=== PATIENT | male | born 1945 | race Caucasian/White ===

== ENCOUNTER 2017-11-13 17:28 | Emergency (ER) | payer OTHER ==
--- OUTSIDE RECORDS SUMMARY | 2017-11-13 17:31 | XMS REPORT ---
:1945 Author Organization eClinicalWorks Care Team Providers Name Role Phone Home De La Cruz Provider Role Unavailable Allergies No Known Allergies Problems Problem Type Condition Code Onset Dates Condition Status Assessment Need for home health care Z74.2 Active Assessment Health half-way, active care Z78.9 Active coordination Assessment Gastrointestinal hemorrhage, K92.2 Active unspecified gastrointestinal hemorrhage type Assessment Thoracic aortic aneurysm without I71.2 Active rupture Problem Thoracic aortic aneurysm without I71.2 Active rupture Problem Hypercoagulable state D68.59 Active Assessment Chronic obstructive pulmonary J44.9 Active disease Problem Vitamin B 12 deficiency E53.8 Active Problem Chronic back pain M54.9 Active Problem 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 intervertebral disc Problem Benign hypertrophy of prostate N40.0 Active Problem Depression with anxiety F41.8 Active Problem Hemiplegia and hemiparesis I69.854 Active following other cerebrovascular disease affecting left non-dominant side Problem Cerebrovascular accident I63.9 Active Problem 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 Problem 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 Problem 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 Problem Generalized weakness R53.1 Active Problem Gastrointestinal hemorrhage, K92.2 Active unspecified gastrointestinal hemorrhage type Problem Memory loss R41.3 Active Problem Anticoagulated Z79.01 Active Assessment Hyperlipidemia, mixed E78.2 Active Problem Physical debility R53.81 Active Problem Aortic valve stenosis I35.0 Active Assessment Insomnia G47.00 Active Problem H/O TIA (transient ischemic attack) Z86.73 Active and stroke Assessment 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 Problem Aortic aneurysm, abdominal I71.4 Active Assessment Depression with anxiety F41.8 Active Problem Nicotine dependence F17.200 Active Assessment H/O TIA (transient ischemic attack) Z86.73 Active and stroke Problem H/O fall Z91.81 Active Assessment Aortic aneurysm, abdominal I71.4 Active Problem Occlusion and stenosis of carotid I65.29 Active artery Assessment Hypercoagulable state D68.59 Active Problem Insomnia G47.00 Active Assessment Peripheral vascular disease I73.9 Active Problem Tremor R25.1 Active Assessment Benign essential HTN I10 Active Problem Peripheral vascular disease I73.9 Active Assessment Physical debility R53.81 Active Problem Hyperlipidemia, mixed E78.2 Active Assessment Generalized weakness R53.1 Active Problem Chronic obstructive pulmonary J44.9 Active disease Problem Vitamin D deficiency E55.9 Active Problem Benign essential HTN I10 Active Medications Medication Code Code Instructions Start End Status Dosage System Date Date ProAir HFA [facility] 61341762275 108 (90 Base) Active 2 puffs as MCG/ACT needed Inhalation every 6 hrs Prilosec [facility] 98473281095 20 MG Orally Active 1 capsule Once a day Lipitor [facility] 99620420908 10 MG Orally Active 1 tablet Once a day Vitamin D3 [facility] 96806751726 400 UNIT Orally Active 2 tablets Once a day Aspir-81 [facility] 42700256252 81 MG Orally Active 1 tablet Once a day Topamax [facility] 43449696143 25 MG Orally Active 1 tablet Once a day Breo Ellipta [facility] 84882075688 200-25 MCG/INH Active 1 puff Inhalation Once a day Lisinopril [facility] 49569815306 40 MG Orally Active 1 tablet Once a day Warfarin Sodium [facility] 00321447288 7.5 MG Orally Active 1 tablet Once a day Clonidine HCl [facility] 24782342429 0.1 MG Orally Active 1 tablet Twice a day at bedtime Amitriptyline HCl [facility] 30465585592 50 MG Orally Active 1 tablet Once a day Zanaflex [facility] 98415225810 4 MG Orally Active 1 tablet Three times a as needed day Primidone [facility] 91872684628 250 MG Orally Active 1 tablet Three times a day Norvasc [facility] 42745674444 5 MG Orally Active 1 tablet Once a day Results No Known Results Summary Purpose eClinicalWorks Submission
--- OUTSIDE RECORDS SUMMARY | 2017-11-13 17:31 | XMS REPORT ---
:1945 Author Organization eClinicalWorks Care Team Providers Name Role Phone Home De La Cruz Provider Role Unavailable Allergies No Known Allergies Problems Problem Type Condition Code Onset Dates Condition Status Assessment Benign essential HTN I10 Active Problem Thoracic aortic aneurysm without I71.2 Active rupture Problem Hypercoagulable state D68.59 Active Problem Vitamin B 12 deficiency E53.8 Active [...] loss R41.3 Active Problem Anticoagulated Z79.01 Active Problem Physical debility R53.81 Active Problem Aortic valve stenosis I35.0 Active Problem H/O TIA (transient ischemic attack) Z86.73 Active and stroke Problem Aortic aneurysm, abdominal I71.4 Active Problem Nicotine dependence F17.200 Active Problem H/O fall Z91.81 Active Problem Occlusion and stenosis of carotid I65.29 Active artery Problem Insomnia G47.00 Active Problem Tremor R25.1 Active Problem Peripheral vascular disease I73.9 Active Problem Hyperlipidemia, mixed E78.2 Active Problem Chronic obstructive pulmonary J44.9 Active disease Problem Vitamin D deficiency E55.9 Active Problem Benign essential HTN I10 Active Medications Medication Code System Code Instructions Start Date End Date Status Dosage Lisinopril [facility] 39129314966 40 MG Orally Once Active 1 tablet a day Results No Known Results Summary Purpose eClinicalWorks Submission
--- OUTSIDE RECORDS SUMMARY | 2017-11-13 17:31 | XMS REPORT | Clinical Summary ---
:1945 Author Organization [facility] Address [address] [place] [address] Phone Care Team Providers Name Role Phone Unavailable Primary Care Provider Unavailable Allergies Not on File Current Medications Not on file Active Problems Not on file Encounters Date Type Specialty Care Team Description 11/10/2017 Outside Orders Central Scheduling Christian Hdz Nonrheumatic aortic MD Rik valve stenosis (Primary Dx) after 11/12/2016 Social History Tobacco Use Types Packs/Day Years Used Date Never Assessed Sex Assigned at Date Recorded Not on file Last Filed Vital Signs Not on file Plan of Treatment Date Type Specialty Care Team Description 11/19/2017 Appointment Radiology Christian Hdz MD [address] [facility] [address] [place] [address] [phone] 11/19/2017 Appointment Radiology Christian Hdz MD [address] [facility] [address] [place] [address] [phone] Results Not on fileafter 11/12/2016
[2017-11-13 19:23] LABS: Absolute Lymphocytes (CBC) 0.9 K/uL (0.7-4.9); Absolute Monocytes 0.6 K/uL (0.1-1.3); Basophils % 1.3 % (0-1.3); Eosinophils % 7.1 % (0-4.4); Hematocrit 22.2 % (39.6-49.0); Lymphocytes % 15.2 % (15.3-44.8); MCV 75.5 fL (80-100); MPV 7.2 fL (7.6-11.3); Monocytes % 9.3 % (3.3-12.3); RBC Red Blood Cell Count 2.95 M/uL (4.33-5.43)
[2017-11-13] MEDS ORDERED: NA CHLORIDE 0.9% 250 ML ONE (22:45)
[2017-11-14] MEDS ORDERED: NA CHLORIDE 0.9% 250 ML ONE (00:37)
--- NOTE | 2017-11-14 02:49 | ER ---
Nurse's Notes [facility] Name: Pineda Mckeon Age: 72 yrs Sex: Male : 1945 Arrival Date: 11/13/2017 Time: 17:29 Bed 15 Private MD: Hoem De La Cruz Diagnosis: Anemia, unspecified Presentation: 11/13 17:43 Presenting complaint: Patient states: I have had to receive 4 transfusions in the last la1 4 months and my hgb is 7.2. I am being worked up by GI but they have not found anything yet. Transition of care: patient was not received from another setting of care. Onset of symptoms was November 13, 2017. Care prior to arrival: None. 17:43 Method Of Arrival: Ambulatory la1 17:43 Acuity: NORY 3 la1 Historical: - Allergies: 17:45 No Known Allergies; la1 - PMHx: 17:45 AAA; Bypass Bilateral Legs; clotting disorder; COPD; CVA; Hypertension; Right Arm; TIA; la1 - Immunization history:: Adult Immunizations up to date. - Social history:: Smoking status: Patient/guardian denies using tobacco. Screenin:23 Abuse screen: Denies threats or abuse. Nutritional screening: No deficits noted. kb1 Tuberculosis screening: No symptoms or risk factors identified. Fall Risk Gait- Weak (10 pts.). Assessment: 19:23 Reassessment: States has been having blood transfusions about every 2 weeks, has had kb1 four previous transfusions. States went to PCP and HGB was low again. Sent to ER for blood transfusion. General: Appears in no apparent distress. Behavior is calm, cooperative. Pain: Denies pain. Neuro: Level of Consciousness is awake, alert, obeys commands, Oriented to person, place, time, situation. Cardiovascular: Patient's skin is warm and dry. Respiratory: Reports shortness of breath on exertion Airway Respiratory effort is even, unlabored, Respiratory pattern is regular, symmetrical, Breath sounds are clear. GI: No signs and/or symptoms were reported involving the gastrointestinal system. : No signs and/or symptoms were reported regarding the genitourinary system. 20:22 Reassessment: Patient appears in no apparent distress at this time. Patient and/or kb1 family updated on plan of care and expected duration. Pain level reassessed. Patient is alert, oriented x 3, equal unlabored respirations, skin warm/dry/pink. 20:59 Reassessment: Blood consent signed. kb1 21:30 Reassessment: Patient appears in no apparent distress at this time. Patient and/or kb1 family updated on plan of care and expected duration. Pain level reassessed. Patient is alert, oriented x 3, equal unlabored respirations, skin warm/dry/pink. Notified awaiting blood to be ready. 21:45 Reassessment: Per Liam RUGBY LEAGUE FOOTBALLER, no post transfusion blood needed. kb1 22:35 Reassessment: Patient appears in no apparent distress at this time. Patient and/or kb1 family updated on plan of care and expected duration. Pain level reassessed. Patient is alert, oriented x 3, equal unlabored respirations, skin warm/dry/pink. Blood Products started. 11/14 00:18 Reassessment: Patient appears in no apparent distress at this time. Patient and/or kb1 family updated on plan of care and expected duration. Pain level reassessed. Patient is alert, oriented x 3, equal unlabored respirations, skin warm/dry/pink. First unit of blood transfused. Notified awaiting second unit. 02:56 Reassessment: Patient appears in no apparent distress at this time. Patient and/or kb1 family updated on plan of care and expected duration. Pain level reassessed. Patient is alert, oriented x 3, equal unlabored respirations, skin warm/dry/pink. 03:05 Reassessment: Second blood transfusion complete. kb1 Vital Signs: 11/13 17:45 BP 137 / 81; Pulse 78; Resp 19; Temp 98.3(TE); Pulse Ox 100% on R/A; Weight 80.29 kg; la1 Height 5 ft. 7 in. (170.18 cm); 19:23 BP 141 / 71; Pulse 77; Resp 18; Pulse Ox 100% ; kb1 20:23 BP 139 / 80; Pulse 74; Resp 18; Pulse Ox 99% ; kb1 21:31 BP 138 / 73; Pulse 77; Resp 18; Pulse Ox 97% ; kb1 22:54 kb1 11/14 00:19 BP 121 / 86; Pulse 82; Resp 18; Pulse Ox 95% ; kb1 02:56 kb1 02:56 BP 148 / 77; Pulse 75; Resp 18; Temp 98.6; Pulse Ox 99% ; kb1 11/13 17:45 Body Mass Index 27.72 (80.29 kg, 170.18 cm) la1 11/13 22:54 See Blood Transfusion Flowsheet kb1 11/14 02:56 See blood transfusion flow sheet kb1 ED Course: 11/13 17:29 Patient arrived in ED. as 17:29 Home De La Cruz DO is Private Physician. as 17:44 Triage completed. la1 17:45 Arm band placed on left wrist. la1 18:00 Patient has correct armband on for positive identification. Bed in low position. Call kb1 light in reach. Side rails up X2. phototypesetting equipment monitor on. Pulse ox on. NIBP on. 18:49 Liam Hernandez NP is PHCP. pm1 18:49 Lucio Dickson MD is Attending Physician. pm1 18:51 Ngozi Romano RN is Primary Nurse. kb1 19:23 No provider procedures requiring assistance completed. Inserted saline lock: 20 gauge kb1 in right antecubital area, using aseptic technique. Blood collected. 19:25 Notified Nurse Practitioner and/or Physician Clinical Reimbursement Specialist of a critical lab result(s), la1 HGB-7.1. 04 02:48 Home De La Cruz DO is Referral Physician. cp 03:11 IV discontinued, intact, bleeding controlled, No redness/swelling at site. Pressure kb1 dressing applied. Administered Medications: No medications were administered Outcome: 02:48 Discharge ordered by MD. cp 03:12 Discharged to home ambulatory, via wheelchair, with family. kb1 03:12 Condition: improved 03:12 Discharge instructions given to patient, Instructed on discharge instructions, follow up and referral plans. Demonstrated understanding of instructions, follow-up care. 03:12 Patient left the ED. kb1 Signatures: Gabbie Vera Lee, RN RN la1 Lucio Sawant PA PA cp Liam Hernandez NP [employer]ER pm1 Ngozi Romano RN RN kb1
--- NOTE | 2017-11-14 02:49 | EDPHYS ---
Physician Documentation [facility] Name: Pineda Mckeon Age: 72 yrs Sex: Male : 1945 Arrival Date: 11/13/2017 Time: 17:29 Bed 15 Private MD: Jono [facility] ED Physician Lucio Dickson HPI: 11/13 20:00 This 72 yrs old Male presents to ER via Ambulatory with complaints of pm1 Abnormal Lab Results - Needs Transfusion. 20:00 Patient with labs drawn today and was told to report to the emergency department for a pm1 blood transfusion. Hgb was 7.2. Patient without a know source of bleeding. Patient is currently under the care of Dr. Valadez, Dr. Andrews, Dr De La Cruz, DR Coffey. Patient has had multiple blood transfusions for anemia. Dr. Valadez has performed an EGD and it was negative. Colonoscopy is pending. Dr. Andrews referred the patient to Dr. Coffey who is going to replace a heart valve which Dr. Andrews believes is causing the anemia. The valve replacement is scheduled for this Thursday and the patient has been waiting for this procedure for 1 month. . Patient currently denies any chest pain or shortness of breath. No dizziness and denies any blood or dark stool . Historical: - Allergies: 17:45 No Known Allergies; la1 - PMHx: 17:45 AAA; Bypass Bilateral Legs; clotting disorder; COPD; CVA; Hypertension; Right Arm; TIA; la1 - Immunization history:: Adult Immunizations up to date. - Social history:: Smoking status: Patient/guardian denies using tobacco. ROS: 20:00 Constitutional: Negative for fever, chills, and weight loss, Eyes: Negative for injury, pm1 pain, redness, and discharge, ENT: Negative for injury, pain, and discharge, Neck: Negative for injury, pain, and swelling, Cardiovascular: Negative for chest pain, palpitations, and edema, Respiratory: Negative for shortness of breath, cough, wheezing, and pleuritic chest pain, Abdomen/GI: Negative for abdominal pain, nausea, vomiting, diarrhea, and constipation, Back: Negative for injury and pain, MS/Extremity: Negative for injury and deformity, Skin: Negative for injury, rash, and discoloration. 20:00 Neuro: Positive for weakness, Negative for altered mental status, dizziness, headache. Exam: 20:00 Constitutional: This is a well developed, well nourished patient who is awake, alert, pm1 and in no acute distress. Head/Face: Normocephalic, atraumatic. ENT: Nares patent. No nasal discharge, no septal abnormalities noted. Tympanic membranes are normal and external auditory canals are clear. Oropharynx with no redness, swelling, or masses, exudates, or evidence of obstruction, uvula midline. Mucous membranes moist. 20:00 Neck: Trachea midline, no thyromegaly or masses palpated, and no cervical lymphadenopathy. Supple, full range of motion without nuchal rigidity, or vertebral point tenderness. No Meningismus. Chest/axilla: Normal chest wall appearance and motion. Nontender with no deformity. No lesions are appreciated. Cardiovascular: Regular rate and rhythm with a normal S1 and S2. No gallops, murmurs, or rubs. Normal PMI, no JVD. No pulse deficits. Respiratory: Lungs have equal breath sounds bilaterally, clear to auscultation and percussion. No rales, rhonchi or wheezes noted. No increased work of breathing, no retractions or nasal flaring. Abdomen/GI: Soft, non-tender, with normal bowel sounds. No distension or tympany. No guarding or rebound. No evidence of tenderness throughout. Back: No spinal tenderness. No costovertebral tenderness. Full range of motion. 20:00 MS/ Extremity: Pulses equal, no cyanosis. Neurovascular intact. Full, normal range of motion. 20:00 Eyes: Periorbital structures: appear normal, Pupils: no acute changes, Extraocular movements: no acute changes, Conjunctiva: pale, bilaterally. 20:00 Skin: Appearance: normal except for affected area, Color: pale. 20:00 Neuro: Orientation: is normal, Motor: is normal, moves all fours. Vital Signs: 17:45 BP 137 / 81; Pulse 78; Resp 19; Temp 98.3(TE); Pulse Ox 100% on R/A; Weight 80.29 kg; la1 Height 5 ft. 7 in. (170.18 cm); 19:23 BP 141 / 71; Pulse 77; Resp 18; Pulse Ox 100% ; kb1 20:23 BP 139 / 80; Pulse 74; Resp 18; Pulse Ox 99% ; kb1 21:31 BP 138 / 73; Pulse 77; Resp 18; Pulse Ox 97% ; kb1 22:54 [facility] 11/14 00:19 BP 121 / 86; Pulse 82; Resp 18; Pulse Ox 95% ; kb1 02:56 kb1 02:56 BP 148 / 77; Pulse 75; Resp 18; Temp 98.6; Pulse Ox 99% ; [facility] 11/13 17:45 Body Mass Index 27.72 (80.29 kg, 170.18 cm) [facility] 11/13 22:54 See Blood Transfusion Flowsheet [facility] 11/14 02:56 See blood transfusion flow sheet kb1 MDM: 11/13 18:49 Patient medically screened. pm1 20:25 Data reviewed: vital signs. Data interpreted: Pulse oximetry: on room air is 99 %. pm1 Interpretation: normal. Counseling: I had a detailed discussion with the patient and/or guardian regarding: lab results. 20:40 ED course: Patient does not wish to be hospitalized. The last time the patient was pm1 hospitalized he was transfused with three units of blood and discharged the next day. Patient would like the transfusion of blood in the ER and to be discharged home. 11/13 19:01 Order name: CBC with Diff; Complete Time: 20:18 pm1 11/13 19:01 Order name: BMP; Complete Time: 20:18 pm1 11/13 19:01 Order name: Type And Screen [facility] 11/13 20:11 Order name: Antibody Identification [facility] 11/13 20:43 Order name: ABO rpt [facility] 11/13 20:43 Order name: Packed RBCs (Additional Unit) [facility] 11/13 19:01 Order name: IV Saline Lock; Complete Time: 20:10 pm1 Administered Medications: No medications were administered Disposition: 11/14/17 02:48 Discharged to Home. Impression: Anemia, unspecified. - Condition is Stable. - Discharge Instructions: Anemia, Nonspecific, Blood Transfusion Information. - Medication Reconciliation Form, Thank You Letter, Antibiotic Education, Prescription Opioid Use form. - Follow up: Emergency Department; When: As needed; Reason: Worsening of condition. Follow up: Home De La Cruz; When: 2 - 3 days; Reason: Recheck today's complaints, Continuance of care, Re-evaluation by your physician. - Problem is new. - Symptoms have improved. Addendum: 11/16/2017 08:47 Co-signature as Attending Physician, Lucio Dickson MD I agree with the assessment and c cobos plan of care. Signatures: Dispatcher [employer] Lucio Dumont MD MD cha Attema, Lee, RN RN la1 Lucio Sawant PA PA cp Marinas, Patrick, CREDIT UNION MANAGER CREDIT UNION MANAGER pm1 Ngozi Romano, RN RN kb1
[2017-11-14 03:22] VITALS: BP 148/77; TEMP 98.6; O2SAT 99
== END 2017-11-14 03:12 | disposition home or self-care (01) ==
LOC: ER 17:28
PROC: 30233N1 Transfusion of Nonautologous Red Blood Cells into Peripheral Vein, Percutaneous Approach (ICD-10-PCS; principal; 2017-11-14)
DX: D64.9 Anemia, unspecified (principal); I10 Essential (primary) hypertension
CPT/HCPCS: 36415; 36430; 80048; 85025; 86850; 86870; 86900; 86901; 86922 ×2; 99284; P9016 ×2

== ENCOUNTER 2017-12-01 20:15 | Emergency (ER) | payer OTHER ==
--- OUTSIDE RECORDS SUMMARY | 2017-12-01 20:17 | XMS REPORT ---
:1945 Author Organization eClinicalWorks Care Team Providers Name Role Phone Home De La Cruz Provider Role Unavailable Allergies No Known Allergies Problems Problem Type Condition Code Onset Dates Condition Status Assessment Need for home health care Z74.2 Active Assessment Health snf, active care Z78.9 Active coordination Assessment Gastrointestinal [...] Status Dosage System Date Date ProAir HFA [facility] [id number] 108 (90 Base) Active 2 puffs as MCG/ACT needed Inhalation every 6 hrs Prilosec [facility] 43818085613 20 MG Orally Active 1 capsule Once a day Lipitor [facility] 65532427811 10 MG Orally Active 1 tablet Once a day Vitamin D3 [facility] 59032891080 400 UNIT Orally Active 2 tablets Once a day Aspir-81 [facility] 25729876962 81 MG Orally Active 1 tablet Once a day Topamax [facility] 07012802136 25 MG Orally Active 1 tablet Once a day Breo Ellipta [facility] 14216535073 200-25 MCG/INH Active 1 puff Inhalation Once a day Lisinopril [facility] 90815176333 40 MG Orally Active 1 tablet Once a day Warfarin Sodium [facility] 67004132257 7.5 MG Orally Active 1 tablet Once a day Clonidine HCl [facility] 10239671032 0.1 MG Orally Active 1 tablet Twice a day at bedtime Amitriptyline HCl [facility] 67985790134 50 MG Orally Active 1 tablet Once a day Zanaflex [facility] 94017256280 4 MG Orally Active 1 tablet Three times a as needed day Primidone [facility] 42935753829 250 MG Orally Active 1 tablet Three times a day Norvasc [facility] 32222308637 5 MG Orally Active 1 tablet Once a day Results No Known Results Summary Purpose eClinicalWorks Submission
--- OUTSIDE RECORDS SUMMARY | 2017-12-01 20:17 | XMS REPORT ---
:1945 [facility] Address [address] [place] [address] Dr. Silva. [address] [place] [address] Care Team Providers Name Role Phone LAURATRACYAUBREY MELI COLILER Unavailable Unavailable Problems This patient has no known problems. Allergies, Adverse Reactions, Alerts This patient has no known allergies or adverse reactions. Medications This patient has no known medications. Results Test Description Test Time Test Comments Text Results Atomic Results Result Comments CT, CTA ABDOMEN 2017-11-27 11:56:00 Addendum BeginsREPORT STATUS:A Addendum: The images were reviewed with Dr. Hdz. There is a missing dictation, specifically, despite the aortic bypass surgery the la posta left common iliac artery is still patent with retrograde filling from the left external iliac artery, with aneurysmal dilation identified. Image 466, it measures approximately 4.3 x 4.2 cm in diameter. Some intraluminal thrombus is seen. This is the left common iliac artery. The left internal iliac artery is also patent, with calcification present. Signed: Juwan Echols MDReport Verified Date/Time: 11/27/2017 11:56:33 Reading Location: [place] [address] Cardiology MRIAddendum EndsAddendum BeginsREPORT STATUS:A ADDENDUM: Study reviewed by radiology. Agree with the nonvascular findings as described below. See guidelines below regarding 5 mm pulmonary nodule. FLEISCHNER SOCIETY GUIDELINES (2017): Recommendations apply to newly detected indeterminate nodules found incidentally in patients 35 years of age or older. Risk factors include smoking history; history of lung cancer in first degree relative; exposure to radon, asbestos, or uranium. Low-risk patient:Nodule size:<6 mm: No follow-up needed.6-8 mm: CT at 6-12 months, then consider CT at 18-24 months. >8 mm: Consider CT at 3 months, PET-CT, or biopsy. High-risk patient:Nodule size:<6 mm: Optional CT at 12 months.6-8 mm: CT at 6-12 months, then CT at 18-24 months. >8 mm: Consider CT at 3 months, PET-CT, or biopsy. Signed: Adryan Barroweport Verified Date/Time: 11/26/2017 18:03:42 Reading Location: [place] [address] Angio Body Reading RoomAddendum EndsFINAL REPORT CT angiography of the thoracoabdominal aorta and pelvic arteries, 26 November 2017 INDICATION: This is a 72 year old male with aortic stenosis presents for preprocedure TAVR assessment. There is a clinical concern of aortic aneurysm. This study is performed in an attempt to avoid an invasive procedure. TECHNIQUE: Spiral acquisition before and during intravenous contrast administration using a Luke multidetector CT scanner. Images were obtained before and during the dynamic passage of intravenous contrast material. Multi-planar 3-D volume-rendering reconstruction was performed using an independent workstation interactively by the interpreting physician as well as the 3-D specialist for optimal visualization of the thoracoabdominal aorta, the pelvic arteries as well as its proximal branches. Please refer to the contrast sheet scanned in the EPIC system for the amount and route of contrast given. This exam was performed according to our departmental dose-optimisation programme, which includes automated exposure control, adjustment of the mA and/or kV according to patient size and/or use of iterative reconstruction technique. Dose modulation, iterative reconstruction, and/or weight based adjustment of the mA/kV was utilized to reduce the radiation dose to as low as reasonably achievable. FINDINGS: VASCULAR: The central pulmonary artery is normal in calibre. There is no evidence of central pulmonary artery embolism. The cardiac chambers demonstrate normal atrioventricular and ventriculoarterial concordance, and systemic and pulmonary venous return. The left ventricle is normal in size. Left atrial enlargement is identified. Minimal mitral annular calcification seen in the anterior mitral valve annulus. Coronary artery origins are normal and coronary artery calcification is seen in all three coronary territories. Patient has a diagnosis of aortic stenosis. The aortic valve is tricuspid. Agatston score is 4525. Aortic valve area is 88 sq mm. The location of aortic valvular calcification can be seen in reformatted data set sent to PACS. Regarding the aorta, there is mild calcification seen in the aortic root, and scattered along the ascending thoracic aorta. The transverse arch and descending thoracic aorta has calcific and noncalcific atherosclerosis identified. The descending thoracic aorta is tortuous. At the level of the distal descending thoracic aorta, by multiplanar reformation, the maximum diameter is approximately 5.4 x 5.2 cm in diameter. See snapshot for details. There is only minimal peripheral thrombus identified. There is mild prominence identified at the renal abdominal aorta, with diameter of approximately 3.3 cm. Patient is post infrarenal aorto right common iliac, and left external iliac bypass graft. No proximal anastomotic stenosis is identified. No distal left anastomotic stenosis identified. The left external iliac artery and the left common femoral arteries moderate diffuse calcific atherosclerosis identified, extending into the left SFA. There is moderate diffuse calcific and noncalcific atherosclerosis identified in the right external iliac artery and thereafter, the right common femoral artery is occluded and the visualized right SFA is also not enhanced by contrast indicating occlusion. Patient could be post bypass surgery in the right lower extremity, incompletely assessed. See measurements below for details. The coeliac axis, SMA, are patent. Single left and right renal arteries are seen. The right renal artery with eccentric calcific atherosclerosis identified with no stenosis seen. Calcification is seen in the takeoff of the left renal artery with ykhu-kr-erlltdoc stenosis identified. Arch vessel branching pattern is normal and the visualised arch vessels are seen to be widely patent proximally. The left vertebral artery arises early from the transverse arch, anterior to the takeoff of the left subclavian artery, common variant. The right vertebral artery slightly larger in size than the left vertebral artery. The left subclavian artery, at image 32, measures 8 mm in diameter and the right subclavian artery, image 31, measures 8 mm in diameter. Dimensions that may be helpful for TAVR as follows: Mild calcification is seen along the aortic root and scattered along the ascending thoracic aorta. The major and minor aortic annulus diameter measures 26.8 and 21.5 mm, respectively. The aortic annulus perimeter measured 78 mm and the cross-sectional area measures 472 mm2. The aortic annulus diameter at the traditional LVOT and coronal LVOT measures 20.4 and 27.7 mm, respectively. For reference purpose, per HIGGINS S3 brochure, recommendation are as follows: CT area between 273 to 345 mm2 (20 mm valve); 338 to 430 mm2 (23 mm valve); 430 to 546 mm2 (26 mm valve); 540 to 683 mm2 (29 mm valve). For reference purpose, per [employer] R brochure, recommendation are as follows: CT perimeter between 56.5-62.8 mm (23 mm valve); 62.8-72.3 mm (26 mm valve); 72.3-81.7 mm (29 mm valve); and 81.7-94.2. mm (34 mm valve). Agatston Score is 4525. By planimetry, aortic valve area is 88 sq mm. The sinus of Valsalva height to the takeoff of the coronary artery ostium, RCC (diastole): 14.0 mmThe sinus of Valsalva height and the takeoff of the coronary artery ostium, LCC (diastole): 14.8 mm The sinus of Valsalva diameter, RCC (diastole): 32.0 mmThe sinus of Valsalva diameter, LCC (diastole): 32.6 mmThe sinus of Valsalva diameter, NCC (diastole): 34.6 mm The sinotubular junction measures approximately 28.8 x 29.8 mm. The aortic root angulation measures 49.3 degrees. The minimal and perpendicular abdominal aortic diameter measure 24.2 and 25.0 mm, respectively at image 362. There is no evidence of thoracoabdominal aortic aneurysm or stent placement present. The minimum and the perpendicular left common iliac artery measures 11.2 and 12.0 mm of the left iliac limb. The minimum and the perpendicular left external iliac artery measures 5.8 and 6.2 mm, respectively with mild tortuosity and mixture of mild to moderate noncalcific and calcific atherosclerosis present. The minimum and the perpendicular left femoral artery measures 7.6 and 8.2 mm, respectively with mild tortuosity and lpoi-oz-rpspwuea calcific atherosclerosis present. Right iliac limb is patent. However, at least moderate diffuse disease is seen in the right external iliac artery, and the minimum luminal diameter is approximately 3.0 x 3.0 mm, with a mixture of both calcific and noncalcific atherosclerosis present. See snapshot for details. 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 NONVASCULAR: The visualised thyroid gland appears unremarkable. The chest wall and mediastinum has no acute abnormality identified. No pericardial effusion is seen. Small lymph nodes are seen as well as calcified lymph nodes, for example in the right hilum and the left hilum indicating prior granulomatous disease. In the lung windows, no obvious endobronchial lesion is seen, and no pleural effusions identified. Minimal dependent changes are seen. Substantial centrilobular emphysematous changes are identified. In the right lung, image 212, a 5 mm nodule is identified in the right lower lobe. Statistically, this most likely represent noncalcified granuloma, however, in the setting of underlying emphysematous changes, one can consider 6-12 month follow-up to document stability, if no prior examination is available for comparison. In the abdomen, the liver and spleen appears unremarkable. The liver edge is smooth. No abnormal enhancing structure is identified. Calcified granuloma is identified in the liver and the spleen. The adrenal glands are not enlarged. The gallbladder is not well appreciated. The pancreas appears unremarkable. No acute renal pathology is seen and no hydronephrosis or perirenal fluid collection is identified. Bowel is not well assessed by CT angiography as enteric contrast not given. No obvious bowel dilation is identified. Bilateral fat-containing inguinal hernia is noted, left greater than right. A degree of diastases recti is noted. No free air or free fluid seen abdomen and pelvis. No significant retroperitoneal adenopathy is seen. Bilateral fat-containing inguinal hernia is noted, left greater than right. The prostate gland has punctate calcification identified. The bladder appears unremarkable. No acute bony pathology is seen. Some degenerative changes are noted. CONCLUSIONS: 1. Patient has a diagnosis of aortic stenosis. Aortic valve is tricuspid. Agatston score is 4525. Aortic valve area is 88 sq mm. Minimal mitral annular calcification is identified in the anterior and posterior mitral valve annulus. Mild calcific atherosclerosis seen in the aortic root and ascending thoracic aorta. 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 Mild dilation is identified in the renal level, with maximum diameter measure approximately 3.2 cm in diameter. The radiology department requires follow up duration to be dictated, however, the ordering physician is the [employer] ASSURANCE DIRECTOR of the [facility] and therefore no recommendation would be necessary. Patient is post aorto left external iliac and right common iliac bypass graft. The graft itself is patent. Moderate diffuse calcification is seen in the left external iliac and left common femoral artery. Significant disease is seen in the right external iliac artery with moderate calcific and noncalcific atherosclerosis and minimum diameter of 3 x 3 mm. The right common femoral artery and the right SFA is occluded. The left femoral post would be needed for TAVR purposes. Dimensions that may be helpful for TAVR as described above. 2. No acute pulmonary pathology. No evidence of central pulmonary artery embolism. Evidence of prior granulomatous disease. A 5 mm nodule identified in the right lower lobe that could be followed in 6-12 months time to document stability. 3. Other findings as described above. 4. An addendum will be dictated by the Highway Maintenance Supervisor Radiologist regarding the nonvascular findings. Signed: Juwan Echolseport Verified Date/Time: 11/26/2017 16:25:25 Reading Location: [place] [address] Cardiology MRI , CTA, CHEST 2017-11-27 11:56:00 Addendum BeginsREPORT STATUS:A Addendum: The images were reviewed with Dr. Hdz. There is a missing dictation, specifically, despite the aortic bypass surgery the la posta left common iliac artery is still patent with retrograde filling from the left external iliac artery, with aneurysmal dilation identified. Image 466, it measures approximately 4.3 x 4.2 cm in diameter. Some intraluminal thrombus is seen. This is the left common iliac artery. The left internal iliac artery is also patent, with calcification present. Signed: Juwan Echolsort Verified Date/Time: 11/27/2017 11:56:33 Reading Location: [place] [address] Cardiology MRIAddendum EndsAddendum BeginsREPORT STATUS:A ADDENDUM: Study reviewed by radiology. Agree with the nonvascular findings as described below. See guidelines below regarding 5 mm pulmonary nodule. FLEISCHNER SOCIETY GUIDELINES (2017): Recommendations apply to newly detected indeterminate nodules found incidentally in patients 35 years of age or older. Risk factors include smoking history; history of lung cancer in first degree relative; exposure to radon, asbestos, or uranium. Low-risk patient:Nodule size:<6 mm: No follow-up needed.6-8 mm: CT at 6-12 months, then consider CT at 18-24 months. >8 mm: Consider CT at 3 months, PET-CT, or biopsy. High-risk patient:Nodule size:<6 mm: Optional CT at 12 months.6-8 mm: CT at 6-12 months, then CT at 18-24 months. >8 mm: Consider CT at 3 months, PET-CT, or biopsy. Signed: Adryan Barrow MDReport Verified Date/Time: 11/26/2017 18:03:42 Reading Location: [place] [address] Angio Body Reading RoomAddendum EndsFINAL REPORT CT angiography of the thoracoabdominal aorta and pelvic arteries, 26 November 2017 INDICATION: This is a 72 year old male with aortic stenosis presents for preprocedure TAVR assessment. There is a clinical concern of aortic aneurysm. This study is performed in an attempt to avoid an invasive procedure. TECHNIQUE: Spiral acquisition before and during intravenous contrast administration using a Luke multidetector CT scanner. Images were obtained before and during the dynamic passage of intravenous contrast material. Multi-planar 3-D volume-rendering reconstruction was performed using an independent workstation interactively by the interpreting physician as well as the 3-D specialist for optimal visualization of the thoracoabdominal aorta, the pelvic arteries as well as its proximal branches. Please refer to the contrast sheet scanned in the EPIC system for the amount and route of contrast given. This exam was performed according to our departmental dose-optimisation programme, which includes automated exposure control, adjustment of the mA and/or kV according to patient size and/or use of iterative reconstruction technique. Dose modulation, iterative reconstruction, and/or weight based adjustment of the mA/kV was utilized to reduce the radiation dose to as low as reasonably achievable. FINDINGS: VASCULAR: The central pulmonary artery is normal in calibre. There is no evidence of central pulmonary artery embolism. The cardiac chambers demonstrate normal atrioventricular and ventriculoarterial concordance, and systemic and pulmonary venous return. The left ventricle is normal in size. Left atrial enlargement is identified. Minimal mitral annular calcification seen in the anterior mitral valve annulus. Coronary artery origins are normal and coronary artery calcification is seen in all three coronary territories. Patient has a diagnosis of aortic stenosis. The aortic valve is tricuspid. Agatston score is 4525. Aortic valve area is 88 sq mm. The location of aortic valvular calcification can be seen in reformatted data set sent to PACS. Regarding the aorta, there is mild calcification seen in the aortic root, and scattered along the ascending thoracic aorta. The transverse arch and descending thoracic aorta has calcific and noncalcific atherosclerosis identified. The descending thoracic aorta is tortuous. At the level of the distal descending thoracic aorta, by multiplanar reformation, the maximum diameter is approximately 5.4 x 5.2 cm in diameter. See snapshot for details. There is only minimal peripheral thrombus identified. There is mild prominence identified at the renal abdominal aorta, with diameter of approximately 3.3 cm. Patient is post infrarenal aorto right common iliac, and left external iliac bypass graft. No proximal anastomotic stenosis is identified. No distal left anastomotic stenosis identified. The left external iliac artery and the left common femoral arteries moderate diffuse calcific atherosclerosis identified, extending into the left SFA. There is moderate diffuse calcific and noncalcific atherosclerosis identified in the right external iliac artery and thereafter, the right common femoral artery is occluded and the visualized right SFA is also not enhanced by contrast indicating occlusion. Patient could be post bypass surgery in the right lower extremity, incompletely assessed. See measurements below for details. The coeliac axis, SMA, are patent. Single left and right renal arteries are seen. The right renal artery with eccentric calcific atherosclerosis identified with no stenosis seen. Calcification is seen in the takeoff of the left renal artery with eshq-am-tsgivttn stenosis identified. Arch vessel branching pattern is normal and the visualised arch vessels are seen to be widely patent proximally. The left vertebral artery arises early from the transverse arch, anterior to the takeoff of the left subclavian artery, common variant. The right vertebral artery slightly larger in size than the left vertebral artery. The left subclavian artery, at image 32, measures 8 mm in diameter and the right subclavian artery, image 31, measures 8 mm in diameter. Dimensions that may be helpful for TAVR as follows: Mild calcification is seen along the aortic root and scattered along the ascending thoracic aorta. The major and minor aortic annulus diameter measures 26.8 and 21.5 mm, respectively. The aortic annulus perimeter measured 78 mm and the cross-sectional area measures 472 mm2. The aortic annulus diameter at the traditional LVOT and coronal LVOT measures 20.4 and 27.7 mm, respectively. For reference purpose, per HIGGINS S3 brochure, recommendation are as follows: CT area between 273 to 345 mm2 (20 mm valve); 338 to 430 mm2 (23 mm valve); 430 to 546 mm2 (26 mm valve); 540 to 683 mm2 (29 mm valve). For reference purpose, per CoreValve Evolut R brochure, recommendation are as follows: CT perimeter between 56.5-62.8 mm (23 mm valve); 62.8-72.3 mm (26 mm valve); 72.3-81.7 mm (29 mm valve); and 81.7-94.2. mm (34 mm valve). Agatston Score is 4525. By planimetry, aortic valve area is 88 sq mm. The sinus of Valsalva height to the takeoff of the coronary artery ostium, RCC (diastole): 14.0 mmThe sinus of Valsalva height and the takeoff of the coronary artery ostium, LCC (diastole): 14.8 mm The sinus of Valsalva diameter, RCC (diastole): 32.0 mmThe sinus of Valsalva diameter, LCC (diastole): 32.6 mmThe sinus of Valsalva diameter, NCC (diastole): 34.6 mm The sinotubular junction measures approximately 28.8 x 29.8 mm. The aortic root angulation measures 49.3 degrees. The minimal and perpendicular abdominal aortic diameter measure 24.2 and 25.0 mm, respectively at image 362. There is no evidence of thoracoabdominal aortic aneurysm or stent placement present. The minimum and the perpendicular left common iliac artery measures 11.2 and 12.0 mm of the left iliac limb. The minimum and the perpendicular left external iliac artery measures 5.8 and 6.2 mm, respectively with mild tortuosity and mixture of mild to moderate noncalcific and calcific atherosclerosis present. The minimum and the perpendicular left femoral artery measures 7.6 and 8.2 mm, respectively with mild tortuosity and jbcm-eb-fmzqwvpq calcific atherosclerosis present. Right iliac limb is patent. However, at least moderate diffuse disease is seen in the right external iliac artery, and the minimum luminal diameter is approximately 3.0 x 3.0 mm, with a mixture of both calcific and noncalcific atherosclerosis present. See snapshot for details. 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 NONVASCULAR: The visualised thyroid gland appears unremarkable. The chest wall and mediastinum has no acute abnormality identified. No pericardial effusion is seen. Small lymph nodes are seen as well as calcified lymph nodes, for example in the right hilum and the left hilum indicating prior granulomatous disease. In the lung windows, no obvious endobronchial lesion is seen, and no pleural effusions identified. Minimal dependent changes are seen. Substantial centrilobular emphysematous changes are identified. In the right lung, image 212, a 5 mm nodule is identified in the right lower lobe. Statistically, this most likely represent noncalcified granuloma, however, in the setting of underlying emphysematous changes, one can consider 6-12 month follow-up to document stability, if no prior examination is available for comparison. In the abdomen, the liver and spleen appears unremarkable. The liver edge is smooth. No abnormal enhancing structure is identified. Calcified granuloma is identified in the liver and the spleen. The adrenal glands are not enlarged. The gallbladder is not well appreciated. The pancreas appears unremarkable. No acute renal pathology is seen and no hydronephrosis or perirenal fluid collection is identified. Bowel is not well assessed by CT angiography as enteric contrast not given. No obvious bowel dilation is identified. Bilateral fat-containing inguinal hernia is noted, left greater than right. A degree of diastases recti is noted. No free air or free fluid seen abdomen and pelvis. No significant retroperitoneal adenopathy is seen. Bilateral fat-containing inguinal hernia is noted, left greater than right. The prostate gland has punctate calcification identified. The bladder appears unremarkable. No acute bony pathology is seen. Some degenerative changes are noted. CONCLUSIONS: 1. Patient has a diagnosis of aortic stenosis. Aortic valve is tricuspid. Agatston score is 4525. Aortic valve area is 88 sq mm. Minimal mitral annular calcification is identified in the anterior and posterior mitral valve annulus. Mild calcific atherosclerosis seen in the aortic root and ascending thoracic aorta. 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 Mild dilation is identified in the renal level, with maximum diameter measure approximately 3.2 cm in diameter. The radiology department requires follow up duration to be dictated, however, the ordering physician is the [employer] ASSURANCE DIRECTOR of the [facility] and therefore no recommendation would be necessary. Patient is post aorto left external iliac and right common iliac bypass graft. The graft itself is patent. Moderate diffuse calcification is seen in the left external iliac and left common femoral artery. Significant disease is seen in the right external iliac artery with moderate calcific and noncalcific atherosclerosis and minimum diameter of 3 x 3 mm. The right common femoral artery and the right SFA is occluded. The left femoral post would be needed for TAVR purposes. Dimensions that may be helpful for TAVR as described above. 2. No acute pulmonary pathology. No evidence of central pulmonary artery embolism. Evidence of prior granulomatous disease. A 5 mm nodule identified in the right lower lobe that could be followed in 6-12 months time to document stability. 3. Other findings as described above. 4. An addendum will be dictated by the Highway Maintenance Supervisor Radiologist regarding the nonvascular findings. Signed: Juwan Echols MDReport Verified Date/Time: 11/26/2017 16:25:25 Reading Location: [place] [address] Cardiology MRI B-TYPE NATRIURETIC FACTOR (BNP) 2017-11-26 18:03:00 Test Item Value Reference Range Comments B-TYPE NATRIURETIC PEPTIDE (BEAKER) (test exjf=260) 142 pg/mL 0-100 COMPREHENSIVE METABOLIC [id number] 17:56:00 Test Item Value Reference Range Comments TOTAL PROTEIN (BEAKER) 6.8 gm/dL 6.0-8.3 (test takl=736) ALBUMIN (BEAKER) (test 3.9 g/dL 3.5-5.0 viiu=5402) ALKALINE PHOSPHATASE 133 U/L 40-150 (BEAKER) (test fbxc=863) BILIRUBIN TOTAL (BEAKER) 0.4 mg/dL 0.2-1.2 (test gjaf=907) SODIUM (BEAKER) (test 135 meq/L 136-145 kqzg=932) POTASSIUM (BEAKER) (test 4.3 meq/L 3.5-5.1 zaum=608) CHLORIDE (BEAKER) (test 99 meq/L 98-107 ytcn=815) CO2 (BEAKER) (test 26 meq/L 22-29 jvmz=760) BLOOD UREA NITROGEN 6 mg/dL 7-21 (BEAKER) (test ckqd=986) CREATININE (BEAKER) (test 1.14 mg/dL 0.57-1.25 qkeg=306) GLUCOSE RANDOM (BEAKER) 104 mg/dL 70-105 (test eofm=326) CALCIUM (BEAKER) (test 8.9 mg/dL 8.4-10.2 ypsz=900) AST (SGOT) (BEAKER) (test 12 U/L 5-34 lgba=372) ALT (SGPT) (BEAKER) (test 7 U/L 6-55 ocgl=657) EGFR (BEAKER) (test 63 mL/min/1.73 sq m ESTIMATED GFR IS NOT nbei=2090) ACCURATE CREATININE CLEARANCE IN PREDICTING GLOMERULAR FILTRATION RATE. ESTIMATED GFR IS NOT APPLICABLE FOR DIALYSIS PATIENTS. PROTHROMBIN [id number] 17:33:00 Test Item Value Reference Range Comments PROTIME (BEAKER) (test bpzb=106) 16.5 seconds 11.7-14.7 INR (BEAKER) (test qfzm=715) 1.3 <=5.9 RECOMMENDED COUMADIN/WARFARIN INR THERAPY RANGESSTANDARD DOSE: 2.0 - 3.0 Includes: PROPHYLAXIS forvenous thrombosis, systemic embolization; TREATMENT for venous thrombosis and/or pulmonary embolus.HIGH RISK: Target INR is 2.5-3.5 for patients with mechanical heart valves.CBC W/PLT COUNT & AUTO [id number] 17:24:00 Test Item Value Reference Range Comments WHITE BLOOD CELL COUNT (BEAKER) (test hfmr=749) 7.7 K/ L 3.5-10.5 RED BLOOD CELL COUNT (BEAKER) (test erez=537) 3.66 M/ L 4.63-6.08 HEMOGLOBIN (BEAKER) (test abat=602) 9.1 GM/DL 13.7-17.5 HEMATOCRIT (BEAKER) (test gnrj=714) 31.7 % 40.1-51.0 MEAN CORPUSCULAR VOLUME (BEAKER) (test lsko=502) 86.6 fL 79.0-92.2 MEAN CORPUSCULAR HEMOGLOBIN (BEAKER) (test 24.9 pg 25.7-32.2 jqjg=652) MEAN CORPUSCULAR HEMOGLOBIN CONC (BEAKER) (test 28.7 GM/DL 32.3-36.5 untp=013) RED CELL DISTRIBUTION WIDTH (BEAKER) (test 19.5 % 11.6-14.4 rwzb=125) PLATELET COUNT (BEAKER) (test rjvf=187) 243 K/CU MM 150-450 MEAN PLATELET VOLUME (BEAKER) (test oitg=618) 10.0 fL 9.4-12.4 NUCLEATED RED BLOOD CELLS (BEAKER) (test 0 /100 WBC 0-0 tsum=609) NEUTROPHILS RELATIVE PERCENT (BEAKER) (test 73 % jlvs=333) LYMPHOCYTES RELATIVE PERCENT (BEAKER) (test 13 % tnux=726) MONOCYTES RELATIVE PERCENT (BEAKER) (test 9 % dicc=224) EOSINOPHILS RELATIVE PERCENT (BEAKER) (test 4 % kdwz=391) BASOPHILS RELATIVE PERCENT (BEAKER) (test 1 % ddrz=803) NEUTROPHILS ABSOLUTE COUNT (BEAKER) (test 5.64 K/ L 1.78-5.38 zoxs=740) LYMPHOCYTES ABSOLUTE COUNT (BEAKER) (test 0.98 K/ L 1.32-3.57 piqa=776) MONOCYTES ABSOLUTE COUNT (BEAKER) (test 0.69 K/ L 0.30-0.82 nphy=911) EOSINOPHILS ABSOLUTE COUNT (BEAKER) (test 0.30 K/ L 0.04-0.54 wrbf=645) BASOPHILS ABSOLUTE COUNT (BEAKER) (test 0.05 K/ L 0.01-0.08 dnuf=350) IMMATURE GRANULOCYTES-RELATIVE PERCENT (BEAKER) 0 % 0-1 (test llkj=5552) [id number] 12:34:00 Test Item Value Reference Range Comments POC-CREATININE (BEAKER) 1.1 mg/dL 0.6-1.3 TESTED AT [facility] [address] (test njsc=6980) [facility] [address] POC-EGFR (BEAKER) (test 65 mL/min/1.73M2 jnjs=5331)
--- OUTSIDE RECORDS SUMMARY | 2017-12-01 20:17 | XMS REPORT | Clinical Summary ---
:1945 Author Organization [facility] Address [address] [place] [address] Phone Care Team Providers Name Role Phone Unavailable Primary Care Provider Unavailable Allergies No Known Allergies Current Medications Prescription Sig. Disp. Refills Start Date End Date Status warfarin (COUMADIN) 10 MG Take 11 mg by Active tablet mouth daily. cloNIDine HCl (CATAPRES) Take 0.1 mg by Active 0.1 MG tablet mouth daily as needed. omeprazole (PRILOSEC) 20 Take 20 mg by Active MG capsule mouth daily. cholecalciferol (VITAMIN Take 800 Units by Active D3) 400 unit Tab tablet mouth daily. aspirin 81 MG EC tablet Take 81 mg by Active mouth daily. albuterol HFA (VENTOLIN Inhale 1 puff by Active HFA) 90 mcg/actuation mouth via inhaler inhaler every 6 (six) hours as needed for Wheezing. atorvastatin (LIPITOR) 10 Take 10 mg by Active MG tablet mouth daily. lisinopril Take 40 mg by Active (PRINIVIL,ZESTRIL) 40 MG mouth daily. tablet amitriptyline (ELAVIL) 50 Take 50 mg by Active MG tablet mouth nightly. fluticasone-vilanterol Inhale 1 puff by Active (BREO ELLIPTA) 200-25 mouth via inhaler mcg/dose DsDv daily. tiZANidine (ZANAFLEX) 4 MG Take 4 mg by mouth Active tablet 3 (three) times daily as needed. primidone (MYSOLINE) 250 Take 250 mg by Active MG tablet mouth daily. topiramate (TOPAMAX) 100 Take 100 mg by Active MG tablet mouth daily. Active Problems Problem Noted Date Severe aortic stenosis Anemia Hypertension Hyperlipidemia Stroke (HCC) COPD (chronic obstructive pulmonary disease) (HCC) Seizures (HCC) Peripheral vascular disease (HCC) Carotid artery occlusion Aneurysm (HCC) Overview: AAA Blood clotting tendency (HCC) Overview: DVT 09/2017 Factor VIII deficiency (HCC) CHF (congestive heart failure) (HCC) Atrial fibrillation (HCC) GI bleed 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HCC) Abdominal aortic aneurysm (AAA) (HCC) DVT (deep venous thrombosis) (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);Abdominal aortic aneurysm (AAA) without rupture (HCC) 11/26/2017 Hospital Encounter Radiology Connie Hdzumaebonie aortic Christian Jolly, valve stenosis 11/26/2017 Hospital Encounter Radiology Carline Hdz valve stenosis 11/16/2017 Office Visit Cardiology Gurinder Morelos aortic MD Alessandro stenosis;Anemia, unspecified type;Essential hypertension;Hyperlipide pia, unspecified hyperlipidemia type;Cerebrovascular accident (CVA), unspecified mechanism (HCC);Chronic obstructive pulmonary disease, unspecified COPD type (HCC);Seizures (HCC);Peripheral vascular disease (HCC);Bilateral carotid artery occlusion;Aneurysm (HCC);Blood clotting tendency (HCC);Factor VIII deficiency ([facility]) 11/10/2017 Outside Orders Central Scheduling Carline Hdz, valve stenosis (Primary MD Dx) after 11/30/2016 Social History Tobacco Use Types Packs/Day Years Used Date Former Smoker 1.5 50 Quit: 2010 Smokeless Tobacco: Current User Chew Alcohol Use Drinks/Week oz/Week Comments No Sex Assigned at Date Recorded Not on file Last Filed Vital Signs Vital Sign Reading Time Taken Blood Pressure 179/84 11/26/2017 2:00 PM CDT Pulse 75 11/26/2017 2:00 PM CDT Temperature 36.2 C (97.2 F) 11/26/2017 2:00 PM CDT Respiratory Rate 14 11/26/2017 2:00 PM CDT Oxygen Saturation 97% 11/26/2017 2:00 PM CDT Inhaled Oxygen Concentration - - Weight 82.1 kg (181 lb) 11/26/2017 2:00 PM CDT Height 170.2 cm (5' 7") 11/26/2017 2:00 PM CDT Body Mass Index 28.35 11/26/2017 2:00 PM CDT Plan of Treatment Date Type Specialty Care Team Description 12/04/2017 Surgery Christian Hdz GRAIN HANDLER ILIAC ARTERY MD Rik [address] [facility] [address] [place] [address] [phone] 12/04/2017 Procedure Pass 12/04/2017 Hospital Encounter Christian Hdz MD [address] [facility] [address] [place] [address] [phone] 12/09/2017 Surgery Christian Hdz TAVR / KYLIE MCR - IP MD Rik PROC ONLY [address] [facility] [address] [place] [address] [phone] 12/09/2017 Procedure Pass 12/09/2017 Hospital Encounter Christian Hdz MD [address] [facility] [address] [place] [address] [phone] Health Maintenance Due Date Last Done Comments INFLUENZA VACCINE 05/10/2018 Results TRANSFUSION SERVICE REPORT - SCAN (11/28/2017 5:42 PM)Only the most recent of2 resultswithin the time period is included.Antibody identification (11/27/2017 12 :51 PM) Component Value Ref Range ANTIBODY ID (BEAKER) Anti-E Antibody Consult SIGNED OUTComment: Anti E causes RBC injury, transfuse E negative RBCs. Electronic Signature: Dustin Palacio M.D. Specimen Performing Laboratory [facility] [place] Type and screen, automated (11/26/2017 4:41 PM) Component Value Ref Range ABO/RH AUTOMATED (BEAKER) O POSITIVE Ab Scrn POSITIVEComment: echo1 Specimen Performing Laboratory Blood [facility] [address] [place] [id number] CBC with platelet count + automated diff (11/26/2017 4:41 PM) Component Value Ref Range WBC 7.7 3.5 - 10.5 K/L RBC 3.66 (L) 4.63 - 6.08 M/L Hemoglobin 9.1 (L) 13.7 - 17.5 GM/DL Hematocrit 31.7 (L) 40.1 - 51.0 % MCV 86.6 79.0 - 92.2 fL MCH 24.9 (L) 25.7 - 32.2 pg MCHC 28.7 (L) 32.3 - 36.5 GM/DL RDW 19.5 (H) 11.6 - 14.4 % Platelets 243 150 - 450 K/CU MM MPV 10.0 9.4 - 12.4 fL nRBC 0 0 - 0 /100 WBC % Neutros 73 % % Lymphs 13 % % Monos 9 % % Eos 4 % % Baso 1 % # Neutros 5.64 (H) 1.78 - 5.38 K/L # Lymphs 0.98 (L) 1.32 - 3.57 K/L # Monos 0.69 0.30 - 0.82 K/L # Eos 0.30 0.04 - 0.54 K/L # Baso 0.05 0.01 - 0.08 K/L Immature Granulocytes-Relative 0 0 - 1 % Specimen Performing Laboratory Blood [address] [address] Prothrombin time/INR (11/26/2017 4:41 PM) Component Value Ref Range Protime 16.5 (H) 11.7 - 14.7 seconds INR 1.3 <=5.9 Specimen Performing Laboratory Blood [address] [address] Narrative RECOMMENDED COUMADIN/WARFARIN INR THERAPY RANGES STANDARD DOSE: 2.0 - 3.0 Includes: PROPHYLAXIS for venous thrombosis, systemic embolization; TREATMENT for venous thrombosis and/or pulmonary embolus. HIGH RISK: Target INR is 2.5-3.5 for patients with mechanical heart valves. CBC with platelet count + automated diff (11/26/2017 4:41 PM) Specimen Performing Laboratory Blood Narrative The following orders were created for panel order CBC with platelet count + automated diff. Procedure Abnormality Status --------- ------ CBC with platelet count ...[[id number]]AbnormalFinal result Please view results for these tests on the individual orders. B-type Natriuretic Factor (BNP) (11/26/2017 4:41 PM) Component Value Ref Range BNP 142 (H) 0 - 100 pg/mL Specimen Performing Laboratory Blood [address] [address] Comprehensive metabolic panel (11/26/2017 4:41 PM) Component Value Ref Range Protein, Total 6.8 6.0 - 8.3 gm/dL Albumin 3.9 3.5 - 5.0 g/dL Alkaline Phosphatase 133 40 - 150 U/L Total Bilirubin 0.4 0.2 - 1.2 mg/dL Sodium 135 (L) 136 - 145 meq/L Potassium 4.3 3.5 - 5.1 meq/L Chloride 99 98 - 107 meq/L CO2 26 22 - 29 meq/L BUN 6 (L) 7 - 21 mg/dL Creatinine 1.14 0.57 - 1.25 mg/dL Glucose 104 70 - 105 mg/dL Calcium 8.9 8.4 - 10.2 mg/dL AST 12 5 - 34 U/L ALT 7 6 - 55 U/L EGFR 63Comment: ESTIMATED GFR IS NOT ACCURATE mL/min/1.73 sq m CREATININE CLEARANCE IN PREDICTING GLOMERULAR FILTRATION RATE. ESTIMATED GFR IS NOT APPLICABLE FOR DIALYSIS PATIENTS. Specimen Performing Laboratory Blood [address] [address] CTA chest (11/26/2017 12:56 PM) Specimen Performing Laboratory [facility] Narrative Addendum Begins REPORT STATUS:A Addendum: The images were reviewed with Dr. dHz. There is a missing dictation, specifically, despite the aortic bypass surgery the bill moore[place] slough left common iliac artery is still patent with retrograde filling from the left external iliac artery, with aneurysmal dilation identified. Image 466, it measures approximately 4.3 x 4.2 cm in diameter. Some intraluminal thrombus is seen. This is the left common iliac artery. The left internal iliac artery is also patent, with calcification present. Signed: Juwan Echols MD Report Verified Date/Time:11/27/2017 11:56:33 Reading Location: [place] [address] Cardiology MRI Addendum Ends Addendum Begins REPORT STATUS:A ADDENDUM: Study reviewed by radiology. Agree with the nonvascular findings as described below. See guidelines below regarding 5 mm pulmonary nodule. [employer] GUID[employer]INES (2017): Recommendations apply to newly detected indeterminate nodules found incidentally in patients 35 years of age or older. Risk factors include smoking history; history of lung cancer in first degree relative; exposure to radon, asbestos, or uranium. Low-risk patient: Nodule size: <6 mm: No follow-up needed. 6-8 mm: CT at 6-12 months, then consider CT at 18-24 months. >8 mm: Consider CT at 3 months, PET-CT, or biopsy. High-risk patient: Nodule size: <6 mm: Optional CT at 12 months. 6-8 mm: CT at 6-12 months, then CT at 18-24 months. >8 mm: Consider CT at 3 months, PET-CT, or biopsy. Signed: Adryan Barrow MD Report Verified Date/Time:11/26/2017 18:03:42 Reading Location: [place] [id number] Angio Body Reading Room Addendum Ends FINAL REPORT CT angiography of the thoracoabdominal aorta [...] during the dynamic passage of intravenous contrast material.Multi-planar 3-D volume-rendering reconstruction was performed using an [...] The central pulmonary artery is normal in calibre.There is no evidence of central pulmonary artery [...] takeoff of the left renal artery with fzbi-rk-inuhtklo stenosis identified. Arch vessel branching pattern is [...] mm (34 mm valve). Agatston Score is 4525.By planimetry, aortic valve area is 88 sq mm. The sinus of Valsalva height to the takeoff of the coronary artery ostium, RCC (diastole): 14.0 mm The sinus of Valsalva height and the takeoff of the coronary artery ostium, LCC (diastole): 14.8 mm The sinus of Valsalva diameter, RCC (diastole): 32.0 mm The sinus of Valsalva diameter, LCC (diastole): 32.6 mm The sinus of Valsalva diameter, NCC (diastole): 34.6 [...] measures 5.8 and 6.2 mm, respectively with mildtortuosity and mixture of mild to moderate noncalcific andcalcific atherosclerosis present. The minimum and the perpendicular left femoral artery measures 7.6 and 8.2 mm, respectively with mildtortuosity and icig-qp-pybqrbjuvpfmuvgr atherosclerosis present. Right iliac limb is patent. [...] seen. Some degenerative changes are noted. CONCLUSIONS: 1.Patient has a diagnosis of aortic stenosis. Aortic [...] dictated, however, the ordering physician is the [employer]OL MECH[employer]IC DBA of the [facility] and therefore no recommendation would be necessary. [...] be helpful for TAVR as described above. 2.No acute pulmonary pathology. No evidence of central pulmonary artery embolism. Evidence of prior granulomatous disease. A 5 mm nodule identified in the right lower lobe that could be followed in 6-12 months time to document stability. 3.Other findings as described above. 4.An addendum will be dictated by the Power Plant Superintendent Radiologist regarding the nonvascular findings. Signed: Juwan Echols MD Report Verified Date/Time:11/26/2017 16:25:25 Reading Location: [place] [address] Cardiology MRI Procedure Note Interface, External Ris In - 11/27/2017 11:58 AM CDT Addendum Begins REPORT STATUS:A Addendum: The images were reviewed with Dr. Hdz. There is a missing dictation, specifically, despite the aortic bypass surgery the [place]ore[place] left common iliac artery is still patent with retrograde filling from the left external iliac artery, with aneurysmal dilation identified. Image 466, it measures approximately 4.3 x 4.2 cm in diameter. Some intraluminal thrombus is seen. This is the left common iliac artery. The left internal iliac artery is also patent, with calcification present. Signed: Juwan Echols MD Report Verified Date/Time: 11/27/2017 11:56:33 Reading Location: [place] [address] Cardiology MRI Addendum Ends Addendum Begins REPORT STATUS:A ADDENDUM: Study reviewed by radiology. Agree with the nonvascular findings as described below. See guidelines below regarding 5 mm pulmonary nodule. [employer] GUID[employer]INES (2017): Recommendations apply to newly detected indeterminate nodules found incidentally in patients 35 years of age or older. Risk factors include smoking history; history of lung cancer in first degree relative; exposure to radon, asbestos, or uranium. Low-risk patient: Nodule size: <6 mm: No follow-up needed. 6-8 mm: CT at 6-12 months, then consider CT at 18-24 months. >8 mm: Consider CT at 3 months, PET-CT, or biopsy. High-risk patient: Nodule size: <6 mm: Optional CT at 12 months. 6-8 mm: CT at 6-12 months, then CT at 18-24 months. >8 mm: Consider CT at 3 months, PET-CT, or biopsy. Signed: Adryan Barrow MD Report Verified Date/Time: 11/26/2017 18:03:42 Reading Location: [facility] Angio Body Reading Room Addendum Ends FINAL REPORT CT angiography of the thoracoabdominal aorta [...] takeoff of the left renal artery with cafv-cs-rlvmgkzx stenosis identified. Arch vessel branching pattern is [...] the coronary artery ostium, RCC (diastole): 14.0 mm The sinus of Valsalva height and the takeoff of the coronary artery ostium, LCC (diastole): 14.8 mm The sinus of Valsalva diameter, RCC (diastole): 32.0 mm The sinus of Valsalva diameter, LCC (diastole): 32.6 mm The sinus of Valsalva diameter, NCC (diastole): 34.6 [...] 8.2 mm, respectively with mild tortuosity and ukal-nn-nsdfxjjj calcific atherosclerosis present. Right iliac limb is [...] dictated, however, the ordering physician is the TOOL MECHANIC DBA of the [facility] and therefore no recommendation would be necessary. [...] An addendum will be dictated by the Power Plant Superintendent Radiologist regarding the nonvascular findings. Signed: Juwan Echols MD Report Verified Date/Time: 11/26/2017 16:25:25 Reading Location: [facility] Cardiology MRI abdomen & pelvis (11/26/2017 12:56 PM) Specimen Performing Laboratory [facility] Narrative Addendum Begins REPORT STATUS:A Addendum: The images were reviewed with Dr. Hdz. There is a missing dictation, specifically, despite the aortic bypass surgery the [place]ore[place] left common iliac artery is still patent with retrograde filling from the left external iliac artery, with aneurysmal dilation identified. Image 466, it measures approximately 4.3 x 4.2 cm in diameter. Some intraluminal thrombus is seen. This is the left common iliac artery. The left internal iliac artery is also patent, with calcification present. Signed: Juwan Echols MD Report Verified Date/Time:11/27/2017 11:56:33 Reading Location: [facility] Cardiology MRI Addendum Ends Addendum Begins REPORT STATUS:A ADDENDUM: Study reviewed by radiology. Agree with the nonvascular findings as described below. See guidelines below regarding 5 mm pulmonary nodule. [employer] GUIDELINES (2017): Recommendations apply to newly detected indeterminate nodules found incidentally in patients 35 years of age or older. Risk factors include smoking history; history of lung cancer in first degree relative; exposure to radon, asbestos, or uranium. Low-risk patient: Nodule size: <6 mm: No follow-up needed. 6-8 mm: CT at 6-12 months, then consider CT at 18-24 months. >8 mm: Consider CT at 3 months, PET-CT, or biopsy. High-risk patient: Nodule size: <6 mm: Optional CT at 12 months. 6-8 mm: CT at 6-12 months, then CT at 18-24 months. >8 mm: Consider CT at 3 months, PET-CT, or biopsy. Signed: Adryan Barrow MD Report Verified Date/Time:11/26/2017 18:03:42 Reading Location: [facility] Angio Body Reading Room Addendum Ends FINAL REPORT CT angiography of the thoracoabdominal aorta [...] during the dynamic passage of intravenous contrast material.Multi-planar 3-D volume-rendering reconstruction was performed using an [...] The central pulmonary artery is normal in calibre.There is no evidence of central pulmonary artery [...] takeoff of the left renal artery with gutt-po-iqujhifa stenosis identified. Arch vessel branching pattern is [...] mm (34 mm valve). Agatston Score is 4525.By planimetry, aortic valve area is 88 sq mm. The sinus of Valsalva height to the takeoff of the coronary artery ostium, RCC (diastole): 14.0 mm The sinus of Valsalva height and the takeoff of the coronary artery ostium, LCC (diastole): 14.8 mm The sinus of Valsalva diameter, RCC (diastole): 32.0 mm The sinus of Valsalva diameter, LCC (diastole): 32.6 mm The sinus of Valsalva diameter, NCC (diastole): 34.6 [...] measures 5.8 and 6.2 mm, respectively with mildtortuosity and mixture of mild to moderate noncalcific andcalcific atherosclerosis present. The minimum and the perpendicular left femoral artery measures 7.6 and 8.2 mm, respectively with mildtortuosity and ykmw-ai-cvizcajmayrqmssg atherosclerosis present. Right iliac limb is patent. [...] seen. Some degenerative changes are noted. CONCLUSIONS: 1.Patient has a diagnosis of aortic stenosis. Aortic [...] dictated, however, the ordering physician is the TOOL MECHANIC DBA of the [facility] and therefore no recommendation would be necessary. [...] be helpful for TAVR as described above. 2.No acute pulmonary pathology. No evidence of central pulmonary artery embolism. Evidence of prior granulomatous disease. A 5 mm nodule identified in the right lower lobe that could be followed in 6-12 months time to document stability. 3.Other findings as described above. 4.An addendum will be dictated by the Power Plant Superintendent Radiologist regarding the nonvascular findings. Signed: Juwan Echols MD Report Verified Date/Time:11/26/2017 16:25:25 Reading Location: [place] [address] Cardiology MRI Procedure Note Interface, External Ris In - 11/27/2017 11:58 AM CDT Addendum Begins REPORT STATUS:A Addendum: The images were reviewed with Dr. Hdz. There is a missing dictation, specifically, despite the aortic bypass surgery the [place] left common iliac artery is still patent with retrograde filling from the left external iliac artery, with aneurysmal dilation identified. Image 466, it measures approximately 4.3 x 4.2 cm in diameter. Some intraluminal thrombus is seen. This is the left common iliac artery. The left internal iliac artery is also patent, with calcification present. Signed: Juwan Echols MD Report Verified Date/Time: 11/27/2017 11:56:33 Reading Location: [facility] Cardiology MRI Addendum Ends Addendum Begins REPORT STATUS:A ADDENDUM: Study reviewed by radiology. Agree with the nonvascular findings as described below. See guidelines below regarding 5 mm pulmonary nodule. [employer] GUIDELINES (2017): Recommendations apply to newly detected indeterminate nodules found incidentally in patients 35 years of age or older. Risk factors include smoking history; history of lung cancer in first degree relative; exposure to radon, asbestos, or uranium. Low-risk patient: Nodule size: <6 mm: No follow-up needed. 6-8 mm: CT at 6-12 months, then consider CT at 18-24 months. >8 mm: Consider CT at 3 months, PET-CT, or biopsy. High-risk patient: Nodule size: <6 mm: Optional CT at 12 months. 6-8 mm: CT at 6-12 months, then CT at 18-24 months. >8 mm: Consider CT at 3 months, PET-CT, or biopsy. Signed: Adryan Barrow MD Report Verified Date/Time: 11/26/2017 18:03:42 Reading Location: [facility] Angio Body Reading Room Addendum Ends FINAL REPORT CT angiography of the thoracoabdominal aorta [...] takeoff of the left renal artery with zbzj-eb-cxpadusx stenosis identified. Arch vessel branching pattern is [...] the coronary artery ostium, RCC (diastole): 14.0 mm The sinus of Valsalva height and the takeoff of the coronary artery ostium, LCC (diastole): 14.8 mm The sinus of Valsalva diameter, RCC (diastole): 32.0 mm The sinus of Valsalva diameter, LCC (diastole): 32.6 mm The sinus of Valsalva diameter, NCC (diastole): 34.6 [...] 8.2 mm, respectively with mild tortuosity and pqhw-jz-yufabajq calcific atherosclerosis present. Right iliac limb is [...] dictated, however, the ordering physician is the TOOL MECHANIC DBA of the [facility] and therefore no recommendation would be necessary. [...] An addendum will be dictated by the Power Plant Superintendent Radiologist regarding the nonvascular findings. Signed: Juwan Echols MD Report Verified Date/Time: 11/26/2017 16:25:25 Reading Location: [place] [address] Cardiology MRI -Creatinine (11/26/2017 11:51 AM) Component Value Ref Range POC-Creatinine 1.1Comment: TESTED AT [address] 0.6 - 1.3 mg/dL [address] POC-EGFR 65 mL/min/1.73M2 Specimen Performing Laboratory Blood [facility] [address] [address] after 11/30/2016
--- OUTSIDE RECORDS SUMMARY | 2017-12-01 20:18 | XMS REPORT ---
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 Problem Depression with anxiety F41.8 Active Problem Hemiplegia and hemiparesis I69.854 Active following other cerebrovascular disease affecting left non-dominant side Problem Cerebrovascular accident I63.9 Active Problem 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 Problem Aortic valve stenosis I35.0 Active Problem 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 Problem Aortic aneurysm, abdominal I71.4 Active Problem 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 Problem Physical debility R53.81 Active Problem Generalized weakness R53.1 Active Problem Tremor R25.1 Active Problem Memory loss R41.3 Active Problem Anemia in chronic illness D63.8 Active Problem Anticoagulated Z79.01 Active Problem H/O fall Z91.81 Active Problem H/O TIA (transient ischemic attack) Z86.73 Active and stroke Problem Gastrointestinal hemorrhage, K92.2 Active unspecified gastrointestinal hemorrhage type Problem Nicotine dependence F17.200 Active Problem Insomnia G47.00 Active Problem Vitamin D deficiency E55.9 Active Problem Peripheral vascular disease I73.9 Active Problem Occlusion and stenosis of carotid I65.29 Active artery Problem Chronic obstructive pulmonary J44.9 Active disease Problem Benign hypertrophy of prostate N40.0 Active Problem Benign essential HTN I10 Active Problem Hyperlipidemia, mixed E78.2 Active Medications No Known Medications Results No Known Results Summary Purpose [employer] Submission
--- OUTSIDE RECORDS SUMMARY | 2017-12-01 20:18 | XMS REPORT ---
:1945 Author Organization [employer] Care Team Providers Name Role Phone Home De La Cruz Provider Role Unavailable Allergies No Known Allergies Problems Problem Type Condition Code Onset Dates Condition Status Problem Thoracic aortic aneurysm without I71.2 Active rupture Assessment Anemia in chronic illness D63.8 Active Problem Hypercoagulable state D68.59 Active Problem Vitamin [...]
--- OUTSIDE RECORDS SUMMARY | 2017-12-01 20:18 | XMS REPORT ---
[...] Start Date End Date Status Dosage Lisinopril [facility] [id number] 40 MG Orally Once Active 1 tablet a day Results No Known Results Summary Purpose eClinicalWorks Submission
[2017-12-01] MEDS ORDERED: METHYLPREDNISOLONE 125 MG INJ ONE (20:48)
[2017-12-01] MEDS ORDERED: IPRATROPIUM BROM 0.5MG/2.5ML ONE (20:49)
[2017-12-01] MEDS ORDERED: ALBUTEROL 2.5 MG/3 ML NEB SOL ONE (20:49)
[2017-12-01 21:07] LABS: Blood Gas Oxyhemoglobin 92.3 % (94-97); Blood O2 Saturation 94.5 % (92-98.5)
--- NOTE | 2017-12-01 21:19 | RAD REPORT ---
EXAM DESCRIPTION: RAD - Chest Single View - 12/01/2017 9:12 pm CLINICAL HISTORY: Chest pain. COMPARISON: 08/28/2017 FINDINGS: Portable technique limits examination quality. The lungs are mildly emphysematous but grossly clear. The heart is upper limit of normal normal in si ze. Thoracic aorta is tortuous. No displaced fractures. IMPRESSION: Emphysema.
[2017-12-01 21:22] LABS: Absolute Lymphocytes (CBC) 0.7 K/uL (0.7-4.9); Absolute Monocytes 0.7 K/uL (0.1-1.3); Absolute Neutrophil 6.2 K/uL (1.8-8.0); Basophils % 1.2 % (0-1.3); Eosinophils % 3.5 % (0-4.4); Hematocrit 29.9 % (39.6-49.0); Lymphocytes % 9.2 % (15.3-44.8); MCH 25.8 pg (27.0-35.0); MCV 79.7 fL (80-100); MPV 8.5 fL (7.6-11.3); Monocytes % 8.8 % (3.3-12.3); RBC Red Blood Cell Count 3.75 M/uL (4.33-5.43)
[2017-12-01 21:23] LABS: Protime INR 1.65
[2017-12-01 21:31] LABS: Potassium 3.5 mEq/L (3.6-5.0)
[2017-12-01 21:40] LABS: CKMB Creatine Kinase MB 4.6 ng/ml (0.3-4.0)
[2017-12-01 21:49] LABS: Albumin 3.4 g/dL (3.2-5.5); Bilirubin Direct 0.1 mg/dL (0-0.2); Bilirubin Total 0.4 mg/dL (0.3-1.2); Magnesium 1.8 mg/dL (1.8-2.5); Protein, Total 6.8 g/dL (6.0-8.3)
[2017-12-01 23:23] LABS: Urine Blood NEGATIVE (NEG); Urine Glucose NEGATIVE (NEG); Urine Protein NEGATIVE (NEG); Urine Specific Gravity 1.015 (1.005-1.030)
[2017-12-01 23:43] LABS: Anisocytosis 2+; Blood Morphology Comment NOTED (NOT SEEN); Platelet Estimate ADEQ; Urine White Blood Cell Casts OK
--- NOTE | 2017-12-01 23:54 | EDPHYS ---
Physician Documentation [facility] Name: Pineda Mckeon Age: 72 yrs Sex: Male : 1945 Arrival Date: 12/01/2017 Time: 20:16 Bed 20 Private MD: ED Physician Glenn Ngo HPI: 12/01 20:46 This 72 yrs old Male presents to ER via Wheelchair with complaints of Chest pkl Pain, Breathing Difficulty. 20:46 The patient or guardian reports chest pain that is located primarily in the substernal pkl area. Onset: just prior to arrival, 3 hour(s) ago. The pain does not radiate. Associated signs and symptoms: Pertinent positives: shortness of breath. The chest pain is described as dull. Patient scheduled for leaking aneurysm repair left thigh this Thursday and aortic valve replacement next Thursday. Historical: - Allergies: 20:32 No Known Allergies; bs1 - Home Meds: 20:32 amitriptyline 100 mg Oral tab 1 tab nightly [Active]; aspirin 81 mg Oral TbEC 1 tab bs1 once daily [Active]; Breo Ellipta 200-25 mcg/dose inhalation dsdv 1 puff once daily [Active]; clonidine HCl 0.1 mg Oral tab 1 tab 4 times per day [Active]; fentanyl 100 mcg/hr Topical pt72 1 patch every 72 hours [Active]; hydrocodone-acetaminophen 10-325 mg Oral tab 1 tab every 6 hours [Active]; Lipitor 10 mg Oral tab 1 tab once daily [Active]; lisinopril 40 mg Oral tab 1 tab once daily [Active]; tizanidine 4 mg Oral tab 2 2-4 tabs daily [Active]; topiramate 25 mg Oral CSpX 1 cap once daily [Active]; Vitamin B-12 1,000 mcg Oral tab daily [Active]; Vitamin D Oral 5000 mcg daily [Active]; warfarin 9 mg Oral tab 1 tab once daily [Active]; - PMHx: 20:32 AAA; Bypass Bilateral Legs; clotting disorder; COPD; CVA; Hypertension; Right Arm; TIA; bs1 - PSHx: 20:32 Cholecystectomy; bs1 - Immunization history:: Adult Immunizations up to date. - Social history:: Smoking status: Patient/guardian denies using tobacco. ROS: 20:46 Eyes: Negative for injury, pain, redness, and discharge, ENT: Negative for injury, pkl pain, and discharge, Neck: Negative for injury, pain, and swelling. 20:46 Cardiovascular: Positive for chest pain. 20:46 Respiratory: Positive for cough, with yellow sputum, shortness of breath. 20:46 Abdomen/GI: Negative for abdominal pain, nausea, vomiting, and diarrhea. 20:46 Back: Negative for acute changes. 20:46 : Negative for urinary symptoms. 20:46 MS/extremity: Negative for acute changes. 20:46 Skin: Negative for rash. 20:46 Neuro: Negative for altered mental status. Exam: 20:46 Head/Face: Normocephalic, atraumatic. Eyes: Pupils equal round and reactive to light, pkl extra-ocular motions intact. Lids and lashes normal. Conjunctiva and sclera are non-icteric and not injected. Cornea within normal limits. Periorbital areas with no swelling, redness, or edema. ENT: Nares patent. No nasal discharge, no septal abnormalities noted. Tympanic membranes are normal and external auditory canals are clear. Oropharynx with no redness, swelling, or masses, exudates, or evidence of obstruction, uvula midline. Mucous membranes moist. Neck: Trachea midline, no thyromegaly or masses palpated, and no cervical lymphadenopathy. Supple, full range of motion without nuchal rigidity, or vertebral point tenderness. No Meningismus. Chest/axilla: Normal chest wall appearance and motion. Nontender with no deformity. No lesions are appreciated. 20:46 Cardiovascular: Rate: normal, Rhythm: regular. 20:46 Respiratory: the patient does not display signs of respiratory distress, Respirations: normal, Breath sounds: bronchial sounds, that are mild, are scattered. 20:46 Abdomen/GI: Exam negative for acute changes, Bowel sounds: normal, Palpation: abdomen is soft and non-tender, in all quadrants. 20:46 Back: Exam negative for acute changes. 20:46 : Exam negative for acute changes. 20:46 Musculoskeletal/extremity: Exam is negative for acute changes. 20:46 Skin: Exam negative for rash. 20:46 Neuro: Orientation: is normal, Mentation: is normal, Cranial nerves: grossly normal, Motor: is normal. Vital Signs: 20:26 BP 159 / 78; Pulse 87; Resp 16; Temp 97.9(O); Pulse Ox 94% on R/A; Weight 81.65 kg; bs1 Height 5 ft. 7 in. (170.18 cm); Pain 8/10; 21:30 BP 142 / 60; Pulse 83; Resp 18; Pulse Ox 95% on R/A; ak1 22:15 BP 139 / 67; Pulse 84; Resp 18; Pulse Ox 94% on R/A; ak1 23:19 BP 150 / 75; Pulse 83; Resp 18; Temp 97.6(TE); Pulse Ox 92% on R/A; Pain 3/10; ak1 20:26 Body Mass Index 28.19 (81.65 kg, 170.18 cm) bs1 MDM: 20:27 Patient medically screened. pkl 23:51 Data reviewed: vital signs, nurses notes, lab test result(s), EKG, radiologic studies, pkl CT scan, plain films. ED course: Patient said he is feeling better. Does not want to be transferred to [facility]. Want to sign AMA. 12/01 20:44 Order name: Basic Metabolic Panel; Complete Time: 22:09 pkl 12/01 20:44 Order name: BNP; Complete Time: 21:39 pkl 12/01 20:44 Order name: CBC with Diff; Complete Time: 23:56 pkl 12/01 20:44 Order name: Ckmb; Complete Time: 22:09 pkl 12/01 20:44 Order name: CPK; Complete Time: 22:09 pkl 12/01 20:44 Order name: LFT's; Complete Time: 22:09 pkl 12/01 20:44 Order name: Magnesium; Complete Time: 22:09 pkl 12/01 20:44 Order name: PT-INR; Complete Time: 21:35 pkl 12/01 20:44 Order name: Ptt, Activated; Complete Time: 21:35 pkl 12/01 20:44 Order name: Troponin (emerg Dept Use Only); Complete Time: 21:39 pkl 12/01 20:44 Order name: ABG; Complete Time: 21:35 pkl 12/01 20:44 Order name: D-Dimer; Complete Time: 21:35 pkl 12/01 20:44 Order name: Blood Culture Adult (2) pkl 12/01 20:45 Order name: Lactate; Complete Time: 21:37 pkl 12/01 20:44 Order name: XRAY Chest (1 view); Complete Time: 21:35 pkl 12/01 20:44 Order name: EKG; Complete Time: 20:45 pkl 12/01 20:44 Order name: Cardiac monitoring; Complete Time: 20:45 pkl 12/01 20:44 Order name: EKG - Nurse/Tech; Complete Time: 20:45 pkl 12/01 20:44 Order name: IV Saline Lock; Complete Time: 20:46 pkl 12/01 20:44 Order name: Labs collected and sent; Complete Time: 20:46 pkl 12/01 20:44 Order name: O2 Per Protocol; Complete Time: 20:46 pkl 12/01 20:45 Order name: Procalcitonin; Complete Time: 22:09 pkl 12/01 22:12 Order name: CT Chest For PE Angio pkl 12/01 22:43 Order name: EKG; Complete Time: 22:43 pkl 12/01 22:43 Order name: Troponin (emerg Dept Use Only); Complete Time: 23:26 pkl 12/01 23:17 Order name: Urine Dipstick--Ancillary (enter results); Complete Time: 23:26 rg2 12/01 23:43 Order name: CBC Smear Scan; Complete Time: 23:56 EDMS 12/01 20:44 Order name: O2 Sat Monitoring; Complete Time: 20:46 pkl 12/01 20:44 Order name: Urine Dipstick-Ancillary (obtain specimen); Complete Time: 22:26 pkl 12/01 22:49 Order name: EKG - Nurse/Tech; Complete Time: 23:08 ak1 Administered Medications: 21:08 Drug: SOLU-Medrol 125 mg Route: IVP; Site: right antecubital; ak1 22:26 Follow up: Response: No adverse reaction ak1 21:08 Drug: Albuterol - atroVENT (3:1) (2.5 mg - 0.5 mg) 3 ml Route: Nebulizer; ak1 22:26 Follow up: Response: No adverse reaction ak1 12/02 00:10 Drug: Rocephin - (cefTRIAXone) 1 grams Route: IVPB; Infused Over: 30 mins; Site: right ak1 antecubital; 00:11 Follow up: IV Status: Completed infusion ak1 Disposition: 12/01/17 23:53 Patient has left against medical advice. Impression: COPD exacerbation. Right pneumonia. Aneurysm distal thoracic aorta.. - Patients states they are going to Home. - Condition is Stable. - Prescriptions for Levaquin 500 mg Oral Tablet - take 1 tablet by ORAL route once daily for 10 days; 10 tablet. Follow up: Private Physician; When: 1 - 2 days; Reason: Re-evaluation by your physician. - Problem is new. - Symptoms have improved. Signatures: Dispatcher [employer] Glenn Richards MD MD pkl Krenek, Amber, RN RN ak1 Pati Heaton RN RN bs1
--- NOTE | 2017-12-01 23:54 | ER ---
Nurse's Notes [facility] Name: Pineda Mckeon Age: 72 yrs Sex: Male : 1945 Arrival Date: 12/01/2017 Time: 20:16 Bed 20 Private MD: Diagnosis: COPD exacerbation. Right pneumonia. Aneurysm distal thoracic aorta. Presentation: 12/01 20:26 Presenting complaint: Patient states: "I started having chest pain about 3 hours ago bs1 and I cant breathe." Patient denies pain radiating anywhere, hx of Triple AAA, COPD. Transition of care: patient was not received from another setting of care. Onset of symptoms was December 01, 2017 at 17:30. Initial Sepsis Screen: Does the patient meet any 2 criteria? No. Patient's initial sepsis screen is negative. Does the patient have a suspected source of infection? No. Patient's initial sepsis screen is negative. Care prior to arrival: None. 20:26 Method Of Arrival: Wheelchair bs1 20:26 Acuity: NORY 2 bs1 Historical: - Allergies: 20:32 No Known Allergies; bs1 - Home Meds: 20:32 amitriptyline 100 mg Oral tab 1 tab nightly [Active]; aspirin 81 mg Oral TbEC 1 tab bs1 once daily [Active]; Breo Ellipta 200-25 mcg/dose inhalation dsdv 1 puff once daily [Active]; clonidine HCl 0.1 mg Oral tab 1 tab 4 times per day [Active]; fentanyl 100 mcg/hr Topical pt72 1 patch every 72 hours [Active]; hydrocodone-acetaminophen 10-325 mg Oral tab 1 tab every 6 hours [Active]; Lipitor 10 mg Oral tab 1 tab once daily [Active]; lisinopril 40 mg Oral tab 1 tab once daily [Active]; tizanidine 4 mg Oral tab 2 2-4 tabs daily [Active]; topiramate 25 mg Oral CSpX 1 cap once daily [Active]; Vitamin B-12 1,000 mcg Oral tab daily [Active]; Vitamin D Oral 5000 mcg daily [Active]; warfarin 9 mg Oral tab 1 tab once daily [Active]; - PMHx: 20:32 AAA; Bypass Bilateral Legs; clotting disorder; COPD; CVA; Hypertension; Right Arm; TIA; bs1 - PSHx: 20:32 Cholecystectomy; bs1 - Immunization history:: Adult Immunizations up to date. - Social history:: Smoking status: Patient/guardian denies using tobacco. Screenin:52 Abuse screen: Denies threats or abuse. Denies injuries from another. Nutritional ak1 screening: No deficits noted. Tuberculosis screening: No symptoms or risk factors identified. Fall Risk None identified. Assessment: 21:52 Reassessment: Patient appears in no apparent distress at this time. Patient is alert, ak1 oriented x 3, equal unlabored respirations, skin warm/dry/pink. Patient states feeling better. Patient states symptoms have improved. General: Appears in no apparent distress. Behavior is calm, cooperative. Pain: Pain does not radiate. Pain began 2-3 days ago. Neuro: Level of Consciousness is awake, alert, obeys commands, Oriented to person, place, time, situation, Furniture Restorer are equal bilaterally Moves all extremities. Gait is steady, Speech is normal, Facial symmetry appears normal. Cardiovascular: Reports chest pain, shortness of breath. Respiratory: Reports shortness of breath at rest on exertion since 2 days. GI: No signs and/or symptoms were reported involving the gastrointestinal system. : No signs and/or symptoms were reported regarding the genitourinary system. EENT: No signs and/or symptoms were reported regarding the EENT system. Derm: No signs and/or symptoms reported regarding the dermatologic system. Musculoskeletal: No signs and/or symptoms reported regarding the musculoskeletal system. 23:19 Reassessment: Patient appears in no apparent distress at this time. Patient is alert, ak1 oriented x 3, equal unlabored respirations, skin warm/dry/pink. Patient states feeling better. Patient states symptoms have improved. Vital Signs: 20:26 BP 159 / 78; Pulse 87; Resp 16; Temp 97.9(O); Pulse Ox 94% on R/A; Weight 81.65 kg; bs1 Height 5 ft. 7 in. (170.18 cm); Pain 8/10; 21:30 BP 142 / 60; Pulse 83; Resp 18; Pulse Ox 95% on R/A; ak1 22:15 BP 139 / 67; Pulse 84; Resp 18; Pulse Ox 94% on R/A; ak1 23:19 BP 150 / 75; Pulse 83; Resp 18; Temp 97.6(TE); Pulse Ox 92% on R/A; Pain 3/10; ak1 20:26 Body Mass Index 28.19 (81.65 kg, 170.18 cm) bs1 ED Course: 20:16 Patient arrived in ED. ds1 20:27 Gelnn Ngo MD is Attending Physician. pkl 20:29 Triage completed. bs1 20:32 Citlali Mckeon, RN is Primary Nurse. ak1 20:32 Inserted saline lock: 20 gauge in right antecubital area, using aseptic technique. ak1 Blood collected. Oxygen administration via nasal cannula \\T\\ 1L/min. 20:33 Patient has correct armband on for positive identification. Allergy band placed. Bed in ak1 low position. Call light in reach. Side rails up X 1. Adult w/ patient. Pulse ox on. NIBP on. 21:11 X-ray completed. Portable x-ray completed in exam room. Patient tolerated procedure kc2 well. 21:12 XRAY Chest (1 view) In Process Unspecified. EDMS 21:54 Arm band placed on Patient placed Patient notified of wait time. ak1 22:[address] via wheelchair. vm2 22:47 CT completed. Patient moved back from CT. vm2 22:47 CT Chest For PE Angio In Process Unspecified. EDMS 23:23 No provider procedures requiring assistance completed. ak1 12/02 00:13 IV discontinued, intact, bleeding controlled, No redness/swelling at site. Pressure ak1 dressing applied. Administered Medications: 12/01 21:08 Drug: SOLU-Medrol 125 mg Route: IVP; Site: right antecubital; ak1 22:26 Follow up: Response: No adverse reaction ak1 21:08 Drug: Albuterol - atroVENT (3:1) (2.5 mg - 0.5 mg) 3 ml Route: Nebulizer; ak1 22:26 Follow up: Response: No adverse reaction ak1 12/02 00:10 Drug: Rocephin - (cefTRIAXone) 1 grams Route: IVPB; Infused Over: 30 mins; Site: right ak1 antecubital; 00:11 Follow up: IV Status: Completed infusion ak1 Outcome: 00:11 AMA Other pt given antibiotic prescription. pt and daughter informed of need for ak1 transfer, pt refused, pt signed out AMA. pt A\\T\\OX4, resp even and unlabored. 00:11 Condition: stable 00:11 Instructed on the need for transfer. 00:21 Patient left the ED. ak1 Signatures: Dispatcher [employer] EDMS Glenn Ngo MD MD pkl Sanford, Demi ds1 Citlali Mckeon RN RN ak1 Juanita Chisholm2 Benita Sal 2 Pati Heaton, RN RN bs1
[2017-12-02] MEDS ORDERED: CEFTRIAXONE/SWI 1gm 1 GM/10 ML SYR ONE (00:01)
[2017-12-02 00:29] VITALS: BP 150/75; TEMP 97.6; O2SAT 92
--- NOTE | 2017-12-02 06:35 | RAD REPORT ---
EXAM DESCRIPTION: CT - Chest For Pe Angio - 12/02/2017 6:07 am CLINICAL HISTORY: Chest pain, shortness of breath A preliminary written report was provided at the time of the study, and the report was reviewed prio r to final dictation. COMPARISON: CT chest PE study September 08 ; CT imaging 2013 and 2010 TECHNIQUE: Dynamically enhanced 3 mm thick images of the chest were obtained during administration o f approximately 150mL Isovue 370 IV contrast. Coronal and oblique reconstruction images were generate d and reviewed. Exam utilizes a protocol to evaluate the pulmonary arterial tree. All CT scans are performed using dose optimization technique as appropriate and may include automated exposure control or mA/KV adjustment according to patient size. FINDINGS: No pulmonary emboli are identified. No acute aortic dissection. Aortic arch is 3 vessel. Atherosclerotic changes are present at the left subclavian origin. Left vertebral artery arises near the base of the left subclavian artery. Signific ant stenosis of either vessel is not seen. Distal descending aorta is quite tortuous. Near the diaphr agm the aorta is dilated to 5.0 cm. This is similar to August. Patient has some underlying chronic interstitial lung disease and emphysema change. Interstitial matias ings are increased slightly in the right middle lobe and in the right lower lobe. Dense bronchial edgardo e calcifications are present. There is inflammatory debris or mucous partially filling right lower lo be bronchi. No pneumothorax or pleural effusion. No pleural based mass. No cardiomegaly. No pericardial thickening or effusion. In the right lower lobe (image 52/97) there is a 7 millimeter pulmonary nodule. This may be slightly larger than Zoraida were it measures approximately 6 mm. Such small incremental changes can be accoun jaime for by volume averaging affects or measurement technique. A repeat examination in 3 months is rec ommended to re-evaluate for any continued evidence for growth. No additional nodule or mass identifie d. No mediastinal or hilar suspicious masses. No chest wall masses or abnormal axillary lymphadenopathy. Numerous granulomatous type calcifications are present in each hilum. IMPRESSION: No pulmonary emboli identified. Interstitial pneumonia changes are evident in the right middle lobe and right lower lobe with mucus o r inflammatory debris within the right lower lobe bronchial tree. This would favor a viral infiltrate though for a bacterial pneumonia. There is a small component of atelectasis in the posterior gutter on the right. Right lower lobe 7 millimeter pulmonary nodule appearing fractionally increased from Zoraida. A 1 mil limeter differential may be technical rather than true growth. Repeat CT chest in 3 months is recomme nded to evaluate for any further evidence for growth. Distal descending thoracic aorta aneurysm to 5 cm similar to August. The distal descending thoracic aorta measures 3.7 cm and 2013. No dissection or acute component seen.
--- NOTE | 2017-12-02 06:53 | EKG ---
Test Date: 2017-12-01 Test Time: 23:01:41 Stem Roller Or Crusher Operator: DAVE MEASUREMENT RESULTS: Intervals: Rate: 91 [place]: 152 QRSD: 92 QT: 390 QTc: 479 [place]: P: 67 [place]: 152 QRS: 45 T: 46 INTERPRETIVE STATEMENTS: Normal sinus rhythm Normal ECG Compared to ECG 12/01/2017 20:25:20 No significant changes Electronically Signed On 12-02-17 06:53:23 CDT by Pavan Andrews
--- NOTE | 2017-12-02 06:54 | EKG ---
Test Date: 2017-12-01 Test Time: 20:25:20 Occupational Therapy Co Director: MAKENZIE MEASUREMENT RESULTS: Intervals: Rate: 82 PA: 156 QRSD: 96 QT: 380 QTc: 443 [place]: P: 65 PA: 156 QRS: 46 T: 49 INTERPRETIVE STATEMENTS: Normal sinus rhythm Normal ECG Compared to ECG 10/23/2017 23:28:33 No significant changes Electronically Signed On 12-02-17 06:54:09 CDT by Pavan Andrews
== END 2017-12-02 00:21 | disposition left against medical advice (07) ==
LOC: ER 20:15
DX: J44.1 Chronic obstructive pulmonary disease with (acute) exacerbation (principal); J18.9 Pneumonia, unspecified organism; I71.2 Thoracic aortic aneurysm, without rupture; I10 Essential (primary) hypertension; Z86.73 Personal history of transient ischemic attack (TIA), and cerebral infarction without residual deficits; Z79.82 Long term (current) use of aspirin; Z79.01 Long term (current) use of anticoagulants
CPT/HCPCS: 36415; 71045; 71275; 80048; 80076; 81003; 82550; 82553; 82805; 83605; 83735; 83880; 84145; 84484 ×2; 85025; 85379; 85610; 85730; 87040 ×2; 93005 ×2; J0696; J2930; Q9967; 94640; 96374; 96375; 99285

== ENCOUNTER 2017-12-30 19:03 | Observation (INO) | payer OTHER ==
--- OUTSIDE RECORDS SUMMARY | 2017-12-30 19:06 | XMS REPORT | Clinical Summary ---
:1945 Author Organization [facility] Address [address] [place] [address] Phone Care Team Providers Name Role Phone Unavailable Primary Care Provider Unavailable Allergies No Known Allergies Current Medications Prescription Sig. Disp. Refills Start Date End Date Status cloNIDine HCl Take 0.1 mg Active (CATAPRES) 0.1 MG by mouth tablet daily as needed. omeprazole (PRILOSEC) Take 20 mg by Active 20 MG capsule mouth daily. cholecalciferol Take 800 Active (VITAMIN D3) 400 unit Units by Tab tablet mouth daily. albuterol HFA Inhale 1 puff Active (VENTOLIN HFA) 90 by mouth via mcg/actuation inhaler inhaler every 6 (six) hours as needed for Wheezing. atorvastatin Take 10 mg by Active (LIPITOR) 10 MG mouth daily. tablet lisinopril Take 40 mg by Active (PRINIVIL,ZESTRIL) 40 mouth daily. MG tablet amitriptyline Take 50 mg by Active (ELAVIL) 50 MG tablet mouth nightly. fluticasone-vilantero Inhale 1 puff Active l (BREO ELLIPTA) by mouth via 200-25 mcg/dose DsDv inhaler daily. tiZANidine (ZANAFLEX) Take 4 mg by Active 4 MG tablet mouth 3 (three) times daily as needed. primidone (MYSOLINE) Take 250 mg Active 250 MG tablet by mouth daily. topiramate (TOPAMAX) Take 100 mg Active 100 MG tablet by mouth 2 (two) times daily. warfarin (COUMADIN) Take 9 mg by Active 10 MG tablet mouth daily. betamethasone, Apply 1-2 3 12/22/2017 Active augmented, grams to the (DIPROLENE) 0.05 % affected area cream twice daily or as directed. Max 8g/day. doxycycline (MONODOX) Mix contents 3 12/22/2017 Active 100 MG capsule of 3 capsules into foot bath daily fentaNYL (DURAGESIC) 12/01/2017 Active 100 mcg/hr patch furosemide (LASIX) 40 TAKE ONE (1) 99 12/11/2017 Active MG tablet TABLET(S) BY MOUTH ONCE A DAY. HYDROcodone-acetamino 12/16/2017 Active phen (NORCO 10-325) 10-325 mg per tablet mupirocin (BACTROBAN) Mix contents 3 12/22/2017 Active 2 % ointment of one tube (22 grams) into foot bath daily nystatin (MYCOSTATIN) Apply 2-3g to 3 12/22/2017 Active 100,000 unit/gram affected area powder 2-4x/daiily OR DIRECTED. max 10g/day urea (CARMOL) 40 % Apply 1-2 3 12/22/2017 Active Crea topical cream grams to the affected area 3 to 4 times daily warfarin (COUMADIN) Take 11 mg by Discontinued 10 MG tablet mouth daily. 8 aspirin 81 MG EC Take 81 mg by Discontinued tablet mouth daily. 8 topiramate (TOPAMAX) Take 100 mg Discontinued 100 MG tablet by mouth 8 daily. enoxaparin (LOVENOX) Inject Discontinued 100 mg/mL Syrg subcutaneousl 8 y. levoFLOXacin Take 500 mg Discontinued (LEVAQUIN) 500 MG by mouth 8 tablet daily. minocycline Take 1 10 capsule 0 12/10/2017 (MINOCIN,DYNACIN) 100 capsule (100 8 MG capsule mg total) by mouth every 12 (twelve) hours for 5 days. 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[facility]) Atrial fibrillation (HCC) GI bleed 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HCC) Abdominal aortic aneurysm (AAA) (HCC) DVT (deep venous thrombosis) (HCC) Resolved Problems Problem Noted Date Resolved Date Stroke (HCC) 12/04/2017 Encounters Date Type Specialty Care Team Description 12/25/2017 Clinical Support Cardiology Gurinder Morelos MD 12/10/2017 Orders Only General Internal Medicine 12/09/2017 - Hospital Encounter Cardiology Pierreaminta, Abdominal aortic 12/10/2017 Christian Jolly, aneurysm (AAA) without MD rupture (HCC) 12/09/2017 Anesthesia Event Kye Nicole MD 12/09/2017 Procedure Pass 12/09/2017 Surgery Andreina, TAVR / KYLIE MCR - IP Christian Jolly, PROC ONLY 12/04/2017 - Hospital Encounter Cardiology Andreina 12/05/2017 Christian Jolly MD 12/04/2017 Procedure Pass 12/04/2017 Surgery 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, 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 ARTERY Christian Jolly MD 11/26/2017 Hospital Encounter Left without seen 11/26/2017 Office Visit Cardiology Belkis Parker congestive heart failure MD Charity (HCC);Atrial fibrillation, unspecified type (HCC);Gastrointestinal hemorrhage, unspecified gastrointestinal hemorrhage type;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);Abdominal aortic aneurysm (AAA) without rupture (HCC) 11/26/2017 Hospital Encounter Radiology Andreina Nonrheumatic aortic Christian Jolly, valve stenosis 11/26/2017 Hospital Encounter Radiology Andreina Nonrheumatic aortic Christian Jolly, valve stenosis 11/16/2017 Office Visit Cardiology Gurinder Morelos MD stenosis;Anemia, unspecified type;Essential hypertension;Hyperlipide pia, unspecified hyperlipidemia type;Cerebrovascular accident (CVA), unspecified mechanism (HCC);Chronic obstructive pulmonary disease, unspecified COPD type (HCC);Seizures (HCC);Peripheral vascular disease (HCC);Bilateral carotid artery occlusion;Aneurysm (HCC);Blood clotting tendency (HCC);Factor VIII deficiency (HCC) 11/10/2017 Outside Orders Central Scheduling Andreina Nonrheumatic aortic Christian Edviolet, valve stenosis (Primary MD Dx) after 12/29/2016 Social History Tobacco Use Types Packs/Day Years Used Date Former Smoker 1.5 50 Quit: 2010 Smokeless Tobacco: Current User Chew Comments: quit 2010 Alcohol Use Drinks/Week oz/Week Comments No Sex Assigned at Date Recorded Not on file Last Filed Vital Signs Vital Sign Reading Time Taken Blood Pressure 130/66 12/25/2017 11:52 AM CDT Pulse 84 12/25/2017 11:52 AM CDT Temperature 36.4 C (97.5 F) 12/25/2017 11:52 AM CDT Respiratory Rate 14 12/25/2017 11:52 AM CDT Oxygen Saturation 95% 12/25/2017 11:52 AM CDT Inhaled Oxygen Concentration - - Weight 77.6 kg (171 lb) 12/25/2017 11:52 AM CDT Height 170.2 cm (5' 7") 12/25/2017 11:52 AM CDT Body Mass Index 26.78 12/25/2017 11:52 AM CDT Plan of Treatment Health Maintenance Due Date Last Done Comments INFLUENZA VACCINE 05/10/2018 Implants Implanted Type Area Certified Emergency Vehicle Technician Device Expiration Model / Identifier Date Serial / Lot Amplatzer Vascular Plug Ii Cardiovascular [facility] 12/07/2021 9-[id number] -010 / Implanted: Qty: 1 on 12/04/2017 by Christian Hdz MD / [id number] Azur 18 Detachable Helical Hydrocoil Coil 08/15/2020 [id number] / Implanted: Qty: 1 on 12/04/2017 by Christian Hdz MD / [id number] Azur 35 Detachable Helical Hydrocoil Coil 05/09/2022 [id number] / Implanted: Qty: 1 on 12/04/2017 by Christian Hdz MD / [id number] Azur 35 Detachable Helical Hydrocoil Coil 05/09/2022 [id number] / Implanted: Qty: 1 on 12/04/2017 by Christian Hdz MD / [id number] Azur 35 Detachable Helical Hydrocoil Coil 05/09/2022 [id number] / Implanted: Qty: 1 on 12/04/2017 by Christian Hdz MD / [id number] Azur Cx 35 Detachable Cx Coil Coil 07/09/2021 [id number] / Implanted: Qty: 1 on 12/04/2017 by Christian Hdz MD / [id number] Azur Cx 35 Detachable Cx Coil Coil 02/06/2021 [id number] / Implanted: Qty: 1 on 12/04/2017 by Christian Hdz MD / [id number] Azur Cx 35 Detachable Cx Coil Coil 08/09/2021 [id number] / Implanted: Qty: 1 on 12/04/2017 by Christian Hdz MD / [id number] Azur 35 Detachable Helical Hydrocoil Coil 10/02/2020 [id number] / Implanted: Qty: 1 on 12/04/2017 by Christian Hdz MD / [id number] Azur Cx 35 Detachable Cx Coil Coil 08/09/2021 [id number] / Implanted: Qty: 1 on 12/04/2017 by Christian Hdz MD / [id number] Azur 18 Detachable Helical Hydrocoil Coil 06/09/2018 [id number] / Implanted: Qty: 1 on 12/04/2017 by Christian Hdz MD / [id number] Azur 18 Detachable Helical Hydrocoil Coil 05/23/2020 [id number] / Implanted: Qty: 1 on 12/04/2017 by Christian Hdz MD / [id number] Azur Cx 18 Detachable Cx Coil Coil 06/09/2021 [id number] / Implanted: Qty: 1 on 12/04/2017 by Christian Hdz MD / [id number] Azur Cx 18 Detachable Cx Coil Coil 05/09/2021 [id number] / Implanted: Qty: 1 on 12/04/2017 by Christian Hdz MD / [id number] Azur 35 Detachable Framing Coil Coil 10/07/2022 [id number] / Implanted: Qty: 1 on 12/04/2017 by Christian Hdz MD / [id number] Azur 35 Detachable Framing Coil Coil 10/07/2022 [id number] / Implanted: Qty: 1 on 12/04/2017 by Christian Hdz MD / [id number] Azur 35 Detachable Framing Coil Coil 10/07/2022 [id number] / Implanted: Qty: 1 on 12/04/2017 by Christian Hdz MD / [id number] Azur 35 Detachable Framing Coil Coil 10/07/2022 [id number] / Implanted: Qty: 1 on 12/04/2017 by Christian Hdz MD / [id number] Higgins Denilson 3 Thv Valves N/A: HIGGINS 08/20/2019 [id number] / Implanted: Qty: 1 on 12/09/2017 by Christian Hdz MD Heart Nekted [id number] / Procedures Procedure Name Priority Date/Time Associated Diagnosis Comments TAVR / KYLIE MCR - IP 12/09/2017 4:10 AM Aortic valve stenosis, PROC ONLY CDT nonrheumatic Case Notes (1) Case, 6T OP, MAC ANESTHESIA. 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 PLAYER MECHANIC FEMORAL &/OR POPLITEAL 12/04/2017 7:35 AM CDT PVD (peripheral vascular disease) ([facility]) Case Notes (2) POP6 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 ARTERY 12/04/2017 7:35 AM CDT PVD (peripheral vascular disease) (HCC) Case Notes (2) POP6 after 12/29/2016 Results TRANSFUSION SERVICE REPORT - SCAN (12/14/2017 5:41 PM)Only the most recent of4 resultswithin the time period is included.ECHOCARDIOGRAM REPORT - SCAN (2017 3:24 PM)Only the most recent of2 resultswithin the time period is included.EKG-SCANNED (12/11/2017 12:40 PM)Only the most recent of2 resultswithin the time period is included.CARDIAC CATH REPORT - SCAN (2017 12:40 PM)Only the most recent of3 resultswithin the time period is included.RHYTHM STRIP - SCAN (12/11/2017 12:40 PM)Only the most recent of2 resultswithin the time period is included.Prepare RBC (12/10/2017 4:05 PM) Component Value Ref Range Unit ABO O Pos UNIT NUMBER [id number] Status WORK IN PROGRESS Blood Bank Product RED BLOOD CELLS PRODUCT CODE A5572E85 Unit ABO O Pos UNIT NUMBER [id number] Status WORK IN PROGRESS Blood Bank Product RED BLOOD CELLS PRODUCT CODE B3025W67 CROSSMATCH COMPATIBLE CROSSMATCH COMPATIBLE Specimen Performing Laboratory [facility] [place] 2D Echo W/Doppler(CW/PW/Color) (12/10/2017 8:51 AM) Component Value Ref Range Ejection Fraction Specimen Performing Laboratory [facility] CPACS Narrative Transthoracic Echocardiography Report (TTE) Demographics Patient Name WALTER MCKEON Date of Study 12/10/2017 DOROTEO [id number] Male Visit Number [id number] Room Number C632.2 Number Date of Birth1945Referring Physician Christian Hdz MD 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 Clinical History TAVR Higgins 26 mm 12/09/2017 HGB 8.3 HCT 27.9 % ABD AA, ANEMIA, A-FIB, DVT (09/2017), BCC, CHF, COPD, PVD, SZ, FACTOR 8 DEFICIENCY, GIB, MURMUR, HLD, HTN, , CVA, TIA, FORMER SMOKER, AAA REPAIR (2005) Contrast Medium: Definity. Amount - 2 ml Height: 67 inches Weight: 79.38 kg (175 lbs) BSA: 1.91 m^2 BMI: 27.41 kg/m^2 HR: 77 bpm BP: 142/77 mmHg Summary The left ventricle is chamber size (by vol index) is mildly enlarged (male - LVED 75-89ml/m2). Mild concentric LV hypertrophy. All of the LV segments are hyperkinetic . Global LV systolic function hyperdynamic . LVEF by Campuzano's method of disk assessment is increased (>70%) . Grade 1 diastolic dysfunction (impaired relaxation and low-normal LA pressure). A Denilson percutaneous (TAVR) biologic AoV prosthesis is visualized . The prosthetic AoV appears well-seated. AoV dimensionless obstructive index (DOI)) is 0.69 . Prosthetic AoV regurgitaton is not demonstrated . Unable to estimate peak systolic PA pressure; inadequate TR velocity signal. No pericardial effusion is visualized. Previous Study In comparison with the prior exam 12/09/2017 (UZAIR) the following changes are noted: patient has undergone a TAVR procedure . Signature Findings Technical Quality: Technically adequate exam. Left Ventricle LV endocardium is adequately visualized with IV ultrasound enhancing agent. The left ventricle is chamber size (by vol index) is mildly enlarged (male - LVED 75-89ml/m2). Mild concentric LV hypertrophy. All of the LV segments are hyperkinetic . Global LV systolic function hyperdynamic . LVEF by Campuzano' s method of disk assessment is increased (>70%) . The LVEF was measured using Campuzano's bi-plane method of disk . High (cardiac index >4 L/min/m2 ) cardiac output state at rest is noted. Grade 1 diastolic dysfunction (impaired relaxation and low-normal LA pressure). Left AtriumLA is incompletely visualized, size based on linear measurement. LA size is normal . Right VentricleThe right ventricular chamber size and systolic function are within normal limits. Right Atrium RA cavity size is normal . Aortic Valve A Denilson percutaneous (TAVR) biologic AoV prosthesis is visualized . The prosthetic AoV appears well-seated. AoV dimensionless obstructive index (DOI)) is 0.69 . Prosthetic AoV regurgitaton is not demonstrated . Mitral Valve Mild mitral annular calcification. Trace mitral regurgitation. Tricuspid ValveTV structure is normal. A trace of tricuspid regurgitation. Unable to estimate peak systolic PA pressure; inadequate TR velocity signal. Pulmonic Valve PV is not well visualized; function appears normal by Doppler visualized. AortaAortic root size (SInus of Valsalva diameter) is indeterminate (not well seen) . PericardiumNo pericardial effusion is visualized. IVC/SVC/PA/PV/PleuralThe inferior vena cava is adequately visualized. The inferior vena cava size is normal . The estimated RA pressure by IVC dynamics 5-10mmHg . Chambers/Structures Left Atrium LA Dimension: 3.36 cm Left Ventricle LVIDd: 4.19 cm LVIDs: 3.02 cm LV Septum Diastolic: 1.23 cm LV PW Diastolic: 1.21 cmLV FS: 27.9 % LVEDV Campuzano's:146.24 ml LVESV Campuzano's:35.28 mlLVEDVI: 77 ml/ m^2 LVEF Campuzano's: 75.9 %LVESVI: 18 ml/m^2 LVOT Diameter: 2.12 cm Doppler/Quantitative Measurements Mitral Valve MV Peak E-Wave: 0.84 m/s MV Peak A-Wave: 1.11 m/s E/A Ratio: 0.76 Peak Gradient: 2.81 mmHg Deceleration Time: 325.4 msec MV Sherman. Peak: Aortic Valve Peak Velocity: 2.6 m/s Mean Velocity: 1.68 m/s Peak Gradient: 27.11 mmHgMean Gradient: 13.18 mmHg AV Area (continuity): 2.44 cm^2 AV VTI: 42.29 cm AV DVI: 0.69 LVOT Peak Velocity: 1.59 m/sPeak Gradient: 10.07 mmHg Mean Velocity: 1.1 m/s Mean Gradient: 5.58 mmHg LVOT Diameter: 2.12 cm LVOT VTI: 29.3 cm LVOT Area: 3.53 cm^2 LVOT SV:103.37 ml LVOT CO: 7.96 l/minLVOT CI: 4.17 l/min/m^2 Procedure Note Interface, External Ris In - 12/10/2017 11:31 AM CDT Transthoracic Echocardiography Report (TTE) Demographics Patient Name WALTER MCKEON Date of Study 12/10/2017 DOROTEO Gender Male Visit Number [id number] Race Room Number C632.2 Number Date of 1945 Referring Physician Christian Hdz MD Age 72 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 Clinical History TAVR Higgins 26 mm 12/09/2017 HGB 8.3 HCT 27.9 % ABD AA, ANEMIA, A-FIB, DVT (09/2017), BCC, CHF, COPD, PVD, SZ, FACTOR 8 DEFICIENCY, GIB, MURMUR, HLD, HTN, , CVA, TIA, FORMER SMOKER, AAA REPAIR (2005) Contrast Medium: Definity. Amount - 2 ml Height: 67 inches Weight: 79.38 kg (175 lbs) BSA: 1.91 m^2 BMI: 27.41 kg/m^2 HR: 77 bpm BP: 142/77 mmHg Summary The left ventricle is chamber size (by vol index) is mildly enlarged (male - LVED 75-89ml/m2). Mild concentric LV hypertrophy. All of the LV segments are hyperkinetic . Global LV systolic function hyperdynamic . LVEF by Campuzano's method of disk assessment is increased (>70%) . Grade 1 diastolic dysfunction (impaired relaxation and low-normal LA pressure). A Denilson percutaneous (TAVR) biologic AoV prosthesis is visualized . The prosthetic AoV appears well-seated. AoV dimensionless obstructive index (DOI)) is 0.69 . Prosthetic AoV regurgitaton is not demonstrated . Unable to estimate peak systolic PA pressure; inadequate TR velocity signal. No pericardial effusion is visualized. Previous Study In comparison with the prior exam 12/09/2017 (UZAIR) the following changes are noted: patient has undergone a TAVR procedure . Signature Findings Technical Quality: Technically adequate exam. Left Ventricle LV endocardium is adequately visualized with IV ultrasound enhancing agent. The left ventricle is chamber size (by vol index) is mildly enlarged (male - LVED 75-89ml/m2). Mild concentric LV hypertrophy. All of the LV segments are hyperkinetic . Global LV systolic function hyperdynamic . LVEF by Campuzano's method of disk assessment is increased (>70%) . The LVEF was measured using Campuzano's bi-plane method of disk . High (cardiac index >4 L/min/m2) cardiac output state at rest is noted. Grade 1 diastolic dysfunction (impaired relaxation and low-normal LA pressure). Left Atrium LA is incompletely visualized, size based on linear measurement. LA size is normal . Right Ventricle The right ventricular chamber size and systolic function are within normal limits. Right Atrium RA cavity size is normal . Aortic Valve A Denilson percutaneous (TAVR) biologic AoV prosthesis is visualized . The prosthetic AoV appears well-seated. AoV dimensionless obstructive index (DOI)) is 0.69 . Prosthetic AoV regurgitaton is not demonstrated . Mitral Valve Mild mitral annular calcification. Trace mitral regurgitation. Tricuspid Valve TV structure is normal. A trace of tricuspid regurgitation. Unable to estimate peak systolic PA pressure; inadequate TR velocity signal. Pulmonic Valve PV is not well visualized; function appears normal by Doppler visualized. Aorta Aortic root size (SInus of Valsalva diameter) is indeterminate (not well seen) . Pericardium No pericardial effusion is visualized. IVC/SVC/PA/PV/Pleural The inferior vena cava is adequately visualized. The inferior vena cava size is normal . The estimated RA pressure by IVC dynamics 5-10mmHg . Chambers/Structures Left Atrium LA Dimension: 3.36 cm Left Ventricle LVIDd: 4.19 cm LVIDs: 3.02 cm LV Septum Diastolic: 1.23 cm LV PW Diastolic: 1.21 cm LV FS: 27.9 % LVEDV Campuzano's:146.24 ml LVESV Campuzano's:35.28 ml LVEDVI: 77 ml/m^2 LVEF Campuzano's: 75.9 % LVESVI: 18 ml/m^2 LVOT Diameter: 2.12 cm Doppler/Quantitative Measurements Mitral Valve MV Peak E-Wave: 0.84 m/s MV Peak A-Wave: 1.11 m/s E/A Ratio: 0.76 Peak Gradient: 2.81 mmHg Deceleration Time: 325.4 msec MV Sherman. Peak: Aortic Valve Peak Velocity: 2.6 m/s Mean Velocity: 1.68 m/s Peak Gradient: 27.11 mmHg Mean Gradient: 13.18 mmHg AV Area (continuity): 2.44 cm^2 AV VTI: 42.29 cm AV DVI: 0.69 LVOT Peak Velocity: 1.59 m/s Peak Gradient: 10.07 mmHg Mean Velocity: 1.1 m/s Mean Gradient: 5.58 mmHg LVOT Diameter: 2.12 cm LVOT VTI: 29.3 cm LVOT Area: 3.53 cm^2 LVOT SV:103.37 ml LVOT CO: 7.96 l/min LVOT CI: 4.17 l/min/m^2 ECG 12 lead (12/10/2017 5:43 AM) Specimen Performing Laboratory GE MUSE Narrative Ventricular Rate 80 BPM Atrial Rate 80 BPM P-R Interval 160 ms QRS Duration 92 ms Q-T Interval 394 ms QTC Calculation(Bazett) 454 ms P Irvine 60 degrees R Irvine -32 degrees T Irvine 75 degrees Normal sinus rhythm Left axis deviation Nonspecific T wave abnormality Abnormal ECG No previous ECGs available Confirmed by Silvia DUPONT BASANT ([id number]) on 12/10/2017 7:41:25 PM Procedure Note Interface, External Ris In - 12/10/2017 7:41 PM CDT Ventricular Rate 80 BPM Atrial Rate 80 BPM P-R Interval 160 ms QRS Duration 92 ms Q-T Interval 394 ms QTC Calculation(Bazett) 454 ms P Irvine 60 degrees R Irvine -32 degrees T Irvine 75 degrees Normal sinus rhythm Left axis deviation Nonspecific T wave abnormality Abnormal ECG No previous ECGs available Confirmed by Silvia DUPONT BASANT (Farhat) on 12/10/2017 7:41:25 PM CBC (Hemogram only) (12/10/2017 5:18 AM)Only the most recent of2 resultswithin the time period is included. Component Value Ref Range WBC 8.3 3.5 - 10.5 K/L RBC 3.40 (L) 4.63 - 6.08 M/L Hemoglobin 8.3 (L) 13.7 - 17.5 GM/DL Hematocrit 27.9 (L) 40.1 - 51.0 % MCV 82.1 79.0 - 92.2 fL MCH 24.4 (L) 25.7 - 32.2 pg MCHC 29.7 (L) 32.3 - 36.5 GM/DL RDW 20.0 (H) 11.6 - 14.4 % Platelets 276 150 - 450 K/CU MM MPV 10.2 9.4 - 12.4 fL nRBC 0 0 - 0 /100 WBC Specimen Performing Laboratory Blood - Arm, [address] [address] Basic metabolic panel (12/10/2017 5:18 AM)Only the most recent of2 resultswithin the time period is included. Component Value Ref Range Sodium 131 (L) 136 - 145 meq/L Potassium 3.8 3.5 - 5.1 meq/L Chloride 96 (L) 98 - 107 meq/L CO2 28 22 - 29 meq/L BUN 9 7 - 21 mg/dL Creatinine 0.95 0.57 - 1.25 mg/dL Glucose 110 (H) 70 - 105 mg/dL Calcium 8.4 8.4 - 10.2 mg/dL EGFR 77Comment: ESTIMATED GFR IS NOT ACCURATE mL/min/1.73 sq m CREATININE CLEARANCE IN PREDICTING GLOMERULAR FILTRATION RATE. ESTIMATED GFR IS NOT APPLICABLE FOR DIALYSIS PATIENTS. Specimen Performing Laboratory Blood - Arm, [address] [address] Antibody identification (12/09/2017 6:34 PM)Only the most recent of2 resultswithin the time period is included. Component Value Ref Range ANTIBODY ID (BEAKER) Anti-EComment: Anti-E previously identified. Antibody Consult SIGNED OUTComment: Previously identified anti-E remains detectable. Since this is a clinically significant IgG antibody, RBCs that are E-negative and crossmatch-compatible should be selected for transfusion purposes. Electronic Signature: Cindi Bojorquez MD Specimen Performing Laboratory [facility] [place] Prepare Leuko-Red RBC (12/09/2017 11:18 AM) Component Value Ref Range Unit ABO O Pos UNIT NUMBER [id number] Status RETURNED FROM ISSUE Blood Bank Product RED BLOOD CELLS PRODUCT CODE J1857W48 Unit ABO O Pos UNIT NUMBER [id number] Status RETURNED FROM ISSUE Blood Bank Product RED BLOOD CELLS PRODUCT CODE A2958J41 Unit ABO O Pos UNIT NUMBER [id number] Status RETURNED FROM ISSUE Blood Bank Product RED BLOOD CELLS PRODUCT CODE J6171D16 Unit ABO O Pos UNIT NUMBER [id number] Status RETURNED FROM ISSUE Blood Bank Product RED BLOOD CELLS PRODUCT CODE B7658G41 CROSSMATCH COMPATIBLE CROSSMATCH COMPATIBLE CROSSMATCH COMPATIBLE CROSSMATCH COMPATIBLE Specimen Performing Laboratory Other [facility] [place] POC ACTIVATED CLOTTING TIME (12/09/2017 9:43 AM)Only the most recent of5 resultswithin the time period is included. Component Value Ref Range Activated Clotting Time 224Comment: TESTED AT [address] sec [address] Specimen Performing Laboratory Blood [address] [address] [facility] (ABG,NA,K,H&H,GLUCOSE) (12/09/2017 9:34 AM) Specimen Performing Laboratory Blood, Arterial Narrative The following orders were created for panel order [facility] (ABG,NA,K,H&H,GLUCOSE). Procedure Abnormality Status --------- ------ Blood gas, arterial[[id number]]AbnormalFinal result Sodium Na-Stat Lab[[id number]] AbnormalFinal result Potassium-Stat Lab[[id number]] AbnormalFinal result Glucose-Stat Lab[[id number]] AbnormalFinal result HGB/HCT (H&H)-Stat Lab[[id number]] Abnormal Final result Please view results for these tests on the individual orders. Potassium-Stat Lab (12/09/2017 9:34 AM) Component Value Ref Range Potassium 3.1 (L) 3.6 - 5.5 meq/L Specimen Performing Laboratory Blood, Arterial [address] [address] Sodium Na-Stat Lab (12/09/2017 9:34 AM) Component Value Ref Range Sodium 131 (L) 135 - 148 meq/L Specimen Performing Laboratory Blood, Arterial [address] [address] Glucose-Stat Lab (12/09/2017 9:34 AM) Component Value Ref Range Glucose 121 (H) 70 - 110 mg/dL Specimen Performing Laboratory Blood, Arterial [address] [address] HGB/HCT (H&H)-Stat Lab (12/09/2017 9:34 AM) Component Value Ref Range Hemoglobin 8.1 (L) 13.0 - 16.8 g/dL Hematocrit 24.0 (L) 40.0 - 50.0 % Specimen Performing Laboratory Blood, Arterial [address] [address] Blood gas, arterial (12/09/2017 9:34 AM) Component Value Ref Range pH, Arterial 7.33 (L) 7.35 - 7.45 pCO2, Arterial 48 (H) 35 - 45 mmHg pO2, Arterial 198 (H) 80 - 90 mmHg O2 Sat, Arterial 99.3 (H) 96.0 - 97.0 % HCO3, Arterial 25 21 - 29 mmol/L Base Excess, Arterial -1.5 -2.0 - 3.0 mmol/L Patient Temperature 36.2 C FIO2 46.0 % Specimen Performing Laboratory Blood, Arterial [address] [address] Transesophageal echo (12/09/2017 7:57 AM) Component Value Ref Range Ejection Fraction Specimen Performing Laboratory [facility] Narrative Transesophageal Echocardiography Report (UZAIR) Demographics Patient Name WALTER MCKEON Date of Study 12/09/2017 DOROTEO [id number] Male Visit Number [id number] Room Number C632.2 Number Date of Birth1945Referring Physician Andreina Gonzales MD 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 Clinical History ,AAA,ANEMIA,A-FIB,CANCER,CHF,COPD,DEPRESSION,PRUITT,DVT,GI BLEED,HLD,HTN,PVD, Height: 67 inches Weight: 79.38 kg (175 lbs) BSA: 1.91 m^2 BMI: 27.41 kg/m^2 HR: 87 bpm BP: 143/68 mmHg Procedure Informed Consent UZAIR procedure notes UZAIR performed in lab head. . Summary S/p Higgins Denilson [employer] 26 mm TAVR Post deployment of the valve the leaftlets open well without evidence of residual stenosis. No aortic regurgitation or paravavular leak. No pericardial effusion noted. Followup TTE for gradient assessment to follow. Signature Findings Rhythm/BPRegular sinus rhythm during the exam. Regular sinus rhythm during the exam. Left Ventricle Grossly normal left ventricular chamber size and overall left ventricular systolic function. Left AtriumLA size is grossly normal. Right VentricleGrossly the right ventricular chamber size and systolic function are within normal limits. Right Atrium The right atrium is not well visualized. Atrial SeptumThe interatrial septum is not well visualized. Aortic Valve Heavily calcified aortic valve, leaflets do not open well, no gradients recorded based on prior studies there is severe aortic stenosis. By color doppler there is mild to moderate AI. Mitral Valve Hzsl-mn-kmwkwfia MV leaflet thickening. Mild mitral regurgitation. No stenosis. Tricuspid ValveMild thickening, , mild to moderate TR in limited views. Pulmonic Valve Not well visualized. AortaAortic root size (SInus of Valsalva diameter) is normal . PericardiumNo significant pericardial effusion is visualized. IVC/SVC/PA/PV/PleuralNot well visualized. 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 Clinical History ,AAA,ANEMIA,A-FIB,CANCER,CHF,COPD,DEPRESSION,PRUITT,DVT,GI BLEED,HLD,HTN,PVD, Height: 67 inches Weight: 79.38 kg (175 lbs) BSA: 1.91 m^2 BMI: 27.41 kg/m^2 HR: 87 bpm BP: 143/68 mmHg Procedure Informed Consent UZAIR procedure notes UZAIR performed in lab head. . Summary S/p Higgins [employer] 26 mm TAVR Post deployment of the valve the leaftlets open well without evidence of residual stenosis. No aortic regurgitation or paravavular leak. No pericardial effusion noted. Followup TTE for gradient assessment to follow. Signature Findings Rhythm/BP Regular sinus rhythm during the exam. Regular sinus rhythm during the exam. Left Ventricle Grossly normal left ventricular chamber size and overall left ventricular systolic function. Left Atrium LA size is grossly normal. Right Ventricle Grossly the right ventricular chamber size and systolic function are within normal limits. Right Atrium The right atrium is not well visualized. Atrial Septum The interatrial septum is not well visualized. Aortic Valve Heavily calcified aortic valve, leaflets do not open well, no gradients recorded based on prior studies there is severe aortic stenosis. By color doppler there is mild to moderate AI. Mitral Valve Jlyv-qt-mcncjsfi MV leaflet thickening. Mild mitral regurgitation. No stenosis. Tricuspid Valve Mild thickening, , mild to moderate TR in limited views. Pulmonic Valve Not well visualized. Aorta Aortic root size (SInus of Valsalva diameter) is normal . Pericardium No significant pericardial effusion is visualized. IVC/SVC/PA/PV/Pleural Not well visualized. VASCULAR DIAGRAM -SCAN (12/09/2017 7:10 AM)Type and screen, automated (2017 6:26 AM)Only the most recent of2 resultswithin the time period is included. Component Value Ref Range ABO/RH AUTOMATED (BEAKER) O POSITIVE Ab Scrn POSITIVEComment: ECHO 2 Specimen Performing Laboratory Blood [address] [address] CBC with platelet count + automated diff [...] - 1 % Specimen Performing Laboratory Blood [address] [address] Prothrombin time/INR (11/26/2017 4:41 PM) Component Value Ref Range Protime 16.5 (H) 11.7 - 14.7 seconds INR 1.3 <=5.9 Specimen Performing Laboratory Blood [address] [address] Narrative RECOMMENDED COUMADIN/WARFARIN INR THERAPY RANGES STANDARD [...] Status --------- ------ CBC with platelet count ...[[id number]]AbnormalFinal result Please view results for these tests on the individual orders. B-type Natriuretic Factor (BNP) (11/26/2017 4:41 PM) Component Value Ref Range BNP 142 (H) 0 - 100 pg/mL Specimen Performing Laboratory Blood [address] [address] Comprehensive metabolic panel (11/26/2017 4:41 PM) Component [...] FOR DIALYSIS PATIENTS. Specimen Performing Laboratory Blood [address] [address] CTA chest (11/26/2017 12:56 PM) Specimen Performing Laboratory GE RIS Narrative Addendum Begins REPORT STATUS:A Addendum: The images were reviewed with Dr. Hdz. There is a missing dictation, specifically, despite the aortic bypass surgery the [place] left common iliac artery is still patent with retrograde filling from the left external iliac artery, with aneurysmal dilation identified. Image 466, it measures approximately 4.3 x 4.2 cm in diameter. Some intraluminal thrombus is seen. This is the left common iliac artery. The left internal iliac artery is also patent, with calcification present. Signed: Juwan Ramirez MD Report Verified Date/Time:11/27/2017 11:56:33 Reading Location: [facility] P047 Cardiology MRI Addendum Ends Addendum Begins [...] MD Report Verified Date/Time:11/26/2017 18:03:42 Reading Location: [facility] P048 Angio Body Reading Room Addendum Ends [...] takeoff of the left renal artery with xpyr-la-sdcohohb stenosis identified. Arch vessel branching pattern is [...] and 8.2 mm, respectively with mildtortuosity and faja-ko-pmbwwssjwslqbdhn atherosclerosis present. Right iliac limb is patent. [...] dictated, however, the ordering physician is the [employer] HELPER SLOT SERVICE SPECIALIST of the [facility] and therefore no recommendation would be necessary. [...] 4.An addendum will be dictated by the Advertising Sales Manager Radiologist regarding the nonvascular findings. Signed: Juwan Ramirez MD Report Verified Date/Time:11/26/2017 16:25:25 Reading Location: [place] [address] Cardiology MRI Procedure Note Interface, External Ris In - 11/27/2017 11:58 AM CDT Addendum Begins REPORT STATUS:A Addendum: The images were reviewed with Dr. Hdz. There is a missing dictation, specifically, despite the aortic bypass surgery the [place] left common iliac artery is still patent with retrograde filling from the left external iliac artery, with aneurysmal dilation identified. Image 466, it measures approximately 4.3 x 4.2 cm in diameter. Some intraluminal thrombus is seen. This is the left common iliac artery. The left internal iliac artery is also patent, with calcification present. Signed: Juwan Ramirez MD Report Verified Date/Time: 11/27/2017 11:56:33 Reading Location: [facility] P047 Cardiology MRI Addendum Ends Addendum Begins [...] Report Verified Date/Time: 11/26/2017 18:03:42 Reading Location: [facility] P048 Angio Body Reading Room Addendum Ends [...] takeoff of the left renal artery with riqb-mv-emtsgvqh stenosis identified. Arch vessel branching pattern is [...] 8.2 mm, respectively with mild tortuosity and jjhb-ut-pwfremob calcific atherosclerosis present. Right iliac limb is [...] dictated, however, the ordering physician is the [employer] HELPER SLOT SERVICE SPECIALIST of the [facility] and therefore no recommendation would be necessary. [...] An addendum will be dictated by the Advertising Sales Manager Radiologist regarding the nonvascular findings. Signed: Juwan Ramirez MD Report Verified Date/Time: 11/26/2017 16:25:25 Reading Location: [facility] P047 Cardiology MRI abdomen & pelvis (11/26/2017 12:56 PM) Specimen Performing Laboratory [facility] Narrative Addendum Begins REPORT STATUS:A Addendum: The images were reviewed with Dr. Hdz. There is a missing dictation, specifically, despite the aortic bypass surgery the [place] left common iliac artery is still patent with retrograde filling from the left external iliac artery, with aneurysmal dilation identified. Image 466, it measures approximately 4.3 x 4.2 cm in diameter. Some intraluminal thrombus is seen. This is the left common iliac artery. The left internal iliac artery is also patent, with calcification present. Signed: Juwan Ramirez MD Report Verified Date/Time:11/27/2017 11:56:33 Reading Location: [facility] P047 Cardiology MRI Addendum Ends Addendum Begins [...] MD Report Verified Date/Time:11/26/2017 18:03:42 Reading Location: [facility] P048 Angio Body Reading Room Addendum Ends [...] takeoff of the left renal artery with ovgf-ud-sqhlgaca stenosis identified. Arch vessel branching pattern is [...] and 8.2 mm, respectively with mildtortuosity and gdkb-xs-fcmqikwondnrizui atherosclerosis present. Right iliac limb is patent. [...] dictated, however, the ordering physician is the [employer] HELPER SLOT SERVICE SPECIALIST of the [facility] and therefore no recommendation would be necessary. [...] 4.An addendum will be dictated by the Advertising Sales Manager Radiologist regarding the nonvascular findings. Signed: Juwan Ramirez MD Report Verified Date/Time:11/26/2017 16:25:25 Reading Location: [facility] P047 Cardiology MRI Procedure Note Interface, External Ris In - 11/27/2017 11:58 AM CDT Addendum Begins REPORT STATUS:A Addendum: The images were reviewed with Dr. Hdz. There is a missing dictation, specifically, despite the aortic bypass surgery the [place] left common iliac artery is still patent with retrograde filling from the left external iliac artery, with aneurysmal dilation identified. Image 466, it measures approximately 4.3 x 4.2 cm in diameter. Some intraluminal thrombus is seen. This is the left common iliac artery. The left internal iliac artery is also patent, with calcification present. Signed: Juwan Ramirez MD Report Verified Date/Time: 11/27/2017 11:56:33 Reading Location: [facility] P047 Cardiology MRI Addendum Ends Addendum Begins [...] Report Verified Date/Time: 11/26/2017 18:03:42 Reading Location: [facility] P048 Angio Body Reading Room Addendum Ends [...] and during intravenous contrast administration using a Lkue multidetector CT scanner. Images were obtained before [...] takeoff of the left renal artery with llid-bk-etmnnggl stenosis identified. Arch vessel branching pattern is [...] 8.2 mm, respectively with mild tortuosity and kczq-xr-adclmljo calcific atherosclerosis present. Right iliac limb is [...] dictated, however, the ordering physician is the [employer] HELPER SL[employer] SERVICE SPECIALIST of the [facility] and therefore no recommendation would be necessary. [...] An addendum will be dictated by the Advertising Sales Manager Radiologist regarding the nonvascular findings. Signed: Juwan Ramirez MD Report Verified Date/Time: 11/26/2017 16:25:25 Reading Location: [place] [address] Cardiology MRI -Creatinine (11/26/2017 11:51 AM) Component Value Ref Range POC-Creatinine 1.1Comment: TESTED AT [facility] [address] [place] [address] 0.6 - 1.3 mg/dL [address] POC-EGFR 65 mL/min/1.73M2 Specimen Performing Laboratory Blood [facility] [address] [place] [address] after 12/29/2016
--- OUTSIDE RECORDS SUMMARY | 2017-12-30 19:07 | XMS REPORT ---
:1945 [facility] Address [address] [place] [address] Dr. Dennison [address] [place] [id number] Care Team Providers Name Role Phone NANDO HDZ Unavailable Unavailable Problems This patient has no known problems. Allergies, Adverse Reactions, Alerts This patient has no known allergies or adverse reactions. Medications This patient has no known medications. Results Test Description Test Time Test Comments Text Results Atomic Results Result Comments BASIC METABOLIC PANEL 2017-12-10 06:41:00 Test Item Value Reference Range Comments SODIUM (BEAKER) (test 131 meq/L 136-145 jbiy=683) POTASSIUM (BEAKER) (test 3.8 meq/L 3.5-5.1 srnh=800) CHLORIDE (BEAKER) (test 96 meq/L 98-107 nvxh=979) CO2 (BEAKER) (test tump=311) 28 meq/L 22-29 BLOOD UREA NITROGEN (BEAKER) 9 mg/dL 7-21 (test ydkc=503) CREATININE (BEAKER) (test 0.95 mg/dL 0.57-1.25 nnqr=290) GLUCOSE RANDOM (BEAKER) 110 mg/dL 70-105 (test nedv=397) CALCIUM (BEAKER) (test 8.4 mg/dL 8.4-10.2 ttwl=697) EGFR (BEAKER) (test 77 mL/min/1.73 sq m ESTIMATED GFR IS NOT fctn=6641) ACCURATE CREATININE CLEARANCE IN PREDICTING GLOMERULAR FILTRATION RATE. ESTIMATED GFR IS NOT APPLICABLE FOR DIALYSIS PATIENTS. CBC (HEMOGRAM ONLY)2017-12-10 05:53:00 Test Item Value Reference Range Comments WHITE BLOOD CELL COUNT (BEAKER) (test etyc=247) 8.3 K/ L 3.5-10.5 RED BLOOD CELL COUNT (BEAKER) (test xhch=336) 3.40 M/ L 4.63-6.08 HEMOGLOBIN (BEAKER) (test knof=044) 8.3 GM/DL 13.7-17.5 HEMATOCRIT (BEAKER) (test scvk=497) 27.9 % 40.1-51.0 MEAN CORPUSCULAR VOLUME (BEAKER) (test sabk=664) 82.1 fL 79.0-92.2 MEAN CORPUSCULAR HEMOGLOBIN (BEAKER) (test 24.4 pg 25.7-32.2 aodv=356) MEAN CORPUSCULAR HEMOGLOBIN CONC (BEAKER) (test 29.7 GM/DL 32.3-36.5 qogf=111) RED CELL DISTRIBUTION WIDTH (BEAKER) (test 20.0 % 11.6-14.4 bjcf=223) PLATELET COUNT (BEAKER) (test ddwf=350) 276 K/CU MM 150-450 MEAN PLATELET VOLUME (BEAKER) (test uhpd=588) 10.2 fL 9.4-12.4 NUCLEATED RED BLOOD CELLS (BEAKER) (test 0 /100 WBC 0-0 lafb=410) BLOOD GAS, [id number] 10:39:00 Test Item Value Reference Range Comments PH ARTERIAL (BEAKER) (test wnph=658) 7.33 7.35-7.45 PCO2 ARTERIAL (BEAKER) (test rckc=121) 48 mmHg 35-45 PO2 ARTERIAL (BEAKER) (test hqqa=532) 198 mmHg 80-90 O2 SATURATION ARTERIAL (BEAKER) (test dpko=704) 99.3 % 96.0-97.0 HCO3 ARTERIAL (BEAKER) (test tzcm=052) 25 mmol/L 21-29 BASE EXCESS ARTERIAL (BEAKER) (test wbzk=603) -1.5 mmol/L -2.0-3.0 PATIENT TEMPERATURE (BEAKER) (test prdl=1092) 36.2 C FIO2 (BEAKER) (test wsxk=3304) 46.0 % SODIUM NA-STAT [id number] 10:39:00 Test Item Value Reference Range Comments SODIUM (BEAKER) (test jkdi=139) 131 meq/L 135-148 POTASSIUM-STAT [id number] 10:39:00 Test Item Value Reference Range Comments POTASSIUM (BEAKER) (test zcoo=231) 3.1 meq/L 3.6-5.5 GLUCOSE-STAT [id number] 10:39:00 Test Item Value Reference Range Comments GLUCOSE RANDOM (BEAKER) (test ttsl=008) 121 mg/dL 70-110 HGB/HCT (H&H) - STAT [id number] 10:39:00 Test Item Value Reference Range Comments HEMOGLOBIN (BEAKER) (test hlrx=057) 8.1 g/dL 13.0-16.8 HEMATOCRIT (BEAKER) (test xmom=345) 24.0 % 40.0-50.0 [id number] 10:10:00 Test Item Value Reference Range Comments ACTIVATED CLOTTING TIME [address] [facility] [address] [facility] (BEAKER) (test onfs=825) [facility] [address] CBC (HEMOGRAM ONLY)2017-12-05 06:51:00 Test Item Value Reference Range Comments WHITE BLOOD CELL COUNT (BEAKER) (test wklo=624) 6.4 K/ L 3.5-10.5 RED BLOOD CELL COUNT (BEAKER) (test ohoh=062) 3.63 M/ L 4.63-6.08 HEMOGLOBIN (BEAKER) (test pfnq=147) 9.0 GM/DL 13.7-17.5 HEMATOCRIT (BEAKER) (test pqap=905) 30.4 % 40.1-51.0 MEAN CORPUSCULAR VOLUME (BEAKER) (test clyj=463) 83.7 fL 79.0-92.2 MEAN CORPUSCULAR HEMOGLOBIN (BEAKER) (test 24.8 pg 25.7-32.2 irga=923) MEAN CORPUSCULAR HEMOGLOBIN CONC (BEAKER) (test 29.6 GM/DL 32.3-36.5 tuei=906) RED CELL DISTRIBUTION WIDTH (BEAKER) (test 20.3 % 11.6-14.4 ulqi=762) PLATELET COUNT (BEAKER) (test cqgg=989) 275 K/CU MM 150-450 MEAN PLATELET VOLUME (BEAKER) (test kyjf=626) 9.8 fL 9.4-12.4 NUCLEATED RED BLOOD CELLS (BEAKER) (test 0 /100 WBC 0-0 aoaw=772) BASIC METABOLIC [id number] 06:44:00 Test Item Value Reference Range Comments SODIUM (BEAKER) (test 134 meq/L 136-145 erjd=084) POTASSIUM (BEAKER) (test 4.1 meq/L 3.5-5.1 panf=859) CHLORIDE (BEAKER) (test 102 meq/L 98-107 ykra=540) CO2 (BEAKER) (test 24 meq/L 22-29 ulzw=804) BLOOD UREA NITROGEN 9 mg/dL 7-21 (BEAKER) (test lscj=933) CREATININE (BEAKER) (test 1.01 mg/dL 0.57-1.25 gwdj=880) GLUCOSE RANDOM (BEAKER) 93 mg/dL 70-105 (test ncpu=080) CALCIUM (BEAKER) (test 8.7 mg/dL 8.4-10.2 zatq=767) EGFR (BEAKER) (test 72 mL/min/1.73 sq m ESTIMATED GFR IS NOT bihy=1687) ACCURATE CREATININE CLEARANCE IN PREDICTING GLOMERULAR FILTRATION RATE. ESTIMATED GFR IS NOT APPLICABLE FOR DIALYSIS PATIENTS. [id number] 12:39:00 Test Item Value Reference Range Comments ACTIVATED CLOTTING TIME 136 sec TESTED AT [address] ([facility]) (test qstr=938) [place] [address] [id number] 11:51:00 Test Item Value Reference Range Comments ACTIVATED CLOTTING TIME 147 sec TESTED AT [address] ([facility]) (test lqzn=915) [place] [address] [id number] 09:21:00 Test Item Value Reference Range Comments ACTIVATED CLOTTING TIME 213 sec TESTED AT [address] ([facility]) (test lvxi=014) [place] [address] [id number] 08:58:00 Test Item Value Reference Range Comments ACTIVATED CLOTTING TIME 191 sec TESTED AT [address] ([facility]) (test mijg=885) [place] [address] CT, CTA [id number] 11:56:00Addendum BeginsREPORT STATUS:A Addendum: The images were reviewed with Dr. Hdz. There is a missing dictation, specifically, despite the aortic bypass surgery the standing rock left common iliac artery is still patent [...] MDReport Verified Date/Time: 11/27/2017 11:56:33 Reading Location: [place] [id number] Cardiology MRIAddendum EndsAddendum BeginsREPORT STATUS:A ADDENDUM: Study reviewed by radiology. Agree with the nonvascular findings as described below. See guidelines below regarding 5 mm pulmonary nodule. [employer] SOC[employer]ET[employer] GUIDELINES (2017): Recommendations apply to newly detected indeterminate nodules found incidentally inpatients 35 years of age or older. Risk factors include smoking history; history of lung cancer in first degree relative; exposure to radon, asbestos, or uranium. Low-risk patient: Nodule size:<6 mm:No follow-up needed.6-8 mm: CT at 6-12 months, then consider CT at 18-24 months. >8 mm: Consider CT at 3 months, PET-CT, or biopsy. High-risk patient:Nodule size:<6 mm: Optional CT at 12 months.6-8 mm : CT at 6-12 months, then CT at 18-24 months. >8 mm: Consider CT at 3 months , PET-CT, or biopsy. Signed: Adryan Barrowort Verified Date/Time: 18:03:42 Reading Location: [place] [id number] Angio Body Reading RoomAddendum EndsFINAL REPORT CT angiography of thethoracoabdominal aorta and pelvic arteries, 26 November 2017 [...] to the contrast sheet scanned in the [employer] system for the amount and route of contrast given. This exam was performed according to our departmental dose-optimisation programme, which includes automated exposure control, adjustment of the mA and/or kV according to patient size and/or use of iterative reconstruction technique. Dose modulation, iterative reconstruction, and/or weight based adjustment of the mA/kV wasutilized to reduce the radiation dose to as low as reasonably achievable. FINDINGS: VASCULAR: The central pulmonary artery is normal in calibre. There is no evidence of central pulmonary artery embolism. The cardiac chambers demonstrate normal atrioventricular and ventriculoarterial concordance, andsystemic and pulmonary venous return. The left ventricle [...] aorta. The transverse arch and descending thoracic aortahas calcific and noncalcific atherosclerosis identified. The descending thoracic aorta is tortuous. At the level of the distal descending thoracic aorta , by multiplanar reformation, the maximum diameter is [...] stenosis is identified. No distal left anastomotic stenosisidentified. The left external iliac artery and the left common femoral arteries moderate diffuse calcific atherosclerosis identified, extending into the left SFA. There is moderate diffuse calcific and noncalcific atherosclerosis identified in the right external iliac artery and thereafter, the rightcommon femoral artery is occluded and the visualized right SFA is also not enhanced by contrast indicating occlusion. Patient could be post bypass surgery in the right lower extremity, incompletely assessed. See measurements below for details. The coeliac axis, SMA, are patent. Single left and rightrenal arteries are seen. The right renal artery with eccentric calcific atherosclerosis identified with no stenosis seen. Calcification is seen in the takeoff of the left renal artery with vvpz-ld-oewfavam stenosis identified. Arch vessel branching pattern is normal and the visualised arch vessels areseen to be widely patent proximally. The left vertebral artery arises early from the transverse arch, anterior to the takeoff of the left subclavian artery, common variant. The right vertebral artery slightly larger in size than the left vertebral artery. The left subclavian artery, at image 32, measures 8 mm in diameter and the right subclavian artery, image 31, measures 8 mm in diameter. Dimensionsthat may be helpful for TAVR as follows: Mild calcification is seen along the aortic root and scattered along the ascending thoracic aorta. The major and minor aortic annulus diameter measures 26.8 and21.5 mm, respectively. The aortic annulus perimeter measured 78 mm and the cross-sectional area measures 472 mm2. The aortic annulus diameter at the traditional LVOT and coronal LVOT measures 20.4 and 27.7 mm, respectively. For reference purpose, per [employer]IGGINS S3 brochure, recommendation are as follows:CT area between 273 to 345 mm2 (20 mm valve); 338 to 430 mm2 (23 mm valve); 430 to 546 mm2 (26 mm valve ); 540 to 683 mm2 (29 mm valve). For reference purpose, per [employer] brochure, recommendation are as follows: CT perimeter between 56.5-62.8 mm (23 mm valve); 62.8-72.3 mm (26 mm valve); 72.3-81.7 mm (29 mm valve); and 81.7- 94.2. mm (34 mm valve). Agatston Score is 4525. By planimetry, aortic valve area is 88 sq mm. The sinus of Valsalva height to the takeoff of the coronary artery ostium, RCC (diastole): 14.0 mmThe sinus of Valsalva height and the takeoff of the coronary artery ostium,LCC (diastole): 14.8 mm The sinus of Valsalva diameter, RCC (diastole): 32.0 mmThe sinus of Valsalvadiameter, LCC ( diastole): 32.6 mmThe sinus of Valsalva diameter, NCC [...] 8.2 mm, respectively with mild tortuosity and mqzh-kd-pqczzvie calcific atherosclerosis present. Right iliac limb is [...] acute renal pathology is seen and no hydronephrosisor perirenal fluid collection is identified. Bowel is not well assessed by CT angiography as entericcontrast not given. No obvious bowel dilation is identified. Bilateral fat-containing inguinal hernia is noted , left greater than right. A degree of [...] dictated, however, the ordering physician is the MACHINE OPERATIONS SUPERVISOR MANAGER PHILOSOPHY of the [facility] and therefore no recommendation would be necessary. Patient is post aorto left external iliac and right common iliac bypass graft. The graft itself is patent. Moderatediffuse calcification is seen in the left external iliac and left common femoral artery. Significantdisease is seen in the right external iliac artery with moderate calcific and noncalcific atherosclerosis and minimum diameter of 3 x 3 mm. The right common femoral artery and the right SFA is occluded. The left femoral post would be needed for TAVR purposes. Dimensions that may be helpful for TAVR asdescribed above. 2. No acute pulmonary pathology. No evidence of central pulmonary artery embolism.Evidence of prior granulomatous disease. A 5 mm nodule identified in the right lower lobe that could be followed in 6-12 months time to document stability. 3. Other findings as described above. 4. An addendum will be dictated by the Founder Radiologist regarding the nonvascular findings. Signed: Juwan Echols MDReport Verified Date/Time: 11/26/2017 16:25:25 Reading Location: [place] [address] Cardiology MRI Electronically signed by: JUWAN ECHOLS M.D. on 2017 11:56 AMCT, CTA, [id number] 11:56:00Addendum BeginsREPORT STATUS:A Addendum: The images were reviewed with Dr. Hdz. There is a missing dictation, specifically, despite the aortic bypass surgery the standing rock left common iliac artery is still patent [...] MDReport Verified Date/Time: 11/27/2017 11:56:33 Reading Location: [place] [address] Cardiology MRIAddendum EndsAddendum BeginsREPORT STATUS:A ADDENDUM: Study reviewed by radiology. Agree with the nonvascular findings as described below. See guidelines below regarding 5 mm pulmonary nodule. [employer] SOCIET[employer] GUIDELINES (2017): Recommendations apply to newly detected indeterminate nodules found incidentally inpatients 35 years of age or older. Risk factors include smoking history; history of lung cancer in first degree relative; exposure to radon, asbestos, or uranium. Low-risk patient: Nodule size:<6 mm:No follow-up needed.6-8 mm: CT at 6-12 months, then consider CT at 18-24 months. >8 mm: Consider CT at 3 months, PET-CT, or biopsy. High-risk patient:Nodule size:<6 mm: Optional CT at 12 months.6-8 mm : CT at 6-12 months, then CT at 18-24 months. >8 mm: Consider CT at 3 months , PET-CT, or biopsy. Signed: Adryan Barrow MDReport Verified Date/Time: 18:03:42 Reading Location: [place] [address] Angio Body Reading RoomAddendum EndsFINAL REPORT CT angiography of thethoracoabdominal aorta and pelvic arteries, 26 November 2017 [...] and/or weight based adjustment of the mA/kV wasutilized to reduce the radiation dose to as low as reasonably achievable. FINDINGS: VASCULAR: The central pulmonary artery is normal in calibre. There is no evidence of central pulmonary artery embolism. The cardiac chambers demonstrate normal atrioventricular and ventriculoarterial concordance, andsystemic and pulmonary venous return. The left ventricle [...] aorta. The transverse arch and descending thoracic aortahas calcific and noncalcific atherosclerosis identified. The descending thoracic aorta is tortuous. At the level of the distal descending thoracic aorta , by multiplanar reformation, the maximum diameter is [...] stenosis is identified. No distal left anastomotic stenosisidentified. The left external iliac artery and the left common femoral arteries moderate diffuse calcific atherosclerosis identified, extending into the left SFA. There is moderate diffuse calcific and noncalcific atherosclerosis identified in the right external iliac artery and thereafter, the rightcommon femoral artery is occluded and the visualized right SFA is also not enhanced by contrast indicating occlusion. Patient could be post bypass surgery in the right lower extremity, incompletely assessed. See measurements below for details. The coeliac axis, SMA, are patent. Single left and rightrenal arteries are seen. The right renal artery with eccentric calcific atherosclerosis identified with no stenosis seen. Calcification is seen in the takeoff of the left renal artery with ahnu-uz-djehenll stenosis identified. Arch vessel branching pattern is normal and the visualised arch vessels areseen to be widely patent proximally. The left vertebral artery arises early from the transverse arch, anterior to the takeoff of the left subclavian artery, common variant. The right vertebral artery slightly larger in size than the left vertebral artery. The left subclavian artery, at image 32, measures 8 mm in diameter and the right subclavian artery, image 31, measures 8 mm in diameter. Dimensionsthat may be helpful for TAVR as follows: Mild calcification is seen along the aortic root and scattered along the ascending thoracic aorta. The major and minor aortic annulus diameter measures 26.8 and21.5 mm, respectively. The aortic annulus perimeter measured 78 mm and the cross-sectional area measures 472 mm2. The aortic annulus diameter at the traditional LVOT and coronal LVOT measures 20.4 and 27.7 mm, respectively. For reference purpose, per [employer] S3 brochure, recommendation are as follows:CT area between 273 to 345 mm2 (20 mm valve); 338 to 430 mm2 (23 mm valve); 430 to 546 mm2 (26 mm valve ); 540 to 683 mm2 (29 mm valve). For reference purpose, per [employer] brochure, recommendation are as follows: CT perimeter between 56.5-62.8 mm (23 mm valve); 62.8-72.3 mm (26 mm valve); 72.3-81.7 mm (29 mm valve); and 81.7- 94.2. mm (34 mm valve). Agatston Score is 4525. By planimetry, aortic valve area is 88 sq mm. The sinus of Valsalva height to the takeoff of the coronary artery ostium, RCC (diastole): 14.0 mmThe sinus of Valsalva height and the takeoff of the coronary artery ostium,LCC (diastole): 14.8 mm The sinus of Valsalva diameter, RCC (diastole): 32.0 mmThe sinus of Valsalvadiameter, LCC ( diastole): 32.6 mmThe sinus of Valsalva diameter, NCC [...] 8.2 mm, respectively with mild tortuosity and ustm-li-bxndrtqy calcific atherosclerosis present. Right iliac limb is [...] acute renal pathology is seen and no hydronephrosisor perirenal fluid collection is identified. Bowel is not well assessed by CT angiography as entericcontrast not given. No obvious bowel dilation is identified. Bilateral fat-containing inguinal hernia is noted , left greater than right. A degree of [...] dictated, however, the ordering physician is the MACHINE OPERATIONS SUPERVISOR MANAGER PHILOSOPHY of the [facility] and therefore no recommendation would be necessary. Patient is post aorto left external iliac and right common iliac bypass graft. The graft itself is patent. Moderatediffuse calcification is seen in the left external iliac and left common femoral artery. Significantdisease is seen in the right external iliac artery with moderate calcific and noncalcific atherosclerosis and minimum diameter of 3 x 3 mm. The right common femoral artery and the right SFA is occluded. The left femoral post would be needed for TAVR purposes. Dimensions that may be helpful for TAVR asdescribed above. 2. No acute pulmonary pathology. No evidence of central pulmonary artery embolism.Evidence of prior granulomatous disease. A 5 mm nodule identified in the right lower lobe that could be followed in 6-12 months time to document stability. 3. Other findings as described above. 4. An addendum will be dictated by the Founder Radiologist regarding the nonvascular findings. Signed: Juwan Echols MDReport Verified Date/Time: 11/26/2017 16:25:25 Reading Location: [place] [address] Cardiology MRI Electronically signed by: JUWAN ECHOLS M.D. on 2017 11:56 AMB-TYPE NATRIURETIC FACTOR (BNP)2017-11-26 18:03:00 Test Item Value Reference Range Comments B-TYPE NATRIURETIC PEPTIDE (BEAKER) (test 142 pg/mL 0-100 fgvj=841) COMPREHENSIVE METABOLIC [id number] 17:56:00 Test Item Value Reference Range Comments TOTAL PROTEIN (BEAKER) 6.8 gm/dL 6.0-8.3 (test skhp=503) ALBUMIN (BEAKER) (test 3.9 g/dL 3.5-5.0 vfzz=6232) ALKALINE PHOSPHATASE 133 U/L 40-150 (BEAKER) (test gcoq=759) BILIRUBIN TOTAL (BEAKER) 0.4 mg/dL 0.2-1.2 (test kkrd=443) SODIUM (BEAKER) (test 135 meq/L 136-145 krim=953) POTASSIUM (BEAKER) (test 4.3 meq/L 3.5-5.1 jegz=252) CHLORIDE (BEAKER) (test 99 meq/L 98-107 ilnh=354) CO2 (BEAKER) (test 26 meq/L 22-29 jmal=697) BLOOD UREA NITROGEN 6 mg/dL 7-21 (BEAKER) (test tvzt=657) CREATININE (BEAKER) (test 1.14 mg/dL 0.57-1.25 ezie=817) GLUCOSE RANDOM (BEAKER) 104 mg/dL 70-105 (test vjnl=591) CALCIUM (BEAKER) (test 8.9 mg/dL 8.4-10.2 brra=516) AST (SGOT) (BEAKER) (test 12 U/L 5-34 pckr=187) ALT (SGPT) (BEAKER) (test 7 U/L 6-55 gpqd=249) EGFR (BEAKER) (test 63 mL/min/1.73 sq m ESTIMATED GFR IS NOT dgfz=8989) ACCURATE CREATININE CLEARANCE IN PREDICTING GLOMERULAR FILTRATION RATE. ESTIMATED GFR IS NOT APPLICABLE FOR DIALYSIS PATIENTS. PROTHROMBIN [id number] 17:33:00 Test Item Value Reference Range Comments PROTIME (BEAKER) (test qhpj=227) 16.5 seconds 11.7-14.7 INR (BEAKER) (test bemk=098) 1.3 <=5.9 RECOMMENDED COUMADIN/WARFARIN INR THERAPY RANGESSTANDARD DOSE: 2.0 - 3.0 Includes: PROPHYLAXIS forvenous thrombosis, systemic embolization; TREATMENT for venous thrombosis and/or pulmonary embolus.HIGH RISK: Target INR is 2.5-3.5 for patients with mechanical heart valves.CBC W/PLT COUNT & AUTO [id number] 17:24:00 Test Item Value Reference Range Comments WHITE BLOOD CELL COUNT (BEAKER) (test lybg=536) 7.7 K/ L 3.5-10.5 RED BLOOD CELL COUNT (BEAKER) (test whys=103) 3.66 M/ L 4.63-6.08 HEMOGLOBIN (BEAKER) (test szod=305) 9.1 GM/DL 13.7-17.5 HEMATOCRIT (BEAKER) (test gael=287) 31.7 % 40.1-51.0 MEAN CORPUSCULAR VOLUME (BEAKER) (test kuwv=324) 86.6 fL 79.0-92.2 MEAN CORPUSCULAR HEMOGLOBIN (BEAKER) (test 24.9 pg 25.7-32.2 yhbo=401) MEAN CORPUSCULAR HEMOGLOBIN CONC (BEAKER) (test 28.7 GM/DL 32.3-36.5 ygxg=686) RED CELL DISTRIBUTION WIDTH (BEAKER) (test 19.5 % 11.6-14.4 wumg=722) PLATELET COUNT (BEAKER) (test uiau=146) 243 K/CU MM 150-450 MEAN PLATELET VOLUME (BEAKER) (test fefg=727) 10.0 fL 9.4-12.4 NUCLEATED RED BLOOD CELLS (BEAKER) (test 0 /100 WBC 0-0 ezld=590) NEUTROPHILS RELATIVE PERCENT (BEAKER) (test 73 % awqo=762) LYMPHOCYTES RELATIVE PERCENT (BEAKER) (test 13 % vynd=107) MONOCYTES RELATIVE PERCENT (BEAKER) (test 9 % luip=790) EOSINOPHILS RELATIVE PERCENT (BEAKER) (test 4 % ybrf=267) BASOPHILS RELATIVE PERCENT (BEAKER) (test 1 % fmhx=439) NEUTROPHILS ABSOLUTE COUNT (BEAKER) (test 5.64 K/ L 1.78-5.38 qilu=783) LYMPHOCYTES ABSOLUTE COUNT (BEAKER) (test 0.98 K/ L 1.32-3.57 weyp=879) MONOCYTES ABSOLUTE COUNT (BEAKER) (test 0.69 K/ L 0.30-0.82 plyy=497) EOSINOPHILS ABSOLUTE COUNT (BEAKER) (test 0.30 K/ L 0.04-0.54 sxic=308) BASOPHILS ABSOLUTE COUNT (BEAKER) (test 0.05 K/ L 0.01-0.08 icmv=754) IMMATURE GRANULOCYTES-RELATIVE PERCENT ([facility]) 0 % 0-1 (test nzoa=0703) [id number] 12:34:00 Test Item Value Reference Range Comments POC-CREATININE ([facility]) 1.1 mg/dL 0.6-1.[address] [facility] [address] [facility] (test ngov=1479) [facility] [address] POC-EGFR ([facility]) (test 65 mL/min/1.73M2 eukh=2996)
--- OUTSIDE RECORDS SUMMARY | 2017-12-30 19:07 | XMS REPORT ---
:1945 Author Organization [employer] Care Team Providers Name Role Phone Jono Home Provider Role Unavailable Allergies No Known Allergies [...]
--- OUTSIDE RECORDS SUMMARY | 2017-12-30 19:07 | XMS REPORT ---
:1945 Author Organization eClinicalWorks Care Team Providers Name Role Phone Hmoe De La Cruz Provider Role Unavailable Allergies No Known Allergies Problems Problem Type Condition Code Onset Dates Condition Status Assessment Need for home health care Z74.2 Active Assessment Health intermediate, active care Z78.9 Active coordination Assessment Gastrointestinal [...] Status Dosage System Date Date ProAir HFA [facility] 88732151528 108 (90 Base) Active 2 puffs as MCG/ACT needed Inhalation every [address] [facility] 20878535481 20 MG Orally Active 1 capsule Once a day Lipitor [facility] 42270709282 10 MG Orally Active 1 tablet Once a day Vitamin D3 [facility] 54777332094 400 UNIT Orally Active 2 tablets Once a day Aspir-[address] [facility] 57788878264 81 MG Orally Active 1 tablet Once a day Topamax [facility] 57413845442 25 MG Orally Active 1 tablet Once a day Breo Ellipta [facility] 04403450679 200-25 MCG/INH Active 1 puff Inhalation Once a day Lisinopril [facility] 67753962440 40 MG Orally Active 1 tablet Once a day Warfarin Sodium [facility] 65078742815 7.5 MG Orally Active 1 tablet Once a day Clonidine HCl [facility] 71982707168 0.1 MG Orally Active 1 tablet Twice a day at bedtime Amitriptyline HCl [facility] 42868563404 50 MG Orally Active 1 tablet Once a day Zanaflex [facility] 78393573094 4 MG Orally Active 1 tablet Three times a as needed day Primidone [facility] 72842302670 250 MG Orally Active 1 tablet Three times a day Norvasc [facility] 42695868968 5 MG Orally Active 1 tablet Once a day Results No Known Results Summary Purpose eClinicalWorks Submission
--- OUTSIDE RECORDS SUMMARY | 2017-12-30 19:07 | XMS REPORT ---
[...] Start Date End Date Status Dosage Lisinopril [facility] 94549525112 40 MG Orally Once Active 1 tablet a day Results No Known Results Summary Purpose eClinicalWorks Submission
--- OUTSIDE RECORDS SUMMARY | 2017-12-30 19:07 | XMS REPORT ---
:1945 Author Organization eClinicalWorks Care Team Providers Name Role Phone Home De La Cruz Provider Role Unavailable Allergies No Known Allergies Problems Problem Type Condition Code Onset Dates Condition Status Problem Thoracic aortic aneurysm without I71.2 Active rupture Assessment Insomnia G47.00 Active Problem Hypercoagulable state D68.59 Active Problem [...] Active Problem Hyperlipidemia, mixed E78.2 Active Medications Medication Code Code Instructions Start End Status Dosage System Date Date Amitriptyline HCl [facility] 03614456693 50 MG Orally Active 1 tablet Once a day Results No Known Results Summary Purpose eClinicalWorks Submission
--- OUTSIDE RECORDS SUMMARY | 2017-12-30 19:07 | XMS REPORT ---
:1945 Author Organization eClinicalWorks Care Team Providers Name Role Phone Home De La Cruz Provider Role Unavailable Allergies No Known Allergies Problems Problem Type Condition Code Onset Dates Condition Status Problem Thoracic aortic aneurysm without I71.2 Active rupture Assessment Benign essential HTN I10 Active Problem Hypercoagulable state D68.59 Active Problem [...] Hyperlipidemia, mixed E78.2 Active Medications Medication Code System Code Instructions Start Date End Date Status Dosage Lisinopril [facility] 29767479108 40 MG Orally Once Active 1 tablet a day Results No Known Results Summary Purpose eClinicalWorks Submission
--- OUTSIDE RECORDS SUMMARY | 2017-12-30 19:07 | XMS REPORT ---
:1945 Author Organization eClinicalWorks Care Team Providers Name Role Phone Home De La Cruz Provider Role Unavailable Allergies No Known Allergies Problems Problem Type Condition Code Onset Dates Condition Status Problem Thoracic aortic aneurysm without I71.2 Active rupture Assessment Hyperlipidemia, mixed E78.2 Active Problem Hypercoagulable state D68.59 Active Problem [...] Instructions Start Date End Date Status Dosage Lipitor [facility] 34783440830 10 MG Orally Once Active 1 tablet a day Results No Known Results Summary Purpose eClinicalWorks Submission
[2017-12-30 21:41] LABS: Absolute Lymphocytes (CBC) 0.7 K/uL (0.7-4.9); Absolute Monocytes 0.6 K/uL (0.1-1.3); Absolute Neutrophil 4.8 K/uL (1.8-8.0); Basophils % 0.8 % (0-1.3); Eosinophils % 5.1 % (0-4.4); Lymphocytes % 10.4 % (15.3-44.8); MCH 24.7 pg (27.0-35.0); MCV 75.1 fL (80-100); MPV 7.8 fL (7.6-11.3); Monocytes % 9.5 % (3.3-12.3); RBC Red Blood Cell Count 3.86 M/uL (4.33-5.43)
[2017-12-30 21:55] LABS: Potassium 2.3 mEq/L (3.6-5.0)
[2017-12-30] MEDS ORDERED: POTASSIUM CL SA 10 MEQ TAB PO ONE (22:09)
--- NOTE | 2017-12-30 22:16 | EDPHYS ---
Physician Documentation [facility] Name: Pineda Mckeon Age: 72 yrs Sex: Male : 1945 Arrival Date: 12/30/2017 Time: 19:08 Bed 15 Private MD: Home De La Cruz ED Physician Tayo Pacheco HPI: 12/30 22:15 This 72 yrs old Male presents to ER via Wheelchair with complaints of ps1 Abnormal Lab Results. 22:15 pt sent in for critical potassium. 2.4, has had 2 weeks of non-bloody diarrhea. Went to ps1 see PCP for same and was sent in for potassium correction when results came back. Has since had intermittent bouts of diarrhea. . Historical: - Allergies: 19:47 No Known Allergies; bs1 - Home Meds: 19:47 amitriptyline 100 mg Oral tab 1 tab nightly [Active]; aspirin 81 mg Oral TbEC 1 tab bs1 once daily [Active]; Breo Ellipta 200-25 mcg/dose inhalation dsdv 1 puff once daily [Active]; clonidine HCl 0.1 mg Oral tab 1 tab 4 times per day [Active]; fentanyl 100 mcg/hr Topical pt72 1 patch every 72 hours [Active]; hydrocodone-acetaminophen 10-325 mg Oral tab 1 tab every 6 hours [Active]; Lipitor 10 mg Oral tab 1 tab once daily [Active]; lisinopril 40 mg Oral tab 1 tab once daily [Active]; tizanidine 4 mg Oral tab 2 2-4 tabs daily [Active]; topiramate 25 mg Oral CSpX 1 cap once daily [Active]; Vitamin B-12 1,000 mcg Oral tab daily [Active]; Vitamin D Oral 5000 mcg daily [Active]; warfarin 9 mg Oral tab 1 tab once daily [Active]; Plavix 75 mg Oral tab [Active]; Lasix Oral [Active]; - PMHx: 19:47 AAA; Bypass Bilateral Legs; clotting disorder; COPD; Hypertension; CVA; Right Arm; TIA; bs1 blood clot in right groin; Degenerative disc disease; - PSHx: 19:47 valve replacement; replaced leaking aneurysm; 3 bypass in leg; Cholecystectomy; bs1 - Immunization history:: Adult Immunizations up to date. - Social history:: Smoking status: Patient/guardian denies using tobacco. - Ebola Screening: : Patient negative for fever greater than or equal to 101.5 degrees Fahrenheit, and additional compatible Ebola Virus Disease symptoms Patient denies exposure to infectious person. ROS: 22:15 Constitutional: Negative for fever, chills, and weight loss, Eyes: Negative for injury, ps1 pain, redness, and discharge, Cardiovascular: Negative for chest pain, palpitations, and edema, Respiratory: Negative for shortness of breath, cough, wheezing, and pleuritic chest pain. 22:15 MS/Extremity: Negative for injury and deformity, Skin: Negative for injury, rash, and discoloration, Neuro: Negative for headache, weakness, numbness, tingling, and seizure. 22:15 Abdomen/GI: Positive for nausea, vomiting, and diarrhea. Exam: 22:15 Constitutional: This is a well developed, well nourished patient who is awake, alert, ps1 and in no acute distress. Head/Face: Normocephalic, atraumatic. Eyes: Pupils equal round and reactive to light, extra-ocular motions intact. Lids and lashes normal. Conjunctiva and sclera are non-icteric and not injected. Chest/axilla: Normal chest wall appearance and motion. Nontender with no deformity. No lesions are appreciated. Cardiovascular: Regular rate and rhythm. No gallops, murmurs, or rubs. Normal PMI, no JVD. No pulse deficits. Respiratory: Lungs have equal breath sounds bilaterally, clear to auscultation and percussion. No rales, rhonchi or wheezes noted. No increased work of breathing, no retractions or nasal flaring. Abdomen/GI: Soft, non-tender, with normal bowel sounds. No distension or tympany. No guarding or rebound. No evidence of tenderness throughout. Skin: Warm, dry with normal turgor. Normal color with no rashes, no lesions, and no evidence of cellulitis. MS/ Extremity: Pulses equal, no cyanosis. Neurovascular intact. Full, normal range of motion. Neuro: Awake and alert, GCS 15, oriented to person, place, time, and situation. Cranial nerves II-XII grossly intact. Sensory grossly intact. Psych: Awake, alert, with orientation to person, place and time. Behavior, mood, and affect are within normal limits. Vital Signs: 19:41 BP 139 / 94 LA Supine (auto/reg); Pulse 78 LA; Resp 18 S; Temp 99.4(O); Pulse Ox 96% on bs1 R/A; Weight 76.66 kg (R); Height 5 ft. 7 in. (170.18 cm); Pain 0/10; 20:45 BP 142 / 74; Pulse 72; Resp 16; Pulse Ox 98% on R/A; bs1 21:45 BP 138 / 80; Pulse 73; Resp 17; Pulse Ox 98% on R/A; bs1 22:45 BP 131 / 94; Pulse 91; Resp 16 S; Pulse Ox 98% ; bs1 12/31 00:00 BP 145 / 77 LA Supine (auto/reg); Pulse 72 LA; Resp 15 S; Temp 99.4(O); Pulse Ox 96% on bs1 R/A; Pain 0/10; 12/30 19:41 Body Mass Index 26.47 (76.66 kg, 170.18 cm) bs1 MDM: 12/30 21:30 Patient medically screened. ps1 22:15 Data reviewed: vital signs, nurses notes, lab test result(s), EKG. ED course: Gave ps1 60MEq of K oral. KCL per IV to be given. Placed in observation. Stool studies pending. . 12/30 21:12 Order name: CBC with Diff; Complete Time: 21:59 [facility] 12/30 21:12 Order name: BMP; Complete Time: 21:59 [facility] 12/30 21:38 Order name: Magnesium; Complete Time: 21:59 ps1 12/30 21:39 Order name: Stool Culture [facility] 12/30 21:12 Order name: EKG; Complete Time: 21:12 [facility] 12/30 21:12 Order name: EKG - Nurse/Tech; Complete Time: 21:27 bs Administered Medications: 22:11 Drug: Potassium Chloride 60 mEq Route: PO; bs1 22:27 Follow up: Response: No adverse reaction bs1 22:57 Drug: Potassium Chloride 20 mEq Route: IV; Rate: calculated rate; Site: right bs1 antecubital; 12/31 00:19 Follow up: IV Status: Infusion continued upon admission bs1 Disposition: 12/30/17 22:15 Hospitalization ordered by Albert Conley for Observation. Preliminary diagnosis is Hypokalemia. - Bed requested for Telemetry/MedSurg (observation). - Status is Observation. bs1 - Condition is Fair. - Problem is new. - Symptoms have improved. UTI on Admission? No Signatures: Dispatcher [employer] EDWA Arina Hutton RN RN mw Tayo Pacheco MD MD ps1 Pati Heaton, RN RN bs1 Corrections: (The following items were deleted from the chart) 12/30 22:12 21:39 Stool Culture+BA.LAB.BRZ ordered. EDWA EDWA 22:24 22:15 Hospitalization Ordered by Albert Conley MD for Observation. Preliminary mw diagnosis is Hypokalemia. Bed requested for Telemetry/MedSurg (observation). Status is Observation. Condition is Fair. Problem is new. Symptoms have improved. UTI on Admission? No. ps1 12/31 00:19 12/30 22:24 12/30/2017 22:15 Hospitalization Ordered by Albert Conley MD for bs1 Observation. Preliminary diagnosis is Hypokalemia. Bed requested for Telemetry/MedSurg (observation). Status is Observation. Condition is Fair. Problem is new. Symptoms have improved. UTI on Admission? No. mw
--- NOTE | 2017-12-30 22:16 | ER ---
Nurse's Notes [facility] Name: Pineda Mckeon Age: 72 yrs Sex: Male : 1945 Arrival Date: 12/30/2017 Time: 19:08 Bed 15 Private MD: Home De La Cruz Diagnosis: Hypokalemia Presentation: 12/30 19:39 Presenting complaint: Patient states: "I had a late Dr Appointment today, they did some bs1 blood work and they called me back and told me I needed to go to the ER because my potassium was at a critical level, I also have been having diarrhea for 2 weeks with foul odor.". Transition of care: patient was not received from another setting of care. Onset of symptoms was December 30, 2017. Risk Assessment: Do you want to hurt yourself or someone else? Patient reports no desire to harm self or others. Initial Sepsis Screen: Does the patient meet any 2 criteria? No. Patient's initial sepsis screen is negative. Does the patient have a suspected source of infection? No. Patient's initial sepsis screen is negative. Care prior to arrival: None. 19:39 Method Of Arrival: Wheelchair bs1 19:39 Acuity: NORY 3 bs1 Historical: - Allergies: 19:47 No Known Allergies; bs1 - Home Meds: 19:47 amitriptyline 100 mg Oral tab 1 tab nightly [Active]; aspirin 81 mg Oral TbEC 1 tab bs1 once daily [Active]; Breo Ellipta 200-25 mcg/dose inhalation dsdv 1 puff once daily [Active]; clonidine HCl 0.1 mg Oral tab 1 tab 4 times per day [Active]; fentanyl 100 mcg/hr Topical pt72 1 patch every 72 hours [Active]; hydrocodone-acetaminophen 10-325 mg Oral tab 1 tab every 6 hours [Active]; Lipitor 10 mg Oral tab 1 tab once daily [Active]; lisinopril 40 mg Oral tab 1 tab once daily [Active]; tizanidine 4 mg Oral tab 2 2-4 tabs daily [Active]; topiramate 25 mg Oral CSpX 1 cap once daily [Active]; Vitamin B-12 1,000 mcg Oral tab daily [Active]; Vitamin D Oral 5000 mcg daily [Active]; warfarin 9 mg Oral tab 1 tab once daily [Active]; Plavix 75 mg Oral tab [Active]; Lasix Oral [Active]; - PMHx: 19:47 AAA; Bypass Bilateral Legs; clotting disorder; COPD; Hypertension; CVA; Right Arm; TIA; bs1 blood clot in right groin; Degenerative disc disease; - PSHx: 19:47 valve replacement; replaced leaking aneurysm; 3 bypass in leg; Cholecystectomy; bs1 - Immunization history:: Adult Immunizations up to date. - Social history:: Smoking status: Patient/guardian denies using tobacco. - Ebola Screening: : Patient negative for fever greater than or equal to 101.5 degrees Fahrenheit, and additional compatible Ebola Virus Disease symptoms Patient denies exposure to infectious person. Screenin:51 Abuse screen: Denies threats or abuse. Denies injuries from another. Nutritional bs1 screening: No deficits noted. Tuberculosis screening: No symptoms or risk factors identified. Fall Risk None identified. Assessment: 19:20 General: Appears in no apparent distress. uncomfortable, Behavior is calm, cooperative, bs1 appropriate for age. Pain: Denies pain. Neuro: Level of Consciousness is awake, alert, obeys commands, Oriented to person, place, time, situation, Appropriate for age Final Expense Agent are equal bilaterally. Cardiovascular: Denies chest pain, shortness of breath, Heart tones S1 S2 present Capillary refill < 3 seconds Patient's skin is warm and dry. Respiratory: Airway is patent Trachea midline Respiratory effort is even, unlabored, Respiratory pattern is regular, symmetrical, Breath sounds are clear bilaterally. GI: Abdomen is round Bowel sounds present X 4 quads. Reports diarrhea, Patient currently denies abdominal pain, nausea. : No deficits noted. No signs and/or symptoms were reported regarding the genitourinary system. EENT: No deficits noted. No signs and/or symptoms were reported regarding the EENT system. Derm: Skin is intact, Skin is pink, warm \\T\\ dry. Musculoskeletal: Circulation, motion, and sensation intact. Capillary refill < 3 seconds, Range of motion: intact in all extremities. 20:45 Reassessment: No changes from previously documented assessment. Patient and/or family bs1 updated on plan of care and expected duration. Pain level reassessed. Patient is alert, oriented x 3, equal unlabored respirations, skin warm/dry/pink. 22:45 Reassessment: Patient appears in no apparent distress at this time. Patient and/or bs1 family updated on plan of care and expected duration. Pain level reassessed. Patient is alert, oriented x 3, equal unlabored respirations, skin warm/dry/pink. Verbal order from MD to give 20 MEQ potassium IV x1. 23:45 Reassessment: Patient appears in no apparent distress at this time. Patient and/or bs1 family updated on plan of care and expected duration. Pain level reassessed. Patient is alert, oriented x 3, equal unlabored respirations, skin warm/dry/pink. Pending admission to 2nd floor. Patient denies chest pain. No further needs at this time. Continue to monitor heart rhythm. Vital Signs: 19:41 BP 139 / 94 LA Supine (auto/reg); Pulse 78 LA; Resp 18 S; Temp 99.4(O); Pulse Ox 96% on bs1 R/A; Weight 76.66 kg (R); Height 5 ft. 7 in. (170.18 cm); Pain 0/10; 20:45 BP 142 / 74; Pulse 72; Resp 16; Pulse Ox 98% on R/A; bs1 21:45 BP 138 / 80; Pulse 73; Resp 17; Pulse Ox 98% on R/A; bs1 22:45 BP 131 / 94; Pulse 91; Resp 16 S; Pulse Ox 98% ; bs1 12/31 00:00 BP 145 / 77 LA Supine (auto/reg); Pulse 72 LA; Resp 15 S; Temp 99.4(O); Pulse Ox 96% on bs1 R/A; Pain 0/10; 12/30 19:41 Body Mass Index 26.47 (76.66 kg, 170.18 cm) bs1 ED Course: 12/30 19:08 Patient arrived in ED. es 19:08 Home De La Cruz DO is Private Physician. es 19:39 Pati Heaton, CHRYSTAL is Primary Nurse. bs1 19:41 Triage completed. bs1 19:51 Patient has correct armband on for positive identification. Placed in gown. Bed in low bs1 position. Call light in reach. Side rails up X 1. Pulse ox on. NIBP on. Warm blanket given. 20:10 Inserted saline lock: 22 gauge in right antecubital area, using aseptic technique. bs1 Blood collected. 21:21 Tayo Pacheco MD is Attending Physician. ps1 21:28 Patient placed in an exam room. EKG completed in triage. Results shown to MD. bs1 21:53 Notified ED physician of a critical lab result(s). potassium of 2.3. 22:14 Albert Conley MD is Hospitalizing Provider. ps1 12/31 00:16 No provider procedures requiring assistance completed. Patient admitted, IV remains in bs1 place. intact. Administered Medications: 12/30 22:11 Drug: Potassium Chloride 60 mEq Route: PO; bs1 22:27 Follow up: Response: No adverse reaction bs1 22:57 Drug: Potassium Chloride 20 mEq Route: IV; Rate: calculated rate; Site: right bs1 antecubital; 12/31 00:19 Follow up: IV Status: Infusion continued upon admission bs1 Outcome: 12/30 22:15 Decision to Hospitalize by Provider. ps1 12/31 00:16 Admitted to Med/surg accompanied by tech, via wheelchair, room 210, with chart, Report bs1 called to Bird JARRELL Condition: stable Instructed on the need for admit, Demonstrated understanding of instructions. 00:19 Patient left the ED. bs1 Signatures: Hillary Bardales Felicia, RN RN Tayo Pacheco MD MD ps1 Pati Heaton RN RN bs1 Corrections: (The following items were deleted from the chart) 12/30 23:50 19:39 Presenting complaint: Patient states: "I had a late Dr Appointment today, they bs1 did some blood work and they called me back and told me I needed to go to the ER because my potassium was at a critical level." bs1 12/31 00:18 12/30 22:45 Reassessment: Patient appears in no apparent distress at this time. Patient bs1 and/or family updated on plan of care and expected duration. Pain level reassessed. Patient is alert, oriented x 3, equal unlabored respirations, skin warm/dry/pink. bs1
[2017-12-30] MEDS ORDERED: NA CHLORIDE 0.9% 250 ML ONE (22:48)
[2017-12-30] MEDS ORDERED: KCL 20 MEQ/100 mL IVPB 20 MEQ/100 ML BAG IV ONE (22:48)
[2017-12-30] MEDS ORDERED: MORPHINE 2 MG/ML SYR IV PRN (23:25)
[2017-12-30] MEDS ORDERED: ONDANSETRON 4 MG/2 ML VIAL IV PRN (23:25)
[2017-12-30] MEDS ORDERED: ACETAMINOPHEN 500 MG TAB PO PRN (23:25)
[2017-12-30] MEDS ORDERED: POTASSIUM CL 40 MEQ in NA CHLORIDE 0.9% 500 ML IV SCH (23:45)
[2017-12-31] MEDS: NA CHLORIDE 0.9% 1,000 ML IV SCH ×2 (01:25→15:23)
[2017-12-31 02:48] VITALS: BMI 26.4
[2017-12-31] MEDS ORDERED: KCL 20 MEQ/100 mL IVPB 20 MEQ/100 ML BAG IV SCH (03:00)
[2017-12-31 05:15] LABS: Absolute Lymphocytes (CBC) 0.8 K/uL (0.7-4.9); Absolute Monocytes 0.7 K/uL (0.1-1.3); Absolute Neutrophil 4.1 K/uL (1.8-8.0); Basophils % 0.5 % (0-1.3); Eosinophils % 5.5 % (0-4.4); Hematocrit 27.1 % (39.6-49.0); Lymphocytes % 12.8 % (15.3-44.8); MCH 24.7 pg (27.0-35.0); MCV 75.8 fL (80-100); MPV 7.5 fL (7.6-11.3); Monocytes % 11.7 % (3.3-12.3); RBC Red Blood Cell Count 3.57 M/uL (4.33-5.43)
[2017-12-31 05:25] LABS: Albumin 2.6 g/dL (3.2-5.5); Potassium 3.3 mEq/L (3.6-5.0); Protein, Total 5.5 g/dL (6.0-8.3)
[2017-12-31 05:34] LABS: Bilirubin Total 0.3 mg/dL (0.3-1.2)
[2017-12-31] MEDS ORDERED: cloNIDine HCl 0.1 MG TAB PO PRN (06:40)
[2017-12-31] MEDS ORDERED: TIZANIDINE 4 MG TABLET PO PRN (06:40)
--- NOTE | 2017-12-31 06:42 | EKG ---
Test Date: 2017-12-30 Test Time: 21:24:02 Clinical Neuropsychologist: BRIAN MEASUREMENT RESULTS: Intervals: Rate: 70 FL: 164 QRSD: 106 QT: 422 QTc: 455 [place]: P: 42 FL: 164 QRS: -29 T: 20 INTERPRETIVE STATEMENTS: Normal sinus rhythm Normal ECG Compared to ECG 12/01/2017 23:01:41 No significant changes Electronically Signed On 12-31-17 06:42:05 CDT by Pavan Andrews
[2017-12-31] MEDS ORDERED: FENTANYL 100 MCG/PATCH TD SCH (07:00)
[2017-12-31] MEDS ORDERED: Morphine 2 MG/2 ML SYR IV PRN (07:08)
--- NOTE | 2017-12-31 07:08 | P.HP ---
Certification for Inpatient Patient admitted to: Observation With expected LOS: <2 Midnights Patient will require the following post-hospital care: None Practitioner: I am a practitioner with admitting privileges, knowledge of patient current condition, hospital course, and medical plan of care. Services: Services provided to patient in accordance with Admission requirements found in Title 42 Section 412.3 of the Code of Federal Regulations Patient History Date of Service: 12/30/17 Reason for admission: Persistent diarrhea; hypokalemia History of Present Illness: Patient is a 72yo who was admitted to the hospital with persistent diarrhea. Patient's diarrhea resulted in a potassium of 2.3. Patient had generalized weakness secondary to the hypokalemia. Patient has been taking antibiotics for COPD exacerbation with a questionable pneumonia. This was given a few weeks ago after he visited the emergency room. In the emergency room, patient was started on potassium supplementation. He is clinically appearing to do better. He will be admitted to the hospital for 24-48 hr. Will await stool studies and continue on oral vancomycin. Allergies No Known Allergies Allergy (Verified 10/24/17 00:11) Home Medications: Cyanocobalamin (Vitamin B-12) [B-12] 1,000 mcg PO DAILY 07/13/16 Atorvastatin Calcium 1 tab PO DAILY 08/29/17 Topiramate 1 tab PO DAILY 08/29/17 Hydrocodone 10/APAP 325 [[place] 10/325*] 1 tab PO Q6H tab 09/17/17 Lisinopril [Prinivil*] 40 mg PO DAILY tab 09/17/17 Fentanyl 1 patch TD Q3D 10/24/17 Amitriptyline HCl 1 tab PO BEDTIME 12/31/17 Clonidine HCl [Catapres] 1 tab PO QID PRN 12/31/17 Fluticasone/Vilanterol [Breo Ellipta 200-25 Mcg INH] 1 puff IH DAILY 12/31/17 Tizanidine HCl 2 - 4 tab PO DAILY PRN 12/31/17 Vit D3/Folic Acid/B2/B6/B12 [Folgard Tablet] 1 each PO DAILY 12/31/17 Warfarin Sodium [Coumadin] 9 mg PO DAILY 12/31/17 - Past Medical/Surgical History Has patient received pneumonia vaccine in the past: Yes Diabetic: No -: COPD -: HTN -: History of CVA -: History of TIA -: Recent history of subdural hematoma -: Chronic anti coagulation for arterial disease -: Chronic pain syndrome -: Peripheral vascular disease -: History of AAA repair -: Blood clot in the groin -: Degenerative disc disease -: Cholecystectomy -: CABGx3 -: AAA repair -: Hernia repair -: subdural hematoma surgery -: valve replacement Psychosocial/ Personal History: He currently lives with his daughter, has 5 children, he does not work. - Family History Mother Medical History: Heart disease, Hypertension Father Medical History: Heart disease, Other (see notes) Notes: Alzheimer's - Social History Smoking Status: Former smoker Alcohol use: No CD- Drugs: No Caffeine use: Yes Place of Residence: Home Review of Systems 10-point ROS is otherwise unremarkable Physical Examination - Vital Signs Temperature: 98.0 F Blood Pressure: 101/55 Pulse: 69 Respirations: 18 Pulse Ox (%): 94 - Physical Exam General: Alert, In no apparent distress, Oriented x3 HEENT: Atraumatic, PERRLA, Mucous membr. moist/pink, EOMI, Sclerae nonicteric Neck: Supple, 2+ carotid pulse no bruit, No LAD, Without JVD or thyroid abnormality Respiratory: Clear to auscultation bilaterally, Normal air movement Cardiovascular: Regular rate/rhythm, Normal S1 S2, No murmurs Gastrointestinal: Normal bowel sounds, Soft and benign, Non-distended, Tenderness (Mildly tender in the lower quadrants bilaterally) Musculoskeletal: No tenderness Integumentary: No rashes Neurological: Normal gait, Normal speech, Normal strength at 5/5 x4 extr, Normal tone, Sensation intact, Cranial nerves 3-12 intact, Normal affect Lymphatics: No axilla or inguinal lymphadenopathy - Studies Laboratory Data (last 24 hrs) 12/30/17 20:20: Magnesium 1.8 12/30/17 20:20: Sodium 129 L, Potassium 2.3 L*, BUN 9, Creatinine 1.42 H, Glucose 119 12/30/17 20:20: WBC 6.5 D, Hgb 9.5 L, Hct 29.0 L, Plt Count 298 Assessment & Plan - Problems (Diagnosis) (1) Diarrhea Current Visit: Yes Status: Acute (2) On antibiotic therapy Current Visit: Yes Status: Acute (3) C. difficile colitis Current Visit: Yes Status: Acute (4) Hypokalemia Current Visit: Yes Status: Acute (5) AAA (abdominal aortic aneurysm) Onset Date: 09/15/17 Current Visit: No Status: Chronic Qualifiers: Presence of rupture: without rupture Qualified Code(s): I71.4 - Abdominal aortic aneurysm, without rupture (6) CAD (coronary artery disease) of artery bypass graft Current Visit: No Status: Chronic Qualifiers: [place] vs. transplanted heart: [place] heart Associated angina: without angina Qualified Code(s): I25.810 - Atherosclerosis of coronary artery bypass graft(s) without angina pectoris (7) COPD (chronic obstructive pulmonary disease) Onset Date: 07/14/16 Current Visit: No Status: Chronic Qualifiers: COPD type: chronic bronchitis Chronic bronchitis type: unspecified Qualified Code(s): J42 - Unspecified chronic bronchitis (8) Factor V Leiden Current Visit: No Status: Chronic (9) Hypertension Onset Date: 07/14/16 Current Visit: No Status: Chronic Qualifiers: Hypertension type: essential hypertension Qualified Code(s): I10 - Essential (primary) hypertension (10) Severe aortic stenosis Current Visit: No Status: Chronic - Plan 1. Continue with IV hydration 2. Continue with oral antibiotics(vancomycin for C.diff) 3. Continue with potassium supplementation 4. Advanced diet as tolerated 5. GI consultation for outpatient colonoscopy in 6-12 weeks 6. Serial H&H, and we will monitor electrolytes closely 7. Resume anti coagulation and check INR 8. Strict blood pressure control 9. GI and DVT prophylaxis Discharge Plan: Home Plan to discharge in: Greater than 2 days - Advance Directives Does patient have a Living Will: No Does patient have a Durable POA for Healthcare: No - Code Status/Comfort Care Code Status Assessed: Yes Code Status: Full Code Critical Care: No Time Spent Managing PTS Care (In Minutes): 50
[2017-12-31] MEDS: POTASSIUM 25 MEQ EFFERV TAB PO SCH ×2 (07:25→21:04)
[2017-12-31] MEDS: HYDROCODONE/APAP 10/325 TAB PO SCH ×3 (07:27→18:34)
[2017-12-31] MEDS: LISINOPRIL 20 MG TAB PO SCH (08:47)
[2017-12-31] MEDS: CYANOCOBALAMIN 1,000 MCG TAB PO SCH (08:48)
[2017-12-31] MEDS: ATORVASTATIN 10 MG TAB PO SCH (08:48)
[2017-12-31] MEDS: TOPIRAMATE 25 MG TAB PO SCH (08:48)
[2017-12-31] MEDS: VANCOMYCIN ORAL SOLN 250 MG/5 ML OSYR PO SCH ×2 (08:48→17:00)
[2017-12-31] MEDS: HOME MED 1 EA UNK (Fluticasone/Vilanterol [Breo Ellipta 200-25 Mcg Inh] 1 PUFF) IH SCH (09:00)
[2017-12-31] MEDS ORDERED: POTASSIUM 25 MEQ EFFERV TAB PO SCH (09:00)
--- NOTE | 2017-12-31 10:08 | P.PN ---
Subjective Date of Service: 12/31/17 Primary Care Provider: Dr. De La Cruz Chief Complaint: Persistent diarrhea; hypokalemia Subjective: Other (Patient doing better. Patient still with diarrhea.) Physical Examination - Vital Signs Temperature: 98.3 F Blood Pressure: 181/82 Pulse: 66 Respirations: 20 Pulse Ox (%): 97 - Physical Exam General: Alert, In no apparent distress, Oriented x3, Cooperative HEENT: Atraumatic Neck: Supple Respiratory: Clear to auscultation bilaterally, Normal air movement Cardiovascular: Normal pulses, Regular rate/rhythm Gastrointestinal: Normal bowel sounds, Soft and benign, Non-distended, No tenderness, No masses, No rebound, No guarding Musculoskeletal: No erythema, No tenderness, No warmth Integumentary: No erythema, No warmth, No cyanosis Neurological: Normal speech, Normal strength at 5/5 x4 extr, Normal tone, Normal affect - Studies Laboratory Data (last 24 hrs) 12/30/17 20:20: Magnesium 1.8 12/30/17 20:20: Sodium 129 L, Potassium 2.3 L*, BUN 9, Creatinine 1.42 H, Glucose 119 12/30/17 20:20: WBC 6.5 D, Hgb 9.5 L, Hct 29.0 L, Plt Count 298 Medications List Reviewed: Yes Assessment & Plan - Problems (Diagnosis) (1) Hiatal hernia with GERD Current Visit: No Status: Chronic Plan: Will continue with PPI. (2) Factor V Leiden Onset Date: 12/31/17 Current Visit: No Status: Chronic Plan: Patient on chronic anti coagulation therapy-Coumadin. Will monitor INR. Will hold Coumadin if INR greater than 3.0. (3) Severe aortic stenosis Onset Date: 12/31/17 Current Visit: No Status: Chronic Plan: Patient reports that he had a valve replacement recently. He was previously on antibiotic therapy. He is on chronic anti coagulation. (4) Diarrhea Onset Date: 12/31/17 Current Visit: Yes Status: Acute Plan: Suspect C diff colitis. Patient on antibiotic therapy. Await culture results. Qualifiers: Diarrhea type: infectious Qualified Code(s): A09 - Infectious gastroenteritis and colitis, unspecified (5) C. difficile colitis Onset Date: 12/31/17 Current Visit: Yes Status: Acute Plan: Suspect C diff colitis as the patient was recently on antibiotic therapy. Patient on antibiotic therapy for C diff. Await stool culture results. Continue with IV fluids. Electrolytes currently being replaced. (6) Hypokalemia Onset Date: 12/31/17 Current Visit: Yes Status: Acute Plan: Continue with supplementation. Will monitor and adjust appropriately. (7) CAD (coronary artery disease) of artery bypass graft Onset Date: 12/31/17 Current Visit: No Status: Chronic Plan: Overall stable. Will continue with his medications. Qualifiers: [place] vs. transplanted heart: [place] heart Associated angina: without angina Qualified Code(s): I25.810 - Atherosclerosis of coronary artery bypass graft(s) without angina pectoris (8) COPD (chronic obstructive pulmonary disease) Onset Date: 07/14/16 Current Visit: No Status: Chronic Plan: Will provide medication for COPD. Qualifiers: COPD type: chronic bronchitis Chronic bronchitis type: unspecified Qualified Code(s): J42 - Unspecified chronic bronchitis (9) Hypertension Onset Date: 07/14/16 Current Visit: No Status: Chronic Plan: Will continue with his medication. Qualifiers: Hypertension type: essential hypertension Qualified Code(s): I10 - Essential (primary) hypertension (10) Chronic anticoagulation Onset Date: 07/14/16 Current Visit: No Status: Chronic Plan: Patient on chronic anti coagulation therapy. Will restart Coumadin. Will monitor INR. Will hold Coumadin if INR greater than 3.0. (11) Peripheral vascular disease Onset Date: 07/14/16 Current Visit: No Status: Chronic Plan: Will verify and restart home medication (12) Chronic renal disease Onset Date: 07/14/16 Current Visit: No Status: Chronic Plan: Improved with IV hydration. Will monitor closely. Qualifiers: Chronic kidney disease stage: stage 3 (moderate) Qualified Code(s): N18.3 - Chronic kidney disease, stage 3 (moderate) (13) Hyponatremia Onset Date: 07/14/16 Current Visit: No Status: Acute Plan: Will continue with IV fluids. Monitor closely. (14) Chronic pain disorder Onset Date: 07/14/16 Current Visit: No Status: Chronic Plan: Continue with his chronic pain medication. (15) Anemia Onset Date: 09/15/17 Current Visit: No Status: Acute Plan: Anemia stable this time. Will provide supplementation. Will monitor closely. Qualifiers: Anemia type: other cause Other causes of anemia: other cause, not classified Qualified Code(s): D64.89 - Other specified anemias Discharge Plan: Home Plan to discharge in: 24 Hours Time Spent Managing Pts Care (In Minutes): 55
[2017-12-31] MEDS ORDERED: IPRATROPIUM BROM 0.5MG/2.5ML NEB PRN (10:10)
[2017-12-31] MEDS ORDERED: ALBUTEROL 2.5 MG/3 ML NEB SOL NEB PRN (10:10)
[2017-12-31 11:37] LABS: Absolute Lymphocytes (CBC) 0.6 K/uL (0.7-4.9); Absolute Monocytes 0.6 K/uL (0.1-1.3); Absolute Neutrophil 3.5 K/uL (1.8-8.0); Basophils % 0.5 % (0-1.3); Eosinophils % 4.9 % (0-4.4); Hematocrit 26.2 % (39.6-49.0); Lymphocytes % 12.5 % (15.3-44.8); MCH 24.4 pg (27.0-35.0); MCV 75.9 fL (80-100); MPV 7.4 fL (7.6-11.3); Monocytes % 12.2 % (3.3-12.3); RBC Red Blood Cell Count 3.45 M/uL (4.33-5.43)
[2017-12-31 11:38] LABS: Protime INR 3.14
[2017-12-31 11:47] LABS: Magnesium 1.8 mg/dL (1.8-2.5); Phosphorus 3.3 mg/dL (2.5-4.3); Potassium 3.2 mEq/L (3.6-5.0)
[2017-12-31 13:03] LABS: Urine Appearance CLEAR; Urine Bilirubin NEGATIVE (NEG); Urine Blood NEGATIVE (NEG); Urine Color YELLOW; Urine Glucose NEGATIVE (NEG); Urine Protein NEGATIVE (NEG); Urine Specific Gravity <=1.005 (1.005-1.030); Urine Urobilinogen 0.2 mg/dL (0.2-1.0)
[2017-12-31 13:14] LABS: Urine Microscopic Reflex NO UMIC
[2017-12-31] MEDS: KCL 20 MEQ/100 mL IVPB 20 MEQ/100 ML BAG IV SCH ×2 (15:23→18:35)
[2017-12-31] MEDS: LACTOBACILLUS/ACIDOPHILUS TAB PO SCH ×2 (15:23→21:04)
[2017-12-31] MEDS ORDERED: WARFARIN SODIUM 3 MG TAB PO SCH (17:00)
[2017-12-31] MEDS ORDERED: AMITRIPTYLINE 50 MG TAB PO SCH (21:00)
[2018-01-01 00:35] VITALS: O2SAT 96
[2018-01-01] MEDS ORDERED: POTASSIUM 25 MEQ EFFERV TAB PO ONE (01:31)
[2018-01-01] MEDS: VANCOMYCIN ORAL SOLN 250 MG/5 ML OSYR PO SCH (02:07)
[2018-01-01] MEDS: HYDROCODONE/APAP 10/325 TAB PO SCH ×3 (02:07→13:28)
[2018-01-01] MEDS: NA CHLORIDE 0.9% 1,000 ML IV SCH (04:05)
[2018-01-01 05:05] LABS: Absolute Lymphocytes (CBC) 0.8 K/uL (0.7-4.9); Absolute Monocytes 0.6 K/uL (0.1-1.3); Absolute Neutrophil 3.5 K/uL (1.8-8.0); Basophils % 0.6 % (0-1.3); Eosinophils % 5.1 % (0-4.4); Hematocrit 25.5 % (39.6-49.0); Lymphocytes % 15.1 % (15.3-44.8); MCH 24.2 pg (27.0-35.0); MPV 7.6 fL (7.6-11.3); Monocytes % 11.5 % (3.3-12.3); RBC Red Blood Cell Count 3.36 M/uL (4.33-5.43)
[2018-01-01 05:08] LABS: Protime INR 2.13
[2018-01-01 05:22] LABS: Magnesium 1.7 mg/dL (1.8-2.5); Potassium 4.1 mEq/L (3.6-5.0)
[2018-01-01] MEDS ORDERED: MAGNESIUM SULFATE 1 gm IVPB 1 GM/100 ML BAG IV ONE (05:43)
[2018-01-01] MEDS: LACTOBACILLUS/ACIDOPHILUS TAB PO SCH ×2 (08:27→13:28)
[2018-01-01] MEDS: LISINOPRIL 20 MG TAB PO SCH (08:27)
[2018-01-01] MEDS: CYANOCOBALAMIN 1,000 MCG TAB PO SCH (08:28)
[2018-01-01] MEDS: TOPIRAMATE 25 MG TAB PO SCH (08:28)
[2018-01-01] MEDS: ATORVASTATIN 10 MG TAB PO SCH (08:28)
[2018-01-01] MEDS: POTASSIUM 25 MEQ EFFERV TAB PO SCH (08:28)
[2018-01-01] MEDS: HOME MED 1 EA UNK (Fluticasone/Vilanterol [Breo Ellipta 200-25 Mcg Inh] 1 PUFF) IH SCH (08:29)
[2018-01-01] MEDS ORDERED: CIPROFLOXACIN HCL 500 MG TAB PO SCH (09:00)
[2018-01-01] MEDS ORDERED: SOD FERRIC GLUC COMPLX/SUCROSE 125 MG in NA CHLORIDE 0.9% 100 ML IV SCH (09:00)
[2018-01-01] MEDS: metroNIDAZOLE 500 MG TABLET PO SCH ×2 (10:17→13:28)
[2018-01-01 12:10] LABS: Hematocrit 29.9 % (39.6-49.0)
--- NOTE | 2018-01-01 13:51 | P.DS ---
Admission Date: 12/30/17 Discharge Date: 01/01/18 Primary Care Provider: Dr. De La Cruz Disposition: ROUTINE DISCHARGE Discharge Condition: GOOD Reason for Admission: Persistent diarrhea; hypokalemia Procedures: C diff culture negative - Problems (1) Hiatal hernia with GERD Current Visit: No Status: Chronic (2) Factor V Leiden Onset Date: 12/31/17 Current Visit: No Status: Chronic (3) Severe aortic stenosis Onset Date: 12/31/17 Current Visit: No Status: Chronic (4) Diarrhea Onset Date: 12/31/17 Current Visit: Yes Status: Acute Qualifiers: Diarrhea type: infectious Qualified Code(s): A09 - Infectious gastroenteritis and colitis, unspecified (5) Hypokalemia Onset Date: 12/31/17 Current Visit: Yes Status: Acute (6) CAD (coronary artery disease) of artery bypass graft Onset Date: 12/31/17 Current Visit: No Status: Chronic Qualifiers: [place] vs. transplanted heart: [place] heart Associated angina: without angina Qualified Code(s): I25.810 - Atherosclerosis of coronary artery bypass graft(s) without angina pectoris (7) COPD (chronic obstructive pulmonary disease) Onset Date: 07/14/16 Current Visit: No Status: Chronic Qualifiers: COPD type: chronic bronchitis Chronic bronchitis type: unspecified Qualified Code(s): J42 - Unspecified chronic bronchitis (8) Hypertension Onset Date: 07/14/16 Current Visit: No Status: Chronic Qualifiers: Hypertension type: essential hypertension Qualified Code(s): I10 - Essential (primary) hypertension (9) Chronic anticoagulation Onset Date: 07/14/16 Current Visit: No Status: Chronic (10) Peripheral vascular disease Onset Date: 07/14/16 Current Visit: No Status: Chronic (11) Chronic renal disease Onset Date: 07/14/16 Current Visit: No Status: Chronic Qualifiers: Chronic kidney disease stage: stage 3 (moderate) Qualified Code(s): N18.3 - Chronic kidney disease, stage 3 (moderate) (12) Hyponatremia Onset Date: 07/14/16 Current Visit: No Status: Acute (13) Chronic pain disorder Onset Date: 07/14/16 Current Visit: No Status: Chronic (14) Anemia Onset Date: 09/15/17 Current Visit: No Status: Acute Qualifiers: Anemia type: other cause Other causes of anemia: other cause, not classified Qualified Code(s): D64.89 - Other specified anemias (15) Colitis Current Visit: Yes Status: Acute Brief History of Present Illness: 72-year-old male presented emergency room with diarrhea. Patient recently had been on antibiotic therapy. Patient with multiple medical problems including severe aortic stenosis, AAA, chronic anti coagulation therapy for factor 5 Leiden, hypertension, chronic renal disease, anemia, history of GI bleed. The patient was admitted due to electrolyte abnormalities in the possibility of C diff colitis. The patient was started on oral therapy. Hospital Course: During the course of his stay patient improved. The patient was suspected in having C diff colitis. Patient was placed on vancomycin orally. Patient did well. Diarrhea resolved. Patient reported taking 2 prior antibiotics after he his procedures for his heart. At discharge patient likely had colitis. I will continue with vancomycin 125 mg 1 pill 4 times a day for 10 days. The patient is on chronic anti coagulation therapy-Coumadin. Coumadin may interact with antibiotic. Will recommend home health to check INR every other day. If INR above 3.5 he is to hold his Coumadin. Recommendations for the patient to follow up with GI as an outpatient to further monitor. Patient may require colonoscopy in 4-6 weeks. Recommendation is to recheck BMP in 1 week to monitor his progress. Patient with history of factor 5 Leiden, peripheral vascular disease, CAD, recent aortic valve replacement, recent AAA repair. Patient on chronic anti coagulation therapy. Patient will continue with Coumadin. Since the patient will be on antibiotic therapy his INR will need to be monitored every other day. If INR greater then 3.5 he is to hold his Coumadin. Patient has chronic renal disease. This to be monitored as an outpatient. Recommendation is recheck BMP in 1 week. Patient with history of iron/B12 deficiency with history of GI bleed. H&H stable this time. Patient received iron supplementation. At discharge she will continue with iron supplementation. Recommendation to recheck CBC in 1 week to monitor his progress. Patient has hypertension. Patient will continue with his medication. Recommendation is to maintain blood pressures less 150/80. Further adjustment can be done by PCP. Patient has chronic pain. He is to continue with his medication. Vital Signs/Physical Exam: Temp Pulse Resp BP Pulse Ox 98.8 F 71 20 145/73 H 97 01/01/18 08:00 01/01/18 08:00 01/01/18 08:00 01/01/18 08:00 01/01/18 08:00 General: Alert, In no apparent distress, Oriented x3, Cooperative HEENT: Atraumatic Neck: Supple Respiratory: Clear to auscultation bilaterally, Normal air movement Cardiovascular: Normal pulses, Regular rate/rhythm Gastrointestinal: Normal bowel sounds, Soft and benign, Non-distended, No tenderness, No masses, No rebound, No guarding Musculoskeletal: No erythema, No tenderness, No warmth Integumentary: No tenderness/swelling, No erythema, No warmth, No cyanosis Neurological: Normal speech, Normal strength at 5/5 x4 extr, Normal tone, Normal affect Lymphatics: No axilla or inguinal lymphadenopathy Laboratory Data at Discharge: WBC 5.2 K/uL (4.3-10.9) 01/01/18 04:42 Hgb 9.2 g/dL (13.6-17.9) L 01/01/18 11:56 Hct 29.9 % (39.6-49.0) L D 01/01/18 11:56 Plt Count 218 K/uL (152-406) 01/01/18 04:42 PT 25.3 SECONDS (9.5-12.5) H 01/01/18 04:42 INR 2.13 01/01/18 04:42 Sodium 134 mEq/L (135-145) L 01/01/18 04:42 Potassium 4.1 mEq/L (3.6-5.0) 01/01/18 04:42 BUN 8 mg/dL (6-20) 01/01/18 04:42 Creatinine 0.99 mg/dL (0.61-1.24) 01/01/18 04:42 Glucose 95 mg/dL (65-120) 01/01/18 04:42 Phosphorus 3.3 mg/dL (2.5-4.3) 12/31/17 11:08 Magnesium 1.7 mg/dL (1.8-2.5) L 01/01/18 04:42 Total Bilirubin 0.3 mg/dL (0.3-1.2) 12/31/17 04:23 AST 13 IU/L (10-42) 12/31/17 04:23 ALT 9 IU/L (10-60) L 12/31/17 04:23 Alkaline Phosphatase 153 IU/L (42-121) H 12/31/17 04:23 Home Medications: Cyanocobalamin (Vitamin B-12) [B-12] 1,000 mcg PO DAILY 07/13/16 Atorvastatin Calcium 1 tab PO DAILY 08/29/17 Topiramate 1 tab PO DAILY 08/29/17 Hydrocodone 10/APAP 325 [[place] 10/325*] 1 tab PO Q6H tab 09/17/17 Lisinopril [Prinivil*] 40 mg PO DAILY tab 09/17/17 Fentanyl 1 patch TD Q3D 10/24/17 Amitriptyline HCl 1 tab PO BEDTIME 12/31/17 Clonidine HCl [Catapres*] 1 tab PO QID PRN 12/31/17 Fluticasone/Vilanterol [Breo Ellipta 200-25 Mcg INH] 1 puff IH DAILY 12/31/17 Tizanidine HCl 2 - 4 tab PO DAILY PRN 12/31/17 Vit D3/Folic Acid/B2/B6/B12 [Folgard Tablet] 1 each PO DAILY 12/31/17 Warfarin Sodium [Coumadin*] 9 mg PO DAILY 12/31/17 Clopidogrel Bisulfate [Plavix*] 75 mg PO DAILY 01/01/18 Furosemide 40 mg PO DAILY 01/01/18 Lactobacillus Acidophilus [Acidophilus Lactobacilli] 1 each PO TID #30 capsule 01/01/18 Primidone [Mysoline *] 250 mg PO DAILY 01/01/18 Vancomycin HCl 125 mg PO QID #40 capsule 01/01/18 New Medications: Lactobacillus Acidophilus [Acidophilus Lactobacilli] 1 each PO TID #30 capsule Vancomycin HCl 125 mg PO QID #40 capsule Patient Discharge Instructions: 1. Patient will need to follow up his PCP in 1 week to follow up this hospitalization. 2. Patient presented with diarrhea. Patient previously on 2 different types of antibiotics. Patient responding well to antibiotic therapy. C diff culture was negative. Will continue to treat with vancomycin as I am still suspicious for C diff colitis. At discharge patient will continue with vancomycin 125 mg 1 pill 4 times a day for 10 days. The patient is on chronic anti coagulation therapy-Coumadin. Coumadin may interact with antibiotic. Will recommend home health to check INR every other day. If INR above 3.5 he is to hold his Coumadin. Recommendations for the patient to follow up with GI as an outpatient to further monitor. Patient may require colonoscopy in 4-6 weeks. Recommendation is to recheck BMP in 1 week to monitor his progress. 3. Patient with history of factor 5 Leiden , peripheral vascular disease, CAD, recent aortic valve replacement, recent AAA repair. Patient on chronic anti coagulation therapy. Patient will continue with Coumadin. Since the patient will be on antibiotic therapy his INR will need to be monitored every other day. If INR greater then 3.5 he is to hold his Coumadin. 4. Patient has chronic renal disease. This to be monitored as an outpatient. Recommendation is recheck BMP in 1 week. 5. Patient with history of iron/B12 deficiency with history of GI bleed. H&H stable this time. Patient received iron supplementation. At discharge she will continue with iron supplementation. Recommendation to recheck CBC in 1 week to monitor his progress. 6. Patient has hypertension. Patient will continue with his medication. Recommendation is to maintain blood pressures less 150/80. Further adjustment can be done by PCP. 7. Patient has chronic pain. He is to continue with his medication. Diet: AHA Activity: Fall precautions Time spent managing pt's care (in minutes): 55
[2018-01-01] MEDS ORDERED: WARFARIN SODIUM 3 MG TAB PO SCH (17:00)
[2018-01-01 17:43] VITALS: BP 163/73; TEMP 98.2
== END 2018-01-01 16:47 | disposition home health service (06) ==
LOC: ER 19:03 → ERHOLD 22:15 → 2ND 23:57
PROVIDERS: ADMIT Hospitalist; ATTEND Family Medicine
DX: A04.72 Enterocolitis due to Clostridium difficile, not specified as recurrent (principal); E87.6 Hypokalemia; G89.4 Chronic pain syndrome; I71.4 Abdominal aortic aneurysm, without rupture; I25.10 Atherosclerotic heart disease of native coronary artery without angina pectoris; J44.9 Chronic obstructive pulmonary disease, unspecified; D68.51 Activated protein C resistance; I35.0 Nonrheumatic aortic (valve) stenosis; K21.9 Gastro-esophageal reflux disease without esophagitis; K44.9 Diaphragmatic hernia without obstruction or gangrene; D64.9 Anemia, unspecified; I12.9 Hypertensive chronic kidney disease with stage 1 through stage 4 chronic kidney disease, or unspecified chronic kidney disease; N18.3 Chronic kidney disease, stage 3 (moderate); Z87.891 Personal history of nicotine dependence; Z86.73 Personal history of transient ischemic attack (TIA), and cerebral infarction without residual deficits; Z79.01 Long term (current) use of anticoagulants
CPT/HCPCS: 36415 ×2; 80048 ×3; 80053; 81003; 83735 ×3; 84100; 84132; 85014; 85018; 85025 ×4; 85610 ×2; 87045; 87046; 87086; 87088; 87493; 89055; 93005; 96365; 99285; G0378 ×2; J2916; J3475; J7030 ×2; 82728; J2270

== ENCOUNTER 2018-03-05 19:04 | Inpatient (IN) | payer OTHER ==
--- OUTSIDE RECORDS SUMMARY | 2018-03-05 19:07 | XMS REPORT | Clinical Summary ---
:1945 Author Organization [facility] Address [address] [place] [address] Phone Care Team Providers Name Role Phone Unavailable Primary Care Provider Unavailable Allergies No Known Allergies Current Medications Prescription Sig. Disp. Refills Start Date End Date Status omeprazole Take 20 mg by Active (PRILOSEC) 20 MG mouth daily. capsule cholecalciferol Take 800 Units Active (VITAMIN D3) 400 by mouth unit Tab tablet daily. albuterol HFA Inhale 1 puff Active (VENTOLIN HFA) 90 by mouth via mcg/actuation inhaler every inhaler 6 (six) hours as needed for Wheezing. atorvastatin Take 10 mg by Active (LIPITOR) 10 MG mouth daily. tablet lisinopril Take 40 mg by Active (PRINIVIL,ZESTRIL) mouth daily. 40 MG tablet amitriptyline Take 50 mg by Active (ELAVIL) 50 MG mouth nightly. tablet fluticasone-vilanter Inhale 1 puff Active ol (BREO ELLIPTA) by mouth via 200-25 mcg/dose DsDv inhaler daily. tiZANidine Take 4 mg by Active (ZANAFLEX) 4 MG mouth 3 tablet (three) times daily as needed. primidone (MYSOLINE) Take 250 mg by Active 250 MG tablet mouth daily. topiramate (TOPAMAX) Take 100 mg by Active 100 MG tablet mouth 2 (two) times daily. warfarin (COUMADIN) Take 9 mg by Active 10 MG tablet mouth daily. betamethasone, Apply 1-2 3 12/22/2017 Active augmented, grams to the (DIPROLENE) 0.05 % affected area cream twice daily or as directed. Max 8g/day. fentaNYL (DURAGESIC) 12/01/2017 Active 100 mcg/hr patch HYDROcodone-acetamin 12/16/2017 Active ophen (NORCO 10-325) 10-325 mg per tablet mupirocin Mix contents 3 12/22/2017 Active (BACTROBAN) 2 % of one tube ointment (22 grams) into foot bath daily nystatin Apply 2-3g to 3 12/22/2017 Active (MYCOSTATIN) 100,000 affected area unit/gram powder 2-4x/daiily OR DIRECTED. max 10g/day urea (CARMOL) 40 % Apply 1-2 3 12/22/2017 Active Crea topical cream grams to the affected area 3 to 4 times daily tamsulosin (FLOMAX) Take 1 capsule 30 capsule 0 02/05/2018 Active 0.4 mg Cp24 24 hr (0.4 mg total) capsule by mouth daily. carvedilol (COREG) Take 1 tablet 60 tablet 0 02/05/2018 Active 12.5 MG tablet (12.5 mg 8 total) by mouth 2 (two) times daily with breakfast and dinner for 30 days. warfarin (COUMADIN) Take 11 mg by Discontinued 10 MG tablet mouth daily. 8 cloNIDine HCl Take 0.1 mg by Discontinued (CATAPRES) 0.1 MG mouth daily as 8 tablet needed. aspirin 81 MG EC Take 81 mg by Discontinued tablet mouth daily. 8 topiramate (TOPAMAX) Take 100 mg by Discontinued 100 MG tablet mouth daily. 8 enoxaparin (LOVENOX) Inject Discontinued 100 mg/mL Syrg subcutaneously 8 . levoFLOXacin Take 500 mg by Discontinued (LEVAQUIN) 500 MG mouth daily. 8 tablet minocycline Take 1 capsule 10 capsule 0 12/10/2017 (MINOCIN,DYNACIN) (100 mg total) 8 100 MG capsule by mouth every 12 (twelve) hours for 5 days. doxycycline Mix contents 3 12/22/2017 Discontinued (MONODOX) 100 MG of 3 capsules 8 capsule into foot bath daily furosemide (LASIX) TAKE ONE (1) 99 12/11/2017 Discontinued 40 MG tablet TABLET(S) BY 8 MOUTH ONCE A DAY. clopidogrel (PLAVIX) Take 75 mg by Discontinued 75 mg tablet mouth daily. 8 aspirin 81 MG EC Take 81 mg by Discontinued tablet mouth daily. 8 carvedilol (COREG) Take 1 tablet 0 02/04/2018 Discontinued 6.25 MG tablet (6.25 mg 8 total) by mouth 2 (two) times daily. 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 Severe aortic stenosis Anemia Hypertension Hyperlipidemia COPD (chronic obstructive pulmonary disease) ([facility]) Seizures ([facility]) Peripheral vascular disease ([facility]) Blood clotting tendency ([facility]) Overview: DVT 09/2017 Factor VIII deficiency ([facility]) Atrial fibrillation ([facility]) GI bleed 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[facility]) Abdominal aortic aneurysm (AAA) ([facility]) DVT (deep venous thrombosis) ([facility]) Resolved Problems Problem Noted Date Resolved Date Stroke (HCC) 12/04/2017 Encounters Date Type Specialty Care Team Description 02/02/2018 - Hospital Encounter Cardiology Christian Hdz Acute pulmonary 02/05/2018 MD Rik insufficiency;Chronic obstructive pulmonary disease, unspecified COPD type ([facility]);Critical lower limb ischemia;Hypertensive urgency;Peripheral vascular disease ([facility]);Seizures ([facility]);SIRS (systemic inflammatory response syndrome) ([facility]);Thrombocytopenia ([facility]) 02/02/2018 Anesthesia Event Devon Li MD 02/02/2018 Procedure Pass 02/02/2018 Surgery Christian Hdz STEAM TABLE WORKER ILIAC ARTERY MD iRk 01/27/2018 - Hospital Encounter Cardiology Christian Hdz 01/28/2018 MD Rik 01/27/2018 Procedure Pass 01/27/2018 Surgery Christian Hdz PERIPHERAL ANGIOS / MD Rik AORTOGRAM 12/25/2017 Clinical Support Cardiology Gurinder Morelos MD 12/10/2017 Orders Only General Internal Medicine 12/09/2017 - Hospital Encounter Cardiology Christian Hdz Abdominal aortic 12/10/2017 MD Rik aneurysm (AAA) without rupture (HCC) 12/09/2017 Anesthesia Event Kye Nicole MD 12/09/2017 Procedure Pass 12/09/2017 Surgery Christian Hdz TAVR / KYLIE MCR - IP MD Rik PROC ONLY 12/04/2017 - Hospital Encounter Cardiology Christian Hdz 12/05/2017 MD Rik 12/04/2017 Procedure Pass 12/04/2017 Surgery Christian Hdz STEAM TABLE WORKER ILIAC ARTERY MD Rik 11/26/2017 Hospital Encounter Left without seen 11/26/2017 Office Visit Cardiology Aris Parker diastolic MD Charity congestive heart failure (HCC);Atrial fibrillation, unspecified type (HCC);Gastrointestinal hemorrhage, unspecified gastrointestinal hemorrhage type;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);Abdominal aortic aneurysm (AAA) without rupture (HCC) 11/26/2017 Hospital Encounter Radiology Christian Hdz Nonrheumatic aortic MD Rik valve stenosis 11/26/2017 Hospital Encounter Radiology Christian Hdz Nonrheumatic aortic MD Rik valve stenosis 11/16/2017 Office Visit Cardiology Gurinder Morelos MD stenosis;Anemia, unspecified type;Essential hypertension;Hyperlipid emia, unspecified hyperlipidemia type;Cerebrovascular accident (CVA), unspecified mechanism (HCC);Chronic obstructive pulmonary disease, unspecified COPD type (HCC);Seizures (HCC);Peripheral vascular disease (HCC);Bilateral carotid artery occlusion;Aneurysm (HCC);Blood clotting tendency (HCC);Factor VIII deficiency (HCC) 11/10/2017 Outside Orders [facility] Christian Hdz Nonrheumatic aortic Scheduling MD Rik valve stenosis (Primary Dx) after 03/04/2017 Social History Tobacco Use Types Packs/Day Years Used Date Former Smoker 1.5 50 Quit: 2010 Smokeless Tobacco: Current User Chew Comments: quit 2010 Alcohol Use Drinks/Week oz/Week Comments No Sex Assigned at Date Recorded Not on file Last Filed Vital Signs Vital Sign Reading Time Taken Blood Pressure 115/56 02/05/2018 12:20 PM CDT Pulse 66 02/05/2018 12:20 PM CDT Temperature 36.8 C (98.3 F) 02/05/2018 12:20 PM CDT Respiratory Rate 18 02/05/2018 12:20 PM CDT Oxygen Saturation 98% 02/05/2018 12:20 PM CDT Inhaled Oxygen Concentration - - Weight 75 kg (165 lb 6.4 oz) 02/05/2018 7:17 AM CDT Height 170.2 cm (5' 7") 02/02/2018 8:24 AM CDT Body Mass Index 25.91 02/05/2018 7:17 AM CDT Plan of Treatment Health Maintenance Due Date Last Done Comments INFLUENZA VACCINE 05/10/2018 Implants Implanted Type Area Geotechnical Field Technician Device Expiration Model / Identifier Date Serial / Lot Amplatzer Vascular Plug Ii Cardiovascular [facility] 12/07/2021 9-[id number] -[id number] / Implanted: Qty: 1 on 12/04/2017 by Christian Hdz MD / [id number] Azur 18 Detachable Helical Hydrocoil Coil 08/15/2020 [id number] / Implanted: Qty: 1 on 12/04/2017 by Christian Hdz MD / [id number] Azur 35 Detachable Helical Hydrocoil Coil 05/09/2022 [id number] / Implanted: Qty: 1 on 12/04/2017 by Christian Hdz MD / [id number] Azur 35 Detachable Helical Hydrocoil Coil 05/09/2022 [id number] / Implanted: Qty: 1 on 12/04/2017 by Christian Hdz MD / [id number] Azur 35 Detachable Helical Hydrocoil Coil 05/09/2022 [id number] / Implanted: Qty: 1 on 12/04/2017 by Christian Hdz MD / [id number] Azur Cx 35 Detachable Cx Coil Coil 07/09/2021 [id number] / Implanted: Qty: 1 on 12/04/2017 by Christian Hdz MD / [id number] Azur Cx 35 Detachable Cx Coil Coil 02/06/2021 [id number] / Implanted: Qty: 1 on 12/04/2017 by Christian Hdz MD / [id number] Azur Cx 35 Detachable Cx Coil Coil 08/09/2021 [id number] / Implanted: Qty: 1 on 12/04/2017 by Christian Hdz MD / [id number] Azur 35 Detachable Helical Hydrocoil Coil 10/02/2020 [id number] / Implanted: Qty: 1 on 12/04/2017 by Christian Hdz MD / [id number] Azur Cx 35 Detachable Cx Coil Coil 08/09/2021 [id number] / Implanted: Qty: 1 on 12/04/2017 by Christian Hdz MD / [id number] Azur 18 Detachable Helical Hydrocoil Coil 06/09/2018 [id number] / Implanted: Qty: 1 on 12/04/2017 by Christian Hdz MD / [id number] Azur 18 Detachable Helical Hydrocoil Coil 05/23/2020 [id number] / Implanted: Qty: 1 on 12/04/2017 by Christian Hdz MD / [id number] Azur Cx 18 Detachable Cx Coil Coil 06/09/2021 [id number] / Implanted: Qty: 1 on 12/04/2017 by Christian Hdz MD / [id number] Azur Cx 18 Detachable Cx Coil Coil 05/09/2021 [id number] / Implanted: Qty: 1 on 12/04/2017 by Christian Hdz MD / [id number] Azur 35 Detachable Framing Coil Coil 10/07/2022 [id number] / Implanted: Qty: 1 on 12/04/2017 by Christian Hdz MD / [id number] Azur 35 Detachable Framing Coil Coil 10/07/2022 [id number] / Implanted: Qty: 1 on 12/04/2017 by Christian Hdz MD / [id number] Azur 35 Detachable Framing Coil Coil 10/07/2022 [id number] / Implanted: Qty: 1 on 12/04/2017 by Christian Hdz MD / [id number] Azur 35 Detachable Framing Coil Coil 10/07/2022 [id number] / Implanted: Qty: 1 on 12/04/2017 by Christian Hdz MD / [id number] [facility] Knit Gld [id number] - [id number] Graft/Patch N/A: GETINGE 12/07/2021 [id number] / Implanted: Qty: 1 on 02/02/2018 by Christian Hdz MD Arterial IND: MAQUET:CV [id number] / [employer] Stents-Peripher BARD VASCULAR [id number] 05/30/2018 [id number] / Implanted: Qty: 1 on 02/02/2018 by Christian Hdz MD al / [id number] [employer] Stents-Peripher BARD VASCULAR [id number] 10/07/2020 [id number] / Implanted: Qty: 1 on 02/02/2018 by Christian Hdz MD al / [id number] [employer] Stents-Peripher BARD VASCULAR [id number] 07/31/2020 [id number] / Implanted: Qty: 1 on 02/02/2018 by Christian Hdz MD al / [id number] [employer] Stents-Peripher BARD VASCULAR [id number] 04/09/2020 [id number] / Implanted: Qty: 1 on 02/02/2018 by Christian Hdz MD al / [id number] [employer] Denilson 3 Thv Valves N/A: HIGGINS 08/20/2019 [id number] / Implanted: Qty: 1 on 12/09/2017 by Christian Hdz MD Heart [employer] [id number] / Procedures Procedure Name Priority Date/Time Associated Diagnosis Comments STEAM TABLE WORKER ILIAC ARTERY 02/02/2018 1:11 PM CDT Vascular disease, peripheral (HCC) Case Notes (2) CASE POP6 REQ RM 10 CV ANESTHESIA PERIPHERAL ANGIOS / 01/27/2018 6:20 PM CDT PVD (peripheral vascular AORTOGRAM disease) (HCC) Case Notes POP6 PERIPHERAL ANGIOGRAM POSS STEAM TABLE WORKER TAVR / KYLIE MCR - IP 12/09/2017 4:10 AM CDT Aortic valve stenosis, PROC ONLY nonrheumatic Case Notes (1) Case, 6T OP, MAC ANESTHESIA. 5773mGy Special Needs MAC ANESTHESIA STEAM TABLE WORKER FEMORAL &/OR POPLITEAL 12/04/2017 7:35 AM CDT PVD (peripheral vascular disease) (HCC) Case Notes (2) POP6 STEAM TABLE WORKER ILIAC ARTERY 12/04/2017 7:35 AM CDT PVD (peripheral vascular disease) (HCC) Case Notes (2) POP6 after 03/04/2017 Results EKG-SCANNED (02/08/2018 12:40 PM)Only the most recent of4 resultswithin the time period is included.VASCULAR DIAGRAM -SCAN (02/08/2018 12:40 PM)Only the most recent of5 resultswithin the time period is included.RHYTHM STRIP - SCAN ( 02/08/2018 12:40 PM)Only the most recent of4 resultswithin the time period is included.TRANSFUSION SERVICE REPORT - SCAN (02/07/2018 6:00 PM)Only the most recent of7 resultswithin the time period is included.Prepare RBC (02/05/2018 3: 24 PM)Only the most recent of3 resultswithin the time period is included. Component Value Ref Range Unit ABO O Neg UNIT NUMBER [id number] Status WORK IN PROGRESS Blood Bank Product RED BLOOD CELLS PRODUCT CODE J0457B37 Unit ABO O Neg UNIT NUMBER [id number] Status WORK IN PROGRESS Blood Bank Product RED BLOOD CELLS PRODUCT CODE [id number] CROSSMATCH COMPATIBLE CROSSMATCH COMPATIBLE Specimen Performing Laboratory S[facility]ETR[place] CBC (Hemogram only) (02/05/2018 5:13 AM)Only the most recent of5 resultswithin the time period is included. Component Value Ref Range WBC 6.5 3.5 - 10.5 K/L RBC 3.24 (L) 4.63 - 6.08 M/L Hemoglobin 8.5 (L) 13.7 - 17.5 GM/DL Hematocrit 27.4 (L) 40.1 - 51.0 % MCV 84.6 79.0 - 92.2 fL MCH 26.2 25.7 - 32.2 pg MCHC 31.0 (L) 32.3 - 36.5 GM/DL RDW 18.4 (H) 11.6 - 14.4 % Platelets 127 (L) 150 - 450 K/CU MM MPV 9.8 9.4 - 12.4 fL nRBC 0 0 - 0 /100 WBC Specimen Performing Laboratory Blood [facility] [address] [address] Phosphorus (02/05/2018 5:13 AM)Only the most recent of4 resultswithin the time period is included. Component Value Ref Range Phosphorus 2.2 (L) 2.3 - 4.7 mg/dL Specimen Performing Laboratory Blood [address] [address] Magnesium (02/05/2018 5:13 AM)Only the most recent of4 resultswithin the time period is included. Component Value Ref Range Magnesium 2.1 1.6 - 2.6 mg/dL Specimen Performing Laboratory Blood [address] [address] Basic Metabolic Panel (02/05/2018 5:13 AM)Only the most recent of6 resultswithin the time period is included. Component Value Ref Range Sodium 131 (L) 136 - 145 meq/L Potassium 3.5 3.5 - 5.1 meq/L Chloride 101 98 - 107 meq/L CO2 26 22 - 29 meq/L BUN 12 7 - 21 mg/dL Creatinine 0.95 0.57 - 1.25 mg/dL Glucose 96 70 - 105 mg/dL Calcium 8.4 8.4 - 10.2 mg/dL EGFR 77Comment: ESTIMATED GFR IS NOT ACCURATE mL/min/1.73 sq m CREATININE CLEARANCE IN PREDICTING GLOMERULAR FILTRATION RATE. ESTIMATED GFR IS NOT APPLICABLE FOR DIALYSIS PATIENTS. Specimen Performing Laboratory Blood [address] [address] Hemoglobin and hematocrit (02/04/2018 11:49 AM)Only the most recent of2 resultswithin the time period is included. Component Value Ref Range Hemoglobin 8.4 (L) 13.7 - 17.5 GM/DL Hematocrit 28.9 (L) 40.1 - 51.0 % Specimen Performing Laboratory Blood - Arm, Right [address] [address] CBC with platelet count + automated diff (02/03/2018 3:25 PM)Only the most recent of4 resultswithin the time period is included. Component Value Ref Range WBC 13.1 (H) 3.5 - 10.5 K/L RBC 4.01 (L) 4.63 - 6.08 M/L Hemoglobin 10.2 (L) 13.7 - 17.5 GM/DL Hematocrit 32.3 (L) 40.1 - 51.0 % MCV 80.5 79.0 - 92.2 fL MCH 25.4 (L) 25.7 - 32.2 pg MCHC 31.6 (L) 32.3 - 36.5 GM/DL RDW 18.1 (H) 11.6 - 14.4 % Platelets 162 150 - 450 K/CU MM MPV 10.3 9.4 - 12.4 fL nRBC 0 0 - 0 /100 WBC % Neutros 86 % % Lymphs 5 % % Monos 7 % % Eos 0 % % Baso 0 % # Neutros 11.26 (H) 1.78 - 5.38 K/L # Lymphs 0.70 (L) 1.32 - 3.57 K/L # Monos 0.95 (H) 0.30 - 0.82 K/L # Eos 0.00 (L) 0.04 - 0.54 K/L # Baso 0.04 0.01 - 0.08 K/L Immature Granulocytes-Relative 1 0 - 1 % Specimen Performing Laboratory Blood - Arm, Right [address] [address] CBC with platelet count + automated diff (02/03/2018 3:25 PM)Only the most recent of4 resultswithin the time period is included. Specimen Performing Laboratory Blood Narrative The following orders were created for panel order CBC with platelet count + automated diff. Procedure Abnormality Status --------- ------ CBC with platelet count ...[[id number]]AbnormalFinal result Please view results for these tests on the individual orders. CARDIAC CATH REPORT - SCAN (02/03/2018 12:40 PM)Only the most recent of5 resultswithin the time period is included.Comprehensive metabolic panel (2017 5:10 AM)Only the most recent of2 resultswithin the time period is included. Component Value Ref Range Protein, Total 5.7 (L) 6.0 - 8.3 gm/dL Albumin 3.3 (L) 3.5 - 5.0 g/dL Alkaline Phosphatase 133 40 - 150 U/L Total Bilirubin 0.8 0.2 - 1.2 mg/dL Sodium 134 (L) 136 - 145 meq/L Potassium 4.1 3.5 - 5.1 meq/L Chloride 106 98 - 107 meq/L CO2 19 (L) 22 - 29 meq/L BUN 6 (L) 7 - 21 mg/dL Creatinine 0.88 0.57 - 1.25 mg/dL Glucose 163 (H) 70 - 105 mg/dL Calcium 8.3 (L) 8.4 - 10.2 mg/dL AST 12 5 - 34 U/L ALT <6 (L) 6 - 55 U/L EGFR 85Comment: ESTIMATED GFR IS NOT ACCURATE mL/min/1.73 sq m CREATININE CLEARANCE IN PREDICTING GLOMERULAR FILTRATION RATE. ESTIMATED GFR IS NOT APPLICABLE FOR DIALYSIS PATIENTS. Specimen Performing Laboratory Blood - Line, Venous [facility] [address] [address] XR chest 1 view portable / bedside (02/02/2018 11:00 PM) Specimen Performing Laboratory RIS Narrative FINAL REPORT Chest, one view HISTORY: Postop COMPARISON: CTA of the chest from 11/26/2017 DISCUSSION: Tortuosity and enlargement of the thoracic aorta, as seen on prior CTA. Lungs grossly clear without focal consolidation. No large pleural effusion or pneumothorax. Aortic valve prosthesis is seen. No acute osseous abnormality. IMPRESSION: Unchanged tortuosity and enlargement of the thoracic aorta. No new acute cardiopulmonary abnormality. Signed: Denzel Huitron MD Report Verified Date/Time:02/02/2018 23:12:37 Reading Location: [facility] Consult Reading Room Procedure Note Interface, External Ris In - 02/02/2018 11:14 PM CDT FINAL REPORT Chest, one view HISTORY: Postop COMPARISON: CTA of the chest from 11/26/2017 DISCUSSION: Tortuosity and enlargement of the thoracic aorta, as seen on prior CTA. Lungs grossly clear without focal consolidation. No large pleural effusion or pneumothorax. Aortic valve prosthesis is seen. No acute osseous abnormality. IMPRESSION: Unchanged tortuosity and enlargement of the thoracic aorta. No new acute cardiopulmonary abnormality. Signed: Denzel Huitron MD Report Verified Date/Time: 02/02/2018 23:12:37 Reading Location: [facility] Consult Reading Room Oxygen saturation, measured (02/02/2018 10:51 PM) Component Value Ref Range O2 Saturation (Measured) 72.2 % Specimen Performing Laboratory Blood [address] [address] Calcium, Ionized (02/02/2018 10:51 PM)Only the most recent of4 resultswithin the time period is included. Component Value Ref Range Calcium, Ion 1.02 (L) 1.12 - 1.27 mmol/L pH, Blood 7.38 Specimen Performing Laboratory Blood [address] [address] Lactic acid, arterial, whole blood (02/02/2018 10:51 PM) Component Value Ref Range Lactate, Art 1.7 0.5 - 2.2 mmol/L Specimen Performing Laboratory Blood, Arterial [address] [address] Narrative Effective 12/12/2015: Units/Reference Range Change New: 0.5-2.2 mmol/LPrevious: 5-20 mg/dL aPTT (02/02/2018 10:51 PM)Only the most recent of2 resultswithin the time period is included. Component Value Ref Range PTT 29.8 22.5 - 36.0 seconds Specimen Performing Laboratory Blood [address] [address] Prothrombin time/INR (02/02/2018 10:51 PM)Only the most recent of4 resultswithin the time period is included. Component Value Ref Range Protime 15.6 (H) 11.7 - 14.7 seconds INR 1.2 <=5.9 Specimen Performing Laboratory Blood [address] [address] Narrative RECOMMENDED COUMADIN/WARFARIN INR THERAPY RANGES STANDARD DOSE: 2.0 - 3.0 Includes: PROPHYLAXIS for venous thrombosis, systemic embolization; TREATMENT for venous thrombosis and/or pulmonary embolus. HIGH RISK: Target INR is 2.5-3.5 for patients with mechanical heart valves. Fibrinogen (02/02/2018 10:51 PM)Only the most recent of2 resultswithin the time period is included. Component Value Ref Range Fibrinogen 276 225 - 434 mg/dl Specimen Performing Laboratory Blood [address] [address] Vancomycin level, trough (02/02/2018 10:51 PM) Component Value Ref Range Vancomycin Tr <1.1 (L) 10.0 - 20.0 ug/mL Specimen Performing Laboratory Blood [address] [address] Hepatic function panel (02/02/2018 10:51 PM) Component Value Ref Range Protein, Total 5.8 (L) 6.0 - 8.3 gm/dL Albumin 3.5 3.5 - 5.0 g/dL Total Bilirubin 1.5 (H) 0.2 - 1.2 mg/dL Bilirubin, Direct 0.8 (H) 0.1 - 0.5 mg/dL Alkaline Phosphatase 142 40 - 150 U/L AST 12 5 - 34 U/L ALT 7 6 - 55 U/L Specimen Performing Laboratory Blood [address] [address] Tissue Exam (02/02/2018 7:42 PM) Component Value Ref Range Case Report Surgical Pathology Report Case: [id number] Authorizing Provider:Christian Hdz MD Collected: 02/02/20181941 [facility] CREDIT COMPLIANCE OFFICER SERVICESReceived: 02/03/2018812 Pathologist: Sidney Wright MD Specimen:Plaque DIAGNOSIS ARTERY, RIGHT EMERALD, ENDARTERECTOMY: CALCIFIC ATHEROSCLEROTIC PLAQUE WITH EROSION AND ATTACHED ORGANIZING THROMBUS Signing Pathologist Direct Phone Line: [phone] CPT Code(s) 00916; 35446 CLINICAL HISTORY Right femoral artery plaque SPECIMEN SOURCE Right femoral artery plaque GROSS DESCRIPTION The specimen is received in a formalin-filled container and labeled with the patient's information and labeled "right femoral artery plaque and consists of two calcified fragments of tissue both measuring 2 cm in length ranging in diameter from 0.6 to 1 cm and separate segment of hemorrhagic calcified tissue measuring 2.5 x 1.5 x 1 cm in aggregate. Slurry Tank Operator sections are submitted A1 for decalcification. CG/pl MICROSCOPIC DESCRIPTION Performed Specimen Performing Laboratory Tissue - Plaque [address] [address] [facility] CRITICAL LABS (ABG,NA,K,H&H,GLUCOSE) (02/02/2018 6:42 PM)Only the most recent of3 resultswithin the time period is included. Specimen Performing Laboratory Blood, Arterial Narrative The following orders were created for panel order [facility] CRITICAL LABS (ABG,NA,K,H&H,GLUCOSE). Procedure Abnormality Status --------- ------ Blood gas, arterial[[id number]]AbnormalFinal result Sodium Na-Stat Lab[[id number]] AbnormalFinal result Potassium-Stat Lab[[id number]] NormalFinal result Glucose-Stat Lab[[id number]] AbnormalFinal result HGB/HCT (H&H)-Stat Lab[[id number]] Abnormal Final result Please view results for these tests on the individual orders. Hemoglobin-Stat Lab (02/02/2018 6:42 PM) Component Value Ref Range Hemoglobin 9.9 (L) 13.0 - 16.8 g/dL Specimen Performing Laboratory Blood, [address] [address] Potassium-Stat Lab (02/02/2018 6:42 PM)Only the most recent of3 resultswithin the time period is included. Component Value Ref Range Potassium 4.2 3.6 - 5.5 meq/L Specimen Performing Laboratory Blood, [address] [address] Sodium Na-Stat Lab (02/02/2018 6:42 PM)Only the most recent of3 resultswithin the time period is included. Component Value Ref Range Sodium 133 (L) 135 - 148 meq/L Specimen Performing Laboratory Blood, [address] [address] Glucose-Stat Lab (02/02/2018 6:42 PM)Only the most recent of3 resultswithin the time period is included. Component Value Ref Range Glucose 134 (H) 70 - 110 mg/dL Specimen Performing Laboratory Blood, [address] [address] Hematocrit-Stat Lab (02/02/2018 6:42 PM) Component Value Ref Range Hematocrit 29.0 (L) 40.0 - 50.0 % Specimen Performing Laboratory Blood, Arterial [address] [address] HGB/HCT (H&H)-Stat Lab (02/02/2018 6:42 PM)Only the most recent of3 resultswithin the time period is included. Component Value Ref Range Hemoglobin 9.9 (L) 13.0 - 16.8 GM/DL Hematocrit 29.0 (L) 40.0 - 50.0 % Specimen Performing Laboratory Blood, Arterial [address] [address] Blood gas, arterial (02/02/2018 6:42 PM)Only the most recent of3 resultswithin the time period is included. Component Value Ref Range pH, Arterial 7.37 7.35 - 7.45 pCO2, Arterial 39 35 - 45 mmHg pO2, Arterial 229 (H) 80 - 90 mmHg O2 Sat, Arterial 99.5 (H) 96.0 - 97.0 % HCO3, Arterial 22 21 - 29 mmol/L Base Excess, Arterial -3.4 (L) -2.0 - 3.0 mmol/L Patient Temperature 37.0 C Specimen Performing Laboratory Blood, Arterial [address] [address] Platelet count (02/02/2018 6:42 PM) Component Value Ref Range Platelets 149 (L) 150 - 450 K/CU MM Specimen Performing Laboratory Blood [address] [address] POC ACTIVATED CLOTTING TIME (02/02/2018 5:35 PM)Only the most recent of9 resultswithin the time period is included. Component Value Ref Range Activated Clotting Time 279Comment: TESTED AT [address] [place] [address] Specimen Performing Laboratory Blood [address] [address] Antibody identification (02/02/2018 1:43 PM)Only the most recent of3 resultswithin the time period is included. Component Value Ref Range ANTIBODY ID (BEAKER) Anti-E Antibody Consult SIGNED OUTComment: Anti E causes RBC injury, transfuse E negative RBCs.Electronic Signature: James [place], M.D. Specimen Performing Laboratory [facility] [place] Type and screen, automated (02/02/2018 9:21 AM)Only the most recent of3 resultswithin the time period is included. Component Value Ref Range ABO/RH AUTOMATED (BEAKER) O POSITIVE Ab Scrn POSITIVEComment: echo 2 Specimen Performing Laboratory Blood [facility] [address] [place] [address] MRA extremity lower without & with IV contrast (01/28/2018 5:13 PM) Specimen Performing Laboratory [facility] RIS Narrative FINAL REPORT MRA of the lower extremities, 28 January 2018 INDICATION:This is a 72 years old male a diagnosis of peripheral vascular disease presents for assessment. This study is performed in an attempt to avoid invasive procedure, and potentially nephrotoxic contrast agent. TECHNIQUE: LUKE ACHIEVA MRI scanner. Limited axial images were obtained for planning purposes.Thereafter, during a slow bolus infusion of gadolinium, a Mobitrak technique was performed.3-D reconstruction was performed by an independent workstation (Synclogue). Please refer to the contrast sheet scanned in the RIS system for the amount and route of contrast given. Note patient also have a recent CT scan TAVR evaluation in November 2017 FINDINGS: Assessment of the extravascular structures are limited, and patient has recent CT scan in the abdomen and pelvis. Refer to formal dictation for details. Similar to prior examination, the distal descending thoracic aorta is tortuous. Above the diaphragm, the distal descending thoracic aorta measures 5.1 x 5.1 cm similar to prior CT scan report. The status of the abdominal aorta is essentially unchanged when compared to the recent CT scan. The proximal abdominal aorta is agua caliente. The celiac axis, SMA are patent with no obstructive lesion identified. Single left and right renal arteries are seen. Atherosclerosis is seen at the proximal left renal artery; remainder of the left renal artery is widely patent. The right renal artery is patent. Patient is post grafting of the infrarenal abdominal aorta and from the CT scan, the left limb connects to the left external iliac artery and the right limb connects to the origin of the right external iliac artery. No proximal or distal anastomotic stenosis is identified. In the recent CT scan, aneurysmal dilation is identified in close proximity to the left common iliac artery there is no longer identified representing coil embolisation procedure as per EPIC. The agua caliente left external iliac artery and the left common femoral artery is patent with no obstructive lesion identified except for some mild atherosclerosis. In the right, no difference to recent CT scan, the right external iliac artery has diffuse atherosclerosis identified, and is small in calibre; the above would suggest moderate to significant diffuse of the right external iliac artery. The right common femoral artery is patent for short distance and thereafter is occluded. In the left, the left profunda system is patent. The proximal few centimeters of the left SFA could be agua caliente. However, there is likely a left femoral to popliteal bypass graft identified due to the course of the artery. This graft is widely patent with no proximal or distal anastomotic stenosis present. In the left lower extremity, it appears the tibioperoneal trunk is small and very short. The left anterior tibial artery is well identified and is patent though atherosclerosis is seen, with no critical obstructive lesion identified. The dorsalis pedis artery is seen distally. The left peroneal artery is well seen down to level of the ankle. Significant diffuse disease is seen in the left posterior tibial artery. In the right, the agua caliente right SFA is seen to be occluded. Per EPIC, patient has prior femoral to popliteal bypass graft x2.No patent graft is identified. The right popliteal artery also appears to be occluded as no enhancement is identified. In the very delayed images, with a single-vessel is identified that may represent the right peroneal artery. Confidence of this finding is low. CONCLUSIONS: 1.Dilation is seen in the descending thoracic aorta with maximum diameter measure approximately 5.1 x 5.1 cm, similar to recent CT scan report. 2.The proximal abdominal aorta is unremarkable. Patient is post grafting of the infrarenal abdominal aorta and from the CT scan, the left limb connects to the left external iliac artery and the right limb connects to the origin of the right external iliac artery. No proximal or distal anastomotic stenosis is identified. 3.The left the external iliac and the left common femoral artery is unremarkable. Moderately significant circumferential diffuse disease is seen throughout the course of the right external iliac artery. The proximal right common femoral artery is patent for short distance, though thereafter, it is occluded. 4.The agua caliente left SFA is likely occluded and a left femoral to distal popliteal bypass graft is identified that is patent with no proximal or distal anastomotic stenosis. Essentially three-vessel runoff is seen in the left lower extremity. 5.In the right, the agua caliente right SFA is occluded. It appears patient is reported to have two femoral to popliteal bypass graft but no patent graft is identified. No enhancement is seen in the right orbital artery indicating occlusion. Due to poor inflow, it is difficult to assess the runoff vessel in the right lower extremity. In the delay images, there appears to be single vessel runoff, probably the right peroneal artery though the confidence of this finding is low. 6.This study is not optimizing assessment of extravascular structures. Signed: Juwan Ramirez MD Report Verified Date/Time:01/28/2018 17:43:09 Reading Location: [place] [id number] Cardiology MRI Procedure Note Interface, External Ris In - 01/28/2018 5:45 PM CDT FINAL REPORT MRA of the lower extremities, 28 January 2018 INDICATION: This is a 72 years old male a diagnosis of peripheral vascular disease presents for assessment. This study is performed in an attempt to avoid invasive procedure, and potentially nephrotoxic contrast agent. TECHNIQUE: LUKE ACHIEVA MRI scanner. Limited axial images were obtained for planning purposes. Thereafter, during a slow bolus infusion of gadolinium, a Mobitrak technique was performed. 3-D reconstruction was performed by an independent workstation (Synclogue). Please refer to the contrast sheet scanned in the RIS system for the amount and route of contrast given. Note patient also have a recent CT scan TAVR evaluation in November 2017 FINDINGS: Assessment of the extravascular structures are limited, and patient has recent CT scan in the abdomen and pelvis. Refer to formal dictation for details. Similar to prior examination, the distal descending thoracic aorta is tortuous. Above the diaphragm, the distal descending thoracic aorta measures 5.1 x 5.1 cm similar to prior CT scan report. The status of the abdominal aorta is essentially unchanged when compared to the recent CT scan. The proximal abdominal aorta is agua caliente. The celiac axis, SMA are patent with no obstructive lesion identified. Single left and right renal arteries are seen. Atherosclerosis is seen at the proximal left renal artery; remainder of the left renal artery is widely patent. The right renal artery is patent. Patient is post grafting of the infrarenal abdominal aorta and from the CT scan, the left limb connects to the left external iliac artery and the right limb connects to the origin of the right external iliac artery. No proximal or distal anastomotic stenosis is identified. In the recent CT scan, aneurysmal dilation is identified in close proximity to the left common iliac artery there is no longer identified representing coil embolisation procedure as per EPIC. The agua caliente left external iliac artery and the left common femoral artery is patent with no obstructive lesion identified except for some mild atherosclerosis. In the right, no difference to recent CT scan, the right external iliac artery has diffuse atherosclerosis identified, and is small in calibre; the above would suggest moderate to significant diffuse of the right external iliac artery. The right common femoral artery is patent for short distance and thereafter is occluded. In the left, the left profunda system is patent. The proximal few centimeters of the left SFA could be agua caliente. However, there is likely a left femoral to popliteal bypass graft identified due to the course of the artery. This graft is widely patent with no proximal or distal anastomotic stenosis present. In the left lower extremity, it appears the tibioperoneal trunk is small and very short. The left anterior tibial artery is well identified and is patent though atherosclerosis is seen, with no critical obstructive lesion identified. The dorsalis pedis artery is seen distally. The left peroneal artery is well seen down to level of the ankle. Significant diffuse disease is seen in the left posterior tibial artery. In the right, the agua caliente right SFA is seen to be occluded. Per EPIC, patient has prior femoral to popliteal bypass graft x2. No patent graft is identified. The right popliteal artery also appears to be occluded as no enhancement is identified. In the very delayed images, with a single-vessel is identified that may represent the right peroneal artery. Confidence of this finding is low. CONCLUSIONS: 1. Dilation is seen in the descending thoracic aorta with maximum diameter measure approximately 5.1 x 5.1 cm, similar to recent CT scan report. 2. The proximal abdominal aorta is unremarkable. Patient is post grafting of the infrarenal abdominal aorta and from the CT scan, the left limb connects to the left external iliac artery and the right limb connects to the origin of the right external iliac artery. No proximal or distal anastomotic stenosis is identified. 3. The left the external iliac and the left common femoral artery is unremarkable. Moderately significant circumferential diffuse disease is seen throughout the course of the right external iliac artery. The proximal right common femoral artery is patent for short distance, though thereafter, it is occluded. 4. The agua caliente left SFA is likely occluded and a left femoral to distal popliteal bypass graft is identified that is patent with no proximal or distal anastomotic stenosis. Essentially three-vessel runoff is seen in the left lower extremity. 5. In the right, the agua caliente right SFA is occluded. It appears patient is reported to have two femoral to popliteal bypass graft but no patent graft is identified. No enhancement is seen in the right orbital artery indicating occlusion. Due to poor inflow, it is difficult to assess the runoff vessel in the right lower extremity. In the delay images, there appears to be single vessel runoff, probably the right peroneal artery though the confidence of this finding is low. 6. This study is not optimizing assessment of extravascular structures. Signed: Juwan Ramirez MD Report Verified Date/Time: 01/28/2018 17:43:09 Reading Location: [place] [address] Cardiology MRI Vein mapping arm/arms (01/28/2018 1:00 PM) Component Value Ref Range Ejection Fraction Specimen Performing Laboratory [facility] ECHO HEARTLAB MKCKESSON CPACS Impressions Right Impression 1. There is no deep venous obstruction in the jugular, subclavian, axillary, brachial, radial or ulnar veins. 2. There is no superficial venous obstruction in the cephalic or basilic veins. 3. The subclavian, axillary, brachial, radial and ulnar arteries are patent with normal triphasic Doppler waveforms throughout. Left Impression 1. There is no deep venous obstruction in the jugular, subclavian, axillary, brachial, radial or ulnar veins. 2. There is no superficial venous obstruction in the cephalic or basilic veins. 3. The subclavian, axillary, brachial, radial and ulnar arteries are patent with normal triphasic Doppler waveforms throughout. 4. There is focal superficial venous thrombosis of the basilic vein at the antecubital fossa. Conclusions Summary Arterial duplex imaging, venous duplex imaging and compression of both upper extremities was performed. All arteries and veins were adequately visualized. The arteries were patent with normal triphasic Doppler waveforms bilaterally. The venous systems were patent and compressible with no evidence of thrombus bilaterally. There was focal superficial thrombosis of the left basilic vein at the antecubital fossa. Superficial venous measurements are documented below. Signature Velocities are measured in cm/s ; Diameters are measured in cm Cephalic Mapping Right Left + + + + + + + + !Location ! !AP Diam! Trans Diam! !AP Diam!Trans Diam! + + + + + + + + !Cephalic at Prox UA ! !0.24 !! !0.37 !! + + + + + + + + !Cephalic at Mid UA ! !0.14 !! !0.18 !! + + + + + + + + !Cephalic at Dist UA ! !0.16 !! !0.09 !! + + + + + + + + !Cephalic at Prox LA ! !0.15 !! !0.13 !! + + + + + + + + !Cephalic at Mid LA ! !0.1! ! !0.1! ! + + + + + + + + !Cephalic at Dist LA ! !0.12 !! !0.08 !! + + + + + + + + Basilic Mapping Right Left + + + + + + + + !Location ! !AP Diam! Trans Diam! !AP Diam!Trans Diam! + + + + + + + + !Basilic at Prox UA ! !0.37 !! !0.43 !! + + + + + + + + !Basilic at Mid UA ! !0.25 !! !0.19 !! + + + + + + + + !Basilic at Dist UA ! !0.29 !! !0.15 !! + + + + + + + + Narrative [facility] LAB - Upper Extremities Vein Mapping Demographics Patient Name Luis Felipe MCKEON of Study 01/28/2018 DOROTEO [id number] Age 72 Visit Number [id number] GenderMale Accession Number [id number] Date of 1945 [facility] Room Number C632 Alejandro. Ryan Umanzor. Alessandro Morelos MD, RVTPhysician RPVI Procedure Type of Study: Veins: Upper Extremity Vein Mapping, VEIN MAPPING ARM/ARMS. Indications for Study:Pre-op for vein harvesting. Patient Status:Routine. Study Location:Vascular Lab. Technical Quality:Adequate visualization. - Results were reported to:CHRYSTAL Robledo @ 3527. Risk Factors History of Disease + +----+ + !Diagnosis !Date!Comments ! + +----+ + !History/Risk Factors: !!PAD, COPD, HTN, HLD, CAD, AAA ! + +----+ + Procedure Note Interface, External Ris In - 01/28/2018 2:18 PM CDT PV LAB - Upper Extremities Vein Mapping Demographics Patient Name WALTER MCKEON Date of Study 01/28/2018 DOROTEO Age 72 Visit Number [id number] Gender Male Accession Number [id number] Date of 1945 Referring [facility] Room Number C632 Physician EYulissa Back Tender Pulp Drier Trupti Samaniego Interpreting Oral Morelos MD, RVT Physician ALYSAVI Procedure Type of Study: Veins: Upper Extremity Vein Mapping, VEIN MAPPING ARM/ARMS. Indications for Study:Pre-op for vein harvesting. Patient Status:Routine. Study Location:Vascular Lab. Technical Quality:Adequate visualization. - Results were reported to:CHRYSTAL Robledo @ 1254. Risk Factors History of Disease + +----+ + !Diagnosis !Date!Comments ! + +----+ + !History/Risk Factors: ! !PAD, COPD, HTN, HLD, CAD, AAA ! + +----+ + Impressions Right Impression 1. There is no deep venous obstruction in the jugular, subclavian, axillary, brachial, radial or ulnar veins. 2. There is no superficial venous obstruction in the cephalic or basilic veins. 3. The subclavian, axillary, brachial, radial and ulnar arteries are patent with normal triphasic Doppler waveforms throughout. Left Impression 1. There is no deep venous obstruction in the jugular, subclavian, axillary, brachial, radial or ulnar veins. 2. There is no superficial venous obstruction in the cephalic or basilic veins. 3. The subclavian, axillary, brachial, radial and ulnar arteries are patent with normal triphasic Doppler waveforms throughout. 4. There is focal superficial venous thrombosis of the basilic vein at the antecubital fossa. Conclusions Summary Arterial duplex imaging, venous duplex imaging and compression of both upper extremities was performed. All arteries and veins were adequately visualized. The arteries were patent with normal triphasic Doppler waveforms bilaterally. The venous systems were patent and compressible with no evidence of thrombus bilaterally. There was focal superficial thrombosis of the left basilic vein at the antecubital fossa. Superficial venous measurements are documented below. Signature Velocities are measured in cm/s ; Diameters are measured in cm Cephalic Mapping Right Left + + + + + + +--- + !Location ! !AP Diam !Trans Diam ! !AP Diam ! Trans Diam ! + + + + + + +--- + !Cephalic at Prox UA ! !0.24 ! ! !0.37 ! ! + + + + + + +--- + !Cephalic at Mid UA ! !0.14 ! ! !0.18 ! ! + + + + + + +--- + !Cephalic at Dist UA ! !0.16 ! ! !0.09 ! ! + + + + + + +--- + !Cephalic at Prox LA ! !0.15 ! ! !0.13 ! ! + + + + + + +--- + !Cephalic at Mid LA ! !0.1 ! ! !0.1 ! ! + + + + + + +--- + !Cephalic at Dist LA ! !0.12 ! ! !0.08 ! ! + + + + + + +--- + Basilic Mapping Right Left + + + + + + +--- + !Location ! !AP Diam !Trans Diam ! !AP Diam ! Trans Diam ! + + + + + + +--- + !Basilic at Prox UA ! !0.37 ! ! !0.43 ! ! + + + + + + +--- + !Basilic at Mid UA ! !0.25 ! ! !0.19 ! ! + + + + + + +--- + !Basilic at Dist UA ! !0.29 ! ! !0.15 ! ! + + + + + + +--- + ECHOCARDIOGRAM REPORT - SCAN (12/11/2017 3:24 PM)Only the most recent of2 resultswithin the time period is included.2D Echo W/Doppler(CW/PW/Color) (2017 8:51 AM) Component Value Ref Range Ejection Fraction Specimen Performing Laboratory [facility] ECHO HEARTLAB [facility] Narrative Transthoracic Echocardiography Report (TTE) Demographics Patient Name WALTER MCKEON Date of Study 12/10/2017 DOROTEO [id number] Male Visit Number [id number] Room Number C632.2 Number Date of Birth1945Referring Physician Christian Hdz MD Age72 year(s)Back Tender Pulp Drier Randall Oden, Interpreting Cherie Tucker MD Procedure Type [...] Study 12/10/2017 DOROTEO Gender Male Visit Number [id number] Race Room Number C632.2 Number Date of 1945 Referring Physician Christian Hdz MD Age 72 year(s) Back Tender Pulp Drier Randall Mayfield [facility] Conservation Technician Tabby Oden, Interpreting Alfie Pelaez [facility] Physician Procedure Type of Study TTE procedure:2DECHO [...] (>70%) . The LVEF was measured using Campuznao's bi-plane method of disk . High (cardiac [...] 394 ms QTC Calculation(Bazett) 454 ms P Edwards 60 degrees R Edwards -32 degrees T Edwards 75 degrees Normal sinus rhythm Left axis [...] 394 ms QTC Calculation(Bazett) 454 ms P Edwards 60 degrees R Edwards -32 degrees T Edwards 75 degrees Normal sinus rhythm Left axis deviation Nonspecific T wave abnormality Abnormal ECG No previous ECGs available Confirmed by Silvia DUPONT, NESTOR ([id number]) on 12/10/2017 7:41:25 PM Prepare Leuko-Red RBC (12/09/2017 11:18 AM) Component Value Ref Range Unit ABO O Pos UNIT NUMBER [id number] Status RETURNED FROM ISSUE Blood Bank Product RED BLOOD CELLS PRODUCT CODE L6964X41 Unit ABO O Pos UNIT NUMBER [id number] Status RETURNED FROM ISSUE Blood Bank Product RED BLOOD CELLS PRODUCT CODE E7053Z96 Unit ABO O Pos UNIT NUMBER [id number] Status RETURNED FROM ISSUE Blood Bank Product RED BLOOD CELLS PRODUCT CODE D8889E31 Unit ABO O Pos UNIT NUMBER [id number] Status RETURNED FROM ISSUE Blood Bank Product RED BLOOD CELLS PRODUCT CODE F3466T66 CROSSMATCH COMPATIBLE CROSSMATCH COMPATIBLE CROSSMATCH COMPATIBLE CROSSMATCH COMPATIBLE Specimen Performing Laboratory Other [facility] [place] Transesophageal echo (12/09/2017 7:57 AM) Component Value Ref Range Ejection Fraction Specimen Performing Laboratory [facility] ECHO HEARTLAB [facility] Narrative Transesophageal Echocardiography Report (UZAIR) Demographics Patient Name WALTER MCKEON Date of Study 12/09/2017 DOROTEO [id number] Male Visit Number [id number] Room Number C632.2 Number Date of Birth1945Referring Physician Andreina Gonzales MD Age72 year(s)Back Tender Pulp Drier Abiodun Maria Interpreting Sohpia Carmen, Physician Fellow Tiffanie Cohen MD Procedure Type of Study UZAIR procedure:TRANSESOPHAGEAL ECHO Indications:TAVR. 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 . Summary S/p Higgins Denilson [employer] [...] is mild to moderate AI. Mitral Valve Dvzf-ym-txjmpgto MV leaflet thickening. Mild mitral regurgitation. No [...] Study 12/09/2017 DOROTEO Gender Male Visit Number [id number] Race Room Number C632.2 Number Date of 1945 Referring Physician Andreina Gonzales MD Age 72 year(s) Back Tender Pulp Drier Abiodun Maria Interpreting Sophia Carmen, Physician MD Fellow Tiffanie Cohen MD Procedure Type of Study UZAIR procedure:TRANSESOPHAGEAL ECHO Indications:TAVR. 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 . Summary S/p Higgins Denilson [employer] [...] is mild to moderate AI. Mitral Valve Fldo-ql-kmnxvqsb MV leaflet thickening. Mild mitral regurgitation. No stenosis. Tricuspid Valve Mild thickening, , mild to moderate TR in limited views. Pulmonic Valve Not well visualized. Aorta Aortic root size (SInus of Valsalva diameter) is normal . Pericardium No significant pericardial effusion is visualized. IVC/SVC/PA/PV/Pleural Not well visualized. B-type Natriuretic Factor (BNP) (11/26/2017 4:41 PM) Component Value Ref Range BNP 142 (H) 0 - 100 pg/mL Specimen Performing Laboratory [place] [address] CTA chest (11/26/2017 12:56 PM) Specimen Performing Laboratory [employer] Narrative Addendum Begins REPORT STATUS:A Addendum: The images were reviewed with Dr. Hdz. There is a missing dictation, specifically, despite the aortic bypass surgery the agua caliente left common iliac artery is still patent [...] MD Report Verified Date/Time:11/27/2017 11:56:33 Reading Location: [place] [id number] Cardiology MRI Addendum Ends Addendum Begins REPORT [...] MD Report Verified Date/Time:11/26/2017 18:03:42 Reading Location: [facility] P048 Angio Body Reading Room Addendum Ends [...] takeoff of the left renal artery with uzhc-cr-evaodork stenosis identified. Arch vessel branching pattern is [...] and 8.2 mm, respectively with mildtortuosity and bcan-sh-wtpptvjsyrprhaub atherosclerosis present. Right iliac limb is patent. [...] dictated, however, the ordering physician is the [employer] OPER[employer] SERVICES PROGRAM MANAGER of the [facility] and therefore no recommendation would be necessary. [...] 4.An addendum will be dictated by the Agricultural Produce Sorter Radiologist regarding the nonvascular findings. Signed: Juwan Ramirez MD Report Verified Date/Time:11/26/2017 16:25:25 Reading Location: [place] [address] Cardiology MRI Procedure Note Interface, External Ris In - 11/27/2017 11:58 AM CDT Addendum Begins REPORT STATUS:A Addendum: The images were reviewed with Dr. Hdz. There is a missing dictation, specifically, despite the aortic bypass surgery the [place] left common iliac artery is still patent [...] Report Verified Date/Time: 11/27/2017 11:56:33 Reading Location: [place] [address] Cardiology MRI Addendum Ends Addendum Begins REPORT [...] Report Verified Date/Time: 11/26/2017 18:03:42 Reading Location: [facility] P048 Angio Body Reading Room Addendum Ends [...] takeoff of the left renal artery with stta-of-hfxghopk stenosis identified. Arch vessel branching pattern is [...] 8.2 mm, respectively with mild tortuosity and eiun-lp-huepcyua calcific atherosclerosis present. Right iliac limb is [...] dictated, however, the ordering physician is the [employer]GRAM MANAGER of the [facility] and therefore no recommendation would be necessary. [...] An addendum will be dictated by the Agricultural Produce Sorter Radiologist regarding the nonvascular findings. Signed: Juwan Ramirez MD Report Verified Date/Time: 11/26/2017 16:25:25 Reading Location: [place] [address] Cardiology MRI abdomen & pelvis (11/26/2017 12:56 PM) Specimen Performing Laboratory [employer] Addendum Begins REPORT STATUS:A Addendum: The images were reviewed with Dr. Hdz. 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 Arch vessel branching pattern is [...] and 8.2 mm, respectively with mildtortuosity and iopr-pz-bfbveuklxdzaikis atherosclerosis present. Right iliac limb is patent. [...] dictated, however, the ordering physician is the [employer] PROGRAM MANAGER of the [facility] and therefore no recommendation would be necessary. [...] 4.An addendum will be dictated by the Agricultural Produce Sorter Radiologist regarding the nonvascular findings. Signed: Juwan Ramirez MD Report Verified Date/Time:11/26/2017 16:25:25 Reading Location: [place] [address] Cardiology MRI Procedure Note Interface, External Ris In - 11/27/2017 11:58 AM CDT Addendum Begins REPORT STATUS:A Addendum: The images were reviewed with Dr. Hdz. There is a missing dictation, specifically, despite the aortic bypass surgery the [place] left common iliac artery is still patent [...] Report Verified Date/Time: 11/27/2017 11:56:33 Reading Location: [place] [id number] Cardiology MRI Addendum Ends Addendum Begins REPORT [...] Report Verified Date/Time: 11/26/2017 18:03:42 Reading Location: [facility] P048 Angio Body Reading Room Addendum Ends [...] takeoff of the left renal artery with mbnx-wg-bmcbrdhh stenosis identified. Arch vessel branching pattern is [...] 8.2 mm, respectively with mild tortuosity and milo-qs-msgyabrt calcific atherosclerosis present. Right iliac limb is [...] dictated, however, the ordering physician is the [employer] PROGRAM MANAGER of [facility] and therefore no recommendation would be necessary. [...] An addendum will be dictated by the Agricultural Produce Sorter Radiologist regarding the nonvascular findings. Signed: Juwan Ramirez MD Report Verified Date/Time: 11/26/2017 16:25:25 Reading Location: [place] [address] Cardiology MRI -Creatinine (11/26/2017 11:51 AM) Component Value Ref Range POC-Creatinine 1.1Comment: TESTED AT [address] 0.6 - 1.3 mg/dL [address] POC-EGFR 65 mL/min/1.73M2 Specimen Performing Laboratory Blood [facility] [address] [address] after 03/04/2017
--- OUTSIDE RECORDS SUMMARY | 2018-03-05 19:09 | XMS REPORT | Continuity of Care Document ---
:1945 Author Organization Interface Problems Problem Status Onset Classification Date Comments Source Date Reported SARAH Active 05/24/20 [facility] BILLING [address] [place] [address] SDH Active 05/24/[address] AAA (<span Resolved Problem 06/02/2016 [facility] ID="[id number] Medical ">Confirmed</spa Center n>) COPD (<span Resolved Problem 06/02/2016 [facility] ID="[id number] Medical ">Confirmed</spa Center n>) HTN (<span Resolved Problem 06/02/2016 [facility] ID="[id number] Medical ">Confirmed</spa Center n>) Subdural 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/02/2016 [facility] hematoma [facility] Center NONTRAUMATIC Active [facility] SUBDURAL Medical HEMORRHAGE, Center UNSPEC Medications Medication Details Route Status Patient Ordering Order Source Instructions Provider Date Warfarin Sodium 5 mg=1 tab, PO, Active [facility] 5 MG Oral Tablet Daily, INR goal 2015 Medical [Coumadin] 2-3, # 30 tab, 0 Center Refill(s) tamsulosin 0.4 0.8 mg=2 cap, Active 05/30[facility] [place] mg oral capsule PO, Daily, 0 2016 Medical Refill(s) [place] Levetiracetam 1,500 mg=3 tab, Active 05/30[facility] 500 MG Oral PO, [id number], # 2016 Medical Tablet 90 tab, 0 Center Refill(s) Docusate Sodium 100 mg=1 cap, Active 05/30[facility] [place] 100 MG Oral PO, Q12H, # 20 2016 Medical Capsule cap, 0 Refill(s) [place] phenol 1 spray, Route: No Longer 05/30[facility] TOP, TID, Drug Active 2015 Medical form: SPRY, PRN Center Sore Throat, Start date: 05/29/16 22:35:00 CDT, Duration: 30 day, Stop date: 06/28/16 22:34:00 CSTNotes: Chloraseptic [place] (Same as: Chloraseptic, Sore Throat [place]) WASTE: F/P - Black; E - Municipal Trash Bin Coumadin 5 mg, 1 tab, Inactive [place] Route: PO, Drug 2015 Medical form: TAB, ONCE, Center Dosing Weight 76.36, kg, Start date: 05/29/16 21:30:00 CDT, Stop date: 05/29/16 21:30:00 CDT Warfarin 5 mg, 1 tab, Inactive [place] Route: PO, Drug 2015 Medical form: TAB, Q5PM, Center Dosing Weight 76.36, kg, Start date: 05/29/16 17:00:00 CDT, Duration: 1 doses or times, Stop date: 05/29/16 17:00:00 CDT Labetalol 200 mg, 1 tab, No Longer [place] Route: PO, Drug Active 2015 Medical form: TAB, Q8H, Center Dosing Weight 76.36, kg, Start date: 05/29/16 9:44:00 CDT, Duration: 30 day, Stop date: 06/28/16 8:00:00 CSTNotes: With food. (Same as:Trandate, Normodyne) Keppra 1,500 mg, 3 tab, No Longer [place] Route: PO, Drug Active 2015 Medical form: TAB, Center [id number], Start date: 05/29/16 6:00:00 CDT, Duration: 30 day, Stop date: 06/27/16 18:00:00 CSTNotes: (Same as:Keppra) Coumadin 5 mg, 1 tab, Inactive [place] Route: PO, Drug 2015 Medical form: TAB, Q5PM, Center Start date: 05/28/16 17:00:00 CDT, Duration: 1 day, Stop date: 05/28/16 17:00:00 CDTNotes: Nurse to ensure documentation of patient education per anticoagulation policy. Avoid large intake of vitamin-K containing foods diet. WASTE: F/P - P Waste Black; E - P Waste Black (Same As: Coumadin) Clonidine 0.1 mg, 1 tab, No Longer [facility] Hydrochloride Route: PO, Drug Active 2015 Medical 0.1 MG Oral form: TAB, Q12H, Center Tablet Dosing Weight 76.36, kg, Priority: NOW, Start date: 05/28/16 10:30:00 CDT, Duration: 30 day, Stop date: 06/27/16 9:00:00 CSTNotes: (Same As: Catapres) Miralax 17 gm, Route: No Longer [facility] PO, Daily, Active 2015 Medical Dosing Weight Center 76.36, kg, Start date: 05/28/16 9:00:00 CDT, Duration: 30 day, Stop date: 06/26/16 9:00:00 RUG TOUCH UP PAINTER Remeron 7.5 mg, 1 tab, No Longer [place] Route: PO, Drug Active 2015 Medical form: TAB, Center Bedtime, Dosing Weight 76.36, kg, Start date: 05/27/16 21:00:00 CDT, Duration: 30 day, Stop date: 06/25/16 21:00:00 CSTNotes: (Same as:Remeron) ibuprofen 100 600 mg, 30 mL, No Longer [facility] mg/5 mL oral Route: PO, Drug Active 2015 Medical suspension form: SUSP, Q6H, Center Dosing Weight 76.36, kg, Start date: 05/27/16 15:00:00 CDT, Duration: 30 day, Stop date: 06/26/16 12:00:00 CSTNotes: (Same as: Motrin Children's, Advil Children's) Take with food. Duragesic-100 1 patch, Route: No Longer [place] TOP, Drug form: Active 2016 Medical ERFILM, Q48H, Center Start date: 05/27/16 13:00:00 CDT, Duration: 30 day, Stop date: 06/24/16 13:00:00 CSTNotes: (Same as: Duragesic) Check for product integrity. Apply to intact skin "Remove old patch before application of new patch" Ibuprofen 600 mg, 30 mL, Inactive [place] Route: PO, Drug 2015 Medical form: SUSP, Q6H, Center Dosing Weight 76.36, kg, Start date: 05/27/16 12:00:00 CDT, Stop date: 06/26/16 6:00:00 CSTNotes: (Same as: Motrin Children's, Advil Children's) Take with food. 72 HR Fentanyl 1 patch, Route: Inactive [place] 0.1 MG/HR TOP, Dosing 2016 Medical Transdermal Weight 76.36, Center Patch kg, Daily, Start date: 05/27/16 9:00:00 CDT, Duration: 30 day, Stop date: 06/25/16 9:00:00 RUG TOUCH UP PAINTER Lisinopril 40 mg, Route: Inactive [place] PO, Drug form: 2016 Medical TAB, Daily, Center Dosing Weight 76.36, kg, Start date: 05/27/16 9:00:00 CDT, Duration: 30 day, Stop date: 06/25/16 9:00:00 RUG TOUCH UP PAINTER Miralax 17 gm, 1 pkt, No Longer [place] Route: PO, Drug Active 2015 Medical form: PWDR, Center Daily, Dosing Weight 76.36, kg, Start date: 05/27/16 9:00:00 CDT, Duration: 30 day, Stop date: 06/25/16 9:00:00 CSTNotes: Dissolve in 8 oz of water or juice. (Same as: Miralax) remove patch 1 patch, Route: No Longer [facility] TOP, Drug form: Active 2015 Medical ERFILM, Daily, Center Start date: 05/27/16 9:00:00 CDT, Duration: 30 day, Stop date: 06/25/16 9:00:00 CSTNotes: Remove old patch before application of new patch. WASTE: F/P - P Waste Black; E - P Waste Black Keppra 2,000 mg, Route: Inactive [facility] IVPB, ONCE, 2016 Medical Dosing Weight Center 76.36, kg, Loading Dose, Priority: STAT, Start date: 05/27/16 7:25:00 CDT, Duration: 1 doses or times, Stop date: 05/27/16 7:25:00 CDTNotes: Same as Keppra Mix with 100 mL NS, LR or D5W MEDICATION WASTE Product Size: 500 mg Product Wasted: ___ mg Keppra 1,500 mg, Route: No Longer [facility] IVPB, Q12H, Active 2015 Medical Dosing Weight Center 76.36, kg, Start date: 05/27/16 4:00:00 CDT, Duration: 30 day, Stop date: 06/25/16 16:00:00 CSTNotes: Same as Keppra Mix with 100 mL NS, LR or D5W MEDICATION WASTE Product Size: 500 mg Product Wasted: ___ mg Hydralazine 20 mg, 1 mL, No Longer [place] Route: IV, Drug Active 2015 Medical form: INJ, Q4H, Center Dosing Weight 76.36, kg, PRN Hypertension, Start date: 05/27/16 3:23:00 CDT, Duration: 30 day, Stop date: 06/26/16 3:22:00 CSTNotes: (Same as: Apresoline) Push over 5 minutes heparin 5,000 unit, 1 No Longer [place] mL, Route: Active 2015 Medical SUB-Q, Drug Center form: INJ, Q8H, Dosing Weight 76.36, kg, Start date: 05/27/16 0:00:00 CDT, Duration: 30 day, Stop date: 06/25/16 16:00:00 CSTNotes: porcine heparin Fentanyl 25 microgram, No Longer [place] 0.5 mL, Route: Active 2015 Medical IV, Drug form: Center INJ, ONCE, Dosing Weight 76.36, kg, Start date: 05/26/16 23:47:00 CDT, Stop date: 05/26/16 23:47:00 CDTNotes: (Same as: Sublimaze) Preservative free. Lisinopril 40 mg, 2 tab, No Longer [place] Route: PO, Drug Active 2015 Medical form: TAB, Center Daily, Dosing Weight 76.36, kg, Start date: 05/26/16 20:00:00 CDT, Duration: 30 day, Stop date: 06/25/16 9:00:00 CSTNotes: (Same as: Prinivil, Zestril) Fentanyl 25 microgram, Inactive [place] 0.5 mL, Route: 2016 Medical IV, Drug form: Center INJ, ONCE, Dosing Weight 76.36, kg, Start date: 05/26/16 19:51:00 CDT, Stop date: 05/26/16 19:51:00 CDTNotes: (Same as: Sublimaze) Preservative free. pneumococcal 0.5 mL, Route: Inactive [place] 13-valent IM, Drug Form: 2016 Medical vaccine INJ, Daily, Center Start date: 05/26/16 19:50:00 CDT, Duration: 1 doses or times, Stop date: 05/26/16 19:50:00 CDTNotes: Lightly roll vial (DO NOT SHAKE) before administration. (Same as: Prevnar 13) Albuterol 0.833 3 mL, Route: No Longer [place] MG/ML / NEB, Drug Form: Active 2016 Medical Ipratropium SOLN, Dosing Center [place] 0.167 Weight 76.36, MG/ML Inhalant kg, Q4H, PRN Solution Respiratory [DuoNeb] Protocol, Start date: 05/26/16 16:26:00 CDT, Duration: 30 day, Stop date: 06/25/16 16:25:00 CSTNotes: (Same as: Duoneb) mirtazapine 7.5 7.5 mg=1 tab, Active [place] mg oral tablet PO, Bedtime, # 2016 Medical 30 tab, 1 Center Refill(s) Eszopiclone 1 MG 1 mg=1 tab, PO, Active [place] Oral Tablet Bedtime, PRN for 2016 Medical [Lunesta] insomnia, # 30 Center tab, 0 Refill(s) Trazodone 50 mg=1 tab, PO, No Longer [place] Hydrochloride 50 TID, # 90 tab, 0 Active 2016 Medical MG Oral Tablet Refill(s) Center Acetaminophen 1 tab, PO, TID, Active [place] 325 MG / PRN Pain, # 60 2016 Medical Hydrocodone tab, 0 Refill(s) Center Bitartrate 10 MG Oral Tablet [Altair ] lisinopril 40 mg 40 mg=1 tab, PO, Active [place] oral tablet Daily, 0 2016 Medical Refill(s) Center 12 HR Clonidine 0.1 mg=1 tab, Active [place] Hydrochloride PO, Bedtime, # 2016 Medical 0.1 MG Extended 30 tab, 0 Center Release Tablet Refill(s) 72 HR Fentanyl 1 patch, TOP, Active [place] 0.1 MG/HR Q48H, # 15 2016 Medical Transdermal patch, 0 [place] Patch Refill(s) [Duragesic] Warfarin Sodium 4 mg=1 tab, PO, No Longer [place] 4 MG Oral Tablet Daily, # 30 tab, Active 2016 Medical [Coumadin] 0 Refill(s) [place] Breo Ellipta 100 1 puff, Active [place] mcg-25 mcg INHALATION, 2016 Medical inhalation Daily, 0 [place] powder Refill(s) Vitamin B12 100 100 microgram=1 Active [place] mcg oral tablet tab, PO, Daily, 2016 Medical # 30 tab, 0 Center Refill(s) primidone 50 mg 50 mg=1 tab, PO, Active [facility] oral tablet BID, # 60 tab, 0 2016 Medical Refill(s) [place] tizanidine 4 MG 8 mg=2 tab, PO, Active [facility] Oral Tablet Q8H, # 180 tab, 2016 Medical [Zanaflex] 0 Refill(s) [place] Aspirin 81 MG 81 mg=1 tab, PO, No Longer [place] Enteric Coated Daily, # 90 tab, Active 2015 Medical Tablet 3 Refill(s) [place] Vitamin D3 400 400 IntlUnit=1 Active [place] intl units oral cap, PO, Daily, 2016 Medical capsule 0 Refill(s) [place] 200 ACTUAT 2 puff, INHALER, Active [place] Albuterol 0.09 Q6H, PRN for 2016 Medical MG/ACTUAT wheezing, # 8.5 Center Metered Dose gm, 0 Refill(s) Inhaler [ProAir HFA] Keppra 1,000 mg, Route: Inactive [place] IV, ONCE, Dosing 2016 Medical Weight 76.36, Center kg, Priority: STAT, Start date: 05/26/16 12:59:00 CDT, Stop date: 05/26/16 12:59:00 CDTNotes: Same as Keppra Mix with 100 mL NS, LR or D5W MEDICATION WASTE Product Size: 500 mg Product Wasted: ___ mg Hydralazine 10 mg, 0.5 mL, No Longer [place] Route: IV, Drug Active 2015 Medical form: INJ, Q6H, Center Dosing Weight 76.36, kg, PRN Hypertension, Priority: NOW, Start date: 05/26/16 10:14:00 CDT, Duration: 30 day, Stop date: 06/25/16 10:13:00 CSTNotes: (Same as: Apresoline) Push over 5 minutes Nicotine 14 mg, 1 patch, No Longer [place] Route: TOP, Drug Active 2015 Medical form: ERFILM, Center Daily, Dosing Weight 76.36, kg, Start date: 05/26/16 9:00:00 CDT, Duration: 30 day, Stop date: 06/24/16 9:00:00 CSTNotes: (Same as: Habitrol) "Remove old patch before application of new patch" WASTE: F/P - P Waste Black; E - P Waste Black Keppra + sodium 500 mg, Route: Inactive [place] chloride 0.9% IVPB, ONCE, 2016 Medical INJ 100 mL Start date: Center 05/26/16 1:57:00 CDT, Stop date: 05/26/16 1:57:00 CDTNotes: Same as Keppra Mix with 100 mL NS, LR or D5W MEDICATION WASTE Product Size: 500 mg Product Wasted: __0_ mg Keppra 500 mg, Route: Inactive [place] IVPB, Q24H, 2016 Medical Dosing Weight Center 76.36, kg, Priority: STAT, Start date: 05/26/16 1:28:00 CDT, Duration: 30 day, Stop date: 06/24/16 1:28:00 RUG TOUCH UP PAINTER sodium chloride 1,000 mL, Rate: No Longer [place] 0.9% 1000 ml INJ 50 ml/hr, Infuse Active 2016 Medical 1,000 mL over: 20 hr, Center Route: IV, Dosing Weight 76.36 kg, Total Volume: 1,000, Start date: 05/25/16 21:30:00 CDT, Duration: 30 day, Stop date: 06/24/16 21:29:00 RUG TOUCH UP PAINTER Acetaminophen 1 tab, Route: No Longer [place] 325 MG / PO, Drug Form: Active 2016 Medical Hydrocodone TAB, Dosing Center Bitartrate 5 MG Weight 76.36, Oral Tablet kg, Q4H, PRN [Altair 5/325] Pain Score 6-10, Start date: 05/25/16 20:00:00 CDT, Stop date: 06/24/16 16:00:00 CSTNotes: (Same as: Altair 325/5) Do not exceed 4gm/day of acetaminophen. Tylenol 650 mg, 2 tab, No Longer [place] Route: PO, Drug Active 2015 Medical form: TAB, Q4H, Center Dosing Weight 76.36, kg, PRN Pain 1-3/Temp > 100.4 F, Start date: 05/25/16 19:38:00 CDT, Duration: 30 day, Stop date: 06/24/16 19:37:00 CSTNotes: Do not exceed 4 gm/day. (Same as: Tylenol) Albuterol 0.83 2.49 mg, 3 mL, Inactive [place] MG/ML Inhalant Route: NEB, Drug 2015 Medical Solution form: SOLN, Center Q20Min, Dosing Weight 76.36, kg, PRN Wheezing, Priority: STAT, Start date: 05/25/16 16:04:00 CDT, Stop date: 05/26/16 0:00:00 CDTNotes: SEE RT DOCUMENTATION (Same as: Proventil) Ancef + sodium 2 gm, Route: No Longer [place] chloride 0.9% IVPB, ABXQ8H, Active 2015 Medical INJ 100 mL Dosing Weight Center 76.36, kg, Start date: 05/25/16 16:00:00 CDT, Stop date: 05/26/16 15:35:00 CDTNotes: (Same As: Ancef, Kefzol) MEDICATION WASTE Product Size: 1000 mg Product Wasted: ___ mg Ondansetron 4 mg, 2 mL, Inactive [place] Route: IVP, Drug 2015 Medical form: INJ, ONCE, Center Dosing Weight 76.36, kg, PRN Nausea & Vomiting, Start date: 05/25/16 15:57:00 CDTNotes: (Same as: Zofran) MEDICATION WASTE Product Size: 4 mg Product Wasted: ___ mg Hydromorphone 0.5 mg, 0.25 mL, Inactive [place] Route: IVP, Drug 2015 Medical form: INJ, Center Q5Min, Dosing Weight 76.36, kg, PRN Pain Score 7-10, Start date: 05/25/16 15:57:00 CDT, Duration: 4 doses or times, Stop date: 05/26/16 0:00:00 CDTNotes: (Same as: Dilaudid) Naloxone 0.4 mg, 1 mL, Inactive [place] Route: IVP, Drug 2015 Medical form: INJ, Center Q2MIN, Dosing Weight 76.36, kg, PRN Narcotic Reversal, Start date: 05/25/16 15:57:00 CDT, Duration: 8 doses or times, Stop date: 05/26/16 0:00:00 CDTNotes: Same as Narcan Flumazenil 0.2 mg, 2 mL, Inactive [place] Route: IVP, Drug 2015 Medical form: INJ, PRN, Center Dosing Weight 76.36, kg, PRN Benzodiazepine Reversal, Initial dose, Start date: 05/25/16 15:57:00 CDT, Stop date: 05/26/16 0:00:00 CDTNotes: (Same as: Romazicon) Labetalol 10 mg, 2 mL, Inactive [place] Route: IVP, Drug 2015 Medical form: INJ, Center Q5Min, Dosing Weight 76.36, kg, PRN Elevated BP, Start date: 05/25/16 15:57:00 CDT, Duration: 5 doses or times, Stop date: 05/26/16 0:00:00 CDT Metoprolol 1 mg, 1 mL, Inactive [place] Route: IVP, Drug 2015 Medical form: INJ, Center Q5Min, Dosing Weight 76.36, kg, PRN Other -See Comment, Start date: 05/25/16 15:57:00 CDT, Duration: 5 doses or times, Stop date: 05/26/16 0:00:00 CDTNotes: (Same as: Lopressor) Push over 2 minutes Sodium Chloride 1,000 mL, Rate: Inactive [place] 0.154 MEQ/ML 125 ml/hr, 2016 Medical Injectable Infuse over: 8 Center Solution hr, Route: IV, Dosing Weight 76.36 kg, Total Volume: 1,000, Start date: 05/25/16 15:57:00 CDT, Duration: 30 day, Stop date: 06/24/16 15:56:00 RUG TOUCH UP PAINTER Ancef 2 gm, Route: Inactive [place] IVPB, ONCE, 2016 Medical Dosing Weight Center 76.36, kg, Start date: 05/25/16 14:15:00 CDT, Duration: 1 doses or times, Stop date: 05/25/16 14:15:00 CDT Streptococcus 0.5 mL, Route: Inactive [place] pneumoniae IM, Drug Form: 2016 Medical serotype 1 INJ, Daily, Center capsular antigen Start date: diphtheria 05/25/16 9:00:00 [id number] protein CDT, Duration: 1 conjugate doses or times, vaccine / Stop date: Streptococcus 05/25/16 9:00:00 pneumoniae CDTNotes: serotype 14 Lightly roll capsular antigen vial (DO NOT diphtheria SHAKE) before [id number] protein administration. conjugate (Same as: vaccine / Prevnar 13) Streptococcus pneumoniae serotype 18C capsular antigen d Vitamin K1 + 10 mg, 1 mL, No Longer [place] sodium chloride Route: IVPB, Active 2015 Medical 0.9% INJ 50 mL Daily, Dosing Center Weight 76.36, kg, Start date: 05/25/16 9:00:00 CDT, Duration: 3 doses or times, Stop date: 05/27/16 9:00:00 CDTNotes: (Same as: Aqua-Mephyton, Vitamin K) MEDICATION WASTE Product Size: 10 mg Product Wasted: ___ mg Saline Flush 10 ml, Route: No Longer [place] 0.9% IVP, Drug Form: Active 2015 Medical INJ, Dosing Center Weight 76.364, kg, Q12H, Start date: 05/25/16 9:00:00 CDT, Duration: 30 day, Stop date: 06/23/16 21:00:00 CSTNotes: (Same as: BD Posiflush) Levetiracetam 1,500 mg, 3 tab, No Longer [place] Route: PO, Drug Active 2015 Medical form: TAB, Q12H, Center Dosing Weight 76.364, kg, Start date: 05/25/16 9:00:00 CDT, Stop date: 06/23/16 21:00:00 CSTNotes: (Same as:Kathryn) Docusate 100 mg, 1 cap, No Longer [place] Route: PO, Drug Active 2015 Medical form: CAP, Q12H, Center Dosing Weight 76.364, kg, Start date: 05/25/16 9:00:00 CDT, Duration: 30 day, Stop date: 06/23/16 21:00:00 CSTNotes: (Same as: Colace) (Do Not Crush) sennosides, [place] 8.6 mg, 1 tab, No Longer [place] Route: PO, Drug Active 2015 Medical Form: TAB, Center Dosing Weight 76.364, kg, Q12H, Start date: 05/25/16 9:00:00 CDT, Duration: 30 day, Stop date: 06/23/16 21:00:00 CSTNotes: (Same as: [place]) Flomax 0.8 mg, 2 cap, No Longer [place] Route: PO, Drug Active 2015 Medical form: CAP, Center Daily, Dosing Weight 76.36, kg, Priority: NOW, Start date: 05/25/16 6:11:00 CDT, Duration: 30 day, Stop date: 06/23/16 9:00:00 CSTNotes: (Same As: Flomax) "Do Not Crush" Dexamethasone 6 mg, 1.5 mL, Inactive [place] Route: IV, Drug 2015 Medical form: INJ, ONCE, Center Dosing Weight 76.36, kg, Priority: NOW, Start date: 05/25/16 5:39:00 CDT, Stop date: 05/25/16 5:39:00 CDTNotes: Concentration: 4mg/ml Mannitol 100 gm, 500 mL, Inactive [place] Route: IVPB, 2015 Medical Drug form: INJ, Center ONCE, Dosing Weight 76.36, kg, Priority: NOW, Start date: 05/25/16 5:16:00 CDT, Stop date: 05/25/16 5:16:00 CDTNotes: (Same as: Osmitrol) Infuse through 5 micron or smaller filter WASTE: F/P - Sink; E - Municipal Trash Bin Vitamin K1 + 10 mg, 1 mL, Inactive [place] sodium chloride Route: IVPB, 2015 Medical 0.9% INJ 50 mL ONCE, Dosing Center Weight 76.364, kg, Priority: NOW, Start date: 05/25/16 0:23:00 CDT, Stop date: 05/25/16 0:23:00 CDTNotes: (Same as: Aqua-Mephyton, Vitamin K) MEDICATION WASTE Product Size: 10 mg Product Wasted: ___ mg Magnesium Oxide 800 mg, 2 tab, No Longer [place] Route: PO, Drug Active 2015 Medical form: TAB, PRN, Center Dosing Weight 76.364, kg, PRN Abnormal Lab Result, FOR ICU USE ONLY, Start date: 05/24/16 23:11:00 CDT, Duration: 30 day, Stop date: 06/23/16 22:10:00 CSTNotes: (Same as: Mag-Ox 400) Magnesium oxide [id number] elemental magnesium Dose=____mg magnesium oxide (___mg elemental magnesium) Magnesium 2 gm, 50 mL, No Longer [place] Sulfate Route: IVPB, Active 2015 Medical Drug form: INJ, Center PRN, Dosing Weight 76.364, kg, PRN Abnormal Lab Result, Start date: 05/24/16 23:11:00 CDT, Duration: 30 day, Stop date: 06/23/16 22:10:00 RUG TOUCH UP PAINTER, FOR ICU USE ONLYNotes: WASTE: F/P - Sink; E - Municipal Trash Bin Calcium 500 mg, 1 tab, No Longer [place] Carbonate 500 MG Route: PO, Drug Active 2015 Medical Chewable Tablet form: CHEWTAB, Center PRN, Dosing Weight 76.364, kg, PRN Abnormal Lab Result, FOR ICU USE ONLY, Start date: 05/24/16 23:11:00 CDT, Duration: 30 day, Stop date: 06/23/16 22:10:00 CSTNotes: (Same As: Tums) Calcium Carbonate 500 vo=294 mg elemental calcium Dose= mg calcium carbonate ( mg elemental calcium) Calcium 1 gm, 10 mL, No Longer [place] Gluconate Route: IVPB, Active 2015 Medical PRN, Dosing Center Weight 76.364, kg, PRN Abnormal Lab Result, Start date: 05/24/16 23:11:00 CDT, Duration: 30 day, Stop date: 06/23/16 22:10:00 RUG TOUCH UP PAINTER, FOR ICU USE ONLYNotes: WASTE: F/P - Sink; E - Municipal Trash Bin potassium 2 pkt, Route: No Longer [place] phosphate-sodium PO, Drug Form: Active 2015 Medical phosphate 250 PDR/REC, Dosing Center mg-280 mg-160 mg Weight 76.364, oral powder for kg, PRN, PRN reconstitution Abnormal Lab Result, FOR ICU USE ONLY, Start date: 05/24/16 23:11:00 CDT, Duration: 30 day, Stop date: 06/23/16 22:10:00 CSTNotes: (Same as: Phos-NaK) Each 1.5 gm pkt has 250mg phosphorous. Mix w/2.5oz water and stir. potassium 30 mmol, 10 mL, No Longer [place] phosphate + Route: IVPB, Active 2015 Medical sodium chloride PRN, Dosing Center 0.9% INJ 250 mL Weight 76.364, kg, PRN Abnormal Lab Result, Start date: 05/24/16 23:11:00 CDT, Duration: 30 day, Stop date: 06/23/16 22:10:00 RUG TOUCH UP PAINTER, FOR ICU USE ONLYNotes: (Same as: K Phosphate.) 1 mMol phoshate has 1.47 mEq potassium Infuse over 4 hours sodium phosphate 45 mmol, 15 mL, No Longer [place] + sodium Route: IVPB, Active 2015 Medical chloride 0.9% PRN, Dosing Center INJ 250 mL Weight 76.364, kg, PRN Abnormal Lab Result, Start date: 05/24/16 23:11:00 CDT, Duration: 30 day, Stop date: 06/23/16 22:10:00 RUG TOUCH UP PAINTER, FOR ICU USE ONLY potassium 10 mEq, 50 mL, No Longer [place] chloride Route: IVPB, Active 2015 Medical Drug form: INJ, Center PRN, Dosing Weight 76.364, kg, PRN Abnormal Lab Result, Via peripheral line, Start date: 05/24/16 23:11:00 CDT, Duration: 30 day, Stop date: 06/23/16 22:10:00 RUG TOUCH UP PAINTER, FOR ICU USE ONLYNotes: (Same as: KCL) Infuse over 2 hours. iodixanol 60 mL, Route: Inactive [place] IVP, Drug Form: 2015 Medical SOLN, Dosing Center Weight 76.364, kg, ONCALL, STAT, Start date: 05/24/16 22:50:00 CDT, Duration: 1 doses or times, Dose=2.2ml/kg, Max [id number]=[id number] -- "To be infused by Radiology Staff ONLY" Regular Insulin, 7 unit, 0.07 mL, No Longer [facility] Human 100 UNT/ML Route: SUB-Q, Active 2015 Medical Injectable Drug form: SOLN, Center Solution PRN, Dosing Weight 76.364, kg, PRN Abnormal Lab Result, Start date: 05/24/16 22:17:00 CDT, Duration: 30 day, Stop date: 06/23/16 21:16:00 CSTNotes: (Same as: Humulin R) Roll in palms of hands gently; Do not shake vigorously. "single patient use only" (Restricted to patients requiring a dose > 60 units) WASTE: F/P - Black; E - GLIIF Trash Bin Stable for 28 days at room temperature Expires in days from Da te Dextrose 50% 6.25 gm, 12.5 No Longer [place] Syringe mL, Route: IVP, Active 2015 Medical Drug Form: INJ, Center Dosing Weight 76.364, kg, PRN, PRN Abnormal Lab Result, Start date: 05/24/16 22:17:00 CDT, Duration: 30 day, Stop date: 06/23/16 21:16:00 RUG TOUCH UP PAINTER Saline Flush 10 ml, Route: No Longer [facility] 0.9% IVP, Drug Form: Active 2015 Medical INJ, Dosing Center Weight 76.364, kg, PRN, PRN Line Flush, Start date: 05/24/16 22:17:00 CDT, Duration: 30 day, Stop date: 06/23/16 21:16:00 CSTNotes: (Same as: BD Posiflush) Bisacodyl 10 mg, 1 supp, No Longer [place] Route: LA, Drug Active 2015 Medical form: SUPP, Center Daily, Dosing Weight 76.364, kg, PRN Constipation, Start date: 05/24/16 22:17:00 CDT, Duration: 30 day, Stop date: 06/23/16 22:16:00 CSTNotes: (Same As: Dulcolax, Bisco-Lax) Ondansetron 4 mg, 2 mL, No Longer [place] Route: IVP, Drug Active 2015 Medical form: INJ, Q8H, Center Dosing Weight 76.364, kg, PRN Nausea & Vomiting, Start date: 05/24/16 22:17:00 CDT, Duration: 30 day, Stop date: 06/23/16 22:16:00 CSTNotes: (Same as: Zofran) MEDICATION WASTE Product Size: 4 mg Product Wasted: _0__ mg Acetaminophen 1 tab, Route: No Longer [place] 325 MG / PO, Drug Form: Active 2015 Medical Hydrocodone TAB, Dosing Center Bitartrate 10 MG Weight 76.364, Oral Tablet kg, Q4H, PRN Pain Score 4-6, Start date: 05/24/16 22:17:00 CDT, Duration: 30 day, Stop date: 06/23/16 22:16:00 CSTNotes: Do not exceed 4gm/day of acetaminophen. (Same as: Altair 325/10) Levetiracetam 1,000 mg, Route: No Longer [place] IVPB, Drug form: Active 2016 Medical INJ, ONCE, Center Dosing Weight 76.364, kg, Start date: 05/24/16 22:17:00 CDT, Stop date: 05/24/16 22:17:00 CDTNotes: Same as Keppra Mix with 100 mL NS, LR or D5W MEDICATION WASTE Product Size: 500 mg Product Wasted: __0_ mg Sodium Chloride 1,000 mL, Rate: No Longer [place] 0.154 MEQ/ML 75 ml/hr, Infuse Active 2015 Medical Injectable over: 13.3 hr, Center Solution Route: IV, Dosing Weight 76.364 kg, Total Volume: 1,000, Start date: 05/24/16 22:17:00 CDT, Duration: 30 day, Stop date: 06/23/16 22:16:00 RUG TOUCH UP PAINTER Acetaminophen 1 tab, Route: No Longer [place] 325 MG / PO, Drug Form: Active 2015 [facility] Hydrocodone TAB, Dosing Center Bitartrate 5 MG Weight 76.364, Oral Tablet kg, Q4H, PRN Pain Score 1-3, Start date: 05/24/16 22:17:00 CDT, Duration: 30 day, Stop date: 06/23/16 22:16:00 CSTNotes: (Same as: [place] 325/5) Do not exceed 4gm/day of acetaminophen. Saline Flush 10 mL, Route: No Longer [place] 0.9% IVP, Drug Form: Active 2015 [facility] INJ, Dosing Center Weight 76.364, kg, PRN, PRN Line Flush, Start date: 05/24/16 20:56:00 CDT, Duration: 30 day, Stop date: 06/23/16 19:55:00 CSTNotes: (Same as: BD Posiflush) Allergies, Adverse Reactions, Alerts Substance Category Reaction Severity Reaction Status Date Comments Source type Reported NKDA Assertion Drug Active [facility] Immunizations Immunization Date Site Status Last Updated Comments Source Given pneumococcal Right completed Aigbedion [facility] 13-valent 6 Deltoid Medical vaccine Center Results Order Name Results Value Reference Date Interpretation Comments Source Range HEMATOLOGY INR 1.08 0.85 - 05/30 [facility] 1. [facility] HEMATOLOGY PT 14.2 s 12.0 - 05/30 [facility] 14.7 [facility] HEMATOLOGY INR 1.09 0.85 - 05/28 [facility] 1. [facility] HEMATOLOGY PTT 27.7 s 22.9 - 05/28 [place] 35.8 /2015 [facility] HEMATOLOGY PT 14.3 s 12.0 - 05/28 [facility] 14. [facility] HEMATOLOGY Platelet 287 K/CMM 133 - 450 05/28 [facility] HEMATOLOGY MPV 8.4 fL 7.4 - 10.4 05/28 [facility] HEMATOLOGY MCHC 33.3 g/dL 32.0 - 1019 [place] 36.0 [facility] HEMATOLOGY Hgb 11.6 g/dL 14.0 - 05/28 [place] 18.0 [facility] HEMATOLOGY MCH 29.6 pg 27.0 - 05/28 [place] 31.0 [facility] HEMATOLOGY RDW 15.0 % 11.5 - 05/28 [place] 14.5 [facility] HEMATOLOGY MCV 88.9 fL 80.0 - 05/28 [place] 94.0 [facility] HEMATOLOGY Hct 35.0 % 42.0 - 05/28 [place] 54.0 [facility] HEMATOLOGY RBC 3.94 M/CMM 4.70 - 05/28 [place] 6.10 [facility] HEMATOLOGY WBC 11.4 K/CMM 3.7 - 10.4 05/28 [facility] HEMATOLOGY Monocytes # 1.3 K/CMM 0.0 - 0.8 05/28 /2015 [facility] HEMATOLOGY Segs-Bands # 8.9 K/CMM 1.5 - 8.1 05/28 [facility] HEMATOLOGY Lymphocytes 1.2 K/CMM 1.0 - 5.5 05/28 [place] # /2015 [facility] HEMATOLOGY Basophils # 0.1 K/CMM 0.0 - 0.2 05/28 [facility] HEMATOLOGY Eosinophils 0.1 % 0.0 - 4.0 05/28 [facility] HEMATOLOGY Basophils 0.5 % 0.0 - 1.0 05/28 [facility] HEMATOLOGY Monocytes 11.5 % 2.0 - 12.0 05/28 [facility] HEMATOLOGY Segs 77.6 % 45.0 - 05/28 [place] 75.0 [facility] HEMATOLOGY Lymphocytes 10.3 % 20.0 - 05/28 [place] 40.0 2016 [facility] CHEM PANEL eGFR 89 05/27 Result Comment: The eGFR is calculated using the CKD-EPI formula. In most young, healthy individuals the eGFR will be >90 mL/ min/1.73m2. The eGFR declines with age. An eGFR of 60-89 may be normal in [facility] mL/min/1.73 /2015 some populations, particularly the elderly, for whom the CKD-EPI formula has not been extensively validated. Use of the eGFR is not recommended in the following populations: [address] Individuals with unstable creatinine concentrations, including patients and those with serious co-morbid conditions. Patients with extremes in muscle mass or diet. The data above are obtained from the National Kidney Disease Education Program (NKDEP) which additionally recommends that when the eGFR is used in patients with extremes of body mass index for purposes of drug dosing, the eGFR should be multiplied by the estimated BMI. CHEM PANEL Glucose Lvl 104 mg/dL 70 - 99 05/27 [facility] CHEM PANEL Creatinine 0.80 mg/dL 0.50 - 05/27 [facility] Lvl 1.40 [facility] CHEM PANEL BUN 9 mg/dL 7 - 22 05/27 [facility] CHEM PANEL Sodium Lvl 137 meq/L 135 - 145 05/27 [facility] CHEM PANEL Potassium 3.9 meq/L 3.5 - 5.1 05/27 [facility] Comment: [facility] Slightly Hemolyzed. CHEM PANEL CO2 22 meq/L 24 - 32 05/27 [facility] CHEM PANEL Chloride Lvl 100 meq/L 95 - 109 05/27 [facility] CHEM PANEL Calcium Lvl 8.0 mg/dL 8.5 - 10.5 05/27 [facility] CHEM PANEL AGAP 18.9 meq/L 10.0 - 05/27 [facility] 20.0 [facility] CHEM PANEL Phosphorus 2.3 mg/dL 2.5 - 4.5 05/27 [facility] CHEM PANEL Magnesium 1.7 mg/dL 1.8 - 2.4 05/27 [facility] l [facility] HEMATOLOGY Monocytes 7.2 % 2.0 - 12.0 05/27 [facility] HEMATOLOGY Lymphocytes 7.5 % 20.0 - 05/27 [place] 40.0 [facility] HEMATOLOGY Segs 85.1 % 45.0 - 05/27 [place] 75.0 [facility] HEMATOLOGY Segs-Bands # 9.0 K/CMM 1.5 - 8.1 05/27 [facility] HEMATOLOGY Basophils 0.2 % 0.0 - 1.0 05/27 [facility] HEMATOLOGY Monocytes # 0.8 K/CMM 0.0 - 0.8 05/27 [facility] HEMATOLOGY Lymphocytes 0.8 K/CMM 1.0 - 5.5 05/27 [place] # /2015 [facility] HEMATOLOGY MCV 88.5 fL 80.0 - 05/27 [place] 94.0 [facility] HEMATOLOGY Hct 31.9 % 42.0 - 05/27 [place] 54.0 [facility] HEMATOLOGY Hgb 11.0 g/dL 14.0 - 05/27 [place] 18.0 [facility] HEMATOLOGY RBC 3.61 M/CMM 4.70 - 05/27 [place] 6.10 [facility] HEMATOLOGY MCH 30.6 pg 27.0 - 05/27 [place] 31.0 [facility] HEMATOLOGY WBC 10.6 K/CMM 3.7 - 10.4 05/27 [facility] HEMATOLOGY Platelet 205 K/CMM 133 - 450 05/27 [facility] HEMATOLOGY RDW 14.7 % 11.5 - 05/27 [place] 14.5 [facility] HEMATOLOGY MCHC 34.6 g/dL 32.0 - 05/27 [place] 36.0 [facility] HEMATOLOGY MPV 9.3 fL 7.4 - 10.4 05/27 [facility] PARATHYROID Ca Norm WB 0.99 mMol/L 1.05 - 05/27 [place] PROFILE 1.25 [facility] PARATHYROID Ca Ion WB 1.02 mMol/L 1.05 - 05/27 [facility] PROFILE 1. [facility] Brain wo Brain wo EXAM: CT BRAIN WITHOUT CONTRAST 05/27 - [facility] contrast CT contrast CT /2015 - [facility] This report was dictated by a Box Storage Worker/Fellow. I have personally reviewed the images as Center well as the Resident's interpretation and agree with the findings. DATE: 05/27/2016 6:42 AM CDT Read by: Gucci Ramirez MD Resident: Gucci Ramirez MD Dictated Date/time: 05/27/16 09:25 Electronically Signed by: Courtney Chapman 05/27/16 13:44 FINAL REPORT INDICATION: Altered level of consciousness COMPARISON: 05/25/2016 at 2343 TECHNIQUE: Routine axial CT images of the brain were obtained. DLP: 1174 mGy-cm FINDINGS: Right parietal convexity dual zane holes from subdural hematoma evacuation. Extra-axial drain remains in place without change in positioning. No change in the persistent subdural blood products with scattered foci of pneumocephalus. The right convexity sulci remain mildly effaced The chapman-white matter differentiation is maintained. The brain parenchyma is normal. No new hemorrhage or edema. Mild bilateral maxillary sinus mucosal thickening. IMPRESSION: Stable postoperative changes after right convexity subdural hematoma evacuation. CARDIAC Troponin-T <0.010 0.000 - 05/26 [facility] ENZYMES ng/mL 0.100 [facility] CARDIAC Troponin-I null 0.00 - 05/26 [facility] ENZYMES 0.40 [facility] CARDIAC Total CK 50 unit/L 12 - 191 05/26 [facility] ENZYMES [facility] CHEM PANEL Magnesium 2.1 mg/dL 1.8 - 2.4 05/26 [facility] Lvl [facility] CHEM PANEL eGFR 88 05/26 Result Comment: The eGFR is calculated using the CKD-EPI formula. In most young, healthy individuals the eGFR will be >90 mL/ min/1.73m2. The eGFR declines with age. An eGFR of 60-89 may be normal in [facility] mL/min/1.73 some populations, particularly the elderly, for whom the CKD-EPI formula has not been extensively validated. Use of the eGFR is not recommended in the following populations: [place] [address] Center Individuals with unstable creatinine concentrations, including patients and those with serious co-morbid conditions. Patients with extremes in muscle mass or diet. The data above are obtained from the National Kidney Disease Education Program (NKDEP) which additionally recommends that when the eGFR is used in patients with extremes of body mass index for purposes of drug dosing, the eGFR should be multiplied by the estimated BMI. CHEM PANEL CO2 23 meq/L 24 - 32 05/26 [facility] CHEM PANEL Chloride Lvl 100 meq/L 95 - 109 05/26 [facility] CHEM PANEL Calcium Lvl 7.8 mg/dL 8.5 - 10.5 05/26 [facility] CHEM PANEL AGAP 16.2 meq/L 10.0 - 05/26 [facility] 20.0 [facility] CHEM PANEL Sodium Lvl 135 meq/L 135 - 145 05/26 [facility] CHEM PANEL Glucose Lvl 78 mg/dL 70 - 99 05/26 [facility] CHEM PANEL BUN 9 mg/dL 7 - 22 05/26 [facility] CHEM PANEL Potassium 4.2 meq/L 3.5 - 5.1 05/26 [facility] Lvl /2015 [facility] CHEM PANEL Creatinine 0.81 mg/dL 0.50 - 05/26 [facility] Lvl 1.40 [facility] CHEM PANEL Phosphorus 3.3 mg/dL 2.5 - 4.5 05/26 [facility] HEMATOLOGY MCHC 34.6 g/dL 32.0 - 05/26 [place] 36.0 [facility] HEMATOLOGY RDW 14.1 % 11.5 - 05/26 [place] 14.5 [facility] HEMATOLOGY RBC 3.69 M/CMM 4.70 - 05/26 [place] 6.10 [facility] HEMATOLOGY WBC 10.1 K/CMM 3.7 - 10.4 05/26 [facility] HEMATOLOGY MPV 9.0 fL 7.4 - 10.4 05/26 [facility] HEMATOLOGY Platelet 234 K/CMM 133 - 450 05/26 [facility] HEMATOLOGY MCH 30.3 pg 27.0 - 05/26 [place] 31.0 [facility] HEMATOLOGY MCV 87.7 fL 80.0 - 05/26 [place] 94.0 [facility] HEMATOLOGY Hct 32.4 % 42.0 - 05/26 [place] 54.0 [facility] HEMATOLOGY Hgb 11.2 g/dL 14.0 - 05/26 [place] 18.0 [facility] HEMATOLOGY Ly30 0.2 % 0.0 - 7.5 05/26 [facility] HEMATOLOGY TEG Data See Note 05/26 [facility] (05/26/16 12:43 AM) [place] HEMATOLOGY G-value 15.5 K d/sc 4.5 - 11.0 05/26 [facility] HEMATOLOGY Max Amp 75.6 mm 50.0 - 05/26 [place] 70.0 [facility] HEMATOLOGY Coag Index 5.3 -3.0-3.0 - 05/26 [place] 3.0 [facility] HEMATOLOGY K-time 0.8 min 1.0 - 3.0 05/26 [facility] HEMATOLOGY Angle 78.6 53.0 - 05/26 [place] degrees 72.0 [facility] HEMATOLOGY R-time 2.8 min 5.0 - 10.0 05/26 [facility] HEMATOLOGY TEG Interp Thrombelast 05/26 [facility] ograph [facility] show shortened value of R and increased values of both Angle Alpha and MA. These findings are suggestive of platelet and enzymatic hypercoagul ation which may be seen in early phase of DIC. Monitor for DIC with DIC panel may be indicated.C [id number] HEMATOLOGY Monocytes 10.1 % 2.0 - 12.0 05/26 [facility] HEMATOLOGY Lymphocytes 13.2 % 20.0 - 05/26 [place] 40.0 [facility] HEMATOLOGY Segs-Bands # 7.7 K/CMM 1.5 - 8.1 05/26 [facility] HEMATOLOGY Basophils 0.4 % 0.0 - 1.0 05/26 [facility] HEMATOLOGY Eosinophils 0.1 % 0.0 - 4.0 05/26 [facility] HEMATOLOGY Monocytes # 1.0 K/CMM 0.0 - 0.8 05/26 [facility] HEMATOLOGY Lymphocytes 1.3 K/CMM 1.0 - 5.5 05/26 [facility] # [facility] HEMATOLOGY Segs 76.2 % 45.0 - 05/26 [facility] 75.0 2016 [facility] PARATHYROID Ca Ion WB 1.11 mMol/L 1. - 05/26 [facility] PROFILE 1. [facility] PARATHYROID Ca Norm WB 1.08 mMol/L 1.05 - 05/26 [facility] PROFILE 1. [facility] Brain wo Brain wo EXAM: CT BRAIN 05/25 [facility] contrast CT contrast CT /2015 [facility] DATE: 05/25/2016 at 23:43 Read by: Kim Salgado MD Dictated Date/time: 05/26/16 00:23 Electronically Signed by: Kim Salgado MD 05/26/16 00:27 FINAL REPORT CLINICAL INFORMATION: Bleeding COMPARISON: Magnetic resonance imaging brain 05/25/2016 3:26 TECHNIQUE: Axial images of the brain were obtained from the skull base through the vertex without contrast material administration. DLP: 1177 mGycm DISCUSSION: Interval placement of a subdural drainage catheter along the right cerebral convexity with decrease in the right hemispheric subdural hematoma. Postoperative pneumocephalus. Improvement in the right to left midline shift and mass effect upon the right lateral ventricle. No new intracranial hemorrhage. Right frontal and parietal zane holes. IMPRESSION: Interval placement of a drainage catheter along the right cerebral convexity with decrease in the right hemispheric subdural hematoma and improved mass effect. CHEM PANEL eGFR 80 05/25 Result Comment: The eGFR is calculated using the CKD-EPI formula. In most young, healthy individuals the eGFR will be >90 mL/ min/1.73m2. The eGFR declines with age. An eGFR of 60-89 may be normal in [facility] mL/min/1.73 /2015 some populations, particularly the elderly, for whom the CKD-EPI formula has not been extensively validated. Use of the eGFR is not recommended in the following populations: [place] [address] [facility] Individuals with unstable creatinine concentrations, including patients and those with serious co-morbid conditions. Patients with extremes in muscle mass or diet. The data above are obtained from the National Kidney Disease Education Program (NKDEP) which additionally recommends that when the eGFR is used in patients with extremes of body mass index for purposes of drug dosing, the eGFR should be multiplied by the estimated BMI. CHEM PANEL AGAP 15.3 meq/L 10.0 - 05/25 [facility] 20.0 [facility] CHEM PANEL CO2 25 meq/L 24 - 32 05/25 [facility] CHEM PANEL Calcium Lvl 7.9 mg/dL 8.5 - 10.5 05/25 [facility] CHEM PANEL Chloride Lvl 100 meq/L 95 - 109 05/25 [facility] CHEM PANEL Potassium 4.3 meq/L 3.5 - 5.1 05/25 [facility] Lvl [facility] CHEM PANEL Sodium Lvl 136 meq/L 135 - 145 05/25 [facility] CHEM PANEL Creatinine 0.94 mg/dL 0.50 - 05/25 [facility] Lvl 1.40 /2015 [facility] CHEM PANEL Glucose Lvl 113 mg/dL 70 - 99 05/25 [facility] CHEM PANEL BUN 8 mg/dL 7 - 22 05/25 /2015 [facility] HEMATOLOGY INR 1.19 0.85 - 05/25 [place] 1.17 [facility] HEMATOLOGY PT 15.4 s 12.0 - 05/25 [place] 14.7 /2015 [facility] HEMATOLOGY PTT 34.1 s 22.9 - 05/25 [place] 35.8 /2015 [facility] PARATHYROID Ca Ion WB 1.07 mMol/L 1.05 - 05/25 [place] PROFILE 1.25 [facility] PARATHYROID Ca Norm WB 1.04 mMol/L 1.05 - 05/25 [facility] PROFILE 1. [facility] CARDIAC Troponin-T <0.010 0.000 - 05/25 [facility] ENZYMES ng/mL 0.100 [facility] CARDIAC Troponin-I null 0.00 - 05/25 [facility] ENZYMES 0.40 [facility] CARDIAC Total CK 57 unit/L 12 - 191 05/25 [facility] ENZYMES /2015 [facility] CHEM PANEL A/G Ratio 1.1 0.7 - 1.6 05/25 [place] /2016 [facility] CHEM PANEL Bili 0.4 mg/dL 0.0 - 1.0 05/25 [facility] Indirect /2015 [facility] CHEM PANEL Bili Total 0.6 mg/dL 0.2 - 1.3 05/25 [facility] /2016 [facility] CHEM PANEL Bili Direct 0.2 mg/dL 0.0 - 0.3 05/25 [facility] /2016 [facility] CHEM PANEL AST 13 unit/L 0 - 37 05/25 [facility] /2016 [facility] CHEM PANEL Alk Phos 113 unit/L 39 - 136 05/25 [facility] /[address] [place] [address] CHEM PANEL Globulin 2.7 g/dL 2.7 - 4.2 05/25 [facility] /2016 [facility] CHEM PANEL Total 5.7 g/dL 6.4 - 8.4 05/25 [facility] Protein [facility] CHEM PANEL Albumin Lvl 3.0 g/dL 3.5 - 5.0 05/25 [facility] /2016 [facility] CHEM PANEL ALT 14 unit/L 0 - 65 05/25 [facility] /2016 [facility] CHEM PANEL Phosphorus 3.2 mg/dL 2.5 - 4.5 05/25 [facility] /[address] [place] [address] CHEM PANEL Magnesium 1.7 mg/dL 1.8 - 2.4 05/25 [facility] Lvl /2015 [facility] Brain wo Brain wo Examination: MRI brain without contrast 05/25 - [facility] contrast contrast MRI /2015 - [facility] DATE: 05/25/2016 Read by: Jaspreet Rodriguez MD Dictated Date/time: 05/25/16 08:56 Electronically Signed by: Jaspreet Rodriguez MD 05/25/16 09:04 FINAL REPORT INDICATION: Radial nerve palsies. FINDINGS: Noncontrast images of the brain consisting of diffusion-weighted, fluid attenuated, and gradient echo axial images are performed and compared to a head CT dated 05/25/2016. There is no recent ischemic change or other parenchymal diffusion abnormality. There is a 2 cm diameter wedge-shaped area of T2 signal hyperintensity with gyriform hemorrhage in the right occipital pole which could represent contusion. Extensive areas of complex subdural hematoma are again noted overlying the right hemisphere with varying ages of hemorrhage and development of multiple septations and internal loculations. These collect ions result in midline shift of 6 mm. The basilar cisterns are widely patent. There is a smaller subdural collection over the left parietal convexity. There is subarachnoid hemorrhage in the interhemispheric fissure and to a lesser extent in the basilar cisterns. Circumferential mucosal thickening again noted in the right maxillary sinus. The sinuses and skull base are otherwise clear. The orbits are grossly unremarkable. There are scattered punctate areas of T2 signal abnormality in the periventricular and deep white matter which likely represent chronic small vessel ischemia. IMPRESSION: Solitary area of parenchymal abnormality in the right occipital lobe likely representing contusion. Extensive right-sided subdural hematoma with multiple areas of loculation and various ages of hemorrhage resulting in moderate mass effect. Resolving subarachnoid hemorrhage. Smaller left parietal subdural hematoma. Chest 1view Chest 1view EXAM: XR CHEST 1 VIEW 05/25 - [facility] DX [facility] DATE: 05/26/2016 3:00 AM CDT Read by: Faheem North MD Dictated Date/time: 05/26/16 10:30 Electronically Signed by: Faheem North MD 05/26/16 10:30 FINAL REPORT INDICATION: Respiratory distress COMPARISON: 05/24/2016 TECHNIQUE: AP chest IMPRESSION: 1. Both lungs are clear. Costophrenic recesses are sharp. Cardiomediastinal silhouette within normal limits. No acute osseous abnormalities. BLOOD BANK AB Int Anti-E 05/25 [facility] RESULTS /2015 [facility] BLOOD BANK Path AB Transfusion 05/25 [facility] RESULTS Medicine [facility] NoteThis is a 71 y/o male who was admitted on 05/24/16 for a subdural hematoma.An anti-E is detected in this patients serum. This antibody is directed against the E antigen of the Rh blood group system. It is typically IgG in nature and forms in response to RBC sensitizati on via transfusion . Anti-E antibody is considered a clinically significant antibody; it has been associated with hemolytic transfusion reactions.S hould RBC transfusion be necessary, E-negative crossmatch- compatible blood will be issued. Little difficulty in obtaining compatible blood is anticipated since 70% of the donor population lacks the E-antigen.T he patients electronic medical record has been reviewed for relevant information .I have reviewed the test results and concur with the resident Dr. Lillian Alcantar's interpretat ion.CPT: [id number] BLOOD BANK ABO/Rh O POS 05/25 [facility] RESULTS [facility] BLOOD BANK Antibody Positive 1 05/25 Result Comment: 05/25/2016 01:18 [id number] [facility] RESULTS Scrn "Significant Findings called to Baljinder CAPUTO at 0115 by [email or web address].Read Back OK." [facility] (05/24/16 9:09 PM) [place] 05/25/2016 01:14 [id number] Patient has unexpected antibodies. Allow extra time for additional crossmatches. HEMATOLOGY Max 68 mm 52 - 71 05/25 [facility] Amplitude [facility] HEMATOLOGY G-value 10.4 K d/sc 5.0 - 11.6 05/25 [facility] HEMATOLOGY Estimated % 0.4 % 0.0 - 7.5 05/25 [facility] Lysis [facility] HEMATOLOGY ACT (TEG) 121 s 86 - 118 05/25 [facility] HEMATOLOGY [place] 0.7 min 05/25 [facility] HEMATOLOGY R-time Rapid 0.8 min 0.4 - 0.7 05/25 [facility] HEMATOLOGY K-time Rapid 0.8 min 0.6 - 2.3 05/25 [facility] HEMATOLOGY Angle Rapid 80 degrees 64 - 80 05/25 [facility] HEMATOLOGY Eosinophils 1.7 % 0.0 - 4.0 05/25 [facility] HEMATOLOGY Eosinophils 0.1 K/CMM 0.0 - 0.5 05/25 [facility] # [facility] HEMATOLOGY Basophils # 0.1 K/CMM 0.0 - 0.2 05/25 [facility] HEMATOLOGY PTT 32.0 s 22.9 - 05/25 [facility] 35.8 /2016 [facility] Brain-Outsi Brain-Outsid Exam: CT head without contrast 05/24 [facility] de Consult e Consult CT - Medical [facility] Center INDICATION: Intracranial hemorrhage Read by: Leon Vo MD Dictated Date/time: 05/25/16 00:56 Electronically Signed by: Leon Vo MD 05/25/16 01:00 FINAL REPORT COMPARISON: None. TECHNIQUE: Axial computed tomography scan of the brain without contrast. FINDINGS: Large hyperacute subdural hematoma overlying the right cerebral hemisphere measuring up to 1.8 cm in maximum thickness. Associated mass effect over the adjacent brain parenchyma resulting in 0.8 cm righ t-to-left midline shift. Partial effacement of the right lateral ventricle. The chapman-white matter differentiation is otherwise maintained. Visualized paranasal sinuses are clear. Small right mastoid effusion. The bony calvarium is intact. IMPRESSION: Large hyperacute subdural hematoma overlying the right cerebral hemisphere measuring up to 1.8 cm in thickness. Associated 0.8 cm [id number] midline shift. 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 3 -D CT angiographic images are created using MIP technique at the acquisition workstation. The source images are also presented for interpretation. COMPARISON: None. FINDINGS: CT ANGIOGRAM OF THE NECK: Focus of calcific and noncalcific and is chronic disease at the proximal right vertebral artery near the origin with about 50% stenosis. Otherwise the V1 to V4 segments of the vertebral arteries includi ng origins are patent bilaterally. The common carotid arteries including origins are patent bilaterally. Calcific and noncalcific atherosclerotic disease at the bilateral carotid bulbs and the origins o f the internal carotid arteries resulting in high-grade stenosis (about 70% ) at the origins of bilateral internal carotid arteries. The remaining cervical internal carotid arteries are patent bilaterally. CT ANGIOGRAM OF THE HEAD: There is interval increase in size of the hyperacute subdural hematoma overlying the right cerebral hemisphere now measuring 2.6 cm previously measured 2.0 cm. Diffuse arteriosclerosis of bilateral petrous and cavernous internal carotid arteries with no focal high-grade stenosis. Fusiform aneurysmal dilatation of the supraclinoid bilateral ICAs. Diffuse lumina l irregularities of M2 to M4 segments of the left MCA compared to the right compatible with diffuse atherosclerotic disease. Luminal irregularities of the P2 to P4 segments of the right BONDING AGENT compatible w ith diffuse disease. Diffuse changes of centrilobular emphysema in bilateral upper lungs. IMPRESSION: 1. Interval increase in size of the hyperacute subdural hematoma overlying the right cerebral hemisphere now measuring 2.6 cm previously measured 2.0 cm concerning for active bleeding. 2. Diffuse luminal irregularities of distal sylvian branches of the left MCA and distal branches of the right BONDING AGENT compatible with diffuse atherosclerotic disease. Diffuse arteriosclerosis of bilateral c avernous and petrous internal carotid arteries. 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 3. About 70% stenosis at the origins of bilateral internal carotid arteries. 4. Diffuse changes of centrilobular emphysema in bilateral upper lungs. The above findings are relayed to Dr. Fry at 1130 hours on 05/24/[address] Rock Angel Brain wo Brain wo EXAM: CT HEAD WITHOUT CONTRAST 05/24 [facility] contrast CT contrast CT /2016 [facility] DATE: 05/24/2016 8:56 PM CDT Read by: Leon Vo MD Dictated Date/time: 05/24/16 21:46 Electronically Signed by: Leon Vo MD 05/24/16 21:57 FINAL REPORT INDICATION: 71 years old Male patient with history of Hemiparesis. TECHNIQUE: Multiple axial images were obtained through the head from vertex to the skull base. Axial bone algorithm reconstruction images are provided. COMPARISON: None. FINDINGS: Acute/hyperacute mixed density subdural hematoma overlying the right cerebral hemisphere measuring 2.0 cm in maximum thickness. There is associated mass effect resulting in right to left midline shift a bout 1.0 cm. There is partial effacement of the right lateral ventricle. Additional subdural hematoma is seen along the falx and bilateral tentorial leaflets. Chronic encephalomalacia in the right parie to-occipital lobes. Inflammatory mucosal thickening of bilateral maxillary sinuses. The remaining paranasal sinuses are clear. No mastoid effusion is identified. The bony calvarium is intact. IMPRESSION: 1. Acute/hyperacute subdural hematoma overlying the right cerebral hemisphere measuring up to 2.0 cm in maximum thickness. Associated 1.0 cm midline shift. 2. Chronic encephalomalacia in the right parieto-occipital lobes. Chest 1view Chest 1view EXAM: XR CHEST 1 VIEW 05/24 - [facility] DX - Medical This report was dictated by a [employer] Worker/Fellow. I have personally reviewed the images as Center well as the Resident's interpretation and agree with the findings. DATE: 05/24/2016 8:56 PM CDT Read by: Stanley Wilkerson MD Resident: Stanley Wilkerson MD Dictated Date/time: 05/24/16 21:12 Electronically Signed by: John Ríos MD 05/24/16 21:23 FINAL REPORT INDICATION: TIA COMPARISON: None TECHNIQUE: AP chest FINDINGS: Lines and tubes: None. Lungs and pleura: Mild bibasilar subsegmental atelectasis. Heart and mediastinum: The heart size is normal for technique. Significant tortuosity of the aorta noted. Bones: No acute bony abnormality is identified. IMPRESSION: 1. Mild bibasilar subsegmental atelectasis. 2. Tortuous aorta. Vital Signs Vital Sign Value Date Comments Source Systolic (mm Hg) 178 05/30/2016 [facility] Diastolic (mm Hg) 88 05/30/2016 [facility] Temperature Oral (F) 97.7 F 05/30/2016 [facility] Heart Rate 65 05/30/2016 [facility] Respitory Rate 18 05/30/2016 [facility] Respitory Rate 18 05/30/2016 [facility] Heart Rate 71 05/30/2016 [facility] Systolic (mm Hg) 176 05/30/2016 [facility] Diastolic (mm Hg) 90 05/30/2016 [facility] Temperature Oral (F) 97.8 F 05/30/2016 [facility] Systolic (mm Hg) 113 05/30/2016 [facility] Diastolic (mm Hg) 62 05/30/2016 [facility] Temperature Oral (F) 98.1 F 05/30/2016 [facility] Respitory Rate 16 05/30/2016 [facility] Heart Rate 68 05/30/2016 [facility] BMI Calculated 25.6 05/25/2016 [facility] Weight 76.36 05/25/2016 [facility] Height 172.72 cm 05/25/2016 [facility] Weight 76.364 05/25/2016 [facility] BMI Calculated 26.37 05/25/2016 [facility] Height 170.18 cm 05/25/2016 [facility] Encounters Location Location Encounter Encounter Reason Attending ADM DC Status Source Details Type Number For Provider Date Date Visit [facility] [id number] [place] 05/25 05/30 [facility] Jevon Salguero /2015 [facility] Outpatient [id number] [facility] 06/12 [facility] /2015 [facility] [id number] [facility] 07/24 [facility] /2015 [facility] Procedures Procedure Code Date Perfomer Comments Source Abdominal aortic [id number] Had MRI after [facility] aneurysm repair Medical stenting<sup>1</ Center sup> Bypass / graft [id number] [facility] Hernia repair [id number] [facility]
--- OUTSIDE RECORDS SUMMARY | 2018-03-05 19:11 | XMS REPORT ---
[...] Date End Date Status Dosage Lisinopril [facility] [id number] 40 MG Orally Once Active 1 tablet a day Results No Known Results Summary Purpose eClinicalWorks Submission
--- OUTSIDE RECORDS SUMMARY | 2018-03-05 19:11 | XMS REPORT ---
:1945 Author Organization [facility] Address [address] [place] [address] Dr. Dennison [address] [place] [id number] Care Team Providers Name Role Phone NANDO HDZ Unavailable Unavailable Problems This patient has no known problems. Allergies, Adverse Reactions, Alerts This patient has no known allergies or adverse reactions. Medications This patient has no known medications. Results Test Description Test Time Test Comments Text Results Atomic Results Result Comments TISSUE EXAM 2018-02-09 16:28:00 Surgical Pathology Report Case: [id number] Authorizing Provider: Nando Hdz MD Collected: 02/02/20181941 Ordering Location: [facility] Received: 02/03/2018812 Pathologist: Sidney Wright MD Specimen: Plaque ARTERY, RIGHT EMERALD, ENDARTERECTOMY:CALCIFIC ATHEROSCLEROTIC PLAQUE WITH EROSION AND ATTACHED ORGANIZING THROMBUS Signing Pathologist Direct Phone Line: [phone] signed by Sidney Wright MD on 02/09/2018 at 4:28 [id number]; [id number] femoral artery plaqueRight femoral artery plaqueThe specimen is received in a formalin-filled container and labeled with the patient's information and labeled "right femoral artery plaque and consists of two calcified fragments of tissue both measuring 2 cm in length ranging in diameter from 0.6 to 1 cm and separate segment of hemorrhagic calcified tissue measuring 2.5 x 1.5 x 1 cm in aggregate. Weed Inspector sections are submitted A1 for decalcification. CG/pl Performed PHOSPHORUS 2018-02-05 06:08:00 Test Item Value Reference Range Comments PHOSPHORUS (BEAKER) (test hchb=256) 2.2 mg/dL 2.3-4.7 [id number] 06:08:00 Test Item Value Reference Range Comments MAGNESIUM (BEAKER) (test jezx=427) 2.1 mg/dL 1.6-2.6 BASIC METABOLIC [id number] 06:08:00 Test Item Value Reference Range Comments SODIUM (BEAKER) (test 131 meq/L 136-145 cwrs=888) POTASSIUM (BEAKER) (test 3.5 meq/L 3.5-5.1 cfrk=319) CHLORIDE (BEAKER) (test 101 meq/L 98-107 edfx=030) CO2 (BEAKER) (test 26 meq/L 22-29 zunk=143) BLOOD UREA NITROGEN 12 mg/dL 7-21 (BEAKER) (test dhvz=983) CREATININE (BEAKER) (test 0.95 mg/dL 0.57-1.25 jiks=745) GLUCOSE RANDOM (BEAKER) 96 mg/dL 70-105 (test whuy=168) CALCIUM (BEAKER) (test 8.4 mg/dL 8.4-10.2 gfnh=257) EGFR (BEAKER) (test 77 mL/min/1.73 sq m ESTIMATED GFR IS NOT iaim=7834) ACCURATE CREATININE CLEARANCE IN PREDICTING GLOMERULAR FILTRATION RATE. ESTIMATED GFR IS NOT APPLICABLE FOR DIALYSIS PATIENTS. CBC (HEMOGRAM ONLY)2018-02-05 05:30:00 Test Item Value Reference Range Comments WHITE BLOOD CELL COUNT (BEAKER) (test bswq=101) 6.5 K/ L 3.5-10.5 RED BLOOD CELL COUNT (BEAKER) (test ksqs=276) 3.24 M/ L 4.63-6.08 HEMOGLOBIN (BEAKER) (test eoln=838) 8.5 GM/DL 13.7-17.5 HEMATOCRIT (BEAKER) (test rnhv=649) 27.4 % 40.1-51.0 MEAN CORPUSCULAR VOLUME (BEAKER) (test sutb=930) 84.6 fL 79.0-92.2 MEAN CORPUSCULAR HEMOGLOBIN (BEAKER) (test 26.2 pg 25.7-32.2 wngw=640) MEAN CORPUSCULAR HEMOGLOBIN CONC (BEAKER) (test 31.0 GM/DL 32.3-36.5 qokk=807) RED CELL DISTRIBUTION WIDTH (BEAKER) (test 18.4 % 11.6-14.4 wnsa=265) PLATELET COUNT (BEAKER) (test rrav=764) 127 K/CU MM 150-450 MEAN PLATELET VOLUME (BEAKER) (test vtzu=060) 9.8 fL 9.4-12.4 NUCLEATED RED BLOOD CELLS (BEAKER) (test 0 /100 WBC 0-0 cdzy=210) HEMOGLOBIN AND [id number] 11:55:00 Test Item Value Reference Range Comments HEMOGLOBIN (BEAKER) (test opxx=953) 8.4 GM/DL 13.7-17.5 HEMATOCRIT (BEAKER) (test daez=160) 28.9 % 40.1-51.0 [id number] 04:57:00 Test Item Value Reference Range Comments PHOSPHORUS (BEAKER) (test vmdu=062) 2.5 mg/dL 2.3-4.7 [id number] 04:57:00 Test Item Value Reference Range Comments MAGNESIUM (BEAKER) (test fdtf=821) 1.7 mg/dL 1.6-2.6 BASIC METABOLIC [id number] 04:57:00 Test Item Value Reference Range Comments SODIUM (BEAKER) (test 131 meq/L 136-145 phnc=164) POTASSIUM (BEAKER) (test 3.9 meq/L 3.5-5.1 sxfn=552) CHLORIDE (BEAKER) (test 102 meq/L 98-107 iazn=728) CO2 (BEAKER) (test 25 meq/L 22-29 eejr=675) BLOOD UREA NITROGEN 9 mg/dL 7-21 (BEAKER) (test szci=679) CREATININE (BEAKER) (test 0.85 mg/dL 0.57-1.25 oxhu=296) GLUCOSE RANDOM (BEAKER) 106 mg/dL 70-105 (test hbgu=257) CALCIUM (BEAKER) (test 8.2 mg/dL 8.4-10.2 phca=969) EGFR (BEAKER) (test 88 mL/min/1.73 sq m ESTIMATED GFR IS NOT twjt=9823) ACCURATE CREATININE CLEARANCE IN PREDICTING GLOMERULAR FILTRATION RATE. ESTIMATED GFR IS NOT APPLICABLE FOR DIALYSIS PATIENTS. CBC (HEMOGRAM ONLY)2018-02-04 04:35:00 Test Item Value Reference Range Comments WHITE BLOOD CELL COUNT (BEAKER) (test dpzv=789) 9.4 K/ L 3.5-10.5 RED BLOOD CELL COUNT (BEAKER) (test ylkv=093) 3.15 M/ L 4.63-6.08 HEMOGLOBIN (BEAKER) (test raum=378) 8.1 GM/DL 13.7-17.5 HEMATOCRIT (BEAKER) (test imrw=807) 25.5 % 40.1-51.0 MEAN CORPUSCULAR VOLUME (BEAKER) (test fnhv=759) 81.0 fL 79.0-92.2 MEAN CORPUSCULAR HEMOGLOBIN (BEAKER) (test 25.7 pg 25.7-32.2 weoi=467) MEAN CORPUSCULAR HEMOGLOBIN CONC (BEAKER) (test 31.8 GM/DL 32.3-36.5 btsc=600) RED CELL DISTRIBUTION WIDTH (BEAKER) (test 18.2 % 11.6-14.4 rnrj=037) PLATELET COUNT (BEAKER) (test anym=537) 125 K/CU MM 150-450 MEAN PLATELET VOLUME (BEAKER) (test ivks=219) 10.1 fL 9.4-12.4 NUCLEATED RED BLOOD CELLS (BEAKER) (test 0 /100 WBC 0-0 rkpw=210) CBC W/PLT COUNT & AUTO [id number] 15:56:00 Test Item Value Reference Range Comments WHITE BLOOD CELL COUNT (BEAKER) (test goxz=031) 13.1 K/ L 3.5-10.5 RED BLOOD CELL COUNT (BEAKER) (test ffsf=311) 4.01 M/ L 4.63-6.08 HEMOGLOBIN (BEAKER) (test djis=698) 10.2 GM/DL 13.7-17.5 HEMATOCRIT (BEAKER) (test utcp=187) 32.3 % 40.1-51.0 MEAN CORPUSCULAR VOLUME (BEAKER) (test myny=269) 80.5 fL 79.0-92.2 MEAN CORPUSCULAR HEMOGLOBIN (BEAKER) (test 25.4 pg 25.7-32.2 sovb=096) MEAN CORPUSCULAR HEMOGLOBIN CONC (BEAKER) (test 31.6 GM/DL 32.3-36.5 sfug=785) RED CELL DISTRIBUTION WIDTH (BEAKER) (test 18.1 % 11.6-14.4 zwsh=748) PLATELET COUNT (BEAKER) (test itjo=277) 162 K/CU MM 150-450 MEAN PLATELET VOLUME (BEAKER) (test gzzl=443) 10.3 fL 9.4-12.4 NUCLEATED RED BLOOD CELLS (BEAKER) (test 0 /100 WBC 0-0 wkep=506) NEUTROPHILS RELATIVE PERCENT (BEAKER) (test 86 % jzol=610) LYMPHOCYTES RELATIVE PERCENT (BEAKER) (test 5 % vuhk=617) MONOCYTES RELATIVE PERCENT (BEAKER) (test 7 % phhx=965) EOSINOPHILS RELATIVE PERCENT (BEAKER) (test 0 % ollg=230) BASOPHILS RELATIVE PERCENT (BEAKER) (test 0 % xuun=772) NEUTROPHILS ABSOLUTE COUNT (BEAKER) (test 11.26 K/ L 1.78-5.38 cpnx=152) LYMPHOCYTES ABSOLUTE COUNT (BEAKER) (test 0.70 K/ L 1.32-3.57 nccc=102) MONOCYTES ABSOLUTE COUNT (BEAKER) (test 0.95 K/ L 0.30-0.82 bzhj=673) EOSINOPHILS ABSOLUTE COUNT (BEAKER) (test 0.00 K/ L 0.04-0.54 urrw=361) BASOPHILS ABSOLUTE COUNT (BEAKER) (test 0.04 K/ L 0.01-0.08 rgbc=637) IMMATURE GRANULOCYTES-RELATIVE PERCENT (BEAKER) 1 % 0-1 (test zfjd=7667) COMPREHENSIVE METABOLIC [id number] 05:49:00 Test Item Value Reference Range Comments TOTAL PROTEIN (BEAKER) 5.7 gm/dL 6.0-8.3 (test lora=158) ALBUMIN (BEAKER) (test 3.3 g/dL 3.5-5.0 xsrk=3947) ALKALINE PHOSPHATASE 133 U/L 40-150 (BEAKER) (test klyb=789) BILIRUBIN TOTAL (BEAKER) 0.8 mg/dL 0.2-1.2 (test ckqp=757) SODIUM (BEAKER) (test 134 meq/L 136-145 urwz=733) POTASSIUM (BEAKER) (test 4.1 meq/L 3.5-5.1 wgsw=606) CHLORIDE (BEAKER) (test 106 meq/L 98-107 ncbf=957) CO2 (BEAKER) (test 19 meq/L 22-29 yvbb=447) BLOOD UREA NITROGEN 6 mg/dL 7-21 (BEAKER) (test qxfe=333) CREATININE (BEAKER) (test 0.88 mg/dL 0.57-1.25 mydu=573) GLUCOSE RANDOM (BEAKER) 163 mg/dL 70-105 (test xvmj=295) CALCIUM (BEAKER) (test 8.3 mg/dL 8.4-10.2 fzxj=177) AST (SGOT) (BEAKER) (test 12 U/L 5-34 icca=158) ALT (SGPT) (BEAKER) (test < U/L 6-55 swvn=560) EGFR (BEAKER) (test 85 mL/min/1.73 sq m ESTIMATED GFR IS NOT wrpl=2672) ACCURATE CREATININE CLEARANCE IN PREDICTING GLOMERULAR FILTRATION RATE. ESTIMATED GFR IS NOT APPLICABLE FOR DIALYSIS PATIENTS. [id number] 05:48:00 Test Item Value Reference Range Comments PHOSPHORUS (BEAKER) (test tcmi=718) 2.9 mg/dL 2.3-4.7 [id number] 05:48:00 Test Item Value Reference Range Comments MAGNESIUM (BEAKER) (test cabp=937) 1.7 mg/dL 1.6-2.6 CBC W/PLT COUNT & AUTO [id number] 04:20:00 Test Item Value Reference Range Comments WHITE BLOOD CELL COUNT (BEAKER) (test dqjd=667) 15.4 K/ L 3.5-10.5 RED BLOOD CELL COUNT (BEAKER) (test llsn=359) 4.13 M/ L 4.63-6.08 HEMOGLOBIN (BEAKER) (test ogan=391) 10.7 GM/DL 13.7-17.5 HEMATOCRIT (BEAKER) (test wbef=469) 34.3 % 40.1-51.0 MEAN CORPUSCULAR VOLUME (BEAKER) (test zeng=418) 83.1 fL 79.0-92.2 MEAN CORPUSCULAR HEMOGLOBIN (BEAKER) (test 25.9 pg 25.7-32.2 qaoa=670) MEAN CORPUSCULAR HEMOGLOBIN CONC (BEAKER) (test 31.2 GM/DL 32.3-36.5 phby=296) RED CELL DISTRIBUTION WIDTH (BEAKER) (test 17.9 % 11.6-14.4 ewck=812) PLATELET COUNT (BEAKER) (test czbh=898) 33 K/CU MM 150-450 MEAN PLATELET VOLUME (BEAKER) (test prwn=725) 10.0 fL 9.4-12.4 NUCLEATED RED BLOOD CELLS (BEAKER) (test 0 /100 WBC 0-0 npni=467) NEUTROPHILS RELATIVE PERCENT (BEAKER) (test 91 % ryyr=458) LYMPHOCYTES RELATIVE PERCENT (BEAKER) (test 3 % ueuv=487) MONOCYTES RELATIVE PERCENT (BEAKER) (test 4 % jamb=223) EOSINOPHILS RELATIVE PERCENT (BEAKER) (test 0 % ayio=541) BASOPHILS RELATIVE PERCENT (BEAKER) (test 0 % afug=044) NEUTROPHILS ABSOLUTE COUNT (BEAKER) (test 14.01 K/ L 1.78-5.38 bqrp=157) LYMPHOCYTES ABSOLUTE COUNT (BEAKER) (test 0.46 K/ L 1.32-3.57 xtku=797) MONOCYTES ABSOLUTE COUNT (BEAKER) (test spzj=409) 0.64 K/ L 0.30-0.82 EOSINOPHILS ABSOLUTE COUNT (BEAKER) (test 0.01 K/ L 0.04-0.54 pvbw=169) BASOPHILS ABSOLUTE COUNT (BEAKER) (test tduy=432) 0.05 K/ L 0.01-0.08 IMMATURE GRANULOCYTES-RELATIVE PERCENT (BEAKER) 1 % 0-1 (test bvlc=2261) VANCOMYCIN LEVEL, [id number] 23:58:00 Test Item Value Reference Range Comments VANCOMYCIN TROUGH (BEAKER) (test rvhr=546) < ug/mL 10.0-20.0 PROTHROMBIN [id number] 23:27:00 Test Item Value Reference Range Comments PROTIME (BEAKER) (test eoij=156) 15.6 seconds 11.7-14.7 INR (BEAKER) (test euzu=374) 1.2 <=5.9 RECOMMENDED COUMADIN/WARFARIN INR THERAPY RANGESSTANDARD DOSE: 2.0 - 3.0 Includes: PROPHYLAXIS forvenous thrombosis, systemic embolization; TREATMENT for venous thrombosis and/or pulmonary embolus.HIGH RISK: Target INR is 2.5-3.5 for patients with mechanical heart valves.[id number] 23:27:00 Test Item Value Reference Range Comments FIBRINOGEN LEVEL (BEAKER) (test mann=221) 276 mg/dl 225-434 [id number] 23:27:00 Test Item Value Reference Range Comments PARTIAL THROMBOPLASTIN TIME (BEAKER) (test 29.8 seconds 22.5-36.0 yhzg=030) CBC W/PLT COUNT & AUTO [id number] 23:22:00 Test Item Value Reference Range Comments WHITE BLOOD CELL COUNT (BEAKER) (test idwr=796) 18.8 K/ L 3.5-10.5 RED BLOOD CELL COUNT (BEAKER) (test wrah=287) 4.49 M/ L 4.63-6.08 HEMOGLOBIN (BEAKER) (test iclg=269) 11.3 GM/DL 13.7-17.5 HEMATOCRIT (BEAKER) (test nqsh=732) 37.7 % 40.1-51.0 MEAN CORPUSCULAR VOLUME (BEAKER) (test afgb=073) 84.0 fL 79.0-92.2 MEAN CORPUSCULAR HEMOGLOBIN (BEAKER) (test 25.2 pg 25.7-32.2 krol=103) MEAN CORPUSCULAR HEMOGLOBIN CONC (BEAKER) (test 30.0 GM/DL 32.3-36.5 hspy=236) RED CELL DISTRIBUTION WIDTH (BEAKER) (test 17.5 % 11.6-14.4 jgad=099) PLATELET COUNT (BEAKER) (test dmxd=923) 196 K/CU MM 150-450 MEAN PLATELET VOLUME (BEAKER) (test tbsj=510) 10.0 fL 9.4-12.4 NUCLEATED RED BLOOD CELLS (BEAKER) (test 0 /100 WBC 0-0 zspl=593) NEUTROPHILS RELATIVE PERCENT (BEAKER) (test 89 % buuz=117) LYMPHOCYTES RELATIVE PERCENT (BEAKER) (test 3 % runy=286) MONOCYTES RELATIVE PERCENT (BEAKER) (test 6 % iyva=453) EOSINOPHILS RELATIVE PERCENT (BEAKER) (test 0 % tfnm=827) BASOPHILS RELATIVE PERCENT (BEAKER) (test 0 % ewom=875) NEUTROPHILS ABSOLUTE COUNT (BEAKER) (test 16.79 K/ L 1.78-5.38 mqsg=315) LYMPHOCYTES ABSOLUTE COUNT (BEAKER) (test 0.60 K/ L 1.32-3.57 yjoq=742) MONOCYTES ABSOLUTE COUNT (BEAKER) (test 1.17 K/ L 0.30-0.82 yyfc=798) EOSINOPHILS ABSOLUTE COUNT (BEAKER) (test 0.02 K/ L 0.04-0.54 pzlp=926) BASOPHILS ABSOLUTE COUNT (BEAKER) (test 0.04 K/ L 0.01-0.08 gwzu=530) IMMATURE GRANULOCYTES-RELATIVE PERCENT (BEAKER) 1 % 0-1 (test snly=1216) [id number] 23:21:00 Test Item Value Reference Range Comments PHOSPHORUS (BEAKER) (test wkdr=031) 3.1 mg/dL 2.3-4.7 [id number] 23:21:00 Test Item Value Reference Range Comments MAGNESIUM (BEAKER) (test tofm=124) 1.7 mg/dL 1.6-2.6 BASIC METABOLIC [id number] 23:21:00 Test Item Value Reference Range Comments SODIUM (BEAKER) (test 133 meq/L 136-145 wofn=915) POTASSIUM (BEAKER) (test 4.2 meq/L 3.5-5.1 afos=328) CHLORIDE (BEAKER) (test 105 meq/L 98-107 azrm=772) CO2 (BEAKER) (test 17 meq/L 22-29 exee=400) BLOOD UREA NITROGEN 7 mg/dL 7-21 (BEAKER) (test zcnf=314) CREATININE (BEAKER) (test 0.99 mg/dL 0.57-1.25 kaie=414) GLUCOSE RANDOM (BEAKER) 155 mg/dL 70-105 (test exsd=864) CALCIUM (BEAKER) (test 8.3 mg/dL 8.4-10.2 jssl=865) EGFR (BEAKER) (test 74 mL/min/1.73 sq m ESTIMATED GFR IS NOT vybo=0958) ACCURATE CREATININE CLEARANCE IN PREDICTING GLOMERULAR FILTRATION RATE. ESTIMATED GFR IS NOT APPLICABLE FOR DIALYSIS PATIENTS. HEPATIC FUNCTION [id number] 23:21:00 Test Item Value Reference Range Comments TOTAL PROTEIN (BEAKER) (test vvvk=867) 5.8 gm/dL 6.0-8.3 ALBUMIN (BEAKER) (test elfs=9929) 3.5 g/dL 3.5-5.0 BILIRUBIN TOTAL (BEAKER) (test crjv=814) 1.5 mg/dL 0.2-1.2 BILIRUBIN DIRECT (BEAKER) (test fwud=282) 0.8 mg/dL 0.1-0.5 ALKALINE PHOSPHATASE (BEAKER) (test zbyt=836) 142 U/L 40-150 AST (SGOT) (BEAKER) (test nskj=348) 12 U/L 5-34 ALT (SGPT) (BEAKER) (test syuq=222) 7 U/L 6-55 LACTIC ACID, ARTERIAL, WHOLE [id number] 23:15:00 Test Item Value Reference Range Comments LACTATE BLOOD ARTERIAL (2) (BEAKER) (test 1.7 mmol/L 0.5-2.2 vimg=1166) Effective 12/12/2015: Units/Reference Range ChangeNew: 0.5-2.2 mmol/L Previous: 5 -20 mg/dLRAD, CHEST, 1 VIEW, NON [id number] 23:12:00Reason for exam:->s/ p cardiac surgeryShould this be performed at the bedside?->YesFINAL REPORT Chest, one view HISTORY: Postop COMPARISON: CTA of the chest from 11/26/2017 DISCUSSION: Tortuosity and enlargement of the thoracic aorta, as seen on prior CTA. Lungsgrossly clear without focal consolidation. No large pleural effusion or pneumothorax. Aortic valve prosthesis is seen. No acute osseous abnormality. IMPRESSION: Unchanged tortuosity and enlargement of the thoracic aorta. No new acute cardiopulmonary abnormality. Signed: Denzel Langley MDReport Verified Date/Time: 02/02/2018 23:12:37 Reading Location: [facility] [id number] Consult Reading Room Electronicallysigned by: DENZEL LANGLEY MD on 02/02/2018 11:12 PMHEMOGLOBIN AND [id number] 23:06:00 Test Item Value Reference Range Comments HEMOGLOBIN (BEAKER) (test ityy=533) 11.3 GM/DL 13.7-17.5 HEMATOCRIT (BEAKER) (test tgcy=158) 37.7 % 40.1-51.0 CALCIUM, [id number] 22:57:00 Test Item Value Reference Range Comments CALCIUM IONIZED (BEAKER) (test czlc=870) 1.02 mmol/L 1.12-1.27 PH, BLOOD (BEAKER) (test youu=3091) 7.38 OXYGEN SATURATION, [id number] 22:56:00 Test Item Value Reference Range Comments O2 SATURATION (MEASURED) (BEAKER) (test pyiz=2115) 72.2 % PROTHROMBIN [id number] 19:20:00 Test Item Value Reference Range Comments PROTIME (BEAKER) (test hfsj=581) 17.6 seconds 11.7-14.7 INR (BEAKER) (test dnwe=187) 1.5 <=5.9 RECOMMENDED COUMADIN/WARFARIN INR THERAPY RANGESSTANDARD DOSE: 2.0 - 3.0 Includes: PROPHYLAXIS forvenous thrombosis, systemic embolization; TREATMENT for venous thrombosis and/or pulmonary embolus.HIGH RISK: Target INR is 2.5-3.5 for patients with mechanical heart valves.[id number] 19:20:00 Test Item Value Reference Range Comments FIBRINOGEN LEVEL (BEAKER) (test vfzk=241) 240 mg/dl 225-434 [id number] 19:20:00 Test Item Value Reference Range Comments PARTIAL THROMBOPLASTIN TIME (BEAKER) (test 33.3 seconds 22.5-36.0 mnhb=928) PLATELET [id number] 19:00:00 Test Item Value Reference Range Comments PLATELET COUNT (BEAKER) (test ofgt=550) 149 K/CU MM 150-450 POTASSIUM-STAT [id number] 18:54:00 Test Item Value Reference Range Comments POTASSIUM (BEAKER) (test lhih=147) 4.2 meq/L 3.6-5.5 HEMOGLOBIN-STAT [id number] 18:54:00 Test Item Value Reference Range Comments HEMOGLOBIN (BEAKER) (test aqrg=483) 9.9 g/dL 13.0-16.8 HEMATOCRIT-STAT [id number] 18:54:00 Test Item Value Reference Range Comments HEMATOCRIT (BEAKER) (test jmpy=610) 29.0 % 40.0-50.0 BLOOD GAS, [id number] 18:54:00 Test Item Value Reference Range Comments PH ARTERIAL (BEAKER) (test urkf=318) 7.37 7.35-7.45 PCO2 ARTERIAL (BEAKER) (test yvhs=452) 39 mmHg 35-45 PO2 ARTERIAL (BEAKER) (test wwit=845) 229 mmHg 80-90 O2 SATURATION ARTERIAL (BEAKER) (test hwxc=997) 99.5 % 96.0-97.0 HCO3 ARTERIAL (BEAKER) (test bwvr=599) 22 mmol/L 21-29 BASE EXCESS ARTERIAL (BEAKER) (test aeqz=964) -3.4 mmol/L -2.0-3.0 PATIENT TEMPERATURE (BEAKER) (test ejsf=3533) 37.0 C SODIUM NA-STAT [id number] 18:54:00 Test Item Value Reference Range Comments SODIUM (BEAKER) (test bgkh=393) 133 meq/L 135-148 GLUCOSE-STAT [id number] 18:54:00 Test Item Value Reference Range Comments GLUCOSE RANDOM (BEAKER) (test nlga=230) 134 mg/dL 70-110 HGB/HCT (H&H) - STAT [id number] 18:54:00 Test Item Value Reference Range Comments HEMOGLOBIN (BEAKER) (test pqva=196) 9.9 GM/DL 13.0-16.8 HEMATOCRIT (BEAKER) (test snwj=857) 29.0 % 40.0-50.0 CALCIUM, [id number] 18:54:00 Test Item Value Reference Range Comments CALCIUM IONIZED (BEAKER) (test smee=732) 1.03 mmol/L 1.12-1.27 PH, BLOOD (BEAKER) (test fybp=1941) 7.37 CALCIUM, [id number] 18:13:00 Test Item Value Reference Range Comments CALCIUM IONIZED (BEAKER) (test pwdh=464) 1.02 mmol/L 1.12-1.27 PH, BLOOD (BEAKER) (test cwri=1603) 7.36 [id number] 17:42:00 Test Item Value Reference Range Comments ACTIVATED CLOTTING TIME 279 sec TESTED AT [place] [id number] [facility] (BEAKER) (test ngjq=404) [place] [address] [id number] 17:42:00 Test Item Value Reference Range Comments ACTIVATED CLOTTING TIME 224 sec TESTED AT [place] [address] [facility] (BEAK[facility]) (test lxrk=579) [place] [address] [id number] 17:42:00 Test Item Value Reference Range Comments ACTIVATED CLOTTING TIME 158 sec TESTED AT [place] [address] [facility] (BEAK[facility]) (test jznx=955) [place] [address] HGB/HCT (H&H) - STAT [id number] 16:30:00 Test Item Value Reference Range Comments HEMOGLOBIN (BEAKER) (test yzph=309) 9.9 GM/DL 13.0-16.8 HEMATOCRIT (BEAKER) (test uevx=876) 29.0 % 40.0-50.0 POTASSIUM-STAT [id number] 16:30:00 Test Item Value Reference Range Comments POTASSIUM (BEAKER) (test exkk=528) 3.7 meq/L 3.6-5.5 SODIUM NA-STAT [id number] 16:30:00 Test Item Value Reference Range Comments SODIUM (BEAKER) (test lrrm=891) 134 meq/L 135-148 GLUCOSE-STAT [id number] 16:30:00 Test Item Value Reference Range Comments GLUCOSE RANDOM (BEAKER) (test hpal=701) 105 mg/dL 70-110 [id number] 16:17:00 Test Item Value Reference Range Comments ACTIVATED CLOTTING TIME [address] [facility] [address] [facility] (BE[facility]ER[facility] (test ocnw=948) [facility] [address] BLOOD GAS, [id number] 16:16:00 Test Item Value Reference Range Comments PH ARTERIAL (BEAKER) (test cntt=829) 7.42 7.35-7.45 PCO2 ARTERIAL (BEAKER) (test hnms=914) 40 mmHg 35-45 PO2 ARTERIAL (BEAKER) (test rwpz=840) 205 mmHg 80-90 O2 SATURATION ARTERIAL (BEAKER) (test ndae=497) 99.4 % 96.0-97.0 HCO3 ARTERIAL (BEAKER) (test iyee=717) 25 mmol/L 21-29 BASE EXCESS ARTERIAL (BEAKER) (test ubga=792) 0.8 mmol/L -2.0-3.0 PATIENT TEMPERATURE (BEAKER) (test zvsn=1930) 37.0 C CALCIUM, [id number] 16:11:00 Test Item Value Reference Range Comments CALCIUM IONIZED (BEAKER) (test oazv=760) 1.09 mmol/L 1.12-1.27 PH, BLOOD (BEAKER) (test umnr=6080) 7.42 MR, MRA, EXTREMITY, LOWER, WITHOUT FOLLOW, WITH [id number] 17:43: 00Bilateral extremitiesNando Hdz MD [facility] Yoni Hdz MD [facility] CITYlinical Professor [facility] HospitalCo Mechanical Lead of P[facility] Services at [facility] V[facility] at [place] [id number] [place], [place] [email or web address] MRA of the lower extremities, 28 [...] reconstruction was performed by an independent workstation ([employer]). Please refer to the contrast sheetscanned in the RIS system for the amount [...] CT scan. The proximal abdominal aorta is [place]. The celiac axis, SMA are patent with no obstructive lesion identified. Single left and right renal arteries are seen. Atherosclerosis is seen at the proximal left renal artery; remainder of the left renal artery is widely patent. The right renal artery is patent. Patient ispost grafting of the infrarenal abdominal aorta and [...] coil embolisation procedure as per EPIC. The [place] left external iliac artery and the left [...] centimeters of the left SFA could be [place]. However, there is likely a left femoral to popliteal bypassgraft identified due to the course of the artery. This graft is widely patent with no proximal or distal anastomotic stenosis present. In the left lower extremity, it appears the tibioperoneal trunk issmall and very short. The left anterior tibial artery is well identified and is patent though atherosclerosis is seen, with no critical obstructive lesion identified. The dorsalis pedis artery is seen distally. The left peroneal artery is well seen down to level of the ankle. Significant diffuse disease is seen in the left posterior tibial artery. In the right, the [place] right SFA is seen to be occluded. [...] though thereafter, it is occluded. 4. The [place] left SFA is likely occluded and a left femoral to distal popliteal bypass graft is identified that is patent with no proximal or distal anastomotic stenosis. Essentially three-vessel runoff is seen in the left lower extremity. 5. In the right, the [place] right SFA is occluded. It appears patient [...] optimizing assessment of extravascular structures. Signed: Juwan Echols MDReport Verified Date/Time: 01/28/2018 17:43:09 Reading Location: [place] [address] Cardiology [facility] [id number] 07 :36:00 Test Item Value Reference Range Comments SODIUM (BEAKER) (test 135 meq/L 136-145 ujra=117) POTASSIUM (BEAKER) (test 4.3 meq/L 3.5-5.1 pmcu=243) CHLORIDE (BEAKER) (test 103 meq/L 98-107 myhg=827) CO2 (BEAKER) (test 25 meq/L 22-29 tvtf=630) BLOOD UREA NITROGEN 8 mg/dL 7-21 (BEAKER) (test bsfe=294) CREATININE (BEAKER) (test 1.09 mg/dL 0.57-1.25 hfnm=382) GLUCOSE RANDOM (BEAKER) 92 mg/dL 70-105 (test luxv=775) CALCIUM (BEAKER) (test 8.6 mg/dL 8.4-10.2 rmsp=793) EGFR (BEAKER) (test 66 mL/min/1.73 sq m ESTIMATED GFR IS NOT pskp=5803) ACCURATE CREATININE CLEARANCE IN PREDICTING GLOMERULAR FILTRATION RATE. ESTIMATED GFR IS NOT APPLICABLE FOR DIALYSIS PATIENTS. CBC (HEMOGRAM ONLY)2018-01-28 07:17:00 Test Item Value Reference Range Comments WHITE BLOOD CELL COUNT (BEAKER) (test bwxe=110) 5.4 K/ L 3.5-10.5 RED BLOOD CELL COUNT (BEAKER) (test ovri=507) 3.83 M/ L 4.63-6.08 HEMOGLOBIN (BEAKER) (test fcbg=474) 9.6 GM/DL 13.7-17.5 HEMATOCRIT (BEAKER) (test nzjj=818) 31.1 % 40.1-51.0 MEAN CORPUSCULAR VOLUME (BEAKER) (test ziiu=212) 81.2 fL 79.0-92.2 MEAN CORPUSCULAR HEMOGLOBIN (BEAKER) (test 25.1 pg 25.7-32.2 rayx=761) MEAN CORPUSCULAR HEMOGLOBIN CONC (BEAKER) (test 30.9 GM/DL 32.3-36.5 iuwo=558) RED CELL DISTRIBUTION WIDTH (BEAKER) (test 18.7 % 11.6-14.4 asbu=596) PLATELET COUNT (BEAKER) (test dfej=151) 167 K/CU MM 150-450 MEAN PLATELET VOLUME (BEAKER) (test fdek=162) 9.4 fL 9.4-12.4 NUCLEATED RED BLOOD CELLS (BEAKER) (test 0 /100 WBC 0-0 rfdi=346) PROTHROMBIN [id number] 14:15:00 Test Item Value Reference Range Comments PROTIME (BEAKER) (test mnol=781) 14.8 seconds 11.7-14.7 INR (BEAKER) (test iwqj=860) 1.2 <=5.9 RECOMMENDED COUMADIN/WARFARIN INR THERAPY RANGESSTANDARD DOSE: 2.0 - 3.0 Includes: PROPHYLAXIS forvenous thrombosis, systemic embolization; TREATMENT for venous thrombosis and/or pulmonary embolus.HIGH RISK: Target INR is 2.5-3.5 for patients with mechanical heart valves.Within 24 hours, if on CoumadinBASIC METABOLIC [id number] 06:41:00 Test Item Value Reference Range Comments SODIUM (BEAKER) (test 131 meq/L 136-145 pzmb=923) POTASSIUM (BEAKER) (test 3.8 meq/L 3.5-5.1 ubcg=518) CHLORIDE (BEAKER) (test 96 meq/L 98-107 bire=303) CO2 (BEAKER) (test 28 meq/L 22-29 luco=041) BLOOD UREA NITROGEN 9 mg/dL 7-21 (BEAKER) (test jefh=371) CREATININE (BEAKER) (test 0.95 mg/dL 0.57-1.25 nwgk=046) GLUCOSE RANDOM (BEAKER) 110 mg/dL 70-105 (test hqqw=196) CALCIUM (BEAKER) (test 8.4 mg/dL 8.4-10.2 yhim=742) EGFR (BEAKER) (test 77 mL/min/1.73 sq m ESTIMATED GFR IS NOT vvvn=2179) ACCURATE CREATININE CLEARANCE IN PREDICTING GLOMERULAR FILTRATION RATE. ESTIMATED GFR IS NOT APPLICABLE FOR DIALYSIS PATIENTS. CBC (HEMOGRAM ONLY)2017-12-10 05:53:00 Test Item Value Reference Range Comments WHITE BLOOD CELL COUNT (BEAKER) (test zubk=540) 8.3 K/ L 3.5-10.5 RED BLOOD CELL COUNT (BEAKER) (test vilb=595) 3.40 M/ L 4.63-6.08 HEMOGLOBIN (BEAKER) (test tqoy=132) 8.3 GM/DL 13.7-17.5 HEMATOCRIT (BEAKER) (test fmzk=456) 27.9 % 40.1-51.0 MEAN CORPUSCULAR VOLUME (BEAKER) (test fukp=059) 82.1 fL 79.0-92.2 MEAN CORPUSCULAR HEMOGLOBIN (BEAKER) (test 24.4 pg 25.7-32.2 ahgg=102) MEAN CORPUSCULAR HEMOGLOBIN CONC (BEAKER) (test 29.7 GM/DL 32.3-36.5 dgtn=808) RED CELL DISTRIBUTION WIDTH (BEAKER) (test 20.0 % 11.6-14.4 sbtz=152) PLATELET COUNT (BEAKER) (test mrkw=445) 276 K/CU MM 150-450 MEAN PLATELET VOLUME (BEAKER) (test cqjv=117) 10.2 fL 9.4-12.4 NUCLEATED RED BLOOD CELLS (BEAKER) (test 0 /100 WBC 0-0 fwpf=925) BLOOD GAS, [id number] 10:39:00 Test Item Value Reference Range Comments PH ARTERIAL (BEAKER) (test utni=187) 7.33 7.35-7.45 PCO2 ARTERIAL (BEAKER) (test cfgt=885) 48 mmHg 35-45 PO2 ARTERIAL (BEAKER) (test xfur=706) 198 mmHg 80-90 O2 SATURATION ARTERIAL (BEAKER) (test eedt=493) 99.3 % 96.0-97.0 HCO3 ARTERIAL (BEAKER) (test nijw=340) 25 mmol/L 21-29 BASE EXCESS ARTERIAL (BEAKER) (test bmjo=292) -1.5 mmol/L -2.0-3.0 PATIENT TEMPERATURE (BEAKER) (test dzam=6608) 36.2 C FIO2 (BEAKER) (test ozuu=7383) 46.0 % SODIUM NA-STAT [id number] 10:39:00 Test Item Value Reference Range Comments SODIUM (BEAKER) (test nfse=731) 131 meq/L 135-148 POTASSIUM-STAT [id number] 10:39:00 Test Item Value Reference Range Comments POTASSIUM (BEAKER) (test jgle=276) 3.1 meq/L 3.6-5.5 GLUCOSE-STAT [id number] 10:39:00 Test Item Value Reference Range Comments GLUCOSE RANDOM (BEAKER) (test vouv=554) 121 mg/dL 70-110 HGB/HCT (H&H) - STAT [id number] 10:39:00 Test Item Value Reference Range Comments HEMOGLOBIN (BEAKER) (test psdd=203) 8.1 g/dL 13.0-16.8 HEMATOCRIT (BEAKER) (test yyon=364) 24.0 % 40.0-50.0 [id number] 10:10:00 Test Item Value Reference Range Comments ACTIVATED CLOTTING TIME [address] [facility] [address] [facility] (BEAKER) (test obsp=715) [facility] [address] CBC (HEMOGRAM ONLY)2017-12-05 06:51:00 Test Item Value Reference Range Comments WHITE BLOOD CELL COUNT (BEAKER) (test dcue=891) 6.4 K/ L 3.5-10.5 RED BLOOD CELL COUNT (BEAKER) (test hfqv=352) 3.63 M/ L 4.63-6.08 HEMOGLOBIN (BEAKER) (test oafo=860) 9.0 GM/DL 13.7-17.5 HEMATOCRIT (BEAKER) (test qxbr=021) 30.4 % 40.1-51.0 MEAN CORPUSCULAR VOLUME (BEAKER) (test gana=815) 83.7 fL 79.0-92.2 MEAN CORPUSCULAR HEMOGLOBIN (BEAKER) (test 24.8 pg 25.7-32.2 agya=362) MEAN CORPUSCULAR HEMOGLOBIN CONC (BEAKER) (test 29.6 GM/DL 32.3-36.5 oxxl=390) RED CELL DISTRIBUTION WIDTH (BEAKER) (test 20.3 % 11.6-14.4 cczp=453) PLATELET COUNT (BEAKER) (test bxnn=843) 275 K/CU MM 150-450 MEAN PLATELET VOLUME (BEAKER) (test wzja=727) 9.8 fL 9.4-12.4 NUCLEATED RED BLOOD CELLS (BEAKER) (test 0 /100 WBC 0-0 qukl=742) BASIC METABOLIC [id number] 06:44:00 Test Item Value Reference Range Comments SODIUM (BEAKER) (test 134 meq/L 136-145 lraf=916) POTASSIUM (BEAKER) (test 4.1 meq/L 3.5-5.1 mxtz=943) CHLORIDE (BEAKER) (test 102 meq/L 98-107 zqis=311) CO2 (BEAKER) (test 24 meq/L 22-29 jgrs=078) BLOOD UREA NITROGEN 9 mg/dL 7-21 (BEAKER) (test null=469) CREATININE (BEAKER) (test 1.01 mg/dL 0.57-1.25 vigr=628) GLUCOSE RANDOM (BEAKER) 93 mg/dL 70-105 (test gbhi=766) CALCIUM (BEAKER) (test 8.7 mg/dL 8.4-10.2 zmwe=292) EGFR (BEAKER) (test 72 mL/min/1.73 sq m ESTIMATED GFR IS NOT kmff=7448) ACCURATE CREATININE CLEARANCE IN PREDICTING GLOMERULAR FILTRATION RATE. ESTIMATED GFR IS NOT APPLICABLE FOR DIALYSIS PATIENTS. [id number] 12:39:00 Test Item Value Reference Range Comments ACTIVATED CLOTTING TIME 136 sec TESTED AT [place] [id number] [facility] (BEAKER) (test atsf=663) [place] [address] [id number] 11:51:00 Test Item Value Reference Range Comments ACTIVATED CLOTTING TIME [address] [facility] [address] (BEAKER) (test nyvh=850) [place] [address] [id number] 09:21:00 Test Item Value Reference Range Comments ACTIVATED CLOTTING TIME [address] [facility] [address] [facility] (BEAKER) (test hldt=011) [place] [address] [id number] 08:58:00 Test Item Value Reference Range Comments ACTIVATED CLOTTING TIME 191 sec TESTED AT [place] [address] [facility] (BEAKER) (test msca=095) [facility] [address] CT, CTA [id number] 11:56:00Addendum BeginsREPORT STATUS:A Addendum: The images were reviewed with Dr. Hdz. There is a missing dictation, specifically, despite the aortic bypass surgery the [place] left common iliac artery is still patent [...] MDReport Verified Date/Time: 11/27/2017 11:56:33 Reading Location: [facility] P047 Cardiology MRIAddendum EndsAddendum BeginsREPORT STATUS:A ADDENDUM: Study [...] [place]arrow MDReport Verified Date/Time: 18:03:42 Reading Location: [facility] P048 Angio Body Reading RoomAddendum EndsFINAL REPORT CT [...] takeoff of the left renal artery with fnye-yk-whechhez stenosis identified. Arch vessel branching pattern is [...] 8.2 mm, respectively with mild tortuosity and xaya-ee-msqdefgj calcific atherosclerosis present. Right iliac limb is [...] dictated, however, the ordering physician is the MANAGER ADVANCED ACCOUNT MANAGER of the [facility] and therefore no recommendation would be necessary. [...] An addendum will be dictated by the Pension Consultant Radiologist regarding the nonvascular findings. Signed: Juwan Echols MDReport Verified Date/Time: 11/26/2017 16:25:25 Reading Location: [place] [address] Cardiology MRI Electronically signed by: JUWAN ECHOLS M.D. on 2017 11:56 AMCT, CTA, [id number] 11:56:00Addendum BeginsREPORT STATUS:A Addendum: The images were reviewed with Dr. Hdz. There is a missing dictation, specifically, despite the aortic bypass surgery the [place] left common iliac artery is still patent [...] MDReport Verified Date/Time: 11/27/2017 11:56:33 Reading Location: [place] [address] Cardiology MRIAddendum EndsAddendum BeginsREPORT STATUS:A ADDENDUM: Study [...] , PET-CT, or biopsy. Signed: Adryan Barrow MDRyuort Verified Date/Time: 18:03:42 Reading Location: [place] [id number] Angio Body Reading RoomAddendum EndsFINAL REPORT CT [...] takeoff of the left renal artery with ntui-xs-yzhalswk stenosis identified. Arch vessel branching pattern is [...] 8.2 mm, respectively with mild tortuosity and twpy-jx-jreyzrql calcific atherosclerosis present. Right iliac limb is [...] dictated, however, the ordering physician is the MANAGER ADVANCED ACCOUNT MANAGER of the [facility] and therefore no recommendation would be necessary. [...] An addendum will be dictated by the Pension Consultant Radiologist regarding the nonvascular findings. Signed: Juwan Echols MDReport Verified Date/Time: 11/26/2017 16:25:25 Reading Location: [place] [address] Cardiology MRI Electronically signed by: JUWAN ECHOLS M.D. on 2017 11:56 AMB-TYPE NATRIURETIC FACTOR (BNP)2017-11-26 18:03:00 Test Item Value Reference Range Comments B-TYPE NATRIURETIC PEPTIDE (BEAKER) (test 142 pg/mL 0-100 gits=125) COMPREHENSIVE METABOLIC [id number] 17:56:00 Test Item Value Reference Range Comments TOTAL PROTEIN (BEAKER) 6.8 gm/dL 6.0-8.3 (test bbxk=039) ALBUMIN (BEAKER) (test 3.9 g/dL 3.5-5.0 cqrv=4909) ALKALINE PHOSPHATASE 133 U/L 40-150 (BEAKER) (test iqui=404) BILIRUBIN TOTAL (BEAKER) 0.4 mg/dL 0.2-1.2 (test gfva=433) SODIUM (BEAKER) (test 135 meq/L 136-145 esri=798) POTASSIUM (BEAKER) (test 4.3 meq/L 3.5-5.1 haee=967) CHLORIDE (BEAKER) (test 99 meq/L 98-107 whcl=477) CO2 (BEAKER) (test 26 meq/L 22-29 nzsd=586) BLOOD UREA NITROGEN 6 mg/dL 7-21 (BEAKER) (test kfcw=213) CREATININE (BEAKER) (test 1.14 mg/dL 0.57-1.25 nptr=631) GLUCOSE RANDOM (BEAKER) 104 mg/dL 70-105 (test kkgy=048) CALCIUM (BEAKER) (test 8.9 mg/dL 8.4-10.2 guei=583) AST (SGOT) (BEAKER) (test 12 U/L 5-34 jmqi=181) ALT (SGPT) (BEAKER) (test 7 U/L 6-55 peau=592) EGFR (BEAKER) (test 63 mL/min/1.73 sq m ESTIMATED GFR IS NOT ussx=2632) ACCURATE CREATININE CLEARANCE IN PREDICTING GLOMERULAR FILTRATION RATE. ESTIMATED GFR IS NOT APPLICABLE FOR DIALYSIS PATIENTS. PROTHROMBIN [id number] 17:33:00 Test Item Value Reference Range Comments PROTIME (BEAKER) (test bsgz=520) 16.5 seconds 11.7-14.7 INR (BEAKER) (test nums=458) 1.3 <=5.9 RECOMMENDED COUMADIN/WARFARIN INR THERAPY RANGESSTANDARD DOSE: 2.0 - 3.0 Includes: PROPHYLAXIS forvenous thrombosis, systemic embolization; TREATMENT for venous thrombosis and/or pulmonary embolus.HIGH RISK: Target INR is 2.5-3.5 for patients with mechanical heart valves.CBC W/PLT COUNT & AUTO [id number] 17:24:00 Test Item Value Reference Range Comments WHITE BLOOD CELL COUNT (BEAKER) (test cins=008) 7.7 K/ L 3.5-10.5 RED BLOOD CELL COUNT (BEAKER) (test wmjh=398) 3.66 M/ L 4.63-6.08 HEMOGLOBIN (BEAKER) (test eklz=858) 9.1 GM/DL 13.7-17.5 HEMATOCRIT (BEAKER) (test iqel=077) 31.7 % 40.1-51.0 MEAN CORPUSCULAR VOLUME (BEAKER) (test eoct=504) 86.6 fL 79.0-92.2 MEAN CORPUSCULAR HEMOGLOBIN (BEAKER) (test 24.9 pg 25.7-32.2 ifup=039) MEAN CORPUSCULAR HEMOGLOBIN CONC (BEAKER) (test 28.7 GM/DL 32.3-36.5 uwzp=680) RED CELL DISTRIBUTION WIDTH (BEAKER) (test 19.5 % 11.6-14.4 vzul=620) PLATELET COUNT (BEAKER) (test wjkj=536) 243 K/CU MM 150-450 MEAN PLATELET VOLUME (BEAKER) (test tfpf=698) 10.0 fL 9.4-12.4 NUCLEATED RED BLOOD CELLS (BEAKER) (test 0 /100 WBC 0-0 cfsu=245) NEUTROPHILS RELATIVE PERCENT (BEAKER) (test 73 % evdy=569) LYMPHOCYTES RELATIVE PERCENT (BEAKER) (test 13 % szox=240) MONOCYTES RELATIVE PERCENT (BEAKER) (test 9 % idfg=271) EOSINOPHILS RELATIVE PERCENT (BEAKER) (test 4 % cxuv=756) BASOPHILS RELATIVE PERCENT (BEAKER) (test 1 % fsli=822) NEUTROPHILS ABSOLUTE COUNT (BEAKER) (test 5.64 K/ L 1.78-5.38 oldq=569) LYMPHOCYTES ABSOLUTE COUNT (BEAKER) (test 0.98 K/ L 1.32-3.57 lxub=239) MONOCYTES ABSOLUTE COUNT (BEAKER) (test 0.69 K/ L 0.30-0.82 cmwv=987) EOSINOPHILS ABSOLUTE COUNT (BEAKER) (test 0.30 K/ L 0.04-0.54 fyid=374) BASOPHILS ABSOLUTE COUNT (BEAKER) (test 0.05 K/ L 0.01-0.08 egai=373) IMMATURE GRANULOCYTES-RELATIVE PERCENT (BEAKER) 0 % 0-1 (test pvjp=6759) [id number] 12:34:00 Test Item Value Reference Range Comments POC-CREATININE (BEAKER) 1.1 mg/dL 0.6-1.[address] [facility] [address] [facility] (test ddtw=7624) [facility] [address] POC-EGFR (BEAKER) (test 65 mL/min/1.73M2 udnt=5697)
--- OUTSIDE RECORDS SUMMARY | 2018-03-05 19:11 | XMS REPORT ---
:1945 Author Organization eClinicalWorks Care Team Providers Name Role Phone Home [place] Provider Role Unavailable Allergies No Known Allergies Problems Problem Type Condition Code Onset Dates Condition Status Assessment Need for home health care Z74.2 Active Assessment Health longterm, active care Z78.9 Active coordination Assessment Gastrointestinal [...] Status Dosage System Date Date ProAir HFA [facility] 2] 44408264500 108 (90 Base) Active 2 puffs as MCG/ACT needed Inhalation every 6 hrs Prilosec [facility] 2] 35858002748 20 MG Orally Active 1 capsule Once a day Lipitor [facility] 2] 85631988135 10 MG Orally Active 1 tablet Once a day Vitamin D3 [facility] [place]NOTE 2] 49548854122 400 UNIT Orally Active 2 tablets Once a day Aspir-81 [facility] [place]NOTE 2[facility] 46556063577 81 MG Orally Active 1 tablet Once a day Topamax [facility] [place]NOTE 2] 99173750046 25 MG Orally Active 1 tablet Once a day Breo Ellipta [facility] [place]NOTE 2] 17911601879 200-25 MCG/INH Active 1 puff Inhalation Once a day Lisinopril [facility]NOTE 2] 79725593271 40 MG Orally Active 1 tablet Once a day Warfarin Sodium [facility] [place]NOTE 2] 80688567583 7.5 MG Orally Active 1 tablet Once a day Clonidine HCl [facility] [place]NOTE 2] 70412068335 0.1 MG Orally Active 1 tablet Twice a day at bedtime Amitriptyline HCl [facility] [place] 2] 13279387441 50 MG Orally Active 1 tablet Once a day Zanaflex [facility] [place]NOTE 2] 01188600128 4 MG Orally Active 1 tablet Three times a as needed day Primidone [facility] [place]NOTE 2] 59601244603 250 MG Orally Active 1 tablet Three times a day Norvasc [facility]NOTE 2] 46819042207 5 MG Orally Active 1 tablet Once a day Results No Known Results Summary Purpose eClinicalWorks Submission
--- OUTSIDE RECORDS SUMMARY | 2018-03-05 19:11 | XMS REPORT ---
:1945 Author Organization eClinicalWorks Care Team Providers Name Role Phone Horace DeL a Cruzh Provider Role Unavailable Allergies No Known [...]
--- OUTSIDE RECORDS SUMMARY | 2018-03-05 19:12 | XMS REPORT ---
[...] Start Date End Date Status Dosage Lipitor [facility] 93035920204 10 MG Orally Once Active 1 tablet a day Results No Known Results Summary Purpose eClinicalWorks Submission
--- OUTSIDE RECORDS SUMMARY | 2018-03-05 19:12 | XMS REPORT ---
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7 Active Problem Insomnia G47.00 Active Problem Occlusion and stenosis of carotid I65.29 Active artery Problem 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 Problem Peripheral vascular disease I73.9 Active Problem Generalized weakness R53.1 Active Problem Gastrointestinal hemorrhage, K92.2 Active unspecified gastrointestinal hemorrhage type Problem Anemia in chronic illness D63.8 Active Problem Physical debility R53.81 Active Assessment Benign essential HTN I10 Active Problem Hyperlipidemia, mixed E78.2 Active Problem Chronic obstructive pulmonary J44.9 Active disease Problem Vitamin D deficiency E55.9 Active Problem Benign essential HTN I10 Active Problem 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
--- OUTSIDE RECORDS SUMMARY | 2018-03-05 19:12 | XMS REPORT ---
[...] Start Date End Date Status Dosage Lisinopril [facility] 01937373945 40 MG Orally Once Active 1 tablet a day Results No Known Results Summary Purpose eClinicalWorks Submission
--- OUTSIDE RECORDS SUMMARY | 2018-03-05 19:12 | XMS REPORT ---
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
--- OUTSIDE RECORDS SUMMARY | 2018-03-05 19:12 | XMS REPORT ---
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
--- OUTSIDE RECORDS SUMMARY | 2018-03-05 19:12 | XMS REPORT ---
[...] Dosage System Date Date Amitriptyline HCl [facility] 41674715849 50 MG Orally Active 1 tablet Once a day Results No Known Results Summary Purpose eClinicalWorks Submission
--- OUTSIDE RECORDS SUMMARY | 2018-03-05 19:12 | XMS REPORT ---
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 Assessment Chronic obstructive pulmonary J44.9 Active disease Problem H/O TIA (transient ischemic attack) Z86.73 Active and stroke Problem H/O fall Z91.81 Active Problem Nicotine dependence F17.200 Active Problem Aortic aneurysm, abdominal I71.4 Active Problem Anemia, unspecified type D64.9 Active Problem Watery diarrhea R19.7 Active Problem 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 Assessment Benign essential HTN I10 Active Problem Generalized weakness R53.1 Active Assessment Peripheral vascular disease I73.9 Active Problem Gastrointestinal hemorrhage, K92.2 Active unspecified gastrointestinal hemorrhage type Assessment Generalized weakness R53.1 Active Problem Anemia in chronic illness D63.8 Active Assessment Physical debility R53.81 Active Problem Physical debility R53.81 Active Assessment Hyperlipidemia, mixed E78.2 Active Assessment Anemia, unspecified type D64.9 Active Assessment Watery diarrhea R19.7 Active Assessment Thoracic aortic aneurysm without I71.2 Active rupture Assessment 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 Assessment Aortic aneurysm, abdominal I71.4 Active Assessment Hypercoagulable state D68.59 Active Medications Medication Code Code Instructions Start End Status Dosage System Date Date Amitriptyline HCl [facility] 96972621418 50 MG Orally Active 1 tablet Once a day Clonidine HCl [facility] 50407158217 0.1 MG Orally Active 1 tablet Twice a day at bedtime Aspir-[address] [facility] 37409884876 81 MG Orally Active 1 tablet Once a day Topamax [facility] 20633563023 25 MG Orally Active 1 tablet Once a day Plavix [facility] 47437980467 75 MG Orally Active 1 tablet Once a day Lisinopril [facility] 26873150073 40 MG Orally Active 1 tablet Once a day ProAir HFA [facility] 94030224357 108 (90 Base) Active 2 puffs as MCG/ACT needed Inhalation every [address] [facility] 40737637568 40 MG Orally Active 1 tablet Once a day Prilosec [facility] 03188871421 20 MG Orally Active 1 capsule Once a day Breo Ellipta [facility] 43440377160 200-25 MCG/INH Active 1 puff Inhalation Once a day Warfarin Sodium [facility] 25383226466 7.5 MG Orally Active 1 tablet Once a day Zanaflex [facility] 77809464726 4 MG Orally Active 1 tablet Three times a as needed day Primidone [facility] 18205125333 250 MG Orally Active 1 tablet Three times a day Lipitor [facility] 83074335974 10 MG Orally Active 1 tablet Once a day Norvasc [facility] 50701626658 5 MG Orally Active 1 tablet Once a day Vitamin D3 [facility] 28856360010 400 UNIT Orally Active 2 tablets Once a day Results No Known Results Summary Purpose eClinicalWorks Submission
--- OUTSIDE RECORDS SUMMARY | 2018-03-05 19:13 | XMS REPORT ---
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 Problem H/O TIA (transient ischemic attack) Z86.73 Active and stroke Assessment Chronic obstructive pulmonary J44.9 Active disease Problem H/O fall Z91.81 Active Problem Nicotine dependence F17.200 Active Problem Aortic aneurysm, abdominal I71.4 Active Problem Anemia, unspecified type D64.9 Active Problem Watery diarrhea R19.7 Active Problem 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 Assessment Peripheral vascular disease I73.9 Active Problem Generalized weakness R53.1 Active Assessment Hypercoagulable state D68.59 Active Problem Gastrointestinal hemorrhage, K92.2 Active unspecified gastrointestinal hemorrhage type Assessment Generalized weakness R53.1 Active Problem Anemia in chronic illness D63.8 Active Assessment Physical debility R53.81 Active Problem Physical debility R53.81 Active Assessment Hyperlipidemia, mixed E78.2 Active Assessment Benign essential HTN I10 Active Assessment Anemia, unspecified type D64.9 Active Assessment 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 Assessment Aortic aneurysm, abdominal I71.4 Active Assessment Thoracic aortic aneurysm without I71.2 Active rupture Medications Medication Code Code Instructions Start End Status Dosage System Date Date Breo Ellipta [facility] 82481898322 200-25 MCG/INH Active 1 puff Inhalation Once a day Carvedilol [facility] 81148011972 12.5 MG Orally Active as BID directed Aspir-[address] [facility] 04404411671 81 MG Orally Active 1 tablet Once a day Prilosec [facility] 46433135895 20 MG Orally Active 1 capsule Once a day Lasix [facility] 67542723913 40 MG Orally Active 1 tablet Once a day Norvasc [facility] 77557126328 5 MG Orally Inactive 1 tablet Once a day ProAir HFA [facility] 42084358800 108 (90 Base) Active 2 puffs as MCG/ACT needed Inhalation every 6 hrs Primidone [facility] 47642085529 250 MG Orally Active 1 tablet Three times a day Zanaflex [facility] 74369293559 4 MG Orally Active 1 tablet Three times a as needed day Vitamin D3 [facility] 09494640466 400 UNIT Orally Active 2 tablets Once a day Lisinopril [facility] 73753359438 40 MG Orally Active 1 tablet Once a day Clonidine HCl [facility] 05237010029 0.1 MG Orally Active 1 tablet Twice a day at bedtime Topamax [facility] 96010497252 25 MG Orally Active 1 tablet Once a day Plavix [facility] 09513032991 75 MG Orally Active 1 tablet Once a day Amitriptyline [facility] 09292694148 50 MG Orally Active 1 tablet HCl Once a day Lipitor [facility] 22573455545 10 MG Orally Active 1 tablet Once a day Warfarin Sodium [facility] 08315691655 3 MG Orally Active 3 tablet Once a day Results No Known Results Summary Purpose eClinicalWorks Submission
[2018-03-05 21:13] LABS: Absolute Lymphocytes (CBC) 1.1 K/uL (0.7-4.9); Absolute Monocytes 0.6 K/uL (0.1-1.3); Absolute Neutrophil 4.4 K/uL (1.8-8.0); Eosinophils % 4.6 % (0-4.4); Hematocrit 33.2 % (39.6-49.0); Lymphocytes % 16.6 % (15.3-44.8); MCH 27.5 pg (27.0-35.0); MCV 82.3 fL (80-100); Monocytes % 9.2 % (3.3-12.3); RBC Red Blood Cell Count 4.03 M/uL (4.33-5.43)
[2018-03-05 21:39] LABS: Potassium 3.7 mmol/L (3.5-5.1)
--- NOTE | 2018-03-05 22:02 | ER ---
Nurse's Notes [facility] Name: Pineda Mckeon Age: 73 yrs Sex: Male : 1945 Arrival Date: 03/05/2018 Time: 19:05 Bed 15 Private MD: Home De La Cruz Diagnosis: Abscess right groin. S/P right groin surgery Presentation: 03/05 19:48 Presenting complaint: Patient states: "I have an infection in my groin right on top of aj1 where I had a surgery a month ago. They had to open up a vein that was clogged." Daughter reports that he has been having pain to the area, his home health nurse said that it was open and draining and told him to come to the emergency room for treatment. Denies fever. Transition of care: patient was not received from another setting of care. Onset of symptoms was March 05, 2018. Risk Assessment: Do you want to hurt yourself or someone else? Patient reports no desire to harm self or others. Initial Sepsis Screen: Does the patient meet any 2 criteria? No. Patient's initial sepsis screen is negative. Does the patient have a suspected source of infection? No. Patient's initial sepsis screen is negative. Care prior to arrival: None. 19:48 Method Of Arrival: Wheelchair aj1 19:48 Acuity: NORY 3 aj1 Triage Assessment: 19:51 General: Appears in no apparent distress. comfortable, Behavior is calm, cooperative, aj1 appropriate for age. Pain: Denies pain. Neuro: Level of Consciousness is awake, alert, obeys commands. Cardiovascular: Patient's skin is warm and dry. Respiratory: Airway is patent Respiratory effort is even, unlabored, Respiratory pattern is regular, symmetrical. Historical: - Allergies: 19:51 No Known Allergies; aj1 - Home Meds: 19:51 amitriptyline 100 mg Oral tab 1 tab nightly [Active]; aspirin 81 mg Oral TbEC 1 tab aj1 once daily [Active]; Breo Ellipta 200-25 mcg/dose inhalation dsdv 1 puff once daily [Active]; clonidine HCl 0.1 mg Oral tab 1 tab 4 times per day [Active]; fentanyl 100 mcg/hr Topical pt72 1 patch every 72 hours [Active]; hydrocodone-acetaminophen 10-325 mg Oral tab 1 tab every 6 hours [Active]; Lasix Oral [Active]; Lipitor 10 mg Oral tab 1 tab once daily [Active]; lisinopril 40 mg Oral tab 1 tab once daily [Active]; Plavix 75 mg Oral tab [Active]; tizanidine 4 mg Oral tab 2 2-4 tabs daily [Active]; topiramate 25 mg Oral CSpX 1 cap once daily [Active]; Vitamin B-12 1,000 mcg Oral tab daily [Active]; Vitamin D Oral 5000 mcg daily [Active]; warfarin 9 mg Oral tab 1 tab once daily [Active]; - PMHx: 19:51 AAA; blood clot in right groin; Bypass Bilateral Legs; clotting disorder; COPD; CVA; aj1 Degenerative disc disease; Hypertension; Right Arm; TIA; - Immunization history:: Flu vaccine is up to date. - Social history:: Smoking status: Patient/guardian denies using tobacco. - Ebola Screening: : Patient denies travel to an Ebola-affected area in the 21 days before illness onset. Screenin:56 Abuse screen: Denies threats or abuse. Denies injuries from another. Nutritional bp screening: No deficits noted. Tuberculosis screening: No symptoms or risk factors identified. Fall Risk None identified. Assessment: 20:40 General: Appears in no apparent distress. comfortable, Behavior is calm, cooperative, bp appropriate for age. Pain: Complains of pain in right femoral area. Neuro: Level of Consciousness is awake, alert, obeys commands, Oriented to person, place, time, situation, Appropriate for age. Cardiovascular: No deficits noted. Respiratory: Airway is patent Respiratory effort is even, unlabored, Respiratory pattern is regular, symmetrical. GI: No signs and/or symptoms were reported involving the gastrointestinal system. : No signs and/or symptoms were reported regarding the genitourinary system. EENT: No deficits noted. Derm: Skin is dry, Skin is pink, warm \\T\\ dry. Musculoskeletal: No signs and/or symptoms reported regarding the musculoskeletal system. Circulation, motion, and sensation intact. Range of motion: intact in all extremities. 21:15 Reassessment: U/S PENDING, INITIAL LABS UNREMARKABLE. bp 23:30 Reassessment: ADMIT ON HOLD FOR ER EVAL BY EMY. bp 03/06 00:23 Reassessment: PT SEEN BY DR QUEVEDO, AWAITING SURGERY RECOMMENDATION. bp 00:41 Reassessment: PT CLEARED FOR ADMIT BY SURGEON. PT FRANCOIS. bp Vital Signs: 03/05 19:51 BP 152 / 83; Pulse 63; Resp 18; Temp 97.4(O); Pulse Ox 98% on R/A; Weight 77.56 kg; aj1 Height 5 ft. 7 in. (170.18 cm); Pain 0/10; 21:15 BP 171 / 80; Pulse 62; Resp 14; Pulse Ox 98% ; bp 22:00 BP 185 / 85; Pulse 62; Resp 14; Pulse Ox 98% ; bp 19:51 Body Mass Index 26.78 (77.56 kg, 170.18 cm) aj1 ED Course: 19:05 Patient arrived in ED. es 19:07 Home De La Cruz DO is Private Physician. es 19:49 Triage completed. aj1 19:51 Arm band placed on Patient placed in waiting room, Patient notified of wait time. aj1 20:36 Glenn Ngo MD is Attending Physician. pkl 20:40 Lul Good RN is Primary Nurse. bp 20:55 Patient has correct armband on for positive identification. Placed in gown. Bed in low bp position. Call light in reach. Side rails up X2. Adult w/ patient. 21:34 Ultrasound completed. Patient tolerated well. Notified ED Physician dave. aa4 21:59 US Extrmty Nonvasular Limited In Process Unspecified. EDMS 22:00 Rosario Johnson MD is Hospitalizing Provider. pkl 23:02 Inserted 18 gauge 10 cm midline to right upper brachial vein on first attempt. Line fc with good blood return and flushes well. 23:29 No provider procedures requiring assistance completed. Patient admitted, IV remains in bp place. Administered Medications: No medications were administered Outcome: 22:01 Decision to Hospitalize by Provider. pkl 23:29 Condition: stable bp 23:29 Instructed on the need for admit. 23:35 Admitted to Tele accompanied by tech, family with patient, via stretcher, room 408, bp with chart, Report called to DUDLEY JARRELL 03/06 00:42 Patient left the ED. bp Signatures: Dispatcher [employer] EDNM Yen Cordon RN RN aj1 Glenn Ngo MD MD pkHillary Hudson Felicia, RN RN fc Frazier, Miriam aa4 Lul Good, RN RN bp
--- NOTE | 2018-03-05 22:03 | EDPHYS ---
Physician Documentation [facility] Name: Pineda Mckeon Age: 73 yrs Sex: Male : 1945 Arrival Date: 03/05/2018 Time: 19:05 Bed 15 Private MD: [facility] ED Physician Glenn Ngo HPI: 03/05 20:49 This 73 yrs old Male presents to ER via Wheelchair with complaints of pkl INFECTION OF SURGICAL SITE. 20:49 The patient presents with an abscess of the right groin. Onset: The symptoms/episode pkl began/occurred 3 day(s) ago. Patient had surgery right groin for blood clot in the femoral artery about 1 month ago.. Historical: - Allergies: 19:51 No Known Allergies; aj1 - Home Meds: 19:51 amitriptyline 100 mg Oral tab 1 tab nightly [Active]; aspirin 81 mg Oral TbEC 1 tab aj1 once daily [Active]; Breo Ellipta 200-25 mcg/dose inhalation dsdv 1 puff once daily [Active]; clonidine HCl 0.1 mg Oral tab 1 tab 4 times per day [Active]; fentanyl 100 mcg/hr Topical pt72 1 patch every 72 hours [Active]; hydrocodone-acetaminophen 10-325 mg Oral tab 1 tab every 6 hours [Active]; Lasix Oral [Active]; Lipitor 10 mg Oral tab 1 tab once daily [Active]; lisinopril 40 mg Oral tab 1 tab once daily [Active]; Plavix 75 mg Oral tab [Active]; tizanidine 4 mg Oral tab 2 2-4 tabs daily [Active]; topiramate 25 mg Oral CSpX 1 cap once daily [Active]; Vitamin B-12 1,000 mcg Oral tab daily [Active]; Vitamin D Oral 5000 mcg daily [Active]; warfarin 9 mg Oral tab 1 tab once daily [Active]; - PMHx: 19:51 AAA; blood clot in right groin; Bypass Bilateral Legs; clotting disorder; COPD; CVA; aj1 Degenerative disc disease; Hypertension; Right Arm; TIA; - Immunization history:: Flu vaccine is up to date. - Social history:: Smoking status: Patient/guardian denies using tobacco. - Ebola Screening: : Patient denies travel to an Ebola-affected area in the 21 days before illness onset. ROS: 20:49 Eyes: Negative for injury, pain, redness, and discharge, ENT: Negative for injury, pkl pain, and discharge, Neck: Negative for injury, pain, and swelling, Cardiovascular: Negative for chest pain, palpitations, and edema, Respiratory: Negative for shortness of breath, cough, wheezing, and pleuritic chest pain, Abdomen/GI: Negative for abdominal pain, nausea, vomiting, diarrhea, and constipation, Back: Negative for injury and pain, : Negative for injury, bleeding, discharge, and swelling, MS/Extremity: Negative for injury and deformity, Neuro: Negative for headache, weakness, numbness, tingling, and seizure. 20:49 Skin: Positive for abscess, of the right groin. Exam: 20:49 Head/Face: Normocephalic, atraumatic. Eyes: Pupils equal round and reactive to light, pkl extra-ocular motions intact. Lids and lashes normal. Conjunctiva and sclera are non-icteric and not injected. Cornea within normal limits. Periorbital areas with no swelling, redness, or edema. ENT: Nares patent. No nasal discharge, no septal abnormalities noted. Tympanic membranes are normal and external auditory canals are clear. Oropharynx with no redness, swelling, or masses, exudates, or evidence of obstruction, uvula midline. Mucous membranes moist. Neck: Trachea midline, no thyromegaly or masses palpated, and no cervical lymphadenopathy. Supple, full range of motion without nuchal rigidity, or vertebral point tenderness. No Meningismus. Chest/axilla: Normal chest wall appearance and motion. Nontender with no deformity. No lesions are appreciated. Cardiovascular: Regular rate and rhythm with a normal S1 and S2. No gallops, murmurs, or rubs. Normal PMI, no JVD. No pulse deficits. Respiratory: Lungs have equal breath sounds bilaterally, clear to auscultation and percussion. No rales, rhonchi or wheezes noted. No increased work of breathing, no retractions or nasal flaring. Abdomen/GI: Soft, non-tender, with normal bowel sounds. No distension or tympany. No guarding or rebound. No evidence of tenderness throughout. Back: No spinal tenderness. No costovertebral tenderness. Full range of motion. Neuro: Awake and alert, GCS 15, oriented to person, place, time, and situation. Cranial nerves II-XII grossly intact. Motor strength 5/5 in all extremities. Sensory grossly intact. Cerebellar exam normal. Normal gait. 20:49 Skin: abscess, that is moderate sized, approximately 6 cm(s), of the right groin, with fluctuance, with induration. Vital Signs: 19:51 BP 152 / 83; Pulse 63; Resp 18; Temp 97.4(O); Pulse Ox 98% on R/A; Weight 77.56 kg; aj1 Height 5 ft. 7 in. (170.18 cm); Pain 0/10; 21:15 BP 171 / 80; Pulse 62; Resp 14; Pulse Ox 98% ; bp 22:00 BP 185 / 85; Pulse 62; Resp 14; Pulse Ox 98% ; bp 19:51 Body Mass Index 26.78 (77.56 kg, 170.18 cm) aj1 MDM: 20:36 Patient medically screened. pkl 21:59 Data reviewed: vital signs, nurses notes, lab test result(s), radiologic studies, pkl ultrasound. ED course: Talked to Dr. Vera. To admit to Hospitalist and he will consult. 03/05 20:46 Order name: CBC with Diff; Complete Time: 21:49 pkl 03/05 20:46 Order name: Chem 7; Complete Time: 21:49 pkl 03/05 20:46 Order name: Saline Lock; Complete Time: 21:23 pkl 03/05 21:18 Order name: US Extrmty Nonvasular Limited; Complete Time: 03:06 pkl Administered Medications: No medications were administered Disposition: 03/05/18 22:01 Hospitalization ordered by Rosario Johnson for Observation. Preliminary diagnosis is Abscess right groin. S/P right groin surgery. - Bed requested for Telemetry/MedSurg (observation). - Status is Observation. bp - Condition is Stable. - Problem is new. - Symptoms are unchanged. UTI on Admission? No Signatures: Dispatcher [employer] EDMS Yen Cordon RN RN aj1 Alysha Jacobs RN RN kl Glenn Ngo MD MD pkLul Aguilar RN RN bp Corrections: (The following items were deleted from the chart) 23:22 22:01 Hospitalization Ordered by Rosario Johnson MD for Observation. Preliminary kl diagnosis is Abscess right groin. S/P right groin surgery. Bed requested for Telemetry/MedSurg (observation). Status is Observation. Condition is Stable. Problem is new. Symptoms are unchanged. UTI on Admission? No. pkl 03/06 00:42 03/05 23:22 03/05/2018 22:01 Hospitalization Ordered by Rosario Johnson MD for bp Observation. Preliminary diagnosis is Abscess right groin. S/P right groin surgery. Bed requested for Telemetry/MedSurg (observation). Status is Observation. Condition is Stable. Problem is new. Symptoms are unchanged. UTI on Admission? No. kl
--- NOTE | 2018-03-05 22:11 | RAD REPORT ---
EXAM DESCRIPTION: US - Extremity Nonvascular Limited - 03/05/2018 9:59 pm CLINICAL HISTORY: abscess Groin infection COMPARISON: None TECHNIQUE: Real-time sonographic evaluation of the area of interest was performed. FINDINGS: Complex subcutaneous fluid collection is seen in the area of interest in the upper right t high/ groin region measuring 3.4 x 1.9 cm, likely representing subcutaneous abscess.
--- NOTE | 2018-03-05 22:51 | P.HP ---
Certification for Inpatient Patient admitted to: Inpatient With expected LOS: >2 Midnights Practitioner: I am a practitioner with admitting privileges, knowledge of patient current condition, hospital course, and medical plan of care. Services: Services provided to patient in accordance with Admission requirements found in Title 42 Section 412.3 of the Code of Federal Regulations Patient History Date of Service: 03/05/18 Reason for admission: Groin abscess History of Present Illness: Mr. Mckeon, is a 73-year-old male, with history of COPD, hypercoagulable state, peripheral vascular disease, CAD, bilateral fem-pop bypass, right groin endarterectomy recently done, who start about 2 days ago with redness discoloration, pain, and swelling in his right groin area, right above the surgical wound. He denied fever or chills. Home cares nurse tried to contact his surgeon, but he says that the patient has been discharged from [facility], and he needs to be evaluated with his PCP. The patient also states that the lesion is draining yellowish secretion. He also has 2 chronic ulcers in his right foot, which have been taking care in the wound Care Center by Dr. Pool. In ED, laboratory work showed normal WBC count, he is afebrile, in non-distress. Allergies No Known Allergies Allergy (Verified 10/24/17 00:11) Home medications list reviewed: Yes Home Medications: Cyanocobalamin (Vitamin B-12) [B-12] 1,000 mcg PO DAILY 07/13/16 Atorvastatin Calcium 1 tab PO DAILY 08/29/17 Topiramate 1 tab PO DAILY 08/29/17 Hydrocodone 10/APAP 325 [[place] 10/325*] 1 tab PO Q6H tab 09/17/17 Lisinopril [Prinivil*] 40 mg PO DAILY tab 09/17/17 fentaNYL [Fentanyl] 1 patch TD Q3D 10/24/17 Amitriptyline HCl 1 tab PO BEDTIME 12/31/17 Fluticasone/Vilanterol [Breo Ellipta 200-25 Mcg INH] 1 puff IH DAILY 12/31/17 Tizanidine HCl 2 - 4 tab PO DAILY PRN 12/31/17 Vit D3/Folic Acid/B2/B6/B12 [Folgard Tablet] 1 each PO DAILY 12/31/17 Warfarin Sodium [Coumadin*] 9 mg PO DAILY 12/31/17 cloNIDine HCl [Catapres*] 1 tab PO QID PRN 12/31/17 Furosemide 40 mg PO DAILY 01/01/18 Primidone [Mysoline *] 250 mg PO DAILY 01/01/18 - Past Medical/Surgical History Diabetic: No -: CAD -: PAD -: factor 5 clotting disorder -: COPD -: Recent history of subdural hematoma -: Chronic anti coagulation for arterial disease -: Chronic pain syndrome -: Peripheral vascular disease -: History of AAA repair -: Blood clot in the groin -: Degenerative disc disease -: Cholecystectomy -: CABGx3 -: AAA repair -: Hernia repair -: subdural hematoma surgery -: valve replacement Psychosocial/ Personal History: He currently lives with his daughter, has 5 children, he does not work. - Family History Mother -: Heart disease, Hypertension Father -: Heart disease, Other (see notes) Notes: Alzheimer's - Social History Smoking Status: Former smoker Alcohol use: No CD- Drugs: No Caffeine use: Yes Place of Residence: Home Review of Systems 10-point ROS is otherwise unremarkable Physical Examination - Physical Exam General: Alert, In no apparent distress HEENT: Atraumatic, PERRLA, Mucous membr. moist/pink, EOMI, Sclerae nonicteric Neck: Supple, 2+ carotid pulse no bruit, No LAD, Without JVD or thyroid abnormality Respiratory: Clear to auscultation bilaterally, Normal air movement Cardiovascular: Regular rate/rhythm, Normal S1 S2 Gastrointestinal: Normal bowel sounds, No tenderness Musculoskeletal: No tenderness Integumentary: Skin lesion (Right groin area), Tenderness/swelling, Erythema Neurological: Normal gait, Normal speech, Normal strength at 5/5 x4 extr, Normal tone, Normal affect Lymphatics: No axilla or inguinal lymphadenopathy - Studies Laboratory Data (last 24 hrs) 03/05/18 21:00: Sodium 136, Potassium 3.7, BUN 6 L, Creatinine 1.00, Glucose 105 03/05/18 21:00: WBC 6.4, Hgb 11.1 L, Hct 33.2 L, Plt Count 197 Assessment and Plan - Problems (Diagnosis) (1) Abscess Current Visit: Yes Status: Acute (2) Hypercoagulable state Onset Date: 09/15/17 Current Visit: No Status: Acute (3) CAD (coronary artery disease) of artery bypass graft Onset Date: 12/31/17 Current Visit: No Status: Chronic Qualifiers: [place] vs. transplanted heart: [place] heart Associated angina: without angina Qualified Code(s): I25.810 - Atherosclerosis of coronary artery bypass graft(s) without angina pectoris (4) COPD (chronic obstructive pulmonary disease) Onset Date: 07/14/16 Current Visit: No Status: Chronic Qualifiers: COPD type: chronic bronchitis Chronic bronchitis type: unspecified Qualified Code(s): J42 - Unspecified chronic bronchitis (5) Peripheral vascular disease Onset Date: 07/14/16 Current Visit: No Status: Chronic - Plan The patient will be admitted to the hospital due to right groin abscess. Right lower extremity Ultrasound is consistent with an abscess of 3.4 x 1.9 cm. Will start empiric treatment with IV vancomycin and Zosyn, Dr. Vera has been contacted, and he will perform I & D in a.m. Will keep the patient NPO after midnight, and start IV fluids. - Advance Directives Does patient have a Living Will: No Does patient have a Durable POA for Healthcare: No - Code Status/Comfort Care Code Status Assessed: Yes Code Status: Full Code
[2018-03-05] MEDS ORDERED: VANCOMYCIN 1 GM in NA CHLORIDE 0.9% 250 ML IVPB SCH (23:00)
[2018-03-06] MEDS ORDERED: ALBUTEROL 2.5 MG/3 ML NEB SOL NEB PRN (00:33)
[2018-03-06] MEDS ORDERED: ACETAMINOPHEN 500 MG TAB PO PRN (00:33)
[2018-03-06] MEDS ORDERED: ONDANSETRON 4 MG/2 ML VIAL IV PRN (00:33)
[2018-03-06] MEDS ORDERED: IPRATROPIUM BROM 0.5MG/2.5ML NEB PRN (00:33)
[2018-03-06 00:46] VITALS: BMI 24.9
[2018-03-06] MEDS ORDERED: PIPER/TAZO/NS 3.375gm 6.750 GM/200 ML BAG ONE (01:14)
[2018-03-06] MEDS ORDERED: VANCOMYCIN 1 GM/VIAL ONE (01:15)
[2018-03-06] MEDS: NA CHLORIDE 0.9% 1,000 ML IV SCH ×3 (01:20→17:16)
[2018-03-06] MEDS: PIPER/TAZO/NS 3.375gm 3.375 GM/100 ML BAG IVPB SCH ×3 (01:21→17:16)
[2018-03-06] MEDS ORDERED: KCL 20 MEQ/100 mL IVPB 20 MEQ/100 ML BAG IV SCH (02:00)
[2018-03-06] MEDS ORDERED: NA CHLORIDE 0.9% 250 ML ONE (02:31)
[2018-03-06 06:59] LABS: Albumin 2.5 g/dL (3.4-5.0); Bilirubin Total 0.3 mg/dL (0.2-1.0); Potassium 3.9 mmol/L (3.5-5.1); Protein, Total 6.3 g/dL (6.4-8.2)
--- NOTE | 2018-03-06 12:47 | P.PN ---
Subjective Date of Service: 03/06/18 Chief Complaint: Groin abscess And seen and examined at bedside with RN. Case discussed with general surgery. Currently patient is complaining of having some pain to the right groin area. Has had been having purulent discharge also noted to the area. Denies having any fever chills or any other associated symptoms at this time. Review of Systems General: As per HPI Physical Examination - Vital Signs Temperature: 97.6 F Blood Pressure: 158/85 Pulse: 65 Respirations: 18 Pulse Ox (%): 96 - Physical Exam General: Alert, In no apparent distress HEENT: Atraumatic, PERRLA, EOMI Neck: Supple, JVD not distended Respiratory: Clear to auscultation bilaterally, Normal air movement Cardiovascular: Regular rate/rhythm, Normal S1 S2 Gastrointestinal: Normal bowel sounds, No tenderness Musculoskeletal: No tenderness Integumentary: Skin lesion, Tenderness/swelling, Erythema (to the right Groin) Neurological: Normal speech, Normal tone, Normal affect Lymphatics: No axilla or inguinal lymphadenopathy - Studies Laboratory Data (last 24 hrs) 03/06/18 06:15: Magnesium 2.0 03/06/18 06:15: Sodium 139, Potassium 3.9, BUN 6 L, Creatinine 0.90, Glucose 93 , Total Bilirubin 0.3, AST 15, ALT 14, Alkaline Phosphatase 173 H 03/05/18 21:00: Sodium 136, Potassium 3.7, BUN 6 L, Creatinine 1.00, Glucose 105 03/05/18 21:00: WBC 6.4, Hgb 11.1 L, Hct 33.2 L, Plt Count 197 Medications List Reviewed: Yes Assessment & Plan - Problems (Diagnosis) (1) Abscess Current Visit: Yes Status: Acute Plan: Right Groin Abscess -Gen Surgery Consulted. -NPO for now for possible surgical Procedure -IV abx for now -Culture collected. 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 transplanted heart: [place] heart Associated angina: without angina Qualified Code(s): I25.810 - Atherosclerosis of coronary artery bypass graft(s) without angina pectoris (5) COPD (chronic obstructive pulmonary disease) Onset Date: 07/14/16 Current Visit: No Status: Chronic Qualifiers: COPD type: chronic bronchitis Chronic bronchitis type: unspecified Qualified Code(s): J42 - Unspecified chronic bronchitis (6) Chronic anticoagulation Onset Date: 07/14/16 Current Visit: No Status: Chronic (7) Chronic pain disorder Onset Date: 07/14/16 Current Visit: No Status: Chronic (8) Chronic renal disease Onset Date: 07/14/16 Current Visit: No Status: Chronic Qualifiers: Chronic kidney disease stage: stage 3 (moderate) Qualified Code(s): N18.3 - Chronic kidney disease, stage 3 (moderate) (9) Hypertension Onset Date: 07/14/16 Current Visit: No Status: Chronic Qualifiers: Hypertension type: essential hypertension Qualified Code(s): I10 - Essential (primary) hypertension Discharge Plan: Home Plan to discharge in: 24 Hours - Code Status/Comfort Care Code Status Assessed: Yes Critical Care: No
[2018-03-06] MEDS ORDERED: LIDOCAINE 1% 20 ML MDV SQ ONE (12:58)
[2018-03-06] MEDS ORDERED: LIDOCAINE VISCOUS 2% SOLN 15 ML UDC PO PRN (12:59)
--- NOTE | 2018-03-06 13:42 | P.BOP ---
Preoperative diagnosis: right groin abscess Postoperative diagnosis: same Primary procedure: Incision and drainage of right groin abscess Estimated blood loss: <5cc Specimen: pus Findings: pus Anesthesia: General Complications: None Drain(s): Other
[2018-03-06] MEDS: HYDROCODONE/APAP 5/325 MG TAB PO PRN ×2 (13:54→21:49)
[2018-03-06] MEDS ORDERED: LIDOCAINE 1% MPF 5 ML VIAL SQ ONE (14:00)
--- NOTE | 2018-03-06 15:46 | OP ---
Date of Procedure: 03/06/2018 Surgeon: Richard Vera MD Preoperative Diagnosis: Right groin abscess. Postoperative Diagnosis: Right groin abscess. Procedure: Incision and drainage of right groin abscess. Anesthesia: Local anesthetic, lidocaine 1% plain. Indications: This is the case of a 73-year-old patient with right groin abscess, need incision and d rainage. Benefits, alternatives, and risks of that fully explained to the patient, which include but are not limited to infection, bleeding, damage to adjacent structures, anesthesia complication, nonh ealing wound, [place], and even . He also understands this may not relieve any symptoms, he might ne ed more than one surgical intervention. He will require wound care. Signed a consent. Description Of Procedure: A time-out was called. The right groin was prepped and draped in a steril e fashion. Lidocaine 1% plain injected for local anesthetic, followed by sharp incision of the skin with an 11 blade. This follows immediately access to over the pus. The cavity was then irrigated. Pus was cultured and area was packed with wet-to-dry dressing. The patient tolerated the procedure w ell. The patient left in his room in stable condition. This patient may require more surgical inter vention, once we understand the area little bit better, we have some documentation from the hospital about what kind of surgery he had done before. We may clean this in the future if he needed, more extensive if needed. The patient understood that. NEERAJ/CAESAR Voice ID: [id number] Report ID: [id number]
--- NOTE | 2018-03-06 15:52 | CON ---
Date of Consultation: 03/05/2018 Once again the patient was seen on March 05, 2018 in the ER. Reason For Admission: Right groin cellulitis and abscess. Indications: This is a case of a 73-year-old patient with multiple medical history, history of sever e peripheral vascular disease. Recently from what I can get from the patient he has a thrombectomy f rom the right groin region done. I talked to the patient's family. They state there was no graft in that area. There was nothing there that it is foreign body. There is no bypass in that region. He does have a thrombectomy and then he developed this swelling eventually and trying to jason in with discoloration and redness. Family trying to contact the surgeon but at that moment, he is of f the case so he was admitted to this institution and they consulted me. I cannot get any informatio n. We trying to contact in the hospital but since it is right now so late and we are not sure we can get any information from him from the hospital. Past Medical History: As above. Allergies: NONE. Medications: Reviewed. Medical History: CAD factor 5 Leiden factor disorder, COPD, AAA repair, cholecystectomy, CABG, herni as repair, subdural hematoma, valve replacement. Family History: Hypertension and heart disease. Social History: He does not smoke right now, although he used to smoke. He does not drink alcohol. Review of Systems: A 10 point otherwise remarkable. Physical Examination: General: The patient is awake and alert. HEENT: Pupils are equal and reactive, anicteric. Neck: Supple. Chest: Clear. Abdomen: Soft and depressible. No tenderness. Bowel sounds positive. Rectal: Deferred. Extremities: Over the right femoral region the patient has an incision. There is some dehiscence of incision at 1 point, with some bulging underneath consistent with the fluid. There is some fluid di scharge coming clear, no blood. The area in the extremities that shows no cyanosis. Less erythema associated with it. An increased temperature. Dorsalis pedis pulses bilaterally are dimin ished. No cyanosis. The ultrasound of the extremity on the right side shows a fluid collection in t he right femoral region, they favor an abscess. Rectal: Fair. Assessment: This is a 73-year-old patient with a right groin abscess. The previous incision there w e cannot contact. At this moment, the physicians are in charge of this and also the ER right now is also trying to get some information from the hospital. We are going to start antibiotics on him and may most likely is going to have to drain this area. He has severe peripheral vascular disease with multiple medical problems, making it poor candidate for surgery but at least I have to try to attempt to remove some of this fluid out so the antibiotics worked better. He may need a formal debridement of all that area but I will not be able to do so until I get a little more clarification of the prev ious surgeries before on this patient. There is a graft in that area. Then, we might have to take i t to another level. He understands the risks of the incision and drainage which is just opening ____ to allow the fluid to come out with benefits, alternatives, and risks including, but not limit ed to infection, bleeding, damage to adjacent structures, anesthesia complication, nonhealing wound, [place], and even . He also understands he may require wound care. There is a nonpulsatile mass. W e do not believe it is a leakage from that area of vascular leakage and the patient and family state they are for sure now there was no graft in that region. NEERAJ/CAESAR Voice ID: [id number] Report ID: [id number]
[2018-03-06] MEDS: cloNIDine HCl 0.1 MG TAB PO PRN (16:22)
[2018-03-06] MEDS: VANCOMYCIN 1.25 GM in NA CHLORIDE 0.9% 250 ML IVPB SCH (18:12)
[2018-03-06] MEDS: TOPIRAMATE 25 MG TAB PO SCH (21:47)
[2018-03-06] MEDS: CARVEDILOL 12.5 MG TAB PO SCH (21:47)
[2018-03-06] MEDS: AMITRIPTYLINE 50 MG TAB PO SCH (21:47)
[2018-03-07] MEDS: PIPER/TAZO/NS 3.375gm 3.375 GM/100 ML BAG IVPB SCH ×3 (00:13→17:00)
[2018-03-07] MEDS: cloNIDine HCl 0.1 MG TAB PO PRN (04:20)
[2018-03-07] MEDS: NA CHLORIDE 0.9% 1,000 ML IV SCH ×2 (04:22→09:40)
[2018-03-07] MEDS: HYDROCODONE/APAP 5/325 MG TAB PO PRN ×3 (09:36→21:33)
[2018-03-07] MEDS: PRIMIDONE 250 MG TAB PO SCH (09:36)
[2018-03-07] MEDS: CARVEDILOL 12.5 MG TAB PO SCH ×2 (09:37→21:32)
[2018-03-07] MEDS: LISINOPRIL 20 MG TAB PO SCH (09:38)
[2018-03-07] MEDS: TOPIRAMATE 25 MG TAB PO SCH ×2 (09:39→21:32)
--- NOTE | 2018-03-07 11:27 | P.PN ---
Subjective Date of Service: 03/07/18 Chief Complaint: Groin abscess And seen and examined at bedside with RN. Case discussed with general surgery. S/P I&D at bedside now. Doing well. Pain controlled as well. No Complains to offer. Review of Systems General: As per HPI Physical Examination - Vital Signs Temperature: 97.4 F Blood Pressure: 179/86 Pulse: 62 Respirations: 17 Pulse Ox (%): 96 - Physical Exam General: Alert, In no apparent distress, Oriented x3 HEENT: Atraumatic, PERRLA, EOMI Neck: Supple, JVD not distended Respiratory: Clear to auscultation bilaterally, Normal air movement Cardiovascular: Regular rate/rhythm, Normal S1 S2 Gastrointestinal: Normal bowel sounds, No tenderness Musculoskeletal: Other (Right groin with dressing that is c/D/I) Integumentary: No rashes Neurological: Normal speech, Normal tone, Normal affect Lymphatics: No axilla or inguinal lymphadenopathy - Studies Medications List Reviewed: Yes Assessment & Plan - Problems (Diagnosis) (1) Abscess Current Visit: Yes Status: Acute Plan: Right Groin Abscess -Gen Surgery Consulted. 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 transplanted heart: [place] heart Associated angina: without angina Qualified Code(s): I25.810 - Atherosclerosis of coronary artery bypass graft(s) without angina pectoris (5) COPD (chronic obstructive pulmonary disease) Onset Date: 07/14/16 Current Visit: No Status: Chronic Qualifiers: COPD type: chronic bronchitis Chronic bronchitis type: unspecified Qualified Code(s): J42 - Unspecified chronic bronchitis (6) Chronic anticoagulation Onset Date: 07/14/16 Current Visit: No Status: Chronic (7) Chronic pain disorder Onset Date: 07/14/16 Current Visit: No Status: Chronic (8) Chronic renal disease Onset Date: 07/14/16 Current Visit: No Status: Chronic Qualifiers: Chronic kidney disease stage: stage 3 (moderate) Qualified Code(s): N18.3 - Chronic kidney disease, stage 3 (moderate) (9) Hypertension Onset Date: 07/14/16 Current Visit: No Status: Chronic Qualifiers: Hypertension type: essential hypertension Qualified Code(s): I10 - Essential (primary) hypertension Discharge Plan: Home Plan to discharge in: 48 Hours - Code Status/Comfort Care Code Status Assessed: Yes Critical Care: No
[2018-03-07] MEDS: VANCOMYCIN 1.25 GM in NA CHLORIDE 0.9% 250 ML IVPB SCH (12:50)
[2018-03-07] MEDS: COLLAGENASE 30 GM OINTMENT TOP SCH (16:45)
[2018-03-07] MEDS: AMITRIPTYLINE 50 MG TAB PO SCH (21:33)
[2018-03-08] MEDS: PIPER/TAZO/NS 3.375gm 3.375 GM/100 ML BAG IVPB SCH ×2 (01:28→10:21)
[2018-03-08] MEDS: NA CHLORIDE 0.9% 1,000 ML IV SCH ×2 (01:32→12:33)
[2018-03-08 02:20] VITALS: O2SAT 98
--- NOTE | 2018-03-08 02:43 | PN ---
Date of Progress Note: 03/07/2018 Diagnosis: Right groin abscess status post I and D. The patient is doing well. No fever. Physical Examination: Abdomen: Soft and depressible. Groin: Right groin area intact surgical site. Cultures still pending. Plan: Continue wet-to-dry dressing, Nu Gauze if possible and follow up cultures whenever cultures ar e obtained. Then he may go home on medications by mouth, and encouraged to follow up also with his s urgeteto in [place] who performed surgery there previously. NEERAJ/CAESAR Voice ID: [id number] Report ID: [id number]
[2018-03-08] MEDS: VANCOMYCIN 1.25 GM in NA CHLORIDE 0.9% 250 ML IVPB SCH (06:27)
[2018-03-08] MEDS: PRIMIDONE 250 MG TAB PO SCH (08:15)
[2018-03-08] MEDS: LISINOPRIL 20 MG TAB PO SCH (08:15)
[2018-03-08] MEDS: HYDROCODONE/APAP 5/325 MG TAB PO PRN ×2 (08:16→11:49)
[2018-03-08] MEDS: CARVEDILOL 12.5 MG TAB PO SCH (08:16)
[2018-03-08] MEDS: cloNIDine HCl 0.1 MG TAB PO PRN (08:17)
[2018-03-08] MEDS: TOPIRAMATE 25 MG TAB PO SCH (08:17)
--- NOTE | 2018-03-08 12:13 | DS ---
Date of Discharge: 03/08/2018 Consultants: Richard Vera MD Procedures: On 03/06/2018, incision and drainage of right groin abscess. Admitting Diagnoses: 1.Right groin abscess. 2.Hypercoagulable state. 3.Coronary artery disease status post coronary artery bypass graft, [place] artery and [place] heart w ithout angina. 4.Chronic obstructive pulmonary disease, chronic bronchitis. 5.Peripheral vascular disease. 6.Chronic pain syndrome. Discharge Diagnoses: 1.Right groin abscess status post incision and drainage. Wound cultures growing skin jessica. 2.Peripheral arterial disease. 3.Status post AAA repair. 4.Coronary artery disease status post coronary artery bypass graft, [place] artery and [place] heart w ithout angina. 5.Chronic bronchitis, chronic obstructive pulmonary disease, on chronic anticoagulation. 6.Chronic pain disorder. 7.Essential hypertension, stable. Hospital Course: The patient is a 73-year-old male, who came into the hospital with groin abscess. Apparently, he had a thrombectomy recently. The patient was seen by Dr. Vera and had incision an d drainage performed on 03/06/2018. The patient was started on IV antibiotics. Wound cultures from the groin showed skin jessica. Otherwise, he did well. He was afebrile, normal white count. No signs of sepsis. The patient was then cleared for discharge from surgical standpoint to go home on oral a ntibiotics. The patient has been discharged with home health care with wound care. Followup: Follow up with primary care physician in 2-3 days. Follow up with primary surgeon in 7-10 days for wound check. Return to ER for worsening condition. Diet: Heart healthy. Activity: No driving or operating heavy machinery while on narcotics. Medications: As per medication reconciliation list. Total time spent discharging the patient was 32 minutes. Physical Examination: General: Awake, alert, oriented, no acute distress. Elderly male. CV: S1, S2. No murmurs. Respiratory: Moving air well bilaterally. Abdomen: Soft, nondistended. Positive bowel sounds. Extremities: No clubbing, cyanosis, edema. Neurologic: Nonfocal. Skin: Right groin incision site clean, dry, intact. Packed with gauze. Code Status: Full. SA/MODL Voice ID: [id number] Report ID: [id number]
[2018-03-08] MEDS: COLLAGENASE 30 GM OINTMENT TOP SCH (12:43)
[2018-03-08 12:46] VITALS: BP 168/87; TEMP 97.7
== END 2018-03-08 14:00 | disposition home health service (06) | DRG 863 ==
LOC: ER 19:04 → ERHOLD 22:29 → 4TH 23:25 → OBSVTOIN 03-06 11:27
PROVIDERS: ADMIT Internal Medicine; ATTEND Family Medicine
PROC: 0H9AXZX Drainage of Inguinal Skin, External Approach, Diagnostic (ICD-10-PCS; principal; 2018-03-06)
DX: T81.4XXA Infection following a procedure, initial encounter (principal); L02.214 Cutaneous abscess of groin; D68.51 Activated protein C resistance; L03.314 Cellulitis of groin; L97.419 Non-pressure chronic ulcer of right heel and midfoot with unspecified severity; G89.4 Chronic pain syndrome; I25.10 Atherosclerotic heart disease of native coronary artery without angina pectoris; I70.234 Atherosclerosis of native arteries of right leg with ulceration of heel and midfoot; N18.3 Chronic kidney disease, stage 3 (moderate); I12.9 Hypertensive chronic kidney disease with stage 1 through stage 4 chronic kidney disease, or unspecified chronic kidney disease; I71.4 Abdominal aortic aneurysm, without rupture; J44.9 Chronic obstructive pulmonary disease, unspecified; Z95.1 Presence of aortocoronary bypass graft; Y83.8 Other surgical procedures as the cause of abnormal reaction of the patient, or of later complication, without mention of misadventure at the time of the procedure; Z95.2 Presence of prosthetic heart valve; Z87.891 Personal history of nicotine dependence; Z79.01 Long term (current) use of anticoagulants
CPT/HCPCS: 36415; 76882; 80048; 80053; 80202; 83735; 84132; 85025; 87070; 87077; 87186; 87205; 99285; J2543; J3590; J7030

== ENCOUNTER 2018-03-22 16:42 | Emergency (ER) | payer OTHER ==
--- OUTSIDE RECORDS SUMMARY | 2018-03-22 16:47 | XMS REPORT | Continuity of Care Document ---
:1945 Author Organization Interface Problems Problem Status Onset Classification Date Comments Source Date Reported SARAH Active 05/24/20 [facility] BILLING [id number] [place] [address] SDH Active 05/24/[address] AAA (<span Resolved Problem 06/02/2016 [facility] ID="[id number] Medical ">Confirmed</spa Center n>) COPD (<span Resolved Problem 06/02/2016 [facility] ID="[id number] Medical ">Confirmed</spa Center n>) HTN (<span Resolved Problem 06/02/2016 [facility] ID="[id number] Medical ">Confirmed</spa Center n>) 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 [facility] SUBDURAL Medical HEMORRHAGE, Center UNSPEC Medications Medication Details Route Status Patient Ordering Order Source Instructions Provider Date Warfarin Sodium 5 mg=1 tab, PO, Active [facility] 5 MG Oral Tablet Daily, INR goal 2015 Medical [Coumadin] 2-3, # 30 tab, 0 Center Refill(s) tamsulosin 0.4 0.8 mg=2 cap, Active 05/30[facility] [place] mg oral capsule PO, Daily, 0 2016 Medical Refill(s) [place] Levetiracetam 1,500 mg=3 tab, Active 05/30[facility] 500 MG Oral PO, [id number], # 2016 Medical Tablet 90 tab, 0 Center Refill(s) Docusate Sodium 100 mg=1 cap, Active 05/30[facility] [place] 100 MG Oral PO, Q12H, # 20 2016 Medical Capsule cap, 0 Refill(s) [place] phenol 1 spray, Route: No Longer 05/30[facility] TOP, TID, Drug Active 2015 Medical form: SPRY, PRN Center Sore Throat, Start date: 05/29/16 22:35:00 CDT, Duration: 30 day, Stop date: 06/28/16 22:34:00 CSTNotes: Chloraseptic [place] (Same as: Chloraseptic, Sore Throat [place]) WASTE: F/P - Black; E - Municipal Trash Bin Coumadin 5 mg, 1 tab, Inactive [place] Route: PO, Drug 2015 Medical form: TAB, ONCE, Center Dosing Weight 76.36, kg, Start date: 05/29/16 21:30:00 CDT, Stop date: 05/29/16 21:30:00 CDT Warfarin 5 mg, 1 tab, Inactive [place] Route: PO, Drug 2015 Medical form: TAB, Q5PM, Center Dosing Weight 76.36, kg, Start date: 05/29/16 17:00:00 CDT, Duration: 1 doses or times, Stop date: 05/29/16 17:00:00 CDT Labetalol 200 mg, 1 tab, No Longer [place] Route: PO, Drug Active 2015 Medical form: TAB, Q8H, Center Dosing Weight 76.36, kg, Start date: 05/29/16 9:44:00 CDT, Duration: 30 day, Stop date: 06/28/16 8:00:00 CSTNotes: With food. (Same as:Trandate, Normodyne) Keppra 1,500 mg, 3 tab, No Longer [place] Route: PO, Drug Active 2015 Medical form: TAB, Center [id number], Start date: 05/29/16 6:00:00 CDT, Duration: 30 day, Stop date: 06/27/16 18:00:00 CSTNotes: (Same as:Keppra) Coumadin 5 mg, 1 tab, Inactive [place] Route: PO, Drug 2015 Medical form: TAB, [...] Catapres) Miralax 17 gm, Route: No Longer [facility] PO, Daily, Active 2015 Medical Dosing Weight Center 76.36, kg, Start date: 05/28/16 9:00:00 CDT, Duration: 30 day, Stop date: 06/26/16 9:00:00 PRINCIPAL TECHNICAL WRITER Remeron 7.5 mg, 1 tab, No Longer [place] Route: PO, Drug Active 2015 Medical form: TAB, Center Bedtime, Dosing Weight 76.36, kg, Start date: 05/27/16 21:00:00 CDT, Duration: 30 day, Stop date: 06/25/16 21:00:00 CSTNotes: (Same as:Remeron) ibuprofen 100 600 mg, 30 mL, No Longer [facility] mg/5 mL oral Route: PO, Drug Active 2015 Medical suspension form: SUSP, Q6H, Center Dosing Weight 76.36, kg, Start date: 05/27/16 15:00:00 CDT, Duration: 30 day, Stop date: 06/26/16 12:00:00 CSTNotes: (Same as: Motrin Children's, Advil Children's) Take with food. Duragesic-100 1 patch, Route: No Longer [place] TOP, Drug form: Active 2016 Medical ERFILM, Q48H, Center Start date: 05/27/16 13:00:00 CDT, Duration: 30 day, Stop date: 06/24/16 13:00:00 CSTNotes: (Same as: Duragesic) Check for product integrity. Apply to intact skin "Remove old patch before application of new patch" Ibuprofen 600 mg, 30 mL, Inactive [place] Route: PO, Drug 2015 Medical form: SUSP, [...] Duration: 30 day, Stop date: 06/25/16 9:00:00 PRINCIPAL TECHNICAL WRITER Lisinopril 40 mg, Route: Inactive [place] PO, Drug form: 2016 Medical TAB, Daily, Center Dosing Weight 76.36, kg, Start date: 05/27/16 9:00:00 CDT, Duration: 30 day, Stop date: 06/25/16 9:00:00 PRINCIPAL TECHNICAL WRITER Miralax 17 gm, 1 pkt, No Longer [...] Active 2016 Medical Ipratropium SOLN, Dosing Center [place] 0.167 Weight 76.36, MG/ML Inhalant kg, Q4H, [...] Refill(s) Center Bitartrate 10 MG Oral Tablet [[place] ] lisinopril 40 mg 40 mg=1 tab, PO, Active [place] oral tablet Daily, 0 2016 Medical Refill(s) Center 12 HR Clonidine 0.1 mg=1 tab, Active [place] Hydrochloride PO, Bedtime, # 2016 Medical 0.1 MG Extended 30 tab, 0 Center Release Tablet Refill(s) 72 HR Fentanyl 1 patch, TOP, Active [place] 0.1 MG/HR Q48H, # 15 2016 Medical Transdermal patch, 0 [place] Patch Refill(s) [Duragesic] Warfarin Sodium 4 mg=1 tab, PO, No Longer [place] 4 MG Oral Tablet Daily, # 30 tab, Active 2016 Medical [Coumadin] 0 Refill(s) [place] Breo Ellipta 100 1 puff, Active [place] mcg-25 mcg INHALATION, 2016 Medical inhalation Daily, 0 [place] powder Refill(s) Vitamin B12 100 100 microgram=1 Active [place] mcg oral tablet tab, PO, Daily, 2016 Medical # 30 tab, 0 Center Refill(s) primidone 50 mg 50 mg=1 tab, PO, Active [facility] oral tablet BID, # 60 tab, 0 2016 Medical Refill(s) [place] tizanidine 4 MG 8 mg=2 tab, PO, Active [facility] Oral Tablet Q8H, # 180 tab, 2016 Medical [Zanaflex] 0 Refill(s) [place] Aspirin 81 MG 81 mg=1 tab, PO, No Longer [place] Enteric Coated Daily, # 90 tab, Active 2015 Medical Tablet 3 Refill(s) [place] Vitamin D3 400 400 IntlUnit=1 Active [place] intl units oral cap, PO, Daily, 2016 Medical capsule 0 Refill(s) [place] 200 ACTUAT 2 puff, INHALER, Active [place] Albuterol 0.09 Q6H, PRN for 2016 Medical MG/ACTUAT wheezing, # 8.5 Center Metered Dose gm, 0 Refill(s) Inhaler [ProAir HFA] Keppra 1,000 mg, Route: Inactive [place] IV, ONCE, Dosing 2016 Medical Weight 76.36, Center kg, Priority: STAT, Start date: 05/26/16 12:59:00 CDT, Stop date: 05/26/16 12:59:00 CDTNotes: Same as Keppra Mix with 100 mL NS, LR or D5W MEDICATION WASTE Product Size: 500 mg Product Wasted: ___ mg Hydralazine 10 mg, 0.5 mL, No Longer [place] Route: IV, Drug Active 2015 Medical form: [...] Duration: 30 day, Stop date: 06/24/16 1:28:00 PRINCIPAL TECHNICAL WRITER sodium chloride 1,000 mL, Rate: No Longer [place] 0.9% 1000 ml INJ 50 ml/hr, Infuse Active 2016 Medical 1,000 mL over: 20 hr, Center Route: IV, Dosing Weight 76.36 kg, Total Volume: 1,000, Start date: 05/25/16 21:30:00 CDT, Duration: 30 day, Stop date: 06/24/16 21:29:00 PRINCIPAL TECHNICAL WRITER Acetaminophen 1 tab, Route: No Longer [place] 325 MG / PO, Drug Form: Active 2016 Medical Hydrocodone TAB, Dosing Center Bitartrate 5 MG Weight 76.36, Oral Tablet kg, Q4H, PRN [[place] 5/325] Pain Score 6-10, Start date: 05/25/16 20:00:00 CDT, Stop date: 06/24/16 16:00:00 CSTNotes: (Same as: [place] 325/5) Do not exceed 4gm/day of acetaminophen. [...] Duration: 30 day, Stop date: 06/24/16 15:56:00 PRINCIPAL TECHNICAL WRITER Ancef 2 gm, Route: Inactive [place] IVPB, ONCE, 2016 Medical Dosing Weight Center 76.36, kg, Start date: 05/25/16 14:15:00 CDT, Duration: 1 doses or times, Stop date: 05/25/16 14:15:00 CDT Streptococcus 0.5 mL, Route: Inactive [place] pneumoniae IM, Drug Form: 2016 Medical serotype 1 INJ, Daily, Center capsular antigen Start date: diphtheria 05/25/16 9:00:00 [id number] protein CDT, Duration: 1 conjugate doses or times, vaccine / Stop date: Streptococcus 05/25/16 9:00:00 pneumoniae CDTNotes: serotype 14 Lightly roll capsular antigen vial (DO NOT diphtheria SHAKE) before [id number] protein administration. conjugate (Same as: vaccine / Prevnar 13) Streptococcus pneumoniae serotype 18C capsular antigen d Vitamin K1 + 10 mg, 1 mL, No Longer [place] sodium chloride Route: IVPB, Active 2015 Medical 0.9% INJ 50 mL Daily, Dosing Center Weight 76.36, kg, Start date: 05/25/16 9:00:00 CDT, Duration: 3 doses or times, Stop date: 05/27/16 9:00:00 CDTNotes: (Same as: Aqua-Mephyton, Vitamin K) MEDICATION WASTE Product Size: 10 mg Product Wasted: ___ mg Saline Flush 10 ml, Route: No Longer [place] 0.9% IVP, Drug Form: Active 2015 Medical INJ, Dosing Center Weight 76.364, kg, Q12H, Start date: 05/25/16 9:00:00 CDT, Duration: 30 day, Stop date: 06/23/16 21:00:00 CSTNotes: (Same as: BD Posiflush) Levetiracetam 1,500 mg, 3 tab, No Longer [place] Route: PO, Drug Active 2015 Medical form: TAB, Q12H, Center Dosing Weight 76.364, kg, Start date: 05/25/16 9:00:00 CDT, Stop date: 06/23/16 21:00:00 CSTNotes: (Same as:Kathryn) Docusate 100 mg, 1 cap, No Longer [place] Route: PO, Drug Active 2015 Medical form: CAP, Q12H, Center Dosing Weight 76.364, kg, Start date: 05/25/16 9:00:00 CDT, Duration: 30 day, Stop date: 06/23/16 21:00:00 CSTNotes: (Same as: Colace) (Do Not Crush) sennosides, SHELTER 8.6 mg, 1 tab, No Longer [place] Route: PO, Drug Active 2015 Medical Form: TAB, Center Dosing Weight 76.364, kg, Q12H, Start date: 05/25/16 9:00:00 CDT, Duration: 30 day, Stop date: 06/23/16 21:00:00 CSTNotes: (Same as: [place]) Flomax 0.8 mg, 2 cap, No Longer [place] Route: PO, Drug Active 2015 Medical form: CAP, Center Daily, Dosing Weight 76.36, kg, Priority: NOW, Start date: 05/25/16 6:11:00 CDT, Duration: 30 day, Stop date: 06/23/16 9:00:00 CSTNotes: (Same As: Flomax) "Do Not Crush" Dexamethasone 6 mg, 1.5 mL, Inactive [place] Route: IV, Drug 2015 Medical form: INJ, ONCE, Center Dosing Weight 76.36, kg, Priority: NOW, Start date: 05/25/16 5:39:00 CDT, Stop date: 05/25/16 5:39:00 CDTNotes: Concentration: 4mg/ml Mannitol 100 gm, 500 mL, Inactive [place] Route: IVPB, 2015 Medical Drug form: INJ, Center ONCE, Dosing Weight 76.36, kg, Priority: NOW, Start date: 05/25/16 5:16:00 CDT, Stop date: 05/25/16 5:16:00 CDTNotes: (Same as: Osmitrol) Infuse through 5 micron or smaller filter WASTE: F/P - Sink; E - Municipal Trash Bin Vitamin K1 + 10 mg, 1 mL, Inactive [place] sodium chloride Route: IVPB, 2015 Medical 0.9% INJ 50 mL ONCE, Dosing Center Weight 76.364, kg, Priority: NOW, Start date: 05/25/16 0:23:00 CDT, Stop date: 05/25/16 0:23:00 CDTNotes: (Same as: Aqua-Mephy[place], Vitamin K) MEDICATION WASTE Product Size: 10 mg Product Wasted: ___ mg Magnesium Oxide 800 mg, 2 tab, No Longer [place] Route: PO, Drug Active 2015 Medical form: TAB, PRN, Center Dosing Weight 76.364, kg, PRN Abnormal Lab Result, FOR ICU USE ONLY, Start date: 05/24/16 23:11:00 CDT, Duration: 30 day, Stop date: 06/23/16 22:10:00 CSTNotes: (Same as: Mag-Ox 400) Magnesium oxide [id number] elemental magnesium Dose=____mg magnesium oxide (___mg elemental magnesium) Magnesium 2 gm, 50 mL, No Longer [place] Sulfate Route: IVPB, Active 2015 Medical Drug form: INJ, Center PRN, Dosing Weight 76.364, kg, PRN Abnormal Lab Result, Start date: 05/24/16 23:11:00 CDT, Duration: 30 day, Stop date: 06/23/16 22:10:00 PRINCIPAL TECHNICAL WRITER, FOR ICU USE ONLYNotes: WASTE: F/P - Sink; E - Municipal Trash Bin Calcium 500 mg, 1 tab, No Longer [place] Carbonate 500 MG Route: PO, Drug Active 2015 Medical Chewable Tablet form: CHEWTAB, Center PRN, Dosing Weight 76.364, kg, PRN Abnormal Lab Result, FOR ICU USE ONLY, Start date: 05/24/16 23:11:00 CDT, Duration: 30 day, Stop date: 06/23/16 22:10:00 CSTNotes: (Same As: Tums) Calcium Carbonate 500 ld=152 mg elemental calcium Dose= mg calcium carbonate ( mg elemental calcium) Calcium 1 gm, 10 mL, No Longer [place] Gluconate Route: IVPB, Active 2015 Medical PRN, Dosing Center Weight 76.364, kg, PRN Abnormal Lab Result, Start date: 05/24/16 23:11:00 CDT, Duration: 30 day, Stop date: 06/23/16 22:10:00 PRINCIPAL TECHNICAL WRITER, FOR ICU USE ONLYNotes: WASTE: F/P - [...] Duration: 30 day, Stop date: 06/23/16 22:10:00 PRINCIPAL TECHNICAL WRITER, FOR ICU USE ONLYNotes: (Same as: K Phosphate.) 1 mMol phoshate has 1.47 mEq potassium Infuse over 4 hours sodium phosphate 45 mmol, 15 mL, No Longer [place] + sodium Route: IVPB, Active 2015 Medical chloride 0.9% PRN, Dosing Center INJ 250 mL Weight 76.364, kg, PRN Abnormal Lab Result, Start date: 05/24/16 23:11:00 CDT, Duration: 30 day, Stop date: 06/23/16 22:10:00 PRINCIPAL TECHNICAL WRITER, FOR ICU USE ONLY potassium 10 mEq, 50 mL, No Longer [place] chloride Route: IVPB, Active 2015 Medical Drug form: INJ, Center PRN, Dosing Weight 76.364, kg, PRN Abnormal Lab Result, Via peripheral line, Start date: 05/24/16 23:11:00 CDT, Duration: 30 day, Stop date: 06/23/16 22:10:00 PRINCIPAL TECHNICAL WRITER, FOR ICU USE ONLYNotes: (Same as: KCL) Infuse over 2 hours. iodixanol 60 mL, Route: Inactive [place] IVP, Drug Form: 2015 Medical SOLN, Dosing Center Weight 76.364, kg, ONCALL, STAT, Start date: 05/24/16 22:50:00 CDT, Duration: 1 doses or times, Dose=2.2ml/kg, Max [id number] -- "To be infused by Radiology Staff [...] units) WASTE: F/P - Black; E - [place] Trash Bin Stable for 28 days at room temperature Expires in days from Da te Dextrose 50% 6.25 gm, 12.5 No Longer [place] Syringe mL, Route: IVP, Active 2015 Medical Drug Form: INJ, Center Dosing Weight 76.364, kg, PRN, PRN Abnormal Lab Result, Start date: 05/24/16 22:17:00 CDT, Duration: 30 day, Stop date: 06/23/16 21:16:00 PRINCIPAL TECHNICAL WRITER Saline Flush 10 ml, Route: No Longer [place] 0.9% IVP, Drug Form: Active 2015 Medical INJ, Dosing Center Weight 76.364, kg, PRN, PRN Line Flush, Start date: 05/24/16 22:17:00 CDT, Duration: 30 day, Stop date: 06/23/16 21:16:00 CSTNotes: (Same as: BD Posiflush) Bisacodyl 10 mg, 1 supp, No Longer [place] Route: IN, Drug Active 2015 Medical form: SUPP, Center Daily, Dosing Weight 76.364, kg, PRN Constipation, Start date: 05/24/16 22:17:00 CDT, Duration: 30 day, Stop date: 06/23/16 22:16:00 CSTNotes: (Same As: Dulcolax, Bisco-Lax) Ondansetron 4 mg, 2 mL, No Longer [place] Route: IVP, Drug Active 2015 Medical form: [...] not exceed 4gm/day of acetaminophen. (Same as: [place] 325/10) Levetiracetam 1,000 mg, Route: No Longer [place] IVPB, Drug form: Active 2016 Medical INJ, ONCE, Center Dosing Weight 76.364, kg, Start date: 05/24/16 22:17:00 CDT, Stop date: 05/24/16 22:17:00 CDTNotes: Same as Keppra Mix with 100 mL NS, LR or D5W MEDICATION WASTE Product Size: 500 mg Product Wasted: __0_ mg Sodium Chloride 1,000 mL, Rate: No Longer [place] 0.154 MEQ/ML 75 ml/hr, Infuse Active 2015 Medical Injectable over: 13.3 hr, Center Solution Route: IV, Dosing Weight 76.364 kg, Total Volume: 1,000, Start date: 05/24/16 22:17:00 CDT, Duration: 30 day, Stop date: 06/23/16 22:16:00 PRINCIPAL TECHNICAL WRITER Acetaminophen 1 tab, Route: No Longer [place] 325 MG / PO, Drug Form: Active 2015 [facility] Hydrocodone TAB, Dosing Center Bitartrate 5 MG Weight 76.364, Oral Tablet kg, Q4H, PRN Pain Score 1-3, Start date: 05/24/16 22:17:00 CDT, Duration: 30 day, Stop date: 06/23/16 22:16:00 CSTNotes: (Same as: [place] 325/5) Do not exceed 4gm/day of acetaminophen. Saline Flush 10 mL, Route: No Longer [place] 0.9% IVP, Drug Form: Active 2015 Medical INJ, Dosing Center Weight 76.364, kg, PRN, PRN Line Flush, Start date: 05/24/16 20:56:00 CDT, Duration: 30 day, Stop date: 06/23/16 19:55:00 CSTNotes: (Same as: BD Posiflush) Allergies, Adverse Reactions, Alerts Substance Category Reaction Severity Reaction Status Date Comments Source type Reported NKDA Assertion Drug Active [facility] Immunizations Immunization Date Site Status Last Updated Comments Source Given pneumococcal Right completed Aigbedion [facility] 13-valent 6 Deltoid Medical vaccine Center Results Order Name Results Value Reference Date Interpretation Comments Source Range HEMATOLOGY INR 1.08 0.85 - 05/30 [facility] 1. [facility] HEMATOLOGY PT 14.2 s 12.0 - 05/30 [facility] 14.7 [facility] HEMATOLOGY INR 1.09 0.85 - 05/28 [facility] 1. [facility] HEMATOLOGY PTT 27.7 s 22.9 - 05/28 [place] 35.8 /2015 [facility] HEMATOLOGY PT 14.3 s 12.0 - 05/28 [facility] 14. [facility] HEMATOLOGY Platelet 287 K/CMM 133 - 450 05/28 [facility] HEMATOLOGY MPV 8.4 fL 7.4 - 10.4 05/28 [facility] HEMATOLOGY MCHC 33.3 g/dL 32.0 - 1019 [place] 36.0 [facility] HEMATOLOGY Hgb 11.6 g/dL 14.0 - 05/28 [place] 18.0 [facility] HEMATOLOGY MCH 29.6 pg 27.0 - 05/28 [place] 31.0 [facility] HEMATOLOGY RDW 15.0 % 11.5 - 05/28 [place] 14.5 [facility] HEMATOLOGY MCV 88.9 fL 80.0 - 05/28 [place] 94.0 [facility] HEMATOLOGY Hct 35.0 % 42.0 - 05/28 [place] 54.0 [facility] HEMATOLOGY RBC 3.94 M/CMM 4.70 - 05/28 [place] 6.10 [facility] HEMATOLOGY WBC 11.4 K/CMM 3.7 - 10.4 05/28 [facility] HEMATOLOGY Monocytes # 1.3 K/CMM 0.0 - 0.8 05/28 /2015 [facility] HEMATOLOGY Segs-Bands # 8.9 K/CMM 1.5 - 8.1 05/28 [facility] HEMATOLOGY Lymphocytes 1.2 K/CMM 1.0 - 5.5 05/28 [place] # /2015 [facility] HEMATOLOGY Basophils # 0.1 K/CMM 0.0 - 0.2 05/28 [facility] HEMATOLOGY Eosinophils 0.1 % 0.0 - 4.0 05/28 [facility] HEMATOLOGY Basophils 0.5 % 0.0 - 1.0 05/28 [facility] HEMATOLOGY Monocytes 11.5 % 2.0 - 12.0 05/28 [facility] HEMATOLOGY Segs 77.6 % 45.0 - 05/28 [place] 75.0 [facility] HEMATOLOGY Lymphocytes 10.3 % 20.0 - 05/28 [place] 40.0 2016 [facility] CHEM PANEL eGFR 89 05/27 Result Comment: The eGFR is calculated using the CKD-EPI formula. In most young, healthy individuals the eGFR will be >90 mL/ min/1.73m2. The eGFR declines with age. An eGFR of 60-89 may be normal in [facility] mL/min/1.73 /2015 some populations, particularly the elderly, for whom the CKD-EPI formula has not been extensively validated. Use of the eGFR is not recommended in the following populations: [address] Individuals with unstable creatinine concentrations, including [...] Lvl 104 mg/dL 70 - 99 05/27 [facility] CHEM PANEL Creatinine 0.80 mg/dL 0.50 - 05/27 [facility] Lvl 1.40 [facility] CHEM PANEL BUN 9 mg/dL 7 - 22 05/27 [facility] CHEM PANEL Sodium Lvl 137 meq/L 135 - 145 05/27 [facility] CHEM PANEL Potassium 3.9 meq/L 3.5 - 5.1 05/27 [facility] Comment: [facility] Slightly Hemolyzed. CHEM PANEL CO2 22 meq/L 24 - 32 05/27 [facility] CHEM PANEL Chloride Lvl 100 meq/L 95 - 109 05/27 [facility] CHEM PANEL Calcium Lvl 8.0 mg/dL 8.5 - 10.5 05/27 [facility] CHEM PANEL AGAP 18.9 meq/L 10.0 - 05/27 [facility] 20.0 [facility] CHEM PANEL Phosphorus 2.3 mg/dL 2.5 - 4.5 05/27 [facility] CHEM PANEL Magnesium 1.7 mg/dL 1.8 - 2.4 05/27 [facility] l [facility] HEMATOLOGY Monocytes 7.2 % 2.0 - 12.0 05/27 [facility] HEMATOLOGY Lymphocytes 7.5 % 20.0 - 05/27 [place] 40.0 [facility] HEMATOLOGY Segs 85.1 % 45.0 - 05/27 [place] 75.0 [facility] HEMATOLOGY Segs-Bands # 9.0 K/CMM 1.5 - 8.1 05/27 [facility] HEMATOLOGY Basophils 0.2 % 0.0 - 1.0 05/27 [facility] HEMATOLOGY Monocytes # 0.8 K/CMM 0.0 - 0.8 05/27 [facility] HEMATOLOGY Lymphocytes 0.8 K/CMM 1.0 - 5.5 05/27 [place] # /2015 [facility] HEMATOLOGY MCV 88.5 fL 80.0 - 05/27 [place] 94.0 [facility] HEMATOLOGY Hct 31.9 % 42.0 - 05/27 [place] 54.0 [facility] HEMATOLOGY Hgb 11.0 g/dL 14.0 - 05/27 [place] 18.0 [facility] HEMATOLOGY RBC 3.61 M/CMM 4.70 - 05/27 [place] 6.10 [facility] HEMATOLOGY MCH 30.6 pg 27.0 - 05/27 [place] 31.0 [facility] HEMATOLOGY WBC 10.6 K/CMM 3.7 - 10.4 05/27 [facility] HEMATOLOGY Platelet 205 K/CMM 133 - 450 05/27 [facility] HEMATOLOGY RDW 14.7 % 11.5 - 05/27 [place] 14.5 [facility] HEMATOLOGY MCHC 34.6 g/dL 32.0 - 05/27 [place] 36.0 [facility] HEMATOLOGY MPV 9.3 fL 7.4 - 10.4 05/27 [facility] PARATHYROID Ca Norm WB 0.99 mMol/L 1.05 - 05/27 [place] PROFILE 1.25 [facility] PARATHYROID Ca Ion WB 1.02 mMol/L 1.05 - 05/27 [facility] PROFILE 1. [facility] Brain wo Brain wo EXAM: CT BRAIN WITHOUT CONTRAST 05/27 - [facility] contrast CT contrast CT /2015 - [facility] This report was dictated by a Senior Investment Manager/Fellow. I have personally reviewed the images as [...] evacuation. CARDIAC Troponin-T <0.010 0.000 - 05/26 [facility] ENZYMES ng/mL 0.100 [facility] CARDIAC Troponin-I null 0.00 - 05/26 [facility] ENZYMES 0.40 [facility] CARDIAC Total CK 50 unit/L 12 - 191 05/26 [facility] ENZYMES [facility] CHEM PANEL Magnesium 2.1 mg/dL 1.8 - 2.4 05/26 [facility] Lvl [facility] CHEM PANEL eGFR 88 05/26 Result Comment: The eGFR is calculated using the CKD-EPI formula. In most young, healthy individuals the eGFR will be >90 mL/ min/1.73m2. The eGFR declines with age. An eGFR of 60-89 may be normal in [facility] mL/min/1.73 some populations, particularly the elderly, for whom the CKD-EPI formula has not been extensively validated. Use of the eGFR is not recommended in the following populations: [place] [address] Center Individuals with unstable creatinine concentrations, including [...] CO2 23 meq/L 24 - 32 05/26 [facility] CHEM PANEL Chloride Lvl 100 meq/L 95 - 109 05/26 [facility] CHEM PANEL Calcium Lvl 7.8 mg/dL 8.5 - 10.5 05/26 [facility] CHEM PANEL AGAP 16.2 meq/L 10.0 - 05/26 [facility] 20.0 [facility] CHEM PANEL Sodium Lvl 135 meq/L 135 - 145 05/26 [facility] CHEM PANEL Glucose Lvl 78 mg/dL 70 - 99 05/26 [facility] CHEM PANEL BUN 9 mg/dL 7 - 22 05/26 [facility] CHEM PANEL Potassium 4.2 meq/L 3.5 - 5.1 05/26 [facility] Lvl /2015 [facility] CHEM PANEL Creatinine 0.81 mg/dL 0.50 - 05/26 [facility] Lvl 1.40 [facility] CHEM PANEL Phosphorus 3.3 mg/dL 2.5 - 4.5 05/26 [facility] HEMATOLOGY MCHC 34.6 g/dL 32.0 - 05/26 [place] 36.0 [facility] HEMATOLOGY RDW 14.1 % 11.5 - 05/26 [place] 14.5 [facility] HEMATOLOGY RBC 3.69 M/CMM 4.70 - 05/26 [place] 6.10 [facility] HEMATOLOGY WBC 10.1 K/CMM 3.7 - 10.4 05/26 [facility] HEMATOLOGY MPV 9.0 fL 7.4 - 10.4 05/26 [facility] HEMATOLOGY Platelet 234 K/CMM 133 - 450 05/26 [facility] HEMATOLOGY MCH 30.3 pg 27.0 - 05/26 [place] 31.0 [facility] HEMATOLOGY MCV 87.7 fL 80.0 - 05/26 [place] 94.0 [facility] HEMATOLOGY Hct 32.4 % 42.0 - 05/26 [place] 54.0 [facility] HEMATOLOGY Hgb 11.2 g/dL 14.0 - 05/26 [place] 18.0 [facility] HEMATOLOGY Ly30 0.2 % 0.0 - 7.5 05/26 [facility] HEMATOLOGY TEG Data See Note 05/26 [facility] (05/26/16 12:43 AM) [place] HEMATOLOGY G-value 15.5 K d/sc 4.5 - 11.0 05/26 [facility] HEMATOLOGY Max Amp 75.6 mm 50.0 - 05/26 [place] 70.0 [facility] HEMATOLOGY Coag Index 5.3 -3.0-3.0 - 05/26 [place] 3.0 [facility] HEMATOLOGY K-time 0.8 min 1.0 - 3.0 05/26 [facility] HEMATOLOGY Angle 78.6 53.0 - 05/26 [place] degrees 72.0 [facility] HEMATOLOGY R-time 2.8 min 5.0 - 10.0 05/26 [facility] HEMATOLOGY TEG Interp Thrombelast 05/26 [facility] ograph [facility] show shortened value of R and increased values of both Angle Alpha and MA. These findings are suggestive of platelet and enzymatic hypercoagul ation which may be seen in early phase of DIC. Monitor for DIC with DIC panel may be indicated.C [id number] HEMATOLOGY Monocytes 10.1 % 2.0 - 12.0 05/26 [facility] HEMATOLOGY Lymphocytes 13.2 % 20.0 - 05/26 [place] 40.0 [facility] HEMATOLOGY Segs-Bands # 7.7 K/CMM 1.5 - 8.1 05/26 [facility] HEMATOLOGY Basophils 0.4 % 0.0 - 1.0 05/26 [facility] HEMATOLOGY Eosinophils 0.1 % 0.0 - 4.0 05/26 [facility] HEMATOLOGY Monocytes # 1.0 K/CMM 0.0 - 0.8 05/26 [facility] HEMATOLOGY Lymphocytes 1.3 K/CMM 1.0 - 5.5 05/26 [facility] # [facility] HEMATOLOGY Segs 76.2 % 45.0 - 05/26 [facility] 75.0 2016 [facility] PARATHYROID Ca Ion WB 1.11 mMol/L 1. - 05/26 [facility] PROFILE 1. [facility] PARATHYROID Ca Norm WB 1.08 mMol/L 1.05 - 05/26 [facility] PROFILE 1. [facility] Brain wo Brain wo EXAM: CT BRAIN 05/25 [employer] [facility] contrast CT contrast CT /2015 [facility] DATE: 05/25/2016 at 23:43 Read by: [...] eGFR of 60-89 may be normal in [facility] mL/min/1.73 /2015 some populations, particularly the elderly, for whom the CKD-EPI formula has not been extensively validated. Use of the eGFR is not recommended in the following populations: [place] [address] [facility] Individuals with unstable creatinine concentrations, including [...] PANEL AGAP 15.3 meq/L 10.0 - 05/25 [facility] 20.0 [facility] CHEM PANEL CO2 25 meq/L 24 - 32 05/25 [facility] CHEM PANEL Calcium Lvl 7.9 mg/dL 8.5 - 10.5 05/25 [facility] CHEM PANEL Chloride Lvl 100 meq/L 95 - 109 05/25 [facility] CHEM PANEL Potassium 4.3 meq/L 3.5 - 5.1 05/25 [facility] Lvl [facility] CHEM PANEL Sodium Lvl 136 meq/L 135 - 145 05/25 [facility] CHEM PANEL Creatinine 0.94 mg/dL 0.50 - 05/25 [facility] Lvl 1.40 /2015 [facility] CHEM PANEL Glucose Lvl 113 mg/dL 70 - 99 05/25 [facility] CHEM PANEL BUN 8 mg/dL 7 - 22 05/25 /2015 [facility] HEMATOLOGY INR 1.19 0.85 - 05/25 [place] 1.17 [facility] HEMATOLOGY PT 15.4 s 12.0 - 05/25 [place] 14.7 /2015 [facility] HEMATOLOGY PTT 34.1 s 22.9 - 05/25 [place] 35.8 /2015 [facility] PARATHYROID Ca Ion WB 1.07 mMol/L 1.05 - 05/25 [place] PROFILE 1.25 [facility] PARATHYROID Ca Norm WB 1.04 mMol/L 1.05 - 05/25 [facility] PROFILE 1. [facility] CARDIAC Troponin-T <0.010 0.000 - 05/25 [facility] ENZYMES ng/mL 0.100 [facility] CARDIAC Troponin-I null 0.00 - 05/25 [facility] ENZYMES 0.40 [facility] CARDIAC Total CK 57 unit/L 12 - 191 05/25 [facility] ENZYMES /2015 [facility] CHEM PANEL A/G Ratio 1.1 0.7 - 1.6 05/25 [place] /2016 [facility] CHEM PANEL Bili 0.4 mg/dL 0.0 - 1.0 05/25 [facility] Indirect /2015 [facility] CHEM PANEL Bili Total 0.6 mg/dL 0.2 - 1.3 05/25 [facility] /2016 [facility] CHEM PANEL Bili Direct 0.2 mg/dL 0.0 - 0.3 05/25 [facility] /2016 [facility] CHEM PANEL AST 13 unit/L 0 - 37 05/25 [facility] /2016 [facility] CHEM PANEL Alk Phos 113 unit/L 39 - 136 05/25 [facility] /[address] [place] [address] CHEM PANEL Globulin 2.7 g/dL 2.7 - 4.2 05/25 [facility] /2016 [facility] CHEM PANEL Total 5.7 g/dL 6.4 - 8.4 05/25 [facility] Protein [facility] CHEM PANEL Albumin Lvl 3.0 g/dL 3.5 - 5.0 05/25 [facility] /2016 [facility] CHEM PANEL ALT 14 unit/L 0 - 65 05/25 [facility] /2016 [facility] CHEM PANEL Phosphorus 3.2 mg/dL 2.5 - 4.5 05/25 [facility] /[address] [place] [address] CHEM PANEL Magnesium 1.7 mg/dL 1.8 - 2.4 05/25 [facility] Lvl /2015 [facility] Brain wo Brain wo Examination: MRI brain without contrast 05/25 - [facility] contrast contrast MRI /2015 - [facility] Center DATE: 05/25/2016 Read by: Jaspreet Rodriguez [...] EXAM: XR CHEST 1 VIEW 05/25 - [facility] DX [facility] DATE: 05/26/2016 3:00 AM CDT Read by: Faheem North MD Dictated Date/time: 05/26/16 10:30 Electronically Signed by: Faheem North MD 05/26/16 10:30 FINAL REPORT INDICATION: Respiratory distress COMPARISON: 05/24/2016 TECHNIQUE: AP chest IMPRESSION: 1. Both lungs are clear. Costophrenic recesses are sharp. Cardiomediastinal silhouette within normal limits. No acute osseous abnormalities. BLOOD BANK AB Int Anti-E 05/25 [facility] RESULTS /2015 [facility] BLOOD BANK Path AB Transfusion 05/25 [facility] RESULTS [facility] NoteThis is a 71 y/o male [...] the resident Dr. Lillian Alcantar's interpretat ion.CPT: [id number] BLOOD BANK ABO/Rh O POS 05/25 [facility] RESULTS [facility] BLOOD BANK Antibody Positive 1 05/25 Result Comment: 05/25/2016 01:18 [id number] [facility] RESULTS Scrn "Significant Findings called to Baljinder CAPUTO at 0115 by [email or web address].Read Back OK." [facility] (05/24/16 9:09 PM) [place] 05/25/2016 01:14 [id number] Patient has unexpected antibodies. Allow extra time for additional crossmatches. HEMATOLOGY Max 68 mm 52 - 71 05/25 [facility] HEMATOLOGY G-value 10.4 K d/sc 5.0 - 11.6 05/25 [facility] HEMATOLOGY Estimated % 0.4 % 0.0 - 7.5 05/25 [facility] Lysis [facility] HEMATOLOGY ACT (TEG) 121 s 86 - 118 05/25 [facility] HEMATOLOGY [place] 0.7 min 05/25 [facility] HEMATOLOGY R-time Rapid 0.8 min 0.4 - 0.7 05/25 [facility] HEMATOLOGY K-time Rapid 0.8 min 0.6 - 2.3 05/25 [facility] HEMATOLOGY Angle Rapid 80 degrees 64 - 80 05/25 [facility] HEMATOLOGY Eosinophils 1.7 % 0.0 - 4.0 05/25 [facility] HEMATOLOGY Eosinophils 0.1 K/CMM 0.0 - 0.5 05/25 [facility] # [facility] HEMATOLOGY Basophils # 0.1 K/CMM 0.0 - 0.2 05/25 [facility] HEMATOLOGY PTT 32.0 s 22.9 - 05/25 [facility] 35.8 /2016 [facility] Brain-Outsi Brain-Outsid Exam: CT head without contrast 05/24 [employer] de Consult e Consult CT - Medical [...] 1.8 cm in thickness. Associated 0.8 cm [id number] midline shift. Brain/Neck Brain/Neck EXAM: CT ANGIOGRAM OF THE HEAD 05/24 [employer] CTA CTA /2015 - Medical EXAM: CT [...] P2 to P4 segments of the right MACHINE WASHER compatible w ith diffuse disease. Diffuse changes of centrilobular emphysema in bilateral upper lungs. IMPRESSION: 1. Interval increase in size of the hyperacute subdural hematoma overlying the right cerebral hemisphere now measuring 2.6 cm previously measured 2.0 cm concerning for active bleeding. 2. Diffuse luminal irregularities of distal sylvian branches of the left MCA and distal branches of the right MACHINE WASHER compatible with diffuse atherosclerotic disease. Diffuse arteriosclerosis [...] wo EXAM: CT HEAD WITHOUT CONTRAST 05/24 [employer] contrast CT contrast CT /2016 [facility] DATE: 05/24/2016 8:56 PM CDT Read [...] EXAM: XR CHEST 1 VIEW 05/24 - [facility] DX - Medical This report was dictated by a Senior Investment Manager/Fellow. I have personally reviewed the images as [...] Comments Source Systolic (mm Hg) 178 05/30/2016 [facility] Diastolic (mm Hg) 88 05/30/2016 [facility] Temperature Oral (F) 97.7 F 05/30/2016 [facility] Heart Rate 65 05/30/2016 [facility] Respitory Rate 18 05/30/2016 [facility] Respitory Rate 18 05/30/2016 [facility] Heart Rate 71 05/30/2016 [facility] Systolic (mm Hg) 176 05/30/2016 [facility] Diastolic (mm Hg) 90 05/30/2016 [facility] Temperature Oral (F) 97.8 F 05/30/2016 [facility] Systolic (mm Hg) 113 05/30/2016 [facility] Diastolic (mm Hg) 62 05/30/2016 [facility] Temperature Oral (F) 98.1 F 05/30/2016 [facility] Respitory Rate 16 05/30/2016 [facility] Heart Rate 68 05/30/2016 [facility] BMI Calculated 25.6 05/25/2016 [facility] Weight 76.36 05/25/2016 [facility] Height 172.72 cm 05/25/2016 [facility] Weight 76.364 05/25/2016 [facility] BMI Calculated 26.37 05/25/2016 [facility] Height 170.18 cm 05/25/2016 [facility] Encounters Location Location Encounter Encounter Reason Attending ADM DC Status Source Details Type Number For Provider Date Date Visit [facility] [id number] [place] 05/25 05/30 [facility] Jevon Salguero /2015 [facility] Outpatient [id number] [facility] 06/12 [facility] /2015 [facility] [id number] TRAU[facility] 07/24 [facility] /2015 [facility] Procedures Procedure Code Date Perfomer Comments Source Abdominal aortic [id number] Had MRI after [facility] aneurysm repair Medical stenting<sup>1</ Center sup> Bypass / graft [id number] [facility] Hernia repair [id number] [facility]
--- OUTSIDE RECORDS SUMMARY | 2018-03-22 16:48 | XMS REPORT ---
:1945 Author Organization [facility] Address [address] [place] [address] Dr. Dennison [address] [place] [id number] Care Team Providers Name Role Phone NANDO HDZ Unavailable Unavailable Problems This patient has no known problems. Allergies, Adverse Reactions, Alerts This patient has no known allergies or adverse reactions. Medications This patient has no known medications. Results Test Description Test Time Test Comments Text Results Atomic Results Result Comments TISSUE EXAM 2018-02-09 16:28:00 Surgical Pathology Report Case: [id number] Authorizing Provider: Nando Hdz MD Collected: 02/02/20181941 Ordering Location: [facility] [employer] [employer] [facility] Received: 02/03/2018812 Pathologist: Sidney Wright MD Specimen: Plaque ARTERY, RIGHT EMERALD, ENDARTERECTOMY:CALCIFIC ATHEROSCLEROTIC PLAQUE WITH EROSION AND ATTACHED ORGANIZING THROMBUS Signing Pathologist Direct Phone Line: [phone] signed by Sidney Wright MD on 02/09/2018 at 4:28 [id number]; [id number] femoral artery plaqueRight femoral artery plaqueThe specimen is received in a formalin-filled container and labeled with the patient's information and labeled "right femoral artery plaque and consists of two calcified fragments of tissue both measuring 2 cm in length ranging in diameter from 0.6 to 1 cm and separate segment of hemorrhagic calcified tissue measuring 2.5 x 1.5 x 1 cm in aggregate. Fashion Buyer sections are submitted A1 for decalcification. CG/pl Performed PHOSPHORUS 2018-02-05 06:08:00 Test Item Value Reference Range Comments PHOSPHORUS (BEAKER) (test vlan=195) 2.2 mg/dL 2.3-4.7 [id number] 06:08:00 Test Item Value Reference Range Comments MAGNESIUM (BEAKER) (test dkwh=141) 2.1 mg/dL 1.6-2.6 BASIC METABOLIC [id number] 06:08:00 Test Item Value Reference Range Comments SODIUM (BEAKER) (test 131 meq/L 136-145 etcl=449) POTASSIUM (BEAKER) (test 3.5 meq/L 3.5-5.1 lxhv=409) CHLORIDE (BEAKER) (test 101 meq/L 98-107 lcia=897) CO2 (BEAKER) (test 26 meq/L 22-29 nlez=823) BLOOD UREA NITROGEN 12 mg/dL 7-21 (BEAKER) (test weee=472) CREATININE (BEAKER) (test 0.95 mg/dL 0.57-1.25 coxm=669) GLUCOSE RANDOM (BEAKER) 96 mg/dL 70-105 (test pcvt=070) CALCIUM (BEAKER) (test 8.4 mg/dL 8.4-10.2 osjt=616) EGFR (BEAKER) (test 77 mL/min/1.73 sq m ESTIMATED GFR IS NOT gkkl=0765) ACCURATE CREATININE CLEARANCE IN PREDICTING GLOMERULAR FILTRATION RATE. ESTIMATED GFR IS NOT APPLICABLE FOR DIALYSIS PATIENTS. CBC (HEMOGRAM ONLY)2018-02-05 05:30:00 Test Item Value Reference Range Comments WHITE BLOOD CELL COUNT (BEAKER) (test ofic=279) 6.5 K/ L 3.5-10.5 RED BLOOD CELL COUNT (BEAKER) (test mvpn=578) 3.24 M/ L 4.63-6.08 HEMOGLOBIN (BEAKER) (test ghwd=042) 8.5 GM/DL 13.7-17.5 HEMATOCRIT (BEAKER) (test love=291) 27.4 % 40.1-51.0 MEAN CORPUSCULAR VOLUME (BEAKER) (test oitl=568) 84.6 fL 79.0-92.2 MEAN CORPUSCULAR HEMOGLOBIN (BEAKER) (test 26.2 pg 25.7-32.2 envr=791) MEAN CORPUSCULAR HEMOGLOBIN CONC (BEAKER) (test 31.0 GM/DL 32.3-36.5 zfhn=234) RED CELL DISTRIBUTION WIDTH (BEAKER) (test 18.4 % 11.6-14.4 motc=067) PLATELET COUNT (BEAKER) (test iodv=152) 127 K/CU MM 150-450 MEAN PLATELET VOLUME (BEAKER) (test mqrq=053) 9.8 fL 9.4-12.4 NUCLEATED RED BLOOD CELLS (BEAKER) (test 0 /100 WBC 0-0 eekm=632) HEMOGLOBIN AND [id number] 11:55:00 Test Item Value Reference Range Comments HEMOGLOBIN (BEAKER) (test dgmh=008) 8.4 GM/DL 13.7-17.5 HEMATOCRIT (BEAKER) (test pgig=496) 28.9 % 40.1-51.0 [id number] 04:57:00 Test Item Value Reference Range Comments PHOSPHORUS (BEAKER) (test slzq=208) 2.5 mg/dL 2.3-4.7 [id number] 04:57:00 Test Item Value Reference Range Comments MAGNESIUM (BEAKER) (test glmn=990) 1.7 mg/dL 1.6-2.6 BASIC METABOLIC [id number] 04:57:00 Test Item Value Reference Range Comments SODIUM (BEAKER) (test 131 meq/L 136-145 fgjc=961) POTASSIUM (BEAKER) (test 3.9 meq/L 3.5-5.1 mjkp=528) CHLORIDE (BEAKER) (test 102 meq/L 98-107 qlyg=348) CO2 (BEAKER) (test 25 meq/L 22-29 weye=369) BLOOD UREA NITROGEN 9 mg/dL 7-21 (BEAKER) (test keui=770) CREATININE (BEAKER) (test 0.85 mg/dL 0.57-1.25 diva=454) GLUCOSE RANDOM (BEAKER) 106 mg/dL 70-105 (test qtzi=455) CALCIUM (BEAKER) (test 8.2 mg/dL 8.4-10.2 zron=959) EGFR (BEAKER) (test 88 mL/min/1.73 sq m ESTIMATED GFR IS NOT coqe=7787) ACCURATE CREATININE CLEARANCE IN PREDICTING GLOMERULAR FILTRATION RATE. ESTIMATED GFR IS NOT APPLICABLE FOR DIALYSIS PATIENTS. CBC (HEMOGRAM ONLY)2018-02-04 04:35:00 Test Item Value Reference Range Comments WHITE BLOOD CELL COUNT (BEAKER) (test cmkh=647) 9.4 K/ L 3.5-10.5 RED BLOOD CELL COUNT (BEAKER) (test hyaa=320) 3.15 M/ L 4.63-6.08 HEMOGLOBIN (BEAKER) (test jpml=206) 8.1 GM/DL 13.7-17.5 HEMATOCRIT (BEAKER) (test iyqr=830) 25.5 % 40.1-51.0 MEAN CORPUSCULAR VOLUME (BEAKER) (test fujn=927) 81.0 fL 79.0-92.2 MEAN CORPUSCULAR HEMOGLOBIN (BEAKER) (test 25.7 pg 25.7-32.2 huwm=226) MEAN CORPUSCULAR HEMOGLOBIN CONC (BEAKER) (test 31.8 GM/DL 32.3-36.5 jifu=927) RED CELL DISTRIBUTION WIDTH (BEAKER) (test 18.2 % 11.6-14.4 clfi=369) PLATELET COUNT (BEAKER) (test iqle=801) 125 K/CU MM 150-450 MEAN PLATELET VOLUME (BEAKER) (test jwmp=454) 10.1 fL 9.4-12.4 NUCLEATED RED BLOOD CELLS (BEAKER) (test 0 /100 WBC 0-0 oxqe=792) CBC W/PLT COUNT & AUTO [id number] 15:56:00 Test Item Value Reference Range Comments WHITE BLOOD CELL COUNT (BEAKER) (test kgyr=191) 13.1 K/ L 3.5-10.5 RED BLOOD CELL COUNT (BEAKER) (test mbck=136) 4.01 M/ L 4.63-6.08 HEMOGLOBIN (BEAKER) (test yamc=891) 10.2 GM/DL 13.7-17.5 HEMATOCRIT (BEAKER) (test ldkx=197) 32.3 % 40.1-51.0 MEAN CORPUSCULAR VOLUME (BEAKER) (test hpmb=734) 80.5 fL 79.0-92.2 MEAN CORPUSCULAR HEMOGLOBIN (BEAKER) (test 25.4 pg 25.7-32.2 aaov=229) MEAN CORPUSCULAR HEMOGLOBIN CONC (BEAKER) (test 31.6 GM/DL 32.3-36.5 hdfs=483) RED CELL DISTRIBUTION WIDTH (BEAKER) (test 18.1 % 11.6-14.4 zmqw=625) PLATELET COUNT (BEAKER) (test cprl=568) 162 K/CU MM 150-450 MEAN PLATELET VOLUME (BEAKER) (test opne=247) 10.3 fL 9.4-12.4 NUCLEATED RED BLOOD CELLS (BEAKER) (test 0 /100 WBC 0-0 eboc=856) NEUTROPHILS RELATIVE PERCENT (BEAKER) (test 86 % fkvs=903) LYMPHOCYTES RELATIVE PERCENT (BEAKER) (test 5 % bnbj=434) MONOCYTES RELATIVE PERCENT (BEAKER) (test 7 % uhxh=491) EOSINOPHILS RELATIVE PERCENT (BEAKER) (test 0 % wpqg=714) BASOPHILS RELATIVE PERCENT (BEAKER) (test 0 % llsd=121) NEUTROPHILS ABSOLUTE COUNT (BEAKER) (test 11.26 K/ L 1.78-5.38 avpz=712) LYMPHOCYTES ABSOLUTE COUNT (BEAKER) (test 0.70 K/ L 1.32-3.57 bnki=269) MONOCYTES ABSOLUTE COUNT (BEAKER) (test 0.95 K/ L 0.30-0.82 qpuk=155) EOSINOPHILS ABSOLUTE COUNT (BEAKER) (test 0.00 K/ L 0.04-0.54 jhys=211) BASOPHILS ABSOLUTE COUNT (BEAKER) (test 0.04 K/ L 0.01-0.08 orhd=324) IMMATURE GRANULOCYTES-RELATIVE PERCENT (BEAKER) 1 % 0-1 (test bjif=9749) COMPREHENSIVE METABOLIC [id number] 05:49:00 Test Item Value Reference Range Comments TOTAL PROTEIN (BEAKER) 5.7 gm/dL 6.0-8.3 (test duzj=281) ALBUMIN (BEAKER) (test 3.3 g/dL 3.5-5.0 mjmw=4705) ALKALINE PHOSPHATASE 133 U/L 40-150 (BEAKER) (test mvfz=021) BILIRUBIN TOTAL (BEAKER) 0.8 mg/dL 0.2-1.2 (test ptad=206) SODIUM (BEAKER) (test 134 meq/L 136-145 gpwe=591) POTASSIUM (BEAKER) (test 4.1 meq/L 3.5-5.1 ezvz=755) CHLORIDE (BEAKER) (test 106 meq/L 98-107 gixq=913) CO2 (BEAKER) (test 19 meq/L 22-29 spes=625) BLOOD UREA NITROGEN 6 mg/dL 7-21 (BEAKER) (test bmmv=182) CREATININE (BEAKER) (test 0.88 mg/dL 0.57-1.25 gelj=427) GLUCOSE RANDOM (BEAKER) 163 mg/dL 70-105 (test awmt=842) CALCIUM (BEAKER) (test 8.3 mg/dL 8.4-10.2 yqay=774) AST (SGOT) (BEAKER) (test 12 U/L 5-34 vhjv=111) ALT (SGPT) (BEAKER) (test < U/L 6-55 zkwp=805) EGFR (BEAKER) (test 85 mL/min/1.73 sq m ESTIMATED GFR IS NOT xpfb=1913) ACCURATE CREATININE CLEARANCE IN PREDICTING GLOMERULAR FILTRATION RATE. ESTIMATED GFR IS NOT APPLICABLE FOR DIALYSIS PATIENTS. [id number] 05:48:00 Test Item Value Reference Range Comments PHOSPHORUS (BEAKER) (test zows=609) 2.9 mg/dL 2.3-4.7 [id number] 05:48:00 Test Item Value Reference Range Comments MAGNESIUM (BEAKER) (test uekw=877) 1.7 mg/dL 1.6-2.6 CBC W/PLT COUNT & AUTO [id number] 04:20:00 Test Item Value Reference Range Comments WHITE BLOOD CELL COUNT (BEAKER) (test xzos=418) 15.4 K/ L 3.5-10.5 RED BLOOD CELL COUNT (BEAKER) (test uisp=276) 4.13 M/ L 4.63-6.08 HEMOGLOBIN (BEAKER) (test xrbc=694) 10.7 GM/DL 13.7-17.5 HEMATOCRIT (BEAKER) (test rvqw=045) 34.3 % 40.1-51.0 MEAN CORPUSCULAR VOLUME (BEAKER) (test grcl=404) 83.1 fL 79.0-92.2 MEAN CORPUSCULAR HEMOGLOBIN (BEAKER) (test 25.9 pg 25.7-32.2 wjjz=194) MEAN CORPUSCULAR HEMOGLOBIN CONC (BEAKER) (test 31.2 GM/DL 32.3-36.5 matk=474) RED CELL DISTRIBUTION WIDTH (BEAKER) (test 17.9 % 11.6-14.4 vvic=111) PLATELET COUNT (BEAKER) (test htaf=390) 33 K/CU MM 150-450 MEAN PLATELET VOLUME (BEAKER) (test gupj=323) 10.0 fL 9.4-12.4 NUCLEATED RED BLOOD CELLS (BEAKER) (test 0 /100 WBC 0-0 wogb=090) NEUTROPHILS RELATIVE PERCENT (BEAKER) (test 91 % rndq=172) LYMPHOCYTES RELATIVE PERCENT (BEAKER) (test 3 % dzuu=875) MONOCYTES RELATIVE PERCENT (BEAKER) (test 4 % sjdx=904) EOSINOPHILS RELATIVE PERCENT (BEAKER) (test 0 % eslu=664) BASOPHILS RELATIVE PERCENT (BEAKER) (test 0 % ffai=043) NEUTROPHILS ABSOLUTE COUNT (BEAKER) (test 14.01 K/ L 1.78-5.38 yjkq=285) LYMPHOCYTES ABSOLUTE COUNT (BEAKER) (test 0.46 K/ L 1.32-3.57 mnkc=707) MONOCYTES ABSOLUTE COUNT (BEAKER) (test mjxj=734) 0.64 K/ L 0.30-0.82 EOSINOPHILS ABSOLUTE COUNT (BEAKER) (test 0.01 K/ L 0.04-0.54 ccbs=681) BASOPHILS ABSOLUTE COUNT (BEAKER) (test cuec=099) 0.05 K/ L 0.01-0.08 IMMATURE GRANULOCYTES-RELATIVE PERCENT (BEAKER) 1 % 0-1 (test vqvo=0523) VANCOMYCIN LEVEL, [id number] 23:58:00 Test Item Value Reference Range Comments VANCOMYCIN TROUGH (BEAKER) (test esou=884) < ug/mL 10.0-20.0 PROTHROMBIN TIME/[id number] 23:27:00 Test Item Value Reference Range Comments PROTIME (BEAKER) (test tdft=430) 15.6 seconds 11.7-14.7 INR (BEAKER) (test duft=540) 1.2 <=5.9 RECOMMENDED COUMADIN/WARFARIN INR THERAPY RANGESSTANDARD DOSE: 2.0 - 3.0 Includes: PROPHYLAXIS forvenous thrombosis, systemic embolization; TREATMENT for venous thrombosis and/or pulmonary embolus.HIGH RISK: Target INR is 2.5-3.5 for patients with mechanical heart valves.[id number] 23:27:00 Test Item Value Reference Range Comments FIBRINOGEN LEVEL (BEAKER) (test vevv=574) 276 mg/dl 225-434 [id number] 23:27:00 Test Item Value Reference Range Comments PARTIAL THROMBOPLASTIN TIME (BEAKER) (test 29.8 seconds 22.5-36.0 rfpy=116) CBC W/PLT COUNT & AUTO [id number] 23:22:00 Test Item Value Reference Range Comments WHITE BLOOD CELL COUNT (BEAKER) (test apch=037) 18.8 K/ L 3.5-10.5 RED BLOOD CELL COUNT (BEAKER) (test mknu=512) 4.49 M/ L 4.63-6.08 HEMOGLOBIN (BEAKER) (test ueqj=918) 11.3 GM/DL 13.7-17.5 HEMATOCRIT (BEAKER) (test paaa=580) 37.7 % 40.1-51.0 MEAN CORPUSCULAR VOLUME (BEAKER) (test drsn=471) 84.0 fL 79.0-92.2 MEAN CORPUSCULAR HEMOGLOBIN (BEAKER) (test 25.2 pg 25.7-32.2 vxdy=734) MEAN CORPUSCULAR HEMOGLOBIN CONC (BEAKER) (test 30.0 GM/DL 32.3-36.5 cjfp=584) RED CELL DISTRIBUTION WIDTH (BEAKER) (test 17.5 % 11.6-14.4 gtoz=550) PLATELET COUNT (BEAKER) (test bzey=769) 196 K/CU MM 150-450 MEAN PLATELET VOLUME (BEAKER) (test tlaw=920) 10.0 fL 9.4-12.4 NUCLEATED RED BLOOD CELLS (BEAKER) (test 0 /100 WBC 0-0 ynvx=621) NEUTROPHILS RELATIVE PERCENT (BEAKER) (test 89 % gnlz=180) LYMPHOCYTES RELATIVE PERCENT (BEAKER) (test 3 % mbob=625) MONOCYTES RELATIVE PERCENT (BEAKER) (test 6 % yqwc=195) EOSINOPHILS RELATIVE PERCENT (BEAKER) (test 0 % ealx=549) BASOPHILS RELATIVE PERCENT (BEAKER) (test 0 % svvp=910) NEUTROPHILS ABSOLUTE COUNT (BEAKER) (test 16.79 K/ L 1.78-5.38 jdoo=223) LYMPHOCYTES ABSOLUTE COUNT (BEAKER) (test 0.60 K/ L 1.32-3.57 afbh=310) MONOCYTES ABSOLUTE COUNT (BEAKER) (test 1.17 K/ L 0.30-0.82 sbqz=518) EOSINOPHILS ABSOLUTE COUNT (BEAKER) (test 0.02 K/ L 0.04-0.54 icsb=725) BASOPHILS ABSOLUTE COUNT (BEAKER) (test 0.04 K/ L 0.01-0.08 imis=123) IMMATURE GRANULOCYTES-RELATIVE PERCENT (BEAKER) 1 % 0-1 (test pivz=1802) [id number] 23:21:00 Test Item Value Reference Range Comments PHOSPHORUS (BEAKER) (test camt=115) 3.1 mg/dL 2.3-4.7 [id number] 23:21:00 Test Item Value Reference Range Comments MAGNESIUM (BEAKER) (test jlse=966) 1.7 mg/dL 1.6-2.6 BASIC METABOLIC [id number] 23:21:00 Test Item Value Reference Range Comments SODIUM (BEAKER) (test 133 meq/L 136-145 qvhr=571) POTASSIUM (BEAKER) (test 4.2 meq/L 3.5-5.1 zigi=041) CHLORIDE (BEAKER) (test 105 meq/L 98-107 gktz=242) CO2 (BEAKER) (test 17 meq/L 22-29 afqb=492) BLOOD UREA NITROGEN 7 mg/dL 7-21 (BEAKER) (test mudk=467) CREATININE (BEAKER) (test 0.99 mg/dL 0.57-1.25 rsve=583) GLUCOSE RANDOM (BEAKER) 155 mg/dL 70-105 (test tzgq=854) CALCIUM (BEAKER) (test 8.3 mg/dL 8.4-10.2 mrpk=213) EGFR (BEAKER) (test 74 mL/min/1.73 sq m ESTIMATED GFR IS NOT jxlj=3234) ACCURATE CREATININE CLEARANCE IN PREDICTING GLOMERULAR FILTRATION RATE. ESTIMATED GFR IS NOT APPLICABLE FOR DIALYSIS PATIENTS. HEPATIC FUNCTION [id number] 23:21:00 Test Item Value Reference Range Comments TOTAL PROTEIN (BEAKER) (test hvqi=307) 5.8 gm/dL 6.0-8.3 ALBUMIN (BEAKER) (test tnyi=9755) 3.5 g/dL 3.5-5.0 BILIRUBIN TOTAL (BEAKER) (test qeeo=982) 1.5 mg/dL 0.2-1.2 BILIRUBIN DIRECT (BEAKER) (test tegn=871) 0.8 mg/dL 0.1-0.5 ALKALINE PHOSPHATASE (BEAKER) (test kpkt=959) 142 U/L 40-150 AST (SGOT) (BEAKER) (test nvoo=903) 12 U/L 5-34 ALT (SGPT) (BEAKER) (test yywk=791) 7 U/L 6-55 LACTIC ACID, ARTERIAL, WHOLE [id number] 23:15:00 Test Item Value Reference Range Comments LACTATE BLOOD ARTERIAL (2) (BEAKER) (test 1.7 mmol/L 0.5-2.2 pakt=3465) Effective 12/12/2015: Units/Reference Range ChangeNew: 0.5-2.2 mmol/L Previous: 5 -20 mg/dLRAD, CHEST, 1 VIEW, NON [id number] 23:12:00Reason for exam:->s/ p cardiac surgeryShould this [...] MDReport Verified Date/Time: 02/02/2018 23:12:37 Reading Location: [facility] [id number] Consult Reading Room Electronicallysigned by: DENZEL LANGLEY MD on 02/02/2018 11:12 PMHEMOGLOBIN AND [id number] 23:06:00 Test Item Value Reference Range Comments HEMOGLOBIN (BEAKER) (test ttfi=545) 11.3 GM/DL 13.7-17.5 HEMATOCRIT (BEAKER) (test vmbw=144) 37.7 % 40.1-51.0 CALCIUM, [id number] 22:57:00 Test Item Value Reference Range Comments CALCIUM IONIZED (BEAKER) (test cqct=249) 1.02 mmol/L 1.12-1.27 PH, BLOOD (BEAKER) (test hhgw=4590) 7.38 OXYGEN SATURATION, [id number] 22:56:00 Test Item Value Reference Range Comments O2 SATURATION (MEASURED) (BEAKER) (test oymc=4137) 72.2 % PROTHROMBIN TIME/[id number] 19:20:00 Test Item Value Reference Range Comments PROTIME (BEAKER) (test kgbf=269) 17.6 seconds 11.7-14.7 INR (BEAKER) (test dnbx=405) 1.5 <=5.9 RECOMMENDED COUMADIN/WARFARIN INR THERAPY RANGESSTANDARD DOSE: 2.0 - 3.0 Includes: PROPHYLAXIS forvenous thrombosis, systemic embolization; TREATMENT for venous thrombosis and/or pulmonary embolus.HIGH RISK: Target INR is 2.5-3.5 for patients with mechanical heart valves.[id number] 19:20:00 Test Item Value Reference Range Comments FIBRINOGEN LEVEL (BEAKER) (test epty=124) 240 mg/dl 225-434 [id number] 19:20:00 Test Item Value Reference Range Comments PARTIAL THROMBOPLASTIN TIME (BEAKER) (test 33.3 seconds 22.5-36.0 qksr=806) PLATELET [id number] 19:00:00 Test Item Value Reference Range Comments PLATELET COUNT (BEAKER) (test bsst=082) 149 K/CU MM 150-450 POTASSIUM-STAT [id number] 18:54:00 Test Item Value Reference Range Comments POTASSIUM (BEAKER) (test oxuo=600) 4.2 meq/L 3.6-5.5 HEMOGLOBIN-STAT [id number] 18:54:00 Test Item Value Reference Range Comments HEMOGLOBIN (BEAKER) (test ocud=908) 9.9 g/dL 13.0-16.8 HEMATOCRIT-STAT [id number] 18:54:00 Test Item Value Reference Range Comments HEMATOCRIT (BEAKER) (test ewga=952) 29.0 % 40.0-50.0 BLOOD GAS, [id number] 18:54:00 Test Item Value Reference Range Comments PH ARTERIAL (BEAKER) (test wrec=049) 7.37 7.35-7.45 PCO2 ARTERIAL (BEAKER) (test zhmb=739) 39 mmHg 35-45 PO2 ARTERIAL (BEAKER) (test qdmm=716) 229 mmHg 80-90 O2 SATURATION ARTERIAL (BEAKER) (test fkmd=476) 99.5 % 96.0-97.0 HCO3 ARTERIAL (BEAKER) (test otnb=485) 22 mmol/L 21-29 BASE EXCESS ARTERIAL (BEAKER) (test dqwu=423) -3.4 mmol/L -2.0-3.0 PATIENT TEMPERATURE (BEAKER) (test egkz=7648) 37.0 C SODIUM NA-STAT [id number] 18:54:00 Test Item Value Reference Range Comments SODIUM (BEAKER) (test ctav=190) 133 meq/L 135-148 GLUCOSE-STAT [id number] 18:54:00 Test Item Value Reference Range Comments GLUCOSE RANDOM (BEAKER) (test iyxd=699) 134 mg/dL 70-110 HGB/HCT (H&H) - STAT [id number] 18:54:00 Test Item Value Reference Range Comments HEMOGLOBIN (BEAKER) (test kdrh=337) 9.9 GM/DL 13.0-16.8 HEMATOCRIT (BEAKER) (test larf=782) 29.0 % 40.0-50.0 CALCIUM, [id number] 18:54:00 Test Item Value Reference Range Comments CALCIUM IONIZED (BEAKER) (test vnuq=661) 1.03 mmol/L 1.12-1.27 PH, BLOOD (BEAKER) (test umfx=7323) 7.37 CALCIUM, [id number] 18:13:00 Test Item Value Reference Range Comments CALCIUM IONIZED (BEAKER) (test kjwj=943) 1.02 mmol/L 1.12-1.27 PH, BLOOD (BEAKER) (test kwhl=3928) 7.36 [id number] 17:42:00 Test Item Value Reference Range Comments ACTIVATED CLOTTING TIME 279 sec TESTED AT [place] [id number] [facility] (BEAKER) (test uiba=626) [place] [id number] 17:42:00 Test Item Value Reference Range Comments ACTIVATED CLOTTING TIME 224 sec TESTED AT [place] [address] [facility] (BEAKER) (test mrya=654) [place] [address] [id number] 17:42:00 Test Item Value Reference Range Comments ACTIVATED CLOTTING TIME 158 sec TESTED AT [place] [address] [facility] (BEAKER) (test ozwy=304) [place] [address] HGB/HCT (H&H) - STAT [id number] 16:30:00 Test Item Value Reference Range Comments HEMOGLOBIN (BEAKER) (test hwuu=247) 9.9 GM/DL 13.0-16.8 HEMATOCRIT (BEAKER) (test fqvj=340) 29.0 % 40.0-50.0 POTASSIUM-STAT [id number] 16:30:00 Test Item Value Reference Range Comments POTASSIUM (BEAKER) (test kaux=312) 3.7 meq/L 3.6-5.5 SODIUM NA-STAT [id number] 16:30:00 Test Item Value Reference Range Comments SODIUM (BEAKER) (test clsz=014) 134 meq/L 135-148 GLUCOSE-STAT [id number] 16:30:00 Test Item Value Reference Range Comments GLUCOSE RANDOM (BEAKER) (test ecvb=841) 105 mg/dL 70-110 [id number] 16:17:00 Test Item Value Reference Range Comments ACTIVATED CLOTTING TIME 301 sec TESTED AT [facility] [address] [facility] (BEAKER) (test qvob=236) [facility] [address] BLOOD GAS, [id number] 16:16:00 Test Item Value Reference Range Comments PH ARTERIAL (BEAKER) (test hrkw=870) 7.42 7.35-7.45 PCO2 ARTERIAL (BEAKER) (test sdbi=657) 40 mmHg 35-45 PO2 ARTERIAL (BEAKER) (test jvdn=965) 205 mmHg 80-90 O2 SATURATION ARTERIAL (BEAKER) (test mrbp=326) 99.4 % 96.0-97.0 HCO3 ARTERIAL (BEAKER) (test bxum=533) 25 mmol/L 21-29 BASE EXCESS ARTERIAL (BEAKER) (test zamw=608) 0.8 mmol/L -2.0-3.0 PATIENT TEMPERATURE (BEAKER) (test fpzn=9084) 37.0 C CALCIUM, [id number] 16:11:00 Test Item Value Reference Range Comments CALCIUM IONIZED (BEAKER) (test ohpj=086) 1.09 mmol/L 1.12-1.27 PH, BLOOD (BEAKER) (test jlbc=6434) 7.42 MR, MRA, EXTREMITY, LOWER, WITHOUT FOLLOW, WITH [id number] 17:43: 00Bilateral extremitiesNando Hdz MD [facility] Yoni Hdz MD [facility] Professor [facility]Co Senior Sales Assistant of P[employer] Services at [facility] of Peripheral [facility]ascular Medicine at [place] [id number] [place], [place] [email or web address] MRA of the lower extremities, 28 [...] reconstruction was performed by an independent workstation (Quintura). Please refer to the contrast sheetscanned in [...] CT scan. The proximal abdominal aorta is cabazon. The celiac axis, SMA are patent with [...] coil embolisation procedure as per EPIC. The cabazon left external iliac artery and the left [...] centimeters of the left SFA could be cabazon. However, there is likely a left femoral [...] posterior tibial artery. In the right, the cabazon right SFA is seen to be occluded. [...] though thereafter, it is occluded. 4. The cabazon left SFA is likely occluded and a left femoral to distal popliteal bypass graft is identified that is patent with no proximal or distal anastomotic stenosis. Essentially three-vessel runoff is seen in the left lower extremity. 5. In the right, the cabazon right SFA is occluded. It appears patient [...] MDReport Verified Date/Time: 01/28/2018 17:43:09 [place] Location: [place] [address] Cardiology MRI [facility] METABOLIC [id number] 07 :36:00 Test Item Value Reference Range Comments SODIUM (BEAKER) (test 135 meq/L 136-145 ghjn=497) POTASSIUM (BEAKER) (test 4.3 meq/L 3.5-5.1 kxun=211) CHLORIDE (BEAKER) (test 103 meq/L 98-107 izdv=787) CO2 (BEAKER) (test 25 meq/L 22-29 koas=573) BLOOD UREA NITROGEN 8 mg/dL 7-21 (BEAKER) (test fpcc=480) CREATININE (BEAKER) (test 1.09 mg/dL 0.57-1.25 rvan=978) GLUCOSE RANDOM (BEAKER) 92 mg/dL 70-105 (test rocw=692) CALCIUM (BEAKER) (test 8.6 mg/dL 8.4-10.2 xcap=833) EGFR (BEAKER) (test 66 mL/min/1.73 sq m ESTIMATED GFR IS NOT xlht=5498) ACCURATE CREATININE CLEARANCE IN PREDICTING GLOMERULAR FILTRATION RATE. ESTIMATED GFR IS NOT APPLICABLE FOR DIALYSIS PATIENTS. CBC (HEMOGRAM ONLY)2018-01-28 07:17:00 Test Item Value Reference Range Comments WHITE BLOOD CELL COUNT (BEAKER) (test ykro=319) 5.4 K/ L 3.5-10.5 RED BLOOD CELL COUNT (BEAKER) (test euyo=728) 3.83 M/ L 4.63-6.08 HEMOGLOBIN (BEAKER) (test bomm=444) 9.6 GM/DL 13.7-17.5 HEMATOCRIT (BEAKER) (test faqq=908) 31.1 % 40.1-51.0 MEAN CORPUSCULAR VOLUME (BEAKER) (test naba=106) 81.2 fL 79.0-92.2 MEAN CORPUSCULAR HEMOGLOBIN (BEAKER) (test 25.1 pg 25.7-32.2 glvy=121) MEAN CORPUSCULAR HEMOGLOBIN CONC (BEAKER) (test 30.9 GM/DL 32.3-36.5 pjay=243) RED CELL DISTRIBUTION WIDTH (BEAKER) (test 18.7 % 11.6-14.4 mhip=446) PLATELET COUNT (BEAKER) (test dcfr=141) 167 K/CU MM 150-450 MEAN PLATELET VOLUME (BEAKER) (test graz=241) 9.4 fL 9.4-12.4 NUCLEATED RED BLOOD CELLS (BEAKER) (test 0 /100 WBC 0-0 ulfb=650) PROTHROMBIN [id number] 14:15:00 Test Item Value Reference Range Comments PROTIME (BEAKER) (test nsue=414) 14.8 seconds 11.7-14.7 INR (BEAKER) (test sqlj=700) 1.2 <=5.9 RECOMMENDED COUMADIN/WARFARIN INR THERAPY RANGESSTANDARD DOSE: 2.0 - 3.0 Includes: PROPHYLAXIS forvenous thrombosis, systemic embolization; TREATMENT for venous thrombosis and/or pulmonary embolus.HIGH RISK: Target INR is 2.5-3.5 for patients with mechanical heart valves.Within 24 hours, if on CoumadinBASIC METABOLIC [id number] 06:41:00 Test Item Value Reference Range Comments SODIUM (BEAKER) (test 131 meq/L 136-145 gkzp=423) POTASSIUM (BEAKER) (test 3.8 meq/L 3.5-5.1 nska=288) CHLORIDE (BEAKER) (test 96 meq/L 98-107 ezjw=410) CO2 (BEAKER) (test 28 meq/L 22-29 oirt=460) BLOOD UREA NITROGEN 9 mg/dL 7-21 (BEAKER) (test hahe=933) CREATININE (BEAKER) (test 0.95 mg/dL 0.57-1.25 qxcd=987) GLUCOSE RANDOM (BEAKER) 110 mg/dL 70-105 (test slzp=871) CALCIUM (BEAKER) (test 8.4 mg/dL 8.4-10.2 ueqc=822) EGFR (BEAKER) (test 77 mL/min/1.73 sq m ESTIMATED GFR IS NOT ezqe=1539) ACCURATE CREATININE CLEARANCE IN PREDICTING GLOMERULAR FILTRATION RATE. ESTIMATED GFR IS NOT APPLICABLE FOR DIALYSIS PATIENTS. CBC (HEMOGRAM ONLY)2017-12-10 05:53:00 Test Item Value Reference Range Comments WHITE BLOOD CELL COUNT (BEAKER) (test taeq=793) 8.3 K/ L 3.5-10.5 RED BLOOD CELL COUNT (BEAKER) (test aixn=044) 3.40 M/ L 4.63-6.08 HEMOGLOBIN (BEAKER) (test xkxy=272) 8.3 GM/DL 13.7-17.5 HEMATOCRIT (BEAKER) (test kzxd=827) 27.9 % 40.1-51.0 MEAN CORPUSCULAR VOLUME (BEAKER) (test vtwt=952) 82.1 fL 79.0-92.2 MEAN CORPUSCULAR HEMOGLOBIN (BEAKER) (test 24.4 pg 25.7-32.2 jsgq=669) MEAN CORPUSCULAR HEMOGLOBIN CONC (BEAKER) (test 29.7 GM/DL 32.3-36.5 ctkh=301) RED CELL DISTRIBUTION WIDTH (BEAKER) (test 20.0 % 11.6-14.4 jkiq=934) PLATELET COUNT (BEAKER) (test mfoh=560) 276 K/CU MM 150-450 MEAN PLATELET VOLUME (BEAKER) (test hdyv=095) 10.2 fL 9.4-12.4 NUCLEATED RED BLOOD CELLS (BEAKER) (test 0 /100 WBC 0-0 thil=912) BLOOD GAS, [id number] 10:39:00 Test Item Value Reference Range Comments PH ARTERIAL (BEAKER) (test obng=015) 7.33 7.35-7.45 PCO2 ARTERIAL (BEAKER) (test lhhk=975) 48 mmHg 35-45 PO2 ARTERIAL (BEAKER) (test huzq=006) 198 mmHg 80-90 O2 SATURATION ARTERIAL (BEAKER) (test tunq=934) 99.3 % 96.0-97.0 HCO3 ARTERIAL (BEAKER) (test xvjw=513) 25 mmol/L 21-29 BASE EXCESS ARTERIAL (BEAKER) (test ckij=982) -1.5 mmol/L -2.0-3.0 PATIENT TEMPERATURE (BEAKER) (test rchu=4156) 36.2 C FIO2 (BEAKER) (test eurw=7148) 46.0 % SODIUM NA-STAT [id number] 10:39:00 Test Item Value Reference Range Comments SODIUM (BEAKER) (test jwoh=211) 131 meq/L 135-148 POTASSIUM-STAT [id number] 10:39:00 Test Item Value Reference Range Comments POTASSIUM (BEAKER) (test dllv=458) 3.1 meq/L 3.6-5.5 GLUCOSE-STAT [id number] 10:39:00 Test Item Value Reference Range Comments GLUCOSE RANDOM (BEAKER) (test mdzs=357) 121 mg/dL 70-110 HGB/HCT (H&H) - STAT [id number] 10:39:00 Test Item Value Reference Range Comments HEMOGLOBIN (BEAKER) (test jgrc=552) 8.1 g/dL 13.0-16.8 HEMATOCRIT (BEAKER) (test kber=017) 24.0 % 40.0-50.0 [id number] 10:10:00 Test Item Value Reference Range Comments ACTIVATED CLOTTING TIME 224 sec TESTED AT [facility] [address] [facility] (BEAKER) (test gbpy=032) [facility] [address] CBC (HEMOGRAM ONLY)2017-12-05 06:51:00 Test Item Value Reference Range Comments WHITE BLOOD CELL COUNT (BEAKER) (test pmkf=317) 6.4 K/ L 3.5-10.5 RED BLOOD CELL COUNT (BEAKER) (test atee=616) 3.63 M/ L 4.63-6.08 HEMOGLOBIN (BEAKER) (test augi=100) 9.0 GM/DL 13.7-17.5 HEMATOCRIT (BEAKER) (test ybvr=502) 30.4 % 40.1-51.0 MEAN CORPUSCULAR VOLUME (BEAKER) (test ixfx=846) 83.7 fL 79.0-92.2 MEAN CORPUSCULAR HEMOGLOBIN (BEAKER) (test 24.8 pg 25.7-32.2 yiwv=412) MEAN CORPUSCULAR HEMOGLOBIN CONC (BEAKER) (test 29.6 GM/DL 32.3-36.5 jrrn=999) RED CELL DISTRIBUTION WIDTH (BEAKER) (test 20.3 % 11.6-14.4 lkcl=288) PLATELET COUNT (BEAKER) (test sopu=135) 275 K/CU MM 150-450 MEAN PLATELET VOLUME (BEAKER) (test fzpb=797) 9.8 fL 9.4-12.4 NUCLEATED RED BLOOD CELLS (BEAKER) (test 0 /100 WBC 0-0 xbdt=492) BASIC METABOLIC [id number] 06:44:00 Test Item Value Reference Range Comments SODIUM (BEAKER) (test 134 meq/L 136-145 nzqc=850) POTASSIUM (BEAKER) (test 4.1 meq/L 3.5-5.1 qziu=265) CHLORIDE (BEAKER) (test 102 meq/L 98-107 jzrt=162) CO2 (BEAKER) (test 24 meq/L 22-29 hxov=588) BLOOD UREA NITROGEN 9 mg/dL 7-21 (BEAKER) (test vvmm=227) CREATININE (BEAKER) (test 1.01 mg/dL 0.57-1.25 omym=100) GLUCOSE RANDOM (BEAKER) 93 mg/dL 70-105 (test umdc=239) CALCIUM (BEAKER) (test 8.7 mg/dL 8.4-10.2 mttr=419) EGFR (BEAKER) (test 72 mL/min/1.73 sq m ESTIMATED GFR IS NOT vaww=3461) ACCURATE CREATININE CLEARANCE IN PREDICTING GLOMERULAR FILTRATION RATE. ESTIMATED GFR IS NOT APPLICABLE FOR DIALYSIS PATIENTS. [id number] 12:39:00 Test Item Value Reference Range Comments ACTIVATED CLOTTING TIME 136 sec TESTED AT [place] [id number] (BEAKER) (test vnlj=148) [place] [address] [id number] 11:51:00 Test Item Value Reference Range Comments ACTIVATED CLOTTING TIME 147 sec TESTED AT [facility] [address] (BEAKER) (test pbhv=285) [place] [address] [id number] 09:21:00 Test Item Value Reference Range Comments ACTIVATED CLOTTING TIME 213 sec TESTED AT [facility] [address] [place] (BEAKER) (test dhck=550) [place] [address] [id number] 08:58:00 Test Item Value Reference Range Comments ACTIVATED CLOTTING TIME 191 sec TESTED AT [place] [address] [place] (BEAKER) (test oluy=726) [facility] [address] [address], CTA [id number] 11:56:00Addendum BeginsREPORT STATUS:A Addendum: The images were reviewed with Dr. Hdz. There is a missing dictation, specifically, despite the aortic bypass surgery the cabazon left common iliac artery is still patent [...] MDReport Verified Date/Time: 11/27/2017 11:56:33 Reading Location: [facility] P047 Cardiology MRIAddendum EndsAddendum BeginsREPORT STATUS:A ADDENDUM: [...] [place] MDReport Verified Date/Time: 18:03:42 Reading Location: [facility] P048 Angio Body Reading RoomAddendum EndsFINAL REPORT [...] takeoff of the left renal artery with ligm-ak-tljxhpjv stenosis identified. Arch vessel branching pattern is [...] 8.2 mm, respectively with mild tortuosity and yeci-wb-lmsvmngt calcific atherosclerosis present. Right iliac limb is [...] dictated, however, the ordering physician is the CONSULTING MARINE ENGINEER TELEPHONE LINEWORKER of the [facility] and therefore no recommendation would be necessary. [...] An addendum will be dictated by the Casserole Preparer Radiologist regarding the nonvascular findings. Signed: Juwan Echols MDReport Verified Date/Time: 11/26/2017 16:25:25 Reading Location: [place] [address] Cardiology MRI Electronically signed by: JUWAN ECHOLS M.D. on 2017 11:56 AMCT, CTA, [id number] 11:56:00Addendum BeginsREPORT STATUS:A Addendum: The images were reviewed with Dr. Hdz. There is a missing dictation, specifically, despite the aortic bypass surgery the cabaz[place] left common iliac artery is still patent [...] MDReport Verified Date/Time: 11/27/2017 11:56:33 Reading Location: [place] [address] Cardiology MRIAddendum EndsAddendum BeginsREPORT STATUS:A ADDENDUM: Study [...] [place] MDRyuort Verified Date/Time: 18:03:42 Reading Location: [place] [id number] Angio Body Reading RoomAddendum EndsFINAL REPORT CT [...] takeoff of the left renal artery with zyqa-lx-iqirsbgh stenosis identified. Arch vessel branching pattern is [...] 8.2 mm, respectively with mild tortuosity and qbaq-hg-vlnoueyg calcific atherosclerosis present. Right iliac limb is [...] dictated, however, the ordering physician is the CONSULTING MARINE ENGINEER TELEPHONE LINEWORKER of the [facility] and therefore no recommendation would be necessary. [...] An addendum will be dictated by the Casserole Preparer Radiologist regarding the nonvascular findings. Signed: Juwan Echols MDReport Verified Date/Time: 11/26/2017 16:25:25 Reading Location: [place] [address] Cardiology MRI Electronically signed by: JUWAN ECHOLS M.D. on 2017 11:56 AMB-TYPE NATRIURETIC FACTOR (BNP)2017-11-26 18:03:00 Test Item Value Reference Range Comments B-TYPE NATRIURETIC PEPTIDE (BEAKER) (test 142 pg/mL 0-100 ctmw=963) COMPREHENSIVE METABOLIC [id number] 17:56:00 Test Item Value Reference Range Comments TOTAL PROTEIN (BEAKER) 6.8 gm/dL 6.0-8.3 (test zygr=935) ALBUMIN (BEAKER) (test 3.9 g/dL 3.5-5.0 xcod=0017) ALKALINE PHOSPHATASE 133 U/L 40-150 (BEAKER) (test ocdo=183) BILIRUBIN TOTAL (BEAKER) 0.4 mg/dL 0.2-1.2 (test chje=723) SODIUM (BEAKER) (test 135 meq/L 136-145 ptpj=574) POTASSIUM (BEAKER) (test 4.3 meq/L 3.5-5.1 ozfr=627) CHLORIDE (BEAKER) (test 99 meq/L 98-107 ywfp=186) CO2 (BEAKER) (test 26 meq/L 22-29 chic=437) BLOOD UREA NITROGEN 6 mg/dL 7-21 (BEAKER) (test czvb=351) CREATININE (BEAKER) (test 1.14 mg/dL 0.57-1.25 pccu=224) GLUCOSE RANDOM (BEAKER) 104 mg/dL 70-105 (test ptcc=041) CALCIUM (BEAKER) (test 8.9 mg/dL 8.4-10.2 olco=870) AST (SGOT) (BEAKER) (test 12 U/L 5-34 oesy=978) ALT (SGPT) (BEAKER) (test 7 U/L 6-55 aqii=548) EGFR (BEAKER) (test 63 mL/min/1.73 sq m ESTIMATED GFR IS NOT rghe=9013) ACCURATE CREATININE CLEARANCE IN PREDICTING GLOMERULAR FILTRATION RATE. ESTIMATED GFR IS NOT APPLICABLE FOR DIALYSIS PATIENTS. PROTHROMBIN [id number] 17:33:00 Test Item Value Reference Range Comments PROTIME (BEAKER) (test jfor=829) 16.5 seconds 11.7-14.7 INR (BEAKER) (test zdqe=983) 1.3 <=5.9 RECOMMENDED COUMADIN/WARFARIN INR THERAPY RANGESSTANDARD DOSE: 2.0 - 3.0 Includes: PROPHYLAXIS forvenous thrombosis, systemic embolization; TREATMENT for venous thrombosis and/or pulmonary embolus.HIGH RISK: Target INR is 2.5-3.5 for patients with mechanical heart valves.CBC W/PLT COUNT & AUTO [id number] 17:24:00 Test Item Value Reference Range Comments WHITE BLOOD CELL COUNT (BEAKER) (test wfcx=353) 7.7 K/ L 3.5-10.5 RED BLOOD CELL COUNT (BEAKER) (test hunr=914) 3.66 M/ L 4.63-6.08 HEMOGLOBIN (BEAKER) (test yaxy=267) 9.1 GM/DL 13.7-17.5 HEMATOCRIT (BEAKER) (test oceo=496) 31.7 % 40.1-51.0 MEAN CORPUSCULAR VOLUME (BEAKER) (test orwg=262) 86.6 fL 79.0-92.2 MEAN CORPUSCULAR HEMOGLOBIN (BEAKER) (test 24.9 pg 25.7-32.2 wkvt=238) MEAN CORPUSCULAR HEMOGLOBIN CONC (BEAKER) (test 28.7 GM/DL 32.3-36.5 rqwq=691) RED CELL DISTRIBUTION WIDTH (BEAKER) (test 19.5 % 11.6-14.4 xaqo=437) PLATELET COUNT (BEAKER) (test icbf=577) 243 K/CU MM 150-450 MEAN PLATELET VOLUME (BEAKER) (test pnlp=505) 10.0 fL 9.4-12.4 NUCLEATED RED BLOOD CELLS (BEAKER) (test 0 /100 WBC 0-0 vhfn=886) NEUTROPHILS RELATIVE PERCENT (BEAKER) (test 73 % yeal=465) LYMPHOCYTES RELATIVE PERCENT (BEAKER) (test 13 % rmvl=634) MONOCYTES RELATIVE PERCENT (BEAKER) (test 9 % xgqc=980) EOSINOPHILS RELATIVE PERCENT (BEAKER) (test 4 % oznh=392) BASOPHILS RELATIVE PERCENT (BEAKER) (test 1 % zctn=955) NEUTROPHILS ABSOLUTE COUNT (BEAKER) (test 5.64 K/ L 1.78-5.38 hgiv=825) LYMPHOCYTES ABSOLUTE COUNT (BEAKER) (test 0.98 K/ L 1.32-3.57 ifnk=669) MONOCYTES ABSOLUTE COUNT (BEAKER) (test 0.69 K/ L 0.30-0.82 dhyz=594) EOSINOPHILS ABSOLUTE COUNT (BEAKER) (test 0.30 K/ L 0.04-0.54 kqaz=619) BASOPHILS ABSOLUTE COUNT (BEAKER) (test 0.05 K/ L 0.01-0.08 ello=107) IMMATURE GRANULOCYTES-RELATIVE PERCENT (BEAKER) 0 % 0-1 (test htli=7313) [id number] 12:34:00 Test Item Value Reference Range Comments POC-CREATININE (BEAKER) 1.1 mg/dL 0.6-1.3 TESTED AT [facility] [address] [facility] (test zsfo=1640) [facility] [address] POC-EGFR (BEAKER) (test 65 mL/min/1.73M2 vyxt=2689)
--- OUTSIDE RECORDS SUMMARY | 2018-03-22 16:49 | XMS REPORT ---
[...] Start Date End Date Status Dosage Lipitor [facility] [id number] 10 MG Orally Once Active 1 tablet a day Results No Known Results Summary Purpose eClinicalWorks Submission
--- OUTSIDE RECORDS SUMMARY | 2018-03-22 16:49 | XMS REPORT ---
[...] Status Dosage System Date Date ProAir HFA [facility] 28641240538 108 (90 Base) Active 2 puffs as MCG/ACT needed Inhalation every 6 hrs Prilosec [facility] 29295804376 20 MG Orally Active 1 capsule Once a day Lipitor [facility] 58005406917 10 MG Orally Active 1 tablet Once a day Vitamin D3 [facility] 62976763837 400 UNIT Orally Active 2 tablets Once a day Aspir-81 [facility] 41003129503 81 MG Orally Active 1 tablet Once a day Topamax [facility] 48214550782 25 MG Orally Active 1 tablet Once a day Breo Ellipta [facility] 04734065337 200-25 MCG/INH Active 1 puff Inhalation Once a day Lisinopril [facility] 43253778752 40 MG Orally Active 1 tablet Once a day Warfarin Sodium [facility] 91103542809 7.5 MG Orally Active 1 tablet Once a day Clonidine HCl [facility] 92092943260 0.1 MG Orally Active 1 tablet Twice a day at bedtime Amitriptyline HCl [facility] 52826953417 50 MG Orally Active 1 tablet Once a day Zanaflex [facility] 33204491872 4 MG Orally Active 1 tablet Three times a as needed day Primidone [facility] 48035448090 250 MG Orally Active 1 tablet Three times a day Norvasc [facility] 12683357242 5 MG Orally Active 1 tablet Once a day Results No Known Results Summary Purpose eClinicalWorks Submission
--- OUTSIDE RECORDS SUMMARY | 2018-03-22 16:49 | XMS REPORT ---
[...] Status Dosage System Date Date Amitriptyline HCl [facility] 62091781258 50 MG Orally Active 1 tablet Once a day Clonidine HCl [facility] 34275448027 0.1 MG Orally Active 1 tablet Twice a day at bedtime Aspir-81 [facility] 39127313637 81 MG Orally Active 1 tablet Once a day Topamax [facility] 47179538044 25 MG Orally Active 1 tablet Once a day Plavix [facility] 99803289734 75 MG Orally Active 1 tablet Once a day Lisinopril [facility] 09804947875 40 MG Orally Active 1 tablet Once a day ProAir HFA [facility] 20475474401 108 (90 Base) Active 2 puffs as MCG/ACT needed Inhalation every 6 hrs Lasix [facility] 82038861551 40 MG Orally Active 1 tablet Once a day Prilosec [facility] 57024096714 20 MG Orally Active 1 capsule Once a day Breo Ellipta [facility] 93320820233 200-25 MCG/INH Active 1 puff Inhalation Once a day Warfarin Sodium [facility] 50365559975 7.5 MG Orally Active 1 tablet Once a day Zanaflex [facility] 98987129412 4 MG Orally Active 1 tablet Three times a as needed day Primidone [facility] 94632918297 250 MG Orally Active 1 tablet Three times a day Lipitor [facility] 61621970583 10 MG Orally Active 1 tablet Once a day Norvasc [facility] 04213591635 5 MG Orally Active 1 tablet Once a day Vitamin D3 [facility] 75328962125 400 UNIT Orally Active 2 tablets Once a day Results No Known Results Summary Purpose eClinicalWorks Submission
--- OUTSIDE RECORDS SUMMARY | 2018-03-22 16:49 | XMS REPORT ---
[...] Status Dosage System Date Date Amitriptyline HCl [facility] 57248687101 50 MG Orally Active 1 tablet Once a day Results No Known Results Summary Purpose eClinicalWorks Submission
--- OUTSIDE RECORDS SUMMARY | 2018-03-22 16:49 | XMS REPORT ---
[...] Start Date End Date Status Dosage Lisinopril [facility] 51603373304 40 MG Orally Once Active 1 tablet a day Results No Known Results Summary Purpose eClinicalWorks Submission
--- OUTSIDE RECORDS SUMMARY | 2018-03-22 16:49 | XMS REPORT ---
[...] Start Date End Date Status Dosage Lisinopril [facility] [place] 66872375870 40 MG Orally Once Active 1 tablet a day Results No Known Results Summary Purpose eClinicalWorks Submission
--- OUTSIDE RECORDS SUMMARY | 2018-03-22 16:50 | XMS REPORT ---
[...] Status Dosage System Date Date Amitriptyline HCl [facility] 17155254504 50 MG Orally Active 1 tablet Once a day Results No Known Results Summary Purpose eClinicalWorks Submission
--- OUTSIDE RECORDS SUMMARY | 2018-03-22 16:50 | XMS REPORT ---
[...] Status Dosage System Date Date Breo Ellipta [facility] 40763887225 200-25 MCG/INH Active 1 puff Inhalation Once a day Carvedilol [facility] 59990440353 12.5 MG Orally Active as BID directed Aspir-81 [facility] 04572117500 81 MG Orally Active 1 tablet Once a day Prilosec [facility] 16912565111 20 MG Orally Active 1 capsule Once a day Lasix [facility] 89443781804 40 MG Orally Active 1 tablet Once a day Norvasc [facility] 79278315253 5 MG Orally Inactive 1 tablet Once a day ProAir HFA [facility] 51009764216 108 (90 Base) Active 2 puffs as MCG/ACT needed Inhalation every 6 hrs Primidone [facility] 91089121009 250 MG Orally Active 1 tablet Three times a day Zanaflex [facility] 01703193187 4 MG Orally Active 1 tablet Three times a as needed day Vitamin D3 [facility] 30797058474 400 UNIT Orally Active 2 tablets Once a day Lisinopril [facility] 90812631197 40 MG Orally Active 1 tablet Once a day Clonidine HCl [facility] 10312420160 0.1 MG Orally Active 1 tablet Twice a day at bedtime Topamax [facility] 41695729482 25 MG Orally Active 1 tablet Once a day Plavix [facility] 66621417310 75 MG Orally Active 1 tablet Once a day Amitriptyline [facility] 99590352406 50 MG Orally Active 1 tablet HCl Once a day Lipitor [facility] 68849305904 10 MG Orally Active 1 tablet Once a day Warfarin Sodium [facility] 72616810751 3 MG Orally Active 3 tablet Once a day Results No Known Results Summary Purpose eClinicalWorks Submission
--- OUTSIDE RECORDS SUMMARY | 2018-03-22 16:50 | XMS REPORT ---
[...] Date End Date Status Dosage Lisinopril [facility] 01844095810 40 MG Orally Once Active 1 tablet a day Results No Known Results Summary Purpose eClinicalWorks Submission
--- NOTE | 2018-03-22 18:45 | EDPHYS ---
Physician Documentation [facility] Name: Pineda Mckeon Age: 73 yrs Sex: Male : 1945 Arrival Date: 03/22/2018 Time: 16:45 Bed 7 Private MD: [facility] ED Physician Lucio Dickson HPI: 03/22 18:35 This 73 yrs old Male presents to ER via Ambulatory with complaints of Wound jon Infection - SURGERY. 18:35 The patient presents with an abscess of the right femoral area, The patient presents jon with cellulitis of the right femoral area. Description: The affected area is small, moderate sized, confluent, draining, erythematous. Onset: The symptoms/episode began/occurred 3 day(s) ago. Possible cause(s): abscess, surgery site. Associated signs and symptoms: Pertinent positives: drainage, erythema, swelling. Modifying factors: the symptoms are alleviated by remaining still, the symptoms are aggravated by movement, pressure. Severity of symptoms: At their worst the symptoms were mild, moderate, in the emergency department the symptoms are unchanged. The patient has experienced similar episodes in the past, several times. Historical: - Allergies: 17:13 No Known Allergies; jl7 - PMHx: 17:13 AAA; blood clot in right groin; Bypass Bilateral Legs; clotting disorder; COPD; CVA; jl7 Degenerative disc disease; Hypertension; Right Arm; TIA; - PSHx: 17:13 Right arm; Cholecystectomy; Hernia repair; jl7 - Immunization history:: Adult Immunizations up to date. - Social history:: Smoking status: Patient/guardian denies using tobacco. - Ebola Screening: : No symptoms or risks identified at this time. - Family history:: not pertinent. ROS: 18:35 Constitutional: Negative for fever, chills, and weight loss, Eyes: Negative for injury, jon pain, redness, and discharge, ENT: Negative for injury, pain, and discharge, Neck: Negative for injury, pain, and swelling, Cardiovascular: Negative for chest pain, palpitations, and edema, Respiratory: Negative for shortness of breath, cough, wheezing, and pleuritic chest pain, Abdomen/GI: Negative for abdominal pain, nausea, vomiting, diarrhea, and constipation, Back: Negative for injury and pain, : Negative for injury, bleeding, discharge, and swelling, Skin: Negative for injury, rash, and discoloration, Neuro: Negative for headache, weakness, numbness, tingling, and seizure, Psych: Negative for depression, anxiety, suicide ideation, homicidal ideation, and hallucinations, Allergy/Immunology: Negative for hives, rash, and allergies, Endocrine: Negative for neck swelling, polydipsia, polyuria, polyphagia, and marked weight changes, Hematologic/Lymphatic: Negative for swollen nodes, abnormal bleeding, and unusual bruising. 18:35 MS/extremity: Positive for erythema, pain, swelling, tenderness, warmth, of the right femoral area. Exam: 18:35 Constitutional: This is a well developed, well nourished patient who is awake, alert, jon and in no acute distress. Head/Face: Normocephalic, atraumatic. Eyes: Pupils equal round and reactive to light, extra-ocular motions intact. Lids and lashes normal. Conjunctiva and sclera are non-icteric and not injected. Cornea within normal limits. Periorbital areas with no swelling, redness, or edema. ENT: Nares patent. No nasal discharge, no septal abnormalities noted. Tympanic membranes are normal and external auditory canals are clear. Oropharynx with no redness, swelling, or masses, exudates, or evidence of obstruction, uvula midline. Mucous membranes moist. Neck: Trachea midline, no thyromegaly or masses palpated, and no cervical lymphadenopathy. Supple, full range of motion without nuchal rigidity, or vertebral point tenderness. No Meningismus. Chest/axilla: Normal chest wall appearance and motion. Nontender with no deformity. No lesions are appreciated. Cardiovascular: Regular rate and rhythm with a normal S1 and S2. No gallops, murmurs, or rubs. Normal PMI, no JVD. No pulse deficits. Respiratory: Lungs have equal breath sounds bilaterally, clear to auscultation and percussion. No rales, rhonchi or wheezes noted. No increased work of breathing, no retractions or nasal flaring. Abdomen/GI: Soft, non-tender, with normal bowel sounds. No distension or tympany. No guarding or rebound. No evidence of tenderness throughout. Back: No spinal tenderness. No costovertebral tenderness. Full range of motion. Male : Normal genitalia with no discharge or lesions. Neuro: Awake and alert, GCS 15, oriented to person, place, time, and situation. Cranial nerves II-XII grossly intact. Motor strength 5/5 in all extremities. Sensory grossly intact. Cerebellar exam normal. Normal gait. Psych: Awake, alert, with orientation to person, place and time. Behavior, mood, and affect are within normal limits. 18:35 Skin: abscess, that is moderate sized, cellulitis, that is mild, induration, that is moderate is noted. Vital Signs: 17:13 BP 163 / 101; Pulse 85; Resp 18; Temp 98.7; Pulse Ox 96% ; Pain 5/10; jl7 18:41 BP 175 / 95; Pulse 86; Resp 16; Pulse Ox 100% on R/A; la1 19:41 BP 151 / 80; Pulse 67; Resp 18; Pulse Ox 98% on R/A; ea 20:45 BP 184 / 92; Pulse 67; Resp 18; Pulse Ox 97% on R/A; ea 21:07 BP 158 / 84; Pulse 70; Resp 18; Temp 97.8(O); Pulse Ox 98% on R/A; ea 22:25 BP 167 / 83; Pulse 68; Resp 18; Pulse Ox 97% ; ea 22:50 BP 160 / 80; Pulse 64; Resp 18; Temp 97.7(O); Pulse Ox 98% ; Pain 0/10; ea MDM: 17:40 Patient medically screened. [facility] 18:47 Data reviewed: vital signs, nurses notes, lab test result(s), EKG, radiologic studies, [facility] plain films, ultrasound. 03/22 18:04 Order name: Basic Metabolic Panel; Complete Time: 19:25 03/22 18:04 Order name: CBC with Diff; Complete Time: 19:25 03/22 18:04 Order name: Ckmb; Complete Time: 19:25 03/22 18:04 Order name: CPK; Complete Time: 19:25 03/22 18:04 Order name: LFT's; Complete Time: 19:25 03/22 18:04 Order name: Magnesium; Complete Time: 19:25 03/22 18:04 Order name: NT PRO-BNP; Complete Time: 19:25 03/22 18:04 Order name: PT-INR; Complete Time: 19:25 la03/22 18:04 Order name: Ptt, Activated; Complete Time: 19:25 [facility] 03/22 18:04 Order name: Troponin (emerg Dept Use Only); Complete Time: 19:25 [facility] 03/22 18:04 Order name: XRAY Chest (1 view); Complete Time: 22:35 [facility] 03/22 18:05 Order name: Lower Extremity Artery Uni Ltd US; Complete Time: 22:35 [facility] 03/22 18:28 Order name: Wound Culture [facility] 03/22 18:35 Order name: Blood Culture Adult (2) [facility] 03/22 18:04 Order name: EKG; Complete Time: 18:04 [facility] 03/22 18:04 Order name: Cardiac monitoring; Complete Time: 18:41 [facility] 03/22 18:04 Order name: EKG - Nurse/Tech; Complete Time: 18:42 [facility] 03/22 18:04 Order name: IV Saline Lock; Complete Time: 18:42 [facility] 03/22 18:04 Order name: Labs collected and sent; Complete Time: 18:42 [facility] 03/22 18:04 Order name: O2 Per Protocol; Complete Time: 18:42 [facility] 03/22 18:04 Order name: O2 Sat Monitoring; Complete Time: 18:42 la1 Administered Medications: 19:35 Drug: Zosyn 3.375 grams Route: IVPB; Infused Over: 60 mins; Site: left antecubital; ea 19:35 Follow up: Response: No adverse reaction; IV Status: Completed infusion ea 19:47 Drug: NS 0.9% 1000 ml Route: IV; Rate: 125 ml/hr; Site: left antecubital; ea 22:01 Follow up: Response: No adverse reaction; IV Status: Infusion continued upon transfer ea 21:42 Drug: fentaNYL (PF) 50 mcg Route: IVP; Site: left antecubital; ea 22:16 Follow up: Response: No adverse reaction; Pain is decreased ea Disposition: 03/22/18 18:44 Transfer ordered to [facility]. Diagnosis are Cellulitis and acute lymphangitis of other parts of limb, Other peripheral vascular diseases. - Reason for transfer: Higher level of care. - Accepting physician is to [facility]. - Condition is Fair. - Problem is new. - Symptoms have improved. Signatures: Dispatcher [employer] EDMS Lucio Dickson MD MD cha Therrien, Shelly, SUPERVISOR [employer]-C SUPER[employer]OR [employer]-Csnw Shivam Atkinson, RN RN la1 Maverick Yañez, RN RN jl7 Marlene Decker RN CHRYSTAL ea Corrections: (The following items were deleted from the chart) 18:46 18:44 03/22/2018 18:44 Transfer ordered to [facility]. Diagnosis is jon Cellulitis and acute lymphangitis of other parts of limb. Reason for transfer: Higher level of care. Accepting physician is to [facility]. Condition is Fair. Problem is new. Symptoms have improved. jon 23:00 18:46 03/22/2018 18:44 Transfer ordered to [facility]. Diagnosis is ea Cellulitis and acute lymphangitis of other parts of limb; Other peripheral vascular diseases. Reason for transfer: Higher level of care. Accepting physician is to [facility]. Condition is Fair. Problem is new. Symptoms have improved. jon
--- NOTE | 2018-03-22 18:45 | ER ---
Nurse's Notes [facility] Name: Pineda Mckeon Age: 73 yrs Sex: Male : 1945 Arrival Date: 03/22/2018 Time: 16:45 Bed 7 Private MD: Home De La Cruz Diagnosis: Cellulitis and acute lymphangitis of other parts of limb;Other peripheral vascular diseases Presentation: 03/22 17:07 Presenting complaint: Child states: "Surgery to right upper thigh in December. developed an jl7 abscess [address] Vera drained the abscess and left the wound open. Home health nurse noticed induration to the area and a knot. Today the home health nurse reported the knot tripled in size and had us come here.". Transition of care: patient was received from another setting of care (home health care), [facility]. Onset of symptoms was March 21, 2018. Risk Assessment: Do you want to hurt yourself or someone else? Patient reports no desire to harm self or others. Care prior to arrival: None. 17:07 Method Of Arrival: Ambulatory [facility] 17:07 Acuity: NORY 3 jl7 17:28 Initial Sepsis Screen: Does the patient meet any 2 criteria? No. Patient's initial la1 sepsis screen is negative. Does the patient have a suspected source of infection? No. Patient's initial sepsis screen is negative. Historical: - Allergies: 17:13 No Known Allergies; jl7 - PMHx: 17:13 AAA; blood clot in right groin; Bypass Bilateral Legs; clotting disorder; COPD; CVA; jl7 Degenerative disc disease; Hypertension; Right Arm; TIA; - PSHx: 17:13 Right arm; Cholecystectomy; Hernia repair; jl7 - Immunization history:: Adult Immunizations up to date. - Social history:: Smoking status: Patient/guardian denies using tobacco. - Ebola Screening: : No symptoms or risks identified at this time. - Family history:: not pertinent. Screenin:26 Abuse screen: Denies threats or abuse. Nutritional screening: No deficits noted. la1 Tuberculosis screening: No symptoms or risk factors identified. Fall Risk None identified. Assessment: 17:26 General: Appears in no apparent distress. comfortable, well groomed, well developed, la1 Behavior is calm, cooperative. Pain: Denies pain. Neuro: Level of Consciousness is awake, alert, obeys commands, Oriented to person, place, time, situation. Cardiovascular: Denies chest pain, palpitations, shortness of breath, Heart tones S1 S2 present Capillary refill < 3 seconds Patient's skin is warm and dry. Respiratory: Airway is patent Respiratory effort is even, unlabored, Respiratory pattern is regular, symmetrical, Breath sounds are clear bilaterally. GI: No signs and/or symptoms were reported involving the gastrointestinal system. : No signs and/or symptoms were reported regarding the genitourinary system. Derm: Abscess located on right femoral area is quarter sized, is red, is raised, packed by Dr Vera. Musculoskeletal: Circulation, motion, and sensation intact. Range of motion: intact in all extremities. 19:30 General: Appears in no apparent distress. comfortable, Behavior is calm, cooperative, ea appropriate for age. Pain: Denies pain. Neuro: Level of Consciousness is awake, alert, obeys commands, Oriented to person, place, time, situation. Cardiovascular: Heart tones S1 S2 present Patient's skin is warm and dry. Respiratory: Airway is patent Respiratory effort is even, unlabored, Respiratory pattern is regular, symmetrical, Breath sounds are clear bilaterally. GI: No signs and/or symptoms were reported involving the gastrointestinal system. : No signs and/or symptoms were reported regarding the genitourinary system. Derm: Abscess located on right femoral area. Musculoskeletal: Circulation, motion, and sensation intact. 20:50 Reassessment: Patient and/or family updated on plan of care and expected duration. Pain ea level reassessed. Patient is alert, oriented x 3, equal unlabored respirations, skin warm/dry/pink. 21:15 Reassessment: Report called to Lisy JARRELL at [facility]. ea 21:41 Reassessment: Patient and/or family updated on plan of care and expected duration. Pain ea level reassessed. Patient is alert, oriented x 3, equal unlabored respirations, skin warm/dry/pink. complaining of pain. Provide notified, order obtained, medication administered. pt tolerated well. 22:23 Reassessment: Patient and/or family updated on plan of care and expected duration. Pain ea level reassessed. Patient is alert, oriented x 3, equal unlabored respirations, skin warm/dry/pink. awaiting on EMS for transfer. Patient pain decreased. 22:59 Reassessment: Patient and/or family updated on plan of care and expected duration. Pain ea level reassessed. Patient is alert, oriented x 3, equal unlabored respirations, skin warm/dry/pink. EMS at facility for transfer. Patient denies pain at this time. Vital Signs: 17:13 BP 163 / 101; Pulse 85; Resp 18; Temp 98.7; Pulse Ox 96% ; Pain 5/10; jl7 18:41 BP 175 / 95; Pulse 86; Resp 16; Pulse Ox 100% on R/A; la1 19:41 BP 151 / 80; Pulse 67; Resp 18; Pulse Ox 98% on R/A; ea 20:45 BP 184 / 92; Pulse 67; Resp 18; Pulse Ox 97% on R/A; ea 21:07 BP 158 / 84; Pulse 70; Resp 18; Temp 97.8(O); Pulse Ox 98% on R/A; ea 22:25 BP 167 / 83; Pulse 68; Resp 18; Pulse Ox 97% ; ea 22:50 BP 160 / 80; Pulse 64; Resp 18; Temp 97.7(O); Pulse Ox 98% ; Pain 0/10; ea ED Course: 16:45 Patient arrived in ED. sb2 16:46 Home De La Cruz DO is Private Physician. sb2 17:11 Triage completed. jl7 17:13 Arm band placed on right wrist. jl7 17:15 Shivam Atkinson, RN is Primary Nurse. la1 17:26 Bed in low position. Call light in reach. Side rails up X 1. Pulse ox on. NIBP on. la1 17:40 Lucio Dickson MD is Attending Physician. jon 18:17 EKG done, by ED staff, reviewed by Lucio Dickson MD. jp3 18:20 X-ray completed. Portable x-ray completed in exam room. Patient tolerated procedure bb2 well. 18:21 XRAY Chest (1 view) In Process Unspecified. EDMS 18:30 Patient taken to ultrasound. balbir 18:41 No provider procedures requiring assistance completed. Accessed using 18G Sureflo IV la1 catheter Clean \\T\\ dry. Good blood return. Flushes easily. 19:17 Lower Extremity Artery Uni Ltd US In Process Unspecified. EDMS 21:59 Patient transferred, IV remains in place. ea 22:47 Primary Nurse role handed off by Shivam Atkinson RN rg2 Administered Medications: 19:35 Drug: Zosyn 3.375 grams Route: IVPB; Infused Over: 60 mins; Site: left antecubital; ea 19:35 Follow up: Response: No adverse reaction; IV Status: Completed infusion ea 19:47 Drug: NS 0.9% 1000 ml Route: IV; Rate: 125 ml/hr; Site: left antecubital; ea 22:01 Follow up: Response: No adverse reaction; IV Status: Infusion continued upon transfer ea 21:42 Drug: fentaNYL (PF) 50 mcg Route: IVP; Site: left antecubital; ea 22:16 Follow up: Response: No adverse reaction; Pain is decreased ea Outcome: 18:44 ER care complete, transfer ordered by . jon 21:59 Instructed on the need for transfer. ea 22:58 Transferred by ground EMS to [facility], Transfer form completed. ea X-rays sent w/ patient. 22:58 Condition: stable 23:00 Patient left the ED. ea Addendum: 03/28/2018 17:19 Addendum: Culture Results: Positive wound culture. culture report faxed to [facility] RE:CHRYSTAL Belcher. Signatures: Dispatcher [employer] EDMS Melody Rowe rg2 Lucio Dickson MD MD cha Williams, Irene, RN Shivam Grey RN RN la1 Chacho Quinn jd, Jahala, RN RN jl7 Marlene Decker RN RN ea Bock, Brittany bb2 Billeau, Sheri sb2 Pisarski, Jacob jp3
[2018-03-22] MEDS ORDERED: NA CHLORIDE 0.9% 1,000 ML ONE (18:49)
[2018-03-22] MEDS ORDERED: PIPER/TAZO/NS 3.375gm 3.375 GM/100 ML BAG ONE (18:49)
[2018-03-22 18:52] LABS: Absolute Lymphocytes (CBC) 1.2 K/uL (0.7-4.9); Absolute Monocytes 0.6 K/uL (0.1-1.3); Absolute Neutrophil 3.7 K/uL (1.8-8.0); Basophils % 0.8 % (0-1.3); Eosinophils % 5.1 % (0-4.4); Hematocrit 36.1 % (39.6-49.0); Lymphocytes % 20.5 % (15.3-44.8); MCV 82.6 fL (80-100); MPV 8.1 fL (7.6-11.3); Monocytes % 10.9 % (3.3-12.3); RBC Red Blood Cell Count 4.36 M/uL (4.33-5.43)
[2018-03-22 18:56] LABS: Protime INR 2.93
[2018-03-22 19:11] LABS: ALT/SGPT 12 U/L (12-78); AST/SGOT 17 U/L (15-37); Albumin 3.2 g/dL (3.4-5.0); Alkaline Phosphatase 199 U/L (45-117); BUN Blood Urea Nitrogen 7 mg/dL (7-18); Bicarbonate 30 mmol/L (21-32); Bilirubin Direct 0.1 mg/dL (0-0.2); Bilirubin Total 0.4 mg/dL (0.2-1.0); CKMB Creatine Kinase MB < 1.0 ng/mL (0.3-3.6); Creatine Phosphokinase 28 U/L (39-308); Glucose Level 94 mg/dL (74-106); Magnesium 2.1 mg/dL (1.8-2.4); NT PRO-BNP 375 pg/mL (<450); Potassium 3.7 mmol/L (3.5-5.1); Protein, Total 7.9 g/dL (6.4-8.2); Sodium Level 133 mmol/L (136-145)
--- NOTE | 2018-03-22 20:21 | RAD REPORT ---
EXAM DESCRIPTION: VAS - Lower Extremity Artery Uni Ltd - 03/22/2018 7:16 pm COMPARISON: None. TECHNIQUE: Grayscale and Doppler evaluation of the arterial tree performed. Waveforms and velocity v alues were obtained along with visual inspection. FINDINGS: Patient is a few months status post vascular procedure. It is unknown what procedure was p erformed and there is no imaging at this facility performed subsequent to the surgical procedure. A monophasic waveform pattern was identifiable in the right dorsalis pedis artery. Velocity was 22 cm /seconds. The [place] posterior tibial, popliteal and superficial femoral artery showed no identifiabl e blood flow.It is unknown if these vessels were bypassed at the time of the procedure. The distal an astomotic site was not identifiable. Right common femoral artery monophasic waveform pattern was seen . The very low velocity of 14 cm/second was reported. IMPRESSION: Examination is difficult to evaluate. A surgical procedure was performed but no informat ion is available detail in the procedure. Minimal blood flow seen in the [place] common femoral artery with no blood flow identifiable in the [place] perficial femoral, popliteal and posterior tibial arteries. Monophasic right dorsalis pedis artery bl ood flow was demonstrated. It is possible the occluded vessels were bypassed in the surgical procedure. The distal anastomotic s ite was not identifiable.
--- NOTE | 2018-03-22 21:03 | RAD REPORT ---
EXAM DESCRIPTION: RAD - Chest Single View - 03/22/2018 6:21 pm CLINICAL HISTORY: Vascular occlusion, pre surgical chest film COMPARISON: December 01 TECHNIQUE: AP portable chest image was obtained 1819 hours . FINDINGS: No peripheral mass or consolidation. Interstitial markings are prominent but not clearly d ifferent. Trachea is midline. Heart and vasculature are normal. No measurable pleural effusion and no pneumothorax. No gross bony abnormality seen. Aortic tortuosity is present similar to comparison. IMPRESSION: No acute cardiopulmonary process. Above detailed chest findings are stable from November.
[2018-03-22] MEDS ORDERED: FENTANYL CITR 100 MCG/2 ML ONE (21:44)
[2018-03-23 01:18] VITALS: BP 160/80; TEMP 97.7; O2SAT 98
--- NOTE | 2018-03-23 07:50 | EKG ---
Test Date: 2018-03-22 Test Time: 18:14:08 Promotional Marketing Agent: WILIAM MEASUREMENT RESULTS: Intervals: Rate: 72 WV: 164 QRSD: 92 QT: 408 QTc: 446 [place]: P: 64 WV: 164 QRS: -35 T: 45 INTERPRETIVE STATEMENTS: Normal sinus rhythm Left axis deviation Abnormal ECG Compared to ECG 12/30/2017 21:24:02 Left-axis deviation now present Electronically Signed On 03-23-18 07:49:43 CDT by Pavan Andrews
== END 2018-03-22 23:00 | disposition short-term general hospital (02) ==
LOC: ER 16:42
DX: L03.115 Cellulitis of right lower limb (principal); I73.89 Other specified peripheral vascular diseases; I10 Essential (primary) hypertension; Z86.73 Personal history of transient ischemic attack (TIA), and cerebral infarction without residual deficits
CPT/HCPCS: 36415; 71045; 80048; 80076; 82550; 82553; 83735; 83880; 84484; 85025; 85610; 85730; 87040 ×2; 87070; 87205; 93926; J2543; J3010; J7030; 87077; 87186; 93005; 96361; 96374; 96375; 99285

== ENCOUNTER 2018-07-08 05:37 | Emergency (ER) | payer OTHER ==
--- OUTSIDE RECORDS SUMMARY | 2018-07-08 05:41 | XMS REPORT | Clinical Summary ---
:1945 Author Organization [facility] Address [address] [place] [address] Care Team Providers Name Role Phone Home De La Cruz DO Primary Care Provider Allergies No Known Allergies Medications Medication Sig Dispensed Refills Start End Date Status Date omeprazole Take 20 mg by 0 Active (PRILOSEC) 20 MG mouth daily. capsule cholecalciferol Take 800 Units 0 Active (VITAMIN D3) 400 by mouth daily. unit Tab tablet albuterol HFA Inhale 1 puff by 0 Active (VENTOLIN HFA) 90 mouth via mcg/actuation inhaler every 6 inhaler (six) hours as needed for Wheezing. atorvastatin Take 10 mg by 0 Active (LIPITOR) 10 MG mouth daily. tablet lisinopril Take 40 mg by 0 Active (PRINIVIL,ZESTRIL) mouth daily. 40 MG tablet amitriptyline Take 50 mg by 0 Active (ELAVIL) 50 MG mouth nightly. tablet fluticasone-vilanter Inhale 1 puff by 0 Active ol (BREO ELLIPTA) mouth via 200-25 mcg/dose DsDv inhaler daily. tiZANidine Take 4 mg by 0 Active (ZANAFLEX) 4 MG mouth 3 (three) tablet times daily as needed. primidone (MYSOLINE) Take 250 mg by 0 Active 250 MG tablet mouth daily. topiramate (TOPAMAX) Take 100 mg by 0 Active 100 MG tablet mouth 2 (two) times daily. warfarin (COUMADIN) Take 9 mg by 0 Active 10 MG tablet mouth daily. betamethasone, Apply 1-2 grams 3 Active augmented, to the affected 8 (DIPROLENE) 0.05 % area twice daily cream or as directed. Max 8g/day. fentaNYL (DURAGESIC) 0 Active 100 mcg/hr patch 8 HYDROcodone-acetamin 0 Active ophen (NORCO 10-325) 8 10-325 mg per tablet tamsulosin (FLOMAX) Take 1 capsule 30 capsule 0 Active 0.4 mg Cp24 24 hr (0.4 mg total) 8 capsule by mouth daily. acetaminophen Take 2 tablets 30 tablet 0 03/24/20 Active (TYLENOL) 325 MG (650 mg total) 8 19 tablet by mouth every 4 (four) hours as needed for up to 360 days. amLODIPine (NORVASC) Take 1 tablet 30 tablet 0 03/30/20 Active 10 MG tablet (10 mg total) by 8 19 mouth daily. aspirin 81 MG EC Take 1 tablet 30 tablet 0 03/30/20 Active tablet (81 mg total) by 8 19 mouth daily. clopidogrel (PLAVIX) Take 1 tablet 30 tablet 0 03/30/20 Active 75 mg tablet (75 mg total) by 8 19 mouth daily. honey 100 % Pste Apply 1 206 mL 2 Active application 8 topically daily. carvedilol (COREG) Take 1 tablet 60 tablet 0 03/29/20 Active 25 MG tablet (25 mg total) by 8 19 mouth 2 (two) times daily. warfarin (COUMADIN) Take 11 mg by 0 12/05/19 Discontinued 10 MG tablet mouth daily. 18 cloNIDine HCl Take 0.1 mg by 0 02/05/20 Discontinued (CATAPRES) 0.1 MG mouth daily as 18 tablet needed. aspirin 81 MG EC Take 81 mg by 0 12/26/19 Discontinued tablet mouth daily. 18 topiramate (TOPAMAX) Take 100 mg by 0 12/10/19 Discontinued 100 MG tablet mouth daily. 18 enoxaparin (LOVENOX) Inject 0 12/05/19 Discontinued 100 mg/mL Syrg subcutaneously. 18 levoFLOXacin Take 500 mg by 0 12/26/19 Discontinued (LEVAQUIN) 500 MG mouth daily. 18 tablet minocycline Take 1 capsule 10 capsule 0 12/16/19 (MINOCIN,DYNACIN) (100 mg total) 8 18 100 MG capsule by mouth every 12 (twelve) hours for 5 days. doxycycline Mix contents of 3 01/28/20 Discontinued (MONODOX) 100 MG 3 capsules into 8 18 capsule foot bath daily furosemide (LASIX) TAKE ONE (1) 99 01/28/20 Discontinued 40 MG tablet TABLET(S) BY 8 18 MOUTH ONCE A DAY. mupirocin Mix contents of 03/29/20 Discontinued (BACTROBAN) 2 % one tube (22 8 18 ointment grams) into foot bath daily nystatin Apply 2-3g to 3 03/29/20 Discontinued (MYCOSTATIN) 100,000 affected area 8 18 unit/gram powder 2-4x/daiily OR DIRECTED. max 10g/day urea (CARMOL) 40 % Apply 1-2 grams 3 03/29/20 Discontinued Crea topical cream to the affected 8 18 area 3 to 4 times daily clopidogrel (PLAVIX) Take 75 mg by 0 02/05/20 Discontinued 75 mg tablet mouth daily. 18 aspirin 81 MG EC Take 81 mg by 0 02/05/20 Discontinued tablet mouth daily. 18 carvedilol (COREG) Take 1 tablet 0 02/06/20 Discontinued 6.25 MG tablet (6.25 mg total) 8 18 by mouth 2 (two) times daily. carvedilol (COREG) Take 1 tablet 60 tablet 0 03/07/20 12.5 MG tablet (12.5 mg total) 8 18 by mouth 2 (two) times daily with breakfast and dinner for 30 days. ampicillin Take 1 capsule 30 capsule 0 04/08/20 (PRINCIPEN) 500 MG (500 mg total) 8 18 capsule by mouth 3 (three) times daily for 10 days. mINOCYCLine Take 1 capsule 20 capsule 0 04/08/20 (MINOCIN,DYNACIN) (100 mg total) 8 18 100 MG capsule by mouth 2 (two) times daily for 10 days. 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 Severe aortic stenosis Anemia HTN (hypertension) Hyperlipidemia COPD (chronic obstructive pulmonary disease) Seizures Peripheral vascular disease Blood clotting tendency Overview: DVT 09/2017 Factor VIII deficiency Atrial fibrillation Thoracoabdominal aneurysm Abdominal aortic aneurysm (AAA) DVT (deep venous thrombosis) Resolved Problems Problem Noted Date Resolved Date Cellulitis 03/23/2018 03/24/2018 Cellulitis of right lower extremity 03/23/2018 03/24/2018 Postoperative urinary retention 02/04/2018 03/23/2018 Hypertensive urgency 02/03/2018 03/23/2018 Acute pulmonary insufficiency 02/03/2018 03/23/2018 SIRS (systemic inflammatory response syndrome) 02/03/2018 03/23/2018 Thrombocytopenia 02/03/2018 03/23/2018 Critical lower limb ischemia 02/02/2018 03/23/2018 Stroke 12/04/2017 GI bleed 03/23/2018 Encounters Date Type Specialty Care Team Description 03/23/2018 Surgery Aris Parker DEBRIDEMENT/I&D,WOUND MD Charity EXTREMITY LOWER 03/23/2018 Anesthesia Event Alfie Napier MD 03/22/2018 - Hospital Encounter Cardiology Changela, Cellulitis of right lower extremity; 03/29/2018 Yesenia Salas MD S/P TAVR (transcatheter aortic valve replacement); Christian Hdz Abscess of right groin; MD Rik ZHANE (acute kidney injury) ([facility]) Kath Jones MD Zindani, Shireen, MD 02/02/2018 Anesthesia Event Devon Li MD 02/02/2018 Surgery Christian Hdz DISC INSPECTOR ILIAC ARTERY MD Rik 02/02/2018 - Hospital Encounter Cardiology Christian Hdz Acute pulmonary insufficiency; 02/05/2018 MD Rik Chronic obstructive pulmonary disease, unspecified COPD type (HCC); Critical lower limb ischemia; Hypertensive urgency; Peripheral vascular disease (HCC); Seizures (HCC); SIRS (systemic inflammatory response syndrome) (HCC); Thrombocytopenia (HCC) 01/27/2018 Surgery Christian Hdz PERIPHERAL ANGIOS / MD Rik AORTOGRAM 01/27/2018 - Hospital Encounter Cardiology Christian Hdz 01/28/2018 MD Rik 12/25/2017 Clinical Support Cardiology Gurinder Morelos MD 12/10/2017 Orders Only General Internal Medicine 12/09/2017 Anesthesia Event Kye Nicole MD 12/09/2017 - Hospital Encounter Cardiology Christian Hdz Abdominal aortic 12/10/2017 MD Rik aneurysm (AAA) without rupture (HCC) 12/09/2017 Surgery Christian Hdz TAVR / KYLIE MCR - IP MD Rik PROC ONLY 12/04/2017 Surgery Christian Hdz DISC INSPECTOR ILIAC ARTERY MD Rik 12/04/2017 - Hospital Encounter Cardiology Christian Hdz 12/05/2017 MD Rik 11/26/2017 Hospital Encounter Left without seen 11/26/2017 Office Visit Cardiology Aris Parker Chronic diastolic congestive heart failure (HCC); MD Charity Atrial fibrillation, unspecified type (HCC); Gastrointestinal hemorrhage, unspecified gastrointestinal hemorrhage type; 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); Abdominal aortic aneurysm (AAA) without rupture (HCC) 11/26/2017 Hospital Encounter Radiology Christian Hdz Nonrheumatic aortic MD Rik valve stenosis 11/26/2017 Hospital Encounter Radiology Christian Hdz Nonrheumatic aortic MD Rik valve stenosis 11/16/2017 Office Visit Cardiology Gurinder Morelos Severe aortic stenosis; MD Alessandro Anemia, unspecified type; Essential hypertension; Hyperlipidemia, unspecified hyperlipidemia type; Cerebrovascular accident (CVA), unspecified mechanism (HCC); Chronic obstructive pulmonary disease, unspecified COPD type (HCC); Seizures (HCC); Peripheral vascular disease (HCC); Bilateral carotid artery occlusion; Aneurysm (HCC); Blood clotting tendency (HCC); Factor VIII deficiency (HCC) 11/10/2017 Outside Orders [facility] Christian Hdz Nonrheumatic aortic Scheduling MD Rik valve stenosis (Primary Dx) after 07/07/2017 Social History Tobacco Use Types Packs/Day Years Used Date Former Smoker 1.5 50 Quit: 2010 Smokeless Tobacco: Current User Chew Comments: quit 2010 Alcohol Use Drinks/Week oz/Week Comments No Sex Assigned at Date Recorded Not on file Job Start Date Occupation Industry Not on file Not on file Not on file Travel History Travel Start Travel End No recent travel history available. Last Filed Vital Signs Vital Sign Reading Time Taken Blood Pressure 171/78 03/29/2018 3:41 PM CDT Pulse 66 03/29/2018 3:41 PM CDT Temperature 36.1 C (97 F) 03/29/2018 3:41 PM CDT Respiratory Rate 18 03/29/2018 3:41 PM CDT Oxygen Saturation 100% 03/29/2018 3:41 PM CDT Inhaled Oxygen Concentration 21% 03/28/2018 9:01 PM CDT Weight 72.8 kg (160 lb 9.6 oz) 03/26/2018 8:20 AM CDT Height 170.2 cm (5' 7") 03/23/2018 12:07 AM CDT Body Mass Index 25.15 03/26/2018 8:20 AM CDT Plan of Treatment Health Maintenance Due Date Last Done Comments INFLUENZA VACCINE 05/10/2018 Implants Implanted Type Area Banquet Coordinator Device Shelf Model / Identifier Expiration Serial / Date Lot Amplatzer Vascular Plug Ii Cardiovascular [facility] 12/07/2021 [id number] / Implanted: Qty: 1 on 12/04/2017 by Christian Hdz MD / [id number] Azur 18 Detachable Helical Hydrocoil Coil 08/15/2020 [id number] / Implanted: Qty: 1 on 12/04/2017 by Christian Hdz MD / [id number] Azur 35 Detachable Helical Hydrocoil Coil 05/09/2022 [id number] / Implanted: Qty: 1 on 12/04/2017 by Christian Hdz MD / [id number] Azur 35 Detachable Helical Hydrocoil Coil 05/09/2022 [id number] / Implanted: Qty: 1 on 12/04/2017 by Christian Hdz MD / [id number] Azur 35 Detachable Helical Hydrocoil Coil 05/09/2022 [id number] / Implanted: Qty: 1 on 12/04/2017 by Christian Hdz MD / [id number] Azur Cx 35 Detachable Cx Coil Coil 07/09/2021 [id number] / Implanted: Qty: 1 on 12/04/2017 by Christian Hdz MD / [id number] Azur Cx 35 Detachable Cx Coil Coil 02/06/2021 [id number] / Implanted: Qty: 1 on 12/04/2017 by Christian Hdz MD / [id number] Azur Cx 35 Detachable Cx Coil Coil 08/09/2021 [id number] / Implanted: Qty: 1 on 12/04/2017 by Christian Hdz MD / [id number] Azur 35 Detachable Helical Hydrocoil Coil 10/02/2020 [id number] / Implanted: Qty: 1 on 12/04/2017 by Christian Hdz MD / [id number] Azur Cx 35 Detachable Cx Coil Coil 08/09/2021 [id number] / Implanted: Qty: 1 on 12/04/2017 by Christian Hdz MD / [id number] Azur 18 Detachable Helical Hydrocoil Coil 06/09/2018 [id number] / Implanted: Qty: 1 on 12/04/2017 by Christian Hdz MD / [id number] Azur 18 Detachable Helical Hydrocoil Coil 05/23/2020 [id number] / Implanted: Qty: 1 on 12/04/2017 by Christian Hdz MD / [id number] Azur Cx 18 Detachable Cx Coil Coil 06/09/2021 [id number] / Implanted: Qty: 1 on 12/04/2017 by Christian Hdz MD / [id number] Azur Cx 18 Detachable Cx Coil Coil 05/09/2021 [id number] / Implanted: Qty: 1 on 12/04/2017 by Christian Hdz MD / [id number] Azur 35 Detachable Framing Coil Coil 10/07/2022 [id number] / Implanted: Qty: 1 on 12/04/2017 by Christian Hdz MD / [id number] Azur 35 Detachable Framing Coil Coil 10/07/2022 [id number] / Implanted: Qty: 1 on 12/04/2017 by Christian Hdz MD / [id number] Azur 35 Detachable Framing Coil Coil 10/07/2022 [id number] / Implanted: Qty: 1 on 12/04/2017 by Christian Hdz MD / [id number] Azur 35 Detachable Framing Coil Coil 10/07/2022 [id number] / Implanted: Qty: 1 on 12/04/2017 by Christian Hdz MD / [id number] Waldo De La Rosa Knit Gld [id number] - [id number] Graft/Patch N/A: GETINGE 12/07/2021 [id number] / Implanted: Qty: 1 on 02/02/2018 by Christian Hdz MD Arterial IND: MAQUET:CV [id number] / [employer] Stents-Peripher BARD VASCULAR [id number] 05/30/2018 [id number] / Implanted: Qty: 1 on 02/02/2018 by Christian Hdz MD al / [id number] [employer] Stents-Peripher BARD VASCULAR [id number] 10/07/2020 [id number] / Implanted: Qty: 1 on 02/02/2018 by Christian Hdz MD al / [id number] [employer] Stents-Peripher BARD VASCULAR [id number] 07/31/2020 [id number] / Implanted: Qty: 1 on 02/02/2018 by Christian Hdz MD al / [id number] [employer] Stents-Peripher BARD VASCULAR [id number] 04/09/2020 [id number] / Implanted: Qty: 1 on 02/02/2018 by Christian Hdz MD al / [id number] Higgins Denilson 3 Thv Valves N/A: HIGGINS 08/20/2019 [id number] / Implanted: Qty: 1 on 12/09/2017 by Christian Hdz MD [facility] [id number] / Procedures Procedure Name Priority Date/Time Associated Comments Diagnosis RHYTHM STRIP - SCAN 05/27/2018 9:10 AM CDT VASCULAR DIAGRAM -SCAN 05/05/2018 11:00 AM CDT VASCULAR DIAGRAM -SCAN 04/29/2018 3:00 PM CDT VASCULAR DIAGRAM -SCAN 04/29/2018 11:10 AM CDT REPORT OF PROCEDURE - 03/31/2018 11:10 ENDOSCOPY SCAN AM CDT RHYTHM STRIP - SCAN 03/31/2018 11:10 AM CDT PROTHROMBIN TIME/INR Routine 03/29/2018 4:16 Results for this AM CDT procedure are in the results section. VANCOMYCIN LEVEL, Routine 03/29/2018 4:16 Results for this RANDOM AM CDT procedure are in the results section. BASIC METABOLIC PANEL STAT 03/29/2018 4:16 Results for this (7) AM CDT procedure are in the results section. BASIC METABOLIC PANEL STAT 03/28/2018 4:09 Results for this (7) PM CDT procedure are in the results section. PROTHROMBIN TIME/INR Routine 03/28/2018 4:08 Results for this AM CDT procedure are in the results section. VANCOMYCIN LEVEL, Routine 03/28/2018 4:08 Results for this RANDOM AM CDT procedure are in the results section. VANCOMYCIN LEVEL, Timed 03/27/2018 5:46 Results for this TROUGH PM CDT procedure are in the results section. BASIC METABOLIC PANEL STAT 03/27/2018 2:39 Results for this (7) PM CDT procedure are in the results section. PROTHROMBIN TIME/INR Routine 03/27/2018 5:22 Results for this AM CDT procedure are in the results section. LACTIC ACID, VENOUS, Routine 03/27/2018 5:22 Results for this WHOLE BLOOD AM CDT procedure are in the results section. PROTHROMBIN TIME/INR Routine 03/26/2018 3:56 Results for this AM CDT procedure are in the results section. BASIC METABOLIC PANEL Routine 03/26/2018 3:56 Results for this (7) AM CDT procedure are in the results section. CBC W/PLT COUNT & AUTO Routine 03/25/2018 5:28 Results for this DIFFERENTIAL AM CDT procedure are in the results section. PROTHROMBIN TIME/INR Routine 03/25/2018 5:28 Results for this AM CDT procedure are in the results section. BASIC METABOLIC PANEL Routine 03/25/2018 5:28 Results for this (7) AM CDT procedure are in the results section. CBC W/PLT COUNT & AUTO Routine 03/25/2018 5:28 Results for this DIFFERENTIAL AM CDT procedure are in the results section. VANCOMYCIN LEVEL, Timed 03/24/2018 4:45 Results for this TROUGH PM CDT procedure are in the results section. CBC W/PLT COUNT & AUTO Routine 03/24/2018 6:33 Results for this DIFFERENTIAL AM CDT procedure are in the results section. PROTHROMBIN TIME/INR Routine 03/24/2018 6:33 Results for this AM CDT procedure are in the results section. BASIC METABOLIC PANEL Routine 03/24/2018 6:33 Results for this (7) AM CDT procedure are in the results section. CBC W/PLT COUNT & AUTO Routine 03/24/2018 6:33 Results for this DIFFERENTIAL AM CDT procedure are in the results section. DEBRIDEMENT/I&D,WOUND 03/23/2018 12:00 Infection EXTREMITY LOWER PM CDT TISSUE EXAM AP Routine 03/23/2018 11:36 Results for this AM CDT procedure are in the results section. ANAEROBIC CULTURE Routine 03/23/2018 11:31 Results for this AM CDT procedure are in the results section. SURGICALLY OBTAINED Routine 03/23/2018 11:31 Results for this CULTURE + GRAM STAIN AM CDT procedure are in the results section. FUNGUS CULTURE + Routine 03/23/2018 11:31 Results for this SMEAR AM CDT procedure are in the results section. AFB CULTURE + SMEAR Routine 03/23/2018 11:31 Results for this AM CDT procedure are in the results section. SPIN/CONCENTRATION Routine 03/23/2018 11:31 Results for this CHARGE AM CDT procedure are in the results section. ANAEROBIC CULTURE Routine 03/23/2018 11:29 Results for this AM CDT procedure are in the results section. SURGICALLY OBTAINED Routine 03/23/2018 11:29 Results for this CULTURE + GRAM STAIN AM CDT procedure are in the results section. FUNGUS CULTURE + Routine 03/23/2018 11:29 Results for this SMEAR AM CDT procedure are in the results section. AFB CULTURE + SMEAR Routine 03/23/2018 11:29 Results for this AM CDT procedure are in the results section. CBC W/PLT COUNT & AUTO Routine 03/23/2018 5:20 Results for this DIFFERENTIAL AM CDT procedure are in the results section. PROTHROMBIN TIME/INR Routine 03/23/2018 5:20 Results for this AM CDT procedure are in the results section. BASIC METABOLIC PANEL Routine 03/23/2018 5:20 Results for this (7) AM CDT procedure are in the results section. CBC W/PLT COUNT & AUTO Routine 03/23/2018 5:20 Results for this DIFFERENTIAL AM CDT procedure are in the results section. REPORT OF PROCEDURE - 02/08/2018 12:40 ENDOSCOPY SCAN PM CDT VASCULAR DIAGRAM -SCAN 02/08/2018 12:40 PM CDT RHYTHM STRIP - SCAN 02/08/2018 12:40 PM CDT TRANSFUSION SERVICE 02/07/2018 6:00 REPORT - SCAN PM CDT PREPARE RBC Routine 02/05/2018 3:24 Results for this PM CDT procedure are in the results section. BASIC METABOLIC PANEL Routine 02/05/2018 5:13 Results for this (7) AM CDT procedure are in the results section. CBC (HEMOGRAM ONLY) Routine 02/05/2018 5:13 Results for this AM CDT procedure are in the results section. PHOSPHORUS Routine 02/05/2018 5:13 Results for this AM CDT procedure are in the results section. MAGNESIUM Routine 02/05/2018 5:13 Results for this AM CDT procedure are in the results section. TRANSFUSION SERVICE 02/04/2018 6:00 REPORT - SCAN PM CDT VASCULAR DIAGRAM -SCAN 02/04/2018 1:51 PM CDT VASCULAR DIAGRAM -SCAN 02/04/2018 12:51 PM CDT HEMOGLOBIN AND Routine 02/04/2018 11:49 Results for this HEMATOCRIT AM CDT procedure are in the results section. BASIC METABOLIC PANEL Routine 02/04/2018 4:10 Results for this (7) AM CDT procedure are in the results section. CBC (HEMOGRAM ONLY) Routine 02/04/2018 4:10 Results for this AM CDT procedure are in the results section. PHOSPHORUS Routine 02/04/2018 4:10 Results for this AM CDT procedure are in the results section. MAGNESIUM Routine 02/04/2018 4:10 Results for this AM CDT procedure are in the results section. PREPARE RBC SIOMNE 02/03/2018 11:54 Results for this PM CDT procedure are in the results section. TRANSFUSION SERVICE 02/03/2018 6:03 REPORT - SCAN PM CDT CBC W/PLT COUNT & AUTO Routine 02/03/2018 3:25 Results for this DIFFERENTIAL PM CDT procedure are in the results section. CBC W/PLT COUNT & AUTO Routine 02/03/2018 3:25 Results for this DIFFERENTIAL PM CDT procedure are in the results section. CARDIAC CATH REPORT - 02/03/2018 12:40 SCAN PM CDT PHOSPHORUS Routine 02/03/2018 5:10 Results for this AM CDT procedure are in the results section. MAGNESIUM Routine 02/03/2018 5:10 Results for this AM CDT procedure are in the results section. COMPREHENSIVE Routine 02/03/2018 5:10 Results for this METABOLIC PANEL AM CDT procedure are in the results section. CBC W/PLT COUNT & AUTO Routine 02/03/2018 3:49 Results for this DIFFERENTIAL AM CDT procedure are in the results section. CBC W/PLT COUNT & AUTO Routine 02/03/2018 3:49 Results for this DIFFERENTIAL AM CDT procedure are in the results section. XR CHEST 1 VIEW STAT 02/02/2018 11:00 Results for this PORTABLE/BEDSIDE PM CDT procedure are in the results section. CBC W/PLT COUNT & AUTO STAT 02/02/2018 10:51 Results for this DIFFERENTIAL PM CDT procedure are in the results section. VANCOMYCIN LEVEL, Timed 02/02/2018 10:51 Results for this TROUGH PM CDT procedure are in the results section. OXYGEN SATURATION, STAT 02/02/2018 10:51 Results for this MEASURED PM CDT procedure are in the results section. FIBRINOGEN STAT 02/02/2018 10:51 Results for this PM CDT procedure are in the results section. APTT STAT 02/02/2018 10:51 Results for this PM CDT procedure are in the results section. PROTHROMBIN TIME/INR STAT 02/02/2018 10:51 Results for this PM CDT procedure are in the results section. CALCIUM, IONIZED STAT 02/02/2018 10:51 Results for this PM CDT procedure are in the results section. PHOSPHORUS STAT 02/02/2018 10:51 Results for this PM CDT procedure are in the results section. MAGNESIUM STAT 02/02/2018 10:51 Results for this PM CDT procedure are in the results section. LACTIC ACID, ARTERIAL, STAT 02/02/2018 10:51 Results for this WHOLE BLOOD PM CDT procedure are in the results section. HEPATIC FUNCTION PANEL STAT 02/02/2018 10:51 Results for this PM CDT procedure are in the results section. BASIC METABOLIC PANEL STAT 02/02/2018 10:51 Results for this (7) PM CDT procedure are in the results section. CBC W/PLT COUNT & AUTO STAT 02/02/2018 10:51 Results for this DIFFERENTIAL PM CDT procedure are in the results section. HEMOGLOBIN AND Routine 02/02/2018 10:51 Results for this HEMATOCRIT PM CDT procedure are in the results section. TISSUE EXAM AP Routine 02/02/2018 7:42 Results for this PM CDT procedure are in the results section. HGB/HCT (H&H) - STAT STAT 02/02/2018 6:42 Results for this LAB PM CDT procedure are in the results section. GLUCOSE-STAT LAB STAT 02/02/2018 6:42 Results for this PM CDT procedure are in the results section. POTASSIUM-STAT LAB STAT 02/02/2018 6:42 Results for this PM CDT procedure are in the results section. SODIUM NA-STAT LAB STAT 02/02/2018 6:42 Results for this PM CDT procedure are in the results section. BLOOD GAS, ARTERIAL STAT 02/02/2018 6:42 Results for this PM CDT procedure are in the results section. FIBRINOGEN STAT 02/02/2018 6:42 Results for this PM CDT procedure are in the results section. APTT STAT 02/02/2018 6:42 Results for this PM CDT procedure are in the results section. PROTHROMBIN TIME/INR STAT 02/02/2018 6:42 Results for this PM CDT procedure are in the results section. CALCIUM, IONIZED STAT 02/02/2018 6:42 Results for this PM CDT procedure are in the results section. HEMATOCRIT-STAT LAB STAT 02/02/2018 6:42 Results for this PM CDT procedure are in the results section. HEMOGLOBIN-STAT LAB STAT 02/02/2018 6:42 Results for this PM CDT procedure are in the results section. RRL CRITICAL LABS STAT 02/02/2018 6:42 Results for this (ABG,NA,K,H&H,GLUCOSE) PM CDT procedure are in the results section. PLATELET COUNT STAT 02/02/2018 6:42 Results for this PM CDT procedure are in the results section. CALCIUM, IONIZED STAT 02/02/2018 6:00 Results for this PM CDT procedure are in the results section. POCT-ACT Routine 02/02/2018 5:35 Results for this PM CDT procedure are in the results section. POCT-ACT Routine 02/02/2018 5:21 Results for this PM CDT procedure are in the results section. POCT-ACT Routine 02/02/2018 5:08 Results for this PM CDT procedure are in the results section. TRANSFUSE STAT 02/02/2018 4:54 LEUKO-REDUCED RED PM CDT BLOOD CELLS POCT-ACT Routine 02/02/2018 4:04 Results for this PM CDT procedure are in the results section. CALCIUM, IONIZED STAT 02/02/2018 4:03 Results for this PM CDT procedure are in the results section. BLOOD GAS, ARTERIAL STAT 02/02/2018 4:03 Results for this PM CDT procedure are in the results section. HGB/HCT (H&H) - STAT STAT 02/02/2018 3:58 Results for this LAB PM CDT procedure are in the results section. GLUCOSE-STAT LAB STAT 02/02/2018 3:58 Results for this PM CDT procedure are in the results section. POTASSIUM-STAT LAB STAT 02/02/2018 3:58 Results for this PM CDT procedure are in the results section. SODIUM NA-STAT LAB STAT 02/02/2018 3:58 Results for this PM CDT procedure are in the results section. RRL CRITICAL LABS STAT 02/02/2018 3:58 Results for this (ABG,NA,K,H&H,GLUCOSE) PM CDT procedure are in the results section. ANTIBODY SIMONE 02/02/2018 1:43 Results for this IDENTIFICATION PM CDT procedure are in the results section. DISC INSPECTOR ILIAC ARTERY 02/02/2018 1:11 Vascular disease, PM CDT peripheral (HCC) Case Notes (2) CASE POP6 REQ RM 10 CV ANESTHESIA TYPE AND SCREEN, SIMONE 02/02/2018 9:21 AM Results for this AUTOMATED CDT procedure are in the results section. REPORT OF PROCEDURE 01/29/2018 12:50 PM - ENDOSCOPY SCAN CDT RHYTHM STRIP - SCAN 01/29/2018 12:50 PM CDT VASCULAR DIAGRAM 01/29/2018 12:50 PM -SCAN CDT MR MRA EXTREMITY SIMONE 01/28/2018 5:13 PM Results for this LOWER WITHOUT FOLLOW CDT procedure are in WITH CONTRAST the results section. CARDIAC CATH REPORT 01/28/2018 3:40 PM - SCAN CDT VEIN MAPPING Routine 01/28/2018 1:00 PM Results for this ARM/ARMS CDT procedure are in the results section. BASIC METABOLIC STAT 01/28/2018 7:07 AM Results for this PANEL (7) CDT procedure are in the results section. CBC (HEMOGRAM ONLY) STAT 01/28/2018 7:06 AM Results for this CDT procedure are in the results section. PERIPHERAL ANGIOS / 01/27/2018 6:20 PM PVD (peripheral AORTOGRAM CDT vascular disease) (HCC) Case Notes POP6 PERIPHERAL ANGIOGRAM POSS DISC INSPECTOR PROTHROMBIN TIME/INR STAT 01/27/2018 1:53 PM CDT TRANSFUSION SERVICE REPORT - 12/14/2017 5:41 PM CDT SCAN ECHOCARDIOGRAM REPORT - SCAN 12/11/2017 3:24 PM CDT REPORT OF PROCEDURE - 12/11/2017 12:40 PM CDT ENDOSCOPY SCAN CARDIAC CATH REPORT - SCAN 12/11/2017 12:40 PM CDT RHYTHM STRIP - SCAN 12/11/2017 12:40 PM CDT CARDIAC CATH REPORT - SCAN 12/10/2017 8:40 PM CDT TRANSFUSION SERVICE REPORT - 12/10/2017 5:41 PM CDT SCAN PREPARE RBC Routine 12/10/2017 4:05 PM CDT ECHOCARDIOGRAM REPORT - SCAN 12/10/2017 12:20 PM CDT 2D ECHO W/ DOPPLER STAT 12/10/2017 8:51 AM CDT Results for this (CW/PW/COLOR) procedure are in the results section. ECG 12-LEAD Routine 12/10/2017 5:43 AM CDT Procedure Note - Interface, External Ris In - 12/10/2017 10:33 AM CDT Ventricular Rate 80 BPM Atrial Rate 80 BPM P-R Interval 160 ms QRS Duration 92 ms Q-T Interval 394 ms QTC Calculation(Bazett) 454 ms P [place] 60 degrees R [place] -32 degrees T [place] 75 degrees Normal sinus rhythm Left axis deviation Nonspecific T wave abnormality Abnormal ECG No previous ECGs available ECG 12-LEAD Routine 12/10/2017 5:43 Results for this AM CDT procedure are in the results section. CBC (HEMOGRAM ONLY) Routine 12/10/2017 5:18 Results for this AM CDT procedure are in the results section. BASIC METABOLIC PANEL Routine 12/10/2017 5:18 Results for this (7) AM CDT procedure are in the results section. ANTIBODY IDENTIFICATION Routine 12/09/2017 6:34 Results for this PM CDT procedure are in the results section. PREPARE LEUKO-REDUCED Routine 12/09/2017 11:18 Results for this RBC AM CDT procedure are in the results section. POCT-ACT Routine 12/09/2017 9:43 Results for this AM CDT procedure are in the results section. HGB/HCT (H&H) - STAT STAT 12/09/2017 9:34 Results for this LAB AM CDT procedure are in the results section. GLUCOSE-STAT LAB STAT 12/09/2017 9:34 Results for this AM CDT procedure are in the results section. POTASSIUM-STAT LAB STAT 12/09/2017 9:34 Results for this AM CDT procedure are in the results section. SODIUM NA-STAT LAB STAT 12/09/2017 9:34 Results for this AM CDT procedure are in the results section. BLOOD GAS, ARTERIAL STAT 12/09/2017 9:34 Results for this AM CDT procedure are in the results section. RRL CRITICAL LABS STAT 12/09/2017 9:34 Results for this (ABG,NA,K,H&H,GLUCOSE) AM CDT procedure are in the results section. TRANSESOPHAGEAL ECHO STAT 12/09/2017 7:57 Results for this AM CDT procedure are in the results section. REPORT OF PROCEDURE - 12/09/2017 7:10 ENDOSCOPY SCAN AM CDT RHYTHM STRIP - SCAN 12/09/2017 7:10 AM CDT VASCULAR DIAGRAM -SCAN 12/09/2017 7:10 AM CDT CONT WAVE PULSED Routine 12/09/2017 6:57 DOPPLER AM CDT COLOR-FLOW MAPPING Routine 12/09/2017 6:57 AM CDT TYPE AND SCREEN, Routine 12/09/2017 6:26 Results for this AUTOMATED AM CDT procedure are in the results section. TAVR / KYLIE MCR - IP 12/09/2017 4:10 Aortic valve PROC ONLY AM CDT stenosis, nonrheumatic Case Notes (1) Case, 6T OP, MAC ANESTHESIA. 5773mGy Special Needs MAC ANESTHESIA CARDIAC CATH REPORT 12/07/2017 8:10 PM - SCAN CDT CBC (HEMOGRAM ONLY) Routine 12/05/2017 5:25 AM Results for this CDT procedure are in the results section. BASIC METABOLIC Routine 12/05/2017 5:25 AM Results for this PANEL (7) CDT procedure are in the results section. POCT-ACT Routine 12/04/2017 12:34 PM Results for this CDT procedure are in the results section. POCT-ACT Routine 12/04/2017 11:41 AM Results for this CDT procedure are in the results section. POCT-ACT Routine 12/04/2017 9:14 AM Results for this CDT procedure are in the results section. POCT-ACT Routine 12/04/2017 8:48 AM Results for this CDT procedure are in the results section. DISC INSPECTOR FEMORAL &/OR 12/04/2017 7:35 AM PVD (peripheral POPLITEAL CDT vascular disease) (HCC) Case Notes (2) POP6 DISC INSPECTOR ILIAC ARTERY 12/04/2017 7:35 AM CDT PVD (peripheral vascular disease) (HCC) Case Notes (2) POP6 TRANSFUSION SERVICE 11/28/2017 5:42 REPORT - SCAN PM CDT TRANSFUSION SERVICE 11/27/2017 5:43 REPORT - SCAN PM CDT ANTIBODY Routine 11/27/2017 12:51 Results for this IDENTIFICATION PM CDT procedure are in the results section. CBC W/PLT COUNT & AUTO Routine 11/26/2017 4:41 Results for this DIFFERENTIAL PM CDT procedure are in the results section. TYPE AND SCREEN, Routine 11/26/2017 4:41 Results for this AUTOMATED PM CDT procedure are in the results section. B-TYPE NATRIURETIC Routine 11/26/2017 4:41 Results for this FACTOR (BNP) PM CDT procedure are in the results section. PROTHROMBIN TIME/INR Routine 11/26/2017 4:41 Results for this PM CDT procedure are in the results section. CBC W/PLT COUNT & AUTO Routine 11/26/2017 4:41 Results for this DIFFERENTIAL PM CDT procedure are in the results section. COMPREHENSIVE Routine 11/26/2017 4:41 Results for this METABOLIC PANEL PM CDT procedure are in the results section. CT/CTA CHEST Routine 11/26/2017 12:56 Nonrheumatic aortic Results for this PM CDT valve stenosis procedure are in the results section. CT/CTA ABDOMEN & Routine 11/26/2017 12:56 Nonrheumatic aortic Results for this PELVIS PM CDT valve stenosis procedure are in the results section. POCT-CREATININE Routine 11/26/2017 11:51 Results for this AM CDT procedure are in the results section. after 07/07/2017 Results RHYTHM STRIP - SCAN (05/27/2018 9:10 AM CDT)Only the most recent of6 resultswithin the time period is included. Narrative Performed At VASCULAR DIAGRAM -SCAN (05/05/2018 11:00 AM CDT)Only the most recent of8 resultswithin the time period is included. Narrative Performed At EKG-SCANNED (03/31/2018 11:10 AM CDT)Only the most recent of5 resultswithin the time period is included. Narrative Performed At Daily Prothrombin time/INR while on warfarin (03/29/2018 4:16 AM CDT)Only the most recent of11 resultswithin the time period is included. Protime 25.0 (H) 11.7 - 14.7 seconds [facility] INR 2.3 <=5.9 [facility] Specimen Blood Narrative Performed At [facility] RECOMMENDED COUMADIN/WARFARIN INR THERAPY RANGES STANDARD DOSE: 2.0 - 3.0 Includes: PROPHYLAXIS for venous thrombosis, systemic embolization; TREATMENT for venous thrombosis and/or pulmonary embolus. HIGH RISK: Target INR is 2.5-3.5 for patients with mechanical heart valves. While on warfarin. Performing Organization Address City/[facility] Cent[facility]ode Phone Number [address] [address] CENTER Vancomycin level, random (03/29/2018 4:16 AM CDT)Only the most recent of2 resultswithin the time period is included. Vancomycin Rm 16.9 ug/mL [facility] Specimen Blood Narrative Performed At [facility] Reference Range: No Normals Performing Organization Address City/[facility] Centercode Phone Number [address] [address] CENTER Basic Metabolic Panel (03/29/2018 4:16 AM CDT)Only the most recent of13 resultswithin the time period is included. Sodium 137 136 - 145 meq/L [facility] Potassium 3.5 3.5 - 5.1 meq/L [facility] Chloride 106 98 - 107 meq/L [facility] CO2 22 22 - 29 meq/L [facility] BUN 18 7 - 21 mg/dL [facility] Creatinine 0.92 0.57 - 1.25 mg/dL [facility] Glucose 95 70 - 105 mg/dL [facility] Calcium 8.7 8.4 - 10.2 mg/dL [facility] EGFR 80Comment: ESTIMATED GFR IS mL/min/1.73 sq m [facility] NOT ACCURATE CREATININE [facility] CLEARANCE IN PREDICTING GLOMERULAR FILTRATION RATE. ESTIMATED GFR IS NOT APPLICABLE FOR DIALYSIS PATIENTS. Specimen Blood Performing Organization Address [facility] Centercode Phone Number [address] [address] [place] Vancomycin level, trough (03/27/2018 5:46 PM CDT)Only the most recent of3 resultswithin the time period is included. Vancomycin Tr 25.2 (H) 10.0 - 20.0 ug/mL [facility] Specimen Blood - Arm, Left Performing Organization Address [facility] Centercode Phone Number [address] [address] [phone] [place] Lactic acid, venous, whole blood (03/27/2018 5:22 AM CDT) Lactate, Venous 0.6 0.5 - 2.2 mmol/L [facility] Specimen Blood Narrative Performed At [facility] Effective 12/12/2015: Units/Reference Range Change New: 0.5-2.2 mmol/LPrevious: 5-20 mg/dL Performing Organization Address [facility] Centercode Phone Number [address] [address] [place] CBC with platelet count + automated diff (03/25/2018 5:28 AM CDT)Only the most recent of7 resultswithin the time period is included. WBC 3.8 3.5 - 10.5 K/L [facility] RBC 3.43 (L) 4.63 - 6.08 M/L [facility] Hemoglobin 9.2 (L) 13.7 - 17.5 GM/DL [facility] Hematocrit 29.6 (L) 40.1 - 51.0 % [facility] MCV 86.3 79.0 - 92.2 fL [facility] MCH 26.8 25.7 - 32.2 pg [facility] MCHC 31.1 (L) 32.3 - 36.5 GM/DL [facility] RDW 15.8 (H) 11.6 - 14.4 % [facility] Platelets 163 150 - 450 K/CU MM [facility] MPV 9.9 9.4 - 12.4 fL [facility] nRBC 0 0 - 0 /100 WBC [facility] % Neutros 57 % [facility] % Lymphs 24 % [facility] % Monos 12 % [facility] % Eos 6 % [facility] % Baso 1 % [facility] # Neutros 2.18 1.78 - 5.38 K/L [facility] # Lymphs 0.93 (L) 1.32 - 3.57 K/L [facility] # Monos 0.44 0.30 - 0.82 K/L [facility] # Eos 0.23 0.04 - 0.54 K/L [facility] # Baso 0.03 0.01 - 0.08 K/L [facility] Immature Granulocytes-Relative 0 0 - 1 % [facility] Specimen Blood Performing Organization Address City/State/Zipcode Phone Number [facility] [phone] [place] Tissue Exam (03/23/2018 11:36 AM CDT)Only the most recent of2 resultswithin the time period is included. Case Report Surgical Pathology Report Case: [id number] [facility] Authorizing Provider:Aris Parker MD Collected: 03/23/2018 1136 [facility] Ordering Location: [facility] Received: 03/23/2018 1158 [facility] Pathologist: Lanie Jaquez MD Specimen:Groin, Right, Right Groin Tissue DIAGNOSIS SOFT TISSUE, RIGHT GROIN, DEBRIDEMENT: [facility] - FIBROADIPOSE TISSUE WITH FAT NECROSIS, ACUTE AND CHRONIC INFLAMMATION, [facility] AND FOREIGN BODY GIANT CELL REACTION Signing Pathologist Direct Phone Line: [phone] CPT Code(s) 59975 [facility] CLINICAL HISTORY infection [facility] SPECIMEN SOURCE Right groin tissue [facility] GROSS DESCRIPTION The specimen is received in [facility] a formalin-filled container [facility] and labeled with the patient's information and labeled "right groin tissue" and consists of a segment of rodríguez-chapman hemorrhagic soft tissue measuring 3 x 1.6 x 0.5 cm. Division Supervisor sections are submitted A1.CG/pl MICROSCOPIC DESCRIPTION Performed. [facility] Specimen Tissue - Groin, Right Performing Organization Address City/[facility] Centercode Phone Number [address] [address] [place] [employer] culture + smear (03/23/2018 11:31 AM CDT)Only the most recent of2 resultswithin the time period is included. Result No acid-fast bacilli isolated in [facility] 42 days CENTER AFB Smear No acid fast bacilli seen [facility] Specimen Body Fluid - Groin, Right Performing Organization Address City/[facility]/Zipcode Phone Number [address] [address] [phone] [place] Anaerobic culture (03/23/2018 11:31 AM CDT)Only the most recent of2 resultswithin the time period is included. Result No anaerobes isolated [facility] Specimen Body Fluid - Groin, Right Performing Organization Address [facility] Centercode Phone Number [address] [address] [place] Surgically obtained culture + gram stain (03/23/2018 11:31 AM CDT)Only the most recent of2 resultswithin the time period is included. Result METHICILLIN RESISTANT [facility] STAPHYLOCOCCUS AUREUS (A) MEDICAL CENTER Result 1+ Enterococcus species (A) [facility] Gram Stain Result <1+ WBCs [facility] Gram Stain Result No organisms seen [facility] Specimen Body Fluid - Groin, Right Organism Antibiotic Method Susceptibility Methicillin resistant Clindamycin >=4: Resistant Staphylococcus aureus Methicillin resistant Erythromycin >=8: Resistant Staphylococcus aureus Methicillin resistant Linezolid 2: Susceptible Staphylococcus aureus Methicillin resistant Oxacillin >=4: Resistant Staphylococcus aureus Methicillin resistant Rifampin <=0.5: Susceptible Staphylococcus aureus Methicillin resistant Tetracycline <=1: Susceptible Staphylococcus aureus Methicillin resistant Trimethoprim + 40: Susceptible Staphylococcus aureus Sulfamethoxazole Methicillin resistant Vancomycin 1: Susceptible Staphylococcus aureus Enterococcus species Ampicillin <=2: Susceptible Enterococcus species Linezolid 2: Susceptible Enterococcus species Vancomycin 1: Susceptible Performing Organization Address [facility] Phone Number [address] [address] [place] Fungus culture + smear (03/23/2018 11:31 AM CDT)Only the most recent of2 resultswithin the time period is included. Result No fungus isolated in 28 days [facility] Fungus Smear No fungi seen [facility] Specimen Body Fluid - Groin, Right Performing Organization Address [facility]/Zipcode Phone Number [address] [address] CENTER SPIN/CONCENTRATION CHARGE (03/23/2018 11:31 AM CDT) Concentration charged Done [facility] Specimen Body Fluid - Groin, Right Performing Organization Address [facility]ercopa Phone Number [facility] [address] [place] [address] CENTER TRANSFUSION SERVICE REPORT - SCAN (02/07/2018 6:00 PM CDT)Only the most recent of7 resultswithin the time period is included. Narrative Performed At Prepare RBC (02/05/2018 3:24 PM CDT)Only the most recent of3 resultswithin the time period is included. Unit ABO O Neg [facility] [place] UNIT NUMBER [id number] [facility] [place] Status WORK IN PROGRESS [facility] Blood Bank Product RED BLOOD CELLS [facility] [place] PRODUCT CODE [id number] [facility] TX Unit ABO O Neg [facility]AFETR[facility] TX UNIT NUMBER [id number] [facility] TX Status WORK IN PROGRESS [facility] TX Blood Bank Product RED BLOOD CELLS [facility] TX PRODUCT CODE [id number] [facility] TX CROSSMATCH COMPATIBLE [facility] TX CROSSMATCH COMPATIBLE SAFETRACE TX Performing Organization Address City/[facility] Phone Number [employer] TX CBC (Hemogram only) (02/05/2018 5:13 AM CDT)Only the most recent of5 resultswithin the time period is included. WBC 6.5 3.5 - 10.5 K/L [facility] RBC 3.24 (L) 4.63 - 6.08 M/L [facility] Hemoglobin 8.5 (L) 13.7 - 17.5 GM/DL [facility] Hematocrit 27.4 (L) 40.1 - 51.0 % [facility] MCV 84.6 79.0 - 92.2 fL [facility] MCH 26.2 25.7 - 32.2 pg [facility] MCHC 31.0 (L) 32.3 - 36.5 GM/DL [facility] RDW 18.4 (H) 11.6 - 14.4 % [facility] Platelets 127 (L) 150 - 450 K/CU MM [facility] MPV 9.8 9.4 - 12.4 fL [facility] nRBC 0 0 - 0 /100 WBC [facility] Specimen Blood Performing Organization Address City/[facility] Phone Number [address] [address] CENTER Phosphorus (02/05/2018 5:13 AM CDT)Only the most recent of4 resultswithin the time period is included. Phosphorus 2.2 (L) 2.3 - 4.7 mg/dL [facility] Specimen Blood Performing Organization Address [facility] Phone Number [address] [address] CENTER Magnesium (02/05/2018 5:13 AM CDT)Only the most recent of4 resultswithin the time period is included. Magnesium 2.1 1.6 - 2.6 mg/dL [facility] Specimen Blood Performing Organization Address [facility] Phone Number [address] [address] CENTER Hemoglobin and hematocrit (02/04/2018 11:49 AM CDT)Only the most recent of2 resultswithin the time period is included. Hemoglobin 8.4 (L) 13.7 - 17.5 GM/DL [facility] Hematocrit 28.9 (L) 40.1 - 51.0 % [facility] Specimen Blood - Arm, Right Performing Organization Address [facility] Phone Number [address] [address] [phone] [place] CARDIAC CATH REPORT - SCAN (02/03/2018 12:40 PM CDT) Narrative Performed At Comprehensive metabolic panel (02/03/2018 5:10 AM CDT)Only the most recent of2 resultswithin the time period is included. [facility], Total 5.7 (L) 6.0 - 8.3 gm/dL [facility] Albumin 3.3 (L) 3.5 - 5.0 g/dL [facility] Alkaline Phosphatase 133 40 - 150 U/L [facility] Total Bilirubin 0.8 0.2 - 1.2 mg/dL [facility] Sodium 134 (L) 136 - 145 meq/L [facility] Potassium 4.1 3.5 - 5.1 meq/L [facility] Chloride 106 98 - 107 meq/L [facility] CO2 19 (L) 22 - 29 meq/L [facility] BUN 6 (L) 7 - 21 mg/dL [facility] Creatinine 0.88 0.57 - 1.25 mg/dL [facility] Glucose 163 (H) 70 - 105 mg/dL [facility] Calcium 8.3 (L) 8.4 - 10.2 mg/dL [facility] AST 12 5 - 34 U/L [facility] ALT <6 (L) 6 - 55 U/L [facility] EGFR 85Comment: ESTIMATED GFR mL/min/1.73 sq m [facility] IS NOT ACCURATE [facility] CREATININE CLEARANCE IN PREDICTING GLOMERULAR FILTRATION RATE. ESTIMATED GFR IS NOT APPLICABLE FOR DIALYSIS PATIENTS. Specimen Blood - Line, Venous Performing Organization Address City/State/Zipcode Phone Number [facility] [address] [place] [address] CENTER XR chest 1 view portable / bedside (02/02/2018 11:00 PM CDT) Narrative Performed At FINAL REPORT [facility] Chest, one view HISTORY: Postop COMPARISON: CTA [...] MD Report Verified Date/Time:02/02/2018 23:12:37 Reading Location: [facility] C013 Consult Reading Room Procedure Note Interface, External [...] Report Verified Date/Time: 02/02/2018 23:12:37 Reading Location: [facility] C013 Consult Reading Room Performing Organization Address City/State/Zipcode Phone Number [facility] Oxygen saturation, measured (02/02/2018 10:51 PM CDT) O2 Saturation (Measured) 72.2 % [facility] Specimen Blood Performing Organization Address City/State/Zipcode Phone Number [facility] [address] [place] [phone] CENTER Calcium, Ionized (02/02/2018 10:51 PM CDT)Only the most recent of4 resultswithin the time period is included. Calcium, Ion 1.02 (L) 1.12 - 1.27 mmol/L [facility] pH, Blood 7.38 [facility] Specimen Blood Performing Organization Address [facility] Centercode Phone Number [address] [address] [phone] [place] Lactic acid, arterial, whole blood (02/02/2018 10:51 PM CDT) Lactate, Art 1.7 0.5 - 2.2 mmol/L [facility] Specimen Blood, Arterial Narrative Performed At [facility] Effective 12/12/2015: Units/Reference Range Change New: 0.5-2.2 mmol/LPrevious: 5-20 mg/dL Performing Organization Address [facility] Phone Number [address] [address] [place] aPTT (02/02/2018 10:51 PM CDT)Only the most recent of2 resultswithin the time period is included. PTT 29.8 22.5 - 36.0 seconds [facility] Specimen Blood Performing Organization Address [facility] Phone Number [address] [address] [place] Fibrinogen (02/02/2018 10:51 PM CDT)Only the most recent of2 resultswithin the time period is included. Fibrinogen 276 225 - 434 mg/dl [facility] Specimen Blood Performing Organization Address [facility] Phone Number [address] [address] [place] Hepatic function panel (02/02/2018 10:51 PM CDT) Protein, Total 5.8 (L) 6.0 - 8.3 gm/dL [facility] Albumin 3.5 3.5 - 5.0 g/dL [facility] Total Bilirubin 1.5 (H) 0.2 - 1.2 mg/dL [facility] Bilirubin, Direct 0.8 (H) 0.1 - 0.5 mg/dL [facility] Alkaline Phosphatase 142 40 - 150 U/L [facility] AST 12 5 - 34 U/L [facility] [facility] ALT 7 6 - 55 U/L [facility] Specimen Blood Performing Organization Address [facility] Phone Number [address] [address] [phone] CENTER Hemoglobin-Stat Lab (02/02/2018 6:42 PM CDT) Hemoglobin 9.9 (L) 13.0 - 16.8 g/dL [facility] Specimen Blood, Arterial Performing Organization Address [facility] Phone Number [address] [address] [phone] CENTER Potassium-Stat Lab (02/02/2018 6:42 PM CDT)Only the most recent of3 resultswithin the time period is included. Potassium 4.2 3.6 - 5.5 meq/L [facility] Specimen Blood, Arterial Performing Organization Address [facility] Phone Number [address] [address] CENTER Sodium Na-Stat Lab (02/02/2018 6:42 PM CDT)Only the most recent of3 resultswithin the time period is included. Sodium 133 (L) 135 - 148 meq/L [facility] Specimen Blood, Arterial Performing Organization Address City/[facility] Phone Number [address] [address] [phone] CENTER Glucose-Stat Lab (02/02/2018 6:42 PM CDT)Only the most recent of3 resultswithin the time period is included. Glucose 134 (H) 70 - 110 mg/dL [facility] Specimen Blood, Arterial Performing Organization Address City/[facility]/Zipcode Phone Number [address] [address] [phone] [facility] HEMATOCRIT-STAT LAB (02/02/2018 6:42 PM CDT) Hematocrit 29.0 (L) 40.0 - 50.0 % [facility] Specimen Blood, Arterial Performing Organization Address City/[facility] Phone Number [address] [address] [phone] [facility] HGB/HCT (H&H)-Stat Lab (02/02/2018 6:42 PM CDT)Only the most recent of3 resultswithin the time period is included. Hemoglobin 9.9 (L) 13.0 - 16.8 GM/DL [facility] Hematocrit 29.0 (L) 40.0 - 50.0 % [facility] Specimen Blood, Arterial Performing Organization Address [facility] Phone Number [address] [address] [phone] [facility] Blood gas, arterial (02/02/2018 6:42 PM CDT)Only the most recent of3 resultswithin the time period is included. pH, Arterial 7.37 7.35 - 7.45 [facility] pCO2, Arterial 39 35 - 45 mmHg [facility] pO2, Arterial 229 (H) 80 - 90 mmHg [facility] O2 Sat, Arterial 99.5 (H) 96.0 - 97.0 % [facility] HCO3, Arterial 22 21 - 29 mmol/L [facility] Base Excess, Arterial -3.4 (L) -2.0 - 3.0 mmol/L [facility] Patient Temperature 37.0 C [facility] Specimen Blood, Arterial Performing Organization Address City/[facility] Phone Number [address] [address] [phone] CENTER Platelet count (02/02/2018 6:42 PM CDT) Platelets 149 (L) 150 - 450 K/CU MM [facility] Specimen Blood Performing Organization Address [facility] Phone Number [address] [address] CENTER POC ACTIVATED CLOTTING TIME (02/02/2018 5:35 PM CDT)Only the most recent of9 resultswithin the time period is included. Activated Clotting Time 279Comment: TESTED AT sec [facility] [address] [place] [address] Specimen Blood Performing Organization Address [facility] Phone Number [address] [address] CENTER Antibody identification (02/02/2018 1:43 PM CDT)Only the most recent of3 resultswithin the time period is included. ANTIBODY ID (KIMBER) Anti-E SAFETRACE [place] Antibody Consult SIGNED OUTComment: Anti E causes RBC SAFETRACE TX injury, transfuse E negative RBCs.Electronic Signature: James Hou M.D. Performing Organization Address [facility] Phone Number SAFETRACE [place] Type and screen, automated (02/02/2018 9:21 AM CDT)Only the most recent of3 resultswithin the time period is included. ABO/RH AUTOMATED (PetsDx Veterinary ImagingAKER) O POSITIVE [facility] Ab Scrn POSITIVEComment: echo 2 [facility] Specimen Blood Performing Organization Address [facility] Phone Number [address] [address] MRA extremity lower without & with IV contrast (01/28/2018 5:13 PM CDT) Narrative Performed At FINAL REPORT [facility] MRA of the lower extremities, 28 January [...] reconstruction was performed by an independent workstation ([employer] CRM). Please refer to the contrast sheet scanned [...] CT scan. The proximal abdominal aorta is osage. The celiac axis, SMA are patent with [...] coil embolisation procedure as per EPIC. The osage left external iliac artery and the left [...] centimeters of the left SFA could be osage. However, there is likely a left femoral [...] posterior tibial artery. In the right, the osage right SFA is seen to be occluded. [...] distance, though thereafter, it is occluded. 4.The osage left SFA is likely occluded and a left femoral to distal popliteal bypass graft is identified that is patent with no proximal or distal anastomotic stenosis. Essentially three-vessel runoff is seen in the left lower extremity. 5.In the right, the osage right SFA is occluded. It appears patient [...] MD Report Verified Date/Time:01/28/2018 17:43:09 Reading Location: [place] [address] Cardiology MRI Procedure Note Interface, External Ris [...] reconstruction was performed by an independent workstation (Play[employer] CRM). Please refer to the contrast sheet scanned [...] CT scan. The proximal abdominal aorta is osage. The celiac axis, SMA are patent with [...] coil embolisation procedure as per EPIC. The osage left external iliac artery and the left [...] centimeters of the left SFA could be osage. However, there is likely a left femoral [...] posterior tibial artery. In the right, the osage right SFA is seen to be occluded. [...] though thereafter, it is occluded. 4. The osage left SFA is likely occluded and a left femoral to distal popliteal bypass graft is identified that is patent with no proximal or distal anastomotic stenosis. Essentially three-vessel runoff is seen in the left lower extremity. 5. In the right, the osage right SFA is occluded. It appears patient [...] Report Verified Date/Time: 01/28/2018 17:43:09 Reading Location: [facility] P047 Cardiology MRI Performing Organization Address City/State/Zipcode Phone Number [employer] RIS CARDIAC CATH REPORT - SCAN (01/28/2018 3:40 PM CDT) Narrative Performed At Vein mapping arm/arms (01/28/2018 1:00 PM CDT) Ejection Fraction [facility]ART[facility] MKCKESSON CPACS Impressions Performed At Right Impression [facility] E[facility]ART[facility] MKCKESSON CPACS 1. There is no deep venous obstruction [...] + + + + !Location ! !AP Diam!Trans Diam ! !AP Diam!Trans Diam ! + + + + + [...] + + + + !Location ! !AP Diam!Trans Diam ! !AP Diam!Trans Diam ! + + + + + + + + !Basilic at [facility] UA ! !0.37 ! ! !0.43 ! ! + + + + + + + + !Basilic at Mid UA ! !0.25 ! ! !0.19 ! ! + + + + + + + + !Basilic at Dist UA ! !0.29 ! ! !0.15 ! ! + + + + + + + + Narrative Performed At PV LAB - Upper Extremities Vein Mapping [facility]ART[facility] MKCKESSON [facility] Demographics Patient Name Luis Felipe MCKEON of Study 01/28/2018 DOROTEO [id number] Age 72 Visit Number [id number] GenderMale Accession Number [id number] Date of 1945 [facility] Room Number C632 [facility]. Ryan Colon. Alessandro Morelos MD, RVT Physician RPVI Procedure Type of Study: Veins: Upper Extremity Vein Mapping, VEIN MAPPING ARM/ARMS. Indications for Study:Pre-op for vein harvesting. Patient Status:Routine. Study Location:Vascular Lab. Technical Quality:Adequate visualization. - Results were reported to:CHRYSTAL Robledo @ 8142. Risk Factors History of Disease + +----+ + !Diagnosis !Date!Comments ! + +----+ + !History/Risk Factors: !!PAD, COPD, HTN, HLD, CAD, AAA ! + +----+ + Procedure Note Interface, External Ris In - 01/28/2018 2:18 PM CDT PV LAB - Upper Extremities Vein Mapping Demographics Patient Name WALTER MCKEON Date of Study 01/28/2018 DOROTEO Age 72 Visit Number [id number] Gender Male Accession Number [id number] Date of 1945 Referring Andreina Gonzales Room Number C632 Physician EYulissa Digital Data Analyst Trupti Samaniego Interpreting Oral Morelos MD, RVT Physician MATTI Procedure Type of Study: Veins: Upper Extremity Vein Mapping, VEIN MAPPING ARM/ARMS. Indications for Study:Pre-op for vein harvesting. Patient Status:Routine. Study Location:Vascular Lab. Technical Quality:Adequate visualization. - Results were reported to:CHRYSTAL Robledo @ 3183. Risk Factors History of Disease + +----+ [...] + + + + + +--- + Performing Organization Address City/State/[facility] Phone Number [facility] ECHOCARDIOGRAM REPORT - SCAN (12/11/2017 3:24 PM CDT) Narrative Performed At CARDIAC CATH REPORT - SCAN (12/11/2017 12:40 PM CDT) Narrative Performed At CARDIAC CATH REPORT - SCAN (12/10/2017 8:40 PM CDT) Narrative Performed At ECHOCARDIOGRAM REPORT - SCAN (12/10/2017 12:20 PM CDT) Narrative Performed At 2D Echo W/Doppler(CW/PW/Color) (12/10/2017 8:51 AM CDT) Ejection Fraction [facility] [employer] [facility] Narrative Performed At Transthoracic Echocardiography Report (TTE) [facility] [employer] [facility] Demographics Patient Name WALTER MCKEON Date of Study 12/10/2017 DOROTEO [id number] GenderMale Visit Number [id number] Room Number C632.2 Number Date of Birth1945Referring Physician Christian Hdz MD Age72 year(s)Digital Data Analyst Randall Mayfield [facility] AnalysKit Oden, Alaina Pelaez [facility] Physician Procedure Type of Study TTE procedure:2DECHO [...] LV endocardium is adequately visualized with IV ul trasound enhancing agent. Th e left ventricle is chamber size (by vol index) is mildly enlarged (male - LVED 75-89ml/m2). Mild co ncentric LV hypertrophy. All of the LV segments ar e hyperkinetic . Global LV systolic function hy perdynamic . LVEF by Campuzano's method of disk as sessment is increased (>70%) . Th e LVEF was measured using Campuzano's bi-plane me thod of disk . Hi gh (cardiac index >4 L/min/m2) cardiac output st ate at rest is noted. Gr yanely 1 diastolic dysfunction (impaired relaxation an d low-normal LA pressure). Left AtriumLA is incompletely visualized, size based on linear me asurement. LA size is normal . Right VentricleThe right ventricular chamber size and systolic fu nction are within normal limits. Right Atrium RA cavity size is normal . Aortic Valve A Denilson percutaneous (TAVR) biologic AoV pr osthesis is visualized . Th e prosthetic AoV appears well-seated. Ao V dimensionless obstructive index (DOI)) is 0.69 . Pr osthetic AoV regurgitaton is not demonstrated . Mitral Valve Mild mitral annular calcification. Tr gabriella mitral regurgitation. Tricuspid ValveTV structure is normal. A trace of tricuspid regurgitation. Un able to estimate peak systolic PA pressure; in adequate TR velocity signal. Pulmonic Valve PV is not well visualized; function appears normal by Doppler visualized. AortaAortic root size (SInus of Valsalva diameter) is in determinate (not well seen) . PericardiumNo pericardial effusion is visualized. IVC/SVC/PA/PV/PleuralThe inferior vena cava is adequately visualized. Th e inferior vena cava size is normal . Th e estimated RA pressure by IVC dynamics 5-10mmHg . Chambers/Structures Left Atrium LA Dimension: 3.36 cm Left Ventricle LVIDd: 4.19 cm LVIDs: 3.02 cm LV Septum Diastolic: 1.23 cm LV PW Diastolic: 1.21 cmLV FS: 27.9 % LVEDV Campuzano's:146.24 ml LVESV Campuzano's:35.28 mlLVEDVI: 77 ml/m^2 LVEF Campuzano's: 75.9 %LVESV I: 18 ml/m^2 LVOT Diameter: 2.12 cm Doppler/Quantitative [...] Study 12/10/2017 DOROTEO Gender Male Visit Number [id number] Race Room Number C632.2 Number Date of 1945 Referring Physician Christian Hdz MD Age 72 year(s) Digital Data Analyst Randall Mayfield [facility] Associate Music Professor Tabby Oden, Interpreting Alfie Pelaez [facility] Physician Procedure Type of Study TTE procedure:2DECHO [...] CO: 7.96 l/min LVOT CI: 4.17 l/min/m^2 Performing Organization Address [facility] Phone Number [facility] MK[facility]ESS[facility] CPACS ECG 12 lead (12/10/2017 5:43 AM CDT) Narrative Performed At Ventricular Rate 80 BPM GE MUSE Atrial Rate 80 BPM P-R Interval 160 ms QRS Duration 92 ms Q-T Interval 394 ms QTC Calculation(Bazett) 454 ms P [place] 60 degrees R [place] -32 degrees T [place] 75 degrees Normal sinus rhythm Left axis deviation Nonspecific T wave abnormality Abnormal ECG No previous ECGs available Confirmed by Silvia DUPONT BASANT ([id number]) on 12/10/2017 7:41:25 PM Procedure Note Interface, External Ris In - 12/10/2017 7:41 PM CDT Ventricular Rate 80 BPM Atrial Rate 80 BPM P-R Interval 160 ms QRS Duration 92 ms Q-T Interval 394 ms QTC Calculation(Bazett) 454 ms P [place] 60 degrees R [place] -32 degrees T [place] 75 degrees Normal sinus rhythm Left axis deviation Nonspecific T wave abnormality Abnormal ECG No previous ECGs available Confirmed by Silvia DUPONT BASANT (Isai) on 12/10/2017 7:41:25 PM Performing Organization Address [facility] Phone Number [employer] Leuko-Red RBC (12/09/2017 11:18 AM CDT) Unit ABO O Pos SAFETRACE TX UNIT NUMBER [id number] SAFETRACE TX Status RETURNED FROM ISSUE SAFETRACE TX Blood Bank Product RED BLOOD CELLS SAFETRACE TX PRODUCT CODE [id number] SAFETRACE TX Unit ABO O Pos SAFETRACE TX UNIT NUMBER [id number] SAFETRACE TX Status RETURNED FROM ISSUE SAFETRACE TX Blood Bank Product RED BLOOD CELLS SAFETRACE TX PRODUCT CODE [id number] SAFETRACE TX Unit ABO O Pos SAFETRACE TX UNIT NUMBER [id number] SAFETRACE TX Status RETURNED FROM ISSUE SAFETRACE TX Blood Bank Product RED BLOOD CELLS SAFETRACE TX PRODUCT CODE [id number] SAFETRACE TX Unit ABO O Pos SAFETRACE TX UNIT NUMBER [id number] SAFETRACE TX Status RETURNED FROM ISSUE SAFETRACE TX Blood Bank Product RED BLOOD CELLS SAFETRACE TX PRODUCT CODE [id number] SAFETRACE TX CROSSMATCH COMPATIBLE SAFETRACE TX CROSSMATCH COMPATIBLE SAFETRACE TX CROSSMATCH COMPATIBLE SAFETRACE TX CROSSMATCH COMPATIBLE SAFETRACE TX Specimen Other Performing Organization Address City/State/Zipcode Phone Number SAFETRACE TX Transesophageal echo (12/09/2017 7:57 AM CDT) Ejection Fraction [facility] MKCKESSON CPA Narrative Performed At Transesophageal Echocardiography Report (UZAIR) [facility]ART[facility] MKCK[facility]ON [facility] Demographics Patient Name WALTER MCKEON Date of Study 12/09/2017 DOROTEO [id number] GenderMale Visit Number [id number] Room Number C632.2 Number Date of Birth1945Referring Physician Andreina Gonzales MD Age72 year(s)Digital Data Analyst Abiodun [facility] Physician Fellow Tiffanie Cohen MD Procedure Type of Study UZAIR procedure:TRANSESOPHAGEAL ECHO Indications:TAVR. Clinical History ,AAA,ANEMIA,A-FIB,CANCER,CHF,COPD,DEPRESSION,PRUITT ,DVT,GI BLEED,HLD,HTN,PVD, Height: 67 inches Weight: 79.38 kg [...] Findings Rhythm/BPRegular sinus rhythm during the exam. Re gular sinus rhythm during the exam. Left Ventricle Grossly normal left ventricular chamber size and ov erall left ventricular systolic function. Left AtriumLA size is grossly normal. Right VentricleGrossly the right ventricular chamber size and sy stolic function are within normal limits. Right Atrium The right atrium is not well visualized. Atrial SeptumThe interatrial septum is not well visualized. Aortic Valve Heavily calcified aortic valve, leaflets do not op en well, no gradients recorded based on prior st udies there is severe aortic stenosis. By color do ppler there is mild to moderate AI. Mitral Valve Zsdh-pp-vsadhjnp MV leaflet thickening. Mi ld mitral regurgitation. No stenosis. Tricuspid ValveMild thickening, , mild to moderate TR in limited vi ews. Pulmonic Valve Not well visualized. AortaAortic root size (SInus of Valsalva diameter) is no rmal . PericardiumNo significant pericardial effusion is visualized. IVC/SVC/PA/PV/PleuralNot well visualized. Procedure Note Interface, External Ris In - 12/11/2017 2:46 PM CDT Transesophageal Echocardiography Report (UZAIR) Demographics Patient Name WALTER MCKEON Date of Study 12/09/2017 DOROTEO Gender Male Visit Number [id number] Race Room Number C632.2 Number Date of 1945 Referring Physician Andreina Gonzales MD Age 72 year(s) Digital Data Analyst Abiodun Carmen, Physician Fellow Tiffanie Cohen MD Procedure [...] is mild to moderate AI. Mitral Valve Ovrx-vh-banuqkod MV leaflet thickening. Mild mitral regurgitation. No stenosis. Tricuspid Valve Mild thickening, , mild to moderate TR in limited views. Pulmonic Valve Not well visualized. Aorta Aortic root size (SInus of Valsalva diameter) is normal . Pericardium No significant pericardial effusion is visualized. IVC/SVC/PA/PV/Pleural Not well visualized. Performing Organization Address City/State/Zipcode Phone Number [facility] MATTHEWSayduckROSHAN [facility] CARDIAC CATH REPORT - SCAN (12/07/2017 8:10 PM CDT) Narrative Performed At B-type Natriuretic Factor (BNP) (11/26/2017 4:41 PM CDT) BNP 142 (H) 0 - 100 pg/mL [facility] Specimen Blood Performing Organization Address City/State/Zipcode Phone Number [facility] [address] [place] [address] CENTER CTA chest (11/26/2017 12:56 PM CDT) Narrative Performed At Addendum Begins Trendr REPORT STATUS:A Addendum: The images were reviewed with Dr. Hdz. There is a missing dictation, specifically, despite the aortic bypass surgery the osage left common iliac artery is still patent with retrograde filling from the left external iliac artery, with aneurysmal dilation identified. Image 466, it measures approximately 4.3 x 4.2 cm in diameter. Some intraluminal thrombus is seen. This is the left common iliac artery. The left internal iliac artery is also patent, with calcification present. Signed: Juwan Raimrez MD Report Verified Date/Time:11/27/2017 11:56:33 Reading Location: [place] [address] Cardiology MRI Addendum Ends Addendum Begins REPORT [...] MD Report Verified Date/Time:11/26/2017 18:03:42 Reading Location: [place] [id number] Angio Body Reading Room Addendum Ends FINAL [...] takeoff of the left renal artery with siwn-qb-gbqofdhq stenosis identified. Arch vessel branching pattern is [...] and 8.2 mm, respectively with mildtortuosity and ecgr-zu-yzpuwleqmfxofomf atherosclerosis present. Right iliac limb is patent. [...] dictated, however, the ordering physician is the SPRING FLOOR SERVICE WORKER TREE EXPERT of the [facility] and therefore no recommendation would be necessary. [...] 4.An addendum will be dictated by the Separator Operator [employer] Radiologist regarding the nonvascular findings. Signed: Juwan Ramirez MD Report Verified Date/Time:11/26/2017 16:25:25 Reading Location: [place] [address] Cardiology MRI Procedure Note Interface, External Ris In - 11/27/2017 11:58 AM CDT Addendum Begins REPORT STATUS:A Addendum: The images were reviewed with Dr. Hdz. There is a missing dictation, specifically, despite the aortic bypass surgery the osage left common iliac artery is still patent [...] Report Verified Date/Time: 11/27/2017 11:56:33 Reading Location: [place] [address] Cardiology MRI Addendum Ends Addendum Begins REPORT [...] Report Verified Date/Time: 11/26/2017 18:03:42 Reading Location: [place] [id number] Angio Body Reading Room Addendum Ends FINAL [...] takeoff of the left renal artery with mjox-xk-hnlwgqlp stenosis identified. Arch vessel branching pattern is [...] 8.2 mm, respectively with mild tortuosity and bfri-in-tannalmv calcific atherosclerosis present. Right iliac limb is [...] dictated, however, the ordering physician is the SPRING FLOOR SERVICE WORKER TREE EXPERT of the [facility] and therefore no recommendation would be necessary. [...] An addendum will be dictated by the Separator Operator [employer] Radiologist regarding the nonvascular findings. Signed: Juwan Ramirez MD Report Verified Date/Time: 11/26/2017 16:25:25 Reading Location: [place] [id number] Cardiology MRI Performing Organization Address City/State/Zipcode Phone Number Trendr CTA abdomen & pelvis (11/26/2017 12:56 PM CDT) Narrative Performed At Addendum Begins [employer] RIS REPORT STATUS:A Addendum: The images were reviewed with Dr. Hdz. There is a missing dictation, specifically, despite the aortic bypass surgery the osage left common iliac artery is still patent [...] MD Report Verified Date/Time:11/27/2017 11:56:33 Reading Location: [place] [address] Cardiology MRI Addendum Ends Addendum Begins REPORT [...] MD Report Verified Date/Time:11/26/2017 18:03:42 Reading Location: [place] [id number] Angio Body Reading Room Addendum Ends FINAL [...] and during intravenous contrast administration using a Luek multidetector CT scanner. Images were obtained before [...] takeoff of the left renal artery with snxv-sz-pgznremd stenosis identified. Arch vessel branching pattern is [...] and 8.2 mm, respectively with mildtortuosity and thco-nr-wuvkcqgviucsqsmo atherosclerosis present. Right iliac limb is patent. [...] dictated, however, the ordering physician is the SPRING FLOOR SERVICE WORKER TREE EXPERT of the [facility] and therefore no recommendation would be necessary. [...] 4.An addendum will be dictated by the Separator Operator [employer] Radiologist regarding the nonvascular findings. Signed: Juwan Ramirez MD Report Verified Date/Time:11/26/2017 16:25:25 Reading Location: [place] [address] Cardiology MRI Procedure Note Interface, External Ris In - 11/27/2017 11:58 AM CDT Addendum Begins REPORT STATUS:A Addendum: The images were reviewed with Dr. Hdz. There is a missing dictation, specifically, despite the aortic bypass surgery the osage left common iliac artery is still patent [...] Report Verified Date/Time: 11/27/2017 11:56:33 Reading Location: [place] [address] Cardiology MRI Addendum Ends Addendum Begins REPORT [...] Report Verified Date/Time: 11/26/2017 18:03:42 Reading Location: [place] [address] Angio Body Reading Room Addendum Ends FINAL [...] takeoff of the left renal artery with cjfi-ep-wrktbwgz stenosis identified. Arch vessel branching pattern is [...] 8.2 mm, respectively with mild tortuosity and lnvi-le-dznxtcle calcific atherosclerosis present. Right iliac limb is [...] dictated, however, the ordering physician is the SPRING FLOOR SERVICE WORKER TREE EXPERT of the [facility] and therefore no recommendation would be necessary. [...] An addendum will be dictated by the Separator Operator [employer] Radiologist regarding the nonvascular findings. Signed: Juwan Ramirez MD Report Verified Date/Time: 11/26/2017 16:25:25 Reading Location: [place] [address] Cardiology MRI Performing Organization Address City/State/Zipcode Phone Number GE RIS POC-Creatinine (11/26/2017 11:51 AM CDT) POC-Creatinine 1.1Comment: TESTED AT 0.6 - 1.3 mg/dL [facility] [address] [place] [address] POC-EGFR 65 mL/min/1.73M2 [facility] Specimen Blood Performing Organization Address [facility] Number [facility] [address] [place] [address] CENTER after 07/07/2017 Insurance Payer Benefit Plan / Group Subscriber ID Type Phone Address MEDICARE MEDICARE A B xxxxxxxxxx Medicare (Home) [place] [address] Advance Directives For more information, please contact:[address] [phone] Code Status Date Activated Date Inactivated Comments Full Code 03/23/2018 1:22 AM 03/29/2018 9:24 PM This code status was determined by: Patient Full Code 02/02/2018 8:36 AM 02/05/2018 5:24 PM This code status was determined by: Patient Full Code 01/27/2018 1:43 PM 01/28/2018 9:53 PM This code status was determined by: Patient Full Code 12/09/2017 6:08 AM 12/10/2017 6:05 PM This code status was determined by: Patient Full Code 12/04/2017 6:51 AM 12/05/2017 7:07 PM This code status was determined by: Patient
--- OUTSIDE RECORDS SUMMARY | 2018-07-08 05:42 | XMS REPORT | Continuity of Care Document ---
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 Medical Center NONTRAUMATIC Active [facility] SUBDURAL Medical HEMORRHAGE, Center UNSPEC Medications Medication Details Route Status Patient Ordering Order Source Instructions Provider Date Warfarin Sodium 5 mg=1 tab, PO, Active [facility] 5 MG Oral Tablet Daily, INR goal 2015 Medical [Coumadin] 2-3, # 30 tab, 0 Center Refill(s) tamsulosin 0.4 0.8 mg=2 cap, Active 05/30[facility] [place] mg oral capsule PO, Daily, 0 2016 Medical Refill(s) [place] Levetiracetam 1,500 mg=3 tab, Active 05/30[facility] 500 MG Oral PO, [id number], # 2016 Medical Tablet 90 tab, 0 Center Refill(s) Docusate Sodium 100 mg=1 cap, Active 05/30[facility] [place] 100 MG Oral PO, Q12H, # 20 2016 Medical Capsule cap, 0 Refill(s) [place] phenol 1 spray, Route: No Longer 05/30[facility] TOP, TID, Drug Active 2015 Medical form: SPRY, PRN Center Sore Throat, Start date: 05/29/16 22:35:00 CDT, Duration: 30 day, Stop date: 06/28/16 22:34:00 CSTNotes: Chloraseptic [place] (Same as: Chloraseptic, Sore Throat [place]) WASTE: F/P - Black; E - Municipal Trash Bin Coumadin 5 mg, 1 tab, Inactive [place] Route: PO, Drug 2015 Medical form: TAB, ONCE, Center Dosing Weight 76.36, kg, Start date: 05/29/16 21:30:00 CDT, Stop date: 05/29/16 21:30:00 CDT Warfarin 5 mg, 1 tab, Inactive [place] Route: PO, Drug 2015 Medical form: TAB, Q5PM, Center Dosing Weight 76.36, kg, Start date: 05/29/16 17:00:00 CDT, Duration: 1 doses or times, Stop date: 05/29/16 17:00:00 CDT Labetalol 200 mg, 1 tab, No Longer [place] Route: PO, Drug Active 2015 Medical form: TAB, Q8H, Center Dosing Weight 76.36, kg, Start date: 05/29/16 9:44:00 CDT, Duration: 30 day, Stop date: 06/28/16 8:00:00 CSTNotes: With food. (Same as:Trandate, Normodyne) Keppra 1,500 mg, 3 tab, No Longer [place] Route: PO, Drug Active 2015 Medical form: TAB, Center [id number], Start date: 05/29/16 6:00:00 CDT, Duration: 30 day, Stop date: 06/27/16 18:00:00 CSTNotes: (Same as:Keppra) Coumadin 5 mg, 1 tab, Inactive [place] Route: PO, Drug 2015 Medical form: TAB, [...] Catapres) Miralax 17 gm, Route: No Longer [facility] PO, Daily, Active 2015 Medical Dosing Weight Center 76.36, kg, Start date: 05/28/16 9:00:00 CDT, Duration: 30 day, Stop date: 06/26/16 9:00:00 STITCHDOWN TOE FORMER Remeron 7.5 mg, 1 tab, No Longer [place] Route: PO, Drug Active 2015 Medical form: TAB, Center Bedtime, Dosing Weight 76.36, kg, Start date: 05/27/16 21:00:00 CDT, Duration: 30 day, Stop date: 06/25/16 21:00:00 CSTNotes: (Same as:Remeron) ibuprofen 100 600 mg, 30 mL, No Longer [facility] mg/5 mL oral Route: PO, Drug Active 2015 Medical suspension form: SUSP, Q6H, Center Dosing Weight 76.36, kg, Start date: 05/27/16 15:00:00 CDT, Duration: 30 day, Stop date: 06/26/16 12:00:00 CSTNotes: (Same as: Motrin Children's, Advil Children's) Take with food. Duragesic-100 1 patch, Route: No Longer [place] TOP, Drug form: Active 2016 Medical ERFILM, Q48H, Center Start date: 05/27/16 13:00:00 CDT, Duration: 30 day, Stop date: 06/24/16 13:00:00 CSTNotes: (Same as: Duragesic) Check for product integrity. Apply to intact skin "Remove old patch before application of new patch" Ibuprofen 600 mg, 30 mL, Inactive [place] Route: PO, Drug 2015 Medical form: SUSP, [...] Duration: 30 day, Stop date: 06/25/16 9:00:00 STITCHDOWN TOE FORMER Lisinopril 40 mg, Route: Inactive [place] PO, Drug form: 2016 Medical TAB, Daily, Center Dosing Weight 76.36, kg, Start date: 05/27/16 9:00:00 CDT, Duration: 30 day, Stop date: 06/25/16 9:00:00 STITCHDOWN TOE FORMER Miralax 17 gm, 1 pkt, No Longer [...] Active 2016 Medical Ipratropium SOLN, Dosing Center [place] 0.167 Weight 76.36, MG/ML Inhalant kg, Q4H, [...] Refill(s) Center Bitartrate 10 MG Oral Tablet [[place] ] lisinopril 40 mg 40 mg=1 tab, PO, Active [place] oral tablet Daily, 0 2016 Medical Refill(s) Center 12 HR Clonidine 0.1 mg=1 tab, Active [place] Hydrochloride PO, Bedtime, # 2016 Medical 0.1 MG Extended 30 tab, 0 Center Release Tablet Refill(s) 72 HR Fentanyl 1 patch, TOP, Active [place] 0.1 MG/HR Q48H, # 15 2016 Medical Transdermal patch, 0 [place] Patch Refill(s) [Duragesic] Warfarin Sodium 4 mg=1 tab, PO, No Longer [place] 4 MG Oral Tablet Daily, # 30 tab, Active 2016 Medical [Coumadin] 0 Refill(s) [place] Breo Ellipta 100 1 puff, Active [place] mcg-25 mcg INHALATION, 2016 Medical inhalation Daily, 0 [place] powder Refill(s) Vitamin B12 100 100 microgram=1 Active [place] mcg oral tablet tab, PO, Daily, 2016 Medical # 30 tab, 0 Center Refill(s) primidone 50 mg 50 mg=1 tab, PO, Active [facility] oral tablet BID, # 60 tab, 0 2016 Medical Refill(s) [place] tizanidine 4 MG 8 mg=2 tab, PO, Active [facility] Oral Tablet Q8H, # 180 tab, 2016 Medical [Zanaflex] 0 Refill(s) [place] Aspirin 81 MG 81 mg=1 tab, PO, No Longer [place] Enteric Coated Daily, # 90 tab, Active 2015 Medical Tablet 3 Refill(s) [place] Vitamin D3 400 400 IntlUnit=1 Active [place] intl units oral cap, PO, Daily, 2016 Medical capsule 0 Refill(s) [place] 200 ACTUAT 2 puff, INHALER, Active [place] Albuterol 0.09 Q6H, PRN for 2016 Medical MG/ACTUAT wheezing, # 8.5 Center Metered Dose gm, 0 Refill(s) Inhaler [ProAir HFA] Keppra 1,000 mg, Route: Inactive [place] IV, ONCE, Dosing 2016 Medical Weight 76.36, Center kg, Priority: STAT, Start date: 05/26/16 12:59:00 CDT, Stop date: 05/26/16 12:59:00 CDTNotes: Same as Keppra Mix with 100 mL NS, LR or D5W MEDICATION WASTE Product Size: 500 mg Product Wasted: ___ mg Hydralazine 10 mg, 0.5 mL, No Longer [place] Route: IV, Drug Active 2015 Medical form: [...] Duration: 30 day, Stop date: 06/24/16 1:28:00 STITCHDOWN TOE FORMER sodium chloride 1,000 mL, Rate: No Longer [place] 0.9% 1000 ml INJ 50 ml/hr, Infuse Active 2016 Medical 1,000 mL over: 20 hr, Center Route: IV, Dosing Weight 76.36 kg, Total Volume: 1,000, Start date: 05/25/16 21:30:00 CDT, Duration: 30 day, Stop date: 06/24/16 21:29:00 STITCHDOWN TOE FORMER Acetaminophen 1 tab, Route: No Longer [place] 325 MG / PO, Drug Form: Active 2016 Medical Hydrocodone TAB, Dosing Center Bitartrate 5 MG Weight 76.36, Oral Tablet kg, Q4H, PRN [[place] 5/325] Pain Score 6-10, Start date: 05/25/16 20:00:00 CDT, Stop date: 06/24/16 16:00:00 CSTNotes: (Same as: [place] 325/5) Do not exceed 4gm/day of acetaminophen. [...] Duration: 30 day, Stop date: 06/24/16 15:56:00 STITCHDOWN TOE FORMER Ancef 2 gm, Route: Inactive [place] IVPB, ONCE, 2016 Medical Dosing Weight Center 76.36, kg, Start date: 05/25/16 14:15:00 CDT, Duration: 1 doses or times, Stop date: 05/25/16 14:15:00 CDT Streptococcus 0.5 mL, Route: Inactive [place] pneumoniae IM, Drug Form: 2016 Medical serotype 1 INJ, Daily, Center capsular antigen Start date: diphtheria 05/25/16 9:00:00 [id number] protein CDT, Duration: 1 conjugate doses or times, vaccine / Stop date: Streptococcus 05/25/16 9:00:00 pneumoniae CDTNotes: serotype 14 Lightly roll capsular antigen vial (DO NOT diphtheria SHAKE) before NLY805 protein administration. conjugate (Same as: vaccine / Prevnar 13) Streptococcus pneumoniae serotype 18C capsular antigen d Vitamin K1 + 10 mg, 1 mL, No Longer [place] sodium chloride Route: IVPB, Active 2015 Medical 0.9% INJ 50 mL Daily, Dosing Center Weight 76.36, kg, Start date: 05/25/16 9:00:00 CDT, Duration: 3 doses or times, Stop date: 05/27/16 9:00:00 CDTNotes: (Same as: Aqua-Mephyton, Vitamin K) MEDICATION WASTE Product Size: 10 mg Product Wasted: ___ mg Saline Flush 10 ml, Route: No Longer [place] 0.9% IVP, Drug Form: Active 2015 Medical INJ, Dosing Center Weight 76.364, kg, Q12H, Start date: 05/25/16 9:00:00 CDT, Duration: 30 day, Stop date: 06/23/16 21:00:00 CSTNotes: (Same as: BD Posiflush) Levetiracetam 1,500 mg, 3 tab, No Longer [place] Route: PO, Drug Active 2015 Medical form: TAB, Q12H, Center Dosing Weight 76.364, kg, Start date: 05/25/16 9:00:00 CDT, Stop date: 06/23/16 21:00:00 CSTNotes: (Same as:Kathryn) Docusate 100 mg, 1 cap, No Longer [place] Route: PO, Drug Active 2015 Medical form: CAP, Q12H, Center Dosing Weight 76.364, kg, Start date: 05/25/16 9:00:00 CDT, Duration: 30 day, Stop date: 06/23/16 21:00:00 CSTNotes: (Same as: Colace) (Do Not Crush) sennosides, FCI 8.6 mg, 1 tab, No Longer [place] Route: PO, Drug Active 2015 Medical Form: TAB, Center Dosing Weight 76.364, kg, Q12H, Start date: 05/25/16 9:00:00 CDT, Duration: 30 day, Stop date: 06/23/16 21:00:00 CSTNotes: (Same as: [place]) Flomax 0.8 mg, 2 cap, No Longer [place] Route: PO, Drug Active 2015 Medical form: CAP, Center Daily, Dosing Weight 76.36, kg, Priority: NOW, Start date: 05/25/16 6:11:00 CDT, Duration: 30 day, Stop date: 06/23/16 9:00:00 CSTNotes: (Same As: Flomax) "Do Not Crush" Dexamethasone 6 mg, 1.5 mL, Inactive [place] Route: IV, Drug 2015 Medical form: INJ, ONCE, Center Dosing Weight 76.36, kg, Priority: NOW, Start date: 05/25/16 5:39:00 CDT, Stop date: 05/25/16 5:39:00 CDTNotes: Concentration: 4mg/ml Mannitol 100 gm, 500 mL, Inactive [place] Route: IVPB, 2015 Medical Drug form: INJ, Center ONCE, Dosing Weight 76.36, kg, Priority: NOW, Start date: 05/25/16 5:16:00 CDT, Stop date: 05/25/16 5:16:00 CDTNotes: (Same as: Osmitrol) Infuse through 5 micron or smaller filter WASTE: F/P - Sink; E - Municipal Trash Bin Vitamin K1 + 10 mg, 1 mL, Inactive [place] sodium chloride Route: IVPB, 2015 Medical 0.9% INJ 50 mL ONCE, Dosing Center Weight 76.364, kg, Priority: NOW, Start date: 05/25/16 0:23:00 CDT, Stop date: 05/25/16 0:23:00 CDTNotes: (Same as: Aqua-Mephy[place], Vitamin K) MEDICATION WASTE Product Size: 10 mg Product Wasted: ___ mg Magnesium Oxide 800 mg, 2 tab, No Longer [place] Route: PO, Drug Active 2015 Medical form: TAB, PRN, Center Dosing Weight 76.364, kg, PRN Abnormal Lab Result, FOR ICU USE ONLY, Start date: 05/24/16 23:11:00 CDT, Duration: 30 day, Stop date: 06/23/16 22:10:00 CSTNotes: (Same as: Mag-Ox 400) Magnesium oxide [id number] elemental magnesium Dose=____mg magnesium oxide (___mg elemental magnesium) Magnesium 2 gm, 50 mL, No Longer [place] Sulfate Route: IVPB, Active 2015 Medical Drug form: INJ, Center PRN, Dosing Weight 76.364, kg, PRN Abnormal Lab Result, Start date: 05/24/16 23:11:00 CDT, Duration: 30 day, Stop date: 06/23/16 22:10:00 STITCHDOWN TOE FORMER, FOR ICU USE ONLYNotes: WASTE: F/P - Sink; E - Municipal Trash Bin Calcium 500 mg, 1 tab, No Longer [place] Carbonate 500 MG Route: PO, Drug Active 2015 Medical Chewable Tablet form: CHEWTAB, Center PRN, Dosing Weight 76.364, kg, PRN Abnormal Lab Result, FOR ICU USE ONLY, Start date: 05/24/16 23:11:00 CDT, Duration: 30 day, Stop date: 06/23/16 22:10:00 CSTNotes: (Same As: Tums) Calcium Carbonate 500 cf=108 mg elemental calcium Dose= mg calcium carbonate ( mg elemental calcium) Calcium 1 gm, 10 mL, No Longer [place] Gluconate Route: IVPB, Active 2015 Medical PRN, Dosing Center Weight 76.364, kg, PRN Abnormal Lab Result, Start date: 05/24/16 23:11:00 CDT, Duration: 30 day, Stop date: 06/23/16 22:10:00 STITCHDOWN TOE FORMER, FOR ICU USE ONLYNotes: WASTE: F/P - [...] Duration: 30 day, Stop date: 06/23/16 22:10:00 STITCHDOWN TOE FORMER, FOR ICU USE ONLYNotes: (Same as: K Phosphate.) 1 mMol phoshate has 1.47 mEq potassium Infuse over 4 hours sodium phosphate 45 mmol, 15 mL, No Longer [place] + sodium Route: IVPB, Active 2015 Medical chloride 0.9% PRN, Dosing Center INJ 250 mL Weight 76.364, kg, PRN Abnormal Lab Result, Start date: 05/24/16 23:11:00 CDT, Duration: 30 day, Stop date: 06/23/16 22:10:00 STITCHDOWN TOE FORMER, FOR ICU USE ONLY potassium 10 mEq, 50 mL, No Longer [place] chloride Route: IVPB, Active 2015 Medical Drug form: INJ, Center PRN, Dosing Weight 76.364, kg, PRN Abnormal Lab Result, Via peripheral line, Start date: 05/24/16 23:11:00 CDT, Duration: 30 day, Stop date: 06/23/16 22:10:00 STITCHDOWN TOE FORMER, FOR ICU USE ONLYNotes: (Same as: KCL) Infuse over 2 hours. iodixanol 60 mL, Route: Inactive [place] IVP, Drug Form: 2015 Medical SOLN, Dosing Center Weight 76.364, kg, ONCALL, STAT, Start date: 05/24/16 22:50:00 CDT, Duration: 1 doses or times, Dose=2.2ml/kg, Max grxn=[id number] -- "To be infused by Radiology Staff [...] units) WASTE: F/P - Black; E - [employer] Trash Bin Stable for 28 days at room temperature Expires in days from Da te Dextrose 50% 6.25 gm, 12.5 No Longer [place] Syringe mL, Route: IVP, Active 2015 Medical Drug Form: INJ, Center Dosing Weight 76.364, kg, PRN, PRN Abnormal Lab Result, Start date: 05/24/16 22:17:00 CDT, Duration: 30 day, Stop date: 06/23/16 21:16:00 STITCHDOWN TOE FORMER Saline Flush 10 ml, Route: No Longer [place] 0.9% IVP, Drug Form: Active 2015 Medical INJ, Dosing Center Weight 76.364, kg, PRN, PRN Line Flush, Start date: 05/24/16 22:17:00 CDT, Duration: 30 day, Stop date: 06/23/16 21:16:00 CSTNotes: (Same as: BD Posiflush) Bisacodyl 10 mg, 1 supp, No Longer [place] Route: NE, Drug Active 2015 Medical form: SUPP, Center Daily, Dosing Weight 76.364, kg, PRN Constipation, Start date: 05/24/16 22:17:00 CDT, Duration: 30 day, Stop date: 06/23/16 22:16:00 CSTNotes: (Same As: Dulcolax, Bisco-Lax) Ondansetron 4 mg, 2 mL, No Longer [place] Route: IVP, Drug Active 2015 Medical form: [...] not exceed 4gm/day of acetaminophen. (Same as: [place] 325/10) Levetiracetam 1,000 mg, Route: No Longer [place] IVPB, Drug form: Active 2016 Medical INJ, ONCE, Center Dosing Weight 76.364, kg, Start date: 05/24/16 22:17:00 CDT, Stop date: 05/24/16 22:17:00 CDTNotes: Same as Keppra Mix with 100 mL NS, LR or D5W MEDICATION WASTE Product Size: 500 mg Product Wasted: __0_ mg Sodium Chloride 1,000 mL, Rate: No Longer [place] 0.154 MEQ/ML 75 ml/hr, Infuse Active 2015 Medical Injectable over: 13.3 hr, Center Solution Route: IV, Dosing Weight 76.364 kg, Total Volume: 1,000, Start date: 05/24/16 22:17:00 CDT, Duration: 30 day, Stop date: 06/23/16 22:16:00 STITCHDOWN TOE FORMER Acetaminophen 1 tab, Route: No Longer [place] 325 MG / PO, Drug Form: Active 2015 [facility] Hydrocodone TAB, Dosing Center Bitartrate 5 MG Weight 76.364, Oral Tablet kg, Q4H, PRN Pain Score 1-3, Start date: 05/24/16 22:17:00 CDT, Duration: 30 day, Stop date: 06/23/16 22:16:00 CSTNotes: (Same as: [place] 325/5) Do not exceed 4gm/day of acetaminophen. Saline Flush 10 mL, Route: No Longer [place] 0.9% IVP, Drug Form: Active 2015 Medical INJ, Dosing Center Weight 76.364, kg, PRN, PRN Line Flush, Start date: 05/24/16 20:56:00 CDT, Duration: 30 day, Stop date: 06/23/16 19:55:00 CSTNotes: (Same as: BD Posiflush) Allergies, Adverse Reactions, Alerts Substance Category Reaction Severity Reaction Status Date Comments Source type Reported Immunizations Immunization Date Site Status Last Updated Comments Source Given pneumococcal Right completed [facility] 13-valent 6 Deltoid Medical vaccine Center Results Order Name Results Value Reference Date Interpretation Comments Source Range HEMATOLOGY INR 1.08 0.85 - 05/30 [place] 1. [facility] HEMATOLOGY PT 14.2 s 12.0 - 05/30 [facility] 14. [facility] HEMATOLOGY INR 1.09 0.85 - 05/28 [facility] 1. [facility] HEMATOLOGY PTT 27.7 s 22.9 - 05/28 [place] 35.8 [facility] HEMATOLOGY PT 14.3 s 12.0 - 05/28 [place] 14. [facility] HEMATOLOGY Platelet 287 K/CMM 133 - 450 05/28 [facility] HEMATOLOGY MPV 8.4 fL 7.4 - 10.4 05/28 [facility] HEMATOLOGY MCHC 33.3 g/dL 32.0 - 05/28 [facility] 36.0 [facility] HEMATOLOGY Hgb 11.6 g/dL 14.0 - 05/28 18.0 [facility] HEMATOLOGY MCH 29.6 pg 27.0 - 05/28 31.0 [facility] HEMATOLOGY RDW 15.0 % 11.5 - 05/28 14. [facility] HEMATOLOGY MCV 88.9 fL 80.0 - 05/28 94.0 [facility] HEMATOLOGY Hct 35.0 % 42.0 - 05/28 [place] 54.0 [facility] HEMATOLOGY RBC 3.94 M/CMM 4.70 - 05/28 [place] 6.10 [facility] HEMATOLOGY WBC 11.4 K/CMM 3.7 - 10.4 05/28 [facility] HEMATOLOGY Monocytes # 1.3 K/CMM 0.0 - 0.8 05/28 [facility] HEMATOLOGY Segs-Bands # 8.9 K/CMM 1.5 - 8.1 05/28 [facility] HEMATOLOGY Lymphocytes 1.2 K/CMM 1.0 - 5.5 05/28 # /2015 [facility] HEMATOLOGY Basophils # 0.1 K/CMM 0.0 - 0.2 05/28 [facility] HEMATOLOGY Eosinophils 0.1 % 0.0 - 4.0 05/28 [facility] HEMATOLOGY Basophils 0.5 % 0.0 - 1.0 05/28 [facility] HEMATOLOGY Monocytes 11.5 % 2.0 - 12.0 05/28 [facility] HEMATOLOGY Segs 77.6 % 45.0 - 05/28 75.0 [facility] HEMATOLOGY Lymphocytes 10.3 % 20.0 - 05/28 40.0 [facility] CHEM PANEL eGFR 89 05/27 Result Comment: The eGFR is calculated using the CKD-EPI formula. In most young, healthy individuals the eGFR will be >90 mL/ min/1.73m2. The eGFR declines with age. An eGFR of 60-89 may be normal in [facility] mL/min/1.73 /2015 some populations, particularly the elderly, for whom the CKD-EPI formula has not been extensively validated. Use of the eGFR is not recommended in the following populations: [place] [address] Center Individuals with unstable creatinine concentrations, including [...] Lvl 104 mg/dL 70 - 99 05/27 [facility] CHEM PANEL Creatinine 0.80 mg/dL 0.50 - 05/27 [facility] Lvl 1.40 [facility] CHEM PANEL BUN 9 mg/dL 7 - 22 05/27 [facility] CHEM PANEL Sodium Lvl 137 meq/L 135 - 145 05/27 [facility] CHEM PANEL Potassium 3.9 meq/L 3.5 - 5.1 05/27 [facility] Comment: [facility] Slightly Hemolyzed. CHEM PANEL CO2 22 meq/L 24 - 32 05/27 [facility] CHEM PANEL Chloride Lvl 100 meq/L 95 - 109 05/27 [facility] CHEM PANEL Calcium Lvl 8.0 mg/dL 8.5 - 10.5 05/27 [facility] CHEM PANEL AGAP 18.9 meq/L 10.0 - 05/27 [facility] 20.0 [facility] CHEM PANEL Phosphorus 2.3 mg/dL 2.5 - 4.5 05/27 [facility] CHEM PANEL Magnesium 1.7 mg/dL 1.8 - 2.4 05/27 [facility] HEMATOLOGY Monocytes 7.2 % 2.0 - 12.0 05/27 [facility] HEMATOLOGY Lymphocytes 7.5 % 20.0 - 05/27 [place] 40.0 [facility] HEMATOLOGY Segs 85.1 % 45.0 - 05/27 [place] 75.0 [facility] HEMATOLOGY Segs-Bands # 9.0 K/CMM 1.5 - 8.1 05/27 [facility] HEMATOLOGY Basophils 0.2 % 0.0 - 1.0 05/27 [facility] HEMATOLOGY Monocytes # 0.8 K/CMM 0.0 - 0.8 05/27 [facility] HEMATOLOGY Lymphocytes 0.8 K/CMM 1.0 - 5.5 05/27 [facility] HEMATOLOGY MCV 88.5 fL 80.0 - 05/27 [place] 94.0 [facility] HEMATOLOGY Hct 31.9 % 42.0 - 05/27 [place] 54.0 [facility] HEMATOLOGY Hgb 11.0 g/dL 14.0 - 05/27 [place] 18.0 [facility] HEMATOLOGY RBC 3.61 M/CMM 4.70 - 05/27 [place] 6.10 [facility] HEMATOLOGY MCH 30.6 pg 27.0 - 05/27 [place] 31.0 [facility] HEMATOLOGY WBC 10.6 K/CMM 3.7 - 10.4 05/27 [facility] HEMATOLOGY Platelet 205 K/CMM 133 - 450 05/27 [facility] HEMATOLOGY RDW 14.7 % 11.5 - 05/27 [place] 14.5 [facility] HEMATOLOGY MCHC 34.6 g/dL 32.0 - 05/27 [place] 36.0 [facility] HEMATOLOGY MPV 9.3 fL 7.4 - 10.4 05/27 [facility] PARATHYROID Ca Norm WB 0.99 mMol/L 1.05 - 05/27 [facility] PROFILE 1. [facility] PARATHYROID Ca Ion WB 1.02 mMol/L 1.05 - 05/27 [facility] PROFILE 1. [facility] Brain wo Brain wo EXAM: CT BRAIN WITHOUT CONTRAST 05/27 - [facility] contrast CT contrast CT /2015 - Medical This report was dictated by a Corporate Tax Preparer/Fellow. I have personally reviewed the images as [...] evacuation. CARDIAC Troponin-T <0.010 0.000 - 05/26 [facility] ENZYMES ng/mL 0.100 [facility] CARDIAC Troponin-I null 0.00 - 05/26 [facility] ENZYMES 0.40 [facility] CARDIAC Total CK 50 unit/L 12 - 191 05/26 [facility] ENZYMES [facility] CHEM PANEL Magnesium 2.1 mg/dL 1.8 - 2.4 05/26 [facility] Lvl [facility] CHEM PANEL eGFR 88 05/26 Result Comment: The eGFR is calculated using the CKD-EPI formula. In most young, healthy individuals the eGFR will be >90 mL/ min/1.73m2. The eGFR declines with age. An eGFR of 60-89 may be normal in [facility] mL/min/1.73 some populations, particularly the elderly, for whom the CKD-EPI formula has not been extensively validated. Use of the eGFR is not recommended in the following populations: [place] [address] Center Individuals with unstable creatinine concentrations, including [...] CO2 23 meq/L 24 - 32 05/26 [facility] CHEM PANEL Chloride Lvl 100 meq/L 95 - 109 05/26 [facility] CHEM PANEL Calcium Lvl 7.8 mg/dL 8.5 - 10.5 05/26 [facility] CHEM PANEL AGAP 16.2 meq/L 10.0 - 05/26 [facility] 20.0 [facility] CHEM PANEL Sodium Lvl 135 meq/L 135 - 145 05/26 [facility] CHEM PANEL Glucose Lvl 78 mg/dL 70 - 99 05/26 [facility] CHEM PANEL BUN 9 mg/dL 7 - 22 05/26 [facility] CHEM PANEL Potassium 4.2 meq/L 3.5 - 5.1 05/26 [facility] Lvl /2015 [facility] CHEM PANEL Creatinine 0.81 mg/dL 0.50 - 05/26 [facility] Lvl 1.40 /2015 [facility] CHEM PANEL Phosphorus 3.3 mg/dL 2.5 - 4.5 05/26 [facility] HEMATOLOGY MCHC 34.6 g/dL 32.0 - 05/26 [place] 36.0 [facility] HEMATOLOGY RDW 14.1 % 11.5 - 05/26 [place] 14.5 [facility] HEMATOLOGY RBC 3.69 M/CMM 4.70 - 05/26 [place] 6.10 [facility] HEMATOLOGY WBC 10.1 K/CMM 3.7 - 10.4 05/26 [facility] HEMATOLOGY MPV 9.0 fL 7.4 - 10.4 05/26 [facility] HEMATOLOGY Platelet 234 K/CMM 133 - 450 05/26 [facility] [facility] HEMATOLOGY MCH 30.3 pg 27.0 - 05/26 [place] 31.0 [facility] HEMATOLOGY MCV 87.7 fL 80.0 - 05/26 [place] 94.0 [facility] HEMATOLOGY Hct 32.4 % 42.0 - 05/26 [place] 54.0 [facility] HEMATOLOGY Hgb 11.2 g/dL 14.0 - 05/26 [place] 18.0 [facility] HEMATOLOGY Ly30 0.2 % 0.0 - 7.5 05/26 [facility] HEMATOLOGY TEG Data See Note 05/26 [facility] (05/26/16 12:43 AM) [place] HEMATOLOGY G-value 15.5 K d/sc 4.5 - 11.0 05/26 [facility] HEMATOLOGY Max Amp 75.6 mm 50.0 - 05/26 [place] 70.0 [facility] HEMATOLOGY Coag Index 5.3 -3.0-3.0 - 05/26 [place] 3.0 [facility] HEMATOLOGY K-time 0.8 min 1.0 - 3.0 05/26 [facility] HEMATOLOGY Angle 78.6 53.0 - 05/26 [facility] degrees 72.0 [facility] HEMATOLOGY R-time 2.8 min 5.0 - 10.0 05/26 [facility] HEMATOLOGY TEG Interp Thrombelast 05/26 [facility] ograph [facility] show shortened value of R and increased values of both Angle Alpha and MA. These findings are suggestive of platelet and enzymatic hypercoagul ation which may be seen in early phase of DIC. Monitor for DIC with DIC panel may be indicated.C PT:[id number] HEMATOLOGY Monocytes 10.1 % 2.0 - 12.0 05/26 /2015 [facility] HEMATOLOGY Lymphocytes 13.2 % 20.0 - 05/26 [place] 40.0 [facility] HEMATOLOGY Segs-Bands # 7.7 K/CMM 1.5 - 8.1 05/26 /2015 [facility] HEMATOLOGY Basophils 0.4 % 0.0 - 1.0 05/26 [facility] HEMATOLOGY Eosinophils 0.1 % 0.0 - 4.0 05/26 [facility] /2015 [facility] HEMATOLOGY Monocytes # 1.0 K/CMM 0.0 - 0.8 05/26 [facility] /2015 [facility] HEMATOLOGY Lymphocytes 1.3 K/CMM 1.0 - 5.5 05/26 [facility] # [facility] HEMATOLOGY Segs 76.2 % 45.0 - 05/26 [facility] 75.0 [facility] PARATHYROID Ca Ion WB 1.11 mMol/L 1.05 - 05/26 [facility] PROFILE 1. [facility] PARATHYROID Ca Norm WB 1.08 mMol/L 1.05 - 05/26 [facility] PROFILE 1. [facility] Brain wo Brain wo EXAM: CT BRAIN 05/[address] [facility] [address] CT contrast CT /2015 [facility] DATE: 05/25/2016 at 23:43 Read by: Kim [...] eGFR of 60-89 may be normal in [facility] mL/min/1.73 /2015 some populations, particularly the elderly, for whom the CKD-EPI formula has not been extensively validated. Use of the eGFR is not recommended in the following populations: [place] [address] [facility] Individuals with unstable creatinine concentrations, including [...] PANEL AGAP 15.3 meq/L 10.0 - 05/25 [facility] 20.0 [facility] CHEM PANEL CO2 25 meq/L 24 - 32 05/25 [facility] CHEM PANEL Calcium Lvl 7.9 mg/dL 8.5 - 10.5 05/25 [facility] CHEM PANEL Chloride Lvl 100 meq/L 95 - 109 05/25 [facility] CHEM PANEL Potassium 4.3 meq/L 3.5 - 5.1 05/25 [facility] Lvl /2015 [facility] CHEM PANEL Sodium Lvl 136 meq/L 135 - 145 05/25 /2015 [facility] CHEM PANEL Creatinine 0.94 mg/dL 0.50 - 05/25 [facility] Lvl 1.40 [facility] CHEM PANEL Glucose Lvl 113 mg/dL 70 - 99 05/25 [facility] CHEM PANEL BUN 8 mg/dL 7 - 22 05/25 /2015 [facility] HEMATOLOGY INR 1.19 0.85 - 05/25 [place] 1.17 [facility] HEMATOLOGY PT 15.4 s 12.0 - 05/25 [place] 14.7 /2015 [facility] HEMATOLOGY PTT 34.1 s 22.9 - 05/25 [place] 35.8 /2016 [facility] PARATHYROID Ca Ion WB 1.07 mMol/L 1.05 - 05/25 [facility] [place] PROFILE 1.25 [facility] PARATHYROID Ca Norm WB 1.04 mMol/L 1.05 - 05/25 [facility] PROFILE 1. [facility] CARDIAC Troponin-T <0.010 0.000 - 05/25 [facility] ENZYMES ng/mL 0.100 [facility] CARDIAC Troponin-I null 0.00 - 05/25 [facility] ENZYMES 0.40 [facility] CARDIAC Total CK 57 unit/L 12 - 191 05/25 [facility] ENZYMES /2015 [facility] CHEM PANEL A/G Ratio 1.1 0.7 - 1.6 05/25 [facility] /2016 [facility] CHEM PANEL Bili 0.4 mg/dL 0.0 - 1.0 05/25 [facility] Indirect [facility] CHEM PANEL Bili Total 0.6 mg/dL 0.2 - 1.3 05/25 [facility]2015 [facility] CHEM PANEL Bili Direct 0.2 mg/dL 0.0 - 0.3 05/[address] CHEM PANEL AST 13 unit/L 0 - 37 05/25 [facility] /[address] [place] [address] CHEM PANEL Alk Phos 113 unit/L 39 - 136 05/25 [facility] /[address] [place] [address] CHEM PANEL Globulin 2.7 g/dL 2.7 - 4.2 05/[address] CHEM PANEL Total 5.7 g/dL 6.4 - 8.4 05/25 [facility] Protein [facility] CHEM PANEL Albumin Lvl 3.0 g/dL 3.5 - 5.0 05/[address] CHEM PANEL ALT 14 unit/L 0 - 65 05/[address] CHEM PANEL Phosphorus 3.2 mg/dL 2.5 - 4.5 05/25 [facility] /[address] [place] [address] CHEM PANEL Magnesium 1.7 mg/dL 1.8 - 2.4 05/25 [facility] Lvl /2015 [facility] Brain wo Brain wo Examination: MRI brain without contrast 05/25 - [facility] contrast contrast MRI /2015 - [facility] [place] DATE: 05/25/2016 Read by: Jaspreet Rodriguez MD [...] EXAM: XR CHEST 1 VIEW 05/25 - [facility] DX - [facility] DATE: 05/26/2016 3:00 AM CDT Read by: Faheem North MD Dictated Date/time: 05/26/16 10:30 Electronically Signed by: Faheem North MD 05/26/16 10:30 FINAL REPORT INDICATION: Respiratory distress COMPARISON: 05/24/2016 TECHNIQUE: AP chest IMPRESSION: 1. Both lungs are clear. Costophrenic recesses are sharp. Cardiomediastinal silhouette within normal limits. No acute osseous abnormalities. BLOOD BANK AB Int Anti-E 05/25 [facility] RESULTS /2015 [facility] BLOOD BANK Path AB Transfusion 05/25 [facility] RESULTS [facility] NoteThijodi is a 71 y/o male who was [...] the resident Dr. Lillian Alcantar's interpretat ion.CPT: [id number] BLOOD BANK ABO/Rh O POS 05/25 [facility] RESULTS [facility] BLOOD BANK Antibody Positive 1 05/25 Result Comment: 05/25/2016 01:18 [id number] [facility] RESULTS Scrn /2015 "Significant Findings called to Baljinder CAPUTO at 0115 by DMITRIY.Read Back OK." [facility] (05/24/16 9:09 PM) [place] 05/25/2016 01:14 [id number] Patient has unexpected antibodies. Allow extra time for additional crossmatches. HEMATOLOGY Max 68 mm 52 - 71 05/25 [facility] Amplitude [facility] HEMATOLOGY G-value 10.4 K d/sc 5.0 - 11.6 05/25 [facility] HEMATOLOGY Estimated % 0.4 % 0.0 - 7.5 05/25 [facility] Lysis [facility] HEMATOLOGY ACT (TEG) 121 s 86 - 118 05/25 [facility] /2015 [facility] HEMATOLOGY [place] 0.7 min 05/25 [facility] HEMATOLOGY R-time Rapid 0.8 min 0.4 - 0.7 05/25 [facility] HEMATOLOGY K-time Rapid 0.8 min 0.6 - 2.3 05/25 /2015 [facility] HEMATOLOGY Angle Rapid 80 degrees 64 - 80 05/25 /2015 [facility] HEMATOLOGY Eosinophils 1.7 % 0.0 - 4.0 05/25 [facility]2015 [facility] HEMATOLOGY Eosinophils 0.1 K/CMM 0.0 - 0.5 05/25 [facility] # [facility] HEMATOLOGY Basophils # 0.1 K/CMM 0.0 - 0.2 05/25 2015 [facility] HEMATOLOGY PTT 32.0 s 22.9 - 05/25 [place] 35.8 [facility] Brain-Outsi Brain-Outsid Exam: CT head without contrast 05/24 [facility] de Consult e Consult CT - Medical [...] 1.8 cm in thickness. Associated 0.8 cm [id number] midline shift. Brain/Neck Brain/Neck EXAM: CT ANGIOGRAM OF THE HEAD 05/24 [facility] CTA CTA /2015 - Medical EXAM: CT [...] P2 to P4 segments of the right [employer] compatible w ith diffuse disease. Diffuse changes of centrilobular emphysema in bilateral upper lungs. IMPRESSION: 1. Interval increase in size of the hyperacute subdural hematoma overlying the right cerebral hemisphere now measuring 2.6 cm previously measured 2.0 cm concerning for active bleeding. 2. Diffuse luminal irregularities of distal sylvian branches of the left MCA and distal branches of the right [employer] compatible with diffuse atherosclerotic disease. Diffuse arteriosclerosis [...] wo EXAM: CT HEAD WITHOUT CONTRAST 05/[address] [facility] contrast CT contrast CT /2016 [facility] DATE: 05/24/2016 8:56 PM CDT Read by: [...] EXAM: XR CHEST 1 VIEW 05/24 - [facility] DX - Medical This report was dictated by a Corporate Tax Preparer/Fellow. I have personally reviewed the images as [...] Comments Source Systolic (mm Hg) 178 05/30/2016 [facility] Diastolic (mm Hg) 88 05/30/2016 [facility] Temperature Oral (F) 97.7 F 05/30/2016 [facility] Heart Rate 65 05/30/2016 [facility] Respitory Rate 18 05/30/2016 [facility] Respitory Rate 18 05/30/2016 [facility] Heart Rate 71 05/30/2016 [facility] Systolic (mm Hg) 176 05/30/2016 [facility] Diastolic (mm Hg) 90 05/30/2016 [facility] Temperature Oral (F) 97.8 F 05/30/2016 [facility] Systolic (mm Hg) 113 05/30/2016 [facility] Diastolic (mm Hg) 62 05/30/2016 [facility] Temperature Oral (F) 98.1 F 05/30/2016 [facility] Respitory Rate 16 05/30/2016 [facility] Heart Rate 68 05/30/2016 [facility] BMI Calculated 25.6 05/25/2016 [facility] Weight 76.36 05/25/2016 [facility] Height 172.72 cm 05/25/2016 [facility] Weight 76.364 05/25/2016 [facility] BMI Calculated 26.37 05/25/2016 [facility] Height 170.18 cm 05/25/2016 [facility] Encounters Location Location Encounter Encounter Reason Attending ADM DC Status Source Details Type Number For Provider Date Date Visit [facility] [id number] [place] 05/25 05/30 [facility] Jevon Salguero /2015 [facility] Outpatient [id number] TRAUMA 06/12 [facility] /2015 [place] [facility] [id number] TRAUMA 07/24 [facility] /2015 [place] Procedures Procedure Code Date Perfomer Comments Source Abdominal aortic [id number] Had MRI after [facility] aneurysm repair Medical stenting<sup>1</ Center sup> Bypass / graft [id number] [facility] Hernia repair [id number] [facility]
--- OUTSIDE RECORDS SUMMARY | 2018-07-08 05:44 | XMS REPORT ---
:1945 Author Organization [facility] Address [address] [place] [address] Dr. Dennison [address] [place] [id number] Care Team Providers Name Role Phone PITER TIM Unavailable Unavailable NANDO HDZ Unavailable Unavailable Problems This patient has no known problems. Allergies, Adverse Reactions, Alerts This patient has no known allergies or adverse reactions. Medications This patient has no known medications. Results Test Description Test Time Test Comments Text Results Atomic Results Result Comments AFB CULTURE + SMEAR 2018-05-02 20:50:00 Test Item Value Reference Range Comments CULTURE (BEAKER) (test hfwz=5339) No acid-fast bacilli isolated in 42 days AFB SMEAR (BEAKER) (test ucyi=234) No acid fast bacilli seen AFB CULTURE + [id number] 20:50:00 Test Item Value Reference Range Comments CULTURE (BEAKER) (test No acid-fast bacilli isolated bncd=1631) in 42 days AFB SMEAR (BEAKER) (test No acid fast bacilli seen tyep=962) FUNGUS CULTURE + [id number] 10:14:00 Test Item Value Reference Range Comments CULTURE (BEAKER) (test No fungus isolated in 28 days nnia=0641) FUNGUS SMEAR (BEAKER) (test No fungi seen cynr=9918) FUNGUS CULTURE + [id number] 10:14:00 Test Item Value Reference Range Comments CULTURE (BEAKER) (test No fungus isolated in 28 days bwfr=8630) FUNGUS SMEAR (BEAKER) (test No fungi seen hylb=5846) VANCOMYCIN LEVEL, [id number] 05:33:00 Test Item Value Reference Range Comments VANCOMYCIN RANDOM (BEAKER) (test xfye=410) 16.9 ug/mL Reference Range: No NormalsBASIC METABOLIC [id number] 05:29:00 Test Item Value Reference Range Comments SODIUM (BEAKER) (test 137 meq/L 136-145 ashy=267) POTASSIUM (BEAKER) (test 3.5 meq/L 3.5-5.1 opif=162) CHLORIDE (BEAKER) (test 106 meq/L 98-107 hrwc=517) CO2 (BEAKER) (test 22 meq/L 22-29 bthk=347) BLOOD UREA NITROGEN 18 mg/dL 7-21 (BEAKER) (test exkg=383) CREATININE (BEAKER) (test 0.92 mg/dL 0.57-1.25 yzal=943) GLUCOSE RANDOM (BEAKER) 95 mg/dL 70-105 (test apzu=222) CALCIUM (BEAKER) (test 8.7 mg/dL 8.4-10.2 situ=327) EGFR (BEAKER) (test 80 mL/min/1.73 sq m ESTIMATED GFR IS NOT rmix=5322) ACCURATE CREATININE CLEARANCE IN PREDICTING GLOMERULAR FILTRATION RATE. ESTIMATED GFR IS NOT APPLICABLE FOR DIALYSIS PATIENTS. PROTHROMBIN [id number] 05:21:00 Test Item Value Reference Range Comments PROTIME (BEAKER) (test ptoc=639) 25.0 seconds 11.7-14.7 INR (BEAKER) (test oacc=350) 2.3 <=5.9 RECOMMENDED COUMADIN/WARFARIN INR THERAPY RANGESSTANDARD DOSE: 2.0 - 3.0 Includes: PROPHYLAXIS forvenous thrombosis, systemic embolization; TREATMENT for venous thrombosis and/or pulmonary embolus.HIGH RISK: Target INR is 2.5-3.5 for patients with mechanical heart valves.While on warfarin.BASIC METABOLIC [id number] 16:35:00 Test Item Value Reference Range Comments SODIUM (BEAKER) (test 137 meq/L 136-145 mepp=683) POTASSIUM (BEAKER) (test 3.5 meq/L 3.5-5.1 epmi=600) CHLORIDE (BEAKER) (test 105 meq/L 98-107 xwly=218) CO2 (BEAKER) (test 26 meq/L 22-29 hpyp=056) BLOOD UREA NITROGEN 16 mg/dL 7-21 (BEAKER) (test iupk=984) CREATININE (BEAKER) (test 1.02 mg/dL 0.57-1.25 fqjd=947) GLUCOSE RANDOM (BEAKER) 123 mg/dL 70-105 (test bpmh=453) CALCIUM (BEAKER) (test 9.0 mg/dL 8.4-10.2 pdlf=591) EGFR (BEAKER) (test 71 mL/min/1.73 sq m ESTIMATED GFR IS NOT lhfg=5222) ACCURATE CREATININE CLEARANCE IN PREDICTING GLOMERULAR FILTRATION RATE. ESTIMATED GFR IS NOT APPLICABLE FOR DIALYSIS PATIENTS. ANAEROBIC [id number] 08:59:00 Test Item Value Reference Range Comments CULTURE (BEAKER) (test egec=9438) No anaerobes isolated ANAEROBIC [id number] 08:58:00 Test Item Value Reference Range Comments CULTURE (BEAKER) (test gbee=7909) No anaerobes isolated VANCOMYCIN LEVEL, [id number] 05:18:00 Test Item Value Reference Range Comments VANCOMYCIN RANDOM (BEAKER) (test xcim=932) 19.8 ug/mL Reference Range: No NormalsPROTHROMBIN TIME/[id number] 04:55:00 Test Item Value Reference Range Comments PROTIME (BEAKER) (test ysjg=143) 23.5 seconds 11.7-14.7 INR (BEAKER) (test axir=722) 2.1 <=5.9 RECOMMENDED COUMADIN/WARFARIN INR THERAPY RANGESSTANDARD DOSE: 2.0 - 3.0 Includes: PROPHYLAXIS forvenous thrombosis, systemic embolization; TREATMENT for venous thrombosis and/or pulmonary embolus.HIGH RISK: Target INR is 2.5-3.5 for patients with mechanical heart valves.While on warfarin.VANCOMYCIN LEVEL, [id number] 18:17:00 Test Item Value Reference Range Comments VANCOMYCIN TROUGH (BEAKER) (test hsfw=903) 25.2 ug/mL 10.0-20.0 BASIC METABOLIC [id number] 15:13:00 Test Item Value Reference Range Comments SODIUM (BEAKER) (test 137 meq/L 136-145 viyk=267) POTASSIUM (BEAKER) (test 3.6 meq/L 3.5-5.1 adwg=801) CHLORIDE (BEAKER) (test 108 meq/L 98-107 vfef=072) CO2 (BEAKER) (test 22 meq/L 22-29 aoug=188) BLOOD UREA NITROGEN 16 mg/dL 7-21 (BEAKER) (test dnwi=908) CREATININE (BEAKER) (test 1.06 mg/dL 0.57-1.25 tptl=544) GLUCOSE RANDOM (BEAKER) 125 mg/dL 70-105 (test qjza=050) CALCIUM (BEAKER) (test 8.6 mg/dL 8.4-10.2 mwxh=398) EGFR (BEAKER) (test 68 mL/min/1.73 sq m ESTIMATED GFR IS NOT xmnx=2644) ACCURATE CREATININE CLEARANCE IN PREDICTING GLOMERULAR FILTRATION RATE. ESTIMATED GFR IS NOT APPLICABLE FOR DIALYSIS PATIENTS. PROTHROMBIN TIME/[id number] 06:16:00 Test Item Value Reference Range Comments PROTIME (BEAKER) (test jfxc=169) 21.9 seconds 11.7-14.7 INR (BEAKER) (test gxrt=168) 1.9 <=5.9 RECOMMENDED COUMADIN/WARFARIN INR THERAPY RANGESSTANDARD DOSE: 2.0 - 3.0 Includes: PROPHYLAXIS forvenous thrombosis, systemic embolization; TREATMENT for venous thrombosis and/or pulmonary embolus.HIGH RISK: Target INR is 2.5-3.5 for patients with mechanical heart valves.While on warfarin.LACTIC ACID, VENOUS , WHOLE [id number] 06:09:00 Test Item Value Reference Range Comments LACTATE BLOOD VENOUS (2) (BEAKER) (test 0.6 mmol/L 0.5-2.2 btlg=0662) Effective 12/12/2015: Units/Reference Range ChangeNew: 0.5-2.2 mmol/L Previous: 5 -20 mg/dLTISSUE [id number] 11:35:00Surgical Pathology Report Case: [id number] Authorizing Provider: Aris Parker MD Collected: 03/23/2018 1136 Ordering Location: [facility] Received: 2017 1158 PERIOPERATIVE SERVICES Pathologist: Lanie Jaquez MD Specimen: Groin, Right, Right Groin Tissue SOFT TISSUE, RIGHT GROIN, DEBRIDEMENT: - FIBROADIPOSE TISSUE WITH FAT NECROSIS, ACUTE AND CHRONIC INFLAMMATION, AND FOREIGN BODY GIANT CELL REACTION Signing Pathologist Direct Phone Line: [phone] signed by Lanie Jaquez MD on 2017 at 11:35 [id number] groin tissueThe specimen is received in a formalin-filled container and labeled with the patient's information and labeled "right groin tissue" and consists of a segment of rodríguez-chapman hemorrhagic soft tissue measuring 3 x 1.6 x 0.5 cm. Column Precaster sections are submitted A1.CG/pl Performed.SURGICALLY OBTAINED CULTURE + GRAM [id number] 09:47:00 Test Item Value Reference Range Comments GRAM STAIN RESULT (BEAKER) (test <1+ WBCs dtgo=2595) GRAM STAIN RESULT (BEAKER) (test No organisms seen phlc=57018) SURGICALLY OBTAINED CULTURE + GRAM [id number] 09:45:00 Test Item Value Reference Range Comments CULTURE (BEAKER) (test METHICILLIN RESISTANT 1+ Methicillin jfxz=2063) STAPHYLOCOCCUS AUREUS resistant Staphylococcus aureus Clindamycin (test code=10) Erythromycin (test code=4) Linezolid (test code=40) Nitrofurantoin (test code=23) Oxacillin (test code=14) Rifampin (test code=43) Tetracycline (test code=2) Trimethoprim + Sulfamethoxazole (test code=47) Vancomycin (test code=13) CULTURE (BEAKER) (test ENTEROCOCCUS SPECIES 1+ Enterococcus oopi=3961) species Ampicillin (test code=26) Linezolid (test code=40) Vancomycin (test code=13) GRAM STAIN RESULT <1+ WBCs (BEAKER) (test nwrp=3288) GRAM STAIN RESULT No organisms seen (BEAKER) (test bktp=624512) BASIC METABOLIC [id number] 05:17:00 Test Item Value Reference Range Comments SODIUM (BEAKER) (test 136 meq/L 136-145 trwi=684) POTASSIUM (BEAKER) (test 3.5 meq/L 3.5-5.1 mkif=130) CHLORIDE (BEAKER) (test 107 meq/L 98-107 jauc=447) CO2 (BEAKER) (test 22 meq/L 22-29 ssjn=383) BLOOD UREA NITROGEN 9 mg/dL 7-21 (BEAKER) (test dgme=130) CREATININE (BEAKER) (test 1.01 mg/dL 0.57-1.25 ltyj=575) GLUCOSE RANDOM (BEAKER) 88 mg/dL 70-105 (test yohq=365) CALCIUM (BEAKER) (test 8.5 mg/dL 8.4-10.2 flnv=616) EGFR (BEAKER) (test 72 mL/min/1.73 sq m ESTIMATED GFR IS NOT fgon=1811) ACCURATE CREATININE CLEARANCE IN PREDICTING GLOMERULAR FILTRATION RATE. ESTIMATED GFR IS NOT APPLICABLE FOR DIALYSIS PATIENTS. PROTHROMBIN TIME/[id number] 05:06:00 Test Item Value Reference Range Comments PROTIME (BEAKER) (test gqkh=309) 21.9 seconds 11.7-14.7 INR (BEAKER) (test pvlb=586) 1.9 <=5.9 RECOMMENDED COUMADIN/WARFARIN INR THERAPY RANGESSTANDARD DOSE: 2.0 - 3.0 Includes: PROPHYLAXIS forvenous thrombosis, systemic embolization; TREATMENT for venous thrombosis and/or pulmonary embolus.HIGH RISK: Target INR is 2.5-3.5 for patients with mechanical heart valves.While on warfarin.BASIC METABOLIC [id number] 07:04:00 Test Item Value Reference Range Comments SODIUM (BEAKER) (test 136 meq/L 136-145 gdvw=972) POTASSIUM (BEAKER) (test 3.4 meq/L 3.5-5.1 wwni=239) CHLORIDE (BEAKER) (test 106 meq/L 98-107 fure=684) CO2 (BEAKER) (test 24 meq/L 22-29 vskh=860) BLOOD UREA NITROGEN 8 mg/dL 7-21 (BEAKER) (test dhfa=141) CREATININE (BEAKER) (test 1.22 mg/dL 0.57-1.25 gafa=832) GLUCOSE RANDOM (BEAKER) 88 mg/dL 70-105 (test ohql=246) CALCIUM (BEAKER) (test 8.7 mg/dL 8.4-10.2 aerk=543) EGFR (BEAKER) (test 58 mL/min/1.73 sq m ESTIMATED GFR IS NOT ixxa=4869) ACCURATE CREATININE CLEARANCE IN PREDICTING GLOMERULAR FILTRATION RATE. ESTIMATED GFR IS NOT APPLICABLE FOR DIALYSIS PATIENTS. PROTHROMBIN TIME/[id number] 06:28:00 Test Item Value Reference Range Comments PROTIME (BEAKER) (test qtaa=201) 25.8 seconds 11.7-14.7 INR (BEAKER) (test vjdl=816) 2.4 <=5.9 RECOMMENDED COUMADIN/WARFARIN INR THERAPY RANGESSTANDARD DOSE: 2.0 - 3.0 Includes: PROPHYLAXIS forvenous thrombosis, systemic embolization; TREATMENT for venous thrombosis and/or pulmonary embolus.HIGH RISK: Target INR is 2.5-3.5 for patients with mechanical heart valves.While on warfarin.CBC W/PLT COUNT &amp ; AUTO [id number] 06:18:00 Test Item Value Reference Range Comments WHITE BLOOD CELL COUNT (BEAKER) (test wvep=827) 3.8 K/ L 3.5-10.5 RED BLOOD CELL COUNT (BEAKER) (test xwlf=023) 3.43 M/ L 4.63-6.08 HEMOGLOBIN (BEAKER) (test qzbh=052) 9.2 GM/DL 13.7-17.5 HEMATOCRIT (BEAKER) (test cbhj=939) 29.6 % 40.1-51.0 MEAN CORPUSCULAR VOLUME (BEAKER) (test hzcy=933) 86.3 fL 79.0-92.2 MEAN CORPUSCULAR HEMOGLOBIN (BEAKER) (test 26.8 pg 25.7-32.2 qeuz=442) MEAN CORPUSCULAR HEMOGLOBIN CONC (BEAKER) (test 31.1 GM/DL 32.3-36.5 ocbe=570) RED CELL DISTRIBUTION WIDTH (BEAKER) (test 15.8 % 11.6-14.4 kogh=978) PLATELET COUNT (BEAKER) (test goas=372) 163 K/CU MM 150-450 MEAN PLATELET VOLUME (BEAKER) (test ggfw=642) 9.9 fL 9.4-12.4 NUCLEATED RED BLOOD CELLS (BEAKER) (test 0 /100 WBC 0-0 hsno=432) NEUTROPHILS RELATIVE PERCENT (BEAKER) (test 57 % dzen=734) LYMPHOCYTES RELATIVE PERCENT (BEAKER) (test 24 % zyco=407) MONOCYTES RELATIVE PERCENT (BEAKER) (test 12 % ynqz=528) EOSINOPHILS RELATIVE PERCENT (BEAKER) (test 6 % pbax=782) BASOPHILS RELATIVE PERCENT (BEAKER) (test 1 % gkrq=101) NEUTROPHILS ABSOLUTE COUNT (BEAKER) (test 2.18 K/ L 1.78-5.38 tzfb=857) LYMPHOCYTES ABSOLUTE COUNT (BEAKER) (test 0.93 K/ L 1.32-3.57 hbka=765) MONOCYTES ABSOLUTE COUNT (BEAKER) (test 0.44 K/ L 0.30-0.82 zbpk=315) EOSINOPHILS ABSOLUTE COUNT (BEAKER) (test 0.23 K/ L 0.04-0.54 ygbz=251) BASOPHILS ABSOLUTE COUNT (BEAKER) (test 0.03 K/ L 0.01-0.08 uspc=430) IMMATURE GRANULOCYTES-RELATIVE PERCENT (BEAKER) 0 % 0-1 (test jvtz=8840) VANCOMYCIN LEVEL, [id number] 17:22:00 Test Item Value Reference Range Comments VANCOMYCIN TROUGH (BEAKER) (test nbwp=615) 14.6 ug/mL 10.0-20.0 SPIN/CONCENTRATION [id number] 10:53:00 Test Item Value Reference Range Comments CONCENTRATION CHARGED (BEAKER) (test yqvh=7155) Done BASIC METABOLIC [id number] 07:34:00 Test Item Value Reference Range Comments SODIUM (BEAKER) (test 133 meq/L 136-145 jiyb=851) POTASSIUM (BEAKER) (test 3.5 meq/L 3.5-5.1 nsrv=065) CHLORIDE (BEAKER) (test 104 meq/L 98-107 ttdh=794) CO2 (BEAKER) (test 23 meq/L 22-29 rfrc=582) BLOOD UREA NITROGEN 7 mg/dL 7-21 (BEAKER) (test wxss=616) CREATININE (BEAKER) (test 0.96 mg/dL 0.57-1.25 fsfm=562) GLUCOSE RANDOM (BEAKER) 94 mg/dL 70-105 (test togo=811) CALCIUM (BEAKER) (test 8.8 mg/dL 8.4-10.2 ilvi=954) EGFR (BEAKER) (test 76 mL/min/1.73 sq m ESTIMATED GFR IS NOT jgsh=7720) ACCURATE CREATININE CLEARANCE IN PREDICTING GLOMERULAR FILTRATION RATE. ESTIMATED GFR IS NOT APPLICABLE FOR DIALYSIS PATIENTS. PROTHROMBIN TIME/[id number] 07:05:00 Test Item Value Reference Range Comments PROTIME (BEAKER) (test moqn=239) 27.5 seconds 11.7-14.7 INR (BEAKER) (test bhaw=002) 2.6 <=5.9 RECOMMENDED COUMADIN/WARFARIN INR THERAPY RANGESSTANDARD DOSE: 2.0 - 3.0 Includes: PROPHYLAXIS forvenous thrombosis, systemic embolization; TREATMENT for venous thrombosis and/or pulmonary embolus.HIGH RISK: Target INR is 2.5-3.5 for patients with mechanical heart valves.CBC W/PLT COUNT & AUTO [id number] 06:55:00 Test Item Value Reference Range Comments WHITE BLOOD CELL COUNT (BEAKER) (test emfm=024) 5.3 K/ L 3.5-10.5 RED BLOOD CELL COUNT (BEAKER) (test tnac=847) 4.03 M/ L 4.63-6.08 HEMOGLOBIN (BEAKER) (test mqpe=959) 10.8 GM/DL 13.7-17.5 HEMATOCRIT (BEAKER) (test ymlo=183) 34.9 % 40.1-51.0 MEAN CORPUSCULAR VOLUME (BEAKER) (test xine=216) 86.6 fL 79.0-92.2 MEAN CORPUSCULAR HEMOGLOBIN (BEAKER) (test 26.8 pg 25.7-32.2 khqq=510) MEAN CORPUSCULAR HEMOGLOBIN CONC (BEAKER) (test 30.9 GM/DL 32.3-36.5 yytm=950) RED CELL DISTRIBUTION WIDTH (BEAKER) (test 15.4 % 11.6-14.4 aavn=770) PLATELET COUNT (BEAKER) (test mvkf=271) 185 K/CU MM 150-450 MEAN PLATELET VOLUME (BEAKER) (test nqnb=240) 10.1 fL 9.4-12.4 NUCLEATED RED BLOOD CELLS (BEAKER) (test 0 /100 WBC 0-0 oizs=929) NEUTROPHILS RELATIVE PERCENT (BEAKER) (test 65 % swwk=374) LYMPHOCYTES RELATIVE PERCENT (BEAKER) (test 17 % ojdh=256) MONOCYTES RELATIVE PERCENT (BEAKER) (test 12 % jouf=608) EOSINOPHILS RELATIVE PERCENT (BEAKER) (test 5 % aitd=446) BASOPHILS RELATIVE PERCENT (BEAKER) (test 1 % ivrv=172) NEUTROPHILS ABSOLUTE COUNT (BEAKER) (test 3.46 K/ L 1.78-5.38 ioet=713) LYMPHOCYTES ABSOLUTE COUNT (BEAKER) (test 0.91 K/ L 1.32-3.57 cudy=107) MONOCYTES ABSOLUTE COUNT (BEAKER) (test 0.61 K/ L 0.30-0.82 qxsl=015) EOSINOPHILS ABSOLUTE COUNT (BEAKER) (test 0.26 K/ L 0.04-0.54 vhvl=303) BASOPHILS ABSOLUTE COUNT (BEAKER) (test 0.03 K/ L 0.01-0.08 vkyd=277) IMMATURE GRANULOCYTES-RELATIVE PERCENT (BEAKER) 0 % 0-1 (test nxrc=8869) BASIC METABOLIC [id number] 06:54:00 Test Item Value Reference Range Comments SODIUM (BEAKER) (test 134 meq/L 136-145 gzoi=602) POTASSIUM (BEAKER) (test 3.6 meq/L 3.5-5.1 qopy=491) CHLORIDE (BEAKER) (test 102 meq/L 98-107 tkqr=367) CO2 (BEAKER) (test 27 meq/L 22-29 jcts=358) BLOOD UREA NITROGEN 8 mg/dL 7-21 (BEAKER) (test dnzi=612) CREATININE (BEAKER) (test 0.97 mg/dL 0.57-1.25 ywuh=862) GLUCOSE RANDOM (BEAKER) 91 mg/dL 70-105 (test qovw=080) CALCIUM (BEAKER) (test 8.4 mg/dL 8.4-10.2 nvjo=089) EGFR (BEAKER) (test 75 mL/min/1.73 sq m ESTIMATED GFR IS NOT nfnd=6205) ACCURATE CREATININE CLEARANCE IN PREDICTING GLOMERULAR FILTRATION RATE. ESTIMATED GFR IS NOT APPLICABLE FOR DIALYSIS PATIENTS. PROTHROMBIN TIME/[id number] 05:47:00 Test Item Value Reference Range Comments PROTIME (BEAKER) (test vceg=434) 31.6 seconds 11.7-14.7 INR (BEAKER) (test zywg=567) 3.1 <=5.9 RECOMMENDED COUMADIN/WARFARIN INR THERAPY RANGESSTANDARD DOSE: 2.0 - 3.0 Includes: PROPHYLAXIS forvenous thrombosis, systemic embolization; TREATMENT for venous thrombosis and/or pulmonary embolus.HIGH RISK: Target INR is 2.5-3.5 for patients with mechanical heart valves.CBC W/PLT COUNT & AUTO [id number] 05:35:00 Test Item Value Reference Range Comments WHITE BLOOD CELL COUNT (BEAKER) (test ztto=288) 4.3 K/ L 3.5-10.5 RED BLOOD CELL COUNT (BEAKER) (test dsxu=003) 3.62 M/ L 4.63-6.08 HEMOGLOBIN (BEAKER) (test apor=654) 9.6 GM/DL 13.7-17.5 HEMATOCRIT (BEAKER) (test mljy=430) 31.5 % 40.1-51.0 MEAN CORPUSCULAR VOLUME (BEAKER) (test gaas=881) 87.0 fL 79.0-92.2 MEAN CORPUSCULAR HEMOGLOBIN (BEAKER) (test 26.5 pg 25.7-32.2 whbv=840) MEAN CORPUSCULAR HEMOGLOBIN CONC (BEAKER) (test 30.5 GM/DL 32.3-36.5 krsh=015) RED CELL DISTRIBUTION WIDTH (BEAKER) (test 15.4 % 11.6-14.4 pslf=996) PLATELET COUNT (BEAKER) (test saod=478) 164 K/CU MM 150-450 MEAN PLATELET VOLUME (BEAKER) (test fewa=021) 9.9 fL 9.4-12.4 NUCLEATED RED BLOOD CELLS (BEAKER) (test 0 /100 WBC 0-0 scgq=304) NEUTROPHILS RELATIVE PERCENT (BEAKER) (test 57 % ucmh=382) LYMPHOCYTES RELATIVE PERCENT (BEAKER) (test 22 % dkxx=161) MONOCYTES RELATIVE PERCENT (BEAKER) (test 14 % htmm=374) EOSINOPHILS RELATIVE PERCENT (BEAKER) (test 6 % hazf=863) BASOPHILS RELATIVE PERCENT (BEAKER) (test 1 % zeoo=848) NEUTROPHILS ABSOLUTE COUNT (BEAKER) (test 2.48 K/ L 1.78-5.38 lenb=197) LYMPHOCYTES ABSOLUTE COUNT (BEAKER) (test 0.96 K/ L 1.32-3.57 yguw=930) MONOCYTES ABSOLUTE COUNT (BEAKER) (test 0.59 K/ L 0.30-0.82 fvvh=753) EOSINOPHILS ABSOLUTE COUNT (BEAKER) (test 0.25 K/ L 0.04-0.54 cout=930) BASOPHILS ABSOLUTE COUNT (BEAKER) (test 0.03 K/ L 0.01-0.08 ersj=970) IMMATURE GRANULOCYTES-RELATIVE PERCENT (BEAKER) 1 % 0-1 (test tjvt=6076) TISSUE [id number] 16:28:00Surgical Pathology Report Case: [id number] Authorizing Provider: Nando Hdz MD Collected: 02/02/20181941 Ordering Location: [facility] [employer] Received: 02/03/2018 0813 Pathologist: Sidney Wright MD Specimen: Plaque ARTERY, RIGHT ALIZEALD, ENDARTERECTOMY:CALCIFIC ATHEROSCLEROTIC PLAQUE WITH EROSION AND ATTACHED ORGANIZING THROMBUS Signing Pathologist Direct Phone Line: [phone] signed by Sidney Wright MDon 02/09/2018 at 4:28 [id number]; [id number] femoral artery plaqueRight femoral artery plaqueThe specimen is received in a formalin-filled container and labeled with the patient's information and labeled "right femoral artery plaque and consists of two calcified fragments of tissue both measuring 2 cm in length ranging in diameter from 0.6 to 1 cm and separate segment of hemorrhagic calcified tissue measuring 2.5 x 1.5 x 1 cm in aggregate. Column Precaster sections are submitted A1 for decalcification. CG/pl [id number] 06:08:00 Test Item Value Reference Range Comments PHOSPHORUS (BEAKER) (test usbo=453) 2.2 mg/dL 2.3-4.7 [id number] 06:08:00 Test Item Value Reference Range Comments MAGNESIUM (BEAKER) (test qdhl=303) 2.1 mg/dL 1.6-2.6 BASIC METABOLIC [id number] 06:08:00 Test Item Value Reference Range Comments SODIUM (BEAKER) (test 131 meq/L 136-145 mgxm=561) POTASSIUM (BEAKER) (test 3.5 meq/L 3.5-5.1 jnvx=427) CHLORIDE (BEAKER) (test 101 meq/L 98-107 najm=296) CO2 (BEAKER) (test 26 meq/L 22-29 zmgx=324) BLOOD UREA NITROGEN 12 mg/dL 7-21 (BEAKER) (test wbpx=895) CREATININE (BEAKER) (test 0.95 mg/dL 0.57-1.25 zths=027) GLUCOSE RANDOM (BEAKER) 96 mg/dL 70-105 (test agul=016) CALCIUM (BEAKER) (test 8.4 mg/dL 8.4-10.2 angz=710) EGFR (BEAKER) (test 77 mL/min/1.73 sq m ESTIMATED GFR IS NOT jqbb=6895) ACCURATE CREATININE CLEARANCE IN PREDICTING GLOMERULAR FILTRATION RATE. ESTIMATED GFR IS NOT APPLICABLE FOR DIALYSIS PATIENTS. CBC (HEMOGRAM ONLY)2018-02-05 05:30:00 Test Item Value Reference Range Comments WHITE BLOOD CELL COUNT (BEAKER) (test ywwh=048) 6.5 K/ L 3.5-10.5 RED BLOOD CELL COUNT (BEAKER) (test dhvi=139) 3.24 M/ L 4.63-6.08 HEMOGLOBIN (BEAKER) (test fmgk=421) 8.5 GM/DL 13.7-17.5 HEMATOCRIT (BEAKER) (test msin=509) 27.4 % 40.1-51.0 MEAN CORPUSCULAR VOLUME (BEAKER) (test vyri=454) 84.6 fL 79.0-92.2 MEAN CORPUSCULAR HEMOGLOBIN (BEAKER) (test 26.2 pg 25.7-32.2 domu=282) MEAN CORPUSCULAR HEMOGLOBIN CONC (BEAKER) (test 31.0 GM/DL 32.3-36.5 ojaf=620) RED CELL DISTRIBUTION WIDTH (BEAKER) (test 18.4 % 11.6-14.4 pnge=895) PLATELET COUNT (BEAKER) (test ikte=963) 127 K/CU MM 150-450 MEAN PLATELET VOLUME (BEAKER) (test nqwu=758) 9.8 fL 9.4-12.4 NUCLEATED RED BLOOD CELLS (BEAKER) (test 0 /100 WBC 0-0 hwoe=586) HEMOGLOBIN AND [id number] 11:55:00 Test Item Value Reference Range Comments HEMOGLOBIN (BEAKER) (test vqgn=892) 8.4 GM/DL 13.7-17.5 HEMATOCRIT (BEAKER) (test yoon=553) 28.9 % 40.1-51.0 [id number] 04:57:00 Test Item Value Reference Range Comments PHOSPHORUS (BEAKER) (test hrdz=845) 2.5 mg/dL 2.3-4.7 [id number] 04:57:00 Test Item Value Reference Range Comments MAGNESIUM (BEAKER) (test itnz=260) 1.7 mg/dL 1.6-2.6 BASIC METABOLIC [id number] 04:57:00 Test Item Value Reference Range Comments SODIUM (BEAKER) (test 131 meq/L 136-145 ocar=002) POTASSIUM (BEAKER) (test 3.9 meq/L 3.5-5.1 lxaa=217) CHLORIDE (BEAKER) (test 102 meq/L 98-107 gusa=218) CO2 (BEAKER) (test 25 meq/L 22-29 auum=928) BLOOD UREA NITROGEN 9 mg/dL 7-21 (BEAKER) (test wayc=685) CREATININE (BEAKER) (test 0.85 mg/dL 0.57-1.25 loat=798) GLUCOSE RANDOM (BEAKER) 106 mg/dL 70-105 (test hdcd=038) CALCIUM (BEAKER) (test 8.2 mg/dL 8.4-10.2 peki=138) EGFR (BEAKER) (test 88 mL/min/1.73 sq m ESTIMATED GFR IS NOT lacq=4484) ACCURATE CREATININE CLEARANCE IN PREDICTING GLOMERULAR FILTRATION RATE. ESTIMATED GFR IS NOT APPLICABLE FOR DIALYSIS PATIENTS. CBC (HEMOGRAM ONLY)2018-02-04 04:35:00 Test Item Value Reference Range Comments WHITE BLOOD CELL COUNT (BEAKER) (test ccyb=664) 9.4 K/ L 3.5-10.5 RED BLOOD CELL COUNT (BEAKER) (test dhsz=402) 3.15 M/ L 4.63-6.08 HEMOGLOBIN (BEAKER) (test wkla=285) 8.1 GM/DL 13.7-17.5 HEMATOCRIT (BEAKER) (test sdaf=518) 25.5 % 40.1-51.0 MEAN CORPUSCULAR VOLUME (BEAKER) (test qiid=131) 81.0 fL 79.0-92.2 MEAN CORPUSCULAR HEMOGLOBIN (BEAKER) (test 25.7 pg 25.7-32.2 bspg=743) MEAN CORPUSCULAR HEMOGLOBIN CONC (BEAKER) (test 31.8 GM/DL 32.3-36.5 ksqq=658) RED CELL DISTRIBUTION WIDTH (BEAKER) (test 18.2 % 11.6-14.4 vjoy=059) PLATELET COUNT (BEAKER) (test mtng=165) 125 K/CU MM 150-450 MEAN PLATELET VOLUME (BEAKER) (test osbs=641) 10.1 fL 9.4-12.4 NUCLEATED RED BLOOD CELLS (BEAKER) (test 0 /100 WBC 0-0 ltan=094) CBC W/PLT COUNT & AUTO [id number] 15:56:00 Test Item Value Reference Range Comments WHITE BLOOD CELL COUNT (BEAKER) (test fgrv=542) 13.1 K/ L 3.5-10.5 RED BLOOD CELL COUNT (BEAKER) (test jvti=679) 4.01 M/ L 4.63-6.08 HEMOGLOBIN (BEAKER) (test palp=644) 10.2 GM/DL 13.7-17.5 HEMATOCRIT (BEAKER) (test wesa=691) 32.3 % 40.1-51.0 MEAN CORPUSCULAR VOLUME (BEAKER) (test kvrn=504) 80.5 fL 79.0-92.2 MEAN CORPUSCULAR HEMOGLOBIN (BEAKER) (test 25.4 pg 25.7-32.2 kddz=969) MEAN CORPUSCULAR HEMOGLOBIN CONC (BEAKER) (test 31.6 GM/DL 32.3-36.5 sjph=052) RED CELL DISTRIBUTION WIDTH (BEAKER) (test 18.1 % 11.6-14.4 zzqv=891) PLATELET COUNT (BEAKER) (test dtbh=680) 162 K/CU MM 150-450 MEAN PLATELET VOLUME (BEAKER) (test lhoi=332) 10.3 fL 9.4-12.4 NUCLEATED RED BLOOD CELLS (BEAKER) (test 0 /100 WBC 0-0 yqpk=431) NEUTROPHILS RELATIVE PERCENT (BEAKER) (test 86 % pdnj=409) LYMPHOCYTES RELATIVE PERCENT (BEAKER) (test 5 % diif=987) MONOCYTES RELATIVE PERCENT (BEAKER) (test 7 % rgul=521) EOSINOPHILS RELATIVE PERCENT (BEAKER) (test 0 % wloa=065) BASOPHILS RELATIVE PERCENT (BEAKER) (test 0 % wngv=656) NEUTROPHILS ABSOLUTE COUNT (BEAKER) (test 11.26 K/ L 1.78-5.38 rmbi=176) LYMPHOCYTES ABSOLUTE COUNT (BEAKER) (test 0.70 K/ L 1.32-3.57 ctez=643) MONOCYTES ABSOLUTE COUNT (BEAKER) (test 0.95 K/ L 0.30-0.82 pinz=591) EOSINOPHILS ABSOLUTE COUNT (BEAKER) (test 0.00 K/ L 0.04-0.54 yxth=035) BASOPHILS ABSOLUTE COUNT (BEAKER) (test 0.04 K/ L 0.01-0.08 vdtr=913) IMMATURE GRANULOCYTES-RELATIVE PERCENT (BEAKER) 1 % 0-1 (test peir=4278) COMPREHENSIVE METABOLIC [id number] 05:49:00 Test Item Value Reference Range Comments TOTAL PROTEIN (BEAKER) 5.7 gm/dL 6.0-8.3 (test cdfv=929) ALBUMIN (BEAKER) (test 3.3 g/dL 3.5-5.0 qrgc=8903) ALKALINE PHOSPHATASE 133 U/L 40-150 (BEAKER) (test giqc=448) BILIRUBIN TOTAL (BEAKER) 0.8 mg/dL 0.2-1.2 (test zjgd=929) SODIUM (BEAKER) (test 134 meq/L 136-145 wlod=467) POTASSIUM (BEAKER) (test 4.1 meq/L 3.5-5.1 qjca=065) CHLORIDE (BEAKER) (test 106 meq/L 98-107 afjv=000) CO2 (BEAKER) (test 19 meq/L 22-29 zxmo=915) BLOOD UREA NITROGEN 6 mg/dL 7-21 (BEAKER) (test vsza=837) CREATININE (BEAKER) (test 0.88 mg/dL 0.57-1.25 wvsi=973) GLUCOSE RANDOM (BEAKER) 163 mg/dL 70-105 (test wbca=190) CALCIUM (BEAKER) (test 8.3 mg/dL 8.4-10.2 nkch=310) AST (SGOT) (BEAKER) (test 12 U/L 5-34 zpep=819) ALT (SGPT) (BEAKER) (test < U/L 6-55 igjk=128) EGFR (BEAKER) (test 85 mL/min/1.73 sq m ESTIMATED GFR IS NOT ddge=2641) ACCURATE CREATININE CLEARANCE IN PREDICTING GLOMERULAR FILTRATION RATE. ESTIMATED GFR IS NOT APPLICABLE FOR DIALYSIS PATIENTS. [id number] 05:48:00 Test Item Value Reference Range Comments PHOSPHORUS (BEAKER) (test yxec=610) 2.9 mg/dL 2.3-4.7 [id number] 05:48:00 Test Item Value Reference Range Comments MAGNESIUM (BEAKER) (test uahw=084) 1.7 mg/dL 1.6-2.6 CBC W/PLT COUNT & AUTO [id number] 04:20:00 Test Item Value Reference Range Comments WHITE BLOOD CELL COUNT (BEAKER) (test ufwq=964) 15.4 K/ L 3.5-10.5 RED BLOOD CELL COUNT (BEAKER) (test voqb=666) 4.13 M/ L 4.63-6.08 HEMOGLOBIN (BEAKER) (test izxd=922) 10.7 GM/DL 13.7-17.5 HEMATOCRIT (BEAKER) (test cjle=409) 34.3 % 40.1-51.0 MEAN CORPUSCULAR VOLUME (BEAKER) (test mdlq=465) 83.1 fL 79.0-92.2 MEAN CORPUSCULAR HEMOGLOBIN (BEAKER) (test 25.9 pg 25.7-32.2 lsnf=721) MEAN CORPUSCULAR HEMOGLOBIN CONC (BEAKER) (test 31.2 GM/DL 32.3-36.5 bloe=035) RED CELL DISTRIBUTION WIDTH (BEAKER) (test 17.9 % 11.6-14.4 mxha=169) PLATELET COUNT (BEAKER) (test abvh=696) 33 K/CU MM 150-450 MEAN PLATELET VOLUME (BEAKER) (test cssd=222) 10.0 fL 9.4-12.4 NUCLEATED RED BLOOD CELLS (BEAKER) (test 0 /100 WBC 0-0 dxkc=570) NEUTROPHILS RELATIVE PERCENT (BEAKER) (test 91 % dnap=860) LYMPHOCYTES RELATIVE PERCENT (BEAKER) (test 3 % tacw=191) MONOCYTES RELATIVE PERCENT (BEAKER) (test 4 % nnsy=526) EOSINOPHILS RELATIVE PERCENT (BEAKER) (test 0 % hfne=162) BASOPHILS RELATIVE PERCENT (BEAKER) (test 0 % szqn=053) NEUTROPHILS ABSOLUTE COUNT (BEAKER) (test 14.01 K/ L 1.78-5.38 ipor=042) LYMPHOCYTES ABSOLUTE COUNT (BEAKER) (test 0.46 K/ L 1.32-3.57 mygp=194) MONOCYTES ABSOLUTE COUNT (BEAKER) (test gqvz=412) 0.64 K/ L 0.30-0.82 EOSINOPHILS ABSOLUTE COUNT (BEAKER) (test 0.01 K/ L 0.04-0.54 elno=046) BASOPHILS ABSOLUTE COUNT (BEAKER) (test ipmi=855) 0.05 K/ L 0.01-0.08 IMMATURE GRANULOCYTES-RELATIVE PERCENT (BEAKER) 1 % 0-1 (test omqn=7170) VANCOMYCIN LEVEL, [id number] 23:58:00 Test Item Value Reference Range Comments VANCOMYCIN TROUGH (BEAKER) (test qbrf=892) < ug/mL 10.0-20.0 PROTHROMBIN TIME/[id number] 23:27:00 Test Item Value Reference Range Comments PROTIME (BEAKER) (test pjzc=610) 15.6 seconds 11.7-14.7 INR (BEAKER) (test bbce=133) 1.2 <=5.9 RECOMMENDED COUMADIN/WARFARIN INR THERAPY RANGESSTANDARD DOSE: 2.0 - 3.0 Includes: PROPHYLAXIS forvenous thrombosis, systemic embolization; TREATMENT for venous thrombosis and/or pulmonary embolus.HIGH RISK: Target INR is 2.5-3.5 for patients with mechanical heart valves.[id number] 23:27:00 Test Item Value Reference Range Comments FIBRINOGEN LEVEL (BEAKER) (test uifr=179) 276 mg/dl 225-434 [id number] 23:27:00 Test Item Value Reference Range Comments PARTIAL THROMBOPLASTIN TIME (BEAKER) (test 29.8 seconds 22.5-36.0 mbit=009) CBC W/PLT COUNT & AUTO [id number] 23:22:00 Test Item Value Reference Range Comments WHITE BLOOD CELL COUNT (BEAKER) (test uqwo=311) 18.8 K/ L 3.5-10.5 RED BLOOD CELL COUNT (BEAKER) (test jmdk=672) 4.49 M/ L 4.63-6.08 HEMOGLOBIN (BEAKER) (test lgmg=214) 11.3 GM/DL 13.7-17.5 HEMATOCRIT (BEAKER) (test ndxu=681) 37.7 % 40.1-51.0 MEAN CORPUSCULAR VOLUME (BEAKER) (test qrxw=087) 84.0 fL 79.0-92.2 MEAN CORPUSCULAR HEMOGLOBIN (BEAKER) (test 25.2 pg 25.7-32.2 bsch=701) MEAN CORPUSCULAR HEMOGLOBIN CONC (BEAKER) (test 30.0 GM/DL 32.3-36.5 oyhp=113) RED CELL DISTRIBUTION WIDTH (BEAKER) (test 17.5 % 11.6-14.4 kgfq=907) PLATELET COUNT (BEAKER) (test bdwo=302) 196 K/CU MM 150-450 MEAN PLATELET VOLUME (BEAKER) (test dkkb=220) 10.0 fL 9.4-12.4 NUCLEATED RED BLOOD CELLS (BEAKER) (test 0 /100 WBC 0-0 xqfh=539) NEUTROPHILS RELATIVE PERCENT (BEAKER) (test 89 % hrdv=457) LYMPHOCYTES RELATIVE PERCENT (BEAKER) (test 3 % fysa=643) MONOCYTES RELATIVE PERCENT (BEAKER) (test 6 % ydch=532) EOSINOPHILS RELATIVE PERCENT (BEAKER) (test 0 % nmhd=334) BASOPHILS RELATIVE PERCENT (BEAKER) (test 0 % rzsh=538) NEUTROPHILS ABSOLUTE COUNT (BEAKER) (test 16.79 K/ L 1.78-5.38 wxih=313) LYMPHOCYTES ABSOLUTE COUNT (BEAKER) (test 0.60 K/ L 1.32-3.57 zemp=028) MONOCYTES ABSOLUTE COUNT (BEAKER) (test 1.17 K/ L 0.30-0.82 weom=588) EOSINOPHILS ABSOLUTE COUNT (BEAKER) (test 0.02 K/ L 0.04-0.54 kdwo=472) BASOPHILS ABSOLUTE COUNT (BEAKER) (test 0.04 K/ L 0.01-0.08 macs=968) IMMATURE GRANULOCYTES-RELATIVE PERCENT (BEAKER) 1 % 0-1 (test focq=2776) [id number] 23:21:00 Test Item Value Reference Range Comments PHOSPHORUS (BEAKER) (test fpkr=898) 3.1 mg/dL 2.3-4.7 [id number] 23:21:00 Test Item Value Reference Range Comments MAGNESIUM (BEAKER) (test mfmo=486) 1.7 mg/dL 1.6-2.6 BASIC METABOLIC [id number] 23:21:00 Test Item Value Reference Range Comments SODIUM (BEAKER) (test 133 meq/L 136-145 vxys=755) POTASSIUM (BEAKER) (test 4.2 meq/L 3.5-5.1 ksmb=809) CHLORIDE (BEAKER) (test 105 meq/L 98-107 twsx=940) CO2 (BEAKER) (test 17 meq/L 22-29 jyhw=785) BLOOD UREA NITROGEN 7 mg/dL 7-21 (BEAKER) (test hhqj=021) CREATININE (BEAKER) (test 0.99 mg/dL 0.57-1.25 zsmu=968) GLUCOSE RANDOM (BEAKER) 155 mg/dL 70-105 (test tvxj=157) CALCIUM (BEAKER) (test 8.3 mg/dL 8.4-10.2 zzsu=932) EGFR (BEAKER) (test 74 mL/min/1.73 sq m ESTIMATED GFR IS NOT ksod=3175) ACCURATE CREATININE CLEARANCE IN PREDICTING GLOMERULAR FILTRATION RATE. ESTIMATED GFR IS NOT APPLICABLE FOR DIALYSIS PATIENTS. HEPATIC FUNCTION [id number] 23:21:00 Test Item Value Reference Range Comments TOTAL PROTEIN (BEAKER) (test ythk=214) 5.8 gm/dL 6.0-8.3 ALBUMIN (BEAKER) (test ppjw=3318) 3.5 g/dL 3.5-5.0 BILIRUBIN TOTAL (BEAKER) (test bzrt=495) 1.5 mg/dL 0.2-1.2 BILIRUBIN DIRECT (BEAKER) (test zajy=251) 0.8 mg/dL 0.1-0.5 ALKALINE PHOSPHATASE (BEAKER) (test ubjo=828) 142 U/L 40-150 AST (SGOT) (BEAKER) (test wafk=101) 12 U/L 5-34 ALT (SGPT) (BEAKER) (test havj=832) 7 U/L 6-55 LACTIC ACID, ARTERIAL, WHOLE [id number] 23:15:00 Test Item Value Reference Range Comments LACTATE BLOOD ARTERIAL (2) (BEAKER) (test 1.7 mmol/L 0.5-2.2 bvwi=3653) Effective 12/12/2015: Units/Reference Range ChangeNew: 0.5-2.2 mmol/L Previous: 5 -20 mg/dLRAD, CHEST, 1 VIEW, NON [id number] 23:12:00Reason for exam:->s/ p cardiac surgeryShould this [...] MDReport Verified Date/Time: 02/02/2018 23:12:37 Reading Location: [facility] B1 [id number] Consult Reading Room Electronicallysigned by: DENZEL LANGLEY MD on 02/02/2018 11:12 PMHEMOGLOBIN AND [id number] 23:06:00 Test Item Value Reference Range Comments HEMOGLOBIN (BEAKER) (test hvis=192) 11.3 GM/DL 13.7-17.5 HEMATOCRIT (BEAKER) (test cefj=946) 37.7 % 40.1-51.0 CALCIUM, [id number] 22:57:00 Test Item Value Reference Range Comments CALCIUM IONIZED (BEAKER) (test ozfx=287) 1.02 mmol/L 1.12-1.27 PH, BLOOD (BEAKER) (test jdck=9394) 7.38 OXYGEN SATURATION, [id number] 22:56:00 Test Item Value Reference Range Comments O2 SATURATION (MEASURED) (BEAKER) (test mawt=8551) 72.2 % PROTHROMBIN [id number] 19:20:00 Test Item Value Reference Range Comments PROTIME (BEAKER) (test exwy=806) 17.6 seconds 11.7-14.7 INR (BEAKER) (test zfcy=247) 1.5 <=5.9 RECOMMENDED COUMADIN/WARFARIN INR THERAPY RANGESSTANDARD DOSE: 2.0 - 3.0 Includes: PROPHYLAXIS forvenous thrombosis, systemic embolization; TREATMENT for venous thrombosis and/or pulmonary embolus.HIGH RISK: Target INR is 2.5-3.5 for patients with mechanical heart valves.[id number] 19:20:00 Test Item Value Reference Range Comments FIBRINOGEN LEVEL (BEAKER) (test hhci=485) 240 mg/dl 225-434 [id number] 19:20:00 Test Item Value Reference Range Comments PARTIAL THROMBOPLASTIN TIME (BEAKER) (test 33.3 seconds 22.5-36.0 fpma=894) PLATELET [id number] 19:00:00 Test Item Value Reference Range Comments PLATELET COUNT (BEAKER) (test rlpe=872) 149 K/CU MM 150-450 POTASSIUM-STAT [id number] 18:54:00 Test Item Value Reference Range Comments POTASSIUM (BEAKER) (test vhim=728) 4.2 meq/L 3.6-5.5 HEMOGLOBIN-STAT [id number] 18:54:00 Test Item Value Reference Range Comments HEMOGLOBIN (BEAKER) (test ovvl=429) 9.9 g/dL 13.0-16.8 HEMATOCRIT-STAT [id number] 18:54:00 Test Item Value Reference Range Comments HEMATOCRIT (BEAKER) (test bgjh=107) 29.0 % 40.0-50.0 BLOOD GAS, [id number] 18:54:00 Test Item Value Reference Range Comments PH ARTERIAL (BEAKER) (test pdzr=680) 7.37 7.35-7.45 PCO2 ARTERIAL (BEAKER) (test hdgf=891) 39 mmHg 35-45 PO2 ARTERIAL (BEAKER) (test qgxr=075) 229 mmHg 80-90 O2 SATURATION ARTERIAL (BEAKER) (test lqoo=783) 99.5 % 96.0-97.0 HCO3 ARTERIAL (BEAKER) (test klwu=056) 22 mmol/L 21-29 BASE EXCESS ARTERIAL (BEAKER) (test izjw=595) -3.4 mmol/L -2.0-3.0 PATIENT TEMPERATURE (BEAKER) (test yqtz=6411) 37.0 C SODIUM NA-STAT [id number] 18:54:00 Test Item Value Reference Range Comments SODIUM (BEAKER) (test jrxd=601) 133 meq/L 135-148 GLUCOSE-STAT [id number] 18:54:00 Test Item Value Reference Range Comments GLUCOSE RANDOM (BEAKER) (test kvbl=610) 134 mg/dL 70-110 HGB/HCT (H&H) - STAT [id number] 18:54:00 Test Item Value Reference Range Comments HEMOGLOBIN (BEAKER) (test qseq=513) 9.9 GM/DL 13.0-16.8 HEMATOCRIT (BEAKER) (test fvnf=576) 29.0 % 40.0-50.0 CALCIUM, [id number] 18:54:00 Test Item Value Reference Range Comments CALCIUM IONIZED (BEAKER) (test nvut=329) 1.03 mmol/L 1.12-1.27 PH, BLOOD (BEAKER) (test sujg=5207) 7.37 CALCIUM, [id number] 18:13:00 Test Item Value Reference Range Comments CALCIUM IONIZED (BEAKER) (test yvgg=365) 1.02 mmol/L 1.12-1.27 PH, BLOOD (BEAKER) (test nsma=0173) 7.36 [id number] 17:42:00 Test Item Value Reference Range Comments ACTIVATED CLOTTING TIME 279 sec TESTED AT [place] [address] [address] (BEAKER) (test ixrj=755) [place] [address] [id number] 17:42:00 Test Item Value Reference Range Comments ACTIVATED CLOTTING TIME 224 sec TESTED AT [place] [address] [address] (BEAKER) (test zixb=952) [place] [address] [id number] 17:42:00 Test Item Value Reference Range Comments ACTIVATED CLOTTING TIME 158 sec TESTED AT [place] [address] [facility] (test itub=833) [place] [address] HGB/HCT (H&H) - STAT [id number] 16:30:00 Test Item Value Reference Range Comments HEMOGLOBIN (BEAKER) (test euvu=502) 9.9 GM/DL 13.0-16.8 HEMATOCRIT (BEAKER) (test haqo=923) 29.0 % 40.0-50.0 POTASSIUM-STAT [id number] 16:30:00 Test Item Value Reference Range Comments POTASSIUM (BEAKER) (test kpcx=232) 3.7 meq/L 3.6-5.5 SODIUM NA-STAT [id number] 16:30:00 Test Item Value Reference Range Comments SODIUM (BEAKER) (test bmkm=848) 134 meq/L 135-148 GLUCOSE-STAT [id number] 16:30:00 Test Item Value Reference Range Comments GLUCOSE RANDOM (BEAKER) (test jtut=309) 105 mg/dL 70-110 [id number] 16:17:00 Test Item Value Reference Range Comments ACTIVATED CLOTTING TIME 301 sec TESTED AT [place] [address] [address] (BEAKER) (test ybol=882) [place] [address] BLOOD GAS, [id number] 16:16:00 Test Item Value Reference Range Comments PH ARTERIAL (BEAKER) (test ofpe=388) 7.42 7.35-7.45 PCO2 ARTERIAL (BEAKER) (test jxpu=961) 40 mmHg 35-45 PO2 ARTERIAL (BEAKER) (test qjca=411) 205 mmHg 80-90 O2 SATURATION ARTERIAL (BEAKER) (test uiex=144) 99.4 % 96.0-97.0 HCO3 ARTERIAL (BEAKER) (test odnl=972) 25 mmol/L 21-29 BASE EXCESS ARTERIAL (BEAKER) (test yllt=682) 0.8 mmol/L -2.0-3.0 PATIENT TEMPERATURE (BEAKER) (test zvxz=2423) 37.0 C CALCIUM, [id number] 16:11:00 Test Item Value Reference Range Comments CALCIUM IONIZED (BEAKER) (test iqek=873) 1.09 mmol/L 1.12-1.27 PH, BLOOD (BEAKER) (test yils=5483) 7.42 MR, MRA, EXTREMITY, LOWER, WITHOUT FOLLOW, WITH [id number] 17:43: 00Bilateral extremitiesNando Hdz MD [facility] FACSAINT FRANCIS [facility]IAL HOSPITALMukesh Hdz MD [facility] FACP [facility] at [facility] Lye Treater of PVD Services at [facility]/PIOTRCharlton Memorial Hospital [facility] at [address] [place], [place] [email or web address] MRA of the lower [...] reconstruction was performed by an independent workstation ([employer]). Please refer to the contrast sheetscanned in [...] CT scan. The proximal abdominal aorta is [place]. The celiac axis, SMA are patent with [...] coil embolisation procedure as per EPIC. The [place] left external iliac artery and the left [...] centimeters of the left SFA could be [place]. However, there is likely a left femoral [...] posterior tibial artery. In the right, the [place] right SFA is seen to be occluded. [...] though thereafter, it is occluded. 4. The [place] left SFA is likely occluded and a left femoral to distal popliteal bypass graft is identified that is patent with no proximal or distal anastomotic stenosis. Essentially three-vessel runoff is seen in the left lower extremity. 5. In the right, the [place] right SFA is occluded. It appears patient [...] MDReport Verified Date/Time: 01/28/2018 17:43:09 Reading Location: [place] [address] Cardiology MRI [facility] METABOLIC [id number] 07 :36:00 Test Item Value Reference Range Comments SODIUM (BEAKER) (test 135 meq/L 136-145 abxm=922) POTASSIUM (BEAKER) (test 4.3 meq/L 3.5-5.1 mvyn=021) CHLORIDE (BEAKER) (test 103 meq/L 98-107 kfnx=249) CO2 (BEAKER) (test 25 meq/L 22-29 bmnj=318) BLOOD UREA NITROGEN 8 mg/dL 7-21 (BEAKER) (test cigi=782) CREATININE (BEAKER) (test 1.09 mg/dL 0.57-1.25 bcoh=451) GLUCOSE RANDOM (BEAKER) 92 mg/dL 70-105 (test nfxt=498) CALCIUM (BEAKER) (test 8.6 mg/dL 8.4-10.2 qmst=015) EGFR (BEAKER) (test 66 mL/min/1.73 sq m ESTIMATED GFR IS NOT jnxr=8976) ACCURATE CREATININE CLEARANCE IN PREDICTING GLOMERULAR FILTRATION RATE. ESTIMATED GFR IS NOT APPLICABLE FOR DIALYSIS PATIENTS. CBC (HEMOGRAM ONLY)2018-01-28 07:17:00 Test Item Value Reference Range Comments WHITE BLOOD CELL COUNT (BEAKER) (test zflh=610) 5.4 K/ L 3.5-10.5 RED BLOOD CELL COUNT (BEAKER) (test tcad=598) 3.83 M/ L 4.63-6.08 HEMOGLOBIN (BEAKER) (test znhz=887) 9.6 GM/DL 13.7-17.5 HEMATOCRIT (BEAKER) (test eapd=719) 31.1 % 40.1-51.0 MEAN CORPUSCULAR VOLUME (BEAKER) (test zrjr=902) 81.2 fL 79.0-92.2 MEAN CORPUSCULAR HEMOGLOBIN (BEAKER) (test 25.1 pg 25.7-32.2 kzqh=008) MEAN CORPUSCULAR HEMOGLOBIN CONC (BEAKER) (test 30.9 GM/DL 32.3-36.5 uqtg=368) RED CELL DISTRIBUTION WIDTH (BEAKER) (test 18.7 % 11.6-14.4 yvpc=575) PLATELET COUNT (BEAKER) (test osnh=493) 167 K/CU MM 150-450 MEAN PLATELET VOLUME (BEAKER) (test jpkd=828) 9.4 fL 9.4-12.4 NUCLEATED RED BLOOD CELLS (BEAKER) (test 0 /100 WBC 0-0 xduq=521) PROTHROMBIN [id number] 14:15:00 Test Item Value Reference Range Comments PROTIME (BEAKER) (test izwa=389) 14.8 seconds 11.7-14.7 INR (BEAKER) (test jeja=676) 1.2 <=5.9 RECOMMENDED COUMADIN/WARFARIN INR THERAPY RANGESSTANDARD DOSE: 2.0 - 3.0 Includes: PROPHYLAXIS forvenous thrombosis, systemic embolization; TREATMENT for venous thrombosis and/or pulmonary embolus.HIGH RISK: Target INR is 2.5-3.5 for patients with mechanical heart valves.Within 24 hours, if on CoumadinBASIC METABOLIC [id number] 06:41:00 Test Item Value Reference Range Comments SODIUM (BEAKER) (test 131 meq/L 136-145 tcde=239) POTASSIUM (BEAKER) (test 3.8 meq/L 3.5-5.1 tycm=082) CHLORIDE (BEAKER) (test 96 meq/L 98-107 gsld=755) CO2 (BEAKER) (test 28 meq/L 22-29 vpfq=507) BLOOD UREA NITROGEN 9 mg/dL 7-21 (BEAKER) (test nuqc=635) CREATININE (BEAKER) (test 0.95 mg/dL 0.57-1.25 kkih=038) GLUCOSE RANDOM (BEAKER) 110 mg/dL 70-105 (test edce=991) CALCIUM (BEAKER) (test 8.4 mg/dL 8.4-10.2 ueyd=031) EGFR (BEAKER) (test 77 mL/min/1.73 sq m ESTIMATED GFR IS NOT yocv=9846) ACCURATE CREATININE CLEARANCE IN PREDICTING GLOMERULAR FILTRATION RATE. ESTIMATED GFR IS NOT APPLICABLE FOR DIALYSIS PATIENTS. CBC (HEMOGRAM ONLY)2017-12-10 05:53:00 Test Item Value Reference Range Comments WHITE BLOOD CELL COUNT (BEAKER) (test rbtb=887) 8.3 K/ L 3.5-10.5 RED BLOOD CELL COUNT (BEAKER) (test mlmc=801) 3.40 M/ L 4.63-6.08 HEMOGLOBIN (BEAKER) (test odyc=268) 8.3 GM/DL 13.7-17.5 HEMATOCRIT (BEAKER) (test hafd=827) 27.9 % 40.1-51.0 MEAN CORPUSCULAR VOLUME (BEAKER) (test cbyl=655) 82.1 fL 79.0-92.2 MEAN CORPUSCULAR HEMOGLOBIN (BEAKER) (test 24.4 pg 25.7-32.2 tebc=621) MEAN CORPUSCULAR HEMOGLOBIN CONC (BEAKER) (test 29.7 GM/DL 32.3-36.5 fflb=447) RED CELL DISTRIBUTION WIDTH (BEAKER) (test 20.0 % 11.6-14.4 kzgg=675) PLATELET COUNT (BEAKER) (test voxw=264) 276 K/CU MM 150-450 MEAN PLATELET VOLUME (BEAKER) (test ozzx=914) 10.2 fL 9.4-12.4 NUCLEATED RED BLOOD CELLS (BEAKER) (test 0 /100 WBC 0-0 nslh=861) BLOOD GAS, [id number] 10:39:00 Test Item Value Reference Range Comments PH ARTERIAL (BEAKER) (test wohk=798) 7.33 7.35-7.45 PCO2 ARTERIAL (BEAKER) (test uwtd=312) 48 mmHg 35-45 PO2 ARTERIAL (BEAKER) (test ckfc=399) 198 mmHg 80-90 O2 SATURATION ARTERIAL (BEAKER) (test zgnw=495) 99.3 % 96.0-97.0 HCO3 ARTERIAL (BEAKER) (test opju=402) 25 mmol/L 21-29 BASE EXCESS ARTERIAL (BEAKER) (test abai=785) -1.5 mmol/L -2.0-3.0 PATIENT TEMPERATURE (BEAKER) (test pdsn=6690) 36.2 C FIO2 (BEAKER) (test esbe=5396) 46.0 % SODIUM NA-STAT [id number] 10:39:00 Test Item Value Reference Range Comments SODIUM (BEAKER) (test nfaz=716) 131 meq/L 135-148 POTASSIUM-STAT [id number] 10:39:00 Test Item Value Reference Range Comments POTASSIUM (BEAKER) (test kdzc=923) 3.1 meq/L 3.6-5.5 GLUCOSE-STAT [id number] 10:39:00 Test Item Value Reference Range Comments GLUCOSE RANDOM (BEAKER) (test awvn=074) 121 mg/dL 70-110 HGB/HCT (H&H) - STAT [id number] 10:39:00 Test Item Value Reference Range Comments HEMOGLOBIN (BEAKER) (test zczp=716) 8.1 g/dL 13.0-16.8 HEMATOCRIT (BEAKER) (test ofxu=213) 24.0 % 40.0-50.0 [id number] 10:10:00 Test Item Value Reference Range Comments ACTIVATED CLOTTING TIME 224 sec TESTED AT [facility] [address] (BEAKER) (test qohl=515) [place] [address] CBC (HEMOGRAM ONLY)2017-12-05 06:51:00 Test Item Value Reference Range Comments WHITE BLOOD CELL COUNT (BEAKER) (test vzhv=536) 6.4 K/ L 3.5-10.5 RED BLOOD CELL COUNT (BEAKER) (test akdt=005) 3.63 M/ L 4.63-6.08 HEMOGLOBIN (BEAKER) (test ldsa=802) 9.0 GM/DL 13.7-17.5 HEMATOCRIT (BEAKER) (test ceck=339) 30.4 % 40.1-51.0 MEAN CORPUSCULAR VOLUME (BEAKER) (test oliz=922) 83.7 fL 79.0-92.2 MEAN CORPUSCULAR HEMOGLOBIN (BEAKER) (test 24.8 pg 25.7-32.2 lwvq=889) MEAN CORPUSCULAR HEMOGLOBIN CONC (BEAKER) (test 29.6 GM/DL 32.3-36.5 jjst=445) RED CELL DISTRIBUTION WIDTH (BEAKER) (test 20.3 % 11.6-14.4 hmyb=593) PLATELET COUNT (BEAKER) (test uped=676) 275 K/CU MM 150-450 MEAN PLATELET VOLUME (BEAKER) (test ajpv=139) 9.8 fL 9.4-12.4 NUCLEATED RED BLOOD CELLS (BEAKER) (test 0 /100 WBC 0-0 npdn=710) BASIC METABOLIC [id number] 06:44:00 Test Item Value Reference Range Comments SODIUM (BEAKER) (test 134 meq/L 136-145 khcp=791) POTASSIUM (BEAKER) (test 4.1 meq/L 3.5-5.1 bmhv=402) CHLORIDE (BEAKER) (test 102 meq/L 98-107 kwlg=206) CO2 (BEAKER) (test 24 meq/L 22-29 jhrp=530) BLOOD UREA NITROGEN 9 mg/dL 7-21 (BEAKER) (test bfxt=786) CREATININE (BEAKER) (test 1.01 mg/dL 0.57-1.25 mpob=586) GLUCOSE RANDOM (BEAKER) 93 mg/dL 70-105 (test cwas=103) CALCIUM (BEAKER) (test 8.7 mg/dL 8.4-10.2 kbmh=599) EGFR ([facility]) (test 72 mL/min/1.73 sq m ESTIMATED GFR IS NOT slls=9036) ACCURATE CREATININE CLEARANCE IN PREDICTING GLOMERULAR FILTRATION RATE. ESTIMATED GFR IS NOT APPLICABLE FOR DIALYSIS PATIENTS. [id number] 12:39:00 Test Item Value Reference Range Comments ACTIVATED CLOTTING TIME 136 sec TESTED AT [address] ([facility]) (test xtcs=610) [place] [address] [id number] 11:51:00 Test Item Value Reference Range Comments ACTIVATED CLOTTING TIME 147 sec TESTED AT [address] ([facility]) (test gmcc=610) [place] [address] [id number] 09:21:00 Test Item Value Reference Range Comments ACTIVATED CLOTTING TIME 213 sec TESTED AT [address] ([facility]) (test lokj=368) [place] [address] [id number] 08:58:00 Test Item Value Reference Range Comments ACTIVATED CLOTTING TIME 191 sec TESTED AT [address] ([facility]) (test olif=875) [place] [address] [address], CTA [id number] 11:56:00Addendum BeginsREPORT STATUS:A Addendum: The images were reviewed with Dr. Hdz. 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 Arch vessel branching pattern is [...] 8.2 mm, respectively with mild tortuosity and qcmt-wo-juxjuqyf calcific atherosclerosis present. Right iliac limb is [...] dictated, however, the ordering physician is the METEOROLOGIST [employer] of [facility] and therefore no recommendation would be [...] An addendum will be dictated by the Hemmer [employer] Radiologist regarding the nonvascular findings. Signed: Juwan Echols Verified Date/Time: 11/26/2017 16:25:25 Reading Location: [place] [address] Cardiology MRI Electronically signed by: JUWAN ECHOLS M.D. on 2017 11:56 AMCT, CTA, [id number] 11:56:00Addendum BeginsREPORT STATUS:A Addendum: The images were reviewed with Dr. Hdz. There is a missing dictation, specifically, despite the aortic bypass surgery the [place] left common iliac artery is still patent with retrograde filling from the left external iliac artery, with aneurysmal dilation identified. Image 466, it measures approximately 4.3 x 4.2 cm in diameter. Some intraluminal thrombus is seen. This is the left common iliac artery. The left internal iliac artery is also patent, with calcification present. Signed: Juwan Echols Verified Date/Time: 11/27/2017 11:56:33 Reading Location: [place] [address] Cardiology MRIAddendum EndsAddendum BeginsREPORT STATUS:A ADDENDUM: Study [...] , PET-CT, or biopsy. Signed: Adryan Barrow Verified Date/Time: 18:03:42 Reading Location: [place] [address] Angio Body Reading RoomAddendum EndsFINAL REPORT CT [...] takeoff of the left renal artery with twui-qo-fjhnbpmk stenosis identified. Arch vessel branching pattern is [...] 8.2 mm, respectively with mild tortuosity and xsnz-oe-qgwupkpd calcific atherosclerosis present. Right iliac limb is [...] dictated, however, the ordering physician is the METEOROLOGIST [employer] of [facility] and therefore no recommendation would be [...] An addendum will be dictated by the [employer]mer [employer] Radiologist regarding the nonvascular findings. Signed: Juwan Echols MDReport Verified Date/Time: 11/26/2017 16:25:25 Reading Location: [place] [address] Cardiology MRI Electronically signed by: JUWAN ECHOLS M.D. on 2017 11:56 AMB-TYPE NATRIURETIC FACTOR (BNP)2017-11-26 18:03:00 Test Item Value Reference Range Comments B-TYPE NATRIURETIC PEPTIDE (BEAKER) (test 142 pg/mL 0-100 lrup=668) COMPREHENSIVE METABOLIC [id number] 17:56:00 Test Item Value Reference Range Comments TOTAL PROTEIN (BEAKER) 6.8 gm/dL 6.0-8.3 (test kuur=839) ALBUMIN (BEAKER) (test 3.9 g/dL 3.5-5.0 melp=3895) ALKALINE PHOSPHATASE 133 U/L 40-150 (BEAKER) (test ebqh=446) BILIRUBIN TOTAL (BEAKER) 0.4 mg/dL 0.2-1.2 (test lghk=634) SODIUM (BEAKER) (test 135 meq/L 136-145 mvrm=412) POTASSIUM (BEAKER) (test 4.3 meq/L 3.5-5.1 nwuk=003) CHLORIDE (BEAKER) (test 99 meq/L 98-107 ckpj=257) CO2 (BEAKER) (test 26 meq/L 22-29 vyzb=877) BLOOD UREA NITROGEN 6 mg/dL 7-21 (BEAKER) (test bjja=181) CREATININE (BEAKER) (test 1.14 mg/dL 0.57-1.25 ufta=601) GLUCOSE RANDOM (BEAKER) 104 mg/dL 70-105 (test pzbj=992) CALCIUM (BEAKER) (test 8.9 mg/dL 8.4-10.2 iajz=789) AST (SGOT) (BEAKER) (test 12 U/L 5-34 qmnk=597) ALT (SGPT) (BEAKER) (test 7 U/L 6-55 uhyt=766) EGFR (BEAKER) (test 63 mL/min/1.73 sq m ESTIMATED GFR IS NOT nuqz=0945) ACCURATE CREATININE CLEARANCE IN PREDICTING GLOMERULAR FILTRATION RATE. ESTIMATED GFR IS NOT APPLICABLE FOR DIALYSIS PATIENTS. PROTHROMBIN [id number] 17:33:00 Test Item Value Reference Range Comments PROTIME (BEAKER) (test wzmw=425) 16.5 seconds 11.7-14.7 INR (BEAKER) (test amyq=321) 1.3 <=5.9 RECOMMENDED COUMADIN/WARFARIN INR THERAPY RANGESSTANDARD DOSE: 2.0 - 3.0 Includes: PROPHYLAXIS forvenous thrombosis, systemic embolization; TREATMENT for venous thrombosis and/or pulmonary embolus.HIGH RISK: Target INR is 2.5-3.5 for patients with mechanical heart valves.CBC W/PLT COUNT & AUTO [id number] 17:24:00 Test Item Value Reference Range Comments WHITE BLOOD CELL COUNT (BEAKER) (test ggrd=830) 7.7 K/ L 3.5-10.5 RED BLOOD CELL COUNT (BEAKER) (test ylzy=922) 3.66 M/ L 4.63-6.08 HEMOGLOBIN (BEAKER) (test qdjr=978) 9.1 GM/DL 13.7-17.5 HEMATOCRIT (BEAKER) (test wzji=809) 31.7 % 40.1-51.0 MEAN CORPUSCULAR VOLUME (BEAKER) (test nlky=584) 86.6 fL 79.0-92.2 MEAN CORPUSCULAR HEMOGLOBIN (BEAKER) (test 24.9 pg 25.7-32.2 kbuk=072) MEAN CORPUSCULAR HEMOGLOBIN CONC (BEAKER) (test 28.7 GM/DL 32.3-36.5 wpvx=321) RED CELL DISTRIBUTION WIDTH (BEAKER) (test 19.5 % 11.6-14.4 qjod=717) PLATELET COUNT (BEAKER) (test ixax=561) 243 K/CU MM 150-450 MEAN PLATELET VOLUME (BEAKER) (test yisi=491) 10.0 fL 9.4-12.4 NUCLEATED RED BLOOD CELLS (BEAKER) (test 0 /100 WBC 0-0 sfpl=960) NEUTROPHILS RELATIVE PERCENT (BEAKER) (test 73 % ppdg=935) LYMPHOCYTES RELATIVE PERCENT (BEAKER) (test 13 % gytb=484) MONOCYTES RELATIVE PERCENT (BEAKER) (test 9 % nqxf=646) EOSINOPHILS RELATIVE PERCENT (BEAKER) (test 4 % deom=245) BASOPHILS RELATIVE PERCENT (BEAKER) (test 1 % sexk=293) NEUTROPHILS ABSOLUTE COUNT (BEAKER) (test 5.64 K/ L 1.78-5.38 uszz=090) LYMPHOCYTES ABSOLUTE COUNT (BEAKER) (test 0.98 K/ L 1.32-3.57 yakc=594) MONOCYTES ABSOLUTE COUNT (BEAKER) (test 0.69 K/ L 0.30-0.82 kukg=865) EOSINOPHILS ABSOLUTE COUNT (BEAKER) (test 0.30 K/ L 0.04-0.54 mrth=488) BASOPHILS ABSOLUTE COUNT (BEAKER) (test 0.05 K/ L 0.01-0.08 fzgz=192) IMMATURE GRANULOCYTES-RELATIVE PERCENT (BEAKER) 0 % 0-1 (test jeod=6346) [id number] 12:34:00 Test Item Value Reference Range Comments POC-CREATININE (BEAKER) 1.1 mg/dL 0.6-1.3 TESTED AT [facility] [address] [facility] (test esvj=5671) [facility] [address] POC-EGFR (BEAKER) (test 65 mL/min/1.73M2 mcjs=2275)
--- OUTSIDE RECORDS SUMMARY | 2018-07-08 05:44 | XMS REPORT ---
:1945 Author Organization eClinicalWorks Care Team Providers Name Role Phone [facility] Provider Role Unavailable Allergies No Known Allergies Problems Problem Type Condition Code Onset Dates Condition Status Assessment Need for home health care Z74.2 Active Assessment Health correction, active care Z78.9 Active coordination Assessment Gastrointestinal [...] Status Dosage System Date Date ProAir HFA [facility] 94743939127 108 (90 Base) Active 2 puffs as MCG/ACT needed Inhalation every 6 hrs Prilosec [facility] 17571015966 20 MG Orally Active 1 capsule Once a day Lipitor [facility] 87131671215 10 MG Orally Active 1 tablet Once a day Vitamin D3 [facility] 93087696796 400 UNIT Orally Active 2 tablets Once a day Aspir-81 [facility] 83765735807 81 MG Orally Active 1 tablet Once a day Topamax [facility] 08783103787 25 MG Orally Active 1 tablet Once a day Breo Ellipta [facility] 03861640995 200-25 MCG/INH Active 1 puff Inhalation Once a day Lisinopril [facility] 54797020729 40 MG Orally Active 1 tablet Once a day Warfarin Sodium [facility] 12225629876 7.5 MG Orally Active 1 tablet Once a day Clonidine HCl [facility] 49744485888 0.1 MG Orally Active 1 tablet Twice a day at bedtime Amitriptyline HCl [facility] 04194650716 50 MG Orally Active 1 tablet Once a day Zanaflex [facility] 44749258477 4 MG Orally Active 1 tablet Three times a as needed day Primidone [facility] 14280575923 250 MG Orally Active 1 tablet Three times a day Norvasc [facility] 61869159296 5 MG Orally Active 1 tablet Once a day Results No Known Results Summary Purpose eClinicalWorks Submission
--- OUTSIDE RECORDS SUMMARY | 2018-07-08 05:45 | XMS REPORT ---
[...] Status Dosage System Date Date Amitriptyline HCl [facility] 79025567044 50 MG Orally Active 1 tablet Once a day Results No Known Results Summary Purpose eClinicalWorks Submission
--- OUTSIDE RECORDS SUMMARY | 2018-07-08 05:45 | XMS REPORT ---
[...] Status Dosage System Date Date Amitriptyline HCl [facility] 10674850361 50 MG Orally Active 1 tablet Once a day Clonidine HCl [facility] 35368309520 0.1 MG Orally Active 1 tablet Twice a day at bedtime Aspir-81 [facility] 80959117189 81 MG Orally Active 1 tablet Once a day Topamax [facility] 79989534356 25 MG Orally Active 1 tablet Once a day Plavix [facility] 69741933916 75 MG Orally Active 1 tablet Once a day Lisinopril [facility] 75242650268 40 MG Orally Active 1 tablet Once a day ProAir HFA [facility] 51190091944 108 (90 Base) Active 2 puffs as MCG/ACT needed Inhalation every 6 hrs Lasix [facility] 09586791738 40 MG Orally Active 1 tablet Once a day Prilosec [facility] 15808235008 20 MG Orally Active 1 capsule Once a day Breo Ellipta [facility] 56914767061 200-25 MCG/INH Active 1 puff Inhalation Once a day Warfarin Sodium [facility] 73365838450 7.5 MG Orally Active 1 tablet Once a day Zanaflex [facility] 87161119612 4 MG Orally Active 1 tablet Three times a as needed day Primidone [facility] 83357157039 250 MG Orally Active 1 tablet Three times a day Lipitor [facility] 00773040751 10 MG Orally Active 1 tablet Once a day Norvasc [facility] 03915256779 5 MG Orally Active 1 tablet Once a day Vitamin D3 [facility] 70127232914 400 UNIT Orally Active 2 tablets Once a day Results No Known Results Summary Purpose eClinicalWorks Submission
--- OUTSIDE RECORDS SUMMARY | 2018-07-08 05:45 | XMS REPORT ---
[...] Start Date End Date Status Dosage Lisinopril [facility] 02687354731 40 MG Orally Once Active 1 tablet a day Results No Known Results Summary Purpose eClinicalWorks Submission
--- OUTSIDE RECORDS SUMMARY | 2018-07-08 05:45 | XMS REPORT ---
[...] Start Date End Date Status Dosage Lisinopril [facility] 08553537229 40 MG Orally Once Active 1 tablet a day Results No Known Results Summary Purpose eClinicalWorks Submission
--- OUTSIDE RECORDS SUMMARY | 2018-07-08 05:45 | XMS REPORT ---
[...] Start Date End Date Status Dosage Lipitor [facility] 20790369401 10 MG Orally Once Active 1 tablet a day Results No Known Results Summary Purpose eClinicalWorks Submission
--- OUTSIDE RECORDS SUMMARY | 2018-07-08 05:45 | XMS REPORT ---
[...] Status Dosage System Date Date Amitriptyline HCl [facility] 35231641709 50 MG Orally Active 1 tablet Once a day Results No Known Results Summary Purpose eClinicalWorks Submission
--- OUTSIDE RECORDS SUMMARY | 2018-07-08 05:46 | XMS REPORT ---
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 Problem H/O TIA (transient ischemic Z86.73 Active attack) and stroke Assessment H/O TIA (transient ischemic Z86.73 Active attack) and stroke Problem H/O fall Z91.81 Active Problem Nicotine dependence F17.200 Active Problem Aortic aneurysm, abdominal I71.4 Active Problem Anemia, unspecified type D64.9 Active Problem Watery diarrhea R19.7 Active Problem 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 Assessment Aortic aneurysm, abdominal I71.4 Active Problem Generalized weakness R53.1 Active Assessment Peripheral vascular disease I73.9 Active Problem Gastrointestinal hemorrhage, K92.2 Active unspecified gastrointestinal hemorrhage type Assessment Hypercoagulable state D68.59 Active Problem Anemia in chronic illness D63.8 Active Assessment Generalized weakness R53.1 Active Problem Physical debility R53.81 Active Assessment Physical debility R53.81 Active Assessment Non-healing wound of lower S81.802D Active extremity, left, subsequent encounter Assessment 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 40187552781 250 MG Orally Active 1 tablet Three times a day Breo Ellipta [facility] 97953457255 200-25 MCG/INH Active 1 puff Inhalation Once a day Lisinopril [facility] 47270267858 40 MG Orally Active 1 tablet Once a day Prilosec [facility] 83158008228 20 MG Orally Active 1 capsule Once a day ProAir HFA [facility] 85499499858 108 (90 Base) Active 2 puffs as MCG/ACT needed Inhalation every 6 hrs Lipitor [facility] 86839074833 10 MG Orally Active 1 tablet Once a day Topamax [facility] 11133339252 25 MG Orally Active 1 tablet Once a day Clonidine HCl [facility] 97897435746 0.1 MG Orally Active 1 tablet at Twice a day bedtime Carvedilol [facility] 80231175643 12.5 MG Orally Active as directed BID Aspir-[address] [facility] 01598967932 81 MG Orally Active 1 tablet Once a day Amitriptyline [facility] 57310696627 50 MG Orally Active 1 tablet HCl Once a day Vitamin D3 [facility] 64982673171 400 UNIT Orally Active 2 tablets Once a day Zanaflex [facility] 88539570047 4 MG Orally Active 1 tablet as Three times a needed day Warfarin Sodium [facility] 81048467204 3 MG Orally Active 3 tablet Once a day Results No Known Results Summary Purpose eClinicalWorks Submission
--- OUTSIDE RECORDS SUMMARY | 2018-07-08 05:46 | XMS REPORT ---
[...] Date End Date Status Dosage Lisinopril [facility] 38655517699 40 MG Orally Once Active 1 tablet a day Results No Known Results Summary Purpose eClinicalWorks Submission
--- OUTSIDE RECORDS SUMMARY | 2018-07-08 05:46 | XMS REPORT ---
[...] Start Date End Date Status Dosage Lisinopril [facility] 65618061557 40 MG Orally Once Active 1 tablet a day Results No Known Results Summary Purpose eClinicalWorks Submission
--- OUTSIDE RECORDS SUMMARY | 2018-07-08 05:46 | XMS REPORT ---
[...] Medications Medication Code Code Instructions Start End Date Status Dosage System Date Carvedilol [facility] 01519719835 12.5 MG Orally Active as directed BID Results No Known Results Summary Purpose eClinicalWorks Submission
--- OUTSIDE RECORDS SUMMARY | 2018-07-08 05:46 | XMS REPORT ---
[...] Date Status Dosage Lisinopril [facility] 34003963404 40 MG Orally Once Active 1 tablet a day Results No Known Results Summary Purpose eClinicalWorks Submission
--- OUTSIDE RECORDS SUMMARY | 2018-07-08 05:46 | XMS REPORT ---
[...] Status Dosage System Date Date Breo Ellipta [facility] 62016578408 200-25 MCG/INH Active 1 puff Inhalation Once a day Carvedilol [facility] 16072657547 12.5 MG Orally Active as BID directed Aspir-81 [facility] 31649033519 81 MG Orally Active 1 tablet Once a day Prilosec [facility] 44110651691 20 MG Orally Active 1 capsule Once a day Lasix [facility] 83354794879 40 MG Orally Active 1 tablet Once a day Norvasc [facility] 52424375096 5 MG Orally Inactive 1 tablet Once a day ProAir HFA [facility] 58834259521 108 (90 Base) Active 2 puffs as MCG/ACT needed Inhalation every 6 hrs Primidone [facility] 78384031400 250 MG Orally Active 1 tablet Three times a day Zanaflex [facility] 23209077878 4 MG Orally Active 1 tablet Three times a as needed day Vitamin D3 [facility] 39572829622 400 UNIT Orally Active 2 tablets Once a day Lisinopril [facility] 38981407688 40 MG Orally Active 1 tablet Once a day Clonidine HCl [facility] 95084947291 0.1 MG Orally Active 1 tablet Twice a day at bedtime Topamax [facility] 53747538550 25 MG Orally Active 1 tablet Once a day Plavix [facility] 18559271337 75 MG Orally Active 1 tablet Once a day Amitriptyline [facility] 21836672061 50 MG Orally Active 1 tablet HCl Once a day Lipitor [facility] 00701209055 10 MG Orally Active 1 tablet Once a day Warfarin Sodium [facility] 98884548213 3 MG Orally Active 3 tablet Once a day Results No Known Results Summary Purpose eClinicalWorks Submission
[2018-07-08] MEDS ORDERED: FENTANYL CITR 100 MCG/2 ML ONE (05:57)
[2018-07-08 06:06] LABS: Absolute Lymphocytes (CBC) 1.3 K/uL (0.7-4.9); Absolute Monocytes 0.4 K/uL (0.1-1.3); Absolute Neutrophil 2.7 K/uL (1.8-8.0); Basophils % 0.9 % (0-1.3); Hematocrit 39.3 % (39.6-49.0); Lymphocytes % 28.1 % (15.3-44.8); MCH 28.9 pg (27.0-35.0); MCV 85.2 fL (80-100); MPV 8.2 fL (7.6-11.3); Monocytes % 9.1 % (3.3-12.3); RBC Red Blood Cell Count 4.62 M/uL (4.33-5.43)
[2018-07-08 06:35] LABS: Potassium 3.7 mmol/L (3.5-5.1)
[2018-07-08] MEDS ORDERED: HYDROCODONE/APAP 10/325 TAB ONE (06:35)
--- NOTE | 2018-07-08 09:09 | ER ---
Nurse's Notes [facility] Name: Pineda Mckeon Age: 73 yrs Sex: Male : 1945 Arrival Date: 07/08/2018 Time: 05:38 Bed 3 Private MD: Diagnosis: Other slipping, tripping and stumbling and falls-From bed;Superficial injury of head;Contusion of scalp;Laceration without foreign body of scalp Presentation: 07/08 05:43 Presenting complaint: EMS states: "He was having a dream and fell out of bed and hit jd3 his head on his dresser. He has had another fall injury 2 years ago that resulted in a brain bleed. He as reported that he is on blood thinners and has a clotting factor disorder.". Care prior to arrival: None. Mechanism of Injury: Fall out of bed. Trauma event details: Injury occurred in the [facility], Injury occurred: at home. Injury occurred: July 08, 2018. 05:43 Acuity: NORY 2 jd3 05:43 Method Of Arrival: EMS: [facility] jd3 06:06 Transition of care: patient was not received from another setting of care. Onset of jd3 symptoms was July 08, 2018. Risk Assessment: Do you want to hurt yourself or someone else? Patient reports no desire to harm self or others. Initial Sepsis Screen: Does the patient meet any 2 criteria? No. Patient's initial sepsis screen is negative. Does the patient have a suspected source of infection? No. Patient's initial sepsis screen is negative. Trauma Activation: Physician: ED Physician; Name: Dr. Pacheco; Notified At: ; Arrived At: Physician: General Surgeon; Name: ; Notified At: ; Arrived At: Physician: Radiology; Name: ; Notified At: ; Arrived At: Physician: Respiratory; Name: ; Notified At: ; Arrived At: Physician: Lab; Name: ; Notified At: ; Arrived At: Historical: - Allergies: 06:05 No Known Allergies; jd3 - Home Meds: 06:05 albuterol sulfate 90 mcg/actuation Inhl HFAA 1 puff every 6 hours [Active]; jd3 amitriptyline 50 mg oral tab 1 tab once daily [Active]; atorvastatin 10 mg oral tab 1 tab once daily [Active]; Betamethasone Valerate Topical [Active]; carvedilol 6.25 mg oral tab 1 tab 2 times per day [Active]; cholecalciferol (vitamin D3) 400 unit oral cap 2 tab daily [Active]; fentanyl 100 mcg/hr Topical pt72 1 patch every 72 hours [Active]; Breo Ellipta 200-25 mcg/dose inhalation dsdv 1 puff once daily [Active]; hydrocodone-acetaminophen 10-325 mg Oral tab 1 tab every 6 hours [Active]; lisinopril 40 mg Oral tab 1 tab once daily [Active]; Bactroban 2 % Topical crea [Active]; nystatin 100,000 unit/mL Oral susp [Active]; omeprazole 20 mg Oral cpDR 1 cap once daily [Active]; primidone 250 mg Oral tab 1 tab daily [Active]; tizanidine 4 mg Oral tab 1 tab three times a day [Active]; topiramate 100 mg oral tab 1 tab 2 times per day [Active]; urea topical topical [Active]; warfarin 9 mg Oral tab 1 tab once daily [Active]; 06:08 Flomax 0.4 mg Oral cp24 [Active]; jd3 - PMHx: 06:05 AAA; Hypertension; Degenerative disc disease; clotting disorder; COPD; blood clot in jd3 right groin; CVA; Bypass Bilateral Legs; Right Arm; TIA; - PSHx: 06:05 Right arm; Cholecystectomy; Hernia repair; jd3 - Immunization history:: Adult Immunizations up to date, Pneumococcal vaccine is up to date, Flu vaccine is up to date. - Immunization history: Last tetanus immunization: < 5 years ago. - Social history:: Smoking status: Patient/guardian denies using tobacco, the patient reports quitting approximately 7 years ago. - Ebola Screening: : Patient negative for fever greater than or equal to 101.5 degrees Fahrenheit, and additional compatible Ebola Virus Disease symptoms. Screenin:46 Abuse screen: Denies threats or abuse. Nutritional screening: No deficits noted. ea Tuberculosis screening: No symptoms or risk factors identified. Fall Risk None identified. Primary Survey: 05:49 A: Airway: patent, No supplemental oxygen in use on arrival. Oral cavity: clear. jd3 Breathing/Chest: Respiratory pattern: regular, Respiratory effort: spontaneous, unlabored, Breath sounds: diminished, bilaterally. Chest inspection: symmetrical rise and fall of the chest. Circulation: Heart tones present. Skin color: pink, Skin temperature: warm. Disability Alert. 09:00 Reassessment Airway Airway Patent Breathing/Chest Respiratory pattern Regular bp Respiratory effort Spontaneous Unlabored Circulation Color [place] Temperature Warm Dry Disability Alert. Secondary Survey: 05:50 HEENT: Head Other Small laceration noted to right latter day Face No injury/deformity. jd3 Gastrointestinal: No deficits noted. Abdomen is soft, Bowel sounds present in all quadrants. Palpation No deficit noted. : No signs and/or symptoms were reported regarding the genitourinary system. Musculoskeletal: Circulation, motion, and sensation intact. Range of motion: intact in all extremities. Assessment: 05:44 General: Appears in no apparent distress. Behavior is calm, cooperative, appropriate ea for age. Pain: Complains of pain in right frontal area Pain currently is 8 out of 10 on a pain scale. Quality of pain is described as aching. Neuro: Level of Consciousness is awake, alert, obeys commands, Oriented to person, place, time, situation. Cardiovascular: Patient's skin is warm and dry. Respiratory: Airway is patent Respiratory effort is even, unlabored, Respiratory pattern is regular, symmetrical, Breath sounds are diminished bilaterally. GI: Abdomen is non-distended. Derm: Skin is pink, warm \\T\\ dry. Injury Description: Laceration sustained to right frontal area is jagged, 2.6 to 7.5 cm long, was sustained 30-60 minutes ago. 07:00 Reassessment: RECD REPORT FROM PEDRO LUIS JARRELL. 73YO WM S/P FALL, ON BLOOD THINNERS. 4CM R bp TEMPORAL LAC NOTED, NO ACTIVE BLEEDING. PT AOx4, GCS15. CT RESULTS PENDING. 09:17 Reassessment: PT D/C HOME VIA W/C WITH FAMILY, DX WITH SUPERFICIAL INJURY TO HEAD. bp Vital Signs: 05:52 BP 188 / 89; Pulse 68; Resp 18 S; Temp 98.1(O); Pulse Ox 99% on R/A; Weight 72.12 kg jd3 (R); Height 5 ft. 7 in. (170.18 cm) (R); Pain 8/10; 07:00 BP 169 / 87; Pulse 66; Resp 14; Pulse Ox 99% ; bp 07:57 BP 156 / 79; Pulse 65; Resp 16; Pulse Ox 98% ; bp 09:00 BP 170 / 96; Pulse 69; Resp 14; Pulse Ox 96% ; bp 05:52 Body Mass Index 24.90 (72.12 kg, 170.18 cm) jd3 Tavia Coma Score: 05:52 Eye Response: spontaneous(4). Verbal Response: oriented(5). Motor Response: obeys jd3 commands(6). Total: 15. Trauma Score (Adult): 05:52 Eye Response: spontaneous(1); Verbal Response: oriented(1); Motor Response: obeys jd3 commands(2); Systolic BP: > 89 mm Hg(4); Respiratory Rate: 10 to 29 per min(4); Tavia Score: 15; Trauma Score: 12 ED Course: 05:38 Patient arrived in ED. am2 05:43 Gab Portillo RN is Primary Nurse. jd3 05:43 Tayo Pacheco MD is Attending Physician. ps1 05:47 Patient maintains SpO2 saturation greater than 95% on room air. Thermoregulation: warm ea blanket given to patient. 05:48 Triage completed. jd3 06:06 Arm band placed on. jd3 06:06 Patient has correct armband on for positive identification. Bed in low position. Call jd3 light in reach. Side rails up X2. Adult w/ patient. 06:17 CT Head C Spine In Process Unspecified. EDMS 07:03 Primary Nurse role handed off by Gab Portillo RN bp 07:03 Lul Good, RN is Primary Nurse. bp 07:39 Attending Physician role handed off by Tayo Pacheco MD kdr 07:39 Mihir Green MD is Attending Physician. kdr 07:56 Wound care: to laceration located on right latter day was cleaned with Hibiclens, Patient bp tolerated well. 08:15 Assist provider with laceration repair on right latter day that was 2.5 cm. or less using bp PRESSURE DRESSING. Patient did not have IV access during this emergency room visit. Administered Medications: 06:33 CANCELLED (Physician Discretion): fentaNYL (PF) 50 mcg IVP once ea 06:34 Drug: [place] 10 mg-325 mg 1 tabs Route: PO; ea 08:53 Follow up: Response: Pain is decreased bp Intake: 07:00 PO: 0ml; Total: 0ml. bp Output: 07:00 Urine: 0ml; Total: 0ml. bp Outcome: 09:08 Discharge ordered by . kdr 09:18 Discharged to home via wheelchair, with family. bp 09:18 Condition: stable 09:18 Discharge instructions given to patient, family, Instructed on discharge instructions, follow up and referral plans. medication usage, wound care, Demonstrated understanding of instructions, follow-up care, medications, wound care, Prescriptions given X 1. 09:21 CT RESULTSPatient's length of stay extended due to bp 09:22 Patient left the ED. bp Signatures: Dispatcher [employer] EDMS Mihir Green MD MD kdr Miriam Solitario am2 Marlene Decker RN RN Gab Marquez RN RN jLul Crandall RN RN Tayo Collado MD MD ps1
--- NOTE | 2018-07-08 09:09 | EDPHYS ---
Physician Documentation [facility] Name: Pineda Mckeon Age: 73 yrs Sex: Male : 1945 Arrival Date: 07/08/2018 Time: 05:38 Bed 3 Private MD: ED Physician Mihir Green HPI: 07/08 05:47 This 73 yrs old Male presents to ER via Unassigned with complaints of Fall ps1 Injury. 05:47 hx of factor V leiden and on warfarin. Hx of craniotomy to right side. Had a physical ps1 dream and fell out of bed and hit head on nightstand. Has scalp laceration. Pain rated as moderate. No LOC. No FND. . Historical: - Allergies: 06:05 No Known Allergies; jd3 - Home Meds: 06:05 albuterol sulfate 90 mcg/actuation Inhl HFAA 1 puff every 6 hours [Active]; jd3 amitriptyline 50 mg oral tab 1 tab once daily [Active]; atorvastatin 10 mg oral tab 1 tab once daily [Active]; Betamethasone Valerate Topical [Active]; carvedilol 6.25 mg oral tab 1 tab 2 times per day [Active]; cholecalciferol (vitamin D3) 400 unit oral cap 2 tab daily [Active]; fentanyl 100 mcg/hr Topical pt72 1 patch every 72 hours [Active]; Breo Ellipta 200-25 mcg/dose inhalation dsdv 1 puff once daily [Active]; hydrocodone-acetaminophen 10-325 mg Oral tab 1 tab every 6 hours [Active]; lisinopril 40 mg Oral tab 1 tab once daily [Active]; Bactroban 2 % Topical crea [Active]; nystatin 100,000 unit/mL Oral susp [Active]; omeprazole 20 mg Oral cpDR 1 cap once daily [Active]; primidone 250 mg Oral tab 1 tab daily [Active]; tizanidine 4 mg Oral tab 1 tab three times a day [Active]; topiramate 100 mg oral tab 1 tab 2 times per day [Active]; urea topical topical [Active]; warfarin 9 mg Oral tab 1 tab once daily [Active]; 06:08 Flomax 0.4 mg Oral cp24 [Active]; jd3 - PMHx: 06:05 AAA; Hypertension; Degenerative disc disease; clotting disorder; COPD; blood clot in jd3 right groin; CVA; Bypass Bilateral Legs; Right Arm; TIA; - PSHx: 06:05 Right arm; Cholecystectomy; Hernia repair; jd3 - Immunization history:: Adult Immunizations up to date, Pneumococcal vaccine is up to date, Flu vaccine is up to date. - Immunization history: Last tetanus immunization: < 5 years ago. - Social history:: Smoking status: Patient/guardian denies using tobacco, the patient reports quitting approximately 7 years ago. - Ebola Screening: : Patient negative for fever greater than or equal to 101.5 degrees Fahrenheit, and additional compatible Ebola Virus Disease symptoms. ROS: 05:47 Constitutional: Negative for fever, chills, and weight loss, Eyes: Negative for injury, ps1 pain, redness, and discharge, Cardiovascular: Negative for chest pain, palpitations, and edema, Respiratory: Negative for shortness of breath, cough, wheezing, and pleuritic chest pain, Abdomen/GI: Negative for abdominal pain, nausea, vomiting, diarrhea, and constipation, MS/Extremity: Negative for injury and deformity, Neuro: Negative for headache, weakness, numbness, tingling, and seizure, Psych: Negative for depression, anxiety, suicide ideation, homicidal ideation, and hallucinations. 05:47 Skin: Positive for laceration(s), of the right frontal area. Exam: 05:47 Constitutional: This is a well developed, well nourished patient who is awake, alert, ps1 and in no acute distress. 05:47 Eyes: Pupils equal round and reactive to light, extra-ocular motions intact. Lids and lashes normal. Conjunctiva and sclera are non-icteric and not injected. ENT: Nares patent. No nasal discharge, no septal abnormalities noted. Tympanic membranes are normal and external auditory canals are clear. Oropharynx with no redness, swelling, or masses, exudates, or evidence of obstruction, uvula midline. Mucous membranes moist. Chest/axilla: Normal chest wall appearance and motion. Nontender with no deformity. No lesions are appreciated. Cardiovascular: Regular rate and rhythm. No gallops, murmurs, or rubs. Normal PMI, no JVD. No pulse deficits. Respiratory: Lungs have equal breath sounds bilaterally, clear to auscultation and percussion. No rales, rhonchi or wheezes noted. No increased work of breathing, no retractions or nasal flaring. Abdomen/GI: Soft, non-tender, with normal bowel sounds. No distension or tympany. No guarding or rebound. No evidence of tenderness throughout. Skin: Warm, dry with normal turgor. Normal color with no rashes, no lesions, and no evidence of cellulitis. MS/ Extremity: Pulses equal, no cyanosis. Neurovascular intact. Full, normal range of motion. Neuro: Awake and alert, GCS 15, oriented to person, place, time, and situation. Cranial nerves II-XII grossly intact. Sensory grossly intact. Psych: Awake, alert, with orientation to person, place and time. Behavior, mood, and affect are within normal limits. 05:47 Head/face: Noted is a laceration(s), that is jagged, 4 cm(s), of the right tenriism. Vital Signs: 05:52 BP 188 / 89; Pulse 68; Resp 18 S; Temp 98.1(O); Pulse Ox 99% on R/A; Weight 72.12 kg jd3 (R); Height 5 ft. 7 in. (170.18 cm) (R); Pain 8/10; 07:00 BP 169 / 87; Pulse 66; Resp 14; Pulse Ox 99% ; bp 07:57 BP 156 / 79; Pulse 65; Resp 16; Pulse Ox 98% ; bp 09:00 BP 170 / 96; Pulse 69; Resp 14; Pulse Ox 96% ; bp 05:52 Body Mass Index 24.90 (72.12 kg, 170.18 cm) jd3 [place] Coma Score: 05:52 Eye Response: spontaneous(4). Verbal Response: oriented(5). Motor Response: obeys jd3 commands(6). Total: 15. Trauma Score (Adult): 05:52 Eye Response: spontaneous(1); Verbal Response: oriented(1); Motor Response: obeys jd3 commands(2); Systolic BP: > 89 mm Hg(4); Respiratory Rate: 10 to 29 per min(4); Tavia Score: 15; Trauma Score: 12 MDM: 06:08 Patient medically screened. ps1 09:04 Data reviewed: vital signs. ED course: The patient was stable in the ED. There was a kdr small 1 cm vertical laceration on the right parietal area between the two prior zane holes. It is well approximated and bleeding was controlled with direct pressure and coban. The patient was otherwise stable in the ED and ready and willing for discharge. 07/08 05:46 Order name: Basic Metabolic Panel; Complete Time: 06:35 ps1 07/08 05:46 Order name: CBC with Diff; Complete Time: 06:18 ps1 07/08 05:46 Order name: CT Head C Spine ps1 07/08 05:46 Order name: Labs collected and sent; Complete Time: 06:07 ps1 Administered Medications: 06:33 CANCELLED (Physician Discretion): fentaNYL (PF) 50 mcg IVP once ea 06:34 Drug: [place] 10 mg-325 mg 1 tabs Route: PO; ea 08:53 Follow up: Response: Pain is decreased bp Disposition: 07/08/18 09:08 Discharged to Home. Impression: Other slipping, tripping and stumbling and falls - From bed, Superficial injury of head, Contusion of scalp, Laceration without foreign body of scalp. - Condition is Stable. - Discharge Instructions: Laceration Care, Adult, [id number], Head Injury, Adult, [id number], Facial or Scalp Contusion, [id number]. - Prescriptions for Keflex 500 mg Oral Capsule - take 1 capsule by ORAL route every 6 hours for 3 days; 12 capsule. - Medication Reconciliation Form, Thank You Letter, Antibiotic Education form. - Follow up: Private Physician; When: 2 - 3 days; Reason: If symptoms return, Further diagnostic work-up, Recheck today's complaints, Continuance of care, Re-evaluation by your physician. - Problem is new. - Symptoms have improved. Signatures: Dispatcher [employer] EDDE Mihir Green MD MD [facility] Marlene Decker RN RN ea Davies, Jonathon, RN RN jd3 Peltier, Brian, RN RN bp Singer, Phillip, MD MD ps1 Corrections: (The following items were deleted from the chart) 06:33 05:50 fentaNYL (PF) 50 mcg IVP once ordered. ea ea 06:33 06:30 fentaNYL (PF) 50 mcg IVP once ordered. ea ea 08:55 05:47 TYPE AND SCREEN+[id number] ordered. [facility] 09:22 09:08 07/08/2018 09:08 Discharged to Home. Impression: Other slipping, tripping and bp stumbling and falls - From bed; Superficial injury of head; Contusion of scalp; Laceration without foreign body of scalp. Condition is Stable. Forms are Medication Reconciliation Form, Thank You Letter, Antibiotic Education, Prescription Opioid Use. Follow up: Private Physician; When: 2 - 3 days; Reason: If symptoms return, Further diagnostic work-up, Recheck today's complaints, Continuance of care, Re-evaluation by your physician. Problem is new. Symptoms have improved. kdr
--- NOTE | 2018-07-08 09:24 | RAD REPORT ---
EXAM DESCRIPTION: CT - [id number] - 07/08/2018 6:17 am CLINICAL HISTORY: Fall, head and neck injury, right scalp laceration, history of craniotomy for intr acranial hemorrhage. A preliminary report was provided at the time of the study and reviewed prior to final report. COMPARISON: None. TECHNIQUE: Axial 5 mm thick images of the head were obtained. Axial 2 mm thick images of the cervic al spine were obtained with sagittal and coronal reconstruction images generated and reviewed. All CT scans are performed using dose optimization technique as appropriate and may include automated exposure control or mA/KV adjustment according to patient size. FINDINGS: No acute intracranial hemorrhage is present. There is no mass effect, edema or shift of mi dline structures. Encephalomalacia is present in the posterior right parietal lobe from prior trauma or ischemic injury. No cortical edema or sulcal effacement. No suspicion for acute infarction. There is minimally asymmetric fluid density along the right superolateral cerebral hemisphere. This is prob ably a very small amount of chronic subdural hematoma or subdural hygroma. This is not clinically sig nificant. Mastoid air cells and paranasal sinuses are clear. No globe or orbit abnormality seen. Two zane holes are seen in the right lateral skull matching the history of subdural hematoma resection. Cervical bodies are normal in height. There is slight retrolisthesis of C3 on C4 slight anterolisthes is of C4 on 5 and slight retrolisthesis of C5 on C6. All disc spaces are narrowed. No fracture or acu te bony abnormality. No acute or destructive bone process identifiable. There is calcification across the C2-3 disc space which may be partially fused. Left bony foraminal encroachment at C3-4. Severe r ight-sided facet degenerative change at C4-5. Bilateral bony foraminal encroachment at C5-6 from unco vertebral joint hypertrophy. Canal is borderline stenotic. No paraspinal mass or hematoma. IMPRESSION: No acute hemorrhage is present. No edema, mass or midline shift. Patient has underlying atrophy and chronic ischemic change. Ventricles are in proportion to volume lo ss. Postsurgical changes are present from prior subdural evacuation. Patient has a very minimal amount of chronic subdural hematoma or subdural hygroma. This is not clinically significant. Old post ischemic or posttraumatic posterior right parietal encephalomalacia. Advanced cervical spine degenerative change without acute finding.
[2018-07-08 09:27] VITALS: TEMP 98.1
[2018-07-08 09:31] VITALS: BP 170/96; O2SAT 96
== END 2018-07-08 09:22 | disposition home or self-care (01) ==
LOC: ER 05:37
DX: S01.01XA Laceration without foreign body of scalp, initial encounter (principal); W06.XXXA Fall from bed, initial encounter; Y93.84 Activity, sleeping; Y92.9 Unspecified place or not applicable; Z79.01 Long term (current) use of anticoagulants; I10 Essential (primary) hypertension; J44.9 Chronic obstructive pulmonary disease, unspecified
CPT/HCPCS: 36415; 70450; 72125; 80048; 85025; 99284; J3010

== ENCOUNTER 2018-10-02 16:30 | Emergency (ER) | payer OTHER ==
--- OUTSIDE RECORDS SUMMARY | 2018-10-02 16:35 | XMS REPORT | Clinical Summary ---
:1945 Author Organization [facility] Address [address] [place] [address] Care Team Providers Name Role Phone Home [...] groin; MD Rik ZHANE (acute kidney injury) ([facility]) Kath Jones MD Zindani, Shireen, MD 02/02/2018 Anesthesia Event Devon Li MD 02/02/2018 Surgery Christian Hdz MARINE OPERATIONS COORDINATOR ILIAC ARTERY MD Rik 02/02/2018 - Hospital [...] Rik 12/25/2017 Clinical Support Cardiology Gurinder Morelos Jr., MD 12/10/2017 Orders Only General Internal Medicine 12/09/2017 Anesthesia Event Kye Nicole MD 12/09/2017 - Hospital Encounter Cardiology Christian Hdz Abdominal aortic 12/10/2017 MD 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) 12/09/2017 Surgery Christian Hdz TAVR / KYLIE MCR - IP MD Rik PROC ONLY 12/04/2017 Surgery Christian Hdz MARINE OPERATIONS COORDINATOR ILIAC ARTERY MD Rik 12/04/2017 - Hospital [...] Visit Cardiology Gurinder Morelos Severe aortic stenosis; Alessandro Hernadez MD Anemia, unspecified type; Essential hypertension; Hyperlipidemia, unspecified hyperlipidemia type; Cerebrovascular accident (CVA), unspecified mechanism (HCC); Chronic obstructive pulmonary disease, unspecified COPD type (HCC); Seizures (HCC); Peripheral vascular disease (HCC); Bilateral carotid artery occlusion; Aneurysm (HCC); Blood clotting tendency (HCC); Factor VIII deficiency (HCC) 11/10/2017 Outside Orders [facility] Christian Hdz Nonrheumatic aortic Scheduling MD Rik valve stenosis (Primary Dx) after 10/01/2017 Social History Tobacco Use Types Packs/Day Years [...] INFLUENZA VACCINE 05/10/2018 Implants Implanted Type Area Doweler Device Shelf Model / Identifier Expiration Serial / Date Lot Amplatzer Vascular Plug Ii Cardiovascular [facility] 12/07/2021 [id number] -[id number] / Implanted: Qty: 1 on 12/04/2017 by Christian Hdz MD / [id number] Azur 18 Detachable Helical Hydrocoil Coil 08/15/2020 [id number] / Implanted: Qty: 1 on 12/04/2017 by Christian Hdz MD / [id number] Azur 35 Detachable Helical Hydrocoil Coil 05/09/2022 [id number] / Implanted: Qty: 1 on 12/04/2017 by Christian Hdz MD / [id number] Azur 35 Detachable Helical Hydrocoil Coil 05/09/2022 [id number] / Implanted: Qty: 1 on 12/04/2017 by Christian Hdz MD / [id number] Azur 35 Detachable Helical Hydrocoil Coil 05/09/2022 [id number] / Implanted: Qty: 1 on 12/04/2017 by Christian Hdz MD / [id number] Azur Cx 35 Detachable Cx Coil Coil 07/09/2021 [id number] / Implanted: Qty: 1 on 12/04/2017 by Christian Hdz MD / [id number] Azur Cx 35 Detachable Cx Coil Coil 02/06/2021 [id number] / Implanted: Qty: 1 on 12/04/2017 by Christian Hdz MD / [id number] Azur Cx 35 Detachable Cx Coil Coil 08/09/2021 [id number] / Implanted: Qty: 1 on 12/04/2017 by Christian Hdz MD / [id number] Azur 35 Detachable Helical Hydrocoil Coil 10/02/2020 [id number] / Implanted: Qty: 1 on 12/04/2017 by Christian Hdz MD / [id number] Azur Cx 35 Detachable Cx Coil Coil 08/09/2021 [id number] / Implanted: Qty: 1 on 12/04/2017 by Christian Hdz MD / [id number] Azur 18 Detachable Helical Hydrocoil Coil 06/09/2018 [id number] / Implanted: Qty: 1 on 12/04/2017 by Christian Hdz MD / [id number] Azur 18 Detachable Helical Hydrocoil Coil 05/23/2020 [id number] / Implanted: Qty: 1 on 12/04/2017 by Christian Hdz MD / [id number] Azur Cx 18 Detachable Cx Coil Coil 06/09/2021 [id number] / Implanted: Qty: 1 on 12/04/2017 by Christian Hdz MD / [id number] Azur Cx 18 Detachable Cx Coil Coil 05/09/2021 [id number] / Implanted: Qty: 1 on 12/04/2017 by Christian Hdz MD / [id number] Azur 35 Detachable Framing Coil Coil 10/07/2022 [id number] / Implanted: Qty: 1 on 12/04/2017 by Christian Hdz MD / [id number] Azur 35 Detachable Framing Coil Coil 10/07/2022 [id number] / Implanted: Qty: 1 on 12/04/2017 by Christian Hdz MD / [id number] Azur 35 Detachable Framing Coil Coil 10/07/2022 [id number] / Implanted: Qty: 1 on 12/04/2017 by Christian Hdz MD / [id number] Azur 35 Detachable Framing Coil Coil 10/07/2022 [id number] / Implanted: Qty: 1 on 12/04/2017 by Christian Hdz MD / [id number] Grmarcell Vasc Knit Gld [id number] - [id number] Graft/Patch N/A: GETINGE 12/07/2021 [id number] / Implanted: Qty: 1 on 02/02/2018 by Christian Hdz MD Arterial IND: MAQUET:CV [id number] / Lif[employer]ar Stents-Peripher BARD VASCULAR [id number] 05/30/2018 [id number] / Implanted: Qty: 1 on 02/02/2018 by Christian Hdz MD al / [id number] [employer]ream Stents-Peripher BARD VASCULAR [id number] 10/07/2020 [id number] / Implanted: Qty: 1 on 02/02/2018 by Christian Hdz MD al / [id number] [employer]ar Stents-Peripher BARD VASCULAR [id number] 07/31/2020 [id number] / Implanted: Qty: 1 on 02/02/2018 by Christian Hdz MD al / [id number] [employer]ream Stents-Peripher BARD VASCULAR [id number] 04/09/2020 [id number] / Implanted: Qty: 1 on 02/02/2018 by Christian Hdz MD al / [id number] Higgins Denilson 3 Thv Valves N/A: HIGGINS 08/20/2019 [id number] / Implanted: Qty: 1 on 12/09/2017 by Christian Hdz MD Heart SatispayCIENCES [id number] / Procedures Procedure Name Priority Date/Time Associated Comments Diagnosis TRANSFUSE STAT 09/16/2018 5:31 LEUKO-REDUCED RED PM [facility] NURSING DIRECTOR BLOOD CELLS RHYTHM STRIP - SCAN 05/27/2018 9:10 AM [...] are in the results section. PREPARE RBC SIMONE 02/03/2018 11:54 Results for this PM CDT [...] in the results section. POCT-ACT Routine 02/02/2018 4:04 Results for this [...] CDT procedure are in the results section. MARINE OPERATIONS COORDINATOR ILIAC ARTERY 02/02/2018 1:11 Vascular disease, PM [...] (HCC) Case Notes POP6 PERIPHERAL ANGIOGRAM POSS MARINE OPERATIONS COORDINATOR PROTHROMBIN TIME/INR STAT 01/27/2018 1:53 PM CDT [...] 394 ms QTC Calculation(Bazett) 454 ms P Rye 60 degrees R Rye -32 degrees T Rye 75 degrees Normal sinus rhythm Left axis [...] CDT procedure are in the results section. MARINE OPERATIONS COORDINATOR FEMORAL &/OR 12/04/2017 7:35 AM PVD (peripheral POPLITEAL CDT vascular disease) (HCC) Case Notes (2) POP6 MARINE OPERATIONS COORDINATOR ILIAC ARTERY 12/04/2017 7:35 AM CDT PVD [...] procedure are in the results section. after 10/01/2017 Results Transfuse Leuko-Red RBC (09/16/2018 5:31 PM COMMUNITY HEALTH NURSING DIRECTOR)RHYTHM STRIP - SCAN (2017 9:10 AM CDT)Only the most recent of6 [...] Protime 25.0 (H) 11.7 - 14.7 seconds [facility] INR 2.3 <=5.9 [facility] Specimen Blood Narrative Performed At [facility] RECOMMENDED COUMADIN/WARFARIN INR THERAPY RANGES STANDARD DOSE: 2.0 - 3.0 Includes: PROPHYLAXIS for venous thrombosis, systemic embolization; TREATMENT for venous thrombosis and/or pulmonary embolus. HIGH RISK: Target INR is 2.5-3.5 for patients with mechanical heart valves. While on warfarin. Performing Organization Address City/[facility]/Zipcode Phone Number [address] [address] CENTER Vancomycin level, random (03/29/2018 4:16 AM CDT)Only the most recent of2 resultswithin the time period is included. Vancomycin Rm 16.9 ug/mL [facility] Specimen Blood Narrative Performed At [facility] Reference Range: No Normals Performing Organization Address City/State/Zipcode Phone Number [address] [address] CENTER Basic Metabolic Panel (03/29/2018 4:16 AM CDT)Only the most recent of13 resultswithin the time period is included. Sodium 137 136 - 145 meq/L [facility] Potassium 3.5 3.5 - 5.1 meq/L [facility] Chloride 106 98 - 107 meq/L [facility] CO2 22 22 - 29 meq/L [facility] BUN 18 7 - 21 mg/dL [facility] Creatinine 0.92 0.57 - 1.25 mg/dL [facility] Glucose 95 70 - 105 mg/dL [facility] Calcium 8.7 8.4 - 10.2 mg/dL [facility] EGFR 80Comment: ESTIMATED GFR IS mL/min/1.[address] [facility] NOT ACCURATE CREATININE [facility] CENTER CLEARANCE IN PREDICTING GLOMERULAR FILTRATION RATE. ESTIMATED GFR IS NOT APPLICABLE FOR DIALYSIS PATIENTS. Specimen Blood Performing Organization Address City/[facility]/Zipcode Phone Number [address] [address] [phone] [place] Vancomycin level, trough (03/27/2018 5:46 PM CDT)Only the most recent of3 resultswithin the time period is included. Vancomycin Tr 25.2 (H) 10.0 - 20.0 ug/mL [facility] Specimen Blood - Arm, Left Performing Organization Address [facility] Phone Number [address] [address] [phone] [place] Lactic acid, venous, whole blood (03/27/2018 5:22 AM CDT) Lactate, Venous 0.6 0.5 - 2.2 mmol/L [facility] Specimen Blood Narrative Performed At [facility] Effective 12/12/2015: Units/Reference Range Change New: 0.5-2.2 mmol/LPrevious: 5-20 mg/dL Performing Organization Address [facility] Phone Number [address] [address] [phone] CENTER CBC with platelet count + automated diff (03/25/2018 5:28 AM CDT)Only the most recent of7 resultswithin the time period is included. WBC 3.8 3.5 - 10.5 K/L [facility] RBC 3.43 (L) 4.63 - 6.08 M/L [facility] Hemoglobin 9.2 (L) 13.7 - 17.5 GM/DL [facility] Hematocrit 29.6 (L) 40.1 - 51.0 % [facility] MCV 86.3 79.0 - 92.2 fL [facility] MCH 26.8 25.7 - 32.2 pg [facility] MCHC 31.1 (L) 32.3 - 36.5 GM/DL [facility] RDW 15.8 (H) 11.6 - 14.4 % [facility] Platelets 163 150 - 450 K/CU MM [facility] MPV 9.9 9.4 - 12.4 fL [facility] nRBC 0 0 - 0 /100 WBC [facility] % Neutros 57 % [facility] % Lymphs 24 % [facility] % Monos 12 % [facility] % Eos 6 % [facility] % Baso 1 % [facility] # Neutros 2.18 1.78 - 5.38 K/L [facility] # Lymphs 0.93 (L) 1.32 - 3.57 K/L [facility] # Monos 0.44 0.30 - 0.82 K/L [facility] # Eos 0.23 0.04 - 0.54 K/L [facility] # Baso 0.03 0.01 - 0.08 K/L [facility] Immature Granulocytes-Relative 0 0 - 1 % [facility] Specimen Blood Performing Organization Address City/[facility] Phone Number [facility] [address] [place] [address] [place] Tissue Exam (03/23/2018 11:36 AM CDT)Only the most recent of2 resultswithin the time period is included. Case Report Surgical Pathology Report Case: [id number] [facility] Authorizing Provider:Aris Parker MD Collected: 03/23/2018 1136 [facility] Ordering Location: [facility] [place] [facility] Received: 03/23/2018 1158 [facility] Pathologist: Lanie Jaquez MD Specimen:Groin, Right, Right Groin Tissue DIAGNOSIS SOFT TISSUE, RIGHT GROIN, DEBRIDEMENT: [facility] - FIBROADIPOSE TISSUE WITH FAT NECROSIS, ACUTE AND CHRONIC INFLAMMATION, [facility] AND FOREIGN BODY GIANT CELL REACTION Signing Pathologist Direct Phone Line: [phone] CPT Code(s) 61267 [facility] CLINICAL HISTORY infection [facility] SPECIMEN SOURCE Right groin tissue [facility] GROSS DESCRIPTION The specimen is received in [facility] a formalin-filled container [facility] and labeled with the patient's information and labeled "right groin tissue" and consists of a segment of rodríguez-chapman hemorrhagic soft tissue measuring 3 x 1.6 x 0.5 cm. [employer] Consultant sections are submitted A1.CG/pl MICROSCOPIC DESCRIPTION Performed. [facility] Specimen Tissue - Groin, Right Performing Organization Address [facility] Phone Number [facility] [address] [place] [address] [phone] [place] AFB culture + smear (03/23/2018 11:31 AM CDT)Only the most recent of2 resultswithin the time period is included. Result No acid-fast bacilli isolated in [facility] 42 days CENTER AFB Smear No acid fast bacilli seen [facility] Specimen Body Fluid - Groin, Right Performing Organization Address [facility] Phone Number [facility] [address] [address] [phone] [place] Anaerobic culture (03/23/2018 11:31 AM CDT)Only the most recent of2 resultswithin the time period is included. Result No anaerobes isolated [facility] Specimen Body Fluid - Groin, Right Performing Organization Address [facility] Phone Number [address] [address] [place] Surgically obtained culture + gram stain (03/23/2018 11:31 AM CDT)Only the most recent of2 resultswithin the time period is included. Result METHICILLIN RESISTANT [facility] STAPHYLOCOCCUS AUREUS (A) MED[facility] [place] Result 1+ Enterococcus species (A) [facility] Gram Stain Result <1+ WBCs [facility] Gram Stain Result No organisms seen [facility] Specimen Body Fluid - Groin, Right Organism [...] species Vancomycin 1: Susceptible Performing Organization Address [facility] Phone Number [address] [address] [phone] [place] Fungus culture + smear (03/23/2018 11:31 AM CDT)Only the most recent of2 resultswithin the time period is included. Result No fungus isolated in 28 days [facility] Fungus Smear No fungi seen [facility] Specimen Body Fluid - Groin, Right Performing Organization Address City/[facility] Phone Number [address] [place] [address] CENTER SPIN/CONCENTRATION CHARGE (03/23/2018 11:31 AM CDT) Concentration charged Done [facility] Specimen Body Fluid - Groin, Right Performing Organization Address [facility] Phone Number [address] [address] [place] TRANSFUSION SERVICE REPORT - SCAN (02/07/2018 6:00 PM CDT)Only the most recent of7 resultswithin the time period is included. Narrative Performed At Prepare RBC (02/05/2018 3:24 PM CDT)Only the most recent of3 resultswithin the time period is included. Unit ABO O Neg SAFETRACE TX UNIT NUMBER [id number] [facility]AFETRACE TX Status WORK IN PROGRESS SAFETRACE TX Blood Bank Product RED BLOOD CELLS SAFETRACE TX PRODUCT CODE [id number] SAFETRACE TX Unit ABO O Neg SAFETRACE TX UNIT NUMBER [id number] SAFETRACE TX Status WORK IN PROGRESS SAFETRACE TX Blood Bank Product RED BLOOD CELLS SAFETRACE TX PRODUCT CODE [id number] SAFETRACE TX CROSSMATCH COMPATIBLE SAFETRACE TX CROSSMATCH COMPATIBLE SAFETRACE TX Performing Organization Address [facility] Phone Number SAFETRACE TX CBC (Hemogram only) (02/05/2018 5:13 AM CDT)Only the most recent of5 resultswithin the time period is included. WBC 6.5 3.5 - 10.5 K/L [facility] RBC 3.24 (L) 4.63 - 6.08 M/L [facility] Hemoglobin 8.5 (L) 13.7 - 17.5 GM/DL [facility] Hematocrit 27.4 (L) 40.1 - 51.0 % [facility] MCV 84.6 79.0 - 92.2 fL [facility] MCH 26.2 25.7 - 32.2 pg [facility] MCHC 31.0 (L) 32.3 - 36.5 GM/DL [facility] RDW 18.4 (H) 11.6 - 14.4 % [facility] Platelets 127 (L) 150 - 450 K/CU MM [facility] MPV 9.8 9.4 - 12.4 fL [facility] nRBC 0 0 - 0 /100 WBC [facility] Specimen Blood Performing Organization Address City/[facility] Cent[facility]ode Phone Number [address] [address] CENTER Phosphorus (02/05/2018 5:13 AM CDT)Only the most recent of4 resultswithin the time period is included. Phosphorus 2.2 (L) 2.3 - 4.7 mg/dL [facility] Specimen Blood Performing Organization Address City/[facility] Phone Number [address] [address] [phone] CENTER Magnesium (02/05/2018 5:13 AM CDT)Only the most recent of4 resultswithin the time period is included. Magnesium 2.1 1.6 - 2.6 mg/dL [facility] Specimen Blood Performing Organization Address City/[facility] Phone Number [address] [address] CENTER Hemoglobin and hematocrit (02/04/2018 11:49 AM CDT)Only the most recent of2 resultswithin the time period is included. Hemoglobin 8.4 (L) 13.7 - 17.5 GM/DL [facility] Hematocrit 28.9 (L) 40.1 - 51.0 % [facility] Specimen Blood - Arm, Right Performing Organization Address [facility] Phone Number [address] [address] CENTER CARDIAC CATH REPORT - SCAN (02/03/2018 12:40 PM CDT) Narrative Performed At Comprehensive metabolic panel (02/03/2018 5:10 AM CDT)Only the most recent of2 resultswithin the time period is included. [facility], Total 5.7 (L) 6.0 - 8.3 gm/dL [facility] Albumin 3.3 (L) 3.5 - 5.0 g/dL [facility] Alkaline Phosphatase 133 40 - 150 U/L [facility] Total Bilirubin 0.8 0.2 - 1.2 mg/dL [facility] Sodium 134 (L) 136 - 145 meq/L [facility] Potassium 4.1 3.5 - 5.1 meq/L [facility] Chloride 106 98 - 107 meq/L [facility] CO2 19 (L) 22 - 29 meq/L [facility] BUN 6 (L) 7 - 21 mg/dL [facility] Creatinine 0.88 0.57 - 1.25 mg/dL [facility] Glucose 163 (H) 70 - 105 mg/dL [facility] Calcium 8.3 (L) 8.4 - 10.2 mg/dL [facility] AST 12 5 - 34 U/L [facility] ALT <6 (L) 6 - 55 U/L [facility] EGFR 85Comment: ESTIMATED GFR mL/min/1.73 sq m [facility] IS NOT ACCURATE [facility] CREATININE CLEARANCE IN PREDICTING GLOMERULAR FILTRATION RATE. ESTIMATED GFR IS NOT APPLICABLE FOR DIALYSIS PATIENTS. Specimen Blood - Line, Venous Performing Organization Address City/State/Zipcode Phone Number [facility] [address] [place] [address] CENTER XR chest 1 view portable / bedside (02/02/2018 11:00 PM CDT) Narrative Performed At FINAL REPORT [facility] Chest, one view HISTORY: Postop COMPARISON: CTA [...] MD Report Verified Date/Time:02/02/2018 23:12:37 Reading Location: [address] Consult Reading Room Procedure Note Interface, External [...] No new acute cardiopulmonary abnormality. Signed: Denzel Huitrno MD Report Verified Date/Time: 02/02/2018 23:12:37 Reading Location: [facility] C013 Consult Reading Room Performing Organization Address City/State/Zipcode Phone Number [facility] Oxygen saturation, measured (02/02/2018 10:51 PM CDT) O2 Saturation (Measured) 72.2 % [facility] Specimen Blood Performing Organization Address City/State/Zipcode Phone Number [facility] [address] [place] [address] [place] Calcium, Ionized (02/02/2018 10:51 PM CDT)Only the most recent of4 resultswithin the time period is included. Calcium, Ion 1.02 (L) 1.12 - 1.27 mmol/L [facility] pH, Blood 7.38 [facility] Specimen Blood Performing Organization Address City/[facility] Phone Number [address] [address] [place] Lactic acid, arterial, whole blood (02/02/2018 10:51 PM CDT) Lactate, Art 1.7 0.5 - 2.2 mmol/L [facility] Specimen Blood, Arterial Narrative Performed At [facility] Effective 12/12/2015: Units/Reference Range Change New: 0.5-2.2 mmol/LPrevious: 5-20 mg/dL Performing Organization Address City/[facility] Phone Number [address] [address] [place] aPTT (02/02/2018 10:51 PM CDT)Only the most recent of2 resultswithin the time period is included. PTT 29.8 22.5 - 36.0 seconds [facility] Specimen Blood Performing Organization Address [facility] Phone Number [address] [address] [phone] [place] Fibrinogen (02/02/2018 10:51 PM CDT)Only the most recent of2 resultswithin the time period is included. Fibrinogen 276 225 - 434 mg/dl [facility] Specimen Blood Performing Organization Address City/[facility] Phone Number [address] [address] [phone] [place] Hepatic function panel (02/02/2018 10:51 PM CDT) Protein, Total 5.8 (L) 6.0 - 8.3 gm/dL [facility] Albumin 3.5 3.5 - 5.0 g/dL [facility] Total Bilirubin 1.5 (H) 0.2 - 1.2 mg/dL [facility] Bilirubin, Direct 0.8 (H) 0.1 - 0.5 mg/dL [facility] Alkaline Phosphatase 142 40 - 150 U/L [facility] AST 12 5 - 34 U/L [facility] ALT 7 6 - 55 U/L [facility] Specimen Blood Performing Organization Address City/[facility] Phone Number [address] [address] CENTER Hemoglobin-Stat Lab (02/02/2018 6:42 PM CDT) Hemoglobin 9.9 (L) 13.0 - 16.8 g/dL [facility] Specimen Blood, Arterial Performing Organization Address [facility] Phone Number [address] [address] CENTER Potassium-Stat Lab (02/02/2018 6:42 PM CDT)Only the most recent of3 resultswithin the time period is included. Potassium 4.2 3.6 - 5.5 meq/L [facility] Specimen Blood, Arterial Performing Organization Address [facility] Phone Number [address] [address] CENTER Sodium Na-Stat Lab (02/02/2018 6:42 PM CDT)Only the most recent of3 resultswithin the time period is included. Sodium 133 (L) 135 - 148 meq/L [facility] Specimen Blood, Arterial Performing Organization Address [facility] Phone Number [address] [address] [phone] CENTER Glucose-Stat Lab (02/02/2018 6:42 PM CDT)Only the most recent of3 resultswithin the time period is included. Glucose 134 (H) 70 - 110 mg/dL [facility] Specimen Blood, Arterial Performing Organization Address [facility] Phone Number [address] [address] [place] HEMATOCRIT-STAT LAB (02/02/2018 6:42 PM CDT) Hematocrit 29.0 (L) 40.0 - 50.0 % [facility] Specimen Blood, Arterial Performing Organization Address City/[facility] Phone Number [address] [address] [phone] [place] HGB/HCT (H&H)-Stat Lab (02/02/2018 6:42 PM CDT)Only the most recent of3 resultswithin the time period is included. Hemoglobin 9.9 (L) 13.0 - 16.8 GM/DL [facility] Hematocrit 29.0 (L) 40.0 - 50.0 % [facility] Specimen Blood, Arterial Performing Organization Address [facility] Phone Number [address] [address] [place] Blood gas, arterial (02/02/2018 6:42 PM CDT)Only the most recent of3 resultswithin the time period is included. pH, Arterial 7.37 7.35 - 7.45 [facility] pCO2, Arterial 39 35 - 45 mmHg [facility] pO2, Arterial 229 (H) 80 - 90 mmHg [facility] O2 Sat, Arterial 99.5 (H) 96.0 - 97.0 % [facility] HCO3, Arterial 22 21 - 29 mmol/L [facility] Base Excess, Arterial -3.4 (L) -2.0 - 3.0 mmol/L [facility] Patient Temperature 37.0 C [facility] Specimen Blood, Arterial Performing Organization Address City/[facility] Phone Number [address] [address] CENTER Platelet count (02/02/2018 6:42 PM CDT) Platelets 149 (L) 150 - 450 K/CU MM [facility] Specimen Blood Performing Organization Address [facility] Phone Number [address] [address] [phone] CENTER POC ACTIVATED CLOTTING TIME (02/02/2018 5:35 PM CDT)Only the most recent of9 resultswithin the time period is included. Activated Clotting Time 279Comment: TESTED AT sec [facility] [address] [place] [id number] Specimen Blood Performing Organization Address [facility] Phone Number [address] [address] CENTER Antibody identification (02/02/2018 1:43 PM CDT)Only the most recent of3 resultswithin the time period is included. ANTIBODY ID (KIMBER) Anti-E SAFETRACE [place] Antibody Consult SIGNED OUTComment: Anti E causes RBC SAFETRACE [place] injury, transfuse E negative RBCs.Electronic Signature: James oHu M.D. Performing Organization Address [facility] Number SAFETRACE [place] Type and screen, automated (02/02/2018 9:21 AM CDT)Only the most recent of3 resultswithin the time period is included. ABO/RH AUTOMATED ([facility] O POSITIVE [facility] Ab Scrn POSITIVEComment: echo 2 [facility] Specimen Blood Performing Organization Address [facility] Phone Number [address] [address] [phone] MRA extremity lower without & with IV contrast (01/28/2018 5:13 PM CDT) Narrative Performed At FINAL REPORT GE [facility] MRA of the lower extremities, 28 [...] reconstruction was performed by an independent workstation ([employer] Please refer to the contrast sheet scanned [...] CT scan. The proximal abdominal aorta is [place]. The celiac axis, SMA are patent with [...] coil embolisation procedure as per EPIC. The [place] left external iliac artery and the left [...] centimeters of the left SFA could be [place]. However, there is likely a left femoral [...] posterior tibial artery. In the right, the [place] right SFA is seen to be occluded. [...] distance, though thereafter, it is occluded. 4.The [place] left SFA is likely occluded and a left femoral to distal popliteal bypass graft is identified that is patent with no proximal or distal anastomotic stenosis. Essentially three-vessel runoff is seen in the left lower extremity. 5.In the right, the [place] right SFA is occluded. It appears patient [...] MD Report Verified Date/Time:01/28/2018 17:43:09 Reading Location: [place] [address] Cardiology MRI Procedure Note Interface, External Ris [...] reconstruction was performed by an independent workstation ([employer] Please refer to the contrast sheet scanned [...] CT scan. The proximal abdominal aorta is [place]. The celiac axis, SMA are patent with [...] coil embolisation procedure as per EPIC. The [place] left external iliac artery and the left [...] centimeters of the left SFA could be [place]. However, there is likely a left femoral [...] posterior tibial artery. In the right, the [place] right SFA is seen to be occluded. [...] though thereafter, it is occluded. 4. The [place] left SFA is likely occluded and a left femoral to distal popliteal bypass graft is identified that is patent with no proximal or distal anastomotic stenosis. Essentially three-vessel runoff is seen in the left lower extremity. 5. In the right, the [place] right SFA is occluded. It appears patient [...] Report Verified Date/Time: 01/28/2018 17:43:09 Reading Location: [place] [address] Cardiology MRI Performing Organization Address City/State/Zipcode Phone Number [facility] RIS CARDIAC CATH REPORT - SCAN (01/28/2018 3:40 PM CDT) Narrative Performed At Vein mapping arm/arms (01/28/2018 1:00 PM CDT) Ejection Fraction [facility] Impressions Performed At Right Impression [facility] 1. There is [...] + + + + + !Basilic at [facility] UA ! !0.37 ! ! !0.43 [...] PV LAB - Upper Extremities Vein Mapping [facility] Demographics Patient Name Luis Felipe MCKEON of Study 01/28/2018 DOROTEO [id number] Age 72 Visit Number [id number] GenderMale Accession Number [id number] Date of 1945 [facility] Room Number C632 Alejandro. Ryan Morelos MD, RVT Physician RPVI Procedure Type of Study: Veins: Upper Extremity Vein Mapping, VEIN MAPPING ARM/ARMS. Indications for Study:Pre-op for vein harvesting. Patient Status:Routine. Study Location:Vascular Lab. Technical Quality:Adequate visualization. - Results were reported to:CHRYSTAL Robledo @ 0923. Risk Factors History of Disease + +----+ + !Diagnosis !Date!Comments ! + +----+ + !History/Risk Factors: !!PAD, COPD, HTN, HLD, CAD, AAA ! + +----+ + Procedure Note Interface, External Ris In - 01/28/2018 2:18 PM CDT PV LAB - Upper Extremities Vein Mapping Demographics Patient Name WALTER MCKEON Date of Study 01/28/2018 DOROTEO Age 72 Visit Number [id number] Gender Male Accession Number [id number] Date of 1945 Referring Andreina Gonzales Room Number C632 Physician Rell Hot Roll Laminator Trupti Samaniego Interpreting Oral Morelos MD, RVT Physician RPVI Procedure Type of Study: Veins: Upper Extremity Vein Mapping, VEIN MAPPING ARM/ARMS. Indications for Study:Pre-op for vein harvesting. Patient Status:Routine. Study Location:Vascular Lab. Technical Quality:Adequate visualization. - Results were reported to:CHRYSTAL Robledo @ 5443. Risk Factors History of Disease + +----+ [...] + + +--- + Performing Organization Address City/State/[facility] Phone Number [facility] ECHOCARDIOGRAM REPORT - SCAN (12/11/2017 3:24 PM CDT) Narrative Performed At CARDIAC CATH REPORT - SCAN (12/11/2017 12:40 PM CDT) Narrative Performed At CARDIAC CATH REPORT - SCAN (12/10/2017 8:40 PM CDT) Narrative Performed At ECHOCARDIOGRAM REPORT - SCAN (12/10/2017 12:20 PM CDT) Narrative Performed At 2D Echo W/Doppler(CW/PW/Color) (12/10/2017 8:51 AM CDT) Ejection Fraction [facility] Narrative Performed At Transthoracic Echocardiography Report (TTE) [facility] Demographics Patient Name WALTER MCKEON Date of Study 12/10/2017 DOROTEO [id number] GenderMale Visit Number [id number] Room Number C632.2 Number Date of Birth1945Referring Physician Christian Hdz MD Age72 year(s)Hot Roll Laminator Randall Mayfield [facility] AnalysKit Oden, Alaina Pelaez [facility] Physician Procedure Type of Study TTE [...] Study 12/10/2017 DOROTEO Gender Male Visit Number [id number] Race Room Number C632.2 Number Date of 1945 Referring Physician Christian Hdz MD Age 72 year(s) Hot Roll Laminator Randall Mayfield [facility] Sheather Tabby Oden, Interpreting Alfie Pelaez [facility] Physician Procedure Type of Study TTE [...] LVOT CI: 4.17 l/min/m^2 Performing Organization Address [facility] Phone Number [facility] ECG 12 lead (12/10/2017 5:43 AM CDT) Narrative Performed At Ventricular Rate 80 BPM GE MUSE Atrial Rate 80 BPM P-R Interval 160 ms QRS Duration 92 ms Q-T Interval 394 ms QTC Calculation(Bazett) 454 ms P Rye 60 degrees R Rye -32 degrees T Rye 75 degrees Normal sinus rhythm Left axis [...] 394 ms QTC Calculation(Bazett) 454 ms P Rye 60 degrees R Rye -32 degrees T Rye 75 degrees Normal sinus rhythm Left axis deviation Nonspecific T wave abnormality Abnormal ECG No previous ECGs available Confirmed by Silvia DUPONT BASANT ([id number]) on 12/10/2017 7:41:25 PM Performing Organization Address [facility] Phone Number [employer] Leuko-Red RBC (12/09/2017 11:18 AM CDT) Unit ABO O Pos SAFETRACE TX UNIT NUMBER [id number] SAFETRACE TX Status RETURNED FROM ISSUE SAFETRACE TX Blood Bank Product RED BLOOD CELLS SAFETRACE TX PRODUCT CODE [id number] SAFETRACE TX Unit ABO O Pos SAFETRACE TX UNIT NUMBER [id number] SAFETRACE TX Status RETURNED FROM ISSUE SAFETRACE TX Blood Bank Product RED BLOOD CELLS SAFETRACE TX PRODUCT CODE [id number] SAFETRACE TX Unit ABO O Pos SAFETRACE TX UNIT NUMBER [id number] SAFETRACE TX Status RETURNED FROM ISSUE SAFETRACE TX Blood Bank Product RED BLOOD CELLS SAFETRACE TX PRODUCT CODE [id number] SAFETRACE TX Unit ABO O Pos SAFETRACE TX UNIT NUMBER [id number] SAFETRACE TX Status RETURNED FROM ISSUE SAFETRACE TX Blood Bank Product RED BLOOD CELLS SAFETRACE TX PRODUCT CODE [id number] SAFETRACE TX CROSSMATCH COMPATIBLE SAFETRACE TX CROSSMATCH COMPATIBLE SAFETRACE TX CROSSMATCH COMPATIBLE SAFETRACE TX CROSSMATCH COMPATIBLE SAFETRACE TX Specimen Other Performing Organization Address City/State/Zipcode Phone Number SAFETRACE TX Transesophageal echo (12/09/2017 7:57 AM CDT) Ejection Fraction [facility] CPA Narrative Performed At Transesophageal Echocardiography Report (UZAIR) [facility] Demographics Patient Name WALTER MCKEON Date of Study 12/09/2017 DOROTEO [id number] GenderMale Visit Number [id number] Room Number C632.2 Number Date of Birth1945Referring Physician Andreina Gonzales MD Age72 year(s)Hot Roll Laminator Abiodun CYRUS [facility] Districtyu Carmen, Physician MD Fellow Tiffanie Cohen MD Procedure Type of Study UZAIR procedure:TRANSESOPHAGEAL ECHO Indications:TAVR. Clinical History ,AAA,ANEMIA,A-FIB,CANCER,CHF,COPD,DEPRESSION,PRUITT ,DVT,GI BLEED,HLD,HTN,PVD, Height: 67 inches Weight: 79.38 kg (175 lbs) BSA: 1.91 m^2 BMI: 27.41 kg/m^2 HR: 87 bpm BP: 143/68 mmHg Procedure Informed Consent UZAIR procedure notes UZAIR performed in label remover. . Summary S/p Higgins Denilson [employer] [...] is mild to moderate AI. Mitral Valve Qdsx-yv-sisgntkv MV leaflet thickening. Mi ld mitral regurgitation. [...] Study 12/09/2017 DOROTEO Gender Male Visit Number [id number] Race Room Number C632.2 Number Date of 1945 Referring Physician Andreina Gonzales MD Age 72 year(s) Hot Roll Laminator Abiodun Maria Interpreting Spohia Carmen, Physician Fellow Tiffanie Cohen MD Procedure Type of Study UZAIR procedure:TRANSESOPHAGEAL ECHO Indications:TAVR. Clinical History ,AAA,ANEMIA,A-FIB,CANCER,CHF,COPD,DEPRESSION,PRUITT,DVT,GI BLEED,HLD,HTN,PVD, Height: 67 inches Weight: 79.38 kg (175 lbs) BSA: 1.91 m^2 BMI: 27.41 kg/m^2 HR: 87 bpm BP: 143/68 mmHg Procedure Informed Consent UZAIR procedure notes UZAIR performed in label remover. . Summary S/p Higgins Denilson [employer] [...] is mild to moderate AI. Mitral Valve Jeut-gs-kjerecmy MV leaflet thickening. Mild mitral regurgitation. No stenosis. Tricuspid Valve Mild thickening, , mild to moderate TR in limited views. Pulmonic Valve Not well visualized. Aorta Aortic root size (SInus of Valsalva diameter) is normal . Pericardium No significant pericardial effusion is visualized. IVC/SVC/PA/PV/Pleural Not well visualized. Performing Organization Address City/State/Zipcode Phone Number [facility] CARDIAC CATH REPORT - SCAN (12/07/2017 8:10 PM CDT) Narrative Performed At B-type Natriuretic Factor (BNP) (11/26/2017 4:41 PM CDT) BNP 142 (H) 0 - 100 pg/mL [facility] Specimen Blood Performing Organization Address City/State/Zipcode Phone Number [facility] [address] [place] [address] CENTER CTA chest (11/26/2017 12:56 PM CDT) Narrative Performed At Addendum Begins [facility] REPORT STATUS:A Addendum: The images were reviewed with Dr. Hdz. There is a missing dictation, specifically, despite the aortic bypass surgery the [place] left common iliac artery is still patent [...] MD Report Verified Date/Time:11/27/2017 11:56:33 Reading Location: [place] [address] Cardiology MRI Addendum Ends Addendum Begins REPORT [...] MD Report Verified Date/Time:11/26/2017 18:03:42 Reading Location: [place] [id number] Angio Body Reading Room Addendum Ends FINAL [...] takeoff of the left renal artery with orhu-rl-skiqdqbh stenosis identified. Arch vessel branching pattern is [...] and 8.2 mm, respectively with mildtortuosity and bzfn-nt-fweuiiwdomsacmkv atherosclerosis present. Right iliac limb is patent. [...] dictated, however, the ordering physician is the NEON TECHNICIAN IGNITER CAPPER of the [facility] and therefore no recommendation would be necessary. [...] 4.An addendum will be dictated by the Subcontracts Manager Radiologist regarding the nonvascular findings. Signed: Juwan Ramirez MD Report Verified Date/Time:11/26/2017 16:25:25 Reading Location: [place] [address] Cardiology MRI Procedure Note Interface, External Ris In - 11/27/2017 11:58 AM CDT Addendum Begins REPORT STATUS:A Addendum: The images were reviewed with Dr. Hdz. There is a missing dictation, specifically, despite the aortic bypass surgery the [place] left common iliac artery is still patent [...] Report Verified Date/Time: 11/27/2017 11:56:33 Reading Location: [place] [address] Cardiology MRI Addendum Ends Addendum Begins REPORT [...] Report Verified Date/Time: 11/26/2017 18:03:42 Reading Location: [place] [address] Angio Body Reading Room Addendum Ends FINAL [...] takeoff of the left renal artery with irhg-nb-ccjrslue stenosis identified. Arch vessel branching pattern is [...] 8.2 mm, respectively with mild tortuosity and ghpz-fn-jfzrjldg calcific atherosclerosis present. Right iliac limb is [...] dictated, however, the ordering physician is the NEON TECHNICIAN IGNITER CAPPER of the [facility] and therefore no recommendation would be necessary. [...] An addendum will be dictated by the Subcontracts Manager Radiologist regarding the nonvascular findings. Signed: Juwan Ramirez MD Report Verified Date/Time: 11/26/2017 16:25:25 Reading Location: [place] [address] Cardiology MRI Performing Organization Address City/State/Zipcode Phone Number [facility] CTA abdomen & pelvis (11/26/2017 12:56 PM CDT) Narrative Performed At Addendum Begins [facility] RIS REPORT STATUS:A Addendum: The images were reviewed with Dr. Hdz. There is a missing dictation, specifically, despite the aortic bypass surgery the [place] left common iliac artery is still patent [...] MD Report Verified Date/Time:11/27/2017 11:56:33 Reading Location: [place] [address] Cardiology MRI Addendum Ends Addendum Begins REPORT [...] MD Report Verified Date/Time:11/26/2017 18:03:42 Reading Location: [place] [address] Angio Body Reading Room Addendum Ends FINAL [...] takeoff of the left renal artery with siey-dw-dcgsjhoy stenosis identified. Arch vessel branching pattern is [...] and 8.2 mm, respectively with mildtortuosity and tziz-hf-lbvipbfgorvglqmc atherosclerosis present. Right iliac limb is patent. [...] dictated, however, the ordering physician is the NEON TECHNICIAN IGNITER CAPPER of the [facility] and therefore no recommendation would be necessary. [...] 4.An addendum will be dictated by the Subcontracts Manager Radiologist regarding the nonvascular findings. Signed: Juwan Ramirez MD Report Verified Date/Time:11/26/2017 16:25:25 Reading Location: [place] [address] Cardiology MRI Procedure Note Interface, External Ris In - 11/27/2017 11:58 AM CDT Addendum Begins REPORT STATUS:A Addendum: The images were reviewed with Dr. Hdz. There is a missing dictation, specifically, despite the aortic bypass surgery the [place] left common iliac artery is still patent [...] Report Verified Date/Time: 11/27/2017 11:56:33 Reading Location: [place] [address] Cardiology MRI Addendum Ends Addendum Begins REPORT [...] Report Verified Date/Time: 11/26/2017 18:03:42 Reading Location: [place] [address] Angio Body Reading Room Addendum Ends FINAL [...] takeoff of the left renal artery with wylb-oq-dnckigkv stenosis identified. Arch vessel branching pattern is [...] 8.2 mm, respectively with mild tortuosity and chjj-yr-iiokzlhn calcific atherosclerosis present. Right iliac limb is [...] dictated, however, the ordering physician is the NEON TECHNICIAN IGNITER CAPPER of the [facility] and therefore no recommendation would be necessary. [...] An addendum will be dictated by the Subcontracts Manager Radiologist regarding the nonvascular findings. Signed: Juwan Ramirez MD Report Verified Date/Time: 11/26/2017 16:25:25 Reading Location: [place] [id number] Cardiology MRI Performing Organization Address City/State/[facility] Phone Number [facility] RIS POC-Creatinine (11/26/2017 11:51 AM CDT) POC-Creatinine 1.1Comment: TESTED AT 0.6 - 1.3 mg/dL [facility] [address] [place] [address] POC-EGFR 65 mL/min/1.73M2 [facility] Specimen Blood Performing Organization Address City/[facility] Phone Number [address] [address] CENTER after 10/01/2017 Insurance Payer Benefit Plan / Group Subscriber ID Type Phone Address MEDICARE MEDICARE A B xxxxxxxxxx Medicare Advance Directives For more information, please contact:[address] [phone] Code Status Date Activated Date Inactivated Comments [...]
--- OUTSIDE RECORDS SUMMARY | 2018-10-02 16:38 | XMS REPORT | Continuity of Care Document ---
:1945 Author Organization Interface Problems Problem Status Onset Classification Date Comments Source Date Reported AAA Active Finding 10/25/[address] [facility] [place] Anemia Active Finding 10/25/[address] [facility] [place] Hypercoagulable Active Finding 10/25/[address] [facility] [place] Fever Active Finding 10/25/[address] [facility] [place] History of subdural Active Finding 10/25/[address] [facility] hematoma [facility]16 [facility] [place] Chronic Active Finding 10/25/[address] [facility] anticoagulation [facility]16 [facility] [place] Hyponatremia Active Finding 10/25/[address] [facility] [place] Chronic renal Active Finding 10/25/[address] [facility] disease [facility]16 [facility] [place] Peripheral vascular Active Finding 10/25/[address] [facility] disease [facility] [place] Chronic pain Active Finding 10/25/[address] [facility] disorder [facility]16 [facility] [place] COPD Active Finding 10/25/[address] [facility] [facility] [place] Hypertension Active Finding 10/25/[address] [facility] [place] Hyperkalemia Active Finding 10/25/[address] [facility] [facility] [place] Hypomagnesemia Active Finding 10/25/[address] [facility] [facility] [place] SARAH BILLING Active [address] SDH Active [address] Elevated troponin Active Finding 10/25/[address] [facility] [facility] [place] Colitis Active Finding 10/25/[address] [facility] [place] Lower Active Finding 10/25/[address] [facility] gastrointestinal [facility]16 [facility] [place] AAA (<span Resolved Problem 06/02/2016 [place] ID="[id number]">C Medical onfirmed</span>) Center COPD (<span Resolved Problem 06/02/2016 [place] ID="[id number]">C Medical onfirmed</span>) Center HTN (<span Resolved Problem 06/02/2016 [place] ID="[id number]">C Medical onfirmed</span>) Center Subdural hematoma 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/02/2016 [facility] Bleeding on Active Finding 10/25/[address] [facility] [facility] [place] Hematoma Active Finding 10/25/[address] [facility] [place] Factor V Leiden Active Finding 10/25/[address] [facility] [place] Gastritis Active Finding 10/25/[address] [facility] [place] CAD of artery Active Finding 10/25/[address] [facility] [address] bypass graft [facility] [place] Anemia associated Active Finding 10/25/[address] [facility] [address] with acute blood [facility] [place] Esophageal Active Finding 10/25/[address] [facility] stricture [facility] [place] Hiatal hernia with Active Finding 10/25/[address] [facility] [address] GERD [facility] [place] Severe aortic Active Finding 10/25/[address] [facility] stenosis [facility] [place] Rectus sheath Active Finding 10/25/[address] [facility] [address] hematoma [facility] [place] Persistent cough Active Finding 10/25/[address] [facility] [place] Factor V Leiden Active Finding 10/25/[address] [facility] mutation [facility] [place] NONTRAUMATIC Active [employer] SUBDURAL [facility] HEMORRHAGE, [facility] Center Medications Medication Details Route Status Patient Ordering Order Source Instructions Provider Date Warfarin Sodium DAILY Active [facility] 2018 [facility] [place] Fentanyl SEE COMMENT Active [facility] St[facility] 2018 [facility] [place] Warfarin Sodium DAILY Active [facility] St[facility] 2018 [facility] [place] Trizonidone SEE COMMENT PRN Active [facility] St[facility] For Anxiety 2018 [facility] [place] Pantoprazole TWICE DAILY Active Prezas [facility] St[facility] 2018 [facility] [place] Hydrocodone Q6H Active Prezas [facility] St. 10/Apap 325 2018 [facility] [place] Lisinopril DAILY Active Preza [facility] St[facility] 2018 [facility] [place] Lisinopril DAILY Active [facility] St[facility] 2018 [facility] [place] Fluticasone/Juanis DAILY Active [place] [facility] St[facility] nterol 2018 [facility] [place] Primidone DAILY Active [facility] St[facility] 2018 [facility] [place] Topiramate DAILY Active [facility] St[facility] 2018 [facility] [place] Aspirin DAILY Active [facility] St[facility] 2018 [facility] [place] Atorvastatin AT BEDTIME Active [facility] St[facility] Calcium 2018 [facility] [place] Fluticasone/Juanis DAILY Active [facility] St[facility] nterol 2018 [facility] [place] Lisinopril DAILY Active [facility] St[facility] 2016 [facility] [place] Potassium TWICE DAILY Active [facility] St[facility] Chloride 2016 [facility] [place] Cyanocobalamin DAILY Active [facility] St[facility] (Vitamin B-12) 2016 [facility] [place] Omeprazole NEEDED PRN Active [facility] St[facility] For Gastric 2016 [facility] [place] [place] Indigestion Warfarin Sodium 5 mg=1 tab, PO, Active [place] 5 MG Oral Tablet Daily, INR goal 2016 Medical [Coumadin] 2-3, # 30 tab, Center 0 Refill(s) tamsulosin 0.4 0.8 mg=2 cap, Active [place] mg oral capsule PO, Daily, 0 2016 Medical Refill(s) Center Levetiracetam 1,500 mg=3 tab, Active [place] 500 MG Oral PO, [id number], # 2016 Medical Tablet 90 tab, 0 Center Refill(s) Docusate Sodium 100 mg=1 cap, Active [place] 100 MG Oral PO, Q12H, # 20 2016 Medical Capsule cap, 0 Center Refill(s) phenol 1 spray, Route: No Longer [place] TOP, TID, Drug Active 2015 Medical form: SPRY, PRN Center Sore Throat, Start date: 05/29/16 22:35:00 CDT, Duration: 30 day, Stop date: 06/28/16 22:34:00 CSTNotes: Chloraseptic [place] (Same as: Chloraseptic, Sore Throat [place]) WASTE: F/P - Black; E - Municipal Trash Bin Coumadin 5 mg, 1 tab, Inactive [place] Route: PO, Drug 2015 Medical form: TAB, Center ONCE, Dosing Weight 76.36, kg, Start date: 05/29/16 21:30:00 CDT, Stop date: 05/29/16 21:30:00 CDT Warfarin 5 mg, 1 tab, Inactive [employer] Route: PO, Drug 2015 Medical form: TAB, Center Q5PM, Dosing Weight 76.36, kg, Start date: 05/29/16 17:00:00 CDT, Duration: 1 doses or times, Stop date: 05/29/16 17:00:00 CDT Labetalol 200 mg, 1 tab, No Longer [employer] Route: PO, Drug Active 2015 Medical form: TAB, Q8H, Center Dosing Weight 76.36, kg, Start date: 05/29/16 9:44:00 CDT, Duration: 30 day, Stop date: 06/28/16 8:00:00 CSTNotes: With food. (Same as:Trandate, Normodyne) Keppra 1,500 mg, 3 No Longer [employer] tab, Route: PO, Active 2016 Medical Drug form: TAB, Center [id number], Start date: 05/29/16 6:00:00 CDT, Duration: 30 day, Stop date: 06/27/16 18:00:00 CSTNotes: (Same as:Keppra) Coumadin 5 mg, 1 tab, Inactive [employer] Route: PO, Drug 2015 Medical form: TAB, Center Q5PM, Start date: 05/28/16 17:00:00 CDT, Duration: 1 [...] 2015 Medical 0.1 MG Oral form: TAB, Center Tablet Q12H, Dosing Weight 76.36, kg, Priority: NOW, Start date: 05/28/16 10:30:00 CDT, Duration: 30 day, Stop date: 06/27/16 9:00:00 CSTNotes: (Same As: Catapres) Miralax 17 gm, Route: No Longer [facility] PO, Daily, Active 2015 Medical Dosing Weight Center 76.36, kg, Start date: 05/28/16 9:00:00 CDT, Duration: 30 day, Stop date: 06/26/16 9:00:00 PIN MAKER Remeron 7.5 mg, 1 tab, No Longer [place] Route: PO, Drug Active 2015 Medical form: TAB, Center Bedtime, Dosing Weight 76.36, kg, Start date: 05/27/16 21:00:00 CDT, Duration: 30 day, Stop date: 06/25/16 21:00:00 CSTNotes: (Same as:Remeron) ibuprofen 100 600 mg, 30 mL, No Longer [place] mg/5 mL oral Route: PO, Drug Active 2015 Medical suspension form: SUSP, Center Q6H, Dosing Weight 76.36, kg, Start date: 05/27/16 15:00:00 CDT, Duration: 30 day, Stop date: 06/26/16 12:00:00 CSTNotes: (Same as: Motrin Children's, Advil Children's) Take with food. Duragesic-100 1 patch, Route: No Longer [facility] TOP, Drug form: Active 2016 Medical ERFILM, Q48H, Center Start date: 05/27/16 13:00:00 CDT, Duration: 30 day, Stop date: 06/24/16 13:00:00 CSTNotes: (Same as: Duragesic) Check for product integrity. Apply to intact skin "Remove old patch before application of new patch" Ibuprofen 600 mg, 30 mL, Inactive [place] Route: PO, Drug 2015 Medical form: SUSP, Center Q6H, Dosing Weight 76.36, kg, Start date: 05/27/16 12:00:00 CDT, Stop date: 06/26/16 6:00:00 CSTNotes: (Same as: Motrin Children's, Advil Children's) Take with food. 72 HR Fentanyl 1 patch, Route: Inactive [facility] 0.1 MG/HR TOP, Dosing 2016 Medical Transdermal Weight 76.36, Center Patch kg, Daily, Start date: 05/27/16 9:00:00 CDT, Duration: 30 day, Stop date: 06/25/16 9:00:00 PIN MAKER Lisinopril 40 mg, Route: Inactive [facility] PO, Drug form: 2016 Medical TAB, Daily, Center Dosing Weight 76.36, kg, Start date: 05/27/16 9:00:00 CDT, Duration: 30 day, Stop date: 06/25/16 9:00:00 PIN MAKER Miralax 17 gm, 1 pkt, No Longer [place] Route: PO, Drug Active 2015 Medical form: PWDR, Center Daily, Dosing Weight 76.36, kg, Start date: 05/27/16 9:00:00 CDT, Duration: 30 day, Stop date: 06/25/16 9:00:00 CSTNotes: Dissolve in 8 oz of water or juice. (Same as: Miralax) remove patch 1 patch, Route: No Longer [facility] TOP, Drug form: Active 2016 Medical ERFILM, Daily, Center Start date: 05/27/16 9:00:00 CDT, Duration: 30 day, Stop date: 06/25/16 9:00:00 CSTNotes: Remove old patch before application of new patch. WASTE: F/P - P Waste Black; E - P Waste Black Keppra 2,000 mg, Inactive [facility] Route: IVPB, 2016 Medical ONCE, Dosing Center Weight 76.36, kg, Loading Dose, Priority: STAT, Start date: 05/27/16 7:25:00 CDT, Duration: 1 doses or times, Stop date: 05/27/16 7:25:00 CDTNotes: Same as Keppra Mix with 100 mL NS, LR or D5W MEDICATION WASTE Product Size: 500 mg Product Wasted: ___ mg Keppra 1,500 mg, No Longer [place] Route: IVPB, Active 2015 Medical Q12H, Dosing Center Weight 76.36, kg, Start date: 05/27/16 4:00:00 CDT, Duration: 30 day, Stop date: 06/25/16 16:00:00 CSTNotes: Same as Keppra Mix with 100 mL NS, LR or D5W MEDICATION WASTE Product Size: 500 mg Product Wasted: ___ mg Hydralazine 20 mg, 1 mL, No Longer [place] Route: IV, Drug Active 2015 Medical form: [...] as: Prinivil, Zestril) Fentanyl 25 microgram, Inactive [place] 0.5 mL, Route: 2016 Medical IV, Drug [...] Albuterol 0.833 3 mL, Route: No Longer [facility] MG/ML / NEB, Drug Form: Active 2016 Medical Ipratropium SOLN, Dosing Center [place] 0.167 Weight 76.36, MG/ML Inhalant kg, Q4H, PRN Solution Respiratory [DuoNeb] Protocol, Start date: 05/26/16 16:26:00 CDT, Duration: 30 day, Stop date: 06/25/16 16:25:00 CSTNotes: (Same as: Duoneb) mirtazapine 7.5 7.5 mg=1 tab, Active [place] mg oral tablet PO, Bedtime, # 2016 Medical 30 tab, 1 Center Refill(s) Eszopiclone 1 MG 1 mg=1 tab, PO, Active [place] Oral Tablet Bedtime, PRN 2016 Medical [Lunesta] for insomnia, # Center 30 tab, 0 Refill(s) Trazodone 50 mg=1 tab, No Longer [place] Hydrochloride 50 PO, TID, # 90 Active 2016 Medical MG Oral Tablet tab, 0 Center Refill(s) Acetaminophen 1 tab, PO, TID, Active [place] 325 MG / PRN Pain, # 60 2016 Medical Hydrocodone tab, 0 Center Bitartrate 10 MG Refill(s) Oral Tablet [[place] [address]] lisinopril 40 mg 40 mg=1 tab, Active [place] oral tablet PO, Daily, 0 2016 Medical Refill(s) Center 12 HR Clonidine 0.1 mg=1 tab, Active [place] Hydrochloride PO, Bedtime, # 2016 Medical 0.1 MG Extended 30 tab, 0 Center Release Tablet Refill(s) 72 HR Fentanyl 1 patch, TOP, Active [place] 0.1 MG/HR Q48H, # 15 2016 Medical Transdermal patch, 0 Center Patch Refill(s) [Duragesic] Warfarin Sodium 4 mg=1 tab, PO, No Longer [place] 4 MG Oral Tablet Daily, # 30 Active 2016 Medical [Coumadin] tab, 0 Center Refill(s) Breo Ellipta 100 1 puff, Active [place] mcg-25 mcg INHALATION, 2016 Medical inhalation Daily, 0 Center powder Refill(s) Vitamin B12 100 100 microgram=1 Active [place] mcg oral tablet tab, PO, Daily, 2016 Medical # 30 tab, 0 Center Refill(s) primidone 50 mg 50 mg=1 tab, Active [place] oral tablet PO, BID, # 60 2016 Medical tab, 0 Center Refill(s) tizanidine 4 MG 8 mg=2 tab, PO, Active [place] Oral Tablet Q8H, # 180 tab, 2016 Medical [Zanaflex] 0 Refill(s) Center Aspirin 81 MG 81 mg=1 tab, No Longer [place] Enteric Coated PO, Daily, # 90 Active 2016 Medical Tablet tab, 3 Center Refill(s) Vitamin D3 400 400 IntlUnit=1 Active [place] intl units oral cap, PO, Daily, 2016 Medical capsule 0 Refill(s) Center 200 ACTUAT 2 puff, Active [place] Albuterol 0.09 INHALER, Q6H, 2016 Medical MG/ACTUAT PRN for Center Metered Dose wheezing, # 8.5 Inhaler [ProAir gm, 0 Refill(s) HFA] Keppra 1,000 mg, Inactive [place] Route: IV, 2016 Medical ONCE, Dosing Center Weight 76.36, kg, Priority: STAT, Start date: 05/26/16 12:59:00 CDT, Stop date: 05/26/16 12:59:00 CDTNotes: Same as Keppra Mix with 100 mL NS, LR or D5W MEDICATION WASTE Product Size: 500 mg Product Wasted: ___ mg Hydralazine 10 mg, 0.5 mL, No Longer [facility] Route: IV, Drug Active 2015 Medical form: INJ, Q6H, Center Dosing Weight 76.36, kg, PRN Hypertension, Priority: NOW, Start date: 05/26/16 10:14:00 CDT, Duration: 30 day, Stop date: 06/25/16 10:13:00 CSTNotes: (Same as: Apresoline) Push over 5 minutes Nicotine 14 mg, 1 patch, No Longer [place] Route: TOP, Active 2015 Medical Drug form: Center ERFILM, Daily, Dosing Weight 76.36, kg, Start date: 05/26/16 9:00:00 CDT, Duration: 30 day, Stop date: 06/24/16 9:00:00 CSTNotes: (Same as: Habitrol) "Remove old patch before application of new patch" WASTE: F/P - P Waste Black; E - P Waste Black Keppra + sodium 500 mg, Route: Inactive [facility] chloride 0.9% IVPB, ONCE, 2016 Medical INJ 100 mL Start date: [place] 05/26/16 1:57:00 CDT, Stop date: 05/26/16 1:57:00 CDTNotes: Same as Keppra Mix with 100 mL NS, LR or D5W MEDICATION WASTE Product Size: 500 mg Product Wasted: __0_ mg Keppra 500 mg, Route: Inactive [facility] IVPB, Q24H, 2015 Medical Dosing Weight Center 76.36, kg, Priority: STAT, Start date: 05/26/16 1:28:00 CDT, Duration: 30 day, Stop date: 06/24/16 1:28:00 PIN MAKER sodium chloride 1,000 mL, Rate: No Longer [place] 0.9% 1000 ml INJ 50 ml/hr, Active 2015 Medical 1,000 mL Infuse over: 20 Center hr, Route: IV, Dosing Weight 76.36 kg, Total Volume: 1,000, Start date: 05/25/16 21:30:00 CDT, Duration: 30 day, Stop date: 06/24/16 21:29:00 PIN MAKER Acetaminophen 1 tab, Route: No Longer [place] 325 MG / PO, Drug Form: Active 2015 Medical Hydrocodone TAB, Dosing Center Bitartrate 5 MG Weight 76.36, Oral Tablet kg, Q4H, PRN [[place] 5/325] Pain Score 6-10, Start date: 05/25/16 20:00:00 CDT, Stop date: 06/24/16 16:00:00 CSTNotes: (Same as: [place] 325/5) Do not exceed 4gm/day of acetaminophen. [...] mL, Inactive [facility] MG/ML Inhalant Route: NEB, 2015 Medical Solution Drug form: Center SOLN, Q20Min, Dosing Weight 76.36, kg, PRN Wheezing, Priority: STAT, Start date: 05/25/16 16:04:00 CDT, Stop date: 05/26/16 0:00:00 CDTNotes: SEE RT DOCUMENTATION (Same as: Proventil) Ancef + sodium 2 gm, Route: No Longer [facility] chloride 0.9% IVPB, ABXQ8H, Active 2015 Medical INJ 100 mL Dosing Weight Center 76.36, kg, Start date: 05/25/16 16:00:00 CDT, Stop date: 05/26/16 15:35:00 CDTNotes: (Same As: Anckayode Kefzol) MEDICATION WASTE Product Size: 1000 mg Product Wasted: ___ mg Ondansetron 4 mg, 2 mL, Inactive [facility] Route: IVP, 2015 Medical Drug form: INJ, Center ONCE, Dosing Weight 76.36, kg, PRN Nausea & Vomiting, Start date: 05/25/16 15:57:00 CDTNotes: (Same as: Zofran) MEDICATION WASTE Product Size: 4 mg Product Wasted: ___ mg Hydromorphone 0.5 mg, 0.25 Inactive [place] mL, Route: IVP2015 Medical Drug form: INJ, Center Q5Min, Dosing Weight 76.36, kg, PRN Pain Score 7-10, Start date: 05/25/16 15:57:00 CDT, Duration: 4 doses or times, Stop date: 05/26/16 0:00:00 CDTNotes: (Same as: Dilaudid) Naloxone 0.4 mg, 1 mL, Inactive [employer] Route: IV2015 Medical Drug form: INJ, Center Q2MIN, Dosing Weight 76.36, kg, PRN Narcotic Reversal, Start date: 05/25/16 15:57:00 CDT, Duration: 8 doses or times, Stop date: 05/26/16 0:00:00 CDTNotes: Same as Narcan Flumazenil 0.2 mg, 2 mL, Inactive [employer] Route: IV2015 Medical Drug form: INJ, Center PRN, Dosing Weight 76.36, kg, PRN Benzodiazepine Reversal, Initial dose, Start date: 05/25/16 15:57:00 CDT, Stop date: 05/26/16 0:00:00 CDTNotes: (Same as: Romazicon) Labetalol 10 mg, 2 mL, Inactive [employer] Route: IV2015 Medical Drug form: INJ, Center Q5Min, Dosing Weight 76.36, kg, PRN Elevated BP, Start date: 05/25/16 15:57:00 CDT, Duration: 5 doses or times, Stop date: 05/26/16 0:00:00 CDT Metoprolol 1 mg, 1 mL, Inactive [employer] Route: IV2015 Medical Drug form: INJ, Center Q5Min, Dosing Weight 76.36, kg, PRN Other -See Comment, Start date: 05/25/16 15:57:00 CDT, Duration: 5 doses or times, Stop date: 05/26/16 0:00:00 CDTNotes: (Same as: Lopressor) Push over 2 minutes Sodium Chloride 1,000 mL, Rate: Inactive [place] 0.154 MEQ/ML 125 ml/hr, 2015 Medical Injectable Infuse over: 8 Center Solution hr, Route: IV, Dosing Weight 76.36 kg, Total Volume: 1,000, Start date: 05/25/16 15:57:00 CDT, Duration: 30 day, Stop date: 06/24/16 15:56:00 PIN MAKER Ancef 2 gm, Route: Inactive [place] IVPB, ONCE, 2016 Medical Dosing Weight Center 76.36, kg, Start date: 05/25/16 14:15:00 CDT, Duration: 1 doses or times, Stop date: 05/25/16 14:15:00 CDT Streptococcus 0.5 mL, Route: Inactive [place] pneumoniae IM, Drug Form: 2015 Medical serotype 1 INJ, Daily, Center capsular antigen Start date: diphtheria 05/25/16 [id number] protein 9:00:00 CDT, conjugate Duration: 1 vaccine / doses or times, Streptococcus Stop date: pneumoniae 05/25/16 serotype 14 9:00:00 capsular antigen CDTNotes: diphtheria Lightly roll [id number] protein vial (DO NOT conjugate SHAKE) before vaccine / administration. Streptococcus (Same as: pneumoniae Prevnar 13) serotype 18C capsular antigen d Vitamin K1 + 10 mg, 1 mL, No Longer [place] sodium chloride Route: IVPB, Active 2015 Medical 0.9% INJ 50 mL Daily, Dosing Center Weight 76.36, kg, Start date: 05/25/16 9:00:00 CDT, Duration: 3 doses or times, Stop date: 05/27/16 9:00:00 CDTNotes: (Same as: Aqua-Mephyton, Vitamin K) MEDICATION WASTE Product Size: 10 mg Product Wasted: ___ mg Saline Flush 10 ml, Route: No Longer [place] 0.9% IVP, Drug Form: Active 2015 Medical INJ, Dosing Center Weight 76.364, kg, Q12H, Start date: 05/25/16 9:00:00 CDT, Duration: 30 day, Stop date: 06/23/16 21:00:00 CSTNotes: (Same as: BD Posiflush) Levetiracetam 1,500 mg, 3 No Longer [place] tab, Route: PO, Active 2015 Medical Drug form: TAB, Center Q12H, Dosing Weight 76.364, kg, Start date: 05/25/16 9:00:00 CDT, Stop date: 06/23/16 21:00:00 CSTNotes: (Same as:Kathryn) Docusate 100 mg, 1 cap, No Longer [place] Route: PO, Drug Active 2015 Medical form: CAP, Center Q12H, Dosing Weight 76.364, kg, Start date: 05/25/16 9:00:00 CDT, Duration: 30 day, Stop date: 06/23/16 21:00:00 CSTNotes: (Same as: Colace) (Do Not Crush) sennosides, NURSING HOME 8.6 mg, 1 tab, No Longer [place] Route: PO, Drug Active 2015 Medical Form: TAB, Center Dosing Weight 76.364, kg, Q12H, Start date: 05/25/16 9:00:00 CDT, Duration: 30 day, Stop date: 06/23/16 21:00:00 CSTNotes: (Same as: [place]) Flomax 0.8 mg, 2 cap, No Longer [place] Route: PO, Drug Active 2015 Medical form: CAP, Center Daily, Dosing Weight 76.36, kg, Priority: NOW, Start date: 05/25/16 6:11:00 CDT, Duration: 30 day, Stop date: 06/23/16 9:00:00 CSTNotes: (Same As: Flomax) "Do Not Crush" Dexamethasone 6 mg, 1.5 mL, Inactive [place] Route: IV, Drug 2015 Medical form: INJ, Center ONCE, Dosing Weight 76.36, kg, Priority: NOW, Start date: 05/25/16 5:39:00 CDT, Stop date: 05/25/16 5:39:00 CDTNotes: Concentration: 4mg/ml Mannitol 100 gm, 500 mL, Inactive [place] Route: IVPB, 2015 Medical Drug form: INJ, Center ONCE, Dosing Weight 76.36, kg, Priority: NOW, Start date: 05/25/16 5:16:00 CDT, Stop date: 05/25/16 5:16:00 CDTNotes: (Same as: Osmitrol) Infuse through 5 micron or smaller filter WASTE: F/P - Sink; E - Municipal Trash Bin Vitamin K1 + 10 mg, 1 mL, Inactive [place] sodium chloride Route: IVPB2015 Medical 0.9% INJ 50 mL ONCE, Dosing Center Weight 76.364, kg, Priority: NOW, Start date: 05/25/16 0:23:00 CDT, Stop date: 05/25/16 0:23:00 CDTNotes: (Same as: Aqua-Mephyton, Vitamin K) MEDICATION WASTE Product Size: 10 mg Product Wasted: ___ mg Magnesium Oxide 800 mg, 2 tab, No Longer [facility] Route: PO, Drug Active 2015 Medical form: TAB, PRN, Center Dosing Weight 76.364, kg, PRN Abnormal Lab Result, FOR ICU USE ONLY, Start date: 05/24/16 23:11:00 CDT, Duration: 30 day, Stop date: 06/23/16 22:10:00 CSTNotes: (Same as: Mag-Ox 400) Magnesium oxide [id number] elemental magnesium Dose=____mg magnesium oxide (___mg elemental magnesium) Magnesium 2 gm, 50 mL, No Longer [facility] Sulfate Route: IVPB, Active 2015 Medical Drug form: INJ, Center PRN, Dosing Weight 76.364, kg, PRN Abnormal Lab Result, Start date: 05/24/16 23:11:00 CDT, Duration: 30 day, Stop date: 06/23/16 22:10:00 PIN MAKER, FOR ICU USE ONLYNotes: WASTE: F/P - Sink; E - Municipal Trash Bin Calcium 500 mg, 1 tab, No Longer [place] Carbonate 500 MG Route: PO, Drug Active 2015 Medical Chewable Tablet form: CHEWTAB, Center PRN, Dosing Weight 76.364, kg, PRN Abnormal Lab Result, FOR ICU USE ONLY, Start date: 05/24/16 23:11:00 CDT, Duration: 30 day, Stop date: 06/23/16 22:10:00 CSTNotes: (Same As: Tums) Calcium Carbonate 500 oh=938 mg elemental calcium Dose= mg calcium carbonate ( mg elemental calcium) Calcium 1 gm, 10 mL, No Longer [place] Gluconate Route: IVPB, Active 2015 Medical PRN, Dosing Center Weight 76.364, kg, PRN Abnormal Lab Result, Start date: 05/24/16 23:11:00 CDT, Duration: 30 day, Stop date: 06/23/16 22:10:00 PIN MAKER, FOR ICU USE ONLYNotes: WASTE: F/P - [...] potassium 30 mmol, 10 mL, No Longer [place] phosphate + Route: IVPB, Active 2015 Medical sodium chloride PRN, Dosing Center 0.9% INJ 250 mL Weight 76.364, kg, PRN Abnormal Lab Result, Start date: 05/24/16 23:11:00 CDT, Duration: 30 day, Stop date: 06/23/16 22:10:00 PIN MAKER, FOR ICU USE ONLYNotes: (Same as: K Phosphate.) 1 mMol phoshate has 1.47 mEq potassium Infuse over 4 hours sodium phosphate 45 mmol, 15 mL, No Longer [place] + sodium Route: IVPB, Active 2015 Medical chloride 0.9% PRN, Dosing Center INJ 250 mL Weight 76.364, kg, PRN Abnormal Lab Result, Start date: 05/24/16 23:11:00 CDT, Duration: 30 day, Stop date: 06/23/16 22:10:00 PIN MAKER, FOR ICU USE ONLY potassium 10 mEq, 50 mL, No Longer [facility] chloride Route: IVPB, Active 2015 Medical Drug form: INJ, Center PRN, Dosing Weight 76.364, kg, PRN Abnormal Lab Result, Via peripheral line, Start date: 05/24/16 23:11:00 CDT, Duration: 30 day, Stop date: 06/23/16 22:10:00 PIN MAKER, FOR ICU USE ONLYNotes: (Same as: KCL) Infuse over 2 hours. iodixanol 60 mL, Route: Inactive [facility] IVP, Drug Form: 2015 Medical SOLN, Dosing Center Weight 76.364, kg, ONCALL, STAT, Start date: 05/24/16 22:50:00 CDT, Duration: 1 doses or times, Dose=2.2ml/kg, Max [id number] -- "To be infused by Radiology Staff ONLY" Regular Insulin, 7 unit, 0.07 No Longer [facility] Human 100 UNT/ML mL, Route: Active 2015 Medical Injectable SUB-Q, Drug Center Solution form: SOLN, PRN, Dosing Weight 76.364, kg, PRN Abnormal Lab Result, Start date: 05/24/16 22:17:00 CDT, Duration: 30 day, Stop date: 06/23/16 21:16:00 CSTNotes: (Same as: Humulin R) Roll in palms of hands gently; Do not shake vigorously. "single patient use only" (Restricted to patients requiring a dose > 60 units) WASTE: F/P - Black; E - [place] Trash Bin Stable for 28 days at room temperature Expires in days from D ate Dextrose 50% 6.25 gm, 12.5 No Longer [facility] Syringe mL, Route: IVP, Active 2015 Medical Drug Form: INJ, Center Dosing Weight 76.364, kg, PRN, PRN Abnormal Lab Result, Start date: 05/24/16 22:17:00 CDT, Duration: 30 day, Stop date: 06/23/16 21:16:00 PIN MAKER Saline Flush 10 ml, Route: No Longer [facility] 0.9% IVP, Drug Form: Active 2015 Medical INJ, Dosing Center Weight 76.364, kg, PRN, PRN Line Flush, Start date: 05/24/16 22:17:00 CDT, Duration: 30 day, Stop date: 06/23/16 21:16:00 CSTNotes: (Same as: BD Posiflush) Bisacodyl 10 mg, 1 supp, No Longer [place] Route: MO, Drug Active 2015 Medical form: SUPP, Center Daily, Dosing Weight 76.364, kg, PRN Constipation, Start date: 05/24/16 22:17:00 CDT, Duration: 30 day, Stop date: 06/23/16 22:16:00 CSTNotes: (Same As: Dulcolax, Bisco-Lax) Ondansetron 4 mg, 2 mL, No Longer [place] Route: IVP, Active 2015 Medical Drug form: INJ, Center Q8H, Dosing Weight 76.364, kg, PRN Nausea & [...] not exceed 4gm/day of acetaminophen. (Same as: [place] 325/10) Levetiracetam 1,000 mg, No Longer [place] Route: IVPB, Active 2015 Medical Drug form: INJ, Center ONCE, Dosing Weight 76.364, kg, Start date: 05/24/16 22:17:00 CDT, Stop date: 05/24/16 22:17:00 CDTNotes: Same as Keppra Mix with 100 mL NS, LR or D5W MEDICATION WASTE Product Size: 500 mg Product Wasted: __0_ mg Sodium Chloride 1,000 mL, Rate: No Longer [place] 0.154 MEQ/ML 75 ml/hr, Active 2015 Medical Injectable Infuse over: Center Solution 13.3 hr, Route: IV, Dosing Weight 76.364 kg, Total Volume: 1,000, Start date: 05/24/16 22:17:00 CDT, Duration: 30 day, Stop date: 06/23/16 22:16:00 PIN MAKER Acetaminophen 1 tab, Route: No Longer [place] 325 MG / PO, Drug Form: Active 2015 Medical Hydrocodone TAB, Dosing Center Bitartrate 5 MG Weight 76.364, Oral Tablet kg, Q4H, PRN Pain Score 1-3, Start date: 05/24/16 22:17:00 CDT, Duration: 30 day, Stop date: 06/23/16 22:16:00 CSTNotes: (Same as: [place] 325/5) Do not exceed 4gm/day of acetaminophen. Saline Flush 10 mL, Route: No Longer [place] 0.9% IVP, Drug Form: Active 2015 Medical INJ, Dosing Center Weight 76.364, kg, PRN, PRN Line Flush, Start date: 05/24/16 20:56:00 CDT, Duration: 30 day, Stop date: 06/23/16 19:55:00 CSTNotes: (Same as: BD Posiflush) Levofloxacin DAILY Inactive Sarahy [facility] 2015 [facility] [place] Amitriptyline AT BEDTIME Active [facility] St[facility] Hcl 2015 [facility] [place] Fentanyl Q48H Active [facility] St. 2016 [facility] [place] Hydrocodone Q6H Active [facility] St. 10/[place] 325 2015 [facility] [place] Warfarin Sodium DAILY Active [facility] St[facility] 2015 [facility] [place] Tizanidine TWICE DAILY Active [facility] St[facility] 2015 [facility] [place] Allergies, Adverse Reactions, Alerts Substance Category Reaction Severity Reaction Status Date Comments Source type Reported Immunizations Immunization Date Site Status Last Updated Comments Source Given Influenza Adult completed [facility] Vaccine 8 - [place] pneumococcal Right completed [facility] [address] Results Order Name Results Value Reference Date Interpretation Comments Source Range Laboratory Hemoglobin 9.6 g/dL 13.6 - 10/[address] [facility] [address] Studies 17.9 /2017 [facility] [place] Laboratory Hematocrit 30.4 % 39.6 - 10/[address] [facility] [address] Studies 49.0 /2017 [facility] [place] Laboratory Prothrombin 21.3 9.5 - 12.5 10/[address] [facility] [address] Studies Time SECONDS /2017 [facility] [place] Laboratory INR 1.79 10/[address] [facility] [address] Studies Internationa /2017 [facility] l Normalized [place] Ratio Laboratory Activated 28.9 24.3 - 10/24 [facility] [place]. Studies Partial SECONDS 36.9 /2017 [facility] Thromboplast [place] Time Laboratory White Blood 11.0 K/uL 4.3 - 10.9 10/[address] [facility] [address] Studies Count /2017 [facility] [place] Laboratory Red Cell 19.1 % 12.1 - 10/24 [facility] [place]. Studies Distribution 15.2 /2017 [facility] Width [place] Laboratory Red Blood 2.99 M/uL 4.33 - 10/24 [facility] [place]. Studies Count 5.43 /2017 [facility] [place] Laboratory Platelet 347 K/uL 152 - 406 10/24 [facility] [place]. Studies Count /2017 [facility] [place] Laboratory Neutrophils 69.0 % 41.7 - 10/[address] [facility] [address] Studies % 73.7 /2017 [facility] [place] Laboratory Monocytes % 9.3 % 3.3 - 12.3 10/[address] [facility] [address] Studies /2017 [facility] [place] Laboratory Mean 8.1 fL 7.6 - 11.3 10/[address] [facility] [address] Studies Platelet /2017 [facility] Volume [place] Laboratory Mean 75.0 fL 80 - 100 10/24 [facility] [place]. Studies Corpuscular /2017 [facility] Volume [place] Laboratory Mean 31.3 g/dL 32.0 - 10/[address] [facility] [address] Studies Corpuscular 36.0 /2017 [facility] Hemoglobin [place] Concent Laboratory Mean 23.5 pg 27.0 - 10/24 [facility] [place]. Studies Corpuscular 35.0 [facility] Hemoglobin [place] Laboratory Lymphocytes 13.5 % 15.3 - 10/[address] [facility] [address] Studies % 44.8 /2017 [facility] [place] Laboratory Eosinophils 7.4 % 0 - 4.4 10/[address] [facility] [address] Studies % /2017 [facility] [place] Laboratory Basophils % 0.8 % 0 - 1.3 10/[address] [facility] [address] Studies /2017 [facility] [place] Laboratory Absolute 7.6 K/uL 1.8 - 8.0 10/[address] [facility] [address] Studies Neutrophil /2017 [facility] [place] Laboratory Absolute 1.0 K/uL 0.1 - 1.3 10/[address] [facility] [address] Studies Monocytes /2017 [facility] (CBC) [place] Laboratory Absolute 1.5 K/uL 0.7 - 4.9 10/24 [facility] [place] Studies Lymphocytes /2017 [facility] (CBC) [place] Laboratory Absolute 0.8 K/uL 0 - 0.5 10/[address] [facility] [address] Studies Eosinophils [facility] (CBC) [place] Laboratory Absolute 0.1 K/uL 0 - 0.5 10/[address] [facility] [address] Studies Basophils [facility] - (CBC) [place] Laboratory Transferrin 2.1 % 20.0 - 10/[address] [facility] [address] Studies % Saturation 50.0 [facility] [place] Laboratory Transferrin 334 mg/dL 180 - 329 10/[address] [facility] [address] Studies /2017 [facility] [place] Laboratory Total Iron 468 ug/dL 250 - 460 10/[address] [facility] [address] Studies Binding /2017 [facility] Capacity [place] Laboratory Iron Level 10.0 ug/dL 45 - 182 10/[address] [facility] [address] Studies /2017 [facility] [place] Laboratory Ferritin 21.5 ng/ml 23.9 - 10/[address] [facility] [address] Studies 336.2 [facility] [place] Laboratory Percent 3.59 % 0.4 - 2.05 10/[address] [facility] [address] Studies Reticulocyte [facility] Count [place] Laboratory Absolute 0.10 M/uL 0.02 - 10/[address] [facility] [address] Studies Reticulocyte 0.11 [facility] Count [place] Laboratory Urine pH 7.0 10/[address] [facility] [address] Studies /2017 [facility] [place] Laboratory Urine Total Urine 10/23 [facility] [place] Studies Protein Total /2017 [facility] Protein [place] Laboratory Urine 1.010 10/[address] [facility] [address] Studies Specific /2017 [facility] [place] Laboratory Urine Urine 10/23 [facility] [place]. Studies Nitrite Nitrite /2017 [facility] [place] Laboratory Urine Urine 10/[address] [facility] [address] Studies Leukocyte Leukocyte /2017 [facility] Esterase Esterase [place] Laboratory Urine Urine 10/[address] [facility] [address] Studies Ketones Ketones /2017 [facility] [place] Laboratory Urine Urine 10/23 [facility] [place] Studies Glucose Glucose /2017 [facility] [place] Laboratory Urine Blood Urine 10/[address] [facility] [address] Studies Blood /2018 [facility] [place] Laboratory Glucose 114 mg/dL 65 - 120 10/[address] [facility] [address] Studies Level /2017 [facility] [place] Laboratory Estimat 64 mL/min 90 10/[address] [facility] [address] Studies Glomerular /2017 [facility] Filtration [place] Rate Laboratory Creatinine 1.12 mg/dL 0.61 - 10/[address] [facility] [address] Studies 1.24 [facility] [place] Laboratory Calcium 8.6 mg/dL 8.5 - 10.5 10/[address] [facility] [address] Studies Level /2017 [facility] [place] Laboratory Blood Urea 19 mg/dL 6 - 20 10/[address] [facility] [address] Studies Nitrogen /2017 [facility] [place] Laboratory Sodium Level 129 mEq/L 135 - 145 10/[address] [facility] [address] Studies /2018 [facility] [place] Laboratory Potassium 4.3 mEq/L 3.6 - 5.0 10/[address] [facility] [address] Studies Level /2017 [facility] [place] Laboratory Chloride 95 mEq/L 101 - 111 10/[address] [facility] [address] Studies Level /2018 [facility] [place] Laboratory Carbon 25 mEq/L 21 - 31 10/[address] [facility] [address] Studies Dioxide /2017 [facility] Level [place] Laboratory Vitamin B12 1453 pg/ml 180 - 914 09/[address] [facility] [address] Studies Level /2018 [facility] [place] Laboratory Magnesium 2.0 mg/dL 1.8 - 2.5 09/[address] [facility] [address] Studies Level /2018 [facility] [place] Laboratory Free 0.74 ng/dl 0.58 - [address] [facility] [address] Studies Thyroxine 1.64 [facility] [place] Laboratory Triglyceride 133 mg/dL 35 - 160 09/[address] [facility] [address] Studies s Level /2017 [facility] [place] Laboratory Total 0.4 mg/dL 0.3 - 1.2 09/14 [facility] [place] Studies Bilirubin /2017 [facility] [place] Laboratory Thyroid 9.18 0.34 - [address] [facility] [address] Studies Stimulating uIU/mL 5.60 /2017 [facility] Hormone [place] (TSH) Laboratory Serum Total 5.7 g/dL 6.0 - 8.3 09/14 [facility] [address] Studies Protein /2017 [facility] [place] Laboratory LDL 84 02 [facility] [place]. Studies Cholesterol, /2017 [facility] Calculated [place] Laboratory HDL 34 mg/dL 27 - 67 09/[address] [facility] [address] Studies Cholesterol /2017 [facility] [place] Laboratory Globulin 2.5 g/dL 2.3 - 3.5 09/[address] [facility] [address] Studies /2017 [facility] [place] Laboratory Cholesterol/ 4.26 09/14 [facility] [place]. Studies HDL Ratio /2017 [facility] [place] Laboratory Cholesterol 145 mg/dL 09/14 [facility] [place]. Studies Level /2017 [facility] [place] Laboratory Aspartate 13 IU/L 10 - 42 09/14 [facility] [place]. Studies Amino Transf /2017 [facility] - (AST/SGOT) [place] Laboratory Alkaline 91 IU/L 42 - 121 09/14 [facility] [place]. Studies Phosphatase /2017 [facility] [place] Laboratory Albumin/Glob 1.3 1.1 - 1.8 09/14 [facility] [place]. Studies ulin Ratio /2017 [facility] [place] Laboratory Albumin 3.2 g/dL 3.2 - 5.5 09/[address] [facility] [address] Studies /2017 [facility] [place] Laboratory Alanine 9 IU/L 10 - 60 09/14 [facility] [place]. Studies Aminotransfe /2017 [facility] - rase [place] (ALT/SGPT) Laboratory Phosphorus 3.5 mg/dL 2.5 - 4.3 08/[address] [facility] [address] Studies Level /2017 [facility] [place] Laboratory Procalcitoni null 08/[address] [facility] [address] Studies n [facility] [place] Laboratory Direct 0.1 mg/dL 0 - 0.2 08/28 [facility] [place]. Studies Bilirubin /2017 [facility] [place] Laboratory Lipase 19 U/L 22 - 51 08/28 [facility] [place] Studies /2017 [facility] [place] HEMATOLOGY INR 1.08 0.85 - 05/30 [employer] [address] [facility] HEMATOLOGY PT 14.2 s 12.0 - 05/30 [place] 14.7 /[address] [facility] HEMATOLOGY INR 1.09 0.85 - 05/28 [employer] [address] [facility] HEMATOLOGY PTT 27.7 s 22.9 - 05/28 [place] 35.8 /[address] [facility] HEMATOLOGY PT 14.3 s 12.0 - 05/28 [place] 14.7 /[address] [facility] HEMATOLOGY Platelet 287 K/CMM 133 - 450 05/[address] [facility] HEMATOLOGY MPV 8.4 fL 7.4 - 10.4 05/[address] [facility] HEMATOLOGY MCHC 33.3 g/dL 32.0 - 05/28 [place] 36.0 /[address] [facility] HEMATOLOGY Hgb 11.6 g/dL 14.0 - 05/28 [place] 18.0 /[address] [facility] HEMATOLOGY MCH 29.6 pg 27.0 - 05/28 [place] 31.0 /[address] [facility] HEMATOLOGY RDW 15.0 % 11.5 - 05/28 [place] [address] [facility] HEMATOLOGY MCV 88.9 fL 80.0 - 05/28 [place] 94.0 /[address] [facility] HEMATOLOGY Hct 35.0 % 42.0 - 05/28 [place] 54.0 /[address] [facility] HEMATOLOGY RBC 3.94 M/CMM 4.70 - 05/28 [place] [address] [facility] HEMATOLOGY WBC 11.4 K/CMM 3.7 - 10.4 05/[address] [facility] HEMATOLOGY Monocytes # 1.3 K/CMM 0.0 - 0.8 05/[address] [facility] HEMATOLOGY Segs-Bands # 8.9 K/CMM 1.5 - 8.1 05/[address] [facility] HEMATOLOGY Lymphocytes 1.2 K/CMM 1.0 - 5.5 05/28 # /[address] [facility] HEMATOLOGY Basophils # 0.1 K/CMM 0.0 - 0.2 05/[address] [facility] HEMATOLOGY Eosinophils 0.1 % 0.0 - 4.0 05/[address] [facility] HEMATOLOGY Basophils 0.5 % 0.0 - 1.0 05/[address] [facility] HEMATOLOGY Monocytes 11.5 % 2.0 - 12.0 05/[address] [facility] HEMATOLOGY Segs 77.6 % 45.0 - 05/28 [place] 75.0 /[address] [facility] HEMATOLOGY Lymphocytes 10.3 % 20.0 - 05/28 [place] 40.0 /[address] [facility] CHEM PANEL eGFR 89 05/27 Result Comment: The eGFR is calculated using the CKD-EPI formula. In most young, healthy individuals the eGFR will be >90 mL/ min/1.73m2. The eGFR declines with age. An eGFR of 60-89 may be normal in [employer] mL/min/1. some populations, particularly the elderly, for whom the CKD-EPI formula has not been extensively validated. Use of the eGFR is not recommended in the following populations: [address] Individuals with unstable creatinine concentrations, including [...] Lvl 104 mg/dL 70 - 99 05/[address] [facility] CHEM PANEL Creatinine 0.80 mg/dL 0.50 - 05/27 [facility] [address] CHEM PANEL BUN 9 mg/dL 7 - 22 05/[address] [facility] CHEM PANEL Sodium Lvl 137 meq/L 135 - 145 05/[address] [facility] CHEM PANEL Potassium 3.9 meq/L 3.5 - 5.1 05/27 Result [employer] Comment: [facility] Slightly Hemolyzed. CHEM PANEL CO2 22 meq/L 24 - 32 05/[address] [facility] CHEM PANEL Chloride Lvl 100 meq/L 95 - 109 05/[address] [facility] CHEM PANEL Calcium Lvl 8.0 mg/dL 8.5 - 10.5 05/[address] [facility] CHEM PANEL AGAP 18.9 meq/L 10.0 - 05/27 [employer] [address] [facility] CHEM PANEL Phosphorus 2.3 mg/dL 2.5 - 4.5 05/[address] [facility] CHEM PANEL Magnesium 1.7 mg/dL 1.8 - 2.4 05/27 [employer] Lvl [facility] HEMATOLOGY Monocytes 7.2 % 2.0 - 12.0 05/[address] [facility] HEMATOLOGY Lymphocytes 7.5 % 20.0 - 05/[address] [place] [address] [facility] HEMATOLOGY Segs 85.1 % 45.0 - 05/27 [facility] [place] [address] [facility] HEMATOLOGY Segs-Bands # 9.0 K/CMM 1.5 - 8.1 05/[address] [facility] HEMATOLOGY Basophils 0.2 % 0.0 - 1.0 05/[address] [facility] HEMATOLOGY Monocytes # 0.8 K/CMM 0.0 - 0.8 05/[address] [facility] HEMATOLOGY Lymphocytes 0.8 K/CMM 1.0 - 5.5 05/27 [place] # /[address] [facility] HEMATOLOGY MCV 88.5 fL 80.0 - 05/27 [place] [address] [facility] HEMATOLOGY Hct 31.9 % 42.0 - 05/[address] [place] [address] [facility] HEMATOLOGY Hgb 11.0 g/dL 14.0 - 05/[address] [facility] HEMATOLOGY RBC 3.61 M/CMM 4.70 - 05/[address] [place] [address] [facility] HEMATOLOGY MCH 30.6 pg 27.0 - 05/27 [place] [address] [facility] HEMATOLOGY WBC 10.6 K/CMM 3.7 - 10.4 05/27 /[address] [facility] HEMATOLOGY Platelet 205 K/CMM 133 - 450 05/27 /[address] [facility] HEMATOLOGY RDW 14.7 % 11.5 - 05/[address] [place] [address] [facility] HEMATOLOGY MCHC 34.6 g/dL 32.0 - 05/[address] [place] [address] [facility] HEMATOLOGY MPV 9.3 fL 7.4 - 10.4 05/[address] [facility] PARATHYROI Ca Norm WB 0.99 1.05 - 05/27 [employer] D PROFILE mMol/L 1. [facility] PARATHYROI Ca Ion WB 1.02 1. - 05/27 [employer] D PROFILE mMol/L 1. [facility] Brain wo Brain wo EXAM: CT BRAIN WITHOUT CONTRAST 05/27 - [employer] contrast contrast CT /2015 - Medical CT This report was dictated by a Piece Hand/Fellow. I have personally reviewed the images as [...] evacuation. CARDIAC Troponin-T <0.010 0.000 - 05/26 [employer] ENZYMES ng/mL 0.[address] [facility] CARDIAC Troponin-I null 0.00 - 05/26 [employer] ENZYMES [address] [facility] CARDIAC Total CK 50 unit/L 12 - 191 05/26 [employer] ENZYM[address] [facility] CHEM PANEL Magnesium 2.1 mg/dL 1.8 - 2.4 05/26 [employer] Lvl [facility] CHEM PANEL eGFR 88 05/26 Result Comment: The eGFR is calculated using the CKD-EPI formula. In most young, healthy individuals the eGFR will be >90 mL/ min/1.73m2. The eGFR declines with age. An eGFR of 60-89 may be normal in [employer] mL/min/1.7 /2015 some populations, particularly the elderly, for whom the CKD-EPI formula has not been extensively validated. Use of the eGFR is not recommended in the following populations: [address] Individuals with unstable creatinine concentrations, including [...] CO2 23 meq/L 24 - 32 05/[address] [facility] CHEM PANEL Chloride Lvl 100 meq/L 95 - 109 05/[address] [facility] CHEM PANEL Calcium Lvl 7.8 mg/dL 8.5 - 10.5 05/[address] [facility] CHEM PANEL AGAP 16.2 meq/L 10.0 - 05/[address] [place] [address] [facility] CHEM PANEL Sodium Lvl 135 meq/L 135 - 145 05/[address] [facility] CHEM PANEL Glucose Lvl 78 mg/dL 70 - 99 05/[address] [facility] CHEM PANEL BUN 9 mg/dL 7 - 22 05/[address] [facility] CHEM PANEL Potassium 4.2 meq/L 3.5 - 5.1 05/26 Lvl /[address] [facility] CHEM PANEL Creatinine 0.81 mg/dL 0.50 - 05/26 [employer] Lvl 1.40 /[address] [facility] CHEM PANEL Phosphorus 3.3 mg/dL 2.5 - 4.5 05/[address] [facility] HEMATOLOGY MCHC 34.6 g/dL 32.0 - 05/[address] [place] [address] [facility] HEMATOLOGY RDW 14.1 % 11.5 - 05/[address] [facility] HEMATOLOGY RBC 3.69 M/CMM 4.70 - 05/[address] [place] [address] [facility] HEMATOLOGY WBC 10.1 K/CMM 3.7 - 10.4 05/[address] [facility] HEMATOLOGY MPV 9.0 fL 7.4 - 10.4 05/[address] [facility] HEMATOLOGY Platelet 234 K/CMM 133 - 450 05/[address] [facility] HEMATOLOGY MCH 30.3 pg 27.0 - 05/[address] [facility] HEMATOLOGY MCV 87.7 fL 80.0 - 05/[address] [place] [address] [facility] HEMATOLOGY Hct 32.4 % 42.0 - 05/[address] [place] [address] [facility] HEMATOLOGY Hgb 11.2 g/dL 14.0 - 05/[address] [place] [address] [facility] HEMATOLOGY Ly30 0.2 % 0.0 - 7.5 05/[address] [facility] HEMATOLOGY TEG Data See Note 05/26 [facility] (05/26/16 12:43 AM) Center HEMATOLOGY G-value 15.5 K 4.5 - 11.0 05/26 [employer] d/sc /[address] [facility] HEMATOLOGY Max Amp 75.6 mm 50.0 - 05/26 [place] 70.0 /[address] [facility] HEMATOLOGY Coag Index 5.3 -3.0-3.0 - 05/[address] [place] [address] [facility] HEMATOLOGY K-time 0.8 min 1.0 - 3.0 05/[address] [facility] HEMATOLOGY Angle 78.6 53.0 - 05/26 [employer] degrees [address] [facility] HEMATOLOGY R-time 2.8 min 5.0 - 10.0 05/26 /[address] [facility] HEMATOLOGY TEG Interp Thrombelas 05/26 [employer] tograph [facility] show shortened value of R and increased values of both Angle Alpha and MA. These findings are suggestive of platelet and enzymatic hypercoagu lation which may be seen in early phase of DIC. Monitor for DIC with DIC panel may be indicated. CPT:87117 HEMATOLOGY Monocytes 10.1 % 2.0 - 12.0 05/26 /[address] [facility] HEMATOLOGY Lymphocytes 13.2 % 20.0 - 05/[address] [place] [address] [facility] HEMATOLOGY Segs-Bands # 7.7 K/CMM 1.5 - 8.1 05/26 /[address] [facility] HEMATOLOGY Basophils 0.4 % 0.0 - 1.0 05/[address] [facility] HEMATOLOGY Eosinophils 0.1 % 0.0 - 4.0 05/26 /[address] [facility] HEMATOLOGY Monocytes # 1.0 K/CMM 0.0 - 0.8 05/26 /[address] [facility] HEMATOLOGY Lymphocytes 1.3 K/CMM 1.0 - 5.5 05/26 [employer] # /[address] [facility] HEMATOLOGY Segs 76.2 % 45.0 - 05/[address] [place] [address] [facility] PARATHYROI Ca Ion WB 1.11 1.05 - 05/26 [employer] D PROFILE mMol/L 1. [facility] PARATHYROI Ca Norm WB 1.08 1.05 - 05/26 [employer] D PROFILE mMol/L 1. [facility] Brain wo Brain wo EXAM: CT BRAIN 05/25 - [employer] contrast contrast CT /2015 - [facility] CT Center DATE: 05/25/2016 at 23:43 Read by: Kim Salgado MD [facility] Date/time: 05/26/16 00:23 Electronically Signed by: Kim [...] eGFR of 60-89 may be normal in [employer] mL/min/1. some populations, particularly the elderly, for whom the CKD-EPI formula has not been extensively validated. Use of the eGFR is not recommended in the following populations: [address] Individuals with unstable creatinine concentrations, including [...] PANEL AGAP 15.3 meq/L 10.0 - 05/25 [employer] [address] [facility] CHEM PANEL CO2 25 meq/L 24 - 32 05/[address] [facility] CHEM PANEL Calcium Lvl 7.9 mg/dL 8.5 - 10.5 05/[address] [facility] CHEM PANEL Chloride Lvl 100 meq/L 95 - 109 05/[address] [facility] CHEM PANEL Potassium 4.3 meq/L 3.5 - 5.1 05/25 [employer] Lvl [facility] CHEM PANEL Sodium Lvl 136 meq/L 135 - 145 05/[address] [facility] CHEM PANEL Creatinine 0.94 mg/dL 0.50 - 05/25 [facility] 1.[address] [facility] CHEM PANEL Glucose Lvl 113 mg/dL 70 - [address] [facility] CHEM PANEL BUN 8 mg/dL 7 - 22 05/[address] [facility] HEMATOLOGY INR 1.19 0.85 - 05/[address] [place] [address] [facility] HEMATOLOGY PT 15.4 s 12.0 - 05/[address] [place] [address] [facility] HEMATOLOGY PTT 34.1 s 22.9 - 05/[address] [place] [address] [facility] PARATHYROI Ca Ion WB 1.07 1.05 - 05/25 [employer] D PROFILE mMol/L 1.[address] [facility] PARATHYROI Ca Norm WB 1.04 1.05 - 05/25 [employer] D PROFILE mMol/L 1.[address] [facility] CARDIAC Troponin-T <0.010 0.000 - 05/25 [employer] ENZYMES ng/mL 0.[address] [facility] CARDIAC Troponin-I null 0.00 - 05/25 [employer] ENZYMES [address] [facility] CARDIAC Total CK 57 unit/L 12 - 191 05/25 [employer] ENZ[address] [facility] CHEM PANEL A/G Ratio 1.1 0.7 - 1.6 05/[address] [facility] CHEM PANEL Bili 0.4 mg/dL 0.0 - 1.0 05/[address] [place] [address] [facility] CHEM PANEL Bili Total 0.6 mg/dL 0.2 - 1.3 05/[address] [facility] CHEM PANEL Bili Direct 0.2 mg/dL 0.0 - 0.3 05/[address] [facility] CHEM PANEL AST 13 unit/L 0 - 37 05/[address] [facility] CHEM PANEL Alk Phos 113 unit/L 39 - 136 05/[address] [facility] CHEM PANEL Globulin 2.7 g/dL 2.7 - 4.2 05/[address] [facility] CHEM PANEL Total 5.7 g/dL 6.4 - 8.4 05/[address] [facility] CHEM PANEL Albumin Lvl 3.0 g/dL 3.5 - 5.0 05/[address] [facility] CHEM PANEL ALT 14 unit/L 0 - 65 05/[address] [facility] CHEM PANEL Phosphorus 3.2 mg/dL 2.5 - 4.5 05/[address] [facility] CHEM PANEL Magnesium 1.7 mg/dL 1.8 - 2.4 05/25 [employer] Lvl /[address] [facility] Brain wo Brain wo Examination: MRI brain without contrast 05/25 [facility] contrast contrast MRI /2015 [facility] DATE: 05/25/2016 Read by: Jaspreet [...] hemorrhage. Smaller left parietal subdural hematoma. Chest Chest 1view EXAM: XR CHEST 1 VIEW 05/25 - [employer] 1view DX DX /2015 [facility] DATE: 05/26/2016 3:00 AM CDT Read by: Faheem North MD Dictated Date/time: 05/26/16 10:30 Electronically Signed by: Faheem North MD 05/26/16 10:30 FINAL REPORT INDICATION: Respiratory distress COMPARISON: 05/24/2016 TECHNIQUE: AP chest IMPRESSION: 1. Both lungs are clear. Costophrenic recesses are sharp. Cardiomediastinal silhouette within normal limits. No acute osseous abnormalities. BLOOD BANK AB Int Anti-E 05/[address] [place] [address] [facility] BLOOD BANK Path AB Transfusio 05/25 [employer] RESULTS n [facility] NoteThijodi is a 71 y/o male who was admitted on 05/24/16 for a subdural hematoma.A n anti-E is detected in this patients serum. This antibody is directed against the E antigen of the Rh blood group system. It is typically IgG in nature and forms in response to RBC sensitizat ion via transfusio n. Anti-E antibody is considered a clinically significan t antibody; it has been associated with hemolytic transfusio n reactions. Should RBC transfusio n be necessary, E-negative crossmatch -compatibl e blood will be issued. Little difficulty in obtaining compatible blood is anticipate d since 70% of the donor population lacks the E-antigen. The patients electronic medical record has been reviewed for relevant informatio n.I have reviewed the test results and concur with the resident Dr. Lillian Alcantar's interpreta tion.CPT: 45035-HS BLOOD BANK ABO/Rh O POS 05/25 [employer] [facility] BLOOD BANK Antibody Positive 1 05/25 Result Comment: 05/25/2016 01:18 [id number] [employer] RESULTS Scr "Significant Findings called to Baljinder CAPUTO at 0115 by DMITRIY.Read Back OK." [facility] (05/24/16 9:09 PM) [place] 05/25/2016 01:14 [id number] Patient has unexpected antibodies. Allow extra time for additional crossmatches. HEMATOLOGY Max 68 mm 52 - 71 05/25 [employer] Amplitude [facility] HEMATOLOGY G-value 10.4 K 5.0 - 11.6 05/25 [employer] Rapid d/sc [facility] HEMATOLOGY Estimated % 0.4 % 0.0 - 7.5 05/25 [employer] Lysis [facility] HEMATOLOGY ACT (TEG) 121 s 86 - 118 05/25 [employer] [facility] HEMATOLOGY [place] 0.7 min 05/25 [employer] [facility] HEMATOLOGY R-time Rapid 0.8 min 0.4 - 0.7 05/[address] [facility] HEMATOLOGY K-time Rapid 0.8 min 0.6 - 2.3 05/[address] [facility] HEMATOLOGY Angle Rapid 80 degrees 64 - 80 05/[address] [facility] HEMATOLOGY Eosinophils 1.7 % 0.0 - 4.0 05/25 [employer] /[address] [facility] HEMATOLOGY Eosinophils 0.1 K/CMM 0.0 - 0.5 05/25 [employer] # /[address] [facility] HEMATOLOGY Basophils # 0.1 K/CMM 0.0 - 0.2 05/[address] [facility] HEMATOLOGY PTT 32.0 s 22.9 - 05/25 [employer] [address] [facility] Brain-Outs Brain-Outsid Exam: CT head without contrast 05/24 [facility] madelyn e Consult CT - Medical Consult CT Center INDICATION: Intracranial hemorrhage Read by: [...] 1.8 cm in thickness. Associated 0.8 cm [id number] midline shift. Brain/Neck Brain/Neck EXAM: CT ANGIOGRAM [...] P2 to P4 segments of the right DERMATOLOGY SALES REPRESENTATIVE compatible w ith diffuse disease. Diffuse changes of centrilobular emphysema in bilateral upper lungs. IMPRESSION: 1. Interval increase in size of the hyperacute subdural hematoma overlying the right cerebral hemisphere now measuring 2.6 cm previously measured 2.0 cm concerning for active bleeding. 2. Diffuse luminal irregularities of distal sylvian branches of the left MCA and distal branches of the right DERMATOLOGY SALES REPRESENTATIVE compatible with diffuse atherosclerotic disease. 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 Chest Chest 1view EXAM: XR CHEST 1 VIEW 05/24 - [employer] 1view DX /2015 - Medical This report was dictated by a Piece Hand/Fellow. I have personally reviewed the images as [...] Signs Vital Sign Value Date Comments Source Heart Rate 76 10/24/[address] [facility] Systolic (mm Hg) 137 10/24/[address] [facility] Diastolic (mm Hg) 68 10/24/[address] [facility] Temperature Oral (F) 99.6 F 10/24/[address] [facility] Respitory Rate 16 10/24/[address] [facility] Height 67 10/24/[address] [facility] Weight 177 10/24/[address] [facility] Systolic (mm Hg) 178 05/30/2016 [facility] Diastolic (mm Hg) 88 05/30/2016 [facility] Temperature Oral (F) 97.7 F 05/30/2016 [facility] Heart Rate 65 05/30/2016 [facility] Respitory Rate 18 05/30/2016 [facility] Respitory Rate 18 05/30/2016 [facility] Heart Rate 71 05/30/2016 [facility] Systolic (mm Hg) 176 05/30/2016 [facility] Diastolic (mm Hg) 90 05/30/2016 [facility] Temperature Oral (F) 97.8 F 05/30/2016 [facility] Systolic (mm Hg) 113 05/30/2016 [facility] Diastolic (mm Hg) 62 05/30/2016 [facility] Temperature Oral (F) 98.1 F 05/30/2016 [facility] Respitory Rate 16 05/30/2016 [facility] Heart Rate 68 05/30/2016 [facility] BMI Calculated 25.6 05/25/2016 [facility] Weight 76.36 05/25/2016 [facility] Height 172.72 cm 05/25/2016 [facility] Weight 76.364 05/25/2016 [facility] BMI Calculated 26.37 05/25/2016 [facility] Height 170.18 cm 05/25/2016 [facility] Encounters Location Location Encounter Encounter Reason Attending ADM DC Status Source Details Type Number For Provider Date Date Visit [facility] [id number] [place] 05/25 05/30 [facility] [id number] TRAUMA 06/12 Active [facility] /2015 [place] [id number] TRAUMA 07/24 Active [facility] /[address] Registered [id number] 07/[address] [facility] [id number] 08/29 08/[address] [facility]2017 [facility] Reg[facility] [id number] 09[facility] [facility]2018 [facility] [place] Reg[facility] [id number] 09[facility] [facility]2018 [facility] [place] [facility] Dis[facility] [id number] 09/14 09/[address] [facility]2017 [facility] [place] [facility] Reg[facility] [id number] 09/[address] [facility]2018 [facility] [place] [facility] Reg[facility] [id number] 09/[address] [facility]2018 [facility] [place] [facility] Registered [id number] 09/[address] [facility]2018 [facility] [place] [facility] Departed [id number] 10/06 10/[address] [facility] Surgical /2017 [facility] [place] [facility] [place] [facility] St[facility] Registered [id number] 10[facility] [facility]2018 [facility] [place] [facility] [id number] 10/[address] [facility]2018 [facility] [place] [facility] Dis[facility] [id number] 10/23 10/[address] [facility]2017 [facility] [place] [facility] [facility] Outpatient [id number] ALINA 08/13 Active [facility] Outpatient [id number] ALINA 05/13 Active [facility] /[address] [place] [address] Procedures Procedure Code Date Perfomer Comments Source Occult Blood [facility] - [place] Angio Aorta For [id number] [facility] Dissection 8 - [place] TRANSFUSE [id number] [facility] NONAUT RED 8 - [place] BLOOD CELLS IN PERIPH VEIN, PERC EXCISION OF [id number] [facility] STOMACH, ENDO, 8 - [place] DIAGN Chest Angio [id number] [facility] [place] Anaerobic Blood [id number] [facility] [place] Aerobic Blood [id number] [facility] 8 - [place] Abdomen & [id number] [facility] Pelvis W 8 - [place] Contrast Chest Pa And [id number] [facility] Lat (2 Views) 8 - [place] Influenza Type [facility] B Antigen 8 - [place] Screen Influenza Type [facility] A Antigen 8 - [place] Screen Chest Pa And [id number] [facility] Lat (2 Views) 7 - [place] Abdominal [id number] Had MRI [employer] [facility] [employer] aortic aneurysm after repair [facility] stenting<sup>1< /sup> Bypass / graft [id number] [facility] Hernia repair [id number] [facility]
--- OUTSIDE RECORDS SUMMARY | 2018-10-02 16:41 | XMS REPORT ---
:1945 [facility] [address] [place] [address] Dr. Dennison [address] [place] [id number] Care Team Providers Name Role Phone PITER [...] Value Reference Range Comments CULTURE (BEAKER) (test zodt=6415) No acid-fast bacilli isolated in 42 days AFB SMEAR (BEAKER) (test vwqm=622) No acid fast bacilli seen AFB CULTURE + [id number] 20:50:00 Test Item Value Reference Range Comments CULTURE (BEAKER) (test No acid-fast bacilli isolated vtku=4819) in 42 days AFB SMEAR (BEAKER) (test No acid fast bacilli seen uzjq=789) FUNGUS CULTURE + [id number] 10:14:00 Test Item Value Reference Range Comments CULTURE (BEAKER) (test No fungus isolated in 28 days keel=3610) FUNGUS SMEAR (BEAKER) (test No fungi seen xhtu=2715) FUNGUS CULTURE + [id number] 10:14:00 Test Item Value Reference Range Comments CULTURE (BEAKER) (test No fungus isolated in 28 days qmgx=4792) FUNGUS SMEAR (BEAKER) (test No fungi seen yjbd=1788) VANCOMYCIN LEVEL, [id number] 05:33:00 Test Item Value Reference Range Comments VANCOMYCIN RANDOM (BEAKER) (test gopi=359) 16.9 ug/mL Reference Range: No NormalsBASIC METABOLIC [id number] 05:29:00 Test Item Value Reference Range Comments SODIUM (BEAKER) (test 137 meq/L 136-145 sdlw=002) POTASSIUM (BEAKER) (test 3.5 meq/L 3.5-5.1 fjlv=252) CHLORIDE (BEAKER) (test 106 meq/L 98-107 txas=730) CO2 (BEAKER) (test 22 meq/L 22-29 icmv=645) BLOOD UREA NITROGEN 18 mg/dL 7-21 (BEAKER) (test ewau=818) CREATININE (BEAKER) (test 0.92 mg/dL 0.57-1.25 jngv=596) GLUCOSE RANDOM (BEAKER) 95 mg/dL 70-105 (test lmiz=259) CALCIUM (BEAKER) (test 8.7 mg/dL 8.4-10.2 opca=974) EGFR (BEAKER) (test 80 mL/min/1.73 sq m ESTIMATED GFR IS NOT fazz=9743) ACCURATE CREATININE CLEARANCE IN PREDICTING GLOMERULAR FILTRATION RATE. ESTIMATED GFR IS NOT APPLICABLE FOR DIALYSIS PATIENTS. PROTHROMBIN [id number] 05:21:00 Test Item Value Reference Range Comments PROTIME (BEAKER) (test fuuv=609) 25.0 seconds 11.7-14.7 INR (BEAKER) (test bozu=836) 2.3 <=5.9 RECOMMENDED COUMADIN/WARFARIN INR THERAPY RANGESSTANDARD DOSE: 2.0 - 3.0 Includes: PROPHYLAXIS forvenous thrombosis, systemic embolization; TREATMENT for venous thrombosis and/or pulmonary embolus.HIGH RISK: Target INR is 2.5-3.5 for patients with mechanical heart valves.While on warfarin.BASIC METABOLIC [id number] 16:35:00 Test Item Value Reference Range Comments SODIUM (BEAKER) (test 137 meq/L 136-145 cppj=347) POTASSIUM (BEAKER) (test 3.5 meq/L 3.5-5.1 vjcz=055) CHLORIDE (BEAKER) (test 105 meq/L 98-107 gatk=056) CO2 (BEAKER) (test 26 meq/L 22-29 hcli=718) BLOOD UREA NITROGEN 16 mg/dL 7-21 (BEAKER) (test gfxk=996) CREATININE (BEAKER) (test 1.02 mg/dL 0.57-1.25 rhzb=652) GLUCOSE RANDOM (BEAKER) 123 mg/dL 70-105 (test iadm=418) CALCIUM (BEAKER) (test 9.0 mg/dL 8.4-10.2 vfte=982) EGFR (BEAKER) (test 71 mL/min/1.73 sq m ESTIMATED GFR IS NOT uuhv=2623) ACCURATE CREATININE CLEARANCE IN PREDICTING GLOMERULAR FILTRATION RATE. ESTIMATED GFR IS NOT APPLICABLE FOR DIALYSIS PATIENTS. ANAEROBIC [id number] 08:59:00 Test Item Value Reference Range Comments CULTURE (BEAKER) (test fshp=2219) No anaerobes isolated ANAEROBIC [id number] 08:58:00 Test Item Value Reference Range Comments CULTURE (BEAKER) (test xuyb=1969) No anaerobes isolated VANCOMYCIN LEVEL, [id number] 05:18:00 Test Item Value Reference Range Comments VANCOMYCIN RANDOM (BEAKER) (test wxjj=120) 19.8 ug/mL Reference Range: No NormalsPROTHROMBIN TIME/[id number] 04:55:00 Test Item Value Reference Range Comments PROTIME (BEAKER) (test lstt=644) 23.5 seconds 11.7-14.7 INR (BEAKER) (test gqbm=943) 2.1 <=5.9 RECOMMENDED COUMADIN/WARFARIN INR THERAPY RANGESSTANDARD DOSE: 2.0 - 3.0 Includes: PROPHYLAXIS forvenous thrombosis, systemic embolization; TREATMENT for venous thrombosis and/or pulmonary embolus.HIGH RISK: Target INR is 2.5-3.5 for patients with mechanical heart valves.While on warfarin.VANCOMYCIN LEVEL, [id number] 18:17:00 Test Item Value Reference Range Comments VANCOMYCIN TROUGH (BEAKER) (test qdps=565) 25.2 ug/mL 10.0-20.0 BASIC METABOLIC [id number] 15:13:00 Test Item Value Reference Range Comments SODIUM (BEAKER) (test 137 meq/L 136-145 chbf=726) POTASSIUM (BEAKER) (test 3.6 meq/L 3.5-5.1 vopp=983) CHLORIDE (BEAKER) (test 108 meq/L 98-107 wvrs=333) CO2 (BEAKER) (test 22 meq/L 22-29 yzih=367) BLOOD UREA NITROGEN 16 mg/dL 7-21 (BEAKER) (test hijy=272) CREATININE (BEAKER) (test 1.06 mg/dL 0.57-1.25 kbdg=732) GLUCOSE RANDOM (BEAKER) 125 mg/dL 70-105 (test cuyv=091) CALCIUM (BEAKER) (test 8.6 mg/dL 8.4-10.2 kqkj=724) EGFR (BEAKER) (test 68 mL/min/1.73 sq m ESTIMATED GFR IS NOT fhmf=8637) ACCURATE CREATININE CLEARANCE IN PREDICTING GLOMERULAR FILTRATION RATE. ESTIMATED GFR IS NOT APPLICABLE FOR DIALYSIS PATIENTS. PROTHROMBIN TIME/[id number] 06:16:00 Test Item Value Reference Range Comments PROTIME (BEAKER) (test llin=451) 21.9 seconds 11.7-14.7 INR (BEAKER) (test spkv=912) 1.9 <=5.9 RECOMMENDED COUMADIN/WARFARIN INR THERAPY RANGESSTANDARD DOSE: 2.0 - 3.0 Includes: PROPHYLAXIS forvenous thrombosis, systemic embolization; TREATMENT for venous thrombosis and/or pulmonary embolus.HIGH RISK: Target INR is 2.5-3.5 for patients with mechanical heart valves.While on warfarin.LACTIC ACID, VENOUS , WHOLE [id number] 06:09:00 Test Item Value Reference Range Comments LACTATE BLOOD VENOUS (2) (BEAKER) (test 0.6 mmol/L 0.5-2.2 tiwk=8937) Effective 12/12/2015: Units/Reference Range ChangeNew: 0.5-2.2 mmol/L Previous: 5 -20 mg/dLTISSUE [id number] 11:35:00Surgical Pathology Report Case: [id number] Authorizing Provider: Aris Parker MD Collected: 03/23/2018 1136 Ordering Location: [facility] Received: 2017 1158 [facility]IOPERAT[facility] SERVICES Pathologist: Lanie Jaquez MD Specimen: Groin, Right, Right Groin Tissue SOFT TISSUE, RIGHT GROIN, DEBRIDEMENT: - FIBROADIPOSE TISSUE WITH FAT NECROSIS, ACUTE AND CHRONIC INFLAMMATION, AND FOREIGN BODY GIANT CELL REACTION Signing Pathologist Direct Phone Line: [phone] signed by Lanie Jaquez MD on 2017 at 11:35 [id number] groin tissueThe specimen is received in a formalin-filled container and labeled with the patient's information and labeled "right groin tissue" and consists of a segment of rodríguez-chapman hemorrhagic soft tissue measuring 3 x 1.6 x 0.5 cm. Linux Admin sections are submitted A1.CG/pl Performed.SURGICALLY OBTAINED CULTURE + GRAM [id number] 09:47:00 Test Item Value Reference Range Comments GRAM STAIN RESULT (BEAKER) (test <1+ WBCs psdg=5686) GRAM STAIN RESULT (BEAKER) (test No organisms seen iuzc=52905) SURGICALLY OBTAINED CULTURE + GRAM [id number] 09:45:00 Test Item Value Reference Range Comments CULTURE (BEAKER) (test METHICILLIN RESISTANT 1+ Methicillin rrrz=2709) STAPHYLOCOCCUS AUREUS resistant Staphylococcus aureus Clindamycin (test code=10) Erythromycin (test code=4) Linezolid (test code=40) Nitrofurantoin (test code=23) Oxacillin (test code=14) Rifampin (test code=43) Tetracycline (test code=2) Trimethoprim + Sulfamethoxazole (test code=47) Vancomycin (test code=13) CULTURE (BEAKER) (test ENTEROCOCCUS SPECIES 1+ Enterococcus nxnw=4196) species Ampicillin (test code=26) Linezolid (test code=40) Vancomycin (test code=13) GRAM STAIN RESULT <1+ WBCs (BEAKER) (test nrql=2744) GRAM STAIN RESULT No organisms seen (BEAKER) (test ssgi=915638) BASIC METABOLIC [id number] 05:17:00 Test Item Value Reference Range Comments SODIUM (BEAKER) (test 136 meq/L 136-145 yrsl=330) POTASSIUM (BEAKER) (test 3.5 meq/L 3.5-5.1 vncm=294) CHLORIDE (BEAKER) (test 107 meq/L 98-107 oiyf=678) CO2 (BEAKER) (test 22 meq/L 22-29 rbas=182) BLOOD UREA NITROGEN 9 mg/dL 7-21 (BEAKER) (test ttzp=979) CREATININE (BEAKER) (test 1.01 mg/dL 0.57-1.25 hwcx=806) GLUCOSE RANDOM (BEAKER) 88 mg/dL 70-105 (test bnyr=946) CALCIUM (BEAKER) (test 8.5 mg/dL 8.4-10.2 hewn=407) EGFR (BEAKER) (test 72 mL/min/1.73 sq m ESTIMATED GFR IS NOT vibt=5404) ACCURATE CREATININE CLEARANCE IN PREDICTING GLOMERULAR FILTRATION RATE. ESTIMATED GFR IS NOT APPLICABLE FOR DIALYSIS PATIENTS. PROTHROMBIN TIME/[id number] 05:06:00 Test Item Value Reference Range Comments PROTIME (BEAKER) (test gzcz=624) 21.9 seconds 11.7-14.7 INR (BEAKER) (test eduq=683) 1.9 <=5.9 RECOMMENDED COUMADIN/WARFARIN INR THERAPY RANGESSTANDARD DOSE: 2.0 - 3.0 Includes: PROPHYLAXIS forvenous thrombosis, systemic embolization; TREATMENT for venous thrombosis and/or pulmonary embolus.HIGH RISK: Target INR is 2.5-3.5 for patients with mechanical heart valves.While on warfarin.BASIC METABOLIC [id number] 07:04:00 Test Item Value Reference Range Comments SODIUM (BEAKER) (test 136 meq/L 136-145 zwkm=780) POTASSIUM (BEAKER) (test 3.4 meq/L 3.5-5.1 ykil=807) CHLORIDE (BEAKER) (test 106 meq/L 98-107 hqhi=996) CO2 (BEAKER) (test 24 meq/L 22-29 mmnx=824) BLOOD UREA NITROGEN 8 mg/dL 7-21 (BEAKER) (test rczf=034) CREATININE (BEAKER) (test 1.22 mg/dL 0.57-1.25 dtce=065) GLUCOSE RANDOM (BEAKER) 88 mg/dL 70-105 (test tedb=652) CALCIUM (BEAKER) (test 8.7 mg/dL 8.4-10.2 abqr=960) EGFR (BEAKER) (test 58 mL/min/1.73 sq m ESTIMATED GFR IS NOT zfod=7828) ACCURATE CREATININE CLEARANCE IN PREDICTING GLOMERULAR FILTRATION RATE. ESTIMATED GFR IS NOT APPLICABLE FOR DIALYSIS PATIENTS. PROTHROMBIN TIME/[id number] 06:28:00 Test Item Value Reference Range Comments PROTIME (BEAKER) (test nzds=494) 25.8 seconds 11.7-14.7 INR (BEAKER) (test reoh=909) 2.4 <=5.9 RECOMMENDED COUMADIN/WARFARIN INR THERAPY RANGESSTANDARD DOSE: 2.0 - 3.0 Includes: PROPHYLAXIS forvenous thrombosis, systemic embolization; TREATMENT for venous thrombosis and/or pulmonary embolus.HIGH RISK: Target INR is 2.5-3.5 for patients with mechanical heart valves.While on warfarin.CBC W/PLT COUNT &amp ; AUTO [id number] 06:18:00 Test Item Value Reference Range Comments WHITE BLOOD CELL COUNT (BEAKER) (test jqcl=089) 3.8 K/ L 3.5-10.5 RED BLOOD CELL COUNT (BEAKER) (test kaco=188) 3.43 M/ L 4.63-6.08 HEMOGLOBIN (BEAKER) (test isjk=933) 9.2 GM/DL 13.7-17.5 HEMATOCRIT (BEAKER) (test vunl=242) 29.6 % 40.1-51.0 MEAN CORPUSCULAR VOLUME (BEAKER) (test dhtw=519) 86.3 fL 79.0-92.2 MEAN CORPUSCULAR HEMOGLOBIN (BEAKER) (test 26.8 pg 25.7-32.2 ijft=151) MEAN CORPUSCULAR HEMOGLOBIN CONC (BEAKER) (test 31.1 GM/DL 32.3-36.5 qbdj=375) RED CELL DISTRIBUTION WIDTH (BEAKER) (test 15.8 % 11.6-14.4 gdty=295) PLATELET COUNT (BEAKER) (test iiqy=748) 163 K/CU MM 150-450 MEAN PLATELET VOLUME (BEAKER) (test sjmo=463) 9.9 fL 9.4-12.4 NUCLEATED RED BLOOD CELLS (BEAKER) (test 0 /100 WBC 0-0 twde=363) NEUTROPHILS RELATIVE PERCENT (BEAKER) (test 57 % dmum=255) LYMPHOCYTES RELATIVE PERCENT (BEAKER) (test 24 % lbyf=909) MONOCYTES RELATIVE PERCENT (BEAKER) (test 12 % wvql=737) EOSINOPHILS RELATIVE PERCENT (BEAKER) (test 6 % gkip=866) BASOPHILS RELATIVE PERCENT (BEAKER) (test 1 % axkv=888) NEUTROPHILS ABSOLUTE COUNT (BEAKER) (test 2.18 K/ L 1.78-5.38 nttm=206) LYMPHOCYTES ABSOLUTE COUNT (BEAKER) (test 0.93 K/ L 1.32-3.57 qadl=414) MONOCYTES ABSOLUTE COUNT (BEAKER) (test 0.44 K/ L 0.30-0.82 jhdx=335) EOSINOPHILS ABSOLUTE COUNT (BEAKER) (test 0.23 K/ L 0.04-0.54 ytcv=944) BASOPHILS ABSOLUTE COUNT (BEAKER) (test 0.03 K/ L 0.01-0.08 qrkj=918) IMMATURE GRANULOCYTES-RELATIVE PERCENT (BEAKER) 0 % 0-1 (test arbn=6125) VANCOMYCIN LEVEL, [id number] 17:22:00 Test Item Value Reference Range Comments VANCOMYCIN TROUGH (BEAKER) (test tuuk=262) 14.6 ug/mL 10.0-20.0 SPIN/CONCENTRATION [id number] 10:53:00 Test Item Value Reference Range Comments CONCENTRATION CHARGED (BEAKER) (test ageh=9637) Done BASIC METABOLIC [id number] 07:34:00 Test Item Value Reference Range Comments SODIUM (BEAKER) (test 133 meq/L 136-145 wsmf=285) POTASSIUM (BEAKER) (test 3.5 meq/L 3.5-5.1 cmwp=955) CHLORIDE (BEAKER) (test 104 meq/L 98-107 vdnj=926) CO2 (BEAKER) (test 23 meq/L 22-29 fndk=778) BLOOD UREA NITROGEN 7 mg/dL 7-21 (BEAKER) (test fdth=804) CREATININE (BEAKER) (test 0.96 mg/dL 0.57-1.25 pdom=302) GLUCOSE RANDOM (BEAKER) 94 mg/dL 70-105 (test qcdt=447) CALCIUM (BEAKER) (test 8.8 mg/dL 8.4-10.2 nqbk=220) EGFR (BEAKER) (test 76 mL/min/1.73 sq m ESTIMATED GFR IS NOT iakk=2168) ACCURATE CREATININE CLEARANCE IN PREDICTING GLOMERULAR FILTRATION RATE. ESTIMATED GFR IS NOT APPLICABLE FOR DIALYSIS PATIENTS. PROTHROMBIN TIME/[id number] 07:05:00 Test Item Value Reference Range Comments PROTIME (BEAKER) (test dimk=943) 27.5 seconds 11.7-14.7 INR (BEAKER) (test yvih=465) 2.6 <=5.9 RECOMMENDED COUMADIN/WARFARIN INR THERAPY RANGESSTANDARD DOSE: 2.0 - 3.0 Includes: PROPHYLAXIS forvenous thrombosis, systemic embolization; TREATMENT for venous thrombosis and/or pulmonary embolus.HIGH RISK: Target INR is 2.5-3.5 for patients with mechanical heart valves.CBC W/PLT COUNT & AUTO [id number] 06:55:00 Test Item Value Reference Range Comments WHITE BLOOD CELL COUNT (BEAKER) (test wzgw=370) 5.3 K/ L 3.5-10.5 RED BLOOD CELL COUNT (BEAKER) (test gmed=353) 4.03 M/ L 4.63-6.08 HEMOGLOBIN (BEAKER) (test wvbw=523) 10.8 GM/DL 13.7-17.5 HEMATOCRIT (BEAKER) (test ojfi=865) 34.9 % 40.1-51.0 MEAN CORPUSCULAR VOLUME (BEAKER) (test awsh=040) 86.6 fL 79.0-92.2 MEAN CORPUSCULAR HEMOGLOBIN (BEAKER) (test 26.8 pg 25.7-32.2 olgf=276) MEAN CORPUSCULAR HEMOGLOBIN CONC (BEAKER) (test 30.9 GM/DL 32.3-36.5 hkuz=985) RED CELL DISTRIBUTION WIDTH (BEAKER) (test 15.4 % 11.6-14.4 cyhm=567) PLATELET COUNT (BEAKER) (test scnh=984) 185 K/CU MM 150-450 MEAN PLATELET VOLUME (BEAKER) (test rpuw=808) 10.1 fL 9.4-12.4 NUCLEATED RED BLOOD CELLS (BEAKER) (test 0 /100 WBC 0-0 apik=852) NEUTROPHILS RELATIVE PERCENT (BEAKER) (test 65 % zrfm=970) LYMPHOCYTES RELATIVE PERCENT (BEAKER) (test 17 % jbnn=555) MONOCYTES RELATIVE PERCENT (BEAKER) (test 12 % mqty=936) EOSINOPHILS RELATIVE PERCENT (BEAKER) (test 5 % fhiz=662) BASOPHILS RELATIVE PERCENT (BEAKER) (test 1 % mgyq=917) NEUTROPHILS ABSOLUTE COUNT (BEAKER) (test 3.46 K/ L 1.78-5.38 pvld=120) LYMPHOCYTES ABSOLUTE COUNT (BEAKER) (test 0.91 K/ L 1.32-3.57 zlcm=519) MONOCYTES ABSOLUTE COUNT (BEAKER) (test 0.61 K/ L 0.30-0.82 erek=529) EOSINOPHILS ABSOLUTE COUNT (BEAKER) (test 0.26 K/ L 0.04-0.54 ocly=548) BASOPHILS ABSOLUTE COUNT (BEAKER) (test 0.03 K/ L 0.01-0.08 wrsn=806) IMMATURE GRANULOCYTES-RELATIVE PERCENT (BEAKER) 0 % 0-1 (test wqpb=4556) BASIC METABOLIC [id number] 06:54:00 Test Item Value Reference Range Comments SODIUM (BEAKER) (test 134 meq/L 136-145 pfuy=858) POTASSIUM (BEAKER) (test 3.6 meq/L 3.5-5.1 ojid=333) CHLORIDE (BEAKER) (test 102 meq/L 98-107 chpc=640) CO2 (BEAKER) (test 27 meq/L 22-29 bbwl=201) BLOOD UREA NITROGEN 8 mg/dL 7-21 (BEAKER) (test oxsq=586) CREATININE (BEAKER) (test 0.97 mg/dL 0.57-1.25 yfff=171) GLUCOSE RANDOM (BEAKER) 91 mg/dL 70-105 (test wtpt=400) CALCIUM (BEAKER) (test 8.4 mg/dL 8.4-10.2 rsuv=944) EGFR (BEAKER) (test 75 mL/min/1.73 sq m ESTIMATED GFR IS NOT xncz=6883) ACCURATE CREATININE CLEARANCE IN PREDICTING GLOMERULAR FILTRATION RATE. ESTIMATED GFR IS NOT APPLICABLE FOR DIALYSIS PATIENTS. PROTHROMBIN TIME/[id number] 05:47:00 Test Item Value Reference Range Comments PROTIME (BEAKER) (test rokq=190) 31.6 seconds 11.7-14.7 INR (BEAKER) (test hsic=376) 3.1 <=5.9 RECOMMENDED COUMADIN/WARFARIN INR THERAPY RANGESSTANDARD DOSE: 2.0 - 3.0 Includes: PROPHYLAXIS forvenous thrombosis, systemic embolization; TREATMENT for venous thrombosis and/or pulmonary embolus.HIGH RISK: Target INR is 2.5-3.5 for patients with mechanical heart valves.CBC W/PLT COUNT & AUTO [id number] 05:35:00 Test Item Value Reference Range Comments WHITE BLOOD CELL COUNT (BEAKER) (test fgsz=922) 4.3 K/ L 3.5-10.5 RED BLOOD CELL COUNT (BEAKER) (test bqur=970) 3.62 M/ L 4.63-6.08 HEMOGLOBIN (BEAKER) (test yxap=406) 9.6 GM/DL 13.7-17.5 HEMATOCRIT (BEAKER) (test qnly=968) 31.5 % 40.1-51.0 MEAN CORPUSCULAR VOLUME (BEAKER) (test raoy=371) 87.0 fL 79.0-92.2 MEAN CORPUSCULAR HEMOGLOBIN (BEAKER) (test 26.5 pg 25.7-32.2 bdbx=175) MEAN CORPUSCULAR HEMOGLOBIN CONC (BEAKER) (test 30.5 GM/DL 32.3-36.5 snce=465) RED CELL DISTRIBUTION WIDTH (BEAKER) (test 15.4 % 11.6-14.4 rcbz=467) PLATELET COUNT (BEAKER) (test xdrj=611) 164 K/CU MM 150-450 MEAN PLATELET VOLUME (BEAKER) (test dhsv=373) 9.9 fL 9.4-12.4 NUCLEATED RED BLOOD CELLS (BEAKER) (test 0 /100 WBC 0-0 ddhf=268) NEUTROPHILS RELATIVE PERCENT (BEAKER) (test 57 % xxqk=698) LYMPHOCYTES RELATIVE PERCENT (BEAKER) (test 22 % mcuq=371) MONOCYTES RELATIVE PERCENT (BEAKER) (test 14 % juhl=433) EOSINOPHILS RELATIVE PERCENT (BEAKER) (test 6 % cckb=713) BASOPHILS RELATIVE PERCENT (BEAKER) (test 1 % deuy=647) NEUTROPHILS ABSOLUTE COUNT (BEAKER) (test 2.48 K/ L 1.78-5.38 qfuh=242) LYMPHOCYTES ABSOLUTE COUNT (BEAKER) (test 0.96 K/ L 1.32-3.57 ggrk=316) MONOCYTES ABSOLUTE COUNT (BEAKER) (test 0.59 K/ L 0.30-0.82 oqkn=572) EOSINOPHILS ABSOLUTE COUNT (BEAKER) (test 0.25 K/ L 0.04-0.54 gmdb=694) BASOPHILS ABSOLUTE COUNT (BEAKER) (test 0.03 K/ L 0.01-0.08 wfdg=302) IMMATURE GRANULOCYTES-RELATIVE PERCENT (BEAKER) 1 % 0-1 (test hfia=7313) TISSUE [id number] 16:28:00Surgical Pathology Report Case: [id number] Authorizing Provider: Nando Hdz MD Collected: 02/02/20181941 Ordering Location: [facility] Received: 02/03/2018 0813 Pathologist: Sidney Wright MD Specimen: Plaque ARTERY, RIGHT ALIZEALD, ENDARTERECTOMY:CALCIFIC ATHEROSCLEROTIC PLAQUE WITH EROSION AND ATTACHED ORGANIZING THROMBUS Signing Pathologist Direct Phone Line: [phone] signed by Sidney Wright MDon 02/09/2018 at 4:28 [id number]; [id number] femoral artery plaqueRight femoral artery plaqueThe specimen is received in a formalin-filled container and labeled with the patient's information and labeled "right femoral artery plaque and consists of two calcified fragments of tissue both measuring 2 cm in length ranging in diameter from 0.6 to 1 cm and separate segment of hemorrhagic calcified tissue measuring 2.5 x 1.5 x 1 cm in aggregate. Linux Admin sections are submitted A1 for decalcification. CG/pl [id number] 06:08:00 Test Item Value Reference Range Comments PHOSPHORUS (BEAKER) (test bbsd=536) 2.2 mg/dL 2.3-4.7 [id number] 06:08:00 Test Item Value Reference Range Comments MAGNESIUM (BEAKER) (test cggh=648) 2.1 mg/dL 1.6-2.6 BASIC METABOLIC [id number] 06:08:00 Test Item Value Reference Range Comments SODIUM (BEAKER) (test 131 meq/L 136-145 isny=219) POTASSIUM (BEAKER) (test 3.5 meq/L 3.5-5.1 xbsb=816) CHLORIDE (BEAKER) (test 101 meq/L 98-107 lsig=145) CO2 (BEAKER) (test 26 meq/L 22-29 fohv=194) BLOOD UREA NITROGEN 12 mg/dL 7-21 (BEAKER) (test wiiq=902) CREATININE (BEAKER) (test 0.95 mg/dL 0.57-1.25 nrcc=596) GLUCOSE RANDOM (BEAKER) 96 mg/dL 70-105 (test bxqo=254) CALCIUM (BEAKER) (test 8.4 mg/dL 8.4-10.2 hnso=206) EGFR (BEAKER) (test 77 mL/min/1.73 sq m ESTIMATED GFR IS NOT zcdu=9868) ACCURATE CREATININE CLEARANCE IN PREDICTING GLOMERULAR FILTRATION RATE. ESTIMATED GFR IS NOT APPLICABLE FOR DIALYSIS PATIENTS. CBC (HEMOGRAM ONLY)2018-02-05 05:30:00 Test Item Value Reference Range Comments WHITE BLOOD CELL COUNT (BEAKER) (test mldf=455) 6.5 K/ L 3.5-10.5 RED BLOOD CELL COUNT (BEAKER) (test gaop=249) 3.24 M/ L 4.63-6.08 HEMOGLOBIN (BEAKER) (test jasz=964) 8.5 GM/DL 13.7-17.5 HEMATOCRIT (BEAKER) (test mutk=108) 27.4 % 40.1-51.0 MEAN CORPUSCULAR VOLUME (BEAKER) (test odto=251) 84.6 fL 79.0-92.2 MEAN CORPUSCULAR HEMOGLOBIN (BEAKER) (test 26.2 pg 25.7-32.2 sajv=116) MEAN CORPUSCULAR HEMOGLOBIN CONC (BEAKER) (test 31.0 GM/DL 32.3-36.5 jwwy=769) RED CELL DISTRIBUTION WIDTH (BEAKER) (test 18.4 % 11.6-14.4 owma=723) PLATELET COUNT (BEAKER) (test jzbm=990) 127 K/CU MM 150-450 MEAN PLATELET VOLUME (BEAKER) (test lkfz=384) 9.8 fL 9.4-12.4 NUCLEATED RED BLOOD CELLS (BEAKER) (test 0 /100 WBC 0-0 mmdf=426) HEMOGLOBIN AND [id number] 11:55:00 Test Item Value Reference Range Comments HEMOGLOBIN (BEAKER) (test gewq=551) 8.4 GM/DL 13.7-17.5 HEMATOCRIT (BEAKER) (test ghzj=134) 28.9 % 40.1-51.0 [id number] 04:57:00 Test Item Value Reference Range Comments PHOSPHORUS (BEAKER) (test gbej=144) 2.5 mg/dL 2.3-4.7 [id number] 04:57:00 Test Item Value Reference Range Comments MAGNESIUM (BEAKER) (test uuaf=726) 1.7 mg/dL 1.6-2.6 BASIC METABOLIC [id number] 04:57:00 Test Item Value Reference Range Comments SODIUM (BEAKER) (test 131 meq/L 136-145 etrw=401) POTASSIUM (BEAKER) (test 3.9 meq/L 3.5-5.1 dtoa=332) CHLORIDE (BEAKER) (test 102 meq/L 98-107 ublh=354) CO2 (BEAKER) (test 25 meq/L 22-29 cgvr=326) BLOOD UREA NITROGEN 9 mg/dL 7-21 (BEAKER) (test gtfk=232) CREATININE (BEAKER) (test 0.85 mg/dL 0.57-1.25 qckd=658) GLUCOSE RANDOM (BEAKER) 106 mg/dL 70-105 (test pbxq=041) CALCIUM (BEAKER) (test 8.2 mg/dL 8.4-10.2 sjqh=381) EGFR (BEAKER) (test 88 mL/min/1.73 sq m ESTIMATED GFR IS NOT tlwl=6925) ACCURATE CREATININE CLEARANCE IN PREDICTING GLOMERULAR FILTRATION RATE. ESTIMATED GFR IS NOT APPLICABLE FOR DIALYSIS PATIENTS. CBC (HEMOGRAM ONLY)2018-02-04 04:35:00 Test Item Value Reference Range Comments WHITE BLOOD CELL COUNT (BEAKER) (test fisb=188) 9.4 K/ L 3.5-10.5 RED BLOOD CELL COUNT (BEAKER) (test kwbc=943) 3.15 M/ L 4.63-6.08 HEMOGLOBIN (BEAKER) (test vjfz=674) 8.1 GM/DL 13.7-17.5 HEMATOCRIT (BEAKER) (test dtjg=114) 25.5 % 40.1-51.0 MEAN CORPUSCULAR VOLUME (BEAKER) (test usyi=973) 81.0 fL 79.0-92.2 MEAN CORPUSCULAR HEMOGLOBIN (BEAKER) (test 25.7 pg 25.7-32.2 dhvi=723) MEAN CORPUSCULAR HEMOGLOBIN CONC (BEAKER) (test 31.8 GM/DL 32.3-36.5 mhvt=435) RED CELL DISTRIBUTION WIDTH (BEAKER) (test 18.2 % 11.6-14.4 bfan=224) PLATELET COUNT (BEAKER) (test ixna=530) 125 K/CU MM 150-450 MEAN PLATELET VOLUME (BEAKER) (test hqxf=540) 10.1 fL 9.4-12.4 NUCLEATED RED BLOOD CELLS (BEAKER) (test 0 /100 WBC 0-0 ikpy=989) CBC W/PLT COUNT & AUTO [id number] 15:56:00 Test Item Value Reference Range Comments WHITE BLOOD CELL COUNT (BEAKER) (test doht=334) 13.1 K/ L 3.5-10.5 RED BLOOD CELL COUNT (BEAKER) (test gpgf=478) 4.01 M/ L 4.63-6.08 HEMOGLOBIN (BEAKER) (test tnne=754) 10.2 GM/DL 13.7-17.5 HEMATOCRIT (BEAKER) (test imme=721) 32.3 % 40.1-51.0 MEAN CORPUSCULAR VOLUME (BEAKER) (test sbvl=376) 80.5 fL 79.0-92.2 MEAN CORPUSCULAR HEMOGLOBIN (BEAKER) (test 25.4 pg 25.7-32.2 bokv=732) MEAN CORPUSCULAR HEMOGLOBIN CONC (BEAKER) (test 31.6 GM/DL 32.3-36.5 zeae=528) RED CELL DISTRIBUTION WIDTH (BEAKER) (test 18.1 % 11.6-14.4 dirj=382) PLATELET COUNT (BEAKER) (test uovq=922) 162 K/CU MM 150-450 MEAN PLATELET VOLUME (BEAKER) (test sogb=638) 10.3 fL 9.4-12.4 NUCLEATED RED BLOOD CELLS (BEAKER) (test 0 /100 WBC 0-0 esrp=298) NEUTROPHILS RELATIVE PERCENT (BEAKER) (test 86 % einv=399) LYMPHOCYTES RELATIVE PERCENT (BEAKER) (test 5 % wxec=729) MONOCYTES RELATIVE PERCENT (BEAKER) (test 7 % pbnc=379) EOSINOPHILS RELATIVE PERCENT (BEAKER) (test 0 % vvtj=408) BASOPHILS RELATIVE PERCENT (BEAKER) (test 0 % lbqm=806) NEUTROPHILS ABSOLUTE COUNT (BEAKER) (test 11.26 K/ L 1.78-5.38 dcve=377) LYMPHOCYTES ABSOLUTE COUNT (BEAKER) (test 0.70 K/ L 1.32-3.57 bhdi=411) MONOCYTES ABSOLUTE COUNT (BEAKER) (test 0.95 K/ L 0.30-0.82 djvl=369) EOSINOPHILS ABSOLUTE COUNT (BEAKER) (test 0.00 K/ L 0.04-0.54 nfjt=779) BASOPHILS ABSOLUTE COUNT (BEAKER) (test 0.04 K/ L 0.01-0.08 tflf=969) IMMATURE GRANULOCYTES-RELATIVE PERCENT (BEAKER) 1 % 0-1 (test irud=7109) COMPREHENSIVE METABOLIC [id number] 05:49:00 Test Item Value Reference Range Comments TOTAL PROTEIN (BEAKER) 5.7 gm/dL 6.0-8.3 (test okiq=592) ALBUMIN (BEAKER) (test 3.3 g/dL 3.5-5.0 uxrf=9591) ALKALINE PHOSPHATASE 133 U/L 40-150 (BEAKER) (test ewpl=181) BILIRUBIN TOTAL (BEAKER) 0.8 mg/dL 0.2-1.2 (test xnad=521) SODIUM (BEAKER) (test 134 meq/L 136-145 qspf=283) POTASSIUM (BEAKER) (test 4.1 meq/L 3.5-5.1 zadl=248) CHLORIDE (BEAKER) (test 106 meq/L 98-107 mlqz=626) CO2 (BEAKER) (test 19 meq/L 22-29 wnsn=451) BLOOD UREA NITROGEN 6 mg/dL 7-21 (BEAKER) (test evmr=285) CREATININE (BEAKER) (test 0.88 mg/dL 0.57-1.25 rxco=314) GLUCOSE RANDOM (BEAKER) 163 mg/dL 70-105 (test zwuw=798) CALCIUM (BEAKER) (test 8.3 mg/dL 8.4-10.2 jlhs=872) AST (SGOT) (BEAKER) (test 12 U/L 5-34 llwh=141) ALT (SGPT) (BEAKER) (test < U/L 6-55 rbef=915) EGFR (BEAKER) (test 85 mL/min/1.73 sq m ESTIMATED GFR IS NOT oejb=2111) ACCURATE CREATININE CLEARANCE IN PREDICTING GLOMERULAR FILTRATION RATE. ESTIMATED GFR IS NOT APPLICABLE FOR DIALYSIS PATIENTS. [id number] 05:48:00 Test Item Value Reference Range Comments PHOSPHORUS (BEAKER) (test jvys=548) 2.9 mg/dL 2.3-4.7 [id number] 05:48:00 Test Item Value Reference Range Comments MAGNESIUM (BEAKER) (test qlck=645) 1.7 mg/dL 1.6-2.6 CBC W/PLT COUNT & AUTO [id number] 04:20:00 Test Item Value Reference Range Comments WHITE BLOOD CELL COUNT (BEAKER) (test ynpt=465) 15.4 K/ L 3.5-10.5 RED BLOOD CELL COUNT (BEAKER) (test kbkl=556) 4.13 M/ L 4.63-6.08 HEMOGLOBIN (BEAKER) (test ouyl=288) 10.7 GM/DL 13.7-17.5 HEMATOCRIT (BEAKER) (test uuxp=857) 34.3 % 40.1-51.0 MEAN CORPUSCULAR VOLUME (BEAKER) (test zjyr=068) 83.1 fL 79.0-92.2 MEAN CORPUSCULAR HEMOGLOBIN (BEAKER) (test 25.9 pg 25.7-32.2 amlk=356) MEAN CORPUSCULAR HEMOGLOBIN CONC (BEAKER) (test 31.2 GM/DL 32.3-36.5 nfmb=329) RED CELL DISTRIBUTION WIDTH (BEAKER) (test 17.9 % 11.6-14.4 adtl=836) PLATELET COUNT (BEAKER) (test bdgt=630) 33 K/CU MM 150-450 MEAN PLATELET VOLUME (BEAKER) (test txpg=908) 10.0 fL 9.4-12.4 NUCLEATED RED BLOOD CELLS (BEAKER) (test 0 /100 WBC 0-0 nglf=957) NEUTROPHILS RELATIVE PERCENT (BEAKER) (test 91 % wpwt=586) LYMPHOCYTES RELATIVE PERCENT (BEAKER) (test 3 % cnzb=507) MONOCYTES RELATIVE PERCENT (BEAKER) (test 4 % qgao=771) EOSINOPHILS RELATIVE PERCENT (BEAKER) (test 0 % tnsn=093) BASOPHILS RELATIVE PERCENT (BEAKER) (test 0 % gfkp=067) NEUTROPHILS ABSOLUTE COUNT (BEAKER) (test 14.01 K/ L 1.78-5.38 gqyz=681) LYMPHOCYTES ABSOLUTE COUNT (BEAKER) (test 0.46 K/ L 1.32-3.57 mvzk=830) MONOCYTES ABSOLUTE COUNT (BEAKER) (test nvew=199) 0.64 K/ L 0.30-0.82 EOSINOPHILS ABSOLUTE COUNT (BEAKER) (test 0.01 K/ L 0.04-0.54 xaor=301) BASOPHILS ABSOLUTE COUNT (BEAKER) (test fgpz=641) 0.05 K/ L 0.01-0.08 IMMATURE GRANULOCYTES-RELATIVE PERCENT (BEAKER) 1 % 0-1 (test dcuo=6406) VANCOMYCIN LEVEL, [id number] 23:58:00 Test Item Value Reference Range Comments VANCOMYCIN TROUGH (BEAKER) (test hahs=476) < ug/mL 10.0-20.0 PROTHROMBIN TIME/[id number] 23:27:00 Test Item Value Reference Range Comments PROTIME (BEAKER) (test tnie=666) 15.6 seconds 11.7-14.7 INR (BEAKER) (test cjmj=582) 1.2 <=5.9 RECOMMENDED COUMADIN/WARFARIN INR THERAPY RANGESSTANDARD DOSE: 2.0 - 3.0 Includes: PROPHYLAXIS forvenous thrombosis, systemic embolization; TREATMENT for venous thrombosis and/or pulmonary embolus.HIGH RISK: Target INR is 2.5-3.5 for patients with mechanical heart valves.[id number] 23:27:00 Test Item Value Reference Range Comments FIBRINOGEN LEVEL (BEAKER) (test hmsn=436) 276 mg/dl 225-434 [id number] 23:27:00 Test Item Value Reference Range Comments PARTIAL THROMBOPLASTIN TIME (BEAKER) (test 29.8 seconds 22.5-36.0 ispo=303) CBC W/PLT COUNT & AUTO [id number] 23:22:00 Test Item Value Reference Range Comments WHITE BLOOD CELL COUNT (BEAKER) (test qcpc=677) 18.8 K/ L 3.5-10.5 RED BLOOD CELL COUNT (BEAKER) (test kogb=008) 4.49 M/ L 4.63-6.08 HEMOGLOBIN (BEAKER) (test kfjd=931) 11.3 GM/DL 13.7-17.5 HEMATOCRIT (BEAKER) (test ozdm=883) 37.7 % 40.1-51.0 MEAN CORPUSCULAR VOLUME (BEAKER) (test awro=216) 84.0 fL 79.0-92.2 MEAN CORPUSCULAR HEMOGLOBIN (BEAKER) (test 25.2 pg 25.7-32.2 wsjx=264) MEAN CORPUSCULAR HEMOGLOBIN CONC (BEAKER) (test 30.0 GM/DL 32.3-36.5 wbgw=969) RED CELL DISTRIBUTION WIDTH (BEAKER) (test 17.5 % 11.6-14.4 ldbs=415) PLATELET COUNT (BEAKER) (test yzpp=764) 196 K/CU MM 150-450 MEAN PLATELET VOLUME (BEAKER) (test vpju=371) 10.0 fL 9.4-12.4 NUCLEATED RED BLOOD CELLS (BEAKER) (test 0 /100 WBC 0-0 jgvn=772) NEUTROPHILS RELATIVE PERCENT (BEAKER) (test 89 % ndzl=278) LYMPHOCYTES RELATIVE PERCENT (BEAKER) (test 3 % bthx=283) MONOCYTES RELATIVE PERCENT (BEAKER) (test 6 % efgj=238) EOSINOPHILS RELATIVE PERCENT (BEAKER) (test 0 % xvvx=146) BASOPHILS RELATIVE PERCENT (BEAKER) (test 0 % gedm=002) NEUTROPHILS ABSOLUTE COUNT (BEAKER) (test 16.79 K/ L 1.78-5.38 oysk=731) LYMPHOCYTES ABSOLUTE COUNT (BEAKER) (test 0.60 K/ L 1.32-3.57 wtgv=347) MONOCYTES ABSOLUTE COUNT (BEAKER) (test 1.17 K/ L 0.30-0.82 tccg=993) EOSINOPHILS ABSOLUTE COUNT (BEAKER) (test 0.02 K/ L 0.04-0.54 lxgo=280) BASOPHILS ABSOLUTE COUNT (BEAKER) (test 0.04 K/ L 0.01-0.08 setd=818) IMMATURE GRANULOCYTES-RELATIVE PERCENT (BEAKER) 1 % 0-1 (test cptu=8455) [id number] 23:21:00 Test Item Value Reference Range Comments PHOSPHORUS (BEAKER) (test bavs=976) 3.1 mg/dL 2.3-4.7 [id number] 23:21:00 Test Item Value Reference Range Comments MAGNESIUM (BEAKER) (test ptmm=268) 1.7 mg/dL 1.6-2.6 BASIC METABOLIC [id number] 23:21:00 Test Item Value Reference Range Comments SODIUM (BEAKER) (test 133 meq/L 136-145 lmjz=391) POTASSIUM (BEAKER) (test 4.2 meq/L 3.5-5.1 mzlb=223) CHLORIDE (BEAKER) (test 105 meq/L 98-107 oqnz=240) CO2 (BEAKER) (test 17 meq/L 22-29 evdi=060) BLOOD UREA NITROGEN 7 mg/dL 7-21 (BEAKER) (test ejlk=299) CREATININE (BEAKER) (test 0.99 mg/dL 0.57-1.25 pjqn=542) GLUCOSE RANDOM (BEAKER) 155 mg/dL 70-105 (test hlpa=780) CALCIUM (BEAKER) (test 8.3 mg/dL 8.4-10.2 qcfr=620) EGFR (BEAKER) (test 74 mL/min/1.73 sq m ESTIMATED GFR IS NOT vbes=6728) ACCURATE CREATININE CLEARANCE IN PREDICTING GLOMERULAR FILTRATION RATE. ESTIMATED GFR IS NOT APPLICABLE FOR DIALYSIS PATIENTS. HEPATIC FUNCTION [id number] 23:21:00 Test Item Value Reference Range Comments TOTAL PROTEIN (BEAKER) (test lvat=763) 5.8 gm/dL 6.0-8.3 ALBUMIN (BEAKER) (test cdas=5778) 3.5 g/dL 3.5-5.0 BILIRUBIN TOTAL (BEAKER) (test vvpy=435) 1.5 mg/dL 0.2-1.2 BILIRUBIN DIRECT (BEAKER) (test dbih=450) 0.8 mg/dL 0.1-0.5 ALKALINE PHOSPHATASE (BEAKER) (test ehlx=305) 142 U/L 40-150 AST (SGOT) (BEAKER) (test qodv=426) 12 U/L 5-34 ALT (SGPT) (BEAKER) (test xktn=746) 7 U/L 6-55 LACTIC ACID, ARTERIAL, WHOLE [id number] 23:15:00 Test Item Value Reference Range Comments LACTATE BLOOD ARTERIAL (2) (BEAKER) (test 1.7 mmol/L 0.5-2.2 cykm=2889) Effective 12/12/2015: Units/Reference Range ChangeNew: 0.5-2.2 mmol/L Previous: 5 -20 mg/dLRAD, CHEST, 1 VIEW, NON [id number] 23:12:00Reason for exam:->s/ p cardiac surgeryShould this [...] MDReport Verified Date/Time: 02/02/2018 23:12:37 Reading Location: [facility] B1 [id number] Consult Reading Room Electronicallysigned by: DENZEL LANGLEY MD on 02/02/2018 11:12 PMHEMOGLOBIN AND [id number] 23:06:00 Test Item Value Reference Range Comments HEMOGLOBIN (BEAKER) (test fans=364) 11.3 GM/DL 13.7-17.5 HEMATOCRIT (BEAKER) (test aowf=201) 37.7 % 40.1-51.0 CALCIUM, [id number] 22:57:00 Test Item Value Reference Range Comments CALCIUM IONIZED (BEAKER) (test jqyj=945) 1.02 mmol/L 1.12-1.27 PH, BLOOD (BEAKER) (test ghsh=6248) 7.38 OXYGEN SATURATION, [id number] 22:56:00 Test Item Value Reference Range Comments O2 SATURATION (MEASURED) (BEAKER) (test enic=7105) 72.2 % PROTHROMBIN TIME/[id number] 19:20:00 Test Item Value Reference Range Comments PROTIME (BEAKER) (test pxcw=009) 17.6 seconds 11.7-14.7 INR (BEAKER) (test vavx=994) 1.5 <=5.9 RECOMMENDED COUMADIN/WARFARIN INR THERAPY RANGESSTANDARD DOSE: 2.0 - 3.0 Includes: PROPHYLAXIS forvenous thrombosis, systemic embolization; TREATMENT for venous thrombosis and/or pulmonary embolus.HIGH RISK: Target INR is 2.5-3.5 for patients with mechanical heart valves.[id number] 19:20:00 Test Item Value Reference Range Comments FIBRINOGEN LEVEL (BEAKER) (test avox=791) 240 mg/dl 225-434 [id number] 19:20:00 Test Item Value Reference Range Comments PARTIAL THROMBOPLASTIN TIME (BEAKER) (test 33.3 seconds 22.5-36.0 vyqm=418) PLATELET [id number] 19:00:00 Test Item Value Reference Range Comments PLATELET COUNT (BEAKER) (test kwhg=468) 149 K/CU MM 150-450 POTASSIUM-STAT [id number] 18:54:00 Test Item Value Reference Range Comments POTASSIUM (BEAKER) (test yncp=629) 4.2 meq/L 3.6-5.5 HEMOGLOBIN-STAT [id number] 18:54:00 Test Item Value Reference Range Comments HEMOGLOBIN (BEAKER) (test gstl=722) 9.9 g/dL 13.0-16.8 HEMATOCRIT-STAT [id number] 18:54:00 Test Item Value Reference Range Comments HEMATOCRIT (BEAKER) (test sjqg=544) 29.0 % 40.0-50.0 BLOOD GAS, [id number] 18:54:00 Test Item Value Reference Range Comments PH ARTERIAL (BEAKER) (test haxq=735) 7.37 7.35-7.45 PCO2 ARTERIAL (BEAKER) (test hghc=500) 39 mmHg 35-45 PO2 ARTERIAL (BEAKER) (test wohe=072) 229 mmHg 80-90 O2 SATURATION ARTERIAL (BEAKER) (test oome=334) 99.5 % 96.0-97.0 HCO3 ARTERIAL (BEAKER) (test xfoe=329) 22 mmol/L 21-29 BASE EXCESS ARTERIAL (BEAKER) (test pmek=564) -3.4 mmol/L -2.0-3.0 PATIENT TEMPERATURE (BEAKER) (test olrq=2711) 37.0 C SODIUM NA-STAT [id number] 18:54:00 Test Item Value Reference Range Comments SODIUM (BEAKER) (test eawb=393) 133 meq/L 135-148 GLUCOSE-STAT [id number] 18:54:00 Test Item Value Reference Range Comments GLUCOSE RANDOM (BEAKER) (test jkgm=539) 134 mg/dL 70-110 HGB/HCT (H&H) - STAT [id number] 18:54:00 Test Item Value Reference Range Comments HEMOGLOBIN (BEAKER) (test thnx=365) 9.9 GM/DL 13.0-16.8 HEMATOCRIT (BEAKER) (test pjtk=689) 29.0 % 40.0-50.0 CALCIUM, [id number] 18:54:00 Test Item Value Reference Range Comments CALCIUM IONIZED (BEAKER) (test ctkd=498) 1.03 mmol/L 1.12-1.27 PH, BLOOD (BEAKER) (test bocf=9857) 7.37 CALCIUM, [id number] 18:13:00 Test Item Value Reference Range Comments CALCIUM IONIZED (BEAKER) (test hjoi=437) 1.02 mmol/L 1.12-1.27 PH, BLOOD (BEAKER) (test qlhf=7738) 7.36 [id number] 17:42:00 Test Item Value Reference Range Comments ACTIVATED CLOTTING TIME 279 sec TESTED AT [place] [address] [address] (BEAKER) (test zlul=864) [place] [address] [id number] 17:42:00 Test Item Value Reference Range Comments ACTIVATED CLOTTING TIME 224 sec TESTED AT [place] [address] [address] (BEAKER) (test mjjc=469) [place] [address] [id number] 17:42:00 Test Item Value Reference Range Comments ACTIVATED CLOTTING TIME 158 sec TESTED AT [place] [address] [facility] (test vxlx=576) [place] [address] HGB/HCT (H&H) - STAT [id number] 16:30:00 Test Item Value Reference Range Comments HEMOGLOBIN (BEAKER) (test lori=412) 9.9 GM/DL 13.0-16.8 HEMATOCRIT (BEAKER) (test teit=882) 29.0 % 40.0-50.0 POTASSIUM-STAT [id number] 16:30:00 Test Item Value Reference Range Comments POTASSIUM (BEAKER) (test rtwd=997) 3.7 meq/L 3.6-5.5 SODIUM NA-STAT [id number] 16:30:00 Test Item Value Reference Range Comments SODIUM (BEAKER) (test lyoh=299) 134 meq/L 135-148 GLUCOSE-STAT [id number] 16:30:00 Test Item Value Reference Range Comments GLUCOSE RANDOM (BEAKER) (test yxyk=007) 105 mg/dL 70-110 [id number] 16:17:00 Test Item Value Reference Range Comments ACTIVATED CLOTTING TIME 301 sec TESTED AT [place] [address] [address] (BEAKER) (test rzfa=329) [place] [address] BLOOD GAS, [id number] 16:16:00 Test Item Value Reference Range Comments PH ARTERIAL (BEAKER) (test jlgs=313) 7.42 7.35-7.45 PCO2 ARTERIAL (BEAKER) (test giiw=529) 40 mmHg 35-45 PO2 ARTERIAL (BEAKER) (test tfxq=974) 205 mmHg 80-90 O2 SATURATION ARTERIAL (BEAKER) (test vfgm=029) 99.4 % 96.0-97.0 HCO3 ARTERIAL (BEAKER) (test crha=085) 25 mmol/L 21-29 BASE EXCESS ARTERIAL (BEAKER) (test ilgk=878) 0.8 mmol/L -2.0-3.0 PATIENT TEMPERATURE (BEAKER) (test refw=3799) 37.0 C CALCIUM, [id number] 16:11:00 Test Item Value Reference Range Comments CALCIUM IONIZED (BEAKER) (test fsef=915) 1.09 mmol/L 1.12-1.27 PH, BLOOD (BEAKER) (test xadl=8821) 7.42 MR, MRA, EXTREMITY, LOWER, WITHOUT FOLLOW, WITH [id number] 17:43: 00Bilateral extremitiesNando Hdz MD [facility] FACKAISER MEDICAL CENTERMukesh Hdz MD [facility] FACP [facility] at [facility] [place] ClinicCo Propeller Engineer of PVD Services at [facility]/PIOTRGaebler [facility] at [address] [place] [email or web address] [email or web address] REPORT MRA of the lower extremities, [...] reconstruction was performed by an independent workstation ([employer]). Please refer to the contrast sheetscanned in [...] CT scan. The proximal abdominal aorta is [place]. The celiac axis, SMA are patent with [...] coil embolisation procedure as per EPIC. The [place] left external iliac artery and the left [...] centimeters of the left SFA could be [place]. However, there is likely a left femoral [...] posterior tibial artery. In the right, the [place] right SFA is seen to be occluded. [...] though thereafter, it is occluded. 4. The [place] left SFA is likely occluded and a left femoral to distal popliteal bypass graft is identified that is patent with no proximal or distal anastomotic stenosis. Essentially three-vessel runoff is seen in the left lower extremity. 5. In the right, the [place] right SFA is occluded. It appears patient [...] MDReport Verified Date/Time: 01/28/2018 17:43:09 Reading Location: [place] [address] Cardiology MRI [facility] METABOLIC [id number] 07 :36:00 Test Item Value Reference Range Comments SODIUM (BEAKER) (test 135 meq/L 136-145 lgrv=472) POTASSIUM (BEAKER) (test 4.3 meq/L 3.5-5.1 ucra=012) CHLORIDE (BEAKER) (test 103 meq/L 98-107 trrg=449) CO2 (BEAKER) (test 25 meq/L 22-29 carx=778) BLOOD UREA NITROGEN 8 mg/dL 7-21 (BEAKER) (test geaq=183) CREATININE (BEAKER) (test 1.09 mg/dL 0.57-1.25 rlmx=984) GLUCOSE RANDOM (BEAKER) 92 mg/dL 70-105 (test xsjz=821) CALCIUM (BEAKER) (test 8.6 mg/dL 8.4-10.2 edhw=373) EGFR (BEAKER) (test 66 mL/min/1.73 sq m ESTIMATED GFR IS NOT hswq=2873) ACCURATE CREATININE CLEARANCE IN PREDICTING GLOMERULAR FILTRATION RATE. ESTIMATED GFR IS NOT APPLICABLE FOR DIALYSIS PATIENTS. CBC (HEMOGRAM ONLY)2018-01-28 07:17:00 Test Item Value Reference Range Comments WHITE BLOOD CELL COUNT (BEAKER) (test kqkv=416) 5.4 K/ L 3.5-10.5 RED BLOOD CELL COUNT (BEAKER) (test aqdz=478) 3.83 M/ L 4.63-6.08 HEMOGLOBIN (BEAKER) (test iixh=558) 9.6 GM/DL 13.7-17.5 HEMATOCRIT (BEAKER) (test ixky=520) 31.1 % 40.1-51.0 MEAN CORPUSCULAR VOLUME (BEAKER) (test tavn=345) 81.2 fL 79.0-92.2 MEAN CORPUSCULAR HEMOGLOBIN (BEAKER) (test 25.1 pg 25.7-32.2 obsh=341) MEAN CORPUSCULAR HEMOGLOBIN CONC (BEAKER) (test 30.9 GM/DL 32.3-36.5 lrqb=095) RED CELL DISTRIBUTION WIDTH (BEAKER) (test 18.7 % 11.6-14.4 enae=117) PLATELET COUNT (BEAKER) (test ibck=301) 167 K/CU MM 150-450 MEAN PLATELET VOLUME (BEAKER) (test fdab=444) 9.4 fL 9.4-12.4 NUCLEATED RED BLOOD CELLS (BEAKER) (test 0 /100 WBC 0-0 iomi=686) PROTHROMBIN [id number] 14:15:00 Test Item Value Reference Range Comments PROTIME (BEAKER) (test cpmp=108) 14.8 seconds 11.7-14.7 INR (BEAKER) (test xbtj=259) 1.2 <=5.9 RECOMMENDED COUMADIN/WARFARIN INR THERAPY RANGESSTANDARD DOSE: 2.0 - 3.0 Includes: PROPHYLAXIS forvenous thrombosis, systemic embolization; TREATMENT for venous thrombosis and/or pulmonary embolus.HIGH RISK: Target INR is 2.5-3.5 for patients with mechanical heart valves.Within 24 hours, if on CoumadinBASIC METABOLIC [id number] 06:41:00 Test Item Value Reference Range Comments SODIUM (BEAKER) (test 131 meq/L 136-145 iyjj=813) POTASSIUM (BEAKER) (test 3.8 meq/L 3.5-5.1 hidx=551) CHLORIDE (BEAKER) (test 96 meq/L 98-107 otsu=372) CO2 (BEAKER) (test 28 meq/L 22-29 xptd=539) BLOOD UREA NITROGEN 9 mg/dL 7-21 (BEAKER) (test dujx=507) CREATININE (BEAKER) (test 0.95 mg/dL 0.57-1.25 sljv=055) GLUCOSE RANDOM (BEAKER) 110 mg/dL 70-105 (test tnys=060) CALCIUM (BEAKER) (test 8.4 mg/dL 8.4-10.2 ktds=168) EGFR (BEAKER) (test 77 mL/min/1.73 sq m ESTIMATED GFR IS NOT nmmp=1309) ACCURATE CREATININE CLEARANCE IN PREDICTING GLOMERULAR FILTRATION RATE. ESTIMATED GFR IS NOT APPLICABLE FOR DIALYSIS PATIENTS. CBC (HEMOGRAM ONLY)2017-12-10 05:53:00 Test Item Value Reference Range Comments WHITE BLOOD CELL COUNT (BEAKER) (test indw=545) 8.3 K/ L 3.5-10.5 RED BLOOD CELL COUNT (BEAKER) (test dhqf=036) 3.40 M/ L 4.63-6.08 HEMOGLOBIN (BEAKER) (test khsm=970) 8.3 GM/DL 13.7-17.5 HEMATOCRIT (BEAKER) (test rxgq=008) 27.9 % 40.1-51.0 MEAN CORPUSCULAR VOLUME (BEAKER) (test remd=270) 82.1 fL 79.0-92.2 MEAN CORPUSCULAR HEMOGLOBIN (BEAKER) (test 24.4 pg 25.7-32.2 bmqq=210) MEAN CORPUSCULAR HEMOGLOBIN CONC (BEAKER) (test 29.7 GM/DL 32.3-36.5 rdmz=584) RED CELL DISTRIBUTION WIDTH (BEAKER) (test 20.0 % 11.6-14.4 pzpn=005) PLATELET COUNT (BEAKER) (test zltr=397) 276 K/CU MM 150-450 MEAN PLATELET VOLUME (BEAKER) (test srwi=173) 10.2 fL 9.4-12.4 NUCLEATED RED BLOOD CELLS (BEAKER) (test 0 /100 WBC 0-0 fxen=313) BLOOD GAS, [id number] 10:39:00 Test Item Value Reference Range Comments PH ARTERIAL (BEAKER) (test yqso=075) 7.33 7.35-7.45 PCO2 ARTERIAL (BEAKER) (test agyu=649) 48 mmHg 35-45 PO2 ARTERIAL (BEAKER) (test bjeu=856) 198 mmHg 80-90 O2 SATURATION ARTERIAL (BEAKER) (test gsnc=824) 99.3 % 96.0-97.0 HCO3 ARTERIAL (BEAKER) (test sjpf=200) 25 mmol/L 21-29 BASE EXCESS ARTERIAL (BEAKER) (test lhtx=851) -1.5 mmol/L -2.0-3.0 PATIENT TEMPERATURE (BEAKER) (test fobs=9493) 36.2 C FIO2 (BEAKER) (test unut=1780) 46.0 % SODIUM NA-STAT [id number] 10:39:00 Test Item Value Reference Range Comments SODIUM (BEAKER) (test burp=327) 131 meq/L 135-148 POTASSIUM-STAT [id number] 10:39:00 Test Item Value Reference Range Comments POTASSIUM (BEAKER) (test pwza=319) 3.1 meq/L 3.6-5.5 GLUCOSE-STAT [id number] 10:39:00 Test Item Value Reference Range Comments GLUCOSE RANDOM (BEAKER) (test wqwl=331) 121 mg/dL 70-110 HGB/HCT (H&H) - STAT [id number] 10:39:00 Test Item Value Reference Range Comments HEMOGLOBIN (BEAKER) (test gmyg=962) 8.1 g/dL 13.0-16.8 HEMATOCRIT (BEAKER) (test pofd=016) 24.0 % 40.0-50.0 [id number] 10:10:00 Test Item Value Reference Range Comments ACTIVATED CLOTTING TIME 224 sec TESTED AT [facility] [address] (BEAKER) (test moey=583) [place] [address] CBC (HEMOGRAM ONLY)2017-12-05 06:51:00 Test Item Value Reference Range Comments WHITE BLOOD CELL COUNT (BEAKER) (test ydiy=287) 6.4 K/ L 3.5-10.5 RED BLOOD CELL COUNT (BEAKER) (test zlci=481) 3.63 M/ L 4.63-6.08 HEMOGLOBIN (BEAKER) (test hfqv=061) 9.0 GM/DL 13.7-17.5 HEMATOCRIT (BEAKER) (test klid=858) 30.4 % 40.1-51.0 MEAN CORPUSCULAR VOLUME (BEAKER) (test aubm=284) 83.7 fL 79.0-92.2 MEAN CORPUSCULAR HEMOGLOBIN (BEAKER) (test 24.8 pg 25.7-32.2 fwyg=110) MEAN CORPUSCULAR HEMOGLOBIN CONC (BEAKER) (test 29.6 GM/DL 32.3-36.5 wicn=071) RED CELL DISTRIBUTION WIDTH (BEAKER) (test 20.3 % 11.6-14.4 sgye=875) PLATELET COUNT (BEAKER) (test ceyt=510) 275 K/CU MM 150-450 MEAN PLATELET VOLUME (BEAKER) (test wdzm=779) 9.8 fL 9.4-12.4 NUCLEATED RED BLOOD CELLS (BEAKER) (test 0 /100 WBC 0-0 qqyw=318) BASIC METABOLIC [id number] 06:44:00 Test Item Value Reference Range Comments SODIUM (BEAKER) (test 134 meq/L 136-145 fosx=202) POTASSIUM (BEAKER) (test 4.1 meq/L 3.5-5.1 wpkn=250) CHLORIDE (BEAKER) (test 102 meq/L 98-107 szgi=818) CO2 (BEAKER) (test 24 meq/L 22-29 syqh=994) BLOOD UREA NITROGEN 9 mg/dL 7-21 (BEAKER) (test rfsr=763) CREATININE (BEAKER) (test 1.01 mg/dL 0.57-1.25 feeq=335) GLUCOSE RANDOM (BEAKER) 93 mg/dL 70-105 (test oesz=163) CALCIUM (BEAKER) (test 8.7 mg/dL 8.4-10.2 xmgr=342) EGFR ([facility]) (test 72 mL/min/1.73 sq m ESTIMATED GFR IS NOT cncb=0972) ACCURATE CREATININE CLEARANCE IN PREDICTING GLOMERULAR FILTRATION RATE. ESTIMATED GFR IS NOT APPLICABLE FOR DIALYSIS PATIENTS. [id number] 12:39:00 Test Item Value Reference Range Comments ACTIVATED CLOTTING TIME 136 sec TESTED AT [address] ([facility]) (test hpkx=359) [place] [address] [id number] 11:51:00 Test Item Value Reference Range Comments ACTIVATED CLOTTING TIME 147 sec TESTED AT [address] ([facility]) (test sqpg=354) [place] [address] [id number] 09:21:00 Test Item Value Reference Range Comments ACTIVATED CLOTTING TIME 213 sec TESTED AT [address] ([facility]) (test aqjc=592) [place] [address] [id number] 08:58:00 Test Item Value Reference Range Comments ACTIVATED CLOTTING TIME 191 sec TESTED AT [address] ([facility]) (test anhe=831) [place] [address] [address], CTA [id number] 11:56:00Addendum BeginsREPORT STATUS:A Addendum: The images were reviewed with Dr. Hdz. 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 Arch vessel branching pattern is [...] 8.2 mm, respectively with mild tortuosity and tqaa-lu-xwfifkzu calcific atherosclerosis present. Right iliac limb is [...] dictated, however, the ordering physician is the [employer] OFFICER of the [facility] and therefore no recommendation would be necessary. [...] An addendum will be dictated by the Security Sergeant Radiologist regarding the nonvascular findings. Signed: Juwan Echols Verified Date/Time: 11/26/2017 16:25:25 Reading Location: [place] [address] Cardiology MRI Electronically signed by: JUWAN ECHOLS M.D. on 2017 11:56 AMCT, CTA, [id number] 11:56:00Addendum BeginsREPORT STATUS:A Addendum: The images were reviewed with Dr. Hdz. There is a missing dictation, specifically, despite the aortic bypass surgery the [place] left common iliac artery is still patent with retrograde filling from the left external iliac artery, with aneurysmal dilation identified. Image 466, it measures approximately 4.3 x 4.2 cm in diameter. Some intraluminal thrombus is seen. This is the left common iliac artery. The left internal iliac artery is also patent, with calcification present. Signed: Juwan Echols Verified Date/Time: 11/27/2017 11:56:33 Reading Location: [place] [address] Cardiology MRIAddendum EndsAddendum BeginsREPORT STATUS:A ADDENDUM: Study [...] Adryan Barrow Verified Date/Time: 18:03:42 Reading Location: [place] [address] Angio Body Reading RoomAddendum EndsFINAL REPORT CT [...] takeoff of the left renal artery with aizj-ir-jjpyqceu stenosis identified. Arch vessel branching pattern is [...] 8.2 mm, respectively with mild tortuosity and fdzp-gh-ozbdxrsk calcific atherosclerosis present. Right iliac limb is [...] dictated, however, the ordering physician is the [employer]F [employer] OFFICER of the [facility] and therefore no recommendation would be necessary. [...] An addendum will be dictated by the Security Sergeant Radiologist regarding the nonvascular findings. Signed: Juwan Echols MDReport Verified Date/Time: 11/26/2017 16:25:25 Reading Location: [place] [address] Cardiology MRI Electronically signed by: JUWAN ECHOLS M.D. on 2017 11:56 AMB-TYPE NATRIURETIC FACTOR (BNP)2017-11-26 18:03:00 Test Item Value Reference Range Comments B-TYPE NATRIURETIC PEPTIDE (BEAKER) (test 142 pg/mL 0-100 hgoy=015) COMPREHENSIVE METABOLIC [id number] 17:56:00 Test Item Value Reference Range Comments TOTAL PROTEIN (BEAKER) 6.8 gm/dL 6.0-8.3 (test fqkl=739) ALBUMIN (BEAKER) (test 3.9 g/dL 3.5-5.0 owro=1167) ALKALINE PHOSPHATASE 133 U/L 40-150 (BEAKER) (test mnjo=715) BILIRUBIN TOTAL (BEAKER) 0.4 mg/dL 0.2-1.2 (test bhbf=260) SODIUM (BEAKER) (test 135 meq/L 136-145 hidg=487) POTASSIUM (BEAKER) (test 4.3 meq/L 3.5-5.1 bqht=167) CHLORIDE (BEAKER) (test 99 meq/L 98-107 tqrf=613) CO2 (BEAKER) (test 26 meq/L 22-29 wotn=820) BLOOD UREA NITROGEN 6 mg/dL 7-21 (BEAKER) (test uuqb=975) CREATININE (BEAKER) (test 1.14 mg/dL 0.57-1.25 pgvj=598) GLUCOSE RANDOM (BEAKER) 104 mg/dL 70-105 (test veye=811) CALCIUM (BEAKER) (test 8.9 mg/dL 8.4-10.2 inox=543) AST (SGOT) (BEAKER) (test 12 U/L 5-34 opbd=817) ALT (SGPT) (BEAKER) (test 7 U/L 6-55 bdzp=159) EGFR (BEAKER) (test 63 mL/min/1.73 sq m ESTIMATED GFR IS NOT pphh=2032) ACCURATE CREATININE CLEARANCE IN PREDICTING GLOMERULAR FILTRATION RATE. ESTIMATED GFR IS NOT APPLICABLE FOR DIALYSIS PATIENTS. PROTHROMBIN [id number] 17:33:00 Test Item Value Reference Range Comments PROTIME (BEAKER) (test trsk=097) 16.5 seconds 11.7-14.7 INR (BEAKER) (test nezi=695) 1.3 <=5.9 RECOMMENDED COUMADIN/WARFARIN INR THERAPY RANGESSTANDARD DOSE: 2.0 - 3.0 Includes: PROPHYLAXIS forvenous thrombosis, systemic embolization; TREATMENT for venous thrombosis and/or pulmonary embolus.HIGH RISK: Target INR is 2.5-3.5 for patients with mechanical heart valves.CBC W/PLT COUNT & AUTO [id number] 17:24:00 Test Item Value Reference Range Comments WHITE BLOOD CELL COUNT (BEAKER) (test mguq=145) 7.7 K/ L 3.5-10.5 RED BLOOD CELL COUNT (BEAKER) (test aded=815) 3.66 M/ L 4.63-6.08 HEMOGLOBIN (BEAKER) (test imls=619) 9.1 GM/DL 13.7-17.5 HEMATOCRIT (BEAKER) (test awni=383) 31.7 % 40.1-51.0 MEAN CORPUSCULAR VOLUME (BEAKER) (test uvap=651) 86.6 fL 79.0-92.2 MEAN CORPUSCULAR HEMOGLOBIN (BEAKER) (test 24.9 pg 25.7-32.2 kjkt=465) MEAN CORPUSCULAR HEMOGLOBIN CONC (BEAKER) (test 28.7 GM/DL 32.3-36.5 rkvn=756) RED CELL DISTRIBUTION WIDTH (BEAKER) (test 19.5 % 11.6-14.4 wled=016) PLATELET COUNT (BEAKER) (test ntnf=255) 243 K/CU MM 150-450 MEAN PLATELET VOLUME (BEAKER) (test rbbj=295) 10.0 fL 9.4-12.4 NUCLEATED RED BLOOD CELLS (BEAKER) (test 0 /100 WBC 0-0 mcxm=286) NEUTROPHILS RELATIVE PERCENT (BEAKER) (test 73 % hysr=282) LYMPHOCYTES RELATIVE PERCENT (BEAKER) (test 13 % hqpn=816) MONOCYTES RELATIVE PERCENT (BEAKER) (test 9 % cubp=418) EOSINOPHILS RELATIVE PERCENT (BEAKER) (test 4 % soeo=494) BASOPHILS RELATIVE PERCENT (BEAKER) (test 1 % efkl=829) NEUTROPHILS ABSOLUTE COUNT (BEAKER) (test 5.64 K/ L 1.78-5.38 bdwy=948) LYMPHOCYTES ABSOLUTE COUNT (BEAKER) (test 0.98 K/ L 1.32-3.57 vdhv=201) MONOCYTES ABSOLUTE COUNT (BEAKER) (test 0.69 K/ L 0.30-0.82 ignu=369) EOSINOPHILS ABSOLUTE COUNT (BEAKER) (test 0.30 K/ L 0.04-0.54 nfuv=280) BASOPHILS ABSOLUTE COUNT (BEAKER) (test 0.05 K/ L 0.01-0.08 qhsu=655) IMMATURE GRANULOCYTES-RELATIVE PERCENT (BEAKER) 0 % 0-1 (test rbhk=0144) [id number] 12:34:00 Test Item Value Reference Range Comments POC-CREATININE (BEAKER) 1.1 mg/dL 0.6-1.3 TESTED AT [facility] [address] [facility] (test gqto=2704) [facility] [address] POC-EGFR (BEAKER) (test 65 mL/min/1.73M2 hppg=0108)
--- OUTSIDE RECORDS SUMMARY | 2018-10-02 16:42 | XMS REPORT ---
:1945 Author Organization eClinicalWorks Care Team Providers Name Role Phone Home [place] Provider Role Unavailable Allergies No Known Allergies Problems Problem Type Condition Code Onset Dates Condition Status Assessment Need for home health care Z74.2 Active Assessment Health [facility], active care Z78.9 Active coordination Assessment Gastrointestinal [...] Status Dosage System Date Date ProAir HFA [facility] [id number] 108 (90 Base) Active 2 puffs as MCG/ACT needed Inhalation every 6 hrs Prilosec [facility] 48106323571 20 MG Orally Active 1 capsule Once a day Lipitor [facility] 20344180764 10 MG Orally Active 1 tablet Once a day Vitamin D3 [facility] 99725863708 400 UNIT Orally Active 2 tablets Once a day Aspir-81 [facility] 54387155451 81 MG Orally Active 1 tablet Once a day Topamax [facility] 80624314861 25 MG Orally Active 1 tablet Once a day Breo Ellipta [facility] 12153179772 200-25 MCG/INH Active 1 puff Inhalation Once a day Lisinopril [facility] 91999301861 40 MG Orally Active 1 tablet Once a day Warfarin Sodium [facility] 11276385971 7.5 MG Orally Active 1 tablet Once a day Clonidine HCl [facility] 97252471500 0.1 MG Orally Active 1 tablet Twice a day at bedtime Amitriptyline HCl [facility] 31445306367 50 MG Orally Active 1 tablet Once a day Zanaflex [facility] 12950416721 4 MG Orally Active 1 tablet Three times a as needed day Primidone [facility] 38220692779 250 MG Orally Active 1 tablet Three times a day Norvasc [facility] 73426320698 5 MG Orally Active 1 tablet Once a day Results No Known Results Summary Purpose eClinicalWorks Submission
--- OUTSIDE RECORDS SUMMARY | 2018-10-02 16:42 | XMS REPORT ---
[...] Start Date End Date Status Dosage Lisinopril [facility] 38052700931 40 MG Orally Once Active 1 tablet a day Results No Known Results Summary Purpose eClinicalWorks Submission
--- OUTSIDE RECORDS SUMMARY | 2018-10-02 16:43 | XMS REPORT ---
[...] Start Date End Date Status Dosage Lisinopril [facility] 95469052298 40 MG Orally Once Active 1 tablet a day Results No Known Results Summary Purpose eClinicalWorks Submission
--- OUTSIDE RECORDS SUMMARY | 2018-10-02 16:43 | XMS REPORT ---
[...] Dosage System Date Date Amitriptyline HCl [facility] [place] 28224080352 50 MG Orally Active 1 tablet Once a day Results No Known Results Summary Purpose eClinicalWorks Submission
--- OUTSIDE RECORDS SUMMARY | 2018-10-02 16:43 | XMS REPORT ---
[...] Start Date End Date Status Dosage Lipitor [facility] 22261624029 10 MG Orally Once Active 1 tablet a day Results No Known Results Summary Purpose eClinicalWorks Submission
--- OUTSIDE RECORDS SUMMARY | 2018-10-02 16:43 | XMS REPORT ---
[...] HCl [facility] 84184755990 50 MG Orally Active 1 tablet Once a day Results No Known Results Summary Purpose eClinicalWorks Submission
--- OUTSIDE RECORDS SUMMARY | 2018-10-02 16:43 | XMS REPORT ---
[...] Date Status Dosage Lisinopril [facility] 12653515187 40 MG Orally Once Active 1 tablet a day Results No Known Results Summary Purpose eClinicalWorks Submission
--- OUTSIDE RECORDS SUMMARY | 2018-10-02 16:43 | XMS REPORT ---
[...] Status Dosage System Date Date Amitriptyline HCl [facility] 58278709777 50 MG Orally Active 1 tablet Once a day Clonidine HCl [facility] 27442968200 0.1 MG Orally Active 1 tablet Twice a day at bedtime Aspir-[address] [facility] 17871977913 81 MG Orally Active 1 tablet Once a day Topamax [facility] 96739410504 25 MG Orally Active 1 tablet Once a day Plavix [facility] 05096226316 75 MG Orally Active 1 tablet Once a day Lisinopril [facility] 06295101572 40 MG Orally Active 1 tablet Once a day ProAir HFA [facility] 45168851225 108 (90 Base) Active 2 puffs as MCG/ACT needed Inhalation every 6 hrs Lasix [facility] 92695052788 40 MG Orally Active 1 tablet Once a day Prilosec [facility] 91186323330 20 MG Orally Active 1 capsule Once a day Breo Ellipta [facility] 96584085461 200-25 MCG/INH Active 1 puff Inhalation Once a day Warfarin Sodium [facility] 11466071995 7.5 MG Orally Active 1 tablet Once a day Zanaflex [facility] 53878574078 4 MG Orally Active 1 tablet Three times a as needed day Primidone [facility] 64715739894 250 MG Orally Active 1 tablet Three times a day Lipitor [facility] 34143901269 10 MG Orally Active 1 tablet Once a day Norvasc [facility] 19172570363 5 MG Orally Active 1 tablet Once a day Vitamin D3 [facility] 29767997999 400 UNIT Orally Active 2 tablets Once a day Results No Known Results Summary Purpose eClinicalWorks Submission
--- OUTSIDE RECORDS SUMMARY | 2018-10-02 16:44 | XMS REPORT ---
[...] End Status Dosage System Date Date Primidone [facility] 22225392477 250 MG Orally Active 1 tablet Three times a day Breo Ellipta [facility] 89433767083 200-25 MCG/INH Active 1 puff Inhalation Once a day Lisinopril [facility] 88457205475 40 MG Orally Active 1 tablet Once a day Prilosec [facility] 84349629097 20 MG Orally Active 1 capsule Once a day ProAir HFA [facility] 48683689999 108 (90 Base) Active 2 puffs as MCG/ACT needed Inhalation every 6 hrs Lipitor [facility] 88815428980 10 MG Orally Active 1 tablet Once a day Topamax [facility] 71398601554 25 MG Orally Active 1 tablet Once a day Clonidine HCl [facility] 66777140908 0.1 MG Orally Active 1 tablet at Twice a day bedtime Carvedilol [facility] 84747009630 12.5 MG Orally Active as directed BID Aspir-81 [facility] 91674967130 81 MG Orally Active 1 tablet Once a day Amitriptyline [facility] 68465700346 50 MG Orally Active 1 tablet HCl Once a day Vitamin D3 [facility] 12329503001 400 UNIT Orally Active 2 tablets Once a day Zanaflex [facility] 02904445483 4 MG Orally Active 1 tablet as Three times a needed day Warfarin Sodium [facility] 82210549774 3 MG Orally Active 3 tablet Once a day Results No Known Results Summary Purpose eClinicalWorks Submission
--- OUTSIDE RECORDS SUMMARY | 2018-10-02 16:44 | XMS REPORT ---
[...] Start Date End Date Status Dosage Lisinopril [facility] 50738516560 40 MG Orally Once Active 1 tablet a day Results No Known Results Summary Purpose eClinicalWorks Submission
--- OUTSIDE RECORDS SUMMARY | 2018-10-02 16:44 | XMS REPORT ---
[...] Status Dosage System Date Date Breo Ellipta [facility] 99976312225 200-25 MCG/INH Active 1 puff Inhalation Once a day Carvedilol [facility] 47875895937 12.5 MG Orally Active as BID directed Aspir-81 [facility] 57631794190 81 MG Orally Active 1 tablet Once a day Prilosec [facility] 10051130498 20 MG Orally Active 1 capsule Once a day Lasix [facility] 80215955328 40 MG Orally Active 1 tablet Once a day Norvasc [facility] 03861832426 5 MG Orally Inactive 1 tablet Once a day ProAir HFA [facility] 25219912178 108 (90 Base) Active 2 puffs as MCG/ACT needed Inhalation every 6 hrs Primidone [facility] 63851052184 250 MG Orally Active 1 tablet Three times a day Zanaflex [facility] 82953776160 4 MG Orally Active 1 tablet Three times a as needed day Vitamin D3 [facility] 34785245231 400 UNIT Orally Active 2 tablets Once a day Lisinopril [facility] 68931754151 40 MG Orally Active 1 tablet Once a day Clonidine HCl [facility] 47078782383 0.1 MG Orally Active 1 tablet Twice a day at bedtime Topamax [facility] 56254194142 25 MG Orally Active 1 tablet Once a day Plavix [facility] 24640192496 75 MG Orally Active 1 tablet Once a day Amitriptyline [facility] 04414658565 50 MG Orally Active 1 tablet HCl Once a day Lipitor [facility] 67999029314 10 MG Orally Active 1 tablet Once a day Warfarin Sodium [facility] 89272888270 3 MG Orally Active 3 tablet Once a day Results No Known Results Summary Purpose eClinicalWorks Submission
--- OUTSIDE RECORDS SUMMARY | 2018-10-02 16:45 | XMS REPORT ---
[...] End Date Status Dosage System Date Carvedilol [facility] 63136816734 12.5 MG Orally Active as directed BID Results No Known Results Summary Purpose eClinicalWorks Submission
--- OUTSIDE RECORDS SUMMARY | 2018-10-02 16:45 | XMS REPORT ---
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 disc Problem Chronic back pain M54.9 Active Problem Depression with anxiety F41.8 Active Problem Cerebrovascular accident I63.9 Active Problem Aortic valve stenosis I35.0 Active Problem Anticoagulated Z79.01 Active Problem Memory loss R41.3 Active Problem Tremor R25.1 Active Problem Peripheral vascular disease I73.9 Active Problem Vitamin D deficiency E55.9 Active Problem Insomnia G47.00 Active Problem Occlusion and stenosis of carotid I65.29 Active artery Problem Chronic obstructive pulmonary J44.9 Active disease Problem Benign hypertrophy of prostate N40.0 Active Problem Benign essential HTN I10 Active Problem Hyperlipidemia, mixed E78.2 Active Problem 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 Problem 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 Problem Hemiplegia and hemiparesis I69.854 Active following other cerebrovascular disease affecting left non-dominant side Problem 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 Assessment Chronic obstructive pulmonary J44.9 Active disease Assessment Physical debility R53.81 Active Assessment Depression with anxiety F41.8 Active Assessment 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0 Active Assessment Thoracic aortic aneurysm without I71.2 Active rupture Problem Physical debility R53.81 Active Assessment Aortic aneurysm, abdominal I71.4 Active Problem Generalized weakness R53.1 Active Assessment Peripheral vascular disease I73.9 Active Problem Watery diarrhea R19.7 Active Assessment Hypercoagulable state D68.59 Active Problem Anemia in chronic illness D63.8 Active Assessment Generalized weakness R53.1 Active Problem Thoracic aortic aneurysm without I71.2 Active rupture Assessment Benign essential HTN I10 Active Assessment Non-healing wound of lower S81.801S Active extremity, right, sequela Assessment Anemia, unspecified type D64.9 Active Assessment 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 Medications Medication Code Code Instructions Start End Status Dosage System Date Date ProAir HFA [facility] 67611003873 108 (90 Base) Active 2 puffs as MCG/ACT needed Inhalation every 6 hrs Zanaflex [facility] 34405416041 4 MG Orally Active 1 tablet Three times a as needed day Amlodipine [facility] 73666462311 5 MG Orally Active 1 tablet Besylate Once a day Lisinopril [facility] 45142270289 40 MG Orally Active 1 tablet Once a day Prilosec [facility] 92535082311 20 MG Orally Active 1 capsule Once a day Amitriptyline [facility] 42542843317 75 MG Orally Active 1 tablet HCl Once a day Lipitor [facility] 16158993752 10 MG Orally Active 1 tablet Once a day Lisinopril [facility] 88514831276 40 MG Orally Active 1 tablet Once a day Primidone [facility] 76867967398 250 MG Orally Active 1 tablet Three times a day Aspir-81 [facility] 81800017839 81 MG Orally Active 1 tablet Once a day Carvedilol [facility] 50711871010 12.5 MG Orally Inactive as BID directed Warfarin Sodium [facility] 79691462684 3 MG Orally Active 3 tablet Once a day Vitamin D3 [facility] 31615610399 400 UNIT Orally Active 2 tablets Once a day Topamax [facility] 17421798789 25 MG Orally Active 1 tablet Once a day Breo Ellipta [facility] 31066525242 200-25 MCG/INH Active 1 puff Inhalation Once a day Clonidine HCl [facility] 46564356740 0.1 MG Orally Active 1 tablet Twice a day at bedtime Results No Known Results Summary Purpose eClinicalWorks Submission
--- OUTSIDE RECORDS SUMMARY | 2018-10-02 16:45 | XMS REPORT ---
[...] Start Date End Date Status Dosage Lisinopril [facility] 63594807659 40 MG Orally Once Active 1 tablet a day Results No Known Results Summary Purpose eClinicalWorks Submission
--- NOTE | 2018-10-02 17:57 | RAD REPORT ---
EXAM DESCRIPTION: CT - Head Brain Wo Cont - 10/02/2018 5:37 pm CLINICAL HISTORY: AMS Drowsiness, headache COMPARISON: Head Brain Wo Cont dated 07/13/2016; Head Brain Wo Cont dated 05/24/2016Head Brain Wo Con t dated 07/13/2016; Head Brain Wo Cont dated 05/24/2016; Head C Spine Mpr Wo Con dated 07/08/2018 TECHNIQUE: All CT scans are performed using dose optimization technique as appropriate and may inclu de automated exposure control or mA/KV adjustment according to patient size. FINDINGS: No intracranial hemorrhage, hydrocephalus or extra-axial fluid collection.Mild generalized brain atrophy.Gliosis is present in the right occipital lobe compatible with old infarct. Moderate polypoid mucosal thickening of both maxillary antra. Laura holes are present in the calvarium . No depressed calvarial fracture. IMPRESSION: No acute intracranial abnormality.
[2018-10-02 18:08] LABS: Absolute Lymphocytes (CBC) 1.3 K/uL (0.7-4.9); Absolute Monocytes 0.6 K/uL (0.1-1.3); Absolute Neutrophil 5.3 K/uL (1.8-8.0); Basophils % 0.6 % (0-1.3); Eosinophils % 3.3 % (0-4.4); Hematocrit 37.7 % (39.6-49.0); Lymphocytes % 16.9 % (15.3-44.8); MPV 8.4 fL (7.6-11.3); Monocytes % 8.6 % (3.3-12.3)
[2018-10-02 18:13] LABS: Protime INR 1.45
[2018-10-02 18:41] LABS: ALT/SGPT 12 U/L (12-78); AST/SGOT 10 U/L (15-37); Albumin 3.2 g/dL (3.4-5.0); Alkaline Phosphatase 220 U/L (45-117); BUN Blood Urea Nitrogen 7 mg/dL (7-18); Bicarbonate 29 mmol/L (21-32); Bilirubin Direct < 0.1 mg/dL (0-0.2); Bilirubin Total 0.3 mg/dL (0.2-1.0); Glucose Level 96 mg/dL (74-106); Potassium 3.9 mmol/L (3.5-5.1); Protein, Total 6.9 g/dL (6.4-8.2); Sodium Level 138 mmol/L (136-145)
--- NOTE | 2018-10-02 20:09 | ER ---
Nurse's Notes [facility] Name: Pineda Mckeon Age: 73 yrs Sex: Male : 1945 Arrival Date: 10/02/2018 Time: 16:40 Bed 14 Private MD: Diagnosis: Confusion;UDS positive for Meth Presentation: 10/02 16:35 Presenting complaint: EMS states: Pt. is AMS, A \T\ O x 1, normal baseline is A \T\ O x 4. rb 1 His neighbor found him outside walking around which is unusual. Vital signs were stable, BS 99. Pt. did not fall according to witnesses. Daughter reports that the pt. has taken too much of his muscle relaxer in past. NKDA. Has 20 G L AC. 16:35 Transition of care: patient was not received from another setting of care. Onset of rb1 symptoms was October 02, 2018. Risk Assessment: Do you want to hurt yourself or someone else? Patient reports no desire to harm self or others. Initial Sepsis Screen: Does the patient meet any 2 criteria? No. Patient's initial sepsis screen is negative. Does the patient have a suspected source of infection? No. Patient's initial sepsis screen is negative. Care prior to arrival: IV initiated. 20 GA, in the left antecubital area. 16:35 Acuity: NORY 3 rb1 16:35 Method Of Arrival: EMS: [facility] rb1 Triage Assessment: 16:35 General: Appears in no apparent distress. comfortable, Behavior is drowsy. Pain: Denies rb1 pain. Neuro: Level of Consciousness is confused, lethargic, Oriented to year. Cardiovascular: Capillary refill < 3 seconds is brisk in bilateral fingers. Respiratory: Airway is patent Respiratory effort is even, unlabored, Respiratory pattern is regular, symmetrical. GI: No signs and/or symptoms were reported involving the gastrointestinal system. : No signs and/or symptoms were reported regarding the genitourinary system. Derm: Skin is pink, warm \T\ dry. Wound noted right foot Other: Has home health for a wound on his right foot. Reported that the wound is almost healed and the pt. will be starting physical therapy per EMS. Musculoskeletal: Range of motion: intact in all extremities. Historical: - Allergies: 16:35 No Known Allergies; rb1 - Home Meds: 16:35 lisinopril 40 mg Oral tab 1 tab once daily [Active]; primidone 250 mg Oral tab 1 tab rb1 daily [Active]; topiramate 100 mg Oral tab 1 tab 2 times per day [Active]; fentanyl 100 mcg/hr Topical pt72 1 patch every 48 hours [Active]; hydrocodone-acetaminophen 10-325 mg Oral tab 1 tab every 6 hours [Active]; gabapentin 300 mg oral cap 1 cap daily [Active]; amlodipine 2.5 mg tab 1 tab once daily [Active]; warfarin 8 mg Oral tab 1 tab once daily [Active]; Vitamin B-12 1,000 mcg Oral tab 1,000 mcg daily [Active]; amitriptyline 100 mg oral tab [Active]; tizanidine 4 mg Oral tab 1 tab three times a day [Active]; Breo Ellipta 200-25 mcg/dose inhalation dsdv 1 puff once daily [Active]; albuterol sulfate 90 mcg/actuation Inhl HFAA 1 puff every 6 hours [Active]; - PMHx: 16:35 AAA; blood clot in right groin; Bypass Bilateral Legs; clotting disorder; COPD; CVA; rb1 Degenerative disc disease; Hypertension; Right Arm; TIA; - PSHx: 16:35 Right arm; Cholecystectomy; Hernia repair; rb1 - Immunization history:: Adult Immunizations up to date. - Ebola Screening: : Patient negative for fever greater than or equal to 101.5 degrees Fahrenheit, and additional compatible Ebola Virus Disease symptoms. - Social history:: Smoking status: Patient uses tobacco products, chewing tobacco. Screenin:35 Abuse screen: Denies threats or abuse. Nutritional screening: No deficits noted. rb1 Tuberculosis screening: No symptoms or risk factors identified. Fall Risk No fall in past 12 months (0 pts). Secondary diagnosis (15 points) AMS. IV access (20 points). Ambulatory Aid- Crutches/Cane/Walker (15 pts). Gait- Impaired (20 pts.). Mental Status- Overestimates/Forgets Limitations (15 pts.). Total Da Silva Fall Scale indicates High Risk Score (45 or more points). Fall prevention measures have been instituted. Side Rails Up X 2 Placed Close to Nursing Station 1:1 Attendant Assigned Frequent Obs/Assessments Occuring As available patient and family educated on Fall Prevention Program and Strategies. Assessment: 16:35 General: See triage assessment. rb1 17:00 Neuro: Level of Consciousness is lethargic, Oriented to person, place, time. rb1 17:31 Reassessment: Pt. went to CT. rb1 18:00 Reassessment: Patient appears in no apparent distress at this time. Patient and/or rb1 family updated on plan of care and expected duration. Pain level reassessed. Patient is alert, oriented x 3, equal unlabored respirations, skin warm/dry/pink. Daughter at bedside. Patient denies pain at this time. 19:00 Reassessment: Patient appears in no apparent distress at this time. Patient and/or jb4 family updated on plan of care and expected duration. Pain level reassessed. Patient is alert, oriented x 3, equal unlabored respirations, skin warm/dry/pink. daughter is at the bedside. 19:30 Reassessment: Lab is at the bedside. jb4 20:15 Reassessment: Pt's daughter has been notified of discharge status. Pt is resting in bed jb4 until daughter arrives. 20:30 Reassessment: Patient appears in no apparent distress at this time. Patient and/or jb4 family updated on plan of care and expected duration. Pain level reassessed. Patient is alert, oriented x 3, equal unlabored respirations, skin warm/dry/pink. Vital Signs: 16:35 BP 126 / 78; Pulse 75; Resp 19; Temp 98.5(O); Pulse Ox 95% on 2 lpm NC; Weight 73.03 kg rb1 (R); Height 5 ft. 7 in. (170.18 cm) (R); Pain 0/10; 17:29 BP 132 / 74; Pulse 75; Resp 18; Pulse Ox 96% on 2 lpm NC; rb1 18:15 BP 149 / 78; Pulse 78; Resp 16; Pulse Ox 100% on 2 lpm NC; Pain 0/10; rb1 19:30 BP 148 / 85; Pulse 72; Resp 15; Pulse Ox 96% on R/A; jb4 20:30 BP 148 / 83; Pulse 76; Resp 14; Pulse Ox 95% on R/A; jb4 16:35 Body Mass Index 25.22 (73.03 kg, 170.18 cm) [facility] ED Course: 16:35 Arm band placed on right wrist. rb1 16:35 Patient has correct armband on for positive identification. Bed in low position. Call rb1 light in reach. Side rails up X2. Pulse ox on. NIBP on. 16:35 Maintain EMS IV. Dressing intact. Good blood return noted. Site clean \T\ dry. Gauge \T\ rb 1 site: 20 G L AC. 16:40 Patient arrived in ED. rb1 16:45 Triage completed. rb1 16:54 Martha Mendoza FNP-C [facility]. snw 16:54 Lucio Dickson MD is Attending Physician. snw 17:22 Initial lab(s) drawn, by ca, sent to lab. Inserted saline lock: 22 gauge in right hand, dh3 using aseptic technique. Blood collected. 17:29 Alie Kay, RN is Primary Nurse. rb1 17:37 CT Head Brain wo Cont In Process Unspecified. EDMS 17:37 CT completed. Patient tolerated procedure well. Patient moved back from CT. kw1 18:27 EKG done, by ED staff, reviewed by Martha TELLEZ. 3 19:00 Report given to CHRYSTAL Callejas. rb1 20:35 No provider procedures requiring assistance completed. IV discontinued, intact, jb4 bleeding controlled. Administered Medications: No medications were administered Outcome: 20:08 Discharge ordered by . snw 20:47 Discharged to home via wheelchair, with family. jb4 20:47 Condition: stable 20:47 Discharge instructions given to patient, family, Instructed on discharge instructions, follow up and referral plans. Demonstrated understanding of instructions, follow-up care. 20:48 Patient left the ED. jb4 Signatures: Dispatcher [employer] EDFL Martha Mendoza FNP-C FNP-Csnw Barber, Rebecca, RN RN rb1 Aris Perez RN RN jb4 Sandy Rodríguez 3 Alysha Espinoza kw1
--- NOTE | 2018-10-02 20:09 | EDPHYS ---
Physician Documentation [facility] Name: Pineda Mckeon Age: 73 yrs Sex: Male : 1945 Arrival Date: 10/02/2018 Time: 16:40 Bed 14 Private MD: ED Physician Lucio Dickson HPI: 10/02 18:59 This 73 yrs old Male presents to ER via EMS with complaints of Altered Mental snw Status. 18:59 The patient presents with confusion. Onset: The symptoms/episode began/occurred snw gradually. Possible causes: Daughter states pt has had too many muscle relaxers in the past and had similar s/s. Associated signs and symptoms: The patient has no apparent associated signs or symptoms. Current symptoms: In the emergency department the patient's symptoms are unchanged from the initial presentation. Patient's baseline: Neuro: alert and fully oriented. The patient has experienced a previous episode. It is unknown whether or not the patient has recently seen a physician. Historical: - Allergies: 16:35 No Known Allergies; rb1 - Home Meds: 16:35 lisinopril 40 mg Oral tab 1 tab once daily [Active]; primidone 250 mg Oral tab 1 tab rb1 daily [Active]; topiramate 100 mg Oral tab 1 tab 2 times per day [Active]; fentanyl 100 mcg/hr Topical pt72 1 patch every 48 hours [Active]; hydrocodone-acetaminophen 10-325 mg Oral tab 1 tab every 6 hours [Active]; gabapentin 300 mg oral cap 1 cap daily [Active]; amlodipine 2.5 mg tab 1 tab once daily [Active]; warfarin 8 mg Oral tab 1 tab once daily [Active]; Vitamin B-12 1,000 mcg Oral tab 1,000 mcg daily [Active]; amitriptyline 100 mg oral tab [Active]; tizanidine 4 mg Oral tab 1 tab three times a day [Active]; Breo Ellipta 200-25 mcg/dose inhalation dsdv 1 puff once daily [Active]; albuterol sulfate 90 mcg/actuation Inhl HFAA 1 puff every 6 hours [Active]; - PMHx: 16:35 AAA; blood clot in right groin; Bypass Bilateral Legs; clotting disorder; COPD; CVA; rb1 Degenerative disc disease; Hypertension; Right Arm; TIA; - PSHx: 16:35 Right arm; Cholecystectomy; Hernia repair; rb1 - Immunization history:: Adult Immunizations up to date. - Ebola Screening: : Patient negative for fever greater than or equal to 101.5 degrees Fahrenheit, and additional compatible Ebola Virus Disease symptoms. - Social history:: Smoking status: Patient uses tobacco products, chewing tobacco. ROS: 18:58 Constitutional: Negative for fever, chills, and weight loss, Eyes: Negative for injury, snw pain, redness, and discharge, ENT: Negative for injury, pain, and discharge, Neck: Negative for injury, pain, and swelling, Cardiovascular: Negative for chest pain, palpitations, and edema, Respiratory: Negative for shortness of breath, cough, wheezing, and pleuritic chest pain, Abdomen/GI: Negative for abdominal pain, nausea, vomiting, diarrhea, and constipation, Back: Negative for injury and pain, : Negative for injury, bleeding, discharge, and swelling, MS/Extremity: Negative for injury and deformity, Skin: Negative for injury, rash, and discoloration. 18:58 Neuro: Positive for altered mental status, usually A\T\O x 3, today A\T\O x 1. Exam: 18:54 Head/Face: Normocephalic, atraumatic. Eyes: Pupils equal round and reactive to light, snw extra-ocular motions intact. Lids and lashes normal. Conjunctiva and sclera are non-icteric and not injected. Cornea within normal limits. Periorbital areas with no swelling, redness, or edema. ENT: Nares patent. No nasal discharge, no septal abnormalities noted. Tympanic membranes are normal and external auditory canals are clear. Oropharynx with no redness, swelling, or masses, exudates, or evidence of obstruction, uvula midline. Mucous membranes moist. Neck: Trachea midline, no thyromegaly or masses palpated, and no cervical lymphadenopathy. Supple, full range of motion without nuchal rigidity, or vertebral point tenderness. No Meningismus. Chest/axilla: Normal chest wall appearance and motion. Nontender with no deformity. No lesions are appreciated. Cardiovascular: Regular rate and rhythm with a normal S1 and S2. No gallops, murmurs, or rubs. Normal PMI, no JVD. No pulse deficits. Respiratory: Lungs have equal breath sounds bilaterally, clear to auscultation and percussion. No rales, rhonchi or wheezes noted. No increased work of breathing, no retractions or nasal flaring. Abdomen/GI: Soft, non-tender, with normal bowel sounds. No distension or tympany. No guarding or rebound. No evidence of tenderness throughout. Back: No spinal tenderness. No costovertebral tenderness. Full range of motion. Skin: Warm, dry with normal turgor. Normal color with no rashes, no lesions, and no evidence of cellulitis. 18:54 Constitutional: The patient appears awake, vacant stare 18:54 Musculoskeletal/extremity: Extremities: grossly normal except: healing pressure sore to left heel, Circulation is intact in all extremities. 18:54 Neuro: Orientation: to person, Not oriented to time. Vital Signs: 16:35 BP 126 / 78; Pulse 75; Resp 19; Temp 98.5(O); Pulse Ox 95% on 2 lpm NC; Weight 73.03 kg rb1 (R); Height 5 ft. 7 in. (170.18 cm) (R); Pain 0/10; 17:29 BP 132 / 74; Pulse 75; Resp 18; Pulse Ox 96% on 2 lpm NC; rb1 18:15 BP 149 / 78; Pulse 78; Resp 16; Pulse Ox 100% on 2 lpm NC; Pain 0/10; rb1 19:30 BP 148 / 85; Pulse 72; Resp 15; Pulse Ox 96% on R/A; jb4 20:30 BP 148 / 83; Pulse 76; Resp 14; Pulse Ox 95% on R/A; jb4 16:35 Body Mass Index 25.22 (73.03 kg, 170.18 cm) rb1 MDM: 16:54 Patient medically screened. snw 20:05 Data reviewed: vital signs, nurses notes. Data interpreted: Pulse oximetry: on room air snw is 96 %. Interpretation: normal. Counseling: I had a detailed discussion with the patient and/or guardian regarding: the historical points, exam findings, and any diagnostic results supporting the discharge/admit diagnosis, the presence of at least one elevated blood pressure reading (>120/80) during this emergency department visit, lab results, radiology results, the need for outpatient follow up. Response to treatment: the patient's symptoms have resolved after treatment, pt states he feels normal. A\T\O x 3, no complaints. Pt is able to tell me his PCP and pain management Doctors by name and states he has an appt with Dr. De La Cruz next month. 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 10/02 16:55 Order name: Acetaminophen; Complete Time: 18:47 10/02 16:55 Order name: BMP; Complete Time: 18:47 w 10/02 16:55 Order name: CBC with Diff; Complete Time: 18:25 w 10/02 16:55 Order name: Ethanol; Complete Time: 18:25 w 10/02 16:55 Order name: Hepatic Function; Complete Time: 18:47 10/02 16:55 Order name: Protime (+inr); Complete Time: 18:25 w 10/02 16:55 Order name: Ptt, Activated; Complete Time: 18:25 w 10/02 16:55 Order name: Salicylate; Complete Time: 18:25 w 10/02 16:55 Order name: Urine Drug Screen; Complete Time: 20:27 10/02 16:55 Order name: EKG - Nurse/Tech; Complete Time: 18:27 w 10/02 16:55 Order name: CT Head Brain wo Cont; Complete Time: 18:06 10/02 17:17 Order name: Blood Culture Adult (2) 10/02 19:59 Order name: Urine Dipstick--Ancillary (enter results); Complete Time: 20:45 ar5 10/02 16:55 Order name: IV Saline Lock; Complete Time: 17:31 10/02 16:55 Order name: Labs collected and sent; Complete Time: 17:31 10/02 16:55 Order name: O2 Per Protocol; Complete Time: 17:31 10/02 16:55 Order name: O2 Sat Monitoring; Complete Time: 17:31 10/02 16:55 Order name: Urine Dipstick-Ancillary (obtain specimen); Complete Time: 19:59 snw Administered Medications: No medications were administered Disposition: 10/02/18 20:08 Discharged to Home. Impression: Confusion, UDS positive for Meth. - Condition is Stable. - Discharge Instructions: Confusion. - Medication Reconciliation Form, Thank You Letter, Antibiotic Education, Prescription Opioid Use form. - Follow up: Private Physician; When: 1 - 2 days; Reason: Recheck today's complaints, Continuance of care, Re-evaluation by your physician. Follow up: Emergency Department; When: As needed; Reason: Worsening of condition. Addendum: 10/04/2018 07:49 Co-signature as Attending Physician, Lucio Dickson MD I agree with the assessment and c cobos plan of care. Signatures: Dispatcher [employer] EDWA Lucio Dickson MD MD cha Therrien, Shelly, SHIPPING SUPPORT CLERK-C SHIPPING SUPPORT CLERK-Csnw Alie Kay, RN RN Aris Abreu RN RN jb4 Corrections: (The following items were deleted from the chart) 10/02 20:29 20:08 10/02/2018 20:08 Discharged to Home. Impression: Confusion. Condition is Stable. snw Forms are Medication Reconciliation Form, Thank You Letter, Antibiotic Education, Prescription Opioid Use. Follow up: Private Physician; When: 1 - 2 days; Reason: Recheck today's complaints, Continuance of care, Re-evaluation by your physician. Follow up: Emergency Department; When: As needed; Reason: Worsening of condition. snw 20:48 20:29 10/02/2018 20:08 Discharged to Home. Impression: Confusion; UDS positive for jb4 Meth. Condition is Stable. Discharge Instructions: Confusion. Forms are Medication Reconciliation Form, Thank You Letter, Antibiotic Education, Prescription Opioid Use. Follow up: Private Physician; When: 1 - 2 days; Reason: Recheck today's complaints, Continuance of care, Re-evaluation by your physician. Follow up: Emergency Department; When: As needed; Reason: Worsening of condition. snw
[2018-10-02 20:25] LABS: Barbiturates POSITIVE (NEGATIVE); Benzodiazepines POSITIVE (NEGATIVE); Cocaine NEGATIVE (NEGATIVE); METHAMPHETAM NEGATIVE (NEGATIVE); Methadone POSITIVE (NEGATIVE); Opiates NEGATIVE (NEGATIVE); Phencyclidine NEGATIVE (NEGATIVE); THC Cannibis NEGATIVE (NEGATIVE)
[2018-10-02 20:43] LABS: Urine Blood NEGATIVE (NEG); Urine Glucose NEGATIVE (NEG); Urine Protein NEGATIVE (NEG)
[2018-10-02 20:52] VITALS: TEMP 98.5
[2018-10-02 20:58] VITALS: BP 148/83; O2SAT 95
== END 2018-10-02 20:48 | disposition home or self-care (01) ==
LOC: ER 16:30
DX: R41.82 Altered mental status, unspecified (principal); F15.90 Other stimulant use, unspecified, uncomplicated; I10 Essential (primary) hypertension; J44.9 Chronic obstructive pulmonary disease, unspecified; F17.220 Nicotine dependence, chewing tobacco, uncomplicated
CPT/HCPCS: 36415; 70450; 80048; 80076; 80307; 80320; 80329; 81003; 85025; 85610; 85730; 87040; 99284

== ENCOUNTER 2019-01-23 21:58 | Observation (INO) | payer OTHER ==
--- OUTSIDE RECORDS SUMMARY | 2019-01-23 22:03 | XMS REPORT | Clinical Summary ---
:1945 Author Organization [facility] Address [address] [place] [address] Care Team Providers Name Role Phone Home [...] 8 19 mouth 2 (two) times daily. cloNIDine HCl Take 0.1 mg by 0 02/05/20 Discontinued (CATAPRES) 0.1 MG mouth daily as 18 tablet needed. doxycycline Mix contents of 3 01/28/20 Discontinued (MONODOX) 100 MG 3 capsules into 8 18 capsule foot bath daily furosemide (LASIX) TAKE ONE (1) 99 01/28/20 Discontinued 40 MG tablet TABLET(S) BY 8 18 MOUTH ONCE A DAY. mupirocin Mix contents of 3 03/29/20 Discontinued (BACTROBAN) 2 % one tube [...] 03/23/2018 Critical lower limb ischemia 02/02/2018 03/23/2018 GI bleed 03/23/2018 Encounters Date Type Specialty Care Team Description 03/23/2018 Surgery Aris Parker DEBRIDEMENT/I&D,STEPHEN Nash MD EXTREMITY LOWER 03/23/2018 Anesthesia Event Alfie Napier MD 03/22/2018 - Hospital Encounter Cardiology Yesenia Nelson Cellulitis of right lower extremity; 03/29/2018 MD Maritza S/P TAVR (transcatheter aortic valve replacement); Christian Hdz Abscess of right groin; MD Rik ZHANE (acute kidney injury) (HCC) Isaac Sanders, MD Enio Smith Shireen, MD 02/02/2018 Anesthesia Event Devon Li MD 02/02/2018 Surgery 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 Rik 02/02/2018 - Hospital [...] Encounter Cardiology Christian Hdz 01/28/2018 MD Rik after 01/22/2018 Social History Tobacco Use Types Packs/Day Years [...] 03/26/2018 8:20 AM CDT Plan of Treatment Not on file Implants Implanted Type Area Sales And Marketing Assistant Device Shelf Model / Identifier Expiration Serial / Date Lot Amplatzer Vascular Plug Ii Cardiovascular [facility] 12/07/2021 9-[id number] -[id number] / Implanted: Qty: 1 on 12/04/2017 by Christian Hdz MD / [id number] Azur 18 Detachable Helical Hydrocoil Coil 08/15/2020 [id number] / Implanted: Qty: 1 on 12/04/2017 by Christian Hdz MD / [id number] Azur 35 Detachable Helical Hydrocoil Coil 05/09/2022 [id number] / Implanted: Qty: 1 on 12/04/2017 by Christian Hdz MD / [id number] Azur 35 Detachable Helical Hydrocoil Coil 05/09/2022 [id number] / Implanted: Qty: 1 on 12/04/2017 by Christian Hdz MD / [id number] Azur 35 Detachable Helical Hydrocoil Coil 05/09/2022 [id number] / Implanted: Qty: 1 on 12/04/2017 by Christian Hdz MD / [id number] Azur Cx 35 Detachable Cx Coil Coil 07/09/2021 [id number] / Implanted: Qty: 1 on 12/04/2017 by Christian Hdz MD / [id number] Azur Cx 35 Detachable Cx Coil Coil 02/06/2021 [id number] / Implanted: Qty: 1 on 12/04/2017 by Christian Hdz MD / [id number] Azur Cx 35 Detachable Cx Coil Coil 08/09/2021 [id number] / Implanted: Qty: 1 on 12/04/2017 by Christian Hdz MD / [id number] Azur 35 Detachable Helical Hydrocoil Coil 10/02/2020 [id number] / Implanted: Qty: 1 on 12/04/2017 by Christian Hdz MD / [id number] Azur Cx 35 Detachable Cx Coil Coil 08/09/2021 [id number] / Implanted: Qty: 1 on 12/04/2017 by Christian Hdz MD / [id number] Azur 18 Detachable Helical Hydrocoil Coil 06/09/2018 [id number] / Implanted: Qty: 1 on 12/04/2017 by Christian Hdz MD / [id number] Azur 18 Detachable Helical Hydrocoil Coil 05/23/2020 [id number] / Implanted: Qty: 1 on 12/04/2017 by Christian Hdz MD / [id number] Azur Cx 18 Detachable Cx Coil Coil 06/09/2021 [id number] / Implanted: Qty: 1 on 12/04/2017 by Christian Hdz MD / [id number] Azur Cx 18 Detachable Cx Coil Coil 05/09/2021 [id number] / Implanted: Qty: 1 on 12/04/2017 by Christian Hzd MD / [id number] Azur 35 Detachable Framing Coil Coil 10/07/2022 [id number] / Implanted: Qty: 1 on 12/04/2017 by Christian Hdz MD / [id number] Azur 35 Detachable Framing Coil Coil 10/07/2022 [id number] / Implanted: Qty: 1 on 12/04/2017 by Christian Hdz MD / [id number] Azur 35 Detachable Framing Coil Coil 10/07/2022 [id number] / Implanted: Qty: 1 on 12/04/2017 by Christian Hdz MD / [id number] Azur 35 Detachable Framing Coil Coil 10/07/2022 [id number] / Implanted: Qty: 1 on 12/04/2017 by Christian Hdz MD / [id number] [facility] Vas Knit Gld [id number] - [id number] Graft/Patch N/A: GETINGE 12/07/2021 [id number] / Implanted: Qty: 1 on 02/02/2018 by Christian Hdz MD Arterial IND: MAQUET:CV [id number] / [employer] Stents-Peripher BARD VASCULAR [id number] 05/30/2018 [id number] / Implanted: Qty: 1 on 02/02/2018 by Christian Hdz MD al / [id number] [employer] Stents-Peripher BARD VASCULAR [id number] 10/07/2020 [id number] / Implanted: Qty: 1 on 02/02/2018 by Christian Hdz MD al / [id number] [employer] Stents-Peripher BARD VASCULAR [id number] 07/31/2020 [id number] / Implanted: Qty: 1 on 02/02/2018 by Christian Hdz MD al / [id number] [employer] Stents-Peripher BARD VASCULAR [id number] 04/09/2020 [id number] / Implanted: Qty: 1 on 02/02/2018 by Christian Hdz MD al / [id number] Higgins Denilson 3 Thv Valves N/A: HIGGINS 08/20/2019 [id number] / Implanted: Qty: 1 on 12/09/2017 by Christian Hdz MD Heart [employer] Search [id number] / Procedures Procedure Name Priority Date/Time Associated Comments Diagnosis RHYTHM STRIP - SCAN 12/09/2018 2:32 PM CDT TRANSFUSE STAT 09/16/2018 5:31 LEUKO-REDUCED RED PM COMMUNITY REINVESTMENT ACT OFFICER BLOOD CELLS RHYTHM STRIP - SCAN 05/27/2018 [...] are in the results section. LACTIC ACID, VENOUS Routine 03/27/2018 5:22 Results for this AM [...] are in the results section. LACTIC ACID, ARTERIAL STAT 02/02/2018 10:51 Results for this PM [...] CDT procedure are in the results section. 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 Narrative Performed At Transfuse Leuko-Red RBC (09/16/2018 5:31 PM COMMUNITY REINVESTMENT ACT OFFICER)VASCULAR DIAGRAM -SCAN (2017 11:00 AM CDT)Only the most recent of7 resultswithin the time period is included. Narrative Performed At EKG-SCANNED (03/31/2018 11:10 AM CDT)Only the most recent of3 resultswithin the time period is included. Narrative Performed At Daily Prothrombin time/INR while on warfarin (03/29/2018 4:16 AM CDT)Only the most recent of10 resultswithin the time period is included. Protime 25.0 (H) 11.7 - 14.7 seconds [facility] INR 2.3 <=5.9 [facility] Specimen Blood Narrative Performed At [facility] RECOMMENDED COUMADIN/WARFARIN INR THERAPY RANGES STANDARD DOSE: 2.0 - 3.0 Includes: PROPHYLAXIS for venous thrombosis, systemic embolization; TREATMENT for venous thrombosis and/or pulmonary embolus. HIGH RISK: Target INR is 2.5-3.5 for patients with mechanical heart valves. While on warfarin. Performing Organization Address City/[facility] Phone Number [address] [address] [phone] CENTER Vancomycin level, random (03/29/2018 4:16 AM CDT)Only the most recent of2 resultswithin the time period is included. Vancomycin Rm 16.9 ug/mL [facility] Specimen Blood Narrative Performed At [facility] Reference Range: No Normals Performing Organization Address City/[facility]/Zipcode Phone Number [address] [address] CENTER Basic Metabolic Panel (03/29/2018 4:16 AM CDT)Only the most recent of11 resultswithin the time period is included. Sodium 137 136 - 145 meq/L [facility] Potassium 3.5 3.5 - 5.1 meq/L [facility] Chloride 106 98 - 107 meq/L [facility] CO2 22 22 - 29 meq/L [facility] BUN 18 7 - 21 mg/dL [facility] Creatinine 0.92 0.57 - 1.25 mg/dL [facility] Glucose 95 70 - 105 mg/dL [facility] Calcium 8.7 8.4 - 10.2 mg/dL [facility] EGFR 80Comment: ESTIMATED GFR IS mL/min/1.73 sq m [facility] NOT ACCURATE CREATININE [facility] CENTER CLEARANCE IN PREDICTING GLOMERULAR FILTRATION RATE. ESTIMATED GFR IS NOT APPLICABLE FOR DIALYSIS PATIENTS. Specimen Blood Performing Organization Address [facility] Phone Number [address] [address] [place] Vancomycin level, trough (03/27/2018 5:46 PM CDT)Only the most recent of3 resultswithin the time period is included. Vancomycin Tr 25.2 (H) 10.0 - 20.0 ug/mL [facility] Specimen Blood Performing Organization Address [facility] Phone Number [address] [address] [place] Lactic acid, venous, whole blood (03/27/2018 5:22 AM CDT) Lactate, Venous 0.6 0.5 - 2.2 mmol/L [facility] Specimen Blood Narrative Performed At [facility] Effective 12/12/2015: Units/Reference Range Change New: 0.5-2.2 mmol/LPrevious: 5-20 mg/dL Performing Organization Address [facility] Cent[facility]ode Phone Number [address] [address] CENTER CBC with platelet count + automated diff (03/25/2018 5:28 AM CDT)Only the most recent of6 resultswithin the time period is included. WBC 3.8 3.5 - 10.5 K/L [facility] RBC 3.43 (L) 4.63 - 6.08 M/L [facility] Hemoglobin 9.2 (L) 13.7 - 17.5 GM/DL [facility] Hematocrit 29.6 (L) 40.1 - 51.0 % [facility] MCV 86.3 79.0 - 92.2 fL [facility] MCH 26.8 25.7 - 32.2 pg [facility] MCHC 31.1 (L) 32.3 - 36.5 GM/DL [facility] RDW 15.8 (H) 11.6 - 14.4 % [facility] Platelets 163 150 - 450 K/CU MM [facility] MPV 9.9 9.4 - 12.4 fL [facility] nRBC 0 0 - 0 /100 WBC [facility] % Neutros 57 % [facility] % Lymphs 24 % [facility] % Monos 12 % [facility] % Eos 6 % [facility] % Baso 1 % [facility] # Neutros 2.18 1.78 - 5.38 K/L [facility] # Lymphs 0.93 (L) 1.32 - 3.57 K/L [facility] # Monos 0.44 0.30 - 0.82 K/L [facility] # Eos 0.23 0.04 - 0.54 K/L [facility] # Baso 0.03 0.01 - 0.08 K/L [facility] Immature Granulocytes-Relative 0 0 - 1 % [facility] Specimen Blood Performing Organization Address City/[facility]/Zipcode Phone Number [facility] [address] [place] [address] [phone] [place] Tissue Exam (03/23/2018 11:36 AM CDT)Only the most recent of2 resultswithin the time period is included. Case Report Surgical Pathology Report Case: [id number] [facility] Authorizing Provider:Aris Parker MD Collected: 03/23/2018 1136 [facility] Ordering Location: [facility] Received: 03/23/2018 1158 PERIOPERATIVE SERVICES Pathologist: Lanie Jaquez MD Specimen:Groin, Right, Right Groin Tissue DIAGNOSIS SOFT TISSUE, RIGHT GROIN, DEBRIDEMENT: [facility] - FIBROADIPOSE TISSUE WITH FAT NECROSIS, ACUTE AND CHRONIC INFLAMMATION, [facility] AND FOREIGN BODY GIANT CELL REACTION Signing Pathologist Direct Phone Line: [phone] CPT Code(s) 40687 [facility] CLINICAL HISTORY infection [facility] SPECIMEN SOURCE Right groin tissue [facility] GROSS DESCRIPTION The specimen is received in [facility] a formalin-filled container [facility] and labeled with the patient's information and labeled "right groin tissue" and consists of a segment of rodríguez-chapman hemorrhagic soft tissue measuring 3 x 1.6 x 0.5 cm. Out And Out Cigar Maker Hand sections are submitted A1.CG/pl MICROSCOPIC DESCRIPTION Performed. [facility] Specimen Tissue - Groin, Right Performing Organization Address City/State/Zipcode Phone Number [facility] [address] [place] [address] [phone] [place] AFB culture + smear (03/23/2018 11:31 AM CDT)Only the most recent of2 resultswithin the time period is included. Result No acid-fast bacilli isolated in [facility] 42 days CENTER AFB Smear No acid fast bacilli seen [facility] Specimen Body Fluid - Groin, Right Performing Organization Address [facility] Cent[facility]ode Phone Number [facility] [address] [place] [phone] [place] Anaerobic culture (03/23/2018 11:31 AM CDT)Only the most recent of2 resultswithin the time period is included. Result No anaerobes isolated [facility] Specimen Body Fluid - Groin, Right Performing Organization Address [facility] Phone Number [facility] [address] [place] [phone] [place] Surgically obtained culture + gram stain (03/23/2018 11:31 AM CDT)Only the most recent of2 resultswithin the time period is included. Result METHICILLIN RESISTANT [facility] STAPHYLOCOCCUS AUREUS (A) MEDICAL CENTER Result 1+ Enterococcus species (A) [facility] Gram Stain Result <1+ WBCs [facility] Gram Stain Result No organisms seen [facility] Specimen Body Fluid - Groin, Right Organism [...] species Vancomycin 1: Susceptible Performing Organization Address City/[facility] Cent[facility] Phone Number [address] [address] [place] Fungus culture + smear (03/23/2018 11:31 AM CDT)Only the most recent of2 resultswithin the time period is included. Result No fungus isolated in 28 days [facility] Fungus Smear No fungi seen [facility] Specimen Body Fluid - Groin, Right Performing Organization Address [facility] Phone Number [address] [address] [phone] [place] SPIN/CONCENTRATION CHARGE (03/23/2018 11:31 AM CDT) Concentration charged Done [facility] Specimen Body Fluid - Groin, Right Performing Organization Address [facility] Phone Number [facility] [address] [place] [address] [place] TRANSFUSION SERVICE REPORT - SCAN (02/07/2018 6:00 PM CDT)Only the most recent of3 resultswithin the time period is included. Narrative Performed At Prepare RBC (02/05/2018 3:24 PM CDT)Only the most recent of2 resultswithin the time period is included. Unit ABO O Neg [place] UNIT NUMBER [id number] [place] Status WORK IN PROGRESS [place] Blood Bank Product RED BLOOD CELLS [place] PRODUCT CODE [id number] [place] Unit ABO O Neg [place]AF[place]ACE [place] UNIT NUMBER [id number] [place] Status WORK IN PROGRESS [facility] [place] Blood Bank Product RED BLOOD CELLS [place] PRODUCT CODE [id number] [place] CROSSMATCH COMPATIBLE [place] CROSSMATCH COMPATIBLE [place] Performing Organization Address [facility] Phone Number [place] CBC (Hemogram only) (02/05/2018 5:13 AM CDT)Only the most recent of3 resultswithin the time period is included. WBC 6.5 3.5 - 10.5 K/L [facility] RBC 3.24 (L) 4.63 - 6.08 M/L [facility] Hemoglobin 8.5 (L) 13.7 - 17.5 GM/DL [facility] Hematocrit 27.4 (L) 40.1 - 51.0 % [facility] MCV 84.6 79.0 - 92.2 fL [facility] MCH 26.2 25.7 - 32.2 pg [facility] MCHC 31.0 (L) 32.3 - 36.5 GM/DL [facility] RDW 18.4 (H) 11.6 - 14.4 % [facility] Platelets 127 (L) 150 - 450 K/CU MM [facility] MPV 9.8 9.4 - 12.4 fL [facility] nRBC 0 0 - 0 /100 WBC [facility] Specimen Blood Performing Organization Address City/[facility] Cent[facility] Phone Number [address] [address] CENTER Phosphorus (02/05/2018 5:13 AM CDT)Only the most recent of4 resultswithin the time period is included. Phosphorus 2.2 (L) 2.3 - 4.7 mg/dL [facility] Specimen Blood Performing Organization Address City/[facility] Cent[facility]ode Phone Number [address] [address] CENTER Magnesium (02/05/2018 5:13 AM CDT)Only the most recent of4 resultswithin the time period is included. Magnesium 2.1 1.6 - 2.6 mg/dL [facility] Specimen Blood Performing Organization Address City/[facility] Phone Number [address] [address] CENTER Hemoglobin and hematocrit (02/04/2018 11:49 AM CDT)Only the most recent of2 resultswithin the time period is included. Hemoglobin 8.4 (L) 13.7 - 17.5 GM/DL [facility] Hematocrit 28.9 (L) 40.1 - 51.0 % [facility] Specimen Blood Performing Organization Address City/[facility]/Zipcode Phone Number [facility] [address] [place] [address] CENTER CARDIAC CATH REPORT - SCAN (02/03/2018 12:40 PM CDT) Narrative Performed At Comprehensive metabolic panel (02/03/2018 5:10 AM CDT) Protein, Total 5.7 (L) 6.0 - 8.3 gm/dL [facility] Albumin 3.3 (L) 3.5 - 5.0 g/dL [facility] Alkaline Phosphatase 133 40 - 150 U/L [facility] Total Bilirubin 0.8 0.2 - 1.2 mg/dL [facility] Sodium 134 (L) 136 - 145 meq/L [facility] Potassium 4.1 3.5 - 5.1 meq/L [facility] Chloride 106 98 - 107 meq/L [facility] CO2 19 (L) 22 - 29 meq/L [facility] BUN 6 (L) 7 - 21 mg/dL [facility] Creatinine 0.88 0.57 - 1.25 mg/dL [facility] Glucose 163 (H) 70 - 105 mg/dL [facility] Calcium 8.3 (L) 8.4 - 10.2 mg/dL [facility] AST 12 5 - 34 U/L [facility] ALT <6 (L) 6 - 55 U/L [facility] EGFR 85Comment: ESTIMATED GFR mL/min/1.73 sq m [facility] IS NOT ACCURATE [facility] CREATININE CLEARANCE IN PREDICTING GLOMERULAR FILTRATION RATE. ESTIMATED GFR IS NOT APPLICABLE FOR DIALYSIS PATIENTS. Specimen Blood Performing Organization Address City/[facility]/Zipcode Phone Number [facility] [address] [place] [address] CENTER XR chest 1 view portable / bedside (02/02/2018 11:00 PM CDT) Specimen Narrative Performed At FINAL REPORT [facility] Chest, one view HISTORY: Postop COMPARISON: CTA [...] MD Report Verified Date/Time:02/02/2018 23:12:37 Reading Location: [address] Consult Reading Room Procedure Note Interface, [...] Report Verified Date/Time: 02/02/2018 23:12:37 Reading Location: [facility] Consult Reading Room Performing Organization Address City/State/Zipcode Phone Number [facility] Oxygen saturation, measured (02/02/2018 10:51 PM CDT) O2 Saturation (Measured) 72.2 % [facility] Specimen Blood Performing Organization Address City/State/Zipcode Phone Number [facility] [address] [place] [address] CENTER Calcium, Ionized (02/02/2018 10:51 PM CDT)Only the most recent of4 resultswithin the time period is included. Calcium, Ion 1.02 (L) 1.12 - 1.27 mmol/L [facility] pH, Blood 7.38 [facility] Specimen Blood Performing Organization Address City/[facility] Phone Number [address] [address] [place] Lactic acid, arterial, whole blood (02/02/2018 10:51 PM CDT) Lactate, Art 1.7 0.5 - 2.2 mmol/L [facility] Specimen Blood, Arterial Narrative Performed At [facility] Effective 12/12/2015: Units/Reference Range Change New: 0.5-2.2 mmol/LPrevious: 5-20 mg/dL Performing Organization Address [facility] Phone Number [address] [address] [phone] [place] aPTT (02/02/2018 10:51 PM CDT)Only the most recent of2 resultswithin the time period is included. PTT 29.8 22.5 - 36.0 seconds [facility] Specimen Blood Performing Organization Address City/[facility] Cent[facility] Phone Number [address] [address] [phone] CENTER Fibrinogen (02/02/2018 10:51 PM CDT)Only the most recent of2 resultswithin the time period is included. Fibrinogen 276 225 - 434 mg/dl [facility] Specimen Blood Performing Organization Address [facility] Cent[facility] Phone Number [address] [address] [place] Hepatic function panel (02/02/2018 10:51 PM CDT) Protein, Total 5.8 (L) 6.0 - 8.3 gm/dL [facility] Albumin 3.5 3.5 - 5.0 g/dL [facility] Total Bilirubin 1.5 (H) 0.2 - 1.2 mg/dL [facility] Bilirubin, Direct 0.8 (H) 0.1 - 0.5 mg/dL [facility] Alkaline Phosphatase 142 40 - 150 U/L [facility] AST 12 5 - 34 U/L [facility] ALT 7 6 - 55 U/L [facility] Specimen Blood Performing Organization Address [facility] Phone Number [address] [address] CENTER Hemoglobin-Stat Lab (02/02/2018 6:42 PM CDT) Hemoglobin 9.9 (L) 13.0 - 16.8 g/dL [facility] Specimen Blood, Arterial Performing Organization Address [facility] Phone Number [address] [address] C[place] Potassium-Stat Lab (02/02/2018 6:42 PM CDT)Only the most recent of2 resultswithin the time period is included. Potassium 4.2 3.6 - 5.5 meq/L [facility] Specimen Blood, Arterial Performing Organization Address [facility] Phone Number [address] [address] CENTER Sodium Na-Stat Lab (02/02/2018 6:42 PM CDT)Only the most recent of2 resultswithin the time period is included. Sodium 133 (L) 135 - 148 meq/L [facility] Specimen Blood, Arterial Performing Organization Address [facility] Phone Number [address] [address] [phone] CENTER Glucose-Stat Lab (02/02/2018 6:42 PM CDT)Only the most recent of2 resultswithin the time period is included. Glucose 134 (H) 70 - 110 mg/dL [facility] Specimen Blood, Arterial Performing Organization Address City/[facility]/Zipcode Phone Number [address] [address] [phone] [place] HEMATOCRIT-STAT LAB (02/02/2018 6:42 PM CDT) Hematocrit 29.0 (L) 40.0 - 50.0 % [facility] Specimen Blood, Arterial Performing Organization Address City/[facility]/Zipcode Phone Number [address] [address] [place] HGB/HCT (H&H)-Stat Lab (02/02/2018 6:42 PM CDT)Only the most recent of2 resultswithin the time period is included. Hemoglobin 9.9 (L) 13.0 - 16.8 GM/DL [facility] Hematocrit 29.0 (L) 40.0 - 50.0 % [facility] Specimen Blood, Arterial Performing Organization Address [facility] Phone Number [address] [address] [place] Blood gas, arterial (02/02/2018 6:42 PM CDT)Only the most recent of2 resultswithin the time period is included. pH, Arterial 7.37 7.35 - 7.45 [facility] pCO2, Arterial 39 35 - 45 mmHg [facility] pO2, Arterial 229 (H) 80 - 90 mmHg [facility] O2 Sat, Arterial 99.5 (H) 96.0 - 97.0 % [facility] HCO3, Arterial 22 21 - 29 mmol/L [facility] Base Excess, Arterial -3.4 (L) -2.0 - 3.0 mmol/L [facility] Patient Temperature 37.0 C [facility] Specimen Blood, Arterial Performing Organization Address [facility] Phone Number [address] [address] CENTER Platelet count (02/02/2018 6:42 PM CDT) Platelets 149 (L) 150 - 450 K/CU MM [facility] Specimen Blood Performing Organization Address [facility] Phone Number [address] [address] C[place] POC ACTIVATED CLOTTING TIME (02/02/2018 5:35 PM CDT)Only the most recent of4 resultswithin the time period is included. Activated Clotting Time 279Comment: TESTED AT sec [address] [address] Specimen Blood Performing Organization Address [facility] Phone Number [address] [address] [place] Antibody identification (02/02/2018 1:43 PM CDT) ANTIBODY ID (KIMBER) Anti-E [place] Antibody Consult SIGNED OUTComment: Anti E causes RBC [place] injury, transfuse E negative RBCs.Electronic Signature: James Hou M.D. Specimen Performing Organization Address [facility] Phone Number [place] Type and screen, automated (02/02/2018 9:21 AM CDT) ABO/RH AUTOMATED (BEAKER) O POSITIVE [facility] Ab Scrn POSITIVEComment: echo 2 [facility] Specimen Blood Performing Organization Address [facility] Phone Number [address] [address] [phone] MRA extremity lower without & with IV contrast (01/28/2018 5:13 PM CDT) Specimen Narrative Performed At FINAL REPORT GE RIS MRA of the lower extremities, 28 January 2018 INDICATION:This is a 72 years old male a diagnosis of peripheral vascular disease presents for assessment. This study is performed in an attempt to avoid invasive procedure, and potentially nephrotoxic contrast agent. TECHNIQUE: BOB ACHIEVA MRI scanner. Limited axial images were obtained for planning purposes.Thereafter, during a slow bolus infusion of gadolinium, a Mobitrak technique was performed.3-D reconstruction was performed by an independent workstation (Verold). Please refer to the contrast sheet scanned [...] CT scan. The proximal abdominal aorta is pechanga. The celiac axis, SMA are patent with [...] coil embolisation procedure as per EPIC. The pechanga left external iliac artery and the left [...] centimeters of the left SFA could be pechanga. However, there is likely a left femoral [...] posterior tibial artery. In the right, the pechanga right SFA is seen to be occluded. [...] distance, though thereafter, it is occluded. 4.The pechanga left SFA is likely occluded and a left femoral to distal popliteal bypass graft is identified that is patent with no proximal or distal anastomotic stenosis. Essentially three-vessel runoff is seen in the left lower extremity. 5.In the right, the pechanga right SFA is occluded. It appears patient [...] MD Report Verified Date/Time:01/28/2018 17:43:09 Reading Location: [place] [address] Cardiology MRI Procedure Note Interface, External Ris In - 01/28/2018 5:45 PM CDT FINAL REPORT MRA of the lower extremities, 28 January 2018 INDICATION: This is a 72 years old male a diagnosis of peripheral vascular disease presents for assessment. This study is performed in an attempt to avoid invasive procedure, and potentially nephrotoxic contrast agent. TECHNIQUE: BOB ACHIEVA MRI scanner. Limited axial images were obtained for planning purposes. Thereafter, during a slow bolus infusion of gadolinium, a Mobitrak technique was performed. 3-D reconstruction was performed by an independent workstation (Verold). Please refer to the contrast sheet scanned [...] CT scan. The proximal abdominal aorta is pechanga. The celiac axis, SMA are patent with [...] coil embolisation procedure as per EPIC. The pechanga left external iliac artery and the left [...] centimeters of the left SFA could be pechanga. However, there is likely a left femoral [...] posterior tibial artery. In the right, the pechanga right SFA is seen to be occluded. [...] though thereafter, it is occluded. 4. The pechanga left SFA is likely occluded and a left femoral to distal popliteal bypass graft is identified that is patent with no proximal or distal anastomotic stenosis. Essentially three-vessel runoff is seen in the left lower extremity. 5. In the right, the pechanga right SFA is occluded. It appears patient [...] Report Verified Date/Time: 01/28/2018 17:43:09 Reading Location: [place] [address] Cardiology MRI Performing Organization Address City/State/Zipcode Phone Number [employer] CARDIAC CATH REPORT - SCAN (01/28/2018 3:40 PM CDT) Narrative Performed At Vein mapping arm/arms (01/28/2018 1:00 PM CDT) Ejection Fraction [facility] CPACS Specimen Impressions Performed At Right Impression [facility] CPACS 1. There is [...] + + + + + ![facility]ilic at [facility] UA ! !0.37 ! ! !0.43 ! [...] PV LAB - Upper Extremities Vein Mapping [facility] Demographics Patient Name Luis Felipe MCKEON of Study 01/28/2018 DOROTEO [id number] Age 72 Visit Number [id number] GenderMale Accession Number [id number] Date of 1945 [facility] Room Number C632 PhysicianMaria Isabel. Ryan Umanzor. Alessandro Morelos MD, RVT Physician RPVI Procedure Type of Study: Veins: Upper Extremity Vein Mapping, VEIN MAPPING ARM/ARMS. Indications for Study:Pre-op for vein harvesting. Patient Status:Routine. Study Location:Vascular Lab. Technical Quality:Adequate visualization. - Results were reported to:CHRYSTAL Robledo @ [id number]. Risk Factors History of Disease + +----+ + !Diagnosis !Date!Comments ! + +----+ + !History/Risk Factors: !!PAD, COPD, HTN, HLD, CAD, AAA ! + +----+ + Procedure Note Interface, External Ris In - 01/28/2018 2:18 PM CDT PV LAB - Upper Extremities Vein Mapping Demographics Patient Name WALTER MCKEON Date of Study 01/28/2018 DOROTEO Age 72 Visit Number [id number] Gender Male Accession Number [id number] Date of 1945 Referring Andreina Gonzales Room Number C632 Physician EYulissa Fur Buyer Trupti Samaniego Interpreting Oral Morelos MD, RVT Physician RPVI Procedure Type of Study: Veins: Upper Extremity Vein Mapping, VEIN MAPPING ARM/ARMS. Indications for Study:Pre-op for vein harvesting. Patient Status:Routine. Study Location:Vascular Lab. Technical Quality:Adequate visualization. - Results were reported to:CHRYSTAL Robledo @ [id number]. Risk Factors History of Disease + +----+ [...] + + +--- + Performing Organization Address City/State/Zipcode Phone Number [facility] CP[facility] after 01/22/2018 Insurance Payer Benefit Plan / Group Subscriber ID Type Phone Address MEDICARE MEDICARE A B xxxxxxxxxx Medicare Advance Directives For more information, please contact:[address] [phone] Code Status Date Activated Date Inactivated Comments [...]
--- OUTSIDE RECORDS SUMMARY | 2019-01-23 22:07 | XMS REPORT | Continuity of Care Document ---
[...] 0[facility] [place] SARAH BILLING Active [address] SDH Active [address] Elevated troponin Active Finding 10/25/[address] [facility] [facility] [place] Colitis Active Finding 10/25/[address] [facility] [facility] [place] Lower Active Finding 10/25/[address] [facility] [address] 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 [...] St. mutation [facility] NONTRAUMATIC Active [facility] SUBDURAL [facility] HEMORRHAGE, [facility] Center Medications Medication Details Route Status Patient Ordering Order Source Instructions Provider Date Warfarin Sodium DAILY Active [facility] 2018 [facility] [place] Fentanyl SEE COMMENT Active [facility] 2018 [facility] [place] Warfarin Sodium DAILY Active [facility] 2018 [facility] [place] Trizonidone SEE COMMENT PRN Active [facility] For Anxiety 2018 [facility] [place] Pantoprazole TWICE DAILY Active Prezas [facility] 2018 [facility] [place] Hydrocodone Q6H Active Prezas [facility]. 10/Apap 325 2018 [facility] [place] Lisinopril DAILY Active Preza [facility] 2018 [facility] [place] Lisinopril DAILY Active [facility] 2018 [facility] [place] Fluticasone/Juanis DAILY Active [place] [facility] nterol 2018 [facility] [place] Primidone DAILY Active [facility] 2018 [facility] [place] Topiramate DAILY Active [facility] 2018 [facility] [place] Aspirin DAILY Active [facility] 2018 [facility] [place] Atorvastatin AT BEDTIME Active [facility] Calcium 2018 [facility] [place] Fluticasone/Juanis DAILY Active [facility] nterol 2018 [facility] [place] Lisinopril DAILY Active [facility] 2016 [facility] [place] Potassium TWICE DAILY Active [facility] Chloride 2016 [facility] [place] Cyanocobalamin DAILY Active [facility] St. (Vitamin B-12) 2016 [facility] [place] Omeprazole NEEDED PRN Active [facility] For Gastric 2016 [facility] [place] [place] Indigestion Warfarin Sodium 5 mg=1 tab, PO, Active [place] 5 MG Oral Tablet Daily, INR goal 2016 Medical [Coumadin] 2-3, # 30 tab, Center 0 Refill(s) tamsulosin 0.4 0.8 mg=2 cap, Active [place] mg oral capsule PO, Daily, 0 2016 Medical Refill(s) Center Levetiracetam 1,500 mg=3 tab, Active [place] 500 MG Oral PO, [id number], # 2016 Medical Tablet 90 tab, 0 Center Refill(s) Docusate Sodium 100 mg=1 cap, Active [place] 100 MG Oral PO, Q12H, # 20 2016 Medical Capsule cap, 0 Center Refill(s) phenol 1 spray, Route: No Longer [place] TOP, TID, Drug Active 2015 Medical form: SPRY, PRN Center Sore Throat, Start date: 05/29/16 22:35:00 CDT, Duration: 30 day, Stop date: 06/28/16 22:34:00 CSTNotes: Chloraseptic [place] (Same as: Chloraseptic, Sore Throat [place]) WASTE: F/P - Black; E - Municipal Trash Bin Coumadin 5 mg, 1 tab, Inactive [place] Route: PO, Drug 2015 Medical form: TAB, Center ONCE, Dosing Weight 76.36, kg, Start date: 05/29/16 21:30:00 CDT, Stop date: 05/29/16 21:30:00 CDT Warfarin 5 mg, 1 tab, Inactive [facility] Route: PO, Drug 2015 Medical form: TAB, Center Q5PM, Dosing Weight 76.36, kg, Start date: 05/29/16 17:00:00 CDT, Duration: 1 doses or times, Stop date: 05/29/16 17:00:00 CDT Labetalol 200 mg, 1 tab, No Longer [facility] Route: PO, Drug Active 2015 Medical form: TAB, Q8H, Center Dosing Weight 76.36, kg, Start date: 05/29/16 9:44:00 CDT, Duration: 30 day, Stop date: 06/28/16 8:00:00 CSTNotes: With food. (Same as:Trandate, Normodyne) Keppra 1,500 mg, 3 No Longer [facility] tab, Route: PO, Active 2016 Medical Drug form: TAB, Center [id number], Start date: 05/29/16 6:00:00 CDT, Duration: 30 day, Stop date: 06/27/16 18:00:00 CSTNotes: (Same as:Keppra) Coumadin 5 mg, 1 tab, Inactive [facility] Route: PO, Drug 2015 Medical form: TAB, [...] Duration: 30 day, Stop date: 06/26/16 9:00:00 [employer] Remeron 7.5 mg, 1 tab, No Longer [place] Route: PO, Drug Active 2015 Medical form: TAB, Center Bedtime, Dosing Weight 76.36, kg, Start date: 05/27/16 21:00:00 CDT, Duration: 30 day, Stop date: 06/25/16 21:00:00 CSTNotes: (Same as:Remeron) ibuprofen 100 600 mg, 30 mL, No Longer [place] mg/5 mL oral Route: PO, Drug Active [...] patch" Ibuprofen 600 mg, 30 mL, Inactive [place] Route: PO, Drug 2015 Medical form: SUSP, [...] Duration: 30 day, Stop date: 06/25/16 9:00:00 [employer] Lisinopril 40 mg, Route: Inactive [place] PO, Drug form: 2016 Medical TAB, Daily, Center Dosing Weight 76.36, kg, Start date: 05/27/16 9:00:00 CDT, Duration: 30 day, Stop date: 06/25/16 9:00:00 [employer] Miralax 17 gm, 1 pkt, No Longer [place] Route: PO, Drug Active 2015 Medical form: [...] ___ mg Keppra 1,500 mg, No Longer [place] Route: IVPB, Active 2015 Medical Q12H, Dosing Center Weight 76.36, kg, Start date: 05/27/16 4:00:00 CDT, Duration: 30 day, Stop date: 06/25/16 16:00:00 CSTNotes: Same as Keppra Mix with 100 mL NS, LR or D5W MEDICATION WASTE Product Size: 500 mg Product Wasted: ___ mg Hydralazine 20 mg, 1 mL, No Longer [place] Route: IV, Drug Active 2015 Medical form: [...] Active 2016 Medical Ipratropium SOLN, Dosing Center Tiona 0.167 Weight 76.36, MG/ML Inhalant kg, Q4H, [...] Center Bitartrate 10 MG Refill(s) Oral Tablet [Crane 10325] lisinopril 40 mg 40 mg=1 tab, Active [place] oral tablet PO, Daily, 0 2016 Medical Refill(s) Center 12 HR Clonidine 0.1 mg=1 tab, Active [place] Hydrochloride PO, Bedtime, # 2016 Medical 0.1 MG Extended 30 tab, 0 Center Release Tablet Refill(s) 72 HR Fentanyl 1 patch, TOP, Active [place] 0.1 MG/HR Q48H, # 15 2016 Medical Transdermal patch, 0 Center Patch Refill(s) [Duragesic] Warfarin Sodium 4 mg=1 tab, PO, No Longer [place] 4 MG Oral Tablet Daily, # 30 Active 2016 Medical [Coumadin] tab, 0 Center Refill(s) Breo Ellipta 100 1 puff, Active [place] mcg-25 mcg INHALATION, 2016 Medical inhalation Daily, 0 Center powder Refill(s) Vitamin B12 100 100 microgram=1 Active [place] mcg oral tablet tab, PO, Daily, 2016 Medical # 30 tab, 0 Center Refill(s) primidone 50 mg 50 mg=1 tab, Active [place] oral tablet PO, BID, # 60 2016 Medical tab, 0 Center Refill(s) tizanidine 4 MG 8 mg=2 tab, PO, Active [place] Oral Tablet Q8H, # 180 tab, 2016 Medical [Zanaflex] 0 Refill(s) Center Aspirin 81 MG 81 mg=1 tab, No Longer [place] Enteric Coated PO, Daily, # 90 Active 2016 Medical Tablet tab, 3 Center Refill(s) Vitamin D3 400 400 IntlUnit=1 Active [place] intl units oral cap, PO, Daily, 2016 Medical capsule 0 Refill(s) Center 200 ACTUAT 2 puff, Active [place] Albuterol 0.09 INHALER, Q6H, 2016 Medical MG/ACTUAT PRN for Center Metered Dose wheezing, # 8.5 Inhaler [ProAir gm, 0 Refill(s) HFA] Keppra 1,000 mg, Inactive [place] Route: IV, 2016 Medical ONCE, Dosing Center [...] 2016 Medical INJ 100 mL Start date: [place] 05/26/16 1:57:00 CDT, Stop date: 05/26/16 1:57:00 CDTNotes: Same as Keppra Mix with 100 mL NS, LR or D5W MEDICATION WASTE Product Size: 500 mg Product Wasted: __0_ mg Keppra 500 mg, Route: Inactive [place] IVPB, Q24H, 2015 Medical Dosing Weight Center 76.36, kg, Priority: STAT, Start date: 05/26/16 1:28:00 CDT, Duration: 30 day, Stop date: 06/24/16 1:28:00 [employer] sodium chloride 1,000 mL, Rate: No Longer [place] 0.9% 1000 ml INJ 50 ml/hr, Active 2015 Medical 1,000 mL Infuse over: 20 Center hr, Route: IV, Dosing Weight 76.36 kg, Total Volume: 1,000, Start date: 05/25/16 21:30:00 CDT, Duration: 30 day, Stop date: 06/24/16 21:29:00 [employer] Acetaminophen 1 tab, Route: No Longer [place] 325 MG / PO, Drug Form: Active 2015 Medical Hydrocodone TAB, Dosing Center Bitartrate 5 MG Weight 76.36, Oral Tablet kg, Q4H, PRN [Crane 5/325] Pain Score 6-10, Start date: 05/25/16 20:00:00 CDT, Stop date: 06/24/16 16:00:00 CSTNotes: (Same as: Crane 325/5) Do not exceed 4gm/day of acetaminophen. [...] ___ mg Hydromorphone 0.5 mg, 0.25 Inactive [place] mL, Route: IVP2015 Medical Drug form: INJ, Center Q5Min, Dosing Weight 76.36, kg, PRN Pain Score 7-10, Start date: 05/25/16 15:57:00 CDT, Duration: 4 doses or times, Stop date: 05/26/16 0:00:00 CDTNotes: (Same as: Dilaudid) Naloxone 0.4 mg, 1 mL, Inactive [facility] Route: IV2015 Medical Drug form: INJ, Center Q2MIN, Dosing Weight 76.36, kg, PRN Narcotic Reversal, Start date: 05/25/16 15:57:00 CDT, Duration: 8 doses or times, Stop date: 05/26/16 0:00:00 CDTNotes: Same as Narcan Flumazenil 0.2 mg, 2 mL, Inactive [facility] Route: IV2015 Medical Drug form: INJ, Center PRN, Dosing Weight 76.36, kg, PRN Benzodiazepine Reversal, Initial dose, Start date: 05/25/16 15:57:00 CDT, Stop date: 05/26/16 0:00:00 CDTNotes: (Same as: Romazicon) Labetalol 10 mg, 2 mL, Inactive [facility] Route: IV2015 Medical Drug form: INJ, Center Q5Min, Dosing Weight 76.36, kg, PRN Elevated BP, Start date: 05/25/16 15:57:00 CDT, Duration: 5 doses or times, Stop date: 05/26/16 0:00:00 CDT Metoprolol 1 mg, 1 mL, Inactive [facility] Route: IV2015 Medical Drug form: INJ, Center Q5Min, Dosing Weight 76.36, kg, PRN Other -See Comment, Start date: 05/25/16 15:57:00 CDT, Duration: 5 doses or times, Stop date: 05/26/16 0:00:00 CDTNotes: (Same as: Lopressor) Push over 2 minutes Sodium Chloride 1,000 mL, Rate: Inactive [place] 0.154 MEQ/ML 125 ml/hr, 2015 Medical Injectable Infuse over: 8 Center Solution hr, Route: IV, Dosing Weight 76.36 kg, Total Volume: 1,000, Start date: 05/25/16 15:57:00 CDT, Duration: 30 day, Stop date: 06/24/16 15:56:00 [employer] Ancef 2 gm, Route: Inactive [place] IVPB, ONCE, 2016 Medical Dosing Weight Center 76.36, kg, Start date: 05/25/16 14:15:00 CDT, Duration: 1 doses or times, Stop date: 05/25/16 14:15:00 CDT Streptococcus 0.5 mL, Route: Inactive [place] pneumoniae IM, Drug Form: 2015 Medical serotype 1 INJ, Daily, Center capsular antigen Start date: diphtheria 05/25/16 [id number] protein 9:00:00 CDT, conjugate Duration: 1 vaccine / doses or times, Streptococcus Stop date: pneumoniae 05/25/16 serotype 14 9:00:00 capsular antigen CDTNotes: diphtheria Lightly roll [id number] protein vial (DO NOT conjugate SHAKE) before vaccine / administration. Streptococcus (Same as: pneumoniae Prevnar 13) serotype 18C capsular antigen d Vitamin K1 + 10 mg, 1 mL, No Longer [place] sodium chloride Route: IVPB, Active 2015 Medical 0.9% INJ 50 mL Daily, Dosing Center Weight 76.36, kg, Start date: 05/25/16 9:00:00 CDT, Duration: 3 doses or times, Stop date: 05/27/16 9:00:00 CDTNotes: (Same as: Aqua-[place]phy[place], Vitamin K) MEDICATION WASTE Product Size: 10 mg Product Wasted: ___ mg Saline Flush 10 ml, Route: No Longer [place] 0.9% IVP, Drug Form: Active 2015 Medical INJ, Dosing Center Weight 76.364, kg, Q12H, Start date: 05/25/16 9:00:00 CDT, Duration: 30 day, Stop date: 06/23/16 21:00:00 CSTNotes: (Same as: BD Posiflush) Levetiracetam 1,500 mg, 3 No Longer [place] tab, Route: PO, Active 2015 Medical Drug form: TAB, Center Q12H, Dosing Weight 76.364, kg, Start date: 05/25/16 9:00:00 CDT, Stop date: 06/23/16 21:00:00 CSTNotes: (Same as:Kathryn) Docusate 100 mg, 1 cap, No Longer [place] Route: PO, Drug Active 2015 Medical form: CAP, Center Q12H, Dosing Weight 76.364, kg, Start date: 05/25/16 9:00:00 CDT, Duration: 30 day, Stop date: 06/23/16 21:00:00 CSTNotes: (Same as: Colace) (Do Not Crush) sennosides, LONGTERM 8.6 mg, 1 tab, No Longer [place] Route: PO, Drug Active 2015 Medical Form: TAB, Center Dosing Weight 76.364, kg, Q12H, Start date: 05/25/16 9:00:00 CDT, Duration: 30 day, Stop date: 06/23/16 21:00:00 CSTNotes: (Same as: [place]) Flomax 0.8 mg, 2 cap, No Longer [place] Route: PO, Drug Active 2015 Medical form: CAP, Center Daily, Dosing Weight 76.36, kg, Priority: NOW, Start date: 05/25/16 6:11:00 CDT, Duration: 30 day, Stop date: 06/23/16 9:00:00 CSTNotes: (Same As: Flomax) "Do Not Crush" Dexamethasone 6 mg, 1.5 mL, Inactive [place] Route: IV, Drug 2015 Medical form: INJ, Center ONCE, Dosing Weight 76.36, kg, Priority: NOW, Start date: 05/25/16 5:39:00 CDT, Stop date: 05/25/16 5:39:00 CDTNotes: Concentration: 4mg/ml Mannitol 100 gm, 500 mL, Inactive [place] Route: IVPB, 2015 Medical Drug form: INJ, Center ONCE, Dosing Weight 76.36, kg, Priority: NOW, Start date: 05/25/16 5:16:00 CDT, Stop date: 05/25/16 5:16:00 CDTNotes: (Same as: Osmitrol) Infuse through 5 micron or smaller filter WASTE: F/P - Sink; E - Municipal Trash Bin Vitamin K1 + 10 mg, 1 mL, Inactive [place] sodium chloride Route: IVPB2015 Medical 0.9% INJ [...] CSTNotes: (Same as: Mag-Ox 400) Magnesium oxide [id number] elemental magnesium Dose=____mg magnesium oxide (___mg elemental magnesium) Magnesium 2 gm, 50 mL, No Longer [place] Sulfate Route: IVPB, Active 2015 Medical Drug form: INJ, Center PRN, Dosing Weight 76.364, kg, PRN Abnormal Lab Result, Start date: 05/24/16 23:11:00 CDT, Duration: 30 day, Stop date: 06/23/16 22:10:00 [employer], FOR ICU USE ONLYNotes: WASTE: F/P - [...] CSTNotes: (Same As: Tums) Calcium Carbonate 500 wv=472 mg elemental calcium Dose= mg calcium carbonate ( mg elemental calcium) Calcium 1 gm, 10 mL, No Longer [place] Gluconate Route: IVPB, Active 2015 Medical PRN, Dosing Center Weight 76.364, kg, PRN Abnormal Lab Result, Start date: 05/24/16 23:11:00 CDT, Duration: 30 day, Stop date: 06/23/16 22:10:00 [employer], FOR ICU USE ONLYNotes: WASTE: F/P - [...] potassium 30 mmol, 10 mL, No Longer [place] phosphate + Route: IVPB, Active 2015 Medical sodium chloride PRN, Dosing Center 0.9% INJ 250 mL Weight 76.364, kg, PRN Abnormal Lab Result, Start date: 05/24/16 23:11:00 CDT, Duration: 30 day, Stop date: 06/23/16 22:10:00 [employer], FOR ICU USE ONLYNotes: (Same as: K Phosphate.) 1 mMol phoshate has 1.47 mEq potassium Infuse over 4 hours sodium phosphate 45 mmol, 15 mL, No Longer [place] + sodium Route: IVPB, Active 2015 Medical chloride 0.9% PRN, Dosing Center INJ 250 mL Weight 76.364, kg, PRN Abnormal Lab Result, Start date: 05/24/16 23:11:00 CDT, Duration: 30 day, Stop date: 06/23/16 22:10:00 [employer], FOR ICU USE ONLY potassium 10 mEq, 50 mL, No Longer [place] chloride Route: IVPB, Active 2015 Medical Drug form: INJ, Center PRN, Dosing Weight 76.364, kg, PRN Abnormal Lab Result, Via peripheral line, Start date: 05/24/16 23:11:00 CDT, Duration: 30 day, Stop date: 06/23/16 22:10:00 [employer], FOR ICU USE ONLYNotes: (Same as: KCL) Infuse over 2 hours. iodixanol 60 mL, Route: Inactive [place] IVP, Drug Form: 2015 Medical SOLN, Dosing Center Weight 76.364, kg, ONCALL, STAT, Start date: 05/24/16 22:50:00 CDT, Duration: 1 doses or times, Dose=2.2ml/kg, Max aptz=418ps -- "To be infused by Radiology Staff [...] units) WASTE: F/P - Black; E - Humanoid Trash Bin Stable for 28 days at room temperature Expires in days from D ate Dextrose 50% 6.25 gm, 12.5 No Longer [place] Syringe mL, Route: IVP, Active 2015 Medical Drug Form: INJ, Center Dosing Weight 76.364, kg, PRN, PRN Abnormal Lab Result, Start date: 05/24/16 22:17:00 CDT, Duration: 30 day, Stop date: 06/23/16 21:16:00 [employer] Saline Flush 10 ml, Route: No Longer [place] 0.9% IVP, Drug Form: Active 2015 Medical INJ, Dosing Center Weight 76.364, kg, PRN, PRN Line Flush, Start date: 05/24/16 22:17:00 CDT, Duration: 30 day, Stop date: 06/23/16 21:16:00 CSTNotes: (Same as: BD Posiflush) Bisacodyl 10 mg, 1 supp, No Longer [place] Route: MI, Drug Active 2015 Medical form: SUPP, Center Daily, Dosing Weight 76.364, kg, PRN Constipation, Start date: 05/24/16 22:17:00 CDT, Duration: 30 day, Stop date: 06/23/16 22:16:00 CSTNotes: (Same As: Dulcolax, Bisco-Lax) Ondansetron 4 mg, 2 mL, No Longer [place] Route: IVP, Active 2015 Medical Drug form: [...] not exceed 4gm/day of acetaminophen. (Same as: Crane 325/10) Levetiracetam 1,000 mg, No Longer [place] Route: IVPB, Active 2015 Medical Drug form: [...] Duration: 30 day, Stop date: 06/23/16 22:16:00 [employer] Acetaminophen 1 tab, Route: No Longer [place] 325 MG / PO, Drug Form: Active 2015 Medical Hydrocodone TAB, Dosing Center Bitartrate 5 MG Weight 76.364, Oral Tablet kg, Q4H, PRN Pain Score 1-3, Start date: 05/24/16 22:17:00 CDT, Duration: 30 day, Stop date: 06/23/16 22:16:00 CSTNotes: (Same as: Crane 325/5) Do not exceed 4gm/day of acetaminophen. Saline Flush 10 mL, Route: No Longer [place] 0.9% IVP, Drug Form: Active 2015 Medical INJ, Dosing Center Weight 76.364, kg, PRN, PRN Line Flush, Start date: 05/24/16 20:56:00 CDT, Duration: 30 day, Stop date: 06/23/16 19:55:00 CSTNotes: (Same as: BD Posiflush) Levofloxacin DAILY Inactive Sarahy [facility] [place] Amitriptyline AT BEDTIME Active [facility] 2015 [facility] [place] Fentanyl Q48H Active [facility] 2016 [facility] [place] Hydrocodone Q6H Active [facility] St. 10/Apap 325 2015 [facility] [place] Warfarin Sodium DAILY Active [facility] 2015 [facility] [place] Tizanidine TWICE DAILY Active [facility] 2015 [facility] [place] Allergies, Adverse Reactions, Alerts Substance Category Reaction Severity Reaction Status Date Comments Source type Reported Immunizations Immunization Date Site Status Last Updated Comments Source Given Influenza Adult completed [facility] Vaccine 8 - [place] pneumococcal Right completed [facility] [address] Results Order Name Results Value Reference Date Interpretation Comments Source Range Laboratory Hemoglobin 9.6 g/dL 13.6 - 10/24 [facility] [address] Studies 17.9 /2017 [facility] [place] Laboratory Hematocrit 30.4 % 39.6 - 10/24 [facility] [address] Studies 49.0 /2017 [facility] [place] Laboratory Prothrombin 21.3 9.5 - 12.5 10/24 [facility] [address] Studies Time SECONDS /2017 [facility] [place] Laboratory INR 1.79 10/24 [facility] [address] Studies Internationa /2017 [facility] l Normalized [place] Ratio Laboratory Activated 28.9 24.3 - 10/24 [facility]. Studies Partial SECONDS 36.9 /2017 [facility] Thromboplast [place] Time Laboratory White Blood 11.0 K/uL 4.3 - 10.9 10/24 [facility] [address] Studies Count /2017 [facility] [place] Laboratory Red Cell 19.1 % 12.1 - 10/24 [facility]. Studies Distribution 15.2 /2017 [facility] Width [place] Laboratory Red Blood 2.99 M/uL 4.33 - 10/24 [facility]. Studies Count 5.43 /2017 [facility] [place] Laboratory Platelet 347 K/uL 152 - 406 10/24 [facility]. Studies Count /2017 [facility] [place] Laboratory Neutrophils 69.0 % 41.7 - 10/24 [facility] [address] Studies % 73.7 /2017 [facility] [place] Laboratory Monocytes % 9.3 % 3.3 - 12.3 10/24 [facility] Studies /2017 [facility] [place] Laboratory Mean 8.1 fL 7.6 - 11.3 10/24 [facility] Studies Platelet /2017 [facility] Volume [place] Laboratory Mean 75.0 fL 80 - 100 10/24 [facility]. Studies Corpuscular /2017 [facility] Volume [place] Laboratory Mean 31.3 g/dL 32.0 - 10/24 [facility] Studies Corpuscular 36.0 /2017 [facility] Hemoglobin [place] Concent Laboratory Mean 23.5 pg 27.0 - 10/24 [facility]. Studies Corpuscular 35.0 [facility] Hemoglobin [place] Laboratory Lymphocytes 13.5 % 15.3 - 10/24 [facility] Studies % 44.8 /2017 [facility] [place] Laboratory Eosinophils 7.4 % 0 - 4.4 10/24 [facility] Studies % /2017 [facility] [place] Laboratory Basophils % 0.8 % 0 - 1.3 10/24 [facility] Studies /2017 [facility] [place] Laboratory Absolute 7.6 K/uL 1.8 - 8.0 10/24 [facility] [address] Studies Neutrophil /2017 [facility] [place] Laboratory Absolute 1.0 K/uL 0.1 - 1.3 10/24 [facility] Studies Monocytes /2017 [facility] - (CBC) [place] Laboratory Absolute 1.5 K/uL 0.7 - 4.9 10/24 [facility]. Studies Lymphocytes /2017 [facility] (CBC) [place] Laboratory Absolute 0.8 K/uL 0 - 0.5 10/24 [facility] Studies Eosinophils [facility] - (CBC) [place] Laboratory Absolute 0.1 K/uL 0 - 0.5 10/24 [facility] [address] Studies Basophils [facility] - (CBC) [place] Laboratory Transferrin 2.1 % 20.0 - 10/23 [facility] [address] Studies % Saturation 50.0 [facility] [place] Laboratory Transferrin 334 mg/dL 180 - 329 10/23 [facility] [address] Studies /2017 [facility] [place] Laboratory Total Iron 468 ug/dL 250 - 460 10/23 [facility] [address] Studies Binding /2017 [facility] Capacity [place] Laboratory Iron Level 10.0 ug/dL 45 - 182 10/23 [facility] [address] Studies /2017 [facility] [place] Laboratory Ferritin 21.5 ng/ml 23.9 - 10/23 [facility] [address] Studies 336.2 [facility] [place] Laboratory Percent 3.59 % 0.4 - 2.05 10/23 [facility] [address] Studies Reticulocyte [facility] Count [place] Laboratory Absolute 0.10 M/uL 0.02 - 10/23 [facility] [address] Studies Reticulocyte 0.11 [facility] Count [place] Laboratory Urine pH 7.0 10/23 [facility] [address] Studies /2017 [facility] [place] Laboratory Urine Total Urine 10/23 [facility]. Studies Protein Total /2017 [facility] Protein [place] Laboratory Urine 1.010 10/23 [facility] [address] Studies Specific /2017 [facility] [place] Laboratory Urine Urine 10/23 [facility]. Studies Nitrite Nitrite /2017 [facility] [place] Laboratory Urine Urine 10/23 [facility] [address] Studies Leukocyte Leukocyte /2017 [facility] Esterase Esterase [place] Laboratory Urine Urine 10/23 [facility] [address] Studies Ketones Ketones /2017 [facility] [place] Laboratory Urine Urine 10/23 [facility]. Studies Glucose Glucose /2017 [facility] [place] Laboratory Urine Blood Urine 10/23 [facility] [address] Studies Blood /2018 [facility] [place] Laboratory Glucose 114 mg/dL 65 - 120 10/23 [facility] [address] Studies Level /2017 [facility] [place] Laboratory Estimat 64 mL/min 90 10/23 [facility] [address] Studies Glomerular /2017 [facility] Filtration [place] Rate Laboratory Creatinine 1.12 mg/dL 0.61 - 10/23 [facility] [address] Studies 1.24 [facility] [place] Laboratory Calcium 8.6 mg/dL 8.5 - 10.5 10/23 [facility] [address] Studies Level /2017 [facility] [place] Laboratory Blood Urea 19 mg/dL 6 - 20 10/23 [facility] [address] Studies Nitrogen /2017 [facility] [place] Laboratory Sodium Level 129 mEq/L 135 - 145 10/23 [facility] [address] Studies /2018 [facility] [place] Laboratory Potassium 4.3 mEq/L 3.6 - 5.0 10/23 [facility] [address] Studies Level /2017 [facility] [place] Laboratory Chloride 95 mEq/L 101 - 111 10/23 [facility] [address] Studies Level /2018 [facility] [place] Laboratory Carbon 25 mEq/L 21 - 31 10/23 [facility] [address] Studies Dioxide /2017 [facility] Level [place] Laboratory Vitamin B12 1453 pg/ml 180 - 914 09/17 [facility] [facility] Studies Level /2018 [facility] Magnesium 2.0 mg/dL 1.8 - 2.5 09/17 [facility] [address] Studies Level /2018 [facility] Free 0.74 ng/dl 0.58 - 02 [facility] [address] Studies Thyroxine 1.64 [facility] Triglyceride 133 mg/dL 35 - 160 09/14 [facility] [address] Studies s Level /2017 [facility] Total 0.4 mg/dL 0.3 - 1.2 09/14 [facility]. Studies Bilirubin /2017 [employer] [facility] Thyroid 9.18 0.34 - 02 [facility] [address] Studies Stimulating uIU/mL 5.60 /2017 [facility] [place] (TSH) [facility] Serum Total 5.7 g/dL 6.0 - 8.3 09/14 [facility] [address] Studies Protein /2017 [facility] LDL [address] [facility]. Studies Cholesterol, /2017 [facility] HDL 34 mg/dL 27 - 67 09/14 [facility] [address] Studies Cholesterol /2017 [facility] Globulin 2.5 g/dL 2.3 - 3.5 09/14 [facility] [address] Studies /2017 [facility] Cholesterol/ 4.26 09/14 [facility]. Studies HDL Ratio /2017 [facility] Cholesterol 145 mg/dL 09/14 [facility]. Studies Level /2017 [facility] Aspartate 13 IU/L 10 - 42 09/14 [facility]. Studies Amino Transf /2017 [employer] - (AST/SGOT) [facility] Alkaline 91 IU/L 42 - 121 09/14 [facility]. Studies Phosphatase /2017 [facility] Albumin/Glob 1.3 1.1 - 1.8 09/14 [facility]. Studies ulin Ratio /2017 [facility] Albumin 3.2 g/dL 3.2 - 5.5 09/14 [facility] [address] Studies /2017 [facility] Alanine 9 IU/L 10 - 60 09/14 [facility]. Studies Aminotransfe /2017 [employer] - rase [place] (ALT/SGPT) Laboratory Phosphorus 3.5 mg/dL 2.5 - 4.3 08/29 [facility] [address] Studies Level /2017 [facility] Procalcitoni null 08/28 [facility] [address] Studies n [facility] Direct 0.1 mg/dL 0 - 0.2 08/28 [facility]. Studies Bilirubin /2017 [facility] Lipase 19 U/L 22 - 51 08/28 [facility]. Studies /2017 [facility] HEMATOLOGY INR 1.08 0.85 - 05/30 [facility] 1. [facility] HEMATOLOGY PT 14.2 s 12.0 - 05/30 [place] 14.7 /2016 [facility] HEMATOLOGY INR 1.09 0.85 - 05/28 [facility] 1. [facility] HEMATOLOGY PTT 27.7 s 22.9 - 05/28 [place] 35.8 /2016 [facility] HEMATOLOGY PT 14.3 s 12.0 - 05/28 [place] 14.7 /2016 [facility] HEMATOLOGY Platelet 287 K/CMM 133 - 450 05/28 [facility] HEMATOLOGY MPV 8.4 fL 7.4 - 10.4 05/28 [facility] HEMATOLOGY MCHC 33.3 g/dL 32.0 - 05/28 [place] 36.0 /2016 [facility] HEMATOLOGY Hgb 11.6 g/dL 14.0 - 05/28 [place] 18.0 /2016 [facility] HEMATOLOGY MCH 29.6 pg 27.0 - 05/28 [place] 31.0 /2016 [facility] HEMATOLOGY RDW 15.0 % 11.5 - 05/28 [place] 14.5 [facility] HEMATOLOGY MCV 88.9 fL 80.0 - 05/28 [place] 94.0 /2015 [facility] HEMATOLOGY Hct 35.0 % 42.0 - 05/28 [place] 54.0 /2016 [facility] HEMATOLOGY RBC 3.94 M/CMM 4.70 - 05/28 [place] 6.10 [facility] HEMATOLOGY WBC 11.4 K/CMM 3.7 - 10.4 05/28 [facility] HEMATOLOGY Monocytes # 1.3 K/CMM 0.0 - 0.8 05/28 [facility] HEMATOLOGY Segs-Bands # 8.9 K/CMM 1.5 - 8.1 05/28 [facility] HEMATOLOGY Lymphocytes 1.2 K/CMM 1.0 - 5.5 05/28 # /2015 [facility] HEMATOLOGY Basophils # 0.1 K/CMM 0.0 - 0.2 05/28 [facility] HEMATOLOGY Eosinophils 0.1 % 0.0 - 4.0 05/28 [facility] HEMATOLOGY Basophils 0.5 % 0.0 - 1.0 05/28 [facility] HEMATOLOGY Monocytes 11.5 % 2.0 - 12.0 05/28 [facility] HEMATOLOGY Segs 77.6 % 45.0 - 05/28 [place] 75.0 /2016 [facility] HEMATOLOGY Lymphocytes 10.3 % 20.0 - 05/28 [place] 40.0 /2016 [facility] CHEM PANEL eGFR 89 05/27 Result Comment: The eGFR is calculated using the CKD-EPI formula. In most young, healthy individuals the eGFR will be >90 mL/ min/1.73m2. The eGFR declines with age. An eGFR of 60-89 may be normal in [facility] mL/min/1. some populations, particularly the elderly, for whom the CKD-EPI formula has not been extensively validated. Use of the eGFR is not recommended in the following populations: [address] Individuals with unstable creatinine concentrations, including [...] Lvl 104 mg/dL 70 - 99 05/27 [facility] CHEM PANEL Creatinine 0.80 mg/dL 0.50 - 05/27 [facility] 1. [facility] CHEM PANEL BUN 9 mg/dL 7 - 22 05/27 [facility] CHEM PANEL Sodium Lvl 137 meq/L 135 - 145 05/27 [facility] CHEM PANEL Potassium 3.9 meq/L 3.5 - 5.1 05/27 Result [facility] Comment: [facility] Slightly Hemolyzed. CHEM PANEL CO2 22 meq/L 24 - 32 05/27 [facility] CHEM PANEL Chloride Lvl 100 meq/L 95 - 109 05/27 [facility] CHEM PANEL Calcium Lvl 8.0 mg/dL 8.5 - 10.5 05/27 [facility] CHEM PANEL AGAP 18.9 meq/L 10.0 - 05/27 [facility] 20.0 [facility] CHEM PANEL Phosphorus 2.3 mg/dL 2.5 - 4.5 05/27 [facility] CHEM PANEL Magnesium 1.7 mg/dL 1.8 - 2.4 05/27 [facility] Lvl [facility] HEMATOLOGY Monocytes 7.2 % 2.0 - 12.0 05/27 [facility] HEMATOLOGY Lymphocytes 7.5 % 20.0 - 05/27 [place] 40.0 [facility] HEMATOLOGY Segs 85.1 % 45.0 - 05/27 [facility] [place] 75.0 [facility] HEMATOLOGY Segs-Bands # 9.0 K/CMM 1.5 - 8.1 05/27 [facility] HEMATOLOGY Basophils 0.2 % 0.0 - 1.0 05/27 [facility] HEMATOLOGY Monocytes # 0.8 K/CMM 0.0 - 0.8 05/27 [facility] HEMATOLOGY Lymphocytes 0.8 K/CMM 1.0 - 5.5 05/27 [place] # /2015 [facility] HEMATOLOGY MCV 88.5 fL 80.0 - 05/27 [place] 94.0 [facility] HEMATOLOGY Hct 31.9 % 42.0 - 05/27 [place] 54.0 [facility] HEMATOLOGY Hgb 11.0 g/dL 14.0 - 05/27 18.0 [facility] HEMATOLOGY RBC 3.61 M/CMM 4.70 - 05/27 [place] 6. [facility] HEMATOLOGY MCH 30.6 pg 27.0 - 05/27 [place] 31.0 [facility] HEMATOLOGY WBC 10.6 K/CMM 3.7 - 10.4 05/27 /2015 [facility] HEMATOLOGY Platelet 205 K/CMM 133 - 450 05/27 /2015 [facility] HEMATOLOGY RDW 14.7 % 11.5 - 05/27 [place] 14.5 [facility] HEMATOLOGY MCHC 34.6 g/dL 32.0 - 05/27 [place] 36.0 [facility] HEMATOLOGY MPV 9.3 fL 7.4 - 10.4 05/27 [facility] PARATHYROI Ca Norm WB 0.99 1.05 - 05/27 [facility] D PROFILE mMol/L 1. [facility] PARATHYROI Ca Ion WB 1.02 1. - 05/27 [facility] D PROFILE mMol/L 1. [facility] Brain wo Brain wo EXAM: CT BRAIN WITHOUT CONTRAST 05/27 - [facility] contrast contrast CT /2015 - Medical CT This report was dictated by a [employer] Engineer/Fellow. I have personally reviewed the images as [...] evacuation. CARDIAC Troponin-T <0.010 0.000 - 05/26 [facility] ENZYMES ng/mL 0.100 [facility] CARDIAC Troponin-I null 0.00 - 05/26 [facility] ENZYMES 0.40 [facility] CARDIAC Total CK 50 unit/L 12 - 191 05/26 [facility] ENZYMES [facility] CHEM PANEL Magnesium 2.1 mg/dL 1.8 - 2.4 05/26 [facility] Lvl [facility] CHEM PANEL eGFR 88 05/26 Result Comment: The eGFR is calculated using the CKD-EPI formula. In most young, healthy individuals the eGFR will be >90 mL/ min/1.73m2. The eGFR declines with age. An eGFR of 60-89 may be normal in [facility] mL/min/1.7 /2015 some populations, particularly the elderly, for whom the CKD-EPI formula has not been extensively validated. Use of the eGFR is not recommended in the following populations: [address] Individuals with unstable creatinine concentrations, including [...] CO2 23 meq/L 24 - 32 05/26 [facility] CHEM PANEL Chloride Lvl 100 meq/L 95 - 109 05/26 [facility] CHEM PANEL Calcium Lvl 7.8 mg/dL 8.5 - 10.5 05/26 [facility] CHEM PANEL AGAP 16.2 meq/L 10.0 - 05/26 [place] 20.0 [facility] CHEM PANEL Sodium Lvl 135 meq/L 135 - 145 05/26 [facility] CHEM PANEL Glucose Lvl 78 mg/dL 70 - 99 05/26 [facility] CHEM PANEL BUN 9 mg/dL 7 - 22 05/26 [facility] CHEM PANEL Potassium 4.2 meq/L 3.5 - 5.1 05/26 Lvl /2015 [facility] CHEM PANEL Creatinine 0.81 mg/dL 0.50 - 05/26 [facility] Lvl 1.40 /2015 [facility] CHEM PANEL Phosphorus 3.3 mg/dL 2.5 - 4.5 05/26 [facility] HEMATOLOGY MCHC 34.6 g/dL 32.0 - 05/26 [place] 36.0 [facility] HEMATOLOGY RDW 14.1 % 11.5 - 05/26 14.5 [facility] HEMATOLOGY RBC 3.69 M/CMM 4.70 - 05/26 [place] 6.10 [facility] HEMATOLOGY WBC 10.1 K/CMM 3.7 - 10.4 05/26 [facility] HEMATOLOGY MPV 9.0 fL 7.4 - 10.4 05/26 [facility] HEMATOLOGY Platelet 234 K/CMM 133 - 450 05/26 [facility] HEMATOLOGY MCH 30.3 pg 27.0 - 05/26 31.0 [facility] HEMATOLOGY MCV 87.7 fL 80.0 - 05/26 [place] 94.0 [facility] HEMATOLOGY Hct 32.4 % 42.0 - 05/26 [place] 54.0 [facility] HEMATOLOGY Hgb 11.2 g/dL 14.0 - 05/26 [place] 18.0 [facility] HEMATOLOGY Ly30 0.2 % 0.0 - 7.5 05/26 [facility] HEMATOLOGY TEG Data See Note 05/26 [facility] (05/26/16 12:43 AM) Center HEMATOLOGY G-value 15.5 K 4.5 - 11.0 05/26 [facility] d/sc /2015 [facility] HEMATOLOGY Max Amp 75.6 mm 50.0 - 05/26 [place] 70.0 /2016 [facility] HEMATOLOGY Coag Index 5.3 -3.0-3.0 - 05/26 [place] 3.0 [facility] HEMATOLOGY K-time 0.8 min 1.0 - 3.0 05/26 [facility] HEMATOLOGY Angle 78.6 53.0 - 05/26 [facility] degrees 72.0 [facility] HEMATOLOGY R-time 2.8 min 5.0 - 10.0 05/26 /2015 [facility] HEMATOLOGY TEG Interp Thrombelas 05/26 [facility] tograph [facility] show shortened value of R and increased values of both Angle Alpha and MA. These findings are suggestive of platelet and enzymatic hypercoagu lation which may be seen in early phase of DIC. Monitor for DIC with DIC panel may be indicated. CPT:52022 HEMATOLOGY Monocytes 10.1 % 2.0 - 12.0 05/26 /2015 [facility] HEMATOLOGY Lymphocytes 13.2 % 20.0 - 05/26 [place] 40.0 [facility] HEMATOLOGY Segs-Bands # 7.7 K/CMM 1.5 - 8.1 05/26 /2015 [facility] HEMATOLOGY Basophils 0.4 % 0.0 - 1.0 05/26 [facility] HEMATOLOGY Eosinophils 0.1 % 0.0 - 4.0 05/26 /2015 [facility] HEMATOLOGY Monocytes # 1.0 K/CMM 0.0 - 0.8 05/26 /2015 [facility] HEMATOLOGY Lymphocytes 1.3 K/CMM 1.0 - 5.5 05/26 [facility] # /2015 [facility] HEMATOLOGY Segs 76.2 % 45.0 - 05/26 [place] 75.0 [facility] PARATHYROI Ca Ion WB 1.11 1.05 - 05/26 [facility] D PROFILE mMol/L 1. [facility] PARATHYROI Ca Norm WB 1.08 1.05 - 05/26 [facility] D PROFILE mMol/L 1. [facility] Brain wo Brain wo EXAM: CT BRAIN 05/25 - [facility] contrast contrast CT /2015 - [facility] CT Center DATE: 05/25/2016 at 23:43 Read by: Kim Salgado MD [facility] Date/time: 05/26/16 00:23 Electronically Signed by: Kim [...] eGFR of 60-89 may be normal in [facility] mL/min/1. some populations, particularly the elderly, for whom the CKD-EPI formula has not been extensively validated. Use of the eGFR is not recommended in the following populations: [address] Individuals with unstable creatinine concentrations, including [...] PANEL AGAP 15.3 meq/L 10.0 - 05/25 [facility] 20.0 [facility] CHEM PANEL CO2 25 meq/L 24 - 32 05/25 [facility] CHEM PANEL Calcium Lvl 7.9 mg/dL 8.5 - 10.5 05/25 [facility] CHEM PANEL Chloride Lvl 100 meq/L 95 - 109 05/25 [facility] CHEM PANEL Potassium 4.3 meq/L 3.5 - 5.1 05/25 [facility] Lvl [facility] CHEM PANEL Sodium Lvl 136 meq/L 135 - 145 05/25 [facility] CHEM PANEL Creatinine 0.94 mg/dL 0.50 - 05/25 [facility] 1.40 [facility] CHEM PANEL Glucose Lvl 113 mg/dL 70 - 99 05/25 [facility] CHEM PANEL BUN 8 mg/dL 7 - 22 05/25 [facility] HEMATOLOGY INR 1.19 0.85 - 05/25 [place] 1.17 [facility] HEMATOLOGY PT 15.4 s 12.0 - 05/25 [place] 14.7 [facility] HEMATOLOGY PTT 34.1 s 22.9 - 05/25 [place] 35.8 [facility] PARATHYROI Ca Ion WB 1.07 1.05 - 05/25 [facility] D PROFILE mMol/L 1.25 [facility] PARATHYROI Ca Norm WB 1.04 1.05 - 05/25 [facility] D PROFILE mMol/L 1.25 [facility] CARDIAC Troponin-T <0.010 0.000 - 05/25 [facility] ENZYMES ng/mL 0.100 [facility] CARDIAC Troponin-I null 0.00 - 05/25 [facility] ENZYMES 0.40 [facility] CARDIAC Total CK 57 unit/L 12 - 191 05/25 [facility] ENZYMES [facility] CHEM PANEL A/G Ratio 1.1 0.7 - 1.6 05/25 [facility] CHEM PANEL Bili 0.4 mg/dL 0.0 - 1.0 05/25 [place] Indirect [facility] CHEM PANEL Bili Total 0.6 mg/dL 0.2 - 1.3 05/25 [facility] CHEM PANEL Bili Direct 0.2 mg/dL 0.0 - 0.3 05/25 [facility] CHEM PANEL AST 13 unit/L 0 - 37 05/25 [facility] CHEM PANEL Alk Phos 113 unit/L 39 - 136 05/25 [facility] CHEM PANEL Globulin 2.7 g/dL 2.7 - 4.2 05/25 [facility] CHEM PANEL Total 5.7 g/dL 6.4 - 8.4 05/25 Protein [facility] CHEM PANEL Albumin Lvl 3.0 g/dL 3.5 - 5.0 05/25 [facility] CHEM PANEL ALT 14 unit/L 0 - 65 05/25 [facility] CHEM PANEL Phosphorus 3.2 mg/dL 2.5 - 4.5 05/25 [facility] CHEM PANEL Magnesium 1.7 mg/dL 1.8 - 2.4 05/25 [facility] Lvl /2015 [facility] Brain wo Brain wo Examination: MRI brain without contrast 05/25 [facility] contrast contrast MRI /2015 [facility] DATE: 05/25/2016 Read by: Jaspreet [...] EXAM: XR CHEST 1 VIEW 05/25 - [facility] 1view DX DX /2015 [facility] DATE: 05/26/2016 3:00 AM CDT Read by: Faheem North MD Dictated Date/time: 05/26/16 10:30 Electronically Signed by: Faheem North MD 05/26/16 10:30 FINAL REPORT INDICATION: Respiratory distress COMPARISON: 05/24/2016 TECHNIQUE: AP chest IMPRESSION: 1. Both lungs are clear. Costophrenic recesses are sharp. Cardiomediastinal silhouette within normal limits. No acute osseous abnormalities. BLOOD BANK AB Int Anti-E 05/25 [place] RESULTS [facility] BLOOD BANK Path AB Transfusio 05/25 [facility] RESULTS n [facility] NoteThijodi is a 71 y/o male who [...] the resident Dr. Lillian Alcantar's interpreta tion.CPT: [id number] BLOOD BANK ABO/Rh O POS 05/25 [facility] BLOOD BANK Antibody Positive 1 05/25 Result Comment: 05/25/2016 01:18 [id number] [facility] RESULTS Scr "Significant Findings called to Baljinder CAPUTO at 0115 by [email or web address].Read Back OK." [facility] (05/24/16 9:09 PM) [place] 05/25/2016 01:14 [id number] Patient has unexpected antibodies. Allow extra time for additional crossmatches. HEMATOLOGY Max 68 mm 52 - 71 05/25 [facility] Amplitude [facility] HEMATOLOGY G-value 10.4 K 5.0 - 11.6 05/25 [facility] Rapid d/sc [facility] HEMATOLOGY Estimated % 0.4 % 0.0 - 7.5 05/25 [facility] Lysis [facility] HEMATOLOGY ACT (TEG) 121 s 86 - 118 05/25 [facility] HEMATOLOGY [place] 0.7 min 05/25 [facility] HEMATOLOGY R-time Rapid 0.8 min 0.4 - 0.7 05/25 [facility] HEMATOLOGY K-time Rapid 0.8 min 0.6 - 2.3 05/25 [facility] HEMATOLOGY Angle Rapid 80 degrees 64 - 80 05/25 [facility] HEMATOLOGY Eosinophils 1.7 % 0.0 - 4.0 05/25 [facility] /2015 [facility] HEMATOLOGY Eosinophils 0.1 K/CMM 0.0 - 0.5 05/25 [facility] # /2015 [facility] HEMATOLOGY Basophils # 0.1 K/CMM 0.0 - 0.2 05/25 [facility] HEMATOLOGY PTT 32.0 s 22.9 - 05/25 [facility] 35.8 [facility] Brain-Outs Brain-Outsid Exam: CT head without contrast 05/24 [facility] madelyn e Consult CT - Medical [...] 1.8 cm in thickness. Associated 0.8 cm [id number] midline shift. Brain/Neck Brain/Neck EXAM: CT ANGIOGRAM OF THE HEAD 05/24 [facility] CTA CTA /2015 - Medical EXAM: [...] P2 to P4 segments of the right [employer] compatible w ith diffuse disease. Diffuse changes of centrilobular emphysema in bilateral upper lungs. IMPRESSION: 1. Interval increase in size of the hyperacute subdural hematoma overlying the right cerebral hemisphere now measuring 2.6 cm previously measured 2.0 cm concerning for active bleeding. 2. Diffuse luminal irregularities of distal sylvian branches of the left MCA and distal branches of the right [employer] compatible with diffuse atherosclerotic disease. Diffuse arteriosclerosis [...] wo EXAM: CT HEAD WITHOUT CONTRAST 05/24 [facility] contrast contrast CT /2016 - [facility] CT Center DATE: 05/24/2016 8:56 PM CDT [...] EXAM: XR CHEST 1 VIEW 05/24 - [facility] 1view DX /2015 - Medical This report was dictated by a [employer] Process Engineer/Fellow. I have personally reviewed the images as [...] [facility] Weight 177 10/24/2017 [facility] Systolic (mm Hg) 178 05/30/2016 [facility] Diastolic (mm Hg) 88 05/30/2016 [facility] Temperature Oral (F) 97.7 F 05/30/2016 [facility] Heart Rate 65 05/30/2016 [facility] Respitory Rate 18 05/30/2016 [facility] Respitory Rate 18 05/30/2016 [facility] Heart Rate 71 05/30/2016 [facility] Systolic (mm Hg) 176 05/30/2016 [facility] Diastolic (mm Hg) 90 05/30/2016 [facility] Temperature Oral (F) 97.8 F 05/30/2016 [facility] Systolic (mm Hg) 113 05/30/2016 [facility] Diastolic (mm Hg) 62 05/30/2016 [facility] Temperature Oral (F) 98.1 F 05/30/2016 [facility] Respitory Rate 16 05/30/2016 [facility] Heart Rate 68 05/30/2016 [facility] BMI Calculated 25.6 05/25/2016 [facility] Weight 76.36 05/25/2016 [facility] Height 172.72 cm 05/25/2016 [facility] Weight 76.364 05/25/2016 [facility] BMI Calculated 26.37 05/25/2016 [facility] Height 170.18 cm 05/25/2016 [facility] Encounters Location Location Encounter Encounter Reason Attending ADM DC Status Source Details Type Number For Provider Date Date Visit [facility] [id number] [place] 05/25 05/30 [facility] [place] [facility]2015 [facility] Outpatient [id number] TRAUMA 06/12 Active [facility] /2015 [place] [facility] [id number] TRAUMA 07/24 Active [facility] /[address] Registered [id number] 07/[address] [facility] Dis[facility] [id number] 08/29 08/[address] [facility] Inpatient /2017 [facility] Reg[facility] [id number] 09[facility] [facility] Referred /2018 [facility] Reg[facility] [id number] 09[facility] [facility] Referred [facility] [place] [facility] Dis[facility] [id number] 09/14 09/[address] [facility] /2017 [facility] [place] [facility] Reg[facility] [id number] 09/[address] [facility] Referred /2018 [facility] [place] [facility] Reg[facility] [id number] 09/[address] [facility] [place] [facility] Reg[facility] [id number] 09/30 [facility] [place] [facility] Departed [id number] 10[facility]06 10/[address] [facility] /2017 [facility] [place] [facility] Registered [id number] 10/12 [facility]2018 [facility] [place] [facility] Reg[facility] [id number] 10[facility] [facility]2018 [facility] [place] [facility] Dis[facility] [id number] 10/23 10/[address] [facility]2017 [facility] [place] [facility] Outpatient [id number] ALINA 08/13 Active [facility] [place] Outpatient [id number] ALINA 05/13 Active [facility] /[address] [place] [address] Procedures Procedure Code Date Perfomer Comments Source Occult Blood [facility] - [place] Angio Aorta For [id number] [facility] Dissection 8 - [place] TRANSFUSE [id number] [facility] NONAUT RED 8 - [place] BLOOD CELLS IN PERIPH VEIN, PERC EXCISION OF [id number] [facility] STOMACH, ENDO, 8 - [place] DIAGN Chest Angio [id number] [facility] [place] Anaerobic Blood [id number] [facility] 8 - [place] Aerobic Blood [id number] [facility] 8 - [place] Abdomen & [id number] [facility] Pelvis W 8 - [place] Contrast Chest Pa And [id number] [facility] Lat (2 Views[facility] 8 - [place] Influenza Type [facility] B Antigen 8 - [place] Screen Influenza Type [facility] A Antigen 8 - [place] Screen Chest Pa And [id number] [facility] Lat (2 Views) 7 - [place] Abdominal [id number] Had MRI [facility] aortic aneurysm after repair [facility] stenting<sup>1< /sup> Bypass / graft [id number] [facility] Hernia repair [id number] [facility]
--- OUTSIDE RECORDS SUMMARY | 2019-01-23 22:09 | XMS REPORT ---
:1945 [facility] Address [address] [place] [id number] Care Team Providers Name Role Phone PITER [...] Value Reference Range Comments CULTURE (BEAKER) (test crna=2811) No acid-fast bacilli isolated in 42 days AFB SMEAR (BEAKER) (test ffxa=763) No acid fast bacilli seen AFB CULTURE + [id number] 20:50:00 Test Item Value Reference Range Comments CULTURE (BEAKER) (test No acid-fast bacilli isolated azlj=1000) in 42 days AFB SMEAR (BEAKER) (test No acid fast bacilli seen hpbv=788) FUNGUS CULTURE + [id number] 10:14:00 Test Item Value Reference Range Comments CULTURE (BEAKER) (test No fungus isolated in 28 days pjgs=9838) FUNGUS SMEAR (BEAKER) (test No fungi seen cfkk=5719) FUNGUS CULTURE + [id number] 10:14:00 Test Item Value Reference Range Comments CULTURE (BEAKER) (test No fungus isolated in 28 days ejqf=1546) FUNGUS SMEAR (BEAKER) (test No fungi seen udog=2279) VANCOMYCIN LEVEL, [id number] 05:33:00 Test Item Value Reference Range Comments VANCOMYCIN RANDOM (BEAKER) (test xwul=990) 16.9 ug/mL Reference Range: No NormalsBASIC METABOLIC [id number] 05:29:00 Test Item Value Reference Range Comments SODIUM (BEAKER) (test 137 meq/L 136-145 cvjb=117) POTASSIUM (BEAKER) (test 3.5 meq/L 3.5-5.1 jfpx=484) CHLORIDE (BEAKER) (test 106 meq/L 98-107 hpjr=160) CO2 (BEAKER) (test 22 meq/L 22-29 vsst=607) BLOOD UREA NITROGEN 18 mg/dL 7-21 (BEAKER) (test bksy=750) CREATININE (BEAKER) (test 0.92 mg/dL 0.57-1.25 okgq=919) GLUCOSE RANDOM (BEAKER) 95 mg/dL 70-105 (test qyds=735) CALCIUM (BEAKER) (test 8.7 mg/dL 8.4-10.2 avjc=578) EGFR (BEAKER) (test 80 mL/min/1.73 sq m ESTIMATED GFR IS NOT jaxh=5035) ACCURATE CREATININE CLEARANCE IN PREDICTING GLOMERULAR FILTRATION RATE. ESTIMATED GFR IS NOT APPLICABLE FOR DIALYSIS PATIENTS. PROTHROMBIN [id number] 05:21:00 Test Item Value Reference Range Comments PROTIME (BEAKER) (test fyjs=768) 25.0 seconds 11.7-14.7 INR (BEAKER) (test vwxq=840) 2.3 <=5.9 RECOMMENDED COUMADIN/WARFARIN INR THERAPY RANGESSTANDARD DOSE: 2.0 - 3.0 Includes: PROPHYLAXIS forvenous thrombosis, systemic embolization; TREATMENT for venous thrombosis and/or pulmonary embolus.HIGH RISK: Target INR is 2.5-3.5 for patients with mechanical heart valves.While on warfarin.BASIC METABOLIC [id number] 16:35:00 Test Item Value Reference Range Comments SODIUM (BEAKER) (test 137 meq/L 136-145 fxqq=223) POTASSIUM (BEAKER) (test 3.5 meq/L 3.5-5.1 zwdo=944) CHLORIDE (BEAKER) (test 105 meq/L 98-107 affn=755) CO2 (BEAKER) (test 26 meq/L 22-29 qyzd=689) BLOOD UREA NITROGEN 16 mg/dL 7-21 (BEAKER) (test sjba=289) CREATININE (BEAKER) (test 1.02 mg/dL 0.57-1.25 eypk=567) GLUCOSE RANDOM (BEAKER) 123 mg/dL 70-105 (test entt=521) CALCIUM (BEAKER) (test 9.0 mg/dL 8.4-10.2 ghko=247) EGFR (BEAKER) (test 71 mL/min/1.73 sq m ESTIMATED GFR IS NOT lfsq=8193) ACCURATE CREATININE CLEARANCE IN PREDICTING GLOMERULAR FILTRATION RATE. ESTIMATED GFR IS NOT APPLICABLE FOR DIALYSIS PATIENTS. ANAEROBIC [id number] 08:59:00 Test Item Value Reference Range Comments CULTURE (BEAKER) (test khuv=7062) No anaerobes isolated ANAEROBIC [id number] 08:58:00 Test Item Value Reference Range Comments CULTURE (BEAKER) (test xxnn=9723) No anaerobes isolated VANCOMYCIN LEVEL, [id number] 05:18:00 Test Item Value Reference Range Comments VANCOMYCIN RANDOM (BEAKER) (test vqyb=017) 19.8 ug/mL Reference Range: No NormalsPROTHROMBIN [id number] 04:55:00 Test Item Value Reference Range Comments PROTIME (BEAKER) (test qati=137) 23.5 seconds 11.7-14.7 INR (BEAKER) (test tryz=410) 2.1 <=5.9 RECOMMENDED COUMADIN/WARFARIN INR THERAPY RANGESSTANDARD DOSE: 2.0 - 3.0 Includes: PROPHYLAXIS forvenous thrombosis, systemic embolization; TREATMENT for venous thrombosis and/or pulmonary embolus.HIGH RISK: Target INR is 2.5-3.5 for patients with mechanical heart valves.While on warfarin.VANCOMYCIN LEVEL, [id number] 18:17:00 Test Item Value Reference Range Comments VANCOMYCIN TROUGH (BEAKER) (test rejh=125) 25.2 ug/mL 10.0-20.0 BASIC METABOLIC [id number] 15:13:00 Test Item Value Reference Range Comments SODIUM (BEAKER) (test 137 meq/L 136-145 kdim=297) POTASSIUM (BEAKER) (test 3.6 meq/L 3.5-5.1 ngpu=843) CHLORIDE (BEAKER) (test 108 meq/L 98-107 dvso=007) CO2 (BEAKER) (test 22 meq/L 22-29 rwir=918) BLOOD UREA NITROGEN 16 mg/dL 7-21 (BEAKER) (test lbgc=275) CREATININE (BEAKER) (test 1.06 mg/dL 0.57-1.25 vkhz=186) GLUCOSE RANDOM (BEAKER) 125 mg/dL 70-105 (test uqpm=897) CALCIUM (BEAKER) (test 8.6 mg/dL 8.4-10.2 yhpm=978) EGFR (BEAKER) (test 68 mL/min/1.73 sq m ESTIMATED GFR IS NOT twyc=7480) ACCURATE CREATININE CLEARANCE IN PREDICTING GLOMERULAR FILTRATION RATE. ESTIMATED GFR IS NOT APPLICABLE FOR DIALYSIS PATIENTS. PROTHROMBIN TIME/[id number] 06:16:00 Test Item Value Reference Range Comments PROTIME (BEAKER) (test zjqa=714) 21.9 seconds 11.7-14.7 INR (BEAKER) (test mkyl=460) 1.9 <=5.9 RECOMMENDED COUMADIN/WARFARIN INR THERAPY RANGESSTANDARD DOSE: 2.0 - 3.0 Includes: PROPHYLAXIS forvenous thrombosis, systemic embolization; TREATMENT for venous thrombosis and/or pulmonary embolus.HIGH RISK: Target INR is 2.5-3.5 for patients with mechanical heart valves.While on warfarin.LACTIC ACID, VENOUS , WHOLE [id number] 06:09:00 Test Item Value Reference Range Comments LACTATE BLOOD VENOUS (2) (BEAKER) (test 0.6 mmol/L 0.5-2.2 uniy=1179) Effective 12/12/2015: Units/Reference Range ChangeNew: 0.5-2.2 mmol/L Previous: 5 -20 mg/dLTISSUE [id number] 11:35:00Surgical Pathology Report Case: [id number] Authorizing Provider: Aris Parker MD Collected: 03/23/2018 1136 Ordering Location: [facility] Received: 2017 1158 PERIOPERATIVE SERVICES Pathologist: Lanie Jaquez MD Specimen: Groin, Right, Right Groin Tissue SOFT TISSUE, RIGHT GROIN, DEBRIDEMENT: - FIBROADIPOSE TISSUE WITH FAT NECROSIS, ACUTE AND CHRONIC INFLAMMATION, AND FOREIGN BODY GIANT CELL REACTION Signing Pathologist Direct Phone Line: [phone] signed by Lanie Jaquez MD on 2017 at 11:35 [id number] groin tissueThe specimen is received in a formalin-filled container and labeled with the patient's information and labeled "right groin tissue" and consists of a segment of rodríguez-chapman hemorrhagic soft tissue measuring 3 x 1.6 x 0.5 cm. Regional Education Coordinator sections are submitted A1.CG/pl Performed.SURGICALLY OBTAINED CULTURE + GRAM [id number] 09:47:00 Test Item Value Reference Range Comments GRAM STAIN RESULT (BEAKER) (test <1+ WBCs tzin=4351) GRAM STAIN RESULT (BEAKER) (test No organisms seen gfzu=95856) SURGICALLY OBTAINED CULTURE + GRAM [id number] 09:45:00 Test Item Value Reference Range Comments CULTURE (BEAKER) (test METHICILLIN RESISTANT 1+ Methicillin swlw=6877) STAPHYLOCOCCUS AUREUS resistant Staphylococcus aureus Clindamycin (test code=10) Erythromycin (test code=4) Linezolid (test code=40) Nitrofurantoin (test code=23) Oxacillin (test code=14) Rifampin (test code=43) Tetracycline (test code=2) Trimethoprim + Sulfamethoxazole (test code=47) Vancomycin (test code=13) CULTURE (BEAKER) (test ENTEROCOCCUS SPECIES 1+ Enterococcus opop=0802) species Ampicillin (test code=26) Linezolid (test code=40) Vancomycin (test code=13) GRAM STAIN RESULT <1+ WBCs (BEAKER) (test zcii=0569) GRAM STAIN RESULT No organisms seen (BEAKER) (test qclm=152589) BASIC METABOLIC [id number] 05:17:00 Test Item Value Reference Range Comments SODIUM (BEAKER) (test 136 meq/L 136-145 xzoq=998) POTASSIUM (BEAKER) (test 3.5 meq/L 3.5-5.1 xmry=022) CHLORIDE (BEAKER) (test 107 meq/L 98-107 crhc=509) CO2 (BEAKER) (test 22 meq/L 22-29 outw=416) BLOOD UREA NITROGEN 9 mg/dL 7-21 (BEAKER) (test gaqd=799) CREATININE (BEAKER) (test 1.01 mg/dL 0.57-1.25 efxr=204) GLUCOSE RANDOM (BEAKER) 88 mg/dL 70-105 (test imef=412) CALCIUM (BEAKER) (test 8.5 mg/dL 8.4-10.2 mbit=071) EGFR (BEAKER) (test 72 mL/min/1.73 sq m ESTIMATED GFR IS NOT jqgb=5960) ACCURATE CREATININE CLEARANCE IN PREDICTING GLOMERULAR FILTRATION RATE. ESTIMATED GFR IS NOT APPLICABLE FOR DIALYSIS PATIENTS. PROTHROMBIN [id number] 05:06:00 Test Item Value Reference Range Comments PROTIME (BEAKER) (test qmwh=689) 21.9 seconds 11.7-14.7 INR (BEAKER) (test hflm=331) 1.9 <=5.9 RECOMMENDED COUMADIN/WARFARIN INR THERAPY RANGESSTANDARD DOSE: 2.0 - 3.0 Includes: PROPHYLAXIS forvenous thrombosis, systemic embolization; TREATMENT for venous thrombosis and/or pulmonary embolus.HIGH RISK: Target INR is 2.5-3.5 for patients with mechanical heart valves.While on warfarin.BASIC METABOLIC [id number] 07:04:00 Test Item Value Reference Range Comments SODIUM (BEAKER) (test 136 meq/L 136-145 sndb=271) POTASSIUM (BEAKER) (test 3.4 meq/L 3.5-5.1 wnqo=949) CHLORIDE (BEAKER) (test 106 meq/L 98-107 ncnc=172) CO2 (BEAKER) (test 24 meq/L 22-29 mksy=033) BLOOD UREA NITROGEN 8 mg/dL 7-21 (BEAKER) (test bihw=182) CREATININE (BEAKER) (test 1.22 mg/dL 0.57-1.25 bimw=702) GLUCOSE RANDOM (BEAKER) 88 mg/dL 70-105 (test ufhi=564) CALCIUM (BEAKER) (test 8.7 mg/dL 8.4-10.2 doar=543) EGFR (BEAKER) (test 58 mL/min/1.73 sq m ESTIMATED GFR IS NOT tcit=9839) ACCURATE CREATININE CLEARANCE IN PREDICTING GLOMERULAR FILTRATION RATE. ESTIMATED GFR IS NOT APPLICABLE FOR DIALYSIS PATIENTS. PROTHROMBIN TIME/[id number] 06:28:00 Test Item Value Reference Range Comments PROTIME (BEAKER) (test ixic=879) 25.8 seconds 11.7-14.7 INR (BEAKER) (test pygn=635) 2.4 <=5.9 RECOMMENDED COUMADIN/WARFARIN INR THERAPY RANGESSTANDARD DOSE: 2.0 - 3.0 Includes: PROPHYLAXIS forvenous thrombosis, systemic embolization; TREATMENT for venous thrombosis and/or pulmonary embolus.HIGH RISK: Target INR is 2.5-3.5 for patients with mechanical heart valves.While on warfarin.CBC W/PLT COUNT &amp ; AUTO [id number] 06:18:00 Test Item Value Reference Range Comments WHITE BLOOD CELL COUNT (BEAKER) (test ayin=286) 3.8 K/ L 3.5-10.5 RED BLOOD CELL COUNT (BEAKER) (test cpeg=319) 3.43 M/ L 4.63-6.08 HEMOGLOBIN (BEAKER) (test ronr=338) 9.2 GM/DL 13.7-17.5 HEMATOCRIT (BEAKER) (test kfwz=028) 29.6 % 40.1-51.0 MEAN CORPUSCULAR VOLUME (BEAKER) (test vmxn=707) 86.3 fL 79.0-92.2 MEAN CORPUSCULAR HEMOGLOBIN (BEAKER) (test 26.8 pg 25.7-32.2 awot=204) MEAN CORPUSCULAR HEMOGLOBIN CONC (BEAKER) (test 31.1 GM/DL 32.3-36.5 yfcs=372) RED CELL DISTRIBUTION WIDTH (BEAKER) (test 15.8 % 11.6-14.4 moub=161) PLATELET COUNT (BEAKER) (test kcka=359) 163 K/CU MM 150-450 MEAN PLATELET VOLUME (BEAKER) (test wego=485) 9.9 fL 9.4-12.4 NUCLEATED RED BLOOD CELLS (BEAKER) (test 0 /100 WBC 0-0 vitb=592) NEUTROPHILS RELATIVE PERCENT (BEAKER) (test 57 % kmhv=554) LYMPHOCYTES RELATIVE PERCENT (BEAKER) (test 24 % fhun=441) MONOCYTES RELATIVE PERCENT (BEAKER) (test 12 % bhyk=117) EOSINOPHILS RELATIVE PERCENT (BEAKER) (test 6 % ukjv=755) BASOPHILS RELATIVE PERCENT (BEAKER) (test 1 % yyjq=519) NEUTROPHILS ABSOLUTE COUNT (BEAKER) (test 2.18 K/ L 1.78-5.38 zopm=719) LYMPHOCYTES ABSOLUTE COUNT (BEAKER) (test 0.93 K/ L 1.32-3.57 nbyv=232) MONOCYTES ABSOLUTE COUNT (BEAKER) (test 0.44 K/ L 0.30-0.82 bdre=861) EOSINOPHILS ABSOLUTE COUNT (BEAKER) (test 0.23 K/ L 0.04-0.54 ckbd=580) BASOPHILS ABSOLUTE COUNT (BEAKER) (test 0.03 K/ L 0.01-0.08 ndjs=873) IMMATURE GRANULOCYTES-RELATIVE PERCENT (BEAKER) 0 % 0-1 (test ioua=1335) VANCOMYCIN LEVEL, [id number] 17:22:00 Test Item Value Reference Range Comments VANCOMYCIN TROUGH (BEAKER) (test pyng=472) 14.6 ug/mL 10.0-20.0 SPIN/CONCENTRATION [id number] 10:53:00 Test Item Value Reference Range Comments CONCENTRATION CHARGED (BEAKER) (test owus=4839) Done BASIC METABOLIC [id number] 07:34:00 Test Item Value Reference Range Comments SODIUM (BEAKER) (test 133 meq/L 136-145 ddxs=918) POTASSIUM (BEAKER) (test 3.5 meq/L 3.5-5.1 ucft=627) CHLORIDE (BEAKER) (test 104 meq/L 98-107 jqeq=878) CO2 (BEAKER) (test 23 meq/L 22-29 xlmo=622) BLOOD UREA NITROGEN 7 mg/dL 7-21 (BEAKER) (test rvdc=397) CREATININE (BEAKER) (test 0.96 mg/dL 0.57-1.25 wbhw=278) GLUCOSE RANDOM (BEAKER) 94 mg/dL 70-105 (test bjln=899) CALCIUM (BEAKER) (test 8.8 mg/dL 8.4-10.2 zkyg=878) EGFR (BEAKER) (test 76 mL/min/1.73 sq m ESTIMATED GFR IS NOT jguv=1569) ACCURATE CREATININE CLEARANCE IN PREDICTING GLOMERULAR FILTRATION RATE. ESTIMATED GFR IS NOT APPLICABLE FOR DIALYSIS PATIENTS. PROTHROMBIN TIME/[id number] 07:05:00 Test Item Value Reference Range Comments PROTIME (BEAKER) (test rthp=476) 27.5 seconds 11.7-14.7 INR (BEAKER) (test chkh=735) 2.6 <=5.9 RECOMMENDED COUMADIN/WARFARIN INR THERAPY RANGESSTANDARD DOSE: 2.0 - 3.0 Includes: PROPHYLAXIS forvenous thrombosis, systemic embolization; TREATMENT for venous thrombosis and/or pulmonary embolus.HIGH RISK: Target INR is 2.5-3.5 for patients with mechanical heart valves.CBC W/PLT COUNT & AUTO [id number] 06:55:00 Test Item Value Reference Range Comments WHITE BLOOD CELL COUNT (BEAKER) (test vess=657) 5.3 K/ L 3.5-10.5 RED BLOOD CELL COUNT (BEAKER) (test tvrz=439) 4.03 M/ L 4.63-6.08 HEMOGLOBIN (BEAKER) (test nnuz=958) 10.8 GM/DL 13.7-17.5 HEMATOCRIT (BEAKER) (test nlys=863) 34.9 % 40.1-51.0 MEAN CORPUSCULAR VOLUME (BEAKER) (test ypyp=576) 86.6 fL 79.0-92.2 MEAN CORPUSCULAR HEMOGLOBIN (BEAKER) (test 26.8 pg 25.7-32.2 jjec=056) MEAN CORPUSCULAR HEMOGLOBIN CONC (BEAKER) (test 30.9 GM/DL 32.3-36.5 ctix=196) RED CELL DISTRIBUTION WIDTH (BEAKER) (test 15.4 % 11.6-14.4 gidt=564) PLATELET COUNT (BEAKER) (test hvst=900) 185 K/CU MM 150-450 MEAN PLATELET VOLUME (BEAKER) (test tmdw=824) 10.1 fL 9.4-12.4 NUCLEATED RED BLOOD CELLS (BEAKER) (test 0 /100 WBC 0-0 guys=114) NEUTROPHILS RELATIVE PERCENT (BEAKER) (test 65 % qtwp=739) LYMPHOCYTES RELATIVE PERCENT (BEAKER) (test 17 % facg=938) MONOCYTES RELATIVE PERCENT (BEAKER) (test 12 % hson=465) EOSINOPHILS RELATIVE PERCENT (BEAKER) (test 5 % dlyp=655) BASOPHILS RELATIVE PERCENT (BEAKER) (test 1 % xxrq=984) NEUTROPHILS ABSOLUTE COUNT (BEAKER) (test 3.46 K/ L 1.78-5.38 isgw=231) LYMPHOCYTES ABSOLUTE COUNT (BEAKER) (test 0.91 K/ L 1.32-3.57 wrzl=628) MONOCYTES ABSOLUTE COUNT (BEAKER) (test 0.61 K/ L 0.30-0.82 muzm=704) EOSINOPHILS ABSOLUTE COUNT (BEAKER) (test 0.26 K/ L 0.04-0.54 eboh=672) BASOPHILS ABSOLUTE COUNT (BEAKER) (test 0.03 K/ L 0.01-0.08 mjqh=975) IMMATURE GRANULOCYTES-RELATIVE PERCENT (BEAKER) 0 % 0-1 (test ihau=1903) BASIC METABOLIC [id number] 06:54:00 Test Item Value Reference Range Comments SODIUM (BEAKER) (test 134 meq/L 136-145 vncu=437) POTASSIUM (BEAKER) (test 3.6 meq/L 3.5-5.1 bmma=148) CHLORIDE (BEAKER) (test 102 meq/L 98-107 ilqw=308) CO2 (BEAKER) (test 27 meq/L 22-29 yjsb=552) BLOOD UREA NITROGEN 8 mg/dL 7-21 (BEAKER) (test ognr=393) CREATININE (BEAKER) (test 0.97 mg/dL 0.57-1.25 gvpj=121) GLUCOSE RANDOM (BEAKER) 91 mg/dL 70-105 (test rtxr=096) CALCIUM (BEAKER) (test 8.4 mg/dL 8.4-10.2 wweh=404) EGFR (BEAKER) (test 75 mL/min/1.73 sq m ESTIMATED GFR IS NOT aczi=0302) ACCURATE CREATININE CLEARANCE IN PREDICTING GLOMERULAR FILTRATION RATE. ESTIMATED GFR IS NOT APPLICABLE FOR DIALYSIS PATIENTS. PROTHROMBIN TIME/[id number] 05:47:00 Test Item Value Reference Range Comments PROTIME (BEAKER) (test ytov=560) 31.6 seconds 11.7-14.7 INR (BEAKER) (test gcyl=751) 3.1 <=5.9 RECOMMENDED COUMADIN/WARFARIN INR THERAPY RANGESSTANDARD DOSE: 2.0 - 3.0 Includes: PROPHYLAXIS forvenous thrombosis, systemic embolization; TREATMENT for venous thrombosis and/or pulmonary embolus.HIGH RISK: Target INR is 2.5-3.5 for patients with mechanical heart valves.CBC W/PLT COUNT & AUTO [id number] 05:35:00 Test Item Value Reference Range Comments WHITE BLOOD CELL COUNT (BEAKER) (test loyi=346) 4.3 K/ L 3.5-10.5 RED BLOOD CELL COUNT (BEAKER) (test crdw=060) 3.62 M/ L 4.63-6.08 HEMOGLOBIN (BEAKER) (test ymui=094) 9.6 GM/DL 13.7-17.5 HEMATOCRIT (BEAKER) (test vrjb=384) 31.5 % 40.1-51.0 MEAN CORPUSCULAR VOLUME (BEAKER) (test sdhh=200) 87.0 fL 79.0-92.2 MEAN CORPUSCULAR HEMOGLOBIN (BEAKER) (test 26.5 pg 25.7-32.2 zhik=629) MEAN CORPUSCULAR HEMOGLOBIN CONC (BEAKER) (test 30.5 GM/DL 32.3-36.5 keek=575) RED CELL DISTRIBUTION WIDTH (BEAKER) (test 15.4 % 11.6-14.4 oevw=323) PLATELET COUNT (BEAKER) (test agrf=238) 164 K/CU MM 150-450 MEAN PLATELET VOLUME (BEAKER) (test jqyg=617) 9.9 fL 9.4-12.4 NUCLEATED RED BLOOD CELLS (BEAKER) (test 0 /100 WBC 0-0 rwyb=153) NEUTROPHILS RELATIVE PERCENT (BEAKER) (test 57 % ftsv=040) LYMPHOCYTES RELATIVE PERCENT (BEAKER) (test 22 % lbta=631) MONOCYTES RELATIVE PERCENT (BEAKER) (test 14 % pwli=375) EOSINOPHILS RELATIVE PERCENT (BEAKER) (test 6 % dbtc=695) BASOPHILS RELATIVE PERCENT (BEAKER) (test 1 % ulcs=946) NEUTROPHILS ABSOLUTE COUNT (BEAKER) (test 2.48 K/ L 1.78-5.38 ljsd=572) LYMPHOCYTES ABSOLUTE COUNT (BEAKER) (test 0.96 K/ L 1.32-3.57 gtwb=188) MONOCYTES ABSOLUTE COUNT (BEAKER) (test 0.59 K/ L 0.30-0.82 zpfa=547) EOSINOPHILS ABSOLUTE COUNT (BEAKER) (test 0.25 K/ L 0.04-0.54 lzoy=859) BASOPHILS ABSOLUTE COUNT (BEAKER) (test 0.03 K/ L 0.01-0.08 csyw=349) IMMATURE GRANULOCYTES-RELATIVE PERCENT (BEAKER) 1 % 0-1 (test bvws=7036) TISSUE [id number] 16:28:00Surgical Pathology Report Case: [id number] Authorizing Provider: Nando Hdz MD Collected: 02/02/20181941 Ordering Location: [facility] Received: 02/03/2018 0813 Pathologist: Sidney Wright MD Specimen: Plaque ARTERY, RIGHT EMERALD, ENDARTERECTOMY:CALCIFIC ATHEROSCLEROTIC PLAQUE WITH EROSION AND ATTACHED ORGANIZING THROMBUS Signing Pathologist Direct Phone Line: [phone] signed by Sidney Wright MDon 02/09/2018 at 4:28 [id number]; [id number] femoral artery plaqueRight femoral artery plaqueThe specimen is received in a formalin-filled container and labeled with the patient's information and labeled "right femoral artery plaque and consists of two calcified fragments of tissue both measuring 2 cm in length ranging in diameter from 0.6 to 1 cm and separate segment of hemorrhagic calcified tissue measuring 2.5 x 1.5 x 1 cm in aggregate. Regional Education Coordinator sections are submitted A1 for decalcification. CG/pl [id number] 06:08:00 Test Item Value Reference Range Comments PHOSPHORUS (BEAKER) (test ecvk=384) 2.2 mg/dL 2.3-4.7 [id number] 06:08:00 Test Item Value Reference Range Comments MAGNESIUM (BEAKER) (test wxpm=708) 2.1 mg/dL 1.6-2.6 BASIC METABOLIC [id number] 06:08:00 Test Item Value Reference Range Comments SODIUM (BEAKER) (test 131 meq/L 136-145 nlsb=076) POTASSIUM (BEAKER) (test 3.5 meq/L 3.5-5.1 vimt=463) CHLORIDE (BEAKER) (test 101 meq/L 98-107 dsir=841) CO2 (BEAKER) (test 26 meq/L 22-29 ooiv=041) BLOOD UREA NITROGEN 12 mg/dL 7-21 (BEAKER) (test tmir=710) CREATININE (BEAKER) (test 0.95 mg/dL 0.57-1.25 aviu=540) GLUCOSE RANDOM (BEAKER) 96 mg/dL 70-105 (test avza=860) CALCIUM (BEAKER) (test 8.4 mg/dL 8.4-10.2 xfjc=081) EGFR (BEAKER) (test 77 mL/min/1.73 sq m ESTIMATED GFR IS NOT aamr=1297) ACCURATE CREATININE CLEARANCE IN PREDICTING GLOMERULAR FILTRATION RATE. ESTIMATED GFR IS NOT APPLICABLE FOR DIALYSIS PATIENTS. CBC (HEMOGRAM ONLY)2018-02-05 05:30:00 Test Item Value Reference Range Comments WHITE BLOOD CELL COUNT (BEAKER) (test rahl=031) 6.5 K/ L 3.5-10.5 RED BLOOD CELL COUNT (BEAKER) (test pixi=143) 3.24 M/ L 4.63-6.08 HEMOGLOBIN (BEAKER) (test rlnd=406) 8.5 GM/DL 13.7-17.5 HEMATOCRIT (BEAKER) (test ornz=499) 27.4 % 40.1-51.0 MEAN CORPUSCULAR VOLUME (BEAKER) (test mrqs=777) 84.6 fL 79.0-92.2 MEAN CORPUSCULAR HEMOGLOBIN (BEAKER) (test 26.2 pg 25.7-32.2 fbmf=944) MEAN CORPUSCULAR HEMOGLOBIN CONC (BEAKER) (test 31.0 GM/DL 32.3-36.5 ozvo=548) RED CELL DISTRIBUTION WIDTH (BEAKER) (test 18.4 % 11.6-14.4 jtvl=481) PLATELET COUNT (BEAKER) (test fcmi=700) 127 K/CU MM 150-450 MEAN PLATELET VOLUME (BEAKER) (test qzad=311) 9.8 fL 9.4-12.4 NUCLEATED RED BLOOD CELLS (BEAKER) (test 0 /100 WBC 0-0 dvht=539) HEMOGLOBIN AND [id number] 11:55:00 Test Item Value Reference Range Comments HEMOGLOBIN (BEAKER) (test kpcv=440) 8.4 GM/DL 13.7-17.5 HEMATOCRIT (BEAKER) (test gcyd=668) 28.9 % 40.1-51.0 [id number] 04:57:00 Test Item Value Reference Range Comments PHOSPHORUS (BEAKER) (test tiit=024) 2.5 mg/dL 2.3-4.7 [id number] 04:57:00 Test Item Value Reference Range Comments MAGNESIUM (BEAKER) (test iwuh=506) 1.7 mg/dL 1.6-2.6 BASIC METABOLIC [id number] 04:57:00 Test Item Value Reference Range Comments SODIUM (BEAKER) (test 131 meq/L 136-145 hbze=251) POTASSIUM (BEAKER) (test 3.9 meq/L 3.5-5.1 ibrg=018) CHLORIDE (BEAKER) (test 102 meq/L 98-107 szjw=082) CO2 (BEAKER) (test 25 meq/L 22-29 jeah=718) BLOOD UREA NITROGEN 9 mg/dL 7-21 (BEAKER) (test fsgu=961) CREATININE (BEAKER) (test 0.85 mg/dL 0.57-1.25 epjw=492) GLUCOSE RANDOM (BEAKER) 106 mg/dL 70-105 (test hkhy=756) CALCIUM (BEAKER) (test 8.2 mg/dL 8.4-10.2 sfsv=360) EGFR (BEAKER) (test 88 mL/min/1.73 sq m ESTIMATED GFR IS NOT skpe=8820) ACCURATE CREATININE CLEARANCE IN PREDICTING GLOMERULAR FILTRATION RATE. ESTIMATED GFR IS NOT APPLICABLE FOR DIALYSIS PATIENTS. CBC (HEMOGRAM ONLY)2018-02-04 04:35:00 Test Item Value Reference Range Comments WHITE BLOOD CELL COUNT (BEAKER) (test pmyd=563) 9.4 K/ L 3.5-10.5 RED BLOOD CELL COUNT (BEAKER) (test wqxt=061) 3.15 M/ L 4.63-6.08 HEMOGLOBIN (BEAKER) (test sqbq=379) 8.1 GM/DL 13.7-17.5 HEMATOCRIT (BEAKER) (test nwcr=311) 25.5 % 40.1-51.0 MEAN CORPUSCULAR VOLUME (BEAKER) (test hfvz=971) 81.0 fL 79.0-92.2 MEAN CORPUSCULAR HEMOGLOBIN (BEAKER) (test 25.7 pg 25.7-32.2 scum=975) MEAN CORPUSCULAR HEMOGLOBIN CONC (BEAKER) (test 31.8 GM/DL 32.3-36.5 dllg=081) RED CELL DISTRIBUTION WIDTH (BEAKER) (test 18.2 % 11.6-14.4 rzeg=599) PLATELET COUNT (BEAKER) (test xcfm=767) 125 K/CU MM 150-450 MEAN PLATELET VOLUME (BEAKER) (test hsdz=828) 10.1 fL 9.4-12.4 NUCLEATED RED BLOOD CELLS (BEAKER) (test 0 /100 WBC 0-0 boob=070) CBC W/PLT COUNT & AUTO [id number] 15:56:00 Test Item Value Reference Range Comments WHITE BLOOD CELL COUNT (BEAKER) (test dxjn=538) 13.1 K/ L 3.5-10.5 RED BLOOD CELL COUNT (BEAKER) (test fgpe=703) 4.01 M/ L 4.63-6.08 HEMOGLOBIN (BEAKER) (test jjnu=584) 10.2 GM/DL 13.7-17.5 HEMATOCRIT (BEAKER) (test pula=802) 32.3 % 40.1-51.0 MEAN CORPUSCULAR VOLUME (BEAKER) (test lyxl=275) 80.5 fL 79.0-92.2 MEAN CORPUSCULAR HEMOGLOBIN (BEAKER) (test 25.4 pg 25.7-32.2 qznu=202) MEAN CORPUSCULAR HEMOGLOBIN CONC (BEAKER) (test 31.6 GM/DL 32.3-36.5 awap=593) RED CELL DISTRIBUTION WIDTH (BEAKER) (test 18.1 % 11.6-14.4 ajbd=695) PLATELET COUNT (BEAKER) (test tyux=732) 162 K/CU MM 150-450 MEAN PLATELET VOLUME (BEAKER) (test opvk=395) 10.3 fL 9.4-12.4 NUCLEATED RED BLOOD CELLS (BEAKER) (test 0 /100 WBC 0-0 gmpp=461) NEUTROPHILS RELATIVE PERCENT (BEAKER) (test 86 % dlvq=241) LYMPHOCYTES RELATIVE PERCENT (BEAKER) (test 5 % uffn=654) MONOCYTES RELATIVE PERCENT (BEAKER) (test 7 % jfli=925) EOSINOPHILS RELATIVE PERCENT (BEAKER) (test 0 % krtc=530) BASOPHILS RELATIVE PERCENT (BEAKER) (test 0 % cljx=601) NEUTROPHILS ABSOLUTE COUNT (BEAKER) (test 11.26 K/ L 1.78-5.38 etgb=094) LYMPHOCYTES ABSOLUTE COUNT (BEAKER) (test 0.70 K/ L 1.32-3.57 mbvq=013) MONOCYTES ABSOLUTE COUNT (BEAKER) (test 0.95 K/ L 0.30-0.82 sxvp=388) EOSINOPHILS ABSOLUTE COUNT (BEAKER) (test 0.00 K/ L 0.04-0.54 uqng=167) BASOPHILS ABSOLUTE COUNT (BEAKER) (test 0.04 K/ L 0.01-0.08 xznk=071) IMMATURE GRANULOCYTES-RELATIVE PERCENT (BEAKER) 1 % 0-1 (test nhot=9134) COMPREHENSIVE METABOLIC [id number] 05:49:00 Test Item Value Reference Range Comments TOTAL PROTEIN (BEAKER) 5.7 gm/dL 6.0-8.3 (test ogcy=754) ALBUMIN (BEAKER) (test 3.3 g/dL 3.5-5.0 yjik=4239) ALKALINE PHOSPHATASE 133 U/L 40-150 (BEAKER) (test qrvi=889) BILIRUBIN TOTAL (BEAKER) 0.8 mg/dL 0.2-1.2 (test xkpt=394) SODIUM (BEAKER) (test 134 meq/L 136-145 zfes=795) POTASSIUM (BEAKER) (test 4.1 meq/L 3.5-5.1 xmpx=756) CHLORIDE (BEAKER) (test 106 meq/L 98-107 vdqn=511) CO2 (BEAKER) (test 19 meq/L 22-29 hsrw=041) BLOOD UREA NITROGEN 6 mg/dL 7-21 (BEAKER) (test iqdp=741) CREATININE (BEAKER) (test 0.88 mg/dL 0.57-1.25 rtnk=109) GLUCOSE RANDOM (BEAKER) 163 mg/dL 70-105 (test njpb=222) CALCIUM (BEAKER) (test 8.3 mg/dL 8.4-10.2 ninl=707) AST (SGOT) (BEAKER) (test 12 U/L 5-34 wadr=155) ALT (SGPT) (BEAKER) (test < U/L 6-55 rxju=267) EGFR (BEAKER) (test 85 mL/min/1.73 sq m ESTIMATED GFR IS NOT smdc=5129) ACCURATE CREATININE CLEARANCE IN PREDICTING GLOMERULAR FILTRATION RATE. ESTIMATED GFR IS NOT APPLICABLE FOR DIALYSIS PATIENTS. [id number] 05:48:00 Test Item Value Reference Range Comments PHOSPHORUS (BEAKER) (test hzht=856) 2.9 mg/dL 2.3-4.7 [id number] 05:48:00 Test Item Value Reference Range Comments MAGNESIUM (BEAKER) (test xexy=169) 1.7 mg/dL 1.6-2.6 CBC W/PLT COUNT & AUTO [id number] 04:20:00 Test Item Value Reference Range Comments WHITE BLOOD CELL COUNT (BEAKER) (test rtdi=153) 15.4 K/ L 3.5-10.5 RED BLOOD CELL COUNT (BEAKER) (test snwg=929) 4.13 M/ L 4.63-6.08 HEMOGLOBIN (BEAKER) (test ebhp=464) 10.7 GM/DL 13.7-17.5 HEMATOCRIT (BEAKER) (test imjw=522) 34.3 % 40.1-51.0 MEAN CORPUSCULAR VOLUME (BEAKER) (test pxao=884) 83.1 fL 79.0-92.2 MEAN CORPUSCULAR HEMOGLOBIN (BEAKER) (test 25.9 pg 25.7-32.2 wawe=884) MEAN CORPUSCULAR HEMOGLOBIN CONC (BEAKER) (test 31.2 GM/DL 32.3-36.5 cgva=333) RED CELL DISTRIBUTION WIDTH (BEAKER) (test 17.9 % 11.6-14.4 lrqz=044) PLATELET COUNT (BEAKER) (test nmjj=748) 33 K/CU MM 150-450 MEAN PLATELET VOLUME (BEAKER) (test jdbb=318) 10.0 fL 9.4-12.4 NUCLEATED RED BLOOD CELLS (BEAKER) (test 0 /100 WBC 0-0 rdsr=483) NEUTROPHILS RELATIVE PERCENT (BEAKER) (test 91 % eqyw=400) LYMPHOCYTES RELATIVE PERCENT (BEAKER) (test 3 % boxz=721) MONOCYTES RELATIVE PERCENT (BEAKER) (test 4 % eubr=359) EOSINOPHILS RELATIVE PERCENT (BEAKER) (test 0 % davt=226) BASOPHILS RELATIVE PERCENT (BEAKER) (test 0 % htoe=640) NEUTROPHILS ABSOLUTE COUNT (BEAKER) (test 14.01 K/ L 1.78-5.38 rnmg=773) LYMPHOCYTES ABSOLUTE COUNT (BEAKER) (test 0.46 K/ L 1.32-3.57 qoyt=979) MONOCYTES ABSOLUTE COUNT (BEAKER) (test isxf=676) 0.64 K/ L 0.30-0.82 EOSINOPHILS ABSOLUTE COUNT (BEAKER) (test 0.01 K/ L 0.04-0.54 zyxm=856) BASOPHILS ABSOLUTE COUNT (BEAKER) (test ikai=743) 0.05 K/ L 0.01-0.08 IMMATURE GRANULOCYTES-RELATIVE PERCENT (BEAKER) 1 % 0-1 (test xlut=5994) VANCOMYCIN LEVEL, [id number] 23:58:00 Test Item Value Reference Range Comments VANCOMYCIN TROUGH (BEAKER) (test flow=977) < ug/mL 10.0-20.0 PROTHROMBIN [id number] 23:27:00 Test Item Value Reference Range Comments PROTIME (BEAKER) (test klmj=287) 15.6 seconds 11.7-14.7 INR (BEAKER) (test dkkl=772) 1.2 <=5.9 RECOMMENDED COUMADIN/WARFARIN INR THERAPY RANGESSTANDARD DOSE: 2.0 - 3.0 Includes: PROPHYLAXIS forvenous thrombosis, systemic embolization; TREATMENT for venous thrombosis and/or pulmonary embolus.HIGH RISK: Target INR is 2.5-3.5 for patients with mechanical heart valves.[id number] 23:27:00 Test Item Value Reference Range Comments FIBRINOGEN LEVEL (BEAKER) (test xlzi=867) 276 mg/dl 225-434 [id number] 23:27:00 Test Item Value Reference Range Comments PARTIAL THROMBOPLASTIN TIME (BEAKER) (test 29.8 seconds 22.5-36.0 tpfe=490) CBC W/PLT COUNT & AUTO [id number] 23:22:00 Test Item Value Reference Range Comments WHITE BLOOD CELL COUNT (BEAKER) (test irsi=149) 18.8 K/ L 3.5-10.5 RED BLOOD CELL COUNT (BEAKER) (test npgz=603) 4.49 M/ L 4.63-6.08 HEMOGLOBIN (BEAKER) (test ijnq=051) 11.3 GM/DL 13.7-17.5 HEMATOCRIT (BEAKER) (test yerw=418) 37.7 % 40.1-51.0 MEAN CORPUSCULAR VOLUME (BEAKER) (test ktdv=687) 84.0 fL 79.0-92.2 MEAN CORPUSCULAR HEMOGLOBIN (BEAKER) (test 25.2 pg 25.7-32.2 taph=315) MEAN CORPUSCULAR HEMOGLOBIN CONC (BEAKER) (test 30.0 GM/DL 32.3-36.5 muwj=117) RED CELL DISTRIBUTION WIDTH (BEAKER) (test 17.5 % 11.6-14.4 ayet=119) PLATELET COUNT (BEAKER) (test jvez=658) 196 K/CU MM 150-450 MEAN PLATELET VOLUME (BEAKER) (test ohuj=821) 10.0 fL 9.4-12.4 NUCLEATED RED BLOOD CELLS (BEAKER) (test 0 /100 WBC 0-0 btun=142) NEUTROPHILS RELATIVE PERCENT (BEAKER) (test 89 % crpw=880) LYMPHOCYTES RELATIVE PERCENT (BEAKER) (test 3 % qhpp=683) MONOCYTES RELATIVE PERCENT (BEAKER) (test 6 % njdv=114) EOSINOPHILS RELATIVE PERCENT (BEAKER) (test 0 % qltn=002) BASOPHILS RELATIVE PERCENT (BEAKER) (test 0 % buaa=376) NEUTROPHILS ABSOLUTE COUNT (BEAKER) (test 16.79 K/ L 1.78-5.38 bzqm=613) LYMPHOCYTES ABSOLUTE COUNT (BEAKER) (test 0.60 K/ L 1.32-3.57 hfai=452) MONOCYTES ABSOLUTE COUNT (BEAKER) (test 1.17 K/ L 0.30-0.82 nubw=277) EOSINOPHILS ABSOLUTE COUNT (BEAKER) (test 0.02 K/ L 0.04-0.54 zhkh=231) BASOPHILS ABSOLUTE COUNT (BEAKER) (test 0.04 K/ L 0.01-0.08 kiux=288) IMMATURE GRANULOCYTES-RELATIVE PERCENT (BEAKER) 1 % 0-1 (test qekb=0814) [id number] 23:21:00 Test Item Value Reference Range Comments PHOSPHORUS (BEAKER) (test xjuk=295) 3.1 mg/dL 2.3-4.7 [id number] 23:21:00 Test Item Value Reference Range Comments MAGNESIUM (BEAKER) (test ilrz=997) 1.7 mg/dL 1.6-2.6 BASIC METABOLIC [id number] 23:21:00 Test Item Value Reference Range Comments SODIUM (BEAKER) (test 133 meq/L 136-145 suqt=792) POTASSIUM (BEAKER) (test 4.2 meq/L 3.5-5.1 yjry=909) CHLORIDE (BEAKER) (test 105 meq/L 98-107 dgup=226) CO2 (BEAKER) (test 17 meq/L 22-29 vqcd=192) BLOOD UREA NITROGEN 7 mg/dL 7-21 (BEAKER) (test atfz=250) CREATININE (BEAKER) (test 0.99 mg/dL 0.57-1.25 ylec=496) GLUCOSE RANDOM (BEAKER) 155 mg/dL 70-105 (test loth=158) CALCIUM (BEAKER) (test 8.3 mg/dL 8.4-10.2 mjud=150) EGFR (BEAKER) (test 74 mL/min/1.73 sq m ESTIMATED GFR IS NOT rkna=2749) ACCURATE CREATININE CLEARANCE IN PREDICTING GLOMERULAR FILTRATION RATE. ESTIMATED GFR IS NOT APPLICABLE FOR DIALYSIS PATIENTS. HEPATIC FUNCTION [id number] 23:21:00 Test Item Value Reference Range Comments TOTAL PROTEIN (BEAKER) (test hupv=227) 5.8 gm/dL 6.0-8.3 ALBUMIN (BEAKER) (test ewgx=1526) 3.5 g/dL 3.5-5.0 BILIRUBIN TOTAL (BEAKER) (test ascg=180) 1.5 mg/dL 0.2-1.2 BILIRUBIN DIRECT (BEAKER) (test elbq=132) 0.8 mg/dL 0.1-0.5 ALKALINE PHOSPHATASE (BEAKER) (test vyel=457) 142 U/L 40-150 AST (SGOT) (BEAKER) (test pnzw=170) 12 U/L 5-34 ALT (SGPT) (BEAKER) (test mnfx=464) 7 U/L 6-55 LACTIC ACID, ARTERIAL, WHOLE [id number] 23:15:00 Test Item Value Reference Range Comments LACTATE BLOOD ARTERIAL (2) (BEAKER) (test 1.7 mmol/L 0.5-2.2 sfha=2531) Effective 12/12/2015: Units/Reference Range ChangeNew: 0.5-2.2 mmol/L Previous: 5 -20 mg/dLRAD, CHEST, 1 VIEW, NON [id number] 23:12:00Reason for exam:->s/ p cardiac surgeryShould this [...] MDReport Verified Date/Time: 02/02/2018 23:12:37 Reading Location: [address] Consult Reading Room Electronicallysigned by: DENZEL LANGLEY MD on 02/02/2018 11:12 PMHEMOGLOBIN AND [id number] 23:06:00 Test Item Value Reference Range Comments HEMOGLOBIN (BEAKER) (test mpej=786) 11.3 GM/DL 13.7-17.5 HEMATOCRIT (BEAKER) (test fstx=599) 37.7 % 40.1-51.0 CALCIUM, [id number] 22:57:00 Test Item Value Reference Range Comments CALCIUM IONIZED (BEAKER) (test iufz=448) 1.02 mmol/L 1.12-1.27 PH, BLOOD (BEAKER) (test ybuh=1093) 7.38 OXYGEN SATURATION, [id number] 22:56:00 Test Item Value Reference Range Comments O2 SATURATION (MEASURED) (BEAKER) (test ntej=8304) 72.2 % PROTHROMBIN TIME/[id number] 19:20:00 Test Item Value Reference Range Comments PROTIME (BEAKER) (test ltmq=063) 17.6 seconds 11.7-14.7 INR (BEAKER) (test hwtx=060) 1.5 <=5.9 RECOMMENDED COUMADIN/WARFARIN INR THERAPY RANGESSTANDARD DOSE: 2.0 - 3.0 Includes: PROPHYLAXIS forvenous thrombosis, systemic embolization; TREATMENT for venous thrombosis and/or pulmonary embolus.HIGH RISK: Target INR is 2.5-3.5 for patients with mechanical heart valves.[id number] 19:20:00 Test Item Value Reference Range Comments FIBRINOGEN LEVEL (BEAKER) (test nmnn=481) 240 mg/dl 225-434 [id number] 19:20:00 Test Item Value Reference Range Comments PARTIAL THROMBOPLASTIN TIME (BEAKER) (test 33.3 seconds 22.5-36.0 dbaj=446) PLATELET [id number] 19:00:00 Test Item Value Reference Range Comments PLATELET COUNT (BEAKER) (test rpmm=255) 149 K/CU MM 150-450 POTASSIUM-STAT [id number] 18:54:00 Test Item Value Reference Range Comments POTASSIUM (BEAKER) (test ojjt=829) 4.2 meq/L 3.6-5.5 HEMOGLOBIN-STAT [id number] 18:54:00 Test Item Value Reference Range Comments HEMOGLOBIN (BEAKER) (test okav=129) 9.9 g/dL 13.0-16.8 HEMATOCRIT-STAT [id number] 18:54:00 Test Item Value Reference Range Comments HEMATOCRIT (BEAKER) (test mtyl=575) 29.0 % 40.0-50.0 BLOOD GAS, [id number] 18:54:00 Test Item Value Reference Range Comments PH ARTERIAL (BEAKER) (test aqaj=885) 7.37 7.35-7.45 PCO2 ARTERIAL (BEAKER) (test mxhc=389) 39 mmHg 35-45 PO2 ARTERIAL (BEAKER) (test yiug=995) 229 mmHg 80-90 O2 SATURATION ARTERIAL (BEAKER) (test lobm=371) 99.5 % 96.0-97.0 HCO3 ARTERIAL (BEAKER) (test amlj=525) 22 mmol/L 21-29 BASE EXCESS ARTERIAL (BEAKER) (test ftui=829) -3.4 mmol/L -2.0-3.0 PATIENT TEMPERATURE (BEAKER) (test mqct=7374) 37.0 C SODIUM NA-STAT [id number] 18:54:00 Test Item Value Reference Range Comments SODIUM (BEAKER) (test efyh=044) 133 meq/L 135-148 GLUCOSE-STAT [id number] 18:54:00 Test Item Value Reference Range Comments GLUCOSE RANDOM (BEAKER) (test vlyy=217) 134 mg/dL 70-110 HGB/HCT (H&H) - STAT [id number] 18:54:00 Test Item Value Reference Range Comments HEMOGLOBIN (BEAKER) (test akdb=989) 9.9 GM/DL 13.0-16.8 HEMATOCRIT (BEAKER) (test ndwb=915) 29.0 % 40.0-50.0 CALCIUM, [id number] 18:54:00 Test Item Value Reference Range Comments CALCIUM IONIZED (BEAKER) (test eako=842) 1.03 mmol/L 1.12-1.27 PH, BLOOD (BEAKER) (test bdke=2381) 7.37 CALCIUM, [id number] 18:13:00 Test Item Value Reference Range Comments CALCIUM IONIZED (BEAKER) (test soau=371) 1.02 mmol/L 1.12-1.27 PH, BLOOD (BEAKER) (test oxqd=7325) 7.36 [id number] 17:42:00 Test Item Value Reference Range Comments ACTIVATED CLOTTING TIME 279 sec TESTED AT [facility] [address] (BEAKER) (test gfrl=204) [place] [address] [id number] 17:42:00 Test Item Value Reference Range Comments ACTIVATED CLOTTING TIME 224 sec TESTED AT [facility] [address] (BEAKER) (test nuzp=060) [place] [address] [id number] 17:42:00 Test Item Value Reference Range Comments ACTIVATED CLOTTING TIME 158 sec TESTED AT [facility] [address] (BEAKER) (test jaxk=909) [place] [address] HGB/HCT (H&H) - STAT [id number] 16:30:00 Test Item Value Reference Range Comments HEMOGLOBIN (BEAKER) (test gjyt=942) 9.9 GM/DL 13.0-16.8 HEMATOCRIT (BEAKER) (test kcsf=661) 29.0 % 40.0-50.0 POTASSIUM-STAT [id number] 16:30:00 Test Item Value Reference Range Comments POTASSIUM (BEAKER) (test dwvf=597) 3.7 meq/L 3.6-5.5 SODIUM NA-STAT [id number] 16:30:00 Test Item Value Reference Range Comments SODIUM (BEAKER) (test yake=183) 134 meq/L 135-148 GLUCOSE-STAT [id number] 16:30:00 Test Item Value Reference Range Comments GLUCOSE RANDOM (BEAKER) (test gfae=334) 105 mg/dL 70-110 [id number] 16:17:00 Test Item Value Reference Range Comments ACTIVATED CLOTTING TIME 301 sec TESTED AT [facility] [address] (BEAKER) (test yszz=584) [place] [id number] BLOOD GAS, [id number] 16:16:00 Test Item Value Reference Range Comments PH ARTERIAL (BEAKER) (test vldv=954) 7.42 7.35-7.45 PCO2 ARTERIAL (BEAKER) (test trkh=155) 40 mmHg 35-45 PO2 ARTERIAL (BEAKER) (test yntv=671) 205 mmHg 80-90 O2 SATURATION ARTERIAL (BEAKER) (test nzxt=845) 99.4 % 96.0-97.0 HCO3 ARTERIAL (BEAKER) (test mmri=471) 25 mmol/L 21-29 BASE EXCESS ARTERIAL (BEAKER) (test coeb=178) 0.8 mmol/L -2.0-3.0 PATIENT TEMPERATURE (BEAKER) (test wxko=8995) 37.0 C CALCIUM, [id number] 16:11:00 Test Item Value Reference Range Comments CALCIUM IONIZED (BEAKER) (test ytpt=626) 1.09 mmol/L 1.12-1.27 PH, BLOOD (BEAKER) (test uema=7535) 7.42 MR, MRA, EXTREMITY, LOWER, WITHOUT FOLLOW, WITH [id number] 17:43: 00Bilateral extremitiesNando Hdz MD [facility]ITALMukesh Hdz MD [facility] at [facility] CITYlinical Professor [facility]Co T[employer] of [employer] Services at [facility]/PIOTRLivingston Hospital And Health Serviceskayode of Peripheral Vascular Medicine at [address] [place], [place] [email or web address] REPORT MRA of the lower [...] reconstruction was performed by an independent workstation ([employer]). Please refer to the contrast sheetscanned in [...] CT scan. The proximal abdominal aorta is [place]. The celiac axis, SMA are patent with [...] coil embolisation procedure as per EPIC. The [place] left external iliac artery and the left [...] centimeters of the left SFA could be [place]. However, there is likely a left femoral [...] posterior tibial artery. In the right, the [place] right SFA is seen to be occluded. [...] though thereafter, it is occluded. 4. The [place] left SFA is likely occluded and a left femoral to distal popliteal bypass graft is identified that is patent with no proximal or distal anastomotic stenosis. Essentially three-vessel runoff is seen in the left lower extremity. 5. In the right, the [place] right SFA is occluded. It appears patient [...] MDReport Verified Date/Time: 01/28/2018 17:43:09 Reading Location: [place] [address] Cardiology MRI [facility] METABOLIC [id number] 07 :36:00 Test Item Value Reference Range Comments SODIUM (BEAKER) (test 135 meq/L 136-145 dmzx=128) POTASSIUM (BEAKER) (test 4.3 meq/L 3.5-5.1 etxo=674) CHLORIDE (BEAKER) (test 103 meq/L 98-107 kybz=305) CO2 (BEAKER) (test 25 meq/L 22-29 fzsm=078) BLOOD UREA NITROGEN 8 mg/dL 7-21 (BEAKER) (test wfce=568) CREATININE (BEAKER) (test 1.09 mg/dL 0.57-1.25 odrj=404) GLUCOSE RANDOM (BEAKER) 92 mg/dL 70-105 (test pitg=777) CALCIUM (BEAKER) (test 8.6 mg/dL 8.4-10.2 fscp=855) EGFR (BEAKER) (test 66 mL/min/1.73 sq m ESTIMATED GFR IS NOT hqct=7089) ACCURATE CREATININE CLEARANCE IN PREDICTING GLOMERULAR FILTRATION RATE. ESTIMATED GFR IS NOT APPLICABLE FOR DIALYSIS PATIENTS. CBC (HEMOGRAM ONLY)2018-01-28 07:17:00 Test Item Value Reference Range Comments WHITE BLOOD CELL COUNT (BEAKER) (test etus=320) 5.4 K/ L 3.5-10.5 RED BLOOD CELL COUNT (BEAKER) (test hzvk=534) 3.83 M/ L 4.63-6.08 HEMOGLOBIN (BEAKER) (test bdsb=804) 9.6 GM/DL 13.7-17.5 HEMATOCRIT (BEAKER) (test kyvo=411) 31.1 % 40.1-51.0 MEAN CORPUSCULAR VOLUME (BEAKER) (test bxwl=347) 81.2 fL 79.0-92.2 MEAN CORPUSCULAR HEMOGLOBIN (BEAKER) (test 25.1 pg 25.7-32.2 rqbb=678) MEAN CORPUSCULAR HEMOGLOBIN CONC (BEAKER) (test 30.9 GM/DL 32.3-36.5 ewaz=220) RED CELL DISTRIBUTION WIDTH (BEAKER) (test 18.7 % 11.6-14.4 evdl=198) PLATELET COUNT (BEAKER) (test qpla=926) 167 K/CU MM 150-450 MEAN PLATELET VOLUME (BEAKER) (test dgbi=427) 9.4 fL 9.4-12.4 NUCLEATED RED BLOOD CELLS (BEAKER) (test 0 /100 WBC 0-0 fqug=080) PROTHROMBIN [id number] 14:15:00 Test Item Value Reference Range Comments PROTIME (BEAKER) (test fcku=648) 14.8 seconds 11.7-14.7 INR (BEAKER) (test ksuk=906) 1.2 <=5.9 RECOMMENDED COUMADIN/WARFARIN INR THERAPY RANGESSTANDARD DOSE: 2.0 - 3.0 Includes: PROPHYLAXIS forvenous thrombosis, systemic embolization; TREATMENT for venous thrombosis and/or pulmonary embolus.HIGH RISK: Target INR is 2.5-3.5 for patients with mechanical heart valves.Within 24 hours, if on CoumadinBASIC METABOLIC [id number] 06:41:00 Test Item Value Reference Range Comments SODIUM (BEAKER) (test 131 meq/L 136-145 llqk=676) POTASSIUM (BEAKER) (test 3.8 meq/L 3.5-5.1 mnap=571) CHLORIDE (BEAKER) (test 96 meq/L 98-107 umfp=564) CO2 (BEAKER) (test 28 meq/L 22-29 utdw=834) BLOOD UREA NITROGEN 9 mg/dL 7-21 (BEAKER) (test dlbl=685) CREATININE (BEAKER) (test 0.95 mg/dL 0.57-1.25 qpxu=768) GLUCOSE RANDOM (BEAKER) 110 mg/dL 70-105 (test xecf=770) CALCIUM (BEAKER) (test 8.4 mg/dL 8.4-10.2 bwxd=318) EGFR (BEAKER) (test 77 mL/min/1.73 sq m ESTIMATED GFR IS NOT phwd=3994) ACCURATE CREATININE CLEARANCE IN PREDICTING GLOMERULAR FILTRATION RATE. ESTIMATED GFR IS NOT APPLICABLE FOR DIALYSIS PATIENTS. CBC (HEMOGRAM ONLY)2017-12-10 05:53:00 Test Item Value Reference Range Comments WHITE BLOOD CELL COUNT (BEAKER) (test eluu=544) 8.3 K/ L 3.5-10.5 RED BLOOD CELL COUNT (BEAKER) (test fged=116) 3.40 M/ L 4.63-6.08 HEMOGLOBIN (BEAKER) (test aaqg=659) 8.3 GM/DL 13.7-17.5 HEMATOCRIT (BEAKER) (test jrkf=308) 27.9 % 40.1-51.0 MEAN CORPUSCULAR VOLUME (BEAKER) (test zbeq=993) 82.1 fL 79.0-92.2 MEAN CORPUSCULAR HEMOGLOBIN (BEAKER) (test 24.4 pg 25.7-32.2 dxgu=945) MEAN CORPUSCULAR HEMOGLOBIN CONC (BEAKER) (test 29.7 GM/DL 32.3-36.5 ccbk=583) RED CELL DISTRIBUTION WIDTH (BEAKER) (test 20.0 % 11.6-14.4 ejvd=720) PLATELET COUNT (BEAKER) (test nvbz=699) 276 K/CU MM 150-450 MEAN PLATELET VOLUME (BEAKER) (test eluj=308) 10.2 fL 9.4-12.4 NUCLEATED RED BLOOD CELLS (BEAKER) (test 0 /100 WBC 0-0 rgnj=704) BLOOD GAS, [id number] 10:39:00 Test Item Value Reference Range Comments PH ARTERIAL (BEAKER) (test mybu=824) 7.33 7.35-7.45 PCO2 ARTERIAL (BEAKER) (test xctj=711) 48 mmHg 35-45 PO2 ARTERIAL (BEAKER) (test mxzz=265) 198 mmHg 80-90 O2 SATURATION ARTERIAL (BEAKER) (test jcac=465) 99.3 % 96.0-97.0 HCO3 ARTERIAL (BEAKER) (test wqgu=509) 25 mmol/L 21-29 BASE EXCESS ARTERIAL (BEAKER) (test yvxo=484) -1.5 mmol/L -2.0-3.0 PATIENT TEMPERATURE (BEAKER) (test mctz=0275) 36.2 C FIO2 (BEAKER) (test evml=0272) 46.0 % SODIUM NA-STAT [id number] 10:39:00 Test Item Value Reference Range Comments SODIUM (BEAKER) (test xbuc=965) 131 meq/L 135-148 POTASSIUM-STAT [id number] 10:39:00 Test Item Value Reference Range Comments POTASSIUM (BEAKER) (test smhc=423) 3.1 meq/L 3.6-5.5 GLUCOSE-STAT [id number] 10:39:00 Test Item Value Reference Range Comments GLUCOSE RANDOM (BEAKER) (test gcay=400) 121 mg/dL 70-110 HGB/HCT (H&H) - STAT [id number] 10:39:00 Test Item Value Reference Range Comments HEMOGLOBIN (BEAKER) (test hmbq=370) 8.1 g/dL 13.0-16.8 HEMATOCRIT (BEAKER) (test naha=741) 24.0 % 40.0-50.0 [id number] 10:10:00 Test Item Value Reference Range Comments ACTIVATED CLOTTING TIME 224 sec TESTED AT [facility] [address] [facility] (test okeh=930) [facility] [address] CBC (HEMOGRAM ONLY)2017-12-05 06:51:00 Test Item Value Reference Range Comments WHITE BLOOD CELL COUNT (BEAKER) (test psgl=503) 6.4 K/ L 3.5-10.5 RED BLOOD CELL COUNT (BEAKER) (test lzgl=500) 3.63 M/ L 4.63-6.08 HEMOGLOBIN (BEAKER) (test jyio=192) 9.0 GM/DL 13.7-17.5 HEMATOCRIT (BEAKER) (test pxwg=959) 30.4 % 40.1-51.0 MEAN CORPUSCULAR VOLUME (BEAKER) (test kypj=687) 83.7 fL 79.0-92.2 MEAN CORPUSCULAR HEMOGLOBIN (BEAKER) (test 24.8 pg 25.7-32.2 snxl=066) MEAN CORPUSCULAR HEMOGLOBIN CONC (BEAKER) (test 29.6 GM/DL 32.3-36.5 vkig=639) RED CELL DISTRIBUTION WIDTH (BEAKER) (test 20.3 % 11.6-14.4 nszo=457) PLATELET COUNT (BEAKER) (test uqer=475) 275 K/CU MM 150-450 MEAN PLATELET VOLUME (BEAKER) (test xpec=327) 9.8 fL 9.4-12.4 NUCLEATED RED BLOOD CELLS (BEAKER) (test 0 /100 WBC 0-0 lilw=515) BASIC METABOLIC [id number] 06:44:00 Test Item Value Reference Range Comments SODIUM (BEAKER) (test 134 meq/L 136-145 axyn=577) POTASSIUM (BEAKER) (test 4.1 meq/L 3.5-5.1 mzrm=464) CHLORIDE (BEAKER) (test 102 meq/L 98-107 xkbk=198) CO2 (BEAKER) (test 24 meq/L 22-29 vktf=809) BLOOD UREA NITROGEN 9 mg/dL 7-21 (BEAKER) (test vooi=953) CREATININE (BEAKER) (test 1.01 mg/dL 0.57-1.25 mclu=845) GLUCOSE RANDOM (BEAKER) 93 mg/dL 70-105 (test ifhf=167) CALCIUM (BEAKER) (test 8.7 mg/dL 8.4-10.2 asay=759) EGFR (BEAKER) (test 72 mL/min/1.73 sq m ESTIMATED GFR IS NOT ajjg=3811) ACCURATE CREATININE CLEARANCE IN PREDICTING GLOMERULAR FILTRATION RATE. ESTIMATED GFR IS NOT APPLICABLE FOR DIALYSIS PATIENTS. [id number] 12:39:00 Test Item Value Reference Range Comments ACTIVATED CLOTTING TIME 136 sec TESTED AT [address] ([facility]) (test txob=720) [place] [address] [id number] 11:51:00 Test Item Value Reference Range Comments ACTIVATED CLOTTING TIME 147 sec TESTED AT [address] ([facility]) (test fkwh=472) [place] [address] [id number] 09:21:00 Test Item Value Reference Range Comments ACTIVATED CLOTTING TIME 213 sec TESTED AT [address] ([facility]) (test eoer=374) [place] [address] [id number] 08:58:00 Test Item Value Reference Range Comments ACTIVATED CLOTTING TIME 191 sec TESTED AT [address]) (test jfbz=432) [place] [address] [address], CTA [id number] 11:56:00Addendum BeginsREPORT STATUS:A Addendum: The images were reviewed with Dr. Hdz. 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 Arch vessel branching pattern is [...] 8.2 mm, respectively with mild tortuosity and wjnc-bq-sxfnzmpb calcific atherosclerosis present. Right iliac limb is [...] dictated, however, the ordering physician is the PSYCHIATRY RESIDENT SENIOR ENGINEERING TEAM LEADER of the [facility] and therefore no recommendation would be necessary. [...] An addendum will be dictated by the Railroad Car Painter Radiologist regarding the nonvascular findings. Signed: Juwan Echolsort Verified Date/Time: 11/26/2017 16:25:25 Reading Location: [place] [address] Cardiology MRI Electronically signed by: JUWAN ECHOLS M.D. on 2017 11:56 AMCT, CTA, [id number] 11:56:00Addendum BeginsREPORT STATUS:A Addendum: The images were reviewed with Dr. Hdz. There is a missing dictation, specifically, despite the aortic bypass surgery the [place] left common iliac artery is still patent with retrograde filling from the left external iliac artery, with aneurysmal dilation identified. Image 466, it measures approximately 4.3 x 4.2 cm in diameter. Some intraluminal thrombus is seen. This is the left common iliac artery. The left internal iliac artery is also patent, with calcification present. Signed: Juwan Echolsort Verified Date/Time: 11/27/2017 11:56:33 Reading Location: [place] [address] Cardiology MRIAddendum EndsAddendum BeginsREPORT STATUS:A ADDENDUM: Study [...] Adryan Barrowort Verified Date/Time: 18:03:42 Reading Location: [place] [id number] Angio Body Reading RoomAddendum EndsFINAL REPORT CT [...] takeoff of the left renal artery with hdjz-qy-aoymdmdz stenosis identified. Arch vessel branching pattern is [...] 8.2 mm, respectively with mild tortuosity and aaee-ig-ogtxemsj calcific atherosclerosis present. Right iliac limb is [...] dictated, however, the ordering physician is the PSYCHIATRY RESIDENT SENIOR ENGINEERING TEAM LEADER of the [facility] and therefore no recommendation would be necessary. [...] An addendum will be dictated by the Railroad Car Painter Radiologist regarding the nonvascular findings. Signed: Juwan Echols MDReport Verified Date/Time: 11/26/2017 16:25:25 Reading Location: [place] [address] Cardiology MRI Electronically signed by: JUWAN ECHOLS M.D. on 2017 11:56 AMB-TYPE NATRIURETIC FACTOR (BNP)2017-11-26 18:03:00 Test Item Value Reference Range Comments B-TYPE NATRIURETIC PEPTIDE (BEAKER) (test 142 pg/mL 0-100 hwrc=153) COMPREHENSIVE METABOLIC [id number] 17:56:00 Test Item Value Reference Range Comments TOTAL PROTEIN (BEAKER) 6.8 gm/dL 6.0-8.3 (test vcdb=720) ALBUMIN (BEAKER) (test 3.9 g/dL 3.5-5.0 zlct=4363) ALKALINE PHOSPHATASE 133 U/L 40-150 (BEAKER) (test wuhw=137) BILIRUBIN TOTAL (BEAKER) 0.4 mg/dL 0.2-1.2 (test dprq=673) SODIUM (BEAKER) (test 135 meq/L 136-145 tdib=628) POTASSIUM (BEAKER) (test 4.3 meq/L 3.5-5.1 zaqs=464) CHLORIDE (BEAKER) (test 99 meq/L 98-107 nszo=086) CO2 (BEAKER) (test 26 meq/L 22-29 ddjt=385) BLOOD UREA NITROGEN 6 mg/dL 7-21 (BEAKER) (test mioo=825) CREATININE (BEAKER) (test 1.14 mg/dL 0.57-1.25 caom=668) GLUCOSE RANDOM (BEAKER) 104 mg/dL 70-105 (test igkm=767) CALCIUM (BEAKER) (test 8.9 mg/dL 8.4-10.2 yvpd=138) AST (SGOT) (BEAKER) (test 12 U/L 5-34 ebkb=740) ALT (SGPT) (BEAKER) (test 7 U/L 6-55 sawe=426) EGFR (BEAKER) (test 63 mL/min/1.73 sq m ESTIMATED GFR IS NOT aaly=6761) ACCURATE CREATININE CLEARANCE IN PREDICTING GLOMERULAR FILTRATION RATE. ESTIMATED GFR IS NOT APPLICABLE FOR DIALYSIS PATIENTS. PROTHROMBIN [id number] 17:33:00 Test Item Value Reference Range Comments PROTIME (BEAKER) (test jntw=865) 16.5 seconds 11.7-14.7 INR (BEAKER) (test bvus=605) 1.3 <=5.9 RECOMMENDED COUMADIN/WARFARIN INR THERAPY RANGESSTANDARD DOSE: 2.0 - 3.0 Includes: PROPHYLAXIS forvenous thrombosis, systemic embolization; TREATMENT for venous thrombosis and/or pulmonary embolus.HIGH RISK: Target INR is 2.5-3.5 for patients with mechanical heart valves.CBC W/PLT COUNT & AUTO [id number] 17:24:00 Test Item Value Reference Range Comments WHITE BLOOD CELL COUNT (BEAKER) (test yirl=131) 7.7 K/ L 3.5-10.5 RED BLOOD CELL COUNT (BEAKER) (test ncej=145) 3.66 M/ L 4.63-6.08 HEMOGLOBIN (BEAKER) (test stot=932) 9.1 GM/DL 13.7-17.5 HEMATOCRIT (BEAKER) (test acna=755) 31.7 % 40.1-51.0 MEAN CORPUSCULAR VOLUME (BEAKER) (test tnsi=164) 86.6 fL 79.0-92.2 MEAN CORPUSCULAR HEMOGLOBIN (BEAKER) (test 24.9 pg 25.7-32.2 azdu=957) MEAN CORPUSCULAR HEMOGLOBIN CONC (BEAKER) (test 28.7 GM/DL 32.3-36.5 ysdp=234) RED CELL DISTRIBUTION WIDTH (BEAKER) (test 19.5 % 11.6-14.4 ekwz=767) PLATELET COUNT (BEAKER) (test lrvr=932) 243 K/CU MM 150-450 MEAN PLATELET VOLUME (BEAKER) (test kzab=910) 10.0 fL 9.4-12.4 NUCLEATED RED BLOOD CELLS (BEAKER) (test 0 /100 WBC 0-0 niyv=097) NEUTROPHILS RELATIVE PERCENT (BEAKER) (test 73 % cjre=484) LYMPHOCYTES RELATIVE PERCENT (BEAKER) (test 13 % jfds=991) MONOCYTES RELATIVE PERCENT (BEAKER) (test 9 % gwrf=248) EOSINOPHILS RELATIVE PERCENT (BEAKER) (test 4 % pwna=372) BASOPHILS RELATIVE PERCENT (BEAKER) (test 1 % pvyl=744) NEUTROPHILS ABSOLUTE COUNT (BEAKER) (test 5.64 K/ L 1.78-5.38 eatm=494) LYMPHOCYTES ABSOLUTE COUNT (BEAKER) (test 0.98 K/ L 1.32-3.57 izsw=947) MONOCYTES ABSOLUTE COUNT (BEAKER) (test 0.69 K/ L 0.30-0.82 fwfa=162) EOSINOPHILS ABSOLUTE COUNT (BEAKER) (test 0.30 K/ L 0.04-0.54 rtkw=452) BASOPHILS ABSOLUTE COUNT (BEAKER) (test 0.05 K/ L 0.01-0.08 roou=941) IMMATURE GRANULOCYTES-RELATIVE PERCENT (BEAKER) 0 % 0-1 (test vtdm=0816) [id number] 12:34:00 Test Item Value Reference Range Comments POC-CREATININE (BEAKER) 1.1 mg/dL 0.6-1.3 TESTED AT [facility] [address] [facility] (test vacn=5062) [facility] [address] POC-EGFR (BEAKER) (test 65 mL/min/1.73M2 kofu=0115)
--- OUTSIDE RECORDS SUMMARY | 2019-01-23 22:10 | XMS REPORT ---
[...] Start Date End Date Status Dosage Lisinopril [facility] 42871200347 40 MG Orally Once Active 1 tablet a day Results No Known Results Summary Purpose eClinicalWorks Submission
--- OUTSIDE RECORDS SUMMARY | 2019-01-23 22:10 | XMS REPORT ---
[...] Status Dosage System Date Date Amitriptyline HCl [facility] 52545169452 50 MG Orally Active 1 tablet Once a day Results No Known Results Summary Purpose eClinicalWorks Submission
--- OUTSIDE RECORDS SUMMARY | 2019-01-23 22:10 | XMS REPORT ---
[...] Date Amitriptyline HCl [facility] 89100388318 50 MG Orally Active 1 tablet Once a day Clonidine HCl [facility] 10496535424 0.1 MG Orally Active 1 tablet Twice a day at bedtime Aspir-81 [facility] 81169757257 81 MG Orally Active 1 tablet Once a day Topamax [facility] 62816161611 25 MG Orally Active 1 tablet Once a day Plavix [facility] 95272612335 75 MG Orally Active 1 tablet Once a day Lisinopril [facility] 30781697272 40 MG Orally Active 1 tablet Once a day ProAir HFA [facility] 65592857546 108 (90 Base) Active 2 puffs as MCG/ACT needed Inhalation every 6 hrs Lasix [facility] 64155050181 40 MG Orally Active 1 tablet Once a day Prilosec [facility] 30842931267 20 MG Orally Active 1 capsule Once a day Breo Ellipta [facility] 00870392048 200-25 MCG/INH Active 1 puff Inhalation Once a day Warfarin Sodium [facility] 92693433306 7.5 MG Orally Active 1 tablet Once a day Zanaflex [facility] 59383277903 4 MG Orally Active 1 tablet Three times a as needed day Primidone [facility] 98504389967 250 MG Orally Active 1 tablet Three times a day Lipitor [facility] 59372142673 10 MG Orally Active 1 tablet Once a day Norvasc [facility] 89113245640 5 MG Orally Active 1 tablet Once a day Vitamin D3 [facility] 33054201538 400 UNIT Orally Active 2 tablets Once a day Results No Known Results Summary Purpose eClinicalWorks Submission
--- OUTSIDE RECORDS SUMMARY | 2019-01-23 22:10 | XMS REPORT ---
[...] Start Date End Date Status Dosage Lipitor [facility] 37644527186 10 MG Orally Once Active 1 tablet a day Results No Known Results Summary Purpose eClinicalWorks Submission
--- OUTSIDE RECORDS SUMMARY | 2019-01-23 22:11 | XMS REPORT ---
[...] End Date Status Dosage System Date Carvedilol [facility] 10630479320 12.5 MG Orally Active as directed BID Results No Known Results Summary Purpose eClinicalWorks Submission
--- OUTSIDE RECORDS SUMMARY | 2019-01-23 22:11 | XMS REPORT ---
[...] Dosage System Date Date Breo Ellipta [facility] 23246287920 200-25 MCG/INH Active 1 puff Inhalation Once a day Carvedilol [facility] 26150105643 12.5 MG Orally Active as BID directed Aspir-81 [facility] 74969507269 81 MG Orally Active 1 tablet Once a day Prilosec [facility] 73541517856 20 MG Orally Active 1 capsule Once a day Lasix [facility] 93425566223 40 MG Orally Active 1 tablet Once a day Norvasc [facility] 39233031949 5 MG Orally Inactive 1 tablet Once a day ProAir HFA [facility] 57250670272 108 (90 Base) Active 2 puffs as MCG/ACT needed Inhalation every 6 hrs Primidone [facility] 40839173076 250 MG Orally Active 1 tablet Three times a day Zanaflex [facility] 29339771313 4 MG Orally Active 1 tablet Three times a as needed day Vitamin D3 [facility] 61743839114 400 UNIT Orally Active 2 tablets Once a day Lisinopril [facility] 82262517925 40 MG Orally Active 1 tablet Once a day Clonidine HCl [facility] 60905615867 0.1 MG Orally Active 1 tablet Twice a day at bedtime Topamax [facility] 88136844218 25 MG Orally Active 1 tablet Once a day Plavix [facility] 54099123348 75 MG Orally Active 1 tablet Once a day Amitriptyline [facility] 21764709800 50 MG Orally Active 1 tablet HCl Once a day Lipitor [facility] 27598011442 10 MG Orally Active 1 tablet Once a day Warfarin Sodium [facility] 50056443485 3 MG Orally Active 3 tablet Once a day Results No Known Results Summary Purpose eClinicalWorks Submission
--- OUTSIDE RECORDS SUMMARY | 2019-01-23 22:11 | XMS REPORT ---
[...] Start Date End Date Status Dosage Lisinopril [facility] 65941239042 40 MG Orally Once Active 1 tablet a day Results No Known Results Summary Purpose eClinicalWorks Submission
--- OUTSIDE RECORDS SUMMARY | 2019-01-23 22:11 | XMS REPORT ---
[...] Date End Date Status Dosage Lisinopril [facility] 97412805732 40 MG Orally Once Active 1 tablet a day Results No Known Results Summary Purpose eClinicalWorks Submission
--- OUTSIDE RECORDS SUMMARY | 2019-01-23 22:11 | XMS REPORT ---
[...] System Date Date Primidone [facility] 83051678068 250 MG Orally Active 1 tablet Three times a day Breo Ellipta [facility] 39075382946 200-25 MCG/INH Active 1 puff Inhalation Once a day Lisinopril [facility] 78084692130 40 MG Orally Active 1 tablet Once a day Prilosec [facility] 20167618237 20 MG Orally Active 1 capsule Once a day ProAir HFA [facility] 06035142300 108 (90 Base) Active 2 puffs as MCG/ACT needed Inhalation every 6 hrs Lipitor [facility] 38626770148 10 MG Orally Active 1 tablet Once a day Topamax [facility] 86688331505 25 MG Orally Active 1 tablet Once a day Clonidine HCl [facility] 78412182600 0.1 MG Orally Active 1 tablet at Twice a day bedtime Carvedilol [facility] 83900893330 12.5 MG Orally Active as directed BID Aspir-81 [facility] 66553672199 81 MG Orally Active 1 tablet Once a day Amitriptyline [facility] 20668860995 50 MG Orally Active 1 tablet HCl Once a day Vitamin D3 [facility] 32659567514 400 UNIT Orally Active 2 tablets Once a day Zanaflex [facility] 21213710759 4 MG Orally Active 1 tablet as Three times a needed day Warfarin Sodium [facility] 72012237751 3 MG Orally Active 3 tablet Once a day Results No Known Results Summary Purpose eClinicalWorks Submission
--- OUTSIDE RECORDS SUMMARY | 2019-01-23 22:12 | XMS REPORT ---
[...] Status Dosage System Date Date ProAir HFA [facility] 03095242553 108 (90 Base) Active 2 puffs as MCG/ACT needed Inhalation every 6 hrs Zanaflex [facility] 72218214194 4 MG Orally Active 1 tablet Three times a as needed day Amlodipine [facility] 62914875987 5 MG Orally Active 1 tablet Besylate Once a day Lisinopril [facility] 84865108756 40 MG Orally Active 1 tablet Once a day Prilosec [facility] 72748506847 20 MG Orally Active 1 capsule Once a day Amitriptyline [facility] 25096777212 75 MG Orally Active 1 tablet HCl Once a day Lipitor [facility] 13956507055 10 MG Orally Active 1 tablet Once a day Lisinopril [facility] 12980537626 40 MG Orally Active 1 tablet Once a day Primidone [facility] 68708534789 250 MG Orally Active 1 tablet Three times a day Aspir-81 [facility] 02334595649 81 MG Orally Active 1 tablet Once a day Carvedilol [facility] 36422621387 12.5 MG Orally Inactive as BID directed Warfarin Sodium [facility] 10596893230 3 MG Orally Active 3 tablet Once a day Vitamin D3 [facility] 95996170352 400 UNIT Orally Active 2 tablets Once a day Topamax [facility] 55055152319 25 MG Orally Active 1 tablet Once a day Breo Ellipta [facility] 46775037444 200-25 MCG/INH Active 1 puff Inhalation Once a day Clonidine HCl [facility] 65030488639 0.1 MG Orally Active 1 tablet Twice a day at bedtime Results No Known Results Summary Purpose eClinicalWorks Submission
--- OUTSIDE RECORDS SUMMARY | 2019-01-23 22:12 | XMS REPORT ---
:1945 Author Organization eClinicalWorks Care Team Providers Name Role Phone De La CruzHome Provider Role Unavailable Allergies, Adverse Reactions, Alerts Substance Reaction Event Type N.K.D.A. 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 Assessment Insomnia G47.00 Active Problem H/O TIA (transient ischemic attack) Z86.73 Active and stroke Assessment Chronic obstructive pulmonary J44.9 Active disease Problem H/O fall Z91.81 Active Problem Aortic aneurysm, abdominal I71.4 Active Problem Gastrointestinal hemorrhage, K92.2 Active unspecified gastrointestinal hemorrhage type Problem Nicotine dependence F17.200 Active Problem 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 Problem Anemia, unspecified type D64.9 Active Problem Asymptomatic hypertensive urgency I16.0 Active Assessment Peripheral vascular disease I73.9 Active Problem Physical debility R53.81 Active Assessment Hypercoagulable state D68.59 Active Problem Generalized weakness R53.1 Active Assessment 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 Problem Watery diarrhea R19.7 Active Assessment Generalized weakness R53.1 Active Problem Anemia in chronic illness D63.8 Active Assessment Hyperlipidemia, mixed E78.2 Active Problem Thoracic aortic aneurysm without I71.2 Active rupture Assessment Anemia, unspecified type D64.9 Active Assessment Benign essential HTN I10 Active Assessment Aortic aneurysm, abdominal I71.4 Active Assessment Thoracic aortic aneurysm without I71.2 Active rupture Medications Medication Code Code Instructions Start End Status Dosage System Date Date Prilosec [facility] 94208034107 20 MG Orally Active 1 capsule Once a day Vitamin D3 [facility] 68568782960 400 UNIT Orally Active 2 tablets Once a day Warfarin Sodium [facility] 70833913926 3 MG Orally Active 3 tablet Once a day Aspir-81 [facility] 75929185606 81 MG Orally Active 1 tablet Once a day Breo Ellipta [facility] 70402910045 200-25 MCG/INH Active 1 puff Inhalation Once a day Lipitor [facility] 21157075874 10 MG Orally Active 1 tablet Once a day Amlodipine [facility] 68658895067 5 MG Orally Active 1 tablet Besylate Once a day Zanaflex [facility] 83312972614 4 MG Orally Active 1 tablet Three times a as needed day Primidone [facility] 96973469297 250 MG Orally Active 1 tablet Three times a day Lisinopril [facility] 90608648558 40 MG Orally Active 1 tablet Once a day Amitriptyline HCl [facility] 66640188174 75 MG Orally Active 1 tablet Once a day Amitriptyline HCl [facility] 33293845887 75 MG Orally Active 1 tablet Once a day Topamax [facility] 06253638281 25 MG Orally Active 1 tablet Once a day Clonidine HCl [facility] 12406959716 0.1 MG Orally Active 1 tablet Twice a day at bedtime Lisinopril [facility] 05624626375 40 MG Orally Active 1 tablet Once a day ProAir HFA [facility] 43458658372 108 (90 Base) Active 2 puffs as MCG/ACT needed Inhalation every 6 hrs Results No Known Results Summary Purpose eClinicalWorks Submission
--- OUTSIDE RECORDS SUMMARY | 2019-01-23 22:12 | XMS REPORT ---
[...] R41.3 Active Problem Tremor R25.1 Active Problem H/O TIA (transient ischemic Z86.73 Active attack) and stroke Problem H/O fall Z91.81 Active Problem Peripheral vascular disease I73.9 Active Problem Aortic aneurysm, abdominal I71.4 Active Problem Gastrointestinal hemorrhage, K92.2 Active unspecified gastrointestinal hemorrhage type Problem Nicotine dependence F17.200 Active Problem 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 Problem Anemia, unspecified type D64.9 Active Problem Vitamin D deficiency E55.9 Active Problem Insomnia G47.00 Active Problem Asymptomatic hypertensive urgency I16.0 Active Problem Occlusion and stenosis of carotid I65.29 Active artery Problem Physical debility R53.81 Active Problem Generalized weakness R53.1 Active Problem Watery diarrhea R19.7 Active Problem Anemia in chronic illness D63.8 Active Problem Chronic obstructive pulmonary J44.9 Active disease Problem Thoracic aortic aneurysm without I71.2 Active rupture Problem Benign hypertrophy of prostate N40.0 Active Problem Benign essential HTN I10 Active Assessment Non-healing wound of lower S81.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 Active extremity, right, sequela Problem Hyperlipidemia, mixed E78.2 Active Problem 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 Problem 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 Problem Hemiplegia and hemiparesis I69.854 Active following other cerebrovascular disease affecting left non-dominant side Problem 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 Medications Medication Code Code Instructions Start End Status Dosage System Date Date Lisinopril [facility] 70144594932 40 MG Orally Active 1 tablet Once a day Aspir-81 [facility] 28516961202 81 MG Orally Active 1 tablet Once a day Lipitor [facility] 80210358394 10 MG Orally Active 1 tablet Once a day Breo Ellipta [facility] 41605742458 200-25 MCG/INH Active 1 puff Inhalation Once a day Vitamin D3 [facility] 99234877620 400 UNIT Orally Active 2 tablets Once a day Warfarin Sodium [facility] 67050707839 3 MG Orally Active 3 tablet Once a day Primidone [facility] 59921722861 250 MG Orally Active 1 tablet Three times a day Amlodipine [facility] 59283564442 2.5 MG Orally Active 1 tablet Besylate Twice a day Amitriptyline HCl [facility] 98649274358 75 MG Active TAKE ONE (1) TABLET(S) BY MOUTH ONCE A DAY. Clonidine HCl [facility] 83525143664 0.1 MG Orally Active 1 tablet Twice a day at bedtime Prilosec [facility] 98625397595 20 MG Orally Active 1 capsule Once a day Zanaflex [facility] 32633491051 4 MG Orally Active 1 tablet Three times a as needed day Topamax [facility] 00865958097 25 MG Orally Active 1 tablet Once a day ProAir HFA [facility] 07133704352 108 (90 Base) Active 2 puffs as MCG/ACT needed Inhalation every 6 hrs Results No Known Results Summary Purpose eClinicalWorks Submission
--- OUTSIDE RECORDS SUMMARY | 2019-01-23 22:12 | XMS REPORT ---
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 Amlodipine [facility] 57285462389 2.5 MG Orally Active 1 tablet Besylate Twice a day Breo Ellipta [facility] 43293106915 200-25 MCG/INH Active 1 puff Inhalation Once a day Vitamin D3 [facility] 99958340340 400 UNIT Orally Active 2 tablets Once a day ProAir HFA [facility] 62487921579 108 (90 Base) Active 2 puffs as MCG/ACT needed Inhalation every 6 hrs Lisinopril [facility] 33943931817 40 MG Orally Active 1 tablet Once a day Warfarin Sodium [facility] 35299565274 3 MG Orally Active 3 tablet Once a day Clonidine HCl [facility] 27425691248 0.1 MG Orally Active 1 tablet Twice a day at bedtime Prilosec [facility] 16273022689 20 MG Orally Active 1 capsule Once a day Topamax [facility] 78556930637 25 MG Orally Active 1 tablet Once a day Lipitor [facility] 07202478693 10 MG Orally Active 1 tablet Once a day Aspir-81 [facility] 50712227655 81 MG Orally Active 1 tablet Once a day Results No Known Results Summary Purpose eClinicalWorks Submission
[2019-01-23 22:41] LABS: Basophils % 0.3 % (0-1.3); Eosinophils % 2.1 % (0-4.4); Hematocrit 41.1 % (39.6-49.0); Lymphocytes % 12.9 % (15.3-44.8); MPV 8.5 fL (7.6-11.3); Monocytes % 8.7 % (3.3-12.3); RBC Red Blood Cell Count 4.69 M/uL (4.33-5.43)
[2019-01-23 22:47] LABS: Protime INR 1.28
[2019-01-23] MEDS ORDERED: NA CHLORIDE 0.9% 1,000 ML ONE (22:52)
[2019-01-23 23:03] LABS: ALT/SGPT 12 U/L (12-78); AST/SGOT 13 U/L (15-37); Albumin 3.7 g/dL (3.4-5.0); Alkaline Phosphatase 216 U/L (45-117); BUN Blood Urea Nitrogen 10 mg/dL (7-18); Bicarbonate 29 mmol/L (21-32); Bilirubin Direct 0.1 mg/dL (0-0.2); Bilirubin Total 0.4 mg/dL (0.2-1.0); Creatine Phosphokinase 120 U/L (39-308); Glucose Level 118 mg/dL (74-106); Lipase 35 U/L (73-393); Potassium 3.6 mmol/L (3.5-5.1); Sodium Level 137 mmol/L (136-145); Troponin (Emerg Dept Use Only) < 0.02 ng/mL (0.0-0.045)
[2019-01-23] MEDS ORDERED: CEFTRIAXONE/SWI 1gm 1 GM/10 ML SYR ONE (23:55)
--- NOTE | 2019-01-24 00:05 | ER ---
Nurse's Notes [facility] Name: Pineda Mckeon Age: 73 yrs Sex: Male : 1945 Arrival Date: 01/23/2019 Time: 22:01 Bed 25 Private MD: Home De La Cruz Diagnosis: Altered mental status, unspecified;Fever, unspecified;Chronic obstructive pulmonary disease with (acute) exacerbation;Pneumonia due to other specified bacteria;Unspecified kidney failure Presentation: 01/23 22:02 Presenting complaint: EMS states: "his daughter noticed that he was slightly altered jd3 last night, but didn't think it was too bad. today he is having a fever and slightly more altered. normally A\\T\\O X 4. today he is A \\T\\ O X 3 not to sure on the time. he had a 101.1 temp for us and we gave 1 gram of Tylenol.". Transition of care: patient was not received from another setting of care. Onset of symptoms was January 23, 2019. Risk Assessment: Do you want to hurt yourself or someone else? Patient reports no desire to harm self or others. Initial Sepsis Screen: Does the patient meet any 2 criteria? Altered Mental Status. HR > 90 bpm. Yes Does the patient have a suspected source of infection? Yes: Skin breakdown/wound If YES to both, name of provider notified: Lucio Dickson MD Care prior to arrival: Medication(s) given: Tylenol, 1000 mg. 22:02 Method Of Arrival: EMS: [facility] jd3 22:02 Acuity: NORY 2 jd3 Historical: - Allergies: 22:14 No Known Allergies; jd3 - Home Meds: 22:14 cholecalciferol (vitamin D3) 400 unit Oral cap 2 tab daily [Active]; albuterol sulfate jd3 90 mcg/actuation Inhl HFAA 1 puff every 6 hours [Active]; amitriptyline 100 mg Oral tab [Active]; amlodipine 2.5 mg tab 1 tab once daily [Active]; atorvastatin 10 mg Oral tab 1 tab once daily [Active]; Bactroban 2 % Topical crea [Active]; Betamethasone Valerate Topical [Active]; Breo Ellipta 200-25 mcg/dose inhalation dsdv 1 puff once daily [Active]; carvedilol 6.25 mg Oral tab 1 tab 2 times per day [Active]; fentanyl 100 mcg/hr Topical pt72 1 patch every 48 hours [Active]; Flomax 0.4 mg Oral cp24 [Active]; gabapentin 300 mg Oral cap 1 cap daily [Active]; hydrocodone-acetaminophen 10-325 mg Oral tab 1 tab every 6 hours [Active]; lisinopril 40 mg Oral tab 1 tab once daily [Active]; nystatin 100,000 unit/mL Oral susp [Active]; omeprazole 20 mg Oral cpDR 1 cap once daily [Active]; primidone 250 mg Oral tab 1 tab daily [Active]; tizanidine 4 mg Oral tab 1 tab three times a day [Active]; topiramate 100 mg Oral tab 1 tab 2 times per day [Active]; urea Topical [Active]; Vitamin B-12 1,000 mcg Oral tab 1000 mcg daily [Active]; warfarin 8 mg Oral tab 1 tab once daily [Active]; - PMHx: 22:14 AAA; blood clot in right groin; COPD; CVA; Hypertension; clotting disorder; Bypass jd3 Bilateral Legs; Degenerative disc disease; TIA; Right Arm; - PSHx: 22:14 Right arm; Cholecystectomy; Hernia repair; jd3 - Immunization history:: Adult Immunizations unknown. - Social history:: Smoking status: Patient uses tobacco products, denies chronic smoking, but will smoke occasionally. - Ebola Screening: : No symptoms or risks identified at this time Patient negative for fever greater than or equal to 101.5 degrees Fahrenheit, and additional compatible Ebola Virus Disease symptoms. - Family history:: not pertinent. Screenin:15 Abuse screen: Denies threats or abuse. Nutritional screening: No deficits noted. ea Tuberculosis screening: No symptoms or risk factors identified. Fall Risk IV access (20 points). Assessment: 22:10 General: Appears in no apparent distress. Behavior is calm. Pain: Denies pain. Neuro: ea Level of Consciousness is awake, alert, obeys commands, Oriented to person. Cardiovascular: Patient's skin is warm and dry. Respiratory: Airway is patent Respiratory effort is even, unlabored, Respiratory pattern is regular, symmetrical. Musculoskeletal: Circulation, motion, and sensation intact. 23:00 Reassessment: Patient and/or family updated on plan of care and expected duration. Pain ea level reassessed. Patient is alert, oriented x 3, equal unlabored respirations, skin warm/dry/pink. 01/24 00:00 Reassessment: Patient and/or family updated on plan of care and expected duration. Pain ea level reassessed. Patient is alert, oriented x 3, equal unlabored respirations, skin warm/dry/pink. 01:00 Reassessment: Patient and/or family updated on plan of care and expected duration. Pain ea level reassessed. Patient is alert, oriented x 3, equal unlabored respirations, skin warm/dry/pink. 02:00 Reassessment: Patient and/or family updated on plan of care and expected duration. Pain ea level reassessed. Patient is alert, oriented x 3, equal unlabored respirations, skin warm/dry/pink. Vital Signs: 01/23 22:15 BP 160 / 84; Pulse 96; Resp 16 S; Temp 100.9(O); Pulse Ox 95% on 2 lpm NC; Weight 72.57 jd3 kg (R); Height 5 ft. 6 in. (167.64 cm) (R); Pain 0/10; 01/24 00:00 BP 167 / 75; Pulse 80; Resp 18; Temp 99; Pulse Ox 98% 2 lpm ; ea 01:00 BP 145 / 80; Pulse 80; Resp 18; Pulse Ox 98% on 2 lpm NC; ea 02:39 BP 145 / 59; Pulse 90; Resp 18; Pulse Ox 95% ; ea 03:58 BP 134 / 68; Pulse 79; Resp 14; Temp 99.4(O); Pulse Ox 100% on 2 lpm NC; mw2 01/23 22:15 Body Mass Index 25.82 (72.57 kg, 167.64 cm) [facility] ED Course: 01/23 22:01 Patient arrived in ED. jd3 22:06 Inserted saline lock: 20 gauge in right antecubital area, using aseptic technique. ea Blood collected. 22:08 Marlene Decker, RN is Primary Nurse. ea 22:09 Triage completed. jd3 22:15 Patient has correct armband on for positive identification. Bed in low position. Call ea light in reach. Side rails up X2. 22:16 Arm band placed on. jd3 22:46 Chest Single View XRAY In Process Unspecified. EDMS 23:11 Home De La Cruz DO is Private Physician. am2 23:31 Lucio Dickson MD is Attending Physician. jon 01/24 00:03 Rosario Johnson MD is Hospitalizing Provider. jon 02:05 No provider procedures requiring assistance completed. Patient admitted, IV remains in ea place. Administered Medications: 01/23 22:57 Drug: NS 0.9% (30 ml/kg) 30 ml/kg Route: IV; Rate: bolus; Site: right antecubital; jd3 01/24 03:04 Follow up: Response: No adverse reaction; IV Status: Infusion continued upon admission; ea IV Intake: 1000ml 01/23 23:41 Not Given (Other Intervention Used): Tylenol 650 mg PO once jd3 23:53 Drug: Rocephin - (cefTRIAXone) 1 grams {Note: given as IV push per provider's verbal jd3 order..} Route: IVPB; Infused Over: 30 mins; Site: right antecubital; 01/24 00:10 Follow up: IV Status: Completed infusion ea 01:05 Drug: SOLU-Medrol 125 mg Route: IVP; Site: right antecubital; ea 02:00 Follow up: Response: No adverse reaction ea 01:05 Drug: Xopenex 1.25 mg Route: Inhalation; ea 01:06 Drug: AtroVENT Aerosol 0.5 mg Route: Inhalation; ea 01:11 Drug: Zithromax 500 mg Route: IVPB; Infused Over: 1 hrs; Site: right antecubital; ea 03:04 Follow up: Response: No adverse reaction; IV Status: Completed infusion; IV Intake: ea 250ml 01:11 Drug: Xopenex 1.25 mg Route: Inhalation; ea Intake: 03:04 IV: 250ml; Total: 250ml. ea 03:04 IV: 1000ml; Total: 1250ml. ea Outcome: 00:03 Decision to Hospitalize by Provider. jon 02:05 Instructed on the need for admit, Demonstrated understanding of instructions. ea 03:03 Admitted to ER Hold. Please see [facility] for further documentation. ea 03:03 Condition: stable 08:00 Patient left the ED. bd Signatures: Dispatcher [employer] EDMS Audrey Valderrama Corey, MD MD cha Moreno, Amanda am2 Marlene Decker RN RN Janelle Marqueznathon, RN RN jd3 Jaiden, Dale 2
--- NOTE | 2019-01-24 00:06 | EDPHYS ---
Physician Documentation [facility] Name: Pineda Mckeon Age: 73 yrs Sex: Male : 1945 Arrival Date: 01/23/2019 Time: 22:01 Bed 25 Private MD: Jono [facility] ED Physician Lucio Dickson HPI: 01/23 23:57 This 73 yrs old Male presents to ER via EMS with complaints of fever and jon cough. 23:57 The patient has shortness of breath with light activity. Onset: The symptoms/episode jon began/occurred 2 day(s) ago. Duration: The symptoms are continuous, and are steadily getting worse. The patient's shortness of breath has no apparent modifying factors. The patient or guardian reports airway noise, cough, that is constant. Modifying factors: The symptoms are alleviated by nothing. the symptoms are aggravated by nothing. Associated signs and symptoms: Pertinent positives: non-productive cough, fever. Severity of symptoms: At their worst the symptoms were mild in the emergency department the symptoms are unchanged. Associated signs and symptoms: The patient has no apparent associated signs or symptoms. Historical: - Allergies: 22:14 No Known Allergies; jd3 - Home Meds: 22:14 cholecalciferol (vitamin D3) 400 unit Oral cap 2 tab daily [Active]; albuterol sulfate jd3 90 mcg/actuation Inhl HFAA 1 puff every 6 hours [Active]; amitriptyline 100 mg Oral tab [Active]; amlodipine 2.5 mg tab 1 tab once daily [Active]; atorvastatin 10 mg Oral tab 1 tab once daily [Active]; Bactroban 2 % Topical crea [Active]; Betamethasone Valerate Topical [Active]; Breo Ellipta 200-25 mcg/dose inhalation dsdv 1 puff once daily [Active]; carvedilol 6.25 mg Oral tab 1 tab 2 times per day [Active]; fentanyl 100 mcg/hr Topical pt72 1 patch every 48 hours [Active]; Flomax 0.4 mg Oral cp24 [Active]; gabapentin 300 mg Oral cap 1 cap daily [Active]; hydrocodone-acetaminophen 10-325 mg Oral tab 1 tab every 6 hours [Active]; lisinopril 40 mg Oral tab 1 tab once daily [Active]; nystatin 100,000 unit/mL Oral susp [Active]; omeprazole 20 mg Oral cpDR 1 cap once daily [Active]; primidone 250 mg Oral tab 1 tab daily [Active]; tizanidine 4 mg Oral tab 1 tab three times a day [Active]; topiramate 100 mg Oral tab 1 tab 2 times per day [Active]; urea Topical [Active]; Vitamin B-12 1,000 mcg Oral tab 1000 mcg daily [Active]; warfarin 8 mg Oral tab 1 tab once daily [Active]; - PMHx: 22:14 AAA; blood clot in right groin; COPD; CVA; Hypertension; clotting disorder; Bypass jd3 Bilateral Legs; Degenerative disc disease; TIA; Right Arm; - PSHx: 22:14 Right arm; Cholecystectomy; Hernia repair; jd3 - Immunization history:: Adult Immunizations unknown. - Social history:: Smoking status: Patient uses tobacco products, denies chronic smoking, but will smoke occasionally. - Ebola Screening: : No symptoms or risks identified at this time Patient negative for fever greater than or equal to 101.5 degrees Fahrenheit, and additional compatible Ebola Virus Disease symptoms. - Family history:: not pertinent. ROS: 23:57 Eyes: Negative for injury, pain, redness, and discharge, ENT: Negative for injury, jon pain, and discharge, Neck: Negative for injury, pain, and swelling, Cardiovascular: Negative for chest pain, palpitations, and edema, Abdomen/GI: Negative for abdominal pain, nausea, vomiting, diarrhea, and constipation, Back: Negative for injury and pain, : Negative for injury, bleeding, discharge, and swelling, MS/Extremity: Negative for injury and deformity, Skin: Negative for injury, rash, and discoloration, Neuro: Negative for headache, weakness, numbness, tingling, and seizure, Psych: Negative for depression, anxiety, suicide ideation, homicidal ideation, and hallucinations, Allergy/Immunology: Negative for hives, rash, and allergies, Endocrine: Negative for neck swelling, polydipsia, polyuria, polyphagia, and marked weight changes, Hematologic/Lymphatic: Negative for swollen nodes, abnormal bleeding, and unusual bruising. 23:57 Constitutional: Positive for body aches, chills, fatigue, fever, malaise. 23:57 Respiratory: Positive for cough, wheezing, expiratory. Exam: 23:57 Constitutional: This is a well developed, well nourished patient who is awake, alert, jon and in no acute distress. Head/Face: Normocephalic, atraumatic. Eyes: Pupils equal round and reactive to light, extra-ocular motions intact. Lids and lashes normal. Conjunctiva and sclera are non-icteric and not injected. Cornea within normal limits. Periorbital areas with no swelling, redness, or edema. ENT: Nares patent. No nasal discharge, no septal abnormalities noted. Tympanic membranes are normal and external auditory canals are clear. Oropharynx with no redness, swelling, or masses, exudates, or evidence of obstruction, uvula midline. Mucous membranes moist. Neck: Trachea midline, no thyromegaly or masses palpated, and no cervical lymphadenopathy. Supple, full range of motion without nuchal rigidity, or vertebral point tenderness. No Meningismus. Chest/axilla: Normal chest wall appearance and motion. Nontender with no deformity. No lesions are appreciated. Abdomen/GI: Soft, non-tender, with normal bowel sounds. No distension or tympany. No guarding or rebound. No evidence of tenderness throughout. Back: No spinal tenderness. No costovertebral tenderness. Full range of motion. Male : Normal genitalia with no discharge or lesions. Skin: Warm, dry with normal turgor. Normal color with no rashes, no lesions, and no evidence of cellulitis. MS/ Extremity: Pulses equal, no cyanosis. Neurovascular intact. Full, normal range of motion. Neuro: Awake and alert, GCS 15, oriented to person, place, time, and situation. Cranial nerves II-XII grossly intact. Motor strength 5/5 in all extremities. Sensory grossly intact. Cerebellar exam normal. Normal gait. Psych: Awake, alert, with orientation to person, place and time. Behavior, mood, and affect are within normal limits. 23:57 Cardiovascular: Rate: normal, Rhythm: regular, Pulses: Pulses are 4+ in bilateral radial, brachial, femoral, popliteal, posterior tibial and and dorsalis pedis arteries.. Heart sounds: normal, normal S1and S2, no S3 or S4, no murmur, no rub, no gallop, Edema: is not appreciated, JVD: is not appreciated. 23:57 Respiratory: the patient does not display signs of respiratory distress, Respirations: labored breathing, that is mild, Breath sounds: bronchial sounds, decreased breath sounds, rhonchi, wheezing: expiratory is scattered. Vital Signs: 22:15 BP 160 / 84; Pulse 96; Resp 16 S; Temp 100.9(O); Pulse Ox 95% on 2 lpm NC; Weight 72.57 jd3 kg (R); Height 5 ft. 6 in. (167.64 cm) (R); Pain 0/10; 01/24 00:00 BP 167 / 75; Pulse 80; Resp 18; Temp 99; Pulse Ox 98% 2 lpm ; ea 01:00 BP 145 / 80; Pulse 80; Resp 18; Pulse Ox 98% on 2 lpm NC; ea 02:39 BP 145 / 59; Pulse 90; Resp 18; Pulse Ox 95% ; ea 03:58 BP 134 / 68; Pulse 79; Resp 14; Temp 99.4(O); Pulse Ox 100% on 2 lpm NC; [facility] 01/23 22:15 Body Mass Index 25.82 (72.57 kg, 167.64 cm) [address]: 01/23 23:31 Patient medically screened. [facility] 01/24 00:01 Data reviewed: vital signs, nurses notes, lab test result(s), EKG, radiologic studies, [facility] plain films. 01/23 22:21 Order name: Basic Metabolic Panel [facility] 01/23 22:21 Order name: Blood Culture Adult (2) [facility] 01/23 22:21 Order name: CBC with Diff [facility] 01/23 22:21 Order name: Ckmb [facility] 01/23 22:21 Order name: CPK [facility] 01/23 22:21 Order name: Lactate [facility] 01/23 22:21 Order name: LFT's [facility] 01/23 22:21 Order name: Lipase [facility] 01/23 22:21 Order name: Procalcitonin; Complete Time: 00:04 [facility] 01/23 22:21 Order name: Protime (+inr); Complete Time: 23:18 [facility] 01/23 22:21 Order name: Ptt, Activated; Complete Time: 23:18 [facility] 01/23 22:21 Order name: Troponin (emerg Dept Use Only); Complete Time: 23:18 [facility] 01/23 22:21 Order name: Urine Microscopic Only [facility] 01/23 22:22 Order name: Basic Metabolic Panel; Complete Time: 23:18 [facility] 01/23 22:21 Order name: Chest Single View XRAY [facility] 01/23 22:22 Order name: Blood Culture [facility] 01/23 22:23 Order name: CBC with Automated Diff; Complete Time: 23:18 [facility] 01/23 22:23 Order name: CKMB Creatine Kinase MB; Complete Time: 23:18 [facility] 01/23 22:23 Order name: Creatine Phosphokinase; Complete Time: 23:18 [facility] 01/23 22:23 Order name: Lactate; Complete Time: 23:18 [facility] 01/23 22:23 Order name: Liver (Hepatic) Function; Complete Time: 23:18 [facility] 01/23 22:24 Order name: Lipase; Complete Time: 23:18 [facility] 01/23 23:36 Order name: Urine Culture [facility] 01/23 23:56 Order name: Flu [facility] 01/24 05:03 Order name: Basic Metabolic Panel [facility] 01/24 05:10 Order name: CBC with Automated Diff [facility] 01/24 05:15 Order name: Magnesium [facility] 01/24 06:32 Order name: CBC Smear Scan [facility] 01/23 22:21 Order name: Accucheck; Complete Time: 22:58 [facility] 01/23 22:21 Order name: Cardiac monitoring; Complete Time: 22:58 [facility] 01/23 22:21 Order name: EKG - Nurse/Tech; Complete Time: 01:36 [facility] 01/23 22:21 Order name: IV Saline Lock - Large Bore; Complete Time: 22:58 [facility] 01/23 22:21 Order name: Labs collected and sent; Complete Time: 22:58 [facility] 01/23 22:21 Order name: O2 Per Protocol; Complete Time: 22:58 [facility] 01/23 22:21 Order name: O2 Sat Monitoring; Complete Time: 22:57 [facility] 01/23 22:21 Order name: Urine Dipstick-Ancillary (obtain specimen); Complete Time: 03:07 j Administered Medications: 01/23 22:57 Drug: NS 0.9% (30 ml/kg) 30 ml/kg Route: IV; Rate: bolus; Site: right antecubital; [facility] 01/24 03:04 Follow up: Response: No adverse reaction; IV Status: Infusion continued upon admission; ea IV Intake: 1000ml 01/23 23:41 Not Given (Other Intervention Used): Tylenol 650 mg PO once jd3 23:53 Drug: Rocephin - (cefTRIAXone) 1 grams {Note: given as IV push per provider's verbal jd3 order..} Route: IVPB; Infused Over: 30 mins; Site: right antecubital; 01/24 00:10 Follow up: IV Status: Completed infusion ea 01:05 Drug: SOLU-Medrol 125 mg Route: IVP; Site: right antecubital; ea 02:00 Follow up: Response: No adverse reaction ea 01:05 Drug: Xopenex 1.25 mg Route: Inhalation; ea 01:06 Drug: AtroVENT Aerosol 0.5 mg Route: Inhalation; ea 01:11 Drug: Zithromax 500 mg Route: IVPB; Infused Over: 1 hrs; Site: right antecubital; ea 03:04 Follow up: Response: No adverse reaction; IV Status: Completed infusion; IV Intake: ea 250ml 01:11 Drug: Xopenex 1.25 mg Route: Inhalation; ea Disposition: 01/24/19 00:03 Hospitalization ordered by Rosario Johnson for Inpatient Admission. Preliminary diagnosis are Altered mental status, unspecified, Fever, unspecified, Chronic obstructive pulmonary disease with (acute) exacerbation, Pneumonia due to other specified bacteria, Unspecified kidney failure. - Bed requested for Telemetry/MedSurg (Inpatient). - Status is Inpatient Admission. bd - Condition is Fair. - Problem is new. - Symptoms have improved. UTI on Admission? No Signatures: Dispatcher [employer] EDMS Audrey Valderrama Corey, MD MD cha Therrien, Shelly, CLOTH DESIGNER-C CLOTH DESIGNER-Csnw Antonia Alcantar, RN Marlene Neves RN RN ea Davies, Jonathon, RN RN jd3 Robles, Autumn ar5 Corrections: (The following items were deleted from the chart) : 00:03 Hospitalization Ordered by Rosario Johnson MD for Inpatient Admission. Preliminary jon diagnosis is Altered mental status, unspecified; Fever, unspecified; Chronic obstructive pulmonary disease with (acute) exacerbation; Pneumonia due to other specified bacteria. Bed requested for Telemetry/MedSurg (Inpatient). Status is Inpatient Admission. Condition is Fair. Problem is new. Symptoms have improved. UTI on Admission? No. jon 03:46 01:05 01/24/2019 00:03 Hospitalization Ordered by Rosario Johnson MD for Inpatient ar5 Admission. Preliminary diagnosis is Altered mental status, unspecified; Fever, unspecified; Chronic obstructive pulmonary disease with (acute) exacerbation; Pneumonia due to other specified bacteria; Unspecified kidney failure. Bed requested for Telemetry/MedSurg (Inpatient). Status is Inpatient Admission. Condition is Fair. Problem is new. Symptoms have improved. UTI on Admission? No. jon 06:09 03:46 01/24/2019 00:03 Hospitalization Ordered by Rosario Johnson MD for Inpatient cg Admission. Preliminary diagnosis is Altered mental status, unspecified; Fever, unspecified; Chronic obstructive pulmonary disease with (acute) exacerbation; Pneumonia due to other specified bacteria; Unspecified kidney failure. Bed requested for [facility] ER HOLD. Status is Inpatient Admission. Condition is Fair. Problem is new. Symptoms have improved. UTI on Admission? No. ar5 08:00 06:09 01/24/2019 00:03 Hospitalization Ordered by Rosario Johnson MD for Inpatient bd Admission. Preliminary diagnosis is Altered mental status, unspecified; Fever, unspecified; Chronic obstructive pulmonary disease with (acute) exacerbation; Pneumonia due to other specified bacteria; Unspecified kidney failure. Bed requested for Telemetry/MedSurg (Inpatient). Status is Inpatient Admission. Condition is Fair. Problem is new. Symptoms have improved. UTI on Admission? No. cg
[2019-01-24] MEDS ORDERED: METHYLPREDNISOLONE 125 MG INJ ONE (00:33)
[2019-01-24] MEDS ORDERED: IPRATROPIUM BROM 0.5MG/2.5ML ONE (00:34)
[2019-01-24] MEDS ORDERED: NA CHLORIDE 0.9% 250 ML ONE (00:34)
[2019-01-24] MEDS ORDERED: AZITHROMYCIN 500 MG INJ IVPB ONE (00:34)
[2019-01-24] MEDS ORDERED: LEVALBUTEROL 1.25 MG/3 ML NEB ONE (00:34)
[2019-01-24] MEDS ORDERED: IPRATROPIUM BROM 0.5MG/2.5ML NEB PRN (02:49)
[2019-01-24] MEDS ORDERED: ACETAMINOPHEN 500 MG TAB PO PRN (02:49)
[2019-01-24] MEDS ORDERED: ONDANSETRON 4 MG/2 ML VIAL IV PRN (02:49)
[2019-01-24] MEDS ORDERED: ALBUTEROL 2.5 MG/3 ML NEB SOL NEB PRN (02:49)
[2019-01-24] MEDS: NA CHLORIDE 0.9% 1,000 ML IV SCH ×2 (03:00→13:00)
[2019-01-24 03:37] LABS: Urine Bacteria <20 /HPF (NONE SEEN); Urine RBC <5 /HPF (NONE SEEN)
[2019-01-24 03:38] LABS: Urine Culture Reflex Order NOT NEEDED; Urine Waxy Casts 0-5 /LPF (NONE SEEN)
[2019-01-24 04:16] VITALS: BMI 25.8
[2019-01-24 04:42] LABS: Absolute Lymphocytes (CBC) 0.3 K/uL (0.7-4.9); Basophils % 0.9 % (0-1.3); Eosinophils % 0.2 % (0-4.4); Hematocrit 35.4 % (39.6-49.0); Lymphocytes % 3.9 % (15.3-44.8); MPV 8.3 fL (7.6-11.3); Monocytes % 2.1 % (3.3-12.3); RBC Red Blood Cell Count 4.07 M/uL (4.33-5.43)
[2019-01-24 05:01] LABS: Potassium 4.5 mmol/L (3.5-5.1)
[2019-01-24] MEDS ORDERED: NA CHLORIDE 0.9% 1,000 ML ONE (05:15)
--- NOTE | 2019-01-24 05:58 | P.HP ---
Certification for Inpatient Patient admitted to: Inpatient With expected LOS: >2 Midnights Practitioner: I am a practitioner with admitting privileges, knowledge of patient current condition, hospital course, and medical plan of care. Services: Services provided to patient in accordance with Admission requirements found in Title 42 Section 412.3 of the Code of Federal Regulations Patient History Date of Service: 01/24/19 Reason for admission: COPD exacerbation History of Present Illness: Mr Mckeon is a 73 years old male with multiple medical problems, including chronic right groin wound, COPD, CAD, who became more confused last night. This morning he remain confused and has had fever. The patient has had slightly more cough than usual, with whitish/yellowish secretions. He was also slightly more SOB. His temp was 101.1F. Family gave him Tylenol was brought the patient to ER. At arrival, he was still febrile. He was also complaining of right groin secretion from his wound, but was not different than usual. No new obvious inflammatory signs on the wound area. Lab work remarkable for normal WBC count, also normal procalcitonin and lactate. CXR awaiting radiology report. Allergies No Known Allergies Allergy (Verified 10/24/17 00:11) Home medications list reviewed: Yes Home Medications: Cyanocobalamin (Vitamin B-12) [B-12] 1,000 mcg PO DAILY 07/13/16 Topiramate 1 tab PO BID 08/29/17 Hydrocodone 10/APAP 325 [[place] 10/325*] 1 tab PO Q6H tab 09/17/17 Lisinopril [Prinivil*] 40 mg PO DAILY tab 09/17/17 fentaNYL [Fentanyl] 1 patch TD Q3D 10/24/17 Amitriptyline HCl 1 tab PO BEDTIME 12/31/17 Fluticasone/Vilanterol [Breo Ellipta 200-25 Mcg INH] 1 puff IH DAILY 12/31/17 Tizanidine HCl 8 mg PO DAILY PRN 12/31/17 Vit D3/Folic Acid/B2/B6/B12 [Folgard Tablet] 1 each PO DAILY 12/31/17 Warfarin Sodium [Coumadin*] 9 mg PO BEDTIME 12/31/17 cloNIDine HCl [Catapres*] 1 tab PO QID PRN 12/31/17 Primidone [Mysoline *] 250 mg PO DAILY 01/01/18 Carvedilol [Coreg*] 12.5 mg PO BID 03/06/18 Amox/Clavulanate [Augmentin 875-125 Tab] 1 each PO BID #20 tab 03/08/18 Collagenase [Santyl Ointment*] 1 appl TOP DAILY #1 tube 03/08/18 - Past Medical/Surgical History Has patient received pneumonia vaccine in the past: Yes Diabetic: No -: CAD -: PAD -: factor 5 clotting disorder -: COPD -: Recent history of subdural hematoma -: Chronic anti coagulation for arterial disease -: Chronic pain syndrome -: Peripheral vascular disease -: History of AAA repair -: Blood clot in the groin -: Degenerative disc disease -: Cholecystectomy -: CABGx3 -: AAA repair -: Hernia repair -: subdural hematoma surgery -: valve replacement Psychosocial/ Personal History: He currently lives with his daughter, has 5 children, he does not work. - Family History Mother -: Heart disease, Hypertension Father -: Heart disease, Other (see notes) Notes: Alzheimer's - Social History Smoking Status: Never smoker Alcohol use: No CD- Drugs: No Caffeine use: Yes Place of Residence: Home Review of Systems 10-point ROS is otherwise unremarkable Physical Examination - Vital Signs Temperature: 98.5 F Blood Pressure: 129/70 Pulse: 82 Respirations: 19 Pulse Ox (%): 100 - Physical Exam General: Alert, In no apparent distress HEENT: Atraumatic, PERRLA, Mucous membr. moist/pink, EOMI, Sclerae nonicteric Neck: Supple, 2+ carotid pulse no bruit, No LAD, Without JVD or thyroid abnormality Respiratory: Diminished, Crackles/rales (bibasilar crackles) Cardiovascular: Regular rate/rhythm, Normal S1 S2 Gastrointestinal: Normal bowel sounds, No tenderness Musculoskeletal: No tenderness Integumentary: No rashes Neurological: Normal speech, Normal strength at 5/5 x4 extr, Normal tone, Normal affect Lymphatics: No axilla or inguinal lymphadenopathy - Studies Laboratory Data (last 24 hrs) 01/23/19 22:15: PT 15.0 H, INR 1.28, APTT 30.0 01/23/19 22:15: WBC 7.9, Hgb 13.4 L, Hct 41.1, Plt Count 169 01/23/19 22:15: Sodium 137, Potassium 3.6, BUN 10, Creatinine 1.80 H, Glucose 118 H, Total Bilirubin 0.4, AST 13 L, ALT 12, Alkaline Phosphatase 216 H, Lipase 35 L Assessment and Plan - Problems (Diagnosis) (1) COPD exacerbation Current Visit: Yes Status: Acute (2) CAD (coronary artery disease) of artery bypass graft Onset Date: 12/31/17 Current Visit: No Status: Chronic Qualifiers: [place] vs. transplanted heart: [place] heart Associated angina: without angina Qualified Code(s): I25.810 - Atherosclerosis of coronary artery bypass graft(s) without angina pectoris (3) Esophageal stricture Current Visit: No Status: Chronic (4) Hiatal hernia with GERD Current Visit: No Status: Chronic (5) Non-healing surgical wound of right groin Current Visit: No Status: Chronic (6) Peripheral vascular disease Onset Date: 07/14/16 Current Visit: No Status: Chronic (7) Fever Onset Date: 07/14/16 Current Visit: No Status: Resolved Qualifiers: Fever type: unspecified Qualified Code(s): R50.9 - Fever, unspecified - Plan The patient will be admitted to the hospital due to fever, likely due to early COPD exacerbation, no other obvious source of infection. Will start empiric antibiotics, continue breathing treatments. Blood cultures in process. - Advance Directives Does patient have a Living Will: No Does patient have a Durable POA for Healthcare: No - Code Status/Comfort Care Code Status Assessed: Yes Code Status: Full Code
[2019-01-24 06:32] LABS: Blood Morphology Comment NOT SEEN (NOT SEEN); Platelet Estimate ADEQ; Urine White Blood Cell Casts OK
--- NOTE | 2019-01-24 08:09 | RAD REPORT ---
EXAM DESCRIPTION: Janae Single View01/23/2019 10:45 pm CLINICAL HISTORY: Shortness of breath COMPARISON: March 2018 FINDINGS: The lungs appear clear of acute infiltrate. The heart is normal size Calcified hilar lymph nodes. Aorta is tortuous/ectatic IMPRESSION: No acute abnormalities displayed
[2019-01-24] MEDS ORDERED: HEPARIN 5000 UNIT/ML 1 ML VIAL SQ SCH (09:00)
[2019-01-24 09:50] LABS: Urine Appearance CLEAR; Urine Bilirubin NEGATIVE (NEG); Urine Blood NEGATIVE (NEG); Urine Color YELLOW; Urine Glucose NEGATIVE (NEG); Urine Protein NEGATIVE (NEG); Urine Urobilinogen 0.2 mg/dL (0.2-1.0)
[2019-01-24 09:56] LABS: Urine Microscopic Reflex NO UMIC
--- NOTE | 2019-01-24 10:00 | RAD REPORT ---
EXAM DESCRIPTION: CT - Pelvis Wo Cont - 01/24/2019 5:48 am CLINICAL HISTORY: R/O infection COMPARISON: CT abdomen and pelvis with contrast 08/28/2017. TECHNIQUE: Axial unenhanced [address] imaging of the pelvis performed. Reformatted coronal and sagitta l images reviewed. A dose reduction technique was utilized with automated exposure control according to patient size. FINDINGS: The imaged inferior tip of the right lobe of liver contains calcifications consistent with granulomas. Mild dilatation of the right renal pelvis. AP pelvis is 1.2 cm. No distal obstructing st one. Inferior tip of the left kidney appears normal. RETROPERITONEAL VESSELS/NODES: The abdominal aorta is very atherosclerotic. There is a right aorta i liac and femoral stent extending from the distal aorta to the right femoral artery. There is a left a ortoiliac bypass graft. 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 Normal caliber inferior vena cava. No adenopathy. BOWEL: The included small bowel appears normal. Normal appendix in the right lower quadrant. Imaged segments of colon appear normal. MESENTERY/PERITONEUM: No ascites. No inferior mesenteric adenopathy. PELVIS: BLADDER: Significant bladder distention. No filling defect. No bladder wall thickening.. GENITAL ORGANS: Prostatic calcifications. Normal prostate size. PERITONEUM: No pelvic free fluid or adenopathy. BONES AND SOFT TISSUES: Lower lumbosacral spondylosis. Significant left hip osteoarthritis with matias ed joint space narrowing. Subchondral cystic changes of the acetabulum bilaterally, right greater griffin n left. IMPRESSION: 1. No acute inflammatory finding within the pelvis. 2. Mild right renal pelvic dilatation with no obstructing stone or mass. This could be secondary to m arked bladder distention. Electronically signed by: Marcie Matthew DO 01/24/2019 2:58 AM CDT Due to temporary technical issues with the PACS/Fluency reporting system, reports are being signed by the in house radiologist as a courtesy to ensure prompt reporting. The interpreting radiologist is payton villanuevaly responsible for the content of the report.
--- NOTE | 2019-01-24 12:38 | EKG ---
Test Date: 2019-01-24 Test Time: 01:34:28 Electroformer: HENRY MEASUREMENT RESULTS: Intervals: Rate: 91 TX: 164 QRSD: 98 QT: 364 QTc: 447 [place]: P: 77 TX: 164 QRS: -8 T: 57 INTERPRETIVE STATEMENTS: Normal sinus rhythm Normal ECG Compared to ECG 10/02/2018 18:23:07 No significant changes Electronically Signed On 01-24-19 12:36:59 CDT by Pavan Andrews
[2019-01-24] MEDS: AMLODIPINE 2.5 MG TAB PO SCH (15:12)
[2019-01-24] MEDS: LISINOPRIL 20 MG TAB PO SCH (15:12)
[2019-01-24] MEDS: CARVEDILOL 6.25 MG TAB PO SCH ×2 (15:13→22:28)
[2019-01-24] MEDS: HYDROCODONE/APAP 10/325 TAB PO PRN (15:13)
[2019-01-24] MEDS ORDERED: WARFARIN SODIUM 4 MG TAB PO SCH (17:00)
[2019-01-24] MEDS ORDERED: AZITHROMYCIN IV 500 MG in NA CHLORIDE 0.9% 250 ML IVPB SCH (21:00)
[2019-01-24] MEDS ORDERED: ATORVASTATIN 10 MG TAB PO SCH (21:00)
[2019-01-24] MEDS ORDERED: AMITRIPTYLINE 50 MG TAB PO SCH (21:00)
[2019-01-24] MEDS ORDERED: CEFTRIAXONE 1 GM/NS 50 ML 1 GM/50 ML BAG IV SCH (21:00)
[2019-01-24] MEDS: TOPIRAMATE 100 MG TAB PO SCH (22:28)
[2019-01-24] MEDS ORDERED: FENTANYL 100 MCG/PATCH TD SCH (23:00)
[2019-01-25 05:02] LABS: Absolute Lymphocytes (CBC) 1.3 K/uL (0.7-4.9); Basophils % 0.5 % (0-1.3); Eosinophils % 2.4 % (0-4.4); Hematocrit 33.5 % (39.6-49.0); Lymphocytes % 22.5 % (15.3-44.8); MPV 8.4 fL (7.6-11.3); RBC Red Blood Cell Count 3.88 M/uL (4.33-5.43)
[2019-01-25 05:15] LABS: Potassium 3.6 mmol/L (3.5-5.1)
[2019-01-25] MEDS ORDERED: POTASSIUM CL SA 10 MEQ TAB PO ONE (06:07)
[2019-01-25] MEDS ORDERED: PANTOPRAZOLE 40MG TABLET PO SCH (06:30)
[2019-01-25] MEDS: TOPIRAMATE 100 MG TAB PO SCH (08:05)
[2019-01-25] MEDS: LISINOPRIL 20 MG TAB PO SCH (08:05)
[2019-01-25] MEDS: CARVEDILOL 6.25 MG TAB PO SCH (08:06)
[2019-01-25] MEDS: AMLODIPINE 2.5 MG TAB PO SCH (08:06)
[2019-01-25] MEDS: HYDROCODONE/APAP 10/325 TAB PO PRN (08:14)
[2019-01-25] MEDS ORDERED: VITAMIN D 1000 UNIT TAB PO SCH (09:00)
[2019-01-25] MEDS ORDERED: TAMSULOSIN 0.4 MG SR CAP PO SCH (09:00)
[2019-01-25] MEDS ORDERED: PRIMIDONE 250 MG TAB PO SCH (09:00)
[2019-01-25] MEDS ORDERED: CYANOCOBALAMIN 1,000 MCG TAB PO SCH (09:00)
[2019-01-25] MEDS ORDERED: GABAPENTIN 300 MG CAP PO SCH (09:00)
--- NOTE | 2019-01-25 11:03 | P.SSS ---
Patient History Date of Service: 01/25/19 Reason for admission: COPD exacerbation History of Present Illness: Mr Mckeon is a 73 years old male with multiple medical problems, including chronic right groin wound, COPD, CAD, who became more confused last night. This morning he remain confused and has had fever. The patient has had slightly more cough than usual, with whitish/yellowish secretions. He was also slightly more SOB. His temp was 101.1F. Family gave him Tylenol was brought the patient to ER. At arrival, he was still febrile. He was also complaining of right groin secretion from his wound, but was not different than usual. No new obvious inflammatory signs on the wound area. Lab work remarkable for normal WBC count, also normal procalcitonin and lactate. CXR awaiting radiology report. Allergies No Known Allergies Allergy (Verified 10/24/17 00:11) Home Medications: Albuterol Sulfate [Proair Respiclick] 90 mcg IH Q6H PRN 01/24/19 Amitriptyline HCl 100 mg PO DAILY 01/24/19 Amlodipine [Norvasc*] 2.5 mg PO DAILY 01/24/19 Atorvastatin Calcium [Lipitor*] 10 mg PO DAILY 01/24/19 Betamethasone Valerate 15 gm TP DAILY 01/24/19 Carvedilol [Coreg*] 6.25 mg PO BID 01/24/19 Cholecalciferol (Vitamin D3) [Vitamin D3] 4,000 unit PO DAILY 01/24/19 Cyanocobalamin (Vitamin B-12) [Vitamin B-12] 1,000 mcg PO DAILY 01/24/19 Fluticasone/Vilanterol [Breo Ellipta 200-25 Mcg INH] 1 puff IH DAILY 01/24/19 Gabapentin 300 mg PO DAILY 01/24/19 Hydrocodone Bit/Acetaminophen [Hydrocodon-Acetaminophn 10-325] 1 tab PO Q6H PRN 01/24/19 Lisinopril 40 mg PO DAILY 01/24/19 Mupirocin Cream [Bactroban 2% Cream*] 15 appl TOP DAILY 01/24/19 Nystatin 100,000 unit PO DAILY 01/24/19 Omeprazole 20 mg PO DAILY 01/24/19 Primidone 250 mg PO DAILY 01/24/19 Tamsulosin [Flomax*] 0.4 mg PO DAILY 01/24/19 Tizanidine [Zanaflex*] 1 tab PO TID 01/24/19 Topiramate [Topamax] 100 mg PO BID 01/24/19 Warfarin Sodium 8 mg PO DAILY 01/24/19 fentaNYL [Fentanyl] 100 mcg TOP SEECOM 01/24/19 Clindamycin HCl 300 mg PO BID #28 capsule 01/25/19 Prednisone [Deltasone] 20 mg PO DAILY #5 tablet 01/25/19 - Past Medical/Surgical History Has patient received pneumonia vaccine in the past: Yes Diabetic: No -: CAD -: PAD -: factor 5 clotting disorder -: COPD -: Recent history of subdural hematoma -: Chronic anti coagulation for arterial disease -: Chronic pain syndrome -: Peripheral vascular disease -: History of AAA repair -: Blood clot in the groin -: Degenerative disc disease -: Cholecystectomy -: CABGx3 -: AAA repair -: Hernia repair -: subdural hematoma surgery -: valve replacement Psychosocial/ Personal History: He currently lives with his daughter, has 5 children, he does not work. - Family History Mother -: Heart disease, Hypertension Father -: Heart disease, Other (see notes) Notes: Alzheimer's - Social History Smoking Status: Never smoker Alcohol use: No CD- Drugs: No Caffeine use: Yes Place of Residence: Home Review of Systems 10-point ROS is otherwise unremarkable Physical Examination - Vital Signs Temperature: 97.9 F Blood Pressure: 181/76 Pulse: 64 Respirations: 18 Pulse Ox (%): 94 - Physical Exam General: Alert, In no apparent distress HEENT: Atraumatic, PERRLA, Mucous membr. moist/pink, EOMI, Sclerae nonicteric Neck: Supple, 2+ carotid pulse no bruit, No LAD, Without JVD or thyroid abnormality Respiratory: Clear to auscultation bilaterally, Normal air movement Cardiovascular: Regular rate/rhythm, Normal S1 S2 Gastrointestinal: Normal bowel sounds, No tenderness Musculoskeletal: No tenderness Integumentary: No rashes Neurological: Normal gait, Normal speech, Normal strength at 5/5 x4 extr, Normal tone, Normal affect Lymphatics: No axilla or inguinal lymphadenopathy - Diagnosis (Problem(s)) (1) COPD exacerbation Current Visit: Yes Status: Resolved (2) CAD (coronary artery disease) of artery bypass graft Onset Date: 12/31/17 Current Visit: No Status: Chronic Qualifiers: [place] vs. transplanted heart: [place] heart Associated angina: without angina Qualified Code(s): I25.810 - Atherosclerosis of coronary artery bypass graft(s) without angina pectoris (3) Chronic anticoagulation Onset Date: 07/14/16 Current Visit: No Status: Chronic (4) Chronic pain disorder Onset Date: 07/14/16 Current Visit: No Status: Chronic (5) Chronic renal disease Onset Date: 07/14/16 Current Visit: No Status: Chronic Qualifiers: Chronic kidney disease stage: stage 3 (moderate) Qualified Code(s): N18.3 - Chronic kidney disease, stage 3 (moderate) (6) Esophageal stricture Current Visit: No Status: Chronic (7) Factor V Leiden Onset Date: 12/31/17 Current Visit: No Status: Chronic (8) Hypertension Onset Date: 07/14/16 Current Visit: No Status: Chronic Qualifiers: Hypertension type: essential hypertension Qualified Code(s): I10 - Essential (primary) hypertension (9) Non-healing surgical wound of right groin Current Visit: No Status: Chronic Treatment Summary: Patient remained stable while here in the hospital had neb treatment here in the hospital. Had marked improvement in his breathing as well. Initial white count and pro calcitonin negative ruling out bacterial pneumonia most likely viral illness. Patient also with chronic groin wound wound cultures collected again and given clindamycin on discharge. Primary care to follow up with wound cultures here in the hospital. - Disposition Disposition: ROUTINE DISCHARGE Condition: GOOD Diet: Regular Activity: Ad payal
[2019-01-25 12:07] VITALS: BP 159/67; TEMP 97.7
[2019-01-25 13:03] VITALS: O2SAT 93
[2019-01-25] MEDS ORDERED: CEFTRIAXONE/SWI 1gm 1 GM/10 ML SYR IV SCH (21:00)
== END 2019-01-25 15:14 | disposition home or self-care (01) ==
LOC: ER 21:58 → INTOOBSV 01-24 01:29 → ERHOLD 01-24 01:29 → 4TH 01-24 07:46
PROVIDERS: ADMIT Internal Medicine; ATTEND Internal Medicine
DX: J44.1 Chronic obstructive pulmonary disease with (acute) exacerbation (principal); I25.10 Atherosclerotic heart disease of native coronary artery without angina pectoris; G89.29 Other chronic pain; I12.9 Hypertensive chronic kidney disease with stage 1 through stage 4 chronic kidney disease, or unspecified chronic kidney disease; N18.3 Chronic kidney disease, stage 3 (moderate); K22.2 Esophageal obstruction; D68.51 Activated protein C resistance; I10 Essential (primary) hypertension; T81.89XA Other complications of procedures, not elsewhere classified, initial encounter; R50.9 Fever, unspecified; Z95.1 Presence of aortocoronary bypass graft; Z79.01 Long term (current) use of anticoagulants
CPT/HCPCS: 96365; 96367; 93005; 87040 ×2; 87088; 87070; 85025 ×3; 87086; 80048 ×3; 36415 ×2; 83735; 82550; 87205; 85610; 80076; 83605; 85730; 84484; 82553; 83690; 84145; 87804 ×2; 72192; 71045; 94640; 96375; 99285; 96366; J0456; J0696 ×2; J7030 ×2; J2930; G0378 ×2; 81003; 81015

== ENCOUNTER 2020-04-25 18:15 | Emergency (ER) | payer OTHER ==
--- OUTSIDE RECORDS SUMMARY | 2020-04-25 18:18 | XMS REPORT | Clinical Summary ---
:1945 Author Organization [facility] Address [address] [place] [address] Care Team Providers Name Role Phone Jono Primary Care Provider Unavailable Allergies No Known Allergies Medications Medication Sig Dispensed Refills Start End Date Status Date warfarin sodium Take 7 mg by 0 A ctive (WARFARIN ORAL) mouth daily. CHOLECALCIFEROL, Take by mouth 0 Active VITAMIN D3, ORAL daily. polyethylene Take by mouth 0 Act emanuel glycol (GLYCOLAX) daily as needed. 17 gram/dose powder albuterol (PROAIR Inhale 1 puff. 0 Active HFA,PROVENTIL HFA,VENTOLIN HFA) 90 mcg/actuation inhaler amitriptyline nightly. 0 Active (ELAVIL) 75 MG 9 tablet amLODIPine every morning. 0 Acti ve (NORVASC) 2.5 mg 9 tablet clonIDINE Take 0.1 mg by 0 Activ e (CATAPRES) 0.1 MG mouth as needed. tablet fentaNYL Every 48 hrs 0 Active (DURAGESIC) 100 8 mcg/hr gabapentin nightly. 0 Active (NEURONTIN) 300 9 mg capsule HYDROcodone-aceta 4 times daily as 0 Active minophen (NORCO) needed. 8 10-325 mg per tablet lisinopril Take 40 mg by 0 Activ e (PRINIVIL) 40 mg mouth every tablet morning. primidone Take 250 mg by 0 Activ e (MYSOLINE) 250 MG mouth nightly. 8 tablet tiZANidine Take 4 mg by 3 Active (ZANAFLEX) 4 MG mouth 4 (four) 9 tablet times a day. topiramate Take 100 mg by 0 Acti ve (TOPAMAX) 100 MG mouth every tablet morning. atorvastatin Take 10 mg by 0 05/27/20 Dis continued (LIPITOR) 10 MG mouth. 8 19 tablet tamsulosin Take 0.4 mg by 0 05/27/20 Disc ontinued (FLOMAX) 0.4 mg mouth. 8 19 capsule aspirin-calcium Take 81 mg by 0 05/27/20 Discontinued carbonate 81 mouth. 19 mg-300 mg calcium(777 mg) tablet omeprazole Take 20 mg by 0 06/08/20 Disco ntinued (PriLOSEC) 20 MG mouth every 19 capsule morning. aspirin (ECOTRIN) Take 81 mg by 0 06/08/20 Discontinued 81 MG enteric mouth daily. 19 coated tablet enoxaparin Inject 0.8 mL 11 Syringe 0 06/17/20 Disc ontinued (LOVENOX) 80 (80 mg total) 9 19 (St op Taking at mg/0.8 mL syringe under the skin 2 Discharge) (two) times a day for 11 doses. Follow instructions provided by RN ferrous sulfate Take 1 tablet 60 tablet 0 07/17/20 325 (65 FE) MG (325 mg total) 9 19 tablet by mouth 2 (two) times a day with meals for 30 days. carvedilol Take 1 tablet 60 tablet 0 07/17/20 Expir ed (COREG) 3.125 MG (3.125 mg total) 9 19 tablet by mouth 2 (two) times a day for 30 days. atorvastatin Take 1 tablet 30 tablet 0 07/17/20 Exp ired (LIPITOR) 40 MG (40 mg total) by 9 19 tablet mouth nightly for 30 days. ascorbic acid, Take 1 tablet 30 tablet 0 07/17/20 E xpired vitamin C, (500 mg total) 9 19 (VITAMIN C) 500 by mouth daily MG tablet for 30 days. amoxicillin Take 1 capsule 15 capsule 0 06/22/20 Ex pired (AMOXIL) 500 MG (500 mg total) 9 19 capsule by mouth 3 (three) times a day for 5 days. 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 We discussed peripheral arterial disease, its etiology and need for medical management be contributing risk factors . We discussed natural history i ncluding claudication progressing to res t pain, ulcerations and possibly limb loss. We discussed treatment options including medical therapy, endovascular therapy with angioplasty or stenting, and surgi skinny bypass. We discussed trying to avoid amputation and the need to go in a stepwise fashion. We discussed potential complications including worsening of disease, healing complications, recurrent nature of this problem and need for additional therapies in the future. 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 -gave the option to remove graft today s darlene it is completely infected as seen on PET scan, but pt will come back sometime next week Plan: -Plan for graft explantation VTE (venous thromboembolism) 02/23/2019 Last Assessment & Plan: Plan: Bilateral LE vein mapping Resolved Problems Problem Noted Date Resolved Date Infection and inflammatory reaction due to vascular device, 06/02/2019 06/17/2019 implant, and graft Overview: Added automatically from request for carli rivero [id number] Encounters Date Type Specialty Care Team Description 07/04/2019 Telephone Cardiovascular Vilma Sousa RN 06/10/2019 Refill Cardiovascular Rusty Moody MD 06/08/2019 Surgery Cardiothoracic Rusty Moody EXPLANTATION OF Surgery MD Camron RIGHT FEMORAL S TENT GRAFT 06/08/2019 Anesthesia Event Cardiothoracic [place], Surgery Benita Ladd MD 06/08/2019 - Hospital Encounter General Internal Rusty Moody Infe ction and 06/17/2019 Medicine MD Camron inflammatory Cote, Denzel reaction due t o MD Maritza vascular device , implant, and gr aft, initial encount er (FORM[facility]LY [facility]) 06/02/2019 Orders Only Cardiovascular Vilma Sousa, Pre-op ashley nelson RN (Primary Dx) 06/02/2019 Orders Only Cardiovascular Vilma Sousa, Infection and RN inflammatory reaction due to vascular device , implant, and gr aft, initial encount er ([facility]) (Primary Dx) 06/02/2019 Orders Only Cardiovascular Vilma Sousa, RN 06/01/2019 Orders Only Cardiovascular Vilma Sousa, CHRYSTAL 05/27/2019 Hospital Encounter Radiology Rusty Moody Pre-op e valuation MD Camron 05/27/2019 Pre-Admit Testing Pre-Admission Testing Rusty Moody Preop testing Appointment MD Camron (Primary Dx) 05/27/2019 Office Visit Cardiovascular Rusty Moody Pre-op evalu ation (Primary Dx); MD Camron PAD (peripheral artery disease) ([facility]) 05/02/2019 Hospital Encounter Procedural Cardiology Rusty Moody Non-healing wound MD Camron of lower extrem ity, right, initial encounter 04/29/2019 Telephone Procedural Cardiology Darcy Hannah, CHRYSTAL after 04/25/2019 Immunizations Name Administration Dates Next Due FLUZONE HIGH-DOSE PF 06/17/2019 Social History Tobacco Use Types Packs/Day Years Used Date Former Smoker 2.5 50 Quit: 2010 Smokeless Tobacco: Never Used Alcohol Use Drinks/Week oz/Week Comments Not Currently quit ~2003 Sex Assigned at Date Recorded Not on file Job Start Date Occupation Industry Not on file Not on file Not on file Travel History Travel Start Travel End No recent travel history available. Last Filed Vital Signs Vital Sign Reading Time Taken Comments Blood Pressure 121/59 06/17/2019 12:00 PM [employer] Pulse 65 06/17/2019 12:00 PM [employer] Temperature 36.8 C (98.3 F) 06/17/2019 12:00 PM [employer] Respiratory Rate 14 06/17/2019 12:00 PM [employer] Oxygen Saturation 95% 06/17/2019 12:00 PM [employer] Inhaled Oxygen Concentration - - Weight 75 kg (165 lb 4.8 oz) 06/17/2019 5:00 AM [employer] Height 170.2 cm (5' 7") 05/27/2019 4:12 PM CDT Body Mass Index 25.89 05/27/2019 4:12 PM CDT Plan of Treatment Health Maintenance Due Date Last Done Comments SHINGLES VACCINES (#1) 1993 65+ PNEUMOCOCCAL VACCINE (2 of 2 - PPSV23) 02/22/200805/26 INFLUENZA VACCINE 04/10/2020 06/17/2019 Implants Implanted Type Area Guest Service Team Leader Device Identifier Shelf Exp iration Model / Serial Date / Lot Valve Valve Heart Description:TAVR 2017 Procedures Procedure Name Priority Date/Time Associated Diagnosis Comme nts ESTIMATED GFR Routine 06/17/2019 5:00 Results fo r this AM [employer] procedure are i n the results section. BASIC METABOLIC PANEL Routine 06/17/2019 5:00 Re sults for this AM [employer] procedure are i n the results section. HC COMPLETE BLD COUNT Routine 06/17/2019 5:00 Re sults for this W/AUTO DIFF AM [employer] procedure are i n the results section. PROTHROMBIN TIME WITH Routine 06/17/2019 5:00 Re sults for this INR AM [employer] procedure are i n the results section. HC COMPLETE BLD COUNT Routine 06/16/2019 6:40 Re sults for this W/AUTO DIFF AM [employer] procedure are i n the results section. PROTHROMBIN TIME WITH Routine 06/16/2019 6:40 Re sults for this INR AM [employer] procedure are i n the results section. ESTIMATED GFR Routine 06/16/2019 4:00 Results fo r this AM [employer] procedure are i n the results section. BASIC METABOLIC PANEL Routine 06/16/2019 4:00 Re sults for this AM [employer] procedure are i n the results section. HEMOGLOBIN & Routine 06/15/2019 10:30 Results for this HEMATOCRIT AM [employer] procedure are i n the results section. HC COMPLETE BLD COUNT Routine 06/15/2019 7:00 Re sults for this W/AUTO DIFF AM [employer] procedure are i n the results section. PROTHROMBIN TIME WITH Routine 06/15/2019 7:00 Re sults for this INR AM [employer] procedure are i n the results section. ANTI XA, Routine 06/15/2019 7:00 Results for this UNFRACTIONATED AM [employer] procedure are in the results section. ESTIMATED GFR Routine 06/15/2019 4:00 Results fo r this AM [employer] procedure are i n the results section. BASIC METABOLIC PANEL Routine 06/15/2019 4:00 Re sults for this AM [employer] procedure are i n the results section. PREPARE RBC Routine 06/14/2019 1:27 Results for this PM [employer] procedure are i n the results section. ANTIBODY Routine 06/14/2019 1:27 Results for this IDENTIFICATION PM [employer] procedure are in the results section. TYPE AND SCREEN Routine 06/14/2019 1:27 Results for this PM [employer] procedure are i n the results section. HC COMPLETE BLD COUNT Routine 06/14/2019 8:45 Re sults for this W/AUTO DIFF AM [employer] procedure are i n the results section. ANTI XA, Routine 06/14/2019 5:30 Results for this UNFRACTIONATED AM [employer] procedure are in the results section. HC COMPLETE BLD COUNT Routine 06/14/2019 5:30 Re sults for this W/AUTO DIFF AM [employer] procedure are i n the results section. PROTHROMBIN TIME WITH Routine 06/14/2019 5:30 Re sults for this INR AM [employer] procedure are i n the results section. ESTIMATED GFR Routine 06/14/2019 4:00 Results fo r this AM [employer] procedure are i n the results section. MAGNESIUM LEVEL Routine 06/14/2019 4:00 Results for this AM [employer] procedure are i n the results section. BASIC METABOLIC PANEL Routine 06/14/2019 4:00 Re sults for this AM [employer] procedure are i n the results section. ANTI XA, Timed 06/13/2019 11:30 Results for this UNFRACTIONATED AM [employer] procedure are in the results section. PROTHROMBIN TIME WITH Routine 06/13/2019 5:30 Re sults for this INR AM [employer] procedure are i n the results section. HC COMPLETE BLD COUNT Routine 06/13/2019 5:30 Re sults for this W/AUTO DIFF AM [employer] procedure are i n the results section. ANTI XA, Routine 06/13/2019 5:30 Results for this UNFRACTIONATED AM [employer] procedure are in the results section. ANTI XA, Routine 06/12/2019 10:30 Results for this UNFRACTIONATED PM [employer] procedure are in the results section. ANTI XA, Routine 06/12/2019 2:29 Results for this UNFRACTIONATED PM [employer] procedure are in the results section. ESTIMATED GFR Routine 06/12/2019 5:30 Results fo r this AM [employer] procedure are i n the results section. HC COMPLETE BLD COUNT Routine 06/12/2019 5:30 Re sults for this W/AUTO DIFF AM [employer] procedure are i n the results section. ANTI XA, Routine 06/12/2019 5:30 Results for this UNFRACTIONATED AM [employer] procedure are in the results section. PHOSPHORUS LEVEL Routine 06/12/2019 5:30 Results for this AM [employer] procedure are i n the results section. MAGNESIUM LEVEL Routine 06/12/2019 5:30 Results for this AM [employer] procedure are i n the results section. PROTHROMBIN TIME WITH Routine 06/12/2019 5:30 Re sults for this INR AM [employer] procedure are i n the results section. PARTIAL THROMBOPLASTIN Routine 06/12/2019 5:30 R esults for this TIME (PTT) AM [employer] procedure are i n the results section. BASIC METABOLIC PANEL Routine 06/12/2019 5:30 Re sults for this AM [employer] procedure are i n the results section. PROTHROMBIN TIME WITH Routine 06/11/2019 11:00 Re sults for this INR PM CDT procedure are i n the results section. PARTIAL THROMBOPLASTIN Routine 06/11/2019 11:00 R esults for this TIME (PTT) PM CDT procedure are i n the results section. ANTI XA, Routine 06/11/2019 11:00 Results for this UNFRACTIONATED PM CDT procedure are in the results section. ANTI XA, Routine 06/11/2019 5:22 Results for this UNFRACTIONATED PM CDT procedure are in the results section. ANTI XA, STAT 06/11/2019 9:40 Results for this UNFRACTIONATED AM CDT procedure are in the results section. HEMOGLOBIN & STAT 06/11/2019 9:40 Results for this HEMATOCRIT AM CDT procedure are i n the results section. ESTIMATED GFR Routine 06/11/2019 7:00 Results fo r this AM CDT procedure are i n the results section. HC COMPLETE BLD COUNT Routine 06/11/2019 7:00 Re sults for this W/AUTO DIFF AM CDT procedure are i n the results section. ANTI XA, Routine 06/11/2019 7:00 Results for this UNFRACTIONATED AM CDT procedure are in the results section. PARTIAL THROMBOPLASTIN Routine 06/11/2019 7:00 R esults for this TIME (PTT) AM CDT procedure are i n the results section. PROTHROMBIN TIME WITH Routine 06/11/2019 7:00 Re sults for this INR AM CDT procedure are i n the results section. BASIC METABOLIC PANEL Routine 06/11/2019 7:00 Re sults for this AM CDT procedure are i n the results section. ANTI XA, Routine 06/10/2019 10:00 Results for this UNFRACTIONATED PM CDT procedure are in the results section. PARTIAL THROMBOPLASTIN Routine 06/10/2019 10:00 R esults for this TIME (PTT) PM CDT procedure are i n the results section. ANTI XA, Timed 06/10/2019 2:01 Results for this UNFRACTIONATED PM CDT procedure are in the results section. OCCULT BLOOD, STOOL Timed 06/10/2019 1:50 Resu lts for this PM CDT procedure are i n the results section. IONIZED CALCIUM Routine 06/10/2019 11:07 Results for this AM CDT procedure are i n the results section. HEMOGLOBIN & Routine 06/10/2019 11:07 Results for this HEMATOCRIT AM CDT procedure are i n the results section. HC COMPLETE BLD COUNT Routine 06/10/2019 4:30 Re sults for this W/AUTO DIFF AM CDT procedure are i n the results section. PROTHROMBIN TIME WITH Routine 06/10/2019 4:30 Re sults for this INR AM CDT procedure are i n the results section. ANTI XA, Routine 06/10/2019 4:30 Results for this UNFRACTIONATED AM CDT procedure are in the results section. ESTIMATED GFR Routine 06/10/2019 4:00 Results fo r this AM CDT procedure are i n the results section. BASIC METABOLIC PANEL Routine 06/10/2019 4:00 Re sults for this AM CDT procedure are i n the results section. ANTI XA, Routine 06/09/2019 9:52 Results for this UNFRACTIONATED AM CDT procedure are in the results section. ESTIMATED GFR Routine 06/09/2019 3:00 Results fo r this AM CDT procedure are i n the results section. ANTI XA, Routine 06/09/2019 3:00 Results for this UNFRACTIONATED AM CDT procedure are in the results section. VANCOMYCIN LEVEL, Routine 06/09/2019 3:00 Result s for this RANDOM AM CDT procedure are i n the results section. MAGNESIUM LEVEL Routine 06/09/2019 3:00 Results for this AM CDT procedure are i n the results section. BASIC METABOLIC PANEL Routine 06/09/2019 3:00 Re sults for this AM CDT procedure are i n the results section. HC COMPLETE BLD COUNT Routine 06/09/2019 3:00 Re sults for this W/AUTO DIFF AM CDT procedure are i n the results section. XR CHEST 1 VW PORTABLE Routine 06/08/2019 11:18 R esults for this AM CDT procedure are i n the results section. AFB CULTURE Timed 06/08/2019 11:02 Results for this AM CDT procedure are i n the results section. FUNGUS CULTURE Timed 06/08/2019 11:02 Infection and Results for this AM CDT inflammatory procedure are i n reaction due to the results vascular device, section. implant, and graft, initial encounter (HCC) ANAEROBIC CULTURE Timed 06/08/2019 11:02 Infection and Resul ts for this AM CDT inflammatory procedure are i n reaction due to the results vascular device, section. implant, and graft, initial encounter (HCC) CONSULT TO OSTOMY CARE Routine 06/08/2019 11:01 NURSE AM CDT AFB CULTURE Timed 06/08/2019 10:58 Infection and Results fo r this AM CDT inflammatory procedure are i n reaction due to the results vascular device, section. implant, and graft, initial encounter (HCC) AEROBIC CULTURE Timed 06/08/2019 10:58 Infection and Results for this AM CDT inflammatory procedure are i n reaction due to the results vascular device, section. implant, and graft, initial encounter (HCC) FUNGUS CULTURE Timed 06/08/2019 10:58 Infection and Results for this AM CDT inflammatory procedure are i n reaction due to the results vascular device, section. implant, and graft, initial encounter (HCC) SODIUM LEVEL, SYRINGE STAT 06/08/2019 10:12 Re sults for this AM CDT procedure are i n the results section. ARTERIAL BLOOD GAS, STAT 06/08/2019 10:12 Resu lts for this CORRECTED AM CDT procedure are i n the results section. POTASSIUM, SYRINGE STAT 06/08/2019 10:12 Resul ts for this AM CDT procedure are i n the results section. HEMOGLOBIN, SYRINGE STAT 06/08/2019 10:12 Resu lts for this AM CDT procedure are i n the results section. IONIZED CALCIUM, STAT 06/08/2019 10:12 Results for this ARTERIAL AM CDT procedure are i n the results section. GLUCOSE LEVEL, SYRINGE STAT 06/08/2019 10:12 R esults for this AM CDT procedure are i n the results section. GRAM STAIN Timed 06/08/2019 10:02 Results for this AM CDT procedure are i n the results section. FUNGUS SMEAR Timed 06/08/2019 10:02 Results for this AM CDT procedure are i n the results section. AEROBIC CULTURE Timed 06/08/2019 10:02 Infection and Results for this AM CDT inflammatory procedure are i n reaction due to the results vascular device, section. implant, and graft, initial encounter (HCC) AFB STAIN Timed 06/08/2019 10:02 Infection and Results fo r this AM CDT inflammatory procedure are i n reaction due to the results vascular device, section. implant, and graft, initial encounter (HCC) ANAEROBIC CULTURE Timed 06/08/2019 9:58 Infection and Resul ts for this AM CDT inflammatory procedure are i n reaction due to the results vascular device, section. implant, and graft, initial encounter (HCC) CENTRAL LINE Routine 06/08/2019 9:10 Results for this AM CDT procedure are i n the results section. ARTERIAL LINE Routine 06/08/2019 9:09 Results fo r this AM CDT procedure are i n the results section. ANESTHESIA INTUBATION Routine 06/08/2019 9:08 Re sults for this AM CDT procedure are i n the results section. SODIUM LEVEL, SYRINGE STAT 06/08/2019 9:01 Re sults for this AM CDT procedure are i n the results section. ARTERIAL BLOOD GAS, STAT 06/08/2019 9:01 Resu lts for this CORRECTED AM CDT procedure are i n the results section. POTASSIUM, SYRINGE STAT 06/08/2019 9:01 Resul ts for this AM CDT procedure are i n the results section. HEMOGLOBIN, SYRINGE STAT 06/08/2019 9:01 Resu lts for this AM CDT procedure are i n the results section. IONIZED CALCIUM, STAT 06/08/2019 9:01 Results for this ARTERIAL AM CDT procedure are i n the results section. GLUCOSE LEVEL, SYRINGE STAT 06/08/2019 9:01 R esults for this AM CDT procedure are i n the results section. ACTIVATED CLOTTING Routine 06/08/2019 8:01 Resul ts for this TIME AM CDT procedure are i n the results section. HEMOGLOBIN, SYRINGE STAT 06/08/2019 7:22 Resu lts for this AM CDT procedure are i n the results section. SODIUM LEVEL, SYRINGE STAT 06/08/2019 7:22 Re sults for this AM CDT procedure are i n the results section. GLUCOSE LEVEL, SYRINGE STAT 06/08/2019 7:22 R esults for this AM CDT procedure are i n the results section. POTASSIUM, SYRINGE STAT 06/08/2019 7:22 Resul ts for this AM CDT procedure are i n the results section. E ANTIGEN PATIENT STAT 06/08/2019 6:36 Result s for this TYPING AM CDT procedure are i n the results section. ANTIBODY STAT 06/08/2019 6:36 Results for this IDENTIFICATION AM CDT procedure are in the results section. PARTIAL THROMBOPLASTIN STAT 06/08/2019 6:36 R esults for this TIME (PTT) AM CDT procedure are i n the results section. PROTHROMBIN TIME WITH STAT 06/08/2019 6:36 Re sults for this INR AM CDT procedure are i n the results section. TYPE AND SCREEN STAT 06/08/2019 6:36 Results for this AM CDT procedure are i n the results section. XR CHEST 2 VW Routine 05/27/2019 4:50 Pre-op evaluation Resul ts for this PM CDT procedure are i n the results section. ECG PRE/POST OP Routine 05/27/2019 4:29 Preop testing Results for this PM CDT procedure are i n the results section. ESTIMATED GFR Routine 05/27/2019 4:21 Results fo r this PM CDT procedure are i n the results section. PROTHROMBIN TIME WITH Routine 05/27/2019 4:21 Preop testing R esults for this INR PM CDT procedure are i n the results section. PARTIAL THROMBOPLASTIN Routine 05/27/2019 4:21 Preop testing Results for this TIME (PTT) PM CDT procedure are i n the results section. BASIC METABOLIC PANEL Routine 05/27/2019 4:21 Preop testing R esults for this PM CDT procedure are i n the results section. HC COMPLETE BLD COUNT Routine 05/27/2019 4:21 Preop testing R esults for this W/AUTO DIFF PM CDT procedure are i n the results section. CARDIAC PET Routine 05/02/2019 3:05 Non-healing wound of ENDOCARDITIS\\INFECTION PM CDT lower extremity, DEVICE ASSESSMENT right, initial encounter after 04/25/2019 Results Estimated GFR (06/17/2019 5:00 AM [employer])Only the most recent of9 resultswithin the time period is included. Estimated GFR 53 (A) mL/min/1.73 [facility] Comment: [facility] Catergory Units Interpretation G1 >=90 Normal or high G2 60-89 Mildly decreased G3a 45-59 Mildly to moderately decreas ed G3b 30-44 Moderately to severely decre ased G4 15-29 Severely decreased G5 <15 Kidney failure The eGFR was calculated using the Chronic Kidney Disea se Epidemiology Collaboration (CKD-EPI) equation. Interpretation is based on recommendations of the National Kidney Foundation-Kidney Disease Outcomes Kevin lity Initiative (NKF-KDOQI) published in 2014. Specimen Plasma specimen Performing Organization Address City/State/Zipcode Phone Number [facility] DEPARTMENT OF PATHOLOGY AND [address] [place] [address] [phone] [facility] [address] [place] [phone] Prothrombin time with INR (06/17/2019 5:00 AM [employer])Only the most recent of11 resultswithin the time period is included. Prothrombin time 25.6 (H) 11.5 - 14.5 [facility] INR 2.4 [place] Comment: [facility] International Normalized Ratio (INR) is a [facility] monitoring tool for patients who are stable on oral anticoagulant therapy. An INR of 2.0-3.0 is suggested for deep vein thrombosis/pulmonary embolism. Specimen Blood Performing Organization Address City/[facility]/Zipcode Phone Number [facility] DEPARTMENT OF PATHOLOGY AND [address] [place] [address] [phone] [address] CBC with platelet and differential (06/17/2019 5:00 AM [employer])Only the most recent of11 resultswithin the time period is included. Pathologist [facility] WBC 6.79 4.50 - 11.00 [facility] k/uL [facility] RBC 2.67 (L) 4.40 - 6.00 [facility] m/[facility] HGB 7.9 (L) 14.0 - 18.0 [facility] g/dL [facility] HCT 25.5 (L) 41.0 - 51.0 % [facility] MCV 95.5 82.0 - 100.0 [facility] MCH 29.6 27.0 - 34.0 pg [facility] MCHC 31.0 31.0 - 37.0 [facility]/dL [facility] RDW - SD 55.5 (H) 37.0 - 55.0 fL [facility] MPV 10.5 8.8 - 13.2 fL [facility] Platelet count 234 150 - 400 k/uL [facility] Nucleated RBC 0.00 /100 WBC [facility] [facility] Neutrophils 64.5 39.0 - 69.0 % [facility] Lymphocytes 17.7 (L) 25.0 - 45.0 % [facility] Monocytes 11.3 (H) 0.0 - 10.0 % [facility] Eosinophils 4.6 0.0 - 5.0 % [facility] Basophils 0.3 0.0 - 1.0 % [facility] Immature granulocytes 1.6 0.0 - 1.0 % [facility] (H)Comment: HOSPITAL "Immature granulocytes" (promyelocytes , myelocytes, metamyelocytes ) Specimen Blood Performing Organization Address City/[facility] Phone Number [facility] OF PATHOLOG[facility] AND [address] [place] [phone] [place] [phone] Basic metabolic panel (06/17/2019 5:00 AM KICK PLATE INSTALLER)Only the most recent of9 results within the time period is included. [facility] nature Sodium 139 135 - 148 mEq/L [facility] Potassium 4.4 3.5 - 5.0 mEq/L [facility] Chloride 101 98 - 112 mEq/L [facility] CO2 28 24 - 31 mEq/L [facility] Anion gap 10@ANIO 7 - 15 mEq/L [facility] BUN 11 8 - 23 mg/dL [facility] Creatinine 1.29 (H) 0.70 - 1.20 mg/dL [facility] Glucose 99 65 - 99 mg/dL [facility] Calcium 8.3 (L) 8.8 - 10.2 mg/dL [facility] Specimen Plasma specimen Performing Organization Address [place]/[facility] Phone Number [facility] DEPARTMENT OF PATHOLOGY AND [address] [place] [address] [phone] [address] Hemoglobin & hematocrit (06/15/2019 10:30 AM KICK PLATE INSTALLER)Only the most recent of3 resultswithin the time period is included. [facility] Sig nature HGB 8.3 (L) 14.0 - 18.0 g/dL [facility] HCT 26.2 (L) 41.0 - 51.0 % [facility] Specimen Blood Performing Organization Address City/[facility] Phone Number [facility] DEPARTMENT OF PATHOLOGY AND [address] [place] [address] [phone] [address] Anti Xa, unfractionated (06/15/2019 7:00 AM KICK PLATE INSTALLER)Only the most recent of16 resultswithin the time period is included. Anti Xa, <0.10 (L)Comment: 0.30 - 0.70 [place] unfractionated Therapeutic Range: U/mL [facility] 0.30 - 0.70 U/mL HOSPITAL Specimen Blood Performing Organization Address City/[facility] Phone Number [facility] DEPARTMENT OF PATHOLOGY AND [address] [place] [address] Antibody identification (06/14/2019 1:27 PM KICK PLATE INSTALLER)Only the most recent of2 resultswithin the time period is included. Pathologist Sig nature Antibody ID POS, Anti-E [facility] Specimen Performing Organization Address [place]/[facility] Phone Number [facility] OF PATHOLOGY AND [address] [place] [address] Prepare RBC, 2 Units (06/14/2019 1:27 PM KICK PLATE INSTALLER) Product name Apheresis Red Cell [facility] #2 [facility] Unit number [id number] [facility] Product [facility] [id number] [facility] Dispense status Transfused [facility] Blood expiration date [facility] Blood type code 5100 [facility] Blood type O POSITIVE [facility] Compatibility Compatible [facility] Product name Apheresis Red Cell [place] [address] #2 [facility] Unit number [id number] [facility] Product code [id number] [facility] Dispense status Transfused [facility] Blood expiration date [facility] Blood type [facility] 5100 [facility] Blood type O POSITIVE [facility] Compatibility Compatible [facility] Specimen Blood Performing Organization Address [place]/[facility] Phone Number [facility] OF PATHOLOGY AND [address] [place] [address] Type and screen (06/14/2019 1:27 PM KICK PLATE INSTALLER)Only the most recent of2 resultswithin the time period is included. Pathologist Sig nature ABO grouping O [facility] Rh type POS [facility] Antibody screen (gel) POS [facility] Specimen Blood Performing Organization Address [place]/[facility] Phone Number [facility]MENT OF PATHOLOGY AND [address] [place] [address] [phone] [address] Magnesium level (06/14/2019 4:00 AM KICK PLATE INSTALLER)Only the most recent of3 resultswithin the time period is included. Pathologist Sig nature Magnesium 1.9 1.6 - 2.4 mg/dL [facility] Specimen Plasma specimen Performing Organization Address [place]/[facility] Phone Number [facility] DE[facility]MENT OF PATHOLOGY AND [address] [place] [address] [phone] [address] Partial thromboplastin time, activated (06/12/2019 5:30 AM KICK PLATE INSTALLER)Only the most recent of6 resultswithin the time period is included. Pathologist [facility] PTT >250.0 (HH) 23.0 - 36.0 [facility] Comment: [facility] PTT therapeutic range for unfractionated heparin is 61.0-112.0 seconds which corresponds to Anti-Xa 0.3-0.7 U/ml. Specimen Blood Performing Organization Address [facility] Phone Number [facility] DE[facility] OF PATHOLOGY AND [address] [place] [phone] Phosphorus level (06/12/2019 5:30 AM KICK PLATE INSTALLER) Pathologist Sig nature Phosphorus 2.6 2.4 - 4.5 mg/dL [facility] Specimen Plasma specimen Performing Organization Address [place]/[facility] Phone Number [facility] PATHOLOGY AND [address] [place] [address] [phone] [address] Occult blood, stool (06/10/2019 1:50 PM CDT) Pathologist [facility] Occult blood, Negative for occult blood. [place] [facility] stool Comment: HOSPITAL Specimen Information Specimen Source: Stool Specimen Site: Preserved Specimen Stool - Preserved Performing Organization Address [place]/[facility] Phone Number [facility] DEPARTMENT OF PATHOLOGY AND [address] [place], [place] [address] [place] [phone] Ionized calcium (06/10/2019 11:07 AM CDT) Pathologist Sig nature pH 7.42 [facility] Ionized calcium 1.12 1.11 - 1.32 mmol/L [facility] Specimen Plasma specimen Performing Organization Address City/[facility] Phone Number [facility] DEPARTMENT OF PATHOLOGY AND [address] [place] [address] [phone] [address] Vancomycin level, random (06/09/2019 3:00 AM CDT) Pathologist Sig nature Vancomycin, random 8.4 ug/mL [facility] Specimen Serum Performing Organization Address [facility] Phone Number [facility] DE[facility]MENT OF PATHOLOGY AND [address] [place] [phone] 0 [facility] [address] [place] [phone] XR Chest 1 Vw Portable (06/08/2019 11:18 AM CDT) Specimen Narrative Performed At EXAMINATION: XR CHEST 1 VW PORTABLE [facility] CLINICAL HISTORY: Confirm new central line placement COMPARISON: May 27 IMPRESSION: 1. Right IJ line tip is in the SVC. Ther e is no visible pneumothorax. 2. The heart and pulmonary vasculature are within norm al limits. There is no confluent fluid or acute osseous p athology. [facility]-[id number] Procedure Note Hm Interface, Radiology Results Incoming - 06/08/2019 11:35 AM CDT EXAMINATION: XR CHEST 1 VW PORTABLE CLINICAL HISTORY: Confirm new central l ine placement COMPARISON: May 27 IMPRESSION: 1. Right IJ line tip is in the SVC. Ther e is no visible pneumothorax. 2. The heart and pulmonary vasculature a re within normal limits. There is no confluent fluid or acute osseous pathology. [facility]-[id number] Performing Organization Address [place]/[facility] Phone Number [facility] [address] [place] [phone] AFB culture (06/08/2019 11:02 AM CDT)Only the most recent of2 resultswithin the time period is included. AFB culture No growth after 6 weeks of incubation. SHELLIE CHAVEZ isolate Comment: HOSPITAL Specimen Information Specimen Source: Tissue Specimen Site: Tissue Femur Specimen Tissue - Tissue Performing Organization Address [place]/[facility]/Zipcode Phone Number [facility] DEPARTMENT OF PATHOLOGY AND [address] [place] [phone] [place] [address] Fungus culture (06/08/2019 11:02 AM CDT)Only the most recent of2 resultswithin the time period is included. Fungus culture No growth after 4 weeks of incubation. WAQAR NURIST isolate Comment: HOSPITAL Specimen Information Specimen Source: Tissue Specimen Site: Tissue Femur Specimen Tissue - Tissue Performing Organization Address City/[facility]/Zipcode Phone Number [facility] DEPARTMENT OF PATHOLOGY AND [address] [place] [address] [place] [phone] Anaerobic culture (06/08/2019 11:02 AM CDT)Only the most recent of2 results within the time period is included. Anaerobic culture No anaerobic organisms isolated. NIYA CHAVEZ isolate Comment: HOSPITAL Specimen Information Specimen Source: Tissue Specimen Site: Tissue Femur Specimen Tissue - Tissue Performing Organization Address [place]/[facility] Phone Number [facility] DEPARTMENT OF PATHOLOGY AND [address] [place] [phone] [place] [address] Aerobic culture (06/08/2019 10:58 AM CDT)Only the most recent of2 resultswithin the time period is included. Aerobic culture Enterococcus faecalis WAQAR Canales isolate Recovered in Broth only: HOSPITAL susceptibility to follow Enterococcus susceptible to high levels of Gentamicin. Susceptibility results indicate synergy with Penicilli ns and Vancomycin. This organism is Vancomycin Sensitive. (A) Comment: Specimen Information Specimen Source: Implant Specimen Site: Graft Specimen Implant - Graft Organism Antibiotic Method Susceptibility Enterococcus faecalis Ampicillin JOSE 1 mcg/mL: Susceptible Enterococcus faecalis Aztreonam JOSE mcg/mL: R esistant Enterococcus faecalis Ceftazidime JOSE mcg/mL: R esistant Enterococcus faecalis Ceftriaxone JOSE mcg/mL: R esistant Enterococcus faecalis Cefuroxime Sodium JOSE mcg/mL: Resistant Enterococcus faecalis Cefepime JOSE mcg/mL: R esistant Enterococcus faecalis Minocycline JOSE >8 mcg/mL: Resistant Enterococcus faecalis Nalidixic Acid JOSE mcg/mL: R esistant Enterococcus faecalis Vancomycin JOSE 1 mcg/mL: Susceptible Performing Organization Address [place]/[facility] Phone Number [facility]MENT OF PATHOLOGY AND [address] [place] [phone] Sodium level, syringe (06/08/2019 10:12 AM CDT)Only the most recent of3 results within the time period is included. Pathologist Sig nature Sodium, syringe 135 135 - 148 mEq/L [facility] Specimen Blood Performing Organization Address [place]/[facility] Phone Number [facility] DEPARTMENT OF PATHOLOGY AND [address] [place] [phone] Potassium, syringe (06/08/2019 10:12 AM CDT)Only the most recent of3 results within the time period is included. Pathologist Sig nature Potassium, syringe 4.0 3.5 - 5.0 mEq/L [facility] Specimen Blood Performing Organization Address [facility] Phone Number [facility] DEPARTMENT OF PATHOLOGY AND [address] [place] [address] Ionized calcium, arterial (06/08/2019 10:12 AM CDT)Only the most recent of2 resultswithin the time period is included. Pathologist Sig nature Ionized calcium, 1.16 1.11 - 1.32 [facility] arterial mmol/L HOSPITAL Specimen Blood Performing Organization Address [facility] Phone Number [facility] DE[facility]MENT OF PATHOLOGY AND [address] [place] [phone] Hemoglobin, syringe (06/08/2019 10:12 AM CDT)Only the most recent of3 results within the time period is included. Pathologist Sig nature Hemoglobin, syringe 10.4 (L) 14.0 - 18.0 g/dL [facility] Specimen Blood Performing Organization Address [place]/[facility] Phone Number [facility] DEPARTMENT OF PATHOLOGY AND [address] [place] [phone] [place] [phone] Glucose level, syringe (06/08/2019 10:12 AM CDT)Only the most recent of3 results within the time period is included. Pathologist Sig nature Glucose, syringe 93 65 - 99 mg/dL [facility] Specimen Blood Performing Organization Address City/[facility] Phone Number [facility] DEPARTMENT OF PATHOLOGY AND [address] [place] [address] [phone] [address] Arterial blood gas, corrected (06/08/2019 10:12 AM CDT)Only the most recent of2 resultswithin the time period is included. Pathologist Sig nature pH, arterial 7.36 7.35 - 7.45 [facility] pCO2, arterial 48 (H) 35 - 45 mmHg [facility] pO2, arterial 304 (H) 80 - 90 mmHg [facility] Temperature, Celsius 37.0 Degrees C [facility] O2 saturation, 100 95 - 100 % [facility] arterial HOSPITAL pH, arterial 7.36 [facility] pCO2, arterial 48 mmHg [facility] pO2, arterial 304 mmHg [facility] Base excess, arterial 1 -2 - 2 mEq/L [facility] Specimen Blood Performing Organization Address [place]/[facility] Hospital[facility] Phone Number [facility] DEPARTMENT OF PATHOLOGY AND [address] [place] [address] [place] [phone] Fungus smear (06/08/2019 10:02 AM CDT) Pathologist Sig nature Fungus smear No fungi observed. [facility] Comment: HOSPITAL Specimen Information Specimen Source: Tissue Specimen Site: Tissue Femur Specimen Tissue Performing Organization Address City/[facility] Phone Number [facility] DEPARTMENT OF PATHOLOGY AND [address] [place] [address] [phone] [address] Gram stain (06/08/2019 10:02 AM CDT) Gram stain isolate Few WBC's [facility] No organisms seen HOSPITAL Comment: Specimen Information Specimen Source: Tissue Specimen Site: Tissue Femur Specimen Tissue - Tissue Performing Organization Address City/[facility]/Zipcode Phone Number [facility] DEPARTMENT OF PATHOLOGY AND [address] [place] [address] [phone] [address] AFB stain (06/08/2019 10:02 AM CDT) Pathologist Sig nature AFB stain No acid fast bacilli (AFB) seen. [facility] Comment: HOSPITAL Specimen Information Specimen Source: Tissue Specimen Site: Tissue Femur Specimen Tissue - Tissue Performing Organization Address City/State/Zipcode Phone Number [facility] DEPARTMENT OF PATHOLOGY AND [address] [place] [address] GENOMIC MEDICINE [facility] [address] [place] [address] Central line (06/08/2019 9:10 AM CDT) Narrative Performed At Benita Montalvo MD 1 9:11 AM Central line Performed by: Benita Montalvo MD Authorized by: Benita Montalvo MD Patient Location: OR Staff: Anesthesiologist: Viet Montalvo MD Other Staff: Denzel Cardoza Performed by: Other staff Preprocedure:patient identified, IV checked, site and side verified, risks and benefits discussed, procedure verifi ed, surgical consent complete, patient position confirmed, monitors and equipment checked and pre-op evaluation complete MSBT: antiseptic used during central federico ous catheter insertion, all elements of maximal sterile barrier tech nique followed, hand hygiene performed prior to central venous cathet er insertion, cap/gown used by other personnel during central venous ca theter insertion, solutions labeled and all ports not used during in sertion clamped Indications: Indications: Vascular access Anesthesia: Anesthesia: General Procedure details: Patient position: Trendelenburg Catheter Type: Double lumen Catheter Size: 8 Fr Catheter Site: internal jugular vein Catheter site laterality: Right Ultrasound guidance used: Yes Ultrasound image saved: No Number of attempts: 1 Successful placement: Yes Guidewire removal: Guidewire removal is confirmed Guidewire removal witnessed by: Benita Davalos MD Post-procedure: Post-procedure: line sutured, sterile dressing appl ied per protocol and ports flushed with saline Post-procedure: Blood cleaned with CHG and sterile caps on all hubs Assessment: Free fluid flow and blo od return through all ports Patient tolerance: Patient tolerate d the procedure well with no immediate complications Arterial line (06/08/2019 9:09 AM CDT) Narrative Performed At Benita Montalvo MD 1 9:11 AM Arterial line Performed by: Benita Montalvo MD Authorized by: Benita Montalvo MD Patient Location: OR Staff: Anesthesiologist: Viet Montalvo MD Other Staff: Denzel Cardoza Performed by: Anesthesiologist and other staff Pre-procedure: patient identified, IV ch ecked, site and side verified, risks and benefits discussed, procedure verified, surgical consent complete, patient position confirmed, monitors and equ ipment checked and pre-op evaluation complete MSBT: antiseptic used, all elements of maximal sterile barrier technique followed, hand hygiene performed, cap/go wn used by other personnel and solutions labeled Indications: Indications: multiple ABGs and hemody namic monitoring Anesthesia: Anesthesia: General Procedure Details: Arterial Line placement: Placed pos t induction Line placement site: Radial Line placement side: Right Arterial line gauge: 20 G Number of attempts: 3 Ultrasound guidance used: Yes Post-procedure: Post-procedure: Sterile dressing ap plied Post procedure circulation, sensation, movement: Normal and unchanged Patient tolerance: Patient tolerate d the procedure well with no immediate complications Notes: 2 attempts by SRNA with good flow bu t unable to thread wire. 1 successful attempt by attending. Airway (06/08/2019 9:08 AM CDT) Narrative Performed At Benita Montalvo MD 1 9:11 AM Airway Performed by: Benita Montalvo MD Authorized by: Benita Montalvo MD Location: OR Anesthesiologist: Benita Montalvo MD Other Anesthesia Staff: Ricardo Cardoza Performed by: other anesthesia staff Preoxygenated with 100% O2: Yes C-spine Precautions Maintained Throughou t: No Mask Ventilation: Easy mask Final Airway Type: Endotracheal airway Final Endotracheal Airway: ETT Cuffed: Yes Technique Used: Direct laryngoscopy Devices/Methods Used in Placement: Int ubating stylet Insertion Site: Oral Blade Type: Mckeon Laryngoscope Blade/Videolaryngoscope Rob de Size: 2 ETT Size (mm): 8.0 Cuff at minimum occlusion pressure: Yes Measured from: Lips ETT to Lips (cm): 23 Placement Verified by: CO2 detection and direct visualization Laryngoscopic view: Grade I - full vie w of glottis Rapid Sequence Induction (RSI): No Modified RSI: No Number of Attempts at Approach: 1 Atraumatic; no injury to lips or oropharynx. Activated clotting time (06/08/2019 8:01 AM CDT) Activated clotting 96 96 - 152 sec [facility] Comment: HOSPITAL Meter ID: [id number] Software Applications Architect ID: Rickie Keita Specimen Performing Organization Address City/[facility] Phone Number [facility] DEPARTMENT OF PATHOLOGY AND [address] [place] [address] [phone] [address] E antigen patient typing (06/08/2019 6:36 AM CDT) Pathologist Sig nature E Antigen Patient Typing NEG [facility] Specimen Performing Organization Address [place]/[facility] Phone Number [facility] DEPARTMENT OF PATHOLOGY AND [address] [place] [address] [phone] [address] XR Chest 2 Vw (05/27/2019 4:50 PM CDT) Specimen Narrative Performed At EXAMINATION: XR CHEST 2 VW [facility] CLINICAL HISTORY: Z01.818 Encounter for other prepro cedural examination, Pre-op testing COMPARISON: 11/29/2001. IMPRESSION: 1.Lungs are clear. Background emphysemat ous changes. 2.Normal heart size. TAVR. Thoracic aorta is moderatel y tortuous and atherosclerotic. Possible aneurysmal dilation of the d escending thoracic aorta. 3.No acute osseous abnormality. [id number] Procedure Note Interface, Radiology Results Incoming - 05/27/2019 4:57 PM CDT EXAMINATION: XR CHEST 2 VW CLINICAL HISTORY: Z01.818 Encounter for other preprocedural examination, Pre-op testing COMPARISON: 11/29/2001. IMPRESSION: 1.Lungs are clear. Background emphysemat ous changes. 2.Normal heart size. TAVR. Thoracic aort a is moderately tortuous and atherosclerotic. Possible aneurysmal dilation of the descending thoracic aorta. 3.No acute osseous abnormality. [id number] Performing Organization Address [place]/[facility] Hospitalcode Phone Number [facility] [address] [place] [address] ECG Pre/Post Op (05/27/2019 4:29 PM CDT) Pathologist Sig nature Ventricular rate 67 [facility] Atrial rate 67 [facility] AL interval 184 [facility] QRSD interval 100 [facility] QT interval 410 [facility] QTC interval 433 [facility] P axis 1 73 [facility] QRS axis 1 -5 [facility] T wave axis 66 [facility] EKG impression Normal sinus [facility] rhythm-Normal ECG-No previous ECGs available-Electronicall y Signed By William Schmidt MD ([id number]) on 05/29/2019 11:05:53 AM Specimen Narrative Performed At This result has an attachment that is no t available. Performing Organization Address City/State/Zipcode Phone Number [facility] [address] [place] [address] CV Cardiac PET Endocarditis\\Infection Device Assessment (05/02/2019 3:05 PM CDT) Specimen Narrative Performed At This result has an attachment that is no t available. 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
--- OUTSIDE RECORDS SUMMARY | 2020-04-25 18:18 | XMS REPORT | Clinical Summary ---
:1945 Author Organization [facility] Address [address] [place] [address] Care Team Providers Name Role Phone Uzair De La Cruz DO Primary Care Provider Allergies No Known Allergies Medications Medication Sig Dispensed Refills Start Date End Date Status omeprazole (PRILOSEC) Take 20 mg by 0 Active 20 MG capsule mouth daily. cholecalciferol Take 800 Units by 0 Active (VITAMIN D3) 400 unit mouth daily. Tab tablet albuterol HFA Inhale 1 puff by 0 Active (VENTOLIN HFA) 90 mouth via inhaler mcg/actuation inhaler every 6 (six) hours as needed for Wheezing. atorvastatin (LIPITOR) Take 10 mg by 0 Active 10 MG tablet mouth daily. lisinopril Take 40 mg by 0 Activ e (PRINIVIL,ZESTRIL) 40 mouth daily. MG tablet amitriptyline (ELAVIL) Take 50 mg by 0 Active 50 MG tablet mouth nightly. fluticasone-vilanterol Inhale 1 puff by 0 Active (BREO ELLIPTA) 200-25 mouth via inhaler mcg/dose DsDv daily. tiZANidine (ZANAFLEX) Take 4 mg by 0 Active 4 MG tablet mouth 3 (three) times daily as needed. primidone (MYSOLINE) Take 250 mg by 0 Active 250 MG tablet mouth daily. topiramate (TOPAMAX) Take 100 mg by 0 Active 100 MG tablet mouth 2 (two) times daily. warfarin (COUMADIN) 10 Take 9 mg by 0 Active MG tablet mouth daily. betamethasone, Apply 1-2 grams 3 12/22/2017 Active augmented, (DIPROLENE) to the affected 0.05 % cream area twice daily or as directed. Max 8g/day. fentaNYL (DURAGESIC) 0 12/01/2017 Active 100 mcg/hr patch HYDROcodone-acetaminop 0 12/16/2017 Active hen (NORCO 10-325) 10-325 mg per tablet tamsulosin (FLOMAX) Take 1 capsule 30 capsule 0 02/05/2018 Active 0.4 mg Cp24 24 hr (0.4 mg total) by capsule mouth daily. honey 100 % Pste Apply 1 206 mL 2 03/30/2018 Ac tive application topically daily. 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 Last Filed Vital Signs Not on file Plan of Treatment Health Maintenance Due Date Last Done Comments MEDICARE ANNUAL WELLNESS (YEAR 2 or FIRST YEAR if no 05/11/2005 IPPE) PNEUMOCOCCAL 65+ LOW/MEDIUM RISK (2 of 2 - PPSV23) 05/26/2017 05/26/2016 INFLUENZA VACCINE (#1) 2020 08/29/2017 Implants Implanted Type Area Continuous Mining Machine Lode Miner Device Shelf Model / Identifier Expiration Serial / Date Lot Amplatzer Vascular Plug Ii Cardiovascular [facility] 12/07/2021 [id number] / Implanted: Qty: 1 on 12/04/2017 by Christian Hdz MD / [id number] Azur 18 Detachable Helical Hydrocoil Coil 08/15/2020 [id number] / Implanted: Qty: 1 on 12/04/2017 by Christian Hdz MD / [id number] Azur 35 Detachable Helical Hydrocoil Coil 05/09/2022 [id number] / Implanted: Qty: 1 on 12/04/2017 by Christian Hdz MD / [id number] Azur 35 Detachable Helical Hydrocoil Coil 05/09/2022 [id number] / Implanted: Qty: 1 on 12/04/2017 by Christian Hdz MD / [id number] Azur 35 Detachable Helical Hydrocoil Coil 05/09/2022 [id number] / Implanted: Qty: 1 on 12/04/2017 by Christian Hdz MD / [id number] Azur Cx 35 Detachable Cx Coil Coil 07/09/2021 [id number] / Implanted: Qty: 1 on 12/04/2017 by Christian Hdz MD / [id number] Azur Cx 35 Detachable Cx Coil Coil 02/06/2021 [id number] / Implanted: Qty: 1 on 12/04/2017 by Christian Hdz MD / [id number] Azur Cx 35 Detachable Cx Coil Coil 08/09/2021 [id number] / Implanted: Qty: 1 on 12/04/2017 by Christian Hdz MD / [id number] Azur 35 Detachable Helical Hydrocoil Coil 10/02/2020 [id number] / Implanted: Qty: 1 on 12/04/2017 by Christian Hdz MD / [id number] Azur Cx 35 Detachable Cx Coil Coil 08/09/2021 [id number] / Implanted: Qty: 1 on 12/04/2017 by Christian Hdz MD / [id number] Azur 18 Detachable Helical Hydrocoil Coil 06/09/2018 [id number] / Implanted: Qty: 1 on 12/04/2017 by Christian Hdz MD / [id number] Azur 18 Detachable Helical Hydrocoil Coil 05/23/2020 [id number] / Implanted: Qty: 1 on 12/04/2017 by Christian Hdz MD / [id number] Azur Cx 18 Detachable Cx Coil Coil 06/09/2021 [id number] / Implanted: Qty: 1 on 12/04/2017 by Christian Hdz MD / [id number] Azur Cx 18 Detachable Cx Coil Coil 05/09/2021 [id number] / Implanted: Qty: 1 on 12/04/2017 by Christian Hdz MD / [id number] Azur 35 Detachable Framing Coil Coil 10/07/2022 [id number] / Implanted: Qty: 1 on 12/04/2017 by Christian Hdz MD / [id number] Azur 35 Detachable Framing Coil Coil 10/07/2022 [id number] / Implanted: Qty: 1 on 12/04/2017 by Christian Hdz MD / [id number] Azur 35 Detachable Framing Coil Coil 10/07/2022 [id number] / Implanted: Qty: 1 on 12/04/2017 by Christian Hdz MD / [id number] Azur 35 Detachable Framing Coil Coil 10/07/2022 [id number] / Implanted: Qty: 1 on 12/04/2017 by Christian Hdz MD / [id number] [facility] Vasc Knit Gld [id number] - [id number] Graft/Patch N/A: GETINGE 12/07/2021 [id number] / Implanted: Qty: 1 on 02/02/2018 by Christian Hdz MD Arterial IND:HERBERT:ILENE [id number] / [employer] Stents-Peripher BARD VASCULAR [id number] 05/30 [id number] / Implanted: Qty: 1 on 02/02/2018 by Christian Hdz MD al / [id number] [employer] Stents-Peripher BARD VASCULAR [id number] 09/11 [id number] / Implanted: Qty: 1 on 02/02/2018 by Christian Hdz MD al / [id number] [employer] Stents-Peripher BARD VASCULAR [id number] 07/31 [id number] / Implanted: Qty: 1 on 02/02/2018 by Christian Hdz MD al / [id number] [employer] Stents-Peripher BARD VASCULAR [id number] 03/12 [id number] / Implanted: Qty: 1 on 02/02/2018 by Christian Hdz MD al / [id number] Holguin Denilson 3 Thv Valves N/A: HOLGUIN 0 [id number] / Implanted: Qty: 1 on 12/09/2017 by Christian Hdz MD Heart [employer] [id number] / Results Not on fileafter 04/25/2019 Insurance Payer Benefit Plan / Group Subscriber ID Type Phone A ddress MEDICARE MEDICARE A B xxxxxxxxxx Medicare Advance Directives For more information, please contact:[address] [phone] Code Status Date Activated Date Inactivated Comments [...]
--- OUTSIDE RECORDS SUMMARY | 2020-04-25 18:19 | XMS REPORT | Continuity of Care Document ---
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 Neuro, (disorder) [facility] Deshawn ro, disease [place] (disorder) [facility] Essential tremor Active Problem 12/17/2019 [place] mariel[place] (disorder) 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, Neuro, systemic arterial [place] ([place] [facility] Subdural hematoma Active Problem 12/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 is[place] (disorder) Neuro,[facility] 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 Lumbar Active Problem 12/17/2019 [place] radiculopathy Neuro (disorder) [place]TRAUMATIC [place] SUBDURAL Medical HEMORRHAGE, Center UNSPEC Medications Medication Details Route Status Patient Ordering Order Source Instructions Provider Date gabapentin 300 300 mg = 1 cap, Active ischer MG Oral Capsule PO, BID, # 60 2019 Ne uro cap, 5 Refill(s), Pharmacy: [facility] gabapentin 300 See Instructions, Active 11/10/ Mischer MG Oral Capsule # 90 2019 Neuro Refill(s) 1, TAKE ONE (1) CAPSULE(S) BY MOUTH AT BEDTIME., Pharmacy: [facility] GABAPENTIN CAP = 1 cap, PO, Active 01/04/ Misc her 300MG Bedtime, # 30 2018 Neuro Refill(s) 5, Pharmacy: [facility] gabapentin 300 300 mg = 1 cap, Active M ischer MG Oral Capsule PO, Bedtime, # 30 2018 Neuro cap, 3 Refill(s), Pharmacy: [facility] amitriptyline 75 75 mg = 1 tab, Active 01/04/ Mischer mg oral tablet PO, Bedtime, # 30 2019 Neuro tab, 0 Refill(s) amLODIPine 5 mg 5 mg = 1 tab, PO, Active cher oral tablet Daily, # 90 tab, 2019 Deshawn ro 0 Refill(s) primidone 250 mg = 1 tab, PO, Active marielos oral tablet Daily, # 30 tab, 2019 Deshawn ro 9 Refill(s), Pharmacy: [facility] [place] topiramate 100 100 mg = 1 tab, Active ischer mg oral tablet PO, BID, # 60 2019 Deshawn ro tab, 9 Refill(s), Pharmacy: [facility] [place] Warfarin Sodium 5 mg = 1 tab, PO, Active [place] 5 MG Oral Tablet Daily, INR goal 2016 Medical [Coumadin] 2-3, # 30 tab, 0 Cent er Refill(s) tamsulosin 0.4 0.8 mg = 2 cap, Active H [place] mg oral capsule PO, Daily, 0 2016 Med ical Refill(s) Center Levetiracetam 1,500 mg = 3 tab, Active [place] 500 MG Oral PO, [id number], # 90 2016 Me dical Tablet tab, 0 Refill(s) Center Docusate Sodium 100 mg = 1 cap, Active [place] 100 MG Oral PO, Q12H, # 20 2016 Medic al Capsule cap, 0 Refill(s) Center phenol Notes: No Longer [place] Chloraseptic Active 2016 Medical [place] (Same as: [place] Chloraseptic, Sore Throat Glenn) WASTE: F/P - Black; E - Municipal Trash Bin Coumadin 5 mg, 1 tab, Inactive [place] Route: PO, Drug 2015 Medical form: TAB, ONCE, [place] Dosing Weight 76.36, kg, Start date: 05/29/16 21:30:00 CDT, Stop date: 05/29/16 21:30:00 CDT Warfarin 5 mg, 1 tab, Inactive [place] Route: PO, Drug 2015 Medical form: TAB, Q5PM, [place] Dosing Weight 76.36, kg, Start date: 05/29/16 17:00:00 CDT, Duration: 1 doses or times, Stop date: 05/29/16 17:00:00 CDT Labetalol Notes: With food. No Longer [place] (Same Active 2015 Medical as:Trandate, Center Normodyne) Keppra Notes: (Same No Longer [place] as:Keppra) Active 2016 Medical Center Coumadin Notes: Nurse to Inactive Eric as ensure 2016 Medical documentation of Center patient education per anticoagulation policy. Avoid large intake of vitamin-K containing foods diet. 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 Duragesic-100 Notes: (Same as: No Longer [place] Duragesic) Check Active 2015 [facility] for product Center integrity. Apply to intact skin "Remove old patch before application of new patch" Ibuprofen Notes: (Same as: In[place] Motrin 2016 Medical [facility], Advil Center Children[facility]) Take with food. 72 HR Fentanyl 1 patch, Route: Inactive [place] 0.1 MG/HR TOP, Dosing 2015 Medical Transdermal Weight 76.36, kg, Ce nter Patch Daily, Start date: 05/27/16 9:00:00 CDT, Duration: 30 day, Stop date: 06/25/16 9:00:00 POULTRY TENDER Lisinopril 40 mg, Route: PO, Inactive [place] Drug form: TAB, 2015 Medical Daily, Dosing Center Weight 76.36, kg, Start date: 05/27/16 9:00:00 CDT, Duration: 30 day, Stop date: 06/25/16 9:00:00 POULTRY TENDER Miralax Notes: Dissolve No Longer Eric as in 8 oz of water Active 2016 Medical or juice. (Same Center as: Miralax) remove patch Notes: Remove old No Longer [place] patch before Active 2016 Medical application of Center new patch. WASTE: F/P - P Waste Black; E - P Waste Black Keppra Notes: Same as Inactive [place] Keppra Mix with 2016 Medical 100 mL NS, LR or Center D5W MEDICATION WASTE Product Size: 500 mg Product Wasted: ___ mg Keppra Notes: Same as [place] Longer [place] Keppra Mix with Active 2015 Medical 100 mL NS, LR or Center D5W MEDICATION WASTE Product Size: 500 mg Product Wasted: ___ mg Hydralazine Notes: (Same as: No Longer 05/27/ H [place] Apresoline) Push Active 2015 Medical over 5 minutes Center heparin Notes: porcine [place]er [place] heparin Active 2016 Medical Center Fentanyl Notes: (Same as: No Longer [place] Sublimaze) Active 2016 Medical Preservative Center free. Lisinopril Notes: (Same as: No Longer [place] Prinivil, Active 2015 Medical Zestril) Center Fentanyl Notes: (Same as: [place] Sublimaze) 2016 Medical Preservative Center free. pneumococcal Notes: Lightly Inactive [place] 13-valent roll vial (DO NOT 2016 Medi skinny vaccine SHAKE) before Center administration. (Same as: Prevnar 13) Albuterol 0.833 Notes: (Same as: No Longer 05/26 [place] MG/ML / Duoneb) Active 2015 Medical Ipratropium Center [place] 0.167 MG/ML Inhalant Solution [DuoNeb] mirtazapine 7.5 7.5 mg = 1 tab, Active [place] mg oral tablet PO, Bedtime, # 30 2016 Medical tab, 1 Refill(s) Center Eszopiclone 1 MG 1 mg = 1 tab, PO, Active 05/26 [place] Oral Tablet Bedtime, PRN for 2016 Med ical [Lunesta] insomnia, # 30 Center tab, 0 Refill(s) Trazodone 50 mg = 1 tab, [place]er [place] Hydrochloride 50 PO, TID, # 90 Active 2015 M edical MG Oral Tablet tab, 0 Refill(s) Center Acetaminophen 1 tab, PO, TID, Active [place] 325 MG / PRN Pain, # 60 2016 Medical Hydrocodone tab, 0 Refill(s) Arlene ter Bitartrate 10 MG Oral Tablet [[place] ] lisinopril 40 mg 40 mg = 1 tab, Active [place] oral tablet PO, Daily, 0 2016 Medical Refill(s) Center 12 HR Clonidine 0.1 mg = 1 tab, Active [place] Hydrochloride PO, Bedtime, # 30 2016 Medical 0.1 MG Extended tab, 0 Refill(s) Center Release Tablet 72 HR Fentanyl 1 patch, TOP, Active [place] 0.1 MG/HR Q48H, # 15 patch, 2016 [facility] skinny Transdermal 0 Refill(s) [place] Patch [Duragesic] Warfarin Sodium 4 mg = 1 tab, PO, No Longer 05/10 [place] 4 MG Oral Tablet Daily, # 30 tab, Active 2016 Medical [Coumadin] 0 Refill(s) [place] Breo Ellipta 100 1 puff, Active [place] mcg-25 mcg INHALATION, 2016 Medical inhalation Daily, 0 Center powder Refill(s) Vitamin B12 100 100 microgram = 1 Active [place] mcg oral tablet tab, PO, Daily, # 2016 Medical 30 tab, 0 Center Refill(s) primidone 50 mg 50 mg = 1 tab, Active H [place] oral tablet PO, BID, # 60 2016 Medica l tab, 0 Refill(s) Center tizanidine 4 MG 8 mg = 2 tab, PO, Active [place] Oral Tablet Q8H, # 180 tab, 0 2016 Me dical [Zanaflex] Refill(s) Center Aspirin 81 MG 81 mg = 1 tab, No Longer H [place] Enteric Coated PO, Daily, # 90 Active 2015 edical Tablet tab, 3 Refill(s) Center Vitamin D3 400 400 IntlUnit = 1 Active [place] intl units oral cap, PO, Daily, 0 2015 Medical capsule Refill(s) Center 200 ACTUAT 2 puff, INHALER, Active [place] Albuterol 0.09 Q6H, PRN for 2016 Medi skinny MG/ACTUAT wheezing, # 8.5 Center Metered Dose gm, 0 Refill(s) Inhaler [ProAir HFA] Keppra Notes: Same as Inactive [place] Keppra Mix with 2016 Medical 100 mL NS, LR or Center D5W MEDICATION WASTE Product Size: 500 mg Product Wasted: ___ mg Hydralazine Notes: (Same as: No Longer H [place] Apresoline) Push Active 2015 Medical over 5 minutes Center Nicotine Notes: (Same as: No Longer [place] Habitrol) "Remove Active 2015 Medica l old patch before Center application of new patch" WASTE: F/P - P Waste Black; E - P Waste Black Keppra + sodium Notes: Same as Inactive [place] chloride 0.9% Keppra Mix with 2016 edical INJ 100 mL 100 mL NS, LR or Cent er D5W MEDICATION WASTE Product Size: 500 mg Product Wasted: __0_ mg Keppra 500 mg, Route: Inactive [place] IVPB, Q24H, 2016 Medical Dosing Weight Center 76.36, kg, Priority: STAT, Start date: 05/26/16 1:28:00 CDT, Duration: 30 day, Stop date: 06/24/16 1:28:00 POULTRY TENDER sodium chloride 1,000 mL, Rate: No Longer [place] 0.9% 1000 ml INJ 50 ml/hr, Infuse Active 2015 Medical 1,000 mL over: 20 hr, Center Route: IV, Dosing Weight 76.36 kg, Total Volume: 1,000, Start date: 05/25/16 21:30:00 CDT, Duration: 30 day, Stop date: 06/24/16 21:29:00 POULTRY TENDER Acetaminophen Notes: (Same as: No Longer [place] 325 MG / [place] 325/5) Do Active 2015 Medica l Hydrocodone not exceed Center Bitartrate 5 MG 4gm/day of Oral Tablet acetaminophen. [[place] 5/325] Tylenol Notes: Do not No Longer [place] exceed 4 gm/day. Active 2016 Medical (Same as: [place] Tylenol) Albuterol 0.83 Notes: SEE RT Inactive [place] MG/ML Inhalant DOCUMENTATION 2016 Med ical Solution (Same as: [place] Proventil) Ancef + sodium Notes: (Same As: No Longer [place] chloride 0.9% Ancef, Kefzol) Active 2016 Med ical INJ 100 mL MEDICATION Center WASTE Product Size: 1000 mg Product Wasted: ___ mg Ondansetron Notes: (Same as: Inactive [place] Zofran) 2016 Medical MEDICATION WASTE Center Product Size: 4 mg Product Wasted: ___ mg Hydromorphone Notes: (Same as: Inactive [place] Dilaudid) 2016 [facility] Center Naloxone Notes: Same as Inactive [place] s Narcan 2016 [facility] Center Flumazenil Notes: (Same as: Inactive [place] Romazicon) 2016 [facility] Center Labetalol 10 mg, 2 mL, Inactive [facility] Route: IVP, Drug 2016 Medical form: INJ, Q5Min, Center Dosing Weight 76.36, kg, PRN Elevated BP, Start date: 05/25/16 15:57:00 CDT, Duration: 5 doses or times, Stop date: 05/26/16 0:00:00 CDT Metoprolol Notes: (Same as: Inactive [place] Lopressor) Push 2016 Medical over 2 minutes Center Sodium Chloride 1,000 mL, Rate: Inactive [place] 0.154 MEQ/ML 125 ml/hr, Infuse 2016 M edical Injectable over: 8 hr, [place] Solution Route: IV, Dosing Weight 76.36 kg, Total Volume: 1,000, Start date: 05/25/16 15:57:00 CDT, Duration: 30 day, Stop date: 06/24/16 15:56:00 POULTRY TENDER Ancef 2 gm, Route: Inactive [place] IVPB, ONCE, 2016 Medical Dosing Weight Center 76.36, kg, Start date: 05/25/16 14:15:00 CDT, Duration: 1 doses or times, Stop date: 05/25/16 14:15:00 CDT Streptococcus Notes: Lightly Inactive [place] pneumoniae roll vial (DO NOT 2016 Med ical serotype 1 SHAKE) before Center capsular antigen administration. diphtheria (Same as: Prevnar [id number] protein 13) conjugate vaccine / Streptococcus pneumoniae serotype 14 capsular antigen diphtheria [id number] protein conjugate vaccine / Streptococcus pneumoniae serotype 18C capsular antigen d Vitamin K1 + Notes: (Same as: No Longer [place] sodium chloride Aqua-Mephyton, Active 2015 M edical 0.9% INJ 50 mL Vitamin K) Center MEDICATION WASTE Product Size: 10 mg Product Wasted: ___ mg Saline Flush Notes: (Same as: No Longer [place] 0.9% BD Posiflush) Active 2016 Medical Center Levetiracetam Notes: (Same No Longer [place] as:Keppra) Active 2016 Medical Center Docusate Notes: (Same as: No Longer [place] Colace) (Do Not Active 2016 Medical Crush) Center sennosides, CUSTODIAL Notes: (Same as: No Longer 05/25 [place] Senokot) Active 2016 Medical Center Flomax Notes: (Same As: No Longer [place] Flomax) "Do Not Active 2016 Medical Crush" Center Dexamethasone Notes: Inactive [place] Concentration: 2016 Medical 4mg/ml Center Mannitol Notes: (Same as: Inactive [facility] Osmitrol) Infuse 2016 Medical through 5 micron Center or smaller filter WASTE: F/P - Sink; E - Municipal Trash Bin Vitamin K1 + Notes: (Same as: Inactive [facility] sodium chloride Aqua-Mephyton, 2016 M edical 0.9% INJ 50 mL Vitamin K) Center MEDICATION WASTE Product Size: 10 mg Product Wasted: ___ mg Magnesium Oxide Notes: (Same as: No Longer 05/25 [place] Mag-Ox 400) Active 2016 Medical Magnesium oxide Center [id number] elemental magnesium Dose=____mg magnesium oxide (___mg elemental magnesium) Magnesium Notes: WASTE: F/P No Longer [place] Sulfate - Sink; E - Active 2015 Medical Municipal Trash Center Bin Calcium Notes: (Same As: [place] Longer [place] Carbonate 500 MG Tums) Calcium Active 2015 M edical Chewable Tablet Carbonate 500 mg Center = 200 mg elemental calcium Dose = mg calcium carbonate ( mg elemental calcium) Calcium Notes: WASTE: F/P [place] Longer [place] Gluconate - Sink; E - Active 2015 [facility] Trash Center Bin potassium Notes: (Same as: No Longer [place] phosphate-sodium Phos-NaK) Each Active 2015 Medical phosphate 250 1.5 [address]m pkt has [address] mg-280 mg-160 mg 250mg oral powder for phosphorous. Mix reconstitution w/2.5oz water and stir. potassium Notes: (Same as: No Longer [place] phosphate + K Phosphate.) 1 Active 2015 Med ical sodium chloride mMol phoshate has Center 0.9% INJ 250 mL 1.47 mEq potassium Infuse over 4 hours sodium phosphate 45 mmol, 15 mL, No Longer 05/25 [place] + sodium Route: IVPB, PRN, Active 2015 Medic al chloride 0.9% Dosing Weight Cent er INJ 250 mL 76.364, kg, PRN Abnormal Lab Result, Start date: 05/24/16 23:11:00 CDT, Duration: 30 day, Stop date: 06/23/16 22:10:00 POULTRY TENDER, FOR ICU USE ONLY potassium Notes: (Same as: No Longer [place] chloride KCL) Infuse over Active 2015 Medic al 2 hours. Center iodixanol 60 mL, Route: [place] IVP, Drug Form: 2016 Medical SOLN, Dosing Center Weight 76.364, kg, ONCALL, STAT, Start date: 05/24/16 22:50:00 CDT, Duration: 1 doses or times, Dose = 2.2ml/kg, Max dose = 100ml -- "To be infused by Radiology Staff ONLY" Regular Insulin, 60 units) No Longer H [place] Human 100 UNT/ML WASTE: F/P - Active 2015 Wa dical Injectable Black; E - Center Solution Municipal Trash Bin Stable for 28 days at room temperature Expires in days from Dat e Dextrose 50% 6.25 gm, 12.5 mL, No Longer [place] Syringe Route: IVP, Drug Active 2015 Medical Form: INJ, Dosing Center Weight 76.364, kg, PRN, PRN Abnormal Lab Result, Start date: 05/24/16 22:17:00 CDT, Duration: 30 day, Stop date: 06/23/16 21:16:00 POULTRY TENDER Saline Flush Notes: (Same as: No Longer [place] 0.9% BD Posiflush) Active 2016 Medical Center Bisacodyl Notes: (Same As: No Longer [place] Dulcolax, Active 2015 [facility] Bisco-Lax) [place] Ondansetron Notes: (Same as: No Longer [facility] Zofran) Active 2015 Medical MEDICATION WASTE Center Product Size: 4 mg Product Wasted: _0__ mg Acetaminophen Notes: Do not No Longer [place] 325 MG / exceed 4gm/day of Active 2015 Medic al Hydrocodone acetaminophen. Cente r Bitartrate 10 MG (Same as: [place] Oral Tablet 325/10) Levetiracetam Notes: Same as No Longer [place] Keppra Mix with Active 2015 [facility] 100 mL NS, LR or Center D5W MEDICATION WASTE Product Size: 500 mg Product Wasted: __0_ mg Sodium Chloride 1,000 mL, Rate: No Longer [place] 0.154 MEQ/ML 75 ml/hr, Infuse Active 2015 Wa dical Injectable over: 13.3 hr, Center Solution Route: IV, Dosing Weight 76.364 kg, Total Volume: 1,000, Start date: 05/24/16 22:17:00 CDT, Duration: 30 day, Stop date: 06/23/16 22:16:00 POULTRY TENDER Acetaminophen Notes: (Same as: No Longer [place] 325 MG / [place] 325/5) Do Active 2015 Medica l Hydrocodone not exceed Center Bitartrate 5 MG 4gm/day of Oral Tablet acetaminophen. Saline Flush Notes: (Same as: No Longer [place] 0.9% BD Posiflush) Active 2015 [facility] Allergies, Adverse Reactions, Alerts Substance Category Reaction Severity Reaction Status Date Comments S ource type Reported No Known Assertion Drug Misch er Medication allergy Neuro Allergies Immunizations Immunization Date Site Status Last Updated Comments Sour ce Given pneumococcal Right completed Aigbedion Mischer 13-valent 6 Deltoid Neuro, vaccine [facility] Results Order Name Results Value Reference Date Interpretation Comments Domi rce Range HEMATOLOGY INR 1.08 0.85 - 05/30 [place] 1.17 /2015 [facility] HEMATOLOGY PT 14.2 12.0 - 05/30 [place] 14.7 /2015 [facility] HEMATOLOGY INR 1.09 0.85 - 05/28 [place] 1.17 [facility] HEMATOLOGY PTT 27.7 22.9 - 05/28 [place] 35.8 /2016 [facility] HEMATOLOGY PT 14.3 12.0 - 05/28 [place] 14.7 /2015 [facility] HEMATOLOGY Platelet 287 133 - 450 05/28 /2015 [facility] HEMATOLOGY MPV 8.4 7.4 - 10.4 05/28 /2015 [facility] HEMATOLOGY MCHC 33.3 32.0 - 05/28 [place] 36.0 /2015 [facility] HEMATOLOGY Hgb 11.6 14.0 - 05/28 [place] 18.0 /2015 [facility] HEMATOLOGY MCH 29.6 27.0 - 05/28 [place] 31.0 /2016 [facility] HEMATOLOGY RDW 15.0 11.5 - 05/28 [place] 14.5 /2016 [facility] HEMATOLOGY MCV 88.9 80.0 - 05/28 [place] 94.0 /2015 [facility] HEMATOLOGY Hct 35.0 42.0 - 05/28 [place] 54.0 /2016 [facility] HEMATOLOGY RBC 3.94 4.70 - 05/28 [place] 6.10 /2015 [facility] HEMATOLOGY WBC 11.4 3.7 - 10.4 05/28 [facility] HEMATOLOGY Monocytes # 1.3 0.0 - 0.8 05/28 [place] /2015 [facility] HEMATOLOGY Segs-Bands # 8.9 1.5 - 8.1 05/28 Eric as /2015 [facility] HEMATOLOGY Lymphocytes 1.2 1.0 - 5.5 05/28 [place] # /2015 [facility] HEMATOLOGY Basophils # 0.1 0.0 - 0.2 05/28 [facility] HEMATOLOGY Eosinophils 0.1 0.0 - 4.0 05/28 [facility] HEMATOLOGY Basophils 0.5 0.0 - 1.0 05/28 [facility] HEMATOLOGY Monocytes 11.5 2.0 - 12.0 05/28 [facility] HEMATOLOGY Segs 77.6 45.0 - 05/28 [facility] 75.0 [facility] HEMATOLOGY Lymphocytes 10.3 20.0 - 05/28 [place] 40.0 [facility] CHEM PANEL eGFR 89 05/27 Result Comment: [facility] eGFR is Center calculated using the CKD-EPI formula. In most young, healthy individuals the eGFR will be >90 mL/min/1.73m2 . The eGFR declines with age. An eGFR of 60-89 may be normal in some populations, particularly the elderly, for whom the CKD-EPI formula has not been extensively validated. Use of the eGFR is not recommended in the following populations:< br/>
Alyce viduals with unstable creatinine concentration s, including patients and those with serious co-morbid conditions.<b r/>
Patie nts with extremes in muscle mass or diet.

The data above are obtained from the National Kidney Disease Education Program (NKDEP) which additionally recommends that when the eGFR is used in patients with extremes of body mass index for purposes of drug dosing, the eGFR should be multiplied by the estimated BMI. CHEM PANEL Glucose Lvl 104 70 - 99 05/27 [facility] CHEM PANEL Creatinine 0.80 0.50 - 05/27 [facility] Lvl 1.40 [facility] CHEM PANEL BUN 9 7 - 22 05/27 [facility] CHEM PANEL Sodium Lvl 137 135 - 145 05/27 [facility] CHEM PANEL Potassium 3.9 3.5 - 5.1 05/27 Result [facility] Comment: [facility] Center Slightly Hemolyzed. CHEM PANEL CO2 22 24 - 32 05/27 [facility] CHEM PANEL Chloride Lvl 100 95 - 109 05/27 [facility] CHEM PANEL Calcium Lvl 8.0 8.5 - 10.5 05/27 [facility] CHEM PANEL AGAP 18.9 10.0 - 10/18 [place] 20.0 /2016 [facility] CHEM PANEL Phosphorus 2.3 2.5 - 4.5 05/27 [place] /2015 [facility] CHEM PANEL Magnesium 1.7 1.8 - 2.4 05/27 [place] Lvl /2015 [facility] HEMATOLOGY Monocytes 7.2 2.0 - 12.0 05/27 /2015 [facility] HEMATOLOGY Lymphocytes 7.5 20.0 - 05/27 [place] 40.0 /2015 [facility] HEMATOLOGY Segs 85.1 45.0 - 05/27 [place] 75.0 /2016 [facility] HEMATOLOGY Segs-Bands # 9.0 1.5 - 8.1 05/27 Eric as /2015 [facility] HEMATOLOGY Basophils 0.2 0.0 - 1.0 05/27 [place] [facility] HEMATOLOGY Monocytes # 0.8 0.0 - 0.8 05/27 [place] /2015 [facility] HEMATOLOGY Lymphocytes 0.8 1.0 - 5.5 05/27 [place] # /2015 [facility] HEMATOLOGY MCV 88.5 80.0 - 05/27 [place] 94.0 /2016 [facility] HEMATOLOGY Hct 31.9 42.0 - 05/27 [place] 54.0 /2016 [facility] HEMATOLOGY Hgb 11.0 14.0 - 05/27 [place] 18.0 /2015 [facility] HEMATOLOGY RBC 3.61 4.70 - 05/27 [place] 6.10 [facility] HEMATOLOGY MCH 30.6 27.0 - 05/27 [place] 31.0 /2015 [facility] HEMATOLOGY WBC 10.6 3.7 - 10.4 05/27 [facility] HEMATOLOGY Platelet 205 133 - 450 05/27 [facility] HEMATOLOGY RDW 14.7 11.5 - 05/27 [place] 14.5 [facility] HEMATOLOGY MCHC 34.6 32.0 - 05/27 [place] 36.0 [facility] HEMATOLOGY MPV 9.3 7.4 - 10.4 05/27 /2015 [facility] PARATHYROID Ca Norm WB 0.99 1.05 - 05/27 [place] PROFILE 1. [facility] PARATHYROID Ca Ion WB 1.02 1.05 - 05/27 [place] PROFILE 1. [facility] CARDIAC Troponin-T <0.010 0.000 - 05/26 [place] ENZYMES ng/mL 0.100 /2015 [facility] CARDIAC Troponin-I <0.02 0.00 - 05/26 [facility] ENZYMES 0.40 [facility] CARDIAC Total CK 50 12 - 191 05/26 [facility] ENZYMES [facility] CHEM PANEL Magnesium 2.1 1.8 - 2.4 05/26 [facility] Lv [facility] CHEM PANEL eGFR 88 05/26 [facility] Comment: The Medical eGFR is Center calculated using the CKD-EPI formula. In most young, healthy individuals the eGFR will be >90 mL/min/1.73m2 . The eGFR declines with age. An eGFR of 60-89 may be normal in some populations, particularly the elderly, for whom the CKD-EPI formula has not been extensively validated. Use of the eGFR is not recommended in the following populations:< br/>
Alyce viduals with unstable creatinine concentration s, including patients and those with serious co-morbid conditions.<b r/>
Patie nts with extremes in muscle mass or diet.

The data above are obtained from the National Kidney Disease Education Program (NKDEP) which additionally recommends that when the eGFR is used in patients with extremes of body mass index for purposes of drug dosing, the eGFR should be multiplied by the estimated BMI. CHEM PANEL CO2 23 24 - 32 05/26 [facility] CHEM PANEL Chloride Lvl 100 95 - 109 05/26 a s [facility] CHEM PANEL Calcium Lvl 7.8 8.5 - 10.5 05/26 [facility] CHEM PANEL AGAP 16.2 10.0 - 05/26 [facility] 20.0 [facility] CHEM PANEL Sodium Lvl 135 135 - 145 05/26 [facility] CHEM PANEL Glucose Lvl 78 70 - 99 05/26 [facility] CHEM PANEL BUN 9 7 - 22 05/26 [facility] CHEM PANEL Potassium 4.2 3.5 - 5.1 05/26 [facility] CHEM PANEL Creatinine 0.81 0.50 - 05/26 [facility] 1.[facility] CHEM PANEL Phosphorus 3.3 2.5 - 4.5 05/26 [facility] HEMATOLOGY MCHC 34.6 32.0 - 05/26 [place] 36.0 [facility] HEMATOLOGY RDW 14.1 11.5 - 05/26 [place] 14.5 /2015 [facility] HEMATOLOGY RBC 3.69 4.70 - 05/26 [place] 6.10 [facility] HEMATOLOGY WBC 10.1 3.7 - 10.4 05/26 [facility] HEMATOLOGY MPV 9.0 7.4 - 10.4 05/26 [facility] HEMATOLOGY Platelet 234 133 - 450 05/26 [facility] HEMATOLOGY MCH 30.3 27.0 - 05/26 [place] 31.0 [facility] HEMATOLOGY MCV 87.7 80.0 - 05/26 [place] 94.0 /2015 [facility] HEMATOLOGY Hct 32.4 42.0 - 05/26 [place] 54.0 [facility] HEMATOLOGY Hgb 11.2 14.0 - 05/26 [place] 18.0 [facility] HEMATOLOGY Ly30 0.2 0.0 - 7.5 05/26 [facility] HEMATOLOGY TEG Data See Note 05/26 [facility] (05/26/16 12:43 AM) /2015 [facility] HEMATOLOGY G-value 15.5 4.5 - 11.0 05/26 [facility] HEMATOLOGY Max Amp 75.6 50.0 - 05/26 [place] 70.0 [facility] HEMATOLOGY Coag Index 5.3 -3.0-3.0 - [place] 3[place]0 [facility] HEMATOLOGY K-time 0.8 1.0 - 3.0 05/26 [facility] HEMATOLOGY Angle 78.6 53.0 - 05/26 [place] 72.0 [facility] HEMATOLOGY R-time 2.8 5.0 - 10.0 05/26 [facility] HEMATOLOGY TEG Interp Thrombelast 05/26 Eric as ograph /2015 [facility] show shortened value of R and increased values of both Angle Alpha and MA. These findings are suggestive of platelet and enzymatic hypercoagul ation which may be seen in early phase of DIC. Monitor for DIC with DIC panel may be indicated. CPT:49858 HEMATOLOGY Monocytes 10.1 2.0 - 12.0 05/26 [facility] HEMATOLOGY Lymphocytes 13.2 20.0 - 05/26 [place] 40.0 [facility] HEMATOLOGY Segs-Bands # 7.7 1.5 - 8.1 05/26 [facility] HEMATOLOGY Basophils 0.4 0.0 - 1.0 05/26 [facility] HEMATOLOGY Eosinophils 0.1 0.0 - 4.0 05/26 a [facility] HEMATOLOGY Monocytes # 1.0 0.0 - 0.8 05/26 a [facility] HEMATOLOGY Lymphocytes 1.3 1.0 - 5.5 [place] [facility] HEMATOLOGY Segs 76.2 45.0 - 05/26 [place] 75.0 [facility] PARATHYROID Ca Ion WB 1.11 1.05 - 05/26 [place] PROFILE 1. [facility] PARATHYROID Ca Norm WB 1.08 1. - 05/26 [facility] PROFILE 1. [facility] CHEM PANEL eGFR 80 05/25 [facility] Comment: The Medical eGFR is Center calculated using the CKD-EPI formula. In most young, healthy individuals the eGFR will be >90 mL/min/1.73m2 . The eGFR declines with age. An eGFR of 60-89 may be normal in some populations, particularly the elderly, for whom the CKD-EPI formula has not been extensively validated. Use of the eGFR is not recommended in the following populations:< br/>
Alyce viduals with unstable creatinine concentration s, including patients and those with serious co-morbid conditions.<b r/>
Patie nts with extremes in muscle mass or diet.

The data above are obtained from the National Kidney Disease Education Program (NKDEP) which additionally recommends that when the eGFR is used in patients with extremes of body mass index for purposes of drug dosing, the eGFR should be multiplied by the estimated BMI. CHEM PANEL AGAP 15.3 10.0 - 05/25 [place] 20.0 [facility] CHEM PANEL CO2 25 24 - 32 05/25 [facility] CHEM PANEL Calcium Lvl 7.9 8.5 - 10.5 05/25 [facility] CHEM PANEL Chloride Lvl 100 95 - 109 05/25 [facility] CHEM PANEL Potassium 4.3 3.5 - 5.1 05/25 [facility] Lvl [facility] CHEM PANEL Sodium Lvl 136 135 - 145 05/25 [facility] CHEM PANEL Creatinine 0.94 0.50 - 05/25 [place] Lvl 1.40 /2015 [facility] CHEM PANEL Glucose Lvl 113 70 - 99 05/25 [facility] CHEM PANEL BUN 8 7 - 22 05/25 [facility] HEMATOLOGY INR 1.19 0.85 - 05/25 [place] 1.17 /2015 [facility] HEMATOLOGY PT 15.4 12.0 - 05/25 [place] 14.7 [facility] HEMATOLOGY PTT 34.1 22.9 - 10 [place] 35.8 /2015 [facility] PARATHYROID Ca Ion WB 1.07 1.05 - 05/25 [place] PROFILE 1.25 [facility] PARATHYROID Ca Norm WB 1.04 1.05 - 05/25 [place] PROFILE 1.25 [facility] CARDIAC Troponin-T <0.010 0.000 - 05/25 [facility] ENZYMES ng/mL 0.100 [facility] CARDIAC Troponin-I <0.02 0.00 - 05/25 [place] ENZYMES 0.40 [facility] CARDIAC Total CK 57 12 - 191 05/25 [facility] ENZYMES [facility] CHEM PANEL A/G Ratio 1.1 0.7 - 1.6 05/25 [facility] CHEM PANEL Bili 0.4 0.0 - 1.0 05/25 Indirect [facility] CHEM PANEL Bili Total 0.6 0.2 - 1.3 05/25 [facility] CHEM PANEL Bili Direct 0.2 0.0 - 0.3 05/25 [facility] CHEM PANEL AST 13 0 - 37 05/25 [facility] CHEM PANEL Alk Phos 113 39 - 136 05/25 [facility] CHEM PANEL Globulin 2.7 2.7 - 4.2 05/25 [facility] CHEM PANEL Total 5.7 6.4 - 8.4 05/25 Protein [facility] CHEM PANEL Albumin Lvl 3.0 3.5 - 5.0 05/25 [facility] CHEM PANEL ALT 14 0 - 65 05/25 [facility] CHEM PANEL Phosphorus 3.2 2.5 - 4.5 05/25 [facility] CHEM PANEL Magnesium 1.7 1.8 - 2.4 05/25 [facility] Lvl [facility] BLOOD BANK AB Int Anti-E 05/25 [facility] BLOOD BANK Path AB Transfusion 05/25 [facility] Note This is a 71 y/o male who was admitted on 05/24/16 for a subdural hematoma. An anti-E is detected in this patients serum. This antibody is directed against the E antigen of the Rh blood group system. It is typically IgG in nature and forms in response to RBC sensitizati on via transfusion . Anti-E antibody is considered a clinically significant antibody; it has been associated with hemolytic transfusion reactions. Should RBC transfusion be necessary, E-negative crossmatch- compatible blood will be issued. Little difficulty in obtaining compatible blood is anticipated since 70% of the donor population lacks the E-antigen. The patients electronic medical record has been reviewed for relevant information . I have reviewed the test results and concur with the resident Dr. Lillian Alcantar's interpretat ion. CPT: 00093-MD BLOOD BANK ABO/Rh O POS 05/25 [facility] RESULTS [facility] BLOOD BANK Antibody Positive 1 05/25 Result [facility] (05/24/16 9:09 PM) Comment: [facility] 05/25/2016 Center 01:18 [id number]
"Significant Findings called to Baljinder CAPUTO at 0115 by DMITRIY.Read Back OK."
<br/ >05/25/2016 01:14 [id number]
Patient has unexpected antibodies. Allow extra time for additional crossmatches. HEMATOLOGY Max 68 52 - 71 05/25 [facility] HEMATOLOGY G-value 10.4 5.0 - 11.6 05/25 [facility] HEMATOLOGY Estimated % 0.4 0.0 - 7.5 05[place] [facility] HEMATOLOGY ACT (TEG) 121 86 - 118 05/25 [facility] HEMATOLOGY [place] 0.7 05/25 [facility] HEMATOLOGY R-time Rapid 0.8 0.4 - 0.7 05/25 Eric [facility] HEMATOLOGY K-time Rapid 0.8 0.6 - 2.3 05/25 [facility] HEMATOLOGY Angle Rapid 80 64 - 80 05/25 [facility] HEMATOLOGY Eosinophils 1.7 0.0 - 4.0 05/25 [facility] HEMATOLOGY Eosinophils 0.1 0.0 - 0.5 05/25 [facility] # /2015 [facility] HEMATOLOGY Basophils # 0.1 0.0 - 0.2 05/25 [facility] HEMATOLOGY PTT 32.0 22.9 - 05/25 [facility] 35.8 /2016 [facility] Pathology Reports No Data Provided for This Section Diagnostic Reports Report Value Date Source Brain wo contrast CT EXAM: CT BRAIN WITHOUT CONTRAST 05/27/2016 [facility] DATE: 05/27/2016 6:[address] INDICATION: Altered level of consciousness COMPARISON: 05/25/2016 at 2343 TECHNIQUE: Routine axial CT images of the brain were obtained. DLP: 1174 mGy-cm FINDINGS: Right parietal convexity kevin l zane holes from subdural hematoma evacuation. Extra-axial drain remains in place without change in positioning. No change in the persistent subdural blood products with scattered foci of pneumocephalus. The right convexity sulci re main mildly effaced The chapman-white matter differentiation is maintained. The brain parenchyma is normal. No new hemorrhage or edema. Mild bilateral maxillary sinus mucosal thickenin g. IMPRESSION: Stable postoper ative changes after right convexity subdural hematoma evacuation. Brain wo contrast CT EXAM: CT BRAIN 05/25/2016 [facility] dical DATE: 05/25/2016 at 23:43 Center CLINICAL INFORMATION: Bleeding COMPARISON: Magnetic resonance imaging brain 3:26 TECHNIQUE: Axial images of t brain were obtained from the skull base through the vertex without contrast material administration. DLP: 1177 mGycm DISCUSSION: Interval placement of a subd ural drainage catheter along the right cerebral convexity with decrease in the right hemispheric subdural hematoma. Postoperative pneumocephalus. Improvement in the right to left midline shift and mass effect upon the right lateral ventricle. No new intracranial hemorrhage. Right frontal and parietal zane holes. IMPRESSION: Interval placement of a drai nage catheter along the right cerebral convexity with decrease in the right hemispheric subdural hematoma and improved mass effect. Brain wo contrast MRI Examination: MRI brain without contrast [facility] DATE: 05/25/2016 Center INDICATION: Radial nerve palsies. FINDINGS: Noncontrast images of the br ain consisting of diffusion-weighted, fluid attenuated, and gradient echo axial images are performed and compared to a head CT dated 05/25/2016. There is no recent ischemic change or ot her parenchymal diffusion abnormality. There is a 2 cm diameter wed ge-shaped area of T2 signal hyperintensity with gyriform hemorrhage in the right occipital pole which could represent contusion. Extensive areas of complex s ubdural hematoma are again noted overlying the right hemisphere with varying ages of hemorrhage and development of multiple septations and internal loculations. These collect ions result in midline shift of 6 mm. The basilar cisterns are widely patent. There is a smaller subdural collection over the left parietal convexity. There is subarachnoid hemorr michelle in the interhemispheric fissure and to a lesser extent in the basilar cisterns. Circumferential mucosal thic kening again noted in the right maxillary sinus. The sinuses and skull base are otherwise clear. The orbits are grossly unremarkable. There are scattered punctate areas of T2 signal abnormality in the periventricular and deep white matter which likely represent chronic small vessel ischemia. IMPRESSION: Solitary area of parenchymal abnormality in the right occipital lobe likely representing contusion. Extensive right-sided subdur al hematoma with multiple areas of loculation and various ages of hemorrhage resulting in moderate mass effect. Resolving subarachnoid hemorrhage. Smaller left parietal subdural hematoma. Chest 1view DX EXAM: XR CHEST 1 VIEW 05/25/2016 [facility] edical DATE: 05/26/2016 3:[address] INDICATION: Respiratory distress COMPARISON: 05/24/2016 TECHNIQUE: AP chest IMPRESSION: 1. Both lungs are clear. Cos tophrenic recesses are sharp. Cardiomediastinal silhouette within normal limits. No acute osseous abnormalities. Brain-Outside Consult Exam: CT head without contrast 05/24/2016 [facility] CT INDICATION: Intracranial hemorrhage Center COMPARISON: None. TECHNIQUE: Axial computed tomography scan of the brain without contrast. FINDINGS: Large hyperacute subdural he matoma overlying the right cerebral hemisphere measuring up to 1.8 cm in maximum thickness. Associated mass effect over the adjacent brain parenchyma resulting in 0.8 cm righ t-to-left midline shift. Par tial effacement of the right lateral ventricle. The chapman-white matter differentiation is otherwise maintained. Visualized paranasal sinuses are clear. Small right mastoid effusion. The bony calvarium is intact. IMPRESSION: Large hyperacute subdural he matoma overlying the right cerebral hemisphere measuring up to 1.8 cm in thickness. Associated 0.8 cm [id number] midline shift. Brain/Neck CTA EXAM: CT ANGIOGRAM OF THE HEAD 05/24/2016 [facility] EXAM: CT ANGIOGRAM OF THE NECK C enter DATE: 05/24/2016 CLINICAL HISTORY: 71 years old Male patient with Cranial nerve palsy/palsies TECHNIQUE: Rapid acquisition spiral CT images of the neck were obtained between the aortic arch and the skull base during intravenous infusion of iodinated contrast for the purposes of CT angiography. 3 -D CT angiographic images ar e created using MIP technique at the acquisition workstation. The source images are also presented for interpretation. COMPARISON: None. FINDINGS: CT ANGIOGRAM OF THE NECK: Focus of calcific and noncal cific and is chronic disease at the proximal right vertebral artery near the origin with about 50% stenosis. Otherwise the V1 to V4 segments of the vertebral arteries includi ng origins are patent bilate rally. The common carotid arteries including origins are patent bilaterally. Calcific and noncalcific atherosclerotic disease at the bilateral carotid bulbs and the origins o f the internal carotid arter ies resulting in high-grade stenosis (about 70%) at the origins of bilateral internal carotid arteries. The remaining cervical internal carotid arteries are patent bilaterally. CT ANGIOGRAM OF THE HEAD: There is interval increase i n size of the hyperacute subdural hematoma overlying [...] P2 to P4 segments of the right PERL DEVELOPER compatible w ith diffuse disease. Diffuse changes of centrilobular emphysema in bilateral upper lungs. IMPRESSION: 1. Interval increase in size of the hyperacute subdural hematoma overlying the right cerebral hemisphere now measuring 2.6 cm previously measured 2.0 cm concerning for active bleeding. 2. Diffuse luminal irregular ities of distal sylvian branches of the left MCA and distal branches of the right PERL DEVELOPER compatible with diffuse atherosclerotic disease. Diffuse arteriosclerosis of bilateral c avernous and petrous interna l carotid arteries. 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 3. About 70% stenosis at the origins of bilatera l internal carotid arteries. 4. Diffuse changes of centrilobular emphysema in bilateral upper lungs. The above findings are relay ed to Dr. Fry at 1130 hours on 05/24/[address] Rock Angel Brain wo contrast CT EXAM: CT HEAD WITHOUT CONTRAST 05/24/2016 [facility] DATE: 05/24/2016 8:[address] INDICATION: 71 years old Male patient with histo ry of Hemiparesis. TECHNIQUE: Multiple axial im ages were obtained through the head from vertex to the skull base. Axial bone algorithm reconstruction images are provided. COMPARISON: None. FINDINGS: Acute/hyperacute mixed densi ty subdural hematoma overlying the right cerebral hemisphere measuring 2.0 cm in maximum thickness. There is associated mass effect resulting in right to left midline shift a bout 1.0 cm. There is partia l effacement of the right lateral ventricle. Additional subdural hematoma is seen along the falx and bilateral tentorial leaflets. Chronic encephalomalacia in the right parie to-occipital lobes. Inflamma tory mucosal thickening of bilateral maxillary sinuses. The remaining paranasal sinuses are clear. No mastoid effusion is identified. The bony calvarium is intact. IMPRESSION: 1. Acute/hyperacute subdura l hematoma overlying the right cerebral hemisphere measuring up to 2.0 cm in maximum thickness. Associated 1.0 cm midline shift. 2. Chronic encephalomalacia in the right pariet o-occipital lobes. Chest 1view DX EXAM: XR CHEST 1 VIEW 05/24/[address] [facility] DATE: 05/24/2016 8:[address] INDICATION: TIA COMPARISON: None TECHNIQUE: AP chest FINDINGS: Lines and tubes: None. Lungs and pleura: Mild bibasilar subsegmental at electasis. Heart and mediastinum: The h eart size is normal for technique. Significant tortuosity of the aorta noted. Bones: No acute bony abnormality is identified. IMPRESSION: 1. Mild bibasilar subsegmental atelectasis. 2. Tortuous aorta. Consultation Notes No Data Provided for This Section Discharge Summaries No Data Provided for This Section History and Physicals No Data Provided for This Section Vital Signs Vital Sign Value Date Comments Source Heart Rate 81 08/13/2018 [facility] Respitory Rate 16 08/13/2018 [facility] Systolic (mm Hg) 186 08/13/2018 [facility] Diastolic (mm Hg) 90 08/13/2018 [facility] BMI Calculated 29.11 08/13/2018 [facility] Height 160.02 cm 08/13/2018 [facility] Weight 74.545 08/13/2018 [facility] [place] [place] Neuro Systolic (mm Hg) 178 05/30/2016 [facility] dical Center Diastolic (mm Hg) 88 [facility] [place] Temperature Oral (F) 97.7 F 05/30/2016 [facility] Heart Rate 65 05[facility]30/2016 [facility] Respitory Rate 18 05/30/2016 [facility] Center Respitory Rate 18 05/30/2016 [facility] Heart Rate 71 05/30/2016 [facility] Systolic (mm Hg) 176 05/30/2016 [facility] dical Center Diastolic (mm Hg) 90 05/30/2016 [facility] Temperature Oral (F) 97.8 F 05/30/2016 [facility] Systolic (mm Hg) 113 05/30/2016 [facility] dical Center Diastolic (mm Hg) 62 05/30/2016 [facility] Temperature Oral (F) 98.1 F 05/30/2016 [facility] Respitory Rate 16 05/30/2016 [facility] Center Heart Rate 68 05/30/2016 [facility] BMI Calculated 25.6 05/25/2016 [facility] skinny Center Weight 76.36 05/25/2016 [facility] Height 172.72 cm 05/25/2016 [facility] Weight 76.364 05/25/2016 [facility] BMI Calculated 26.37 05/25/2016 [facility] skinny Center Height 170.18 cm 05/25/2016 [facility] [place] Encounters Location Location Encounter Encounter Reason Attending ADM DC Stat us Source Details Type Number For Provider Date Date Visit [facility] [id number] [place] 05/25 05/30 Bandar Bahenad /2015 [facility] Outpatient [id number] TRAUMA 06/12 Active [facility] /2015 [place] Outpatient [id number] TRAUMA 07/24 Active [facility] Outpatient [id number] ALINA 08/13 Active [facility] MNA Outpatient [id number] Alina 08/13 08/14 [facility] [place] [place] Neurology [facility] [place] [facility] Phone [id number] 08/17 08/19 [facility] [place] [id number] ALINA 05/13 Active [facility] [place] MNA Ambulatory [id number] Alina 05/13 05/13 [facility] [place] [place] Neurology Pre-Reg [facility] [place] Outpatient [id number] Alina 08/31 Active [facility] Jevon MNA Ambulatory [id number] Alina 08/31 08/31 [facility] [place] [place] Neurology Pre-Reg Krell /2019 [facility] [place] Outpatient [id number] Alina 11/14 Active [facility] Jevon MNA Ambulatory [id number] Alina 11/14 11/14 [facility] [place] [place] Neurology Pre-Reg Krell /2019 [facility] [place] Outpatient [id number] Alina 12/14 [facility] [place] MNA Outpatient [id number] Alina 12/14 12/15 [facility] [place] [place] Neurology Kre /2019 [facility] [place] Outpatient [id number] Alina 06/19 [facility] Outpatient [id number] Alina 06/19 [facility] Procedures Procedure Code Date Perfomer Comments Source Abdominal aortic [id number] Had MRI after Mis er [facility]sup[facility]</ [facility] dical sup> [place] Bypass / graft [id number] [facility] [place] [place] [facility] [id number] [facility] [place] [place] [facility] Assessment and Plan Assessment and Plan Date Source Extracted from:Title: Stroke Consult Note 05/30/2016 [facility] Author: Tea Kinney MD Date: 05/24/16 STROKE TEAM Consult Note Requesting Physician/Service: ER Reason for consult: left hemiparesis, possible stroke HISTORY OF PRESENT ILLNESS: 71 y/o man with PMH of prior strokes and TIAs (no residual deficit), abdominal aortic aneurysm, HTN, COPD, currently on coumadin for ?PVD who presented to OSH in [facility] due to 1 week of difficulty w alking and falls. He reports hitting his head a couple of times but denies LOC. At some point within the last day, he was noted by medical personnel to have a left facial droop and left hemiparesis. He was seen at OSH where CT head showed acute on chronic right subdural hematoma with INR 2.7. He was given FFP and vitamin K andaccepted by neurosurgery as transfer to ER for evaluation. CT head repeated here showed right acute on chronic SDH with 8mm right to left MLS, possible small b/l paratentorial SDH, and increased hypodensity in R MCA and AIMEE territories that may represent early ischemic change. Stroke was consulted for this finding. Patient did not receive tpa due to being outside the window and the presence of subdural hematoma on CT. At baseline, patient is ambulatory without assistive devices . GCS on admission 15. REVIEW OF SYSTEMS: GEN: no fever, chills, weight loss, fatigue EYES: no blurred vision, double vision CARDIO: no chest pain, palpitations PULM: no shortness of breath, cough GI: no nausea, vomiting, diarrhea, no abd pain : no frequency, dysuria, hematuria NEURO: see HPI SKIN: no rash or lesion MSK: no pain, swelling, redness, heat in muscles, no limited ROM, weakness, or atrophy, no cramps LYMPH/IMMUNO: No lymph node enlargement/tenderness, no heat/ cold intolerance PAST MEDICAL HISTORY: prior strokes and TIAs (no residual defi cit), abdominal aortic aneurysm, HTN, COPD, currently on coumadin for ?PVD PAST SURGICAL HISTORY: no recent surgery FAMILY MEDICAL HISTORY: No strokes, no neurologic issues SOCIAL HISTORY: Former smoker, denies alcohol, and illicit drug use. [facility] MEDICATIONS: coumadin daughter to bring list ALLERGIES: NKDA PHYSICAL EXAM: Vitals Tmp(F) Tmp(C) Ttype B P MAP Pulse RR SpO2 FIO2 ETCO2 05/24 22:28 ---- ---- ---- 1 69/77 110 62 18 99 2.0L/m --- 05/24 21:30 ---- ---- ---- 1 57/77 110 60 18 96 2.0L/m --- 05/24 20:40 98.2 36.78 oral 168/77 --- 62 18 100 2.0L/m --- 24 Hr Tmax: 98.2F (36.78c) at 05/24 20:4 0 Vital Signs are the last 5 in the past 48 hours. 24 Hr Tmin: 98.2F (36.78c) at 05/24 20: 40 Weights are the last 5 in 60 days, plus initial. Date Wt(kg) Wt(lb) Ht(cm) Ht(in) Method BM I BSA 05/24 (initial) 76.36 168.00 Estimated 26 .4 05/24 170.18 67.00 Stated HEAD - Normocephalic and atraumatic LUNGS - Clear to auscultation, no rales or rhonchi CVS - Rate rhythm regular, no murmu r, no carotid bruit, equal pulses bilaterally ABDOMEN - Soft, non tender, with normal bowel sounds. NEUROLOGY: AAO*3 Speech: fluent but dysarthric, comprehen dany intact, repetition and naming intact special procedures tech: pupils 3mm equal and briskly reacti ve, intact visual jasso on confrontation testing, EOMs full, intact sensation V1-V3 bilaterally, left lower facial palsy, grossly intact hearing bilaterally, equ al palatal elevation, full SCM strength bilaterally, tongue midline Motor: Tone: Normal Power: 5/5 in all groups of muscles in all four limbs except LUE 4/5 Reflexes: 2+ symmetrical bilaterally Plantar: Flexor Drift: absent Sensory: intact light touch throughout Cerebellar signs: Intact FNT Gait: deferred NIH Stroke Scale (NIHSS) 0 1a. Level of Consciousness; 0-alert 1-drowsy 2-stupor 3-c omatose 0 1b. LOC Questions month and age; 0-both 1-one 2-neithe r 0 1c. LOC Commands open/close eyes, instructional technologist /release non-paretic hand; 0-both 1-one 2-neither 0 2. Best Gaze; 0-nl 1-partial 2-forced gaze 0 3. Visual Jasso; 0-No visual loss. 1-Partial hemianop ia 2-Complete 3-Bilateral 2 4. Facial Palsy; 0-none 1-minor 2-partial 3-complete 0 5. Motor - R arm; 0-No drift 1-Drift 2 -Some antigravity 3-No antigravity 4- No movement 0 6. Motor - R leg; 0-No drift 1-Drift 2 -Some antigravity 3-No antigravity 4- No movement 1 7. Motor - L arm; 0-No drift 1-Drift 2 -Some antigravity 3-No antigravity 4- No movement 0 8. Motor - L leg; 0-No drift 1-Drift 2 -Some antigravity 3-No antigravity 4- No movement 0 9. Limb Ataxia; 0 absent 1 - 1limb 2 - 2 limbs 0 10. Sensory; 0-nl 1-partial loss 2-dense loss 0 11. Best Language; 0-nl 1-mild/mod 2-severe 3-mute 1 12. Dysarthria; 0-nl 1-mild/mod 2-severe x-untest able 0 13. Extinction and Inattention (formerly Neglect); 0-none 1-partial 2-complete TOTAL SCORE 4 SIGNIFICANT LABS: 24hr Labs 05/24 2109 Glucose Lvl 84 BUN 10 Creatinine Lvl 0.99 Sodium Lvl 135 Potassium Lvl 3.5 Chloride Lvl 97 CO2 30 AGAP 11.5 Calcium Lvl 8.3 L eGFR 75 PTT 32.0 PT 17.6 H INR 1.42 H WBC 6.3 RBC 3.59 L Hgb 10.8 L Hct 31.2 L MCV 87.0 MCH 30.1 MCHC 34.6 RDW 14.6 H Platelet 206 MPV 8.2 Segs 65.5 Monocytes 10.1 Lymphocytes 21.6 Eosinophils 1.7 Basophils 1.1 H Segs-Bands # 4.1 Lymphocytes # 1.4 Monocytes # 0.6 Eosinophils # 0.1 Basophils # 0.1 ACT (TEG) Rapid 121 H [place] Rapid 0.7 R-time Rapid 0.8 H K-time Rapid 0.8 Angle Rapid 80 Max Amplitude Rapid 68 G-value Rapid 10.4 Estimated % Lysis Rapi 0.4 DIAGNOSTIC TESTS: CT Head: right acute on chronic SDH with 8mm right to left MLS, possible small b/l paratentorial SDH, and increased hypodensity in R MCA and AIMEE territories that may represent early ischemic change. ASSESSMENT: 71 y/o man with PMH of prior strokes and TIAs (no residual deficit), abdominal aortic aneurysm, HTN, COPD, currently on coumadin for ?PVD who presented to OSH in [facility] due to 1 week of difficulty w alking and falls and was found to have r ight acute on chronic SDH with 8mm right to left MLS for which he was transferred for neurosurgical evaluation. On repeat CT, there are hypodensities in the R MCA and AIMEE territories, so stroke was cons ulted for these findings. Possible early ischemic changes, but may also be secondary to acute on chronic SDH. Recommendations: - CTA head/neck - MRI brain stroke limited - anticoagulation and antiplatelet held in setting of acute on chronic SDH - if MRI is positive for stroke, would e xpand stroke work-up to include TTE, lipid panel, hemoglobin a1c, start statin - goal SBP 110-150. Would avoid dropping BP too low until vessel imaging is obtained. Case discussed with on-call stroke braulio short, Dr. Mujica. Stroke will follow as consult. Tea Kinney MD Neurology, PGY3 ---- MRI shows no stroke. Patient to OR. Consult cancelled. Ildefonso Bowser MD MPH Stroke Attending c [phone] Plan of Care No Data Provided for This Section Social History Social History Date Source Social History TypeResponse 12/15/2019 [facility] Smoking Status Former smoker; Type: Chewing tobacco; Ex posure to Tobacco Smoke None; Cigarette Smoking Last 365 Days No; Reg Smoking Cessation Counseling No; Number of years: 51; Total pack years: 101; Started at age: 15.0; Stopped at age: 66; entered on: 12/15/19 Social History TypeResponse 05/25/2016 [facility] Smoking Status Former smoker; Type: Chewing tobacco; Nu mber of years: 51; Total pack years: 101; Started at age: 15.0; Stopped at age: 66; Exposure to Tobacco Smoke None; Cigarette Smoking Last 365 Days No; Reg Smoking Cessation Counseling No Family History No Data Provided for This Section Advance Directives No Data Provided for This Section Functional Status No Data Provided for This Section
--- OUTSIDE RECORDS SUMMARY | 2020-04-25 18:23 | XMS REPORT | Continuity of Care Document ---
:1945 Author Organization [facility] t Address [address] [place] [address] Care Team Providers Name Role Phone Uzair De La Cruz DO Primary Care Physician Camron Moody MD Attending Clinician Modesto Elliott Attending Clinician Lars RN Attending Clinician Unavailable Maritza Cote MD Attending Clinician Julee Montalvo MD Attending Clinician Brielle JARRELL Attending Clinician Unavailable Maritza TIM Attending Clinician Unavailable MELI HDZ Attending Clinician Unavailable Franklin Prather Attending Clinician ANSON Admitting Clinician Unavailable Maritza TIM Admitting Clinician Unavailable MELI HDZ Admitting Clinician Unavailable Ivan Salguero Admitting Clinician Payers Payer Name Policy Policy Number Effective Expiration Source Type Date Date MEDICAREMEDICARE PART xxxxxxxxxxx 2004 Jose D Glaser AND 00:00:00 [facility] [id number] [place] Condition Condition Condition Status Onset Resolution Last Treating Co mments Source Name Details Category Date Date Treatment Clinician Date PAD PAD Disease Active 2018-[address] [place] (periphera (periphera 0-30 Me thodi l artery l artery 00:00: st disease) disease) 00 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 [place] deficiency deficiency 0-30 Me thodi 00:00: st 00 PAD PAD Disease Active 2018-08 [facility] (periphera (periphera 0-18 Assessmen Methodi l artery l artery 00:00: t & Plan: st disease) disease) 00 Patient with symptomat ic periphera l arterial disease. We discussed periphera l arterial disease, its etiology and need for medical managemen t be contribut ing risk factors . We discussed natural history including claudicat ion progressi ng to rest pain, ulceratio ns and possibly limb loss. We discussed treatment options including medical therapy, endovascu lar therapy with angioplas ty or stenting, and surgical bypass. We discussed trying to avoid amputatio n and the need to go in a stepwise fashion. 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-gav e the option to remove graft today since it is completel y infected as seen on PET scan, but pt will come back sometime next weekPlan: -Plan for graft explantat ion VTE VTE Disease Active [facility] (venous (venous 7-17 Assessmen Metho di thromboemb thromboemb 00:00: t & Plan: st olism) olism) 00 Plan: Bilateral LE vein mapping HZANE (acute ZHANE (acute Disease Active [facility] kidney kidney 8-28 [facility] - injury) injury) 00:00: Medical 00 Center Abscess of Abscess of Disease Active [facility] right right 8-15 [facility] - groin groin 00:00: Medical 00 Center S/P TAVR S/P TAVR Disease [facility] (trans[facility]ath (transcath 5-03 Karine kes - eter eter 00:00: Medical aortic aortic 00 Center valve valve replacemen replacemen t) t) Aneurysm Aneurysm Disease Active [facility] of artery of artery 4-27 [facility] s - of lower of lower 00:00: Medica l extremity extremity 00 Cent er SARAH Diagnosis Active 2015-082016-05-26 Memoria BILLING 0-15 12:09:00 l 5060 20:28: Jevon SMITH 00 BILLING 5060 Active 05/24/2016 [facility] SDH Diagnosis Active 2015-082016-06-05 Mem oria 0-15 23:20:00 l SDH 00:00: Jevon 00 Active 05/24/2016 [facility] Gastrointe Gastrointe Problem Active [facility] stinal stinal [facility] - hemorrhage hemorrhage Me moria , , l unspecifie unspecifie Ou tpati d d ent gastrointe gastrointe Cl inics stinal stinal hemorrhage hemorrhage type type Thoracic Thoracic Problem Active [facility] aortic aortic [facility] - aneurysm aneurysm Memori a without without l rupture rupture Outpati ent Clinics Hypercoagu Hypercoagu Problem Active [facility] lable lable [facility] - state state [facility] 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[facility] obstructiv obstructiv Karine kes - e e Memoria pulmonary pulmonary l disease disease [facility] Vitamin B Vitamin B Problem Active [facility] 12 12 [facility] - deficiency deficiency Me moria l [facility] Chronic Chronic Problem Active [facility] back pain back pain Luke s - Memoria l [facility] Degenerati Degenerati Problem Active [facility] on of on of [facility] - lumbar or lumbar or Micah taylor lumbosacra lumbosacra l l l Outpati interverte interverte en t bral disc bral disc Clin ics Benign Benign Diagnosis Active [facility] hypertroph hypertroph Karine kes - y of y of Memoria prostate prostate l [facility] Depression Depression Diagnosis Active [facility] with with [facility] - anxiety anxiety Memoria l [facility] Hemiplegia Hemiplegia Problem Active [facility] and and [facility] - hemiparesi hemiparesi Me moria s s l following following Outp ati other other ent cerebrovas cerebrovas Cl inics cular cular disease disease affecting affecting left left non-domina non-domina nt side nt side Cerebrovas Cerebrovas Problem Active [facility] cular cular [facility] - accident accident [facility]ori a l [facility] Dysphagia Dysphagia Problem Active [facility] following following Luke s - cerebral cerebral Memori a infarction infarction l [facility] Nontraumat Nontraumat Diagnosis Active [facility] ic chronic ic chronic Karine kes - subdural subdural Memori a hemorrhage hemorrhage l [facility] Dysarthria Dysarthria Problem Active [facility] following following Luke s - cerebral cerebral Memori a infarction infarction l [facility] Clinics Generalize Generalize Problem Active [facility] d weakness d weakness Karine kes - Memoria l [facility] Memory Memory Problem Active [facility] loss loss [facility] - Memoria l [facility] Anticoagul Anticoagul Problem Active [facility] ated ated [facility] - Memoria l [facility] Hyperlipid Hyperlipid Diagnosis Active [facility] emia, emia, [facility] - mixed mixed Memoria l [facility] Physical Physical Problem Active [facility] debility debility kes - Memoria l [facility] Aortic Aortic Diagnosis Active [facility] valve valve [facility] - stenosis stenosis Memori a l [facility] Insomnia Insomnia Diagnosis Active [facility] - Memoria l [facility] H/O TIA H/O TIA Problem Active [facility] (transient (transient Karine kes - ischemic ischemic Memori a attack) attack) l and stroke and stroke Ou tpa ent Clinics Aortic Aortic Diagnosis Active [facility] aneurysm, aneurysm, Luke s - abdominal abdominal Micah taylor l [facility] Nicotine Nicotine Problem Active [facility] dependence dependence Karine kes - Memoria l [facility] H/O fall H/O fall Problem Active [facility] - Memoria l [facility] Occlusion Occlusion Diagnosis Active [facility] and and [facility] - stenosis stenosis Memori a of carotid of carotid l artery artery [facility] Peripheral Peripheral Diagnosis Active [facility] vascular vascular [facility] disease [facility] Tremor Tremor Diagnosis Active [facility] - Memoria l [facility] Benign Benign Diagnosis Active [facility] essential essential Luke s - HTN HTN Memoria l [facility] Vitamin D Vitamin D Diagnosis Active [facility] deficiency deficiency Karine kes - Memoria l [facility] Anemia in Anemia in Problem Active [facility] chronic chronic [facility] - illness illness [facility] Anemia, Anemia, Problem Active [facility] unspecifie unspecifie Karine kes - d type d type [facility] Watery Watery Problem Active [facility] diarrhea diarrhea [facility] - Memoria l [facility] H/O aortic H/O aortic Problem Active [facility] valve valve [facility] - replacemen replacemen Me moria t with t with l porcine porcine [facility] valve valve ent Clinics Asymptomat Asymptomat Problem Active [facility] ic ic [facility] - hypertensi hypertensi Me moria ve urgency ve urgency l Outpati ent Clinics Factor V Factor V Problem Active [facility] deficiency deficiency Karine ke - [facility] l Outpati ent Clinics Non-healin Non-healin Diagnosis Active [facility] g surgical g surgical [facility] - wound of wound of Memori a right right l groin, groin, Outpati subsequent subsequent en t encounter encounter Clin ics Renal Renal Diagnosis Active [facility] insufficie insufficie Karine kes - ncy ncy Memoria l Outpati ent Clinics Hypocalcem Hypocalcem Problem Active [facility] ia ia [facility] l Outpati ent Clinics Polyneurop Polyneurop Diagnosis Active [facility] athy in athy in [facility] - diseases diseases Memori a classified classified l elsewhere elsewhere Outp ati ent Clinics Atheroscle Atheroscle Diagnosis Active [facility] rosis of rosis of [facility] [place] [facility] arteries arteries l of right of right Outpat i leg with leg with ent ulceration ulceration Cl inics of thigh of thigh Hypertensi Hypertensi Diagnosis Active [facility] ve heart ve heart [facility] - and and Memoria chronic chronic l kidney kidney Outpati disease disease ent with heart with heart Cl inics failure failure and stage and stage 1 through 1 through stage 4 stage 4 chronic chronic kidney kidney disease, disease, or or unspecifie unspecifie d chronic d chronic kidney kidney disease disease Severe Severe Disease Active [facility] aortic aortic [facility] - stenosis stenosis Medica l [place] Anemia Anemia Disease Active [facility] Hyperlipid Hyperlipid Disease Active [facility] emia emia [facility] Seizures Seizures Disease Active [facility] Blood Blood Disease Active Overview: [facility] clotting [facility]ting 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[facility] VIII VIII [facility] - deficiency deficiency Me dical Center Atrial Atrial Disease Active [facility] fibrillati fibrillati kes - on on [facility] 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 [facility] - aneurysm aneurysm Medica l [place] DVT (deep DVT (deep Disease Active [facility] venous venous [facility] - thrombosis thrombosis Me dical ) ) Center Abdominal Problem Resolve 2019-12-17 M emoria aortic d 23:33:19 l aneurysm [place] (disorder) Abdominal aortic aneurysm (disorder) Resolved Problem 12/17/2019 [facility] Chronic Problem Active 2019-12-17 Micah taylor obstructiv 23:33:19 l e lung Chronic Jevon disease obstructiv (disorder) e lung disease (disorder) Active Problem 12/17/2019 [facility] Essential Problem Active 2019-12-17 Me moria tremor 23:33:19 l (disorder) [place] Essential tremor (disorder) Active Problem 12/17/2019 [facility] Hypertensi Problem Active 2019-12-17 M emoria ve 23:33:19 l disorder, Jevon systemic Hypertensi arterial ve (disorder) disorder, systemic arterial (disorder) Active Problem 12/17/2019 [facility] Subdural Problem Active 2019-12-17 Mem oria hematoma 23:33:19 l (disorder) Subdural He rmann hematoma (disorder) Active Problem 12/17/2019 [facility] Coxitis Problem Active 2019-12-17 Micah taylor (disorder) 23:33:19 l Coxitis [place] (disorder) Active Problem 12/17/2019 [facility] Lumbar Problem Active 2019-12-17 Memor ia radiculopa 23:33:19 l thy Lumbar [place] (disorder) radiculopa thy (disorder) Active Problem 12/17/2019 [facility] NONTRAUMAT Diagnosis Active 2016-06-05 Memoria IC 23:20:00 l SUBDURAL Jevon HEMORRHAGE NONTRAUMAT , UNSPEC IC SUBDURAL HEMORRHAGE , UNSPEC Active [facility] History of Past Illness Condition Condition Condition Status Onset Resolution Last Treating Co mments Source Name Details Category Date Date Treatment Clinician Date Infection Infection Disease Resolve 2018-082019-06-17 2019-06-[address] [place] and and d 0-24 00:00:00 08:51:08 Method i inflammato inflammato 00:00: st ry ry 00 reaction reaction due to due to vascular vascular device, device, implant, implant, and graft and graft Allergies, Adverse Reactions, Alerts Allergy Allergy Status Severity Reaction(s) Onset Inactive Treating Comm ents Source Name Type Date Date Clinician No Known No Known Active Memori a Medicati Medicati l on on Jevon Casiano s s Social History Social Habit Start Date Stop Date Quantity Comments Source History of tobacco Current smoker Ho charlie [facility] use Sex Assigned At Mumtaz Pettit ethodist Cigarettes smoked 2019-06-10 2019-06-10 Mumtaz Maciel current (pack per 00:00:00 00:00:00 day) - Reported Cigarette 2019-06-10 2019-06-10 Mumtaz Celis ist pack-years 00:00:00 00:00:00 Alcohol intake 2019-06-10 2019-06-10 Ex-drinker Mumtaz Peng thodist 00:00:00 00:00:00 (finding) Alcohol Comment 2019-05-27 2019-05-27 quit ~2004 Mumtaz Pettit ethodist 00:00:00 00:00:00 Tobacco Comment 2017-12-09 2017-12-[address] Karine kes - 00:00:00 00:00:00 [facility] Smoking Status Start Date Stop Date Source Former smoker 2019-06-10 00:00:00 2019-06-10 00:00:00 Mumtaz Maciel Medications Ordered Filled Start Stop Current Ordering Indication Dosage Frequency Signature Comments Components Source Medication Medication Date Date Medication? Clinician (SIG) Name Name gabapentin Yes 300 mg = 1 M emoria 300 MG Oral 5-07 cap, PO, l Capsule 15:51: BID, # 60 [place] nn 00 cap, 5 Refill(s), Pharmacy: [facility] gabapentin Yes See Memoria 300 MG Oral 4-03 Instructio l Capsule 14:22: ns, # 90 [place] 27 ea, Refill(s) 1, TAKE ONE (1) CAPSULE(S) BY MOUTH AT BEDTIME., Pharmacy: [facility] [place] CHOLECALCIF 2018-08 Yes QD Take by Rodolfo concepcion ROC, 1-08 mouth Methodi VITAMIN D3, 15:48: daily. st ORAL 41 polyethylen 2018-08 Yes Q24H Take by Rodolfo concepcion e glycol 1-08 mouth Methodi (GLYCOLAX) 15:48: daily as st 17 41 needed. gram/dose powder albuterol 2018-08 Yes 1{puff} Inhale 1 [place] (PROAIR 1-08 puff. Methodi HFA,PROVENT 15:48: st [place] 41 HFA,VENTOLI N HFA) 90 mcg/actuati on inhaler clonIDINE 2018-08 Yes .1mg Take 0.1 [place] (CATAPRES) 1-08 mg by Methodi 0.1 MG 15:48: mouth as st tablet 41 needed. lisinopril 2018-08 Yes 40mg QD Take 40 mg [place] (PRINIVIL) 08 by mouth Metho di 40 mg 15:48: every st tablet 41 morning. topiramate 2018-08 Yes 100mg QD Take 100 [place] (TOPAMAX) 1-08 mg by Methodi 100 MG 15:48: mouth st tablet 41 every morning. warfarin 2018-08 Yes 7mg QD Take 7 mg [place] sodium 08 by mouth Methodi (WARFARIN 15:48: daily. st ORAL) 40 ferrous 2018-08- No 325mg Q.5D Take 1 [place] sulfate 325 08-17 tablet Metho di (65 FE) MG 00:00: 23:59 ([address] tablet 00 :00 total) by mouth 2 (two) times a day with meals for 30 days. carvedilol 2018-08- No 3.125mg Q.5D Take 1 [place] (COREG) 08-17 tablet Methodi 3.125 MG 00:00: 23:59 (3.[address] tablet 00 :00 total) by mouth 2 (two) times a day for 30 days. atorvastati 2018-08- No 40mg QD Take 1 Rodolfo ston n (LIPITOR) 08-17 tablet (40 M ethodi 40 MG 00:00: 23:59 mg total) st tablet 00 :00 by mouth nightly for 30 days. ascorbic 2018-08- No 500mg QD Take 1 [place] acid, 08-17 tablet Methodi vitamin C, 00:00: 23:59 ([address] (VITAMIN C) 00 :00 total) by 500 MG mouth tablet daily for 30 days. amoxicillin 2018-08- No 500mg [id number] Take 1 Pandya (AMOXIL) 08-17 [id number] capsule M ethodi 500 MG 00:00: 23:59 3D ([address] capsule 00 :00 total) by mouth 3 (three) times a day for 5 days. omeprazole 2018-08- No 20mg QD Take 20 mg Pand[place] (PriLOSEC) 0-30 10-30 by mouth Meth jessica 20 MG 07:36: 00:[address] capsule 55 :00 morning. aspirin 2018-08 No 81mg QD Take 81 mg Rodolfo ston (ECOTRIN) 0-30 10-30 by mouth Metho di 81 MG 07:36: 00:[address] enteric 06 :00 coated tablet enoxaparin 2018-08 No 80mg Q.5D Inject 0.8 Pand[place] (LOVENOX) 0-24 11-08 mL (80 mg Meth jessica 80 mg/0.8 00:00: 00:00 total) st mL syringe 00 :00 under the skin 2 (two) times a day for 11 doses. Follow instructio ns provided by CHRYSTAL aspirin-skinny 2018-08 No 81mg Take 81 mg Pandya cium 0-18 10-18 by mouth. Methodi carbonate 15:55: 00:00 st 81 mg-300 18 :00 mg calcium(777 mg) tablet tiZANidine 2018-08 Yes 4mg Q.25D Take 4 mg [place] (ZANAFLEX) 0-05 by mouth 4 Met hodi 4 MG tablet 00:00: (four) st 00 times a day. amLODIPine 2019-0 Yes QD every [place] (NORVASC) 9-02 morning. Method i 2.5 mg 00:00: st tablet 00 gabapentin 2018-0 Yes QD nightly. Rodolfo concepcion (NEURONTIN) 8-22 Methodi 300 mg 00:00: st capsule 00 amitriptyli 2018- Yes QD nightly. Jose D guerra ne (ELAVIL) 7-04 Methodi 75 MG 00:00: st tablet 00 GABAPENTIN Yes = 1 cap, Mem oria CAP 300MG 5-28 PO, l 14:33: Bedtime, # [place] 53 30 ea, Refill(s) 5, Pharmacy: [facility] gabapentin Yes 300 mg = 1 M emoria 300 MG Oral 1-08 cap, PO, l Capsule 23:41: Bedtime, # Herm francisco 00 30 cap, 3 Refill(s), Pharmacy: [facility] amitriptyli Yes 75 mg = 1 M emoria ne 75 mg 1-04 tab, PO, l oral tablet 22:41: Bedtime, # Jevon 00 30 tab, 0 Refill(s) amLODIPine Yes 5 mg = 1 Mem oria 5 mg oral 1-04 tab, PO, l tablet 22:41: Daily, # Jevon 00 90 tab, 0 Refill(s) primidone Yes = 1 tab, Micah taylor 250 mg oral 1-04 PO, Daily, l tablet 22:35: # 30 tab, [place] 26 9 Refill(s), Pharmacy: [facility] topiramate Yes 100 mg = 1 M emoria 100 mg oral 1-04 tab, PO, l tablet 22:35: BID, # 60 [place] 00 tab, 9 Refill(s), Pharmacy: [facility] honey 100 % Yes 1{appli QD Apply [address] [facility] Pste 8-21 cation} applicatio [facility] - 00:00: n Medical 00 topically Center daily. tamsulosin Yes .4mg QD Take 1 [facility] (FLOMAX) 6-29 capsule [facility] - 0.4 mg Cp24 00:00: (0.4 mg Med ical 24 hr 00 total) by Center capsule mouth daily. tamsulosin 2019- No .4mg Take 0.4 [place] (FLOMAX) 6-29 10-18 mg by Methodi 0.4 mg 00:00: 00:[address] capsule 00 :00 betamethaso Yes Apply 1-[address] ne, 5-15 grams to [facility]ukes - augmented, 00:00: the Medical (DIPROLENE) 00 affected Cent er 0.05 % area twice cream daily or as directed. Max 8g/day. HYDROcodone Yes [facility] -acetaminop 5-09 [facility]ukes - hen (NORCO 00:00: Medical 10-325) 00 Center 10-325 mg per tablet warfarin Yes 9mg QD Take [address] (COUMADIN) 5-02 by mouth [facility]ukes - 10 MG 06:33: daily. Medical tablet 54 Center topiramate 0 Yes 100mg Q.5D Take [address] (TOPAMAX) 5-02 mg by [facility]ukes - 100 MG 06:32: mouth 2 Medical tablet 52 (two) Center times daily. fentaNYL Yes [facility] (DURAGESIC) 4-24 [facility] - 100 mcg/hr 00:00: Medical patch 00 Center primidone Yes 250mg QD Take [address] (MYSOLINE) 4-09 mg by [facility]ukes - 250 MG 12:10: mouth Medical tablet 19 daily. [place] albuterol 0 Yes 1{puff} Inhale [address] HFA 4-09 puff by [facility]ukes - (VENTOLIN 12:09: mouth via Med ical HFA) 90 07 inhaler Center mcg/actuati every 6 on inhaler (six) hours as needed for Wheezing. atorvastati Yes 10mg QD Take [address] n (LIPITOR) 4-09 by mouth Luke s - 10 MG 12:09: daily. Medical tablet 07 [place] lisinopril Yes 40mg QD Take [address] (PRINIVIL,Z 4-09 by mouth Luke s - ESTRIL) 40 12:09: daily. Medic al MG tablet 07 [place] amitriptyli Yes 50mg QD Take [address] ne (ELAVIL) 4-09 by mouth Luke s - 50 MG 12:09: nightly. Medical tablet 07 [place] fluticasone Yes 1{puff} QD Inhale [address] -vilanterol 4-09 puff by [facility] - (BREO 12:09: mouth via Medical ELLIPTA) 07 inhaler Center 200-25 daily. mcg/dose DsDv tiZANidine Yes 4mg Take [address] (ZANAFLEX) 4-09 by mouth 3 Hasmukh es - 4 MG tablet 12:09: (three) Med ical 07 times Center daily as needed. omeprazole Yes 20mg QD Take [address] (PRILOSEC) 4-09 by mouth [facility]ukes - 20 MG 12:09: daily. Medical capsule 06 [place] cholecalcif 0 Yes 800U QD Take [address] roc 4-09 Units by [facility]ukes - (VITAMIN 12:09: mouth Medical D3) 400 06 daily. Center unit Tab tablet primidone Yes 250mg QD Take [address]on (MYSOLINE) 3-19 mg by Methodi 250 MG 00:00: mouth st tablet 00 nightly. HYDROcodone 2018-0 Yes 4 times Rodolfo ston -acetaminop 3-07 daily as Meth jessica hen (NORCO) 00:00: needed. st 10-325 mg 00 per tablet fentaNYL Yes Every 48 [place] (DURAGESIC) 2-19 hrs Methodi 100 mcg/hr 00:00: st 00 atorvastati 2017-0 2019- No 10mg Take 10 mg Pandya n (LIPITOR) 2-08 10-18 by mouth. Me thodi 10 MG 00:00: 00:00 st tablet 00 :00 Warfarin 2015-08 Yes 5 mg = 1 Memor ia Sodium 5 MG 0-21 tab, PO, l Oral Tablet 14:27: Daily, INR [place] [Coumadin] 00 goal 2-3, # 30 tab, 0 Refill(s) tamsulosin 2015-08 Yes 0.8 mg = 2 M emoria 0.4 mg oral 0-21 cap, PO, l capsule 14:27: Daily, 0 [place] 00 Refill(s) Levetiracet 2015-08 Yes 1,500 mg = Memoria am 500 MG 0-21 3 tab, PO, l Oral Tablet 14:27: P36O-21, # [place] 00 90 tab, 0 Refill(s) Docusate 2015-08 Yes 100 mg = 1 Mem oria Sodium 100 0-21 cap, PO, l MG Oral 14:27: Q12H, # 20 Herm francisco Capsule 00 cap, 0 Refill(s) phenol 2015-08 No Notes: Memoria 0-21 Chlorasept l 03:35: ic [place] Jevon 00 (Same as: Chlorasept ic, Sore Throat [place]) WASTE: F/P - Black; E - Municipal Trash Bin Coumadin 2015-08 No 5 mg, 1 Memori a 0-21 tab, l 02:30: Route: PO, [place] 00 Drug form: TAB, ONCE, Dosing Weight 76.36, kg, Start date: 05/29/16 21:30:00 CDT, Stop date: 05/29/16 21:30:00 CDT Warfarin 2015-08 No 5 mg, 1 Memori a 0-20 tab, l 22:00: Route: PO, [place] Drug form: TAB, Q5PM, Dosing Weight 76.36, kg, Start date: 05/29/16 17:00:00 CDT, Duration: 1 doses or times, Stop date: 05/29/16 17:00:00 CDT Labetalol 2015-08 No Notes: Memori a 0-20 With food. l 14:44: (Same Jevon 00 as:Trandat e, Normodyne) Keppra 2015-08 No Notes: Memoria 0-20 (Same l 11:00: as:) Coumadin 2015-08 No Notes: Memoria 0-19 Nurse to l 22:00: ensure documentat ion of patient education per anticoagul ation policy. Avoid large intake of vitamin-K containing foods diet. WASTE: F/P - P Waste Black; E - P Waste Black (Same As: Coumadin) Clonidine 2015-08 No Notes: Memori a Hydrochlori 0-19 (Same As: l de 0.1 MG 15:30: Catapres) Her mackenzie Oral Tablet 00 Miralax 2015-08 No 17 gm, Memoria 0-19 Route: PO, l 14:00: Daily, [place] Dosing Weight 76.36, kg, Start date: 05/28/16 9:00:00 CDT, Duration: 30 day, Stop date: 06/26/16 9:00:00 STATUS CONTROLLER Remeron 2015-08 No Notes: Memoria 0-19 (Same l 02:00: as:Remeron ) ibuprofen 2015-08 No Notes: Memori a 100 mg/5 mL 0-18 (Same as: l oral 20:00: Motrin Jevon suspension 00 [facility] , Advil [facility] ) Take with food. Duragesic-1 2015-08 No Notes: Micah taylor 00 0-18 (Same as: l 18:00: Duragesic) Jevon 00 Check for product integrity. Apply to intact skin "Remove old patch before applicatio n of new patch" Ibuprofen 2015-08 No Notes: Memori a 0-18 (Same as: l 17:00: Motrin Jevon 00 [facility] , Advil [facility] ) Take with food. 72 HR 2015-08 No 1 patch, Memoria Fentanyl 0-18 Route: l 0.1 MG/HR 14:00: TOP, [place] Transdermal 00 Dosing Patch Weight 76.36, kg, Daily, Start date: 05/27/16 9:00:00 CDT, Duration: 30 day, Stop date: 06/25/16 9:00:00 STATUS CONTROLLER Lisinopril 2015-08 No 40 mg, Memor ia 0-18 Route: PO, l 14:00: Drug form: Jevon 00 TAB, Daily, Dosing Weight 76.36, kg, Start date: 05/27/16 9:00:00 CDT, Duration: 30 day, Stop date: 06/25/16 9:00:00 STATUS CONTROLLER Miralax 2015-08 No Notes: Memoria 0-18 Dissolve l 14:00: in 8 oz of [place] water or juice. (Same as: Miralax) remove 2015-08 No Notes: Memoria patch 0-18 Remove old l 14:00: patch Jevon before applicatio n of new patch. WASTE: F/P - P Waste Black; E - P Waste Black Keppra 2015-08 No Notes: Memoria 0-18 Same as l 12:25: Keppra Jev[place] 00 Mix with 100 mL NS, LR or D5W MEDICATION WASTE Product Size: 500 mg Product Wasted: ___ mg Keppra 2015-08 No Notes: Memoria 0-18 Same as l 09:00: Keppra Jev[place] 00 Mix with 100 mL NS, LR or D5W MEDICATION WASTE Product Size: 500 mg Product Wasted: ___ mg Hydralazine 2015-08 No Notes: Micah taylor 0-18 (Same as: l 08:23: Apresoline Jevon ) Push over 5 minutes heparin 2015-08 No Notes: Memoria 0-18 porcine l 05:00: heparin Jevon Fentanyl 2015-08 No Notes: Memoria 0-18 (Same as: l 04:47: Sublimaze) [place] Preservat emanuel free. Lisinopril 2015-08 No Notes: Memor ia 0-18 (Same as: l 01:00: Prinivil, Jevon 00 Zestril) Fentanyl 2015-08 No Notes: Memoria 0-18 (Same as: l 00:51: Sublimaze) [place] 00 Preservat emanuel free. pneumococca 2015-08 No Notes: Micah taylor l 13-valent 0-18 Lightly l vaccine 00:50: roll vial [place] nn 00 (DO NOT SHAKE) before administra tion. (Same as: Prevnar 13) Albuterol 2015-08 No Notes: Memori a 0.833 MG/ML 0-17 (Same as: l / 21:26: Duoneb) [place] Ipratropium 00 [place] 0.167 MG/ML Inhalant Solution [DuoNeb] mirtazapine 2015-08 Yes 7.5 mg = 1 Memoria 7.5 mg oral 0-17 tab, PO, l tablet 19:52: Bedtime, # [place] nn 00 30 tab, 1 Refill(s) Eszopiclone 2015-08 Yes 1 mg = 1 Me moria 1 MG Oral 0-17 tab, PO, l Tablet 19:52: Bedtime, [place] [Lunesta] 00 PRN for insomnia, # 30 tab, 0 Refill(s) Trazodone 2015-08 No 50 mg = 1 Mem oria Hydrochlori 0-17 tab, PO, l de 50 MG 19:52: TID, # 90 Herm francisco Oral Tablet 00 tab, 0 Refill(s) Acetaminoph 2015-08 Yes 1 tab, PO, Memoria en 325 MG / 0-17 TID, PRN l Hydrocodone 19:52: Pain, # 60 [place] Bitartrate 00 tab, 0 10 MG Oral Refill(s) Tablet [[place] 10/325] lisinopril 2015-08 Yes 40 mg = 1 Me moria 40 mg oral 0-17 tab, PO, l tablet 19:52: Daily, 0 Jevon 00 Refill(s) 12 HR 2015-08 Yes 0.1 mg = 1 Memori a Clonidine 0-17 tab, PO, l Hydrochlori 19:52: Bedtime, # Jevon de 0.1 MG 00 30 tab, 0 Extended Refill(s) Release Tablet 72 HR 2015-08 Yes 1 patch, Memoria Fentanyl 0-17 TOP, Q48H, l 0.1 MG/HR 19:52: # 15 [place] Transdermal 00 patch, 0 Patch Refill(s) [Duragesic] Warfarin 2015-08 No 4 mg = 1 Memor ia Sodium 4 MG 0-17 tab, PO, l Oral Tablet 19:52: Daily, # He rmann [Coumadin] 00 30 tab, 0 Refill(s) Breo 2015-08 Yes 1 puff, Memoria Ellipta 100 0-17 INHALATION l mcg-25 mcg 19:52: , Daily, 0 H ermann inhalation 00 Refill(s) powder Vitamin B12 2015-08 Yes 100 Memori a 100 mcg 0-17 microgram l oral tablet 19:52: = 1 tab, He rmann 00 PO, Daily, # 30 tab, 0 Refill(s) primidone 2015-08 Yes 50 mg = 1 Mem oria 50 mg oral 0-17 tab, PO, l tablet 19:52: BID, # 60 [place] n 00 tab, 0 Refill(s) tizanidine 2015-08 Yes 8 mg = 2 Mem oria 4 MG Oral 0-17 tab, PO, l Tablet 19:52: Q8H, # 180 [place] nn [Zanaflex] 00 tab, 0 Refill(s) Aspirin 81 2015-08 No 81 mg = 1 Me moria MG Enteric 0-17 tab, PO, l Coated 19:52: Daily, # Jevon Tablet 00 90 tab, 3 Refill(s) Vitamin D3 2015-08 Yes 400 Memoria 400 intl 0-17 IntlUnit = l units oral 19:52: 1 cap, PO, H ermann capsule 00 Daily, 0 Refill(s) 200 ACTUAT 2015-08 Yes 2 puff, Micah tayolr Albuterol 0-17 INHALER, l 0.09 19:52: Q6H, PRN Jevon MG/ACTUAT 00 for Metered wheezing, Dose # 8.5 gm, Inhaler 0 [ProAir Refill(s) HFA] Keppra 2015-08 No Notes: Memoria 0-17 Same as l 17:59: Keppra Mix with 100 mL NS, LR or D5W MEDICATION WASTE Product Size: 500 mg Product Wasted: ___ mg Hydralazine 2015-08 No Notes: Micah taylor 0-17 (Same as: l 15:14: Apresoline ) Push over 5 minutes Nicotine 2015-08 No Notes: [facility]oria 0-17 (Same as: l 14:00: Habitrol) "Remove old patch before applicatio n of new patch" WASTE: F/P - P Waste Black; E - P Waste Black [place] + 2015-08 No Notes: Memoria sodium 0-17 Same as l chloride 06:57: Keppra [place] 0.9% INJ 00 Mix with 100 mL 100 mL NS, LR or D5W MEDICATION WASTE Product Size: 500 mg Product Wasted: __0_ mg Keppra 2015-08 No 500 mg, Memoria 0-17 Route: l 06:28: IVPB, Jevon 00 Q24H, Dosing Weight 76.36, kg, Priority: STAT, Start date: 05/26/16 1:28:00 CDT, Duration: 30 day, Stop date: 06/24/16 1:28:00 STATUS CONTROLLER sodium 2015-08 No 1,000 mL, Memori a chloride 0-17 Rate: 50 l 0.9% 1000 02:30: ml/hr, [place] n ml INJ 00 Infuse 1,000 mL over: 20 hr, Route: IV, Dosing Weight 76.36 kg, Total Volume: 1,000, Start date: 05/25/16 21:30:00 CDT, Duration: 30 day, Stop date: 06/24/16 21:29:00 STATUS CONTROLLER Acetaminoph 2015-08 No Notes: Micah taylor en 325 MG / 0-17 (Same as: l Hydrocodone 01:00: [place] Saskia nn Bitartrate 00 325/5) Do 5 MG Oral not exceed Tablet 4gm/day of [[place] acetaminop 5/325] hen. Tylenol 2015-08 No Notes: Do Memor ia 0-17 not exceed l 00:38: 4 gm/day. Jevon 00 (Same as: Tylenol) Albuterol 2015-08 No Notes: SEE Me moria 0.83 MG/ML 0-16 RT l Inhalant 21:04: DOCUMENTAT Her mackenzie Solution 00 ION (Same as: Proventil) Ancef + 2015-08 No Notes: Memoria sodium 0-16 (Same As: l chloride 21:00: Ancef, [place] 0.9% INJ 00 Kefzol) 100 mL MEDICATION WASTE Product Size: 1000 mg Product Wasted: ___ mg Ondansetron 2015-08 No Notes: Micah taylor 0-16 (Same as: l 20:57: Zofran) [place] 00 MEDICATION WASTE Product Size: 4 mg Product Wasted: ___ mg Hydromorpho 2015-08 No Notes: Micah taylor ne 0-16 (Same as: l 20:57: Dilaudid) Naloxone 2015-08 No Notes: Memoria 0-16 Same as l 20:57: Narcan Flumazenil 2015-08 No Notes: Memor ia 0-16 (Same as: l 20:57: Romazicon) Labetalol 2015-08 No 10 mg, 2 Micah taylor 0-16 mL, Route: l 20:57: IVP, Drug form: INJ, Q5Min, Dosing Weight 76.36, kg, PRN Elevated BP, Start date: 05/25/16 15:57:00 CDT, Duration: 5 doses or times, Stop date: 05/26/16 0:00:00 CDT Metoprolol 2015-08 No Notes: Memor ia 0-16 (Same as: l 20:57: Lopressor) Push over 2 minutes Sodium 2015-08 No 1,000 mL, Memori a Chloride 0-16 Rate: 125 l 0.154 20:57: ml/hr, Jevon MEQ/ML 00 Infuse Injectable over: 8 Solution hr, Route: IV, Dosing Weight 76.36 kg, Total Volume: 1,000, Start date: 05/25/16 15:57:00 CDT, Duration: 30 day, Stop date: 06/24/16 15:56:00 STATUS CONTROLLER Ancef 2015-08 No 2 gm, Memoria 0-16 Route: l 19:15: IVPB, Jevon 00 ONCE, Dosing Weight 76.36, kg, Start date: 05/25/16 14:15:00 CDT, Duration: 1 doses or times, Stop date: 05/25/16 14:15:00 CDT Streptococc 2015-08 No Notes: Micah taylor us 0-16 Lightly l pneumoniae 14:00: roll vial He rmann serotype 1 00 (DO NOT capsular SHAKE) antigen before diphtheria administra [id number] tion. protein (Same as: conjugate Prevnar vaccine / 13) Streptococc us pneumoniae serotype 14 capsular antigen diphtheria [id number] protein conjugate vaccine / Streptococc us pneumoniae serotype 18C capsular antigen d Vitamin K1 2015-08 No Notes: Memor ia + sodium 0-16 (Same as: l chloride 14:00: Aqua-Mephy Her mackenzie 0.9% INJ 50 00 ton, mL Vitamin K) MEDICATION WASTE Product Size: 10 mg Product Wasted: ___ mg Saline 2015-08 No Notes: Memoria Flush 0.9% 0-16 (Same as: l 14:00: BD Jevon 00 Posiflush) Levetiracet 2015-08 No Notes: Micah taylor am 0-16 (Same l 14:00: as:Keppra) [place] 00 Docusate 2015-08 No Notes: Memoria 0-16 (Same as: l 14:00: Colace) Jevon 00 (Do Not Crush) sennosides, 2015-08 No Notes: Micah taylor [facility] 0-16 (Same as: l 14:00: Senokot) Jevon 00 Flomax 2015-08 No Notes: Memoria 0-16 (Same As: l 11:11: Flomax) Jevon 00 "Do Not Crush" Dexamethaso 2015-08 No Notes: Micah taylor ne 0-16 Concentrat l 10:39: ion: [place] 00 4mg/ml Mannitol 2015-08 No Notes: Memoria 0-16 (Same as: l 10:16: Osmitrol) Jevon 00 Infuse through 5 micron or smaller filter WASTE: F/P - Sink; E - Municipal Trash Bin Vitamin K1 2015-08 No Notes: Memor ia + sodium 0-16 (Same as: l chloride 05:23: Aqua-Mephy Her mackenzie 0.9% INJ 50 00 ton, mL Vitamin K) MEDICATION WASTE Product Size: 10 mg Product Wasted: ___ mg Magnesium 2015-08 No Notes: Memori a Oxide 0-16 (Same as: l 04:11: Mag-Ox [place] 00 400) Magnesium oxide 524vo=806l g elemental magnesium Dose=____m g magnesium oxide (___mg elemental magnesium) Magnesium 2015-08 No Notes: Memori a Sulfate 0-16 WASTE: F/P l 04:11: - Sink; E [place] 00 - Municipal Trash Bin Calcium 2015-08 No Notes: Memoria Carbonate 0-16 (Same As: l 500 MG 04:11: Tums) [place] Chewable 00 Calcium Tablet Carbonate 500 mg = 200 mg elemental calcium Dose = mg calcium carbonate ( mg elemental calcium) Calcium 2015-08 No Notes: [facility]oria Gluconate 0-16 WASTE: F/P l 04:11: - Sink; E [place] 00 - Municipal Trash Bin potassium 2015-08 No Notes: Memori a phosphate-s 0-16 (Same as: l odium 04:11: Phos-NaK) Jevon phosphate 00 Each 1.5 250 mg-280 gm pkt has mg-160 mg 250mg oral powder phosphorou for s. Mix reconstitut w/2.5oz ion water and stir. potassium 2015-08 No Notes: Memori a phosphate + 0-16 (Same as: l sodium 04:11: K Jev[place] chloride 00 Phosphate. 0.9% INJ ) 1 mMol 250 mL phoshate has 1.47 mEq potassium Infuse over 4 hours sodium 2015-08 No 45 mmol, Memoria phosphate + 0-16 15 mL, l sodium 04:11: Route: [place] chloride 00 IVPB, PRN, 0.9% INJ Dosing 250 mL Weight 76.364, kg, PRN Abnormal Lab Result, Start date: 05/24/16 23:11:00 CDT, Duration: 30 day, Stop date: 06/23/16 22:10:00 STATUS CONTROLLER, FOR ICU USE ONLY potassium 2015-08 No Notes: Memori a chloride 0-16 (Same as: l 04:11: KCL) [place] 00 Infuse over 2 hours. iodixanol 2015-08 No 60 mL, Memori a 0-16 Route: l 03:50: IVP, Drug Jevon 00 Form: SOLN, Dosing Weight 76.364, kg, ONCALL, STAT, Start date: 05/24/16 22:50:00 CDT, Duration: 1 doses or times, Dose = 2.2ml/kg, Max dose = 100ml -- "To be infused by Radiology Staff ONLY" Regular 2015-08 No 60 Memoria Insulin, 0-16 units) l Human 100 03:17: WASTE: F/P He rmann UNT/ML 00 - Black; E Injectable - Solution Municipal Trash Bin Stable for 28 days at room temperatur e Expires in days from ____Date Dextrose 2015-08 No 6.25 gm, Memor ia 50% Syringe 0-16 12.5 mL, l 03:17: Route: [place] 00 IVP, Drug Form: INJ, Dosing Weight 76.364, kg, PRN, PRN Abnormal Lab Result, Start date: 05/24/16 22:17:00 CDT, Duration: 30 day, Stop date: 06/23/16 21:16:00 STATUS CONTROLLER Saline 2015-08 No Notes: Memoria Flush 0.9% 0-16 (Same as: l 03:17: BD [place] 00 Posiflush) Bisacodyl 2015-08 No Notes: Memori a 0-16 (Same As: l 03:17: Dulcolax, Jevon 00 Bisco-Lax) Ondansetron 2015-08 No Notes: Micah taylor 0-16 (Same as: l 03:17: Zofran) [place] 00 MEDICATION WASTE Product Size: 4 mg Product Wasted: _0__ mg Acetaminoph 2015-08 No Notes: Do M emoria en 325 MG / 0-16 not exceed l Hydrocodone 03:17: 4gm/day of Jevon Bitartrate 00 acetaminop 10 MG Oral hen. Tablet (Same as: [place] 325/10) Levetiracet 2015-08 No Notes: Micah taylor am 0-16 Same as l 03:17: Keppra [place] 00 Mix with 100 mL NS, LR or D5W MEDICATION WASTE Product Size: 500 mg Product Wasted: __0_ mg Sodium 2015-08 No 1,000 mL, Memori a Chloride 0-16 Rate: 75 l 0.154 03:17: ml/hr, [place] MEQ/ML 00 Infuse Injectable over: 13.3 Solution hr, Route: IV, Dosing Weight 76.364 kg, Total Volume: 1,000, Start date: 05/24/16 22:17:00 CDT, Duration: 30 day, Stop date: 06/23/16 22:16:00 STATUS CONTROLLER Acetaminoph 2015-08 No Notes: Micah taylor en 325 MG / 0-16 (Same as: l Hydrocodone 03:17: [place] Saskia nn Bitartrate 00 325/5) Do 5 MG Oral not exceed Tablet 4gm/day of acetaminop hen. Saline 2015-08 No Notes: Memoria Flush 0.9% 0-16 (Same as: l 01:56: BD Jevon 00 Posiflush) Clonidine Clonidine Yes Home [address] [facility] HCl HCl [place] at [facility] Lisinopril Lisinopril Yes Home [address] [facility] [place] [facility] Warfarin Warfarin Yes Home 1 tablet ( [facility] Sodium Sodium [place] 4 mg + 3 [facility] Primidone Primidone Yes Home [address] [facility] [place] [facility] Ferrous Ferrous Yes Home TAKE ONE [facility] Sulfate Sulfate [place] (1) [facility] - TABLET(S) [facility] BY MOUTH l TWICE A Outpat[facility] DAY WITH ent MEALS. Clinics Amitriptyli Amitriptyli Yes Home [address] [facility] ne HCl ne HCl [place] [facility] Topamax Topamax Yes Home [address] [facility] [place] [facility] Warfarin Warfarin Yes Home [address] Sodium Sodium [place] [facility] Vitamin D3 Vitamin D3 Yes Home [address] [facility] [place] [facility] Zanaflex Zanaflex Yes Home [address] [facility] [place] as needed [facility] Lipitor Lipitor Yes Home [address] [facility] [place] [facility] Breo Breo Yes Home [address] [facility] Ellipta Ellipta [place] [facility] Aspir-81 Aspir-81 Yes Home [address] [facility] [place] [facility] ProAir HFA ProAir HFA Yes Home [address] [facility] [place] needed [facility] Prilosec Prilosec Yes Home [address] [facility] [place] [facility] Amlodipine Amlodipine Yes Home [address] [facility] Besylate Besylate [place] [facility] Amlodipine Amlodipine Yes Home TAKE ONE [facility] Besylate Besylate [place] (1) [facility] TABLET(S) [facility] BY MOUTH l TWICE A [facility] DAY. ent Clinics Atorvastati Atorvastati Yes Home TAKE ONE [facility] n Calcium n Calcium [place] (1) [facility] - TABLET(S) [facility] BY MOUTH l NIGHTLY. [facility] ent Clinics Immunizations Ordered Immunization Filled Immunization Date Status Commen ts Source Name Name FLUZONE HIGH-DOSE PF 2019-06-17 Completed [place] 00[place] Vital Signs Vital Name Observation Time Observation Value Comments Source Systolic blood 2019-06-17 12:00:56 121 mm[Hg] [place] [facility] pressure Diastolic blood 2019-06-17 12:00:56 59 mm[Hg] [place] [facility] pressure Heart rate 2019-06-17 12:00:56 65 /min [place] [facility] Body temperature 2019-06-17 12:00:56 36.83 [place] [facility] Respiratory rate 2019-06-17 12:00:56 14 /min [place] [facility] Oxygen saturation in 2019-06-17 12:00:56 95 /min [place] [facility] Arterial blood by Pulse oximetry Body weight 2019-06-17 05:00:[address] [place] [facility] BMI 2019-06-17 05:00:00 25.89 kg/m2 [place] [facility] Body height 2019-05-27 16:12:[address] [place] [facility] Heart Rate 2018-08-13 22:09:00 [facility] Respitory Rate 2018-08-13 22:09:00 [facility] [place] Systolic (mm Hg) 2018-08-13 22:09:00 Micah rial [place] Diastolic (mm Hg) 2018-08-13 22:09:00 [facility] [place] BMI Calculated 2018-08-13 22:09:00 [facility] [place] Height 2018-08-13 22:09:00 160.02 cm [facility] Weight 2018-08-13 22:09:00 [facility] [place] Systolic (mm Hg) 2016-05-30 16:34:00 Miach rial [place] Diastolic (mm Hg) 2016-05-30 16:34:00 [facility] [place] Temperature Oral (F) 2016-05-30 16:34:00 97.7 F [facility] [place] Heart Rate 2016-05-30 16:34:00 [facility] [place] Respitory Rate 2016-05-30 16:34:00 [facility] al [place] Respitory Rate 2016-05-30 13:20:00 [facility] [place] Heart Rate 2016-05-30 13:20:00 [facility] [place] Systolic (mm Hg) 2016-05-30 13:20:00 Micah rial [place] Diastolic (mm Hg) 2016-05-30 13:20:00 Mem [facility] [place] Temperature Oral (F) 2016-05-30 13:20:00 97.8 F [facility] [place] Systolic (mm Hg) 2016-05-30 08:32:00 Micah rial [place] Diastolic (mm Hg) 2016-05-30 08:32:00 [facility]rial [place] Temperature Oral (F) 2016-05-30 08:32:00 98.1 F [facility] [place] Respitory Rate 2016-05-30 08:32:00 [facility] [place] Heart Rate 2016-05-30 08:32:00 [facility] [place] BMI Calculated 2016-05-25 07:10:00 [facility] [place] Weight 2016-05-25 07:10:00 [facility] [place] Height 2016-05-25 07:10:00 172.72 cm [facility] Weight 2016-05-25 01:40:00 [facility] [place] BMI Calculated 2016-05-25 01:40:00 [facility] [place] Height 2016-05-25 01:40:00 170.18 cm [facility] Procedures Procedure Date / Time Performing Clinician Source Performed PROTHROMBIN TIME WITH INR 2019-06-17 05:00:00 Denzel Cote [facility] COMPLETE BLD COUNT 2019-06-17 05:00:00 Denzel Cote [facility] W/AUTO DIFF BASIC METABOLIC PANEL 2019-06-17 05:00:00 Denzel Cote [facility] ESTIMATED GFR 2019-06-17 05:00:00 Denzel Cote [facility] PROTHROMBIN TIME WITH INR 2019-06-16 06:40:00 Denzel Cote [facility] COMPLETE BLD COUNT 2019-06-16 06:40:00 Denzel Cote [facility] W/AUTO DIFF BASIC METABOLIC PANEL 2019-06-16 04:00:00 Denzel Cote [facility] ESTIMATED GFR 2019-06-16 04:00:00 Denzel Cote [facility] HEMOGLOBIN & HEMATOCRIT 2019-06-15 10:30:00 Blanka Garcia [facility] ANTI XA, UNFRACTIONATED 2019-06-15 07:00:00 Denzel Cote [facility] PROTHROMBIN TIME WITH INR 2019-06-15 07:00:00 Denzel Cote [facility] COMPLETE BLD COUNT 2019-06-15 07:00:00 Denzel Cote [facility] W/AUTO DIFF BASIC METABOLIC PANEL 2019-06-15 04:00:00 Denzel Cote [facility] ESTIMATED GFR 2019-06-15 04:00:00 Denzel Cote [facility] TYPE AND SCREEN 2019-06-14 13:27:00 Denzel Cote [facility] ANTIBODY IDENTIFICATION 2019-06-14 13:27:00 Denzel Cote [facility] PREPARE RBC 2019-06-14 13:27:00 Denzel Cote [facility] HC COMPLETE BLD COUNT 2019-06-14 08:45:00 Hodan Borjas [facility] W/AUTO DIFF PROTHROMBIN TIME WITH INR 2019-06-14 05:30:00 Denzel Cote [facility] HC COMPLETE BLD COUNT 2019-06-14 05:30:00 Denzel Cote [facility] W/AUTO DIFF ANTI XA, UNFRACTIONATED 2019-06-14 05:30:00 Denzel Cote [facility] BASIC METABOLIC PANEL 2019-06-14 04:00:00 Denzel Cote [facility] MAGNESIUM LEVEL 2019-06-14 04:00:00 Denzel Cote [facility] ESTIMATED GFR 2019-06-14 04:00:00 Denzel Cote [facility] ANTI XA, UNFRACTIONATED 2019-06-13 11:30:00 Denzel Cote [facility] ANTI XA, UNFRACTIONATED 2019-06-13 05:30:00 Denzel Cote [facility] HC COMPLETE BLD COUNT 2019-06-13 05:30:00 Rusty Moodyist W/AUTO DIFF PROTHROMBIN TIME WITH INR 2019-06-13 05:30:00 Denzel Cote [facility] ANTI XA, UNFRACTIONATED 2019-06-12 22:30:00 Denzel Cote [facility] ANTI XA, UNFRACTIONATED 2019-06-12 14:29:00 Denzel Cote BASIC METABOLIC PANEL 2019-06-12 05:30:00 Denzel Cote [facility] PARTIAL THROMBOPLASTIN 2019-06-12 05:30:00 Denzel Cote [facility] TIME (PTT) PROTHROMBIN TIME WITH INR 2019-06-12 05:30:00 Denzel Cote [facility] MAGNESIUM LEVEL 2019-06-12 05:30:00 Denzel Cote Met [facility]odist PHOSPHORUS LEVEL 2019-06-12 05:30:00 Denzel Cote Me thodist ANTI XA, UNFRACTIONATED 2019-06-12 05:30:00 Denzel Cote [facility] HC COMPLETE BLD COUNT 2019-06-12 05:30:00 Denzel Cote [facility] W/AUTO DIFF ESTIMATED GFR 2019-06-12 05:30:00 Denzel Cote Met [facility] ANTI XA, UNFRACTIONATED 2019-06-11 23:00:00 Denzel Cote [facility] PARTIAL THROMBOPLASTIN 2019-06-11 23:00:00 Denzel Cote [facility] TIME (PTT) PROTHROMBIN TIME WITH INR 2019-06-11 23:00:00 Denzel Cote [facility] ANTI XA, UNFRACTIONATED 2019-06-11 17:22:00 Denzel Cote [facility] HEMOGLOBIN & HEMATOCRIT 2019-06-11 09:40:00 Rusty Moody [facility] ANTI XA, UNFRACTIONATED 2019-06-11 09:40:00 Rusty Moody BASIC METABOLIC PANEL 2019-06-11 07:00:00 Denzel Cote [facility] PROTHROMBIN TIME WITH INR 2019-06-11 07:00:00 Denzel Cote [facility] PARTIAL THROMBOPLASTIN 2019-06-11 07:00:00 Denzel Cote [facility] TIME (PTT) ANTI XA, UNFRACTIONATED 2019-06-11 07:00:00 Denzel Cote [facility] HC COMPLETE BLD COUNT 2019-06-11 07:00:00 Denzel Cote [facility] W/AUTO DIFF ESTIMATED GFR 2019-06-11 07:00:00 Denzel Cote Met hodist PARTIAL THROMBOPLASTIN 2019-06-10 22:00:00 Denzel Cote [facility] TIME (PTT) ANTI XA, UNFRACTIONATED 2019-06-10 22:00:00 Denzel Cote [facility] ANTI XA, UNFRACTIONATED 2019-06-10 14:01:00 Denzel Cote [facility] OCCULT BLOOD, STOOL 2019-06-10 13:50:00 Denzel Cote [facility] HEMOGLOBIN & HEMATOCRIT 2019-06-10 11:07:00 Denzel Cote [facility] IONIZED CALCIUM 2019-06-10 11:07:00 Denzel Cote [facility] ANTI XA, UNFRACTIONATED 2019-06-10 04:30:00 Denzel Cote [facility] PROTHROMBIN TIME WITH INR 2019-06-10 04:30:00 Denzel Cote [facility] HC COMPLETE BLD COUNT 2019-06-10 04:30:00 Denzel Cote [facility] W/AUTO DIFF BASIC METABOLIC PANEL 2019-06-10 04:00:00 Denzel Cote [facility] ESTIMATED GFR 2019-06-10 04:00:00 Denzel Cote [facility] ANTI XA, UNFRACTIONATED 2019-06-09 09:52:00 Denzel Cote [facility] HC COMPLETE BLD COUNT 2019-06-09 03:00:00 Denzel Cote [facility] W/AUTO DIFF BASIC METABOLIC PANEL 2019-06-09 03:00:00 Denzel Cote [facility] MAGNESIUM LEVEL 2019-06-09 03:00:00 Denzel Cote Met sandy VANCOMYCIN LEVEL, RANDOM 2019-06-09 03:00:00 Denzel Cote [facility] ANTI XA, UNFRACTIONATED 2019-06-09 03:00:00 Denzel Cote [facility] ESTIMATED GFR 2019-06-09 03:00:00 Denzel Cote Met sandy XR CHEST 1 VW PORTABLE 2019-06-08 11:18:57 Meli Eddy ANAEROBIC CULTURE 2019-06-08 11:02:00 Rusty Moody FUNGUS CULTURE 2019-06-08 11:02:00 Rusty Moody ethodist AFB CULTURE 2019-06-08 11:02:00 Rusty Moody ethodist CONSULT TO OSTOMY CARE 2019-06-08 11:01:18 Denzel Cote NURSE FUNGUS CULTURE 2019-06-08 10:58:00 Rusty Moody [facility]ist AEROBIC CULTURE 2019-06-08 10:58:00 Rusty Moody ethodist AFB CULTURE 2019-06-08 10:58:00 Rusty Moody ethjessicast GLUCOSE LEVEL, SYRINGE 2019-06-08 10:12:00 Rusty Moody IONIZED CALCIUM, ARTERIAL 2019-06-08 10:12:00 Rusty Moody HEMOGLOBIN, SYRINGE 2019-06-08 10:12:00 Rusty Moody [facility] POTASSIUM, SYRINGE 2019-06-08 10:12:00 Rusty Moody n [facility] ARTERIAL BLOOD GAS, 2019-06-08 10:12:00 Rusty Moodyist CORRECTED SODIUM LEVEL, SYRINGE 2019-06-08 10:12:00 Rusty Moody AF[employer] STAIN 2019-06-08 10:02:00 Rusty Moody [facility] AEROBIC CULTURE 2019-06-08 10:02:00 Rusty Moody [facility]ist GRAM STAIN 2019-06-08 10:02:00 Heidy Rusty Pandya Hodan [facility] ANAEROBIC CULTURE 2019-06-08 09:58:00 Rusty Moody [facility] CENTRAL LINE 2019-06-08 09:10:38 Benita Montalvo [place] ARTERIAL LINE 2019-06-08 09:09:21 Benita Montalvo [place] ANESTHESIA INTUBATION 2019-06-08 09:08:19 Benita Montalvo [facility] [place] GLUCOSE LEVEL, SYRINGE 2019-06-08 09:01:00 Rusty Moodyist IONIZED CALCIUM, ARTERIAL 2019-06-08 09:01:00 Rusty Moody HEMOGLOBIN, SYRINGE 2019-06-08 09:01:00 Rusty Moody on [facility] POTASSIUM, SYRINGE 2019-06-08 09:01:00 Rusty Moody n [facility] ARTERIAL BLOOD GAS, 2019-06-08 09:01:00 Rusty Moody on [facility] CORRECTED SODIUM LEVEL, SYRINGE 2019-06-08 09:01:00 Rusty Moody [facility] ACTIVATED CLOTTING TIME 2019-06-08 08:01:00 Denzel Cote [facility] POTASSIUM, SYRINGE 2019-06-08 07:22:00 [facility] GLUCOSE LEVEL, SYRINGE 2019-06-08 07:22:00 [facility] SODIUM LEVEL, SYRINGE 2019-06-08 07:22:00 [facility] HEMOGLOBIN, SYRINGE 2019-06-08 07:22:00 [facility] TYPE AND SCREEN 2019-06-08 06:36:00 [facility] PROTHROMBIN TIME WITH INR 2019-06-08 06:36:00 Rusty Moody PARTIAL THROMBOPLASTIN 2019-06-08 06:36:00 [facility] TIME (PTT) ANTIBODY IDENTIFICATION 2019-06-08 06:36:00 Rusty Moody E ANTIGEN PATIENT TYPING 2019-06-08 06:36:00 Rusty Moody XR CHEST 2 VW 2019-05-27 16:50:51 [facility] ECG PRE/POST OP 2019-05-27 16:29:58 Liz Oliver HC COMPLETE BLD COUNT 2019-05-27 16:21:00 Liz Oliver W/AUTO DIFF BASIC METABOLIC PANEL 2019-05-27 16:21:00 Liz Oliver PARTIAL THROMBOPLASTIN 2019-05-27 16:21:00 Liz Oliver TIME (PTT) PROTHROMBIN TIME WITH INR 2019-05-27 16:21:00 Liz Oliver ESTIMATED GFR 2019-05-27 16:21:00 Liz Oliver CARDIAC PET 2019-05-02 15:05:32 [facility] ENDOCARDITIS\\INFECTION DEVICE ASSESSMENT Abdominal aortic aneurysm [facility] stenting<sup>1</sup> Bypass / graft of vein [facility] Hernia repair [facility] Plan of Care Planned Activity Planned Date Details Comments Source Future Scheduled 2020-04-10 INFLUENZA VACCINE (#1) [facility] Test 00:00:00 [code = INFLUENZA Medical Ce nter VACCINE (#1)] Future Scheduled 2020-04-10 INFLU[facility]ZA VACCINE [place] 00:00:00 [code = INFLUENZA VACCINE] Future Scheduled 2017-05-26 [address]UM[address]OCCAL [address] [facility] - Test 00:00:00 LOW/MEDIUM RISK ([facility] 2 - PPSV23) [code = PNEUMOCOCCAL 65+ LOW/MEDIUM RISK (2 of 2 - PPSV23)] Future Scheduled 2008-02-22 65+ PNEUMOCOCCAL [facility] Test 00:00:00 VACCINE (2 of 2 - PPSV23) [code = 65+ PNEUMOCOCCAL VACCINE (2 of 2 - PPSV23)] Future Scheduled 2005-05-[address] [facility] - Test 00:00:00 WELLNESS (YEAR [facility] or [facility] FIRST YEAR if no IPPE) [code = MEDICARE ANNUAL WELLNESS (YEAR 2 or FIRST YEAR if no IPPE)] Future Scheduled 1993 SHINGLES VACCINES (#1) [facility] Test 00:00:00 [code = SHINGLES VACCINES (#1)] Encounters Start End Encounter Admission Attending Care Care Encounter Source Date/Time Date/Time Type Type Clinicians Facility Department ID 2020-03-05 2020-03-05 [facility] [id number] [facility] 13:30:00 13:30:00 [facility] Medicine Outpati ent Clinics 2020-01-26 2020-01-26 [facility] [id number] 11:08:00 11:08:00 [facility] Medicine Outpati ent Clinics 2019-12-27 2019-12-27 [facility] [id number] 14:45:00 14:45:00 t [facility] Outpati ent Clinics 2019-12-15 2019-12-15 Outpatient JANAE ElliottSCHSHEILA MISCHER [id number] 10:45:00 23:59:59 James 06 [facility] 2019-11-15 2019-11-15 Outpatient JANAE ElliottSCHSHEILA MISCHER [id number] 09:15:00 09:15:00 James 05 [facility] 2019-09-16 2019-09-16 [facility] [id number] 14:58:00 14:58:00 t [facility] Outpati ent Clinics 2019-09-14 2019-09-14 [facility] [id number] 14:45:00 14:45:00 t [facility] Medicine Outpati ent Clinics 2019-08-31 2019-08-31 Outpatient JANAE ElliottSCHSHEILA MISCHER [id number] 13:45:00 13:45:00 James 04 [place] 2019-08-19 2019-08-19 [facility] [id number] 14:49:00 14:49:00 t [facility]ets [facility] Outpati ent [facility] 2019-07-20 2019-07-20 [facility] [id number] 15:09:00 15:09:[address] [place] - Drive [facility] Medicine Outpati ent Clinics 2019-06-30 2019-06-30 [facility] [id number] [address] 08:49:00 08:49:[address] [place] [address] - Drive [facility] Medicine Outpati ent Clinics 2019-06-27 2019-06-27 [facility] [id number] 15:00:00 15:00:00 [place] - Drive [facility] Medicine Outpati ent Clinics 2019-06-08 2019-06-17 Inpatient [facility] [id number] [place] [address] 00:00:00 00:00:00 DENZEL Ibrahim[address] [facility] 2019-05-13 2019-05-13 [facility] [id number] 15:00:00 15:00:00 James Salvador 2019-03-15 2019-03-15 [facility] [id number] 16:15:00 16:15:00 [place] - Drive [facility] Medicine Outpati ent Clinics 2019-02-22 2019-02-22 [facility] [id number] [address] 10:56:00 10:56:00 [place] Luke [place] - Drive [facility] Medicine Outpati ent Clinics 2019-01-21 2019-01-21 [facility] [id number] 16:26:00 16:26:00 [place] Luke [place] - Drive [facility] Medicine Outpati ent Clinics 2018-12-07 2018-12-07 [facility] [id number] 14:15:00 14:15:00 t Specialty/U Karine kes - Specialty rology [facility]pat[facility] ent Clinics 2018-12-01 2018-12-01 [facility] [id number] [facility] 14:15:00 14:15:[address] [place] - Drive [facility] Medicine Outpati ent Clinics 2018-11-10 2018-11-10 [facility] [id number] [facility] 15:15:00 15:15:00 [place] Luke [place] - Drive [facility] Medicine l Medicine Outpati ent Clinics 2018-08-17 2018-08-18 Outpatient MHMISCHER MHMISCHER [id number] 15:18:00 23:59:59 02 2018-08-13 2018-08-13 [facility] [id number] 15:45:00 23:59:59 James Salvador 2018-08-12 2018-08-12 [facility] [id number] 16:00:00 16:00:00 [place] LuVoolgo s - Drive [facility] Medicine Outpati ent Clinics 2018-05-19 2018-05-19 [facility] [id number] 08:50:00 08:50:[address] [place] [address] [facility] LuVoolgo s - Drive [facility] Medicine Outpati ent Clinics 2018-05-11 2018-05-11 [facility] [id number] [address] 09:14:00 09:14:00 [place] LuVoolgo s - Drive [facility] Medicine l Medicine Outpati ent Clinics 2018-04-07 2018-04-07 [facility] [id number] 15:15:00 15:15:00 [place] LuVoolgo s - Drive [facility] Medicine l Medicine Outpati ent Clinics 2018-04-05 2018-04-05 [facility] [id number] [facility] 10:00:00 10:00:00 [place] LuVoolgo s - Drive [facility] Medicine Medicine Outpati ent Clinics 2018-03-31 2018-03-31 [facility] [id number] [facility] 09:00:00 09:00:00 [place] LuVoolgo s - Drive [facility] Medicine l Medicine Outpati ent Clinics 2018-03-23 2018-03-23 [facility] [id number] 09:00:00 09:00:00 [place] LuVoolgo s - Drive [facility] Medicine Outpati ent Clinics 2018-03-04 2018-03-04 [facility] [id number] 16:21:00 16:21:[address] Luke [place] - Drive [facility] l Medicine Outpati ent Clinics 2018-02-24 2018-02-24 [facility] [id number] 16:02:00 16:02:[address] [place] [address] - Drive [facility] Medicine l Medicine Outpati ent Clinics 2018-02-24 2018-02-24 [facility] [id number] 14:30:00 14:30:[address] [place] - Drive [facility] Medicine l Medicine Outpati ent Clinics 2018-02-15 2018-02-15 [facility] [id number] 16:32:00 16:32:[address] [place] - Drive [facility] Medicine l Medicine Outpati ent Clinics 2018-01-01 2018-01-01 [facility] [id number] 10:03:00 10:03:[address] [place] - Drive [facility] Medicine l Medicine Outpati ent Clinics 2017-12-30 2017-12-30 [facility] [id number] 16:56:00 16:56:[address] [place] - [address] [facility] Medicine l Medicine Outpati ent Clinics 2017-12-30 2017-12-30 [facility] [id number] 14:30:00 14:30:[address] [place] [address] - [address] [facility] Medicine l Medicine Outpati ent Clinics 2017-12-24 2017-12-24 [facility] [id number] 09:12:00 09:12:[address] [place] - [address] [facility] Medicine l Medicine Outpati ent Clinics 2017-12-22 2017-12-22 [facility] [id number] [facility] 08:18:00 08:18:[address] [place] [address] - Drive [facility] Medicine l Medicine Outpati ent Clinics 2017-12-10 2017-12-10 [facility] [id number] 13:37:00 13:37:[address] [place] - Drive [facility] Medicine l Medicine Outpati ent Clinics 2017-12-03 2017-12-03 [facility] [id number] 15:29:00 15:29:00 [place] - Drive [facility] Medicine Outpati ent Clinics 2017-12-01 2017-12-01 [facility] [id number] 10:54:00 10:54:00 [place] - Drive [facility] Medicine Outpati ent Clinics 2017-11-13 2017-11-13 [facility] [id number] [facility] 12:22:00 12:22:00 [place] Luke [place] - Drive [facility] Medicine Outpati ent Clinics 2017-11-13 2017-11-13 [facility] [id number] 09:51:00 09:51:00 [place] Luke [place] - Drive [facility] Medicine Outpati ent Clinics 2017-11-10 2017-11-10 [facility] [id number] [facility] 15:34:00 15:34:00 t [place] Lenet s - Shozu [facility] Medicine Outpati ent Clinics 2017-11-04 2017-11-04 [facility] [id number] [facility] 15:30:00 15:30:00 t [place] Lenet s - Shozu [facility] Medicine Outpati ent Clinics 2016-05-24 2016-05-30 Outpatient Crescencio [facility] [id number] 20:36:00 11:59:00 Abraham Reid 67 Results Test Description Test Time Test Comments Results Result Comments Source AFB culture 2019-07-21 00:13:59 Test Item Value Reference Range Interpretation Comme nts AFB culture isolate No growth after 6 weeks of Specimen InformationSpecimen (test code = 543-9) incubation. Source: TissueSpecimen Site: Tissue Femur [place] MethodistFungus [id number] 00:15:14 Test Item Value Reference Range Interpretation Comments Fungus culture No growth Specimen isolate (test after 4 weeks InformationSp ecimen code = 1441) of Source: TissueS pecimen incubation. Site: Tissue Fe mur [place] MethodistBasic metabolic [id number] 06:53:19 Test Item Value Reference Range Interpretation Comments Sodium (test code = 2951-2) 139 135- 148 mEq/L Potassium (test code = 2823-3) 4.4 3.5- 5.0 mEq/L Chloride (test code = 2075-0) 101 98- 112 mEq/L CO2 (test code = 2027-) 28 24- 31 mEq/L Anion gap (test code = 36394-2) 10@ANIO 7- 15 mEq/L BUN (test code = 3094-0) 11 mg/dL 8-23 Creatinine (test code = 2160-0) 1.29 mg/dL 0.7-1.2 H Glucose (test code = 2345-7) 99 mg/dL 65-99 Calcium (test code = 61271-2) 8.3 mg/dL 8.8-10.2 L Lab Interpretation (test code = Abnormal 57421-5) Mumtaz MethodistEstimated [id number] 06:53:19 Test Item Value Reference Range Interpretation Comments Estimated GFR (test 53 mL/min/1.73 m2 A Caterg ory Units code = 5488) InterpretationG 1 >=90 Ly l or highG2 60-89 Mildly decrease dG3a 45-59 Mil dly to moderately decr tapptM7z 30-44 Moderately to s everely decreasedG4 15-29 Severe ly decreasedG5 <15 Kidney shaquille lureThe eGFR was calcul ated using the Chron ic Kidney Disease Epidemiology Collaboration ( CKD-EPI) equation. Interpretation is based on recommendati ons of the National [facility] [place]-Kid[facility] ey Disease Outcome s Quality Initiat emanuel (NKF-KDOQI) pub lished in 2013. Lab Interpretation Abnormal (test code = 18479-2) Mumtaz CelisistProthrombin time with [id number] 06:50:59 Test Item Value Reference Range Interpretation Comments Prothrombin time (test 25.6 11.5- 14.5 sec H code = 5902-2) INR (test code = 2.4 The Interna tional 42726-0) Normalized Rati o (INR) is a therapeuti c monitoring tool for patients who ar e stable on oral anticoagulant t herapy. An INR of 2.0-3 .0 is suggested for d eep vein thrombosis/pulm onary embolism. Lab Interpretation Abnormal (test code = 74250-2) Mumtaz MethodistCBC with platelet and afcqsbudpqlk5726-67-19 06:26:30 Test Item Value Reference Range Interpretation Comments WBC (test code = 54382-8) 6.79 4.50- 11.00 k/uL RBC (test code = 67022-3) 2.67 m/uL 4.4-6 L HGB (test code = 718-7) 7.9 g/dL 14-18 L HCT (test code = 4544-3) 25.5 % 41-51 L MCV (test code = 787-2) 95.5 fL 82-100 MCH (test code = 785-6) 29.6 pg 27-34 MCHC (test code = 786-4) 31.0 g/dL 31-37 RDW - SD (test code = 55.5 fL 37-55 H 68166-9) MPV (test code = 84625-6) 10.5 fL 8.8-13.2 Platelet count (test code 234 150- 400 k/uL = 79158-1) Nucleated RBC (test code 0.00 /100 WBC = 45955-9) Neutrophils (test code = 64.5 % 39-69 80553-2) Lymphocytes (test code = 17.7 % 25-45 L 58164-7) Monocytes (test code = 11.3 % 0-10 H 60283-2) Eosinophils (test code = 4.6 % 0-5 91708-1) Basophils (test code = 0.3 % 0-1 75426-2) Immature granulocytes 1.6 % 0-1 H "Immat ure (test code = 37009-7) granul ocytes" (promyelocytes, myelocytes, metamyelocytes) Lab Interpretation (test Abnormal code = 73855-1) Mumtaz MethodistHemoglobin & [id number] 10:42:25 Test Item Value Reference Range Interpretation Comments HGB (test code = 718-7) 8.3 g/dL 14-18 L HCT (test code = 4544-3) 26.2 % 41-51 L Lab Interpretation (test code = Abnormal 54133-6) Mumtaz MethodistAnti Xa, gianepuxbytymi7825-60-98 07:51:02 Test Item Value Reference Range Interpretation Comments Anti Xa, unfractionated <0.10 0.3-0.7 L Ther apeutic Range: (test code = 3274-8) 0.30 - 0.70 U/mL Lab Interpretation (test Abnormal code = 16282-8) Pandya MethodistPrepare RBC, 2 [id number] 02:20:00 Test Item Value Reference Range Interpretation Comments Product name (test code Apheresis Red Cell AS3 = 25) #2 LR Unit number (test code [id number] = [id number]) Product code (test code [id number] = 3092) Dispense status (test Transfused code = 24) Blood expiration date (test code = 302) Blood type code (test 5100 code = 308) Blood type (test code = O POSITIVE 1314) Compatibility (test Compatible code = 6400) [place] MethodistAntibody [id number] 17:50:00 Test Item Value Reference Range Interpretation Comments Antibody ID (test code = 96564-0) POS, Anti-E [place] MethodistType and [id number] 15:33:00 Test Item Value Reference Range Interpretation Comments ABO grouping (test code = 883-9) O Rh type (test code = 27159-2) POS Antibody screen (gel) (test code = POS 890-4) [place] MethodistMagnesium [id number] 07:18:12 Test Item Value Reference Range Interpretation Comments Magnesium (test code = 63778-5) 1.9 mg/dL 1.6-2.[address] [place] MethodistActivated clotting [id number] 11:15:01 Test Item Value Reference Range Interpretation Comments Activated clotting time 96 96- 152 sec Mete r ID: (test code = 5298) 3495SEOpe rator ID: Rickie Keita [place] MethodistAnaerobic nuyattm5252-54-95 07:37:21 Test Item Value Reference Range Interpretation Comments Anaerobic No anaerobic Specimen culture isolate organisms InformationS pecimen (test code = isolated. Source: TissueS pecimen 552) Site: Tissue Fe mur [place] MethodistPhosphorus [id number] 07:33:25 Test Item Value Reference Range Interpretation Comments Phosphorus (test code = 2777-1) 2.6 mg/dL 2.4-4.[address] MethodistPartial thromboplastin time, wmrgbgkgk2135-91-13 07:32:59 Test Item Value Reference Range Interpretation Comments PTT (test code = >250.0 23.0- 36.0 sec HH PTT thera peutic range 18240-2) for unfractiona jaime heparin is61.0- 112.0 seconds which corresponds to Anti-Xa0.3-0.7 U/ml. Lab Interpretation Abnormal (test code = 39741-8) [place] MethodistAFB [id number] 13:30:33 Test Item Value Reference Range Interpretation Comments AFB stain No acid fast Specimen (test code = bacilli (AFB) InformationSpe cimen 676-7) seen. Source: TissueS pecimen Site: Tissue Fe mur [place] [address] MethodistFungus [id number] 13:30:33 Test Item Value Reference Range Interpretation Comments Fungus smear No fungi Specimen (test code = observed. InformationSpec imen Source: 1443) TissueSpecimen Site: Tissue Femur [place] [address] MethodistGram [id number] 13:30:33Gram stain isolateFew WBC'sNo organisms seen Comment: Specimen InformationSpecimen Source: TissueSpecimen Site: Tissue Femur [facility] MethodistOccult blood, [id number] 04:05:34 Test Item Value Reference Range Interpretation Comments Occult blood, Negative for Specimen stool (test occult blood. InformationSpe cimen code = Source: StoolSp ecimen 2334-1) Site: Preserved [place] MethodistIonized [id number] 11:54:21 Test Item Value Reference Range Interpretation Comments pH (test code = 2753-2) 7.42 Ionized calcium (test code = 1.12 mmol/L 1.11-1.32 ) [facility]com[facility] level, ljitua5083-11-22 04:13:23 Test Item Value Reference Range Interpretation Comments Vancomycin, random (test code = 8.4 ug/mL 05590-1) [facility] Chest 1 Vw [id number] 11:32:50Hm Interface, Radiology Results - 06/08/2019 11:35 AM CDTEXAMINATION: XR CHEST 1 VW PORTABLECLINICAL HISTORY: Confirm new central line placementCOMPARISON: May 27IMPRESSION:1. Right IJ line tip is in the SVC. There is no visible pneumothorax.2. The heart and pulmonary vasculature are within normal limits. There is no confluent fluid or acute osseous pathology.[id number] MethodistE antigen patient [id number] 11:17:00 Test Item Value Reference Range Interpretation Comments E Antigen Patient Typing (test code = NEG 2604) [place] MethodistArterial blood gas, [id number] 10:20:45 Test Item Value Reference Range Interpretation Comments pH, arterial (test code = 2744-1) 7.36 7.35-7.45 pCO2, arterial (test code = 2019-03) 48 35- 45 mmHg H pO2, arterial (test code = 2703-7) 304 80- 90 mmHg H Temperature, Celsius (test code = 37.0 Degrees C 8310-5) O2 saturation, arterial (test code = 100 % 95-100 2708-6) pH, arterial corrected (test code = 7.36 23166-0) pCO2, arterial corrected (test code 48 mmHg = 95188-5) pO2, arterial corrected (test code = 304 mmHg 38175-5) Base excess, arterial (test code = 1 -2 - 2 mEq-L 1925-7) Lab Interpretation (test code = Abnormal 66430-0) [place] MethodistGlucose level, [id number] 10:20:45 Test Item Value Reference Range Interpretation Comments Glucose, syringe (test code = 93 mg/dL 65-99 2345-7) [place] MethodistHemoglobin, [id number] 10:20:45 Test Item Value Reference Range Interpretation Comments Hemoglobin, syringe (test code = 10.4 g/dL 14-18 L 718-7) Lab Interpretation (test code = Abnormal 04980-9) [place] MethodistIonized calcium, [id number] 10:20:45 Test Item Value Reference Range Interpretation Comments Ionized calcium, arterial (test 1.16 mmol/L 1.11-1.32 code = 47700-6) [place] [address] MethodistPotassium, yaefono2564-40-27 10:20:45 Test Item Value Reference Range Interpretation Comments Potassium, syringe (test code = 2007) 4.0 3.5- 5.0 mEq/L Pandya MethodistSodium level, [id number] 10:20:45 Test Item Value Reference Range Interpretation Comments Sodium, syringe (test code = 2947-0) 135 135- 148 mEq/L Pandya MethodistCentral [id number] 09:10:38ConBenita guzman MD 06/08/2019 9:11 AMCentral linePerformed by: Benita Montalvo MDAuthorized by: Benita Montalvo MD Patient Location: ORStaff: Anesthesiologist: Benita Montalvo MD Other Staff: Denzel Cardoza Performed by: Other staffPreprocedure:patient identified, IV checked, site and side verified, risks and benefits discussed, procedure verified, surgical consent complete, patient position confirmed, monitors and equipment ch ecked and pre-op evaluation complete MSBT: antiseptic used during central venous catheter insertion, all elements of maximal sterile barrier technique followed, hand hygiene performed prior to centralvenous catheter insertion, cap/gown used by other personnel during central venous catheter insertion, solutions labeled and all ports not used during insertion clamped Indications: Indications: Vascular accessAnesthesia: Anesthesia: GeneralProcedure details: Patient position: Trendelenburg Catheter Type: Double lumen Catheter Size: 8 Fr Catheter Site: internal jugular vein Catheter site laterality: Right Ultrasound guidance used: Yes Ultrasound image saved: No Number of attempts: 1 Successful placement: Yes Guidewire removal: Guidewire removal is confirmed Guidewire removal witnessed by: Benita Montalvo MDPost-procedure: Post-procedure: line sutured, sterile dressing applied per protocol and ports flushed with saline Post-procedure: Blood cleaned with CHG and sterile caps on all hubs Assessment: Free fluid flow and blood return through all ports Patient tolerance: Patient tolerated the procedure well with no immediate complicationsIslip Terrace MethodistArterial line 2019-06-08 09:09:21Benita Montalvo MD 06/08/2019 9:11 AMArterial linePerformed by: Benita Montalvo MDAuthorized by: Benita Montalvo MD Patient Location: ORStaff: Anesthes iologist: Benita Montalvo MD Other Staff: Denzel Cardoza Performed by: Anesthesiologist and other staffPre-procedure: patient identified, IV checked, site and side verified, risks and benefits discussed, procedure verified, surgical consent complete, patient position confirmed, m onitors and equipment checked and pre-op evaluation complete MSBT: antiseptic used, all elements ofmaximal sterile barrier technique followed, hand hygiene performed, cap/gown used by other personneland solutions labeled Indications: Indications: multiple ABGs and hemodynamic monitoring Anesthesia: Anesthesia: GeneralProcedure Details: Arterial Line placement: Placed post induction Lineplacement site: RadialLine placement side: Right Arterial line gauge: 20 GNumber of attempts: 3 Ultrasound guidance used: Yes Post-procedure: Post- procedure: Sterile dressing applied Post procedure circulation, sensation, movement: Normal and unchanged Patient tolerance: Patient tolerated the procedure well with no immediate complicationsNotes: 2 attempts by SRNA with good flow but unable to thread wire. 1 successful attempt by attending.Mumtaz CelisBfuvtdgsmNyiyee2457-90-35 09:08:19ContreBenita dudley MD 06/08/2019 9:11 AMAirwayPerformed by: Benita Montalvo MDAuthorized by: Benita Montalvo MD Location: ORAnesthesiologist: Benita Montalvo MDOther Anesthesia Staff: Denzel CardozaPerformed by: other anesthesia staffPreoxygenated with 100% O2: Yes C-spine Precautions Maintained Throughout: No Mask Ventilation: Easy maskFinal Airway Type: Endotracheal airwayFinal Endotracheal Airway: ETTCuffed: Yes Technique Used: Direct laryngoscopyDevices/Methods Used in Placement: Intubating styletInsertion Site: OralBlade Type: MillerLaryngoscope Blade/Videolaryngoscope Blade Size: 2ETT Size (mm): 8.0Cuff at minimum occlusion pressure: Yes Measured from: LipsETT to Lips (cm): 23Placement Verified by: CO2 detection and direct visualization Laryngoscopic view: Grade I - full view of glottisRapid Sequence Induction (RSI): No Modified RSI: No Number of Attempts at Approach: 1 Atraumatic; no injury to lips or oropharynx.Mumtaz CelisistROSA ISELAG Pre/Post [id number] 11:05:54 Test Item Value Reference Range Interpretation Comments Ventricular rate (test 67 code = 253) Atrial rate (test code = 67 255) OR interval (test code = 184 266) QRSD interval (test code 100 = 260) QT interval (test code = 410 264) QTC interval (test code 433 = 265) P axis 1 (test code = 73 267) QRS axis 1 (test code = -5 268) T wave axis (test code = 66 270) EKG impression (test Normal sinus code = 273) rhythm-Normal ECG-No previous ECGs available-Electronica lly Signed By William Schmidt MD ([id number]) on 05/29/2019 11:05:53 AM Pandya MethodistXR Chest 2 [id number] 16:53:59Hm Interface, Radiology Results Incoming - 05/27/2019 4:57 PM CDTEXAMINATION: XR CHEST 2 VWCLINICAL HISTORY: Z01.818 Encounter for other preprocedural examination, Pre-op testingCOMPARISON: 11/29/2001.IMPRESSION:1.Lungs are clear. Background emphysematous changes.2.Normal heart size. TAVR. Thoracicaorta is moderately tortuous and atherosclerotic. Possible aneurysmal dilation of the descending thoracic aorta.3.No acute osseous abnormality.[id number] MethodistAFB CULTURE + [id number] 20:50:00 Test Item Value Reference Range Interpretation Comments CULTURE (BEAKER) (test No acid-fast bacilli code = 1095) isolated in 42 days AFB SMEAR (BEAKER) No acid fast bacilli (test code = 994) seen AFB CULTURE + [id number] 20:50:00 Test Item Value Reference Range Interpretation Comments CULTURE (BEAKER) (test No acid-fast bacilli code = 1095) isolated in 42 days AFB SMEAR (BEAKER) No acid fast bacilli (test code = 994) seen FUNGUS CULTURE + [id number] 10:14:00 Test Item Value Reference Range Interpretation Comments CULTURE (BEAKER) (test No fungus isolated in code = 1095) 28 days FUNGUS SMEAR (BEAKER) No fungi seen (test code = 1406) FUNGUS CULTURE + [id number] 10:14:00 Test Item Value Reference Range Interpretation Comments CULTURE (BEAKER) (test No fungus isolated in code = 1095) 28 days FUNGUS SMEAR (BEAKER) No fungi seen (test code = 1406) VANCOMYCIN LEVEL, [id number] 05:33:00 Test Item Value Reference Range Interpretation Comments VANCOMYCIN RANDOM (BEAKER) (test 16.9 ug/mL code = 523) Reference Range: No NormalsBASIC METABOLIC [id number] 05:29:00 Test Item Value Reference Range Interpretation Comments SODIUM (BEAKER) 137 meq/L 136-145 (test code = 381) POTASSIUM (BEAKER) 3.5 meq/L 3.5-5.1 (test code = 379) CHLORIDE (BEAKER) 106 meq/L 98-107 (test code = 382) CO2 (BEAKER) (test 22 meq/L 22-29 code = 355) BLOOD UREA NITROGEN 18 mg/dL 7-21 (BEAKER) (test code = 354) CREATININE (BEAKER) 0.92 mg/dL 0.57-1.25 (test code = 358) GLUCOSE RANDOM 95 mg/dL 70-105 (BEAKER) (test code = 652) CALCIUM (BEAKER) 8.7 mg/dL 8.4-10.2 (test code = 697) EGFR (BEAKER) (test 80 mL/min/1.73 ESTIMA JAIME GFR IS code = 1092) sq m NOT ACCURATE CREATININE CLEARANCE IN PREDICTING GLOMERULAR FILTRATION RATE . ESTIMATED GFR I S NOT APPLICABLE FOR DIALYSIS PATIEN TS. PROTHROMBIN [id number] 05:21:00 Test Item Value Reference Range Interpretation Comments PROTIME (BEAKER) (test code = 25.0 seconds 11.7-14.7 H 759) INR (BEAKER) (test code = 370) 2.3 <=5.9 RECOMMENDED COUMADIN/WARFARIN INR THERAPY RANGESSTANDARD DOSE: 2.0 - 3.0 Includes: PROPHYLAXIS forvenous thrombosis, systemic embolization; TREATMENT for venous thrombosis and/or pulmonary embolus.HIGH RISK: Target INR is 2.5-3.5 for patients with mechanical heart valves.While on warfarin.BASIC METABOLIC PANEL 2018-03-28 16:35:00 Test Item Value Reference Range Interpretation Comments SODIUM (BEAKER) 137 meq/L 136-145 (test code = 381) POTASSIUM (BEAKER) 3.5 meq/L 3.5-5.1 (test code = 379) CHLORIDE (BEAKER) 105 meq/L 98-107 (test code = 382) CO2 (BEAKER) (test 26 meq/L 22-29 code = 355) BLOOD UREA NITROGEN 16 mg/dL 7-21 (BEAKER) (test code = 354) CREATININE (BEAKER) 1.02 mg/dL 0.57-1.25 (test code = 358) GLUCOSE RANDOM 123 mg/dL 70-105 H (BEAKER) (test code = 652) CALCIUM (BEAKER) 9.0 mg/dL 8.4-10.2 (test code = 697) EGFR (BEAKER) (test 71 mL/min/1.73 ESTIMA JAIME GFR IS code = 1092) sq m NOT ACCURATE CREATININE CLEARANCE IN PREDICTING GLOMERULAR FILTRATION RATE . ESTIMATED GFR I S NOT APPLICABLE FOR DIALYSIS PATIEN TS. ANAEROBIC [id number] 08:59:00 Test Item Value Reference Range Interpretation Comments CULTURE (BEAKER) (test No anaerobes isolated code = 1095) ANAEROBIC [id number] 08:58:00 Test Item Value Reference Range Interpretation Comments CULTURE (BEAKER) (test No anaerobes isolated code = 1095) VANCOMYCIN LEVEL, [id number] 05:18:00 Test Item Value Reference Range Interpretation Comments VANCOMYCIN RANDOM (BEAKER) (test 19.8 ug/mL code = 523) Reference Range: No NormalsPROTHROMBIN [id number] 04:55:00 Test Item Value Reference Range Interpretation Comments PROTIME (BEAKER) (test code = 23.5 seconds 11.7-14.7 H 759) INR (BEAKER) (test code = 370) 2.1 <=5.9 RECOMMENDED COUMADIN/WARFARIN INR THERAPY RANGESSTANDARD DOSE: 2.0 - 3.0 Includes: PROPHYLAXIS forvenous thrombosis, systemic embolization; TREATMENT for venous thrombosis and/or pulmonary embolus.HIGH RISK: Target INR is 2.5-3.5 for patients with mechanical heart valves.While on warfarin.VANCOMYCIN LEVEL, TROUGH 2018-03-27 18:17:00 Test Item Value Reference Range Interpretation Comments VANCOMYCIN TROUGH (BEAKER) (test 25.2 ug/mL 10.0-20.0 H code = 522) BASIC METABOLIC [id number] 15:13:00 Test Item Value Reference Range Interpretation Comments SODIUM (BEAKER) 137 meq/L 136-145 (test code = 381) POTASSIUM (BEAKER) 3.6 meq/L 3.5-5.1 (test code = 379) CHLORIDE (BEAKER) 108 meq/L 98-107 H (test code = 382) CO2 (BEAKER) (test 22 meq/L 22-29 code = 355) BLOOD UREA NITROGEN 16 mg/dL 7-21 (BEAKER) (test code = 354) CREATININE (BEAKER) 1.06 mg/dL 0.57-1.25 (test code = 358) GLUCOSE RANDOM 125 mg/dL 70-105 H (BEAKER) (test code = 652) CALCIUM (BEAKER) 8.6 mg/dL 8.4-10.2 (test code = 697) EGFR (BEAKER) (test 68 mL/min/1.73 ESTIMA JAIME GFR IS code = 1092) sq m NOT ACCURATE CREATININE CLEARANCE IN PREDICTING GLOMERULAR FILTRATION RATE . ESTIMATED GFR I S NOT APPLICABLE FOR DIALYSIS PATIEN TS. PROTHROMBIN TIME/[id number] 06:16:00 Test Item Value Reference Range Interpretation Comments PROTIME (BEAKER) (test code = 21.9 seconds 11.7-14.7 H 759) INR (BEAKER) (test code = 370) 1.9 <=5.9 RECOMMENDED COUMADIN/WARFARIN INR THERAPY RANGESSTANDARD DOSE: 2.0 - 3.0 Includes: PROPHYLAXIS forvenous thrombosis, systemic embolization; TREATMENT for venous thrombosis and/or pulmonary embolus.HIGH RISK: Target INR is 2.5-3.5 for patients with mechanical heart valves.While on warfarin.LACTIC ACID, VENOUS, WHOLE [id number] 06:09:00 Test Item Value Reference Range Interpretation Comments LACTATE BLOOD VENOUS (2) (BEAKER) 0.6 mmol/L 0.5-2.2 (test code = 2872) Effective 12/12/2015: Units/Reference Range ChangeNew: 0.5-2.2 mmol/L Previous: 5-20 mg/dLTISSUE [id number] 11:35:00Surgical Pathology Report Case: [id number] Authorizing Provider: Aris Parker MD Collected: 03/23/2018 1136 Ordering Location: [facility] Received: 03/23/2018 1158 PERIOPERATIVE SERVICES Pathologist: Lanie Jaquez MD Specimen: Groin, Right, Right Groin Tissue SOFT TISSUE, RIGHT GROIN, DEBRIDEMENT: - FIBROADIPOSE TISSUE WITH FAT NECROSIS, ACUTE AND CHRONIC INFLAMMATION, AND FOREIGN BODY GIANT CELL REACTION Signing Pathologist Direct Phone Line: [phone] signed by Lanie Jaquez MD on 03/26/2018 at 11:35 [id number] groin tissueThe specimen is received in a formalin-filled container and labeled with the patient's information and labeled "right groin tissue" and consists of a segment of rodríguez-chapman hemorrhagic soft tissue measuring 3 x 1.6 x 0.5 cm. Interactive Graphic Designer sections are submitted A1.CG/pl Performed.SURGICALLY OBTAINED CULTURE + GRAM [id number] 09:47:00 Test Item Value Reference Range Interpretation Comments GRAM STAIN RESULT (BEAKER) <1+ WBCs (test code = 1123) GRAM STAIN RESULT (BEAKER) No organisms seen (test code = 63762) SURGICALLY OBTAINED CULTURE + GRAM [id number] 09:45:00 Test Item Value Reference Interpretation Comments Range CULTURE (BEAKER) METHICILLIN A 1+ Methicil rikki (test code = 1095) RESISTANT resistant STAPHYLOCOCCUS Staphylococcu s AUREUS aureus Clindamycin (test R code = 10) Erythromycin (test R code = 4) Linezolid (test code S = 40) Nitrofurantoin (test S code = 23) Oxacillin (test code R = 14) Rifampin (test code = S 43) Tetracycline (test S code = 2) Trimethoprim + S Sulfamethoxazole (test code = 47) Vancomycin (test code S = 13) CULTURE (BEAKER) ENTEROCOCCUS A 1+ Enteroco ccus (test code = 1095) SPECIES species Ampicillin (test code S = 26) Linezolid (test code S = 40) Vancomycin (test code S = 13) GRAM STAIN RESULT <1+ WBCs (BEAKER) (test code = 1123) GRAM STAIN RESULT No organisms seen (BEAKER) (test code = 936470) BASIC METABOLIC [id number] 05:17:00 Test Item Value Reference Range Interpretation Comments SODIUM (BEAKER) 136 meq/L 136-145 (test code = 381) POTASSIUM (BEAKER) 3.5 meq/L 3.5-5.1 (test code = 379) CHLORIDE (BEAKER) 107 meq/L 98-107 (test code = 382) CO2 (BEAKER) (test 22 meq/L 22-29 code = 355) BLOOD UREA NITROGEN 9 mg/dL 7-21 (BEAKER) (test code = 354) CREATININE (BEAKER) 1.01 mg/dL 0.57-1.25 (test code = 358) GLUCOSE RANDOM 88 mg/dL 70-105 (BEAKER) (test code = 652) CALCIUM (BEAKER) 8.5 mg/dL 8.4-10.2 (test code = 697) EGFR (BEAKER) (test 72 mL/min/1.73 ESTIMA JAIME GFR IS code = 1092) sq m NOT ACCURATE CREATININE CLEARANCE IN PREDICTING GLOMERULAR FILTRATION RATE . ESTIMATED GFR I S NOT APPLICABLE FOR DIALYSIS PATIEN TS. PROTHROMBIN [id number] 05:06:00 Test Item Value Reference Range Interpretation Comments PROTIME (BEAKER) (test code = 21.9 seconds 11.7-14.7 H 759) INR (BEAKER) (test code = 370) 1.9 <=5.9 RECOMMENDED COUMADIN/WARFARIN INR THERAPY RANGESSTANDARD DOSE: 2.0 - 3.0 Includes: PROPHYLAXIS forvenous thrombosis, systemic embolization; TREATMENT for venous thrombosis and/or pulmonary embolus.HIGH RISK: Target INR is 2.5-3.5 for patients with mechanical heart valves.While on warfarin.BASIC METABOLIC PANEL 2018-03-25 07:04:00 Test Item Value Reference Range Interpretation Comments SODIUM (BEAKER) 136 meq/L 136-145 (test code = 381) POTASSIUM (BEAKER) 3.4 meq/L 3.5-5.1 L (test code = 379) CHLORIDE (BEAKER) 106 meq/L 98-107 (test code = 382) CO2 (BEAKER) (test 24 meq/L 22-29 code = 355) BLOOD UREA NITROGEN 8 mg/dL 7-21 (BEAKER) (test code = 354) CREATININE (BEAKER) 1.22 mg/dL 0.57-1.25 (test code = 358) GLUCOSE RANDOM 88 mg/dL 70-105 (BEAKER) (test code = 652) CALCIUM (BEAKER) 8.7 mg/dL 8.4-10.2 (test code = 697) EGFR (BEAKER) (test 58 mL/min/1.73 ESTIMA JAIME GFR IS code = 1092) sq m NOT ACCURATE CREATININE CLEARANCE IN PREDICTING GLOMERULAR FILTRATION RATE . ESTIMATED GFR I S NOT APPLICABLE FOR DIALYSIS PATIEN TS. PROTHROMBIN [id number] 06:28:00 Test Item Value Reference Range Interpretation Comments PROTIME (BEAKER) (test code = 25.8 seconds 11.7-14.7 H 759) INR (BEAKER) (test code = 370) 2.4 <=5.9 RECOMMENDED COUMADIN/WARFARIN INR THERAPY RANGESSTANDARD DOSE: 2.0 - 3.0 Includes: PROPHYLAXIS forvenous thrombosis, systemic embolization; TREATMENT for venous thrombosis and/or pulmonary embolus.HIGH RISK: Target INR is 2.5-3.5 for patients with mechanical heart valves.While on warfarin.CBC W/PLT COUNT & AUTO [id number] 06:18:00 Test Item Value Reference Range Interpretation Comments WHITE BLOOD CELL COUNT (BEAKER) 3.8 K/ L 3.5-10.5 (test code = 775) RED BLOOD CELL COUNT (BEAKER) 3.43 M/ L 4.63-6.08 L (test code = 761) HEMOGLOBIN (BEAKER) (test code = 9.2 GM/DL 13.7-17.5 L 410) HEMATOCRIT (BEAKER) (test code = 29.6 % 40.1-51.0 L 411) MEAN CORPUSCULAR VOLUME (BEAKER) 86.3 fL 79.0-92.2 (test code = 753) MEAN CORPUSCULAR HEMOGLOBIN 26.8 pg 25.7-32.2 (BEAKER) (test code = 751) MEAN CORPUSCULAR HEMOGLOBIN CONC 31.1 GM/DL 32.3-36.5 L (BEAKER) (test code = 752) RED CELL DISTRIBUTION WIDTH 15.8 % 11.6-14.4 H (BEAKER) (test code = 412) PLATELET COUNT (BEAKER) (test 163 K/CU MM 150-450 code = 756) MEAN PLATELET VOLUME (BEAKER) 9.9 fL 9.4-12.4 (test code = 754) NUCLEATED RED BLOOD CELLS 0 /100 WBC 0-0 (BEAKER) (test code = 413) NEUTROPHILS RELATIVE PERCENT 57 % (BEAKER) (test code = 429) LYMPHOCYTES RELATIVE PERCENT 24 % (BEAKER) (test code = 430) MONOCYTES RELATIVE PERCENT 12 % (BEAKER) (test code = 431) EOSINOPHILS RELATIVE PERCENT 6 % (BEAKER) (test code = 432) BASOPHILS RELATIVE PERCENT 1 % (BEAKER) (test code = 437) NEUTROPHILS ABSOLUTE COUNT 2.18 K/ L 1.78-5.38 (BEAKER) (test code = 670) LYMPHOCYTES ABSOLUTE COUNT 0.93 K/ L 1.32-3.57 L (BEAKER) (test code = 414) MONOCYTES ABSOLUTE COUNT (BEAKER) 0.44 K/ L 0.30-0.82 (test code = 415) EOSINOPHILS ABSOLUTE COUNT 0.23 K/ L 0.04-0.54 (BEAKER) (test code = 416) BASOPHILS ABSOLUTE COUNT (BEAKER) 0.03 K/ L 0.01-0.08 (test code = 417) IMMATURE GRANULOCYTES-RELATIVE 0 % 0-1 PERCENT (BEAKER) (test code = 2801) VANCOMYCIN LEVEL, [id number] 17:22:00 Test Item Value Reference Range Interpretation Comments VANCOMYCIN TROUGH (BEAKER) (test 14.6 ug/mL 10.0-20.0 code = 522) SPIN/CONCENTRATION [id number] 10:53:00 Test Item Value Reference Range Interpretation Comments CONCENTRATION CHARGED (BEAKER) (test Done code = 6157) BASIC METABOLIC [id number] 07:34:00 Test Item Value Reference Range Interpretation Comments SODIUM (BEAKER) 133 meq/L 136-145 L (test code = 381) POTASSIUM (BEAKER) 3.5 meq/L 3.5-5.1 (test code = 379) CHLORIDE (BEAKER) 104 meq/L 98-107 (test code = 382) CO2 (BEAKER) (test 23 meq/L 22-29 code = 355) BLOOD UREA NITROGEN 7 mg/dL 7-21 (BEAKER) (test code = 354) CREATININE (BEAKER) 0.96 mg/dL 0.57-1.25 (test code = 358) GLUCOSE RANDOM 94 mg/dL 70-105 (BEAKER) (test code = 652) CALCIUM (BEAKER) 8.8 mg/dL 8.4-10.2 (test code = 697) EGFR (BEAKER) (test 76 mL/min/1.73 ESTIMA JAIME GFR IS code = 1092) sq m NOT ACCURATE CREATININE CLEARANCE IN PREDICTING GLOMERULAR FILTRATION RATE . ESTIMATED GFR I S NOT APPLICABLE FOR DIALYSIS PATIEN TS. PROTHROMBIN [id number] 07:05:00 Test Item Value Reference Range Interpretation Comments PROTIME (BEAKER) (test code = 27.5 seconds 11.7-14.7 H 759) INR (BEAKER) (test code = 370) 2.6 <=5.9 RECOMMENDED COUMADIN/WARFARIN INR THERAPY RANGESSTANDARD DOSE: 2.0 - 3.0 Includes: PROPHYLAXIS forvenous thrombosis, systemic embolization; TREATMENT for venous thrombosis and/or pulmonary embolus.HIGH RISK: Target INR is 2.5-3.5 for patients with mechanical heart valves.CBC W/PLT COUNT & AUTO DIFFERENTIAL 2018-03-24 06:55:00 Test Item Value Reference Range Interpretation Comments WHITE BLOOD CELL COUNT (BEAKER) 5.3 K/ L 3.5-10.5 (test code = 775) RED BLOOD CELL COUNT (BEAKER) 4.03 M/ L 4.63-6.08 L (test code = 761) HEMOGLOBIN (BEAKER) (test code = 10.8 GM/DL 13.7-17.5 L 410) HEMATOCRIT (BEAKER) (test code = 34.9 % 40.1-51.0 L 411) MEAN CORPUSCULAR VOLUME (BEAKER) 86.6 fL 79.0-92.2 (test code = 753) MEAN CORPUSCULAR HEMOGLOBIN 26.8 pg 25.7-32.2 (BEAKER) (test code = 751) MEAN CORPUSCULAR HEMOGLOBIN CONC 30.9 GM/DL 32.3-36.5 L (BEAKER) (test code = 752) RED CELL DISTRIBUTION WIDTH 15.4 % 11.6-14.4 H (BEAKER) (test code = 412) PLATELET COUNT (BEAKER) (test 185 K/CU MM 150-450 code = 756) MEAN PLATELET VOLUME (BEAKER) 10.1 fL 9.4-12.4 (test code = 754) NUCLEATED RED BLOOD CELLS 0 /100 WBC 0-0 (BEAKER) (test code = 413) NEUTROPHILS RELATIVE PERCENT 65 % (BEAKER) (test code = 429) LYMPHOCYTES RELATIVE PERCENT 17 % (BEAKER) (test code = 430) MONOCYTES RELATIVE PERCENT 12 % (BEAKER) (test code = 431) EOSINOPHILS RELATIVE PERCENT 5 % (BEAKER) (test code = 432) BASOPHILS RELATIVE PERCENT 1 % (BEAKER) (test code = 437) NEUTROPHILS ABSOLUTE COUNT 3.46 K/ L 1.78-5.38 (BEAKER) (test code = 670) LYMPHOCYTES ABSOLUTE COUNT 0.91 K/ L 1.32-3.57 L (BEAKER) (test code = 414) MONOCYTES ABSOLUTE COUNT (BEAKER) 0.61 K/ L 0.30-0.82 (test code = 415) EOSINOPHILS ABSOLUTE COUNT 0.26 K/ L 0.04-0.54 (BEAKER) (test code = 416) BASOPHILS ABSOLUTE COUNT (BEAKER) 0.03 K/ L 0.01-0.08 (test code = 417) IMMATURE GRANULOCYTES-RELATIVE 0 % 0-1 PERCENT (BEAKER) (test code = 2801) BASIC METABOLIC [id number] 06:54:00 Test Item Value Reference Range Interpretation Comments SODIUM (BEAKER) 134 meq/L 136-145 L (test code = 381) POTASSIUM (BEAKER) 3.6 meq/L 3.5-5.1 (test code = 379) CHLORIDE (BEAKER) 102 meq/L 98-107 (test code = 382) CO2 (BEAKER) (test 27 meq/L 22-29 code = 355) BLOOD UREA NITROGEN 8 mg/dL 7-21 (BEAKER) (test code = 354) CREATININE (BEAKER) 0.97 mg/dL 0.57-1.25 (test code = 358) GLUCOSE RANDOM 91 mg/dL 70-105 (BEAKER) (test code = 652) CALCIUM (BEAKER) 8.4 mg/dL 8.4-10.2 (test code = 697) EGFR (BEAKER) (test 75 mL/min/1.73 ESTIMA JAIME GFR IS code = 1092) sq m NOT ACCURATE CREATININE CLEARANCE IN PREDICTING GLOMERULAR FILTRATION RATE . ESTIMATED GFR I S NOT APPLICABLE FOR DIALYSIS PATIEN TS. PROTHROMBIN [id number] 05:47:00 Test Item Value Reference Range Interpretation Comments PROTIME (BEAKER) (test code = 31.6 seconds 11.7-14.7 H 759) INR (BEAKER) (test code = 370) 3.1 <=5.9 RECOMMENDED COUMADIN/WARFARIN INR THERAPY RANGESSTANDARD DOSE: 2.0 - 3.0 Includes: PROPHYLAXIS forvenous thrombosis, systemic embolization; TREATMENT for venous thrombosis and/or pulmonary embolus.HIGH RISK: Target INR is 2.5-3.5 for patients with mechanical heart valves.CBC W/PLT COUNT & AUTO DIFFERENTIAL 2018-03-23 05:35:00 Test Item Value Reference Range Interpretation Comments WHITE BLOOD CELL COUNT (BEAKER) 4.3 K/ L 3.5-10.5 (test code = 775) RED BLOOD CELL COUNT (BEAKER) 3.62 M/ L 4.63-6.08 L (test code = 761) HEMOGLOBIN (BEAKER) (test code = 9.6 GM/DL 13.7-17.5 L 410) HEMATOCRIT (BEAKER) (test code = 31.5 % 40.1-51.0 L 411) MEAN CORPUSCULAR VOLUME (BEAKER) 87.0 fL 79.0-92.2 (test code = 753) MEAN CORPUSCULAR HEMOGLOBIN 26.5 pg 25.7-32.2 (BEAKER) (test code = 751) MEAN CORPUSCULAR HEMOGLOBIN CONC 30.5 GM/DL 32.3-36.5 L (BEAKER) (test code = 752) RED CELL DISTRIBUTION WIDTH 15.4 % 11.6-14.4 H (BEAKER) (test code = 412) PLATELET COUNT (BEAKER) (test 164 K/CU MM 150-450 code = 756) MEAN PLATELET VOLUME (BEAKER) 9.9 fL 9.4-12.4 (test code = 754) NUCLEATED RED BLOOD CELLS 0 /100 WBC 0-0 (BEAKER) (test code = 413) NEUTROPHILS RELATIVE PERCENT 57 % (BEAKER) (test code = 429) LYMPHOCYTES RELATIVE PERCENT 22 % (BEAKER) (test code = 430) MONOCYTES RELATIVE PERCENT 14 % (BEAKER) (test code = 431) EOSINOPHILS RELATIVE PERCENT 6 % (BEAKER) (test code = 432) BASOPHILS RELATIVE PERCENT 1 % (BEAKER) (test code = 437) NEUTROPHILS ABSOLUTE COUNT 2.48 K/ L 1.78-5.38 (BEAKER) (test code = 670) LYMPHOCYTES ABSOLUTE COUNT 0.96 K/ L 1.32-3.57 L (BEAKER) (test code = 414) MONOCYTES ABSOLUTE COUNT (BEAKER) 0.59 K/ L 0.30-0.82 (test code = 415) EOSINOPHILS ABSOLUTE COUNT 0.25 K/ L 0.04-0.54 (BEAKER) (test code = 416) BASOPHILS ABSOLUTE COUNT (BEAKER) 0.03 K/ L 0.01-0.08 (test code = 417) IMMATURE GRANULOCYTES-RELATIVE 1 % 0-1 PERCENT (BEAKER) (test code = 2801) TISSUE [id number] 16:28:00Surgical Pathology Report Case: [id number] Authorizing Provider: Christian Hdz MD Collected: 02/02/2018 194 Ordering Location: [facility] Received: 02/03/2018 0813 Pathologist: Sidney Wright MD Specimen: Plaque ARTERY, RIGHT EMERALD, ENDARTERECTOMY:CALCIFIC ATHEROSCLEROTIC PLAQUE WITH EROSION AND ATTACHED ORGANIZING THROMBUS Signing Pathologist Direct Phone Line: [phone] signed by Sidney Wright MDon 02/09/2018 at 4:28 [id number]; [id number] femoral artery plaqueRight femoral artery plaqueThe specimen is received in a formalin-filled container and labeled with the patient's information and labeled "right femoral artery plaque and consists of two calcified fragments of tissue both measuring 2 cm in length ranging in diameter from 0.6 to 1 cm and separate segment of hemorrhagic calcified tissue measuring 2.5 x 1.5 x 1 cm in aggregate. Interactive Graphic Designer sections are submitted A1 for decalcification. CG/pl [id number] 06:08:00 Test Item Value Reference Range Interpretation Comments PHOSPHORUS (BEAKER) (test code = 2.2 mg/dL 2.3-4.7 L 604) [id number] 06:08:00 Test Item Value Reference Range Interpretation Comments MAGNESIUM (BEAKER) (test code = 2.1 mg/dL 1.6-2.6 627) BASIC METABOLIC [id number] 06:08:00 Test Item Value Reference Range Interpretation Comments SODIUM (BEAKER) 131 meq/L 136-145 L (test code = 381) POTASSIUM (BEAKER) 3.5 meq/L 3.5-5.1 (test code = 379) CHLORIDE (BEAKER) 101 meq/L 98-107 (test code = 382) CO2 (BEAKER) (test 26 meq/L - code = 355) BLOOD UREA NITROGEN 12 mg/dL 7-21 (BEAKER) (test code = 354) CREATININE (BEAKER) 0.95 mg/dL 0.57-1.25 (test code = 358) GLUCOSE RANDOM 96 mg/dL 70-105 (BEAKER) (test code = 652) CALCIUM (BEAKER) 8.4 mg/dL 8.4-10.2 (test code = 697) EGFR (BEAKER) (test 77 mL/min/1.73 ESTIMA JAIME GFR IS code = 1092) sq m NOT ACCURATE CREATININE CLEARANCE IN PREDICTING GLOMERULAR FILTRATION RATE . ESTIMATED GFR I S NOT APPLICABLE FOR DIALYSIS PATIEN TS. CBC (HEMOGRAM ONLY)2018-02-05 05:30:00 Test Item Value Reference Range Interpretation Comments WHITE BLOOD CELL COUNT (BEAKER) 6.5 K/ L 3.5-10.5 (test code = 775) RED BLOOD CELL COUNT (BEAKER) 3.24 M/ L 4.63-6.08 L (test code = 761) HEMOGLOBIN (BEAKER) (test code = 8.5 GM/DL 13.7-17.5 L 410) HEMATOCRIT (BEAKER) (test code = 27.4 % 40.1-51.0 L 411) MEAN CORPUSCULAR VOLUME (BEAKER) 84.6 fL 79.0-92.2 (test code = 753) MEAN CORPUSCULAR HEMOGLOBIN 26.2 pg 25.7-32.2 (BEAKER) (test code = 751) MEAN CORPUSCULAR HEMOGLOBIN CONC 31.0 GM/DL 32.3-36.5 L (BEAKER) (test code = 752) RED CELL DISTRIBUTION WIDTH 18.4 % 11.6-14.4 H (BEAKER) (test code = 412) PLATELET COUNT (BEAKER) (test 127 K/CU MM 150-450 L code = 756) MEAN PLATELET VOLUME (BEAKER) 9.8 fL 9.4-12.4 (test code = 754) NUCLEATED RED BLOOD CELLS 0 /100 WBC 0-0 (BEAKER) (test code = 413) HEMOGLOBIN AND [id number] 11:55:00 Test Item Value Reference Range Interpretation Comments HEMOGLOBIN (BEAKER) (test code = 8.4 GM/DL 13.7-17.5 L 410) HEMATOCRIT (BEAKER) (test code = 28.9 % 40.1-51.0 L 411) [id number] 04:57:00 Test Item Value Reference Range Interpretation Comments PHOSPHORUS (BEAKER) (test code = 2.5 mg/dL 2.3-4.7 604) [id number] 04:57:00 Test Item Value Reference Range Interpretation Comments MAGNESIUM (BEAKER) (test code = 1.7 mg/dL 1.6-2.6 627) BASIC METABOLIC [id number] 04:57:00 Test Item Value Reference Range Interpretation Comments SODIUM (BEAKER) 131 meq/L 136-145 L (test code = 381) POTASSIUM (BEAKER) 3.9 meq/L 3.5-5.1 (test code = 379) CHLORIDE (BEAKER) 102 meq/L 98-107 (test code = 382) CO2 (BEAKER) (test 25 meq/L 22-29 code = 355) BLOOD UREA NITROGEN 9 mg/dL 7-21 (BEAKER) (test code = 354) CREATININE (BEAKER) 0.85 mg/dL 0.57-1.25 (test code = 358) GLUCOSE RANDOM 106 mg/dL 70-105 H (BEAKER) (test code = 652) CALCIUM (BEAKER) 8.2 mg/dL 8.4-10.2 L (test code = 697) EGFR (BEAKER) (test 88 mL/min/1.73 ESTIMA JAIME GFR IS code = 1092) sq m NOT ACCURATE CREATININE CLEARANCE IN PREDICTING GLOMERULAR FILTRATION RATE . ESTIMATED GFR I S NOT APPLICABLE FOR DIALYSIS PATIEN TS. CBC (HEMOGRAM ONLY)2018-02-04 04:35:00 Test Item Value Reference Range Interpretation Comments WHITE BLOOD CELL COUNT (BEAKER) 9.4 K/ L 3.5-10.5 (test code = 775) RED BLOOD CELL COUNT (BEAKER) 3.15 M/ L 4.63-6.08 L (test code = 761) HEMOGLOBIN (BEAKER) (test code = 8.1 GM/DL 13.7-17.5 L 410) HEMATOCRIT (BEAKER) (test code = 25.5 % 40.1-51.0 L 411) MEAN CORPUSCULAR VOLUME (BEAKER) 81.0 fL 79.0-92.2 (test code = 753) MEAN CORPUSCULAR HEMOGLOBIN 25.7 pg 25.7-32.2 (BEAKER) (test code = 751) MEAN CORPUSCULAR HEMOGLOBIN CONC 31.8 GM/DL 32.3-36.5 L (BEAKER) (test code = 752) RED CELL DISTRIBUTION WIDTH 18.2 % 11.6-14.4 H (BEAKER) (test code = 412) PLATELET COUNT (BEAKER) (test 125 K/CU MM 150-450 L code = 756) MEAN PLATELET VOLUME (BEAKER) 10.1 fL 9.4-12.4 (test code = 754) NUCLEATED RED BLOOD CELLS 0 /100 WBC 0-0 (BEAKER) (test code = 413) CBC W/PLT COUNT & AUTO [id number] 15:56:00 Test Item Value Reference Range Interpretation Comments WHITE BLOOD CELL COUNT (BEAKER) 13.1 K/ L 3.5-10.5 H (test code = 775) RED BLOOD CELL COUNT (BEAKER) 4.01 M/ L 4.63-6.08 L (test code = 761) HEMOGLOBIN (BEAKER) (test code = 10.2 GM/DL 13.7-17.5 L 410) HEMATOCRIT (BEAKER) (test code = 32.3 % 40.1-51.0 L 411) MEAN CORPUSCULAR VOLUME (BEAKER) 80.5 fL 79.0-92.2 (test code = 753) MEAN CORPUSCULAR HEMOGLOBIN 25.4 pg 25.7-32.2 L (BEAKER) (test code = 751) MEAN CORPUSCULAR HEMOGLOBIN CONC 31.6 GM/DL 32.3-36.5 L (BEAKER) (test code = 752) RED CELL DISTRIBUTION WIDTH 18.1 % 11.6-14.4 H (BEAKER) (test code = 412) PLATELET COUNT (BEAKER) (test 162 K/CU MM 150-450 code = 756) MEAN PLATELET VOLUME (BEAKER) 10.3 fL 9.4-12.4 (test code = 754) NUCLEATED RED BLOOD CELLS 0 /100 WBC 0-0 (BEAKER) (test code = 413) NEUTROPHILS RELATIVE PERCENT 86 % (BEAKER) (test code = 429) LYMPHOCYTES RELATIVE PERCENT 5 % (BEAKER) (test code = 430) MONOCYTES RELATIVE PERCENT 7 % (BEAKER) (test code = 431) EOSINOPHILS RELATIVE PERCENT 0 % (BEAKER) (test code = 432) BASOPHILS RELATIVE PERCENT 0 % (BEAKER) (test code = 437) NEUTROPHILS ABSOLUTE COUNT 11.26 K/ L 1.78-5.38 H (BEAKER) (test code = 670) LYMPHOCYTES ABSOLUTE COUNT 0.70 K/ L 1.32-3.57 L (BEAKER) (test code = 414) MONOCYTES ABSOLUTE COUNT (BEAKER) 0.95 K/ L 0.30-0.82 H (test code = 415) EOSINOPHILS ABSOLUTE COUNT 0.00 K/ L 0.04-0.54 L (BEAKER) (test code = 416) BASOPHILS ABSOLUTE COUNT (BEAKER) 0.04 K/ L 0.01-0.08 (test code = 417) IMMATURE GRANULOCYTES-RELATIVE 1 % 0-1 PERCENT (BEAKER) (test code = 2801) COMPREHENSIVE METABOLIC [id number] 05:49:00 Test Item Value Reference Range Interpretation Comments TOTAL PROTEIN 5.7 gm/dL 6.0-8.3 L (BEAKER) (test code = 770) ALBUMIN (BEAKER) 3.3 g/dL 3.5-5.0 L (test code = 1145) ALKALINE PHOSPHATASE 133 U/L 40-150 (BEAKER) (test code = 346) BILIRUBIN TOTAL 0.8 mg/dL 0.2-1.2 (BEAKER) (test code = 377) SODIUM (BEAKER) (test 134 meq/L 136-145 L code = 381) POTASSIUM (BEAKER) 4.1 meq/L 3.5-5.1 (test code = 379) CHLORIDE (BEAKER) 106 meq/L 98-107 (test code = 382) CO2 (BEAKER) (test 19 meq/L 22-29 L code = 355) BLOOD UREA NITROGEN 6 mg/dL 7-21 L (BEAKER) (test code = 354) CREATININE (BEAKER) 0.88 mg/dL 0.57-1.25 (test code = 358) GLUCOSE RANDOM 163 mg/dL 70-105 H (BEAKER) (test code = 652) CALCIUM (BEAKER) 8.3 mg/dL 8.4-10.2 L (test code = 697) AST (SGOT) (BEAKER) 12 U/L 5-34 (test code = 353) ALT (SGPT) (BEAKER) < U/L 6-55 L (test code = 347) EGFR (BEAKER) (test 85 mL/min/1.73 ESTIMA JAIME GFR IS code = 1092) sq m NOT ACCURATE CREATININE CLEARANCE IN PREDICTING GLOMERULAR FILTRATION RATE . ESTIMATED GFR I S NOT APPLICABLE FOR DIALYSIS PATIEN TS. [id number] 05:48:00 Test Item Value Reference Range Interpretation Comments PHOSPHORUS (BEAKER) (test code = 2.9 mg/dL 2.3-4.7 604) [id number] 05:48:00 Test Item Value Reference Range Interpretation Comments MAGNESIUM (BEAKER) (test code = 1.7 mg/dL 1.6-2.6 627) CBC W/PLT COUNT & AUTO [id number] 04:20:00 Test Item Value Reference Range Interpretation Comments WHITE BLOOD CELL COUNT (BEAKER) 15.4 K/ L 3.5-10.5 H (test code = 775) RED BLOOD CELL COUNT (BEAKER) 4.13 M/ L 4.63-6.08 L (test code = 761) HEMOGLOBIN (BEAKER) (test code = 10.7 GM/DL 13.7-17.5 L 410) HEMATOCRIT (BEAKER) (test code = 34.3 % 40.1-51.0 L 411) MEAN CORPUSCULAR VOLUME (BEAKER) 83.1 fL 79.0-92.2 (test code = 753) MEAN CORPUSCULAR HEMOGLOBIN 25.9 pg 25.7-32.2 (BEAKER) (test code = 751) MEAN CORPUSCULAR HEMOGLOBIN CONC 31.2 GM/DL 32.3-36.5 L (BEAKER) (test code = 752) RED CELL DISTRIBUTION WIDTH 17.9 % 11.6-14.4 H (BEAKER) (test code = 412) PLATELET COUNT (BEAKER) (test code 33 K/CU MM 150-450 L = 756) MEAN PLATELET VOLUME (BEAKER) 10.0 fL 9.4-12.4 (test code = 754) NUCLEATED RED BLOOD CELLS (BEAKER) 0 /100 WBC 0-0 (test code = 413) NEUTROPHILS RELATIVE PERCENT 91 % (BEAKER) (test code = 429) LYMPHOCYTES RELATIVE PERCENT 3 % (BEAKER) (test code = 430) MONOCYTES RELATIVE PERCENT 4 % (BEAKER) (test code = 431) EOSINOPHILS RELATIVE PERCENT 0 % (BEAKER) (test code = 432) BASOPHILS RELATIVE PERCENT 0 % (BEAKER) (test code = 437) NEUTROPHILS ABSOLUTE COUNT 14.01 K/ L 1.78-5.38 H (BEAKER) (test code = 670) LYMPHOCYTES ABSOLUTE COUNT 0.46 K/ L 1.32-3.57 L (BEAKER) (test code = 414) MONOCYTES ABSOLUTE COUNT (BEAKER) 0.64 K/ L 0.30-0.82 (test code = 415) EOSINOPHILS ABSOLUTE COUNT 0.01 K/ L 0.04-0.54 L (BEAKER) (test code = 416) BASOPHILS ABSOLUTE COUNT (BEAKER) 0.05 K/ L 0.01-0.08 (test code = 417) IMMATURE GRANULOCYTES-RELATIVE 1 % 0-1 PERCENT (BEAKER) (test code = 2801) VANCOMYCIN LEVEL, [id number] 23:58:00 Test Item Value Reference Range Interpretation Comments VANCOMYCIN TROUGH (BEAKER) (test code < ug/mL 10.0-20.0 L = 522) PROTHROMBIN [id number] 23:27:00 Test Item Value Reference Range Interpretation Comments PROTIME (BEAKER) (test code = 15.6 seconds 11.7-14.7 H 759) INR (BEAKER) (test code = 370) 1.2 <=5.9 RECOMMENDED COUMADIN/WARFARIN INR THERAPY RANGESSTANDARD DOSE: 2.0 - 3.0 Includes: PROPHYLAXIS forvenous thrombosis, systemic embolization; TREATMENT for venous thrombosis and/or pulmonary embolus.HIGH RISK: Target INR is 2.5-3.5 for patients with mechanical heart valves.[id number] 23:27:00 Test Item Value Reference Range Interpretation Comments FIBRINOGEN LEVEL (BEAKER) (test 276 mg/dl 225-434 code = 658) [id number] 23:27:00 Test Item Value Reference Range Interpretation Comments PARTIAL THROMBOPLASTIN TIME 29.8 seconds 22.5-36.0 (BEAKER) (test code = 760) CBC W/PLT COUNT & AUTO [id number] 23:22:00 Test Item Value Reference Range Interpretation Comments WHITE BLOOD CELL COUNT (BEAKER) 18.8 K/ L 3.5-10.5 H (test code = 775) RED BLOOD CELL COUNT (BEAKER) 4.49 M/ L 4.63-6.08 L (test code = 761) HEMOGLOBIN (BEAKER) (test code = 11.3 GM/DL 13.7-17.5 L 410) HEMATOCRIT (BEAKER) (test code = 37.7 % 40.1-51.0 L 411) MEAN CORPUSCULAR VOLUME (BEAKER) 84.0 fL 79.0-92.2 (test code = 753) MEAN CORPUSCULAR HEMOGLOBIN 25.2 pg 25.7-32.2 L (BEAKER) (test code = 751) MEAN CORPUSCULAR HEMOGLOBIN CONC 30.0 GM/DL 32.3-36.5 L (BEAKER) (test code = 752) RED CELL DISTRIBUTION WIDTH 17.5 % 11.6-14.4 H (BEAKER) (test code = 412) PLATELET COUNT (BEAKER) (test 196 K/CU MM 150-450 code = 756) MEAN PLATELET VOLUME (BEAKER) 10.0 fL 9.4-12.4 (test code = 754) NUCLEATED RED BLOOD CELLS 0 /100 WBC 0-0 (BEAKER) (test code = 413) NEUTROPHILS RELATIVE PERCENT 89 % (BEAKER) (test code = 429) LYMPHOCYTES RELATIVE PERCENT 3 % (BEAKER) (test code = 430) MONOCYTES RELATIVE PERCENT 6 % (BEAKER) (test code = 431) EOSINOPHILS RELATIVE PERCENT 0 % (BEAKER) (test code = 432) BASOPHILS RELATIVE PERCENT 0 % (BEAKER) (test code = 437) NEUTROPHILS ABSOLUTE COUNT 16.79 K/ L 1.78-5.38 H (BEAKER) (test code = 670) LYMPHOCYTES ABSOLUTE COUNT 0.60 K/ L 1.32-3.57 L (BEAKER) (test code = 414) MONOCYTES ABSOLUTE COUNT (BEAKER) 1.17 K/ L 0.30-0.82 H (test code = 415) EOSINOPHILS ABSOLUTE COUNT 0.02 K/ L 0.04-0.54 L (BEAKER) (test code = 416) BASOPHILS ABSOLUTE COUNT (BEAKER) 0.04 K/ L 0.01-0.08 (test code = 417) IMMATURE GRANULOCYTES-RELATIVE 1 % 0-1 PERCENT (BEAKER) (test code = 2801) [id number] 23:21:00 Test Item Value Reference Range Interpretation Comments PHOSPHORUS (BEAKER) (test code = 3.1 mg/dL 2.3-4.7 604) [id number] 23:21:00 Test Item Value Reference Range Interpretation Comments MAGNESIUM (BEAKER) (test code = 1.7 mg/dL 1.6-2.6 627) BASIC METABOLIC [id number] 23:21:00 Test Item Value Reference Range Interpretation Comments SODIUM (BEAKER) 133 meq/L 136-145 L (test code = 381) POTASSIUM (BEAKER) 4.2 meq/L 3.5-5.1 (test code = 379) CHLORIDE (BEAKER) 105 meq/L 98-107 (test code = 382) CO2 (BEAKER) (test 17 meq/L 22-29 L code = 355) BLOOD UREA NITROGEN 7 mg/dL 7-21 (BEAKER) (test code = 354) CREATININE (BEAKER) 0.99 mg/dL 0.57-1.25 (test code = 358) GLUCOSE RANDOM 155 mg/dL 70-105 H (BEAKER) (test code = 652) CALCIUM (BEAKER) 8.3 mg/dL 8.4-10.2 L (test code = 697) EGFR (BEAKER) (test 74 mL/min/1.73 ESTIMA JAIME GFR IS code = 1092) sq m NOT ACCURATE CREATININE CLEARANCE IN PREDICTING GLOMERULAR FILTRATION RATE . ESTIMATED GFR I S NOT APPLICABLE FOR DIALYSIS PATIEN TS. HEPATIC FUNCTION [id number] 23:21:00 Test Item Value Reference Range Interpretation Comments TOTAL PROTEIN (BEAKER) (test code = 5.8 gm/dL 6.0-8.3 L 770) ALBUMIN (BEAKER) (test code = 1145) 3.5 g/dL 3.5-5.0 BILIRUBIN TOTAL (BEAKER) (test code 1.5 mg/dL 0.2-1.2 H = 377) BILIRUBIN DIRECT (BEAKER) (test 0.8 mg/dL 0.1-0.5 H code = 706) ALKALINE PHOSPHATASE (BEAKER) (test 142 U/L 40-150 code = 346) AST (SGOT) (BEAKER) (test code = 12 U/L 5-34 353) ALT (SGPT) (BEAKER) (test code = 7 U/L 6-55 347) LACTIC ACID, ARTERIAL, WHOLE [id number] 23:15:00 Test Item Value Reference Range Interpretation Comments LACTATE BLOOD ARTERIAL (2) 1.7 mmol/L 0.5-2.2 (BEAKER) (test code = 2874) Effective 12/12/2015: Units/Reference Range ChangeNew: 0.5-2.2 mmol/L Previous: 5-20 mg/dLRAD, CHEST, 1 VIEW, NON [id number] 23:12:00Reason for exam:- >s/p cardiac surgeryShould this be performed at the bedside?->YesFINAL REPORT Chest, one view HISTORY: Postop COMPARISON: CTA of the chest from 11/26/2017 DISCUSSION: Tortuosity and enlargement of the thoracic aorta, as seen on prior CTA. Lungsgrossly clear without focal consolidation. No large pleural effusion or pneumothorax. Aortic valve prosthesis is seen. No acute osseous abnormality. IMPRESSION: Unchanged tortuosity and enlargement of t he thoracic aorta. No new acute cardiopulmonary abnormality. Signed: Denzel Huitron MDReport Verified Date/Time: 02/02/2018 23:12:37 Reading Location: [facility] [id number] Consult Reading Room Electronicallysigned by: DENZEL HUITRON MD on 02/02/2018 11:12 PMHEMOGLOBIN AND [id number] 23:06:00 Test Item Value Reference Range Interpretation Comments HEMOGLOBIN (BEAKER) (test code = 11.3 GM/DL 13.7-17.5 L 410) HEMATOCRIT (BEAKER) (test code = 37.7 % 40.1-51.0 L 411) CALCIUM, [id number] 22:57:00 Test Item Value Reference Range Interpretation Comments CALCIUM IONIZED (BEAKER) (test 1.02 mmol/L 1.12-1.27 L code = 698) PH, BLOOD (BEAKER) (test code = 7.38 1810) OXYGEN SATURATION, [id number] 22:56:00 Test Item Value Reference Range Interpretation Comments O2 SATURATION (MEASURED) (BEAKER) 72.2 % (test code = 1455) PROTHROMBIN [id number] 19:20:00 Test Item Value Reference Range Interpretation Comments PROTIME (BEAKER) (test code = 17.6 seconds 11.7-14.7 H 759) INR (BEAKER) (test code = 370) 1.5 <=5.9 RECOMMENDED COUMADIN/WARFARIN INR THERAPY RANGESSTANDARD DOSE: 2.0 - 3.0 Includes: PROPHYLAXIS forvenous thrombosis, systemic embolization; TREATMENT for venous thrombosis and/or pulmonary embolus.HIGH RISK: Target INR is 2.5-3.5 for patients with mechanical heart valves.[id number] 19:20:00 Test Item Value Reference Range Interpretation Comments FIBRINOGEN LEVEL (BEAKER) (test 240 mg/dl 225-434 code = 658) [id number] 19:20:00 Test Item Value Reference Range Interpretation Comments PARTIAL THROMBOPLASTIN TIME 33.3 seconds 22.5-36.0 (BEAKER) (test code = 760) PLATELET [id number] 19:00:00 Test Item Value Reference Range Interpretation Comments PLATELET COUNT (BEAKER) (test 149 K/CU MM 150-450 L code = 756) POTASSIUM-STAT [id number] 18:54:00 Test Item Value Reference Range Interpretation Comments POTASSIUM (BEAKER) (test code = 4.2 meq/L 3.6-5.5 379) HEMOGLOBIN-STAT [id number] 18:54:00 Test Item Value Reference Range Interpretation Comments HEMOGLOBIN (BEAKER) (test code = 9.9 g/dL 13.0-16.8 L 410) HEMATOCRIT-STAT [id number] 18:54:00 Test Item Value Reference Range Interpretation Comments HEMATOCRIT (BEAKER) (test code = 411) 29.0 % 40.0-50.0 L BLOOD GAS, [id number] 18:54:00 Test Item Value Reference Range Interpretation Comments PH ARTERIAL (BEAKER) (test code = 7.37 7.35-7.45 383) PCO2 ARTERIAL (BEAKER) (test code 39 mmHg 35-45 = 384) PO2 ARTERIAL (BEAKER) (test code 229 mmHg 80-90 H = 385) O2 SATURATION ARTERIAL (BEAKER) 99.5 % 96.0-97.0 H (test code = 386) HCO3 ARTERIAL (BEAKER) (test code 22 mmol/L 21-29 = 388) BASE EXCESS ARTERIAL (BEAKER) -3.4 mmol/L -2.0-3.0 L (test code = 387) PATIENT TEMPERATURE (BEAKER) 37.0 C (test code = 1818) SODIUM NA-STAT [id number] 18:54:00 Test Item Value Reference Range Interpretation Comments SODIUM (BEAKER) (test code = 381) 133 meq/L 135-148 L GLUCOSE-STAT [id number] 18:54:00 Test Item Value Reference Range Interpretation Comments GLUCOSE RANDOM (BEAKER) (test code 134 mg/dL 70-110 H = 652) HGB/HCT (H&H) - STAT [id number] 18:54:00 Test Item Value Reference Range Interpretation Comments HEMOGLOBIN (BEAKER) (test code = 9.9 GM/DL 13.0-16.8 L 410) HEMATOCRIT (BEAKER) (test code = 29.0 % 40.0-50.0 L 411) CALCIUM, [id number] 18:54:00 Test Item Value Reference Range Interpretation Comments CALCIUM IONIZED (BEAKER) (test 1.03 mmol/L 1.12-1.27 L code = 698) PH, BLOOD (BEAKER) (test code = 7.37 1810) CALCIUM, [id number] 18:13:00 Test Item Value Reference Range Interpretation Comments CALCIUM IONIZED (BEAKER) (test 1.02 mmol/L 1.12-1.27 L code = 698) PH, BLOOD (BEAKER) (test code = 7.36 1810) [id number] 17:42:00 Test Item Value Reference Range Interpretation Comments ACTIVATED CLOTTING TIME 279 sec TEST ED AT [place] [address] (BEAKER) (test code = [place] [address]) [id number] 17:42:00 Test Item Value Reference Range Interpretation Comments ACTIVATED CLOTTING TIME 224 sec TEST ED AT [place] [address] (BEAKER) (test code = [place] [address]) [address] [id number] 17:42:00 Test Item Value Reference Range Interpretation Comments ACTIVATED CLOTTING TIME 158 sec TEST ED AT [place] [address] (BEAKER) (test code = [place] [address]) [id number] HGB/HCT (H&H) - STAT [id number] 16:30:00 Test Item Value Reference Range Interpretation Comments HEMOGLOBIN (BEAKER) (test code = 9.9 GM/DL 13.0-16.8 L 410) HEMATOCRIT (BEAKER) (test code = 29.0 % 40.0-50.0 L 411) POTASSIUM-STAT [id number] 16:30:00 Test Item Value Reference Range Interpretation Comments POTASSIUM (BEAKER) (test code = 3.7 meq/L 3.6-5.5 379) SODIUM NA-STAT [id number] 16:30:00 Test Item Value Reference Range Interpretation Comments SODIUM (BEAKER) (test code = 381) 134 meq/L 135-148 L GLUCOSE-STAT [id number] 16:30:00 Test Item Value Reference Range Interpretation Comments GLUCOSE RANDOM (BEAKER) (test code 105 mg/dL 70-110 = 652) [id number] 16:17:00 Test Item Value Reference Range Interpretation Comments ACTIVATED CLOTTING TIME 301 sec TEST ED AT [place] [address] (BEAKER) (test code = [place] [address]) [id number] BLOOD GAS, [id number] 16:16:00 Test Item Value Reference Range Interpretation Comments PH ARTERIAL (BEAKER) (test code = 7.42 7.35-7.45 383) PCO2 ARTERIAL (BEAKER) (test code 40 mmHg 35-45 = 384) PO2 ARTERIAL (BEAKER) (test code = 205 mmHg 80-90 H 385) O2 SATURATION ARTERIAL (BEAKER) 99.4 % 96.0-97.0 H (test code = 386) HCO3 ARTERIAL (BEAKER) (test code 25 mmol/L 21-29 = 388) BASE EXCESS ARTERIAL (BEAKER) 0.8 mmol/L -2.0-3.0 (test code = 387) PATIENT TEMPERATURE (BEAKER) (test 37.0 C code = 1818) CALCIUM, [id number] 16:11:00 Test Item Value Reference Range Interpretation Comments CALCIUM IONIZED (BEAKER) (test 1.09 mmol/L 1.12-1.27 L code = 698) PH, BLOOD (BEAKER) (test code = 7.42 1810) MR, MRA, EXTREMITY, LOWER, WITHOUT FOLLOW, WITH [id number] 17:43:00 Bilateral extremitiesChristian Hdz MD [facility] Yoni Hdz MD [facility] CITYlinical Professor [facility] CenterCo Tight Cooper [facility] at [facility] of Peripheral Vascular Medicine at [address] [place], [place] [email or web address] SpringfieldFINAL REPORT MRA of the lower extremities, 28 [...] reconstruction was performed by an independent workstation (Dojo). Please refer to the contrast sheetscanned in the RIS system for the amount and route of contrast given. Note patient also have a recent CT scan TAVR evaluation in November 2017 FINDINGS: Assessment of the extravascular structures are jones ited, and patient has recent CT scan in [...] CT scan. The proximal abdominal aorta is [place]. The celiac axis, SMA are patent with [...] coil embolisation procedure as per EPIC. The [place] left external iliac artery and the left common femoral artery is patent with no obstructive lesion identified except for some mild atherosclerosis. In the right, no difference to recent CT scan, the right external iliac artery has diffuse a therosclerosis identified, and is small in calibre; the above would suggest moderate to significant diffuse of the right external iliac artery. The right common femoral artery is patent for short distance and thereafter is occluded. In the left, the left profunda system is patent. The proximal few centimeters of the left SFA could be [place]. However, there is likely a left femoral to popliteal bypassgraft identified due to the course of the artery. This graft is widely patent with no proximal or distal anastomotic stenosis present. In the left lower extremity, it appears the tibioperoneal trunk issmall and very short. The left anterior tibial artery is well identified and is patent though atheros clerosis is seen, with no critical obstructive lesion identified. The dorsalis pedis artery is seen distally. The left peroneal artery is well seen down to level of the ankle. Significant diffuse disease is seen in the left posterior tibial artery. In the right, the [place] right SFA is seen to be occluded. [...] though thereafter, it is occluded. 4. The [place] left SFA is likely occluded and a left femoral to distal popliteal bypass graft is identified that is patent with no proximal or distal anastomotic stenosis. Essentially three-vessel runoff is seen in the left lower extremity. 5. In the right, the [place] right SFA is o ccluded. It appears patient is reported to have [...] assessment of extravascular structures. Signed: Juwan Ramirez MDReport Verified Date/Time: 01/28/2018 17:43:09 Reading Location: [place] [address] Cardiology MRI C METABOLIC [id number] 07:36:00 Test Item Value Reference Range Interpretation Comments SODIUM (BEAKER) 135 meq/L 136-145 L (test code = 381) POTASSIUM (BEAKER) 4.3 meq/L 3.5-5.1 (test code = 379) CHLORIDE (BEAKER) 103 meq/L 98-107 (test code = 382) CO2 (BEAKER) (test 25 meq/L 22-29 code = 355) BLOOD UREA NITROGEN 8 mg/dL 7-21 (BEAKER) (test code = 354) CREATININE (BEAKER) 1.09 mg/dL 0.57-1.25 (test code = 358) GLUCOSE RANDOM 92 mg/dL 70-105 (BEAKER) (test code = 652) CALCIUM (BEAKER) 8.6 mg/dL 8.4-10.2 (test code = 697) EGFR (BEAKER) (test 66 mL/min/1.73 ESTIMA JAIME GFR IS code = 1092) sq m NOT ACCURATE CREATININE CLEARANCE IN PREDICTING GLOMERULAR FILTRATION RATE . ESTIMATED GFR I S NOT APPLICABLE FOR DIALYSIS PATIEN TS. CBC (HEMOGRAM ONLY)2018-01-28 07:17:00 Test Item Value Reference Range Interpretation Comments WHITE BLOOD CELL COUNT (BEAKER) 5.4 K/ L 3.5-10.5 (test code = 775) RED BLOOD CELL COUNT (BEAKER) 3.83 M/ L 4.63-6.08 L (test code = 761) HEMOGLOBIN (BEAKER) (test code = 9.6 GM/DL 13.7-17.5 L 410) HEMATOCRIT (BEAKER) (test code = 31.1 % 40.1-51.0 L 411) MEAN CORPUSCULAR VOLUME (BEAKER) 81.2 fL 79.0-92.2 (test code = 753) MEAN CORPUSCULAR HEMOGLOBIN 25.1 pg 25.7-32.2 L (BEAKER) (test code = 751) MEAN CORPUSCULAR HEMOGLOBIN CONC 30.9 GM/DL 32.3-36.5 L (BEAKER) (test code = 752) RED CELL DISTRIBUTION WIDTH 18.7 % 11.6-14.4 H (BEAKER) (test code = 412) PLATELET COUNT (BEAKER) (test 167 K/CU MM 150-450 code = 756) MEAN PLATELET VOLUME (BEAKER) 9.4 fL 9.4-12.4 (test code = 754) NUCLEATED RED BLOOD CELLS 0 /100 WBC 0-0 (BEAKER) (test code = 413) PROTHROMBIN [id number] 14:15:00 Test Item Value Reference Range Interpretation Comments PROTIME (BEAKER) (test code = 14.8 seconds 11.7-14.7 H 759) INR (BEAKER) (test code = 370) 1.2 <=5.9 RECOMMENDED COUMADIN/WARFARIN INR THERAPY RANGESSTANDARD DOSE: 2.0 - 3.0 Includes: PROPHYLAXIS forvenous thrombosis, systemic embolization; TREATMENT for venous thrombosis and/or pulmonary embolus.HIGH RISK: Target INR is 2.5-3.5 for patients with mechanical heart valves.Within 24 hours, if on CoumadinBASIC METABOLIC [id number] 06:41:00 Test Item Value Reference Range Interpretation Comments SODIUM (BEAKER) 131 meq/L 136-145 L (test code = 381) POTASSIUM (BEAKER) 3.8 meq/L 3.5-5.1 (test code = 379) CHLORIDE (BEAKER) 96 meq/L 98-107 L (test code = 382) CO2 (BEAKER) (test 28 meq/L 22-29 code = 355) BLOOD UREA NITROGEN 9 mg/dL 7-21 (BEAKER) (test code = 354) CREATININE (BEAKER) 0.95 mg/dL 0.57-1.25 (test code = 358) GLUCOSE RANDOM 110 mg/dL 70-105 H (BEAKER) (test code = 652) CALCIUM (BEAKER) 8.4 mg/dL 8.4-10.2 (test code = 697) EGFR (BEAKER) (test 77 mL/min/1.73 ESTIMA JAIME GFR IS code = 1092) sq m NOT ACCURATE CREATININE CLEARANCE IN PREDICTING GLOMERULAR FILTRATION RATE . ESTIMATED GFR I S NOT APPLICABLE FOR DIALYSIS PATIEN TS. CBC (HEMOGRAM ONLY)2017-12-10 05:53:00 Test Item Value Reference Range Interpretation Comments WHITE BLOOD CELL COUNT (BEAKER) 8.3 K/ L 3.5-10.5 (test code = 775) RED BLOOD CELL COUNT (BEAKER) 3.40 M/ L 4.63-6.08 L (test code = 761) HEMOGLOBIN (BEAKER) (test code = 8.3 GM/DL 13.7-17.5 L 410) HEMATOCRIT (BEAKER) (test code = 27.9 % 40.1-51.0 L 411) MEAN CORPUSCULAR VOLUME (BEAKER) 82.1 fL 79.0-92.2 (test code = 753) MEAN CORPUSCULAR HEMOGLOBIN 24.4 pg 25.7-32.2 L (BEAKER) (test code = 751) MEAN CORPUSCULAR HEMOGLOBIN CONC 29.7 GM/DL 32.3-36.5 L (BEAKER) (test code = 752) RED CELL DISTRIBUTION WIDTH 20.0 % 11.6-14.4 H (BEAKER) (test code = 412) PLATELET COUNT (BEAKER) (test 276 K/CU MM 150-450 code = 756) MEAN PLATELET VOLUME (BEAKER) 10.2 fL 9.4-12.4 (test code = 754) NUCLEATED RED BLOOD CELLS 0 /100 WBC 0-0 (BEAKER) (test code = 413) BLOOD GAS, [id number] 10:39:00 Test Item Value Reference Range Interpretation Comments PH ARTERIAL (BEAKER) (test code = 7.33 7.35-7.45 L 383) PCO2 ARTERIAL (BEAKER) (test code 48 mmHg 35-45 H = 384) PO2 ARTERIAL (BEAKER) (test code 198 mmHg 80-90 H = 385) O2 SATURATION ARTERIAL (BEAKER) 99.3 % 96.0-97.0 H (test code = 386) HCO3 ARTERIAL (BEAKER) (test code 25 mmol/L 21-29 = 388) BASE EXCESS ARTERIAL (BEAKER) -1.5 mmol/L -2.0-3.0 (test code = 387) PATIENT TEMPERATURE (BEAKER) 36.2 C (test code = 1818) FIO2 (BEAKER) (test code = 1819) 46.0 % SODIUM NA-STAT [id number] 10:39:00 Test Item Value Reference Range Interpretation Comments SODIUM (BEAKER) (test code = 381) 131 meq/L 135-148 L POTASSIUM-STAT [id number] 10:39:00 Test Item Value Reference Range Interpretation Comments POTASSIUM (BEAKER) (test code = 3.1 meq/L 3.6-5.5 L 379) GLUCOSE-STAT [id number] 10:39:00 Test Item Value Reference Range Interpretation Comments GLUCOSE RANDOM (BEAKER) (test code 121 mg/dL 70-110 H = 652) HGB/HCT (H&H) - STAT [id number] 10:39:00 Test Item Value Reference Range Interpretation Comments HEMOGLOBIN (BEAKER) (test code = 8.1 g/dL 13.0-16.8 L 410) HEMATOCRIT (BEAKER) (test code = 24.0 % 40.0-50.0 L 411) [id number] 10:10:00 Test Item Value Reference Range Interpretation Comments ACTIVATED CLOTTING TIME 224 sec TEST ED AT [facility] 6720 (BEAKER) (test code = [place] [address]) [address] CBC (HEMOGRAM ONLY)2017-12-05 06:51:00 Test Item Value Reference Range Interpretation Comments WHITE BLOOD CELL COUNT (BEAKER) 6.4 K/ L 3.5-10.5 (test code = 775) RED BLOOD CELL COUNT (BEAKER) 3.63 M/ L 4.63-6.08 L (test code = 761) HEMOGLOBIN (BEAKER) (test code = 9.0 GM/DL 13.7-17.5 L 410) HEMATOCRIT (BEAKER) (test code = 30.4 % 40.1-51.0 L 411) MEAN CORPUSCULAR VOLUME (BEAKER) 83.7 fL 79.0-92.2 (test code = 753) MEAN CORPUSCULAR HEMOGLOBIN 24.8 pg 25.7-32.2 L (BEAKER) (test code = 751) MEAN CORPUSCULAR HEMOGLOBIN CONC 29.6 GM/DL 32.3-36.5 L (BEAKER) (test code = 752) RED CELL DISTRIBUTION WIDTH 20.3 % 11.6-14.4 H (BEAKER) (test code = 412) PLATELET COUNT (BEAKER) (test 275 K/CU MM 150-450 code = 756) MEAN PLATELET VOLUME (BEAKER) 9.8 fL 9.4-12.4 (test code = 754) NUCLEATED RED BLOOD CELLS 0 /100 WBC 0-0 (BEAKER) (test code = 413) BASIC METABOLIC [id number] 06:44:00 Test Item Value Reference Range Interpretation Comments SODIUM (BEAKER) 134 meq/L 136-145 L (test code = 381) POTASSIUM (BEAKER) 4.1 meq/L 3.5-5.1 (test code = 379) CHLORIDE (BEAKER) 102 meq/L 98-107 (test code = 382) CO2 (BEAKER) (test 24 meq/L 22-29 code = 355) BLOOD UREA NITROGEN 9 mg/dL 7-21 (BEAKER) (test code = 354) CREATININE (BEAKER) 1.01 mg/dL 0.57-1.25 (test code = 358) GLUCOSE RANDOM 93 mg/dL 70-105 (BEAKER) (test code = 652) CALCIUM (BEAKER) 8.7 mg/dL 8.4-10.2 (test code = 697) EGFR (BEAKER) (test 72 mL/min/1.73 ESTIMA JAIME GFR IS code = 1092) sq m NOT ACCURATE CREATININE CLEARANCE IN PREDICTING GLOMERULAR FILTRATION RATE . ESTIMATED GFR I S NOT APPLICABLE FOR DIALYSIS PATIEN TS. [id number] 12:39:00 Test Item Value Reference Range Interpretation Comments ACTIVATED CLOTTING TIME 136 sec TEST ED AT [facility] 6720 [facility] (test code = [place] 441) [id number] 11:51:00 Test Item Value Reference Range Interpretation Comments ACTIVATED CLOTTING TIME 147 sec TEST ED AT [place] [address] ([facility]) (test code = [place] 441) [id number] 09:21:00 Test Item Value Reference Range Interpretation Comments ACTIVATED CLOTTING TIME 213 sec TEST ED AT [place] [address] ([facility]) (test code = DIMITRIS Ag [place] 441) [id number] 08:58:00 Test Item Value Reference Range Interpretation Comments ACTIVATED CLOTTING TIME 191 sec TEST ED AT [place] [address] ([facility]) (test code = DIMITRIS Ag [facility] 441) [id number] CT, CTA [id number] 11:56:00Addendum BeginsREPORT STATUS:A Addendum: The images were reviewed with Dr. Hdz. There is a missing dictation, specifically, despite the aortic bypass surgery the [place] left common iliac artery is still patent with retrograde filling from the left external iliac artery, with aneurysmal dilation identified. Image 466, it measures approximately 4.3 x 4.2 cm in diameter. Some intraluminal thrombus is seen. This is the left common iliac artery. The left internal iliac artery is also patent, with calcification present. Signed: Juwan Ramirez MDReport Verified Date/Time: 11/27/2017 11:56:33 Reading Location: [place] [address] Cardiology MRIAddendum EndsAddendum BeginsREPORT STATUS:A ADDENDUM: Study [...] radon, asbestos, or uranium. Low-risk patient:Nodule size:<6 mm:No follow-up needed.6-8 mm: CT at 6-12 months, then consider CT at 18-24 months. >8 mm: Consider CT at 3 months, PET-CT, or biopsy. High-risk patient:Nodule size:<6 mm: Optional CT at 12 months.6-8 mm: CT at 6-12 months, then CT at 18-24 months. >8 mm: Consider CT at 3 months, PET-CT, or biopsy. Signed: Adryan Barroweport Verified Date/Time: 11/26/2017 18:03:42 Reading Location: [facility] P048 Angio Body Reading RoomAddendum EndsFINAL [...] patient size and/or use of iterative reconstruction t echnique. Dose modulation, iterative reconstruction, and/or weight based [...] takeoff of the left renal artery with etkz-mc-xdocxjop stenosis identified. Arch vessel branching pattern is [...] measured 78 mm and the cross-sectional area measu res 472 mm2. The aortic annulus diameter at [...] For reference purpose, per [employer] R ora, recommendation are as follows: CT perimeter between [...] (diastole): 32.0 mmThe sinus of Valsalvadiameter, LCC (diastole): 32.6 mmThe sinus of Valsalva [...] measures 7.6 and 8.2 mm, respectively with m ild tortuosity and qeqc-do-sglruewq calcific atherosclerosis present. Right iliac limb is [...] dictated, however, the ordering physician is the WATCH MANUFACTURING SUPERVISOR PERFORMANCE SOLUTIONS SPECIALIST of the [facility] and therefore no recommendation would be necessary. [...] An addendum will be dictated by the Deck Officer Radiologist regarding the nonvascular findings. Signed: Juwan Ramirez MDReport Verified Date/Time: 11/26/2017 16:25:25 Reading Location: [place] [address], CTA, [id number] 11:56:00Addendum BeginsREPORT STATUS:A Addendum: The images were reviewed with Dr. Reinier staples. There is a missing dictation, specifically, despite the aortic bypass surgery the [place] left common iliac artery is still patent with retrograde filling from the left external iliac artery, with aneurysmal dilation identified. Image 466, it measures approximately 4.3 x 4.2 cm in diameter. Some intraluminal thrombus is seen. This is the left common iliac artery. The left internal iliac artery is also patent, with calcification present. Signed: Juwan Ramirezort Verified Date/Time: 11/27/2017 11:56:33 Reading Location: [place] [address] Cardiology MRIAddendum EndsAddendum BeginsREPORT STATUS:A ADDENDUM: Study [...] radon, asbestos, or uranium. Low-risk patient:Nodule size:<6 mm:No follow-up needed.6-8 mm: CT at 6-12 months, then consider CT at 18-24 months. >8 mm: Consider CT at 3 months, PET-CT, or biopsy. High-risk patient:Nodule size:<6 mm: Optional CT at 12 months.6-8 mm: CT at 6-12 months, then CT at 18-24 months. >8 mm: Consider CT at 3 months, PET-CT, or biopsy. Signed: Adryan Barroweport Verified Date/Time: 11/26/2017 18:03:42 Reading Location: [place] [address] Angio Body Reading RoomAddendum EndsFINAL REPORT CT angiography of the thoracoabdominal aorta and pelvic arteries, 26 November 2017 INDICATION: This is a 72 year old male with aortic stenosis presents for preprocedure TAVR assessment. There is a clinical concern of aortic aneurysm. This study is performed in an attempt to avoid an invasive procedure. TECHNIQUE: Spiral acqu isition before and during intravenous contrast administration using [...] takeoff of the left renal artery with fujl-xv-uwqkt ate stenosis identified. Arch vessel branching pattern is normal and the visualised arch vessels areseen to be widely patent proximally. The left vertebral artery arises early from the transverse arch, anterior to the takeoff of the left subclavian artery, common variant. The right vertebral artery sl ightly larger in size than the left vertebral [...] (diastole): 32.0 mmThe sinus of Valsalvadiameter, LCC (diastole): 32.6 mmThe sinus of Valsalva diameter, NCC (diastole): 34.6 mm The sinotubular junction measures approximately 28.8 x 29.8 mm. The aortic root angulation measures 49.3 degrees. The minimal and perpendicular abdominal aortic diameter measure 24.2 and 25.0 mm, respectively at image 362. There is no evidence of thoracoabdominal aortic aneurysm or stent placement present. The min imum and the perpendicular left common iliac artery [...] 8.2 mm, respectively with mild tortuosity and ohuz-fc-umnhsvub calcific atherosclerosis present. Right iliac limb is [...] not enlarged. The gallbladder is not well ap preciated. The pancreas appears unremarkable. No acute renal [...] dictated, however, the ordering physician is the WATCH MANUFACTURING SUPERVISOR PERFORMANCE SOLUTIONS SPECIALIST of the [facility] and therefore no recommendation would [...] An addendum will be dictated by the Deck Officer Radiologist regarding the nonvascular findings. Signed: Juwan Ramirez MDReport Verified Date/Time: 11/26/2017 16:25:25 Reading Location: [place] [address] Cardiology MRI B-TYPE NATRIURETIC FACTOR (BNP)2017-11-26 18:03:00 Test Item Value Reference Range Interpretation Comments B-TYPE NATRIURETIC PEPTIDE (BEAKER) 142 pg/mL 0-100 H (test code = 700) COMPREHENSIVE METABOLIC [id number] 17:56:00 Test Item Value Reference Range Interpretation Comments TOTAL PROTEIN 6.8 gm/dL 6.0-8.3 (BEAKER) (test code = 770) ALBUMIN (BEAKER) 3.9 g/dL 3.5-5.0 (test code = 1145) ALKALINE PHOSPHATASE 133 U/L 40-150 (BEAKER) (test code = 346) BILIRUBIN TOTAL 0.4 mg/dL 0.2-1.2 (BEAKER) (test code = 377) SODIUM (BEAKER) (test 135 meq/L 136-145 L code = 381) POTASSIUM (BEAKER) 4.3 meq/L 3.5-5.1 (test code = 379) CHLORIDE (BEAKER) 99 meq/L 98-107 (test code = 382) CO2 (BEAKER) (test 26 meq/L 22-29 code = 355) BLOOD UREA NITROGEN 6 mg/dL 7-21 L (BEAKER) (test code = 354) CREATININE (BEAKER) 1.14 mg/dL 0.57-1.25 (test code = 358) GLUCOSE RANDOM 104 mg/dL 70-105 (BEAKER) (test code = 652) CALCIUM (BEAKER) 8.9 mg/dL 8.4-10.2 (test code = 697) AST (SGOT) (BEAKER) 12 U/L 5-34 (test code = 353) ALT (SGPT) (BEAKER) 7 U/L 6-55 (test code = 347) EGFR (BEAKER) (test 63 mL/min/1.73 ESTIMA JAIME GFR IS code = 1092) sq m NOT ACCURATE CREATININE CLEARANCE IN PREDICTING GLOMERULAR FILTRATION RATE . ESTIMATED GFR I S NOT APPLICABLE FOR DIALYSIS PATIEN TS. PROTHROMBIN TIME/[id number] 17:33:00 Test Item Value Reference Range Interpretation Comments PROTIME (BEAKER) (test code = 16.5 seconds 11.7-14.7 H 759) INR (BEAKER) (test code = 370) 1.3 <=5.9 RECOMMENDED COUMADIN/WARFARIN INR THERAPY RANGESSTANDARD DOSE: 2.0 - 3.0 Includes: PROPHYLAXIS forvenous thrombosis, systemic embolization; TREATMENT for venous thrombosis and/or pulmonary embolus.HIGH RISK: Target INR is 2.5-3.5 for patients with mechanical heart valves.CBC W/PLT COUNT & AUTO DIFFERENTIAL 2017-11-26 17:24:00 Test Item Value Reference Range Interpretation Comments WHITE BLOOD CELL COUNT (BEAKER) 7.7 K/ L 3.5-10.5 (test code = 775) RED BLOOD CELL COUNT (BEAKER) 3.66 M/ L 4.63-6.08 L (test code = 761) HEMOGLOBIN (BEAKER) (test code = 9.1 GM/DL 13.7-17.5 L 410) HEMATOCRIT (BEAKER) (test code = 31.7 % 40.1-51.0 L 411) MEAN CORPUSCULAR VOLUME (BEAKER) 86.6 fL 79.0-92.2 (test code = 753) MEAN CORPUSCULAR HEMOGLOBIN 24.9 pg 25.7-32.2 L (BEAKER) (test code = 751) MEAN CORPUSCULAR HEMOGLOBIN CONC 28.7 GM/DL 32.3-36.5 L (BEAKER) (test code = 752) RED CELL DISTRIBUTION WIDTH 19.5 % 11.6-14.4 H (BEAKER) (test code = 412) PLATELET COUNT (BEAKER) (test 243 K/CU MM 150-450 code = 756) MEAN PLATELET VOLUME (BEAKER) 10.0 fL 9.4-12.4 (test code = 754) NUCLEATED RED BLOOD CELLS 0 /100 WBC 0-0 (BEAKER) (test code = 413) NEUTROPHILS RELATIVE PERCENT 73 % (BEAKER) (test code = 429) LYMPHOCYTES RELATIVE PERCENT 13 % (BEAKER) (test code = 430) MONOCYTES RELATIVE PERCENT 9 % (BEAKER) (test code = 431) EOSINOPHILS RELATIVE PERCENT 4 % (BEAKER) (test code = 432) BASOPHILS RELATIVE PERCENT 1 % (BEAKER) (test code = 437) NEUTROPHILS ABSOLUTE COUNT 5.64 K/ L 1.78-5.38 H (BEAKER) (test code = 670) LYMPHOCYTES ABSOLUTE COUNT 0.98 K/ L 1.32-3.57 L (BEAKER) (test code = 414) MONOCYTES ABSOLUTE COUNT (BEAKER) 0.69 K/ L 0.30-0.82 (test code = 415) EOSINOPHILS ABSOLUTE COUNT 0.30 K/ L 0.04-0.54 (BEAKER) (test code = 416) BASOPHILS ABSOLUTE COUNT (BEAKER) 0.05 K/ L 0.01-0.08 (test code = 417) IMMATURE GRANULOCYTES-RELATIVE 0 % 0-1 PERCENT (BEAKER) (test code = 2801) FUPY-MSTTNPDSYC0291-21-19 12:34:00 Test Item Value Reference Range Interpretation Comments POC-CREATININE 1.1 mg/dL 0.6-1.3 TESTED AT [facility] 6720 (BEAKER) (test [place] code = 1859) [address] POC-EGFR (BEAKER) 65 mL/min/1.73M2 (test code = 1860) FRTDJNILTH6733-54-22 06:22:001.08[facility] EqshtzhQWDWDUZRLM5020-93-93 06:22:00 Test Item Value Reference Range Interpretation Comments PT (test code = PT) 14.2 s 12.0-14.7 [facility]ffPXRFWVPPHG3795-45-85 16:33:001.09[facility] 2016-05-28 16:33:00 Test Item Value Reference Range Interpretation Comments PTT (test code = PTT) 27.7 s 22.9-35.8 [facility] OqjhmnvANTVFIEMEC0656-42-76 16:33:00 Test Item Value Reference Range Interpretation Comments PT (test code = PT) 14.3 s 12.0-14.7 [facility] ZuhdyizDTXBZWOBES8646-97-04 16:33:97848Ajylnkxa HermannHEMATOLOGY 2016-05-28 16:33:008.4[facility] KmtjydcRBEBSLHAKE6789-64-70 16:33:0033.3[facility] WyxyzdgUCYWHMZOUT2957-11-85 16:33:0011.6[facility] UnykelqLAMVGHPNIY1085-34-66 16:33:00 Test Item Value Reference Range Interpretation Comments MCH (test code = MCH) 29.6 pg 27.0-31.0 [facility] DvtoobbSPTHNEQAPE3577-45-28 16:33:0015.0[facility] HermannHEMATOLOGY 2016-05-28 16:33:0088.9[facility] IlooeykMBRNZVOQEM8328-66-10 16:33:0035.0[facility] DxaxwfyNODGMCNMMN8135-25-38 16:33:003.94[facility] WymucjgKEICSWLEMW0051-20-85 16:33:0011.4[facility] ZsgworzGZVLKIJSRB9846-81-86 16:33:001.3[facility] KRTPNBMQDY9376-45-23 16:33:008.9[facility] WkgddclONRGXOARPS2968-89-55 16:33:001.2 [facility] GftbqipQCUZSVEUBD6649-03-70 16:33:000.1[facility] HermannHEMATOLOGY 2016-05-28 16:33:000.1[facility] WldkstrNMYCMRTCPX9394-38-25 16:33:000.5[facility] WwevikgQMXDDLDOVF7614-11-62 16:33:0011.5[facility] BogzzcuAQHAIHQQBW7366-42-42 16:33:0077.6[facility] BjiwikeIEFNZJBWCP5501-23-51 16:33:0010.3[facility] CHEM NAFHB4439-46-56 09:17:0089[facility] HermannCHEM WYIWU3177-88-82 09:17:35279 [facility]annCHEM VYESF0065-84-79 09:17:000.80[facility] HermannCHEM PANEL 2016-05-27 09:17:009[facility] HermannCHEM UXKOG0531-94-29 09:17:45946Uzbvedyk HermannCHEM ZGXYS5315-57-41 09:17:003.9[facility] HermannCHEM QDKZA9050-41-89 09:17:0022[facility] HermannCHEM BXPLM8617-67-71 09:17:47539Llluphzz HermannCHEM SXZEL0442-99-58 09:17:008.0[facility] HermannCHEM AFNMN6309-19-75 09:17:0018.9 [facility]annCHEM SFCML5451-97-70 09:17:002.3[facility] HermannCHEM PANEL 2016-05-27 09:17:001.7[facility] QzvuvgqOZCSZJSHCN6593-72-52 09:17:007.2[facility] OxgpoybRASBCDXVPA5381-69-84 09:17:007.5[facility] AdwuuhuMFJXGHXSHS2154-41-22 09:17:0085.1[facility] CpqjpldBQQGVTBSPH4312-92-78 09:17:009.0[facility] CJLJAYJZIR1569-51-28 09:17:000.2[facility] RaeykykLUQQWMSNJT7073-02-93 09:17:000.8 [facility] AiunupxCKFGBRRIFT6335-28-55 09:17:000.8[facility] HermannHEMATOLOGY 2016-05-27 09:17:0088.5[facility] VlnlqcfDVBSEVXAQW2850-35-24 09:17:0031.9[facility] AhnjmcmVVWBVLYTHZ2713-86-55 09:17:0011.0[facility] KjzzmwkPIAGPCAXPV8695-36-17 09:17:003.61[facility] BpugdapCKMOBOJHTH3010-30-58 09:17:00 Test Item Value Reference Range Interpretation Comments MCH (test code = MCH) 30.6 pg 27.0-31.0 [facility] XzwgtzdWJUDUPTXDX6583-58-67 09:17:0010.6[facility] HermannHEMATOLOGY 2016-05-27 09:17:85084Zbplujhq DnbunxpIDHEWOTMWL0171-60-49 09:17:0014.7[facility] RpthheoIOGGQZOLIM9252-45-56 09:17:0034.6[facility] UspkwozUPHLHJBAXZ8094-45-25 09:17:009.3[facility] HermannPARATHYROID ZGEKJQF3210-39-44 09:17:000.99[facility] HermannPARATHYROID SXHBRWJ6949-35-36 09:17:001.02[facility] HermannCARDIAC ENZYMES 2016-05-26 05:43:00<0.02[facility] HermannCARDIAC TIJOCZC1480-36-17 05:43:0050 [facility] HermannCHEM JXNMZ7980-41-27 05:43:002.1[facility] HermannCHEM PANEL 2016-05-26 05:43:0088[facility] HermannCHEM DBNOX5174-80-20 05:43:0023[facility] HermannCHEM ZFMXX9247-99-31 05:43:05389Cfwfvmpp HermannCHEM BFUIR4304-67-49 05:43:007.8[facility] HermannCHEM PGMPN9361-79-54 05:43:0016.2[facility] HermannCHEM RSVEA9990-23-28 05:43:04127Rrvilqhv HermannCHEM GWCHS8364-58-31 05:43:0078 [facility] HermannCHEM UUMOM6237-32-79 05:43:009[facility] HermannCHEM PANEL 2016-05-26 05:43:004.2[facility] HermannCHEM XYCYQ2906-05-90 05:43:000.81[facility] HermannCHEM WSZQC9015-99-26 05:43:003.3[facility] VxvplqyFOBBCRCEYZ7740-41-75 05:43:0034.6[facility] UbwgnfvMUWAOFCPFF6798-22-15 05:43:0014.1[facility] AAEIMBGMZW1233-38-51 05:43:003.69[facility] WiyycjhTXVBOCGVSQ3162-67-97 05:43:00 10.1[facility] SihthzbRRPUUYXOZL8235-99-92 05:43:009.0[facility] HermannHEMATOLOGY 2016-05-26 05:43:98926Tynmocjm BnuofywNQSFWZUARH1028-94-54 05:43:00 Test Item Value Reference Range Interpretation Comments MCH (test code = MCH) 30.3 pg 27.0-31.0 [facility] XxceijeMSECVOGIPY0076-25-82 05:43:0087.7[facility] HermannHEMATOLOGY 2016-05-26 05:43:0032.4[facility] SssrdpzEWHWSTXZLF7336-17-01 05:43:0011.2[facility] XbszbojJMGPHVLUBX2180-13-71 05:43:000.2[facility] WxszpqgVIFFNIZWNH7581-14-03 05:43:00See Note (05/26/16 12:43 AM)[facility] UftlhgmJFIUYKARQA5422-59-23 05:43:0015.5[facility] EhqhnjgLSKSVLSTWF0743-31-55 05:43:00 Test Item Value Reference Range Interpretation Comments Max Amp (test code = Max Amp) 75.6 mm 50.0-70.0 [facility] AktenvzWKMNSSUXGK4043-82-18 05:43:005.3[facility] HermannHEMATOLOGY 2016-05-26 05:43:00 Test Item Value Reference Range Interpretation Comments K-time (test code = K-time) 0.8 min 1.0-3.0 [facility] ZwuirpxONKKBYOVKK7358-83-88 05:43:00 Test Item Value Reference Range Interpretation Comments Angle (test code = Angle) 78.6 degrees 53.0-72.0 [facility] BlnkdsnRGIXTFSPDA8252-46-64 05:43:00 Test Item Value Reference Range Interpretation Comments R-time (test code = R-time) 2.8 min 5.0-10.0 [facility] FjifeyoDADGRBNYGI1646-02-13 05:43:0010.1[facility] HermannHEMATOLOGY 2016-05-26 05:43:0013.2[facility] WttfjabBYLQKGIDEL9168-27-30 05:43:007.7[facility] LbhxwonKGBLNXLFRL8588-10-38 05:43:000.4[facility] SftahygYYCFDSICOP0055-76-36 05:43:000.1[facility] LpjtbjgDWPXQOKHIU5253-67-92 05:43:001.0[facility] UESPVJUVEU9380-11-98 05:43:001.3[facility] IhmnmkjYEZEQUNFEH6736-95-26 05:43:00 76.2[facility] HermannPARATHYROID DNTYHZW1614-99-25 05:43:001.11[facility] PARATHYROID DNJTGBE2876-96-23 05:43:001.08[facility] HermannCHEM KMSLL9815-25-87 21:31:0080[facility] HermannCHEM WFFNF6946-13-13 21:31:0015.3[facility] HermannCHEM HCALW9235-05-23 21:31:0025[facility] HermannCHEM XRHCV0205-04-20 21:31:007.9 [facility] HermannCHEM AZMBH1678-16-07 21:31:29359Vrqzcslt HermannCHEM PANEL 2016-05-25 21:31:004.3[facility] HermannCHEM FHUPO2152-81-99 21:31:13468Vpfjwxpc HermannCHEM FCKVJ1765-68-38 21:31:000.94[facility] HermannCHEM OCYVS0565-83-30 21:31:17288Zdqnkvot HermannCHEM HJWBU6207-13-81 21:31:008[facility] UAUVKEMPNU9947-57-28 21:31:001.19[facility] IzgriliMVIJTUCKOZ8617-83-67 21:31:00 Test Item Value Reference Range Interpretation Comments PT (test code = PT) 15.4 s 12.0-14.7 [facility] JvcycfeSOTCDYDKPJ5278-54-88 21:31:00 Test Item Value Reference Range Interpretation Comments PTT (test code = PTT) 34.1 s 22.9-35.8 [facility] HermannPARATHYROID KACXXUR8375-87-92 06:49:001.07[facility] PARATHYROID UTAKMLE4023-70-35 06:49:001.04[facility] HermannCARDIAC ENZYMES 2016-05-25 06:47:00<0.02[facility] HermannCARDIAC JJWZETG4600-60-84 06:47:0057 [facility] HermannCHEM QVQQE8522-05-25 06:47:001.1[facility] HermannCHEM PANEL 2016-05-25 06:47:000.4[facility] HermannCHEM HBEBZ2913-15-45 06:47:000.6[facility] HermannCHEM LOBPS2452-18-56 06:47:000.2[facility] HermannCHEM IBHLC6729-62-97 06:47:0013[facility] HermannCHEM OUCFB5104-31-74 06:47:06410Zbxdmcjm HermannCHEM IBUDD5403-33-74 06:47:002.7[facility] HermannCHEM GBXSN8751-99-99 06:47:005.7 [facility] HermannCHEM KCIAV6763-21-03 06:47:003.0[facility] HermannCHEM PANEL 2016-05-25 06:47:0014Mem[facility] HermannCHEM FCUUZ4771-58-59 06:47:003.2[facility] HermannCHEM TSHEV3905-93-45 06:47:001.7[facility] 2016-05-25 02:09:00Positive 1(05/24/16 9:09 PM)[facility] 2016-05-25 02:09:00 Test Item Value Reference Range Interpretation Comments Max Amplitude Rapid (test code = Max 68 mm 52-71 Amplitude Rapid) [facility] CenterRaqztfcHRLQEJRETF5716-83-29 02:09:0010.4[facility] 2016-05-25 02:09:000.4[facility] CenterHtfoveuDXROBVABLM9817-13-96 02:09:00 Test Item Value Reference Range Interpretation Comments ACT (TEG) Rapid (test code = ACT (TEG) 121 s 86-118 Rapid) [facility] CenterShwpsmrONOSPGYRZR1617-53-87 02:09:00 Test Item Value Reference Range Interpretation Comments Split Point Rapid (test code = Split 0.7 min Point Rapid) [facility] CenterEedtzlmIWIFXBDPPO4964-88-30 02:09:00 Test Item Value Reference Range Interpretation Comments R-time Rapid (test code = R-time 0.8 min 0.4-0.7 Rapid) [facility] CenterDcjjgcpDJKAOEHAGX4002-34-45 02:09:00 Test Item Value Reference Range Interpretation Comments K-time Rapid (test code = K-time 0.8 min 0.6-2.3 Rapid) [facility] CenterSvcuieaTUFNQFVMNN1756-64-41 02:09:00 Test Item Value Reference Range Interpretation Comments Angle Rapid (test code = Angle 80 degrees 64-80 Rapid) [facility]EljoncjFQGDPEOTVM8172-47-93 02:09:001.7[facility] 2016-05-25 02:09:000.1[facility] XodcuqdAKPSQDOTEL0104-79-78 02:09:000.1[facility]CjqhfweJHCKNVXRCY9274-06-77 02:09:00 Test Item Value Reference Range Interpretation Comments PTT (test code = PTT) 32.0 s 22.9-35.8 [facility]
--- OUTSIDE RECORDS SUMMARY | 2020-04-25 18:24 | XMS REPORT ---
:1945 Author Organization eClinicalWorks Care Team Providers Name Role Phone Home De La Cruz Provider Role Unavailable Allergies, Adverse Reactions, Alerts Substance Reaction Event Type N.K.D.A. Info Not Available Non Drug Allergy Problems Problem Type Condition Code Onset Dates Condition Statu s Problem Cerebrovascular accident I63.9 Act emanuel Problem Depression with anxiety F41.8 Acti ve Problem Anticoagulated Z79.01 Active Problem Aortic valve stenosis I35.0 Active Problem Memory loss R41.3 Active Problem Tremor R25.1 Active Problem Peripheral vascular disease I73.9 Active Problem Occlusion and stenosis of carotid I65.29 Active artery Problem Insomnia G47.00 Active Problem Vitamin D deficiency E55.9 Active Problem Benign essential HTN I10 Active Assessment H/O TIA (transient ischemic Z86.73 Active attack) and stroke Assessment Tremor R25.1 Active Assessment Physical debility R53.81 Active Assessment Vitamin D deficiency E55.9 Active Assessment Nicotine dependence F17.200 Active Assessment Anemia in chronic illness D63.8 Ac tive Assessment 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 Assessment 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 Ac tive lumbosacral intervertebral disc Problem Chronic obstructive pulmonary J44.9 Active disease Problem Hyperlipidemia, mixed E78.2 Active Problem Vitamin B 12 deficiency E53.8 Acti ve Problem H/O fall Z91.81 Active Problem Hemiplegia and hemiparesis I69.854 A ctive following other cerebrovascular disease affecting left non-dominant side Problem Benign hypertrophy of prostate N40.0 Active Problem H/O TIA (transient ischemic Z86.73 Active attack) and stroke Problem 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 Problem Aortic aneurysm, abdominal I71.4 A ctive Problem 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 Problem 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 Assessment Occlusion and stenosis of carotid I65.29 Active artery Assessment Renal insufficiency N28.9 Active Assessment 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 Assessment Depression with anxiety F41.8 Acti ve Assessment Aortic valve stenosis I35.0 Active Assessment Generalized weakness R53.1 Active Assessment Insomnia G47.00 Active Assessment Benign hypertrophy of prostate N40.0 Active Assessment Hypocalcemia E83.51 Active Assessment Benign essential HTN I10 Active Assessment Polyneuropathy in diseases G63 A ctive classified elsewhere Assessment 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 Assessment Chronic obstructive pulmonary J44.9 Active disease Assessment Hypercoagulable state D68.59 Active Problem Nicotine dependence F17.200 Active Assessment Hyperlipidemia, mixed E78.2 Active Problem Gastrointestinal hemorrhage, K92.2 Active unspecified gastrointestinal hemorrhage type Problem Generalized weakness R53.1 Active Problem Anemia in chronic illness D63.8 Ac tive Problem Physical debility R53.81 Active Problem 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 Problem Non-healing surgical wound of T81.89XD Active right groin, subsequent encounter Problem Hypocalcemia E83.51 Active Assessment 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 Problem 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 Assessment Non-healing surgical wound of T81.89XD Active right groin, subsequent encounter Problem Anemia, unspecified type D64.9 Act emanuel Assessment Peripheral vascular disease I73.9 Active Problem Asymptomatic hypertensive urgency I16.0 Active Assessment Thoracic aortic aneurysm without I71.2 Active rupture Problem Watery diarrhea R19.7 Active Assessment Aortic aneurysm, abdominal I71.4 A ctive Problem Chronic back pain M54.9 Active Problem 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 Ferrous Sulfate [facility] 97401174806 325 (65 Fe) MG Activ e TAKE ONE (1) TABLET(S) BY MOUTH TWICE A DAY WITH MEALS. Breo Ellipta ND 82762313608 200-25 MCG/INH Active 1 puff Inhalation Once a day Lisinopril ND 45040780228 40 MG Orally Active 1 ta blet Once a day ProAir HFA [facility] 84854998813 108 (90 Base) Active 2 p uffs as MCG/ACT needed Inhalation every 6 hrs Atorvastatin [facility] 84798410625 40 MG Active TAKE ON E Calcium (1) TABLET(S) BY MOUTH NIGHTLY. Clonidine HCl [facility] 94430152564 0.1 MG Orally Active 1 tablet Twice a day at bedtime Lipitor ND 51021500038 10 MG Orally Active 1 table t Once a day Amlodipine [facility] 03099093797 5 MG Orally Active 1 tab let Besylate Once a day Warfarin Sodium [facility] 12756470511 3 MG Orally Active 1 tablet ( Once a day 4 mg + 3 mg) Zanaflex [facility] 67290405754 4 MG Orally Active 1 table t Three times a as needed day Vitamin D3 [facility] 27706951002 400 UNIT Orally Active 2 tablets Once a day Warfarin Sodium [facility] 52895988343 4 MG Orally Active 1 tablet Once a day Amlodipine [facility] 22458925136 2.5 MG Active TAKE ONE Besylate (1) TABLET(S) BY MOUTH TWICE A DAY. Primidone [facility] 24066189663 250 MG Orally Active 1 ta blet Three times a day Amitriptyline HCl [facility] 23530958359 75 MG Orally Activ e 1 tablet Once a day Prilosec [facility] 40423980521 20 MG Orally Active 1 caps ule Once a day Topamax [facility] 79890173177 25 MG Orally Active 1 table t Once a day Aspir-81 [facility] 94012044266 81 MG Orally Active 1 tabl et Once a day Results No Known Results Summary Purpose eClinicalWorks Submission
--- OUTSIDE RECORDS SUMMARY | 2020-04-25 18:24 | XMS REPORT ---
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 Ac tive lumbosacral intervertebral disc Problem Depression with anxiety F41.8 Acti ve Problem Cerebrovascular accident I63.9 Act emanuel Problem Aortic valve stenosis I35.0 Active Problem 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7 Active Problem Anemia in chronic illness D63.8 Ac tive Problem 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 Problem Anemia, unspecified type D64.9 Act emanuel Problem Hypercoagulable state D68.59 Active Problem Vitamin D deficiency E55.9 Active Problem H/O TIA (transient ischemic Z86.73 Active attack) and stroke Problem Benign essential HTN I10 Active Problem Occlusion and stenosis of carotid I65.29 Active artery Problem Thoracic aortic aneurysm without I71.2 Active rupture Problem Insomnia G47.00 Active Problem Hemiplegia and hemiparesis I69.854 A ctive following other cerebrovascular disease affecting left non-dominant side Problem 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
[2020-04-25 20:04] LABS: Absolute Lymphocytes (CBC) 0.9 K/uL (0.7-4.9); Basophils % 0.7 % (0-1.3); Hematocrit 42.7 % (39.6-49.0); Lymphocytes % 9.2 % (15.3-44.8); MPV 8.1 fL (7.6-11.3); RBC Red Blood Cell Count 4.83 M/uL (4.33-5.43)
[2020-04-25 20:05] LABS: Protime INR 1.75
--- NOTE | 2020-04-25 20:09 | RAD REPORT ---
EXAM DESCRIPTION: Janae Single View04/25/2020 8:00 pm CLINICAL HISTORY: Chest pain COMPARISON: 2018 FINDINGS: The lungs appear clear of acute infiltrate. The heart is normal size IMPRESSION: No acute abnormalities displayed
[2020-04-25 20:24] LABS: ALT/SGPT 15 U/L (12-78); AST/SGOT 16 U/L (15-37); Albumin 3.4 g/dL (3.4-5.0); Alkaline Phosphatase 227 U/L (45-117); BUN Blood Urea Nitrogen 7 mg/dL (7-18); Bicarbonate 31 mmol/L (21-32); Bilirubin Direct 0.4 mg/dL (0-0.2); Glucose Level 100 mg/dL (74-106); Magnesium 1.9 mg/dL (1.8-2.4); NT PRO-BNP 620 pg/mL (<450); Potassium 4.6 mmol/L (3.5-5.1); Protein, Total 7.5 g/dL (6.4-8.2); Sodium Level 135 mmol/L (136-145); Troponin (Emerg Dept Use Only) < 0.02 ng/mL (0.0-0.045)
[2020-04-25 22:19] LABS: Urine Blood TRACE (NEG); Urine Glucose NEGATIVE (NEG); Urine Protein NEGATIVE (NEG); Urine Specific Gravity >1.030 (1.005-1.030); Urine pH 5.5 (5.0-7.0)
--- NOTE | 2020-04-25 22:38 | ER ---
Nurse's Notes [facility] Name: Pineda Mckeon Age: 75 yrs Sex: Male : 1945 Arrival Date: 04/25/2020 Time: 18:16 Bed 2 Private MD: Diagnosis: Weakness Presentation: 04/25 18:16 Chief complaint: EMS states: Family reports he is lethargic today. VS WNL, BGL 82. Hx hb of COPD. Coronavirus screen: At this time, the client does not indicate any symptoms associated with coronavirus-19. Ebola Screen: No symptoms or risks identified at this time. Initial Sepsis Screen: Does the patient meet any 2 criteria? No. Patient's initial sepsis screen is negative. Does the patient have a suspected source of infection? No. Patient's initial sepsis screen is negative. Risk Assessment: Do you want to hurt yourself or someone else? Patient reports no desire to harm self or others. Onset of symptoms was April 25, 2020. 18:16 Method Of Arrival: EMS: [facility] 18:16 Acuity: NORY 3 hb Triage Assessment: 18:20 General: Appears in no apparent distress. Behavior is calm, cooperative. Pain: Pain hb currently is 4 out of 10 on a pain scale. EENT: No signs and/or symptoms were reported regarding the EENT system. Neuro: Level of Consciousness is obeys commands, lethargic, Oriented to person, place, time, situation. Cardiovascular: Capillary refill < 3 seconds Patient's skin is warm and dry. Respiratory: Respiratory effort is even, unlabored, Respiratory pattern is regular, symmetrical. GI: No signs and/or symptoms were reported involving the gastrointestinal system. : No signs and/or symptoms were reported regarding the genitourinary system. Derm: Skin is pink, warm \T\ dry. Musculoskeletal: Reports chronic back pain 11/17. Historical: - Allergies: 18:20 No Known Allergies; hb - Home Meds: 18:20 albuterol sulfate 90 mcg/actuation Inhl HFAA 1 puff every 6 hours [Active]; hb amitriptyline 100 mg Oral tab [Active]; amlodipine 2.5 mg tab 1 tab once daily [Active]; atorvastatin 10 mg Oral tab 1 tab once daily [Active]; Bactroban 2 % Topical crea [Active]; Betamethasone Valerate Topical [Active]; Breo Ellipta 200-25 mcg/dose inhalation dsdv 1 puff once daily [Active]; carvedilol 6.25 mg Oral tab 1 tab 2 times per day [Active]; cholecalciferol (vitamin D3) 400 unit Oral cap 2 tab daily [Active]; fentanyl 100 mcg/hr Topical pt72 1 patch every 48 hours [Active]; Flomax 0.4 mg Oral cp24 [Active]; gabapentin 300 mg Oral cap 1 cap daily [Active]; hydrocodone-acetaminophen 10-325 mg Oral tab 1 tab every 6 hours [Active]; lisinopril 40 mg Oral tab 1 tab once daily [Active]; nystatin 100,000 unit/mL Oral susp [Active]; omeprazole 20 mg Oral cpDR 1 cap once daily [Active]; primidone 250 mg Oral tab 1 tab daily [Active]; tizanidine 4 mg Oral tab 1 tab three times a day [Active]; topiramate 100 mg Oral tab 1 tab 2 times per day [Active]; urea Topical [Active]; Vitamin B-12 1,000 mcg Oral tab 1000 mcg daily [Active]; warfarin 8 mg Oral tab 1 tab once daily [Active]; - PMHx: 18:20 AAA; blood clot in right groin; Bypass Bilateral Legs; clotting disorder; COPD; CVA; hb Degenerative disc disease; Hypertension; Right Arm; TIA; - PSHx: 18:20 Right arm; Cholecystectomy; Hernia repair; hb - Immunization history:: Adult Immunizations up to date. - Social history:: Smoking status: Patient denies any tobacco usage or history of. Screenin:21 Abuse screen: Denies threats or abuse. Denies injuries from another. Nutritional hb screening: No deficits noted. Tuberculosis screening: No symptoms or risk factors identified. Fall Risk Total Da Silva Fall Scale indicates Low Risk Score (25-44 pts). Fall prevention measures have been instituted. Side Rails Up X 2 Frequent Obs/Assesments occuring As available Patient and Family Educated on Fall Prevention Program and strategies. Assessment: 18:21 General: see triage assessment. hb 19:00 Reassessment: Patient and/or family updated on plan of care and expected duration. Pain vc level reassessed. Patient denies pain at this time. 20:00 Reassessment: Patient and/or family updated on plan of care and expected duration. Pain vc level reassessed. Patient denies pain at this time. 20:30 Reassessment: Patient stated he had to urinate, urinal given, patient unable to urinate vc at this time. 21:30 Reassessment: Patient and/or family updated on plan of care and expected duration. Pain vc level reassessed. Patient is alert, oriented x 3, equal unlabored respirations, skin warm/dry/pink. Patient denies pain at this time. 22:00 Reassessment: Patient stood up beside bed, unable to provide urine sample, MD notified. vc Patient denies pain at this time. 23:00 Reassessment: Patient and/or family updated on plan of care and expected duration. Pain vc level reassessed. Patient is alert, oriented x 3, equal unlabored respirations, skin warm/dry/pink. Patient denies pain at this time. Vital Signs: 18:16 BP 180 / 83; Pulse 82; Resp 17; Temp 98.4; Pulse Ox 93% on R/A; Weight 79.38 kg; Height hb 5 ft. 7 in. (170.18 cm); Pain 4/10; 19:00 BP 183 / 105; Pulse 83; Resp 20; Pulse Ox 93% on R/A; vc 20:00 BP 181 / 96; Pulse 91; Resp 18; Pulse Ox 92% on R/A; vc 21:45 BP 116 / 93; Pulse 92; Resp 17; Pulse Ox 93% on R/A; vc 22:15 BP 168 / 89; Pulse 99; Resp 18; Pulse Ox 93% ; vc 18:16 Body Mass Index 27.41 (79.38 kg, 170.18 cm) hb ED Course: 18:16 Patient arrived in ED. hb 18:18 Triage completed. hb 18:20 Arm band placed on. hb 18:21 Patient has correct armband on for positive identification. Bed in low position. Call hb light in reach. Side rails up X2. 19:09 Yajaiar Amato, RN is Primary Nurse. vc 19:14 Manohar Scott MD is Attending Physician. tw4 20:00 XRAY Chest (1 view) In Process Unspecified. EDMS 20:00 No provider procedures requiring assistance completed. IV discontinued, intact, vc bleeding controlled, No redness/swelling at site. Pressure dressing applied. 20:06 Missed attempt(s): 22 gauge initial blood drawn. Bleeding controlled, band aid applied, oe catheter tip intact. Administered Medications: No medications were administered Outcome: 22:38 Discharge ordered by . elmo 23:36 Patient left the ED. akiko 23:36 Discharged to home via wheelchair, with family. vc 23:36 Condition: good 23:36 Discharge instructions given to patient, Instructed on discharge instructions, follow up and referral plans. Demonstrated understanding of instructions, follow-up care. Signatures: Dispatcher [employer] EDKandace Sutherland RN RN bb Martinez, Eric em1 Elizabeth Latham RN RN hb Espinosa, Orlando oe Wadley, Terrence, MD MD twYajaira Monge RN RN vc Corrections: (The following items were deleted from the chart) 20:33 20:16 Missed attempt(s): 22 gauge Bleeding controlled, band aid applied, catheter tip em1 intact. em1
--- NOTE | 2020-04-25 22:38 | EDPHYS ---
Physician Documentation [facility] Name: Pineda Mckeon Age: 75 yrs Sex: Male : 1945 Arrival Date: 04/25/2020 Time: 18:16 Bed 2 Private MD: ED Physician Manohar Scott HPI: 04/26 02:21 This 75 yrs old Male presents to ER via EMS with complaints of Lethargy. tw4 02:21 The patient presents with generalized weakness. Onset: The symptoms/episode tw4 began/occurred today. Context: occurred at home, occurred while the patient was. Modifying factors: The symptoms are alleviated by nothing, the symptoms are aggravated by nothing. Severity of symptoms: At their worst the symptoms were very mild in the emergency department the symptoms have resolved. The patient has not experienced similar symptoms in the past. Historical: - Allergies: 04/25 18:20 No Known Allergies; hb - Home Meds: 18:20 albuterol sulfate 90 mcg/actuation Inhl HFAA 1 puff every 6 hours [Active]; hb amitriptyline 100 mg Oral tab [Active]; amlodipine 2.5 mg tab 1 tab once daily [Active]; atorvastatin 10 mg Oral tab 1 tab once daily [Active]; Bactroban 2 % Topical crea [Active]; Betamethasone Valerate Topical [Active]; Breo Ellipta 200-25 mcg/dose inhalation dsdv 1 puff once daily [Active]; carvedilol 6.25 mg Oral tab 1 tab 2 times per day [Active]; cholecalciferol (vitamin D3) 400 unit Oral cap 2 tab daily [Active]; fentanyl 100 mcg/hr Topical pt72 1 patch every 48 hours [Active]; Flomax 0.4 mg Oral cp24 [Active]; gabapentin 300 mg Oral cap 1 cap daily [Active]; hydrocodone-acetaminophen 10-325 mg Oral tab 1 tab every 6 hours [Active]; lisinopril 40 mg Oral tab 1 tab once daily [Active]; nystatin 100,000 unit/mL Oral susp [Active]; omeprazole 20 mg Oral cpDR 1 cap once daily [Active]; primidone 250 mg Oral tab 1 tab daily [Active]; tizanidine 4 mg Oral tab 1 tab three times a day [Active]; topiramate 100 mg Oral tab 1 tab 2 times per day [Active]; urea Topical [Active]; Vitamin B-12 1,000 mcg Oral tab 1000 mcg daily [Active]; warfarin 8 mg Oral tab 1 tab once daily [Active]; - PMHx: 18:20 AAA; blood clot in right groin; Bypass Bilateral Legs; clotting disorder; COPD; CVA; hb Degenerative disc disease; Hypertension; Right Arm; TIA; - PSHx: 18:20 Right arm; Cholecystectomy; Hernia repair; hb - Immunization history:: Adult Immunizations up to date. - Social history:: Smoking status: Patient denies any tobacco usage or history of. ROS: 04/26 02:21 Constitutional: Negative for fever, chills, and weight loss, Eyes: Negative for injury, tw4 pain, redness, and discharge, Cardiovascular: Negative for chest pain, palpitations, and edema, Respiratory: Negative for shortness of breath, cough, wheezing, and pleuritic chest pain, Abdomen/GI: Negative for abdominal pain, nausea, vomiting, diarrhea, and constipation, Back: Negative for injury and pain, MS/Extremity: Negative for injury and deformity, Skin: Negative for injury, rash, and discoloration. Neuro: Positive for weakness. Exam: 02:21 Constitutional: This is a well developed, well nourished patient who is awake, alert, tw4 and in no acute distress. Head/Face: Normocephalic, atraumatic. Chest/axilla: Normal chest wall appearance and motion. Nontender with no deformity. No lesions are appreciated. Cardiovascular: Regular rate and rhythm with a normal S1 and S2. No gallops, murmurs, or rubs. Normal PMI, no JVD. No pulse deficits. Respiratory: Lungs have equal breath sounds bilaterally, clear to auscultation and percussion. No rales, rhonchi or wheezes noted. No increased work of breathing, no retractions or nasal flaring. Abdomen/GI: Soft, non-tender, with normal bowel sounds. No distension or tympany. No guarding or rebound. No evidence of tenderness throughout. Back: No spinal tenderness. No costovertebral tenderness. Full range of motion. MS/ Extremity: Pulses equal, no cyanosis. Neurovascular intact. Full, normal range of motion. Neuro: Awake and alert, GCS 15, oriented to person, place, time, and situation. Cranial nerves II-XII grossly intact. Motor strength 5/5 in all extremities. Sensory grossly intact. Cerebellar exam normal. Normal gait. Vital Signs: 04/25 18:16 BP 180 / 83; Pulse 82; Resp 17; Temp 98.4; Pulse Ox 93% on R/A; Weight 79.38 kg; Height hb 5 ft. 7 in. (170.18 cm); Pain 4/10; 19:00 BP 183 / 105; Pulse 83; Resp 20; Pulse Ox 93% on R/A; vc 20:00 BP 181 / 96; Pulse 91; Resp 18; Pulse Ox 92% on R/A; vc 21:45 BP 116 / 93; Pulse 92; Resp 17; Pulse Ox 93% on R/A; vc 22:15 BP 168 / 89; Pulse 99; Resp 18; Pulse Ox 93% ; vc 18:16 Body Mass Index 27.41 (79.38 kg, 170.18 cm) hb MDM: 20:38 Patient medically screened. tw4 04/26 02:21 Differential diagnosis: cardiac arrhythmia, CVA, generalized weakness, GI bleed, TIA. Data reviewed: vital signs, nurses notes. Data interpreted: Pulse oximetry: Interpretation: normal. Test interpretation: by ED physician or midlevel provider: ECG, plain radiologic studies. Counseling: I had a detailed discussion with the patient and/or guardian regarding: the historical points, exam findings, and any diagnostic results supporting the discharge/admit diagnosis, lab results, radiology results. Special discussion: I discussed with the patient/guardian in detail that at this point there is no indication for admission to the hospital. It is understood, however, that if the symptoms persist or worsen the patient needs to return immediately for re-evaluation. 04/25 19:15 Order name: Basic Metabolic Panel; Complete Time: 20:32 tw4 04/25 20:32 Interpretation: Normal except: NA 135; CL 97; GFR 60. 04/25 19:15 Order name: CBC with Diff; Complete Time: 20:32 tw4 04/25 20:33 Interpretation: Normal except: PLT 123; RDW 15.3; LYM% 9.2; DANIEL% 80.6. tw4 04/25 19:15 Order name: LFT's; Complete Time: 20:32 tw4 04/25 20:33 Interpretation: Normal except: ALK 227; BILID 0.4; GLOB 4.1; A/G 0.8. 04/25 19:15 Order name: Magnesium; Complete Time: 20:32 [facility] 04/25 20:33 Interpretation: Within normal limits: MG 1.9. 04/25 19:15 Order name: NT PRO-BNP; Complete Time: 20:32 [facility] 04/25 20:33 Interpretation: Within normal limits: NT PRO-BNP 620. 04/25 19:15 Order name: PT-INR; Complete Time: 20:32 04/25 20:33 Interpretation: Within normal limits: PT 20.4. 04/25 19:15 Order name: Troponin (emerg Dept Use Only); Complete Time: 20:32 [facility] 04/25 20:33 Interpretation: Within normal limits: TROPED < 0.02. 04/25 19:15 Order name: XRAY Chest (1 view); Complete Time: 20:32 [facility] 04/25 20:33 Interpretation: No acute disease. 04/25 19:15 Order name: EKG; Complete Time: 19:16 04/25 19:15 Order name: Cardiac monitoring; Complete Time: 20:16 [facility] 04/25 19:15 Order name: EKG - Nurse/Tech; Complete Time: 20:16 04/25 19:15 Order name: IV Saline Lock; Complete Time: 22:37 [facility] 04/25 19:15 Order name: Labs collected and sent; Complete Time: 21:44 [facility] 04/25 22:14 Order name: Urine Dipstick--Ancillary (enter results); Complete Time: 22:41 [facility] 04/25 22:41 Interpretation: USPGR >1.030; UBLD TRACE. 04/25 19:15 Order name: O2 Per Protocol; Complete Time: 22:37 [facility] 04/25 19:15 Order name: O2 Sat Monitoring; Complete Time: 21:45 04/25 20:58 Order name: Urine Dipstick-Ancillary (obtain specimen); Complete Time: 22:37 bb Administered Medications: No medications were administered Disposition: 04/25/20 22:38 Discharged to Home. Impression: Weakness. - Condition is Stable. - Discharge Instructions: Weakness, Fatigue. - Medication Reconciliation Form, Thank You Letter, Antibiotic Education, Prescription Opioid Use form. - Follow up: Private Physician; When: Upon discharge from the Emergency Department; Reason: Recheck today's complaints, Continuance of care, Re-evaluation by your physician. - Problem is new. - Symptoms have improved. Signatures: Dispatcher [employer] EDKandace Sutherland RN RN bb Baxter, Heather, RN RN hb Wadley, Terrence, MD MD tw4 Corrections: (The following items were deleted from the chart) 04/25 23:36 22:38 04/25/2020 22:38 Discharged to Home. Impression: Weakness. Condition is Stable. bb Forms are Medication Reconciliation Form, Thank You Letter, Antibiotic Education, Prescription Opioid Use. Follow up: Private Physician; When: Upon discharge from the Emergency Department; Reason: Recheck today's complaints, Continuance of care, Re-evaluation by your physician. Problem is new. Symptoms have improved. tw4
[2020-04-25 23:45] VITALS: TEMP 98.4
[2020-04-25 23:49] VITALS: O2SAT 93
[2020-04-25 23:50] VITALS: BP 168/89
== END 2020-04-25 23:36 | disposition home or self-care (01) ==
LOC: ER 18:15
DX: R53.1 Weakness (principal); I10 Essential (primary) hypertension; J44.9 Chronic obstructive pulmonary disease, unspecified; Z86.73 Personal history of transient ischemic attack (TIA), and cerebral infarction without residual deficits; Z79.01 Long term (current) use of anticoagulants
CPT/HCPCS: 36415; 71045; 80048; 80076; 81003; 83735; 83880; 84484; 85025; 85610; 93005; 99283

== ENCOUNTER 2020-10-03 08:50 | Observation (INO) | payer OTHER ==
--- OUTSIDE RECORDS SUMMARY | 2020-10-03 09:00 | XMS REPORT | Continuity of Care Document ---
:[address] [facility] t Address [address] [place] [address] Care Team Providers Name Role Phone De La Cruz Primary Care Physician Unavailable Modesto Elliott Attending Clinician ANSON Attending Clinician Unavailable Maritza TIM Attending Clinician Unavailable MELI HDZ Attending Clinician Unavailable Franklin Prather Attending Clinician ANSON Admitting Clinician Unavailable Maritza TIM Admitting Clinician Unavailable MELI HDZ Admitting Clinician Unavailable Ivan Salguero Admitting Clinician Problems Condition Condition Condition Status Onset Resolution Last Treating Co mments Source Name Details Category Date Date Treatment Clinician Date PAD PAD Disease Active 2018-08 [place] (periphera (periphera 0-30 Me thodi l artery l artery 00:00: st disease) disease) 00 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 Me thodi 00:00: st 00 PAD PAD Disease Active 2018-08 Last [place] (periphera (periphera 0-18 Assessmen Methodi l artery [...] graft explantat ion VTE VTE Disease Active [facility] (venous (venous 02-23 Assessmen Metho di thromboemb thromboemb 00:00: t & Plan: st olism) olism) 00 Plan: Bilateral LE vein mapping ZHANE (acute ZHANE (acute Disease Active [facility] kidney kidney 828 [facility] - injury) injury) 00:00: Medical [address] [place] [address] Abscess of Abscess of Disease Active [facility] right right 8-15 [facility] - groin groin 00:[facility]: Medical Center S/P TAVR S/P TAVR Disease [facility] (transcath 5-03 Karine kes - eter eter 00:00: Medical aortic aortic Center valve valve replacemen replacemen t) t) Aneurysm Aneurysm Disease [facility] of artery of artery 4-27 [facility] - of lower of lower 00:00: Medica l extremity extremity 00 Cent er SARAH Diagnosis Active 2015-082016-05-26 Memoria BILLING 0-15 12:09:00 l 5060 20:28: [place] SARAH 00 BILLING 5060 Active 05/24/2016 [facility] SDH Diagnosis Active 2015-082016-06-05 Mem oria 0-15 23:20:00 l SDH 00:00: [place] 00 Active 05/24/2016 [facility] Severe Severe Disease Active [facility] aortic aortic kes - stenosis stenosis Medica l Center Anemia Anemia Disease Active [facility] HTN HTN Disease Active [facility] St (hypertens (hypertens Karine kes - ion) ion) [facility] Hyperlipid Hyperlipid Disease Active [facility] emia emia [facility] COPD COPD Disease Active [facility] St (chronic (chronic [facility] - obstructiv obstructiv Me dical e e Center pulmonary pulmonary disease) disease) Seizures Seizures Disease Active [facility] S t [facility] Peripheral Peripheral Disease Active C [facility] vascular vascular kes - disease disease [facility] Blood Blood Disease Active Overview: [facility] St clotting clotting DVT [facility] - tendency tendency 09/2017 Medica l [place] 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 Me dical Center Atrial Atrial Disease Active [facility] St fibrillati fibrillati Karine kes - on on [facility] 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 [facility] - aneurysm aneurysm Medica l Center Abdominal Abdominal Disease Active [facility] St aortic aortic [facility] - aneurysm aneurysm Medica l (AAA) (AAA) Center DVT (deep DVT (deep Disease Active [facility] venous venous [facility] - thrombosis thrombosis Me dical ) ) Center Essential Problem Active 2020-06-21 Me moria tremor 23:02:20 l (disorder) [place] Essential tremor (disorder) 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/21/2020 [facility] Subdural Problem Active 2020-06-21 Mem oria hematoma 23:02:20 l (disorder) Subdural He rmann hematoma (disorder) 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/21/2020 [facility] Neuro,[facility] Coxitis Problem Active 2020-06-21 Micah taylor (disorder) 23:02:20 l Coxitis Jevon (disorder) 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/21/2020 [facility] Lumbar Problem Active 2020-06-21 Memor ia radiculopa 23:02:20 l thy Lumbar Jevon (disorder) radiculopa thy (disorder) 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/21/2020 [facility] NONTRAUMAT Diagnosis Active 2016-06-05 Memoria IC 23:20:00 l SUBDURAL Jevon HEMORRHAGE NONTRAUMAT , UNSPEC IC SUBDURAL HEMORRHAGE , UNSPEC Active [facility] Allergies, Adverse Reactions, Alerts Allergy Allergy Status Severity Reaction(s) Onset Inactive Treating Comm ents Source Name Type Date Date Clinician No Known No Known Active Memori a Medicati Medicati l on on Jevon Allergie Allergie s s Social History Social Habit Start Date Stop Date Quantity Comments Source Sex Assigned At [place] M ethodist History of tobacco Current smoker [facility] Jehovah'S Witness use Cigarettes smoked 2019-06-10 2019-06-10 Mumtaz Jehovah'S Witness current (pack per 00:00:00 00:00:00 day) - Reported Cigarette 2019-06-10 2019-06-10 Mumtaz Method ist pack-years 00:00:00 00:00:00 Tobacco use and 2019-06-10 2019-06-10 Never used Mumtaz Pettit ethodist exposure 00:00:00 00:00:00 Alcohol intake 2019-06-10 2019-06-10 Ex-drinker Mumtaz Peng thodist 00:00:00 00:00:00 (finding) Alcohol Comment 2019-05-27 2019-05-27 quit ~2004 Mumtaz Pettit ethodist 00:00:00 00:00:00 Tobacco Comment 2017-12-09 2017-12-09 quit 2010 AVTAR Britton kes - 00:00:00 00:00:00 [facility] Smoking Status Start Date Stop Date Source Social History 2019-12-15 15:54:57 2019-12-15 15:54:57 [facility] Medications Ordered Filled Start Stop Current Ordering Indication Dosage Frequency Signature Comments Components Source Medication Medication Date Date Medication? Clinician (SIG) Name Name gabapentin Yes 300 mg = 1 M emoria 300 MG Oral 5-07 cap, PO, l Capsule 15:51: BID, # 60 [place] nn 00 cap, 5 Refill(s), Pharmacy: [facility] gabapentin Yes See Memoria 300 MG Oral 4-03 Instructio l Capsule 14:22: ns, # 90 [place] 27 ea, Refill(s) 1, TAKE ONE (1) CAPSULE(S) BY MOUTH AT BEDTIME., Pharmacy: [facility] CHOLECALCIF 2018-08 Yes QD Take by Rodolfo concepcion MARLEE, 1-08 mouth Methodi VITAMIN D3, 15:48: daily. st ORAL 41 polyethylen 2018-08 Yes Q24H Take by Rodolfo rosalien e glycol 1-08 mouth Methodi (GLYCOLAX) 15:48: daily as st 17 41 needed. gram/dose powder albuterol 2018-08 Yes 1{puff} Inhale 1 [place] (PROAIR 1-08 puff. Methodi HFA,PROVENT 15:48: st [place] 41 HFA,VENTOLI N HFA) 90 mcg/actuati on inhaler clonIDINE 2019-1 Yes .1mg Take 0.1 [place] (CATAPRES) 1-08 mg by Methodi 0.1 MG 15:48: mouth as st tablet 41 needed. lisinopril 2018-08 Yes 40mg QD Take 40 mg [place] (PRINIVIL) 1-08 by mouth Metho di 40 mg 15:48: every st tablet 41 morning. topiramate 2018-08 Yes 100mg QD Take 100 [place] (TOPAMAX) 1-08 mg by Methodi 100 MG 15:48: mouth st tablet 41 every morning. warfarin 2019 Yes 7mg QD Take 7 mg [place] sodium 1-08 by mouth Methodi (WARFARIN 15:48: daily. st ORAL) 40 tiZANidine 2018-08 Yes 4mg Q.25D Take 4 mg [place] (ZANAFLEX) 0-05 by mouth 4 Met hodi 4 MG tablet 00:00: (four) st 00 times a day. amLODIPine 2019- Yes QD every [place] (NORVASC) 9-02 morning. Method i 2.5 mg 00:00: st tablet 00 gabapentin 2018- Yes QD nightly. Rodolfo wigginssasha (NEURONTIN) 822 Methodi 300 mg 00:00: st capsule 00 amitriptyli 2018- Yes QD nightly. Jose D guerra ne (ELAVIL) 7-04 Methodi 75 MG 00:00: st tablet 00 GABAPENTIN Yes = 1 cap, Mem oria CAP 300MG 5-28 PO, l 14:33: Bedtime, # Jevon 53 30 ea, Refill(s) 5, Pharmacy: [facility] gabapentin Yes 300 mg = 1 M emoria 300 MG Oral 1-08 cap, PO, l Capsule 23:41: Bedtime, # Herm francisco 00 30 cap, 3 Refill(s), Pharmacy: [facility] amitriptyli Yes 75 mg = 1 M emoria ne 75 mg 1-04 tab, PO, l oral tablet 22:41: Bedtime, # Jevon 00 30 tab, 0 Refill(s) amLODIPine 2019- Yes 5 mg = 1 Mem oria 5 mg oral 1-04 tab, PO, l tablet 22:41: Daily, # [place] 00 90 tab, 0 Refill(s) primidone Yes = 1 tab, Micah taylor 250 mg oral 1-04 PO, Daily, l tablet 22:35: # 30 tab, [place] 26 9 Refill(s), Pharmacy: [facility] topiramate Yes 100 mg = 1 M emoria 100 mg oral 1-04 tab, PO, l tablet 22:35: BID, # 60 [place] 00 tab, 9 Refill(s), Pharmacy: [facility] honey 100 % Yes 1{appli QD Apply [address] [facility] [facility] 8-21 cation} applicatio [facility] - 00:00: n Medical 00 topically Center daily. omeprazole Yes 20mg QD Take [address] (PRILOSEC) 8-20 by mouth [facility] - 20 MG 19:24: daily. Medical capsule 03 Center cholecalcif Yes 800U QD Take [address] marlee 8-20 Units by [facility] - (VITAMIN 19:24: mouth Medical D3) 400 03 daily. Center unit Tab tablet albuterol Yes 1{puff} Inhale [address] HFA 8-20 puff by [facility] - (VENTOLIN 19:24: mouth via Med ical HFA) 90 03 inhaler Center mcg/actuati every 6 on inhaler (six) hours as needed for Wheezing. atorvastati Yes 10mg QD Take [address] n (LIPITOR) 8-20 by mouth Luke s - 10 MG 19:24: daily. Medical tablet 03 Center lisinopril Yes 40mg QD Take [address] (PRINIVIL,Z 8-20 by mouth Luke s - ESTRIL) 40 19:24: daily. Medic al MG tablet 03 Center amitriptyli Yes 50mg QD Take [address] ne (ELAVIL) 8-20 by mouth Luke s - 50 MG 19:24: nightly. Medical tablet 03 Center fluticasone 0 Yes 1{puff} QD Inhale [address] -vilanterol 8-20 puff by [facility] - (BREO 19:24: mouth via Medical ELLIPTA) 03 inhaler Center 200-25 daily. mcg/dose DsDv tiZANidine Yes 4mg Take [address] (ZANAFLEX) 8-20 by mouth 3 Hasmukh es - 4 MG tablet 19:24: (three) Med ical 03 times Center daily as needed. primidone Yes 250mg QD Take [address] (MYSOLINE) 8-20 mg by [facility] - 250 MG 19:24: mouth Medical tablet 03 daily. [place] topiramate Yes 100mg Q.5D Take [address] (TOPAMAX) 8-20 mg by [facility] - 100 MG 19:24: mouth 2 Medical tablet 03 (two) Center times daily. warfarin Yes 9mg QD Take [address] (COUMADIN) 8-20 by mouth [facility] - 10 MG 19:24: daily. Medical tablet 03 Center tamsulosin Yes .4mg QD Take 1 [facility] (FLOMAX) 6-29 capsule [facility] - 0.4 mg Cp24 00:00: (0.4 mg Med ical 24 hr 00 total) by Center capsule mouth daily. betamethaso Yes Apply 1-[address] ne, 5-15 grams to [facility] - augmented, 00:00: the Medical (DIPROLENE) 00 affected Cent er 0.05 % area twice cream daily or as directed. Max 8g/day. HYDROcodone Yes [facility] -acetaminop 5-09 [facility] - hen (NORCO 00:00: Medical 10-325) 00 Center 10-325 mg per tablet fentaNYL Yes [facility] (DURAGESIC) 4-24 [facility] - 100 mcg/hr 00:00: Medical patch 00 Center primidone Yes 250mg QD Take 250 Rodolfo ston (MYSOLINE) 3-19 mg by Methodi 250 MG 00:00: mouth st tablet 00 nightly. HYDROcodone 0 Yes 4 times Rodolfo ston -acetaminop 3-07 daily as Meth jessica hen (NORCO) 00:00: needed. st 10-325 mg 00 per tablet fentaNYL 2017-0 Yes Every 48 [place] on (DURAGESIC) 2-19 hrs Methodi 100 mcg/hr 00:00: st 00 Warfarin 2015- Yes 5 mg = 1 Memor ia Sodium 5 MG 0-21 tab, PO, l Oral Tablet 14:27: Daily, INR [place] [Coumadin] 00 goal 2-3, # 30 tab, 0 Refill(s) tamsulosin 2015-08 Yes 0.8 mg = 2 M emoria 0.4 mg oral 0-21 cap, PO, l capsule 14:27: Daily, 0 [place] 00 Refill(s) Levetiracet 2015-08 Yes 1,500 mg = Memoria am 500 MG 0-21 3 tab, PO, l Oral Tablet 14:27: [id number], # Jevon 00 90 tab, 0 Refill(s) Docusate 2015-08 Yes 100 mg = 1 Mem oria Sodium 100 0-21 cap, PO, l MG Oral 14:27: Q12H, # 20 Herm francisco Capsule 00 cap, 0 Refill(s) phenol 2015-08 No Notes: Memoria 0-21 Chlorasept l 03:35: ic [place] (Same as: Chlorasept ic, Sore Throat [place]) WASTE: F/P - Black; E - Municipal Trash Bin Coumadin 2015-08 No 5 mg, 1 Memori a 0-21 tab, l 02:30: Route: PO, Drug form: TAB, ONCE, Dosing Weight 76.36, kg, Start date: 05/29/16 21:30:00 CDT, Stop date: 05/29/16 21:30:00 CDT Warfarin 2015-08 No 5 mg, 1 Memori a 0-20 tab, l 22:00: Route: PO, Drug form: TAB, Q5PM, Dosing Weight 76.36, kg, Start date: 05/29/16 17:00:00 CDT, Duration: 1 doses or times, Stop date: 05/29/16 17:00:00 CDT Labetalol 2015-08 No Notes: Memori a 0-20 With food. l 14:44: (Same as:Trandat e, Normodyne) Keppra 2015-08 No Notes: Memoria 0-20 (Same l 11:00: as:Kepp) Coumadin 2015-08 No Notes: Memoria 0-19 Nurse [...] Memoria 0-19 Route: PO, l 14:00: Daily, Jevon 00 Dosing Weight 76.36, kg, Start date: 05/28/16 9:00:00 CDT, Duration: 30 day, Stop date: 06/26/16 9:00:00 DIE TESTER Remeron 2015-08 No Notes: Memoria 0-19 (Same l 02:00: as:Remeron Jevon 00 ) ibuprofen 2015-08 No Notes: Memori a 100 mg/5 mL 0-18 (Same as: l oral 20:00: Motrin [place] suspension 00 Children's , Advil Children's ) Take with food. Duragesic-1 2015-08 No Notes: Micah taylor 00 0-18 (Same as: l 18:00: Duragesic) [place] 00 Check for product integrity. Apply to intact skin "Remove old patch before applicatio n of new patch" Ibuprofen 2015-08 No Notes: Memori a 0-18 (Same as: l 17:00: Motrin [place] 00 Children's , Advil Children's ) Take with food. 72 HR 2015-08 No 1 patch, Memoria Fentanyl 0-18 Route: l 0.1 MG/HR 14:00: TOP, [place] Transdermal 00 Dosing Patch Weight 76.36, kg, Daily, Start date: 05/27/16 9:00:00 CDT, Duration: 30 day, Stop date: 06/25/16 9:00:00 DIE TESTER Lisinopril 2015-08 No 40 mg, Memor ia 0-18 Route: PO, l 14:00: Drug form: [place] 00 TAB, Daily, Dosing Weight 76.36, kg, Start date: 05/27/16 9:00:00 CDT, Duration: 30 day, Stop date: 06/25/16 9:00:00 DIE TESTER Miralax 2015-08 No Notes: Memoria 0-18 Dissolve l 14:00: in 8 oz of [place] 00 water or juice. (Same as: Miralax) remove 2015-08 No Notes: Memoria patch 0-18 Remove old l 14:00: patch [place] 00 before applicatio n of new patch. WASTE: F/P - P Waste Black; E - P Waste Black Keppra 2015-08 No Notes: Memoria 0-18 Same as l 12:25: Keppra [place] 00 Mix with 100 mL NS, LR or D5W MEDICATION WASTE Product Size: 500 mg Product Wasted: ___ mg Keppra 2015-08 No Notes: Memoria 0-18 Same as l 09:00: Keppra J[place]on 00 Mix with 100 mL NS, LR or D5W MEDICATION WASTE Product Size: 500 mg Product Wasted: ___ mg Hydralazine 2015-08 No Notes: Micah taylor 0-18 (Same as: l 08:23: Apresoline [place] 00 ) Push over 5 minutes heparin 2015-08 No Notes: Memoria 0-18 porcine l 05:00: heparin Jevon 00 Fentanyl 2015-08 No Notes: Memoria 0-18 (Same as: l 04:47: Sublimaze) [place] Preservat emanuel free. Lisinopril 2015-08 No Notes: Memor ia 0-18 (Same as: l 01:00: Prinivil, Jevon 00 Zestril) Fentanyl 2015-08 No Notes: Memoria 0-18 (Same as: l 00:51: Sublimaze) Jevon 00 Preservat emanuel free. pneumococca 2015-08 No Notes: Micah taylor l 13-valent 0-18 Lightly l vaccine 00:50: roll vial [place] nn 00 (DO NOT SHAKE) before administra tion. (Same as: Prevnar 13) Albuterol 2015-08 No Notes: Memori a 0.833 MG/ML 0-17 (Same as: l / 21:26: Duoneb) Jevon Ipratropium 00 [place] 0.167 MG/ML Inhalant Solution [DuoNeb] mirtazapine 2015-08 Yes 7.5 mg = 1 Memoria 7.5 mg oral 0-17 tab, PO, l tablet 19:52: Bedtime, # [place] nn 00 30 tab, 1 Refill(s) Eszopiclone 2016-1 Yes 1 mg = 1 Me moria 1 MG Oral 0-17 tab, PO, l Tablet 19:52: Bedtime, Jevon [Lunesta] 00 PRN for insomnia, # 30 tab, 0 Refill(s) Trazodone 2015-08 No 50 mg = 1 Mem oria Hydrochlori 0-17 tab, PO, l de 50 MG 19:52: TID, # 90 Herm francisco Oral Tablet 00 tab, 0 Refill(s) Acetaminoph 2015-08 Yes 1 tab, PO, Memoria en 325 MG / 0-17 TID, PRN l Hydrocodone 19:52: Pain, # 60 [place] Bitartrate 00 tab, 0 10 MG Oral Refill(s) Tablet [[place] 10/325] lisinopril 2015-08 Yes 40 mg = [...] Q48H, l 0.1 MG/HR 19:52: # 15 [place] Transdermal 00 patch, 0 Patch Refill(s) [Duragesic] [...] [place] 00 tab, 0 Refill(s) tizanidine 2016-1 Yes 8 mg = 2 Mem oria [...] 200 ACTUAT 2015-08 Yes 2 puff, Micah taylor Albuterol 0-17 INHALER, l 0.09 19:52: Q6H, PRN [place] MG/ACTUAT 00 for Metered wheezing, Dose # 8.5 gm, Inhaler 0 [ProAir Refill(s) HFA] Keppra 2015-08 No Notes: Memoria 0-17 Same as l 17:59: Keppra Jevon 00 Mix with 100 mL NS, LR or D5W MEDICATION WASTE Product Size: 500 mg Product Wasted: ___ mg Hydralazine 2015-08 No Notes: Micah taylor 0-17 (Same as: l 15:14: Apresoline [place] 00 ) Push over 5 minutes Nicotine 2015-08 No Notes: Memoria 0-17 (Same as: l 14:00: Habitrol) Jevon 00 "Remove old patch before applicatio n of new patch" WASTE: F/P - P Waste Black; E - P Waste Black [place] + 2015-08 No Notes: Memoria sodium 0-17 Same as l chloride 06:57: Keppra Jevon 0.9% INJ 00 Mix with 100 mL 100 mL NS, LR or D5W MEDICATION WASTE Product Size: 500 mg Product Wasted: __0_ mg [place] 2015-08 No 500 mg, Memoria 0-17 Route: l 06:28: IVPB, Jevon 00 Q24H, Dosing Weight 76.36, kg, Priority: STAT, Start date: 05/26/16 1:28:00 CDT, Duration: 30 day, Stop date: 06/24/16 1:28:00 DIE TESTER sodium 2015-08 No 1,000 mL, Memori a chloride 0-17 Rate: 50 l 0.9% 1000 02:30: ml/hr, [place] ml INJ 00 Infuse 1,000 mL over: 20 hr, Route: IV, Dosing Weight 76.36 kg, Total Volume: 1,000, Start date: 05/25/16 21:30:00 CDT, Duration: 30 day, Stop date: 06/24/16 21:29:00 DIE TESTER Acetaminoph 2015-08 No Notes: Micah taylor en 325 MG / 0-17 (Same as: l Hydrocodone 01:00: [place] nn Bitartrate 00 325/5) Do 5 MG Oral not exceed Tablet 4gm/day of [[place] acetaminop 5/325] hen. Tylenol 2015-08 No Notes: Do Memor ia 0-17 not exceed l 00:38: 4 gm/day. Jevon 00 (Same as: Tylenol) Albuterol 2015-08 No Notes: SEE Me moria 0.83 MG/ML 0-16 RT l Inhalant 21:04: DOCUMENTAT Her mackenzie Solution 00 ION (Same as: Proventil) Ancef + 2015-08 No Notes: Memoria sodium 0-16 (Same As: l chloride 21:00: Ancef, [place] 0.9% INJ 00 Kefzol) 100 mL MEDICATION WASTE Product Size: 1000 mg Product Wasted: ___ mg Labetalol 2015-08 No 10 mg, 2 Micah taylor 0-16 mL, Route: l 20:57: IVP, Drug form: INJ, Q5Min, Dosing Weight 76.36, kg, PRN Elevated BP, Start date: 05/25/16 15:57:00 CDT, Duration: 5 doses or times, Stop date: 05/26/16 0:00:00 CDT Metoprolol 2015-08 No Notes: Memor ia 0-16 (Same as: l 20:57: Lopressor) Jevon 00 Push over 2 minutes Sodium 2015-08 No 1,000 mL, Memori a Chloride 0-16 Rate: 125 l 0.154 20:57: ml/hr, Jevon MEQ/ML 00 Infuse Injectable over: 8 Solution hr, Route: IV, Dosing Weight 76.36 kg, Total Volume: 1,000, Start date: 05/25/16 15:57:00 CDT, Duration: 30 day, Stop date: 06/24/16 15:56:00 DIE TESTER Ondansetron 2015-08 No Notes: Micah taylor 0-16 (Same as: l 20:57: Zofran) MEDICATION WASTE Product Size: 4 mg Product Wasted: ___ mg Hydromorpho 2015-08 No Notes: Micah taylor ne 0-16 (Same as: l 20:57: Dilaudid) Naloxone 2015-08 No Notes: Memoria 0-16 Same as l 20:57: Narcan Flumazenil 2015-08 No Notes: Memor ia 0-16 (Same as: l 20:57: Romazicon) Ancef 2015-08 No 2 gm, Memoria 0-16 Route: l 19:15: IVPB, ONCE, Dosing Weight 76.36, kg, Start date: 05/25/16 14:15:00 CDT, Duration: 1 doses or times, Stop date: 05/25/16 14:15:00 CDT Streptococc 2015-08 No Notes: Micah taylor us 0-16 Lightly l pneumoniae 14:00: roll vial He rmann serotype 1 00 (DO NOT capsular SHAKE) antigen before diphtheria administra [id number] tion. protein (Same as: conjugate Prevnar vaccine / 13) Streptococc us pneumoniae serotype 14 capsular antigen diphtheria [id number] protein conjugate vaccine / Streptococc us pneumoniae serotype 18C capsular antigen d Vitamin K1 2015-08 No Notes: Memor ia + sodium 0-16 (Same as: l chloride 14:00: Aqua-Mephy Her mackenzie 0.9% INJ 50 00 ton, mL Vitamin K) MEDICATION WASTE Product Size: 10 mg Product Wasted: ___ mg Saline 2015-08 No Notes: Memoria Flush 0.9% 0-16 (Same as: l 14:00: BD Posiflush) Levetiracet 2015-08 No Notes: Micah taylor am 0-16 (Same l 14:00: as:Keppra) Docusate 2015-08 No Notes: Memoria 0-16 (Same as: l 14:00: Colace) [place] 00 (Do Not Crush) sennosides, 2015-08 No Notes: Micah taylor [facility] 0-16 (Same as: l 14:00: Senokot) [place] 00 Flomax 2015-08 No Notes: Memoria 0-16 (Same As: l 11:11: Flomax) Jevon 00 "Do Not Crush" Dexamethaso 2015-08 No Notes: Micah taylor ne 0-16 Concentrat l 10:39: ion: [place] 00 4mg/ml Mannitol 2015-08 No Notes: Memoria 0-16 (Same as: l 10:16: Osmitrol) [place] 00 Infuse through 5 micron or smaller [...] Oxide 0-16 (Same as: l 04:11: Mag-Ox [place] 00 400) Magnesium oxide [id number] g elemental magnesium Dose=____m g magnesium oxide (___mg elemental magnesium) Magnesium 2015-08 No Notes: Memori a Sulfate 0-16 WASTE: F/P l 04:11: - Sink; E - Municipal Trash Bin Calcium 2015-08 No Notes: Memoria Carbonate 0-16 (Same As: l 500 MG 04:11: Tums) Jevon Chewable 00 Calcium Tablet Carbonate 500 mg = 200 mg elemental calcium Dose = mg calcium carbonate ( mg elemental calcium) Calcium 2015-08 No Notes: Memoria Gluconate 0-16 WASTE: F/P l 04:11: - Sink; E - Municipal Trash Bin potassium 2015-08 No Notes: Memori a phosphate-s 0-16 (Same as: l odium 04:11: Phos-NaK) [place] phosphate 00 Each 1.5 250 mg-280 gm pkt has mg-160 mg 250mg oral powder phosphorou for s. Mix reconstitut w/2.5oz ion water and stir. potassium 2015-08 No Notes: Memori a phosphate + 0-16 (Same as: l sodium 04:11: K [place] chloride 00 Phosphate. 0.9% INJ ) 1 mMol 250 mL phoshate has 1.47 mEq potassium Infuse over 4 hours sodium 2015-08 No 45 mmol, Memoria phosphate + 0-16 15 mL, l sodium 04:11: Route: Jevon chloride 00 IVPB, PRN, 0.9% INJ Dosing 250 mL Weight 76.364, kg, PRN Abnormal Lab Result, Start date: 05/24/16 23:11:00 CDT, Duration: 30 day, Stop date: 06/23/16 22:10:00 DIE TESTER, FOR ICU USE ONLY potassium 2015-08 No Notes: Memori a chloride 0-16 (Same as: l 04:11: KCL) [place] 00 Infuse over 2 hours. iodixanol 2015-08 No 60 mL, Memori a 0-16 Route: l 03:50: IVP, Drug [place] 00 Form: SOLN, Dosing Weight 76.364, kg, [...] Syringe 0-16 12.5 mL, l 03:17: Route: Jevon 00 IVP, Drug Form: INJ, Dosing Weight 76.364, kg, PRN, PRN Abnormal Lab Result, Start date: 05/24/16 22:17:00 CDT, Duration: 30 day, Stop date: 06/23/16 21:16:00 DIE TESTER Saline 2015-08 No Notes: Memoria Flush 0.9% 0-16 (Same as: l 03:17: BD [place] 00 Posiflush) Bisacodyl 2015-08 No Notes: Memori a 0-16 (Same As: l 03:17: Dulcolax, [place] 00 Bisco-Lax) Ondansetron 2015-08 No Notes: Micah taylor 0-16 (Same as: l 03:17: Zofran) Jevon 00 MEDICATION WASTE Product Size: 4 mg Product Wasted: _0__ mg Acetaminoph 2015-08 No Notes: Do M emoria en 325 MG / 0-16 not exceed l Hydrocodone 03:17: 4gm/day of Jevon Bitartrate 00 acetaminop 10 MG Oral hen. Tablet (Same as: [place] 325/10) Levetiracet 2015-08 No Notes: Micah taylor am 0-16 Same as l 03:17: Keppra Jevon 00 Mix with 100 mL NS, LR or D5W MEDICATION WASTE Product Size: 500 mg Product Wasted: __0_ mg Sodium 2015-08 No 1,000 mL, Memori a Chloride 0-16 Rate: 75 l 0.154 03:17: ml/hr, MEQ/ML 00 Infuse Injectable over: 13.3 Solution hr, Route: IV, Dosing Weight 76.364 kg, Total Volume: 1,000, Start date: 05/24/16 22:17:00 CDT, Duration: 30 day, Stop date: 06/23/16 22:16:00 DIE TESTER Acetaminoph 2015-08 No Notes: Micah taylor en 325 MG / 0-16 (Same as: l Hydrocodone 03:17: [place] Sask[place] nn Bitartrate 00 325/5) Do 5 MG Oral not exceed Tablet 4gm/day of acetaminop hen. Saline 2015-08 No Notes: Memoria Flush 0.9% 0-16 (Same as: l 01:56: BD Jevon 00 Posiflush) Amlodipine Amlodipine Yes Home [address] [facility] [address] Besylate Besylate [facility] [place] [facility] Amlodipine Amlodipine Yes Home TAKE ONE [facility] Besylate Besylate [place] (1) [facility] TABLET(S) Memoria BY MOUTH l TWICE A Outpati DAY. ent Clinics Atorvastati Atorvastati Yes Home TAKE ONE [facility] n Calcium n Calcium [place] (1) [facility] - TABLET(S) Memoria BY MOUTH l NIGHTLY. [facility] Clin[facility] Clonidine Clonidine Yes Home [address] [facility] HCl HCl [place] at bedtime [facility] Lisinopril Lisinopril Yes Home [address] [facility] Warfarin Warfarin Yes Home 1 tablet ( [facility] Sodium Sodium [place] 4 mg + 3 [facility] Primidone Primidone Yes Home [address] [facility] [place] [facility] Ferrous Ferrous Yes Home TAKE ONE [facility] S[facility] [place] [facility] ([facility] TABLET(S[facility] BY MOUTH l TWICE A Outpsychiatric DAY WITH ent MEALS. Clinics Amitriptyli Amitriptyli Yes Home [address] [facility] ne HCl ne HCl [facility] [place] [facility] Topamax Topamax Yes Home [address] [facility] Warfarin Warfarin Yes Home [address] Sodium Sodium [place] [facility] Vitamin D3 Vitamin D3 Yes Home [address] [facility] Zanaflex Zanaflex Yes Home [address] [facility] [place] [facility] Lipitor Lipitor Yes Home [address] [facility]ics Breo Breo Yes Home [address] [facility] Ellipta Ellipta [facility] Aspir-81 Aspir-81 Yes Home [address] [facility] ProAir HFA ProAir HFA Yes Home [address] [facility] [place] [facility] Prilosec Prilosec Yes Home [address] [facility] ent Clinics Immunizations Ordered Immunization Filled Immunization Date Status Commen ts Source Name Name FLUZONE HIGH-DOSE PF 2019-06-17 Completed [place] 00:[place]:00 [facility] Vital Signs Vital Name Observation Time Observation Value Comments Source Heart Rate 2018-08-13 22:09:00 [facility] Respitory Rate 2018-08-13 22:09:00 [facility] Systolic (mm Hg) 2018-08-13 22:09:00 Micah rial Jevon Diastolic (mm Hg) 2018-08-13 22:09:00 Mem orial Jevon BMI Calculated 2018-08-13 22:09:00 [facility] Height 2018-08-13 22:09:00 160.02 cm [facility] Weight 2018-08-13 22:09:00 [facility] Systolic (mm Hg) 2016-05-30 16:34:00 Micah rial Jevon Diastolic (mm Hg) 2016-05-30 16:34:00 Mem o[facility]evon Temperature Oral (F) 2016-05-30 16:34:00 97.7 F [facility] Heart Rate 2016-05-30 16:34:00 [facility] Respitory Rate 2016-05-30 16:34:00 [facility] Respitory Rate 2016-05-30 13:20:00 [facility] Heart Rate 2016-05-30 13:20:00 [facility] Systolic (mm Hg) 2016-05-30 13:20:00 Micah rial Jevon Diastolic (mm Hg) 2016-05-30 13:20:00 Mem orial [place] Temperature Oral (F) 2016-05-30 13:20:00 97.8 F [facility] Systolic (mm Hg) 2016-05-30 08:32:00 Micah rial Jevon Diastolic (mm Hg) 2016-05-30 08:32:00 Mem orial Jevon Temperature Oral (F) 2016-05-30 08:32:00 98.1 F [facility] Respitory Rate 2016-05-30 08:32:00 [facility] [place] Heart Rate 2016-05-30 08:32:00 [facility] BMI Calculated 2016-05-25 07:10:00 [facility] Weight 2016-05-25 07:10:00 [facility] Height 2016-05-25 07:10:00 172.72 cm [facility] Weight 2016-05-25 01:40:00 [facility] BMI Calculated 2016-05-25 01:40:00 [facility] Height 2016-05-25 01:40:00 170.18 cm [facility] Procedures Procedure Date / Time Performed Performing Clinician Sourc e Abdominal aortic aneurysm [facility] stenting<sup>1</sup> Bypass / graft of vein [facility] Hernia repair [facility] Plan of Care Planned Activity Planned Date Details Comments Source Future Scheduled 2020-04-10 INFLUENZA VACCINE (#1) [facility]00 [code = INFLUENZA Medical Ce nter VACCINE (#1)] Future Scheduled 2020-03-10 INFLUENZA VACCINE [place] [facility] Test 00:00:00 [code = INFLUENZA VACCINE] Future Scheduled 2008-02-22 65+ PNEUMOCOCCAL [place] [facility] Test 00:00:00 VACCINE (2 of 2 - PPSV23) [code = 65+ PNEUMOCOCCAL VACCINE (2 of 2 - PPSV23)] Future Scheduled 2008-02-22 PNEUMOCOCCAL 65+ [facility] Test 00:00:00 (2 of 2 - PPSV23) Medical Ce nter [code = PNEUMOCOCCAL 65+ YRS (2 of 2 - PPSV23)] Future Scheduled 2005-05-[address] [facility] - Test 00:00:00 WELLNESS (YEAR 2 or [facility] FIRST YEAR if no IPPE) [code = MEDICARE ANNUAL WELLNESS (YEAR 2 or FIRST YEAR if no IPPE)] Future Scheduled 1993 SHINGLES VACCINES (#1) [place] [facility] Test 00:00:00 [code = SHINGLES VACCINES (#1)] Future Scheduled 1961 Hepatitis C screening [place] [facility] Test 00:00:00 (procedure) [code = 956762170] Future Scheduled 1959 COVID-19 VACCINE (1 of [place] [facility] Test 00:00:00 2) [code = COVID-19 VACCINE (1 of 2)] Encounters Start End Encounter Admission Attending Care Care Encounter Source Date/Time Date/Time Type Type Clinicians Facility Department ID 2020-07-03 2020-07-03 Outpatient [facility] [id number] [facility] 2020-06-19 2020-06-19 Outpatient QUINTON Elliott [id number] 14:00:00 14:00:00 James Salvador 2020-06-19 2020-06-19 [facility] [id number] 14:00:00 14:00:00 James 08 [place] 2020-06-07 2020-06-07 [facility] [id number]00 [facility] Outpati ent Clinics 2020-05-30 2020-05-30 [facility] [id number] [facility] 2020-03-05 2020-03-05 [facility] [id number] [facility] 13:30:00 13:30:00 t [facility] Outpati ent Clinics 2020-01-26 2020-01-26 [facility] [id number] [address] 11:08:00 11:08:00 t [place] [facility] Outpati ent Clinics 2019-12-27 2019-12-27 [facility] [id number] [address] 14:45:00 14:45:00 [facility] [place] [facility] Outpati ent Clinics 2019-12-15 2019-12-15 Outpatient Earl, MISCHER MHMISCHER [id number] 10:45:00 23:59:59 James 06 [place] 2019-11-15 2019-11-15 Outpatient NELLY ElliottMISCHER MHMISCHER [id number] 09:15:00 09:15:00 James 05 [place] 2019-09-16 2019-09-16 [facility] [id number] [address] 14:58:00 14:58:00 t [place] [facility] Outpati ent Clinics 2019-09-14 2019-09-14 [facility] [id number] [facility] 14:45:00 14:45:00 t [place] [facility] Outpati ent Clinics 2019-08-31 2019-08-31 Outpatient Ealr, MISCHER MHMISCHER [id number] 13:45:00 13:45:00 James 04 [place] 2019-08-19 2019-08-19 [facility] [id number] [address] 14:49:00 14:49:00 t CHORDke s - Drive [facility] Medicine Outpati ent Clinics 2019-07-20 2019-07-20 [facility] [id number] 15:09:00 15:09:00 t Adrian Lymbix s - Drive [facility] Medicine Outpati ent Clinics 2019-06-30 2019-06-30 [facility] [id number] 08:49:00 08:49:00 t Adrian Lymbix s - Drive [facility] Medicine Outpati ent Clinics 2019-06-27 2019-06-27 [facility] [id number] 15:00:00 15:00:00 t ScaleMP s - Paralloc[employer] [facility] Medicine Outpati ent Clinics 2019-06-08 2019-06-17 Inpatient [facility] [id number] [place] [address] 00:00:00 00:00:00 DENZEL Ibrahim1 [facility] 2019-05-13 2019-05-13 Outpatient [facility] [id number] 15:00:00 15:00:00 James Ariel Salvador 2019-03-15 2019-03-15 [facility] [id number] 16:15:00 16:15:00 t ScaleMP s - Parallocity [facility] Medicine Outpati ent Clinics 2019-02-22 2019-02-22 [facility] [id number] [address] 10:56:00 10:56:00 t ScaleMP s - Parallocity [facility] Medicine Outpati ent Clinics 2019-01-21 2019-01-21 [facility] [id number] [address] 16:26:00 16:26:00 t ScaleMP s - Drive [facility] Medicine Outpati ent Clinics 2018-12-07 2018-12-07 [facility] [id number] 14:15:00 14:15:00 t Specialty/U Karine kes - Specialty rology [facility] a /Urology Clinic l Clinic Outpati ent Clinics 2018-12-01 2018-12-01 [facility] [id number] [address] 14:15:00 14:15:00 t ScaleMP s - Drive [facility] Medicine Outpati ent Clinics 2018-11-10 2018-11-10 [facility] [id number] 15:15:00 15:15:00 t Adrian [employer] s - [employer] [facility] Medicine Outpati ent Clinics 2018-08-17 2018-08-18 Outpatient MHMISCHER MHMISCHER [id number] 15:18:00 23:59:59 02 2018-08-13 2018-08-13 Outpatient Earl [facility] [id number] 15:45:00 23:59:59 James Александр Salvador 2018-08-12 2018-08-12 [facility] [id number] 16:00:00 16:00:00 t Adrian [employer]ymb[employer] s - [employer] [facility] Medicine Outpati ent Clinics 2018-05-19 2018-05-19 [facility] [id number] 08:50:00 08:50:00 t Adrian Lymb[employer] s - [employer] [facility] Medicine Outpati ent Clinics 2018-05-11 2018-05-11 [facility] [id number] 09:14:00 09:14:00 t Adrian [employer]ymb[employer] s - [employer] [facility] Medicine Outpati ent Clinics 2018-04-07 2018-04-07 [facility] [id number] 15:15:00 15:15:00 t Adrian Lymb[employer] s - [employer] [facility] Medicine Outpati ent Clinics 2018-04-05 2018-04-05 [facility] [id number] 10:00:00 10:00:00 t Adrian Lymb[employer] s - Paralloc[employer] [facility] Medicine Outpati ent Clinics 2018-03-31 2018-03-31 [facility] [id number] 09:00:00 09:00:00 t Adrian Lymbix s - Drive [facility] Medicine Outpati ent Clinics 2018-03-23 2018-03-23 [facility] [id number] 09:00:00 09:00:00 t Adrian Lymbix s - Drive [facility] Medicine Outpati ent Clinics 2018-03-04 2018-03-04 [facility] [id number] 16:21:00 16:21:[address] Luke s - Drive [facility] Medicine Outpati ent Clinics 2018-02-24 2018-02-24 [facility] [id number] 16:02:00 16:02:[address] Luke s - Drive [facility] Medicine Outpati ent Clinics 2018-02-24 2018-02-24 [facility] [id number] [address] 14:30:00 14:30:[address] Luke s - Drive [facility] Medicine Outpati ent Clinics 2018-02-15 2018-02-15 [facility] [id number] 16:32:00 16:32:[address] Luke s - Drive [facility] Medicine Outpati ent Clinics 2018-01-01 2018-01-01 [facility] [id number] 10:03:00 10:03:[address] Luke s - Drive [facility] l Medicine Outpati ent Clinics 2017-12-30 2017-12-30 [facility] [id number] [address] 16:56:00 16:56:[address] Luke s - Drive [facility] Medicine l Medicine Outpati ent Clinics 2017-12-30 2017-12-30 [facility] [id number] [address] 14:30:00 14:30:[address] Luke s - Drive [facility] l Medicine Outpati ent Clinics 2017-12-24 2017-12-24 [facility] [id number] 09:12:00 09:12:[address] Luke s - Drive [facility] l Medicine Outpati ent Clinics 2017-12-22 2017-12-22 [facility] [id number] 08:18:00 08:18:[address] Luke s - Drive [facility] Medicine l Medicine Outpati ent Clinics 2017-12-10 2017-12-10 [facility] [id number] 13:37:00 13:37:[address] Luke s - Drive [facility] Medicine Outpati ent Clinics 2017-12-03 2017-12-03 [facility] [id number] 15:29:00 15:29:00 t Adrian [employer] s - Drive [facility] Medicine Outpati ent Clinics 2017-12-01 2017-12-01 [facility] [id number] 10:54:00 10:54:00 t Adrian [employer] Luke s - Drive [facility] Medicine Outpati ent Clinics 2017-11-13 2017-11-13 [facility] [id number] 12:22:00 12:22:00 t Adrian Adrian [employer] s - Drive [facility] Medicine Outpati ent Clinics 2017-11-13 2017-11-13 [facility] [id number] 09:51:00 09:51:00 t Adrian Lymb[employer] s - Drive [facility] Medicine Outpati ent Clinics 2017-11-10 2017-11-10 [facility] [id number] 15:34:00 15:34:00 t Adrian Lymbix s - Drive [facility] Medicine Outpati ent Clinics 2017-11-04 2017-11-04 [facility] [id number] 15:30:00 15:30:00 t Adrian Lymbix s - Drive [facility] Medicine Outpati ent Clinics 2016-05-24 2016-05-30 Outpatient [facility] [id number] 20:36:00 11:59:00 Abraham Reid 67 Results Test Description Test Time Test Comments Results Result Comments Source AFB CULTURE + SMEAR 2018-05-02 20:50:00 Test Item Value Reference Range Interpretation Comme nts CULTURE (BEAKER) (test code = 1095) No acid-fast bacilli isolated i n 42 days AFB SMEAR (BEAKER) (test code = 994) No acid fast bacilli seen AFB CULTURE + [id number] 20:50:00 Test Item Value Reference Range Interpretation Comments CULTURE (BEAKER) (test No acid-fast bacilli code = 1095) isolated in 42 days AFB SMEAR (BEAKER) No acid fast bacilli (test code = 994) seen FUNGUS CULTURE + [id number] 10:14:00 Test Item Value Reference Range Interpretation Comments CULTURE (BEAKER) (test No fungus isolated in code = 1095) 28 days FUNGUS SMEAR (BEAKER) No fungi seen (test code = 1406) FUNGUS CULTURE + [id number] 10:14:00 Test Item Value Reference Range Interpretation Comments CULTURE (BEAKER) (test No fungus isolated in code = 1095) 28 days FUNGUS SMEAR (BEAKER) No fungi seen (test code = 1406) VANCOMYCIN LEVEL, [id number] 05:33:00 Test Item Value Reference Range Interpretation Comments VANCOMYCIN RANDOM (BEAKER) (test 16.9 ug/mL code = 523) Reference Range: No NormalsBASIC METABOLIC [id number] 05:29:00 Test Item Value Reference Range Interpretation [...] 697) EGFR (BEAKER) (test 80 mL/min/1.73 ESTIMA MONROE GFR IS code = 1092) sq m NOT ACCURATE CREATININE CLEARANCE IN PREDICTING GLOMERULAR FILTRATION RATE . ESTIMATED GFR I S NOT APPLICABLE FOR DIALYSIS PATIEN TS. PROTHROMBIN [id number] 05:21:00 Test Item Value Reference Range Interpretation [...] 697) EGFR (BEAKER) (test 71 mL/min/1.73 ESTIMA MONROE GFR IS code = 1092) sq m NOT ACCURATE CREATININE CLEARANCE IN PREDICTING GLOMERULAR FILTRATION RATE . ESTIMATED GFR I S NOT APPLICABLE FOR DIALYSIS PATIEN TS. ANAEROBIC [id number] 08:59:00 Test Item Value Reference Range Interpretation Comments CULTURE (BEAKER) (test No anaerobes isolated code = 1095) ANAEROBIC [id number] 08:58:00 Test Item Value Reference Range Interpretation Comments CULTURE (BEAKER) (test No anaerobes isolated code = 1095) VANCOMYCIN LEVEL, [id number] 05:18:00 Test Item Value Reference Range Interpretation Comments VANCOMYCIN RANDOM (BEAKER) (test 19.8 ug/mL code = 523) Reference Range: No NormalsPROTHROMBIN TIME/[id number] 04:55:00 Test Item Value Reference Range Interpretation [...] 10.0-20.0 H code = 522) BASIC METABOLIC [id number] 15:13:00 Test Item Value Reference Range Interpretation [...] 697) EGFR (BEAKER) (test 68 mL/min/1.73 ESTIMA MONROE GFR IS code = 1092) sq m NOT ACCURATE CREATININE CLEARANCE IN PREDICTING GLOMERULAR FILTRATION RATE . ESTIMATED GFR I S NOT APPLICABLE FOR DIALYSIS PATIEN TS. PROTHROMBIN [id number] 06:16:00 Test Item Value Reference Range Interpretation [...] heart valves.While on warfarin.LACTIC ACID, VENOUS, WHOLE [id number] 06:09:00 Test Item Value Reference Range Interpretation Comments LACTATE BLOOD VENOUS (2) (BEAKER) 0.6 mmol/L 0.5-2.2 (test code = 2872) Effective 12/12/2015: Units/Reference Range ChangeNew: 0.5-2.2 mmol/L Previous: 5-20 mg/dLTISSUE [id number] 11:35:00Surgical Pathology Report Case: [id number] Authorizing Provider: Aris Parker MD Collected: 03/23/2018 1136 Ordering Location: [facility] Received: 03/23/2018 1158 PERIOPERATIVE SERVICES Pathologist: Lanie Jaquez MD Specimen: Groin, Right, Right Groin Tissue SOFT TISSUE, RIGHT GROIN, DEBRIDEMENT: - FIBROADIPOSE TISSUE WITH FAT NECROSIS, ACUTE AND CHRONIC INFLAMMATION, AND FOREIGN BODY GIANT CELL REACTION Signing Pathologist Direct Phone Line: [phone] signed by Lanie Jaquez MD on 03/26/2018 at 11:35 [id number] groin tissueThe specimen is received in a formalin-filled container and labeled with the patient's information and labeled "right groin tissue" and consists of a segment of rodríguez-chapman hemorrhagic soft tissue measuring 3 x 1.6 x 0.5 cm. Line Builder sections are submitted A1.CG/pl Performed.SURGICALLY OBTAINED CULTURE + GRAM [id number] 09:47:00 Test Item Value Reference Range Interpretation Comments GRAM STAIN RESULT (BEAKER) <1+ WBCs (test code = 1123) GRAM STAIN RESULT (BEAKER) No organisms seen (test code = 41315) SURGICALLY OBTAINED CULTURE + GRAM [id number] 09:45:00 Test Item Value Reference Interpretation Comments Range CULTURE (BEAKER) METHICILLIN A 1+ Methicil rkiki (test code = 1095) RESISTANT resistant STAPHYLOCOCCUS [...] No organisms seen (BEAKER) (test code = 202723) BASIC METABOLIC [id number] 05:17:00 Test Item Value Reference Range Interpretation [...] 697) EGFR (BEAKER) (test 72 mL/min/1.73 ESTIMA MONROE GFR IS code = 1092) sq m NOT ACCURATE CREATININE CLEARANCE IN PREDICTING GLOMERULAR FILTRATION RATE . ESTIMATED GFR I S NOT APPLICABLE FOR DIALYSIS PATIEN TS. PROTHROMBIN [id number] 05:06:00 Test Item Value Reference Range Interpretation [...] 697) EGFR (BEAKER) (test 58 mL/min/1.73 ESTIMA MONROE GFR IS code = 1092) sq m NOT ACCURATE CREATININE CLEARANCE IN PREDICTING GLOMERULAR FILTRATION RATE . ESTIMATED GFR I S NOT APPLICABLE FOR DIALYSIS PATIEN TS. PROTHROMBIN [id number] 06:28:00 Test Item Value Reference Range Interpretation [...] valves.While on warfarin.CBC W/PLT COUNT & AUTO [id number] 06:18:00 Test Item Value Reference Range Interpretation [...] % 0-1 PERCENT (BEAKER) (test code = 7871) VANCOMYCIN LEVEL, [id number] 17:22:00 Test Item Value Reference Range Interpretation Comments VANCOMYCIN TROUGH (BEAKER) (test 14.6 ug/mL 10.0-20.0 code = 522) SPIN/CONCENTRATION [id number] 10:53:00 Test Item Value Reference Range Interpretation Comments CONCENTRATION CHARGED (BEAKER) (test Done code = 6816) BASIC METABOLIC [id number] 07:34:00 Test Item Value Reference Range Interpretation [...] 697) EGFR (BEAKER) (test 76 mL/min/1.73 ESTIMA MONROE GFR IS code = 1092) sq m NOT ACCURATE CREATININE CLEARANCE IN PREDICTING GLOMERULAR FILTRATION RATE . ESTIMATED GFR I S NOT APPLICABLE FOR DIALYSIS PATIEN TS. PROTHROMBIN [id number] 07:05:00 Test Item Value Reference Range Interpretation [...] (BEAKER) (test code = 2801) BASIC METABOLIC [id number] 06:54:00 Test Item Value Reference Range Interpretation [...] 697) EGFR (BEAKER) (test 75 mL/min/1.73 ESTIMA MONROE GFR IS code = 1092) sq m NOT ACCURATE CREATININE CLEARANCE IN PREDICTING GLOMERULAR FILTRATION RATE . ESTIMATED GFR I S NOT APPLICABLE FOR DIALYSIS PATIEN TS. PROTHROMBIN TIME/[id number] 05:47:00 Test Item Value Reference Range Interpretation [...] PERCENT (BEAKER) (test code = 2801) TISSUE [id number] 16:28:00Surgical Pathology Report Case: [id number] Authorizing Provider: Christian Hdz MD Collected: 02/02/2018 1942 Ordering Location: [facility] Received: 02/03/2018 0813 Pathologist: Sidney Wright MD Specimen: Plaque ARTERY, RIGHT EMERALD, ENDARTERECTOMY:CALCIFIC ATHEROSCLEROTIC PLAQUE WITH EROSION AND ATTACHED ORGANIZING THROMBUS Signing Pathologist Direct Phone Line: [phone] signed by Sidney Wright MDon 02/09/2018 at 4:28 [id number] femoral artery plaqueRight femoral artery plaqueThe specimen is received in a formalin-filled container and labeled with the patient's information and labeled "right femoral artery plaque and consists of two calcified fragments of tissue both measuring 2 cm in length ranging in diameter from 0.6 to 1 cm and separate segment of hemorrhagic calcified tissue measuring 2.5 x 1.5 x 1 cm in aggregate. Line Builder sections are submitted A1 for decalcification. CG/pl [id number] 06:08:00 Test Item Value Reference Range Interpretation Comments PHOSPHORUS (BEAKER) (test code = 2.2 mg/dL 2.3-4.7 L 604) [id number] 06:08:00 Test Item Value Reference Range Interpretation Comments MAGNESIUM (BEAKER) (test code = 2.1 mg/dL 1.6-2.6 627) BASIC METABOLIC [id number] 06:08:00 Test Item Value Reference Range Interpretation Comments SODIUM (BEAKER) 131 meq/L 136-145 L (test code = 381) POTASSIUM (BEAKER) 3.5 meq/L 3.5-5.1 (test code = 379) CHLORIDE (BEAKER) 101 meq/L 98-107 (test code = 382) CO2 (BEAKER) (test 26 meq/L 22-29 code = 355) BLOOD UREA NITROGEN 12 mg/dL 7-21 (BEAKER) (test code = 354) CREATININE (BEAKER) 0.95 mg/dL 0.57-1.25 (test code = 358) GLUCOSE RANDOM 96 mg/dL 70-105 (BEAKER) (test code = 652) CALCIUM (BEAKER) 8.4 mg/dL 8.4-10.2 (test code = 697) EGFR (BEAKER) (test 77 mL/min/1.73 ESTIMA MONROE GFR IS code = 1092) sq m [...] (BEAKER) (test code = 413) HEMOGLOBIN AND [id number] 11:55:00 Test Item Value Reference Range Interpretation Comments HEMOGLOBIN (BEAKER) (test code = 8.4 GM/DL 13.7-17.5 L 410) HEMATOCRIT (BEAKER) (test code = 28.9 % 40.1-51.0 L 411) [id number] 04:57:00 Test Item Value Reference Range Interpretation Comments PHOSPHORUS (BEAKER) (test code = 2.5 mg/dL 2.3-4.7 604) [id number] 04:57:00 Test Item Value Reference Range Interpretation Comments MAGNESIUM (BEAKER) (test code = 1.7 mg/dL 1.6-2.6 627) BASIC METABOLIC [id number] 04:57:00 Test Item Value Reference Range Interpretation [...] 697) EGFR (BEAKER) (test 88 mL/min/1.73 ESTIMA MONROE GFR IS code = 1092) sq m [...] = 413) CBC W/PLT COUNT & AUTO [id number] 15:56:00 Test Item Value Reference Range Interpretation [...] (BEAKER) (test code = 2801) COMPREHENSIVE METABOLIC [id number] 05:49:00 Test Item Value Reference Range Interpretation [...] 347) EGFR (BEAKER) (test 85 mL/min/1.73 ESTIMA MONROE GFR IS code = 1092) sq m NOT ACCURATE CREATININE CLEARANCE IN PREDICTING GLOMERULAR FILTRATION RATE . ESTIMATED GFR I S NOT APPLICABLE FOR DIALYSIS PATIEN TS. [id number] 05:48:00 Test Item Value Reference Range Interpretation Comments PHOSPHORUS (BEAKER) (test code = 2.9 mg/dL 2.3-4.7 604) [id number] 05:48:00 Test Item Value Reference Range Interpretation Comments MAGNESIUM (BEAKER) (test code = 1.7 mg/dL 1.6-2.6 627) CBC W/PLT COUNT & AUTO [id number] 04:20:00 Test Item Value Reference Range Interpretation [...] (BEAKER) (test code = 2801) VANCOMYCIN LEVEL, [id number] 23:58:00 Test Item Value Reference Range Interpretation Comments VANCOMYCIN TROUGH (BEAKER) (test code < ug/mL 10.0-20.0 L = 522) PROTHROMBIN [id number] 23:27:00 Test Item Value Reference Range Interpretation Comments PROTIME (BEAKER) (test code = 15.6 seconds 11.7-14.7 H 759) INR (BEAKER) (test code = 370) 1.2 <=5.9 RECOMMENDED COUMADIN/WARFARIN INR THERAPY RANGESSTANDARD DOSE: 2.0 - 3.0 Includes: PROPHYLAXIS forvenous thrombosis, systemic embolization; TREATMENT for venous thrombosis and/or pulmonary embolus.HIGH RISK: Target INR is 2.5-3.5 for patients with mechanical heart valves.[id number] 23:27:00 Test Item Value Reference Range Interpretation Comments FIBRINOGEN LEVEL (BEAKER) (test 276 mg/dl 225-434 code = 658) [id number] 23:27:00 Test Item Value Reference Range Interpretation Comments PARTIAL THROMBOPLASTIN TIME 29.8 seconds 22.5-36.0 (BEAKER) (test code = 760) CBC W/PLT COUNT & AUTO [id number] 23:22:00 Test Item Value Reference Range Interpretation [...] 0-1 PERCENT (BEAKER) (test code = 2801) [id number] 23:21:00 Test Item Value Reference Range Interpretation Comments PHOSPHORUS (BEAKER) (test code = 3.1 mg/dL 2.3-4.7 604) [id number] 23:21:00 Test Item Value Reference Range Interpretation Comments MAGNESIUM (BEAKER) (test code = 1.7 mg/dL 1.6-2.6 627) BASIC METABOLIC [id number] 23:21:00 Test Item Value Reference Range Interpretation [...] 697) EGFR (BEAKER) (test 74 mL/min/1.73 ESTIMA MONROE GFR IS code = 1092) sq m NOT ACCURATE CREATININE CLEARANCE IN PREDICTING GLOMERULAR FILTRATION RATE . ESTIMATED GFR I S NOT APPLICABLE FOR DIALYSIS PATIEN TS. HEPATIC FUNCTION [id number] 23:21:00 Test Item Value Reference Range Interpretation [...] U/L 6-55 347) LACTIC ACID, ARTERIAL, WHOLE [id number] 23:15:00 Test Item Value Reference Range Interpretation Comments LACTATE BLOOD ARTERIAL (2) 1.7 mmol/L 0.5-2.2 (BEAKER) (test code = 2874) Effective 12/12/2015: Units/Reference Range ChangeNew: 0.5-2.2 mmol/L Previous: 5-20 mg/dLRAD, CHEST, 1 VIEW, NON [id number] 23:12:00Reason for exam:- >s/p cardiac surgeryShould this [...] MDReport Verified Date/Time: 02/02/2018 23:12:37 Reading Location: [facility] B1 [id number] Consult Reading Room Electronicallysigned by: DENZEL HUITRON MD on 02/02/2018 11:12 PMHEMOGLOBIN AND [id number] 23:06:00 Test Item Value Reference Range Interpretation Comments HEMOGLOBIN (BEAKER) (test code = 11.3 GM/DL 13.7-17.5 L 410) HEMATOCRIT (BEAKER) (test code = 37.7 % 40.1-51.0 L 411) CALCIUM, [id number] 22:57:00 Test Item Value Reference Range Interpretation Comments CALCIUM IONIZED (BEAKER) (test 1.02 mmol/L 1.12-1.27 L code = 698) PH, BLOOD (BEAKER) (test code = 7.38 1810) OXYGEN SATURATION, [id number] 22:56:00 Test Item Value Reference Range Interpretation Comments O2 SATURATION (MEASURED) (BEAKER) 72.2 % (test code = 1455) PROTHROMBIN [id number] 19:20:00 Test Item Value Reference Range Interpretation Comments PROTIME (BEAKER) (test code = 17.6 seconds 11.7-14.7 H 759) INR (BEAKER) (test code = 370) 1.5 <=5.9 RECOMMENDED COUMADIN/WARFARIN INR THERAPY RANGESSTANDARD DOSE: 2.0 - 3.0 Includes: PROPHYLAXIS forvenous thrombosis, systemic embolization; TREATMENT for venous thrombosis and/or pulmonary embolus.HIGH RISK: Target INR is 2.5-3.5 for patients with mechanical heart valves.[id number] 19:20:00 Test Item Value Reference Range Interpretation Comments FIBRINOGEN LEVEL (BEAKER) (test 240 mg/dl 225-434 code = 658) [id number] 19:20:00 Test Item Value Reference Range Interpretation Comments PARTIAL THROMBOPLASTIN TIME 33.3 seconds 22.5-36.0 (BEAKER) (test code = 760) PLATELET [id number] 19:00:00 Test Item Value Reference Range Interpretation Comments PLATELET COUNT (BEAKER) (test 149 K/CU MM 150-450 L code = 756) POTASSIUM-STAT [id number] 18:54:00 Test Item Value Reference Range Interpretation Comments POTASSIUM (BEAKER) (test code = 4.2 meq/L 3.6-5.5 379) HEMOGLOBIN-STAT [id number] 18:54:00 Test Item Value Reference Range Interpretation Comments HEMOGLOBIN (BEAKER) (test code = 9.9 g/dL 13.0-16.8 L 410) HEMATOCRIT-STAT [id number] 18:54:00 Test Item Value Reference Range Interpretation Comments HEMATOCRIT (BEAKER) (test code = 411) 29.0 % 40.0-50.0 L BLOOD GAS, [id number] 18:54:00 Test Item Value Reference Range Interpretation [...] C (test code = 1818) SODIUM NA-STAT [id number] 18:54:00 Test Item Value Reference Range Interpretation Comments SODIUM (BEAKER) (test code = 381) 133 meq/L 135-148 L GLUCOSE-STAT [id number] 18:54:00 Test Item Value Reference Range Interpretation Comments GLUCOSE RANDOM (BEAKER) (test code 134 mg/dL 70-110 H = 652) HGB/HCT (H&H) - STAT [id number] 18:54:00 Test Item Value Reference Range Interpretation Comments HEMOGLOBIN (BEAKER) (test code = 9.9 GM/DL 13.0-16.8 L 410) HEMATOCRIT (BEAKER) (test code = 29.0 % 40.0-50.0 L 411) CALCIUM, [id number] 18:54:00 Test Item Value Reference Range Interpretation Comments CALCIUM IONIZED (BEAKER) (test 1.03 mmol/L 1.12-1.27 L code = 698) PH, BLOOD (BEAKER) (test code = 7.37 1810) CALCIUM, [id number] 18:13:00 Test Item Value Reference Range Interpretation Comments CALCIUM IONIZED (BEAKER) (test 1.02 mmol/L 1.12-1.27 L code = 698) PH, BLOOD (BEAKER) (test code = 7.36 1810) [id number] 17:42:00 Test Item Value Reference Range Interpretation Comments ACTIVATED CLOTTING TIME 279 sec TEST ED AT [place] [address] (BEAKER) (test code = [place] [address]) [address] [id number] 17:42:00 Test Item Value Reference Range Interpretation Comments ACTIVATED CLOTTING TIME 224 sec TEST ED AT [place] [address] ([facility]) (test code = DIMITRIS [place] [address]) [address] [id number] 17:42:00 Test Item Value Reference Range Interpretation Comments ACTIVATED CLOTTING TIME 158 sec TEST ED AT [place] [address] ([facility]) (test code = [place] [address]) [address] HGB/HCT (H&H) - STAT [id number] 16:30:00 Test Item Value Reference Range Interpretation Comments HEMOGLOBIN (BEAKER) (test code = 9.9 GM/DL 13.0-16.8 L 410) HEMATOCRIT (BEAKER) (test code = 29.0 % 40.0-50.0 L 411) POTASSIUM-STAT [id number] 16:30:00 Test Item Value Reference Range Interpretation Comments POTASSIUM (BEAKER) (test code = 3.7 meq/L 3.6-5.5 379) SODIUM NA-STAT [id number] 16:30:00 Test Item Value Reference Range Interpretation Comments SODIUM (BEAKER) (test code = 381) 134 meq/L 135-148 L GLUCOSE-STAT [id number] 16:30:00 Test Item Value Reference Range Interpretation Comments GLUCOSE RANDOM (BEAKER) (test code 105 mg/dL 70-110 = 652) [id number] 16:17:00 Test Item Value Reference Range Interpretation Comments ACTIVATED CLOTTING TIME 301 sec TEST ED AT [place] [address] (BEAKER) (test code = DIMITRIS [place] [address]) [address] BLOOD GAS, [id number] 16:16:00 Test Item Value Reference Range Interpretation [...] (test 37.0 C code = 1818) CALCIUM, [id number] 16:11:00 Test Item Value Reference Range Interpretation Comments CALCIUM IONIZED (BEAKER) (test 1.09 mmol/L 1.12-1.27 L code = 698) PH, BLOOD (BEAKER) (test code = 7.42 1810) MR, MRA, EXTREMITY, LOWER, WITHOUT FOLLOW, WITH [id number] 17:43:00 Bilateral extremitiesChristian Hdz MD [facility]ITALMukesh Hdz MD [facility] at [facility] Professor [facility] Public [facility] Nurse of PVD Services at [facility] [place] of Peripheral Vascular Medicine at [address] [place], [place] [email or web address] [email or web address] REPORT MRA of the lower extremities, 28 [...] reconstruction was performed by an independent workstation ([employer]). Please refer to the contrast sheetscanned in [...] CT scan. The proximal abdominal aorta is jackson. The celiac axis, SMA are patent with [...] coil embolisation procedure as per EPIC. The jackson left external iliac artery and the left [...] centimeters of the left SFA could be jackson. However, there is likely a left femoral [...] posterior tibial artery. In the right, the jackson right SFA is seen to be occluded. [...] though thereafter, it is occluded. 4. The jackson left SFA is likely occluded and a left femoral to distal popliteal bypass graft is identified that is patent with no proximal or distal anastomotic stenosis. Essentially three-vessel runoff is seen in the left lower extremity. 5. In the right, the jackson right SFA is o ccluded. It appears [...] MDReport Verified Date/Time: 01/28/2018 17:43:09 Reading Location: [place] [address] Cardiology MRI C METABOLIC [id number] 07:36:00 Test Item Value Reference Range Interpretation [...] 697) EGFR (BEAKER) (test 66 mL/min/1.73 ESTIMA MONROE GFR IS code = 1092) sq m [...] 0-0 (BEAKER) (test code = 413) PROTHROMBIN [id number] 14:15:00 Test Item Value Reference Range Interpretation [...] valves.Within 24 hours, if on CoumadinBASIC METABOLIC [id number] 06:41:00 Test Item Value Reference Range Interpretation [...] 697) EGFR (BEAKER) (test 77 mL/min/1.73 ESTIMA MONROE GFR IS code = 1092) sq m [...] (BEAKER) (test code = 413) BLOOD GAS, [id number] 10:39:00 Test Item Value Reference Range Interpretation [...] code = 1819) 46.0 % SODIUM NA-STAT [id number] 10:39:00 Test Item Value Reference Range Interpretation Comments SODIUM (BEAKER) (test code = 381) 131 meq/L 135-148 L POTASSIUM-STAT [id number] 10:39:00 Test Item Value Reference Range Interpretation Comments POTASSIUM (BEAKER) (test code = 3.1 meq/L 3.6-5.5 L 379) GLUCOSE-STAT [id number] 10:39:00 Test Item Value Reference Range Interpretation Comments GLUCOSE RANDOM (BEAKER) (test code 121 mg/dL 70-110 H = 652) HGB/HCT (H&H) - STAT [id number] 10:39:00 Test Item Value Reference Range Interpretation Comments HEMOGLOBIN (BEAKER) (test code = 8.1 g/dL 13.0-16.8 L 410) HEMATOCRIT (BEAKER) (test code = 24.0 % 40.0-50.0 L 411) [id number] 10:10:00 Test Item Value Reference Range Interpretation Comments ACTIVATED CLOTTING TIME 224 sec TEST ED AT [facility] [address] (BEAKER) (test code = [place] [address]) [address] CBC (HEMOGRAM ONLY)2017-12-05 06:51:00 Test Item Value [...] (BEAKER) (test code = 413) BASIC METABOLIC [id number] 06:44:00 Test Item Value Reference Range Interpretation [...] 70-105 (BEAKER) (test code = 652) CALCIUM ([facility]) 8.7 mg/dL 8.4-10.2 (test code = 697) EGFR ([facility]) (test 72 mL/min/1.73 ESTIMA MONROE GFR IS code = 1092) sq m NOT ACCURATE CREATININE CLEARANCE IN PREDICTING GLOMERULAR FILTRATION RATE . ESTIMATED GFR I S NOT APPLICABLE FOR DIALYSIS PATIEN TS. [id number] 12:39:00 Test Item Value Reference Range Interpretation Comments ACTIVATED CLOTTING TIME 136 sec TEST ED AT [place] [address] ([facility]) (test code = [place]ITRIS [place] [address]) [address] [id number] 11:51:00 Test Item Value Reference Range Interpretation Comments ACTIVATED CLOTTING TIME 147 sec TEST ED AT [place] [address] ([facility]) (test code = BRITTNYDC Kimberli [place] [address]) [address] [id number] 09:21:00 Test Item Value Reference Range Interpretation Comments ACTIVATED CLOTTING TIME 213 sec TEST ED AT [place] [address] ([facility]) (test code = [facility] Kimberli [place] [address]) [address] [id number] 08:58:00 Test Item Value Reference Range Interpretation Comments ACTIVATED CLOTTING TIME 191 sec TEST ED AT [place] [address] ([facility]) (test code = BRITTNYDC Kimberli [place] [address]) [address] CT, CTA [id number] 11:56:00Addendum BeginsREPORT STATUS:A Addendum: The images were reviewed with Dr. Hdz. There is a missing dictation, specifically, despite the aortic bypass surgery the jackson left common iliac artery is still patent [...] MDReport Verified Date/Time: 11/27/2017 11:56:33 Reading Location: [place] [address] Cardiology MRIAddendum EndsAddendum BeginsREPORT STATUS:A ADDENDUM: Study [...] months, PET-CT, or biopsy. Signed: Adryan Barrow Verified Date/Time: 11/26/2017 18:03:42 Reading Location: [place] [address] Angio Body Reading RoomAddendum EndsFINAL REPORT CT [...] takeoff of the left renal artery with vyei-fy-otwlvtzv stenosis identified. Arch vessel branching pattern is [...] mm, respectively with m ild tortuosity and pwio-iu-ljgpkrof calcific atherosclerosis present. Right iliac limb is [...] dictated, however, the ordering physician is the GEOSPATIAL PROGRAM MANAGEMENT OFFICER DRAW OPERATOR of the [facility] and therefore no recommendation would be [...] An addendum will be dictated by the Technology Engineer Radiologist regarding the nonvascular findings. Signed: Juwan Ramirezeport Verified Date/Time: 11/26/2017 16:25:25 Reading Location: [place] [address], CTA, [id number] 11:56:00Addendum BeginsREPORT STATUS:A Addendum: The images were reviewed with Dr. Reinier staples. There is a missing dictation, specifically, despite the aortic bypass surgery the jackson left common iliac artery is still patent with retrograde filling from the left external iliac artery, with aneurysmal dilation identified. Image 466, it measures approximately 4.3 x 4.2 cm in diameter. Some intraluminal thrombus is seen. This is the left common iliac artery. The left internal iliac artery is also patent, with calcification present. Signed: Juwan Ramirezort Verified Date/Time: 11/27/2017 11:56:33 Reading Location: [place] [address] Cardiology MRIAddendum EndsAddendum BeginsREPORT STATUS:A ADDENDUM: Study [...] Barroweport Verified Date/Time: 11/26/2017 18:03:42 Reading Location: [place] [address] Angio Body Reading RoomAddendum EndsFINAL REPORT CT [...] takeoff of the left renal artery with ehvu-fw-birxn ate stenosis identified. Arch vessel branching pattern [...] 8.2 mm, respectively with mild tortuosity and fggo-mv-kmnhnqpa calcific atherosclerosis present. Right iliac limb is [...] dictated, however, the ordering physician is the GEOSPATIAL PROGRAM MANAGEMENT OFFICER DRAW OPERATOR of the [facility] and therefore no recommendation would be [...] An addendum will be dictated by the Technology Engineer Radiologist regarding the nonvascular findings. Signed: Juwan Ramirez MDReport Verified Date/Time: 11/26/2017 16:25:25 Reading Location: [place] [address] Cardiology MRI B-TYPE NATRIURETIC FACTOR (BNP)2017-11-26 18:03:00 Test Item Value Reference Range Interpretation Comments B-TYPE NATRIURETIC PEPTIDE (BEAKER) 142 pg/mL 0-100 H (test code = 700) COMPREHENSIVE METABOLIC [id number] 17:56:00 Test Item Value Reference Range Interpretation [...] 347) EGFR (BEAKER) (test 63 mL/min/1.73 ESTIMA MONROE GFR IS code = 1092) sq m NOT ACCURATE CREATININE CLEARANCE IN PREDICTING GLOMERULAR FILTRATION RATE . ESTIMATED GFR I S NOT APPLICABLE FOR DIALYSIS PATIEN TS. PROTHROMBIN [id number] 17:33:00 Test Item Value Reference Range Interpretation [...] 0-1 PERCENT (BEAKER) (test code = 2801) [id number] 12:34:00 Test Item Value Reference Range Interpretation Comments POC-CREATININE 1.1 mg/dL 0.6-1.3 TESTED AT [facility] 67[address] (BEAKER) (test [place] code = 1859) [address] POC-EGFR (BEAKER) 65 mL/min/1.73M2 (test code = 1860) [id number] 06:22:001.08[facility] QovcpixMBOZCHPHWE7696-77-51 06:22:00 Test Item Value Reference Range Interpretation Comments PT (test code = PT) 14.2 s 12.0-14.7 [facility] GerhreyKKCQPRKFCL2550-81-61 16:33:001.09[facility]annHEMATOLOGY 2016-05-28 16:33:00 Test Item Value Reference Range Interpretation Comments PTT (test code = PTT) 27.7 s 22.9-35.8 [facility] PzvranmBSBBEAAMUO3820-78-33 16:33:00 Test Item Value Reference Range Interpretation Comments PT (test code = PT) 14.3 s 12.0-14.7 [facility] KsekhgpFDYNYLEGFV4778-79-49 16:33:33090Hcntkzxk HermannHEMATOLOGY 2016-05-28 16:33:008.4[facility] GmifspuUJEYUFBZBV4116-48-90 16:33:0033.3[facility] RmeeckiIQQKJLGYMF0619-47-07 16:33:0011.6[facility] OjmxtjbZJFLJWEKHF9576-25-22 16:33:00 Test Item Value Reference Range Interpretation Comments MCH (test code = MCH) 29.6 pg 27.0-31.0 [facility] TfswdmvSHZJRVMZEE0382-71-39 16:33:0015.0[facility] HermannHEMATOLOGY 2016-05-28 16:33:0088.9[facility] VeoypeqLKKYLMQNBD0824-81-85 16:33:0035.0[facility] JmvhpkfUGHAYYFQJD9526-82-01 16:33:003.94[facility] TucelfyCEYTUWQQKG7340-59-94 16:33:0011.4[facility] QebcvgtNZRNSEMXBN1751-52-29 16:33:001.3[facility] RXVXPFPTEB4052-30-94 16:33:008.9[facility] LubmivpCKHVAQIDYZ8991-12-09 16:33:001.2 [facility] CkuxbfvBANTEMIHFH8517-38-61 16:33:000.1[facility]annHEMATOLOGY 2016-05-28 16:33:000.1[facility] CzkdigkFQQYQRUUWR9930-52-57 16:33:000.5[facility] GwhocyzEGFRTQUSWJ0378-03-53 16:33:0011.5[facility] RegfmqnLVQSLQAEWD1924-43-19 16:33:0077.6[facility] ZhkwljnYBWWDKWTHV2654-99-36 16:33:0010.3[facility] CHEM PYVOA5280-29-55 09:17:0089[facility] HermannCHEM ZZMOZ9984-39-05 09:17:63094 [facility]annCHEM ZGXRL8963-47-73 09:17:000.80[facility]annCHEM PANEL 2016-05-27 09:17:009[facility] HermannCHEM YMVTL2266-84-83 09:17:35099Kwkfecbi HermannCHEM XTTRR5021-77-97 09:17:003.9[facility] HermannCHEM MDDGO1224-60-71 09:17:0022[facility] HermannCHEM MSBCO7595-87-70 09:17:08269Vzcagswx HermannCHEM UDJFN7355-22-26 09:17:008.0[facility] HermannCHEM KWTJP3649-31-04 09:17:0018.9 [facility]annCHEM LYMHD3385-11-92 09:17:002.3[facility] HermannCHEM PANEL 2016-05-27 09:17:001.7[facility] ZcosbrwSGHIJEBQIS4827-36-55 09:17:007.2[facility] BmhvczsJKJCWMLRQE2960-56-51 09:17:007.5[facility] ZvksjlaTGGIPISDPN9233-68-11 09:17:0085.1[facility] HkgtbedPAWADHGGER4738-54-99 09:17:009.0[facility] EMQMMJHPQN3785-75-58 09:17:000.2[facility] NtzdvheUGVXSBIONC1838-34-84 09:17:000.8 [facility] RzkonyaUDSNQCQMUG2600-83-04 09:17:000.8[facility] HermannHEMATOLOGY 2016-05-27 09:17:0088.5[facility] WhzdctwKGLCEYMPTO0247-37-91 09:17:0031.9[facility] NgyxqfhGOQHGZNOJK0248-66-09 09:17:0011.0[facility] VdjkmthNKZBYGMQYO6972-38-85 09:17:003.61[facility] MhqdwpnCPAAHPCLOL8852-41-09 09:17:00 Test Item Value Reference Range Interpretation Comments MCH (test code = MCH) 30.6 pg 27.0-31.0 [facility] YwlvdtzPRQUPCLWST2194-41-32 09:17:0010.6[facility] HermannHEMATOLOGY 2016-05-27 09:17:04207Saovognf BbzgagtDHEGJRZVEJ4114-22-62 09:17:0014.7[facility] CveqmbtUDULWYCWLB4955-30-88 09:17:0034.6[facility] GzusohxOGSZRBJETB0506-59-51 09:17:009.3[facility] HermannPARATHYROID UNUVYTS0252-94-24 09:17:000.99[facility] HermannPARATHYROID CTYNIMM6192-84-86 09:17:001.02[facility] HermannCARDIAC ENZYMES 2016-05-26 05:43:00<0.02[facility] HermannCARDIAC WCVIUGL2980-84-03 05:43:0050 [facility] HermannCHEM TIFCF6635-82-21 05:43:002.1[facility] HermannCHEM PANEL 2016-05-26 05:43:0088[facility] HermannCHEM ERTWS1783-91-03 05:43:0023[facility] HermannCHEM ZSUDP0837-50-76 05:43:36476Mtjmddyw HermannCHEM GGLPM9054-72-44 05:43:007.8[facility] HermannCHEM QSUJO8815-79-76 05:43:0016.2[facility] HermannCHEM XFHUU4957-58-26 05:43:18338Ylgrbybr HermannCHEM PMPBW4757-46-47 05:43:0078 [facility] HermannCHEM ZUDSX3720-74-14 05:43:009[facility] HermannCHEM PANEL 2016-05-26 05:43:004.2[facility] HermannCHEM IOXHZ3371-84-39 05:43:000.81[facility] HermannCHEM BAJPM6750-22-19 05:43:003.3[facility] ZwqwfbeNQZKCYZGRO7336-49-12 05:43:0034.6[facility] AgmytdfGQMLHHRPZF7762-35-78 05:43:0014.1[facility] LAMZXNRNKO7234-49-21 05:43:003.69[facility] KmczmeaUBWUDXBWFM8631-35-92 05:43:00 10.1[facility] SmecuceVLPPRFKKAY6820-48-67 05:43:009.0[facility] HermannHEMATOLOGY 2016-05-26 05:43:99537Nvcgvbjj EvavutrPECXSNNBLP3102-26-37 05:43:00 Test Item Value Reference Range Interpretation Comments MCH (test code = MCH) 30.3 pg 27.0-31.0 [facility] TrcjackOCQOSEKQCE7342-37-05 05:43:0087.7[facility] HermannHEMATOLOGY 2016-05-26 05:43:0032.4[facility] GrrjhbcYGQGSNNUIN2014-45-02 05:43:0011.2[facility] RcfrxuvXBSAVOTQPV6134-74-30 05:43:000.2[facility] NnpefvnDLXSAASPNW3833-88-16 05:43:00See Note (05/26/16 12:43 AM)[facility] WppwnryYZAJQCOXLN0687-94-16 05:43:0015.5[facility] MvwjdkbMLYKBJAEOC3916-20-97 05:43:00 Test Item Value Reference Range Interpretation Comments Max Amp (test code = Max Amp) 75.6 mm 50.0-70.0 [facility] WazcgyfYZAGUQDWYH6665-86-48 05:43:005.3[facility] HermannHEMATOLOGY 2016-05-26 05:43:00 Test Item Value Reference Range Interpretation Comments K-time (test code = K-time) 0.8 min 1.0-3.0 [facility] CtmhnsaYUOPCVGXVU3239-09-07 05:43:00 Test Item Value Reference Range Interpretation Comments Angle (test code = Angle) 78.6 degrees 53.0-72.0 [facility] PgwmmpoJTEUCUNMSN5165-28-20 05:43:00 Test Item Value Reference Range Interpretation Comments R-time (test code = R-time) 2.8 min 5.0-10.0 [facility] AbghphwDXYIHAQKVX3864-28-79 05:43:0010.1[facility] HermannHEMATOLOGY 2016-05-26 05:43:0013.2[facility] RtynrsoMUVIHXMEOA0135-37-89 05:43:007.7[facility] TfapjscDLRPWHAVDO0410-22-30 05:43:000.4[facility] JqzfbxaLTOPNCOEIY5842-56-51 05:43:000.1[facility] CuqhkizZOQSHOQZQN5268-85-77 05:43:001.0[facility] RKMBKCOBUC8049-95-07 05:43:001.3[facility] TbdkafnYQZDJJHATF5810-06-30 05:43:00 76.2[facility] HermannPARATHYROID HOTARVR5711-56-24 05:43:001.11[facility] PARATHYROID PWFDPFD9638-52-66 05:43:001.08[facility] HermannCHEM QTWPN8136-55-65 21:31:0080[facility] HermannCHEM ELKCS3405-54-66 21:31:0015.3[facility] HermannCHEM YFMFS4882-55-59 21:31:0025[facility] HermannCHEM HXMRF3814-28-42 21:31:007.9 [facility] HermannCHEM IJWQC0024-60-49 21:31:99709Dyqkktpb HermannCHEM PANEL 2016-05-25 21:31:004.3[facility] HermannCHEM ASTOU1209-60-35 21:31:63883Zdduhxor HermannCHEM ZRPYU0423-21-03 21:31:000.94[facility] HermannCHEM WOACK0196-76-51 21:31:49129Mcqzbeqi HermannCHEM RAWYQ4745-44-22 21:31:008[facility] AIPTODJRHM3990-68-33 21:31:001.19[facility] NsqdlawVBBMLMCMPB3415-16-92 21:31:00 Test Item Value Reference Range Interpretation Comments PT (test code = PT) 15.4 s 12.0-14.7 [facility] UsfnrzeDYOLYLYKYP6426-44-25 21:31:00 Test Item Value Reference Range Interpretation Comments PTT (test code = PTT) 34.1 s 22.9-35.8 [facility] HermannPARATHYROID KGKRBOF9662-39-38 06:49:001.07[facility] PARATHYROID VLGGFKQ5753-36-04 06:49:001.04[facility] HermannCARDIAC ENZYMES 2016-05-25 06:47:00<0.02[facility] HermannCARDIAC HEYPJDN2699-52-00 06:47:0057 [facility] HermannCHEM CWEZK2678-22-57 06:47:001.1[facility]annCHEM PANEL 2016-05-25 06:47:000.4[facility]annCHEM [id number] 06:47:000.6[facility]annCHEM [id number] 06:47:000.2[facility]annCHEM [id number] 06:47:0013[facility]annCHEM EJIXF4091-56-47 06:47:65910Llfnefrw HermannCHEM QOWHC2911-51-15 06:47:002.7[facility]annCHEM ULHQL1517-31-62 06:47:005.7 [facility]annCHEM [id number] 06:47:003.0[facility]annCHEM PANEL 2016-05-25 06:47:0014[facility] HermannCHEM [id number] 06:47:003.2[facility]annCHEM ZROVR1710-29-51 06:47:001.7[facility]annBLOOD BANK RESULTS 2016-05-25 02:09:00Positive 1(05/24/16 9:09 PM)[facility] HermannHEMATOLOGY 2016-05-25 02:09:00 Test Item Value Reference Range Interpretation Comments Max Amplitude Rapid (test code = Max 68 mm 52-71 Amplitude Rapid) [facility]gaxktsUIGPHZBGGE9601-81-39 02:09:0010.4[facility]annHEMATOLOGY 2016-05-25 02:09:000.4[facility] DuwtdqmIBQKRBXXEI7168-24-14 02:09:00 Test Item Value Reference Range Interpretation Comments ACT (TEG) Rapid (test code = ACT (TEG) 121 s 86-118 Rapid) [facility] DyjtecbANIZFNLWGZ7140-49-80 02:09:00 Test Item Value Reference Range Interpretation Comments Split Point Rapid (test code = Split 0.7 min Point Rapid) [facility]RelajpdKYCTIPYYHE7135-98-51 02:09:00 Test Item Value Reference Range Interpretation Comments R-time Rapid (test code = R-time 0.8 min 0.4-0.7 Rapid) [facility] HospitalLuursrqXJEQZDELXU5921-84-06 02:09:00 Test Item Value Reference Range Interpretation Comments K-time Rapid (test code = K-time 0.8 min 0.6-2.3 Rapid) [facility] HospitalEspecxbKFLENKQWFU4619-64-87 02:09:00 Test Item Value Reference Range Interpretation Comments Angle Rapid (test code = Angle 80 degrees 64-80 Rapid) [facility] HospitalPupkxrdKDDNWMULZP7139-21-53 02:09:001.7[facility] 2016-05-25 02:09:000.1[facility] KmtfybpEEIGKDLPVJ3400-61-93 02:09:000.1[facility] PiurlnpJURRUSPOBH7519-99-61 02:09:00 Test Item Value Reference Range Interpretation Comments PTT (test code = PTT) 32.0 s 22.9-35.8 [facility]
[2020-10-03 09:23] LABS: Absolute Lymphocytes (CBC) 0.6 K/uL (0.7-4.9); Basophils % 0.3 % (0-1.3); Hematocrit 39.6 % (39.6-49.0); Lymphocytes % 9.3 % (15.3-44.8); MPV 8.1 fL (7.6-11.3); RBC Red Blood Cell Count 4.54 M/uL (4.33-5.43)
[2020-10-03 09:34] LABS: Potassium 3.6 mmol/L (3.5-5.1)
[2020-10-03 09:37] LABS: Protime INR 1.72
--- NOTE | 2020-10-03 09:55 | RAD REPORT ---
EXAM DESCRIPTION: CT - Head C Spine Thiago Archibald - 10/03/2020 9:20 am CLINICAL HISTORY: Head and neck injury with chest and abdominal pain status post fall. Head and neck pain . TECHNIQUE: Computed axial tomography of the head and cervical spine was obtained Computed axial tomography of the chest, abdomen and pelvis was obtained. 100 cc Isovue-300 was given intravenously coronal and sagittal reconstruction was performed. All CT scans are performed using dose optimization technique as appropriate and may include automated exposure control or mA/KV adjustment according to patient size. COMPARISON: 2018 CT head and C-spine 2018 CT chest, abdomen and pelvis FINDINGS: Right craniotomy. Old right occipital lobe infarct. An intracranial bleed is not seen. The ventricles are normal in caliber. An extra-axial fluid collect ion is not noted. A cervical fracture is not seen. No dislocation is seen. Mild to moderate posterior subluxation C3 on C4 and mild anterior subluxation C4 on C5 unchanged. Spondylosis A mediastinal hematoma is not noted. A pleural effusion is not present. A lung contusion is not seen. 7 millimeter right lower lobe nodule unchanged. COPD. Aortic valve replacement Distal descending thoracic aortic aneurysm has an AP diameter 5.9 centimeters. Previously it measured 5 centimeters. It contains small to moderate amount of thrombus. Upper abdominal aortic aneurysm has an AP diameter 4 centimeters. An aorto bi femoral graft has been placed. The liver, spleen, pancreas, adrenals, kidneys and bladder do not demonstrate a traumatic injury. 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 No acute intracranial abnormality is seen 2. A cervical fracture is not visualized. If the patient continues have symptoms to suggest intracran ial/spinal cord pathology then MRI would be recommended. 3. 5.9 centimeter distal ascending thoracic aortic aneurysm 4. 4 centimeter upper abdominal aortic aneurysm
--- NOTE | 2020-10-03 10:40 | RAD REPORT ---
EXAM DESCRIPTION: RAD - Femur Left - 10/03/2020 9:59 am CLINICAL HISTORY: Leg pain FINDINGS: The bones are osteoporotic. No fracture is seen. Marked osteoarthritis left hip
--- NOTE | 2020-10-03 11:55 | EDPHYS ---
Physician Documentation [facility] Name: Pineda Mckeon Age: 75 yrs Sex: Male : 1945 Arrival Date: 10/03/2020 Time: 08:51 Bed 5 Private MD: ED Physician Atif Torres HPI: 10/03 09:03 This 75 yrs old Male presents to ER via EMS with complaints of Fall Injury. rn 09:03 Details of fall: The patient fell from seated position, out of a chair. Onset: The rn symptoms/episode began/occurred just prior to arrival. Associated injuries: The patient sustained injury to the head. Severity of symptoms: At their worst the symptoms were mild, in the emergency department the symptoms are unchanged. It is unknown whether or not the patient has had similar symptoms in the past. The patient has not recently seen a physician. Per report, fall from seated position, patient reports leg gave out, hit head, family member reported LOC, on warfarin, also reports left pelvic and hip pain. . Historical: - Allergies: 09:13 No Known Allergies; iw - Home Meds: 08:59 primidone 250 mg Oral tab 1 tab daily [Active]; amlodipine 2.5 mg tab 1 tab once daily iw [Active]; lisinopril 40 mg Oral tab 1 tab once daily [Active]; topiramate 100 mg oral tab 1 tab 2 times per day [Active]; warfarin 6 mg oral tab once daily [Active]; fentanyl 100 mcg/hr Topical pt72 1 patch every 48 hours [Active]; hydrocodone-acetaminophen 10-325 mg Oral tab 1 tab every 4-6 hours [Active]; Zanaflex 4 mg Oral tab 1 tab every 6 hours [Active]; - PMHx: 08:59 AAA; blood clot in right groin; Bypass Bilateral Legs; clotting disorder; COPD; CVA; iw Degenerative disc disease; Hypertension; Right Arm; TIA; - PSHx: 08:59 Right arm; Cholecystectomy; Hernia repair; iw - Immunization history:: Adult Immunizations unknown. - Family history:: not pertinent. - Social history:: Smoking status: unknown. - Hospitalizations: : No recent hospitalization is reported. ROS: 09:03 Constitutional: Negative for fever, chills, and weight loss, Eyes: Negative for injury, rn pain, redness, and discharge, Neck: + neck pain Cardiovascular: Negative for chest pain, palpitations, and edema, Respiratory: Negative for shortness of breath, cough, wheezing, and pleuritic chest pain, Abdomen/GI: Negative for abdominal pain, nausea, vomiting, diarrhea, and constipation, Back: Negative for injury and pain, MS/Extremity: + left leg pain Skin: + skin tear left arm Neuro: + head injury Exam: 09:03 Constitutional: This is a well developed, well nourished patient who is awake, alert, rn and in no acute distress. Head/Face: + small contusion and abrasion right upper forehead/scalp, no active bleeding Eyes: Pupils equal round and reactive to light, extra-ocular motions intact. Neck: In ccollar, no midline tenderness Cardiovascular: Regular rate and rhythm. No pulse deficits. Respiratory: No increased work of breathing, no retractions or nasal flaring. Abdomen/GI: soft, non-tender Back: No spinal tenderness. MS/ Extremity: Pulses equal, no cyanosis. + left elbow skin tear, no active bleeding, FROM bilateral hips and knees with mild pain left hip Neuro: Awake and alert, GCS 15, oriented to person, place, not time. Cranial nerves II-XII grossly intact. Motor strength 5/5 in all extremities. Sensory grossly intact. Vital Signs: 08:53 BP 177 / 99; Pulse 70; Resp 12; Temp 96.8(TE); Pulse Ox 100% on R/A; sv 09:45 BP 179 / 95; Pulse 63; Resp 13; Pulse Ox 99% ; sv 10:30 BP 161 / 89; Pulse 65; Resp 12; Pulse Ox 99% ; sv 11:15 BP 137 / 76; Pulse 62; Resp 18; Pulse Ox 99% ; sv 12:00 BP 173 / 80; Pulse 70; Resp 16; Pulse Ox 100% ; sv 13:05 BP 162 / 79; Pulse 65; Resp 16; Pulse Ox 96% on R/A; iw 14:38 BP 151 / 84; Pulse 61; Resp 15; Pulse Ox 100% ; sv 16:22 BP 163 / 88; Pulse 70; Resp 16 S; Temp 97.9(TE); Pulse Ox 98% on R/A; iw MDM: 08:51 Patient medically screened. rn 11:48 Differential diagnosis: abrasion, closed head injury, contusion, concussion. Data rn reviewed: vital signs, nurses notes, lab test result(s), radiologic studies, CT scan, and as a result, I will admit patient. Counseling: I had a detailed discussion with the patient and/or guardian regarding: the historical points, exam findings, and any diagnostic results supporting the discharge/admit diagnosis, lab results, radiology results, the need for further work-up and treatment in the hospital. Admission orders: after a detailed discussion of the patient's condition and case, the admit orders are written by me. Special discussion: Based on the patient's history, exam and DX evaluation, there is no indication for emergent intervention or inpatient TX. It is understood by the patient/guardian that if the SXs persist or worsen they need to return immediately for re-evaluation. ED course: Pt with no acute traumatic findings, still sleepy and per one daughter usually more alert, she states he stays with another daughter that is currently drunk and does drugs, has had APS case before due to negligence and patient has tested for drugs in past. Will add drug screen, UA, and obs to Dr. Conley for further observation period to distinguish post concussive syndrome vs other cause of sleepiness. . 10/03 08:53 Order name: CBC with Diff; Complete Time: 09:52 rn 10/03 08:53 Order name: Basic Metabolic Panel; Complete Time: 09:52 rn 10/03 08:53 Order name: Protime (+inr); Complete Time: 09:52 rn 10/03 08:53 Order name: Ptt, Activated; Complete Time: 09:52 rn 10/03 11:43 Order name: Urine Drug Screen rn 10/03 08:53 Order name: CT Traumagram (Head C Spine CAP W Con); Complete Time: 10:41 rn 10/03 08:53 Order name: XRAY Femur LEFT; Complete Time: 10:41 rn 10/03 08:53 Order name: IV Start; Complete Time: 09: rn 10/03 09:08 Order name: EKG; Complete Time: 09: rn 10/03 12:27 Order name: Urine Dipstick--Ancillary (enter results) bd 10/03 12:27 Order name: Urine Dipstick-Ancillary EDNJ 10/03 13:29 Order name: SARS-COV-2 RT PCR EDNJ 10/03 15:00 Order name: Diet Regular; Complete Time: 15:01 iw 10/03 09:08 Order name: EKG - Nurse/Tech; Complete Time: 10:05 rn 10/03 11:43 Order name: Urine Dipstick-Ancillary (obtain specimen); Complete Time: 12:39 rn Administered Medications: No medications were administered Disposition: 10/03/20 11:55 Hospitalization ordered by Albert Conley for Observation. Preliminary diagnosis are Superficial injury of head, Altered mental status, unspecified. - Bed requested for Telemetry/MedSurg (observation). - Status is Observation. iw - Condition is Stable. - Problem is new. - Symptoms are unchanged. Signatures: Dispatcher [employer] EDNJ Alysha Jacobs RN RN kl Williams, Irene, RN RN iw Atif Torres MD MD rn utilization management um: (The following items were deleted from the chart) 12:50 12:21 CORONAVIRUS+MR.LAB.BRZ ordered. [facility] EDNJ 15:58 11:55 Hospitalization Ordered by Albert Conley MD for Observation. Preliminary kl diagnosis is Superficial injury of head; Altered mental status, unspecified. Bed requested for Telemetry/MedSurg (observation). Status is Observation. Condition is Stable. Problem is new. Symptoms are unchanged. rn 17:26 15:58 10/03/2020 11:55 Hospitalization Ordered by Albert Conley MD for Observation. iw Preliminary diagnosis is Superficial injury of head; Altered mental status, unspecified. Bed requested for Telemetry/MedSurg (observation). Status is Observation. Condition is Stable. Problem is new. Symptoms are unchanged. kl
--- NOTE | 2020-10-03 11:55 | ER ---
Nurse's Notes [facility] Name: Pineda Mckeon Age: 75 yrs Sex: Male : 1945 Arrival Date: 10/03/2020 Time: 08:51 Bed 5 Private MD: Diagnosis: Superficial injury of head;Altered mental status, unspecified Presentation: 10/03 08:52 Chief complaint: Patient states: daughter reported pt was sitting and hen he fell iw forward onto ground, hit his head, +LOC, is on blood thinners, pt is A\T\OX2 on arrival, states his legs gave out , has skin tear to left elbow and pain to left leg on movement. Care prior to arrival: IV initiated. 20 GA, in the right antecubital area, Glucose check: 118. Mechanism of Injury: Fall. 08:52 Acuity: NORY 2 iw 08:52 Method Of Arrival: EMS: [facility] iw 08:55 Coronavirus screen: At this time, the client does not indicate any symptoms associated iw with coronavirus-19. Ebola Screen: Patient negative for fever greater than or equal to 101.5 degrees Fahrenheit, and additional compatible Ebola Virus Disease symptoms Patient denies exposure to infectious person. Patient denies travel to an Ebola-affected area in the 21 days before illness onset. No symptoms or risks identified at this time. Initial Sepsis Screen: Does the patient meet any 2 criteria? No. Patient's initial sepsis screen is negative. Does the patient have a suspected source of infection? No. Patient's initial sepsis screen is negative. Risk Assessment: Do you want to hurt yourself or someone else? Patient reports no desire to harm self or others. Onset of symptoms was October 03, 2020. 08:56 Trauma event details: Injury occurred in the [facility], Injury occurred: at iw home. Injury occurred: October 03, 2020. Trauma Activation: Alert Physician: ED Physician; Name: ; Notified At: ; Arrived At: Physician: General Surgeon; Name: ; Notified At: ; Arrived At: Physician: Radiology; Name: ; Notified At: ; Arrived At: Physician: Respiratory; Name: ; Notified At: ; Arrived At: Physician: Lab; Name: ; Notified At: ; Arrived At: Historical: - Allergies: 09:13 No Known Allergies; iw - Home Meds: 08:59 primidone 250 mg Oral tab 1 tab daily [Active]; amlodipine 2.5 mg tab 1 tab once daily iw [Active]; lisinopril 40 mg Oral tab 1 tab once daily [Active]; topiramate 100 mg oral tab 1 tab 2 times per day [Active]; warfarin 6 mg oral tab once daily [Active]; fentanyl 100 mcg/hr Topical pt72 1 patch every 48 hours [Active]; hydrocodone-acetaminophen 10-325 mg Oral tab 1 tab every 4-6 hours [Active]; Zanaflex 4 mg Oral tab 1 tab every 6 hours [Active]; - PMHx: 08:59 AAA; blood clot in right groin; Bypass Bilateral Legs; clotting disorder; COPD; CVA; iw Degenerative disc disease; Hypertension; Right Arm; TIA; - PSHx: 08:59 Right arm; Cholecystectomy; Hernia repair; iw - Immunization history:: Adult Immunizations unknown. - Family history:: not pertinent. - Social history:: Smoking status: unknown. - Hospitalizations: : No recent hospitalization is reported. Screenin:11 Abuse screen: Denies threats or abuse. Denies injuries from another. Tuberculosis iw screening: No symptoms or risk factors identified. 16:54 Nutritional screening: No deficits noted. Fall Risk Fall in past 12 months (25 points). iw Assessment: 08:55 General: Appears in no apparent distress. Behavior is calm, cooperative. Pain: iw Complains of pain in left quadriceps. Neuro: Level of Consciousness is awake, alert, obeys commands, Oriented to person, place, Moves all extremities. Cardiovascular: Patient's skin is warm and dry. Respiratory: Respiratory effort is even, unlabored, Respiratory pattern is regular, symmetrical. GI: Abdomen is flat, non-distended. Derm: Skin has skin tears on left elbow. Musculoskeletal: 10:39 Reassessment: Patient appears in no apparent distress at this time. pt appears to be iw sleeping, awakens easily to tactile stimuli. 13:05 Reassessment: Patient appears in no apparent distress at this time. pt appears to be iw sleeping, awakens to tactile stimuli, pt oriented to person and place, denies needs at this time, still drowsy. 16:22 Reassessment: Patient appears in no apparent distress at this time. Patient and/or iw family updated on plan of care and expected duration. Pain level reassessed. Patient is alert, oriented x 3, equal unlabored respirations, skin warm/dry/pink. Patient states feeling better. Patient states symptoms have improved. Vital Signs: 08:53 BP 177 / 99; Pulse 70; Resp 12; Temp 96.8(TE); Pulse Ox 100% on R/A; sv 09:45 BP 179 / 95; Pulse 63; Resp 13; Pulse Ox 99% ; sv 10:30 BP 161 / 89; Pulse 65; Resp 12; Pulse Ox 99% ; sv 11:15 BP 137 / 76; Pulse 62; Resp 18; Pulse Ox 99% ; sv 12:00 BP 173 / 80; Pulse 70; Resp 16; Pulse Ox 100% ; sv 13:05 BP 162 / 79; Pulse 65; Resp 16; Pulse Ox 96% on R/A; iw 14:38 BP 151 / 84; Pulse 61; Resp 15; Pulse Ox 100% ; sv 16:22 BP 163 / 88; Pulse 70; Resp 16 S; Temp 97.9(TE); Pulse Ox 98% on R/A; iw ED Course: 08:51 Patient arrived in ED. rn 08:51 Atif Torres MD is Attending Physician. rn 08:54 Triage completed. iw 08:54 Patient has correct armband on for positive identification. Bed in low position. Call sv light in reach. Side rails up X2. campus monitor on. Pulse ox on. NIBP on. 08:59 Kiera Mayfield, CHRYSTAL is Primary Nurse. iw 09:00 Arm band placed on. iw 09:00 No provider procedures requiring assistance completed. Patient admitted, IV remains in iw place. 09:13 Maintain EMS IV. Dressing intact. Good blood return noted. Site clean \T\ dry. Gauge \T\ iw site: 20 RAC. Patient maintains SpO2 saturation greater than 95% on room air. 09:20 CT Traumagram (Head C Spine CAP W Con) In Process Unspecified. EDMS 09:59 XRAY Femur LEFT In Process Unspecified. EDMS 10:05 EKG done, by ED staff, reviewed by Atif Torres MD. em1 10:33 contact number for pt . daughter Andra [phone]...daughter Martha [phone]. bd 11:55 Albert Conley MD is Hospitalizing Provider. rn 12:00 Urine collected: straight cath specimen, clear, Amount Returned: 700mL. iw Administered Medications: No medications were administered Outcome: 11:55 Decision to Hospitalize by Provider. rn 16:53 Admitted to Med/surg accompanied by tech, via stretcher, with chart, Report called to brandin Olvera RN 16:53 Condition: good 16:53 Discharge instructions given to patient, Instructed on the need for admit, Demonstrated understanding of instructions. 17:26 Patient left the ED. iw Signatures: Dispatcher [employer] EDMS Audrey Valderrama Stephanie, RN Kiera Mancia RN RN iw Nieto, Roman, MD MD rn Martinez, Rusty oropeza
[2020-10-03 12:38] LABS: Urine Blood NEGATIVE (NEG); Urine Glucose NEGATIVE (NEG); Urine Protein NEGATIVE (NEG); Urine Specific Gravity <1.005 (1.005-1.030)
[2020-10-03 12:43] LABS: Barbiturates POSITIVE (NEGATIVE); Benzodiazepines NEGATIVE (NEGATIVE); Cocaine NEGATIVE (NEGATIVE); METHAMPHETAM POSITIVE (NEGATIVE); Methadone POSITIVE (NEGATIVE); Opiates NEGATIVE (NEGATIVE); Phencyclidine NEGATIVE (NEGATIVE); THC Cannibis POSITIVE (NEGATIVE)
[2020-10-03 18:27] VITALS: BMI 22.8
[2020-10-03] MEDS ORDERED: ACETAMINOPHEN 500 MG TAB PO PRN (18:45)
[2020-10-03] MEDS ORDERED: MORPHINE 2 MG/ML SYR IV PRN (18:45)
[2020-10-03] MEDS ORDERED: ONDANSETRON 4 MG/2 ML VIAL IV PRN (18:45)
[2020-10-03] MEDS: NA CHLORIDE 0.9% 1,000 ML IV SCH (20:11)
[2020-10-03] MEDS: HYDRALAZINE HCL 20 MG/ML VIAL IV PRN (21:36)
[2020-10-04] MEDS ORDERED: TIZANIDINE 4 MG TABLET PO ONE (01:00)
--- NOTE | 2020-10-04 05:39 | EKG ---
Test Date: 2020-10-03 Test Time: 10:01:40 Insole Presser: SEBASTIAN MEASUREMENT RESULTS: Intervals: Rate: 63 ME: 182 QRSD: 94 QT: 440 QTc: 450 [place]: P: 63 ME: 182 QRS: -15 T: 62 INTERPRETIVE STATEMENTS: Normal sinus rhythm Normal ECG Compared to ECG 04/25/2020 20:11:23 Left-axis deviation no longer present Electronically Signed On 10-04-20 05:35:46 BONE GRINDER by Conrad Scherer
[2020-10-04 05:57] LABS: Absolute Lymphocytes (CBC) 0.9 K/uL (0.7-4.9); Basophils % 0.6 % (0-1.3); Hematocrit 36.3 % (39.6-49.0); Lymphocytes % 14.3 % (15.3-44.8); MPV 8.4 fL (7.6-11.3); RBC Red Blood Cell Count 4.17 M/uL (4.33-5.43)
[2020-10-04 06:05] LABS: Protime INR 1.79
[2020-10-04 06:12] LABS: Bilirubin Total 0.6 mg/dL (0.2-1.0); Potassium 3.8 mmol/L (3.5-5.1)
[2020-10-04] MEDS: HYDRALAZINE HCL 20 MG/ML VIAL IV PRN (08:00)
[2020-10-04] MEDS ORDERED: TIZANIDINE 4 MG TABLET PO SCH (09:00)
[2020-10-04] MEDS: NA CHLORIDE 0.9% 1,000 ML IV SCH (09:01)
[2020-10-04 11:04] VITALS: O2SAT 95
[2020-10-04 13:02] VITALS: BP 148/81; TEMP 98.1
--- NOTE | 2020-10-04 13:23 | P.HP ---
Certification for Inpatient Patient admitted to: Observation With expected LOS: <2 Midnights Patient will require the following post-hospital care: None Practitioner: I am a practitioner with admitting privileges, knowledge of patient current condition, hospital course, and medical plan of care. Services: Services provided to patient in accordance with Admission requirements found in Title 42 Section 412.3 of the Code of Federal Regulations Patient History Date of Service: 10/03/20 Reason for admission: Status post fall on anti coagulation History of Present Illness: Patient is a 75-year-old gentleman who came to the hospital after falling. Patient been on anti coagulation for quite a while and his INR was subtherapeutic but he did have a fall where he landed on his face. He had taken extra Ativan so he can rest that the evening but when his phone rang he wanted to get up. When he was almost there to get the phone he does not remember any thing after that. He was brought into the hospital and he had a laceration. Patient was admitted. Patient is confused. Not able to give me much of a history. He will be admitted for observation initially. The continues to improve then we can possibly discharge him. If he worsens we may need to change it to an inpatient hospitalization. Allergies No Known Allergies Allergy (Verified 10/24/17 00:11) Home Medications: Albuterol Sulfate [Proair Respiclick] 90 mcg IH Q6H PRN 01/24/19 Amlodipine [Norvasc*] 2.5 mg PO DAILY 01/24/19 Fluticasone/Vilanterol [Breo Ellipta 200-25 Mcg INH] 1 puff IH DAILY 01/24/19 Gabapentin 300 mg PO DAILY 01/24/19 Hydrocodone Bit/Acetaminophen [Hydrocodon-Acetaminophn 10-325] 1 tab PO Q6H PRN 01/24/19 Primidone 250 mg PO DAILY 01/24/19 Tizanidine [Zanaflex*] 1 tab PO TID 01/24/19 Topiramate [Topamax] 100 mg PO BID 01/24/19 Warfarin Sodium 8 mg PO DAILY 01/24/19 carvediloL [Coreg*] 6.25 mg PO BID 01/24/19 fentaNYL [Fentanyl] 100 mcg TOP SEECOM 01/24/19 lisinopriL [Lisinopril] 40 mg PO DAILY 01/24/19 predniSONE [Deltasone] 20 mg PO DAILY #5 tablet 01/25/19 Amitriptyline HCl 75 mg PO BEDTIME 10/03/20 - Past Medical/Surgical History Has patient received pneumonia vaccine in the past: No Diabetic: No -: CAD -: PAD -: factor 5 clotting disorder -: COPD -: Recent history of subdural hematoma -: Chronic anti coagulation for arterial disease -: Chronic pain syndrome -: Peripheral vascular disease -: History of AAA repair -: Blood clot in the groin -: Degenerative disc disease -: Cholecystectomy -: CABGx3 -: AAA repair -: Hernia repair -: subdural hematoma surgery -: valve replacement Psychosocial/ Personal History: He currently lives with his daughter, has 5 children, he does not work. - Family History Mother Medical History: Heart disease, Hypertension Father Medical History: Heart disease, Other (see notes) Notes: Alzheimer's - Social History Smoking Status: Former smoker Alcohol use: No CD- Drugs: Yes Caffeine use: Yes Place of Residence: Home Review of Systems 10-point ROS is otherwise unremarkable Physical Examination - Vital Signs Temperature: 98.1 F Blood Pressure: 148/81 Pulse: 80 Respirations: 18 Pulse Ox (%): 94 - Physical Exam General: Alert, In no apparent distress, Confused HEENT: Atraumatic, PERRLA, Mucous membr. moist/pink, EOMI, Sclerae nonicteric Neck: Supple, 2+ carotid pulse no bruit, No LAD, Without JVD or thyroid abnormality Respiratory: Clear to auscultation bilaterally, Normal air movement Cardiovascular: Regular rate/rhythm, Normal S1 S2, Systolic murmur Gastrointestinal: Normal bowel sounds, Soft and benign, Non-distended, No tenderness Musculoskeletal: No clubbing, No swelling, No tenderness Integumentary: No rashes Neurological: Normal tone, Sensation intact, Cranial nerves 3-12 intact, Normal affect, Abnormal gait, Abnormal speech, Abnormal strength Lymphatics: No axilla or inguinal lymphadenopathy Assessment & Plan - Problems (Diagnosis) (1) Status post fall Current Visit: Yes Status: Acute (2) Moderate benzodiazepine use disorder Current Visit: Yes Status: Acute (3) AAA (abdominal aortic aneurysm) Onset Date: 09/15/17 Current Visit: No Status: Chronic Qualifiers: (4) CAD (coronary artery disease) of artery bypass graft Onset Date: 12/31/17 Current Visit: No Status: Chronic Qualifiers: (5) COPD (chronic obstructive pulmonary disease) Onset Date: 07/14/16 Current Visit: No Status: Chronic Qualifiers: (6) Chronic anticoagulation Onset Date: 07/14/16 Current Visit: No Status: Chronic (7) Factor V Leiden Onset Date: 12/31/17 Current Visit: No Status: Chronic (8) Severe aortic stenosis Onset Date: 12/31/17 Current Visit: No Status: Chronic (9) COPD exacerbation Current Visit: No Status: Resolved - Plan Plan: 1. Observe overnight. Monitor anti coagulation 2. Monitor INR 3. Monitor on telemetry 4. Hold off on Ativan 5. Anticipate discharge in the morning if patient clinically doing better Discharge Plan: Home Plan to discharge in: 24 Hours - Advance Directives Does patient have a Living Will: No Does patient have a Durable POA for Healthcare: No - Code Status/Comfort Care Code Status Assessed: Yes Code Status: Full Code Critical Care: No Time Spent Managing PTS Care (In Minutes): 45
--- NOTE | 2020-10-23 01:58 | P.DS ---
Discharge Date: 10/04/20 Disposition: ROUTINE DISCHARGE Discharge Condition: GOOD Reason for Admission: Status post fall on anti coagulation - Problems (1) Status post fall Status: Acute (2) Moderate benzodiazepine use disorder Status: Acute (3) AAA (abdominal aortic aneurysm) Onset Date: 09/15/17 Status: Chronic Qualifiers: (4) CAD (coronary artery disease) of artery bypass graft Onset Date: 12/31/17 Status: Chronic Qualifiers: (5) COPD (chronic obstructive pulmonary disease) Onset Date: 07/14/16 Status: Chronic Qualifiers: (6) Chronic anticoagulation Onset Date: 07/14/16 Status: Chronic (7) Factor V Leiden Onset Date: 12/31/17 Status: Chronic (8) Severe aortic stenosis Onset Date: 12/31/17 Status: Chronic (9) COPD exacerbation Status: Resolved Brief History of Present Illness: Patient is a 75-year-old gentleman who came to the hospital after falling. Patient been on anti coagulation for quite a while and his INR was subtherapeutic but he did have a fall where he landed on his face. He had taken extra Ativan so he can rest that the evening but when his phone rang he wanted to get up. When he was almost there to get the phone he does not remember anything after that. He was brought into the hospital and he had a laceration. Patient was admitted. Patient is confused. Not able to give me much of a history. He will be admitted for observation initially. The continues to improve then we can possibly discharge him. If he worsens we may need to change it to an inpatient hospitalization. Hospital Course: Patient's symptoms are better. Patient clinically as well. At this time patient is stable for discharge. Vital Signs/Physical Exam: Temp Pulse Resp BP Pulse Ox 98.1 F 80 18 148/81 H 94 10/04/20 13:22 10/04/20 13:22 10/04/20 13:22 10/04/20 13:22 10/04/20 13:22 General: Alert, In no apparent distress, Oriented x3 Laboratory Data at Discharge: WBC 6.10 K/uL (4.3-10.9) 10/04/20 05:43 Hgb 12.2 g/dL (13.6-17.9) L 10/04/20 05:43 Hct 36.3 % (39.6-49.0) L 10/04/20 05:43 Plt Count 137 K/uL (152-406) L 10/04/20 05:43 PT 20.7 SECONDS (9.5-12.5) H 10/04/20 05:43 INR 1.79 10/04/20 05:43 APTT 28.4 SECONDS (24.3-36.9) 10/04/20 05:43 Sodium 138 mmol/L (136-145) 10/04/20 05:43 Potassium 3.8 mmol/L (3.5-5.1) 10/04/20 05:43 BUN 10 mg/dL (7-18) 10/04/20 05:43 Creatinine 0.97 mg/dL (0.55-1.3) 10/04/20 05:43 Glucose 86 mg/dL (74-106) 10/04/20 05:43 Total Bilirubin 0.6 mg/dL (0.2-1.0) 10/04/20 05:43 AST 15 U/L (15-37) 10/04/20 05:43 ALT 11 U/L (12-78) L 10/04/20 05:43 Alkaline Phosphatase 161 U/L (45-117) H 10/04/20 05:43 Home Medications: Albuterol Sulfate [Proair Respiclick] 90 mcg IH Q6H PRN 01/24/19 Amlodipine [Norvasc*] 2.5 mg PO DAILY 01/24/19 Fluticasone/Vilanterol [Breo Ellipta 200-25 Mcg INH] 1 puff IH DAILY 01/24/19 Gabapentin 300 mg PO DAILY 01/24/19 Hydrocodone Bit/Acetaminophen [Hydrocodon-Acetaminophn 10-325] 1 tab PO Q6H PRN 01/24/19 Primidone 250 mg PO DAILY 01/24/19 Tizanidine [Zanaflex*] 1 tab PO TID 01/24/19 Topiramate [Topamax] 100 mg PO BID 01/24/19 Warfarin Sodium 8 mg PO DAILY 01/24/19 carvediloL [Coreg*] 6.25 mg PO BID 01/24/19 fentaNYL [Fentanyl] 100 mcg TOP SEECOM 01/24/19 lisinopriL [Lisinopril] 40 mg PO DAILY 01/24/19 predniSONE [Deltasone] 20 mg PO DAILY #5 tablet 01/25/19 Amitriptyline HCl 75 mg PO BEDTIME 10/03/20 Physician Discharge Instructions: OK TO DC IV AND DC HOME FOLLOW-UP WITH PRIMARY CARE PROVIDER IN 1-2 WEEKS FOLLOW-UP WITH CARDIOLOGY and Neurology IN 1-2 WEEKS RETURN TO THE ER IF symptoms worsen CALL or TEXT DR. HUDSON AT [phone] IF ANY QUESTIONS REGARDING HOSPITAL STAY. PLEASE CALL THE FLOOR AT [phone] IF ANY MEDICATION OR NURSING QUESTIONS. Diet: AHA Activity: Fall precautions Followup: Laz Coley MD [Primary Care Provider] - Time spent managing pt's care (in minutes): 35
== END 2020-10-04 14:50 | disposition home or self-care (01) ==
LOC: ER 08:50 → ERHOLD 14:57 → 2ND 16:56
PROVIDERS: ADMIT Hospitalist; ATTEND Hospitalist
DX: S09.90XA Unspecified injury of head, initial encounter (principal); S00.01XA Abrasion of scalp, initial encounter; S00.03XA Contusion of scalp, initial encounter; Z20.822 Contact with and (suspected) exposure to COVID-19; I25.10 Atherosclerotic heart disease of native coronary artery without angina pectoris; J44.1 Chronic obstructive pulmonary disease with (acute) exacerbation; D68.51 Activated protein C resistance; I73.9 Peripheral vascular disease, unspecified; Z79.01 Long term (current) use of anticoagulants; G89.4 Chronic pain syndrome; Z95.1 Presence of aortocoronary bypass graft; Z95.2 Presence of prosthetic heart valve; Z87.891 Personal history of nicotine dependence; F13.90 Sedative, hypnotic, or anxiolytic use, unspecified, uncomplicated; I71.4 Abdominal aortic aneurysm, without rupture; I35.0 Nonrheumatic aortic (valve) stenosis
CPT/HCPCS: 93005; 85025 ×2; 80048; 36415; 85610 ×2; 82565; 80307 ×8; 85730 ×2; 81003; 80053; 70450; 72125; 71260; 74177; 73552; 99285; U0003; Q9967; J0360 ×2; J2270; J7030 ×2; G0378 ×3; G0390

== ENCOUNTER 2021-01-29 22:24 | Emergency (ER) | payer OTHER ==
--- OUTSIDE RECORDS SUMMARY | 2021-01-29 22:31 | XMS REPORT | Continuity of Care Document ---
:1945 Author Organization [facility] t Address [address] [place] [address] Care Team Providers Name Role Phone Jono PAK, P Primary Care Physician Unavailable [place] Elliott Attending [...] Clinician Date PAD PAD Disease Active 2018-08 Haines (periphera (periphera 0-30 Me thodi l artery l artery 00:00: st disease) disease) 00 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 Me thodi [facility]:00: st 00 PAD PAD Disease Active 2018-08 Last Haines (periphera (periphera 0-18 Assessmen Methodi l artery l artery 00:00: t & Plan: st disease) disease) 00 Formattin g of this note might be different from the original. Patient with symptomat ic periphera l arterial [...] graft explantat ion VTE VTE Disease Active [facility] (venous (venous 02-23 Assessmen Metho di thromboemb thromboemb 00:00: t & Plan: st olism) olism) 00 Formattin g of this note might be different from the original. Plan: Bilateral LE vein mapping ZHANE (acute ZHANE (acute Disease Active [facility] kidney kidney 28 [facility]) injury) 00:[facility]: Medical [address] [place] [address] Abscess of Abscess of Disease Active [facility] right right 8-15 [facility] - groin groin 00:[facility] Medical Center S/P TAVR S/P TAVR Disease [facility] ([facility] (transcath 5-03 Karine kes - eter eter 00:00: Medical aortic aortic 00 Center valve valve replacemen replacemen t) t) Aneurysm Aneurysm Disease [facility] of artery of artery 12-04 [facility] - of lower of lower 00:00: Medica l extremity extremity 00 Cent er SARAH Diagnosis Active 2015-082016-05-26 Memoria BILLING 0-15 12:09:00 l 5060 20:28: Jevon SMITH 00 BILLING 5060 Active 05/24/2016 [facility] SDH Diagnosis Active 2015-082016-06-05 Mem oria 0-15 23:20:00 l SDH 00:00: Jevon 00 Active 05/24/2016 [facility] Severe Severe Disease Active [facility] aortic aortic [facility] - stenosis stenosis Medica l [place] Anemia Anemia Disease Active [facility] HTN HTN Disease Active [facility] St (hypertens (hypertens Karine kes - ion) ion) [facility] Hyperlipid Hyperlipid Disease Active [facility] emia emia [facility] COPD COPD Disease Active [facility] St (chronic (chronic [facility] - obstructiv obstructiv Me dical e e Center pulmonary pulmonary disease) disease) Seizures Seizures Disease Active [facility] S t [facility] Peripheral Peripheral Disease Active C [place] [facility] vascular vascular [facility] - disease disease [facility] Blood Blood Disease Active Overview: [facility] clotting clotting DVT [facility] - tendency tendency 09/2017 Medica l Center 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 Me dical Center Atrial Atrial Disease Active [facility] fibrillati fibrillati Karine kes - on on [facility] Thoracoabd Thoracoabd Disease Active [facility] St ominal ominal [facility] - aneurysm aneurysm Medica l Center Abdominal Abdominal Disease Active [facility] aortic aortic [facility] - aneurysm aneurysm Medica l (AAA) (AAA) Center DVT (deep DVT (deep Disease Active [facility] venous venous [facility] - thrombosis thrombosis Me dical ) ) [place] Essential Problem Active 2020-12-01 Me moria tremor 01:14:44 l (disorder) [place] Essential tremor (disorder) Active Problem 12/01/2020 [facility] Neuro Subdural Problem Active 2020-12-01 Mem oria hematoma 01:14:44 l (disorder) Subdural He rmann hematoma (disorder) Active Problem 12/01/2020 [facility] Neuro,[facility] Coxitis Problem Active 2020-12-01 Micah taylor (disorder) 01:14:44 l Coxitis [place] (disorder) Active Problem 12/01/2020 [facility] Neuro Lumbar Problem Active 2020-12-01 Memor ia radiculopa 01:14:44 l thy Lumbar Jevon (disorder) radiculopa thy (disorder) Active Problem 12/01/2020 [facility] Neuro NONTRAUMAT Diagnosis Active 2016-06-05 Memoria IC 23:20:00 l SUBDURAL Jevon HEMORRHAGE NONTRAUMAT , UNSPEC IC SUBDURAL HEMORRHAGE , UNSPEC Active [facility] Allergies, Adverse Reactions, Alerts Allergy Allergy Status Severity Reaction(s) Onset Inactive Treating Comm ents Source Name Type Date Date Clinician No Known No Known Active Memori a Medicati Medicati l on on Jevon Allergie Allergie s s Social History Social Habit Start Date Stop Date Quantity Comments Source History of tobacco Current smoker Jose D guerra Sabianism use Cigarettes smoked 2019-06-10 2019-06-10 Mumtaz Sabianism current (pack per 00:00:00 00:00:00 day) - Reported Cigarette 2019-06-10 2019-06-10 Mumtaz Celis ist pack-years 00:00:00 00:00:00 Tobacco use and 2019-06-10 2019-06-10 Never used Mumtaz Pettit ethodist exposure 00:00:00 00:00:00 Alcohol intake 2019-06-10 2019-06-10 Ex-drinker Mumtaz Peng thodist 00:00:00 00:00:00 (finding) Alcohol Comment 2019-05-27 2019-05-27 quit ~2004 Mumtaz Pettit ethodist 00:00:00 00:00:00 Tobacco Comment 2017-12-09 2017-12-[address] Karine kes - 00:00:00 00:00:00 Medical Center Sex Ass[birth year] At [birth year] Mumtaz Pettit ethodist 00:00:00 00:00:00 Smoking Status Start Date Stop Date Source Social History 2020-11-01 21:07:23 2020-11-01 21:07:23 [facility] Medications Ordered Filled Start Stop Current Ordering Indication Dosage Frequency Signature Comments Components Source Medication Medication Date Date Medication? Clinician (SIG) Name Name gabapentin Yes 300 mg = 1 M emoria 300 MG Oral 3-25 cap, PO, l Capsule 21:18: BID, # 60 Saksia nn 00 cap, 5 Refill(s), Pharmacy: [facility] [place], 65.455, kg, 11/01/20 16:06:00 CDT, Weight primidone Yes See Memoria 250 mg oral 3-25 Instructio l tablet 21:18: ns, TAKE [place] 00 ONE (1) TABLET(S) BY MOUTH ONCE A DAY., # 30 ea, 5 Refill(s), Pharmacy: [facility], 65.455, kg, 11/01/20 16:06:00 CDT, Weight topiramate Yes = 1 tab, Mem oria 100 mg oral 3-25 PO, BID, # l tablet 21:18: 60 ea, 5 Jevon 00 Refill(s), Pharmacy: [facility] [place], 65.455, kg, 11/01/20 16:06:00 CDT, Weight gabapentin Yes 300 mg = 1 M emoria 300 MG Oral 5-07 cap, PO, l Capsule 15:51: BID, # 60 [place] nn 00 cap, 5 Refill(s), Pharmacy: [facility] [place] gabapentin Yes See Memoria 300 MG Oral 4-03 Instructio l Capsule 14:22: ns, # 90 [place] n 27 ea, Refill(s) 1, TAKE ONE (1) CAPSULE(S) BY MOUTH AT BEDTIME., Pharmacy: [facility] [place] CHOLECALCIF 2018-08 Yes QD Take by Rodolfo [...] 2.5 mg 00:00: st tablet 00 gabapentin 2019-0 Yes QD nightly. Rodolfo concepcion (NEURONTIN) 8-22 Methodi 300 mg 00:00: st capsule 00 amitriptyli 2019-0 Yes QD nightly. Jose D kim (ELAVIL) 7-04 Methodi 75 MG 00:00: st tablet 00 GABAPENTIN 2018- Yes = 1 cap, Mem oria CAP 300MG 5-28 PO, l 14:33: Bedtime, # [place] 53 30 ea, Refill(s) 5, Pharmacy: [facility] gabapentin Yes 300 mg = 1 M emoria 300 MG Oral 1-08 cap, PO, l Capsule 23:41: Bedtime, # Herm francisco 00 30 cap, 3 Refill(s), Pharmacy: [facility] amitriptyli Yes 75 mg = 1 M [...] tab, [place] 26 9 Refill(s), Pharmacy: [facility] topiramate Yes 100 mg = 1 M emoria 100 mg oral 1-04 tab, PO, l tablet 22:35: BID, # 60 [place] 00 tab, 9 Refill(s), Pharmacy: [facility] honey 100 % Yes 1{appli QD Apply [...] 03 daily. Center unit Tab tablet albuterol 2017-0 Yes 1{puff} Inhale [address] HFA 8-20 puff by [facility] - (VENTOLIN 19:24: mouth via Med ical HFA) 90 03 inhaler Center mcg/actuati every 6 on inhaler (six) hours as needed for Wheezing. atorvastati 2017-0 Yes 10mg QD Take [address] n (LIPITOR) 8-20 by mouth Luke s - 10 MG 19:24: daily. Medical tablet 03 Center lisinopril 0 Yes 40mg QD Take [address] (PRINIVIL,Z 8-20 by mouth Luke s - ESTRIL) 40 19:24: daily. Medic al MG tablet 03 Center amitriptyli 0 Yes 50mg QD Take [address] ne (ELAVIL) 8-20 by mouth Luke s - 50 MG 19:24: nightly. Medical tablet 03 Center fluticasone 0 Yes 1{puff} QD Inhale [address] -vilanterol 8-20 puff by [facility] - (BREO 19:24: mouth via Medical ELLIPTA) 03 inhaler Center 200-25 daily. mcg/dose DsDv tiZANidine 0 Yes 4mg Take [address] (ZANAFLEX) 8-20 by mouth 3 Hasmukh es - 4 MG tablet 19:24: (three) Med ical 03 times Center daily as needed. primidone 2017-0 Yes 250mg QD Take [address] (MYSOLINE) 8-20 mg by [facility] - 250 MG 19:24: mouth Medical tablet 03 daily. [place] topiramate 0 Yes 100mg Q.5D Take [address] (TOPAMAX) 8-20 mg by [facility] - 100 MG 19:24: mouth 2 Medical tablet 03 (two) Center times daily. warfarin 2018-0 Yes 9mg QD Take [address] (COUMADIN) 8-20 by mouth [facility] - 10 MG 19:24: daily. Medical tablet 03 Center tamsulosin 0 Yes .4mg QD Take 1 [facility] [...] 00:00: mouth st tablet 00 nightly. HYDROcodone Yes 4 times Rodolfo ston -acetaminop 3-07 daily as Meth jessica hen (NORCO) 00:00: needed. st 10-325 mg 00 per tablet fentaNYL Yes Every 48 [place] on (DURAGESIC) 2-19 hrs Methodi 100 mcg/hr 00:00: st 00 Warfarin 2015-08 Yes 5 mg = 1 Memor ia Sodium 5 MG 0-21 tab, PO, l Oral Tablet 14:27: Daily, INR Jevon [Coumadin] 00 goal 2-3, # 30 tab, 0 Refill(s) tamsulosin 2015-08 Yes 0.8 mg = 2 M emoria 0.4 mg oral 0-21 cap, PO, l capsule 14:27: Daily, 0 [place] 00 Refill(s) Levetiracet 2015-08 Yes 1,500 mg = Memoria am 500 MG 0-21 3 tab, PO, l Oral Tablet 14:27: [id number], # Jevon 00 90 tab, 0 Refill(s) Docusate 2015-08 Yes 100 mg = 1 Mem oria Sodium 100 0-21 cap, PO, l MG Oral 14:27: Q12H, # 20 Herm francisco Capsule 00 cap, 0 Refill(s) phenol 2015-08 No Notes: Memoria 0-21 Chlorasept l 03:35: ic [place] 00 (Same as: Chlorasept ic, Sore Throat [place]) WASTE: F/P - Black; E - Municipal [...] No Notes: Memoria 0-20 (Same l 11:00: as:Kathryn) Coumadin 2015-08 No Notes: Memoria 0-19 Nurse [...] Memoria 0-19 Route: PO, l 14:00: Daily, Dosing Weight 76.36, kg, Start date: 05/28/16 9:00:00 CDT, Duration: 30 day, Stop date: 06/26/16 9:00:00 POWER DISTRIBUTOR Remeron 2015-08 No Notes: Memoria 0-19 (Same l 02:00: as:Remeron ) ibuprofen 2015-08 No Notes: Memori a 100 mg/5 mL 0-18 (Same as: l oral 20:00: Motrin [place] suspension 00 Children's , Advil Children's ) [...] 0-18 Route: l 0.1 MG/HR 14:00: TOP, Jevon Transdermal 00 Dosing Patch Weight 76.36, kg, Daily, Start date: 05/27/16 9:00:00 CDT, Duration: 30 day, Stop date: 06/25/16 9:00:00 POWER DISTRIBUTOR Lisinopril 2015-08 No 40 mg, Memor ia 0-18 Route: PO, l 14:00: Drug form: Jevon 00 TAB, Daily, Dosing Weight 76.36, kg, Start date: 05/27/16 9:00:00 CDT, Duration: 30 day, Stop date: 06/25/16 9:00:00 POWER DISTRIBUTOR Miralax 2015-08 No Notes: Memoria 0-18 Dissolve l 14:00: in 8 oz of Jevon 00 water or juice. (Same as: Miralax) remove 2015-08 No Notes: Memoria patch 0-18 Remove old l 14:00: patch Jevon 00 before applicatio n of new patch. WASTE: F/P - P Waste Black; E - P Waste Black Keppra 2015-08 No Notes: Memoria 0-18 Same as l 12:25: Keppra Jevon 00 Mix with 100 mL NS, LR or D5W MEDICATION WASTE Product Size: 500 mg Product Wasted: ___ mg Keppra 2015-08 No Notes: Memoria 0-18 Same as l 09:00: Keppra [place] 00 Mix with 100 mL NS, LR or D5W MEDICATION WASTE Product Size: 500 mg Product Wasted: ___ mg Hydralazine 2015-08 No Notes: Micah taylor 0-18 (Same as: l 08:23: Apresoline [place] 00 ) Push over 5 minutes heparin 2015-08 No Notes: Memoria 0-18 porcine l 05:00: heparin [place] 00 Fentanyl 2015-08 No Notes: Memoria 0-18 (Same as: l 04:47: Sublimaze) [place] 00 Preservat emanuel free. Lisinopril 2015-08 No Notes: [...] l / 21:26: Duoneb) Jevon Ipratropium 00 [place] 0.167 MG/ML Inhalant Solution [DuoNeb] mirtazapine 2015-08 Yes 7.5 mg = 1 Memoria 7.5 mg oral 0-17 tab, PO, l tablet 19:52: Bedtime, # [place] nn 00 30 tab, 1 Refill(s) Eszopiclone 2015-08 Yes 1 mg = 1 Me moria 1 MG Oral 0-17 tab, PO, l Tablet 19:52: Bedtime, [place] [Lunesta] 00 PRN for insomnia, # 30 tab, 0 Refill(s) Trazodone 2015-08 No 50 mg = 1 Mem oria Hydrochlori 0-17 tab, PO, l de 50 MG 19:52: TID, # 90 Herm francisco Oral Tablet 00 tab, 0 Refill(s) Acetaminoph 2015-08 Yes 1 tab, PO, Memoria en 325 MG / 0-17 TID, PRN l Hydrocodone 19:52: Pain, # 60 [place] Bitartrate 00 tab, 0 10 MG Oral Refill(s) Tablet [[place] 10/325] lisinopril 2015-08 Yes 40 mg = 1 Me moria 40 mg oral 0-17 tab, PO, l tablet 19:52: Daily, 0 Jevon 00 Refill(s) 12 HR 2015-08 Yes 0.1 mg = 1 Memori a Clonidine 0-17 tab, PO, l Hydrochlori 19:52: Bedtime, # [place] de 0.1 MG 00 30 tab, 0 Extended Refill(s) Release Tablet 72 HR 2015-08 Yes 1 patch, Memoria Fentanyl 0-17 TOP, Q48H, l 0.1 MG/HR 19:52: # 15 Jevon Transdermal 00 patch, 0 Patch Refill(s) [Duragesic] [...] tab, PO, l Coated 19:52: Daily, # [place] Tablet 00 90 tab, 3 Refill(s) Vitamin D3 2015-08 Yes 400 Memoria 400 intl 0-17 IntlUnit = l units oral 19:52: 1 cap, PO, H ermann capsule 00 Daily, 0 Refill(s) 200 ACTUAT 2015-08 Yes 2 puff, Micah taylor Albuterol 0-17 INHALER, l 0.09 19:52: Q6H, PRN [place] MG/ACTUAT 00 for Metered wheezing, Dose # 8.5 gm, Inhaler 0 [ProAir Refill(s) HFA] Keppra 2015-08 No Notes: Memoria 0-17 Same as l 17:59: Keppra Jevon 00 Mix with 100 mL NS, LR or D5W MEDICATION WASTE Product Size: 500 mg Product Wasted: ___ mg Hydralazine 2015-08 No Notes: Micah taylor 0-17 (Same as: l 15:14: Apresoline Jevon 00 ) Push over 5 minutes Nicotine 2015-08 No Notes: Memoria 0-17 (Same as: l 14:00: Habitrol) Jevon 00 "Remove old patch before applicatio n of new patch" WASTE: F/P - P Waste Black; E - P Waste Black Keppra + 2015-08 No Notes: Memoria sodium 0-17 Same as l chloride 06:57: Keppra Jevon 0.9% INJ 00 Mix with 100 mL 100 mL NS, LR or D5W MEDICATION WASTE Product Size: 500 mg Product Wasted: __0_ mg Keppra 2015-08 No 500 mg, Memoria 0-17 Route: l 06:28: IVPB, [place] 00 Q24H, Dosing Weight 76.36, kg, Priority: STAT, Start date: 05/26/16 1:28:00 CDT, Duration: 30 day, Stop date: 06/24/16 1:28:00 POWER DISTRIBUTOR sodium 2015-08 No 1,000 mL, Memori a chloride 0-17 Rate: 50 l 0.9% 1000 02:30: ml/hr, [place] ml INJ 00 Infuse 1,000 mL over: 20 hr, Route: IV, Dosing Weight 76.36 kg, Total Volume: 1,000, Start date: 05/25/16 21:30:00 CDT, Duration: 30 day, Stop date: 06/24/16 21:29:00 POWER DISTRIBUTOR Acetaminoph 2015-08 No Notes: Micah taylor en 325 MG / 0-17 (Same as: l Hydrocodone 01:00: [place] nn Bitartrate 00 325/5) Do 5 MG Oral not exceed Tablet 4gm/day of [[place] acetaminop 5/325] hen. Tylenol 2015-08 No Notes: Do Memor ia 0-17 not exceed l 00:38: 4 gm/day. Jevon 00 (Same as: Tylenol) Albuterol 2015-08 No Notes: SEE Me moria 0.83 MG/ML 0-16 RT l Inhalant 21:04: DOCUMENTAT Her mackenzie Solution 00 ION (Same as: Proventil) Ancef + 2015-08 No Notes: Memoria sodium 0-16 (Same As: l chloride 21:00: Ancef, [place] 0.9% INJ 00 Kefzol) 100 mL MEDICATION [...] Duration: 30 day, Stop date: 06/24/16 15:56:00 POWER DISTRIBUTOR Ancef 2015-08 No 2 gm, Memoria 0-16 Route: l 19:15: IVPB, [place] 00 ONCE, Dosing Weight 76.36, kg, Start date: 05/25/16 14:15:00 CDT, Duration: 1 doses or times, Stop date: 05/25/16 14:15:00 CDT Streptococc 2015-08 No Notes: Micah taylor us 0-16 Lightly l pneumoniae 14:00: roll vial He rmann serotype 1 00 (DO NOT capsular SHAKE) antigen before diphtheria administra [id number] tion. protein (Same as: conjugate Prevnar vaccine / 13) Streptococc us pneumoniae serotype 14 capsular antigen diphtheria [id number] protein conjugate vaccine / Streptococc us pneumoniae [...] taylor am 0-16 (Same l 14:00: as:Keppra) Jevon 00 Docusate 2015-08 No Notes: Memoria 0-16 (Same as: l 14:00: Colace) [place] 00 (Do Not Crush) sennosides, 2015-08 No Notes: Micah taylor FPC 0-16 (Same as: l 14:00: Senokot) [place] 00 Flomax 2015-08 No Notes: Memoria 0-16 (Same As: l 11:11: Flomax) Jevon 00 "Do Not Crush" Dexamethaso 2015-08 No Notes: Micah taylor ne 0-16 Concentrat l 10:39: ion: [place] 00 4mg/ml Mannitol 2015-08 No Notes: Memoria 0-16 (Same as: l 10:16: Osmitrol) [place] 00 Infuse through 5 micron or smaller [...] Oxide 0-16 (Same as: l 04:11: Mag-Ox Jevon 00 400) Magnesium oxide [id number] g elemental magnesium Dose=____m g magnesium oxide (___mg elemental magnesium) Magnesium 2015-08 No Notes: Memori a Sulfate 0-16 WASTE: F/P l 04:11: - Sink; E Jevon 00 - Municipal Trash Bin Calcium 2015-08 No Notes: Memoria Carbonate 0-16 (Same As: l 500 MG 04:11: Tums) [place] Chewable 00 Calcium Tablet Carbonate 500 mg = 200 mg elemental calcium Dose = mg calcium carbonate ( mg elemental calcium) Calcium 2015-08 No Notes: Memoria Gluconate 0-16 WASTE: F/P l 04:11: - Sink; E [place] 00 - Municipal Trash Bin potassium 2015-08 No Notes: Memori a phosphate-s 0-16 (Same as: l odium 04:11: Phos-NaK) Jevon phosphate 00 Each 1.5 250 mg-280 gm pkt has mg-160 mg 250mg oral powder phosphorou for s. Mix reconstitut w/2.5oz ion water and stir. potassium 2015-08 No Notes: Memori a phosphate + 0-16 (Same as: l sodium 04:11: K [place] chloride 00 Phosphate. 0.9% INJ ) 1 mMol 250 mL phoshate has 1.47 mEq potassium Infuse over 4 hours sodium 2015-08 No 45 mmol, Memoria phosphate + 0-16 15 mL, l sodium 04:11: Route: Jevon chloride 00 IVPB, PRN, 0.9% INJ Dosing 250 mL Weight 76.364, kg, PRN Abnormal Lab Result, Start date: 05/24/16 23:11:00 CDT, Duration: 30 day, Stop date: 06/23/16 22:10:00 POWER DISTRIBUTOR, FOR ICU USE ONLY potassium 2015-08 No Notes: Memori a chloride 0-16 (Same as: l 04:11: KCL) Jevon 00 Infuse over 2 hours. iodixanol 2015-08 No 60 mL, Memori a 0-16 Route: l 03:50: IVP, Drug [place] 00 Form: SOLN, Dosing Weight 76.364, kg, [...] Syringe 0-16 12.5 mL, l 03:17: Route: [place] 00 IVP, Drug Form: INJ, Dosing Weight 76.364, kg, PRN, PRN Abnormal Lab Result, Start date: 05/24/16 22:17:00 CDT, Duration: 30 day, Stop date: 06/23/16 21:16:00 POWER DISTRIBUTOR Saline 2015-08 No Notes: Memoria Flush 0.9% 0-16 (Same as: l 03:17: BD [place] 00 Posiflush) Bisacodyl 2015-08 No Notes: Memori a 0-16 (Same As: l 03:17: Dulcolax, [place] 00 Bisco-Lax) Ondansetron 2015-08 No Notes: Micah taylor 0-16 (Same as: l 03:17: Zofran) Jevon 00 MEDICATION WASTE Product Size: 4 mg Product Wasted: _0__ mg Acetaminoph 2015-08 No Notes: Do M emoria en 325 MG / 0-16 not exceed l Hydrocodone 03:17: 4gm/day of [place] Bitartrate 00 acetaminop 10 MG Oral hen. Tablet (Same as: [place] 325/10) Levetiracet 2015-08 No Notes: Micah taylor am 0-16 Same as l 03:17: Keppra Jevon 00 Mix with 100 mL NS, LR or D5W MEDICATION WASTE Product Size: 500 mg Product Wasted: __0_ mg Sodium 2015-08 No 1,000 mL, Memori a Chloride 0-16 Rate: 75 l 0.154 03:17: ml/hr, Jevon MEQ/ML 00 Infuse Injectable over: 13.3 Solution hr, Route: IV, Dosing Weight 76.364 kg, Total Volume: 1,000, Start date: 05/24/16 22:17:00 CDT, Duration: 30 day, Stop date: 06/23/16 22:16:00 POWER DISTRIBUTOR Acetaminoph 2015-08 No Notes: Micah taylor en 325 MG / 0-16 (Same as: l Hydrocodone 03:17: [place] nn Bitartrate 00 325/5) Do 5 MG Oral not exceed Tablet 4gm/day of acetaminop hen. Saline 2015-08 No Notes: Memoria Flush 0.9% 0-16 (Same as: l 01:56: BD [place] 00 Posiflush) Zanaflex Zanaflex Yes Home [address] [place] [facility] Lipitor Lipitor Yes Home [address] [facility] [place] [facility] Breo Breo Yes Home [address] [facility] Ellipta Ellipta [place] [facility]ics Aspir-81 Aspir-81 Yes Home [address] [place] [facility] ProAir HFA ProAir HFA Yes Home [address] [facility] [place] [facility] Prilosec Prilosec Yes Home [address] [facility] [place] [facility] Amlodipine Amlodipine Yes Home [address] [facility] Besylate Besylate [place] [facility] Amlodipine Amlodipine Yes Home TAKE ONE [facility] Besylate Besylate [place] (1) [facility] - TABLET(S) Memoria BY MOUTH l TWICE [facility] DAY. ent Clinics Atorvastati Atorvastati Yes Home TAKE ONE [facility] n Calcium n Calcium [place] (1) Luke s - TABLET(S) Memoria BY MOUTH l NIGHTLY. [facility] Clonidine Clonidine Yes Home [address] [facility] HCl HCl [place] at bedtime [facility] Lisinopril Lisinopril Yes Home [address] [facility] [place] [facility] Warfarin Warfarin Yes Home 1 tablet ( [facility] Sodium Sodium [place] 4 mg + 3 [facility] mg) [facility] Primidone Primidone Yes Home [address] [facility] [place] [facility] Ferrous Ferrous Yes Home TAKE ONE [facility] Sulfate Sulfate [place] (1) [facility] - TABLET(S) Memoria BY MOUTH l TWICE [facility] DAY WITH ent MEALS. Clinics Amitriptyli Amitriptyli Yes Home [address] [address] ne HCl ne HCl [place] [facility] Topamax Topamax Yes Home [address] [facility] [place] [facility] Warfarin Warfarin Yes Home [address] Sodium Sodium [place] [facility] Vitamin D3 Vitamin D3 Yes Home [address] [facility] [place] [facility] Immunizations Ordered Immunization Filled Immunization Date Status Commen ts Source Name Name FLUZONE HIGH-DOSE PF 2019-06-17 Completed [place] 00:00:00 Sabianism Vital Signs Vital Name Observation Time Observation Value Comments Source Systolic (mm Hg) 2020-11-01 21:06:00 Micah Escoto Diastolic (mm Hg) 2020-11-01 21:06:00 [facility] anna [place] Heart Rate 2020-11-01 21:06:00 [facility] [place] Respitory Rate 2020-11-01 21:06:00 Julian Goreann Weight 2020-11-01 21:06:00 [facility] [place] Heart Rate 2018-08-13 22:09:00 [facility] Jevon Respitory Rate 2018-08-13 22:09:00 Julian al [place] Systolic (mm Hg) 2018-08-13 22:09:00 Micah quintero [place] Diastolic (mm Hg) 2018-08-13 22:09:00 Mem martinezal Jevon BMI Calculated 2018-08-13 22:09:00 Julian Matos Height 2018-08-13 22:09:00 [facility] 2018-08-13 [facility] Systolic (mm Hg) 2016-05-30 16:34:00 Micah rial [place] Diastolic (mm Hg) 2016-05-30 16:34:00 Mem orial Jevon Temperature Oral (F) 2016-05-30 16:34:00 97.7 F [facility] [place] Heart Rate 2016-05-30 16:34:00 [facility] [place] Respitory Rate 2016-05-30 16:34:00 Memori al [place] Respitory Rate 2016-05-30 13:20:00 Memori al [place] Heart Rate 2016-05-30 13:20:00 [facility] [place] Systolic (mm Hg) 2016-05-30 13:20:00 Micah rial [place] Diastolic (mm Hg) 2016-05-30 13:20:00 Mem orial [place] Temperature Oral (F) 2016-05-30 13:20:00 97.8 F [facility] [place] Systolic (mm Hg) 2016-05-30 08:32:00 Micah rial [place] Diastolic (mm Hg) 2016-05-30 08:32:00 Mem orial [place] Temperature Oral (F) 2016-05-30 08:32:00 98.1 F [facility] [place] Respitory Rate 2016-05-30 08:32:00 Memori al [place] Heart Rate 2016-05-30 08:32:00 [facility] [place] BMI Calculated 2016-05-25 07:10:00 Memori al [place] Weight 2016-05-25 07:10:00 [facility] Jev[place] Height 2016-05-25 07:10:00 172.72 cm [facility] Weight 2016-05-25 01:40:00 [facility] BMI Calculated 2016-05-25 01:40:00 [facility] Height 2016-05-25 01:40:00 170.18 cm [facility] Procedures Procedure Date / Time Performed Performing Clinician [facility] e Abdominal aortic aneurysm [facility] stenting<sup>1</sup> Bypass / graft of vein [facility] Care Planned Activity Planned Date Details Comments Source Future Scheduled 2021-03-10 INFLUENZA VACCINE [place] [facility] 00:00:00 [code = INFLUENZA VACCINE] Future Scheduled 2020-08-[address] [facility] - Test 00:00:00 (12+) [code = Medical Center DEPRESSION SCREENING (12+)] Future Scheduled 2020-04-10 INFLUENZA VACCINE (#1) [facility]00 [code = INFLUENZA Medical Ce nter VACCINE (#1)] Future Scheduled 2008-02-22 65+ PNEUMOCOCCAL [facility] 00:00:00 VACCINE (2 of 2 - [...] Scheduled 1993 SHINGLES VACCINES (#1) [place] [facility] 00:00:00 [code = SHINGLES VACCINES (#1)] Future Scheduled 1993 SHINGLES VACCINES ([address] [facility] - Test 00:00:00 of 2) [code = SHINGLES Medic al Center VACCINES (1 of 2)] Future Scheduled 1962 DTAP/TDAP/TD VACCINES [facility] 00:[facility]:00 (1 - Tdap) [code = Medical C enter DTAP/TDAP/TD VACCINES (1 - Tdap)] Future Scheduled 1961 Hepatitis C screening [place] [facility] 00:00:00 (procedure) [code = 910131315] Future Scheduled 1961 HEPATITIS C SCRE[facility]ING [facility] 00:[facility]:00 [code = HEPATITIS C Medical Center SCREENING] Future Scheduled 1955 COVID-19 VACCINE (1) [place] [facility] [facility] 00:00:00 [code = COVID-19 VACCINE (1)] Encounters Start End Encounter Admission Attending Care Care Encounter Source Date/Time Date/Time Type Type Clinicians Facility Department ID 2021-01-08 2021-01-08 Outpatient [facility] [id number] 2020-12-05 2020-12-05 Outpatient [facility] [id number] [facility] 2020-11-27 2020-11-28 Outpatient MHMISCHER MHMISCHER [id number] 15:11:31 23:59:59 2020-11-01 2020-11-01 Outpatient Earl, MHMISCHER MHMISCHER [id number] 16:00:00 23:59:59 James Indigo Salvador 2020-10-23 2020-10-23 Outpatient [facility] [id number] [facility] 2020-10-18 2020-10-18 Outpatient Earl, MHMISCHER MHMISCHER [id number] 15:30:00 15:30:00 James 11 [place] 2020-10-12 2020-10-12 Outpatient Earl, MHMISCHER MHMISCHER [id number] 09:00:00 09:00:00 James 10 [place] 2020-07-03 2020-07-03 Outpatient [facility] [id number] [facility] 2020-06-19 2020-06-19 Outpatient Earl, MHMISCHER MHMISCHER [id number] 14:00:00 14:00:00 James 07 [place] 2020-06-19 2020-06-19 Outpatient Earl, MHMISCHER MHMISCHER [id number] 14:00:00 14:00:00 James 08 [place] 2020-06-07 2020-06-07 Outpatient [facility] [id number] [facility] 2020-05-30 2020-05-30 Outpatient [facility] [id number] 2020-03-05 2020-03-05 [facility] [id number] [facility] 13:30:00 13:30:00 [employer] [place] [employer] Outpati ent Clinics 2020-01-26 2020-01-26 [facility] [id number] 11:08:00 11:08:00 t Mentor Trendyta s - Jacked [facility] Outpati ent Clinics 2019-12-27 2019-12-27 [facility] [id number] 14:45:00 14:45:00 t Mentor Trendyta s - Jacked [facility] Outpat[facility] Clinics 2019-12-15 2019-12-15 Outpatient NELLY ElliottMISCHER MISCHER [id number] 10:45:00 23:59:59 James 06 [place] 2019-11-15 2019-11-15 Outpatient Earl, MISCHER MHMISCHER [id number] 09:15:00 09:15:00 James 05 [place] 2019-09-16 2019-09-16 [facility] [id number] 14:58:00 14:58:00 t Pharmacopeia s - Jacked [facility] 2019-09-14 2019-09-14 [facility] [id number] 14:45:00 14:45:00 t Mentor Trendyta s [employer] [facility] Out[facility] Clinics 2019-08-31 2019-08-31 Outpatient Earl PAMSCHER MISCHER [id number] 13:45:00 13:45:00 James 04 [place] 2019-08-19 2019-08-19 [facility] [id number] 14:49:00 14:49:00 t Mentor Trendyta s - Jacked [facility] Out[facility] Clin[facility] 2019-07-20 2019-07-20 [facility] [id number] 15:09:00 15:09:00 t Mentor Trendyta s - Jacked [facility] Clin[facility] 2019-06-30 2019-06-30 [facility] [id number] 08:49:00 08:49:00 t Mentor Trendyta s - Jacked [facility] Out[facility] Clin[facility] 2019-06-27 2019-06-27 [facility] [id number] 15:00:00 15:00:00 t Mentor Trendyta s [employer] [facility] Outpati ent Clinics 2019-06-08 2019-06-17 Inpatient [facility] [id number] [place] 00:00:00 00:00:00 DENZEL [facility] [facility] 2019-05-13 2019-05-13 Outpatient NELLY ElliottDCSCHER MHMISCHER [id number] 15:00:00 15:00:00 James 03 [place] 2019-03-15 2019-03-15 [facility] [id number] 16:15:00 16:15:00 t Mentor Trendyta s - Jacked [facility] Outpati ent Clinics 2019-02-22 2019-02-22 [facility] [id number] 10:56:00 10:56:00 [employer] [facility] Outpati ent Clinics 2019-01-21 2019-01-21 [facility] [id number] 16:26:00 16:26:00 [employer] [facility] Outpati ent Clinics 2018-12-07 2018-12-07 [facility] [id number] 14:15:00 14:15:00 t Specialty/U Karine kes - Specialty rology [facility] a /Urology Clinic l Clinic Outpati ent Clinics 2018-12-01 2018-12-01 [facility] [id number] [facility] 14:15:00 14:15:00 t Pharmacopeia s [employer] [facility] Outpati ent Clinics 2018-11-10 2018-11-10 [facility] [id number] 15:15:00 15:15:00 t Pharmacopeia s [employer] [facility] Outpati ent Clinics 2018-08-17 2018-08-18 Outpatient MHMISCHER MHMISCHER [id number] 15:18:00 23:59:59 02 2018-08-13 2018-08-13 Outpatient NELLY ElliottDCSCHER MHMISCHER [id number] 15:45:00 23:59:59 Jamesbarbi Salvador 2018-08-12 2018-08-12 [facility] [id number] 16:00:00 16:00:[address] [facility] - [address] [facility] Medicine l Medicine Outpati ent Clinics 2018-05-19 2018-05-19 [facility] [id number] 08:50:00 08:50:[address] [facility] - Drive [facility] Medicine l Medicine Outpati ent Clinics 2018-05-11 2018-05-11 [facility] [id number] 09:14:00 09:14:00 t Mentor Mentor Jacked [facility] - Drive [facility] Medicine l Medicine Outpati ent Clinics 2018-04-07 2018-04-07 [facility] [id number] [facility] 15:15:00 15:15:00 t Mentor Mentor Jacked [employer] - Drive [facility] Medicine Outpati ent Clinics 2018-04-05 2018-04-05 [facility] [id number] [facility] 10:00:00 10:00:00 t Mentor Mentor Jacked [employer] s - Drive [facility] Medicine Medicine Outpati ent Clinics 2018-03-31 2018-03-31 [facility] [id number] 09:00:00 09:00:00 t Mentor Mentor Jacked [facility] - [facility] Medicine l Medicine Outpati ent Clinics 2018-03-23 2018-03-23 [facility] [id number] 09:00:00 09:00:00 t Mentor Mentor Jacked [employer] s - Drive [facility] Medicine l Medicine Outpati ent Clinics 2018-03-04 2018-03-04 [facility] [id number] 16:21:00 16:21:00 t Mentor Mentor Jacked [facility] - [facility] Medicine l Medicine Outpati ent Clinics 2018-02-24 2018-02-24 [facility] [id number] 16:02:00 16:02:00 t Mentor Mentor Jacked [employer] s - Drive [facility] Medicine l Medicine Outpati ent Clinics 2018-02-24 2018-02-24 [facility] [id number] 14:30:00 14:30:00 t Mentor Mentor Jacked [employer] s - Drive [facility] Medicine l Medicine Outpati ent Clinics 2018-02-15 2018-02-15 [facility] [id number] 16:32:00 16:32:[address] [place] [facility] - Drive [facility] l Medicine Outpati ent Clinics 2018-01-01 2018-01-01 [facility] [id number] 10:03:00 10:03:[address] [facility] - Drive [facility] Medicine l Medicine Outpati ent Clinics 2017-12-30 2017-12-30 [facility] [id number] 16:56:00 16:56:[address] [place] [facility] - Drive [facility] Medicine l Medicine Outpati ent Clinics 2017-12-30 2017-12-30 [facility] [id number] 14:30:00 14:30:[address] [place] [facility] - [facility] Medicine l Medicine Outpati ent Clinics 2017-12-24 2017-12-24 [facility] [id number] 09:12:00 09:12:[address] [place] [facility] - Drive [facility] Medicine l Medicine Outpati ent Clinics 2017-12-22 2017-12-22 [facility] [id number] 08:18:00 08:18:[address] [facility] - [facility] Medicine l Medicine Outpati ent Clinics 2017-12-10 2017-12-10 [facility] [id number] 13:37:00 13:37:[address] [place] [facility] - Drive [facility] Medicine l Medicine Outpati ent Clinics 2017-12-03 2017-12-03 [facility] [id number] 15:29:00 15:29:[address] [place] [facility] - Drive [facility] Medicine l Medicine Outpati ent Clinics 2017-12-01 2017-12-01 [facility] [id number] 10:54:00 10:54:[address] [place] [facility] - Drive [facility] Medicine l Medicine Outpati ent Clinics 2017-11-13 2017-11-13 [facility] [id number] 12:22:00 12:22:[address] [place] [facility] - Drive [facility] Medicine l Medicine Outpati ent Clinics 2017-11-13 2017-11-13 [facility] [id number] 09:51:00 09:51:00 t Inhibitex [employer] s - Drive [facility] Outpati ent Clinics 2017-11-10 2017-11-10 [facility] [id number] 15:34:00 15:34:00 t Mentor Coupmon [employer] s - Drive [facility] Outpati ent Clinics 2017-11-04 2017-11-04 [facility] [id number] 15:30:00 15:30:00 t Pharmacopeia s - Drive [facility] 2016-05-24 2016-05-30 Outpatient Crescencio [facility] [id number] 20:36:00 11:59:00 Iramvirgilio Reid 67 Results Test Description Test Time Test Comments Results Result Comments Source AFB CULTURE + SMEAR 2018-05-02 20:50:00 Test Item Value Reference Range Interpretation Comme nts CULTURE (BEAKER) (test code = 1095) No acid-fast bacilli isolated i n 42 days AFB SMEAR (BEAKER) (test code = 994) No acid fast bacilli seen AFB CULTURE + [id number] 20:50:00 Test Item Value Reference Range Interpretation Comments CULTURE (BEAKER) (test No acid-fast bacilli code = 1095) isolated in 42 days AFB SMEAR (BEAKER) No acid fast bacilli (test code = 994) seen FUNGUS CULTURE + [id number] 10:14:00 Test Item Value Reference Range Interpretation Comments CULTURE (BEAKER) (test No fungus isolated in code = 1095) 28 days FUNGUS SMEAR (BEAKER) No fungi seen (test code = 1406) FUNGUS CULTURE + [id number] 10:14:00 Test Item Value Reference Range Interpretation Comments CULTURE (BEAKER) (test No fungus isolated in code = 1095) 28 days FUNGUS SMEAR (BEAKER) No fungi seen (test code = 1406) VANCOMYCIN LEVEL, [id number] 05:33:00 Test Item Value Reference Range Interpretation Comments VANCOMYCIN RANDOM (BEAKER) (test 16.9 ug/mL code = 523) Reference Range: No NormalsBASIC METABOLIC [id number] 05:29:00 Test Item Value Reference Range Interpretation [...] NOT APPLICABLE FOR DIALYSIS PATIEN TS. PROTHROMBIN TIME/[id number] 05:21:00 Test Item Value Reference Range Interpretation [...] NOT APPLICABLE FOR DIALYSIS PATIEN TS. ANAEROBIC [id number] 08:59:00 Test Item Value Reference Range Interpretation Comments CULTURE (BEAKER) (test No anaerobes isolated code = 1095) ANAEROBIC [id number] 08:58:00 Test Item Value Reference Range Interpretation Comments CULTURE (BEAKER) (test No anaerobes isolated code = 1095) VANCOMYCIN LEVEL, [id number] 05:18:00 Test Item Value Reference Range Interpretation Comments VANCOMYCIN RANDOM (BEAKER) (test 19.8 ug/mL code = 523) Reference Range: No NormalsPROTHROMBIN TIME/[id number] 04:55:00 Test Item Value Reference Range Interpretation [...] 10.0-20.0 H code = 522) BASIC METABOLIC [id number] 15:13:00 Test Item Value Reference Range Interpretation [...] NOT APPLICABLE FOR DIALYSIS PATIEN TS. PROTHROMBIN TIME/[id number] 06:16:00 Test Item Value Reference Range Interpretation [...] heart valves.While on warfarin.LACTIC ACID, VENOUS, WHOLE [id number] 06:09:00 Test Item Value Reference Range Interpretation Comments LACTATE BLOOD VENOUS (2) (BEAKER) 0.6 mmol/L 0.5-2.2 (test code = 2872) Effective 12/12/2015: Units/Reference Range ChangeNew: 0.5-2.2 mmol/L Previous: 5-20 mg/dLTISSUE [id number] 11:35:00Surgical Pathology Report Case: [id number] Authorizing Provider: Aris Parker MD Collected: 03/23/2018 1136 Ordering Location: [facility] Received: 03/23/2018 1158 PERIOPERATIVE SERVICES Pathologist: Lanie Jaquez MD Specimen: Groin, Right, Right Groin Tissue SOFT TISSUE, RIGHT GROIN, DEBRIDEMENT: - FIBROADIPOSE TISSUE WITH FAT NECROSIS, ACUTE AND CHRONIC INFLAMMATION, AND FOREIGN BODY GIANT CELL REACTION Signing Pathologist Direct Phone Line: [phone] signed by Lanie Jaquez MD on 03/26/2018 at 11:35 [id number] groin tissueThe specimen is received in a formalin-filled container and labeled with the patient's information and labeled "right groin tissue" and consists of a segment of rodríguez-chapman hemorrhagic soft tissue measuring 3 x 1.6 x 0.5 cm. Housekeeper sections are submitted A1.CG/pl Performed.SURGICALLY OBTAINED CULTURE + GRAM [id number] 09:47:00 Test Item Value Reference Range Interpretation Comments GRAM STAIN RESULT (BEAKER) <1+ WBCs (test code = 1123) GRAM STAIN RESULT (BEAKER) No organisms seen (test code = 49645) SURGICALLY OBTAINED CULTURE + GRAM [id number] 09:45:00 Test Item Value Reference Interpretation Comments [...] No organisms seen (BEAKER) (test code = 430833) BASIC METABOLIC [id number] 05:17:00 Test Item Value Reference Range Interpretation [...] NOT APPLICABLE FOR DIALYSIS PATIEN TS. PROTHROMBIN [id number] 05:06:00 Test Item Value Reference Range Interpretation [...] NOT APPLICABLE FOR DIALYSIS PATIEN TS. PROTHROMBIN TIME/[id number] 06:28:00 Test Item Value Reference Range Interpretation [...] valves.While on warfarin.CBC W/PLT COUNT & AUTO [id number] 06:18:00 Test Item Value Reference Range Interpretation [...] (BEAKER) (test code = 2801) VANCOMYCIN LEVEL, [id number] 17:22:00 Test Item Value Reference Range Interpretation Comments VANCOMYCIN TROUGH (BEAKER) (test 14.6 ug/mL 10.0-20.0 code = 522) SPIN/CONCENTRATION [id number] 10:53:00 Test Item Value Reference Range Interpretation Comments CONCENTRATION CHARGED (BEAKER) (test Done code = 6217) BASIC METABOLIC [id number] 07:34:00 Test Item Value Reference Range Interpretation [...] NOT APPLICABLE FOR DIALYSIS PATIEN TS. PROTHROMBIN TIME/[id number] 07:05:00 Test Item Value Reference Range Interpretation [...] (BEAKER) (test code = 2801) BASIC METABOLIC [id number] 06:54:00 Test Item Value Reference Range Interpretation [...] NOT APPLICABLE FOR DIALYSIS PATIEN TS. PROTHROMBIN TIME/[id number] 05:47:00 Test Item Value Reference Range Interpretation [...] PERCENT (BEAKER) (test code = 2801) TISSUE [id number] 16:28:00Surgical Pathology Report Case: [id number] Authorizing Provider: Christian Hdz MD Collected: 02/02/20181941 Ordering Location: [facility] Received: 02/03/2018 0813 Pathologist: Sidney Wright MD Specimen: Plaque ARTERY, RIGHT EMERALD, ENDARTERECTOMY:CALCIFIC ATHEROSCLEROTIC PLAQUE WITH EROSION AND ATTACHED ORGANIZING THROMBUS Signing Pathologist Direct Phone Line: [phone] signed by Sidney Wright MDon 02/09/2018 at 4:28 [id number] femoral artery plaqueRight femoral artery plaqueThe specimen is received in a formalin-filled container and labeled with the patient's information and labeled "right femoral artery plaque and consists of two calcified fragments of tissue both measuring 2 cm in length ranging in diameter from 0.6 to 1 cm and separate segment of hemorrhagic calcified tissue measuring 2.5 x 1.5 x 1 cm in aggregate. Housekeeper sections are submitted A1 for decalcification. CG/pl [id number] 06:08:00 Test Item Value Reference Range Interpretation Comments PHOSPHORUS (BEAKER) (test code = 2.2 mg/dL 2.3-4.7 L 604) [id number] 06:08:00 Test Item Value Reference Range Interpretation Comments MAGNESIUM (BEAKER) (test code = 2.1 mg/dL 1.6-2.6 627) BASIC METABOLIC [id number] 06:08:00 Test Item Value Reference Range Interpretation Comments SODIUM (BEAKER) 131 meq/L 136-145 L (test code = 381) POTASSIUM (BEAKER) 3.5 meq/L 3.5-5.1 (test code = 379) CHLORIDE (BEAKER) 101 meq/L 98-107 (test code = 382) CO2 (BEAKER) (test 26 meq/L -29 code = 355) BLOOD UREA NITROGEN 12 [...] (BEAKER) (test code = 413) HEMOGLOBIN AND [id number] 11:55:00 Test Item Value Reference Range Interpretation Comments HEMOGLOBIN (BEAKER) (test code = 8.4 GM/DL 13.7-17.5 L 410) HEMATOCRIT (BEAKER) (test code = 28.9 % 40.1-51.0 L 411) [id number] 04:57:00 Test Item Value Reference Range Interpretation Comments PHOSPHORUS (BEAKER) (test code = 2.5 mg/dL 2.3-4.7 604) [id number] 04:57:00 Test Item Value Reference Range Interpretation Comments MAGNESIUM (BEAKER) (test code = 1.7 mg/dL 1.6-2.6 627) BASIC METABOLIC [id number] 04:57:00 Test Item Value Reference Range Interpretation [...] = 413) CBC W/PLT COUNT & AUTO [id number] 15:56:00 Test Item Value Reference Range Interpretation [...] (BEAKER) (test code = 2801) COMPREHENSIVE METABOLIC [id number] 05:49:00 Test Item Value Reference Range Interpretation [...] S NOT APPLICABLE FOR DIALYSIS PATIEN TS. [id number] 05:48:00 Test Item Value Reference Range Interpretation Comments PHOSPHORUS (BEAKER) (test code = 2.9 mg/dL 2.3-4.7 604) [id number] 05:48:00 Test Item Value Reference Range Interpretation Comments MAGNESIUM (BEAKER) (test code = 1.7 mg/dL 1.6-2.6 627) CBC W/PLT COUNT & AUTO [id number] 04:20:00 Test Item Value Reference Range Interpretation [...] (BEAKER) (test code = 2801) VANCOMYCIN LEVEL, [id number] 23:58:00 Test Item Value Reference Range Interpretation Comments VANCOMYCIN TROUGH (BEAKER) (test code < ug/mL 10.0-20.0 L = 522) PROTHROMBIN [id number] 23:27:00 Test Item Value Reference Range Interpretation Comments PROTIME (BEAKER) (test code = 15.6 seconds 11.7-14.7 H 759) INR (BEAKER) (test code = 370) 1.2 <=5.9 RECOMMENDED COUMADIN/WARFARIN INR THERAPY RANGESSTANDARD DOSE: 2.0 - 3.0 Includes: PROPHYLAXIS forvenous thrombosis, systemic embolization; TREATMENT for venous thrombosis and/or pulmonary embolus.HIGH RISK: Target INR is 2.5-3.5 for patients with mechanical heart valves.[id number] 23:27:00 Test Item Value Reference Range Interpretation Comments FIBRINOGEN LEVEL (BEAKER) (test 276 mg/dl 225-434 code = 658) [id number] 23:27:00 Test Item Value Reference Range Interpretation Comments PARTIAL THROMBOPLASTIN TIME 29.8 seconds 22.5-36.0 (BEAKER) (test code = 760) CBC W/PLT COUNT & AUTO [id number] 23:22:00 Test Item Value Reference Range Interpretation [...] 0-1 PERCENT (BEAKER) (test code = 2801) [id number] 23:21:00 Test Item Value Reference Range Interpretation Comments PHOSPHORUS (BEAKER) (test code = 3.1 mg/dL 2.3-4.7 604) [id number] 23:21:00 Test Item Value Reference Range Interpretation Comments MAGNESIUM (BEAKER) (test code = 1.7 mg/dL 1.6-2.6 627) BASIC METABOLIC [id number] 23:21:00 Test Item Value Reference Range Interpretation [...] APPLICABLE FOR DIALYSIS PATIEN TS. HEPATIC FUNCTION [id number] 23:21:00 Test Item Value Reference Range Interpretation [...] U/L 6-55 347) LACTIC ACID, ARTERIAL, WHOLE [id number] 23:15:00 Test Item Value Reference Range Interpretation Comments LACTATE BLOOD ARTERIAL (2) 1.7 mmol/L 0.5-2.2 (BEAKER) (test code = 2874) Effective 12/12/2015: Units/Reference Range ChangeNew: 0.5-2.2 mmol/L Previous: 5-20 mg/dLRAD, CHEST, 1 VIEW, NON [id number] 23:12:00Reason for exam:- >s/p cardiac surgeryShould this [...] MDReport Verified Date/Time: 02/02/2018 23:12:37 Reading Location: [facility] [id number] Consult Reading Room Electronicallysigned by: DENZEL HUITRON MD on 02/02/2018 11:12 PMHEMOGLOBIN AND [id number] 23:06:00 Test Item Value Reference Range Interpretation Comments HEMOGLOBIN (BEAKER) (test code = 11.3 GM/DL 13.7-17.5 L 410) HEMATOCRIT (BEAKER) (test code = 37.7 % 40.1-51.0 L 411) CALCIUM, [id number] 22:57:00 Test Item Value Reference Range Interpretation Comments CALCIUM IONIZED (BEAKER) (test 1.02 mmol/L 1.12-1.27 L code = 698) PH, BLOOD (BEAKER) (test code = 7.38 1810) OXYGEN SATURATION, [id number] 22:56:00 Test Item Value Reference Range Interpretation Comments O2 SATURATION (MEASURED) (BEAKER) 72.2 % (test code = 1455) PROTHROMBIN [id number] 19:20:00 Test Item Value Reference Range Interpretation Comments PROTIME (BEAKER) (test code = 17.6 seconds 11.7-14.7 H 759) INR (BEAKER) (test code = 370) 1.5 <=5.9 RECOMMENDED COUMADIN/WARFARIN INR THERAPY RANGESSTANDARD DOSE: 2.0 - 3.0 Includes: PROPHYLAXIS forvenous thrombosis, systemic embolization; TREATMENT for venous thrombosis and/or pulmonary embolus.HIGH RISK: Target INR is 2.5-3.5 for patients with mechanical heart valves.[id number] 19:20:00 Test Item Value Reference Range Interpretation Comments FIBRINOGEN LEVEL (BEAKER) (test 240 mg/dl 225-434 code = 658) [id number] 19:20:00 Test Item Value Reference Range Interpretation Comments PARTIAL THROMBOPLASTIN TIME 33.3 seconds 22.5-36.0 (BEAKER) (test code = 760) PLATELET [id number] 19:00:00 Test Item Value Reference Range Interpretation Comments PLATELET COUNT (BEAKER) (test 149 K/CU MM 150-450 L code = 756) POTASSIUM-STAT [id number] 18:54:00 Test Item Value Reference Range Interpretation Comments POTASSIUM (BEAKER) (test code = 4.2 meq/L 3.6-5.5 379) HEMOGLOBIN-STAT [id number] 18:54:00 Test Item Value Reference Range Interpretation Comments HEMOGLOBIN (BEAKER) (test code = 9.9 g/dL 13.0-16.8 L 410) HEMATOCRIT-STAT [id number] 18:54:00 Test Item Value Reference Range Interpretation Comments HEMATOCRIT (BEAKER) (test code = 411) 29.0 % 40.0-50.0 L BLOOD GAS, [id number] 18:54:00 Test Item Value Reference Range Interpretation [...] C (test code = 1818) SODIUM NA-STAT [id number] 18:54:00 Test Item Value Reference Range Interpretation Comments SODIUM (BEAKER) (test code = 381) 133 meq/L 135-148 L GLUCOSE-STAT [id number] 18:54:00 Test Item Value Reference Range Interpretation Comments GLUCOSE RANDOM (BEAKER) (test code 134 mg/dL 70-110 H = 652) HGB/HCT (H&H) - STAT [id number] 18:54:00 Test Item Value Reference Range Interpretation Comments HEMOGLOBIN (BEAKER) (test code = 9.9 GM/DL 13.0-16.8 L 410) HEMATOCRIT (BEAKER) (test code = 29.0 % 40.0-50.0 L 411) CALCIUM, [id number] 18:54:00 Test Item Value Reference Range Interpretation Comments CALCIUM IONIZED (BEAKER) (test 1.03 mmol/L 1.12-1.27 L code = 698) PH, BLOOD (BEAKER) (test code = 7.37 1810) CALCIUM, [id number] 18:13:00 Test Item Value Reference Range Interpretation Comments CALCIUM IONIZED (BEAKER) (test 1.02 mmol/L 1.12-1.27 L code = 698) PH, BLOOD (BEAKER) (test code = 7.36 181) [id number] 17:42:00 Test Item Value Reference Range Interpretation Comments ACTIVATED CLOTTING TIME 279 sec TEST ED AT [place] [address] ([facility]) (test code = [facility] Kimberli [facility] 441) [id number] 17:42:00 Test Item Value Reference Range Interpretation Comments ACTIVATED CLOTTING TIME 224 sec TEST ED AT [place] [address] ([facility]) (test code = [facility] 441) [id number] [id number] 17:42:00 Test Item Value Reference Range Interpretation Comments ACTIVATED CLOTTING TIME 158 sec TEST ED AT [place] [address] ([facility]) (test code = [facility] 441) [address] HGB/HCT (H&H) - STAT [id number] 16:30:00 Test Item Value Reference Range Interpretation Comments HEMOGLOBIN (BEAKER) (test code = 9.9 GM/DL 13.0-16.8 L 410) HEMATOCRIT (BEAKER) (test code = 29.0 % 40.0-50.0 L 411) POTASSIUM-STAT [id number] 16:30:00 Test Item Value Reference Range Interpretation Comments POTASSIUM (BEAKER) (test code = 3.7 meq/L 3.6-5.5 379) SODIUM NA-STAT [id number] 16:30:00 Test Item Value Reference Range Interpretation Comments SODIUM (BEAKER) (test code = 381) 134 meq/L 135-148 L GLUCOSE-STAT [id number] 16:30:00 Test Item Value Reference Range Interpretation Comments GLUCOSE RANDOM (BEAKER) (test code 105 mg/dL 70-110 = 652) [id number] 16:17:00 Test Item Value Reference Range Interpretation Comments ACTIVATED CLOTTING TIME 301 sec TEST ED AT [facility] 6720 (BEAKER) (test code = [facility] Kimberli [facility] 441) [address] BLOOD GAS, [id number] 16:16:00 Test Item Value Reference Range Interpretation [...] (test 37.0 C code = 1818) CALCIUM, [id number] 16:11:00 Test Item Value Reference Range Interpretation Comments CALCIUM IONIZED (BEAKER) (test 1.09 mmol/L 1.12-1.27 L code = 698) PH, BLOOD (BEAKER) (test code = 7.42 1810) MR MRA, EXTREMITY, LOWER, WITHOUT FOLLOW, WITH [id number] 17:43:00 Bilateral extremitiesChristian Hdz MD [facility] Yoni Hdz MD [facility] at [facility]AMIlinical Professor [facility] CenterCo It Help Desk Associate of PVD Services at [facility] V[facility] at [address] [place], [place] [email or web address] REPORT MRA of the lower [...] reconstruction was performed by an independent workstation ([employer]). Please refer to the contrast sheetscanned in [...] CT scan. The proximal abdominal aorta is [place]. The celiac axis, SMA are patent with [...] coil embolisation procedure as per EPIC. The [place] left external iliac artery and the left [...] centimeters of the left SFA could be [place]. However, there is likely a left femoral [...] posterior tibial artery. In the right, the [place] right SFA is seen to be occluded. [...] though thereafter, it is occluded. 4. The [place] left SFA is likely occluded and a left femoral to distal popliteal bypass graft is identified that is patent with no proximal or distal anastomotic stenosis. Essentially three-vessel runoff is seen in the left lower extremity. 5. In the right, the [place] right SFA is o ccluded. It appears [...] MDReport Verified Date/Time: 01/28/2018 17:43:09 Reading Location: [place] [address] Cardiology MRI C METABOLIC [id number] 07:36:00 Test Item Value Reference Range Interpretation [...] 0-0 (BEAKER) (test code = 413) PROTHROMBIN TIME/[id number] 14:15:00 Test Item Value Reference Range Interpretation [...] valves.Within 24 hours, if on CoumadinBASIC METABOLIC [id number] 06:41:00 Test Item Value Reference Range Interpretation [...] (BEAKER) (test code = 413) BLOOD GAS, [id number] 10:39:00 Test Item Value Reference Range Interpretation [...] code = 1819) 46.0 % SODIUM NA-STAT [id number] 10:39:00 Test Item Value Reference Range Interpretation Comments SODIUM (BEAKER) (test code = 381) 131 meq/L 135-148 L POTASSIUM-STAT [id number] 10:39:00 Test Item Value Reference Range Interpretation Comments POTASSIUM (BEAKER) (test code = 3.1 meq/L 3.6-5.5 L 379) GLUCOSE-STAT [id number] 10:39:00 Test Item Value Reference Range Interpretation Comments GLUCOSE RANDOM (BEAKER) (test code 121 mg/dL 70-110 H = 652) HGB/HCT (H&H) - STAT [id number] 10:39:00 Test Item Value Reference Range Interpretation Comments HEMOGLOBIN (BEAKER) (test code = 8.1 g/dL 13.0-16.8 L 410) HEMATOCRIT (BEAKER) (test code = 24.0 % 40.0-50.0 L 411) [id number] 10:10:00 Test Item Value Reference Range Interpretation Comments ACTIVATED CLOTTING TIME 224 sec TEST ED AT [facility] 6720 (BEAKER) (test code = [place] 441) [address] CBC (HEMOGRAM ONLY)2017-12-05 06:51:00 Test Item Value [...] (BEAKER) (test code = 413) BASIC METABOLIC [id number] 06:44:00 Test Item Value Reference Range Interpretation [...] 697) EGFR (BEAKER) (test 72 mL/min/1.73 ESTIMA [place] GFR IS code = 1092) sq m NOT ACCURATE CREATININE CLEARANCE IN PREDICTING GLOMERULAR FILTRATION RATE . ESTIMATED GFR I S NOT APPLICABLE FOR DIALYSIS PATIEN TS. [id number] 12:39:00 Test Item Value Reference Range Interpretation Comments ACTIVATED CLOTTING TIME 136 sec TEST ED AT [facility] 9720 ([facility]) (test code = [place] 441) [address] [id number] 11:51:00 Test Item Value Reference Range Interpretation Comments ACTIVATED CLOTTING TIME 147 sec TEST ED AT [place] [address] ([facility]) (test code = [place] 441) [address] [id number] 09:21:00 Test Item Value Reference Range Interpretation Comments ACTIVATED CLOTTING TIME 213 sec TEST ED AT [facility] 67[facility] (test code = [place] 441) [address] [id number] 08:58:00 Test Item Value Reference Range Interpretation Comments ACTIVATED CLOTTING TIME 191 sec TEST ED AT [place] [address] ([facility]) (test code = [place] [address]) [address] CT, CTA [id number] 11:56:00Addendum BeginsREPORT STATUS:A Addendum: The images were reviewed with Dr. Hdz. There is a missing dictation, specifically, despite the aortic bypass surgery the [place] left common iliac artery is still patent [...] MDReport Verified Date/Time: 11/27/2017 11:56:33 Reading Location: [place] [address] Cardiology MRIAddendum EndsAddendum BeginsREPORT STATUS:A ADDENDUM: Study [...] MDReport Verified Date/Time: 11/26/2017 18:03:42 Reading Location: [place] [address] Angio Body Reading RoomAddendum EndsFINAL REPORT CT [...] takeoff of the left renal artery with xlxw-jj-wdiajixm stenosis identified. Arch vessel branching pattern is [...] mm, respectively with m ild tortuosity and dhgg-pf-ubedmsyg calcific atherosclerosis present. Right iliac limb is [...] however, the ordering physician is the MACHINE [employer] HANGER of the [facility] and therefore no recommendation would be necessary. [...] An addendum will be dictated by the Homebound Teacher Radiologist regarding the nonvascular findings. Signed: Juwan Ramirez Verified Date/Time: 11/26/2017 16:25:25 Reading Location: [place] [address], CTA, [id number] 11:56:00Addendum BeginsREPORT STATUS:A Addendum: The images were reviewed with Dr. Reinier staples. There is a missing dictation, specifically, despite the aortic bypass surgery the [place] left common iliac artery is still patent with retrograde filling from the left external iliac artery, with aneurysmal dilation identified. Image 466, it measures approximately 4.3 x 4.2 cm in diameter. Some intraluminal thrombus is seen. This is the left common iliac artery. The left internal iliac artery is also patent, with calcification present. Signed: Juwan Ramirez Verified Date/Time: 11/27/2017 11:56:33 Reading Location: [place] [address] Cardiology MRIAddendum EndsAddendum BeginsREPORT STATUS:A ADDENDUM: Study [...] months, PET-CT, or biopsy. Signed: Adryan Barrow YADIELeport Verified Date/Time: 11/26/2017 18:03:42 Reading Location: [place] [id number] Angio Body Reading RoomAddendum EndsFINAL REPORT CT [...] takeoff of the left renal artery with dmke-pr-uzoaf ate stenosis identified. Arch vessel branching pattern [...] 8.2 mm, respectively with mild tortuosity and gfed-qj-uypwyctj calcific atherosclerosis present. Right iliac limb is [...] however, the ordering physician is the MACHINE CE[employer] HANGER of the [facility] and therefore no recommendation would be necessary. [...] An addendum will be dictated by the Homebound Teacher Radiologist regarding the nonvascular findings. Signed: Juwan Ramirez MDReport Verified Date/Time: 11/26/2017 16:25:25 Reading Location: [place] [address] Cardiology MRI B-TYPE NATRIURETIC FACTOR (BNP)2017-11-26 18:03:00 Test Item Value Reference Range Interpretation Comments B-TYPE NATRIURETIC PEPTIDE (BEAKER) 142 pg/mL 0-100 H (test code = 700) COMPREHENSIVE METABOLIC [id number] 17:56:00 Test Item Value Reference Range Interpretation [...] NOT APPLICABLE FOR DIALYSIS PATIEN TS. PROTHROMBIN TIME/[id number] 17:33:00 Test Item Value Reference Range Interpretation [...] 0-1 PERCENT (BEAKER) (test code = 2801) [id number] 12:34:00 Test Item Value Reference Range Interpretation Comments POC-CREATININE 1.1 mg/dL 0.6-1.3 TESTED AT [facility] 6720 ([facility]) (test [place] code = 0281) [address] POC-EGFR (BEAKER) 65 mL/min/1.73M2 (test code = 1860) [id number] 06:22:001.08Memorinh RssqkrqFSRLAMDICC9149-46-60 06:22:00 Test Item Value Reference Range Interpretation Comments PT (test code = PT) 14.2 s 12.0-14.7 [facility]LieskfxQIKYCLKYXX7629-45-40 16:33:001.09[facility]ann[facility] 2016-05-28 16:33:00 Test Item Value Reference Range Interpretation Comments PTT (test code = PTT) 27.7 s 22.9-35.8 [facility] HospitalOtjkkblFLAGGSCRQU7098-71-75 16:33:00 Test Item Value Reference Range Interpretation Comments PT (test code = PT) 14.3 s 12.0-14.7 [facility] LfxpnnmPRKZXICORF2213-65-13 16:33:60342Cghdxkxi HermannHEMATOLOGY 2016-05-28 16:33:008.4[facility] EjysqsxDUTPTNRSCQ3880-59-87 16:33:0033.3[facility] ObmaqniQDQXRCTIZB1159-30-45 16:33:0011.6[facility] JdukawoDPZLBEVCJH5976-47-79 16:33:00 Test Item Value Reference Range Interpretation Comments MCH (test code = MCH) 29.6 pg 27.0-31.0 [facility] ZcemuugPRIAXVYIMD0085-01-09 16:33:0015.0[facility]annHEMATOLOGY 2016-05-28 16:33:0088.9[facility] ZpkvzgmJUFENVTPGO4895-32-42 16:33:0035.0[facility] VigfrroHSLXUICFTB0379-88-64 16:33:003.94[facility] ZwatuaqMUWZPRNCNT7830-74-84 16:33:0011.4[facility] BfyfrpcMFRKCKOJGJ4751-47-44 16:33:001.3[facility] BRMCEVPYTG4284-39-60 16:33:008.9[facility] JoluygxLVKGLDOGEC6700-02-68 16:33:001.2 [facility] KygreryIILJKVAGAX1210-74-14 16:33:000.1[facility]annHEMATOLOGY 2016-05-28 16:33:000.1[facility] QsuqifjPPOHFJPWCQ5329-90-68 16:33:000.5[facility] ImjxsruTQRKWPTKQL1590-24-76 16:33:0011.5[facility] FcnutqqZDDWBEPECL9921-53-69 16:33:0077.6[facility] DbcpbevSODBWBSCMR7395-23-85 16:33:0010.3[facility] CHEM XVBPM2342-33-11 09:17:0089[facility] HermannCHEM QLNUM6121-63-81 09:17:27988 [facility]annCHEM KJXAF0753-93-24 09:17:000.80[facility] HermannCHEM PANEL 2016-05-27 09:17:009[facility] HermannCHEM DUOCW7374-96-12 09:17:62681Sqqfafhj HermannCHEM AUOZJ0666-81-36 09:17:003.9[facility] HermannCHEM ZYIIR6982-85-97 09:17:0022[facility] HermannCHEM PJGWR3404-00-75 09:17:70610Evonncaq HermannCHEM LBSZV2629-30-31 09:17:008.0[facility] HermannCHEM KDYPQ7190-61-87 09:17:0018.9 [facility]annCHEM JFZKW0154-50-61 09:17:002.3[facility] HermannCHEM PANEL 2016-05-27 09:17:001.7[facility] BuyhchrKTKXBEOPLD2690-74-38 09:17:007.2[facility] DujfpwmNROATGMLDM9944-50-20 09:17:007.5[facility] KglflitOLSPAMTEGB0924-31-01 09:17:0085.1[facility] RbantrcZIOEUVBULN1796-86-27 09:17:009.0[facility] NAWKZZBFIO6400-24-84 09:17:000.2[facility] LelniuhIEBPMMZIIW3295-75-88 09:17:000.8 [facility] TbqagexEDRVFTNAIM1551-20-35 09:17:000.8[facility] HermannHEMATOLOGY 2016-05-27 09:17:0088.5[facility] EiucoasMMXEGIWPTX7062-47-39 09:17:0031.9[facility] NsvlxyyENVSTFKMZQ4920-14-31 09:17:0011.0[facility] TwqiwccFZPSVQYSUQ2236-33-46 09:17:003.61[facility] OvpyitvQNKCOTXTIE3086-01-64 09:17:00 Test Item Value Reference Range Interpretation Comments MCH (test code = MCH) 30.6 pg 27.0-31.0 [facility] NvfbilrGXQEJDASLP5267-95-63 09:17:0010.6[facility]annHEMATOLOGY 2016-05-27 09:17:34541Fwvnizyo KsokhriFVEQWQGYVF4178-74-82 09:17:0014.7[facility] JjaveniWTJYUVCDCL4350-37-28 09:17:0034.6[facility] AbljgcoAVMKLNKGJQ5671-68-38 09:17:009.3[facility] HermannPARATHYROID MBTEZUJ0256-54-98 09:17:000.99[facility] HermannPARATHYROID IQVPRAO9604-83-83 09:17:001.02[facility] HermannCARDIAC ENZYMES 2016-05-26 05:43:00<0.02[facility] HermannCARDIAC ZKQMFKG2022-53-93 05:43:0050 [facility] HermannCHEM TVOXQ0001-84-36 05:43:002.1[facility] HermannCHEM PANEL 2016-05-26 05:43:0088Mem[facility] HermannCHEM XHZDJ2036-28-14 05:43:0023[facility] HermannCHEM ABDPJ3531-14-44 05:43:75347Bphwfobg HermannCHEM AOVLJ7667-31-65 05:43:007.8[facility] HermannCHEM VVYNJ6654-59-78 05:43:0016.2[facility] HermannCHEM DZWGH6818-67-76 05:43:99433Qfciuhrv HermannCHEM FJGOW2337-78-11 05:43:0078 [facility] HermannCHEM ZEUKA6730-80-68 05:43:009[facility] HermannCHEM PANEL 2016-05-26 05:43:004.2[facility] HermannCHEM JCKSU7684-18-45 05:43:000.81[facility] HermannCHEM HQHBW7579-02-31 05:43:003.3[facility] PvsqhunMILHXRWQCV3289-02-12 05:43:0034.6[facility] IdxxfmkUFNTKFBDUO8816-79-32 05:43:0014.1[facility] DPHOVAKYPZ9958-74-83 05:43:003.69[facility] FldshbmCUCOUCKYGF0261-46-88 05:43:00 10.1[facility] KjfqcjgMBHCPHDINN2686-20-81 05:43:009.0[facility] HermannHEMATOLOGY 2016-05-26 05:43:80543Rqgpqmpo AzkocpxPJQYTULCAD7023-38-51 05:43:00 Test Item Value Reference Range Interpretation Comments MCH (test code = MCH) 30.3 pg 27.0-31.0 [facility] ZrejzgfIXVTRQULGV0935-55-49 05:43:0087.7[facility] HermannHEMATOLOGY 2016-05-26 05:43:0032.4[facility] QeosserQQWCYMIVJR2431-48-23 05:43:0011.2[facility] ColleiuARELSUZWPD2776-88-44 05:43:000.2[facility] BacqyhqYGCLGHWAQW7086-07-24 05:43:00See Note (05/26/16 12:43 AM)[facility] XphrjhxBWZYTEYSDO7477-31-43 05:43:0015.5[facility] EkemhecRYZUYNYCPO3083-43-44 05:43:00 Test Item Value Reference Range Interpretation Comments Max Amp (test code = Max Amp) 75.6 mm 50.0-70.0 [facility] DbjljvdSEYBPUDUUM1482-73-26 05:43:005.3[facility] HermannHEMATOLOGY 2016-05-26 05:43:00 Test Item Value Reference Range Interpretation Comments K-time (test code = K-time) 0.8 min 1.0-3.0 [facility] OseskplGQOGGRAADG1228-70-74 05:43:00 Test Item Value Reference Range Interpretation Comments Angle (test code = Angle) 78.6 degrees 53.0-72.0 Memorial YhbhjdmBMVUGMWXXF9243-06-29 05:43:00 Test Item Value Reference Range Interpretation Comments R-time (test code = R-time) 2.8 min 5.0-10.0 [facility] KyionhtKAQGNZIYMJ2590-65-86 05:43:0010.1[facility] HermannHEMATOLOGY 2016-05-26 05:43:0013.2[facility] WgztlvhAVIWFWGFTT3801-17-46 05:43:007.7[facility] RnzervaGFLQSVZMDF3661-49-75 05:43:000.4[facility] NrqsjavRAHWNJNBJD7094-85-07 05:43:000.1[facility] ZcejtfwHQIZFGPIBH4813-41-40 05:43:001.0[facility] FYCJJZBYDP7757-15-37 05:43:001.3[facility] MfogtspVQKHMEDHUP1288-69-63 05:43:00 76.2[facility] HermannPARATHYROID KCHODBI0316-36-12 05:43:001.11[facility] PARATHYROID MNUJNFQ7223-37-17 05:43:001.08[facility] HermannCHEM ZQVEF9370-69-88 21:31:0080[facility] HermannCHEM OPRPU4114-27-61 21:31:0015.3[facility] HermannCHEM CEMDA1503-14-71 21:31:0025Mem[facility] HermannCHEM KVSLS4447-07-28 21:31:007.9 [facility] HermannCHEM IFLQC9942-52-65 21:31:41212Pvqngvqd HermannCHEM PANEL 2016-05-25 21:31:004.3[facility] HermannCHEM JWDDQ3134-81-32 21:31:94561Nfyxdvhq HermannCHEM MBYFZ2590-18-94 21:31:000.94[facility] HermannCHEM LYJEV1344-26-48 21:31:92293Xgwvutuk HermannCHEM HAIHZ3105-00-60 21:31:008[facility] KUKENSBQFM9234-20-72 21:31:001.19[facility] IltrzciZMWUISBQCI1500-14-05 21:31:00 Test Item Value Reference Range Interpretation Comments PT (test code = PT) 15.4 s 12.0-14.7 [facility] WphppabIIOIMSSBWS7959-73-50 21:31:00 Test Item Value Reference Range Interpretation Comments PTT (test code = PTT) 34.1 s 22.9-35.8 [facility] HermannPARATHYROID IQJHFXD1609-17-38 06:49:001.07[facility] PARATHYROID UVRJZTV9797-07-41 06:49:001.04[facility] HermannCARDIAC ENZYMES 2016-05-25 06:47:00<0.02[facility] HermannCARDIAC WTZARDV8922-30-97 06:47:0057 [facility] HermannCHEM ACCGM3243-48-39 06:47:001.1[facility] HermannCHEM PANEL 2016-05-25 06:47:000.4[facility] HermannCHEM UBACL9614-76-53 06:47:000.6[facility] HermannCHEM WDNXP5775-88-84 06:47:000.2[facility] HermannCHEM TTEGS9238-39-62 06:47:0013Mem[facility] HermannCHEM JEUPA9236-59-40 06:47:13923Rrjcngzk HermannCHEM NDDCI8989-73-78 06:47:002.7[facility] HermannCHEM GSVUL9016-88-76 06:47:005.7 [facility] HermannCHEM IETYX4215-69-83 06:47:003.0[facility] HermannCHEM PANEL 2016-05-25 06:47:0014Mem[facility] HermannCHEM SJJEL9185-28-76 06:47:003.2[facility] HermannCHEM WFRUA4292-93-46 06:47:001.7[facility] RESULTS 2016-05-25 02:09:00Positive 1(05/24/16 9:09 PM)[facility] 2016-05-25 02:09:00 Test Item Value Reference Range Interpretation Comments Max Amplitude Rapid (test code = Max 68 mm 52-71 Amplitude Rapid) [facility] HospitalEupdwusKVKYQIZOIO0345-91-14 02:09:0010.4[facility] 2016-05-25 02:09:000.4[facility] HospitalMcamucuGOYROOGMLW4591-81-54 02:09:00 Test Item Value Reference Range Interpretation Comments ACT (TEG) Rapid (test code = ACT (TEG) 121 s 86-118 Rapid) [facility] HospitalTridaqsGVLZTFHGKS6285-54-77 02:09:00 Test Item Value Reference Range Interpretation Comments Split Point Rapid (test code = Split 0.7 min Point Rapid) [facility] HospitalAyqiwfrIDFZOHQLJB7415-53-78 02:09:00 Test Item Value Reference Range Interpretation Comments R-time Rapid (test code = R-time 0.8 min 0.4-0.7 Rapid) [facility] HospitalLlougdfXFNHVFCBDS4006-22-40 02:09:00 Test Item Value Reference Range Interpretation Comments K-time Rapid (test code = K-time 0.8 min 0.6-2.3 Rapid) [facility] HospitalJzipuhpRVNQKXNLKQ8998-17-10 02:09:00 Test Item Value Reference Range Interpretation Comments Angle Rapid (test code = Angle 80 degrees 64-80 Rapid) [facility] HospitalXykeagmMNPNBFLRXI9799-85-84 02:09:001.7[facility]HEMATOLOG[facility] 2016-05-25 02:09:000.1[facility] SolznhbJLDYTLYKDM9961-21-24 02:09:000.1[facility] HospitalYnkzqsjMOTCSSMUND7238-54-91 02:09:00 Test Item Value Reference Range Interpretation Comments PTT (test code = PTT) 32.0 s 22.9-35.8 [facility]
[2021-01-29] MEDS ORDERED: MORPHINE 4 MG/ML SYR ONE (22:51)
[2021-01-29] MEDS ORDERED: ONDANSETRON 4 MG/2 ML VIAL ONE (22:51)
[2021-01-29] MEDS ORDERED: NA CHLORIDE 0.9% 500 ML ONE (22:51)
[2021-01-29 23:16] LABS: Absolute Lymphocytes (CBC) 0.8 K/uL (0.7-4.9); Basophils % 0.7 % (0-1.3); Hematocrit 39.1 % (39.6-49.0); Lymphocytes % 11.6 % (15.3-44.8); MPV 8.9 fL (7.6-11.3); RBC Red Blood Cell Count 4.55 M/uL (4.33-5.43)
[2021-01-29 23:25] LABS: Albumin 3.7 g/dL (3.4-5.0); Bilirubin Direct 0.2 mg/dL (0-0.2); Bilirubin Total 0.6 mg/dL (0.2-1.0); Potassium 4.1 mmol/L (3.5-5.1); Protein, Total 7.5 g/dL (6.4-8.2)
[2021-01-30] MEDS ORDERED: ONDANSETRON 4 MG/2 ML VIAL ONE (00:53)
--- NOTE | 2021-01-30 01:19 | EDPHYS ---
Physician Documentation [facility] Name: Pineda Mckeon Age: 75 yrs Sex: Male : 1945 Arrival Date: 01/29/2021 Time: 22:25 Bed 7 Private MD: ED Physician Dwaine Hylton HPI: 01/29 22:28 This 75 yrs old Male presents to ER via Unassigned with complaints of abd kb pain, n/v/d. 22:28 The patient presents with abdominal pain in the upper abdomen. Onset: The kb symptoms/episode began/occurred this morning. The symptoms do not radiate. Associated signs and symptoms: Pertinent positives: nausea, vomiting, and diarrhea, Pertinent negatives: fever. The symptoms are described as constant. Modifying factors: The symptoms are alleviated by nothing, the symptoms are aggravated by nothing. Severity of pain: At its worst the pain was moderate in the emergency department the pain is unchanged. The patient has not experienced similar symptoms in the past. The patient has not recently seen a physician. Pt reports n/v/d and upper abd pain that started this morning. Denies fever, chills. Historical: - Home Meds: 22:28 Zanaflex 4 mg Oral tab 1 tab every 6 hours [Active]; warfarin 6 mg Oral tab once daily ea [Active]; Vitamin B-12 1,000 mcg Oral tab 1000 mcg daily [Active]; topiramate 100 mg Oral tab 1 tab 2 times per day [Active]; urea Topical [Active]; topiramate 100 mg Oral tab 1 tab 2 times per day [Active]; tizanidine 4 mg Oral tab 1 tab three times a day [Active]; primidone 250 mg Oral tab 1 tab daily [Active]; nystatin 100,000 unit/mL Oral susp [Active]; omeprazole 20 mg Oral cpDR 1 cap once daily [Active]; lisinopril 40 mg Oral tab 1 tab once daily [Active]; hydrocodone-acetaminophen 10-325 mg Oral tab 1 tab every 4-6 hours [Active]; hydrocodone-acetaminophen 10-325 mg Oral tab 1 tab every 6 hours [Active]; gabapentin 300 mg Oral cap 1 cap daily [Active]; Flomax 0.4 mg Oral cp24 [Active]; cholecalciferol (vitamin D3) 400 unit Oral cap 2 tab daily [Active]; fentanyl 100 mcg/hr Topical pt72 1 patch every 48 hours [Active]; carvedilol 6.25 mg Oral tab 1 tab 2 times per day [Active]; amlodipine 2.5 mg tab 1 tab once daily [Active]; - PMHx: 22:28 TIA; Right Arm; Hypertension; Degenerative disc disease; COPD; clotting disorder; ea Bypass Bilateral Legs; blood clot in right groin; CVA; AAA; - PSHx: 22:28 Hernia repair; Cholecystectomy; Right arm; ea - Immunization history:: Adult Immunizations up to date. - Social history:: Smoking status: unknown. ROS: 22:27 Constitutional: Negative for fever, chills, and weight loss. kb 22:27 Abdomen/GI: Positive for abdominal pain, nausea, vomiting, and diarrhea. 22:27 All other systems are negative. Exam: 22:26 Constitutional: This is a well developed, well nourished patient who is awake, alert, kb and in no acute distress. Head/Face: Normocephalic, atraumatic. ENT: Moist Mucous membranes Cardiovascular: Regular rate and rhythm with a normal S1 and S2. No gallops, murmurs, or rubs. No pulse deficits. Respiratory: Respirations even and unlabored. No increased work of breathing, no retractions or nasal flaring. Skin: Warm, dry with normal turgor. Normal color. MS/ Extremity: Pulses equal, no cyanosis. Neurovascular intact. Full, normal range of motion. Neuro: Awake and alert, GCS 15, oriented to person, place, time, and situation. Moves all extremities. Normal gait. Psych: Awake, alert, with orientation to person, place and time. Behavior, mood, and affect are within normal limits. 22:26 Abdomen/GI: Inspection: abdomen appears normal, Bowel sounds: normal, in all quadrants, Palpation: soft, in all quadrants, mild abdominal tenderness, in the right upper quadrant and left upper quadrant, moderate abdominal tenderness, in the left lower quadrant. 22:27 ECG was reviewed by the Attending Physician. kb Vital Signs: 22:16 BP 207 / 88; Pulse 66; Resp 16; Temp 98.6; Pulse Ox 97% on R/A; Weight 63.5 kg; Height ea 5 ft. 7 in. (170.18 cm); 22:35 BP 183 / 96; Pulse 64; Resp 18; Pulse Ox 98% ; ea 23:22 BP 189 / 92; Pulse 68; Resp 16 S; Pulse Ox 100% on R/A; ad5 01/30 00:48 BP 170 / 97; Pulse 66; Resp 18 S; Pulse Ox 98% on R/A; ad5 01/29 22:16 Body Mass Index 21.93 (63.50 kg, 170.18 cm) ea MDM: 01/29 22:27 Data reviewed: vital signs, nurses notes. Data interpreted: Pulse oximetry: on room air kb is 100 %. Interpretation: normal. 22:30 Patient medically screened. kb 01/30 01:00 Counseling: I had a detailed discussion with the patient and/or guardian regarding: the kb historical points, exam findings, and any diagnostic results supporting the discharge/admit diagnosis, lab results, radiology results, the need to transfer to another facility. ED course: CT scan revealed 6.0cm descending thoracic aortic aneurysm. Vascular consultation recommended. Transfer to [facility] initiated for higher level of care. 01:10 ED course: Old records reviewed. Pt had similar findings on CT scan from September 2020. kb Pt states Dr Scherer keeps a check on the aneurysm and he would prefer to just keep going to him instead of going to [facility]. Discussed with Dr Hylton. All in agreement with outpatient follow up at this time. Aneurysm measured 5.9cm in September, now 6.0. Pt states he is feeling better after treatment here. . 01/29 22:29 Order name: Basic Metabolic Panel kb 01/29 22:29 Order name: CBC with Diff kb 01/29 22:29 Order name: Hepatic Function kb 01/29 22:29 Order name: Lipase kb 01/29 23:18 Order name: CBC with Automated Diff; Complete Time: 23:23 EDMS 01/29 23:25 Order name: Basic Metabolic Panel; Complete Time: 23:26 EDMS 01/29 22:29 Order name: IV Saline Lock; Complete Time: 22:32 kb 01/29 22:29 Order name: CT Abd/Pelvis - IV Contrast Only; Complete Time: 00:39 kb 01/29 23:25 Order name: Liver (Hepatic) Function; Complete Time: 23:26 EDMS 01/29 23:25 Order name: Lipase; Complete Time: 23:26 EDMS 01/29 22:29 Order name: Labs collected and sent; Complete Time: 22:36 kb EC/22 22:27 Rate is 50 beats/min. Rhythm is regular. QRS [place] is Normal. SC interval is normal at kb 166 msec. QRS interval is normal at 94 msec. QT interval is normal at 438 msec. Administered Medications: :33 Drug: morphine 4 mg Route: IVP; Site: right antecubital; ea 01/30 00:47 Follow up: Response: No adverse reaction; Pain is decreased; RASS: Alert and Calm (0) ad5 01/29 22:33 Drug: Zofran (Ondansetron) 4 mg Route: IVP; Site: right antecubital; ea 01/30 00:47 Follow up: Response: No adverse reaction ad5 01/29 22:33 Drug: NS 0.9% 500 ml Route: IV; Rate: bolus; Site: right antecubital; ea 01/30 00:46 Follow up: IV Status: Completed infusion; IV Intake: 500ml ad5 00:42 Drug: Zofran (Ondansetron) 4 mg Route: IVP; Site: right antecubital; ad5 01:26 Follow up: Response: No adverse reaction; Nausea is decreased ad5 Disposition: 02:54 Co-signature as Attending Physician, Dwaine Hylton MD. [email or web address] Disposition: 01/30/21 01:18 Discharged to Home. Impression: Diarrhea, unspecified, Nausea and vomiting. - Condition is Stable. - Discharge Instructions: Food Choices to Help Relieve Diarrhea, Adult, Nausea and Vomiting, Adult, [id number], Diarrhea, Adult, [id number]. - Prescriptions for Bentyl 20 mg Oral Tablet - take 1 tablet by ORAL route every 6 hours As needed; 20 tablet. Zofran 4 mg Oral Tablet - take 1 tablet by ORAL route every 6 hours As needed; 20 tablet. Zithromax 500 mg Oral Tablet - take 1 tablet by ORAL route once daily for 5 days; 5 tablet. - Medication Reconciliation Form, Thank You Letter, Antibiotic Education, Prescription Opioid Use, SBAR form form. - Follow up: Private Physician; When: 2 - 3 days; Reason: Recheck today's complaints, Continuance of care, Re-evaluation by your physician. Follow up: Emergency Department; When: As needed; Reason: Worsening of condition. Signatures: Dispatcher [employer] EDMS Kait Etienne, CRISTHIAN-C IT GENERALIST-Hanselb Marlene Decker RN RN Dwaine Tena MD MD 7 Adam Cortez Corrections: (The following items were deleted from the chart) 02:50 01:18 01/30/2021 01:18 Discharged to Home. Impression: Diarrhea, unspecified; Nausea ea and vomiting. Condition is Stable. Forms are SBAR form, Medication Reconciliation Form, Thank You Letter, Antibiotic Education, Prescription Opioid Use. Follow up: Private Physician; When: 2 - 3 days; Reason: Recheck today's complaints, Continuance of care, Re-evaluation by your physician. Follow up: Emergency Department; When: As needed; Reason: Worsening of condition. kb
--- NOTE | 2021-01-30 01:19 | ER ---
Nurse's Notes [facility] Name: Pineda Mckeon Age: 75 yrs Sex: Male : 1945 Arrival Date: 01/29/2021 Time: 22:25 Bed 7 Private MD: Diagnosis: Diarrhea, unspecified;Nausea and vomiting Presentation: 01/29 22:16 Chief complaint: EMS states: Pt reports nausea vomiting and vomiting that started this ea AM. EMS reported BGL was 157. Coronavirus screen: At this time, the client does not indicate any symptoms associated with coronavirus-19. Ebola Screen: No symptoms or risks identified at this time. Initial Sepsis Screen: Does the patient meet any 2 criteria? No. Patient's initial sepsis screen is negative. Does the patient have a suspected source of infection? No. Patient's initial sepsis screen is negative. Risk Assessment: Do you want to hurt yourself or someone else? Patient reports no desire to harm self or others. Onset of symptoms was January 29, 2021. 22:16 Method Of Arrival: EMS: [facility] ea 22:16 Acuity: NORY 3 ea Historical: - Home Meds: 22:28 Zanaflex 4 mg Oral tab 1 tab every 6 hours [Active]; warfarin 6 mg Oral tab once daily ea [Active]; Vitamin B-12 1,000 mcg Oral tab 1000 mcg daily [Active]; topiramate 100 mg Oral tab 1 tab 2 times per day [Active]; urea Topical [Active]; topiramate 100 mg Oral tab 1 tab 2 times per day [Active]; tizanidine 4 mg Oral tab 1 tab three times a day [Active]; primidone 250 mg Oral tab 1 tab daily [Active]; nystatin 100,000 unit/mL Oral susp [Active]; omeprazole 20 mg Oral cpDR 1 cap once daily [Active]; lisinopril 40 mg Oral tab 1 tab once daily [Active]; hydrocodone-acetaminophen 10-325 mg Oral tab 1 tab every 4-6 hours [Active]; hydrocodone-acetaminophen 10-325 mg Oral tab 1 tab every 6 hours [Active]; gabapentin 300 mg Oral cap 1 cap daily [Active]; Flomax 0.4 mg Oral cp24 [Active]; cholecalciferol (vitamin D3) 400 unit Oral cap 2 tab daily [Active]; fentanyl 100 mcg/hr Topical pt72 1 patch every 48 hours [Active]; carvedilol 6.25 mg Oral tab 1 tab 2 times per day [Active]; amlodipine 2.5 mg tab 1 tab once daily [Active]; - PMHx: 22:28 TIA; Right Arm; Hypertension; Degenerative disc disease; COPD; clotting disorder; ea Bypass Bilateral Legs; blood clot in right groin; CVA; AAA; - PSHx: 22:28 Hernia repair; Cholecystectomy; Right arm; ea - Immunization history:: Adult Immunizations up to date. - Social history:: Smoking status: unknown. Screenin:27 Abuse screen: Denies threats or abuse. Denies injuries from another. Nutritional ad5 screening: No deficits noted. Tuberculosis screening: No symptoms or risk factors identified. Fall Risk No fall in past 12 months (0 pts). Secondary diagnosis (15 points) IV access (20 points). Ambulatory Aid- None/Bed Rest/Nurse Assist (0 pts). Gait- Normal/Bed Rest/Wheelchair (0 pts) Mental Status- Oriented to own ability (0 pts). Total Da Silva Fall Scale indicates Low Risk Score (25-44 pts). Fall prevention measures have been instituted. Side Rails Up X 2 Frequent Obs/Assesments occuring As available Patient and Family Educated on Fall Prevention Program and strategies. Assessment: 22:31 General: Appears uncomfortable, Behavior is appropriate for age. Pain: Complains of ea pain in abdomen. Neuro: Level of Consciousness is awake, alert, obeys commands, Oriented to person, place, time. Respiratory: Airway is patent Respiratory effort is even, unlabored, Respiratory pattern is regular, symmetrical. Derm: Skin is pink, warm \T\ dry. 22:56 Reassessment: Patient appears in no apparent distress at this time. Patient is alert, ad5 oriented x 3, equal unlabored respirations, skin warm/dry/pink. Patient states symptoms have improved. 01/30 00:00 Reassessment: Patient appears in no apparent distress at this time. Patient and/or ad5 family updated on plan of care and expected duration. Pain level reassessed. Patient is alert, oriented x 3, equal unlabored respirations, skin warm/dry/pink. 00:40 Reassessment: Pt reports worsening nausea, provider aware, VORB for additional 4mg IVP ad5 zofran administration. Vital Signs: 01/29 22:16 BP 207 / 88; Pulse 66; Resp 16; Temp 98.6; Pulse Ox 97% on R/A; Weight 63.5 kg; Height ea 5 ft. 7 in. (170.18 cm); 22:35 BP 183 / 96; Pulse 64; Resp 18; Pulse Ox 98% ; ea 23:22 BP 189 / 92; Pulse 68; Resp 16 S; Pulse Ox 100% on R/A; ad5 01/30 00:48 BP 170 / 97; Pulse 66; Resp 18 S; Pulse Ox 98% on R/A; ad5 01/29 22:16 Body Mass Index 21.93 (63.50 kg, 170.18 cm) ea ED Course: 01/29 22:25 Patient arrived in ED. ea 22:26 Kait Etienne [facility]-C [facility]. kb 22:26 Dwaine Hylton MD is Attending Physician. kb 22:26 Adam Cortez is Primary Nurse. ad5 22:27 Inserted saline lock: 20 gauge in right antecubital area, using aseptic technique. ad5 Blood collected. 22:27 Patient has correct armband on for positive identification. Bed in low position. Call ad5 light in reach. Side rails up X2. monitoring coordinator on. Pulse ox on. NIBP on. Door closed. Noise minimized. Warm blanket given. Head of bed elevated. 22:31 Triage completed. ea 22:31 Arm band placed on right wrist. Patient placed in an exam room, on a stretcher, on ea pulse oximetry. 23:59 CT Abd/Pelvis - IV Contrast Only Sent. ad5 01/30 01:01 Initiated transfer at [facility] with Yue Proctor. Call was connected to CRISTHIAN Blank, provider of pt for further consultation. 01:11 Spoke with Shawanda Roman at [facility] transfer center and informed her we could cancel tt3 the request for transfer due to pt wanting to go home instead. 02:39 No provider procedures requiring assistance completed. IV discontinued, intact, ad5 bleeding controlled, No redness/swelling at site. Pressure dressing applied. Administered Medications: 01/29 22:33 Drug: morphine 4 mg Route: IVP; Site: right antecubital; ea 01/30 00:47 Follow up: Response: No adverse reaction; Pain is decreased; RASS: Alert and Calm (0) ad5 01/29 22:33 Drug: Zofran (Ondansetron) 4 mg Route: IVP; Site: right antecubital; ea 01/30 00:47 Follow up: Response: No adverse reaction ad5 01/29 22:33 Drug: NS 0.9% 500 ml Route: IV; Rate: bolus; Site: right antecubital; ea 01/30 00:46 Follow up: IV Status: Completed infusion; IV Intake: 500ml ad5 00:42 Drug: Zofran (Ondansetron) 4 mg Route: IVP; Site: right antecubital; ad5 01:26 Follow up: Response: No adverse reaction; Nausea is decreased ad5 Intake: 00:46 IV: 500ml; Total: 500ml. ad5 Outcome: 01:18 Discharge ordered by . kb 02:39 Condition: stable ad5 02:39 Discharge instructions given to patient, Instructed on discharge instructions, follow up and referral plans. medication usage, Demonstrated understanding of instructions, follow-up care, medications, Prescriptions given X 3. 02:39 Discharged to home via wheelchair, with family. ad5 02:50 Patient left the ED. ea Signatures: Kait Etienne, CRISTHIAN-C CRISTHIAN-Marlene Prado RN RN ea Trim, Tyler tt3 Davidson, Andrea ad5
[2021-01-30 03:09] VITALS: BP 170/97; O2SAT 98
--- NOTE | 2021-01-30 14:32 | RAD REPORT ---
EXAM DESCRIPTION: CT Abdomen and Pelvis COMPARISON: CT abdomen pelvis October 03, 2020 CLINICAL HISTORY: [facility] MAIN ABD PAIN TECHNIQUE: CT of the abdomen and pelvis was acquired with IV contrast material. Coronal and sagitt al reconstructions were obtained. Automated exposure control was utilized on this examination as a dose lowering technique. FINDINGS: Lung bases: Groundglass opacities are noted in the right lower lobe. Partially visualized aortic valve replacement. Liver: Calcified granulomas are noted. Gallbladder and biliary: Cholecystectomy. Unremarkable biliary tree. Pancreas: Normal. Spleen: Calcified granulomas are noted. Adrenal glands: Normal adrenal glands. Kidneys: Normal kidneys Stomach and Small Bowel: The stomach is normal. A small proximal duodenal lipoma is noted. Urinary bladder: Normal. Prostate/Male Urogenital: Normal. Colon and Appendix: Small lipomas are noted in the proximal colon. No evidence of appendicitis. Retroperitoneum and lymph nodes: Normal. Vascular: Severe multivessel calcified atherosclerosis. There is a partially visualized aneurysm of t he descending thoracic aorta measuring 6.0 cm with a large amount of soft atherosclerotic plaque. A s uprarenal abdominal aortic aneurysm measures up to 3.7 cm in diameter. Right common iliac stents are noted. There are surgical changes in the region of the left common iliac artery with metallic artifac t adjacent. 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 Peritoneal cavity: No ascites or free air. Musculoskeletal and soft tissues: Bifemoral surgical clips are noted. Lumbar spondylosis is present. Severe degenerative changes of the hips. No aggressive bone lesions. No compression fracture. IMPRESSION: 1. No acute intra-abdominal abnormality. 2. Groundglass opacities in the right lower lobe are favored to represent pneumonia or atelectasis. T hese were not present in September. 3. Severe multivessel calcified atherosclerosis with 6.0 cm partially visualized descending thoracic aortic aneurysm and aneurysmal dilatation of the suprarenal abdominal aorta. 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 Recommend vascular consultation if not already performed. Electronically signed by: Damien Morales MD 01/30/2021 12:49 AM CDT Due to temporary technical issues with the PACS/Fluency reporting system, reports are being signed by the in house radiologists without review as a courtesy to insure prompt reporting. The interpreting radiologist is fully responsible for the content of the report.
--- NOTE | 2021-01-31 10:36 | EKG ---
Test Date: 2021-01-29 Test Time: 22:20:03 Turkey Farmer: VINCE MEASUREMENT RESULTS: Intervals: Rate: 50 NJ: 166 QRSD: 94 QT: 438 QTc: 399 [place]: P: 59 NJ: 166 QRS: 37 T: 77 INTERPRETIVE STATEMENTS: Sinus bradycardia Septal infarct, age undetermined Abnormal ECG Compared to ECG 10/03/2020 10:01:40 Myocardial infarct finding now present Sinus rhythm no longer present Electronically Signed On 01-31-21 10:32:16 CDT by Conrad Scherer
== END 2021-01-30 02:50 | disposition home or self-care (01) ==
LOC: ER 22:24
DX: R19.7 Diarrhea, unspecified (principal); R10.10 Upper abdominal pain, unspecified; I10 Essential (primary) hypertension; J44.9 Chronic obstructive pulmonary disease, unspecified; Z79.01 Long term (current) use of anticoagulants
CPT/HCPCS: 85025; 80048; 36415; 80076; 83690; 74177; Q9967; J7040; J2405 ×2; 93005; 96361; 96374; 96375; 99285

== ENCOUNTER 2021-02-03 22:40 | Emergency (ER) | payer OTHER ==
--- OUTSIDE RECORDS SUMMARY | 2021-02-03 22:47 | XMS REPORT | Continuity of Care Document ---
:1945 Author Organization [facility] t Address [address] [place] [address] Care Team Providers Name Role Phone Jono [...] Clinician Date PAD PAD Disease Active 2018-08 [place] (periphera (periphera 0-30 Me thodi l artery l artery 00:00: st disease) disease) 00 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 Me thodi 00:00: st 00 PAD PAD Disease Active 2018-08 Last [place] (periphera (periphera 0-18 Assessmen Methodi l artery [...] Disease Active [facility] (venous (venous 02-23 Assessmen Metho di thromboemb thromboemb 00:00: t & Plan: st olism) olism) 00 Formattin g of this note might be different from the original. Plan: Bilateral LE vein mapping ZHANE (acute ZHANE (acute Disease Active [facility] kidney kidney 28 [facility] - injury) injury) 00:00: Medical [address] [place] [address] Abscess of Abscess of Disease Active C [...] Jevon SMITH 00 BILLING 5060 Active 05/24/2016 [facility] SDH Diagnosis Active 2015-082016-06-05 Mem oria 0-15 23:20:00 l SDH 00:00: Jevon 00 Active 05/24/2016 [facility] Severe Severe Disease Active [facility] aortic aortic [facility] - stenosis stenosis Medica l [place] Anemia Anemia Disease Active [facility] HTN HTN Disease Active [facility] St (hypertens (hypertens Karine kes - ion) ion) [facility] Hyperlipid Hyperlipid Disease Active C CT St emia emia [facility] COPD COPD Disease Active [facility] St (chronic (chronic [facility] - obstructiv obstructiv Me dical e e Center pulmonary pulmonary disease) disease) Seizures Seizures Disease Active [facility] S t [facility] Peripheral Peripheral Disease Active C CT St vascular vascular [facility] - disease disease [facility] Blood Blood Disease Active Overview: [facility] clotting clotting DVT [facility] - tendency tendency 09/2017 Medica l Center 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 Me dical Center Atrial Atrial Disease Active [facility] fibrillati fibrillati Karine kes - on on [facility] Thoracoabd Thoracoabd Disease Active [facility] St ominal ominal [facility] - aneurysm aneurysm Medica l Center Abdominal Abdominal Disease Active [facility] aortic aortic [facility] - aneurysm aneurysm Medica l (AAA) (AAA) Center DVT (deep DVT (deep Disease Active [facility] venous venous [facility] - thrombosis thrombosis Me dical ) ) [place] Essential Problem Active 2020-12-01 Me moria tremor 01:14:44 l (disorder) [place] Essential tremor (disorder) Active Problem 12/01/2020 [facility] Subdural Problem Active 2020-12-01 Mem oria hematoma 01:14:44 l (disorder) Subdural He rmann hematoma (disorder) Active Problem 12/01/2020 [facility] Coxitis Problem Active 2020-12-01 Micah taylor (disorder) 01:14:44 l Coxitis [place] (disorder) Active Problem 12/01/2020 [facility] Lumbar Problem Active 2020-12-01 Memor ia radiculopa 01:14:44 l thy Lumbar Jevon (disorder) radiculopa thy (disorder) Active Problem 12/01/2020 [facility] NONTRAUMAT Diagnosis Active 2016-06-05 Memoria IC 23:20:00 l SUBDURAL Jevon HEMORRHAGE NONTRAUMAT , UNSPEC IC SUBDURAL HEMORRHAGE , UNSPEC Active [facility] Allergies, Adverse Reactions, Alerts Allergy Allergy Status Severity Reaction(s) Onset Inactive Treating Comm ents Source Name Type Date Date Clinician No Known No Known Active Memori a Medicati Medicati l on on Jevon Allergie Allergie s s Social History Social Habit Start Date Stop Date Quantity Comments Source History of tobacco Current smoker Ho charlie Islam use Sex Assigned At [facility] Alcohol Comment 2019-05-27 2019-05-27 quit ~2004 Pandya M ethodist 00:00:00 00:00:00 Alcohol intake 2018-03-23 2018-03-23 Current [facility] Hasmukh es - 00:00:00 00:00:00 non-drinker of Medical Ce nter alcohol (finding) Cigarettes smoked 2018-03-23 2018-03-[address] [facility] [address] [place] - current (pack per 00:00:00 00:00:00 [facility] day) - Reported Cigarette 2018-03-23 2018-03-[address] [facility] [address] [place] - pack-years 00:00:00 00:00:00 [facility] Tobacco use and 2018-03-23 2018-03-23 Current user [facility] St Griffith[facility] - exposure 00:00:00 00:00:00 [facility] Tobacco Comment 2017-12-09 2017-12-09 quit 2010 [facility] - 00:00:00 00:00:00 [facility] Smoking Status Start Date Stop Date Source Former smoker 2018-03-23 00:00:00 2018-03-23 00:00:00 [facility] Medications Ordered Filled Start Stop Current Ordering Indication Dosage Frequency Signature Comments Components Source Medication Medication Date Date Medication? Clinician (SIG) Name Name gabapentin Yes 300 mg = 1 M emoria 300 MG Oral 3-25 cap, PO, l Capsule 21:18: BID, # 60 Saskia nn 00 cap, 5 Refill(s), Pharmacy: [facility] [place], 65.455, kg, 11/01/20 16:06:00 CDT, Weight primidone Yes See Memoria 250 mg oral 3-25 Instructio l tablet 21:18: ns, TAKE Jevon 00 ONE (1) TABLET(S) BY MOUTH ONCE A DAY., # 30 ea, 5 Refill(s), Pharmacy: [facility], 65.455, kg, 11/01/20 16:06:00 CDT, Weight topiramate Yes = 1 tab, Mem oria 100 mg oral 3-25 PO, BID, # l tablet 21:18: 60 ea, 5 Jevon 00 Refill(s), Pharmacy: [facility] [place], 65.455, kg, 11/01/20 16:06:00 CDT, Weight gabapentin Yes 300 mg = 1 M emoria 300 MG Oral 5-07 cap, PO, l Capsule 15:51: BID, # 60 [place] nn 00 cap, 5 Refill(s), Pharmacy: [facility] [place] gabapentin Yes See Memoria 300 MG Oral 4-03 Instructio l Capsule 14:22: ns, # 90 [place] 27 ea, Refill(s) 1, TAKE ONE (1) CAPSULE(S) BY MOUTH AT BEDTIME., Pharmacy: [facility] [place] CHOLECALCIF 2018-08 Yes QD Take by Rodolfo [...] (four) st 00 times a day. amLODIPine Yes QD every [place] (NORVASC) 9-02 morning. Method i 2.5 mg 00:00: st tablet 00 gabapentin 2018- Yes QD nightly. Rodolfo concepcion (NEURONTIN) 8-22 Methodi 300 mg 00:00: st capsule 00 amitriptyli 0 Yes QD nightly. Jose D kim (ELAVIL) 7-04 Methodi 75 MG 00:00: st tablet 00 GABAPENTIN Yes = 1 cap, Mem oria CAP 300MG 5-28 PO, l 14:33: Bedtime, # [place] 53 30 ea, Refill(s) 5, Pharmacy: [facility] gabapentin Yes 300 mg = 1 M emoria 300 MG Oral 1-08 cap, PO, l Capsule 23:41: Bedtime, # Herm francisco 00 30 cap, 3 Refill(s), Pharmacy: [facility] amitriptyli Yes 75 mg = 1 M emoria ne 75 mg 1-04 tab, PO, l oral tablet 22:41: Bedtime, # [place] 00 30 tab, 0 Refill(s) amLODIPine Yes 5 mg = 1 Mem oria 5 mg oral 1-04 tab, PO, l tablet 22:41: Daily, # [place] 00 90 tab, 0 Refill(s) primidone Yes = 1 tab, Micah taylor 250 mg oral 1-04 PO, Daily, l tablet 22:35: # 30 tab, [place] 26 9 Refill(s), Pharmacy: [facility] topiramate Yes 100 mg = 1 M emoria 100 mg oral 1-04 tab, PO, l tablet 22:35: BID, # 60 [place] 00 tab, 9 Refill(s), Pharmacy: [facility] honey 100 % Yes 1{appli QD Apply [...] 03 daily. Center unit Tab tablet albuterol 0 Yes 1{puff} Inhale 1 C [...] 19:24: nightly. Medical tablet 03 Center fluticasone Yes 1{puff} QD Inhale [address] -vilanterol 8-20 puff by [facility] - (BREO 19:24: mouth via Medical ELLIPTA) 03 inhaler Center 200-25 daily. mcg/dose DsDv tiZANidine 0 Yes 4mg Take [address] (ZANAFLEX) 8-20 by mouth 3 Hasmukh es - 4 MG tablet 19:24: (three) Med ical 03 times Center daily as needed. primidone 0 Yes 250mg QD Take [address] (MYSOLINE) 8-20 mg by [facility] - 250 MG 19:24: mouth Medical tablet 03 daily. [place] topiramate 0 Yes 100mg Q.5D Take [address] (TOPAMAX) 8-20 mg by [facility] - 100 MG 19:24: mouth 2 Medical tablet 03 (two) Center times daily. warfarin 20180 Yes 9mg QD Take 9 mg [facility] [...] 3 tab, PO, l Oral Tablet 14:27: [id number], # [place] 00 90 tab, 0 Refill(s) Docusate 2015-08 Yes 100 mg = 1 Mem oria Sodium 100 0-21 cap, PO, l MG Oral 14:27: Q12H, # 20 Herm francisco Capsule 00 cap, 0 Refill(s) phenol 2015-08 No Notes: Memoria 0-21 Chlorasept l 03:35: ic [place] Jevon 00 (Same as: Chlorasept ic, Sore Throat [place]) WASTE: F/P - Black; E - Municipal Trash Bin Coumadin 2015-08 No 5 mg, 1 Memori a 0-21 tab, l 02:30: Route: PO, [place] 00 Drug form: TAB, ONCE, Dosing Weight 76.36, kg, Start date: 05/29/16 21:30:00 CDT, Stop date: 05/29/16 21:30:00 CDT Warfarin 2015-08 No 5 mg, 1 Memori a 0-20 tab, l 22:00: Route: PO, Jevon 00 Drug form: TAB, Q5PM, Dosing Weight 76.36, [...] Duration: 30 day, Stop date: 06/26/16 9:00:00 [employer]STEWARDESS Remeron 2015-08 No Notes: Memoria 0-19 (Same l 02:00: as:Remeron ) ibuprofen 2015-08 No Notes: Memori a 100 mg/5 mL 0-18 (Same as: l oral 20:00: Motrin Jevon suspension 00 Children's , Advil Children's ) Take with food. Duragesic-1 2015-08 No Notes: Micah taylor 00 0-18 (Same as: l 18:00: Duragesic) [place] 00 Check for product integrity. Apply to [...] Duration: 30 day, Stop date: 06/25/16 9:00:00 [employer]STEWARD[employer] Lisinopril 2015-08 No 40 mg, Memor ia 0-18 Route: PO, l 14:00: Drug form: [place] 00 TAB, Daily, Dosing Weight 76.36, kg, Start date: 05/27/16 9:00:00 CDT, Duration: 30 day, Stop date: 06/25/16 9:00:00 [employer] Miralax 2015-08 No Notes: Memoria 0-18 Dissolve l 14:00: in 8 oz of [place] 00 water or juice. (Same as: Miralax) remove 2015-08 No Notes: Memoria patch 0-18 Remove old l 14:00: patch [place] 00 before applicatio n of new patch. WASTE: F/P - P Waste Black; E - P Waste Black Keppra 2015-08 No Notes: Memoria 0-18 Same as l 12:25: Keppra Jevon 00 Mix with 100 mL NS, LR or D5W MEDICATION WASTE Product Size: 500 mg Product Wasted: ___ mg Keppra 2015-08 No Notes: Memoria 0-18 Same as l 09:00: Keppra [place] 00 Mix with 100 mL NS, LR or D5W MEDICATION WASTE Product Size: 500 mg Product Wasted: ___ mg Hydralazine 2015-08 No Notes: Micah taylor 0-18 (Same as: l 08:23: Apresoline Jevon 00 ) Push over 5 minutes heparin 2015-08 No Notes: Memoria 0-18 porcine l 05:00: heparin [place] 00 Fentanyl 2015-08 No Notes: Memoria 0-18 (Same as: l 04:47: Sublimaze) [place] 00 Preservat emanuel free. Lisinopril 2015-08 No Notes: Memor ia 0-18 (Same as: l 01:00: Prinivil, [place] 00 Zestril) Fentanyl 2015-08 No Notes: Memoria 0-18 (Same as: l 00:51: Sublimaze) [place] 00 Preservat emanuel free. pneumococca 2015-08 No Notes: Micah taylor l 13-valent 0-18 Lightly l vaccine 00:50: roll vial [place]ia nn 00 (DO NOT SHAKE) before administra tion. (Same as: Prevnar 13) Albuterol 2015-08 No Notes: Memori a 0.833 MG/ML 0-17 (Same as: l / 21:26: Duoneb) Jevon Ipratropium 00 [place] 0.167 MG/ML Inhalant Solution [DuoNeb] mirtazapine 2015-08 Yes 7.5 mg = 1 Memoria 7.5 mg oral 0-17 tab, PO, l tablet 19:52: Bedtime, # [place] nn 00 30 tab, 1 Refill(s) Eszopiclone 2015-08 Yes 1 mg = 1 Me moria 1 MG Oral 0-17 tab, PO, l Tablet 19:52: Bedtime, [place] [Lunesta] 00 PRN for insomnia, # 30 tab, 0 Refill(s) Trazodone 2015-08 No 50 mg = 1 Mem oria Hydrochlori 0-17 tab, PO, l de 50 MG 19:52: TID, # 90 Herm francisco Oral Tablet 00 tab, 0 Refill(s) Acetaminoph 2015-08 Yes 1 tab, PO, Memoria en 325 MG / 0-17 TID, PRN l Hydrocodone 19:52: Pain, # 60 [place] Bitartrate 00 tab, 0 10 MG Oral Refill(s) Tablet [[place] 10/325] lisinopril 2015-08 Yes 40 mg = 1 Me moria 40 mg oral 0-17 tab, PO, l tablet 19:52: Daily, 0 [place] 00 Refill(s) 12 HR 2015-08 Yes 0.1 mg = 1 Memori a Clonidine 0-17 tab, PO, l Hydrochlori 19:52: Bedtime, # [place] de 0.1 MG 00 30 tab, 0 Extended Refill(s) Release Tablet 72 HR 2015-08 Yes 1 patch, Memoria Fentanyl 0-17 TOP, Q48H, l 0.1 MG/HR 19:52: # 15 [place] Transdermal 00 patch, 0 Patch Refill(s) [Duragesic] [...] 0-17 INHALER, l 0.09 19:52: Q6H, PRN [place] MG/ACTUAT 00 for Metered wheezing, Dose # 8.5 gm, Inhaler 0 [ProAir Refill(s) HFA] Keppra 2015-08 No Notes: Memoria 0-17 Same as l 17:59: Keppra Jevon 00 Mix with 100 mL NS, LR or D5W MEDICATION WASTE Product Size: 500 mg Product Wasted: ___ mg Hydralazine 2015-08 No Notes: Micah taylor 0-17 (Same as: l 15:14: Apresoline [place] 00 ) Push over 5 minutes Nicotine 2015-08 No Notes: Memoria 0-17 (Same as: l 14:00: Habitrol) [place] 00 "Remove old patch before applicatio n of new patch" WASTE: F/P - P Waste Black; E - P Waste Black Keppra + 2015-08 No Notes: Memoria sodium 0-17 Same as l chloride 06:57: Keppra [place] 0.9% INJ 00 Mix with 100 mL 100 mL NS, LR or D5W MEDICATION WASTE Product Size: 500 mg Product Wasted: __0_ mg Keppra 2015-08 No 500 mg, Memoria 0-17 Route: l 06:28: IVPB, Jevon 00 Q24H, Dosing Weight 76.36, kg, Priority: STAT, Start date: 05/26/16 1:28:00 CDT, Duration: 30 day, Stop date: 06/24/16 1:28:00 [employer]EWARD[employer] sodium 2015-08 No 1,000 mL, Memori a chloride 0-17 Rate: 50 l 0.9% 1000 02:30: ml/hr, [place] ml INJ 00 Infuse 1,000 mL over: 20 hr, Route: IV, Dosing Weight 76.36 kg, Total Volume: 1,000, Start date: 05/25/16 21:30:00 CDT, Duration: 30 day, Stop date: 06/24/16 21:29:00 [employer] Acetaminoph 2015-08 No Notes: Micah taylor en 325 MG / 0-17 (Same as: l Hydrocodone 01:00: [place] Sask[place] nn Bitartrate 00 325/5) Do 5 MG Oral not exceed Tablet 4gm/day of [[place] acetaminop 5/325] hen. Tylenol 2015-08 No Notes: Do Memor ia 0-17 not exceed l 00:38: 4 gm/day. [place] 00 (Same as: Tylenol) Albuterol 2015-08 No Notes: SEE Me moria 0.83 MG/ML 0-16 RT l Inhalant 21:04: DOCUMENTAT Her mackenzie Solution 00 ION (Same as: Proventil) Ancef + 2015-08 No Notes: Memoria sodium 0-16 (Same As: l chloride 21:00: Ancef, [place] 0.9% INJ 00 Kefzol) 100 mL MEDICATION [...] 0-16 Rate: 125 l 0.154 20:57: ml/hr, MEQ/ML 00 Infuse Injectable over: 8 Solution hr, Route: IV, Dosing Weight 76.36 kg, Total Volume: 1,000, Start date: 05/25/16 15:57:00 CDT, Duration: 30 day, Stop date: 06/24/16 15:56:00 [employer]STEWARDESS Ancef 2015-08 No 2 gm, Memoria 0-16 Route: l 19:15: IVPB, [place] 00 ONCE, Dosing Weight 76.36, kg, Start date: 05/25/16 14:15:00 CDT, Duration: 1 doses or times, Stop date: 05/25/16 14:15:00 CDT Streptococc 2015-08 No Notes: Micah taylor us 0-16 Lightly l pneumoniae 14:00: roll vial He rmann serotype 1 00 (DO NOT capsular SHAKE) antigen before diphtheria administra [id number] tion. protein (Same as: conjugate Prevnar vaccine / 13) Streptococc us pneumoniae serotype 14 capsular antigen diphtheria [id number] protein conjugate vaccine / Streptococc us pneumoniae [...] Crush) sennosides, 2015-08 No Notes: Micah taylor [facility] 0-16 (Same as: l 14:00: Senokot) Jevon 00 Flomax 2015-08 No Notes: Memoria 0-16 (Same As: l 11:11: Flomax) [place] 00 "Do Not Crush" Dexamethaso 2015-08 No Notes: Micah taylor ne 0-16 Concentrat l 10:39: ion: [place] 00 4mg/ml Mannitol 2015-08 No Notes: Memoria 0-16 (Same as: l 10:16: Osmitrol) [place] 00 Infuse through 5 micron or smaller [...] 04:11: Mag-Ox Jevon 00 400) Magnesium oxide 667vh=230n g elemental magnesium Dose=____m g magnesium oxide (___mg elemental magnesium) Magnesium 2015-08 No Notes: Memori a Sulfate 0-16 WASTE: F/P l 04:11: - Sink; E [place] 00 - Municipal Trash Bin Calcium 2015-08 No Notes: Memoria Carbonate 0-16 (Same As: l 500 MG 04:11: Tums) Jevon Chewable 00 Calcium Tablet Carbonate 500 mg = 200 mg elemental calcium Dose = mg calcium carbonate ( mg elemental calcium) Calcium 2015-08 No Notes: Memoria Gluconate 0-16 WASTE: F/P l 04:11: - Sink; E Jevon 00 - Municipal Trash Bin potassium 2015-08 No Notes: Memori a phosphate-s 0-16 (Same as: l odium 04:11: Phos-NaK) [place] phosphate 00 Each 1.5 250 mg-280 gm [...] Duration: 30 day, Stop date: 06/23/16 22:10:00 [employer]/STEWARDESS, FOR ICU USE ONLY potassium 2015-08 No Notes: Memori a chloride 0-16 (Same as: l 04:11: KCL) [place] 00 Infuse over 2 hours. iodixanol 2015-08 No 60 mL, Memori a 0-16 Route: l 03:50: IVP, Drug [place] 00 Form: SOLN, Dosing Weight 76.364, kg, [...] Duration: 30 day, Stop date: 06/23/16 21:16:00 [employer]STEWARDESS Saline 2015-08 No Notes: Memoria Flush 0.9% 0-16 (Same as: l 03:17: BD Jevon 00 Posiflush) Bisacodyl 2015-08 No Notes: Memori a 0-16 (Same As: l 03:17: Dulcolax, Jevon 00 Bisco-Lax) Ondansetron 2015-08 No Notes: Micah taylor 0-16 (Same as: l 03:17: Zofran) [place] 00 MEDICATION WASTE Product Size: 4 mg Product Wasted: _0__ mg Acetaminoph 2015-08 No Notes: Do M emoria en 325 MG / 0-16 not exceed l Hydrocodone 03:17: 4gm/day of [place] Bitartrate 00 acetaminop 10 MG Oral hen. Tablet (Same as: [place] 325/10) Levetiracet 2015-08 No Notes: Micah taylor am 0-16 Same as l 03:17: Keppra [place] 00 Mix with 100 mL NS, LR [...] Duration: 30 day, Stop date: 06/23/16 22:16:00 [employer]STEWARDESS Acetaminoph 2015-08 No Notes: Micah taylor en 325 MG / 0-16 (Same as: l Hydrocodone 03:17: [place] Saskia nn Bitartrate 00 325/5) Do 5 MG Oral not exceed Tablet 4gm/day of acetaminop hen. Saline 2015-08 No Notes: Memoria Flush 0.9% 0-16 (Same as: l 01:56: BD [place] 00 Posiflush) Zanaflex Zanaflex Yes Home [address] [place] [facility] needed [facility] Lipitor Lipitor Yes Home [address] [facility] Breo Breo Yes Home [address] [facility] Ellipta Ellipta [place] [facility]ics Aspir-81 Aspir-81 Yes Home [address] [facility] [place] [facility] ProAir HFA ProAir HFA Yes Home [address] [facility] [place] needed [facility] Prilosec Prilosec Yes Home [address] [facility] [place] [facility] Amlodipine Amlodipine Yes Home [address] [facility] Besylate Besylate [place] [facility] Amlodipine Amlodipine Yes Home TAKE ONE [facility] Besylate Besylate [place] (1) [facility] - TABLET(S) Memoria BY MOUTH l TWICE A Outpati DAY. ent Clinics Atorvastati Atorvastati Yes Home TAKE ONE [facility] n Calcium n Calcium [place] (1) [facility] - TABLET(S) Memoria BY MOUTH l NIGHTLY. [facility] Clonidine Clonidine Yes Home [address] [facility] HCl HCl [place] at bedtime [facility] Lisinopril Lisinopril Yes Home [address] [facility] [place] [facility] Warfarin Warfarin Yes Home 1 tablet ( [facility] Sodium Sodium [place] 4 mg + 3 [facility] - mg) [facility] Primidone Primidone Yes Home [address] [facility] [place] [facility] Ferrous Ferrous Yes Home TAKE ONE [facility] Sulfate Sulfate [place] (1) [facility] - TABLET(S) Memoria BY MOUTH l TWICE A [facility] WITH ent MEALS. Clinics Amitriptyli Amitriptyli Yes Home [address] [facility] ne HCl ne HCl [place] [facility] Topamax Topamax Yes Home [address] [facility] [place] [facility] Warfarin Warfarin Yes Home [address] Sodium Sodium [place] [facility] Vitamin D3 Vitamin D3 Yes Home [address] [facility] [place] [facility] Immunizations Ordered Immunization Filled Immunization Date Status Commen ts Source Name Name FLUZONE HIGH-DOSE PF 2019-06-17 Completed [place] 00:[place]:00 [facility] Vital Signs Vital Name Observation Time Observation Value Comments Source Systolic (mm Hg) 2020-11-01 21:06:00 Micah Escoto Diastolic (mm Hg) 2020-11-01 [facility]:06:[facility] 2020-11-01 21:06:00 [facility] [place] Respitory Rate 2020-11-01 21:06:00 Julian Goreann Weight 2020-11-01 21:06:00 [facility] [place] Heart Rate 2018-08-13 22:09:00 [facility] [place] Respitory Rate 2018-08-13 22:09:00 Julian al Jev[place] Systolic (mm Hg) 2018-08-13 22:09:00 Micah rial [place] Diastolic (mm Hg) 2018-08-13 22:09:00 [facility] orial [place] BMI Calculated 2018-08-13 22:09:00 Julian al Jevon Height 2018-08-13 22:09:00 160.02 cm [facility] Weight 2018-08-13 22:09:00 [facility] Systolic (mm Hg) 2016-05-30 16:34:00 Micah rial [place] Diastolic (mm Hg) 2016-05-30 16:34:00 Mem orial [place] Temperature Oral (F) 2016-05-30 16:34:00 97.7 F [facility] [place] Heart Rate 2016-05-30 16:34:00 [facility] [place] Respitory Rate 2016-05-30 16:34:00 Memori al [place] Respitory Rate 2016-05-30 13:20:00 Memori al [place] Heart Rate 2016-05-30 13:20:00 [facility] [place] Systolic (mm Hg) 2016-05-30 13:20:00 Micah rial J[place] Diastolic (mm Hg) 2016-05-30 13:20:00 Mem orial [place] Temperature Oral (F) 2016-05-30 13:20:00 97.8 F [facility] [place] Systolic (mm Hg) 2016-05-30 08:32:00 Micah rial Jev[place] Diastolic (mm Hg) 2016-05-30 08:32:00 Mem orial [place] Temperature Oral (F) 2016-05-30 08:32:00 98.1 F [facility] [place] Respitory Rate 2016-05-30 08:32:00 Memori al [place] Heart Rate 2016-05-30 08:32:00 [facility] [place] BMI Calculated 2016-05-25 07:10:00 [facility]ori al [place] Weight 2016-05-25 07:10:00 [facility] [place] Height 2016-05-25 07:10:00 172.72 cm [facility] [place] Weight 2016-05-25 01:40:00 [facility] [place] BMI Calculated 2016-05-25 01:40:00 Memori al [place] Height 2016-05-25 01:40:00 170.18 cm [facility] Jevon Procedures Procedure Date / Time Performed Performing Clinician [facility] e Abdominal aortic aneurysm Memori al Jevon stenting<sup>1</sup> Bypass / graft of vein [facility] Jevon Hernia repair [facility] Plan of Care Planned Activity Planned Date Details Comments Source Future Scheduled 2021-04-[address] [facility] 00:00:00 (Season Ended) [code = Medic al Center INFLUENZA VACCINE (Season Ended)] Future Scheduled 2021-03-10 INFLUENZA VACCINE [place] [facility] 00:00:00 [code = INFLUENZA VACCINE] Future Scheduled 2020-08-[address] [facility] - Test 00:00:00 (12+) [code = Medical Center DEPRESSION SCREENING (12+)] Future Scheduled 2008-02-22 65+ PNEUMOCOCCAL Pand[facility] Test 00:00:00 VACCINE (2 of 2 - [...] Scheduled 1993 SHINGLES VACCINES (#1) [place] [facility] 00:00:00 [code = SHINGLES VACCINES (#1)] [...] Scheduled 1961 Hepatitis C screening [place] [facility] 00:00:00 (procedure) [code = 103332197] Future Scheduled 1961 HEPATITIS C [facility]CRE[facility]ING [facility] 00:00:00 [code = HEPATITIS C Medical Center SCREENING] Future Scheduled 1955 COVID-19 VACCINE (1) Rodolfo ston [facility] Test 00:00:00 [code = COVID-19 VACCINE (1)] Future Scheduled 1955 COVID-19 VACCINE (1) [facility] Test 00:00:00 [code = COVID-[address] VACCINE (1)] Encounters Start End Encounter Admission Attending Care Care Encounter Source Date/Time Date/Time Type Type Clinicians Facility Department ID 2021-01-08 2021-01-08 Outpatient [facility] [id number] [facility] 2020-12-05 2020-12-05 Outpatient [facility] [id number] [facility] 2020-11-27 2020-11-28 Outpatient MHMISCHER MHMISCHER [id number] 15:11:31 23:59:59 03 2020-11-01 2020-11-01 Outpatient Krell, MHMISCHER MHMISCHER [id number] 16:00:00 23:59:59 Jamesbarbi Salvador 2020-10-23 2020-10-23 Outpatient [facility] [id number] [facility] 2020-10-18 2020-10-18 Outpatient Earl, MHMISCHER MHMISCHER [id number] 15:30:00 15:30:00 James 11 [place] 2020-10-12 2020-10-12 Outpatient Earl, MHMISCHER MHMISCHER [id number] 09:00:00 09:00:00 James 10 [place] 2020-07-03 2020-07-03 Outpatient [facility] [id number] [facility] 2020-06-19 2020-06-19 Outpatient Earl, MHMISCHER MHMISCHER [id number] 14:00:00 14:00:00 James 07 [place] 2020-06-19 2020-06-19 Outpatient Earl, MHMISCHER MHMISCHER [id number] 14:00:00 14:00:00 James 08 [place] 2020-06-07 2020-06-07 Outpatient [facility] [id number] [facility] 2020-05-30 2020-05-30 Outpatient [facility] [id number] [facility] 2020-03-05 2020-03-05 [facility] [id number] [facility] 13:30:00 13:30:00 [place] [employer] s - [place] [facility] Medicine Outpati ent Clinics 2020-01-26 2020-01-26 [facility] [id number] 11:08:00 11:08:00 [place] [employer] s - [place] [facility] Medicine Outpati ent Clinics 2019-12-27 2019-12-27 [facility] [id number] [facility] 14:45:00 14:45:00 [place] [employer] [facility] - [place] [facility] Medicine Outpati ent Clinics 2019-12-15 2019-12-15 Outpatient Earl MISCHER MHMISCHER [id number] 10:45:00 23:59:59 James 06 [place] 2019-11-15 2019-11-15 Outpatient Earl MISCHER MHMISCHER [id number] 09:15:00 09:15:00 James 05 [place] 2019-09-16 2019-09-16 [facility] [id number] [facility] 14:58:00 14:58:00 [place] [employer] [facility] Medicine Outpati ent Clinics 2019-09-14 2019-09-14 [facility] [id number] [facility] 14:45:00 14:45:00 t [employer] [facility] Medicine Outpati ent Clinics 2019-08-31 2019-08-31 Outpatient Earl, MISCHER MISCHER [id number] 13:45:00 13:45:00 Jamse 04 [place] 2019-08-19 2019-08-19 [facility] [id number] [facility] 14:49:00 14:49:00 [place] [employer] s - [place] [facility] Medicine Outpati ent Clinics 2019-07-20 2019-07-20 [facility] [id number] 15:09:00 15:09:00 [place] [employer] s - [place] [facility] Medicine Outpati ent Clinics 2019-06-30 2019-06-30 [facility] [id number] [facility] 08:49:00 08:49:00 [place] [employer] [facility] Medicine Outpati ent Clinics 2019-06-27 2019-06-27 [facility] [id number] 15[facility]00:00 15:00:00 t [employer] [facility] - [place] [facility] Outpati ent Clinics 2019-06-08 2019-06-17 Inpatient [facility] [id number] [place] 00:00:00 00:00:00 DENZEL [facility] 2019-05-13 2019-05-13 [id number] 15:00:00 15:00:00 Jamesbarbi Salvador 2019-03-15 2019-03-15 [facility] [id number] 16:15:00 16:15:00 t [employer] [facility] - [place] [facility] Outpati ent Clinics 2019-02-22 2019-02-22 [facility] [id number] 10:56:00 10:56:00 t [employer] [facility] - [place] [facility] Medicine Outpati ent Clinics 2019-01-21 2019-01-21 [facility] [id number] 16:26:00 16:26:00 t [employer] [facility] - [place] [facility] Outpati ent Clinics 2018-12-07 2018-12-07 [facility] [id number] 14:15:00 14:15:00 t Specialty/U Karine kes - Specialty rology [facility] a /Urology Clinic l Clinic Outpati ent Clinics 2018-12-01 2018-12-01 [facility] [id number] 14:15:00 14:15:00 t [employer] s - Drive [facility] Medicine Outpati ent Clinics 2018-11-10 2018-11-10 [facility] [id number] [facility] 15:15:00 15:15:00 t [employer] [address] [facility] Medicine Outpati ent Clinics 2018-08-17 2018-08-18 Outpatient MHMISCHER MISCHER [id number] 15:18:00 23:59:59 02 2018-08-13 2018-08-13 Outpatient Earl [facility] [id number] 15:45:00 23:59:59 James Александр Salvador 2018-08-12 2018-08-12 [facility] [id number] [facility] 16:00:00 16:00:[address] [place] [address] [facility] s - Drive [facility] Medicine l Medicine Outpati ent Clinics 2018-05-19 2018-05-19 [facility] [id number] 08:50:00 08:50:[address] [place] [address] [facility] s - Drive [facility] l Medicine Outpati ent Clinics 2018-05-11 2018-05-11 [facility] [id number] 09:14:00 09:14:[address] [place] [address] Luke s - Drive [facility] l Medicine Outpati ent Clinics 2018-04-07 2018-04-07 [facility] [id number] 15:15:00 15:15:00 [place] [facility] s - Drive [facility] Medicine Outpati ent Clinics 2018-04-05 2018-04-05 [facility] [id number] [facility] 10:00:00 10:00:00 [place] [facility] s - Drive [facility] Medicine l Medicine Outpati ent Clinics 2018-03-31 2018-03-31 [facility] [id number] [facility] 09:00:00 09:00:00 [place] [facility] s - Drive [facility] Medicine Outpati ent Clinics 2018-03-23 2018-03-23 [facility] [id number] [facility] 09:00:00 09:00:00 [place] Luke s - Drive [facility] Medicine Outpati ent Clinics 2018-03-04 2018-03-04 [facility] [id number] 16:21:00 16:21:[address] [place] [address] [place] s - Drive [facility] Medicine Outpati ent Clinics 2018-02-24 2018-02-24 [facility] [id number] [facility] 16:02:00 16:02:[address] [place] [address] [place] s - Drive [facility] Medicine Outpati ent Clinics 2018-02-24 2018-02-24 [facility] [id number] 14:30:00 14:30:[address] [place] [address] [place] s - Drive [facility] l Medicine Outpati ent Clinics 2018-02-15 2018-02-15 [facility] [id number] [facility] 16:32:00 16:32:[address] [place] [address] [place] s - Drive [facility] Medicine l Medicine Outpati ent Clinics 2018-01-01 2018-01-01 [facility] [id number] 10:03:00 10:03:[address] [place] [address] [place] s - Drive [facility] Medicine l Medicine Outpati ent Clinics 2017-12-30 2017-12-30 [facility] [id number] [facility] 16:56:00 16:56:[address] [place] [address] [place] s - Drive [facility] Medicine l Medicine Outpati ent Clinics 2017-12-30 2017-12-30 [facility] [id number] 14:30:00 14:30:[address] [place] [address] [place] - Drive [facility] Medicine l Medicine Outpati ent Clinics 2017-12-24 2017-12-24 [facility] [id number] 09:12:00 09:12:[address] [place] [address] [place] - Drive [facility] Medicine l Medicine Outpati ent Clinics 2017-12-22 2017-12-22 [facility] [id number] 08:18:00 08:18:[address] [place] [address] [place] - Drive [facility] Medicine l Medicine Outpati ent Clinics 2017-12-10 2017-12-10 [facility] [id number] [facility] 13:37:00 13:37:[address] [place] [address] [place] - Drive [facility] Medicine l Medicine Outpati ent Clinics 2017-12-03 2017-12-03 [facility] [id number] [facility] 15:29:00 15:29:[address] [place] [address] [place] - Drive [facility] Medicine l Medicine Outpati ent Clinics 2017-12-01 2017-12-01 [facility] [id number] 10:54:00 10:54:[address] [place] [address] [place] [address] [place] - Drive [facility] Medicine l Medicine Outpati ent Clinics 2017-11-13 2017-11-13 [facility] [id number] 12:22:00 12:22:[address] [place] [address] [place] - Drive [facility] Medicine Outpati ent Clinics 2017-11-13 2017-11-13 [facility] [id number] [facility] 09:51:00 09:51:[address] [place] [address] [place] [address] [place] - Drive [facility] Medicine Outpati ent Clinics 2017-11-10 2017-11-10 [facility] [id number] [facility] 15:34:00 15:34:00 [place] [facility] s - Drive [facility] Medicine Outpati ent Clinics 2017-11-04 2017-11-04 [facility] [id number] 15:30:00 15:30:00 [place] [facility] s - Drive [facility] Medicine Outpati ent Clinics 2016-05-24 2016-05-30 Outpatient [facility] [id number] 20:36:00 11:59:00 Abraham Reid 67 Results Test Description Test Time Test Comments Results Result Comments Source AFB CULTURE + SMEAR 2018-05-02 20:50:00 Test Item Value Reference Range Interpretation Comme nts CULTURE (BEAKER) (test code = 1095) No acid-fast bacilli isolated i n 42 days AFB SMEAR (BEAKER) (test code = 994) No acid fast bacilli seen AFB CULTURE + [id number] 20:50:00 Test Item Value Reference Range Interpretation Comments CULTURE (BEAKER) (test No acid-fast bacilli code = 1095) isolated in 42 days AFB SMEAR (BEAKER) No acid fast bacilli (test code = 994) seen FUNGUS CULTURE + [id number] 10:14:00 Test Item Value Reference Range Interpretation Comments CULTURE (BEAKER) (test No fungus isolated in code = 1095) 28 days FUNGUS SMEAR (BEAKER) No fungi seen (test code = 1406) FUNGUS CULTURE + [id number] 10:14:00 Test Item Value Reference Range Interpretation Comments CULTURE (BEAKER) (test No fungus isolated in code = 1095) 28 days FUNGUS SMEAR (BEAKER) No fungi seen (test code = 1406) VANCOMYCIN LEVEL, [id number] 05:33:00 Test Item Value Reference Range Interpretation Comments VANCOMYCIN RANDOM (BEAKER) (test 16.9 ug/mL code = 523) Reference Range: No NormalsBASIC METABOLIC [id number] 05:29:00 Test Item Value Reference Range Interpretation [...] NOT APPLICABLE FOR DIALYSIS PATIEN TS. PROTHROMBIN TIME/[id number] 05:21:00 Test Item Value Reference Range Interpretation [...] NOT APPLICABLE FOR DIALYSIS PATIEN TS. ANAEROBIC [id number] 08:59:00 Test Item Value Reference Range Interpretation Comments CULTURE (BEAKER) (test No anaerobes isolated code = 1095) ANAEROBIC [id number] 08:58:00 Test Item Value Reference Range Interpretation Comments CULTURE (BEAKER) (test No anaerobes isolated code = 1095) VANCOMYCIN LEVEL, [id number] 05:18:00 Test Item Value Reference Range Interpretation Comments VANCOMYCIN RANDOM (BEAKER) (test 19.8 ug/mL code = 523) Reference Range: No NormalsPROTHROMBIN TIME/[id number] 04:55:00 Test Item Value Reference Range Interpretation [...] 10.0-20.0 H code = 522) BASIC METABOLIC [id number] 15:13:00 Test Item Value Reference Range Interpretation [...] NOT APPLICABLE FOR DIALYSIS PATIEN TS. PROTHROMBIN TIME/[id number] 06:16:00 Test Item Value Reference Range Interpretation [...] heart valves.While on warfarin.LACTIC ACID, VENOUS, WHOLE [id number] 06:09:00 Test Item Value Reference Range Interpretation Comments LACTATE BLOOD VENOUS (2) (BEAKER) 0.6 mmol/L 0.5-2.2 (test code = 2872) Effective 12/12/2015: Units/Reference Range ChangeNew: 0.5-2.2 mmol/L Previous: 5-20 mg/dLTISSUE [id number] 11:35:00Surgical Pathology Report Case: [id number] Authorizing Provider: Aris Parker MD Collected: 03/23/2018 1136 Ordering Location: [facility] Received: 03/23/2018 1158 PERIOPERATIVE SERVICES Pathologist: Lanie Jaquez MD Specimen: Groin, Right, Right Groin Tissue SOFT TISSUE, RIGHT GROIN, DEBRIDEMENT: - FIBROADIPOSE TISSUE WITH FAT NECROSIS, ACUTE AND CHRONIC INFLAMMATION, AND FOREIGN BODY GIANT CELL REACTION Signing Pathologist Direct Phone Line: [phone] signed by Lanie Jaquez MD on 03/26/2018 at 11:35 [id number] groin tissueThe specimen is received in a formalin-filled container and labeled with the patient's information and labeled "right groin tissue" and consists of a segment of rodríguez-chapman hemorrhagic soft tissue measuring 3 x 1.6 x 0.5 cm. Facility Security Officer sections are submitted A1.CG/pl Performed.SURGICALLY OBTAINED CULTURE + GRAM [id number] 09:47:00 Test Item Value Reference Range Interpretation Comments GRAM STAIN RESULT (BEAKER) <1+ WBCs (test code = 1123) GRAM STAIN RESULT (BEAKER) No organisms seen (test code = 34126) SURGICALLY OBTAINED CULTURE + GRAM [id number] 09:45:00 Test Item Value Reference Interpretation Comments [...] No organisms seen (BEAKER) (test code = 545794) BASIC METABOLIC [id number] 05:17:00 Test Item Value Reference Range Interpretation [...] NOT APPLICABLE FOR DIALYSIS PATIEN TS. PROTHROMBIN TIME/[id number] 05:06:00 Test Item Value Reference Range Interpretation [...] NOT APPLICABLE FOR DIALYSIS PATIEN TS. PROTHROMBIN TIME/[id number] 06:28:00 Test Item Value Reference Range Interpretation [...] valves.While on warfarin.CBC W/PLT COUNT & AUTO [id number] 06:18:00 Test Item Value Reference Range Interpretation [...] (BEAKER) (test code = 2801) VANCOMYCIN LEVEL, [id number] 17:22:00 Test Item Value Reference Range Interpretation Comments VANCOMYCIN TROUGH (BEAKER) (test 14.6 ug/mL 10.0-20.0 code = 522) SPIN/CONCENTRATION [id number] 10:53:00 Test Item Value Reference Range Interpretation Comments CONCENTRATION CHARGED (BEAKER) (test Done code = 0340) BASIC METABOLIC [id number] 07:34:00 Test Item Value Reference Range Interpretation [...] NOT APPLICABLE FOR DIALYSIS PATIEN TS. PROTHROMBIN TIME/[id number] 07:05:00 Test Item Value Reference Range Interpretation [...] (BEAKER) (test code = 2801) BASIC METABOLIC [id number] 06:54:00 Test Item Value Reference Range Interpretation [...] NOT APPLICABLE FOR DIALYSIS PATIEN TS. PROTHROMBIN [id number] 05:47:00 Test Item Value Reference Range Interpretation [...] PERCENT (BEAKER) (test code = 2801) TISSUE [id number] 16:28:00Surgical Pathology Report Case: [id number] Authorizing Provider: Christian Hdz MD Collected: 02/02/2018 194 Ordering Location: [facility] [employer] Received: 02/03/2018 0813 Pathologist: Sidney Wright MD Specimen: Plaque ARTERY, RIGHT EMERALD, ENDARTERECTOMY:CALCIFIC ATHEROSCLEROTIC PLAQUE WITH EROSION AND ATTACHED ORGANIZING THROMBUS Signing Pathologist Direct Phone Line: [phone] signed by Sidney Wright MDon 02/09/2018 at 4:28 [id number]; [id number] femoral artery plaqueRight femoral artery plaqueThe specimen is received in a formalin-filled container and labeled with the patient's information and labeled "right femoral artery plaque and consists of two calcified fragments of tissue both measuring 2 cm in length ranging in diameter from 0.6 to 1 cm and separate segment of hemorrhagic calcified tissue measuring 2.5 x 1.5 x 1 cm in aggregate. Facility Security Officer sections are submitted A1 for decalcification. CG/pl [id number] 06:08:00 Test Item Value Reference Range Interpretation Comments PHOSPHORUS (BEAKER) (test code = 2.2 mg/dL 2.3-4.7 L 604) [id number] 06:08:00 Test Item Value Reference Range Interpretation Comments MAGNESIUM (BEAKER) (test code = 2.1 mg/dL 1.6-2.6 627) BASIC METABOLIC [id number] 06:08:00 Test Item Value Reference Range Interpretation [...] (BEAKER) (test code = 413) HEMOGLOBIN AND [id number] 11:55:00 Test Item Value Reference Range Interpretation Comments HEMOGLOBIN (BEAKER) (test code = 8.4 GM/DL 13.7-17.5 L 410) HEMATOCRIT (BEAKER) (test code = 28.9 % 40.1-51.0 L 411) [id number] 04:57:00 Test Item Value Reference Range Interpretation Comments PHOSPHORUS (BEAKER) (test code = 2.5 mg/dL 2.3-4.7 604) [id number] 04:57:00 Test Item Value Reference Range Interpretation Comments MAGNESIUM (BEAKER) (test code = 1.7 mg/dL 1.6-2.6 627) BASIC METABOLIC [id number] 04:57:00 Test Item Value Reference Range Interpretation [...] = 413) CBC W/PLT COUNT & AUTO [id number] 15:56:00 Test Item Value Reference Range Interpretation [...] (BEAKER) (test code = 2801) COMPREHENSIVE METABOLIC [id number] 05:49:00 Test Item Value Reference Range Interpretation [...] S NOT APPLICABLE FOR DIALYSIS PATIEN TS. [id number] 05:48:00 Test Item Value Reference Range Interpretation Comments PHOSPHORUS (BEAKER) (test code = 2.9 mg/dL 2.3-4.7 604) [id number] 05:48:00 Test Item Value Reference Range Interpretation Comments MAGNESIUM (BEAKER) (test code = 1.7 mg/dL 1.6-2.6 627) CBC W/PLT COUNT & AUTO [id number] 04:20:00 Test Item Value Reference Range Interpretation [...] (BEAKER) (test code = 2801) VANCOMYCIN LEVEL, [id number] 23:58:00 Test Item Value Reference Range Interpretation Comments VANCOMYCIN TROUGH (BEAKER) (test code < ug/mL 10.0-20.0 L = 522) PROTHROMBIN TIME/[id number] 23:27:00 Test Item Value Reference Range Interpretation Comments PROTIME (BEAKER) (test code = 15.6 seconds 11.7-14.7 H 759) INR (BEAKER) (test code = 370) 1.2 <=5.9 RECOMMENDED COUMADIN/WARFARIN INR THERAPY RANGESSTANDARD DOSE: 2.0 - 3.0 Includes: PROPHYLAXIS forvenous thrombosis, systemic embolization; TREATMENT for venous thrombosis and/or pulmonary embolus.HIGH RISK: Target INR is 2.5-3.5 for patients with mechanical heart valves.[id number] 23:27:00 Test Item Value Reference Range Interpretation Comments FIBRINOGEN LEVEL (BEAKER) (test 276 mg/dl 225-434 code = 658) [id number] 23:27:00 Test Item Value Reference Range Interpretation Comments PARTIAL THROMBOPLASTIN TIME 29.8 seconds 22.5-36.0 (BEAKER) (test code = 760) CBC W/PLT COUNT & AUTO [id number] 23:22:00 Test Item Value Reference Range Interpretation [...] 0-1 PERCENT (BEAKER) (test code = 2801) [id number] 23:21:00 Test Item Value Reference Range Interpretation Comments PHOSPHORUS (BEAKER) (test code = 3.1 mg/dL 2.3-4.7 604) [id number] 23:21:00 Test Item Value Reference Range Interpretation Comments MAGNESIUM (BEAKER) (test code = 1.7 mg/dL 1.6-2.6 627) BASIC METABOLIC [id number] 23:21:00 Test Item Value Reference Range Interpretation [...] APPLICABLE FOR DIALYSIS PATIEN TS. HEPATIC FUNCTION [id number] 23:21:00 Test Item Value Reference Range Interpretation [...] U/L 6-55 347) LACTIC ACID, ARTERIAL, WHOLE [id number] 23:15:00 Test Item Value Reference Range Interpretation Comments LACTATE BLOOD ARTERIAL (2) 1.7 mmol/L 0.5-2.2 (BEAKER) (test code = 2874) Effective 12/12/2015: Units/Reference Range ChangeNew: 0.5-2.2 mmol/L Previous: 5-20 mg/dLRAD, CHEST, 1 VIEW, NON [id number] 23:12:00Reason for exam:- >s/p cardiac surgeryShould this [...] MDReport Verified Date/Time: 02/02/2018 23:12:37 Reading Location: [address] Consult Reading Room Electronicallysigned by: DENZEL HUITRON MD on 02/02/2018 11:12 PMHEMOGLOBIN AND [id number] 23:06:00 Test Item Value Reference Range Interpretation Comments HEMOGLOBIN (BEAKER) (test code = 11.3 GM/DL 13.7-17.5 L 410) HEMATOCRIT (BEAKER) (test code = 37.7 % 40.1-51.0 L 411) CALCIUM, [id number] 22:57:00 Test Item Value Reference Range Interpretation Comments CALCIUM IONIZED (BEAKER) (test 1.02 mmol/L 1.12-1.27 L code = 698) PH, BLOOD (BEAKER) (test code = 7.38 1810) OXYGEN SATURATION, [id number] 22:56:00 Test Item Value Reference Range Interpretation Comments O2 SATURATION (MEASURED) (BEAKER) 72.2 % (test code = 1455) PROTHROMBIN [id number] 19:20:00 Test Item Value Reference Range Interpretation Comments PROTIME (BEAKER) (test code = 17.6 seconds 11.7-14.7 H 759) INR (BEAKER) (test code = 370) 1.5 <=5.9 RECOMMENDED COUMADIN/WARFARIN INR THERAPY RANGESSTANDARD DOSE: 2.0 - 3.0 Includes: PROPHYLAXIS forvenous thrombosis, systemic embolization; TREATMENT for venous thrombosis and/or pulmonary embolus.HIGH RISK: Target INR is 2.5-3.5 for patients with mechanical heart valves.[id number] 19:20:00 Test Item Value Reference Range Interpretation Comments FIBRINOGEN LEVEL (BEAKER) (test 240 mg/dl 225-434 code = 658) [id number] 19:20:00 Test Item Value Reference Range Interpretation Comments PARTIAL THROMBOPLASTIN TIME 33.3 seconds 22.5-36.0 (BEAKER) (test code = 760) PLATELET [id number] 19:00:00 Test Item Value Reference Range Interpretation Comments PLATELET COUNT (BEAKER) (test 149 K/CU MM 150-450 L code = 756) POTASSIUM-STAT [id number] 18:54:00 Test Item Value Reference Range Interpretation Comments POTASSIUM (BEAKER) (test code = 4.2 meq/L 3.6-5.5 379) HEMOGLOBIN-STAT [id number] 18:54:00 Test Item Value Reference Range Interpretation Comments HEMOGLOBIN (BEAKER) (test code = 9.9 g/dL 13.0-16.8 L 410) HEMATOCRIT-STAT [id number] 18:54:00 Test Item Value Reference Range Interpretation Comments HEMATOCRIT (BEAKER) (test code = 411) 29.0 % 40.0-50.0 L BLOOD GAS, [id number] 18:54:00 Test Item Value Reference Range Interpretation [...] C (test code = 1818) SODIUM NA-STAT [id number] 18:54:00 Test Item Value Reference Range Interpretation Comments SODIUM (BEAKER) (test code = 381) 133 meq/L 135-148 L GLUCOSE-STAT [id number] 18:54:00 Test Item Value Reference Range Interpretation Comments GLUCOSE RANDOM (BEAKER) (test code 134 mg/dL 70-110 H = 652) HGB/HCT (H&H) - STAT [id number] 18:54:00 Test Item Value Reference Range Interpretation Comments HEMOGLOBIN (BEAKER) (test code = 9.9 GM/DL 13.0-16.8 L 410) HEMATOCRIT (BEAKER) (test code = 29.0 % 40.0-50.0 L 411) CALCIUM, [id number] 18:54:00 Test Item Value Reference Range Interpretation Comments CALCIUM IONIZED (BEAKER) (test 1.03 mmol/L 1.12-1.27 L code = 698) PH, BLOOD (BEAKER) (test code = 7.37 1810) CALCIUM, [id number] 18:13:00 Test Item Value Reference Range Interpretation Comments CALCIUM IONIZED (BEAKER) (test 1.02 mmol/L 1.12-1.27 L code = 698) PH, BLOOD (BEAKER) (test code = 7.36 1810) [id number] 17:42:00 Test Item Value Reference Range Interpretation Comments ACTIVATED CLOTTING TIME 279 sec TEST ED AT [place] [address] ([facility] (test code = [place] [address]) [id number] 17:42:00 Test Item Value Reference Range Interpretation Comments ACTIVATED CLOTTING TIME 224 sec TEST ED AT [place] [address] ([facility] (test code = [place] [address]) [address] [id number] 17:42:00 Test Item Value Reference Range Interpretation Comments ACTIVATED CLOTTING TIME 158 sec TEST ED AT [place] [address] ([facility] (test code = [facility] 441) [address] HGB/HCT (H&H) - STAT [id number] 16:30:00 Test Item Value Reference Range Interpretation Comments HEMOGLOBIN (BEAKER) (test code = 9.9 GM/DL 13.0-16.8 L 410) HEMATOCRIT (BEAKER) (test code = 29.0 % 40.0-50.0 L 411) POTASSIUM-STAT [id number] 16:30:00 Test Item Value Reference Range Interpretation Comments POTASSIUM (BEAKER) (test code = 3.7 meq/L 3.6-5.5 379) SODIUM NA-STAT [id number] 16:30:00 Test Item Value Reference Range Interpretation Comments SODIUM (BEAKER) (test code = 381) 134 meq/L 135-148 L GLUCOSE-STAT [id number] 16:30:00 Test Item Value Reference Range Interpretation Comments GLUCOSE RANDOM (BEAKER) (test code 105 mg/dL 70-110 = 652) [id number] 16:17:00 Test Item Value Reference Range Interpretation Comments ACTIVATED CLOTTING TIME 301 sec TEST ED AT [place] [address] [facility] (test code = [place] [address]) [address] BLOOD GAS, [id number] 16:16:00 Test Item Value Reference Range Interpretation [...] (test 37.0 C code = 1818) CALCIUM, [id number] 16:11:00 Test Item Value Reference Range Interpretation Comments CALCIUM IONIZED (BEAKER) (test 1.09 mmol/L 1.12-1.27 L code = 698) PH, BLOOD (BEAKER) (test code = 7.42 1810) MR, MRA, EXTREMITY, LOWER, WITHOUT FOLLOW, WITH [id number] 17:43:00 Bilateral extremitiesChristian Hdz MD [facility] Yoni Hdz MD [facility] of P[facility] at [facility]/Melba of Peripheral Vascular Medicine at [address] [place], [place] [email or web address] CenterFINAL REPORT MRA of the lower [...] reconstruction was performed by an independent workstation ([employer]). Please refer to the contrast sheetscanned in [...] CT scan. The proximal abdominal aorta is chemehuevi. The celiac axis, SMA are patent with [...] coil embolisation procedure as per EPIC. The chemehuevi left external iliac artery and the left [...] centimeters of the left SFA could be chemehuevi. However, there is likely a left femoral [...] posterior tibial artery. In the right, the chemehuevi right SFA is seen to be occluded. [...] though thereafter, it is occluded. 4. The chemehuevi left SFA is likely occluded and a left femoral to distal popliteal bypass graft is identified that is patent with no proximal or distal anastomotic stenosis. Essentially three-vessel runoff is seen in the left lower extremity. 5. In the right, the chemehuevi right SFA is o ccluded. It appears [...] MDReport Verified Date/Time: 01/28/2018 17:43:09 Reading Location: [place] [address] Cardiology MRI C METABOLIC [id number] 07:36:00 Test Item Value Reference Range Interpretation [...] 0-0 (BEAKER) (test code = 413) PROTHROMBIN TIME/[id number] 14:15:00 Test Item Value Reference Range Interpretation [...] valves.Within 24 hours, if on CoumadinBASIC METABOLIC [id number] 06:41:00 Test Item Value Reference Range Interpretation [...] (BEAKER) (test code = 413) BLOOD GAS, [id number] 10:39:00 Test Item Value Reference Range Interpretation [...] code = 1819) 46.0 % SODIUM NA-STAT [id number] 10:39:00 Test Item Value Reference Range Interpretation Comments SODIUM (BEAKER) (test code = 381) 131 meq/L 135-148 L POTASSIUM-STAT [id number] 10:39:00 Test Item Value Reference Range Interpretation Comments POTASSIUM (BEAKER) (test code = 3.1 meq/L 3.6-5.5 L 379) GLUCOSE-STAT [id number] 10:39:00 Test Item Value Reference Range Interpretation Comments GLUCOSE RANDOM (BEAKER) (test code 121 mg/dL 70-110 H = 652) HGB/HCT (H&H) - STAT [id number] 10:39:00 Test Item Value Reference Range Interpretation Comments HEMOGLOBIN (BEAKER) (test code = 8.1 g/dL 13.0-16.8 L 410) HEMATOCRIT (BEAKER) (test code = 24.0 % 40.0-50.0 L 411) [id number] 10:10:00 Test Item Value Reference Range Interpretation Comments ACTIVATED CLOTTING TIME 224 sec TEST ED AT [facility] 6720 (BEAKER) (test code = [place] [address]) [address] CBC (HEMOGRAM ONLY)2017-12-05 06:51:00 Test Item Value [...] (BEAKER) (test code = 413) BASIC METABOLIC [id number] 06:44:00 Test Item Value Reference Range Interpretation [...] S NOT APPLICABLE FOR DIALYSIS PATIEN TS. [id number] 12:39:00 Test Item Value Reference Range Interpretation Comments ACTIVATED CLOTTING TIME 136 sec TEST ED AT [facility] 6720 (BEAKER) (test code = [place] [address]) [address] [id number] 11:51:00 Test Item Value Reference Range Interpretation Comments ACTIVATED CLOTTING TIME 147 sec TEST ED AT [place] [address] ([facility] (test code = [place] [address]) [address] [id number] 09:21:00 Test Item Value Reference Range Interpretation Comments ACTIVATED CLOTTING TIME 213 sec TEST ED AT [place] [address] ([facility] (test code = [place] [address]) [address] [id number] 08:58:00 Test Item Value Reference Range Interpretation Comments ACTIVATED CLOTTING TIME 191 sec TEST ED AT [place] [address] ([facility] (test code = [place] [address]) [address] CT, CTA [id number] 11:56:00Addendum BeginsREPORT STATUS:A Addendum: The images were reviewed with Dr. Hdz. There is a missing dictation, specifically, despite the aortic bypass surgery the chemehuevi left common iliac artery is still patent [...] MDReport Verified Date/Time: 11/27/2017 11:56:33 Reading Location: [place] [address] Cardiology MRIAddendum EndsAddendum BeginsREPORT STATUS:A ADDENDUM: Study [...] Barroweport Verified Date/Time: 11/26/2017 18:03:42 Reading Location: [place] [address] Angio Body Reading RoomAddendum EndsFINAL REPORT CT [...] takeoff of the left renal artery with vjcz-dw-xgpalaiy stenosis identified. Arch vessel branching pattern is [...] mm, respectively with m ild tortuosity and gzoh-ih-cxvgassi calcific atherosclerosis present. 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 [...] An addendum will be dictated by the Site Engineer Radiologist regarding the nonvascular findings. Signed: Juwan Ramirezort Verified Date/Time: 11/26/2017 16:25:25 Reading Location: [place] [address], CTA, [id number] 11:56:00Addendum BeginsREPORT STATUS:A Addendum: The images were reviewed with Dr. Reinier staples. There is a missing dictation, specifically, despite the aortic bypass surgery the chemehuevi left common iliac artery is still patent with retrograde filling from the left external iliac artery, with aneurysmal dilation identified. Image 466, it measures approximately 4.3 x 4.2 cm in diameter. Some intraluminal thrombus is seen. This is the left common iliac artery. The left internal iliac artery is also patent, with calcification present. Signed: Juwan Ramirezort Verified Date/Time: 11/27/2017 11:56:33 Reading Location: [place] [address] Cardiology MRIAddendum EndsAddendum BeginsREPORT STATUS:A ADDENDUM: Study [...] MDReport Verified Date/Time: 11/26/2017 18:03:42 Reading Location: [facility] [address] Angio Body Reading RoomAddendum EndsFINAL [...] takeoff of the left renal artery with oove-wk-dedzw ate stenosis identified. Arch vessel branching pattern [...] 8.2 mm, respectively with mild tortuosity and xiiw-fq-ydmjjkix calcific atherosclerosis present. 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 [...] An addendum will be dictated by the Site Engineer Radiologist regarding the nonvascular findings. Signed: Juwan Ramirez MDReport Verified Date/Time: 11/26/2017 16:25:25 Reading Location: [place] [address] Cardiology MRI B-TYPE NATRIURETIC FACTOR (BNP)2017-11-26 18:03:00 Test Item Value Reference Range Interpretation Comments B-TYPE NATRIURETIC PEPTIDE (BEAKER) 142 pg/mL 0-100 H (test code = 700) COMPREHENSIVE METABOLIC [id number] 17:56:00 Test Item Value Reference Range Interpretation [...] NOT APPLICABLE FOR DIALYSIS PATIEN TS. PROTHROMBIN TIME/[id number] 17:33:00 Test Item Value Reference Range Interpretation [...] 0-1 PERCENT (BEAKER) (test code = 2801) [id number] 12:34:00 Test Item Value Reference Range Interpretation Comments POC-CREATININE 1.1 mg/dL 0.6-1.[address] [facility] 6720 (BEAKER) (test [place] code = 1859) [address] POC-EGFR (BEAKER) 65 mL/min/1.73M2 (test code = 0030) [id number] 06:22:001.08[facility] FqyaxfcKBCTHFYIIZ8296-33-07 06:22:00 Test Item Value Reference Range Interpretation Comments PT (test code = PT) 14.2 s 12.0-14.7 [facility] IzquytnZEYDXYOADT1244-79-92 16:33:001.09[facility]annHEMATOLOGY 2016-05-28 16:33:00 Test Item Value Reference Range Interpretation Comments PTT (test code = PTT) 27.7 s 22.9-35.8 [facility] FqzphbpWYEQPWASEJ7395-58-07 16:33:00 Test Item Value Reference Range Interpretation Comments PT (test code = PT) 14.3 s 12.0-14.7 [facility] NyadipbBRVMQVNIJH2109-04-04 16:33:43206Gvbavvck HermannHEMATOLOGY 2016-05-28 16:33:008.4[facility] PvogsjuBKRFMMJQPE7121-38-87 16:33:0033.3[facility] AnwfzvdRMJWGBDAFC9353-00-07 16:33:0011.6[facility] CfclbjmXRTMGBCGTW3575-06-67 16:33:00 Test Item Value Reference Range Interpretation Comments MCH (test code = MCH) 29.6 pg 27.0-31.0 [facility] DrtbxsnONOFQRFAEH9267-40-63 16:33:0015.0[facility] HermannHEMATOLOGY 2016-05-28 16:33:0088.9[facility] RhycqhfGHBOWGDGSP1345-33-34 16:33:0035.0[facility] OpwkoaiHLGYSAUQUO7890-93-95 16:33:003.94[facility] UwnwnsvVFMSMJDHOB6964-53-45 16:33:0011.4[facility] MaytrkkFIHMYEKLSM2232-29-36 16:33:001.3[facility] XCUOZOCUOV7084-70-79 16:33:008.9[facility] AyskgmtDXMQFAFDSB6878-19-80 16:33:001.2 [facility] YittbuaZWDRHUWJMW2019-37-52 16:33:000.1[facility] HermannHEMATOLOGY 2016-05-28 16:33:000.1[facility] GzyowwxGCFZFGDPCA1771-81-65 16:33:000.5[facility] XfpuidvKQQENMTRVP4087-45-20 16:33:0011.5[facility] UmtlfxoIWTJKRPKEH6424-15-09 16:33:0077.6[facility] XhbkluiILXPXTVTBB7581-44-72 16:33:0010.3[facility] CHEM LMVIV9342-48-55 09:17:0089[facility] HermannCHEM HAVAB1901-65-80 09:17:25662 [facility] HermannCHEM BLCFJ3732-82-01 09:17:000.80[facility] HermannCHEM PANEL 2016-05-27 09:17:009[facility] HermannCHEM NIBEH7334-17-68 09:17:31975Alebedjx HermannCHEM WCYUI1219-85-04 09:17:003.9[facility] HermannCHEM EYRHF5523-24-11 09:17:0022[facility] HermannCHEM EGIVU2133-24-20 09:17:65742Dmdbuthr HermannCHEM VKXRW2573-83-62 09:17:008.0[facility] HermannCHEM TETDV3700-75-99 09:17:0018.9 [facility] HermannCHEM BKFUP8014-74-93 09:17:002.3[facility] HermannCHEM PANEL 2016-05-27 09:17:001.7[facility] KvrmtonPLGEWQCRSW2567-65-09 09:17:007.2[facility] AxbhbleEFKDQKPCZI4918-62-50 09:17:007.5[facility] KoznywcNFVZIZTZAM8299-47-78 09:17:0085.1[facility] MezrfnsMIGHOKFMNN8321-39-55 09:17:009.0[facility] LWQFQGAMHL8144-04-19 09:17:000.2[facility] AdpjrboNAVJZQPLLT6352-87-65 09:17:000.8 [facility] OjhtlfsCORVDSFKZH8419-69-60 09:17:000.8[facility] HermannHEMATOLOGY 2016-05-27 09:17:0088.5[facility] QzksorfBMRAHMOORS4871-93-38 09:17:0031.9[facility] NxskakyDOORTJJFKR3367-23-58 09:17:0011.0[facility] OssjsgnEXGZKEUCIK1578-97-74 09:17:003.61[facility] TzmwgrlBHLFDWJCNP2758-19-28 09:17:00 Test Item Value Reference Range Interpretation Comments MCH (test code = MCH) 30.6 pg 27.0-31.0 [facility] VaniqnoVWKBFQOKRO1300-22-80 09:17:0010.6[facility] HermannHEMATOLOGY 2016-05-27 09:17:05233Ppsmqadh ZibrfkkBVRNHXBTVM7296-73-88 09:17:0014.7[facility] QaqejoiEBGSPIJYYM9874-77-78 09:17:0034.6[facility] VnbkkzmYTXRQJWOLP9238-66-61 09:17:009.3[facility] HermannPARATHYROID IDTYXAK4231-29-68 09:17:000.99[facility] HermannPARATHYROID HTRTMAC6127-97-16 09:17:001.02[facility] HermannCARDIAC ENZYMES 2016-05-26 05:43:00<0.02[facility] HermannCARDIAC QUDUIDY4857-15-91 05:43:0050 [facility] HermannCHEM DGZHY5014-66-46 05:43:002.1[facility] HermannCHEM PANEL 2016-05-26 05:43:0088Mem[facility] HermannCHEM YXYMB3487-36-38 05:43:0023[facility] HermannCHEM ORAXM3447-45-03 05:43:61297Aoufhbyz HermannCHEM PFYFS0642-30-11 05:43:007.8[facility] HermannCHEM MRDET3971-74-38 05:43:0016.2[facility] HermannCHEM VHWXH4323-99-59 05:43:94907Siahxzjn HermannCHEM MQMTJ7437-23-97 05:43:0078 [facility] HermannCHEM VUMEK2777-79-82 05:43:009[facility] HermannCHEM PANEL 2016-05-26 05:43:004.2[facility] HermannCHEM EACZM0207-64-62 05:43:000.81[facility] HermannCHEM UCKAE5042-54-86 05:43:003.3[facility] QjabuweTBWVMQHYQO0901-38-63 05:43:0034.6[facility] CuqhoytRNZYSRJKKY1588-49-13 05:43:0014.1[facility] NGTMZFMMPW7698-30-24 05:43:003.69[facility] BzfpqkhKJWJPRVJNF7142-80-87 05:43:00 10.1[facility] XmwtkkjBTRLEGLNXZ3536-28-01 05:43:009.0[facility] HermannHEMATOLOGY 2016-05-26 05:43:89319Zptefygc WtbrcapCOQBYOIFRV5358-65-10 05:43:00 Test Item Value Reference Range Interpretation Comments MCH (test code = MCH) 30.3 pg 27.0-31.0 [facility] PebntoyDPMDCCDYGI7230-05-68 05:43:0087.7[facility] HermannHEMATOLOGY 2016-05-26 05:43:0032.4[facility] UhpzxhmDCTCPCJWEG8255-26-93 05:43:0011.2[facility] AgjqrymSQYWPOWZVM8156-16-16 05:43:000.2[facility] HastocyKOSAODENQZ6630-74-81 05:43:00See Note (05/26/16 12:43 AM)[facility] MvctojfSGRPIUVHDQ5131-27-66 05:43:0015.5[facility] RutphilKPEWIJBXYK2196-42-05 05:43:00 Test Item Value Reference Range Interpretation Comments Max Amp (test code = Max Amp) 75.6 mm 50.0-70.0 [facility] ZzmaeddUKAOHMDNEJ2864-47-25 05:43:005.3[facility] HermannHEMATOLOGY 2016-05-26 05:43:00 Test Item Value Reference Range Interpretation Comments K-time (test code = K-time) 0.8 min 1.0-3.0 [facility] SyliedlMXPKQIRAES7791-89-26 05:43:00 Test Item Value Reference Range Interpretation Comments Angle (test code = Angle) 78.6 degrees 53.0-72.0 [facility] EqotuotUQCQOMGYBZ4471-78-41 05:43:00 Test Item Value Reference Range Interpretation Comments R-time (test code = R-time) 2.8 min 5.0-10.0 [facility] ZktqfalOFKWOCBXDL9434-76-68 05:43:0010.1[facility] HermannHEMATOLOGY 2016-05-26 05:43:0013.2[facility] XuxnbdbOPPRMKWJNG1703-73-15 05:43:007.7[facility] IbelucsUARNVDMXTR7464-58-12 05:43:000.4[facility] FbiribpULHGTMZXRH1341-24-48 05:43:000.1[facility] NrhxqydOXIRVGVDEV3756-64-93 05:43:001.0[facility] Jevon PNIQPPOSEV0329-05-67 05:43:001.3[facility] CvlliggFPOVNHXSLB5865-52-50 05:43:00 76.2[facility] HermannPARATHYROID AJLJVXM3576-71-62 05:43:001.11[facility] PARATHYROID AYDMFSS3939-77-22 05:43:001.08[facility] HermannCHEM TTXSG3898-71-24 21:31:0080[facility] HermannCHEM LAQYM7345-99-08 21:31:0015.3[facility] HermannCHEM BWTPL9238-74-17 21:31:0025[facility] HermannCHEM IRZYE5562-00-57 21:31:007.9 [facility] HermannCHEM OXSKI0321-86-90 21:31:00533Mtfltswh HermannCHEM PANEL 2016-05-25 21:31:004.3[facility] HermannCHEM HOFRK1916-69-67 21:31:73669Xisypjke HermannCHEM QNKKB0249-17-82 21:31:000.94[facility] HermannCHEM CGBPG0866-06-49 21:31:41727Zrxqwdcv HermannCHEM NBBTF8808-91-84 21:31:008[facility] Jevon GVULAEVJRE0142-82-07 21:31:001.19[facility] NavnqhgSBNNYVHAHC6543-88-56 21:31:00 Test Item Value Reference Range Interpretation Comments PT (test code = PT) 15.4 s 12.0-14.7 [facility] LnodlsmUZZFUKVJVD2236-15-75 21:31:00 Test Item Value Reference Range Interpretation Comments PTT (test code = PTT) 34.1 s 22.9-35.8 [facility] HermannPARATHYROID LVFZSHA8261-64-78 06:49:001.07[facility] PARATHYROID EYWXQQL2898-52-56 06:49:001.04[facility] HermannCARDIAC ENZYMES 2016-05-25 06:47:00<0.02[facility] HermannCARDIAC NHNBGZH1752-22-55 06:47:0057 [facility] HermannCHEM AYPJF5701-27-53 06:47:001.1[facility] HermannCHEM PANEL 2016-05-25 06:47:000.4[facility] HermannCHEM EXBWD5165-21-53 06:47:000.6[facility] HermannCHEM LPWNP2750-01-94 06:47:000.2[facility] HermannCHEM WNQZL5607-87-26 06:47:0013[facility] HermannCHEM VXFVE5955-90-55 06:47:52260Tjtmuloa HermannCHEM UUWHW8247-75-72 06:47:002.7[facility] HermannCHEM CMKHO7345-73-51 06:47:005.7 [facility] HermannCHEM NTTRX5344-52-75 06:47:003.0[facility] HermannCHEM PANEL 2016-05-25 06:47:0014Mem[facility] HermannCHEM GICCJ9981-33-61 06:47:003.2[facility] HermannCHEM ZVMRX5659-96-23 06:47:001.7[facility] 2016-05-25 02:09:00Positive 1(05/24/16 9:09 PM)[facility] 2016-05-25 02:09:00 Test Item Value Reference Range Interpretation Comments Max Amplitude Rapid (test code = Max 68 mm 52-71 Amplitude Rapid) [facility] HospitalCindjemBVQGPTMQBW6433-05-10 02:09:0010.4[facility] 2016-05-25 02:09:000.4MewiriCH[facility]ST[facility] AliceMvmtbqgFURJSGHTJH0492-80-21 02:09:00 Test Item Value Reference Range Interpretation Comments ACT (TEG) Rapid (test code = ACT (TEG) 121 s 86-118 Rapid) [facility] HospitalHikbbonDWUDUQQXVR8333-41-51 02:09:00 Test Item Value Reference Range Interpretation Comments Split Point Rapid (test code = Split 0.7 min Point Rapid) [facility] HospitalEcxhvogNWNOZBMFSX0934-61-47 02:09:00 Test Item Value Reference Range Interpretation Comments R-time Rapid (test code = R-time 0.8 min 0.4-0.7 Rapid) [facility] HospitalNtiivvtLEDRYCRTWN4165-50-63 02:09:00 Test Item Value Reference Range Interpretation Comments K-time Rapid (test code = K-time 0.8 min 0.6-2.3 Rapid) [facility] HospitalQpvnyppEHTLSYTYDV9441-97-53 02:09:00 Test Item Value Reference Range Interpretation Comments Angle Rapid (test code = Angle 80 degrees 64-80 Rapid) [facility] HospitalBzifndaVNAZVDMJQY0505-70-27 02:09:001.7[facility] 2016-05-25 02:09:000.1[facility] HthmcneOBCFXUKJUA6431-44-90 02:09:000.1[facility] HospitalJfzkkweZYGXBABPPU3988-28-44 02:09:00 Test Item Value Reference Range Interpretation Comments PTT (test code = PTT) 32.0 s 22.9-35.8 [facility]
[2021-02-03 23:36] LABS: Absolute Lymphocytes (CBC) 0.8 K/uL (0.7-4.9); Basophils % 0.3 % (0-1.3); Hematocrit 41.4 % (39.6-49.0); Lymphocytes % 9.4 % (15.3-44.8); MPV 8.6 fL (7.6-11.3); RBC Red Blood Cell Count 4.88 M/uL (4.33-5.43)
[2021-02-03] MEDS ORDERED: carvediloL 6.25 MG TAB ONE (23:38)
[2021-02-03] MEDS ORDERED: MORPHINE 4 MG/ML SYR ONE (23:39)
[2021-02-03] MEDS ORDERED: ONDANSETRON 4 MG/2 ML VIAL ONE (23:39)
[2021-02-03] MEDS ORDERED: AMLODIPINE 5 MG TAB ONE (23:39)
[2021-02-04 00:17] LABS: Blood Morphology Comment NOT SEEN (NOT SEEN); Platelet Estimate ADEQ
[2021-02-04 00:22] LABS: Albumin 3.5 g/dL (3.4-5.0); Bilirubin Direct 0.2 mg/dL (0-0.2); Bilirubin Total 0.6 mg/dL (0.2-1.0); Protein, Total 7.1 g/dL (6.4-8.2); Troponin (Emerg Dept Use Only) 0.02 ng/mL (0.0-0.045)
[2021-02-04] MEDS ORDERED: MORPHINE 4 MG/ML SYR ONE (01:24)
--- NOTE | 2021-02-04 01:39 | EDPHYS ---
Physician Documentation [facility] Name: Pineda Mckeon Age: 75 yrs Sex: Male : 1945 Arrival Date: 02/03/2021 Time: 22:44 Bed 16 Private MD: ED Physician Dwaine Hylton HPI: 02/03 23:04 This 75 yrs old Male presents to ER via EMS with complaints of Abdominal Pain.pm1 23:04 The patient presents with abdominal pain in the epigastric area. Onset: The pm1 symptoms/episode began/occurred 1 week(s) ago. The symptoms do not radiate. Associated signs and symptoms: none. Pertinent negatives: nausea, vomiting, and diarrhea. The symptoms are described as achy. Modifying factors: The symptoms are alleviated by nothing, the symptoms are aggravated by nothing. Severity of pain: in the emergency department the pain is unchanged. The patient has been recently seen at the [facility] Emergency Department, last week, for similar complaints labs were performed, CT scan was performed. Discharged home for follow up with his PCP and immigration lawyer. Patient presenting here to the ER because he has had no change in his abdominal pain since ER evaluation. Patient has not been taking his blood pressure medications because they make him feel ill. Historical: - PMHx: 22:53 TIA; Right Arm; Hypertension; Degenerative disc disease; CVA; COPD; clotting disorder; ea Bypass Bilateral Legs; blood clot in right groin; AAA; - PSHx: 22:53 Right arm; Cholecystectomy; Hernia repair; ea - Immunization history:: Adult Immunizations up to date. - Social history:: Smoking status: unknown. ROS: 23:04 Constitutional: Negative for fever, chills, and weight loss, Eyes: Negative for injury, pm1 pain, redness, and discharge, ENT: Negative for injury, pain, and discharge, Neck: Negative for injury, pain, and swelling, Cardiovascular: Negative for chest pain, palpitations, and edema, Respiratory: Negative for shortness of breath, cough, wheezing, and pleuritic chest pain. 23:04 Back: Negative for injury and pain, : Negative for injury, bleeding, discharge, and swelling, MS/Extremity: Negative for injury and deformity, Skin: Negative for injury, rash, and discoloration, Neuro: Negative for headache, weakness, numbness, tingling, and seizure. 23:04 Abdomen/GI: Positive for abdominal pain, Negative for nausea, vomiting, and diarrhea. Exam: 23:04 Constitutional: This is a well developed, well nourished patient who is awake, alert, pm1 and in no acute distress. Head/Face: Normocephalic, atraumatic. 23:04 Skin: Warm, dry with normal turgor. Normal color with no rashes, no lesions, and no evidence of cellulitis. MS/ Extremity: Pulses equal, no cyanosis. Neurovascular intact. Full, normal range of motion. 23:04 Eyes: Exam is negative for acute changes, Extraocular movements: no acute changes, Conjunctiva: no acute changes, no injection, Sclera: no acute changes, icterus, is not appreciated. 23:04 ENT: Mouth: Lips: normal, Oral mucosa: normal, pink and intact, moist. 23:04 Cardiovascular: Rate: normal, Rhythm: regular, Pulses: no pulse deficits are appreciated, Heart sounds: normal. 23:04 Respiratory: Exam negative for acute changes, respiratory distress, shortness of breath, Breath sounds: are clear throughout. 23:04 Abdomen/GI: Inspection: abdomen appears normal, Palpation: abdomen is soft and non-tender, in all quadrants. 23:04 Neuro: Exam negative for acute changes, Orientation: is normal, Mentation: is normal, Motor: is normal, moves all fours. Vital Signs: 22:52 BP 202 / 116; Pulse 86; Resp 17 S; Temp 100(O); Pulse Ox 98% on R/A; Weight 59.42 kg bb (R); Height 5 ft. 7 in. (170.18 cm) (R); Pain 7/10; 02/04 01:31 BP 140 / 98; Pulse 80; Resp 18; Pulse Ox 99% on R/A; ea 02/03 22:52 Body Mass Index 20.52 (59.42 kg, 170.18 cm) bb MDM: 02/03 22:58 Patient medically screened. pm1 23:04 Refusal of service: The patient/guardian displays adequate decision making capability pm1 and despite a detailed discussion of alternatives, benefits, risks, and consequences refuses: CT Scan, Patient does not want CT imaging. he does not think that it would change much information given recent CT he had on Thursday. He said that he is here for pain medications for his abdominal pain. 02/04 01:05 Data reviewed: vital signs. Data interpreted: Pulse oximetry: on room air is 98 %. pm1 Interpretation: normal. Counseling: I had a detailed discussion with the patient and/or guardian regarding: the historical points, exam findings, and any diagnostic results supporting the discharge/admit diagnosis, lab results, the need for outpatient follow up, to return to the emergency department if symptoms worsen or persist or if there are any questions or concerns that arise at home. 02/03 23:04 Order name: Basic Metabolic Panel; Complete Time: 00: pm1 02/03 23:04 Order name: CBC with Diff; Complete Time: 00: pm1 02/03 23:04 Order name: Hepatic Function; Complete Time: 00:26 pm1 02/03 23:04 Order name: Lipase; Complete Time: 00:26 pm1 02/03 23:44 Order name: Troponin (Emerg Dept Use Only); Complete Time: 00:26 EDMS 02/03 23:04 Order name: IV Saline Lock; Complete Time: 23:55 pm1 02/03 23:11 Order name: EKG; Complete Time: 23:11 pm1 02/03 23:45 Order name: Manual Differential; Complete Time: 00:26 EDMS 02/03 23:04 Order name: Labs collected and sent; Complete Time: 23:22 pm1 02/03 23:11 Order name: EKG - Nurse/Tech; Complete Time: 00:27 pm1 Administered Medications: 02/03 23:54 Drug: morphine 4 mg Route: IVP; Site: left antecubital; ea 23:54 Drug: Zofran (Ondansetron) 4 mg Route: IVP; Site: left antecubital; ea 23:54 Drug: carvedilol 6.25 mg Route: PO; ea 23:54 Drug: amLODIPine 5 mg Route: PO; ea 02/04 01:43 Drug: morphine 4 mg Route: IVP; Site: left antecubital; ea Disposition: 03:20 Co-signature as Attending Physician, Dwaine Hylton MD. [email or web address] Disposition: 02/04/21 01:38 Discharged to Home. Impression: Abdominal pain, unspecified, Essential (primary) hypertension. - Condition is Stable. - Discharge Instructions: Abdominal Pain, Adult, Hypertension, How to Take Your Blood Pressure, [id number], DASH Eating Plan, Managing Your Hypertension. - Prescriptions for ondansetron 4 mg Oral tablet,disintegrating - take 1 tablet by ORAL route every 8 hours As needed; 15 tablet. - Medication Reconciliation Form, Thank You Letter, Antibiotic Education, Prescription Opioid Use form. - Follow up: Emergency Department; When: As needed; Reason: Worsening of condition. Follow up: Private Physician; When: 2 - 3 days; Reason: Recheck today's complaints, Continuance of care, Re-evaluation by your physician. - Problem is new. - Symptoms have improved. Signatures: Dispatcher [employer] [facility] Liam Hernandez, [employer] LEARN[employer] FACILITATOR pm1 Marlene Decker RN RN ea Holmes, Maurice, MD MD [email or web address] Corrections: (The following items were deleted from the chart) 02/03 23:43 23:11 TROPONIN (EMERG DEPT USE ONLY)+C.[email or web address].BRZ ordered. [facility] 02/04 01:59 01:38 02/04/2021 01:38 Discharged to Home. Impression: Unspecified abdominal pain; ea Essential (primary) hypertension. Condition is Stable. Forms are Medication Reconciliation Form, Thank You Letter, Antibiotic Education, Prescription Opioid Use. Follow up: Emergency Department; When: As needed; Reason: Worsening of condition. Follow up: Private Physician; When: 2 - 3 days; Reason: Recheck today's complaints, Continuance of care, Re-evaluation by your physician. Problem is new. Symptoms have improved. pm1
--- NOTE | 2021-02-04 01:39 | ER ---
Nurse's Notes [facility] Name: Pineda Mckeon Age: 75 yrs Sex: Male : 1945 Arrival Date: 02/03/2021 Time: 22:44 Bed 16 Private MD: Diagnosis: Abdominal pain, unspecified;Essential (primary) hypertension Presentation: 02/03 22:51 Ebola Screen: No symptoms or risks identified at this time. ea 22:52 Chief complaint: EMS states: they were toned out for report of pt with continuing bb abdominal pain he was seen here on Thursday for the same thing pt has not been taking his blood pressure medication because it makes him sick. Coronavirus screen: At this time, the client does not indicate any symptoms associated with coronavirus-19. Initial Sepsis Screen: Does the patient meet any 2 criteria? No. Patient's initial sepsis screen is negative. Does the patient have a suspected source of infection? No. Patient's initial sepsis screen is negative. Risk Assessment: Do you want to hurt yourself or someone else? Patient reports no desire to harm self or others. Onset of symptoms was February 03, 2021. 22:52 Method Of Arrival: EMS: [facility] bb 22:52 Acuity: NORY 3 bb Historical: - PMHx: 22:53 TIA; Right Arm; Hypertension; Degenerative disc disease; CVA; COPD; clotting disorder; ea Bypass Bilateral Legs; blood clot in right groin; AAA; - PSHx: 22:53 Right arm; Cholecystectomy; Hernia repair; ea - Immunization history:: Adult Immunizations up to date. - Social history:: Smoking status: unknown. Screenin:51 Abuse screen: Denies threats or abuse. Nutritional screening: No deficits noted. ea Tuberculosis screening: No symptoms or risk factors identified. Fall Risk None identified. Assessment: 22:54 General: Appears in no apparent distress. Behavior is appropriate for age. Pain: ea Complains of pain in abdomen. Neuro: Level of Consciousness is awake, alert, obeys commands, Oriented to person, place, time. Cardiovascular: Patient's skin is warm and dry. Respiratory: Airway is patent Respiratory effort is even, unlabored, Respiratory pattern is regular, symmetrical. Derm: Skin is pink, warm \T\ dry. 23:50 Reassessment: Patient and/or family updated on plan of care and expected duration. Pain ea level reassessed. Patient is alert, oriented x 3, equal unlabored respirations, skin warm/dry/pink. 02/04 00:00 Reassessment: Patient and/or family updated on plan of care and expected duration. Pain ea level reassessed. Patient is alert, oriented x 3, equal unlabored respirations, skin warm/dry/pink. 01:30 Reassessment: Patient and/or family updated on plan of care and expected duration. Pain ea level reassessed. Patient is alert, oriented x 3, equal unlabored respirations, skin warm/dry/pink. 01:56 Reassessment: Patient and/or family updated on plan of care and expected duration. Pain ea level reassessed. Patient is alert, oriented x 3, equal unlabored respirations, skin warm/dry/pink. Discharge instruction given to patient verbalized the understanding of instruction. Vital Signs: 02/03 22:52 BP 202 / 116; Pulse 86; Resp 17 S; Temp 100(O); Pulse Ox 98% on R/A; Weight 59.42 kg bb (R); Height 5 ft. 7 in. (170.18 cm) (R); Pain 7/10; 02/04 01:31 BP 140 / 98; Pulse 80; Resp 18; Pulse Ox 99% on R/A; ea 02/03 22:52 Body Mass Index 20.52 (59.42 kg, 170.18 cm) ED Course: 02/03 22:44 Patient arrived in ED. ea 22:51 Marlene Decker, RN is Primary Nurse. ea 22:51 Patient has correct armband on for positive identification. Bed in low position. Call ea light in reach. phototypesetting equipment monitor on. Pulse ox on. NIBP on. 22:51 Arm band placed on right wrist. Patient placed in an exam room, on a stretcher, on ea pulse oximetry. 22:54 Triage completed. bb 22:58 Liam Hernandez NP is PHCP. pm1 22:58 Dwaine Hylton MD is Attending Physician. pm1 23:22 Initial lab(s) drawn, by id, sent to lab. ad5 23:55 Inserted saline lock: 24 gauge in left antecubital area, using aseptic technique. ea 02/04 01:43 No provider procedures requiring assistance completed. IV discontinued, intact, ea bleeding controlled, No redness/swelling at site. Pressure dressing applied. Administered Medications: 02/03 23:54 Drug: morphine 4 mg Route: IVP; Site: left antecubital; ea 23:54 Drug: Zofran (Ondansetron) 4 mg Route: IVP; Site: left antecubital; ea 23:54 Drug: carvedilol 6.25 mg Route: PO; ea 23:54 Drug: amLODIPine 5 mg Route: PO; ea 02/04 01:43 Drug: morphine 4 mg Route: IVP; Site: left antecubital; ea Outcome: 01:38 Discharge ordered by MD. pm1 01:58 Condition: stable ea 01:58 Discharge instructions given to patient, Instructed on discharge instructions, follow up and referral plans. medication usage, Demonstrated understanding of instructions, follow-up care, medications, Prescriptions given X 1. 01:59 Discharged to home ambulatory, with family. ea 01:59 Patient left the ED. ea Signatures: Kandace Garcia RN RN bb Marinas, Patrick, NP SHRIMPER pm1 Marlene Decker RN RN ea Davidson, Andrea ad5
[2021-02-04 02:18] VITALS: BP 140/98; O2SAT 99
[2021-02-04 02:20] VITALS: TEMP 100
--- NOTE | 2021-02-04 15:49 | EKG ---
Test Date: 2021-02-03 Test Time: 23:33:11 Skiing Instructor: ANURADHA MEASUREMENT RESULTS: Intervals: Rate: 71 [place]: QRSD: 110 QT: 442 QTc: 480 [place]: P: CO: QRS: -17 T: 72 INTERPRETIVE STATEMENTS: Undetermined rhythm Anteroseptal infarct, age undetermined Abnormal ECG Compared to ECG 01/29/2021 22:20:03 Sinus bradycardia no longer present Myocardial infarct finding still present Electronically Signed On 02-04-21 15:47:02 CDT by Conrad Scherer
== END 2021-02-04 01:59 | disposition home or self-care (01) ==
LOC: ER 22:40
DX: R10.13 Epigastric pain (principal); I10 Essential (primary) hypertension; Z86.73 Personal history of transient ischemic attack (TIA), and cerebral infarction without residual deficits
CPT/HCPCS: 93005; 85025; 80048; 36415; 80076; 84484; 83690; J2405; 96374; 96375; 99284

== ENCOUNTER 2021-02-04 06:15 | Emergency (ER) | payer OTHER ==
--- OUTSIDE RECORDS SUMMARY | 2021-02-04 06:22 | XMS REPORT | Continuity of Care Document ---
:1945 Author Organization [facility] t Address [address] Silva. [address] [place] [address] Care Team Providers Name Role Phone Jono [...] Clinician Date PAD PAD Disease Active 2018-08 [place] (periphera (periphera 0-30 Me thodi l artery l artery 00:00: st disease) disease) 00 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 st 00 PAD PAD Disease Active 2018-08 Last [place] (periphera (periphera 0-18 Assessmen Methodi l artery [...] graft explantat ion VTE VTE Disease Active [facility] (venous (venous 02-23 Assessmen Metho di thromboemb thromboemb 00:00: t & Plan: st olism) olism) 00 Formattin g of this note might be different from the original. Plan: Bilateral LE vein mapping ZHANE (acute ZHANE (acute Disease Active C [facility] kidney kidney [facility] - injury) injury) 00:00: Medical [address] [place] [address] Abscess of Abscess of Disease Active C [...] Jevon SMITH 00 BILLING 5060 Active 05/24/2016 [facility] SDH Diagnosis Active 2015-082016-06-05 Mem oria 0-15 23:20:00 l SDH 00:00: Jevon 00 Active 05/24/2016 [facility] Severe Severe Disease Active [facility] aortic aortic [facility] - stenosis stenosis Medica l [place] Anemia Anemia Disease Active [facility] HTN HTN Disease Active [facility] St (hypertens (hypertens Karine kes - ion) ion) [facility] Hyperlipid Hyperlipid Disease Active C NE [facility] emia emia [facility] COPD COPD Disease Active [facility] St (chronic (chronic [facility] - obstructiv obstructiv Me dical e e Center pulmonary pulmonary disease) disease) Seizures Seizures Disease Active [facility] S t [facility] Peripheral Peripheral Disease Active C NE St vascular vascular [facility] - disease disease [facility] Blood Blood Disease Active Overview: 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 fibrillati fibrillati Karine kes - on on [facility] Thoracoabd Thoracoabd Disease Active [facility] St ominal ominal [facility] - aneurysm aneurysm Medica l Center Abdominal Abdominal Disease Active [facility] aortic aortic [facility] - aneurysm aneurysm Medica l (AAA) (AAA) Center DVT (deep DVT (deep Disease Active [facility] venous venous [facility] - thrombosis thrombosis Me dical ) ) [place] Essential Problem Active 2020-12-01 Me moria tremor 01:14:44 l (disorder) [place] Essential tremor (disorder) Active Problem 12/01/2020 [facility] Neuro Subdural Problem Active 2020-12-01 Mem oria hematoma 01:14:44 l (disorder) Subdural He rmann hematoma (disorder) Active Problem 12/01/2020 [facility] Neuro,[facility] Coxitis Problem Active 2020-12-01 Micah taylor (disorder) 01:14:44 l Coxitis [place] (disorder) Active Problem 12/01/2020 [facility] Neuro Lumbar Problem Active 2020-12-01 Memor ia radiculopa 01:14:44 l thy Lumbar Jevon (disorder) radiculopa thy (disorder) Active Problem 12/01/2020 [facility] Neuro NONTRAUMAT Diagnosis Active 2016-06-05 Memoria IC 23:20:00 l SUBDURAL Jevon HEMORRHAGE NONTRAUMAT , UNSPEC IC SUBDURAL HEMORRHAGE , UNSPEC Active [facility] Allergies, Adverse Reactions, Alerts Allergy Allergy Status Severity Reaction(s) Onset Inactive Treating Comm ents Source Name Type Date Date Clinician No Known No Known Active Memori a Medicati Medicati l on on Jevon Allergie Allergie s s Social History Social Habit Start Date Stop Date Quantity Comments Source History of tobacco Current smoker Ho charlie [facility] use Sex Assigned At [facility] Alcohol Comment 2019-05-27 2019-05-27 quit ~2004 Pandya M ethodist 00:00:00 00:00:00 Alcohol intake 2018-03-23 2018-03-[address] [facility] Hasmukh es - 00:00:00 00:00:00 non-drinker of Medical Ce nter alcohol (finding) Cigarettes smoked 2018-03-23 2018-03-[address] [facility] [place] - current (pack per 00:00:00 00:00:00 [facility] day) - Reported Cigarette 2018-03-23 2018-03-[address] [facility] [place] - pack-years 00:00:00 00:00:00 [facility] Tobacco use and 2018-03-23 2018-03-23 Current user [facility] [place] - exposure 00:00:00 00:00:00 [facility] Tobacco Comment 2017-12-09 2017-12-09 quit 2010 [facility] - 00:00:00 00:00:00 [facility] Smoking Status Start Date Stop Date Source Former smoker 2018-03-23 00:00:00 2018-03-23 00:00:00 [facility] Medications Ordered Filled Start Stop Current Ordering Indication Dosage Frequency Signature Comments Components Source Medication Medication Date Date Medication? Clinician (SIG) Name Name gabapentin Yes 300 mg = 1 M emoria 300 MG Oral 3-25 cap, PO, l Capsule 21:18: BID, # 60 [place] nn 00 cap, 5 Refill(s), Pharmacy: [facility], 65.455, kg, 11/01/20 16:06:00 CDT, Weight primidone Yes See Memoria 250 mg oral 3-25 Instructio l tablet 21:18: ns, TAKE Jevon 00 ONE (1) TABLET(S) BY MOUTH ONCE A DAY., # 30 ea, 5 Refill(s), Pharmacy: [facility], 65.455, kg, 11/01/20 16:06:00 CDT, Weight topiramate Yes = 1 tab, Mem oria 100 mg oral 3-25 PO, BID, # l tablet 21:18: 60 ea, 5 Jevon 00 Refill(s), Pharmacy: [facility], 65.455, kg, 11/01/20 16:06:00 CDT, Weight gabapentin Yes 300 mg = 1 M emoria 300 MG Oral 5-07 cap, PO, l Capsule 15:51: BID, # 60 [place] nn 00 cap, 5 Refill(s), Pharmacy: [facility] gabapentin Yes See Memoria 300 MG Oral 4-03 Instructio l Capsule 14:22: ns, # 90 [place] 27 ea, Refill(s) 1, TAKE ONE (1) CAPSULE(S) BY MOUTH AT BEDTIME., Pharmacy: [facility] CHOLECALCIF 2018-08 Yes QD Take by Rodolfo [...] 300MG 5-28 PO, l 14:33: Bedtime, # [place] 53 30 ea, Refill(s) 5, Pharmacy: [facility] gabapentin Yes 300 mg = 1 M emoria 300 MG Oral 1-08 cap, PO, l Capsule 23:41: Bedtime, # Herm francisco 00 30 cap, 3 Refill(s), Pharmacy: [facility] amitriptyli Yes 75 mg = 1 M emoria ne 75 mg 1-04 tab, PO, l oral tablet 22:41: Bedtime, # [place] 00 30 tab, 0 Refill(s) amLODIPine Yes 5 mg = 1 Mem oria 5 mg oral 1-04 tab, PO, l tablet 22:41: Daily, # [place] 00 90 tab, 0 Refill(s) primidone Yes = 1 tab, Micah taylor 250 mg oral 1-04 PO, Daily, l tablet 22:35: # 30 tab, [place] 26 9 Refill(s), Pharmacy: [facility] topiramate Yes 100 mg = 1 M emoria 100 mg oral 1-04 tab, PO, l tablet 22:35: BID, # 60 [place] 00 tab, 9 Refill(s), Pharmacy: [facility] honey 100 % Yes 1{appli QD [...] MG 19:24: mouth Medical tablet 03 daily. [place] topiramate 0 Yes 100mg Q.5D Take 100 [...] 3 tab, PO, l Oral Tablet 14:27: [id number], # [place] 00 90 tab, 0 Refill(s) Docusate 2015-08 Yes 100 mg = 1 Mem oria Sodium 100 0-21 cap, PO, l MG Oral 14:27: Q12H, # 20 Herm francisco Capsule 00 cap, 0 Refill(s) phenol 2015-08 No Notes: Memoria 0-21 Chlorasept l 03:35: ic [place] Jevon 00 (Same as: Chlorasept ic, Sore Throat [place]) WASTE: F/P - Black; E - Municipal Trash Bin Coumadin 2015-08 No 5 mg, 1 Memori a 0-21 tab, l 02:30: Route: PO, [place] 00 Drug form: TAB, ONCE, Dosing Weight [...] Duration: 30 day, Stop date: 06/26/16 9:00:00 [employer] Remeron 2015-08 No Notes: Memoria 0-19 (Same l 02:00: as:Remeron ) ibuprofen 2015-08 No Notes: Memori a 100 mg/5 mL 0-18 (Same as: l oral 20:00: Motrin Jevon suspension 00 Children's , Advil Children's ) Take with food. Duragesic-1 2015-08 No Notes: Micah taylor 00 0-18 (Same as: l 18:00: Duragesic) [place] 00 Check for product integrity. Apply to [...] Duration: 30 day, Stop date: 06/25/16 9:00:00 [employer] Lisinopril 2015-08 No 40 mg, Memor ia 0-18 Route: PO, l 14:00: Drug form: [place] 00 TAB, Daily, Dosing Weight 76.36, kg, Start date: 05/27/16 9:00:00 CDT, Duration: 30 day, Stop date: 06/25/16 9:00:00 [employer] Miralax 2015-08 No Notes: Memoria 0-18 Dissolve l 14:00: in 8 oz of [place] 00 water or juice. (Same as: Miralax) remove 2015-08 No Notes: Memoria patch 0-18 Remove old l 14:00: patch [place] 00 before applicatio n of new patch. WASTE: F/P - P Waste Black; E - P Waste Black Keppra 2015-08 No Notes: Memoria 0-18 Same as l 12:25: Keppra Jevon 00 Mix with 100 mL NS, LR or D5W MEDICATION WASTE Product Size: 500 mg Product Wasted: ___ mg Keppra 2015-08 No Notes: Memoria 0-18 Same as l 09:00: Keppra [place] 00 Mix with 100 mL NS, LR or D5W MEDICATION WASTE Product Size: 500 mg Product Wasted: ___ mg Hydralazine 2015-08 No Notes: Micah taylor 0-18 (Same as: l 08:23: Apresoline Jevon 00 ) Push over 5 minutes heparin 2015-08 No Notes: Memoria 0-18 porcine l 05:00: heparin [place] 00 Fentanyl 2015-08 No Notes: Memoria 0-18 (Same as: l 04:47: Sublimaze) [place] 00 Preservat emanuel free. Lisinopril 2015-08 No Notes: Memor ia 0-18 (Same as: l 01:00: Prinivil, [place] 00 Zestril) Fentanyl 2015-08 No Notes: Memoria 0-18 (Same as: l 00:51: Sublimaze) [place] 00 Preservat emanuel free. pneumococca 2015-08 No Notes: Micah taylor l 13-valent 0-18 Lightly l vaccine 00:50: roll vial [place] nn 00 (DO NOT SHAKE) before administra tion. (Same as: Prevnar 13) Albuterol 2015-08 No Notes: Memori a 0.833 MG/ML 0-17 (Same as: l / 21:26: Duoneb) Jevon Ipratropium 00 [place] 0.167 MG/ML Inhalant Solution [DuoNeb] mirtazapine 2015-08 Yes 7.5 mg = 1 Memoria 7.5 mg oral 0-17 tab, PO, l tablet 19:52: Bedtime, # [place] nn 00 30 tab, 1 Refill(s) Eszopiclone 2015-08 Yes 1 mg = 1 Me moria 1 MG Oral 0-17 tab, PO, l Tablet 19:52: Bedtime, [place] [Lunesta] 00 PRN for insomnia, # 30 tab, 0 Refill(s) Trazodone 2015-08 No 50 mg = 1 Mem oria Hydrochlori 0-17 tab, PO, l de 50 MG 19:52: TID, # 90 Herm francisco Oral Tablet 00 tab, 0 Refill(s) Acetaminoph 2015-08 Yes 1 tab, PO, Memoria en 325 MG / 0-17 TID, PRN l Hydrocodone 19:52: Pain, # 60 [place] Bitartrate 00 tab, 0 10 MG Oral Refill(s) Tablet [[place] 10/325] lisinopril 2015-08 Yes 40 mg = 1 Me moria 40 mg oral 0-17 tab, PO, l tablet 19:52: Daily, 0 [place] 00 Refill(s) 12 HR 2015-08 Yes 0.1 mg = 1 Memori a Clonidine 0-17 tab, PO, l Hydrochlori 19:52: Bedtime, # [place] de 0.1 MG 00 30 tab, 0 Extended Refill(s) Release Tablet 72 HR 2015-08 Yes 1 patch, Memoria Fentanyl 0-17 TOP, Q48H, l 0.1 MG/HR 19:52: # 15 [place] Transdermal 00 patch, 0 Patch Refill(s) [Duragesic] [...] 0-17 INHALER, l 0.09 19:52: Q6H, PRN [place] MG/ACTUAT 00 for Metered wheezing, Dose # 8.5 gm, Inhaler 0 [ProAir Refill(s) HFA] Keppra 2015-08 No Notes: Memoria 0-17 Same as l 17:59: Keppra Jevon 00 Mix with 100 mL NS, LR or D5W MEDICATION WASTE Product Size: 500 mg Product Wasted: ___ mg Hydralazine 2015-08 No Notes: Micah taylor 0-17 (Same as: l 15:14: Apresoline [place] 00 ) Push over 5 minutes Nicotine 2015-08 No Notes: Memoria 0-17 (Same as: l 14:00: Habitrol) [place] 00 "Remove old patch before applicatio n of new patch" WASTE: F/P - P Waste Black; E - P Waste Black Keppra + 2015-08 No Notes: Memoria sodium 0-17 Same as l chloride 06:57: Keppra [place] 0.9% INJ 00 Mix with 100 mL 100 mL NS, LR or D5W MEDICATION WASTE Product Size: 500 mg Product Wasted: __0_ mg Keppra 2015-08 No 500 mg, Memoria 0-17 Route: l 06:28: IVPB, Jevon 00 Q24H, Dosing Weight 76.36, kg, Priority: STAT, Start date: 05/26/16 1:28:00 CDT, Duration: 30 day, Stop date: 06/24/16 1:28:00 [employer] sodium 2015-08 No 1,000 mL, Memori a chloride 0-17 Rate: 50 l 0.9% 1000 02:30: ml/hr, [place] ml INJ 00 Infuse 1,000 mL over: 20 hr, Route: IV, Dosing Weight 76.36 kg, Total Volume: 1,000, Start date: 05/25/16 21:30:00 CDT, Duration: 30 day, Stop date: 06/24/16 21:29:00 [employer] Acetaminoph 2015-08 No Notes: Micah taylor en 325 MG / 0-17 (Same as: l Hydrocodone 01:00: [place] Saskia nn Bitartrate 00 325/5) Do 5 MG Oral not exceed Tablet 4gm/day of [[place] acetaminop 5/325] hen. Tylenol 2015-08 No Notes: Do Memor ia 0-17 not exceed l 00:38: 4 gm/day. [place] 00 (Same as: Tylenol) Albuterol 2015-08 No Notes: SEE Me moria 0.83 MG/ML 0-16 RT l Inhalant 21:04: DOCUMENTAT Her mackenzie Solution 00 ION (Same as: Proventil) Ancef + 2015-08 No Notes: Memoria sodium 0-16 (Same As: l chloride 21:00: Ancef, [place] 0.9% INJ 00 Kefzol) 100 mL MEDICATION [...] Duration: 30 day, Stop date: 06/24/16 15:56:00 [employer]GER Ancef 2015-08 No 2 gm, Memoria 0-16 Route: l 19:15: IVPB, [place] 00 ONCE, Dosing Weight 76.36, kg, Start date: 05/25/16 14:15:00 CDT, Duration: 1 doses or times, Stop date: 05/25/16 14:15:00 CDT Streptococc 2015-08 No Notes: Micah taylor us 0-16 Lightly l pneumoniae 14:00: roll vial He rmann serotype 1 00 (DO NOT capsular SHAKE) antigen before diphtheria administra [id number] tion. protein (Same as: conjugate Prevnar vaccine / 13) Streptococc us pneumoniae serotype 14 capsular antigen diphtheria [id number] protein conjugate vaccine / Streptococc us pneumoniae [...] Crush) sennosides, 2015-08 No Notes: Micah taylor DETENTION 0-16 (Same as: l 14:00: Senokot) Jevon 00 Flomax 2015-08 No Notes: Memoria 0-16 (Same As: l 11:11: Flomax) [place] 00 "Do Not Crush" Dexamethaso 2015-08 No Notes: Micah taylor ne 0-16 Concentrat l 10:39: ion: [place] 00 4mg/ml Mannitol 2015-08 No Notes: Memoria 0-16 (Same as: l 10:16: Osmitrol) [place] 00 Infuse through 5 micron or smaller [...] 04:11: Mag-Ox Jevon 00 400) Magnesium oxide 436ak=186g g elemental magnesium Dose=____m g magnesium oxide (___mg elemental magnesium) Magnesium 2015-08 No Notes: Memori a Sulfate 0-16 WASTE: F/P l 04:11: - Sink; E [place] 00 - Municipal Trash Bin Calcium 2015-08 [...] 0-16 (Same as: l odium 04:11: Phos-NaK) [place] phosphate 00 Each 1.5 250 mg-280 gm [...] Duration: 30 day, Stop date: 06/23/16 22:10:00 FR[employer] 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 iodixanol 2015-08 No 60 mL, Memori a 0-16 Route: l 03:50: IVP, Drug [place] 00 Form: SOLN, Dosing Weight 76.364, kg, [...] Duration: 30 day, Stop date: 06/23/16 21:16:00 [employer] MA[employer]GER Saline 2015-08 No Notes: Memoria Flush 0.9% 0-16 (Same as: l 03:17: BD Jevon 00 Posiflush) Bisacodyl 2015-08 No Notes: Memori a 0-16 (Same As: l 03:17: Dulcolax, Jevon 00 Bisco-Lax) Ondansetron 2015-08 No Notes: Micah taylor 0-16 (Same as: l 03:17: Zofran) [place] 00 MEDICATION WASTE Product Size: 4 mg Product Wasted: _0__ mg Acetaminoph 2015-08 No Notes: Do M emoria en 325 MG / 0-16 not exceed l Hydrocodone 03:17: 4gm/day of [place] Bitartrate 00 acetaminop 10 MG Oral hen. 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 Saline 2015-08 No Notes: Memoria Flush 0.9% 0-16 (Same as: l 01:56: BD [place] 00 Posiflush) Zanaflex Zanaflex Yes Home [address] [place] as [facility] Lipitor Lipitor Yes Home [address] [facility] Breo Breo Yes Home [address] [facility] Ellipta Ellipta [place] [facility]ics Aspir-81 Aspir-81 Yes Home [address] [place] [facility] ProAir HFA ProAir HFA Yes Home [address] [facility] [place] needed [facility] Prilosec Prilosec Yes Home [address] [facility] [place] [facility] Amlodipine Amlodipine Yes Home [address] [facility] Besylate Besylate [place] [facility] Amlodipine Amlodipine Yes Home TAKE ONE [facility] Besylate Besylate [place] (1) [facility] - TABLET(S) Memoria BY MOUTH l TWICE A Outpat[facility] DAY. ent Clinics Atorvastati Atorvastati Yes Home TAKE ONE [facility] n Calcium n Calcium [place] (1) [facility] s - TABLET(S) Memoria BY MOUTH l [facility]LY. [facility] Clonidine Clonidine Yes Home [address] [facility] HCl HCl [place] at bedtime [facility] Lisinopril Lisinopril Yes Home [address] [facility] [place] [facility] Warfarin Warfarin Yes Home 1 tablet ( [facility] Sodium Sodium [place] 4 mg + 3 [facility] mg) [facility] Primidone Primidone Yes Home [address] [facility] [place] [facility] Ferrous Ferrous Yes Home TAKE ONE [facility] Sulfate Sulfate [place] (1) [facility] - TABLET(S) Memoria BY MOUTH l TWICE [facility] WITH ent MEALS. Clinics Amitriptyli Amitriptyli Yes Home [address] ne HCl ne HCl [place] [facility] Topamax Topamax Yes Home [address] [facility] [place] [facility] Warfarin Warfarin Yes Home [address] Sodium Sodium [place] [facility] Vitamin D3 Vitamin D3 Yes Home [address] [facility] [place] [facility] Immunizations Ordered Immunization Filled Immunization Date Status Commen ts Source Name Name FLUZONE HIGH-DOSE PF 2019-06-17 Completed [place] 00:00:00 [facility] Vital Signs Vital Name Observation Time Observation Value Comments Source Systolic (mm Hg) 2020-11-01 21:06:00 Micah Escoto Diastolic (mm Hg) 2020-11-01 [facility]:06:[facility] 2020-11-01 21:06:00 [facility] [place] Respitory Rate 2020-11-01 21:06:00 Julian Goreann Weight 2020-11-01 21:06:00 [facility] [place] Heart Rate 2018-08-13 22:09:00 [facility] [place] Respitory Rate 2018-08-13 22:09:00 Julian al Jevon Systolic (mm Hg) 2018-08-13 22:09:00 Micah rial Jevon Diastolic (mm Hg) 2018-08-13 22:09:00 [facility] orial [place] BMI Calculated 2018-08-13 22:09:00 Julian al Jevon Height 2018-08-13 22:09:00 [facility] 2018-08-13 [facility]:09[facility] Systolic (mm Hg) 2016-05-30 16:34:00 Micah rial Jevon Diastolic (mm Hg) 2016-05-30 16:34:00 Mem orial Jevon Temperature Oral (F) 2016-05-30 16:34:00 97.7 F [facility] [place] Heart Rate 2016-05-30 16:34:00 [facility] [place] Respitory Rate 2016-05-30 16:34:00 Memori al Jevon Respitory Rate 2016-05-30 13:20:00 Memori al [place] Heart Rate 2016-05-30 13:20:00 [facility] [place] Systolic (mm Hg) 2016-05-30 13:20:00 Micah rial Jevon Diastolic (mm Hg) 2016-05-30 13:20:00 Mem orial [place] Temperature Oral (F) 2016-05-30 13:20:00 97.8 F [facility] [place] Systolic (mm Hg) 2016-05-30 08:32:00 Micah rial Jevon Diastolic (mm Hg) 2016-05-30 08:32:00 Mem orial [place] Temperature Oral (F) 2016-05-30 08:32:00 98.1 F [facility] Jevon Respitory Rate 2016-05-30 08:32:00 Memori al [place] Heart Rate 2016-05-30 08:32:00 [facility] [place] BMI Calculated 2016-05-25 07:10:00 Memori al [place] Weight 2016-05-25 07:10:00 [facility] J[place] Height 2016-05-25 07:10:00 172.72 cm [facility] J[place] Weight 2016-05-25 01:40:00 [facility] [place] BMI Calculated 2016-05-25 01:40:00 Memori al Jevon Height 2016-05-25 01:40:00 170.18 cm [facility] Jevon Procedures Procedure Date / Time Performed Performing Clinician [facility] Abdominal aortic aneurysm Memori al Jevon stenting<sup>1</sup> Bypass / graft of vein [facility] Planned Activity Planned Date Details Comments Source Future Scheduled 2021-04-[address] [facility] 00:00:00 (Season Ended) [code = Medic al Center INFLUENZA VACCINE (Season Ended)] Future Scheduled 2021-03-10 INFLUENZA VACCINE [place] [facility] Test 00:00:00 [code = INFLUENZA VACCINE] Future Scheduled 2020-08-[address] [facility] Test 00:00:00 (12+) [code = Medical Center DEPRESSION SCREENING (12+)] Future Scheduled 2008-02-22 65+ PNEUMOCOCCAL [facility] Test 00:00:00 VACCINE (2 of 2 - [...] Scheduled 1993 SHINGLES VACCINES (#1) [place] [facility] 00:00:00 [code = SHINGLES VACCINES (#1)] [...] Scheduled 1961 Hepatitis C screening [place] [facility] Test 00:00:00 (procedure) [code = 891366849] Future Scheduled 1961 HEPATITIS C [facility]CRE[facility]ING [facility]00 [code = HEPATITIS C Medical Center SCREENING] Future Scheduled 1955 COVID-19 VACCINE (1) Rodolfo ston [facility] Test 00:00:00 [code = COVID-19 VACCINE (1)] Future Scheduled 1955 COVID-19 VACCINE (1) [facility] Test 00:00:00 [code = COVID-[address] VACCINE (1)] Encounters Start End Encounter Admission Attending Care Care Encounter Source Date/Time Date/Time Type Type Clinicians Facility Department ID 2021-01-08 2021-01-08 Outpatient [facility] [id number] [facility] 2020-12-05 2020-12-05 Outpatient [facility] [id number] [facility] 2020-11-27 2020-11-28 Outpatient MHMISCHER MHMISCHER [id number] 15:11:31 23:59:59 03 2020-11-01 2020-11-01 Outpatient Krell, MHMISCHER MHMISCHER [id number] 16:00:00 23:59:59 Jamesbarbi Salvador 2020-10-23 2020-10-23 Outpatient [facility] [id number] [facility] 2020-10-18 2020-10-18 Outpatient Earl, MHMISCHER MHMISCHER [id number] 15:30:00 15:30:00 James 11 [place] 2020-10-12 2020-10-12 Outpatient aErl, MHMISCHER MHMISCHER [id number] 09:00:00 09:00:00 James 10 [place] 2020-07-03 2020-07-03 Outpatient [facility] [id number] [facility] 2020-06-19 2020-06-19 Outpatient Earl, MHMISCHER MHMISCHER [id number] 14:00:00 14:00:00 James 07 [place] 2020-06-19 2020-06-19 Outpatient Earl, MHMISCHER MHMISCHER [id number] 14:00:00 14:00:00 James 08 [place] 2020-06-07 2020-06-07 Outpatient [facility]LMLC [facility] [id number] [facility] 2020-05-30 2020-05-30 Outpatient STLMLC [facility]LML[facility] [id number] [facility] 2020-03-05 2020-03-05 [facility] [id number] [address] 13:30:00 13:30:00 t [place] [employer] s - RELEASEIF [facility] Outpat[facility] ent Clinics 2020-01-26 2020-01-26 [facility] [id number] 11:08:00 11:08:00 t [employer] s - RELEASEIF [facility] Outpat[facility] ent Clinics 2019-12-27 2019-12-27 [facility] [id number] 14:45:00 14:45:00 t Rogers [employer] - RELEASEIF [facility] Outpat[facility] ent Clinics 2019-12-15 2019-12-15 Outpatient Earl MISCHER MHMISCHER [id number] 10:45:00 23:59:59 James 06 [place] 2019-11-15 2019-11-15 Outpatient Earl MISCHER MHMISCHER [id number] 09:15:00 09:15:00 James 05 [place] 2019-09-16 2019-09-16 [facility] [id number] 14:58:00 14:58:00 t Rogers [employer] HOMETRAX [facility] Outpati ent Clinics 2019-09-14 2019-09-14 [facility] [id number] 14:45:00 14:45:00 t Red Aril s HOMETRAX [facility] Medicine Outpati ent Clinics 2019-08-31 2019-08-31 Outpatient Earl, MISCHER MISCHER [id number] 13:45:00 13:45:00 James 04 [place] 2019-08-19 2019-08-19 [facility] [id number] [facility] 14:49:00 14:49:00 t [employer] - RELEASEIF [facility] Medicine Outpati ent Clinics 2019-07-20 2019-07-20 [facility] [id number] 15:09:00 15:09:00 t [employer] - RELEASEIF [facility] Medicine Outpati ent Clinics 2019-06-30 2019-06-30 [facility] [id number] 08:49:00 08:49:00 t [employer] HOMETRAX [facility] Medicine Outpati ent Clinics 2019-06-27 2019-06-27 [facility] [id number] 15:00:00 15:00:00 t Red Aril s - RELEASEIF [facility] Outpati ent Clinics 2019-06-08 2019-06-17 Inpatient [facility] [id number] [place] 00:00:00 00:00:00 DENZEL Yamil [facility] 2019-05-13 2019-05-[address] [id number] 15:00:00 15:00:00 Jamesbarbi Salvador 2019-03-15 2019-03-15 [facility] [id number] 16:15:00 16:15:00 t Red Aril s - RELEASEIF [facility] Outpati ent Clinics 2019-02-22 2019-02-22 [facility] [id number] 10:56:00 10:56:00 t Red Aril s - RELEASEIF [facility] Medicine Outpati ent Clinics 2019-01-21 2019-01-21 [facility] [id number] 16:26:00 16:26:00 t Red Aril s - RELEASEIF [facility] Outpati ent Clinics 2018-12-07 2018-12-07 [facility] [id number] 14:15:00 14:15:00 t Specialty/U Karine kes - Specialty rology [facility] a /Urology Clinic l Clinic Outpati ent Clinics 2018-12-01 2018-12-01 [facility] [id number] 14:15:00 14:15:00 t Red Aril s - Drive [facility] Medicine Outpati ent Clinics 2018-11-10 2018-11-10 [facility] [id number] 15:15:00 15:15:00 t Red Aril s [employer] [address] [facility] Medicine Outpati ent Clinics 2018-08-17 2018-08-18 Outpatient MHMISCHER MISCHER [id number] 15:18:00 23:59:59 02 2018-08-13 2018-08-13 [id number] 15:45:00 23:59:59 James Александр Salvador 2018-08-12 2018-08-12 [facility] [id number] 16:00:00 16:00:[address] Luke s - Drive [facility] Medicine l Medicine Outpati ent Clinics 2018-05-19 2018-05-19 [facility] [id number] 08:50:00 08:50:[address] Luke s - Drive [facility] l Medicine Outpati ent Clinics 2018-05-11 2018-05-11 [facility] [id number] 09:14:00 09:14:[address] Luke s - Drive [facility] l Medicine Outpati ent Clinics 2018-04-07 2018-04-07 [facility] [id number] 15:15:00 15:15:00 t Rogers Rogers RELEASEIF Luke s - Drive [facility] Medicine Outpati ent Clinics 2018-04-05 2018-04-05 [facility] [id number] 10:00:00 10:00:00 t Rogers Rogers RELEASEIF Luke s - Drive [facility] Medicine l Medicine Outpati ent Clinics 2018-03-31 2018-03-31 [facility] [id number] 09:00:00 09:00:00 t Rogers Rogers RELEASEIF Luke s - Drive [facility] Medicine Outpati ent Clinics 2018-03-23 2018-03-23 [facility] [id number] 09:00:00 09:00:00 t Rogers Rogers RELEASEIF Luke s - Drive [facility] Medicine Outpati ent Clinics 2018-03-04 2018-03-04 [facility] [id number] 16:21:00 16:21:[address] Luke s - Drive [facility] Medicine Outpati ent Clinics 2018-02-24 2018-02-24 [facility] [id number] 16:02:00 16:02:[address] Luke s - Drive [facility] Medicine Outpati ent Clinics 2018-02-24 2018-02-24 [facility] [id number] 14:30:00 14:30:[address] Luke s - Drive [facility] l Medicine Outpati ent Clinics 2018-02-15 2018-02-15 [facility] [id number] 16:32:00 16:32:[address] Luke s - Drive [facility] Medicine l Medicine Outpati ent Clinics 2018-01-01 2018-01-01 [facility] [id number] 10:03:00 10:03:[address] Luke s - Drive [facility] l Medicine Outpati ent Clinics 2017-12-30 2017-12-30 [facility] [id number] 16:56:00 16:56:[address] Luke s - Drive [facility] Medicine l Medicine Outpati ent Clinics 2017-12-30 2017-12-30 [facility] [id number] 14:30:00 14:30:[address] Luke s - Drive [facility] Medicine l Medicine Outpati ent Clinics 2017-12-24 2017-12-24 [facility] [id number] 09:12:00 09:12:[address] Luke s - Drive [facility] Medicine l Medicine Outpati ent Clinics 2017-12-22 2017-12-22 [facility] [id number] 08:18:00 08:18:[address] Luke s - Drive [facility] Medicine l Medicine Outpati ent Clinics 2017-12-10 2017-12-10 [facility] [id number] 13:37:00 13:37:[address] Luke s - Drive [facility] Medicine l Medicine Outpati ent Clinics 2017-12-03 2017-12-03 [facility] [id number] 15:29:00 15:29:[address] Luke s - Drive [facility] Medicine l Medicine Outpati ent Clinics 2017-12-01 2017-12-01 [facility] [id number] 10:54:00 10:54:[address] Luke s - Drive [facility] Medicine l Medicine Outpati ent Clinics 2017-11-13 2017-11-13 [facility] [id number] 12:22:00 12:22:[address] Luke s - Drive [facility] Medicine Outpati ent Clinics 2017-11-13 2017-11-13 [facility] [id number] 09:51:00 09:51:[address] Luke s - Drive [facility] Medicine Outpati ent Clinics 2017-11-10 2017-11-10 [facility] [id number] 15:34:00 15:34:00 t Rogers Rogers RELEASEIF Luke s - Drive [facility] Medicine Outpati ent Clinics 2017-11-04 2017-11-04 [facility] [id number] 15:30:00 15:30:00 t Rogers Rogers RELEASEIF Luke s - Drive [facility] Medicine Outpati ent Clinics 2016-05-24 2016-05-30 Outpatient [facility] [id number] 20:36:00 11:59:00 Abraham Reid 67 Results Test Description Test Time Test Comments Results Result Comments Source AFB CULTURE + SMEAR 2018-05-02 20:50:00 Test Item Value Reference Range Interpretation Comme nts CULTURE (BEAKER) (test code = 1095) No acid-fast bacilli isolated i n 42 days AFB SMEAR (BEAKER) (test code = 994) No acid fast bacilli seen AFB CULTURE + [id number] 20:50:00 Test Item Value Reference Range Interpretation Comments CULTURE (BEAKER) (test No acid-fast bacilli code = 1095) isolated in 42 days AFB SMEAR (BEAKER) No acid fast bacilli (test code = 994) seen FUNGUS CULTURE + [id number] 10:14:00 Test Item Value Reference Range Interpretation Comments CULTURE (BEAKER) (test No fungus isolated in code = 1095) 28 days FUNGUS SMEAR (BEAKER) No fungi seen (test code = 1406) FUNGUS CULTURE + [id number] 10:14:00 Test Item Value Reference Range Interpretation Comments CULTURE (BEAKER) (test No fungus isolated in code = 1095) 28 days FUNGUS SMEAR (BEAKER) No fungi seen (test code = 1406) VANCOMYCIN LEVEL, [id number] 05:33:00 Test Item Value Reference Range Interpretation Comments VANCOMYCIN RANDOM (BEAKER) (test 16.9 ug/mL code = 523) Reference Range: No NormalsBASIC METABOLIC [id number] 05:29:00 Test Item Value Reference Range Interpretation [...] NOT APPLICABLE FOR DIALYSIS PATIEN TS. PROTHROMBIN TIME/[id number] 05:21:00 Test Item Value Reference Range Interpretation [...] NOT APPLICABLE FOR DIALYSIS PATIEN TS. ANAEROBIC [id number] 08:59:00 Test Item Value Reference Range Interpretation Comments CULTURE (BEAKER) (test No anaerobes isolated code = 1095) ANAEROBIC [id number] 08:58:00 Test Item Value Reference Range Interpretation Comments CULTURE (BEAKER) (test No anaerobes isolated code = 1095) VANCOMYCIN LEVEL, [id number] 05:18:00 Test Item Value Reference Range Interpretation Comments VANCOMYCIN RANDOM (BEAKER) (test 19.8 ug/mL code = 523) Reference Range: No NormalsPROTHROMBIN TIME/[id number] 04:55:00 Test Item Value Reference Range Interpretation [...] 10.0-20.0 H code = 522) BASIC METABOLIC [id number] 15:13:00 Test Item Value Reference Range Interpretation [...] NOT APPLICABLE FOR DIALYSIS PATIEN TS. PROTHROMBIN TIME/[id number] 06:16:00 Test Item Value Reference Range Interpretation [...] heart valves.While on warfarin.LACTIC ACID, VENOUS, WHOLE [id number] 06:09:00 Test Item Value Reference Range Interpretation Comments LACTATE BLOOD VENOUS (2) (BEAKER) 0.6 mmol/L 0.5-2.2 (test code = 2872) Effective 12/12/2015: Units/Reference Range ChangeNew: 0.5-2.2 mmol/L Previous: 5-20 mg/dLTISSUE [id number] 11:35:00Surgical Pathology Report Case: [id number] Authorizing Provider: Aris Parker MD Collected: 03/23/2018 1136 Ordering Location: [facility] Received: 03/23/2018 1158 PERIOPERATIVE SERVICES Pathologist: Lanie Jaquez MD Specimen: Groin, Right, Right Groin Tissue SOFT TISSUE, RIGHT GROIN, DEBRIDEMENT: - FIBROADIPOSE TISSUE WITH FAT NECROSIS, ACUTE AND CHRONIC INFLAMMATION, AND FOREIGN BODY GIANT CELL REACTION Signing Pathologist Direct Phone Line: [phone] signed by Lanie Jaquez MD on 03/26/2018 at 11:35 [id number] groin tissueThe specimen is received in a formalin-filled container and labeled with the patient's information and labeled "right groin tissue" and consists of a segment of rodríguez-chapman hemorrhagic soft tissue measuring 3 x 1.6 x 0.5 cm. Service Advocate Contact sections are submitted A1.CG/pl Performed.SURGICALLY OBTAINED CULTURE + GRAM [id number] 09:47:00 Test Item Value Reference Range Interpretation Comments GRAM STAIN RESULT (BEAKER) <1+ WBCs (test code = 1123) GRAM STAIN RESULT (BEAKER) No organisms seen (test code = 72094) SURGICALLY OBTAINED CULTURE + GRAM [id number] 09:45:00 Test Item Value Reference Interpretation Comments [...] No organisms seen (BEAKER) (test code = 346621) BASIC METABOLIC [id number] 05:17:00 Test Item Value Reference Range Interpretation [...] NOT APPLICABLE FOR DIALYSIS PATIEN TS. PROTHROMBIN TIME/[id number] 05:06:00 Test Item Value Reference Range Interpretation [...] NOT APPLICABLE FOR DIALYSIS PATIEN TS. PROTHROMBIN TIME/[id number] 06:28:00 Test Item Value Reference Range Interpretation [...] valves.While on warfarin.CBC W/PLT COUNT & AUTO [id number] 06:18:00 Test Item Value Reference Range Interpretation [...] (BEAKER) (test code = 2801) VANCOMYCIN LEVEL, [id number] 17:22:00 Test Item Value Reference Range Interpretation Comments VANCOMYCIN TROUGH (BEAKER) (test 14.6 ug/mL 10.0-20.0 code = 522) SPIN/CONCENTRATION [id number] 10:53:00 Test Item Value Reference Range Interpretation Comments CONCENTRATION CHARGED (BEAKER) (test Done code = 1467) BASIC METABOLIC [id number] 07:34:00 Test Item Value Reference Range Interpretation [...] NOT APPLICABLE FOR DIALYSIS PATIEN TS. PROTHROMBIN TIME/[id number] 07:05:00 Test Item Value Reference Range Interpretation [...] (BEAKER) (test code = 2801) BASIC METABOLIC [id number] 06:54:00 Test Item Value Reference Range Interpretation [...] NOT APPLICABLE FOR DIALYSIS PATIEN TS. PROTHROMBIN TIME/[id number] 05:47:00 Test Item Value Reference Range Interpretation [...] PERCENT (BEAKER) (test code = 2801) TISSUE [id number] 16:28:00Surgical Pathology Report Case: [id number] Authorizing Provider: Christian Hdz MD Collected: 02/02/2018 194 Ordering Location: [facility] Received: 02/03/2018 0813 Pathologist: Sidney Wright MD Specimen: Plaque ARTERY, RIGHT EMERALD, ENDARTERECTOMY:CALCIFIC ATHEROSCLEROTIC PLAQUE WITH EROSION AND ATTACHED ORGANIZING THROMBUS Signing Pathologist Direct Phone Line: [phone] signed by Sidney Wright MDon 02/09/2018 at 4:28 [id number] femoral artery plaqueRight femoral artery plaqueThe specimen is received in a formalin-filled container and labeled with the patient's information and labeled "right femoral artery plaque and consists of two calcified fragments of tissue both measuring 2 cm in length ranging in diameter from 0.6 to 1 cm and separate segment of hemorrhagic calcified tissue measuring 2.5 x 1.5 x 1 cm in aggregate. Service Advocate Contact sections are submitted A1 for decalcification. CG/pl [id number] 06:08:00 Test Item Value Reference Range Interpretation Comments PHOSPHORUS (BEAKER) (test code = 2.2 mg/dL 2.3-4.7 L 604) [id number] 06:08:00 Test Item Value Reference Range Interpretation Comments MAGNESIUM (BEAKER) (test code = 2.1 mg/dL 1.6-2.6 627) BASIC METABOLIC [id number] 06:08:00 Test Item Value Reference Range Interpretation [...] (BEAKER) (test code = 413) HEMOGLOBIN AND [id number] 11:55:00 Test Item Value Reference Range Interpretation Comments HEMOGLOBIN (BEAKER) (test code = 8.4 GM/DL 13.7-17.5 L 410) HEMATOCRIT (BEAKER) (test code = 28.9 % 40.1-51.0 L 411) [id number] 04:57:00 Test Item Value Reference Range Interpretation Comments PHOSPHORUS (BEAKER) (test code = 2.5 mg/dL 2.3-4.7 604) [id number] 04:57:00 Test Item Value Reference Range Interpretation Comments MAGNESIUM (BEAKER) (test code = 1.7 mg/dL 1.6-2.6 627) BASIC METABOLIC [id number] 04:57:00 Test Item Value Reference Range Interpretation [...] = 413) CBC W/PLT COUNT & AUTO [id number] 15:56:00 Test Item Value Reference Range Interpretation [...] (BEAKER) (test code = 2801) COMPREHENSIVE METABOLIC [id number] 05:49:00 Test Item Value Reference Range Interpretation [...] S NOT APPLICABLE FOR DIALYSIS PATIEN TS. [id number] 05:48:00 Test Item Value Reference Range Interpretation Comments PHOSPHORUS (BEAKER) (test code = 2.9 mg/dL 2.3-4.7 604) [id number] 05:48:00 Test Item Value Reference Range Interpretation Comments MAGNESIUM (BEAKER) (test code = 1.7 mg/dL 1.6-2.6 627) CBC W/PLT COUNT & AUTO [id number] 04:20:00 Test Item Value Reference Range Interpretation [...] (BEAKER) (test code = 2801) VANCOMYCIN LEVEL, [id number] 23:58:00 Test Item Value Reference Range Interpretation Comments VANCOMYCIN TROUGH (BEAKER) (test code < ug/mL 10.0-20.0 L = 522) PROTHROMBIN [id number] 23:27:00 Test Item Value Reference Range Interpretation Comments PROTIME (BEAKER) (test code = 15.6 seconds 11.7-14.7 H 759) INR (BEAKER) (test code = 370) 1.2 <=5.9 RECOMMENDED COUMADIN/WARFARIN INR THERAPY RANGESSTANDARD DOSE: 2.0 - 3.0 Includes: PROPHYLAXIS forvenous thrombosis, systemic embolization; TREATMENT for venous thrombosis and/or pulmonary embolus.HIGH RISK: Target INR is 2.5-3.5 for patients with mechanical heart valves.[id number] 23:27:00 Test Item Value Reference Range Interpretation Comments FIBRINOGEN LEVEL (BEAKER) (test 276 mg/dl 225-434 code = 658) [id number] 23:27:00 Test Item Value Reference Range Interpretation Comments PARTIAL THROMBOPLASTIN TIME 29.8 seconds 22.5-36.0 (BEAKER) (test code = 760) CBC W/PLT COUNT & AUTO [id number] 23:22:00 Test Item Value Reference Range Interpretation [...] 0-1 PERCENT (BEAKER) (test code = 2801) [id number] 23:21:00 Test Item Value Reference Range Interpretation Comments PHOSPHORUS (BEAKER) (test code = 3.1 mg/dL 2.3-4.7 604) [id number] 23:21:00 Test Item Value Reference Range Interpretation Comments MAGNESIUM (BEAKER) (test code = 1.7 mg/dL 1.6-2.6 627) BASIC METABOLIC [id number] 23:21:00 Test Item Value Reference Range Interpretation [...] APPLICABLE FOR DIALYSIS PATIEN TS. HEPATIC FUNCTION [id number] 23:21:00 Test Item Value Reference Range Interpretation [...] U/L 6-55 347) LACTIC ACID, ARTERIAL, WHOLE [id number] 23:15:00 Test Item Value Reference Range Interpretation Comments LACTATE BLOOD ARTERIAL (2) 1.7 mmol/L 0.5-2.2 (BEAKER) (test code = 2874) Effective 12/12/2015: Units/Reference Range ChangeNew: 0.5-2.2 mmol/L Previous: 5-20 mg/dLRAD, CHEST, 1 VIEW, NON [id number] 23:12:00Reason for exam:- >s/p cardiac surgeryShould this [...] MDReport Verified Date/Time: 02/02/2018 23:12:37 Reading Location: [address] Consult Reading Room Electronicallysigned by: DENZEL HUITRON MD on 02/02/2018 11:12 PMHEMOGLOBIN AND [id number] 23:06:00 Test Item Value Reference Range Interpretation Comments HEMOGLOBIN (BEAKER) (test code = 11.3 GM/DL 13.7-17.5 L 410) HEMATOCRIT (BEAKER) (test code = 37.7 % 40.1-51.0 L 411) CALCIUM, [id number] 22:57:00 Test Item Value Reference Range Interpretation Comments CALCIUM IONIZED (BEAKER) (test 1.02 mmol/L 1.12-1.27 L code = 698) PH, BLOOD (BEAKER) (test code = 7.38 1810) OXYGEN SATURATION, [id number] 22:56:00 Test Item Value Reference Range Interpretation Comments O2 SATURATION (MEASURED) (BEAKER) 72.2 % (test code = 1455) PROTHROMBIN [id number] 19:20:00 Test Item Value Reference Range Interpretation Comments PROTIME (BEAKER) (test code = 17.6 seconds 11.7-14.7 H 759) INR (BEAKER) (test code = 370) 1.5 <=5.9 RECOMMENDED COUMADIN/WARFARIN INR THERAPY RANGESSTANDARD DOSE: 2.0 - 3.0 Includes: PROPHYLAXIS forvenous thrombosis, systemic embolization; TREATMENT for venous thrombosis and/or pulmonary embolus.HIGH RISK: Target INR is 2.5-3.5 for patients with mechanical heart valves.[id number] 19:20:00 Test Item Value Reference Range Interpretation Comments FIBRINOGEN LEVEL (BEAKER) (test 240 mg/dl 225-434 code = 658) [id number] 19:20:00 Test Item Value Reference Range Interpretation Comments PARTIAL THROMBOPLASTIN TIME 33.3 seconds 22.5-36.0 (BEAKER) (test code = 760) PLATELET [id number] 19:00:00 Test Item Value Reference Range Interpretation Comments PLATELET COUNT (BEAKER) (test 149 K/CU MM 150-450 L code = 756) POTASSIUM-STAT [id number] 18:54:00 Test Item Value Reference Range Interpretation Comments POTASSIUM (BEAKER) (test code = 4.2 meq/L 3.6-5.5 379) HEMOGLOBIN-STAT [id number] 18:54:00 Test Item Value Reference Range Interpretation Comments HEMOGLOBIN (BEAKER) (test code = 9.9 g/dL 13.0-16.8 L 410) HEMATOCRIT-STAT [id number] 18:54:00 Test Item Value Reference Range Interpretation Comments HEMATOCRIT (BEAKER) (test code = 411) 29.0 % 40.0-50.0 L BLOOD GAS, [id number] 18:54:00 Test Item Value Reference Range Interpretation [...] C (test code = 1818) SODIUM NA-STAT [id number] 18:54:00 Test Item Value Reference Range Interpretation Comments SODIUM (BEAKER) (test code = 381) 133 meq/L 135-148 L GLUCOSE-STAT [id number] 18:54:00 Test Item Value Reference Range Interpretation Comments GLUCOSE RANDOM (BEAKER) (test code 134 mg/dL 70-110 H = 652) HGB/HCT (H&H) - STAT [id number] 18:54:00 Test Item Value Reference Range Interpretation Comments HEMOGLOBIN (BEAKER) (test code = 9.9 GM/DL 13.0-16.8 L 410) HEMATOCRIT (BEAKER) (test code = 29.0 % 40.0-50.0 L 411) CALCIUM, [id number] 18:54:00 Test Item Value Reference Range Interpretation Comments CALCIUM IONIZED (BEAKER) (test 1.03 mmol/L 1.12-1.27 L code = 698) PH, BLOOD (BEAKER) (test code = 7.37 1810) CALCIUM, [id number] 18:13:00 Test Item Value Reference Range Interpretation Comments CALCIUM IONIZED (BEAKER) (test 1.02 mmol/L 1.12-1.27 L code = 698) PH, BLOOD (BEAKER) (test code = 7.36 1810) [id number] 17:42:00 Test Item Value Reference Range Interpretation Comments ACTIVATED CLOTTING TIME 279 sec TEST ED AT [place] [address] ([facility]) (test code = [place] [address]) [address] [id number] 17:42:00 Test Item Value Reference Range Interpretation Comments ACTIVATED CLOTTING TIME 224 sec TEST ED AT [place] [address] ([facility]) (test code = [place] [address]) [address] [id number] 17:42:00 Test Item Value Reference Range Interpretation Comments ACTIVATED CLOTTING TIME 158 sec TEST ED AT [place] [address] ([facility]) (test code = DIMITRIS Ag [facility] 441) [address] HGB/HCT (H&H) - STAT [id number] 16:30:00 Test Item Value Reference Range Interpretation Comments HEMOGLOBIN (BEAKER) (test code = 9.9 GM/DL 13.0-16.8 L 410) HEMATOCRIT (BEAKER) (test code = 29.0 % 40.0-50.0 L 411) POTASSIUM-STAT [id number] 16:30:00 Test Item Value Reference Range Interpretation Comments POTASSIUM (BEAKER) (test code = 3.7 meq/L 3.6-5.5 379) SODIUM NA-STAT [id number] 16:30:00 Test Item Value Reference Range Interpretation Comments SODIUM (BEAKER) (test code = 381) 134 meq/L 135-148 L GLUCOSE-STAT [id number] 16:30:00 Test Item Value Reference Range Interpretation Comments GLUCOSE RANDOM (BEAKER) (test code 105 mg/dL 70-110 = 652) [id number] 16:17:00 Test Item Value Reference Range Interpretation Comments ACTIVATED CLOTTING TIME 301 sec TEST ED [facility] [place] [address] [facility] (test code = [place] Ag [place] [address]) [address] BLOOD GAS, [id number] 16:16:00 Test Item Value Reference Range Interpretation [...] (test 37.0 C code = 1818) CALCIUM, [id number] 16:11:00 Test Item Value Reference Range Interpretation Comments CALCIUM IONIZED (BEAKER) (test 1.09 mmol/L 1.12-1.27 L code = 698) PH, BLOOD (BEAKER) (test code = 7.42 1810) MR, MRA, EXTREMITY, LOWER, WITHOUT FOLLOW, WITH [id number] 17:43:00 Bilateral extremitiesChristian Hdz MD [facility] Yoni Hdz MD [facility] CITYlinical Professor [facility] CampusCo [facility] [employer] of PVD Services at [facility]/Melba of Peripheral Vascular Medicine at [address] [place], [place] [email or web address] [email or web address] MRA of the lower [...] reconstruction was performed by an independent workstation ([facility]). Please refer to the contrast sheetscanned in [...] CT scan. The proximal abdominal aorta is [place]. The celiac axis, SMA are patent with [...] coil embolisation procedure as per EPIC. The [place] left external iliac artery and the left [...] centimeters of the left SFA could be [place]. However, there is likely a left femoral [...] posterior tibial artery. In the right, the [place] right SFA is seen to be occluded. [...] though thereafter, it is occluded. 4. The [place] left SFA is likely occluded and a left femoral to distal popliteal bypass graft is identified that is patent with no proximal or distal anastomotic stenosis. Essentially three-vessel runoff is seen in the left lower extremity. 5. In the right, the [place] right SFA is o ccluded. It appears [...] MDReport Verified Date/Time: 01/28/2018 17:43:09 Reading Location: [place] [address] Cardiology MRI C METABOLIC [id number] 07:36:00 Test Item Value Reference Range Interpretation [...] 0-0 (BEAKER) (test code = 413) PROTHROMBIN TIME/[id number] 14:15:00 Test Item Value Reference Range Interpretation [...] valves.Within 24 hours, if on CoumadinBASIC METABOLIC [id number] 06:41:00 Test Item Value Reference Range Interpretation [...] (BEAKER) (test code = 413) BLOOD GAS, [id number] 10:39:00 Test Item Value Reference Range Interpretation [...] code = 1819) 46.0 % SODIUM NA-STAT [id number] 10:39:00 Test Item Value Reference Range Interpretation Comments SODIUM (BEAKER) (test code = 381) 131 meq/L 135-148 L POTASSIUM-STAT [id number] 10:39:00 Test Item Value Reference Range Interpretation Comments POTASSIUM (BEAKER) (test code = 3.1 meq/L 3.6-5.5 L 379) GLUCOSE-STAT [id number] 10:39:00 Test Item Value Reference Range Interpretation Comments GLUCOSE RANDOM (BEAKER) (test code 121 mg/dL 70-110 H = 652) HGB/HCT (H&H) - STAT [id number] 10:39:00 Test Item Value Reference Range Interpretation Comments HEMOGLOBIN (BEAKER) (test code = 8.1 g/dL 13.0-16.8 L 410) HEMATOCRIT (BEAKER) (test code = 24.0 % 40.0-50.0 L 411) [id number] 10:10:00 Test Item Value Reference Range Interpretation Comments ACTIVATED CLOTTING TIME 224 sec [address] ED [address] [facility] 6720 (BEAKER) (test code = [place] 441) [address] CBC (HEMOGRAM ONLY)2017-12-05 06:51:00 Test Item Value [...] (BEAKER) (test code = 413) BASIC METABOLIC [id number] 06:44:00 Test Item Value Reference Range Interpretation [...] S NOT APPLICABLE FOR DIALYSIS PATIEN TS. [id number] 12:39:00 Test Item Value Reference Range Interpretation Comments ACTIVATED CLOTTING TIME 136 sec TEST ED AT [facility] 6720 (BEAKER) (test code = DIMITRIS P[place] 441) [address] [id number] 11:51:00 Test Item Value Reference Range Interpretation Comments ACTIVATED CLOTTING TIME 147 sec TEST ED AT [place] [address] ([facility]) (test code = DIMITRIS SALAZAR 441) [id number] 09:21:00 Test Item Value Reference Range Interpretation Comments ACTIVATED CLOTTING TIME 213 sec TEST ED AT [place] [address] ([facility]) (test code = DIMITRIS P[place] 441) [address] [id number] 08:58:00 Test Item Value Reference Range Interpretation Comments ACTIVATED CLOTTING TIME 191 sec TEST ED AT [place] [address] ([facility]) (test code = DIMITRIS PANDYA [place] 441) [address] CT, CTA [id number] 11:56:00Addendum BeginsREPORT STATUS:A Addendum: The images were reviewed with Dr. Hdz. There is a missing dictation, specifically, despite the aortic bypass surgery the [place] left common iliac artery is still patent [...] MDReport Verified Date/Time: 11/27/2017 11:56:33 Reading Location: [place] [address] Cardiology MRIAddendum EndsAddendum BeginsREPORT STATUS:A ADDENDUM: Study [...] B[place]ep[place] Verified Date/Time: 11/26/2017 18:03:42 Reading Location: [place] [address] Angio Body Reading RoomAddendum EndsFINAL REPORT CT [...] takeoff of the left renal artery with dkfh-jp-zqiopnwk stenosis identified. Arch vessel branching pattern is [...] mm, respectively with m ild tortuosity and gidb-yy-lvbuxlbf calcific atherosclerosis present. Right iliac limb is [...] dictated, however, the ordering physician is the [employer]TEGR[employer] of the [facility] and therefore no recommendation would be necessary. [...] An addendum will be dictated by the Sccm Administrator Radiologist regarding the nonvascular findings. Signed: Juwan Ramirezort Verified Date/Time: 11/26/2017 16:25:25 Reading Location: [place] [address], CTA, [id number] 11:56:00Addendum BeginsREPORT STATUS:A Addendum: The images were reviewed with Dr. Reinier staples. There is a missing dictation, specifically, despite the aortic bypass surgery the [place] left common iliac artery is still patent with retrograde filling from the left external iliac artery, with aneurysmal dilation identified. Image 466, it measures approximately 4.3 x 4.2 cm in diameter. Some intraluminal thrombus is seen. This is the left common iliac artery. The left internal iliac artery is also patent, with calcification present. Signed: Juwan Ramirezort Verified Date/Time: 11/27/2017 11:56:33 Reading Location: [place] [address] Cardiology MRIAddendum EndsAddendum BeginsREPORT STATUS:A ADDENDUM: Study [...] MDReport Verified Date/Time: 11/26/2017 18:03:42 Reading Location: [facility] [address] Angio Body Reading RoomAddendum EndsFINAL [...] takeoff of the left renal artery with etji-rr-hyhxr ate stenosis identified. Arch vessel branching pattern [...] 8.2 mm, respectively with mild tortuosity and etaf-kn-pqrichft calcific atherosclerosis present. Right iliac limb is [...] dictated, however, the ordering physician is the INTEGR[employer] MA[employer]GER [employer] of the [facility] and therefore no recommendation would be necessary. [...] An addendum will be dictated by the Sccm Administrator Radiologist regarding the nonvascular findings. Signed: Juwan Ramirez MDReport Verified Date/Time: 11/26/2017 16:25:25 Reading Location: [place] [address] Cardiology MRI B-TYPE NATRIURETIC FACTOR (BNP)2017-11-26 18:03:00 Test Item Value Reference Range Interpretation Comments B-TYPE NATRIURETIC PEPTIDE (BEAKER) 142 pg/mL 0-100 H (test code = 700) COMPREHENSIVE METABOLIC [id number] 17:56:00 Test Item Value Reference Range Interpretation [...] NOT APPLICABLE FOR DIALYSIS PATIEN TS. PROTHROMBIN TIME/[id number] 17:33:00 Test Item Value Reference Range Interpretation [...] 0-1 PERCENT (BEAKER) (test code = 2801) [id number]-[id number] 12:34:00 Test Item Value Reference Range Interpretation Comments POC-CREATININE 1.1 mg/dL 0.6-1.3 TESTED AT [facility] 6720 (BEAKER) (test [place] code = 1859) [address] POC-EGFR (BEAKER) 65 mL/min/1.73M2 (test code = 4420) [id number] 06:22:001.08[facility] UnpismvDJZIZWDTFU4184-00-04 06:22:00 Test Item Value Reference Range Interpretation Comments PT (test code = PT) 14.2 s 12.0-14.7 [facility] KndkbusIXWFSTRODW4446-82-18 16:33:001.09[facility]ann[facility]OLOGY 2016-05-28 16:33:00 Test Item Value Reference Range Interpretation Comments PTT (test code = PTT) 27.7 s 22.9-35.8 [facility] TmevmauTLXNQZMYZY5686-82-47 16:33:00 Test Item Value Reference Range Interpretation Comments PT (test code = PT) 14.3 s 12.0-14.7 [facility] AlgamxqRVIIQJNQYY2959-05-78 16:33:71790Rtwyzysr HermannHEMATOLOGY 2016-05-28 16:33:008.4[facility] HstpzbtYZSZWSCTRE8461-26-55 16:33:0033.3[facility] HounmpfWTOJXVAHZX7904-40-58 16:33:0011.6[facility] UkaacimGPPSGOWTLF9286-80-92 16:33:00 Test Item Value Reference Range Interpretation Comments MCH (test code = MCH) 29.6 pg 27.0-31.0 [facility] LombnkfZZUOGQFUGO6606-55-63 16:33:0015.0[facility]annHEMATOLOGY 2016-05-28 16:33:0088.9[facility] BaawgdfRIOGIINZRE1041-78-63 16:33:0035.0[facility] GgjutuwNDISFBTJTM5887-57-42 16:33:003.94[facility] HgsrsmzLUXTDRKZGD4656-28-69 16:33:0011.4[facility] JpamvqcLDQOYYCWCB8993-88-14 16:33:001.3[facility] KXYKZGVZNL5720-39-02 16:33:008.9[facility] KqnmzxvUHSEFVOLRF1085-54-88 16:33:001.2 [facility] VjkcdukMBSXHMWMJI9783-24-18 16:33:000.1[facility]annHEMATOLOGY 2016-05-28 16:33:000.1[facility] BnaxxqmQXWMZGPTGC2699-33-51 16:33:000.5[facility] MwadtksXYCFTKOOZV8777-53-85 16:33:0011.5[facility] DqmmjgwEKNFCLQZLR1949-79-12 16:33:0077.6[facility] VaieplhMAPAHCZUCX5896-54-17 16:33:0010.3[facility] CHEM BVMGI3087-35-05 09:17:0089[facility] HermannCHEM AWZID5892-94-96 09:17:82716 [facility]annCHEM WXOSD6007-69-85 09:17:000.80[facility]annCHEM PANEL 2016-05-27 09:17:009[facility] HermannCHEM MXMMI2410-06-69 09:17:01078Ejpzblfm HermannCHEM QSHID6139-82-90 09:17:003.9[facility]annCHEM MFONK8565-90-41 09:17:0022[facility]annCHEM ITRZO4548-48-77 09:17:73797Qefocflz HermannCHEM TUDFS4829-64-54 09:17:008.0[facility]annCHEM JPPJZ9243-34-12 09:17:0018.9 [facility]annCHEM GLSGZ0442-14-87 09:17:002.3[facility]annCHEM PANEL 2016-05-27 09:17:001.7[facility] QgaldbmKOHSMIDNPL7551-83-13 09:17:007.2[facility] RzwcufbECTQJGRJCW2153-61-68 09:17:007.5[facility] OoyhuyuNBLIWDINJI8520-00-87 09:17:0085.1[facility] CfbifrrPMEMZHJPLL3044-47-57 09:17:009.0[facility] ZIIHAJCCOB6318-83-74 09:17:000.2[facility] SkfasnfQXAZLDYUVC7784-11-79 09:17:000.8 [facility] VkfsdoiSETQKOPLPJ4401-27-37 09:17:000.8[facility] HermannHEMATOLOGY 2016-05-27 09:17:0088.5[facility] MwjjbaxFJIZDJTFSG7596-34-60 09:17:0031.9[facility] EzspgrtEJGEWSVDVJ9910-36-24 09:17:0011.0[facility] NlqtcmkPVPQBFVSWY1405-67-16 09:17:003.61[facility] GxotjxmGAIPRHFICZ2879-83-97 09:17:00 Test Item Value Reference Range Interpretation Comments MCH (test code = MCH) 30.6 pg 27.0-31.0 [facility] ZknnvhyUFNUOFFMMD6827-20-77 09:17:0010.6[facility]annHEMATOLOGY 2016-05-27 09:17:02742Gikeqhlj BxoatciVUNOAHRZUD7691-76-41 09:17:0014.7[facility] NrnlizfZMYWTZCUVV9174-65-86 09:17:0034.6[facility] QdnqquhQJXUKCXOUR1565-01-28 09:17:009.3[facility] HermannPARATHYROID RYCQAVY0473-54-71 09:17:000.99[facility] HermannPARATHYROID YDALNUH8783-98-65 09:17:001.02[facility] HermannCARDIAC ENZYMES 2016-05-26 05:43:00<0.02[facility] HermannCARDIAC DWNFANZ9474-28-79 05:43:0050 [facility]annCHEM ENKEB2799-01-20 05:43:002.1[facility] HermannCHEM PANEL 2016-05-26 05:43:0088[facility] HermannCHEM RXENF6738-22-47 05:43:0023[facility] HermannCHEM BOERW7869-14-84 05:43:54261Tbymprhl HermannCHEM RHXUR4063-59-20 05:43:007.8[facility] HermannCHEM MPZHB0569-58-25 05:43:0016.2[facility] HermannCHEM MUJJZ4786-91-65 05:43:49966Smqgfbgw HermannCHEM LKCVF4308-24-53 05:43:0078 [facility]annCHEM VLICV0079-20-32 05:43:009[facility] HermannCHEM PANEL 2016-05-26 05:43:004.2[facility] HermannCHEM ZYCHK6109-92-77 05:43:000.81[facility] HermannCHEM AWMRY8174-55-53 05:43:003.3[facility] BjfgnedGVXTWMJLUP6707-01-99 05:43:0034.6[facility] TftdwqkIHGJNETXQN1205-53-31 05:43:0014.1[facility] SPSLLCXAJN4854-06-56 05:43:003.69[facility] RgulqmsESWIHGGVLK8911-74-70 05:43:00 10.1[facility] BwrcpotHIAHQXSPJW3489-93-62 05:43:009.0[facility]annHEMATOLOGY 2016-05-26 05:43:68235Tgyuoowu CnkzladWASQUAUREI7440-80-85 05:43:00 Test Item Value Reference Range Interpretation Comments MCH (test code = MCH) 30.3 pg 27.0-31.0 [facility] WgzdfweQHNJXNVDZY1223-79-06 05:43:0087.7[facility] HermannHEMATOLOGY 2016-05-26 05:43:0032.4[facility] NoybrjjFLTUTNLZQD4127-70-63 05:43:0011.2[facility] PmlsftiHSOZJCTGBR8672-03-16 05:43:000.2[facility] EdfjlmbEAYANGTZPO2351-76-56 05:43:00See Note (05/26/16 12:43 AM)[facility] FljdvyeEHVEXYLTRM0727-07-65 05:43:0015.5[facility] HkkedznCWIHSSIJZE9807-07-09 05:43:00 Test Item Value Reference Range Interpretation Comments Max Amp (test code = Max Amp) 75.6 mm 50.0-70.0 [facility] AfixppqEKAPTBBNWB1684-80-51 05:43:005.3[facility] HermannHEMATOLOGY 2016-05-26 05:43:00 Test Item Value Reference Range Interpretation Comments K-time (test code = K-time) 0.8 min 1.0-3.0 [facility] RfbncmkZJIPHASNDL2455-88-26 05:43:00 Test Item Value Reference Range Interpretation Comments Angle (test code = Angle) 78.6 degrees 53.0-72.0 [facility] VihruthSCFVHWICAO7589-11-61 05:43:00 Test Item Value Reference Range Interpretation Comments R-time (test code = R-time) 2.8 min 5.0-10.0 [facility] UvfgnemHJIOPWUNYC0899-21-24 05:43:0010.1[facility] HermannHEMATOLOGY 2016-05-26 05:43:0013.2[facility] WmpylfmSCMEBHCHMU1590-90-00 05:43:007.7[facility] TtinavxWXKCYUNVAY3112-90-62 05:43:000.4[facility] WxahjvsWNECTHLMLQ0616-69-22 05:43:000.1[facility] StyxnqtZDUZTXVFZC7361-08-39 05:43:001.0[facility] ALNRJRGJNP7127-72-45 05:43:001.3[facility] KpjqhhcKGPDETFUWV5135-85-53 05:43:00 76.2[facility] HermannPARATHYROID SRKXVRE8150-21-72 05:43:001.11[facility] PARATHYROID PEMUQFY4593-84-47 05:43:001.08[facility] HermannCHEM CYRYN3002-24-18 21:31:0080[facility] HermannCHEM LPYMJ4270-51-66 21:31:0015.3[facility] HermannCHEM KOEQH6755-65-69 21:31:0025[facility] HermannCHEM ZWVSZ4915-24-04 21:31:007.9 [facility] HermannCHEM BMZRE8894-84-03 21:31:05881Pxuslqdf HermannCHEM PANEL 2016-05-25 21:31:004.3[facility] HermannCHEM TQYMA6783-79-23 21:31:13999Dgaqwtne HermannCHEM TJAMH6347-02-22 21:31:000.94[facility] HermannCHEM MITIQ2907-40-21 21:31:91714Aekwmqre HermannCHEM VKIEL0711-65-27 21:31:008[facility] VQXPQPHTPP7139-98-02 21:31:001.19[facility] LtnfamsTXFWCKVBZR4889-16-44 21:31:00 Test Item Value Reference Range Interpretation Comments PT (test code = PT) 15.4 s 12.0-14.7 [facility] IdlkrskYFFURFSHPR1539-64-73 21:31:00 Test Item Value Reference Range Interpretation Comments PTT (test code = PTT) 34.1 s 22.9-35.8 [facility] HermannPARATHYROID PHEVUZV0182-94-41 06:49:001.07[facility] PARATHYROID NHMRSXU1372-66-65 06:49:001.04[facility] HermannCARDIAC ENZYMES 2016-05-25 06:47:00<0.02[facility] HermannCARDIAC ICWWBOQ1134-85-85 06:47:0057 [facility] HermannCHEM UAZOC8287-61-24 06:47:001.1[facility] HermannCHEM PANEL 2016-05-25 06:47:000.4[facility] HermannCHEM BJUXO5667-25-34 06:47:000.6[facility] HermannCHEM ENFMN6234-16-97 06:47:000.2[facility] HermannCHEM ZGDCA6368-13-47 06:47:0013[facility] HermannCHEM UHMBE6611-49-61 06:47:05268Qnxxehkv HermannCHEM TBKKM5100-52-50 06:47:002.7[facility] HermannCHEM ZCDBK6649-52-76 06:47:005.7 [facility]annCHEM UEKEJ8679-07-41 06:47:003.0[facility] HermannCHEM PANEL 2016-05-25 06:47:0014[facility] HermannCHEM WHIWQ5331-80-56 06:47:003.2[facility] HermannCHEM USHRG7571-55-43 06:47:001.7[facility] 2016-05-25 02:09:00Positive 1(05/24/16 9:09 PM)[facility] 2016-05-25 02:09:00 Test Item Value Reference Range Interpretation Comments Max Amplitude Rapid (test code = Max 68 mm 52-71 Amplitude Rapid) [facility] HospitalTxwevznODATQNIZCJ5177-12-81 02:09:0010.4[facility] 2016-05-25 02:09:000.4MearriSt. Luke's Health – Memorial LufkinFyksmakGEMMXRLHDD6104-56-71 02:09:00 Test Item Value Reference Range Interpretation Comments ACT (TEG) Rapid (test code = ACT (TEG) 121 s 86-[address]) [facility] HospitalTuirezbBPULICCPLE7355-70-49 02:09:00 Test Item Value Reference Range Interpretation Comments Split Point Rapid (test code = Split 0.7 min Point Rapid) [facility] HospitalDikbazjGYEUJTSFGB7791-78-54 02:09:00 Test Item Value Reference Range Interpretation Comments R-time Rapid (test code = R-time 0.8 min 0.4-0.7 Rapid) [facility] HospitalVdzvdzvSNDCJYQYES5714-45-37 02:09:00 Test Item Value Reference Range Interpretation Comments K-time Rapid (test code = K-time 0.8 min 0.6-2.3 Rapid) [facility] HospitalYfrwylnKVVHKOAKWD5733-19-20 02:09:00 Test Item Value Reference Range Interpretation Comments Angle Rapid (test code = Angle 80 degrees 64-80 Rapid) [facility] HospitalMecfnvlMHYGSECDMO9134-65-44 02:09:001.7[facility] 2016-05-25 02:09:000.1[facility] FxnmfktXHTVNFPDVL2148-22-50 02:09:000.1[facility] CenterTiitqhbWPPDGRQWAA7169-71-15 02:09:00 Test Item Value Reference Range Interpretation Comments PTT (test code = PTT) 32.0 s 22.9-35.8 [facility]
[2021-02-04] MEDS ORDERED: NA CHLORIDE 0.9% 1,000 ML ONE ×2 (07:03→09:09)
[2021-02-04 07:32] LABS: Absolute Lymphocytes (CBC) 0.8 K/uL (0.7-4.9); Basophils % 0.6 % (0-1.3); Hematocrit 38.4 % (39.6-49.0); Lymphocytes % 11.1 % (15.3-44.8); MPV 8.4 fL (7.6-11.3)
[2021-02-04 07:37] LABS: Protime INR 1.29
[2021-02-04 07:50] LABS: Albumin 3.3 g/dL (3.4-5.0); Bilirubin Direct 0.2 mg/dL (0-0.2); Bilirubin Total 0.5 mg/dL (0.2-1.0); Magnesium 2.2 mg/dL (1.8-2.4); Potassium 3.5 mmol/L (3.5-5.1); Protein, Total 6.7 g/dL (6.4-8.2); Troponin (Emerg Dept Use Only) 0.03 ng/mL (0.0-0.045)
--- NOTE | 2021-02-04 08:41 | RAD REPORT ---
EXAM DESCRIPTION: CT - Head C Spine Cap W Con - 02/04/2021 7:54 am CLINICAL HISTORY: Trauma, head and neck injury. Chest, abdomen and pelvis pain. Trauma COMPARISON: Head C Spine Cap W Con dated 10/03/2020; Head Brain Wo Cont dated 10/02/2018; Abdomen P leann W Contrast dated 01/29/2021 TECHNIQUE: CT head without contrast. Mild diffuse emphysema is seen. CT cervical spine without contrast with coronal and sagittal reformatted images. CT chest, abdomen and pelvis with IV contrast (approximately 100 mL nonionic IV contrast) with farris l and sagittal reformatted images of the spine. All CT scans are performed using dose optimization technique as appropriate and may include automated exposure control or mA/KV adjustment according to patient size. FINDINGS: CT HEAD WITHOUT CONTRAST: No intracranial hemorrhage, hydrocephalus or extra-axial fluid collection. No areas of brain edema o r midline shift. Again noted is a gliosis in the right occipital lobe most compatible with old infarc t. Mild mucosal thickening of the maxillary antra seen. The paranasal sinuses and mastoids are otherwise clear. The calvarium is intact. CT CERVICAL SPINE WITHOUT CONTRAST: No fracture or subluxation. Extensive multilevel degenerative spondylosis is present. 4 mm degenerati ve retrolisthesis of C3 on 4 is noted. 3 mm degenerative anterolisthesis of C4 on 5. The prevertebral soft tissues are normal in thickness.The odontoid is normal lateral masses are symmetric. CT CHEST, ABDOMEN, PELVIS WITH CONTRAST: The lungs are clear.No pneumothorax or pericardial/pleural fluid. Descending thoracic aorta is aneury smally dilated measuring 6.5 cm in transverse dimension. Crescentic appearance to the descending thor acic aorta likely represents a thrombosed type B dissection. Evidence of abdominal aortic aneurysm re pair noted. Large coils are present in the left pelvis. Stenting is present in the right common iliac artery. No evidence of intra-abdominal visceral injury, free fluid or free air. No evidence of appendicitis. No fractures. Advanced lumbar degenerative changes are present. Marked left hip arthritic changes. IMPRESSION: There is a significant aneurysm of the descending aorta measuring up to 6.5 cm. 50% diony nal narrowing is present likely related to thrombosed dissection of the aneurysmal portion of the olegario cending thoracic aorta. No significant flow alteration is detected. No acute trauma related finding discerned.
--- NOTE | 2021-02-04 09:43 | RAD REPORT ---
EXAM DESCRIPTION: RAD - Chest Single View - 02/04/2021 7:09 am CLINICAL HISTORY: TRAUMA Chest pain. COMPARISON: Chest Single View dated 04/25/2020; Chest Single View dated 01/23/2019; Chest Single View dated 03/22/2018; Chest Single View dated 12/01/2017 FINDINGS: Portable technique limits examination quality. The lungs are mildly emphysematous but grossly clear. The heart is normal in size. No displaced fract ures. IMPRESSION: Mild COPD.
--- NOTE | 2021-02-04 10:08 | EDPHYS ---
Physician Documentation [facility] Name: Pineda Mckeon Age: 75 yrs Sex: Male : 1945 Arrival Date: 02/04/2021 Time: 06:17 Bed 4 Private MD: ED Physician Atif Torres HPI: 02/04 07:15 This 75 yrs old Male presents to ER via EMS with complaints of Fall. [facility] 07:15 Details of fall: The patient fell from an upright position, while walking, and struck a mh7 carpeted surface. Onset: The symptoms/episode began/occurred this morning, today. Associated injuries: The patient sustained injury to the head, contusion. Severity of symptoms: At their worst the symptoms were moderate, earlier today, in the emergency department the symptoms have improved, moderately. Reports fall getting out of bed. Possible LOC.. Historical: - Allergies: 06:29 No Known Allergies; jm8 - PMHx: 06:29 AAA; blood clot in right groin; Bypass Bilateral Legs; clotting disorder; COPD; CVA; jm8 Degenerative disc disease; Hypertension; Right Arm; TIA; - PSHx: 07:30 Right arm; Cholecystectomy; Hernia repair; ss - Immunization history:: Adult Immunizations up to date. - Social history:: Smoking status: Patient/guardian denies using tobacco, the patient reports quitting approximately 10 years ago. ROS: 07:15 Constitutional: Negative for fever, chills, and weight loss, Eyes: Negative for injury, mh7 pain, redness, and discharge, ENT: Negative for injury, pain, and discharge, Neck: Negative for injury, pain, and swelling, Cardiovascular: Negative for chest pain, palpitations, and edema, Respiratory: Negative for shortness of breath, cough, wheezing, and pleuritic chest pain, Abdomen/GI: Negative for abdominal pain, nausea, vomiting, diarrhea, and constipation, Back: Negative for injury and pain, : Negative for injury, bleeding, discharge, and swelling, MS/Extremity: Negative for injury and deformity, Skin: Negative for injury, rash, and discoloration, Psych: Negative for depression, anxiety, suicide ideation, homicidal ideation, and hallucinations, Allergy/Immunology: Negative for hives, rash, and allergies, Endocrine: Negative for neck swelling, polydipsia, polyuria, polyphagia, and marked weight changes, Hematologic/Lymphatic: Negative for swollen nodes, abnormal bleeding, and unusual bruising. Exam: 07:15 Head/Face: Normocephalic, atraumatic. Eyes: Pupils equal round and reactive to light, mh7 extra-ocular motions intact. Lids and lashes normal. Conjunctiva and sclera are non-icteric and not injected. Cornea within normal limits. Periorbital areas with no swelling, redness, or edema. 07:15 Neck: Trachea midline, no thyromegaly or masses palpated, and no cervical lymphadenopathy. Supple, full range of motion without nuchal rigidity, or vertebral point tenderness. No Meningismus. Chest/axilla: Normal chest wall appearance and motion. Nontender with no deformity. No lesions are appreciated. Cardiovascular: Regular rate and rhythm with a normal S1 and S2. No gallops, murmurs, or rubs. Normal PMI, no JVD. No pulse deficits. Respiratory: Lungs have equal breath sounds bilaterally, clear to auscultation and percussion. No rales, rhonchi or wheezes noted. No increased work of breathing, no retractions or nasal flaring. Abdomen/GI: Soft, non-tender, with normal bowel sounds. No distension or tympany. No guarding or rebound. No evidence of tenderness throughout. 07:15 Back: No spinal tenderness. No costovertebral tenderness. Full range of motion. Skin: Warm, dry with normal turgor. Normal color with no rashes, no lesions, and no evidence of cellulitis. MS/ Extremity: Pulses equal, no cyanosis. Neurovascular intact. Full, normal range of motion. Neuro: Awake and alert, GCS 15, oriented to person, place, time, and situation. Cranial nerves II-XII grossly intact. Motor strength 5/5 in all extremities. Sensory grossly intact. Cerebellar exam normal. Normal gait. Psych: Awake, alert, with orientation to person, place and time. Behavior, mood, and affect are within normal limits. 07:15 Constitutional: The patient appears in no acute distress, alert, awake, obviously ill. 07:15 Constitutional: The patient appears frail. 07:15 ENT: External ear(s): are unremarkable, Ear canal(s): are normal, TM's: are normal, hemotympanum, is not appreciated, Nose: is normal, Mouth: Oral mucosa: dry, Posterior pharynx: is normal, airway is patent, Voice: is normal. Vital Signs: 06:23 BP 72 / 51; Pulse 60; Resp 16; Temp 97.9; Pulse Ox 97% on R/A; Weight 58.97 kg; Height jm8 5 ft. 7 in. (170.18 cm); Pain 0/10; 06:56 BP 81 / 56; Pulse 60; Resp 16; Pulse Ox 96% on R/A; jm8 08:28 BP 101 / 52; Pulse 56; Resp 15; Pulse Ox 100% on R/A; hb 09:31 BP 116 / 61; Pulse 67; Resp 17; Pulse Ox 99% on R/A; hb 10:30 BP 108 / 61; Pulse 58; Resp 17; Pulse Ox 95% ; sv 11:13 BP 129 / 71; Pulse 66; Resp 18; Pulse Ox 96% ; sv 06:23 Body Mass Index 20.36 (58.97 kg, 170.18 cm) jm8 MDM: 07:19 Transition of care: After a detail discussion of the patient's case, care is [facility] transferred to Atif Torres MD. 07:28 Patient medically screened. rn 09:30 ED course: Pt with thrombosed Type B aortic dissection, off his warfarin, stable rn vitals, BP improving, patient clinically improving, no significant blood flow abnormality noted, will transfer to [place] for vascular consultation and further care as we do not have the specialist. . 10:03 Differential diagnosis: contusion, fracture, Aortic aneurysm, dissection, thrombosed rn dissection, dehydration. Data reviewed: vital signs, nurses notes, lab test result(s), EKG, radiologic studies, CT scan, and as a result, I will admit patient. Counseling: I had a detailed discussion with the patient and/or guardian regarding: the historical points, exam findings, and any diagnostic results supporting the discharge/admit diagnosis, lab results, radiology results, the need for further work-up and treatment in the hospital, the need to transfer to another facility, for higher level of care, [facility] does not immediately have the required specialist. Response to treatment: the patient's symptoms have mildly improved after treatment, and as a result, I will admit patient. 02/04 06:45 Order name: Basic Metabolic Panel mh02/04 06:45 Order name: CBC with Diff 02/04 06:45 Order name: LFT's 02/04 06:45 Order name: Magnesium; Complete Time: 08:35 02/04 06:45 Order name: NT PRO-BNP; Complete Time: 08:35 02/04 06:45 Order name: PT-INR; Complete Time: 08:35 02/04 06:45 Order name: Troponin (emerg Dept Use Only); Complete Time: 08:35 02/04 06:46 Order name: Basic Metabolic Panel; Complete Time: 08:35 EDMS 02/04 06:46 Order name: CBC with Automated Diff; Complete Time: 08:35 EDMS 02/04 06:46 Order name: Liver (Hepatic) Function; Complete Time: 08:35 EDMS 02/04 06:48 Order name: ETOH Level; Complete Time: 08:35 02/04 06:48 Order name: Acetaminophen; Complete Time: 08:35 02/04 06:48 Order name: Salicylate; Complete Time: 08:35 02/04 06:45 Order name: XRAY Chest (1 view); Complete Time: 09:45 02/04 06:45 Order name: EKG; Complete Time: 06:46 02/04 06:45 Order name: Cardiac monitoring; Complete Time: 06:46 02/04 06:45 Order name: EKG - Nurse/Tech; Complete Time: 06:47 02/04 06:45 Order name: IV Saline Lock; Complete Time: 06:46 02/04 06:45 Order name: Labs collected and sent; Complete Time: 06:46 02/04 06:45 Order name: O2 Per Protocol; Complete Time: 06:46 02/04 06:45 Order name: O2 Sat Monitoring; Complete Time: 06:47 02/04 06:58 Order name: CT Traumagram (Head C Spine CAP W Con); Complete Time: 09:19 02/04 09:50 Order name: COVID-19 : Document "Date of Symptom Onset" if Symptomatic. bd Administered Medications: 06:44 Drug: NS 0.9% 1000 ml Route: IV; Rate: 1 bolus; Site: left forearm; jm8 08:40 Drug: NS 0.9% 1000 ml Route: IV; Rate: 1000 ml; Site: right antecubital; hb Disposition: 02/04/21 10:07 Transfer ordered to [facility]. Diagnosis are Aortic aneurysm and dissection - Thrombosed, Dehydration, Hypotension, unspecified. - Reason for transfer: Higher level of care. - Accepting physician is Dr. Verdin. - Condition is Stable. - Problem is new. - Symptoms have improved. Signatures: Dispatcher [employer] EDMS Atif Torres MD MD rn Smirch, Shelby, RN RN Elizabeth Latham RN RN Dwaine Hylton MD MD [facility] Alfie Vidales RN RN jm8 Corrections: (The following items were deleted from the chart) 10:34 09:50 CORONAVIRUS ordered. EDVA EDVA 11:25 10:07 02/04/2021 10:07 Transfer ordered to [facility]. ss Diagnosis is Aortic aneurysm and dissection - Thrombosed; Dehydration; Hypotension, unspecified. Reason for transfer: Higher level of care. Accepting physician is Dr. Verdin. Condition is Stable. Problem is new. Symptoms have improved. rn
--- NOTE | 2021-02-04 10:08 | ER ---
Nurse's Notes [facility] Name: Pineda Mckeon Age: 75 yrs Sex: Male : 1945 Arrival Date: 02/04/2021 Time: 06:17 Bed 4 Private MD: Diagnosis: Aortic aneurysm and dissection-Thrombosed;Dehydration;Hypotension, unspecified Presentation: 02/04 06:23 Chief complaint: EMS states: they were called out for fall. Patient fell while getting 8 out of bed. Patient unable to recall events prior to fall. Upon arrival patient is alert ad oriented. Systolic BP in the 60s for EMS. Seen at this hospital earlier tonight for abdominal pain. Coronavirus screen: Client denies travel out of the [place] in the last 14 days. Ebola Screen: Patient negative for fever greater than or equal to 101.5 degrees Fahrenheit, and additional compatible Ebola Virus Disease symptoms Patient denies exposure to infectious person. Patient denies travel to an Ebola-affected area in the 21 days before illness onset. Initial Sepsis Screen: Does the patient meet any 2 criteria? No. Patient's initial sepsis screen is negative. Does the patient have a suspected source of infection? No. Patient's initial sepsis screen is negative. Risk Assessment: Do you want to hurt yourself or someone else? Patient reports no desire to harm self or others. Onset of symptoms was February 04, 2021 at 05:00. 06:23 Method Of Arrival: EMS: [place] [id number] 06:23 Acuity: NORY 3 jm8 Triage Assessment: 06:31 General: Appears in no apparent distress. comfortable, Behavior is calm, cooperative, jm8 appropriate for age. Pain: Denies pain. EENT: No deficits noted. No signs and/or symptoms were reported regarding the EENT system. Neuro: Level of Consciousness is awake, alert, obeys commands, Oriented to person, place, time, Reports not being able to remember the events leading to fall. Cardiovascular: No deficits noted. Respiratory: No deficits noted. Airway is patent Trachea midline Respiratory effort is even, unlabored, Respiratory pattern is regular, symmetrical. GI: No deficits noted. No signs and/or symptoms were reported involving the gastrointestinal system. : No deficits noted. No signs and/or symptoms were reported regarding the genitourinary system. Derm: No deficits noted. No signs and/or symptoms reported regarding the dermatologic system. Musculoskeletal: Reports fall prior to arrival. Patient complains of no pain a this time. Historical: - Allergies: 06:29 No Known Allergies; jm8 - PMHx: 06:29 AAA; blood clot in right groin; Bypass Bilateral Legs; clotting disorder; COPD; CVA; jm8 Degenerative disc disease; Hypertension; Right Arm; TIA; - PSHx: 07:30 Right arm; Cholecystectomy; Hernia repair; ss - Immunization history:: Adult Immunizations up to date. - Social history:: Smoking status: Patient/guardian denies using tobacco, the patient reports quitting approximately 10 years ago. Screenin:30 Abuse screen: Denies threats or abuse. Denies injuries from another. Nutritional jm8 screening: No deficits noted. Tuberculosis screening: No symptoms or risk factors identified. Fall Risk Fall in past 12 months (25 points). IV access (20 points). Assessment: 07:15 General: Appears in no apparent distress. ill, Behavior is calm, cooperative. Pain: hb Denies pain. Neuro: Level of Consciousness is obeys commands, lethargic. Cardiovascular: Patient's skin is warm and dry. Respiratory: Respiratory effort is even, unlabored, Respiratory pattern is regular, symmetrical. GI: No signs and/or symptoms were reported involving the gastrointestinal system. : No signs and/or symptoms were reported regarding the genitourinary system. EENT: No signs and/or symptoms were reported regarding the EENT system. Derm: Skin is pink, warm \T\ dry. Musculoskeletal: No signs and/or symptoms reported regarding the musculoskeletal system. 08:30 Reassessment: Patient appears in no apparent distress at this time. No changes from hb previously documented assessment. Patient and/or family updated on plan of care and expected duration. Pain level reassessed. 09:30 Reassessment: Patient appears in no apparent distress at this time. No changes from previously documented assessment. Patient and/or family updated on plan of care and expected duration. Pain level reassessed. Vital Signs: 06:23 BP 72 / 51; Pulse 60; Resp 16; Temp 97.9; Pulse Ox 97% on R/A; Weight 58.97 kg; Height jm8 5 ft. 7 in. (170.18 cm); Pain 0/10; 06:56 BP 81 / 56; Pulse 60; Resp 16; Pulse Ox 96% on R/A; jm8 08:28 BP 101 / 52; Pulse 56; Resp 15; Pulse Ox 100% on R/A; hb 09:31 BP 116 / 61; Pulse 67; Resp 17; Pulse Ox 99% on R/A; hb 10:30 BP 108 / 61; Pulse 58; Resp 17; Pulse Ox 95% ; sv 11:13 BP 129 / 71; Pulse 66; Resp 18; Pulse Ox 96% ; sv 06:23 Body Mass Index 20.36 (58.97 kg, 170.18 cm) [facility] ED Course: 06:17 Patient arrived in ED. mw2 06:[address] [facility] 06:28 EKG done, by ED staff, reviewed by Dwaine Hylton MD. Inserted saline lock: 22 gauge in mt left forearm, using aseptic technique. by CHRYSTAL Rosario. 06:29 Dwaine Hylton MD is Attending Physician. [facility] 06:30 Arm band placed on right wrist. [facility] 06:31 Patient has correct armband on for positive identification. Bed in low position. Call [facility] light in reach. Side rails up X2. 07:09 XRAY Chest (1 view) In Process Unspecified. EDMS 07:22 Attending Physician role handed off by Dwaine Hylton MD rn 07:22 Atif Torres MD is Attending Physician. rn 07:54 CT Traumagram (Head C Spine CAP W Con) In Process Unspecified. EDMS 08:27 Elizabeth Latham, RN is Primary Nurse. hb 11:19 No provider procedures requiring assistance completed. Patient transferred, IV remains sv in place. intact. Administered Medications: 06:44 Drug: NS 0.9% 1000 ml Route: IV; Rate: 1 bolus; Site: left forearm; jm8 08:40 Drug: NS 0.9% 1000 ml Route: IV; Rate: 1000 ml; Site: right antecubital; hb Outcome: 10:07 ER care complete, transfer ordered by . rn 11:18 Transferred by ground EMS to [facility], Transfer form completed. sv X-rays sent w/ patient. Note: Report given to [facility]. 11:18 Condition: stable 11:18 Instructed on the need for transfer. 11:25 Patient left the ED. ss Signatures: Dispatcher [employer] EDSophia Brady RN RN Atif Torres MD MD rn Smirch, Shelby, RN RN ss Baxter, Heather, RN RN hb Thompson, Moriah dc Jaiden, [facility] Dwaine Hylton MD MD [facility] Alfie Vidales RN RN jm8 Corrections: (The following items were deleted from the chart) 06:31 06:30 Fall Risk None identified. 8 jm8 06:31 06:30 Fall Risk Fall in past 12 months (25 points). jmRommel jm8
[2021-02-04 12:00] VITALS: TEMP 97.9
[2021-02-04 12:07] VITALS: BP 129/71; O2SAT 96
--- NOTE | 2021-02-04 15:49 | EKG ---
Test Date: 2021-02-03 Test Time: 23:33:36 [employer] Business Developer: ANURADHA MEASUREMENT RESULTS: Intervals: Rate: 71 CT: 122 QRSD: 88 QT: 412 QTc: 447 [place]: P: 62 CT: 122 QRS: 2 T: 72 INTERPRETIVE STATEMENTS: Sinus rhythm with premature atrial complexes Anterior infarct, age undetermined Abnormal ECG Compared to ECG 02/03/2021 23:33:11 Atrial premature complex(es) now present Myocardial infarct finding still present Electronically Signed On 02-04-21 15:47:01 CDT by Conrad Scherer
--- NOTE | 2021-02-05 12:59 | EKG ---
Test Date: 2021-02-04 Test Time: 06:24:42 Clinical Psychologist Licensed: MAKENZIE MEASUREMENT RESULTS: Intervals: Rate: 59 GA: 158 QRSD: 96 QT: 448 QTc: 443 [place]: P: 74 GA: 158 QRS: 40 T: 77 INTERPRETIVE STATEMENTS: Sinus bradycardia Otherwise normal ECG Compared to ECG 02/03/2021 23:33:36 Sinus rhythm no longer present Atrial premature complex(es) no longer present Myocardial infarct finding no longer present Electronically Signed On 02-05-21 12:54:12 CDT by Conrad Scherer
== END 2021-02-04 11:25 | disposition short-term general hospital (02) ==
LOC: ER 06:15
DX: I71.02 Dissection of abdominal aorta (principal); E86.0 Dehydration; W06.XXXA Fall from bed, initial encounter; I10 Essential (primary) hypertension; Z86.73 Personal history of transient ischemic attack (TIA), and cerebral infarction without residual deficits; Z20.822 Contact with and (suspected) exposure to COVID-19
CPT/HCPCS: 93005 ×2; 85025; 80048; 36415; 80320; 83735; 80329 ×2; 85610; 80076; 84484; 83880; 70450; 72125; 71260; 74177; 71045; U0003; Q9967; J7030 ×2; 99285

== ENCOUNTER 2021-02-09 13:13 | Emergency (ER) | payer OTHER ==
--- OUTSIDE RECORDS SUMMARY | 2021-02-09 13:26 | XMS REPORT | Continuity of Care Document ---
:[address] [facility] t Address [address] [place] [address] Care Team Providers Name Role Phone Jono PAK, P Primary Care Physician Unavailable Tayler Hwang MD Attending Clinician TAYLER HWANG Attending Clinician Unavailable Modesto Elliott Attending Clinician ANSON Attending Clinician Unavailable Maritza TIM Attending Clinician Unavailable MELI HDZ Attending Clinician Unavailable Franklin Prather Attending Clinician TAYLER HWANG Admitting Clinician Unavailable ANSON Admitting Clinician Unavailable Maritza TIM Admitting Clinician Unavailable MELI HDZ Admitting Clinician Unavailable Ivan Salguero Admitting Clinician Payers Payer Name Policy Type Policy Effective Date Expiration Date Sour ce Number MEDICAREMEDICARE A [id number] 2004 AVTAR Griffiths [id number] 2003- 00:00[facility] Condition Condition Condition Status Onset Resolution Last Treating Co mments Source Name Details Category Date Date Treatment Clinician Date Thoracic Thoracic Disease Active AVTAR pérez aortic aortic 6 [place] - aneurysm aneurysm 00:00: Medica [address] 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 6-28 [facility] - of of 00:00: Medical thoracic thoracic 00 Center aorta, aorta, Dalton Osei type B type B PAD PAD Disease Active 2018-08 [place] (periphera (periphera 0-30 Me thodi l artery l artery 00:00: st disease) disease) 00 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 [place] on deficiency deficiency 0-30 Me thodi 00:00: st 00 PAD PAD Disease Active 2018-08 [facility] (periphera (periphera 0-18 Assessmen Methodi l [...] graft explantat ion VTE VTE Disease Active [facility] (venous (venous 7-17 Assessmen Metho di thromboemb thromboemb 00:00: t & Plan: st olism) olism) 00 Formattin g of this note might be different from the original. Plan: Bilateral LE vein mapping ZHANE (acute ZHANE (acute Disease Active [facility] kidney kidney 828 [facility] - injury) injury) 00:00: Medical 00 [...] BILLING 0-15 12:09:00 l 5060 20:28: Jevon SARAH 00 BILLING 5060 Active 05/24/2016 [facility] SDH Diagnosis Active 2015-082016-06-05 Mem oria 0-15 23:20:00 l SDH 00:00: [place] 00 Active 05/24/2016 [facility] Severe Severe Disease Active [facility] aortic aortic [facility] - stenosis stenosis [facility] Anemia Anemia Disease Active [facility] HTN HTN Disease Active [facility] St (hypertens (hypertens Karine kes - ion) ion) [facility] Hyperlipid Hyperlipid Disease Active [facility] emia emia [facility] COPD COPD Disease Active [facility] St (chronic (chronic [facility] - obstructiv obstructiv Me dical e e Center pulmonary pulmonary disease) disease) Seizures Seizures Disease Active [facility] S t [facility] Peripheral Peripheral Disease Active [facility] vascular vascular [facility] - disease disease [facility] Blood Blood Disease Active Overview: 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 St aortic aortic [facility] - aneurysm aneurysm Medica (AAA) (AAA) Center DVT (deep DVT (deep Disease Active [facility] venous venous [facility] - thrombosis thrombosis Me dical ) ) Center Essential Problem Active 2020-12-01 Me moria tremor 01:14:44 l (disorder) [place] Essential tremor (disorder) Active Problem 12/01/2020 [facility] Subdural Problem Active 2020-12-01 Mem oria hematoma 01:14:44 l (disorder) Subdural He rmann hematoma (disorder) Active Problem 12/01/2020 [facility] Coxitis Problem Active 2020-12-01 Micah taylor (disorder) 01:14:44 l Coxitis Jevon (disorder) Active Problem 12/01/2020 [facility] Lumbar Problem Active 2020-12-01 Memor ia radiculopa 01:14:44 l thy Lumbar Jevon (disorder) radiculopa thy (disorder) Active Problem 12/01/2020 [facility] NONTRAUMAT Diagnosis Active 2016-06-05 Memoria IC 23:20:00 l SUBDURAL Jevon HEMORRHAGE NONTRAUMAT , UNSPEC IC SUBDURAL HEMORRHAGE , UNSPEC Active [facility] Allergies, Adverse Reactions, Alerts Allergy Allergy Status Severity Reaction(s) Onset Inactive Treating Comm ents Source Name Type Date Date Clinician No Known No Known Active Memori a Medicati Medicati l on on [place] Allergie Allergie s s Social History Social Habit Start Date Stop Date Quantity Comments Source History of tobacco Current smoker [facility] use Sex Assigned At [facility] Exposure to Not sure [facility] - SARS-CoV-2 (event) Medica [facility] Alcohol Comment 2019-05-27 2019-05-27 quit ~2004 [facility] ethodist 00:00:00 00:00:00 Cigarette 2018-03-23 2018-03-[address] [facility] - pack-years 00:00:00 00:00:00 [facility] Tobacco use and 2018-03-23 2018-03-[address] [facility] - exposure 00:00:00 00:00:00 [facility] Alcohol intake 2018-03-23 2018-03-[address] [facility] St Hasmukh es - 00:00:00 00:00:00 non-drinker of Medical Ce nter alcohol (finding) Cigarettes smoked 2018-03-23 2018-03-[address] [facility] - current (pack per 00:00:00 00:00:00 [facility] Center day) - Reported Tobacco Comment 2017-12-09 2017-12-09 quit [address] [facility] - 00:00:00 00:00:00 [facility] Smoking Status Start Date Stop Date Source Social History 2020-11-01 21:07:23 2020-11-01 21:07:23 [facility] Medications Ordered Filled Start Stop Current Ordering Indication Dosage Frequency Signature Comments Components Source Medication Medication Date Date Medication? Clinician (SIG) Name Name amLODIPine 2020- Yes 10mg QD Take [address] (NORVASC) 7- 10-01 tablet (10 Hasmukh es - 10 MG 00:00: 23:59 mg total) Medica l tablet 00 :00 by mouth Center daily for 90 days. albuterol Yes 1{puff} Inhale [address] HFA 7-02 puff by [facility] - (VENTOLIN 14:28: mouth via Med ical HFA) 90 46 inhaler Center mcg/actuati every 6 on inhaler (six) hours as needed for Wheezing. fluticasone Yes 1{puff} QD Inhale [address] -vilanterol 7- puff by [facility] - (BREO 14:28: mouth via Medical ELLIPTA) 46 inhaler Center 200-25 daily. mcg/dose DsDv tiZANidine Yes 4mg Take [address] (ZANAFLEX) 7-02 by mouth 3 Hasmu[place] es - 4 MG tablet 14:28: (three) Med ical 46 times Center daily as needed. primidone Yes 250mg QD Take [address] (MYSOLINE) 7-02 mg by [facility] - 250 MG 14:28: mouth Medical tablet 46 daily. [place] topiramate Yes 100mg Q.5D Take [address] (TOPAMAX) 7-02 mg by [facility] - 100 MG 14:28: mouth 2 Medical tablet 46 (two) Center times daily. warfarin Yes 9mg QD Take [address] (COUMADIN) 7-02 by mouth [facility] - 10 MG 14:28: daily. Medical tablet 46 [place] aspirin 81 Yes [address] MG chewable 02-08 Orally [facility] - tablet 14:28: Once a day Medic al 46 Center omeprazole Yes 1{capsu [address] (PriLOSEC - le} [facility] - OTC) 20 MG 14:28: Medical tablet 46 [place] CHOLECALCIF Yes Take by [facility] ROC, 7-02 mouth. [facility] - VITAMIN D3, 14:28: Medica l ORAL 46 [place] cloNIDine Yes [address] HCL 7-02 at bedtime [facility]ukes - (CATAPRES) 14:28: Medical 0.1 MG 46 Center tablet ferrous Yes TAKE ONE [facility] sulfate 325 02-08 (1) [facility] - (65 FE) MG 14:28: TABLET(S) Me dical tablet 46 BY MOUTH Center TWICE A DAY WITH MEALS. amitriptyli Yes [address] ne (ELAVIL) 02-08 [facility] - 75 MG 14:28: Medical tablet 46 Center atorvastati Yes TAKE ONE [facility] n (LIPITOR) 02-08 (1) [facility] - 40 MG 14:28: TABLET(S) Medical tablet 46 BY MOUTH Center NIGHTLY. lisinopril 2020- No 40mg QD Take [address] (PRINIVIL,Z 02-08 by mouth Hasmukh es - ESTRIL) 40 11:46: 00:00 daily. Medi skinny MG tablet 36 :00 Center amLODIPine 2020- No TAKE ONE [facility] (NORVASC) 02-08 (1) [facility] - 2.5 MG 11:46: 00:00 TABLET(S) Medic al tablet 36 :00 BY MOUTH Center TWICE A DAY. carvediloL 2020- Yes 6.25mg Q.5D Take [address] (COREG) 02-0830 tablet [facility] - 6.25 MG 00:00: 23:59 (6.25 mg Medic al tablet 00 :00 total) by Center mouth 2 (two) times daily for 90 days. enoxaparin 2020- Yes 60mg Inject 0.[address] (LOVENOX) 02-0809 mLs (60 mg Hasmukh es - 60 mg/0.6 00:00: 23:59 total) Medic al mL Syrg 00 :00 subcutaneo Center usly every 12 (twelve) hours for 7 days. omeprazole 2020- No 20mg QD Take [address] (PRILOSEC) 02-04 by mouth Luke s - 20 MG 15:12: 00:00 daily. Medical capsule 53 :00 Center cholecalcif 2020- No 800U QD Take [address] roc 02-04 Units by [facility] - (VITAMIN 15:12: 00:00 mouth Medical D3) 400 53 :00 daily. Center unit Tab tablet atorvastati 2020- No 10mg QD Take [address] [facility] n (LIPITOR) 02-04 by mouth Hasmukh es - 10 MG 15:12: 00:00 daily. Medical tablet 53 :00 Center amitriptyli 2020- No 50mg QD Take [address] ne (ELAVIL) 02-04 by mouth Hasmukh es - 50 MG 15:12: 00:00 nightly. Medical tablet 53 :00 Center dicyclomine Yes TAKE ONE [facility] (BENTYL) 20 6-23 (1) [facility] - mg tablet 00:00: TABLET(S) Med ical 00 BY MOUTH Center EVERY SIX HOURS NEEDED. ondansetron Yes TAKE ONE [facility] (ZOFRAN) 4 6-23 (1) [facility] - MG tablet 00:00: TABLET(S) Med ical 00 BY MOUTH Center EVERY SIX HOURS NEEDED. gabapentin Yes 300 mg = 1 M emoria 300 MG Oral 3-25 cap, PO, l Capsule 21:18: BID, # 60 [place] nn 00 cap, 5 Refill(s), Pharmacy: [facility], 65.455, kg, 11/01/20 16:06:00 CDT, Weight primidone Yes See Memoria 250 mg oral 3-25 Instructio l tablet 21:18: ns, TAKE [place] 00 ONE (1) TABLET(S) BY MOUTH ONCE A DAY., # 30 ea, 5 Refill(s), Pharmacy: [facility], 65.455, kg, 11/01/20 16:06:00 CDT, Weight topiramate Yes = 1 tab, Mem oria 100 mg oral 3-25 PO, BID, # l tablet 21:18: 60 ea, 5 Jevon 00 Refill(s), Pharmacy: [facility], 65.455, kg, 11/01/20 16:06:00 CDT, Weight gabapentin- 2020- No 300mg [address] lidocaine -04-30 [facility] - 300 mg- 5 % 00:00: 23:59 Medic al Kit 00 :00 [place] gabapentin Yes 300 mg = 1 M emoria 300 MG Oral 5-07 cap, PO, l Capsule 15:51: BID, # 60 [place] nn 00 cap, 5 Refill(s), Pharmacy: [facility] [place] gabapentin Yes See Memoria 300 MG Oral 4-03 Instructio l Capsule 14:22: ns, # 90 [place] 27 ea, Refill(s) 1, TAKE ONE (1) CAPSULE(S) BY MOUTH AT BEDTIME., Pharmacy: [facility] [place] CHOLECALCIF 2018-08 Yes QD Take by Rodolfo [...] Jevon 53 30 ea, Refill(s) 5, Pharmacy: [facility] gabapentin Yes 300 mg = 1 M emoria 300 MG Oral 1-08 cap, PO, l Capsule 23:41: Bedtime, # Herm francisco 00 30 cap, 3 Refill(s), Pharmacy: [facility] amitriptyli Yes 75 mg = 1 [...] tab, [place] 26 9 Refill(s), Pharmacy: [facility] topiramate Yes 100 mg = 1 M emoria 100 mg oral 1-04 tab, PO, l tablet 22:35: BID, # 60 [place] 00 tab, 9 Refill(s), Pharmacy: [facility] honey 100 % Yes 1{appli QD Apply [address] Pste 8-21 cation} applicatio [facility] - 00:00: n Medical 00 topically Center daily. tamsulosin Yes .4mg QD Take 1 [facility] (FLOMAX) 6-29 capsule [facility] - 0.4 mg Cp24 00:00: (0.4 mg Med ical 24 hr 00 total) by Center capsule mouth daily. betamethaso 2020- No Apply 1-[address] ne, 5-15 06-30 grams to [facility]ukes - augmented, 00:00: 00:00 the Medica l (DIPROLENE) 00 :00 affected Cent er 0.05 % area twice cream daily or as directed. Max 8g/day. HYDROcodone Yes [facility] -acetaminop 5-09 [facility] - hen (NORCO 00:00: Medical 10-325) 00 Center 10-325 mg per tablet fentaNYL No [facility] (DURAGESIC) 4-24 07-02 [facility] - 100 mcg/hr 00:00: 00:00 Medica l patch 00 :00 Center primidone Yes 250mg QD Take 250 [...] 3 tab, PO, l Oral Tablet 14:27: [id number], # Jevon 00 90 tab, 0 Refill(s) Docusate 2015-08 Yes 100 mg = 1 Mem oria Sodium 100 0-21 cap, PO, l MG Oral 14:27: Q12H, # 20 Herm francisco Capsule 00 cap, 0 Refill(s) phenol 2015-08 No Notes: Memoria 0-21 Chlorasept l 03:35: ic [place] 00 (Same as: Chlorasept ic, Sore Throat [place]) WASTE: F/P - Black; E - Municipal Trash Bin Coumadin 2016-1 No 5 mg, 1 Memori a 0-21 tab, l 02:30: Route: PO, [place] 00 Drug form: TAB, ONCE, Dosing Weight [...] a 0-20 With food. 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 (Same as: Miralax) remove 2015-08 No Notes: Memoria patch 0-18 Remove old l 14:00: patch [place] 00 before applicatio n of new patch. WASTE: F/P - P Waste Black; E - P Waste Black Keppra 2015-08 No Notes: Memoria 0-18 Same as l 12:25: Keppra Jevon 00 Mix with 100 mL NS, LR or D5W MEDICATION WASTE Product Size: 500 mg Product Wasted: ___ mg Keppra 2015-08 No Notes: Memoria 0-18 Same as l 09:00: Keppra [place] 00 Mix with 100 mL NS, LR or D5W MEDICATION WASTE Product Size: 500 mg Product Wasted: ___ mg Hydralazine 2015-08 No Notes: Micah taylor 0-18 (Same as: l 08:23: Apresoline [place] ) Push over 5 minutes heparin 2015-08 No Notes: Memoria 0-18 porcine l 05:00: heparin Jevon 00 Fentanyl 2015-08 No Notes: Memoria 0-18 (Same as: l 04:47: Sublimaze) Jevon 00 Preservat emanuel free. Lisinopril 2015-08 No [...] l / 21:26: Duoneb) Jevon Ipratropium 00 [place] 0.167 MG/ML Inhalant Solution [DuoNeb] mirtazapine 2015-08 Yes 7.5 mg = 1 Memoria 7.5 mg oral 0-17 tab, PO, l tablet 19:52: Bedtime, # [place] nn 00 30 tab, 1 Refill(s) Eszopiclone 2015-08 Yes 1 mg = 1 Me moria 1 MG Oral 0-17 tab, PO, l Tablet 19:52: Bedtime, [place] [Lunesta] 00 PRN for insomnia, # 30 tab, 0 Refill(s) Trazodone 2015-08 No 50 mg = 1 Mem oria Hydrochlori 0-17 tab, PO, l de 50 MG 19:52: TID, # 90 Herm francisco Oral Tablet 00 tab, 0 Refill(s) Acetaminoph 2015-08 Yes 1 tab, PO, Memoria en 325 MG / 0-17 TID, PRN l Hydrocodone 19:52: Pain, # 60 Jevon Bitartrate 00 tab, 0 10 MG Oral Refill(s) Tablet [[place] 10/325] lisinopril 2015-08 Yes 40 mg = 1 Me moria 40 mg oral 0-17 tab, PO, l tablet 19:52: Daily, 0 Jevon 00 Refill(s) 12 HR 2015-08 Yes 0.1 mg = 1 Memori a Clonidine 0-17 tab, PO, l Hydrochlori 19:52: Bedtime, # [place] de 0.1 MG 00 30 tab, 0 Extended Refill(s) Release Tablet 72 HR 2015-08 Yes 1 patch, Memoria Fentanyl 0-17 TOP, Q48H, l 0.1 MG/HR 19:52: # 15 [place] Transdermal 00 patch, 0 Patch Refill(s) [Duragesic] [...] 0-17 INHALER, l 0.09 19:52: Q6H, PRN [place] MG/ACTUAT 00 for Metered wheezing, Dose # 8.5 gm, Inhaler 0 [ProAir Refill(s) HFA] Keppra 2015-08 No Notes: Memoria 0-17 Same as l 17:59: Keppra [place] 00 Mix with 100 mL NS, LR [...] mg, Memoria 0-17 Route: l 06:28: IVPB, [place] 00 Q24H, Dosing Weight 76.36, kg, Priority: STAT, Start date: 05/26/16 1:28:00 CDT, Duration: 30 day, Stop date: 06/24/16 1:28:00 CLERK STENOGRAPHER sodium 2015-08 No 1,000 mL, Memori a chloride 0-17 Rate: 50 l 0.9% 1000 02:30: ml/hr, [place] ml INJ 00 Infuse 1,000 mL over: 20 hr, Route: IV, Dosing Weight 76.36 kg, Total Volume: 1,000, Start date: 05/25/16 21:30:00 CDT, Duration: 30 day, Stop date: 06/24/16 21:29:00 CLERK STENOGRAPHER Acetaminoph 2015-08 No Notes: Micah taylor en 325 MG / 0-17 (Same as: l Hydrocodone 01:00: [place] nn Bitartrate 00 325/5) Do 5 MG Oral not exceed Tablet 4gm/day of [[place] acetaminop 5/325] hen. Tylenol 2015-08 No Notes: Do Memor ia 0-17 not exceed l 00:38: 4 gm/day. [place] (Same as: Tylenol) Albuterol 2015-08 No Notes: SEE Me moria 0.83 MG/ML 0-16 RT l Inhalant 21:04: DOCUMENTAT Her mackenzie Solution 00 ION (Same as: Proventil) Ancef + 2015-08 No Notes: Memoria sodium 0-16 (Same As: l chloride 21:00: Ancef, Jevon 0.9% INJ 00 Kefzol) 100 mL MEDICATION WASTE Product Size: 1000 mg Product Wasted: ___ mg Ondansetron 2015-08 No Notes: Micah taylor 0-16 (Same as: l 20:57: Zofran) Jevon 00 MEDICATION WASTE Product Size: [...] 0-16 Rate: 125 l 0.154 20:57: ml/hr, [place] MEQ/ML 00 Infuse Injectable over: 8 Solution hr, Route: IV, Dosing Weight 76.36 kg, Total Volume: 1,000, Start date: 05/25/16 15:57:00 CDT, Duration: 30 day, Stop date: 06/24/16 15:56:00 CLERK STENOGRAPHER Ancef 2015-08 No 2 gm, Memoria 0-16 Route: l 19:15: IVPB, [place] 00 ONCE, Dosing Weight 76.36, kg, Start date: 05/25/16 14:15:00 CDT, Duration: 1 doses or times, Stop date: 05/25/16 14:15:00 CDT Streptococc 2015-08 No Notes: Micah taylor us 0-16 Lightly l pneumoniae 14:00: roll vial He rmann serotype 1 00 (DO NOT capsular SHAKE) antigen before diphtheria administra [id number] tion. protein (Same as: conjugate Prevnar vaccine / 13) Streptococc us pneumoniae serotype 14 capsular antigen diphtheria [id number] protein conjugate vaccine / Streptococc us pneumoniae serotype 18C capsular antigen d Vitamin K1 2015-08 No Notes: Memor ia + sodium 0-16 (Same as: l chloride 14:00: Aqua-Mephy Her mackenzie 0.9% INJ 50 00 ton, mL Vitamin K) MEDICATION WASTE Product Size: 10 mg Product Wasted: ___ mg Saline 2015-08 No Notes: Memoria Flush 0.9% 0-16 (Same as: l 14:00: BD [place] 00 Posiflush) Levetiracet 2015-08 No Notes: Micah taylor am 0-16 (Same l 14:00: as:Keppra) [place] 00 Docusate 2015-08 No Notes: Memoria 0-16 (Same as: l 14:00: Colace) [place] 00 (Do Not Crush) sennosides, 2015-08 No Notes: Micah taylor RETIREMENT 0-16 (Same as: l 14:00: Senokot) Jevon 00 Flomax 2015-08 No Notes: Memoria 0-16 (Same As: l 11:11: Flomax) Jevon 00 "Do Not Crush" Dexamethaso 2015-08 No Notes: Micah taylor ne 0-16 Concentrat l 10:39: ion: [place] 00 4mg/ml Mannitol 2015-08 No Notes: Memoria 0-16 (Same as: l 10:16: Osmitrol) [place] 00 Infuse through 5 micron or smaller [...] 04:11: Mag-Ox Jevon 00 400) Magnesium oxide 283yg=369k g elemental magnesium Dose=____m g magnesium oxide (___mg elemental magnesium) Magnesium 2015-08 No Notes: Memori a Sulfate 0-16 WASTE: F/P l 04:11: - Sink; E Jevon 00 - Municipal Trash Bin Calcium 2015-08 No Notes: Memoria Carbonate 0-16 (Same As: l 500 MG 04:11: Tums) [place] Chewable 00 Calcium Tablet Carbonate 500 mg = 200 mg elemental calcium Dose = mg calcium carbonate ( mg elemental calcium) Calcium 2015-08 No Notes: Memoria Gluconate 0-16 WASTE: F/P l 04:11: - Sink; E Jevon 00 - Municipal Trash Bin potassium 2015-08 No Notes: Memori a phosphate-s 0-16 (Same as: l odium 04:11: Phos-NaK) [place] phosphate 00 Each 1.5 250 mg-280 gm [...] 0-16 15 mL, l sodium 04:11: Route: [place] chloride 00 IVPB, PRN, 0.9% INJ Dosing 250 mL Weight 76.364, kg, PRN Abnormal Lab Result, Start date: 05/24/16 23:11:00 CDT, Duration: 30 day, Stop date: 06/23/16 22:10:00 CLERK STENOGRAPHER, FOR ICU USE ONLY potassium 2015-08 No Notes: Memori a chloride 0-16 (Same as: l 04:11: KCL) [place] 00 Infuse over 2 hours. iodixanol 2015-08 No 60 mL, Memori a 0-16 Route: l 03:50: IVP, Drug [place] 00 Form: SOLN, Dosing Weight 76.364, kg, [...] Syringe 0-16 12.5 mL, l 03:17: Route: IVP, Drug Form: INJ, Dosing Weight 76.364, kg, PRN, PRN Abnormal Lab Result, Start date: 05/24/16 22:17:00 CDT, Duration: 30 day, Stop date: 06/23/16 21:16:00 CLERK STENOGRAPHER Saline 2015-08 No Notes: Memoria Flush 0.9% 0-16 (Same as: l 03:17: BD Jevon 00 Posiflush) Bisacodyl 2015-08 No Notes: Memori a 0-16 (Same As: l 03:17: Dulcolax, [place]isco-Lax) Ondansetron 2015-08 No Notes: Micah taylor 0-16 (Same as: l 03:17: Zofran) MEDICATION WASTE Product Size: 4 mg Product Wasted: _0__ mg Acetaminoph 2015-08 No Notes: Do M emoria en 325 MG / 0-16 not exceed l Hydrocodone 03:17: 4gm/day of [place] Bitartrate 00 acetaminop 10 MG Oral hen. Tablet (Same as: [place] 325/10) Levetiracet 2015-08 No Notes: Micah taylor am 0-16 Same as l 03:17: Keppra Mix with 100 mL NS, LR or D5W MEDICATION WASTE Product Size: 500 mg Product Wasted: __0_ mg Sodium 2015-08 No 1,000 mL, Memori a Chloride 0-16 Rate: 75 l 0.154 03:17: ml/hr, [place] MEQ/ML 00 Infuse Injectable over: 13.3 Solution hr, Route: IV, Dosing Weight 76.364 kg, Total Volume: 1,000, Start date: 05/24/16 22:17:00 CDT, Duration: 30 day, Stop date: 06/23/16 22:16:00 CLERK STENOGRAPHER Acetaminoph 2015-08 No Notes: Micah taylor en 325 MG / 0-16 (Same as: l Hydrocodone 03:17: [place] nn Bitartrate 00 325/5) Do 5 MG Oral not exceed Tablet 4gm/day of acetaminop hen. Saline 2015-08 No Notes: Memoria Flush 0.9% 0-16 (Same as: l 01:56: BD Jevon 00 Posiflush) Zanaflex Zanaflex Yes Home [address] [place] as needed [facility] Lipitor Lipitor Yes Home [address] [facility] [place] [facility] Breo Breo Yes Home [address] [facility] Ellipta Ellipta [place] [facility]ics Aspir-81 Aspir-81 Yes Home [address] [place] [facility] ProAir HFA ProAir HFA Yes Home [address] [facility] [place] [facility] Prilosec Prilosec Yes Home [address] [facility] [place] [facility] Amlodipine Amlodipine Yes Home [address] [facility] Besylate Besylate [place] [facility] Amlodipine Amlodipine Yes Home TAKE ONE [facility] Besylate Besylate [place] (1) [facility] - TABLET(S) Memoria BY MOUTH l TWICE [facility] Clinics Atorvastati Atorvastati Yes Home TAKE ONE [facility] n Calcium n Calcium [place] (1) Luke s - TABLET(S) Memoria BY MOUTH l NIGHTLY. [facility] Clonidine Clonidine Yes Home [address] [facility] HCl HCl [place] at bedtime [facility] Lisinopril Lisinopril Yes Home [address] [facility] [place] [facility] Warfarin Warfarin Yes Home 1 tablet ( [facility] Sodium Sodium [place] 4 mg + 3 [facility] - mg) [facility] Primidone Primidone Yes Home [address] [facility] [place] [facility] Ferrous Ferrous Yes Home TAKE ONE [facility] Sulfate Sulfate [place] (1) [facility] - TABLET(S) Memoria BY MOUTH l TWICE [facility] DAY WITH ent MEALS. Clinics Amitriptyli Amitriptyli Yes Home [address] [facility] ne HCl ne HCl [place] [facility] Topamax Topamax Yes Home [address] [facility] [place] [facility] Warfarin Warfarin Yes Home [address] Sodium Sodium [place] [facility] Vitamin D3 Vitamin D3 Yes Home [address] [facility] [place] [facility] Clinics Immunizations Ordered Immunization Filled Immunization Date Status Commen ts Source Name Name FLUZONE HIGH-DOSE PF 2019-06-17 Completed [place] 00:[facility]:00 [facility] Vital Signs Vital Name Observation Time Observation Value Comments Source Oxygen saturation in 2021-02-08 11:15:00 100 /min [facility] - Arterial blood by Medical Ce nter Pulse oximetry Systolic blood 2021-02-08 11:15:00 133 mm[Hg] [facility] Diastolic blood 2021-02-08 11:15:00 62 mm[Hg] [facility] Heart rate 2021-02-08 11:15:00 60 /min [facility] Body temperature 2021-02-08 11:15:00 35.94 Mari [facility] Respiratory rate 2021-02-08 11:15:00 18 /min [facility] Body weight 2021-02-08 05:00:00 60.51 kg [facility] BMI 2021-02-08 05:00:00 20.89 kg/m2 [facility] Body height 2021-02-04 14:00:00 170.2 cm [facility] Systolic (mm Hg) 2020-11-01 21:06:00 Micah rial [place] Diastolic (mm Hg) 2020-11-01 21:06:00 Mem orial [place] Heart Rate 2020-11-01 21:06:00 [facility] [place] Respitory Rate 2020-11-01 21:06:00 Memori al Jevon Weight 2020-11-01 21:06:00 [facility] [place] Heart Rate 2018-08-13 22:09:00 [facility] [place] Respitory Rate 2018-08-13 22:09:00 Memori al Jevon Systolic (mm Hg) 2018-08-13 22:09:00 Micah rial [place] Diastolic (mm Hg) 2018-08-13 22:09:00 Mem orial [place] BMI Calculated 2018-08-13 22:09:00 Memori al Jevon Height 2018-08-13 22:09:00 160.02 cm [facility] [place] Weight 2018-08-13 22:09:00 [facility] Systolic (mm Hg) 2016-05-30 16:34:00 Micah rial Jevon Diastolic (mm Hg) 2016-05-30 16:34:00 Mem orial Jevon Temperature Oral (F) 2016-05-30 16:34:00 97.7 F [facility] [place] Heart Rate 2016-05-30 16:34:00 [facility] [place] Respitory Rate 2016-05-30 16:34:00 Memori al Jevon Respitory Rate 2016-05-30 13:20:00 Memori al [place] Heart Rate 2016-05-30 13:20:00 [facility] Systolic (mm Hg) 2016-05-30 13:20:00 Micah rial [facility]evon Diastolic (mm Hg) 2016-05-30 13:20:00 Mem orial Jevon Temperature Oral (F) 2016-05-30 13:20:00 97.8 F [facility] [place] Systolic (mm Hg) 2016-05-30 08:32:00 Micah rial Jevon Diastolic (mm Hg) 2016-05-30 08:32:00 Mem orial Jevon Temperature Oral (F) 2016-05-30 08:32:00 98.1 F [facility] Respitory Rate 2016-05-30 08:32:00 Memori al Jevon Heart Rate 2016-05-30 08:32:00 [facility] [place] BMI Calculated 2016-05-25 07:10:00 Julian Matos Weight 2016-05-25 07:10:00 [facility] [place] Height 2016-05-25 07:10:00 172.72 cm Richard Taiann Weight 2016-05-25 01:40:00 [facility] BMI Calculated 2016-05-25 01:40:00 Julian Matos Height 2016-05-25 01:40:00 170.18 cm [facility] Procedures Procedure Date / Time Performing Clinician Source Performed APTT 2021-02-08 04:16:[address] [facility] CBC (HEMOGRAM ONLY) 2021-02-08 04:16:00 [place] [facility] PROTHROMBIN TIME/INR 2021-02-08 04:16:[address] [facility] US ABDOMEN COMPLETE 2021-02-08 02:45:00 Gigi [facility] APTT 2021-02-07 20:57:00 Velvet [facility] HC ARTERIAL DOPPLER LEGS 2021-02-07 18:27:00 Liam Deluna [facility] HC ARTERIAL(BRAIN W 2021-02-07 18:27:00 [facility]ONLY [facility] APTT 2021-02-07 12:21:00 Velvet [facility] HEPATIC FUNCTION PANEL 2021-02-07 12:21:00 Stevo [facility] BASIC METABOLIC PANEL (7) 2021-02-07 05:06:00 José-Smart, [facility] APTT 2021-02-07 05:06:00 Blanca Conley [facility] CBC (HEMOGRAM ONLY) 2021-02-07 05:06:00 José-Smart, [facility] APTT 2021-02-07 00:09:00 Red Lund [facility] APTT 2021-02-06 16:58:00 [facility] HEM[facility] A1C 2021-02-06 12:18:00 Liam Delunaal [facility] APTT 2021-02-06 12:18:00 [facility] APTT 2021-02-06 04:49:00 [facility] BASIC METABOLIC PANEL (7) 2021-02-06 04:18:00 José-Smart, [facility] CBC (HEMOGRAM ONLY) 2021-02-06 04:18:00 José-[facility] LIPID PANEL 2021-02-06 04:18:00 [facility] 2021-02-05 23:25:00 Velvet [facility] APTT 2021-02-05 16:29:00 [facility] 2021-02-05 15:10:00 Red Lund [facility] PROTHROMBIN TIME/INR 2021-02-05 15:10:00 [facility] 2021-02-05 12:47:00 [facility] PROTHROMBIN TIME/INR 2021-02-05 12:47:00 [facility] 2021-02-05 11:46:00 [facility] BEDSIDE SPIROMETRY 2021-02-05 07:50:00 José-Smart, [facility] APTT 2021-02-05 04:36:00 Red Lund [facility] BASIC METABOLIC PANEL (7) 2021-02-05 04:36:00 José-Smart, [facility] CBC (HEMOGRAM ONLY) 2021-02-05 04:36:00 José-[facility] APTT 2021-02-04 22:56:00 José-Smart, [facility] HC CAROTID DOPPLER JUSTIN 2021-02-04 21:44:00 Red Lund [facility] SARS-COV2/RT-PCR ([facility] & 2021-02-04 20:06:00 JoséSmart, [facility] - REF LABS) [facility] [place] ANTIBODY IDENTIFICATION 2021-02-04 18:45:00 Tiffanie Conley [facility] PREPARE RBC 2021-02-04 15:33:00 Tiffanie Conley [facility] 2D ECHO W/ DOPPLER 2021-02-04 14:54:32 Tiffanie Conley [facility] (CW/PW/COLOR) [facility] ECG 12-LEAD 2021-02-04 13:38:31 Shun Mejia [facility] ECG 12-LEAD 2021-02-04 13:36:08 Tiffanie Conley [facility] XR CHEST 1 VIEW 2021-02-04 13:18:00 Tiffanie Conley [facility] - PORTABLE/BEDSIDE [facility] BASIC METABOLIC PANEL (7) 2021-02-04 13:11:00 Tiffanie Conley [facility] CBC W/PLT COUNT & AUTO 2021-02-04 13:11:00 [facility] DIFFERENTIAL [facility] MAGNESIUM 2021-02-04 13:11:00 Tiffanie Conley [facility] PHOSPHORUS 2021-02-04 13:11:00 Tiffanie Conley [facility] PROTHROMBIN TIME/INR 2021-02-04 13:11:00 Jarvis Tiffanie [facility] APTT 2021-02-04 13:11:00 Jarvis [facility] TYPE AND SCREEN, 2021-02-04 13:11:00 Tiffanie Conley [facility] s - AUTOMATED [facility] Abdominal aortic aneurysm Memori al Jevon stenting<sup>1</sup> Bypass / graft of vein [facility] Hernia repair [facility] Plan of Care Planned Activity Planned Date Details Comments Source Future Scheduled 2021-04-10 INFLUENZA VACCINE (#1) [facility]:00 [code = INFLUENZA Medical Ce nter VACCINE (#1)] Future Scheduled 2021-03-10 INFLUENZA VACCINE [place] [facility] 00:00:00 [code = INFLUENZA VACCINE] Future Scheduled 2020-08-[address] [facility] Test 00:00:00 (12+) [code = Medical Center DEPRESSION SCREENING (12+)] Future Scheduled 2008-02-22 65+ PNEUMOCOCCAL [facility] [...] Scheduled 1993 SHINGLES VACCINES (#1) [place] [facility] Test 00:00:00 [code = SHINGLES VACCINES [...] Scheduled 1961 Hepatitis C screening [place] [facility] Test 00:00:00 (procedure) [code = 244388501] Future Scheduled 1961 HEPATITIS C [facility]CRE[facility]ING [facility] [code = HEPATITIS C Medical Center SCREENING] Future Scheduled 1955 COVID-19 VACCINE (1) Rodolfo concepcion [facility] Test 00:00:00 [code = COVID-19 VACCINE (1)] Future Scheduled 1955 COVID-19 VACCINE (1) [facility] Test 00:00:00 [code = COVID-[address] VACCINE (1)] Encounters Start End Encounter Admission Attending Care Care Encounter Source Date/Time Date/Time Type Type Clinicians Facility Department ID 2021-01-08 2021-01-08 Outpatient [facility] [id number] [facility] 2020-12-05 2020-12-05 Outpatient [facility] [id number] [facility] 2020-11-27 2020-11-28 Outpatient MHMISCHER MHMISCHER [id number] 15:11:31 23:59:59 03 2020-11-01 2020-11-01 Outpatient JANAE ElliottSCHER MHMISCHER [id number] 16:00:00 23:59:59 James 13 [place] 2020-10-23 2020-10-23 [facility] [id number] 2020-10-18 2020-10-18 Outpatient JANAE ElliottSCHER MHMISCHER [id number] 15:30:00 15:30:00 James 11 [place] 2020-10-12 2020-10-12 Outpatient JANAE ElliottSCHER MHMISCHER [id number] 09:00:00 09:00:00 James 10 [place] 2020-07-03 2020-07-03 Outpatient [facility] [id number] [facility] 2020-06-19 2020-06-19 Outpatient NELLY ElliottMISCHER MHMISCHER [id number] 14:00:00 14:00:00 James 07 [place] 2020-06-19 2020-06-19 Outpatient JANAE ElliottSCHER MHMISCHER [id number] 14:00:00 14:00:00 James 08 [place] 2020-06-07 2020-06-07 [facility] [id number] [facility] Outpat[facility] ent Clinics 2020-05-30 2020-05-30 [facility] [id number] [facility] 2020-03-05 2020-03-05 [facility] [id number] [facility] 13:30:00 13:30:00 t [employer] [facility] Outpati ent Clinics 2020-01-26 2020-01-26 [facility] [id number] 11:08:00 11:08:00 [employer] [facility] 2019-12-27 2019-12-27 [facility] [id number] 14:45:00 14:45:00 [employer] [facility] 2019-12-15 2019-12-15 Outpatient JANAE ElliottSCHSHEILA MISCHER [id number] 10:45:00 23:59:59 James 06 [place] 2019-11-15 2019-11-15 Outpatient JANAE ElliottSCHSEHILA MISCHER [id number] 09:15:00 09:15:00 James 05 [facility] 2019-09-16 2019-09-16 [facility] [id number] 14:58:00 14:58:00 [employer] [facility] Outpati ent Clinics 2019-09-14 2019-09-14 [facility] [id number] 14:45:00 14:45:00 [employer] [facility] Outpati ent Clinics 2019-08-31 2019-08-31 Outpatient JANAE ElliottSCHSHEILA MISCHER [id number] 13:45:00 13:45:00 James 04 [place] 2019-08-19 2019-08-19 [facility] [id number] 14:49:00 14:49:00 t [employer] [facility] Outpati ent Clinics 2019-07-20 2019-07-20 [facility] [id number] 15:09:00 15:09:00 t [employer] - [employer] [facility] Medicine Outpati ent Clinics 2019-06-30 2019-06-30 [facility] [id number] 08:49:00 08:49:00 t [employer] - [employer] [facility] Outpati ent Clinics 2019-06-27 2019-06-27 [facility] [id number] 15:00:00 15:00:00 t [employer] [facility] Medicine Outpati ent Clinics 2019-06-08 2019-06-17 Inpatient [facility] [id number] [place] [address] 00:00:00 00:00:00 DENZEL Ibrahim[address] [facility] 2019-05-13 2019-05-13 [facility] [id number] 15:00:00 15:00:00 James Salvador 2019-03-15 2019-03-15 [facility] [id number] 16:15:00 16:15:00 t [employer] [facility] Outpati ent Clinics 2019-02-22 2019-02-22 [facility] [id number] 10:56:00 10:56:00 t [employer] [facility] Medicine Outpati ent Clinics 2019-01-21 2019-01-21 [facility] [id number] 16:26:00 16:26:00 t [employer] [facility] Outpati ent Clinics 2018-12-07 2018-12-07 [facility] [id number] 14:15:00 14:15:00 t Specialty/U Karine kes - Specialty rology [facility] a /Urology Clinic l Clinic Outpati ent Clinics 2018-12-01 2018-12-01 [facility] [id number] 14:15:00 14:15:00 t [employer] [facility] Medicine Outpati ent Clinics 2018-11-10 2018-11-10 [facility] [id number] 15:15:00 15:15:00 t Willard [employer] s - [employer] [facility] Medicine Outpati ent Clinics 2018-08-17 2018-08-18 Outpatient MHMISCHER MHMISCHER [id number] 15:18:00 23:59:59 02 2018-08-13 2018-08-13 [facility] [id number] 15:45:00 23:59:59 James Александр Salvador 2018-08-12 2018-08-12 [facility] [id number] 16:00:00 16:00:00 t Willard [employer] s - [employer] [facility] Outpati ent Clinics 2018-05-19 2018-05-19 [facility] [id number] 08:50:00 08:50:00 t Willard [employer] s - [employer] [facility] Medicine Outpati ent Clinics 2018-05-11 2018-05-11 [facility] [id number] 09:14:00 09:14:00 t Willard [employer] s - [employer] [facility] Medicine Outpati ent Clinics 2018-04-07 2018-04-07 [facility] [id number] 15:15:00 15:15:00 t Willard [employer] s - [employer] [facility] Medicine Outpati ent Clinics 2018-04-05 2018-04-05 [facility] [id number] 10:00:00 10:00:00 t Willard [employer] s - [employer] [facility] Medicine Outpati ent Clinics 2018-03-31 2018-03-31 [facility] [id number] 09:00:00 09:00:00 t Willard [employer] s - [employer] [facility] Medicine Outpati ent Clinics 2018-03-23 2018-03-23 [facility] [id number] 09:00:00 09:00:00 t Willard [employer] s - Drive [facility] Outpati ent Clinics 2018-03-04 2018-03-04 [facility] [id number] 16:21:00 16:21:[address] Luke s - Drive [facility] l Medicine Outpati ent Clinics 2018-02-24 2018-02-24 [facility] [id number] 16:02:00 16:02:[address] Luke s - Drive [facility] Medicine l Medicine Outpati ent Clinics 2018-02-24 2018-02-24 [facility] [id number] 14:30:00 14:30:[address] Luke s - Drive [facility] Medicine l Medicine Outpati ent Clinics 2018-02-15 2018-02-15 [facility] [id number] 16:32:00 16:32:[address] Luke s - Drive [facility] Medicine l Medicine Outpati ent Clinics 2018-01-01 2018-01-01 [facility] [id number] 10:03:00 10:03:[address] Luke s - Drive [facility] Medicine l Medicine Outpati ent Clinics 2017-12-30 2017-12-30 [facility] [id number] 16:56:00 16:56:[address] Luke s - Drive [facility] Medicine l Medicine Outpati ent Clinics 2017-12-30 2017-12-30 [facility] [id number] 14:30:00 14:30:[address] Luke s - Drive [facility] Medicine l Medicine Outpati ent Clinics 2017-12-24 2017-12-24 [facility] [id number] 09:12:00 09:12:[address] Luke s - Drive [facility] Medicine l Medicine Outpati ent Clinics 2017-12-22 2017-12-22 [facility] [id number] 08:18:00 08:18:[address] Luke s - Drive [facility] Medicine l Medicine Outpati ent Clinics 2017-12-10 2017-12-10 [facility] [id number] 13:37:00 13:37:[address] Luke s - Drive [facility] Medicine l Medicine Outpati ent Clinics 2017-12-03 2017-12-03 [facility] [id number] 15:29:00 15:29:[address] Luke s - Drive [facility] Medicine Outpati ent Clinics 2017-12-01 2017-12-01 [facility] [id number] 10:54:00 10:54:[address] Luke s - Drive [facility] Medicine Outpati ent Clinics 2017-11-13 2017-11-13 [facility] [id number] 12:22:00 12:22:[address] Luke s - Drive [facility] Medicine Outpati ent Clinics 2017-11-13 2017-11-13 [facility] [id number] 09:51:00 09:51:[address] Luke s - Drive [facility] Medicine Outpati ent Clinics 2017-11-10 2017-11-10 [facility] [id number] 15:34:00 15:34:[address] Luke s - Drive [facility] Medicine Outpati ent Clinics 2017-11-04 2017-11-04 [facility] [id number] 15:30:00 15:30:[address] Luke s - Drive [facility] Medicine Outpati ent Clinics 2016-05-24 2016-05-30 Outpatient Tristabeena [facility] [id number] 20:36:00 11:59:00 Abraham Franklin 67 Results Test Description Test Time Test Comments Results Result Comments Source aPTT 2021-02-08 04:55:00 Test Item Value Reference Range Interpretation Comme nts PTT (test code = 39232-7) 28.5 See_Comment [ Automated message] The system which generated this result transmitted ref erence range: 22.5 - 36.0 seconds. The reference range was not u sed to interpret this result as normal/abnormal. Lab Interpretation (test code = Normal 62584-1) [facility] Test Item Value Reference Range Interpretation Comments PARTIAL THROMBOPLASTIN TIME 28.5 seconds 22.5-36.0 (BEAKER) (test code = 760) Prothrombin time/[id number] 04:54:00 Test Item Value Reference Interpretation Comments Range Protime (test code = 13.8 See_Comment [Autom ated 5902-2) message] The system which generated this result transmitted reference range : 11.9 - 14.2 seconds. The reference range was not used to interpret this result as normal/abnormal . INR (test code = 1.08 See_Comment [Automated 6301-6) message] The system which generated this result transmitted reference range : <=5.90. The reference range was not used to interpret this result as normal/abnormal . MICHELLE (test code = RECOMMENDED MICHELLE) COUMADIN/WARFARIN INR THERAPY RANGESSTANDARD DOSE: 2.0 - 3.0 Includes: PROPHYLAXIS for venous thrombosis, systemic embolization; TREATMENT for venous thrombosis and/or pulmonary embolus.HIGH RISK: Target INR is 2.5-3.5 for patients with mechanical heart valves. Lab Interpretation Normal (test code = 45906-5) [facility][id number] 04:54:00 Test Item Value Reference Range Interpretation Comments PROTIME (BEAKER) 13.8 seconds 11.9-14.2 (test code = 759) INR (BEAKER) (test 1.08 See_Comment [Automat ed message] code = 370) The system [employer] generated this result transmitted ref erence range: <=5.90. The reference range was not used to int erpret this result as normal/abnormal . RECOMMENDED COUMADIN/WARFARIN INR THERAPY RANGESSTANDARD DOSE: 2.0 - 3.0 Includes: PROPHYLAXIS forvenous thrombosis, systemic embolization; TREATMENT for venous thrombosis and/or pulmonary embolus.HIGH RISK: Target INR is 2.5-3.5 for patients with mechanical heart valves.CBC (hemogram only)2021-02-08 04:33:00 Test Item Value Reference Range Interpretation Comments WBC (test code = 6690-2) 5.1 See_Comment [A utomated message] The system [employer] generated this result transmitted ref erence range: 3.5 - 10 .5 K/L. The refe rence range was not u sed to interpret this result as normal/abnor mal. RBC (test code = 789-8) 4.12 See_Comment L [Au tomated message] The system [employer] generated this result transmitted ref erence range: 4.63 - 6 .08 M/L. The refe rence range was not u sed to interpret this result as normal/abnor mal. MCHC (test code = 786-4) 32.1 See_Comment L [A utomated message] The system [employer] generated this result transmitted ref erence range: 32.3 - 3 6.5 GM/DL. The refe rence range was not u sed to interpret this result as normal/abnor mal. Hematocrit (test code = 36.8 % 40.1-51 L 4544-3) MCV (test code = 787-2) 89.3 fL 79-92.2 MCH (test code = 785-6) 28.6 pg 25.7-32.2 RDW (test code = 788-0) 13.8 % 11.6-14.4 Platelets (test code = 193 See_Comment [Aut omated message] 777-3) The system [employer] generated this result transmitted ref erence range: 150 - 45 0 K/CU MM. The referen ce range was not u sed to interpret this result as normal/abnor mal. MPV (test code = 10.2 fL 9.4-12.4 07642-4) nRBC (test code = 413) 0 See_Comment [Aut omated message] The system [employer] generated this result transmitted ref erence range: 0 - 0 /1 00 WBC. The refere nce range was not u sed to interpret this result as normal/abnor mal. Lab Interpretation (test Abnormal code = 42198-9) [facility] (HEMOGRAM ONLY)2021-02-08 04:33:00 Test Item Value Reference Range Interpretation Comments WHITE BLOOD CELL COUNT (BEAKER) 5.1 K/ L 3.5-10.5 (test code = 775) RED BLOOD CELL COUNT (BEAKER) 4.12 M/ L 4.63-6.08 L (test code = 761) HEMOGLOBIN (BEAKER) (test code = 11.8 GM/DL 13.7-17.5 L 410) HEMATOCRIT (BEAKER) (test code = 36.8 % 40.1-51.0 L 411) MEAN CORPUSCULAR VOLUME (BEAKER) 89.3 fL 79.0-92.2 (test code = 753) MEAN CORPUSCULAR HEMOGLOBIN 28.6 pg 25.7-32.2 (BEAKER) (test code = 751) MEAN CORPUSCULAR HEMOGLOBIN CONC 32.1 GM/DL 32.3-36.5 L (BEAKER) (test code = 752) RED CELL DISTRIBUTION WIDTH 13.8 % 11.6-14.4 (BEAKER) (test code = 412) PLATELET COUNT (BEAKER) (test 193 K/CU MM 150-450 code = 756) MEAN PLATELET VOLUME (BEAKER) 10.2 fL 9.4-12.4 (test code = 754) NUCLEATED RED BLOOD CELLS 0 /100 WBC 0-0 (BEAKER) (test code = 413) U/S, ABDOMINAL, [id number] 04:13:00Reason for exam:->H/O ABDOMINAL AORTIC ANEURYSMShould this be performed at the bedside?->No [facility] [place] : 1945 Sex: MFINAL REPORT INDICATION: H/O ABDOMINAL AORTIC ANEURYSM COMPARISON: N one TECHNIQUE: Real-time chapman-scale transabdominal and color and spectral Doppler ultrasound. FINDINGS:Liver: Size: 16.3cm. Echogenicity: Normal. Masses/lesions: None. Surface Nodularity: None. Intrahepatic bile ducts: Normal. Common bile duct: 0.6cm. MPV: 1.3cm. Gallbladder: Surgically absent. Pancreas: Head and uncinate process: Not well-seen secondary to poor acoustic windowing.. Body and tail: Not well- seen. Spleen: Size: 11.0cm. Echogenicity: Multiple calcified granulomas throughout the parenchyma.. Right kidney: Size: 9.5 x 4.2 x 4.2 cm. Parenchyma: Normal echogenicity. No cysts. No stones. Hydronephrosis: None. Left kidney: Size: 9.9 x 4.5 x 5.1 cm. Parenchyma: Normal echogenicity. No cysts. No stones. Hydronephrosis: None. Ascites: None. Regional Vasculature: The visible abdominal aorta, IVC and hepatic veins are patent. The proximal abdominal aorta measures 2.5 x 3.5 cm.The mid abdominal aorta measures 3.6 x 4.3cm.The distal abdominal aorta measures 2.7 x 3.4 cm. The right common iliac artery measures 2.0 x 2.5 cm.The left common iliac artery measures 1.8 x 2.7 cm. Additional findings: None. 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 S igned: Blanka [facility] Verified Date/Time: 02/08/2021 04:13:46 Electronically signedby: BLANKA CLEVELAND MD on 02/08/2021 04:13 AMUS abdomen [id number] 04:13:00Interface, External Ris In - 02/08/2021 4:16 AM CDTFINAL REPORT INDICATION: H/O ABDOMINAL AORTIC ANEURYSM COMPARISON: None TECHNIQUE: Real-time chapman-scale transabdominal and color and spectral Doppler ultrasound. FINDINGS:Liver: Size: 16.3cm. Echogenicity: Normal. Masses/lesions: None. Surface Nodularity: None. Intrahepatic bile ducts: Normal. Commonbile duct: 0.6cm. MPV: 1.3cm. Gallbladder: Surgically absent. Pancreas: Head and uncinate process: Not well-seen secondary to poor acoustic windowing.. Body and tail: Not well- seen. Spleen: Size: 11.0cm. Echogenicity: Multiple calcified granulomas throughout the parenchyma.. Right kidney: Size: 9.5 x 4.2 x 4.2 cm. Parenchyma: Normal echogenicity. No cysts. No stones. Hydronephrosis: None. Left kidney: Size: 9.9 x 4.5 x 5.1 cm. Parenchyma: Normal echogenicity. No cysts. No stones. Hydronephrosis: None. Ascites: None. Regional Vasculature: The visible abdominal aorta, IVC and hepatic veins are patent. The proximal abdominal aorta measures 2.5 x 3.5 cm.The mid abdominal aorta measures 3.6 x 4.3 cm.The distal abdominal aorta measures 2.7 x 3.4 cm. The right common iliac artery measures 2.0 x 2.5 cm.The left common iliac artery measures 1.8 x 2.7 cm. Additional findings: None. 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 Signed: Blanka [place] Verified Date/Time: 02/08/2021 04:13:46 [facility]00 Test Item Value Reference Range Interpretation Comments PARTIAL THROMBOPLASTIN TIME 28.6 seconds 22.5-36.0 (BEAKER) (test code = 760) BRAIN's Only(Ankle/Brachial Index)2021-02-07 19:35:04[facility] MKCKESSON CPACSRight Impression1. The posterior tibial and dorsalis pedis arteries appear to be occludedwith no Doppler signals detected.3. The great toe pressure and TBI could not be obtained due to severelydiminished flow by PPG waveforms.4. The second, third, fourth and fifth digits have absent flow by PPGwaveforms.Left Impression1. The posterior tibial artery appears to be occluded with no Dopplersignals detected.2. The dorsalis pedis artery is patent with monophasic Doppler waveforms.3. The DP pressure is 109 mmHg with an BRAIN of 0.83, within mild obstructionrange.3. The great toe pressure and TBI could not be obtained due to severelydiminished flow by PPG waveforms.4. The second and fourth digits have diminished flow by PPG waveforms.5. The third and fifthdigits have absent flow by PPG waveforms. Conclusions Summary Arterial pressures and Doppler waveforms were performed bilaterally. Adequate Doppler waveforms were obtained. On the right, the posterior tibial and dorsalis pedis arteries were occluded with no Doppler signals detected. On the left, the dorsalis pedis artery was patent with monophasic Doppler waveforms. On the left, the posterior tibial artery is occluded with no Doppler signals detected. The left dorsalis pedis BRAIN was within moderate obstruction range. The toe pressure and TBIs were not obtained bilaterally due to severely diminished flow by PPG waveforms. On the right, the second, third, fourth and fifth digits had absent flow by PPG waveforms. On the left, the third and fifth digits had absent flow by PPG waveforms. Signature Velocities are measured in cm/s ; Diameters are measured in cm Interface, External Ris In - 02/07/2021 7:35 PM CDTPV LAB - Lower Extremity Arterial Procedure Demographics PatientName PINEDA MCKEON Date of Study 02/07/2021 DOROTEO Age 75 Visit Number [id number] Gender Male Accession Number [id number] Date of 1945 Referring alfie hwang Room Number [id number] Physician Customer Engagement Representative Darlene Moore T Physician ProcedureType of Study: Extremities Arteries: Lower Extremity Arterial Procedure, ARTERIAL (BRAIN'S W/DOPPLER) ONLY. Indications for Study:PAD.Patient Status:Routine.Study Location:Vascular Lab.Technical Quality:Poor visualizatio n.Risk FactorsHistory of Disease+ +----+ ------+!Diagnosis !Date!Comments !+ + ----+ +!History/Risk ! !PAD, COPD, HTN, HLD, CAD, AAA, S/p TAVR, Seizures, !!Factors: ! !Factor V, TIA, CHF, AFIB, former smoker (2010) !+ +----+ +Imp ressionsRightImpression1. The posterior tibial and dorsalis pedis arteries appear to be occludedwith no Doppler signals detected.3. The great toe pressure and TBI could not be obtained due to severelydiminished flow by PPG waveforms.4. The second, third, fourth and fifth digits have absent flow by PPGwaveforms.Left Impression1. The posterior tibial artery appears to be occluded with no Dopplersignals detected.2. The dorsalis pedis artery is patent with monophasic Doppler waveforms.3. The DP pressure is 109 mmHg with an BRAIN of 0.83, within mild obstructionrange.3. The great toe pressure and TBI could not be obtained due to severelydiminished flow by PPG waveforms.4. The second and fourth digits have diminished flow by PPG waveforms.5. The third and fifth digits have absent flow by PPG waveforms. Conclusions Summary Arterial pressures and Doppler waveforms were performed bilaterally. Adequate Doppler waveforms were obtained. On the right, the posterior tibial and dorsalis pedis arteries were occluded with no Doppler signals detected. On the left, the dorsalis pedis artery was patent with monophasic Dopplerwaveforms. On the left, the posterior tibial artery is occluded with no Doppler signals detected. The left dorsalis pedis BRAIN was within moderate obstruction range. The toe pressure and TBIs were not ob tained bilaterally due to severely diminished flow by PPG waveforms. On the right, the second, third, fourth and fifth digits had absent flow by PPG waveforms. On the left, the third and fifth digits had absent flow by PPG waveforms. Signature ------- - Velocities are measured in cm/s ; Diameters are measured in [facility] Arterial doppler legs [id number] 19:34:34Ejection FractionSLEH ECHO HEARTLAB MKCKESSON CPACSRight Impression1. The common femoral and profunda femoral arteries are patent with biphasicDoppler waveforms.2. There is a stent visualized at the distal common femoral artery with avelocity of 46 cm/sec.3. The peroneal and proximal to mid anterior tibial arteries are patent withmonophasic Doppler waveforms and severely calcified plaque visualizedthr oughout.4. The femoral, popliteal, distal anterior tibial and mid to distalposterior tibial arteriesare occluded with no Doppler signals detected andseverely calcified plaque visualized throughout.5. The proximal posterior tibial artery is patent with retrograde flow.Left Impression1. The common femor al and proximal femoral arteries are patent with biphasicDoppler waveforms.2. The profunda femoral artery is patent with triphasic Doppler waveformsand a >50% stenosis with a velocity of 156 cm/sec.3. The anterior tibial artery is patent with monophasic Doppler waveformsand a >50% stenosis at proximal with a velocity of 86 cm/sec.4. The mid to distal femoral, posterior tibial and peroneal arteries areoccluded with no Doppler signals detected and severely calcified plaquevisualized.5. There appears to be a bypass visualized in the posterior thigh to thepopliteal sofas. The proximal and distal anastomosis could not be visualizeddue to accoustic shadowing. Conclusions Summary Arterial pressures and Doppler analysis were performed on bilateral lower extremities. The arterial exam was technically difficult due to scaring and severe calcification. On the right, there was a stent visualized atthe distal common femoral artery with a velocity of 46 cm/sec. On the right, the femoral, popliteal,distal anterior tibial and mid to distal posterior tibial arteries are occluded with no Doppler signals detected and severely calcified plaque visualized throughout. On the right, the proximal posterior tibial artery is patent with retrograde flow. No bypasses were visualized in the right lower extremity. On the left, the profunda femoral artery had a >50% stenosis with a velocity of 156 cm/sec. On the left, the anterior tibial artery had a >50% stenosis at proximal with a velocity of 86 cm/sec. On the left, the mid to distal femoral, posterior tibial and peroneal arteries are occluded with no Doppler signals detected and severely calcified plaque visualized. On the left, there appeared to be a bypass visualized in the posterior thigh to the popliteal sofas. The proximal and distal anastomosis were not visualized due to accoustic shadowing. The Arterial exam was technically difficult due to scaring and severe calcification. Other forms of imaging are recommended. Signature Velocities are measured in cm/s ; Diameters are measured in cm LE Duplex Measurements Right Left + + +------- + + + + + + + !Location ! !PSV !EDV !Waveform ! !PSV !EDV !Waveform ! + + + + + + + + + + !Mid Common Femoral ! !46 ! ! ! !39.9 ! ! !+ + + + + + + + + + !Prox PFA ! !18.9 ! ! ! !156 ! ! ! + + + + + + + + + + !Prox SFA ! !0 ! ! ! !34 ! ! ! + + + + + + + + + + !Mid SFA ! !0 ! ! ! !0 ! ! ! + + + + + + + -------+ + + !Dist SFA ! !0 ! ! ! !0! ! ! + + + + + + + + + + !Prox Popliteal ! !0 ! ! ! !0 ! ! ! + + +---- + + + + + + + !Dist Popliteal ! !0 ! ! ! !0 ! ! ! + + + + + + + + + + !Prox PLATER SUPERVISOR ! !0 ! ! ! !0 ! ! ! + + + + + + + + + + !Mid PLATER SUPERVISOR ! !0 ! ! ! !86.4 ! ! ! + + + + + + + + + + !Dist PLATER SUPERVISOR ! !14.1 ! ! ! !42 ! ! ! + + + + + + + + + + !Prox AMARA ! !7.86 ! ! ! !25.5 ! ! ! + + + + + + +--------- + + + !Mid AMARA ! !0 ! ! ! !0 ! ! ! + + + + + + + + + + !Dist AMARA ! !12.9 ! ! ! !0.24 ! ! ! + + +- + + + + + + + !Prox Peroneal ! !13.8 ! ! ! !0 ! ! ! + + + + + + + + + + !Mid Peroneal ! !10.2 ! ! ! + + + + + + !Dist Peroneal ! + + Interface, External Ris In - 02/07/2021 7:34 PM CDTPV LAB - Lower Extremity Arterial Duplex Demographics Patient Name PINEDA MCKEON Date of Study 02/07/2021 DOROTEO Age 75 Visit Number [id number] Gender Male Accession Number [id number] Date of 1945 Referring alfie hwang Room Number [id number] Physician Customer Engagement Representative Guerda Mayfield, Interpreting Sangeeta Shaw, T Physician ProcedureType of Study: Extremities Arteries: Lower Extremities Arterial Duplex, ARTERIAL DOPPLER LEGS, BILATERAL. Indications for Study:PAD.Patient Status:Routine.Study Location:Vascular Lab.Technical Quality:Technically Difficult.Risk FactorsHistory of Disease+ +----+ +!Diagnosis !Date!Comments !+- +----+ +!Histo ry/Risk ! !PAD, COPD, HTN, HLD, CAD, AAA, S/p TAVR, Seizures, !!Factors: ! !Factor V, TIA, CHF, AFIB, former smoker (2010) !+ +----+ +I mpressionsRight Impression1. The common femoral and profunda femoral arteries are patent with biphasicDoppler waveforms.2. There is a stent visualized at the distal common femoral artery with avelocityof 46 cm/sec.3. The peroneal and proximal to mid anterior tibial arteries are patent withmonophasic Doppler waveforms and severely calcified plaque visualizedthroughout.4. The femoral, popliteal, distal anterior tibial and mid to distalposterior tibial arteries are occluded with no Doppler signals detected andseverely calcified plaque visualized throughout.5. The proximal posterior tibial artery is patent with retrograde flow.Left Impression1. The common femoral and proximal femoral arteries are patent with biphasicDoppler waveforms.2. The profunda femoral artery is patent with triphasic Doppler waveformsand a >50% stenosis with a velocity of 156 cm/sec.3. The anterior tibial artery is patent with monophasic Doppler waveformsand a >50% stenosis at proximal with a velocity of 86 cm/sec.4. The mid to distal femoral, posterior tibial and peroneal arteries areoccluded with no Doppler signals detected and severely calcified plaquevisualized.5. There appears to be a bypass visualized in the posterior thigh to thepopliteal sofas. The proximal and distal anastomosis could not be visualizeddue toaccoustic shadowing. Conclusions Summary Arterial pressures and Doppler analysis were performed onbilateral lower extremities. The arterial exam was technically difficult due to scaring and severe calcification. On the right, there was a stent visualized at the distal common femoral artery with a velocity of 46 cm/sec. On the right, the femoral, popliteal, distal anterior tibial and mid to distal posterior tibial arteries are occluded with no Doppler signals detected and severely calcified plaquevisualized throughout. On the right, the proximal posterior tibial artery is patent with retrograde flow. No bypasses were visualized in the right lower extremity. On the left, the profunda femoral artery had a >50% stenosis with a velocity of 156 cm/sec. On the left, the anterior tibial artery hada >50% stenosis at proximal with a velocity of 86 cm/sec. On the left, the mid to distal femoral,posterior tibial and peroneal arteries are occluded with no Doppler signals detected and severely calcified plaque visualized. On the left, there appeared to be a bypass visualized in the posterior thigh to the popliteal sofas. The proximal and distal anastomosis were not visualized due to accoustic shadowing. The Arterial exam was technically difficult due to scaring and severe calcification. Other forms of imaging are recommended. Signature Velocities are measured in cm/s ; Diameters are measured in cmLE Duplex Measurements Right Left + + + + + + + + + + !Location ! !PSV !EDV !Waveform ! !PSV !EDV !Waveform ! + + + + + + + + + + !Mid Common Femoral ! !46 ! ! ! !39.9 ! ! ! + + + + + + + -----+ + + !Prox PFA ! !18.9 ! ! ! !156 ! ! ! + + + + + + + + + + !Prox SFA !!0 ! ! ! !34 ! ! ! + + +------ + + + + + + + !Mid SFA ! !0 ! ! ! !0 ! ! ! + + + + + + + + + + !Dist SFA ! !0 ! ! ! !0 ! ! ! + + + + + + + + + + !ProxPopliteal ! !0 ! ! ! !0 ! ! ! + + + + + + + + + + !Dist Popliteal ! !0 ! ! ! !0 ! ! ! + + + + + + + + + + !Prox PLATER SUPERVISOR ! !0 ! ! ! !0 ! ! ! + + + + + + + --------+ + + !Mid PLATER SUPERVISOR ! !0 ! ! ! !86.4 ! ! ! + + + + + + + + + + !Dist PLATER SUPERVISOR ! !14.1 ! ! ! !42 ! ! ! + + +--- + + + + + + + !Prox AMARA ! !7.86 ! ! ! !25.5 ! ! ! + + + + + + + + + + !Mid AMARA ! !0 ! ! ! !0 ! ! ! + + + + + + + + + + !Dist AMARA ! !12.9 !! ! !0.24 ! ! ! + + + + + + + + + + !Prox Peroneal ! !13.8 ! ! ! !0 ! ! ! + + + + + + + + + + !Mid Peroneal ! !10.2 ! ! ! + + + + + + !Dist Peroneal ! +-------- +[facility] Center[facility] function [id number] 12:57:00 Test Item Value Reference Range Interpretation Comments Protein, Total (test 6.0 See_Comment [Autom ated code = 2885-2) message] The system which generated this result transmit jaime reference range : 6.0 - 8.3 gm/dL . The reference range was not u sed to interpret th is result as normal/abnormal . Albumin (test code = 3.4 g/dL 3.5-5 L 90864-7) Total Bilirubin (test 0.5 mg/dL 0.2-1.2 code = 1974-2) Bilirubin, Direct 0.2 mg/dL 0.1-0.5 (test code = 1968-7) Alkaline Phosphatase 129 U/L 40-150 (test code = 6768-6) AST (test code = 10 U/L 534 1920-8) ALT (test code = 7 U/L 655 1742-6) MICHELLE (test code = MICHELLE) Premium Card Cancellation Clerk ID - PIAYA L Lab Interpretation Abnormal (test code = 81265-7) [facility] Center[facility]ATIC FUNCTION [id number] 12:57:00 Test Item Value Reference Range Interpretation Comments TOTAL PROTEIN (BEAKER) (test code = 6.0 gm/dL 6.0-8.3 770) ALBUMIN (BEAKER) (test code = 1145) 3.4 g/dL 3.5-5.0 L BILIRUBIN TOTAL (BEAKER) (test code 0.5 mg/dL 0.2-1.2 = 377) BILIRUBIN DIRECT (BEAKER) (test 0.2 mg/dL 0.1-0.5 code = 706) ALKALINE PHOSPHATASE (BEAKER) (test 129 U/L 40-150 code = 346) AST (SGOT) (BEAKER) (test code = 10 U/L 5-34 353) ALT (SGPT) (BEAKER) (test code = 7 U/L 6-55 347) Premium Card Cancellation Clerk ID Vinnie CABALLERO [id number] 12:51:00 Test Item Value Reference Range Interpretation Comments PARTIAL THROMBOPLASTIN TIME 56.0 seconds 22.5-36.0 H (BEAKER) (test code = 760) Basic Metabolic [id number] 06:12:00 Test Item Value Reference Range Interpretation Comments Sodium (test code = 133 meq/L 136-145 L 2951-2) Potassium (test code = 3.5 meq/L 3.5-5.1 2823-3) Chloride (test code = 99 meq/L 98-107 2075-0) CO2 (test code = 24 meq/L 22-29 2028-9) BUN (test code = 17 mg/dL 7-21 3094-0) Creatinine (test code 1.29 mg/dL 0.57-1.25 H = 2160-0) Glucose (test code = 83 mg/dL 70-105 2345-7) Calcium (test code = 8.4 mg/dL 8.4-10.2 07076-4) EGFR (test code = 54 mL/min/1.73 sq m [facility] [place] [address]-5) NOT ACCURATE CREATININE CLEARANCE IN PREDICTING GLOMERULAR FILTRATION RATE . ESTIMATED GFR I S NOT APPLICABLE FOR DIALYSIS PATIENTS. MICHELLE (test code = MICHELLE) Premium Card Cancellation Clerk ID - PIAYA L Lab Interpretation Abnormal (test code = 41637-0) [facility] CenterBASI METABOLIC [id number] 06:12:00 Test Item Value Reference Range Interpretation Comments SODIUM (BEAKER) 133 meq/L 136-145 L (test code = 381) POTASSIUM (BEAKER) 3.5 meq/L 3.5-5.1 (test code = 379) CHLORIDE (BEAKER) 99 meq/L 98-107 (test code = 382) CO2 (BEAKER) (test 24 meq/L 22-29 code = 355) BLOOD UREA NITROGEN 17 mg/dL 7-21 (BEAKER) (test code = 354) CREATININE (BEAKER) 1.29 mg/dL 0.57-1.25 H (test code = 358) GLUCOSE RANDOM 83 mg/dL 70-105 (BEAKER) (test code = 652) CALCIUM (BEAKER) 8.4 mg/dL 8.4-10.2 (test code = 697) EGFR (BEAKER) (test 54 mL/min/1.73 ESTIMA JAIME GFR IS code = 1092) sq m NOT ACCURATE CREATININE CLEARANCE IN PREDICTING GLOMERULAR FILTRATION RATE . ESTIMATED GFR I S NOT APPLICABLE FOR DIALYSIS PATIEN TS. Premium Card Cancellation Clerk ID - PIAYA [id number] 05:39:00 Test Item Value Reference Range Interpretation Comments PARTIAL THROMBOPLASTIN TIME 35.4 seconds 22.5-36.0 (BEAKER) (test code = 760) CBC (HEMOGRAM ONLY)2021-02-07 05:30:00 Test Item Value Reference Range Interpretation Comments WHITE BLOOD CELL COUNT (BEAKER) 5.6 K/ L 3.5-10.5 (test code = 775) RED BLOOD CELL COUNT (BEAKER) 4.31 M/ L 4.63-6.08 L (test code = 761) HEMOGLOBIN (BEAKER) (test code = 12.5 GM/DL 13.7-17.5 L 410) HEMATOCRIT (BEAKER) (test code = 38.2 % 40.1-51.0 L 411) MEAN CORPUSCULAR VOLUME (BEAKER) 88.6 fL 79.0-92.2 (test code = 753) MEAN CORPUSCULAR HEMOGLOBIN 29.0 pg 25.7-32.2 (BEAKER) (test code = 751) MEAN CORPUSCULAR HEMOGLOBIN CONC 32.7 GM/DL 32.3-36.5 (BEAKER) (test code = 752) RED CELL DISTRIBUTION WIDTH 13.8 % 11.6-14.4 (BEAKER) (test code = 412) PLATELET COUNT (BEAKER) (test 216 K/CU MM 150-450 code = 756) MEAN PLATELET VOLUME (BEAKER) 10.1 fL 9.4-12.4 (test code = 754) NUCLEATED RED BLOOD CELLS 0 /100 WBC 0-0 (BEAKER) (test code = 413) [id number] 00:37:00 Test Item Value Reference Range Interpretation Comments PARTIAL THROMBOPLASTIN TIME 139.7 seconds 22.5-36.0 H (BEAKER) (test code = 760) [id number] 17:29:00 Test Item Value Reference Range Interpretation Comments PARTIAL THROMBOPLASTIN TIME 39.7 seconds 22.5-36.0 H (BEAKER) (test code = 760) Hemoglobin [id number] 14:06:00 Test Item Value Reference Range Interpretation Comments Hemoglobin A1C (test code = 4548-4) 5.1 % 4.3-6.1 Lab Interpretation (test code = Normal 51858-8) [facility] CenterHEMOGLOBIN [id number] 14:06:00 Test Item Value Reference Range Interpretation Comments HEMOGLOBIN A1C (BEAKER) (test code = 5.1 % 4.3-6.1 368) [id number] 12:57:00 Test Item Value Reference Range Interpretation Comments PARTIAL THROMBOPLASTIN TIME 197.1 seconds 22.5-36.0 HH (BEAKER) (test code = 760) Lipid [id number] 09:02:00 Test Item Value Reference Range Interpretation Comments Triglycerides (test 117 mg/dL code = 2571-8) Cholesterol (test code 284 mg/dL = 2093-3) HDL (test code = 53 mg/dL 2085-9) LDL Calculated (test 208 mg/dL code = 53657-2) MICHELLE (test code = MICHELLE) Triglyceride Reference Range: Low Risk <150 Borderline 150-199 High Risk 200-499 Very High Risk >=500 Cholesterol Reference Range: Low Risk <200 Borderline 200-239 High Risk >240 HDL Cholesterol Reference Range: Low Risk >=60 High Risk <40 LDL Cholesterol Reference Range: Optimal <100 Near Optimal 100-129 Borderline 130-159 High 160-189 Very High >=190 Premium Card Cancellation Clerk OLVIN [place] [facility] CenterLIPID [id number] 09:02:00 Test Item Value Reference Range Interpretation Comments TRIGLYCERIDES (BEAKER) (test code = 117 mg/dL 540) CHOLESTEROL (BEAKER) (test code = 284 mg/dL 631) HDL CHOLESTEROL (BEAKER) (test code 53 mg/dL = 976) LDL CHOLESTEROL CALCULATED (BEAKER) 208 mg/dL (test code = 633) Triglyceride Reference Range: Low Risk <150 Borderline 150-199 High Risk 200-499 Very High Risk >=500Cholesterol Reference Range: Low Risk <200 Borderline 200-239 High Risk >240HDL Cholesterol Reference Range: Low Risk >=60 High Risk <40LDL Cholesterol Reference Range: Optimal <100 Near Optimal 100-129 Borderline 130-159 High 160-189 Very High >=190 Premium Card Cancellation Clerk ID - [id number] 05:12:00 Test Item Value Reference Range Interpretation Comments PARTIAL THROMBOPLASTIN TIME 82.1 seconds 22.5-36.0 H (BEAKER) (test code = 760) BASIC METABOLIC [id number] 05:12:00 Test Item Value Reference Range Interpretation Comments SODIUM (BEAKER) 135 meq/L 136-145 L (test code = 381) POTASSIUM (BEAKER) 3.9 meq/L 3.5-5.1 (test code = 379) CHLORIDE (BEAKER) 97 meq/L 98-107 L (test code = 382) CO2 (BEAKER) (test 26 meq/L 22-29 code = 355) BLOOD UREA NITROGEN 13 mg/dL 7-21 (BEAKER) (test code = 354) CREATININE (BEAKER) 1.21 mg/dL 0.57-1.25 (test code = 358) GLUCOSE RANDOM 84 mg/dL 70-105 (BEAKER) (test code = 652) CALCIUM (BEAKER) 9.3 mg/dL 8.4-10.2 (test code = 697) EGFR (BEAKER) (test 58 mL/min/1.73 ESTIMA JAIME GFR IS code = 1092) sq m NOT ACCURATE CREATININE CLEARANCE IN PREDICTING GLOMERULAR FILTRATION RATE . ESTIMATED GFR I S NOT APPLICABLE FOR DIALYSIS PATIEN TS. Premium Card Cancellation Clerk ID - RAFAL [facility]BC (HEMOGRAM ONLY)2021-02-06 04:47:00 Test Item Value Reference Range Interpretation Comments WHITE BLOOD CELL COUNT (BEAKER) 6.6 K/ L 3.5-10.5 (test code = 775) RED BLOOD CELL COUNT (BEAKER) 4.89 M/ L 4.63-6.08 (test code = 761) HEMOGLOBIN (BEAKER) (test code = 14.3 GM/DL 13.7-17.5 410) HEMATOCRIT (BEAKER) (test code = 42.5 % 40.1-51.0 411) MEAN CORPUSCULAR VOLUME (BEAKER) 86.9 fL 79.0-92.2 (test code = 753) MEAN CORPUSCULAR HEMOGLOBIN 29.2 pg 25.7-32.2 (BEAKER) (test code = 751) MEAN CORPUSCULAR HEMOGLOBIN CONC 33.6 GM/DL 32.3-36.5 (BEAKER) (test code = 752) RED CELL DISTRIBUTION WIDTH 13.7 % 11.6-14.4 (BEAKER) (test code = 412) PLATELET COUNT (BEAKER) (test 230 K/CU MM 150-450 code = 756) MEAN PLATELET VOLUME (BEAKER) 9.8 fL 9.4-12.4 (test code = 754) NUCLEATED RED BLOOD CELLS 0 /100 WBC 0-0 (BEAKER) (test code = 413) [id number] 00:11:00 Test Item Value Reference Range Interpretation Comments PARTIAL THROMBOPLASTIN TIME > seconds 22.5-36.0 HH (BEAKER) (test code = 760) PROTHROMBIN [id number] 17:36:00 Test Item Value Reference Range Interpretation Comments PROTIME (BEAKER) 18.5 seconds 11.9-14.2 H (test code = 759) INR (BEAKER) (test 1.57 See_Comment [Automat ed message] code = 370) The system [employer] generated this result transmitted ref erence range: <=5.90. The reference range was not used to int erpret this result as normal/abnormal . RECOMMENDED COUMADIN/WARFARIN INR THERAPY RANGESSTANDARD DOSE: 2.0 - 3.0 Includes: PROPHYLAXIS forvenous thrombosis, systemic embolization; TREATMENT for venous thrombosis and/or pulmonary embolus.HIGH RISK: Target INR is 2.5-3.5 for patients with mechanical heart valves.[id number] 16:49:00 Test Item Value Reference Range Interpretation Comments PARTIAL THROMBOPLASTIN TIME 58.8 seconds 22.5-36.0 H (BEAKER) (test code = 760) [id number] 16:06:00 Test Item Value Reference Range Interpretation Comments PARTIAL THROMBOPLASTIN TIME 120.3 seconds 22.5-36.0 H (BEAKER) (test code = 760) PROTHROMBIN TIME/[id number] 15:54:00 Test Item Value Reference Range Interpretation Comments PROTIME (BEAKER) 17.4 seconds 11.9-14.2 H (test code = 759) INR (BEAKER) (test 1.45 See_Comment [Automat ed message] code = 370) The system [employer] generated this result transmitted ref erence range: <=5.90. The reference range was not used to int erpret this result as normal/abnormal . RECOMMENDED COUMADIN/WARFARIN INR THERAPY RANGESSTANDARD DOSE: 2.0 - 3.0 Includes: PROPHYLAXIS forvenous thrombosis, systemic embolization; TREATMENT for venous thrombosis and/or pulmonary embolus.HIGH RISK: Target INR is 2.5-3.5 for patients with mechanical heart valves.[id number] 13:49:00 Test Item Value Reference Range Interpretation Comments PARTIAL THROMBOPLASTIN TIME > seconds 22.5-36.0 HH (BEAKER) (test code = 760) [id number] 12:37:00 Test Item Value Reference Range Interpretation Comments PARTIAL THROMBOPLASTIN TIME > seconds 22.5-36.0 HH (BEAKER) (test code = 760) Carotid doppler [id number] 07:50:56Ejection FractionSLEH ECHO HEARTLAB MKCKESSON CPACSRight Impression1. There is <50% diameter reduction (approximately 23% by 2-D measurement)in the internal carotid artery with a peak velocity of 38.9/11.0 cm/sec andheterogeneous plaque.2. There is non-occluding plaque in the external carotid artery.3. There is non-occluding plaque in the common carotid artery.4. The vertebral artery flow is antegrade and normal.5. The subclavian artery is within normal limits where visualized.Left Impression1. There is 50-69% diameter reduction (approximately 58% by 2-D measurement)in the internal carotid artery with heterogeneous plaque, a peak velocity of185/40.6 cm/sec and an ICA/CCA peak systolic velocity ratio of 2.3.2. There is non- occluding plaque in the external carotid artery.3. There is non-occluding plaque in the common carotid artery.4. The vertebral artery flow is antegrade and normal.5. The subclavian artery is patent with a velocity of 199 cm/s. Conclusions Summary Carotid duplex scanning and color flow imaging were performed bilaterally. The exam was technically difficult due to patient m ovement. The right internal carotid artery had <50% hemodynamically insignificant stenosis (approximately 23% by 2-D measurement) with heterogeneous plaque. The left internal carotid artery had 50-69% hemodynamically significant stenosis (approximately 58% by 2-D measurement) with heterogeneous plaque. The vertebral artery flow was antegrade and normal bilaterally. The subclavian arteries were patent with normal flow bilaterally where visualized. Signature Velocities are measured in cm/s ; Diameters are measured in cm Carotid Right Measurements+ +----+----+---- -+ + + +!Location !PSV !EDV !Angle!%Stenosis 2D!%StenosisDoppler!Tortuosity !+ +----+----+-----+ + + +!Pr ox CCA !86.2!11.1!60 ! ! ! !+ +----+----+--- --+ + + +!Dist CCA !72.7!11.7!60 ! ! ! !+ +----+----+-----+ + + +!Pr ox ICA !38.9!11 !60 !23% !<50% ! !+ +----+---- +-----+ + + +!Dist ICA !140 !18.9!0 ! ! ! !+ +----+----+-----+ + + + !Prox ECA !36.3!3.54!0 ! ! ! !+ +----+--- -+-----+ + + +!Vertebral !45.1!8.79!60 ! ! ! !+ +----+----+-----+ + + +!Prox Subclavian!144 ! !60 ! ! ! !+ +----+----+-----+ + + + - There is antegrade vertebral flow noted on the right side. - Additional Measurements:ICAPSV/CCAPSV 1.93.ICAEDV/CCAEDV 1.7. Carotid Left Measure ments+ +----+----+-----+ + + +!Location !PSV !EDV !Angle!%Stenosis 2D!%Stenosis Doppler!Tortuosity !+ +----+----+-----+ + + +!Prox CCA !134 !11 !60 ! ! ! !+ +----+----+-----+ + + +!Di st CCA !80.3!9.38!60 ! ! ! !+ +----+----+-----+ -+ + +!Prox ICA !185 !40.6!60 !58% !50-69% ! !+ +----+----+-----+ + + +!Di st ICA !70.7!9.43!0 ! ! ! !+ +----+----+-----+ --+ + +!Prox ECA !75.6!10.6!60 ! ! ! !+ +----+----+-----+ + + +!Ve rtebral !44.4!9.43!60 ! ! ! !+ +----+----+-----+--------- ---+ + +!Prox Subclavian!199 ! !60 ! ! ! !+ +----+----+-----+ + + + - There is antegrade vertebral flow noted on the left side. - Additional Measurements:ICAPSV/CCAPSV 2.3.ICAEDV/CCAEDV 3.69. Interface, External Ris In - 02/05/2021 7:51 AM CDTPV LAB - Carotid Duplex Study Demographics Patient Name PINEDA MCKEON Date of Study 02/04/2021 DOROTEO Hodan RN [id number] Age 75 Visit Number [id number] Gender Male Accession Number [id number] Date of 1945 Referring Kevon Moon Room Number 2C23 Physician [place] Customer Engagement Representative Geovanni Warner Interpreting Sangeeta Shaw Physician ProcedureType of Study: Cerebral: Carotid, CAROTID DOPPLER, BILATERAL. Indications for Study:Carotid stenosis .Patient Status:TODAY.Study Location:Portable.Technical Quality:Technically Difficult.Risk FactorsHistory of Disease+ +----+ -----+!Diagnosis !Date!Comments !+ -+----+ +!History/Risk ! !PAD, COPD, HTN, HLD, CAD, AAA, S/p TAVR, !!Factors: ! !Seizures, Factor V !+ +----+ +Imp ressionsRight Impression1. There is <50% diameter reduction (approximately 23% by 2-D measurement)in the internal carotid artery with a peak velocity of 38.9/11.0 cm/sec andheterogeneous plaque.2. There is non-occluding plaque in the external carotid artery.3. There is non-occluding plaque in the common carotid artery.4. The vertebral artery flow is antegrade and normal.5. The subclavian artery is within normal limits where visualized.Left Impression1. There is 50- 69% diameter reduction (approximately 58% by 2-D measurement)in the internal carotid artery with heterogeneous plaque, a peak velocity of185/40.6 cm/sec and an ICA/CCA peak systolic velocity ratio of 2.3.2. There is non-occluding plaque in the external carotid artery.3. There is non-occluding plaque in the common carotid artery.4. The vertebral artery flow is antegrade and normal.5. The subclavian artery is patent with a velocity of 199 cm/s. Conclusions Summary Carotid duplex scanning and color flow imaging were performed bilaterally. The examwas technically difficult due to patient movement. The right internal carotid artery had <50% hemodynamically insignificant stenosis (approximately 23% by 2-D measurement) with heterogeneous plaque.The left internal carotid artery had 50-69% hemodynamically significant stenosis (approximately 58% by 2-D measurement) with heterogeneous plaque. The vertebral artery flow was antegrade and normal bilaterally. The subclavian arteries were patent with normal flow bilaterally where visualized. Signature Velocities are measured in cm/s ; Diameters are measured in cmCarotid Right Me asurements+ +----+----+-----+ + +------ -----+!Location !PSV !EDV !Angle!%Stenosis 2D!%Stenosis Doppler!Tortuosity !+ +----+----+-----+------- -----+ + +!Prox CCA !86.2!11.1!60 ! ! ! !+ +----+----+-----+ + + +!Di st CCA !72.7!11.7!60 ! ! ! !+ +----+----+-----+------ ------+ + +!Prox ICA !38.9!11 !60 !23% !<50% ! !+ +----+----+-----+ + + +!Di st ICA !140 !18.9!0 ! ! ! !+ +----+----+-----+-- + + +!Prox ECA !36.3!3.54!0 ! ! ! !+ +----+----+-----+ + + +!Ve rtebral !45.1!8.79!60 ! ! ! !+ +----+----+-----+- + + +!Prox Subclavian!144 ! !60 ! ! ! !+ +----+----+-----+ + + + - There is antegrade vertebral flow noted on the right side. - Additional Measurements:ICAPSV/CCAPSV 1.93.ICAEDV/CCAEDV 1.7.Carotid Left Measurements+ +----+----+-----+ + -----+ +!Location !PSV !EDV !Angle!%Stenosis 2D!%Stenosis Doppler!Tortuosity !+------ ---------+----+----+-----+ + + +!Prox CCA !134 !11 !60! ! ! !+ +----+----+-----+ + ------+ +!Dist CCA !80.3!9.38!60 ! ! ! !+----- +----+----+-----+ + + +!Prox ICA !185 !40.6!60 !58% !50-69% ! !+ +----+----+-----+ + -------+ +!Dist ICA !70.7!9.43!0 ! ! ! !+---- +----+----+-----+ + + +!Prox ECA !75.6!10.6!60 ! ! ! !+ +----+----+-----+ +--------- --------+ +!Vertebral !44.4!9.43!60 ! ! ! !+--- +----+----+-----+ + + +!Prox Subclavian!199 ! !60 ! ! ! !+ +----+----+-----+ + + + - There is antegrade vertebral flow noted on the left side. - Additional Raysa surements:ICAPSV/CCAPSV 2.3.ICAEDV/CCAEDV 3.69.[facility] Pulmonary Funct Lab bedside [id number] 07:50:00Darren Roy, VAT HOUSE LABORER, FOUNDER 02/05/2021 8:00 [facility] PFT CHARTING REPORT Infection Control/Hand Hyg iene procedures followed throughout the encounter with patient: YesPatient Identification Method: Patient name verified on armband, and Medical record on armband, Is the order complete?: Yes Account ID#: [id number] Name: Pineda Mckeon Birthdate: 1945 Age: 75 y.o. Sex: male Admission Date: 02/04/2021 Patient Status: Inpatient Reasons/Symptom for having the Test?: surgical clearance Type of study/treatment ordered by physician: Bedside Spirometry with bronchodilators Lab Results Component Value Date HGB 12.1 (L) 02/05/2021 Ranges: Adult Male 13 - 16.8 g/dl Adult Female 12 - 15 g/dl 6 Minute Walk (read only) 02/05/2021 02/05/2021 02/05/2021 Pulse 74 79 88 SpO2 98 99 - Study Date: 02/05/21 Study Time: 0750 ASSESSMENT History & Physical Mode of Arrival: Testing was performed at patient bedside Pulse: 86 Resp: 18 SPO2: 99 % on RA Pain Assessment Pain:None TESTING/THERAPEUTICS Medications ordered or required for procedure:Albuterol, PT EDUCATION/INSTRUCTIONS Barriers to learning: No known barriers to learning. Learning need identified: Yes, Patient/Family/Guradian was informed of the ordered study by the physician Barri ers to performing study or treatment: Patient has no known disability to perform the study or treatment. DISCHARGE The study was completed in accordance with the physician's order and patient released from the lab without adverse outcome.[facility] 12 [id number] 06:31:26Interface, External Ris In - 02/05/2021 6:31 AM CDTVentricular Rate 63 BPMAtrial Rate 63 BPMP-R Inte rval 170 msQRS Duration 94 msQ-T Interval 456 msQTC Calculation(Bazett) 466 msP [place] 77 degreesR [place] -32 degreesT [place] 52 degreesNormal sinus rhythmLeft axis deviationIncomplete right bundle branch blockSeptal infarct (cited on or before 04-FEB-2021)Abnormal ECGWhen compared with ECG of 04-FEB-2021 13:36,No significant change was foundConfirmed by MD CELSO, ALFIE Wesley ([id number]) on 02/05/2021 6:31:21 [facility] Center[facility] [id number] 05:20:00 Test Item Value Reference Range Interpretation Comments SODIUM (BEAKER) 131 meq/L 136-145 L (test code = 381) POTASSIUM (BEAKER) 3.4 meq/L 3.5-5.1 L (test code = 379) CHLORIDE (BEAKER) 97 meq/L 98-107 L (test code = 382) CO2 (BEAKER) (test 25 meq/L - code = 355) BLOOD UREA NITROGEN 12 mg/dL 7-21 (BEAKER) (test code = 354) CREATININE (BEAKER) 1.11 mg/dL 0.57-1.25 (test code = 358) GLUCOSE RANDOM 84 mg/dL 70-105 (BEAKER) (test code = 652) CALCIUM (BEAKER) 7.9 mg/dL 8.4-10.2 L (test code = 697) EGFR (BEAKER) (test 64 mL/min/1.73 ESTIMA JAIME GFR IS code = 1092) sq m NOT ACCURATE CREATININE CLEARANCE IN PREDICTING GLOMERULAR FILTRATION RATE . ESTIMATED GFR I S NOT APPLICABLE FOR DIALYSIS PATIEN Premium Card Cancellation Clerk ID - PIAYA [id number] 05:02:00 Test Item Value Reference Range Interpretation Comments PARTIAL THROMBOPLASTIN TIME 36.9 seconds 22.5-36.0 H (BEAKER) (test code = 760) CBC (HEMOGRAM ONLY)2021-02-05 04:55:00 Test Item Value Reference Range Interpretation Comments WHITE BLOOD CELL COUNT (BEAKER) 7.0 K/ L 3.5-10.5 (test code = 775) RED BLOOD CELL COUNT (BEAKER) 4.13 M/ L 4.63-6.08 L (test code = 761) HEMOGLOBIN (BEAKER) (test code = 12.1 GM/DL 13.7-17.5 L 410) HEMATOCRIT (BEAKER) (test code = 35.5 % 40.1-51.0 L 411) MEAN CORPUSCULAR VOLUME (BEAKER) 86.0 fL 79.0-92.2 (test code = 753) MEAN CORPUSCULAR HEMOGLOBIN 29.3 pg 25.7-32.2 (BEAKER) (test code = 751) MEAN CORPUSCULAR HEMOGLOBIN CONC 34.1 GM/DL 32.3-36.5 (BEAKER) (test code = 752) RED CELL DISTRIBUTION WIDTH 13.6 % 11.6-14.4 (BEAKER) (test code = 412) PLATELET COUNT (BEAKER) (test 189 K/CU MM 150-450 code = 756) MEAN PLATELET VOLUME (BEAKER) 9.8 fL 9.4-12.4 (test code = 754) NUCLEATED RED BLOOD CELLS 0 /100 WBC 0-0 (BEAKER) (test code = 413) SARS-CoV2/RT-PCR (Asymptomatic ONLY)2021-02-04 23:58:00 Test Item Value Reference Range Interpretation Comments SARS-COV2/RT-PCR Negative Not Detected, (test code = Negative, See 79599-0) external report for linked test SARS-COV-2 [facility] PERFORMING LAB (test code = 13994-3) MICHELLE (test code = Negative result for this MICHELLE) test determines that SARS-CoV-2 RNA was not present in the specimen above the Limit of Detection (LOD). However, Negative results do not preclude SARS-CoV-2 infection and should not be used as the sole basis for treatment or patient management decisions. Negative results must be combined with clinical observations, patient history, and epidemiological information. A false negative result may occur if a specimen is improperly collected, transported or handled. A false negative result should be considered if patient's recent exposures or clinical presentation indicate that COVID-19 (SARS-CoV-2) is likely and diagnostic tests for other causes of illness are negative. Re-testing should be considered in cases of suspected false negatives. The limit of detection for this assay is 800 copies/mL. This SARS CoV-2 test is a real-time RT-PCR test intended for the qualitative detection of nucleic acid from SARS-CoV-2 in a nasopharyngeal swab specimen collected from individuals suspected of COVID-19 by their healthcare provider. This test has not been Food and Drug Administration (FDA) cleared or approved. This is a modified version of an approved Emergency Use Authorization (EUA) and is in the process of review by the FDA. Once authorized by the FDA, the issued EUA will be effective until the declaration that circumstances exist justifying the authorization of the emergency use of in vitro diagnostic tests for detection and/or diagnosis of COVID-19 is terminated under Section 564(b)(2) of the Act or the EUA is revoked under Section 564(g) of the Act. Fact Sheet for Healthcare Providers:https://www.[employer]BOXX[employer]/sites/default/f neelima/product/documents/F act_Sheet_HC_Providers_L zgi_HREG-NcE-4.pdf Fact Sheet for Healthcare Patients:https://www.[employer]us.[employer]/sites/default/fi les/product/documents/Fa ct_Sheet_Patients_Lyra_S ARS-CoV-2.pdf Performing Laboratory:[facility] [place] [address] [facility])2021-02-04 23:58:00 Test Item Value Reference Range Interpretation Comments SARS-COV2/RT-PCR (test Negative Not Detected, Negative, code = 3488899) See external report for linked test SARS-COV-[address] [facility] (test code = 5903953) Negative result for this test determines that SARS-CoV-2 RNA was not present in the specimen above the Limit of Detection (LOD). However, Negative results do not preclude SARS-CoV-2 infection and should not be used as the sole basis for treatment or patient management decisions. Negative results mustbe combined with clinical observations, patient history, and epidemiological information. A false negative result may occur if a specimen is improperly collected, transported or handled. A false negative result should be considered if patient's recent exposures or clinical presentation indicate that COVID-19 (SARS-CoV-2) is likely and diagnostic tests for other causes of illness are negative. Re-testing should be considered in cases of suspected false negatives.The limit of detection for this assay is 800 copies/mL.This SARS CoV-2 test is a real-time RT-PCR test intended for the qualitative detection of nucleic acid from SARS-CoV-2 in a nasopharyngeal swab specimen collected from individuals susp ected of COVID-19 by their healthcare provider.This test has not been Food and Drug Administration (FDA) cleared or approved. This is a modified version of an approved Emergency Use Authorization (EUA) and is in the process of review by the FDA. Once authorized by the FDA, the issued EUA will be effective until the declaration that circumstances exist justifying the authorization of the emergency use of in vitro diagnostic tests for detection and/or diagnosis of COVID-19 is terminated under Section 564(b)(2) of the Act or the EUA is revoked under Section 564(g) of the Act.Fact Sheet for Healthcare Providers:https://www.[employer]com/sites/default/files/product/documents/Fact_Shee v_CW_Tgqrlvrzh_Hyft_HJJZ-SrR-7.pdfFact Sheet for Healthcare Patients:https://www.[employer].com/sites/default/files/product/ documents/Azjr_Nfkws_Xnorffys_Ttjr_ARFX-QjP-2.pdfPerforming Laboratory:[facility], [place] [id number] 23:24:00 Test Item Value Reference Range Interpretation Comments PARTIAL THROMBOPLASTIN TIME 68.5 seconds 22.5-36.0 H (KIMBER) (test code = 760) Antibody [id number] 18:45:00 Test Item Value Reference Range Interpretation Comments ANTIBODY ID (KIMBER) Anti-E (test code = 2253) Antibody Consult SIGNED OUT Anti E caus es RBC (test code = 2479) injury, t ransfuse E negative RBCs.Electronic Signature: Katiuska Hou M.D. 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 Amount - 3 mlHeight: 67 inches Weight: 72.57 kg (160 lbs) BSA: 1.84 m^2 BMI: 25.06 kg/m^2HR: 85 bpm BP: 150/63 mmHg Summary Technicallydifficult exam. The left ventricle is chamber size (by PSLAX dimension) is normal (male - LVIDd 4.2-5.8cm) . All of the LV segments contract normally . Estimated LVEF by qualitative assessment is normal (>60%) . A percutaneous (TAVR) biologic AoV prosthesis is visualized . Mild aortic regurgitation. Prosthetic AR locations(s) are of indeterminate location. Prosthetic AoV systolic gradients are normal . Unable to estimate peak systolic PA pressure; inadequate TR velocity signal. Signature ---- Findings Left Ventricle The left ventricle is chamber size (by PSLAX dimension) is normal (male - LVIDd 4.2-5.8cm) . Normal LVwall thickness. All of the LV segments contract normally . Estimated LVEF by qualitative assessment is normal (>60%) . Left Atrium LA is partially visualized. The left atrium appears normal. Right Ventricle Normal right ventricle structure and function. Right Atrium Normal right atrium. Aortic Valve AoV is partially visualized. A percutaneous (TAVR) biologic AoV prosthesis is visualized . Mild aortic regurgitation. Prosthetic AR locations(s) are of indeterminate location. Prosthetic AoV systolic gradients are normal . Mitral Valve Mild MV leaflet thickening. Mild mitral annular calcification. Tricuspid Valve A trace of tricuspid regurgitation. Unable to estimate peak systolic PA pressure; inadequate TR velocity signal. Pulmonic Valve Normal PV structure and function by limited views and Doppler. Aorta Aortic root size (SInus of Valsalva diameter) is normal . Pericardium No evidence of pericardial effusion. IVC/SVC/PA/PV/Pleural The estimated RA pressure by IVC dynamics 5-10mmHg . Chambers/Structures Left Atrium LA Volume: 27.47 ml LA Area: 11.77 cm^2LA Vol. Index: 15 ml/m^2 Left Ventricle LVIDd: 4.63 cm LVEDV:98.82 ml LV Septum Diastolic: 0.93 cm LV PW Diastolic: 0.85 cm LVOT Diameter: 1.81 cm Right Ventricle RVOT VTI: 17.1 cm Aorta Ao Root S of Yesika.: 2.58 cm Doppler/Quantitative Measurements Mitral Va lve MV Peak E-Wave: 1.01 m/s MV Peak A-Wave: 1.14 m/s E/A Ratio: 0.88 Peak Gradient: 4.06 mmHg Deceleration Time: 314.5 msec MV Sherman. Peak: Aortic Valve Peak Velocity: 1.51 m/s Mean Velocity: 1.18 m/s Peak Gradient: 9.14 mmHg Mean Gradient: 5.83 mmHg AV Area (continuity): 2.02 cm^2 AV VTI: 29.61 cm AV DVI: 0.79 LVOT Peak Velocity: 1.24 m/s Peak Gradient: 6.19 mmHg Mean Velocity: 0.94 m/s Mean Gradient: 3.89 mmHg LVOT Diameter: 1.81 cm LVOT VTI: 23.26 cm LVOT Area: 2.57 cm^2 LVOT SV:59.82 ml LVOTCO: 5.08 l/min LVOT CI: 2.76 l/min/m^2[facility] HospitalPrepare [id number] 15:33:00 Test Item Value Reference Range Interpretation Comments Unit ABO (test code = O Pos 3342359) UNIT NUMBER (test code = [id number] 934-0) Status (test code = 3341253) READY Blood Bank Product (test code RED BLOOD CELLS = 2263) PRODUCT CODE (test code = A5042B78 933-2) CROSSMATCH (test code = 2264) COMPATIBLE [facility] CenterType and screen, [id number] 15:33:00 Test Item Value Reference Range Interpretation Comments ABO/RH AUTOMATED (BEAKER) (test O POSITIVE code = 2260) Ab Scrn (test code = 890-4) POSITIVE ECHO 1 [facility] CenterPROTHROMBIN TIME/[id number] 13:54:00 Test Item Value Reference Range Interpretation Comments PROTIME (BEAKER) 15.9 seconds 11.9-14.2 H (test code = 759) INR (BEAKER) (test 1.29 See_Comment [Automat ed message] code = 370) The system [employer] generated this result transmitted ref erence range: <=5.90. The reference range was not used to int erpret this result as normal/abnormal . RECOMMENDED COUMADIN/WARFARIN INR THERAPY RANGESSTANDARD DOSE: 2.0 - 3.0 Includes: PROPHYLAXIS forvenous thrombosis, systemic embolization; TREATMENT for venous thrombosis and/or pulmonary embolus.HIGH RISK: Target INR is 2.5-3.5 for patients with mechanical heart valves.BASIC METABOLIC [id number] 13:51:00 Test Item Value Reference Range Interpretation Comments SODIUM (BEAKER) 129 meq/L 136-145 L (test code = 381) POTASSIUM (BEAKER) 3.7 meq/L 3.5-5.1 (test code = 379) CHLORIDE (BEAKER) 94 meq/L 98-107 L (test code = 382) CO2 (BEAKER) (test 28 meq/L 22-29 code = 355) BLOOD UREA NITROGEN 14 mg/dL 7-21 (BEAKER) (test code = 354) CREATININE (BEAKER) 1.51 mg/dL 0.57-1.25 H (test code = 358) GLUCOSE RANDOM 105 mg/dL 70-105 (BEAKER) (test code = 652) CALCIUM (BEAKER) 7.9 mg/dL 8.4-10.2 L (test code = 697) EGFR (BEAKER) (test 45 mL/min/1.73 ESTIMA JAIME GFR IS code = 1092) sq m NOT ACCURATE CREATININE CLEARANCE IN PREDICTING GLOMERULAR FILTRATION RATE . ESTIMATED GFR I S NOT APPLICABLE FOR DIALYSIS PATIEN TS. Premium Card Cancellation Clerk ID - [id number] 13:50:00 Test Item Value Reference Range Interpretation Comments PARTIAL THROMBOPLASTIN TIME 32.8 seconds 22.5-36.0 (BEAKER) (test code = 760) RAD, CHEST, 1 VIEW, NON [id number] 13:47:00Reason for exam:->Post-opShould this be performed at the bedside?->Yes [facility]: MCKEONPATRICIA SINGERMaria Isabel SADLER : 1945 Sex: MFINAL REPORT RAD, CHEST, 1 VIEW, NON DEPT INDICATION: Post-op COMPAR RADHA: February 02, 2018 FINDINGS: Portable frontal view of the chest. IMPRESSION: Support Lines: NoneLungs and pleura: No consolidation or effusion. No pneumothorax.Heart and mediastinum: Stable contours. Stable valvular surgical changes.Additional findings: None. Signed: JR Keane Robert MDReport Verified Date/Time: 02/04/2021 13:47:39 Reading Location: [facility] Radiology Reading Room XR chest 1 view portable / [id number] 13:47:00 Interface, External Ris In - 02/04/2021 1:49 PM CDTFINAL REPORT RAD, CHEST, 1 VIEW, NON DEPT INDICATION: Post-op COMPARISON: February 02, 2018 FINDINGS: Portable frontal view of thechest. IMPRESSION: Support Lines: None Lungs and pleura: No consolidation or effusion. No pneumothorax.Heart and mediastinum: Stable contours. Stable valvular surgical changes.Additional findings: None. Signed: JR Keane Robert MDReport Verified Date/Time: 02/04/2021 13:47:39 Reading Location: [facility] Radiology Reading [facility] 13:46:00 Test Item Value Reference Range Interpretation Comments Magnesium (test code = 1.8 mg/dL 1.6-2.6 17539-6) MICHELLE (test code = MICHELLE) Premium Card Cancellation Clerk ID - AAHAMID Lab Interpretation (test Normal code = 32209-6) [facility] 13:46:00 Test Item Value Reference Range Interpretation Comments Phosphorus (test code = 3.5 mg/dL 2.3-4.7 2777-1) MICHELLE (test code = MICHELLE) Premium Card Cancellation Clerk ID - AAHAMID Lab Interpretation (test Normal code = 29525-1) [facility] 13:46:00 Test Item Value Reference Range Interpretation Comments MAGNESIUM (BEAKER) (test code = 1.8 mg/dL 1.6-2.6 627) Premium Card Cancellation Clerk ID - [id number] 13:46:00 Test Item Value Reference Range Interpretation Comments PHOSPHORUS (BEAKER) (test code = 3.5 mg/dL 2.3-4.7 604) Premium Card Cancellation Clerk ID - AAHAMIDCBC with platelet count + automated [id number] 13:29:00 Test Item Value Reference Range Interpretation Comments WBC (test code = 6690-2) 5.7 See_Comment [A utomated message] The system [employer] generated this result transmitted ref erence range: 3.5 - 10 .5 K/L. The refe rence range was not u sed to interpret this result as normal/abnor mal. RBC (test code = 789-8) 4.16 See_Comment L [Au tomated message] The system [employer] generated this result transmitted ref erence range: 4.63 - 6 .08 M/L. The refe rence range was not u sed to interpret this result as normal/abnor mal. MCHC (test code = 786-4) 34.7 See_Comment L [A utomated message] The system [employer] generated this result transmitted ref erence range: 32.3 - 3 6.5 GM/DL. The refe rence range was not u sed to interpret this result as normal/abnor mal. Hematocrit (test code = 35.2 % 40.1-51 L 4544-3) MCV (test code = 787-2) 84.6 fL 79-92.2 MCH (test code = 785-6) 29.3 pg 25.7-32.2 RDW (test code = 788-0) 13.5 % 11.6-14.4 Platelets (test code = 166 See_Comment [Aut omated message] 167-3) The system [employer] generated this result transmitted ref erence range: 150 - 45 0 K/CU MM. The referen ce range was not u sed to interpret this result as normal/abnor mal. MPV (test code = 9.9 fL 9.4-12.4 17768-9) nRBC (test code = 413) 0 See_Comment [Aut omated message] The system [employer] generated this result transmitted ref erence range: 0 - 0 /1 00 WBC. The refere nce range was not u sed to interpret this result as normal/abnor mal. % Neutros (test code = 68 % 429) % Lymphs (test code = 15 % 430) % Monos (test code = 14 % 431) % Eos (test code = 432) 3 % % Baso (test code = 437) 0 % # Neutros (test code = 3.87 See_Comment [Aut omated message] 670) The system [employer] generated this result transmitted ref erence range: 1.78 - 5 .38 K/L. The refe rence range was not u sed to interpret this result as normal/abnor mal. # Lymphs (test code = 0.85 See_Comment L [Auto mated message] 414) The system [employer] generated this result transmitted ref erence range: 1.32 - 3 .57 K/L. The refe rence range was not u sed to interpret this result as normal/abnor mal. # Monos (test code = 0.79 See_Comment [Autom ated message] 415) The system [employer] generated this result transmitted ref erence range: 0.30 - 0 .82 K/L. The refe rence range was not u sed to interpret this result as normal/abnor mal. # Eos (test code = 416) 0.15 See_Comment [Au tomated message] The system [employer] generated this result transmitted ref erence range: 0.04 - 0 .54 K/L. The refe rence range was not u sed to interpret this result as normal/abnor mal. # Baso (test code = 417) 0.02 See_Comment [A utomated message] The system [employer] generated this result transmitted ref erence range: 0.01 - 0 .08 K/L. The refe rence range was not u sed to interpret this result as normal/abnor mal. Immature 1 % 0-1 Granulocytes-Relative (test code = 2801) Lab Interpretation (test Abnormal code = 68840-2) [facility] W/PLT COUNT & AUTO [id number] 13:29:00 Test Item Value Reference Range Interpretation Comments WHITE BLOOD CELL COUNT (BEAKER) 5.7 K/ L 3.5-10.5 (test code = 775) RED BLOOD CELL COUNT (BEAKER) 4.16 M/ L 4.63-6.08 L (test code = 761) HEMOGLOBIN (BEAKER) (test code = 12.2 GM/DL 13.7-17.5 L 410) HEMATOCRIT (BEAKER) (test code = 35.2 % 40.1-51.0 L 411) MEAN CORPUSCULAR VOLUME (BEAKER) 84.6 fL 79.0-92.2 (test code = 753) MEAN CORPUSCULAR HEMOGLOBIN 29.3 pg 25.7-32.2 (BEAKER) (test code = 751) MEAN CORPUSCULAR HEMOGLOBIN CONC 34.7 GM/DL 32.3-36.5 (BEAKER) (test code = 752) RED CELL DISTRIBUTION WIDTH 13.5 % 11.6-14.4 (BEAKER) (test code = 412) PLATELET COUNT (BEAKER) (test 166 K/CU MM 150-450 code = 756) MEAN PLATELET VOLUME (BEAKER) 9.9 fL 9.4-12.4 (test code = 754) NUCLEATED RED BLOOD CELLS 0 /100 WBC 0-0 (BEAKER) (test code = 413) NEUTROPHILS RELATIVE PERCENT 68 % (BEAKER) (test code = 429) LYMPHOCYTES RELATIVE PERCENT 15 % (BEAKER) (test code = 430) MONOCYTES RELATIVE PERCENT 14 % (BEAKER) (test code = 431) EOSINOPHILS RELATIVE PERCENT 3 % (BEAKER) (test code = 432) BASOPHILS RELATIVE PERCENT 0 % (BEAKER) (test code = 437) NEUTROPHILS ABSOLUTE COUNT 3.87 K/ L 1.78-5.38 (BEAKER) (test code = 670) LYMPHOCYTES ABSOLUTE COUNT 0.85 K/ L 1.32-3.57 L (BEAKER) (test code = 414) MONOCYTES ABSOLUTE COUNT (BEAKER) 0.79 K/ L 0.30-0.82 (test code = 415) EOSINOPHILS ABSOLUTE COUNT 0.15 K/ L 0.04-0.54 (BEAKER) (test code = 416) BASOPHILS ABSOLUTE COUNT (BEAKER) 0.02 K/ L 0.01-0.08 (test code = 417) IMMATURE GRANULOCYTES-RELATIVE 1 % 0-1 PERCENT (BEAKER) (test code = 2801) AFB CULTURE + [id number] 20:50:00 Test Item Value Reference Range Interpretation Comments CULTURE (BEAKER) (test No acid-fast bacilli code = 1095) isolated in 42 days AFB SMEAR (BEAKER) No acid fast bacilli (test code = 994) seen AFB CULTURE + [id number] 20:50:00 Test Item Value Reference Range Interpretation Comments CULTURE (BEAKER) (test No acid-fast bacilli code = 1095) isolated in 42 days AFB SMEAR (BEAKER) No acid fast bacilli (test code = 994) seen FUNGUS CULTURE + [id number] 10:14:00 Test Item Value Reference Range Interpretation Comments CULTURE (BEAKER) (test No fungus isolated in code = 1095) 28 days FUNGUS SMEAR (BEAKER) No fungi seen (test code = 1406) FUNGUS CULTURE + [id number] 10:14:00 Test Item Value Reference Range Interpretation Comments CULTURE (BEAKER) (test No fungus isolated in code = 1095) 28 days FUNGUS SMEAR (BEAKER) No fungi seen (test code = 1406) VANCOMYCIN LEVEL, [id number] 05:33:00 Test Item Value Reference Range Interpretation Comments VANCOMYCIN RANDOM (BEAKER) (test 16.9 ug/mL code = 523) Reference Range: No NormalsBASIC METABOLIC [id number] 05:29:00 Test Item Value Reference Range Interpretation [...] NOT APPLICABLE FOR DIALYSIS PATIEN TS. PROTHROMBIN TIME/[id number] 05:21:00 Test Item Value Reference Range Interpretation [...] NOT APPLICABLE FOR DIALYSIS PATIEN TS. ANAEROBIC [id number] 08:59:00 Test Item Value Reference Range Interpretation Comments CULTURE (BEAKER) (test No anaerobes isolated code = 1095) ANAEROBIC [id number] 08:58:00 Test Item Value Reference Range Interpretation Comments CULTURE (BEAKER) (test No anaerobes isolated code = 1095) VANCOMYCIN LEVEL, [id number] 05:18:00 Test Item Value Reference Range Interpretation Comments VANCOMYCIN RANDOM (BEAKER) (test 19.8 ug/mL code = 523) Reference Range: No NormalsPROTHROMBIN TIME/[id number] 04:55:00 Test Item Value Reference Range Interpretation [...] 10.0-20.0 H code = 522) BASIC METABOLIC [id number] 15:13:00 Test Item Value Reference Range Interpretation [...] NOT APPLICABLE FOR DIALYSIS PATIEN TS. PROTHROMBIN TIME/[id number] 06:16:00 Test Item Value Reference Range Interpretation [...] heart valves.While on warfarin.LACTIC ACID, VENOUS, WHOLE [id number] 06:09:00 Test Item Value Reference Range Interpretation Comments LACTATE BLOOD VENOUS (2) (BEAKER) 0.6 mmol/L 0.5-2.2 (test code = 2872) Effective 12/12/2015: Units/Reference Range ChangeNew: 0.5-2.2 mmol/L Previous: 5-20 mg/dLTISSUE [id number] 11:35:00Surgical Pathology Report Case: [id number] Authorizing Provider: Aris Parker MD Collected: 03/23/2018 1136 Ordering Location: [facility] Received: 03/23/2018 1158 PERIOPERATIVE SERVICES Pathologist: Lanie Jaquez MD Specimen: Groin, Right, Right Groin Tissue SOFT TISSUE, RIGHT GROIN, DEBRIDEMENT: - FIBROADIPOSE TISSUE WITH FAT NECROSIS, ACUTE AND CHRONIC INFLAMMATION, AND FOREIGN BODY GIANT CELL REACTION Signing Pathologist Direct Phone Line: [phone] signed by Lanie Jaquez MD on 03/26/2018 at 11:35 [id number] groin tissueThe specimen is received in a formalin-filled container and labeled with the patient's information and labeled "right groin tissue" and consists of a segment of rodríguez-chapman hemorrhagic soft tissue measuring 3 x 1.6 x 0.5 cm. Chief Program Officer sections are submitted A1.CG/pl Performed.SURGICALLY OBTAINED CULTURE + GRAM [id number] 09:47:00 Test Item Value Reference Range Interpretation Comments GRAM STAIN RESULT (BEAKER) <1+ WBCs (test code = 1123) GRAM STAIN RESULT (BEAKER) No organisms seen (test code = 40570) SURGICALLY OBTAINED CULTURE + GRAM [id number] 09:45:00 Test Item Value Reference Interpretation Comments [...] No organisms seen (BEAKER) (test code = 429260) BASIC METABOLIC [id number] 05:17:00 Test Item Value Reference Range Interpretation [...] NOT APPLICABLE FOR DIALYSIS PATIEN TS. PROTHROMBIN TIME/[id number] 05:06:00 Test Item Value Reference Range Interpretation [...] NOT APPLICABLE FOR DIALYSIS PATIEN TS. PROTHROMBIN TIME/[id number] 06:28:00 Test Item Value Reference Range Interpretation [...] valves.While on warfarin.CBC W/PLT COUNT & AUTO [id number] 06:18:00 Test Item Value Reference Range Interpretation [...] (BEAKER) (test code = 2801) VANCOMYCIN LEVEL, [id number] 17:22:00 Test Item Value Reference Range Interpretation Comments VANCOMYCIN TROUGH (BEAKER) (test 14.6 ug/mL 10.0-20.0 code = 522) SPIN/CONCENTRATION [id number] 10:53:00 Test Item Value Reference Range Interpretation Comments CONCENTRATION CHARGED (BEAKER) (test Done code = 2657) BASIC METABOLIC [id number] 07:34:00 Test Item Value Reference Range Interpretation [...] NOT APPLICABLE FOR DIALYSIS PATIEN TS. PROTHROMBIN TIME/[id number] 07:05:00 Test Item Value Reference Range Interpretation [...] (BEAKER) (test code = 2801) BASIC METABOLIC [id number] 06:54:00 Test Item Value Reference Range Interpretation [...] NOT APPLICABLE FOR DIALYSIS PATIEN TS. PROTHROMBIN TIME/[id number] 05:47:00 Test Item Value Reference Range Interpretation [...] PERCENT (BEAKER) (test code = 2801) TISSUE [id number] 16:28:00Surgical Pathology Report Case: [id number] Authorizing Provider: Christian Hdz MD Collected: 02/02/20181941 Ordering Location: [facility] SURFACE BOSS SERVICES Received: 02/03/201813 Pathologist: Sidney Wright MD Specimen: Plaque ARTERY, RIGHT EMERALD, ENDARTERECTOMY:CALCIFIC ATHEROSCLEROTIC PLAQUE WITH EROSION AND ATTACHED ORGANIZING THROMBUS Signing Pathologist Direct Phone Line: [phone] signed by Sidney Wright MDon 02/09/2018 at 4:28 [id number]; [id number] femoral artery plaqueRight femoral artery plaqueThe specimen is received in a formalin-filled container and labeled with the patient's information and labeled "right femoral artery plaque and consists of two calcified fragments of tissue both measuring 2 cm in length ranging in diameter from 0.6 to 1 cm and separate segment of hemorrhagic calcified tissue measuring 2.5 x 1.5 x 1 cm in aggregate. Chief Program Officer sections are submitted A1 for decalcification. CG/pl [id number] 06:08:00 Test Item Value Reference Range Interpretation Comments PHOSPHORUS (BEAKER) (test code = 2.2 mg/dL 2.3-4.7 L 604) [id number] 06:08:00 Test Item Value Reference Range Interpretation Comments MAGNESIUM (BEAKER) (test code = 2.1 mg/dL 1.6-2.6 627) BASIC METABOLIC [id number] 06:08:00 Test Item Value Reference Range Interpretation [...] (BEAKER) (test code = 413) HEMOGLOBIN AND [id number] 11:55:00 Test Item Value Reference Range Interpretation Comments HEMOGLOBIN (BEAKER) (test code = 8.4 GM/DL 13.7-17.5 L 410) HEMATOCRIT (BEAKER) (test code = 28.9 % 40.1-51.0 L 411) [id number] 04:57:00 Test Item Value Reference Range Interpretation Comments PHOSPHORUS (BEAKER) (test code = 2.5 mg/dL 2.3-4.7 604) [id number] 04:57:00 Test Item Value Reference Range Interpretation Comments MAGNESIUM (BEAKER) (test code = 1.7 mg/dL 1.6-2.6 627) BASIC METABOLIC [id number] 04:57:00 Test Item Value Reference Range Interpretation [...] = 413) CBC W/PLT COUNT & AUTO [id number] 15:56:00 Test Item Value Reference Range Interpretation [...] (BEAKER) (test code = 2801) COMPREHENSIVE METABOLIC [id number] 05:49:00 Test Item Value Reference Range Interpretation [...] S NOT APPLICABLE FOR DIALYSIS PATIEN TS. [id number] 05:48:00 Test Item Value Reference Range Interpretation Comments PHOSPHORUS (BEAKER) (test code = 2.9 mg/dL 2.3-4.7 604) [id number] 05:48:00 Test Item Value Reference Range Interpretation Comments MAGNESIUM (BEAKER) (test code = 1.7 mg/dL 1.6-2.6 627) CBC W/PLT COUNT & AUTO [id number] 04:20:00 Test Item Value Reference Range Interpretation [...] (BEAKER) (test code = 2801) VANCOMYCIN LEVEL, [id number] 23:58:00 Test Item Value Reference Range Interpretation Comments VANCOMYCIN TROUGH (BEAKER) (test code < ug/mL 10.0-20.0 L = 522) PROTHROMBIN TIME/[id number] 23:27:00 Test Item Value Reference Range Interpretation Comments PROTIME (BEAKER) (test code = 15.6 seconds 11.7-14.7 H 759) INR (BEAKER) (test code = 370) 1.2 <=5.9 RECOMMENDED COUMADIN/WARFARIN INR THERAPY RANGESSTANDARD DOSE: 2.0 - 3.0 Includes: PROPHYLAXIS forvenous thrombosis, systemic embolization; TREATMENT for venous thrombosis and/or pulmonary embolus.HIGH RISK: Target INR is 2.5-3.5 for patients with mechanical heart valves.[id number] 23:27:00 Test Item Value Reference Range Interpretation Comments FIBRINOGEN LEVEL (BEAKER) (test 276 mg/dl 225-434 code = 658) [id number] 23:27:00 Test Item Value Reference Range Interpretation Comments PARTIAL THROMBOPLASTIN TIME 29.8 seconds 22.5-36.0 (BEAKER) (test code = 760) CBC W/PLT COUNT & AUTO [id number] 23:22:00 Test Item Value Reference Range Interpretation [...] 0-1 PERCENT (BEAKER) (test code = 2801) [id number] 23:21:00 Test Item Value Reference Range Interpretation Comments PHOSPHORUS (BEAKER) (test code = 3.1 mg/dL 2.3-4.7 604) [id number] 23:21:00 Test Item Value Reference Range Interpretation Comments MAGNESIUM (BEAKER) (test code = 1.7 mg/dL 1.6-2.6 627) BASIC METABOLIC [id number] 23:21:00 Test Item Value Reference Range Interpretation [...] APPLICABLE FOR DIALYSIS PATIEN TS. HEPATIC FUNCTION [id number] 23:21:00 Test Item Value Reference Range Interpretation [...] U/L 6-55 347) LACTIC ACID, ARTERIAL, WHOLE [id number] 23:15:00 Test Item Value Reference Range Interpretation Comments LACTATE BLOOD ARTERIAL (2) 1.7 mmol/L 0.5-2.2 (BEAKER) (test code = 2874) Effective 12/12/2015: Units/Reference Range ChangeNew: 0.5-2.2 mmol/L Previous: 5-20 mg/dLRAD, CHEST, 1 VIEW, NON [id number] 23:12:00Reason for exam:- >s/p cardiac surgeryShould this [...] MDReport Verified Date/Time: 02/02/2018 23:12:37 Reading Location: [address] Consult Reading Room Electronicallysigned by: DENZEL HUITRON MD on 02/02/2018 11:12 PMHEMOGLOBIN AND [id number] 23:06:00 Test Item Value Reference Range Interpretation Comments HEMOGLOBIN (BEAKER) (test code = 11.3 GM/DL 13.7-17.5 L 410) HEMATOCRIT (BEAKER) (test code = 37.7 % 40.1-51.0 L 411) CALCIUM, [id number] 22:57:00 Test Item Value Reference Range Interpretation Comments CALCIUM IONIZED (BEAKER) (test 1.02 mmol/L 1.12-1.27 L code = 698) PH, BLOOD (BEAKER) (test code = 7.38 1810) OXYGEN SATURATION, [id number] 22:56:00 Test Item Value Reference Range Interpretation Comments O2 SATURATION (MEASURED) (BEAKER) 72.2 % (test code = 1455) PROTHROMBIN [id number] 19:20:00 Test Item Value Reference Range Interpretation Comments PROTIME (BEAKER) (test code = 17.6 seconds 11.7-14.7 H 759) INR (BEAKER) (test code = 370) 1.5 <=5.9 RECOMMENDED COUMADIN/WARFARIN INR THERAPY RANGESSTANDARD DOSE: 2.0 - 3.0 Includes: PROPHYLAXIS forvenous thrombosis, systemic embolization; TREATMENT for venous thrombosis and/or pulmonary embolus.HIGH RISK: Target INR is 2.5-3.5 for patients with mechanical heart valves.[id number] 19:20:00 Test Item Value Reference Range Interpretation Comments FIBRINOGEN LEVEL (BEAKER) (test 240 mg/dl 225-434 code = 658) [id number] 19:20:00 Test Item Value Reference Range Interpretation Comments PARTIAL THROMBOPLASTIN TIME 33.3 seconds 22.5-36.0 (BEAKER) (test code = 760) PLATELET [id number] 19:00:00 Test Item Value Reference Range Interpretation Comments PLATELET COUNT (BEAKER) (test 149 K/CU MM 150-450 L code = 756) POTASSIUM-STAT [id number] 18:54:00 Test Item Value Reference Range Interpretation Comments POTASSIUM (BEAKER) (test code = 4.2 meq/L 3.6-5.5 379) HEMOGLOBIN-STAT [id number] 18:54:00 Test Item Value Reference Range Interpretation Comments HEMOGLOBIN (BEAKER) (test code = 9.9 g/dL 13.0-16.8 L 410) HEMATOCRIT-STAT [id number] 18:54:00 Test Item Value Reference Range Interpretation Comments HEMATOCRIT (BEAKER) (test code = 411) 29.0 % 40.0-50.0 L BLOOD GAS, [id number] 18:54:00 Test Item Value Reference Range Interpretation [...] C (test code = 1818) SODIUM NA-STAT [id number] 18:54:00 Test Item Value Reference Range Interpretation Comments SODIUM (BEAKER) (test code = 381) 133 meq/L 135-148 L GLUCOSE-STAT [id number] 18:54:00 Test Item Value Reference Range Interpretation Comments GLUCOSE RANDOM (BEAKER) (test code 134 mg/dL 70-110 H = 652) HGB/HCT (H&H) - STAT [id number] 18:54:00 Test Item Value Reference Range Interpretation Comments HEMOGLOBIN (BEAKER) (test code = 9.9 GM/DL 13.0-16.8 L 410) HEMATOCRIT (BEAKER) (test code = 29.0 % 40.0-50.0 L 411) CALCIUM, [id number] 18:54:00 Test Item Value Reference Range Interpretation Comments CALCIUM IONIZED (BEAKER) (test 1.03 mmol/L 1.12-1.27 L code = 698) PH, BLOOD (BEAKER) (test code = 7.37 1810) CALCIUM, [id number] 18:13:00 Test Item Value Reference Range Interpretation Comments CALCIUM IONIZED (BEAKER) (test 1.02 mmol/L 1.12-1.27 L code = 698) PH, BLOOD (BEAKER) (test code = 7.36 1810) [id number] 17:42:00 Test Item Value Reference Range Interpretation Comments ACTIVATED CLOTTING TIME 279 sec TEST ED AT [place] [address] ([facility]) (test code = [facility] Kimberli [place] [address]) [address] [id number] 17:42:00 Test Item Value Reference Range Interpretation Comments ACTIVATED CLOTTING TIME 224 sec TEST ED AT [place] [address] ([facility]) (test code = [place] [address]) [address] [id number] 17:42:00 Test Item Value Reference Range Interpretation Comments ACTIVATED CLOTTING TIME 158 sec TEST ED AT [place] [address] ([facility]) (test code = [place] [address]) [address] HGB/HCT (H&H) - STAT [id number] 16:30:00 Test Item Value Reference Range Interpretation Comments HEMOGLOBIN (BEAKER) (test code = 9.9 GM/DL 13.0-16.8 L 410) HEMATOCRIT (BEAKER) (test code = 29.0 % 40.0-50.0 L 411) POTASSIUM-STAT [id number] 16:30:00 Test Item Value Reference Range Interpretation Comments POTASSIUM (BEAKER) (test code = 3.7 meq/L 3.6-5.5 379) SODIUM NA-STAT [id number] 16:30:00 Test Item Value Reference Range Interpretation Comments SODIUM (BEAKER) (test code = 381) 134 meq/L 135-148 L GLUCOSE-STAT [id number] 16:30:00 Test Item Value Reference Range Interpretation Comments GLUCOSE RANDOM (BEAKER) (test code 105 mg/dL 70-110 = 652) [id number] 16:17:00 Test Item Value Reference Range Interpretation Comments ACTIVATED CLOTTING TIME 301 [address] [facility] 67[address] (BEAKER) (test code = [place] [address]) [address] BLOOD GAS, [id number] 16:16:00 Test Item Value Reference Range Interpretation [...] (test 37.0 C code = 1818) CALCIUM, [id number] 16:11:00 Test Item Value Reference Range Interpretation Comments CALCIUM IONIZED (BEAKER) (test 1.09 mmol/L 1.12-1.27 L code = 698) PH, BLOOD (BEAKER) (test code = 7.42 1810) MR, MRA, EXTREMITY, LOWER, WITHOUT FOLLOW, WITH [id number] 17:43:00 Bilateral extremitiesChristian Hdz MD [facility] FACP [facility]dz MD [facility] FACP [facility] at [facility] WAURIKAlinical Professor [facility] CenterCo Education Specialist of PVD Services at [facility]/Melba of Peripheral Vascular Medicine at [place] [id number] [place], [place] [email or web address] REPORT MRA of the lower [...] reconstruction was performed by an independent workstation ([employer]). Please refer to the contrast sheetscanned in [...] CT scan. The proximal abdominal aorta is [place]. The celiac axis, SMA are patent with [...] coil embolisation procedure as per EPIC. The [place] left external iliac artery and the left [...] centimeters of the left SFA could be [place]. However, there is likely a left femoral [...] posterior tibial artery. In the right, the [place] right SFA is seen to be occluded. [...] though thereafter, it is occluded. 4. The [place] left SFA is likely occluded and a left femoral to distal popliteal bypass graft is identified that is patent with no proximal or distal anastomotic stenosis. Essentially three-vessel runoff is seen in the left lower extremity. 5. In the right, the [place] right SFA is o ccluded. It appears [...] MDReport Verified Date/Time: 01/28/2018 17:43:09 Reading Location: [place] [address] Cardiology MRI C METABOLIC [id number] 07:36:00 Test Item Value Reference Range Interpretation [...] 0-0 (BEAKER) (test code = 413) PROTHROMBIN [id number] 14:15:00 Test Item Value Reference Range Interpretation [...] valves.Within 24 hours, if on CoumadinBASIC METABOLIC [id number] 06:41:00 Test Item Value Reference Range Interpretation [...] (BEAKER) (test code = 413) BLOOD GAS, [id number] 10:39:00 Test Item Value Reference Range Interpretation [...] code = 1819) 46.0 % SODIUM NA-STAT [id number] 10:39:00 Test Item Value Reference Range Interpretation Comments SODIUM (BEAKER) (test code = 381) 131 meq/L 135-148 L POTASSIUM-STAT [id number] 10:39:00 Test Item Value Reference Range Interpretation Comments POTASSIUM (BEAKER) (test code = 3.1 meq/L 3.6-5.5 L 379) GLUCOSE-STAT [id number] 10:39:00 Test Item Value Reference Range Interpretation Comments GLUCOSE RANDOM (BEAKER) (test code 121 mg/dL 70-110 H = 652) HGB/HCT (H&H) - STAT [id number] 10:39:00 Test Item Value Reference Range Interpretation Comments HEMOGLOBIN (BEAKER) (test code = 8.1 g/dL 13.0-16.8 L 410) HEMATOCRIT (BEAKER) (test code = 24.0 % 40.0-50.0 L 411) [id number] 10:10:00 Test Item Value Reference Range Interpretation Comments ACTIVATED CLOTTING TIME 224 [address] ED [address] [facility] 6720 (BEAKER) (test code = [place] [address]) [address] CBC (HEMOGRAM ONLY)2017-12-05 06:51:00 Test Item Value [...] (BEAKER) (test code = 413) BASIC METABOLIC [id number] 06:44:00 Test Item Value Reference Range Interpretation [...] S NOT APPLICABLE FOR DIALYSIS PATIEN TS. [id number] 12:39:00 Test Item Value Reference Range Interpretation Comments ACTIVATED CLOTTING TIME 136 sec TEST ED AT [place] [address] ([facility]) (test code = [place] [address]) [id number] 11:51:00 Test Item Value Reference Range Interpretation Comments ACTIVATED CLOTTING TIME 147 sec TEST ED AT [place] [address] ([facility]) (test code = [place] [address]) [id number] 09:21:00 Test Item Value Reference Range Interpretation Comments ACTIVATED CLOTTING TIME 213 sec TEST ED AT [place] [address] ([facility]) (test code = [place] [address]) [id number] 08:58:00 Test Item Value Reference Range Interpretation Comments ACTIVATED CLOTTING TIME 191 sec TEST ED AT [place] [address] ([facility]) (test code = [place] [address]) [id number] CT, CTA [id number] 11:56:00Addendum BeginsREPORT STATUS:A Addendum: The images were reviewed with Dr. Hdz. There is a missing dictation, specifically, despite the aortic bypass surgery the [place] left common iliac artery is still patent [...] MDReport Verified Date/Time: 11/27/2017 11:56:33 Reading Location: [facility] P047 Cardiology MRIAddendum EndsAddendum BeginsREPORT STATUS:A ADDENDUM: [...] MDReport Verified Date/Time: 11/26/2017 18:03:42 Reading Location: [facility] B1 P048 Angio Body Reading RoomAddendum EndsFINAL REPORT [...] takeoff of the left renal artery with jkhp-hf-ovhhawbc stenosis identified. Arch vessel branching pattern is [...] mm, respectively with m ild tortuosity and gmbb-tx-mxybcxun calcific atherosclerosis present. Right iliac limb is [...] dictated, however, the ordering physician is the PIPE PRODUCTION WORKER LOG [employer] of the [facility] and therefore no recommendation would be necessary. [...] An addendum will be dictated by the Licensed Midwife Radiologist regarding the nonvascular findings. Signed: Juwan Ramirez MDReport Verified Date/Time: 11/26/2017 16:25:25 Reading Location: [place] [address], CTA, [id number] 11:56:00Addendum BeginsREPORT STATUS:A Addendum: The images were reviewed with Dr. Reinier staples. There is a missing dictation, specifically, despite the aortic bypass surgery the [place] left common iliac artery is still patent [...] MDReport Verified Date/Time: 11/27/2017 11:56:33 Reading Location: [place] [address] Cardiology MRIAddendum EndsAddendum BeginsREPORT STATUS:A ADDENDUM: Study [...] MDReport Verified Date/Time: 11/26/2017 18:03:42 Reading Location: [place] [id number] Angio Body Reading RoomAddendum EndsFINAL REPORT CT [...] takeoff of the left renal artery with dgud-yx-ampna ate stenosis identified. Arch vessel branching pattern [...] 8.2 mm, respectively with mild tortuosity and uicn-zl-miqnvbif calcific atherosclerosis present. Right iliac limb is [...] dictated, however, the ordering physician is the PIPE PRODUCTION WORKER LOG RAFTER of the [facility] and therefore no recommendation would be necessary. [...] An addendum will be dictated by the Licensed Midwife Radiologist regarding the nonvascular findings. Signed: Juwan Ramirez MDReport Verified Date/Time: 11/26/2017 16:25:25 Reading Location: [place] [address] Cardiology MRI B-TYPE NATRIURETIC FACTOR (BNP)2017-11-26 18:03:00 Test Item Value Reference Range Interpretation Comments B-TYPE NATRIURETIC PEPTIDE (BEAKER) 142 pg/mL 0-100 H (test code = 700) COMPREHENSIVE METABOLIC [id number] 17:56:00 Test Item Value Reference Range Interpretation [...] NOT APPLICABLE FOR DIALYSIS PATIEN TS. PROTHROMBIN [id number] 17:33:00 Test Item Value Reference Range Interpretation [...] 0-1 PERCENT (BEAKER) (test code = 2801) [id number] 12:34:00 Test Item Value Reference Range Interpretation Comments POC-CREATININE 1.1 mg/dL 0.6-1.[address] [facility] 67[address] ([facility]) [facility] [place] [facility] = [facility] [address] POC-EGFR (AKER) 65 mL/min/1.73M2 (test code = 1860) [id number] 06:22:001.08[facility] BejcwmgGUCABRVVDK8313-96-35 06:22:00 Test Item Value Reference Range Interpretation Comments PT (test code = PT) 14.2 s 12.0-14.7 [facility] LksjqdjCDQMJVXXNY6663-16-98 16:33:001.09[facility] 2016-05-28 16:33:00 Test Item Value Reference Range Interpretation Comments PTT (test code = PTT) 27.7 s 22.9-35.8 [facility] QfszkzwHICWMYIXVP3912-42-68 16:33:00 Test Item Value Reference Range Interpretation Comments PT (test code = PT) 14.3 s 12.0-14.7 [facility] TizuorhQTTEAJSMEA9021-60-33 16:33:99854Unernbkm HermannHEMATOLOGY 2016-05-28 16:33:008.4[facility] XmnxkgzTGCEQAVIJY0347-07-51 16:33:0033.3[facility] JlvbcliPKLLZOEVUZ9284-55-14 16:33:0011.6[facility] XryoemvFMZSXTFFJM1051-02-85 16:33:00 Test Item Value Reference Range Interpretation Comments MCH (test code = MCH) 29.6 pg 27.0-31.0 [facility] XirdexhACAARFCYWW0864-79-68 16:33:0015.0[facility]annHEMATOLOGY 2016-05-28 16:33:0088.9[facility] IqmuqvqLYMJKFQOXY6532-76-31 16:33:0035.0[facility] CngibvjRLYGLCUHSM3820-73-45 16:33:003.94[facility] PwgzgmtRVQHJWKZIB9363-04-08 16:33:0011.4[facility] PhdlgjjNAUOZGZPHD4303-88-76 16:33:001.3[facility] OAGFZQQXSZ5462-58-43 16:33:008.9[facility] KppehpjWJOAWIQBHM6008-75-71 16:33:001.2 [facility] TtjkcwmZLDYOASLQS3734-77-06 16:33:000.1[facility]annHEMATOLOGY 2016-05-28 16:33:000.1[facility] VlyaqecEPCEZMYMWS6177-04-52 16:33:000.5[facility] CsfbfteXWILFYDLVQ6602-05-69 16:33:0011.5[facility] WvxurkpETVNYYRKSV7689-59-04 16:33:0077.6[facility] LpkvygnMSFELXBUML6724-45-01 16:33:0010.3[facility] CHEM TIPAS6433-25-46 09:17:0089[facility] HermannCHEM JCXKY7684-98-22 09:17:73074 [facility]annCHEM GNLBH2165-03-80 09:17:000.80[facility]annCHEM PANEL 2016-05-27 09:17:009[facility]annCHEM DLTWA1809-66-52 09:17:81443Fadkbmkx HermannCHEM SJIFI2088-46-50 09:17:003.9[facility]annCHEM KLDGS4837-06-29 09:17:0022[facility]annCHEM TZPCS2425-62-78 09:17:71676Risfyzzh HermannCHEM JPEWJ5096-71-00 09:17:008.0[facility]annCHEM KUWCV9373-92-52 09:17:0018.9 [facility]annCHE[facility] AEZRT8920-92-82 09:17:002.3[facility]annCHEM PANEL 2016-05-27 09:17:001.7[facility] VpldkifSMQDEFVXQR1579-16-69 09:17:007.2[facility] RfecjonWOYUCKRYKU8451-86-90 09:17:007.5[facility] MimmzdrSVMAJSYUKS8984-60-94 09:17:0085.1[facility] SdozaseCVHSOTPMHC7896-04-99 09:17:009.0[facility] FKUFZLWCWM6833-15-74 09:17:000.2[facility] CdwsgnlXSYMHJPABV4109-29-90 09:17:000.8 [facility] YtdnnphNMZXDCYVQT4228-52-35 09:17:000.8[facility]annHEMATOLOGY 2016-05-27 09:17:0088.5[facility] CbfcsrgFTTZJHJQVQ8373-72-70 09:17:0031.9[facility] RcctkyfPIHXNKLIRK1443-12-76 09:17:0011.0[facility] PmdqphsIVOYBCZXWX4673-27-34 09:17:003.61[facility] UzmxbyaGIDIOCLUPM2743-75-74 09:17:00 Test Item Value Reference Range Interpretation Comments MCH (test code = MCH) 30.6 pg 27.0-31.0 [facility] PftpfxpCAANMWWDGF0003-75-83 09:17:0010.6[facility]annHEMATOLOGY 2016-05-27 09:17:23539Mjptnwls EjwjffbMPTQPHNNDD1011-14-63 09:17:0014.7[facility] IgxebcaBVKYYGNBWU8957-72-90 09:17:0034.6[facility] OcxtzwhRXPYUTLVNX9176-10-42 09:17:009.3[facility] HermannPARATHYROID IABEXNO4089-02-35 09:17:000.99[facility] HermannPARATHYROID XXYBAYZ2644-68-53 09:17:001.02[facility] HermannCARDIAC ENZYMES 2016-05-26 05:43:00<0.02[facility] HermannCARDIAC ONSPXTM4211-91-91 05:43:0050 [facility]annCHEM XYISR5761-21-72 05:43:002.1[facility] HermannCHEM PANEL 2016-05-26 05:43:0088[facility] HermannCHEM OURWV8119-81-25 05:43:0023[facility] HermannCHEM FLDZH6143-64-64 05:43:87060Otnbfmkg HermannCHEM XMEGG7096-76-94 05:43:007.8[facility] HermannCHEM IOBLW1491-16-84 05:43:0016.2[facility] HermannCHEM NEZPO6676-98-15 05:43:60881Bqtgpkyc HermannCHEM BIPZK0813-50-09 05:43:0078 [facility]annCHEM XNPLD3878-19-71 05:43:009[facility] HermannCHEM PANEL 2016-05-26 05:43:004.2[facility] HermannCHEM WPEGL6859-08-15 05:43:000.81[facility]annCHEM IHBDW9216-22-63 05:43:003.3[facility] DizniupQRLNYIHHJX9362-67-52 05:43:0034.6[facility] UietrjkDAVFISZUUQ9507-90-60 05:43:0014.1[facility] WHOJJTCXTF8808-12-79 05:43:003.69[facility] LqdvbucOKZKFVTEZU5174-28-95 05:43:00 10.1[facility] OqkhmksYQUNEYIUPH6093-53-92 05:43:009.0[facility]annHEMATOLOGY 2016-05-26 05:43:58438[place] ZxgztdoQDHOEIVBIR6198-54-59 05:43:00 Test Item Value Reference Range Interpretation Comments MCH (test code = MCH) 30.3 pg 27.0-31.0 [facility] LuaeodvHRAEOSPNWY2048-57-81 05:43:0087.7[facility]annHEMATOLOGY 2016-05-26 05:43:0032.4[facility] AvjwykeVNQUASLCHF5108-34-51 05:43:0011.2[facility] HggcwejOSUHXSIOQE8147-72-69 05:43:000.2[facility] ScuipnqRWATVFCABQ7034-37-16 05:43:00See Note (05/26/16 12:43 AM)[facility] RfqqcmaKLZLUXKSFM3685-41-05 05:43:0015.5[facility] HzivhddFPKHJPWXUY1440-70-75 05:43:00 Test Item Value Reference Range Interpretation Comments Max Amp (test code = Max Amp) 75.6 mm 50.0-70.0 [facility] FvitubxWTCKAVKTTG8457-79-79 05:43:005.3[facility] HermannHEMATOLOGY 2016-05-26 05:43:00 Test Item Value Reference Range Interpretation Comments K-time (test code = K-time) 0.8 min 1.0-3.0 [facility] NfahkknZXNXJXOHMN0964-33-31 05:43:00 Test Item Value Reference Range Interpretation Comments Angle (test code = Angle) 78.6 degrees 53.0-72.0 [facility] AtqsqwnJDGLTCHPCU1062-49-25 05:43:00 Test Item Value Reference Range Interpretation Comments R-time (test code = R-time) 2.8 min 5.0-10.0 [facility] NqvhsqoNAOKKAQAIK6760-92-58 05:43:0010.1[facility] HermannHEMATOLOGY 2016-05-26 05:43:0013.2[facility] DnrqgalMZRGPMBOOM2949-65-58 05:43:007.7[facility] JnaobwdJNJJMBCXBI2012-99-24 05:43:000.4[facility] VlhvfupKZGCUTXBKS8013-53-75 05:43:000.1[facility] GzbbvgmOVHCYWKDSR3057-79-57 05:43:001.0[facility] KVHWDHPJXP3424-32-54 05:43:001.3[facility] ZmvwoyxYFREAVSAVC6418-50-48 05:43:00 76.2[facility] HermannPARATHYROID TRPVYEP7631-75-82 05:43:001.11[facility] PARATHYROID NTQRKWJ3739-54-16 05:43:001.08[facility] HermannCHEM SJEDL7229-47-26 21:31:0080[facility] HermannCHEM AJTUH9718-06-55 21:31:0015.3[facility] HermannCHEM MDTVO4891-93-66 21:31:0025[facility] HermannCHEM GCZNR4747-97-73 21:31:007.9 [facility] HermannCHEM ZFMIT5295-47-55 21:31:85219Sgmudkyh HermannCHEM PANEL 2016-05-25 21:31:004.3[facility] HermannCHEM QLSWB8974-71-52 21:31:88671Wnrrbfmy HermannCHEM JNQHE0376-38-98 21:31:000.94[facility] HermannCHEM CVQBU7397-06-01 21:31:56702Vkshurop HermannCHEM KRMPY8666-28-05 21:31:008[facility] KDMWLLATPJ1989-10-31 21:31:001.19[facility] TohwbsgNJLDHIUKDI6434-11-93 21:31:00 Test Item Value Reference Range Interpretation Comments PT (test code = PT) 15.4 s 12.0-14.7 [facility] MltnoxsHLWKLCHENQ9621-61-50 21:31:00 Test Item Value Reference Range Interpretation Comments PTT (test code = PTT) 34.1 s 22.9-35.8 [facility] HermannPARATHYROID OYVLUVL2740-32-02 06:49:001.07[facility] PARATHYROID PMIYHFC3502-37-31 06:49:001.04[facility] HermannCARDIAC ENZYMES 2016-05-25 06:47:00<0.02[facility] HermannCARDIAC FRBNRBO8041-18-79 06:47:0057 [facility] HermannCHEM QZEGN4105-28-59 06:47:001.1[facility] HermannCHEM PANEL 2016-05-25 06:47:000.4[facility] HermannCHEM PMEGO6701-03-20 06:47:000.6[facility] HermannCHEM FWDGF2651-95-93 06:47:000.2[facility] HermannCHEM MKEIS6466-66-82 06:47:0013[facility] HermannCHEM ADGEP2919-95-14 06:47:45748Keuntvgx HermannCHEM TIEMA7673-60-99 06:47:002.7[facility] HermannCHEM MMQPK5568-12-55 06:47:005.7 [facility] HermannCHEM UALES5900-50-36 06:47:003.0[facility] HermannCHEM PANEL 2016-05-25 06:47:0014[facility] ClubCHEM HLEWH4350-32-82 06:47:003.2[facility] ClubCHEM VVZAP3216-90-85 06:47:001.7[facility] 2016-05-25 02:09:00Positive 1(05/24/16 9:09 PM)[facility] 2016-05-25 02:09:00 Test Item Value Reference Range Interpretation Comments Max Amplitude Rapid (test code = Max 68 mm 52-71 Amplitude Rapid) [facility]evilleCjdzhgoWSROBPPKJH9272-22-64 02:09:0010.4[facility] 2016-05-25 02:09:000.4[facility] CenterriConn[facility] Medical CenterPrjowldUOHFTPUCIS6174-53-98 02:09:00 Test Item Value Reference Range Interpretation Comments ACT (TEG) Rapid (test code = ACT (TEG) 121 s 86-118 Rapid) [facility]evilleEeeneluMDXDNNNSLS0727-64-83 02:09:00 Test Item Value Reference Range Interpretation Comments Split Point Rapid (test code = Split 0.7 min Point Rapid) [facility]evilleVrzxtebGFMYAQZWAH2754-18-21 02:09:00 Test Item Value Reference Range Interpretation Comments R-time Rapid (test code = R-time 0.8 min 0.4-0.7 Rapid) [facility]evilleBgknjusEIDTWQWZJP2916-94-00 02:09:00 Test Item Value Reference Range Interpretation Comments K-time Rapid (test code = K-time 0.8 min 0.6-2.3 Rapid) [facility]evilleKyoncvpMHLRGIADHG2200-29-09 02:09:00 Test Item Value Reference Range Interpretation Comments Angle Rapid (test code = Angle 80 degrees 64-80 Rapid) [facility]evilleYrwwmjuRKRZETMTNK2470-51-82 02:09:001.7[facility] 2016-05-25 02:09:000.1[facility] NkkbtgdJFTKQPJQRO1233-08-32 02:09:000.1[facility] CenterUdskzzdSUZNMVTDSR3990-65-17 02:09:00 Test Item Value Reference Range Interpretation Comments PTT (test code = PTT) 32.0 s 22.9-35.8 [facility]
[2021-02-09 13:54] LABS: Absolute Lymphocytes (CBC) 0.9 K/uL (0.7-4.9); Basophils % 0.8 % (0-1.3); Hematocrit 39.2 % (39.6-49.0); Lymphocytes % 11.6 % (15.3-44.8); MPV 8.3 fL (7.6-11.3); RBC Red Blood Cell Count 4.53 M/uL (4.33-5.43)
[2021-02-09 14:05] LABS: Protime INR 1.03
[2021-02-09 14:17] LABS: ALT/SGPT 17 U/L (12-78); AST/SGOT 13 U/L (15-37); Albumin 3.6 g/dL (3.4-5.0); Alkaline Phosphatase 150 U/L (45-117); BUN Blood Urea Nitrogen 16 mg/dL (7-18); Bicarbonate 27 mmol/L (21-32); Bilirubin Direct 0.2 mg/dL (0-0.2); Bilirubin Total 0.6 mg/dL (0.2-1.0); Glucose Level 123 mg/dL (74-106); Magnesium 2.1 mg/dL (1.8-2.4); NT PRO-BNP 799 pg/mL (<450); Potassium 3.7 mmol/L (3.5-5.1); Protein, Total 7.1 g/dL (6.4-8.2); Sodium Level 138 mmol/L (136-145); Troponin (Emerg Dept Use Only) < 0.02 ng/mL (0.0-0.045)
--- NOTE | 2021-02-09 14:22 | RAD REPORT ---
EXAM DESCRIPTION: RAD - Chest Single View - 02/09/2021 2:01 pm CLINICAL HISTORY: abdominal pain Chest pain. COMPARISON: <Comparisons> FINDINGS: Portable technique limits examination quality. The lungs are mildly emphysematous but grossly clear. The heart is normal in size. No displaced fract ures.Tortuous thoracic aorta. IMPRESSION: Mild COPD.
[2021-02-09] MEDS ORDERED: ONDANSETRON 4 MG/2 ML VIAL ONE (15:58)
[2021-02-09] MEDS ORDERED: cloNIDine HCL 0.1 MG TAB ONE ×2 (15:58→17:54)
[2021-02-09] MEDS ORDERED: HYDROCODONE/APAP 10/325 TAB ONE (16:23)
--- NOTE | 2021-02-09 17:14 | ER ---
Nurse's Notes [facility] Name: Pineda Mckeon Age: 75 yrs Sex: Male : 1945 Arrival Date: 02/09/2021 Time: 13:17 Bed 3 Private MD: Diagnosis: Hypertensive heart disease without heart failure Presentation: 02/09 13:21 Chief complaint: EMS states: "75 year old male abdominal pain reporting upper abdominal jd3 pain with some nausea. he was recently released form the [facility] after being seen with a descending aorta aneurism that was suspicious. he was released and told to keep his MAP under 130. he currently has a MAP of 130 and just filler picker his blood pressure medication from [facility] and took a dose prior to leaving for here.". Coronavirus screen: At this time, the client does not indicate any symptoms associated with coronavirus-19. Ebola Screen: Patient negative for fever greater than or equal to 101.5 degrees Fahrenheit, and additional compatible Ebola Virus Disease symptoms. Initial Sepsis Screen: Does the patient meet any 2 criteria? No. Patient's initial sepsis screen is negative. Does the patient have a suspected source of infection? No. Patient's initial sepsis screen is negative. Risk Assessment: Do you want to hurt yourself or someone else? Patient reports no desire to harm self or others. Onset of symptoms was February 09, 2021. 13:21 Method Of Arrival: EMS: [facility] jd3 13:21 Acuity: NORY 3 jd3 Historical: - Allergies: 13:26 No Known Allergies; jd3 - Home Meds: 13:27 Warfarin Oral [Active]; Ondansetron Oral [Active]; Prilosec Oral [Active]; Primidone jd3 Oral [Active]; tamsulosin oral [Active]; tizanidine oral [Active]; topiramate oral [Active]; Vitamin D3 oral [Active]; Clonidine Oral [Active]; dicyclomine Oral [Active]; gabapentin oral and lidocaine-menthol topical miscellaneous [Active]; Hydrocodone-Acetaminophen Oral [Active]; Albuterol Inhl [Active]; Amitriptyline Oral [Active]; Aspirin Oral [Active]; atorvastatin oral [Active]; Breo Ellipta inhalation [Active]; carvedilol oral [Active]; enoxaparin subcutaneous [Active]; amlodipine oral [Active]; - PMHx: 13:26 AAA; blood clot in right groin; Bypass Bilateral Legs; clotting disorder; COPD; CVA; jd3 Degenerative disc disease; Hypertension; Right Arm; TIA; 13:27 descending aorta aneurism; jd3 - Immunization history:: Adult Immunizations up to date. - Social history:: Smoking status: unknown. Screenin:16 Abuse screen: Denies threats or abuse. Nutritional screening: No deficits noted. ll1 Tuberculosis screening: No symptoms or risk factors identified. Fall Risk IV access (20 points). Gait- Impaired (20 pts.). Total Da Silva Fall Scale indicates Low Risk Score (25-44 pts). Fall prevention measures have been instituted. Side Rails Up X 2 Frequent Obs/Assesments occuring As available Patient and Family Educated on Fall Prevention Program and strategies. Assessment: 13:25 General: Appears uncomfortable, Behavior is calm, cooperative, appropriate for age. ll1 Pain: Complains of pain in abd Quality of pain is described as aching, crampy. Neuro: No deficits noted. Cardiovascular: No deficits noted. Respiratory: No deficits noted. GI: Abdomen is flat, Bowel sounds present X 4 quads. Abd is soft and non tender X 4 quads. Reports lower abdominal pain, upper abdominal pain, nausea. 14:25 Reassessment: No changes from previously documented assessment. Patient and/or family ll1 updated on plan of care and expected duration. Pain level reassessed. Patient is alert, oriented x 3, equal unlabored respirations, skin warm/dry/pink. 15:25 Reassessment: No changes from previously documented assessment. Patient and/or family ll1 updated on plan of care and expected duration. Pain level reassessed. Patient is alert, oriented x 3, equal unlabored respirations, skin warm/dry/pink. 16:25 Reassessment: No changes from previously documented assessment. Patient and/or family ll1 updated on plan of care and expected duration. Pain level reassessed. Patient is alert, oriented x 3, equal unlabored respirations, skin warm/dry/pink. 17:25 Reassessment: No changes from previously documented assessment. Patient and/or family ll1 updated on plan of care and expected duration. Pain level reassessed. Patient is alert, oriented x 3, equal unlabored respirations, skin warm/dry/pink. Vital Signs: 13:34 BP 177 / 117; Pulse 64; Resp 18 S; Temp 97.9(TE); Pulse Ox 100% on R/A; Weight 60.33 kg jd3 (R); Height 5 ft. 7 in. (170.18 cm) (R); Pain 4/10; 16:26 BP 184 / 104; Pulse 98; Resp 18; Pulse Ox 98% on R/A; ll1 17:35 BP 194 / 98; Pulse 88; Resp 18; Pulse Ox 98% ; ll1 13:34 Body Mass Index 20.83 (60.33 kg, 170.18 cm) jd3 17:35 Dr. Green informed of BP. Give clonidine PO then DC home. ll1 ED Course: 13:17 Patient arrived in ED. ds1 13:18 Mihir Green MD is Attending Physician. kdr 13:21 Gab Portillo RN is Primary Nurse. jd3 13:25 Triage completed. jd3 13:25 Patient has correct armband on for positive identification. Bed in low position. Call ll1 light in reach. Side rails up X 1. 13:34 Arm band placed on. jd3 13:45 Missed attempt(s): 22 gauge in right forearm. Bleeding controlled, band aid applied, ll1 catheter tip intact. 13:50 Inserted saline lock: 22 gauge in left ,using aseptic technique. leg Blood collected. ll1 14:01 XRAY Chest (1 view) In Process Unspecified. EDMS Administered Medications: 15:43 Drug: Zofran (Ondansetron) 4 mg Route: IVP; Site: Other; ll1 17:44 Follow up: Response: No adverse reaction ll1 15:43 Drug: cloNIDine 0.2 mg Route: PO; ll1 17:45 Follow up: Response: No adverse reaction ll1 16:04 Drug: [place] (HYDROcodone-acetaminophen) 10 mg-325 mg 1 tabs Route: PO; ll1 17:45 Follow up: Response: No adverse reaction; RASS: Alert and Calm (0) ll1 17:40 Drug: cloNIDine 0.1 mg Route: PO; ll1 17:46 Follow up: Response: No adverse reaction ll1 Outcome: 17:13 Discharge ordered by . kdr 17:47 Patient left the ED. ll1 Signatures: Dispatcher [employer] EDMS Mihir Green MD MD kdr Rosemary Palm ds1 Gab Portillo RN RN Ashley Napier RN RN ll1 Corrections: (The following items were deleted from the chart) 16:25 13:45 Inserted saline lock: 22 gauge in right forearm, using aseptic technique. Blood ll1 collected. ll1
--- NOTE | 2021-02-09 17:14 | EDPHYS ---
Physician Documentation [facility] Name: Pineda Mckeon Age: 75 yrs Sex: Male : 1945 Arrival Date: 02/09/2021 Time: 13:17 Bed 3 Private MD: ED Physician Mihir Green HPI: 02/09 17:14 This 75 yrs old Male presents to ER via EMS with complaints of HTN poorly kdr controlled. 17:15 The patient was recently d/c from [facility] for possible abdominal aortic aneurysm. After kdr evaluation, he was d/c without intervention and advised to keep his BP low. 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 HE then took one of the pills and came here. 17:23 Onset: The symptoms/episode began/occurred just prior to arrival, today. Severity of kdr symptoms: At their worst the symptoms were moderate severe just prior to arrival, in the emergency department the symptoms have improved mildly. The patient has experienced similar episodes in the past, a few times. The patient has been recently seen by a physician:. Historical: - Allergies: 13:26 No Known Allergies; jd3 - Home Meds: 13:27 Warfarin Oral [Active]; Ondansetron Oral [Active]; Prilosec Oral [Active]; Primidone jd3 Oral [Active]; tamsulosin oral [Active]; tizanidine oral [Active]; topiramate oral [Active]; Vitamin D3 oral [Active]; Clonidine Oral [Active]; dicyclomine Oral [Active]; gabapentin oral and lidocaine-menthol topical miscellaneous [Active]; Hydrocodone-Acetaminophen Oral [Active]; Albuterol Inhl [Active]; Amitriptyline Oral [Active]; Aspirin Oral [Active]; atorvastatin oral [Active]; Breo Ellipta inhalation [Active]; carvedilol oral [Active]; enoxaparin subcutaneous [Active]; amlodipine oral [Active]; - PMHx: 13:26 AAA; blood clot in right groin; Bypass Bilateral Legs; clotting disorder; COPD; CVA; jd3 Degenerative disc disease; Hypertension; Right Arm; TIA; 13:27 descending aorta aneurism; jd3 - Immunization history:: Adult Immunizations up to date. - Social history:: Smoking status: unknown. ROS: 17:23 Constitutional: Negative for fever, chills, and weight loss, Eyes: Negative for injury, kdr pain, redness, and discharge, Neck: Negative for injury, pain, and swelling, Cardiovascular: Negative for chest pain, palpitations, and edema, Respiratory: Negative for shortness of breath, cough, wheezing, and pleuritic chest pain, Back: Negative for injury and pain, : Negative for injury, bleeding, discharge, and swelling, MS/Extremity: Negative for injury and deformity, Skin: Negative for injury, rash, and discoloration, Neuro: Negative for headache, weakness, numbness, tingling, and seizure activity. Psych: Negative for depression, anxiety, suicide ideation, homicidal ideation, and hallucinations, Allergy/Immunology: Negative for hives, rash, and allergies, Endocrine: Negative for neck swelling, polydipsia, polyuria, polyphagia, and marked weight changes, Hematologic/Lymphatic: Negative for swollen nodes, abnormal bleeding, and unusual bruising. 17:23 Abdomen/GI: Positive for abdominal pain. Exam: 13:31 ECG was reviewed by the Attending Physician. kdr 17:23 Constitutional: This is a well developed, well nourished patient who is awake, alert, kdr and in no acute distress. Head/Face: Normocephalic, atraumatic. Eyes: Pupils equal round and reactive to light, extra-ocular motions intact. Lids and lashes normal. Conjunctiva and sclera are non-icteric and not injected. Cornea within normal limits. Periorbital areas with no swelling, redness, or edema. Neck: Trachea midline, no thyromegaly or masses palpated, and no cervical lymphadenopathy. Supple, full range of motion without nuchal rigidity, or vertebral point tenderness. No Meningismus. Chest/axilla: Normal chest wall appearance and motion. Nontender with no deformity. No lesions are appreciated. Cardiovascular: Regular rate and rhythm with a normal S1 and S2. No gallops, murmurs, or rubs. Normal PMI, no JVD. No pulse deficits. Respiratory: Lungs have equal breath sounds bilaterally, clear to auscultation and percussion. No rales, rhonchi or wheezes noted. No increased work of breathing, no retractions or nasal flaring. Abdomen/GI: Soft, non-tender, with normal bowel sounds. No distension or tympany. No guarding or rebound. No evidence of tenderness throughout. Back: No spinal tenderness. No costovertebral tenderness. Full range of motion. Skin: Warm, dry with normal turgor. Normal color with no rashes, no lesions, and no evidence of cellulitis. MS/ Extremity: Pulses equal, no cyanosis. Neurovascular intact. Full, normal range of motion. Neuro: Awake and alert, GCS 15, oriented to person, place, time, and situation. Cranial nerves II-XII grossly intact. Motor strength 5/5 in all extremities. Sensory grossly intact. Cerebellar exam normal. Normal gait. Psych: Awake, alert, with orientation to person, place and time. Behavior, mood, and affect are within normal limits. Vital Signs: 13:34 BP 177 / 117; Pulse 64; Resp 18 S; Temp 97.9(TE); Pulse Ox 100% on R/A; Weight 60.33 kg jd3 (R); Height 5 ft. 7 in. (170.18 cm) (R); Pain 4/10; 16:26 BP 184 / 104; Pulse 98; Resp 18; Pulse Ox 98% on R/A; ll1 17:35 BP 194 / 98; Pulse 88; Resp 18; Pulse Ox 98% ; ll1 13:34 Body Mass Index 20.83 (60.33 kg, 170.18 cm) jd3 17:35 Dr. Green informed of BP. Give clonidine PO then DC home. ll1 MDM: 17:13 Patient medically screened. kdr 17:23 Data reviewed: vital signs, nurses notes, lab test result(s), radiologic studies. kdr Counseling: I had a detailed discussion with the patient and/or guardian regarding: the historical points, exam findings, and any diagnostic results supporting the discharge/admit diagnosis, lab results, radiology results, the need for outpatient follow up, The patient expressed that now that his pressure was better, he wanted to go home. His daughter may take him to [facility]. HE indicated that he was not certain that he wanted to continue with any significant intervention in his health care. His has been for 15 years and he may have to put his dog down this weekend. He indicated that his children area all raised and well off and that he really was not interested in a new relationship. He did not indicate that he was suicidal but that he did not want to continue with heroic efforts to keep him alive.. 02/09 13:19 Order name: Basic Metabolic Panel; Complete Time: 14:59 kdr 02/09 13:19 Order name: CBC with Diff; Complete Time: 14:59 kdr 02/09 13:19 Order name: LFT's; Complete Time: 14:59 kdr 02/09 13:19 Order name: Magnesium; Complete Time: 14:59 kdr 02/09 13:19 Order name: NT PRO-BNP; Complete Time: 14:59 kdr 02/09 13:19 Order name: PT-INR; Complete Time: 14:59 kdr 02/09 13:19 Order name: Troponin (emerg Dept Use Only); Complete Time: 14:59 kdr 02/09 13:19 Order name: XRAY Chest (1 view); Complete Time: 14:59 kdr 02/09 13:19 Order name: EKG; Complete Time: 13:20 kdr 02/09 13:19 Order name: Cardiac monitoring; Complete Time: 14:16 kdr 02/09 13:19 Order name: EKG - Nurse/Tech; Complete Time: 14:16 kdr 02/09 13:19 Order name: IV Saline Lock; Complete Time: 13:46 kdr 02/09 13:19 Order name: Labs collected and sent; Complete Time: 13:46 kdr 02/09 13:19 Order name: O2 Per Protocol; Complete Time: 13:46 kdr 02/09 13:19 Order name: O2 Sat Monitoring; Complete Time: 13:46 kdr EC:31 Rate is 69 beats/min. Rhythm is regular, Sinus Rhythm with No ectopy. QRS Elmer is kdr Normal. GA interval is normal. QRS interval is normal. Clinical impression: NSR w/ Non-specific ST/T Changes. Administered Medications: 15:43 Drug: Zofran (Ondansetron) 4 mg Route: IVP; Site: Other; ll1 17:44 Follow up: Response: No adverse reaction ll1 15:43 Drug: cloNIDine 0.2 mg Route: PO; ll1 17:45 Follow up: Response: No adverse reaction ll1 16:04 Drug: Weskan (HYDROcodone-acetaminophen) 10 mg-325 mg 1 tabs Route: PO; ll1 17:45 Follow up: Response: No adverse reaction; RASS: Alert and Calm (0) ll1 17:40 Drug: cloNIDine 0.1 mg Route: PO; ll1 17:46 Follow up: Response: No adverse reaction ll1 Disposition Summary: 02/09/21 17:13 Discharge Ordered Location: Home kdr Problem: an ongoing problem kdr Symptoms: have improved kdr Condition: Fair kdr Diagnosis - Hypertensive heart disease without heart failure kdr Followup: kdr - With: Private Physician - When: 2 - 3 days - Reason: If symptoms return, Further diagnostic work-up, Recheck today's complaints, Continuance of care, Re-evaluation by your physician Discharge Instructions: - Discharge Summary Sheet kdr - Hypertension, Adult, [id number] kdr Forms: - Medication Reconciliation Form kdr - Thank You Letter kdr Prescriptions: - clonidine HCl 0.1 mg Oral tablet - take 1 tablet by ORAL route 2 times per day As needed; 20 tablet; Refills: 0, kdr Product Selection Permitted Signatures: Dispatcher [employer] Mihir Fitzgerald MD MD kdr Davies, Jonathon RN RN Ashley Napier RN RN ll1
[2021-02-09 18:02] VITALS: TEMP 97.9
[2021-02-09 18:05] VITALS: O2SAT 98
[2021-02-09 18:07] VITALS: BP 194/98
--- NOTE | 2021-02-10 13:47 | EKG ---
Test Date: 2021-02-09 Test Time: 13:29:03 Stereotype Molder: MAKENZIE MEASUREMENT RESULTS: Intervals: Rate: 69 PA: 162 QRSD: 88 QT: 382 QTc: 409 [place]: P: 73 PA: 162 QRS: -16 T: 62 INTERPRETIVE STATEMENTS: Sinus rhythm with occasional premature ventricular complexes Otherwise normal ECG Compared to ECG 02/04/2021 06:24:42 Ventricular premature complex(es) now present Sinus bradycardia no longer present Electronically Signed On 02-10-21 13:45:38 CDT by Conrad Scherer
== END 2021-02-09 17:47 | disposition home or self-care (01) ==
LOC: ER 13:13
DX: I11.9 Hypertensive heart disease without heart failure (principal); I10 Essential (primary) hypertension; J44.9 Chronic obstructive pulmonary disease, unspecified; Z79.01 Long term (current) use of anticoagulants; Z86.73 Personal history of transient ischemic attack (TIA), and cerebral infarction without residual deficits
CPT/HCPCS: 93005; 85025; 80048; 36415; 83735; 85610; 80076; 84484; 83880; 71045; 96374; 99284; J2405

== ENCOUNTER 2021-02-18 16:07 | Observation (INO) | payer OTHER ==
--- OUTSIDE RECORDS SUMMARY | 2021-02-18 16:14 | XMS REPORT | Continuity of Care Document ---
:1945 Author Organization [facility] t Address 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 6-28 [facility] of 00:00: Medical thoracic thoracic 00 Center aorta, aorta, Osei [place] type B type B PAD PAD Disease Active 2018-08 [facility] (periphera (periphera 0-30 Me thodi l artery l artery 00:00: st disease) disease) 00 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 [place] deficiency deficiency 0-30 Me thodi 00:00: st 00 PAD PAD Disease Active 2018-08 [facility] (periphera (periphera 0-18 Assessmen Methodi l [...] graft explantat ion VTE VTE Disease Active [facility] (venous (venous 7-17 Assessmen Metho di [...] Memoria BILLING 0-15 12:09:00 l 5060 20:28: [place] SARAH 00 BILLING 5060 Active 05/24/2016 [facility] SDH Diagnosis Active 2015-082016-06-05 Mem oria 0-15 23:20:00 l SDH 00:00: [place] 00 Active 05/24/2016 [facility] Essential Problem Active 2020-12-01 Me moria tremor 01:14:44 l (disorder) [place] Essential tremor (disorder) Active Problem 12/01/2020 [facility] Neuro Subdural Problem Active 2020-12-01 Mem oria hematoma 01:14:44 l (disorder) Subdural He rmann hematoma (disorder) Active Problem 12/01/2020 [facility] Neuro,[facility] Coxitis Problem Active 2020-12-01 Micah taylor (disorder) 01:14:44 l Coxitis Jevon (disorder) Active Problem 12/01/2020 [facility] Neuro Lumbar Problem Active 2020-12-01 Memor ia radiculopa 01:14:44 l thy Lumbar Jevon (disorder) radiculopa thy (disorder) Active Problem 12/01/2020 [facility] Neuro NONTRAUMAT Diagnosis Active 2016-06-05 Memoria IC 23:20:00 l SUBDURAL Jevon HEMORRHAGE NONTRAUMAT , UNSPEC IC SUBDURAL HEMORRHAGE , UNSPEC Active [facility] Severe Severe Disease Active [facility] St aortic aortic [facility] - stenosis stenosis Medica l Center Anemia Anemia Disease Active [facility] HTN HTN Disease Active [facility] St (hypertens (hypertens Karine kes - ion) ion) [facility] Hyperlipid Hyperlipid Disease Active C [facility] emia emia [facility] COPD COPD Disease Active [facility] St (chronic (chronic [facility] - obstructiv obstructiv Ct dical e e [place] pulmonary pulmonary disease) disease) Seizures Seizures Disease Active 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 [facility] - aneurysm aneurysm Medica l Center Abdominal Abdominal Disease Active [facility] aortic aortic [facility] - aneurysm aneurysm Medica (AAA) (AAA) Center DVT (deep DVT (deep Disease Active [facility] venous venous [facility] - thrombosis thrombosis Me dical ) ) Center Allergies, Adverse Reactions, Alerts Allergy Allergy Status Severity Reaction(s) Onset Inactive Treating Comm ents Source Name Type Date Date Clinician No Known No Known Active Memori a Medicati Medicati l on on Jevon Allergstephen Allergie s s Social History Social Habit Start Date Stop Date Quantity Comments Source History of tobacco Current smoker charlie Muslim use Sex Assigned [facility] Exposure to Not sure [facility] - SARS-CoV-2 (event) [facility] Alcohol Comment 2019-05-27 2019-05-27 quit ~2004 Pandya M ethodist 00:00:00 00:00:00 Cigarette 2018-03-23 2018-03-[address] [facility] St Griffiths - pack-years 00:00:00 00:00:00 [facility] Tobacco use and 2018-03-23 2018-03-[address] [facility] St Griffiths - exposure 00:00:00 00:00:00 [facility] Alcohol intake 2018-03-23 2018-03-23 [facility] non-drinker of Medical Ce nter alcohol (finding) Cigarettes smoked 2018-03-23 2018-03-[address] [facility] St Griffiths - current (pack per 00:00:00 00:00:00 Medical Center day) - Reported Tobacco Comment 2017-12-09 2017-12-09 quit 2010 [facility] - 00:00:00 00:00:00 [facility] Smoking Status Start Date Stop Date Source Former smoker 2018-03-23 00:00:00 2018-03-23 00:00:00 [facility] L [facility] Medications Ordered Filled Start Stop Current [...] MG 14:28: mouth Medical tablet 46 daily. [place] topiramate Yes 100mg Q.5D Take [address] (TOPAMAX) 7-02 mg by [facility] - 100 MG 14:28: mouth 2 Medical tablet 46 (two) Center times daily. warfarin Yes 9mg QD Take [address] (COUMADIN) 7-02 by mouth [facility] - 10 MG 14:28: daily. Medical tablet 46 [place] aspirin 81 Yes [address] MG chewable 02-08 Orally [facility] - tablet 14:28: Once a day Medic al 46 [place] omeprazole Yes 1{capsu [address] (PriLOSEC 02-08 le} [facility] - OTC) 20 MG 14:28: Medical tablet 46 [place] CHOLECALCIF Yes Take by [facility] ROC, 7-02 mouth. [facility] - VITAMIN D3, 14:28: Medica l ORAL 46 [place] cloNIDine Yes [address] HCL - at bedtime [facility] - (CATAPRES) 14:28: Medical [...] times daily for 90 days. enoxaparin 2020- No 60mg Inject 0.[address] (LOVENOX) 02-0809 [...] Saskia nn 00 cap, 5 Refill(s), Pharmacy: [facility], 65.455, kg, 11/01/20 16:06:00 CDT, Weight primidone Yes See Memoria 250 mg oral 3-25 Instructio l tablet 21:18: ns, TAKE Jevon 00 ONE (1) TABLET(S) BY MOUTH ONCE A DAY., # 30 ea, 5 Refill(s), Pharmacy: [facility], 65.455, kg, 11/01/20 16:06:00 CDT, Weight topiramate Yes = 1 tab, Mem oria 100 mg oral 3-25 PO, BID, # l tablet 21:18: 60 ea, 5 [place] 00 Refill(s), Pharmacy: [facility], 65.455, kg, 11/01/20 16:06:00 CDT, Weight gabapentin- 2020- No 300mg [address] lidocaine 11-01 [facility] - 300 mg- 5 % 00:00: 23:59 Medic al Kit 00 :00 [place] gabapentin Yes 300 mg = 1 M emoria 300 MG Oral 5-07 cap, PO, l Capsule 15:51: BID, # 60 [place] nn 00 cap, 5 Refill(s), Pharmacy: [facility] Pharmacy [place] gabapentin Yes See Memoria 300 MG Oral 4-03 Instructio l Capsule 14:22: ns, # 90 [place] 27 ea, Refill(s) 1, TAKE ONE (1) CAPSULE(S) BY MOUTH AT BEDTIME., Pharmacy: [facility] [place] CHOLECALCIF 2018-08 Yes QD Take by Rodolfo [...] 75 MG 00:00: st tablet 00 GABAPENTIN 2018-0 Yes = 1 cap, Mem oria CAP 300MG 5-28 PO, l 14:33: Bedtime, # Jevon 53 30 ea, Refill(s) 5, Pharmacy: [facility] gabapentin Yes 300 mg = 1 M emoria 300 MG Oral 1-08 cap, PO, l Capsule 23:41: Bedtime, # Herm francisco 00 30 cap, 3 Refill(s), Pharmacy: [facility] amitriptyli Yes 75 mg = 1 M emoria ne 75 mg 1-04 tab, PO, l oral tablet 22:41: Bedtime, # Jevon 00 30 tab, 0 Refill(s) amLODIPine 2019 Yes 5 mg = 1 Mem oria 5 mg oral 1-04 tab, PO, l tablet 22:41: Daily, # Jevon 00 90 tab, 0 Refill(s) primidone Yes = 1 tab, Micah taylor 250 mg oral 1-04 PO, Daily, l tablet 22:35: # 30 tab, [place] 26 9 Refill(s), Pharmacy: [facility] topiramate Yes 100 mg = 1 M emoria 100 mg oral 1-04 tab, PO, l tablet 22:35: BID, # 60 [place] 00 tab, 9 Refill(s), Pharmacy: [facility] honey 100 % Yes 1{appli QD [...] 00 Center 10-325 mg per tablet fentaNYL 2020- No [facility] (DURAGESIC) 4-24 07-02 [facility] [...] 3 tab, PO, l Oral Tablet 14:27: [id number], # [place] 00 90 tab, 0 Refill(s) Docusate 2015-08 Yes 100 mg = 1 Mem oria Sodium 100 0-21 cap, PO, l MG Oral 14:27: Q12H, # 20 Herm francisco Capsule 00 cap, 0 Refill(s) phenol 2015-08 No Notes: Memoria 0-21 Chlorasept l 03:35: ic [place] 00 (Same as: Chlorasept ic, Sore Throat [place]) WASTE: F/P - Black; E - Municipal [...] Duration: 30 day, Stop date: 06/26/16 9:00:00 ACCOUNT ASSISTANT Remeron 2015-08 No Notes: Memoria 0-19 (Same l 02:00: as:Remeron ) ibuprofen 2015-08 No Notes: Memori a 100 mg/5 mL 0-18 (Same as: l oral 20:00: Motrin [place] suspension 00 Children's , Advil Children's ) Take with food. Duragesic-1 2015-08 No Notes: Micah taylor 00 0-18 (Same as: l 18:00: Duragesic) [place] 00 Check for product integrity. Apply to [...] Duration: 30 day, Stop date: 06/25/16 9:00:00 ACCOUNT ASSISTANT Lisinopril 2015-08 No 40 mg, Memor ia 0-18 Route: PO, l 14:00: Drug form: Jevon 00 TAB, Daily, Dosing Weight 76.36, kg, Start date: 05/27/16 9:00:00 CDT, Duration: 30 day, Stop date: 06/25/16 9:00:00 ACCOUNT ASSISTANT Miralax 2015-08 No Notes: Memoria 0-18 Dissolve l 14:00: in 8 oz of [place] 00 water or juice. (Same as: Miralax) remove 2015-08 No Notes: Memoria patch 0-18 Remove old l 14:00: patch Jevon 00 before applicatio n of new patch. WASTE: F/P - P Waste Black; E - P Waste Black Keppra 2015-08 No Notes: Memoria 0-18 Same as l 12:25: Keppra [place] 00 Mix with 100 mL NS, LR [...] Notes: Memoria 0-18 porcine l 05:00: heparin [place] 00 Fentanyl 2015-08 No Notes: Memoria 0-18 (Same as: l 04:47: Sublimaze) [place] Preservat emanuel free. Lisinopril 2015-08 No Notes: Memor ia 0-18 (Same as: l 01:00: Prinivil, Jevon 00 Zestril) Fentanyl 2015-08 No Notes: Memoria 0-18 (Same as: l 00:51: Sublimaze) [place] Preservat emanuel free. pneumococca 2015-08 No Notes: Micah taylor l 13-valent 0-18 Lightly l vaccine 00:50: roll vial [place] nn 00 (DO NOT SHAKE) before administra tion. (Same as: Prevnar 13) Albuterol 2015-08 No Notes: Memori a 0.833 MG/ML 0-17 (Same as: l / 21:26: Duoneb) Jevon Ipratropium 00 [place] 0.167 MG/ML Inhalant Solution [DuoNeb] mirtazapine 2015-08 [...] tab, 0 10 MG Oral Refill(s) Tablet [[place]urdock 10/325] lisinopril 2015-08 Yes 40 mg = [...] Q48H, l 0.1 MG/HR 19:52: # 15 [place] Transdermal 00 patch, 0 Patch Refill(s) [Duragesic] [...] Memoria 0-17 Same as l 17:59: Keppra [place] 00 Mix with 100 mL NS, LR or D5W MEDICATION WASTE Product Size: 500 mg Product Wasted: ___ mg Hydralazine 2015-08 No Notes: Micah taylor 0-17 (Same as: l 15:14: Apresoline Jevon ) Push over 5 minutes Nicotine 2015-08 No Notes: Memoria 0-17 (Same as: l 14:00: Habitrol) [place] 00 "Remove old patch before applicatio n of new patch" WASTE: F/P - P Waste Black; E - P Waste Black Keppra + 2015-08 No Notes: Memoria sodium 0-17 Same as l chloride 06:57: Keppra [place] 0.9% INJ 00 Mix with 100 mL 100 mL NS, LR or D5W MEDICATION WASTE Product Size: 500 mg Product Wasted: __0_ mg Keppra 2015-08 No 500 mg, Memoria 0-17 Route: l 06:28: IVPB, [place] 00 Q24H, Dosing Weight 76.36, kg, Priority: STAT, Start date: 05/26/16 1:28:00 CDT, Duration: 30 day, Stop date: 06/24/16 1:28:00 ACCOUNT ASSISTANT sodium 2015-08 No 1,000 mL, Memori a chloride 0-17 Rate: 50 l 0.9% 1000 02:30: ml/hr, [place] n ml INJ 00 Infuse 1,000 mL over: 20 hr, Route: IV, Dosing Weight 76.36 kg, Total Volume: 1,000, Start date: 05/25/16 21:30:00 CDT, Duration: 30 day, Stop date: 06/24/16 21:29:00 ACCOUNT ASSISTANT Acetaminoph 2015-08 No Notes: Micah taylor en 325 MG / 0-17 (Same as: l Hydrocodone 01:00: [place] Saskia nn Bitartrate 00 325/5) Do 5 MG Oral not exceed Tablet 4gm/day of [[place] acetaminop 5/325] hen. Tylenol 2015-08 No Notes: Do Memor ia 0-17 not exceed l 00:38: 4 gm/day. Jevon (Same as: Tylenol) Albuterol 2015-08 No Notes: SEE Me moria 0.83 MG/ML 0-16 RT l Inhalant 21:04: DOCUMENTAT Her mackenzie Solution 00 ION (Same as: Proventil) Ancef + 2015-08 No Notes: Memoria sodium 0-16 (Same As: l chloride 21:00: Ancef, [place] 0.9% INJ 00 Kefzol) 100 mL MEDICATION [...] 0-16 Rate: 125 l 0.154 20:57: ml/hr, [place] MEQ/ML 00 Infuse Injectable over: 8 Solution hr, Route: IV, Dosing Weight 76.36 kg, Total Volume: 1,000, Start date: 05/25/16 15:57:00 CDT, Duration: 30 day, Stop date: 06/24/16 15:56:00 ACCOUNT ASSISTANT Ancef 2015-08 No 2 gm, Memoria 0-16 Route: l 19:15: IVPB, Jevon 00 ONCE, Dosing Weight 76.36, kg, Start date: 05/25/16 14:15:00 CDT, Duration: 1 doses or times, Stop date: 05/25/16 14:15:00 CDT Streptococc 2015-08 No Notes: Micah taylor us 0-16 Lightly l pneumoniae 14:00: roll vial He rmann serotype 1 00 (DO NOT capsular SHAKE) antigen before diphtheria administra [id number] tion. protein (Same as: conjugate Prevnar vaccine / 13) Streptococc us pneumoniae serotype 14 capsular antigen diphtheria [id number] protein conjugate vaccine / Streptococc us pneumoniae [...] Memoria 0-16 (Same as: l 14:00: Colace) [place] 00 (Do Not Crush) sennosides, 2015-08 No Notes: Micah taylor ASSISTED 0-16 (Same as: l 14:00: Senokot) [place] 00 Flomax 2015-08 No Notes: Memoria 0-16 (Same As: l 11:11: Flomax) Jevon 00 "Do Not Crush" Dexamethaso 2015-08 No Notes: Micah taylor ne 0-16 Concentrat l 10:39: ion: Jevon 00 4mg/ml Mannitol 2015-08 No Notes: Memoria 0-16 (Same as: l 10:16: Osmitrol) [place] 00 Infuse through 5 micron or smaller [...] Oxide 0-16 (Same as: l 04:11: Mag-Ox [place] 00 400) Magnesium oxide [id number] g elemental magnesium Dose=____m g magnesium oxide [...] WASTE: F/P l 04:11: - Sink; E [place] 00 - Municipal Trash Bin potassium 2015-08 [...] Duration: 30 day, Stop date: 06/23/16 22:10:00 ACCOUNT ASSISTANT, FOR ICU USE ONLY potassium 2015-08 No Notes: Memori a chloride 0-16 (Same as: l 04:11: KCL) Jevon 00 Infuse over 2 hours. iodixanol 2015-08 No 60 mL, Memori a 0-16 Route: l 03:50: IVP, Drug [place] 00 Form: SOLN, Dosing Weight 76.364, kg, [...] Duration: 30 day, Stop date: 06/23/16 21:16:00 ACCOUNT ASSISTANT Saline 2015-08 No Notes: Memoria Flush 0.9% 0-16 (Same as: l 03:17: BD Posiflush) Bisacodyl 2015-08 No Notes: Memori a 0-16 (Same As: l 03:17: Dulcolax, Bisco-Lax) Ondansetron 2015-08 No Notes: Micah taylor 0-16 (Same as: l 03:17: Zofran) MEDICATION WASTE Product Size: 4 mg Product Wasted: _0__ mg Acetaminoph 2015-08 No Notes: Do M emoria en 325 MG / 0-16 not exceed l Hydrocodone 03:17: 4gm/day of [place] Bitartrate 00 acetaminop 10 MG Oral hen. Tablet (Same as: [place] 325/10) Levetiracet 2015-08 No Notes: Micah taylor [...] Duration: 30 day, Stop date: 06/23/16 22:16:00 ACCOUNT ASSISTANT Acetaminoph 2015-08 No Notes: Micah taylor en 325 MG / 0-16 (Same as: l Hydrocodone 03:17: [place] Saskia nn Bitartrate 00 325/5) Do 5 MG Oral not exceed Tablet 4gm/day of acetaminop hen. Saline 2015-08 No Notes: Memoria Flush 0.9% 0-16 (Same as: l 01:56: BD [place] 00 Posiflush) Vitamin D3 Vitamin D3 Yes Home 2 [...] Memoria l [facility] Breo Breo Yes Home [address] [facility]ics Aspir-81 Aspir-81 Yes Home [address] [facility] ProAir HFA ProAir [...] - TABLET(S) Memoria BY MOUTH l NIGHTLY. [facility] Clonidine Clonidine Yes [...] TABLET(S) Memoria BY MOUTH l TWICE A [facility] DAY WITH ent MEALS. Clinics [...] Memoria l [facility] Immunizations Ordered Immunization Filled Immunization Date Status Commen ts Source Name Name FLUZONE HIGH-DOSE PF 2019-06-17 Completed [place] 00:00:00 Muslim Vital Signs Vital Name Observation Time Observation Value Comments Source Respiratory rate 2021-02-08 11:15:00 18 /min [facility] Oxygen saturation in 2021-02-08 11:15:00 100 /min [facility] Arterial blood by Medical Ce nter Pulse oximetry Systolic blood 2021-02-08 11:15:00 133 mm[Hg] [facility] Diastolic blood 2021-02-08 11:15:00 62 mm[Hg] [facility] Heart rate 2021-02-08 11:15:00 60 /min [facility] Body temperature 2021-02-08 11:15:00 35.94 Mari [facility] Body weight 2021-02-08 05:00:00 60.51 kg [facility] BMI 2021-02-08 05:00:00 20.89 kg/m2 [facility] Body height 2021-02-04 14:00:00 170.2 cm [facility] Systolic (mm Hg) 2020-11-01 21:06:00 Micah rial Jevon Diastolic (mm Hg) 2020-11-01 21:06:00 Mem orial Jevon Heart Rate 2020-11-01 21:06:00 [facility] [place] Respitory Rate 2020-11-01 21:06:00 Memori al [place] Weight 2020-11-01 21:06:00 [facility] [place] Heart Rate 2018-08-13 22:09:00 [facility] Jevon Respitory Rate 2018-08-13 22:09:00 Memori al [place] Systolic (mm Hg) 2018-08-13 22:09:00 Micah rial [place] Diastolic (mm Hg) 2018-08-13 22:09:00 Mem orial [place] BMI Calculated 2018-08-13 22:09:00 Memori al Jevon Height 2018-08-13 22:09:00 160.02 cm [facility] Jevon Weight 2018-08-13 22:09:00 [facility] Jev[place] Systolic (mm Hg) 2016-05-30 16:34:00 Micah rial Jevon Diastolic (mm Hg) 2016-05-30 16:34:00 Mem orial [place] Temperature Oral (F) 2016-05-30 16:34:00 97.7 F [facility] [place] Heart Rate 2016-05-30 16:34:00 [facility] Jevon Respitory Rate 2016-05-30 16:34:00 Memori al [place] Respitory Rate 2016-05-30 13:20:00 Memori al Jevon Heart Rate 2016-05-30 13:20:00 [facility] [place] Systolic (mm Hg) 2016-05-30 13:20:00 Micah rial Jevon Diastolic (mm Hg) 2016-05-30 13:20:00 Mem orial Jevon Temperature Oral (F) 2016-05-30 13:20:00 97.8 F [facility] Jevon Systolic (mm Hg) 2016-05-30 08:32:00 Micah rial [place] Diastolic (mm Hg) 2016-05-30 08:32:00 Mem orial Jevon Temperature Oral (F) 2016-05-30 08:32:00 98.1 F [facility] Jevon Respitory Rate 2016-05-30 08:32:00 Memori al Jevon Heart Rate 2016-05-30 08:32:00 [facility] [place] BMI Calculated 2016-05-25 07:10:00 Julian Matos Weight 2016-05-25 07:10:00 [facility] [place] Height 2016-05-25 07:10:00 172.72 cm Richard Jevon [facility] 2016-05-25 [facility]:40[facility]00 [facility] 2016-05-25 01:40:00 Julian Matos Height 2016-05-25 01:40:00 170.18 cm [facility] Procedures Procedure Date / Time Performing Clinician Source Performed APTT 2021-02-08 04:16:[address] [facility] CBC (HEMOGRAM ONLY) 2021-02-08 04:16:00 José-Smart, [facility] PROTHROMBIN TIME/INR 2021-02-08 04:16:00 Red Lund CH, I [facility] US ABDOMEN COMPLETE 2021-02-08 02:45:00 Gigi [facility] APTT 2021-02-07 20:57:00 Alfie Hwang [facility] HC ARTERIAL DOPPLER LEGS 2021-02-07 18:27:[address] [facility] HC ARTERIAL(BRAIN W 2021-02-07 18:27:00 Velvet [facility] es - DOPPLER)ONLY [facility] APTT 2021-02-07 12:21:00 Alfie Hwang [facility] HEPATIC FUNCTION PANEL 2021-02-07 12:21:00 Stevo Callaway [facility] BASIC METABOLIC PANEL (7) 2021-02-07 05:06:00 José-Smart, [facility] APTT 2021-02-07 05:06:00 Blanca Conley [facility] CBC (HEMOGRAM ONLY) 2021-02-07 05:06:00 José-Smart, [facility] APTT 2021-02-07 00:09:00 Red Lund [facility] APTT 2021-02-06 16:58:00 [facility] A[facility]C 2021-02-06 12:18:[facility] 2021-02-06 12:18:00 [facility] AP[facility] 2021-02-06 04:49:00 [facility] BASIC METABOLIC PANEL (7) 2021-02-06 04:18:00 José-Smart, [facility] CBC (HEMOGRAM ONLY) 2021-02-06 04:18:00 [facility] LIPID PANEL 2021-02-06 04:18:00 [facility] 2021-02-05 23:25:00 [facility] 2021-02-05 16:29:00 José-Smart, [facility] APTT 2021-02-05 15:10:00 [facility]/INR 2021-02-05 15:10:00 [facility] 2021-02-05 12:47:00 [facility] PROTHROMBIN TIME/INR 2021-02-05 12:47:00 [facility] AP[facility] 2021-02-05 11:46:00 José-Smart, [facility] BEDSIDE SPIROMETRY 2021-02-05 07:50:00 José-Smart, [facility] APTT 2021-02-05 04:36:00 Red Lund [facility] BASIC METABOLIC PANEL (7) 2021-02-05 04:36:00 José-Smart, [facility] CBC (HEMOGRAM ONLY) 2021-02-05 04:36:00 [facility] APTT 2021-02-04 22:56:00 José-Smart, [facility] HC CAROTID DOPPLER JUSTIN 2021-02-04 21:44:00 Red Lund [facility] SARS-COV2/RT-PCR ([facility] & 2021-02-04 20:06:00 José-Smart, [facility] - REF LABS) Medical Center ANTIBODY IDENTIFICATION 2021-02-04 18:45:00 Tiffanie Conley [facility] PREPARE RBC 2021-02-04 15:33:00 Tiffanie Conley [facility] 2D ECHO W/ DOPPLER 2021-02-04 14:54:32 Tiffanie Conley [facility] (CW/PW/COLOR) [facility] ECG 12-LEAD 2021-02-04 13:38:31 Shun Mejia [facility] ECG 12-LEAD 2021-02-04 13:36:08 Tiffanie Conley [facility] XR CHEST 1 VIEW 2021-02-04 13:18:00 Tiffanie Conley [facility] - PORTABLE/BEDSIDE [facility] BASIC METABOLIC PANEL (7) 2021-02-04 13:11:00 Tiffanie Conley [facility] CBC W/PLT COUNT & AUTO 2021-02-04 13:11:00 [facility] MAGNESIUM 2021-02-04 13:11:00 Tiffanie Conley [facility] PHOSPHORUS 2021-02-04 13:11:00 Tiffanie Conley [facility] PROTHROMBIN TIME/INR 2021-02-04 13:11:00 Tiffanie Conley [facility] APTT 2021-02-04 13:11:00 [facility] AND [facility]CREEN, 2021-02-04 13:11:00 Tiffanie Conley [facility] s - AUTOMATED [facility] REPORT OF PROCEDURE - 2021-02-04 00:00:00 Provider, Default [facility] - ENDOSCOPY SCAN Scanning [facility] Abdominal aortic aneurysm Memori al Jevon stenting<sup>1</sup> Bypass / graft of vein [facility] Hernia repair [facility] Plan of Care Planned Activity Planned Date Details Comments Source Future Scheduled 2021-04-10 INFLUENZA VACCINE (#1) [facility] Test 00:00:00 [code = INFLUENZA Medical Ce nter VACCINE (#1)] Future Scheduled 2021-03-10 INFLUENZA VACCINE [place] [facility] Test 00:00:00 [code = INFLUENZA VACCINE] Future Scheduled 2020-08-[address] [facility] - Test 00:00:00 (12+) [code = [facility] DEPRESSION SCREENING (12+)] Future Scheduled 2008-02-22 65+ PNEUMOCOCCAL [place] [facility] Test 00:00:00 VACCINE (2 of 2 - [...] Scheduled 1993 SHINGLES VACCINES (#1) [place] [facility] 00:00:00 [code = SHINGLES VACCINES (#1)] [...] Scheduled 1961 Hepatitis C screening [place] [facility] 00:00:00 (procedure) [code = 989353859] Future Scheduled 1961 HEPATITIS C SCREENING [facility] Test 00:00:00 [code = HEPATITIS [facility] Center SCREENING] Future Scheduled 1955 COVID-19 VACCINE (1) Rodolfo concepcion Muslim Test 00:00:00 [code = COVID-19 VACCINE (1)] Future Scheduled 1957 COVID-19 VACCINE (1) [facility]00 [code = COVID-[address] VACCINE (1)] Encounters Start End Encounter Admission Attending Care Care Encounter Source Date/Time Date/Time Type Type Clinicians Facility Department ID 2021-02-04 2021-02-04 Outpatient [facility] [id number] [facility] 00:00:00 23:59:00 Rey 2021-01-08 2021-01-08 Out[facility] [id number] [facility] 2020-12-05 2020-12-05 [facility] [id number] [facility] 2020-11-27 2020-11-28 Outpatient MHMISCHER MHMISCHER [id number] 15:11:31 23:59:59 2020-11-01 2020-11-01 Outpatient Earl, MHMISCHER MHMISCHER [id number] 16:00:00 23:59:59 James 13 [place] 2020-10-23 2020-10-23 Out[facility] [id number] [facility] 2020-10-18 2020-10-18 Outpatient NELLY ElliottMISCHER MHMISCHER [id number] 15:30:00 15:30:00 James 11 [place] 2020-10-12 2020-10-12 Outpatient Earl, MHMISCHER MHMISCHER [id number] 09:00:00 09:00:00 James 10 [place] 2020-07-03 2020-07-03 [facility] [id number] [facility] 2020-06-19 2020-06-19 Outpatient Earl PAMSCHSHEILA RUSTSCH [id number] 14:00:00 14:00:00 James 07 [place] 2020-06-19 2020-06-19 Outpatient JANAE ElliottSCHSHEILA RUSTSCHER [id number] 14:00:00 14:00:00 James 08 [place] 2020-06-07 2020-06-07 Outpatient [facility] [id number] [facility] 2020-05-30 2020-05-30 [facility] [id number] [facility] 2020-03-05 2020-03-05 [facility] [id number] 13:30:00 13:30:00 [facility] [employer] [facility] [employer] [facility] Out[facility] Clinics 2020-01-26 2020-01-26 [facility] [id number] 11:08:00 11:08:00 [facility] [employer] [facility] [employer] [facility] Clin[facility] 2019-12-27 2019-12-27 [facility] [id number] 14:45:00 14:45:00 [facility] [employer] [facility] [employer] [facility] Clin[facility] 2019-12-15 2019-12-15 Outpatient Earl RUSTSCHSHEILA RUSTSCH [id number] 10:45:00 23:59:59 James [place] 2019-11-15 2019-11-15 Outpatient Earl BINA MISCHER [id number] 09:15:00 09:15:00 James 05 [place] 2019-09-16 2019-09-16 [facility] [id number] 14:58:00 14:58:00 [facility] [employer] [facility] [employer] [facility] Out[facility] Clin[facility] 2019-09-14 2019-09-14 [facility] [id number] 14:45:00 14:45:00 [facility] [employer] [facility] [employer] [facility] Out[facility] Clinics 2019-08-31 2019-08-31 [id number] 13:45:00 13:45:00 James Andry Salvador 2019-08-19 2019-08-19 [facility] [id number] 14:49:00 14:49:00 [facility] [employer] [facility] Outpat[facility] Clinics 2019-07-20 2019-07-20 [facility] [id number] 15:09:00 15:09:00 [facility] [employer] [facility] [employer] [facility] Out[facility] Clinics 2019-06-30 2019-06-30 [facility] [id number] 08:49:00 08:49:00 [facility] [employer] [facility] [employer] [facility] Outpati ent Clinics 2019-06-27 2019-06-27 [facility] [id number] 15:00:00 15:00:00 [facility] [employer] [facility] [employer] [facility] Outpati ent Clinics 2019-06-08 2019-06-17 Inpatient [facility] [id number] [place] [address] 00:00:00 00:00:00 DENZEL [address] 2019-05-13 2019-05-13 [id number] 15:00:00 15:00:00 Jmaes 03 [place] 2019-03-15 2019-03-15 [facility] [id number] [address] 16:15:00 16:15:00 [facility] [employer] [facility] [employer] [facility] Outpati ent Clinics 2019-02-22 2019-02-22 [facility] [id number] 10:56:00 10:56:00 [facility] [employer] [facility] [employer] [facility] Medicine Outpati ent Clinics 2019-01-21 2019-01-21 [facility] [id number] 16:26:00 16:26:00 [facility] [employer] [facility] Medicine Outpati ent Clinics 2018-12-07 2018-12-07 [facility] [id number] 14:15:00 14:15:00 t Specialty/U Karine kes - Specialty rology [facility] a /Urology Clinic l Clinic Outpati ent Clinics 2018-12-01 2018-12-01 [facility] [id number] 14:15:00 14:15:00 t [employer] [facility] Medicine Outpati ent Clinics 2018-11-10 2018-11-10 [facility] [id number] 15:15:00 15:15:00 [facility] [employer] [facility] [employer] [facility] Medicine Outpati ent Clinics 2018-08-17 2018-08-18 Outpatient MHMISCHER MHMISCHER [id number] 15:18:00 23:59:59 02 2018-08-13 2018-08-13 Outpatient Earl MISCHER MHMISCHER [id number] 15:45:00 23:59:59 James Salvador 2018-08-12 2018-08-12 [facility] [id number] 16:00:00 16:00:00 t [place] [employer] [facility] - [employer] [facility] Medicine Outpati ent Clinics 2018-05-19 2018-05-19 [facility] [id number] 08:50:00 08:50:00 t [employer] [facility] [employer] [facility] Medicine Outpati ent Clinics 2018-05-11 2018-05-11 [facility] [id number] 09:14:00 09:14:00 t [employer] [facility] [employer] [facility] Medicine Outpati ent Clinics 2018-04-07 2018-04-07 [facility] [id number] 15:15:00 15:15:00 t [place] Crisp[place] s - Drive [facility] l Medicine Outpati ent Clinics 2018-04-05 2018-04-05 [facility] [id number] 10:00:00 10:00:00 t [place] [employer] [facility] - [employer] [facility] l Medicine Outpati ent Clinics 2018-03-31 2018-03-31 [facility] [id number] 09:00:00 09:00:00 t [place] Cris[place] s - [facility] Medicine Outpati ent Clinics 2018-03-23 2018-03-23 [facility] [id number] 09:00:00 09:00:[address] Luke s - Drive [facility] Medicine l Medicine Outpati ent Clinics 2018-03-04 2018-03-04 [facility] [id number] 16:21:00 16:21:[address] Luke s - Drive [facility] Medicine l Medicine Outpati ent Clinics 2018-02-24 2018-02-24 [facility] [id number] 16:02:00 16:02:[address] Luke s - Drive [facility] l Medicine Outpati ent Clinics 2018-02-24 2018-02-24 [facility] [id number] 14:30:00 14:30:00 t [place] [employer] Luke s - Drive [facility] Medicine l Medicine Outpati ent Clinics 2018-02-15 2018-02-15 [facility] [id number] 16:32:00 16:32:[address] Luke s - Drive [facility] Medicine l Medicine Outpati ent Clinics 2018-01-01 2018-01-01 [facility] [id number] 10:03:00 10:03:00 t [place] [employer] Luke s - Drive [facility] Medicine l Medicine Outpati ent Clinics 2017-12-30 2017-12-30 [facility] [id number] 16:56:00 16:56:[address] Luke s - Drive [facility] Medicine Outpati ent Clinics 2017-12-30 2017-12-30 [facility] [id number] 14:30:00 14:30:[address] Luke s - Drive [facility] Medicine l Medicine Outpati ent Clinics 2017-12-24 2017-12-24 [facility] [id number] 09:12:00 09:12:00 t [place] [employer] Luke s - Drive [facility] l Medicine Outpati ent Clinics 2017-12-22 2017-12-22 [facility] [id number] 08:18:00 08:18:[address] Luke s - Drive [facility] Family Medicine Medicine Outpati ent Clinics 2017-12-10 2017-12-10 [facility] [id number] 13:37:00 13:37:[address] Luke s - Drive [facility] Medicine Medicine Outpati ent Clinics 2017-12-03 2017-12-03 [facility] [id number] 15:29:00 15:29:[address] Luke s - Drive [facility] Medicine Medicine Outpati ent Clinics 2017-12-01 2017-12-01 [facility] [id number] 10:54:00 10:54:[address] Luke s - Drive [facility] Medicine Outpati ent Clinics 2017-11-13 2017-11-13 [facility] [id number] 12:22:00 12:22:[address] Luke s - Drive [facility] Medicine Medicine Outpati ent Clinics 2017-11-13 2017-11-13 [facility] [id number] 09:51:00 09:51:[address] Luke s - Drive [facility] Medicine Medicine Outpati ent Clinics 2017-11-10 2017-11-10 [facility] [id number] 15:34:00 15:34:[address] Luke s - Drive [facility] Medicine Medicine Outpati ent Clinics 2017-11-04 2017-11-04 [facility] [id number] 15:30:00 15:30:[address] Luke s - Drive [facility] Medicine Outpati ent Clinics 2016-05-24 2016-05-30 Outpatient [facility] [id number] 20:36:00 11:59:00 Abraham Reid 67 Results Test Description Test Time Test Comments Results Result Comments Source aPTT 2021-02-08 04:55:00 Test Item Value Reference Range Interpretation Comme nts PTT (test code = 39986-4) 28.5 See_Comment [ Automated message] The system which generated this result transmitted ref erence range: 22.5 - 36.0 seconds. The reference range was not u sed to interpret this result as normal/abnormal. Lab Interpretation (test code = Normal 26553-0) [facility]00 Test Item Value Reference Range Interpretation Comments PARTIAL THROMBOPLASTIN TIME 28.5 seconds 22.5-36.0 (BEAKER) (test code = 760) Prothrombin time/[id number] 04:54:00 Test Item Value Reference Interpretation Comments [...] valves. Lab Interpretation Normal (test code = 77848-3) [facility]/[id number] 04:54:00 Test Item Value Reference Range Interpretation Comments PROTIME (BEAKER) 13.8 seconds 11.9-14.2 (test code = 759) INR (BEAKER) (test 1.08 See_Comment [Automat ed message] code = 370) The system [employer] generated this result transmitted ref erence range: [...] 5.1 See_Comment [A utomated message] The system [employer] generated this result transmitted ref erence range: 3.5 - 10 .5 K/L. The refe rence range was not u sed to interpret this result as normal/abnor mal. RBC (test code = 789-8) 4.12 See_Comment L [Au tomated message] The system [employer] generated this result transmitted ref erence range: 4.63 - 6 .08 M/L. The refe rence range was not u sed to interpret this result as normal/abnor mal. MCHC (test code = 786-4) 32.1 See_Comment L [A utomated message] The system [employer] generated this result transmitted ref erence range: [...] See_Comment [Aut omated message] 777-3) The system [employer] generated this result transmitted ref erence range: 150 - 45 0 K/CU MM. The referen ce range was not u sed to interpret this result as normal/abnor mal. MPV (test code = 10.2 fL 9.4-12.4 53058-1) nRBC (test code = 413) 0 See_Comment [Aut omated message] The system [employer] generated this result transmitted ref erence range: 0 - 0 /1 00 WBC. The refere nce range was not u sed to interpret this result as normal/abnor mal. Lab Interpretation (test Abnormal code = 84272-2) [facility] (HEMOGRAM ONLY)2021-02-08 04:33:00 Test Item Value Reference [...] (BEAKER) (test code = 413) U/S, ABDOMINAL, [id number] 04:13:00Reason for exam:->H/O ABDOMINAL AORTIC ANEURYSMShould this be performed at the bedside?->No [facility] 1945 Sex: MFINAL REPORT [...] the renal arteries. S igned: Blanka [place] [facility] Verified Date/Time: 02/08/2021 04:13:46 Electronically signedby: BLANKA CLEVELAND MD on 02/08/2021 04:13 AMUS abdomen [id number] 04:13:00Interface, External Ris In - 02/08/2021 4:16 [...] level of the renal arteries. Signed: Blanka [place] MDReport Verified Date/Time: 02/08/2021 04:13:46 [facility]17[facility]00 Test Item Value Reference Range Interpretation Comments PARTIAL THROMBOPLASTIN TIME 28.6 seconds 22.5-36.0 (BEAKER) (test code = 760) RBAIN's Only(Ankle/Brachial Index)2021-02-07 19:35:04Ejection [facility] ECHO HEARTLAB MKCKESSON CPACSRight Impression1. The posterior [...] Study 02/07/2021 DOROTEO Age 75 Visit Number [id number] Gender Male Accession Number [id number] Date of 1945 Referring alfie hwang Room Number 1018 Physician Cart Pusher Darlene Moore T Physician ProcedureType of Study: [...] in cm/s ; Diameters are measured in [facility] Arterial doppler legs [id number] 19:34:34Ejection FractionSLEH ECHO HEARTLAB MKCKESSON CPACSRight Impression1. [...] + + + + + + !Prox CAMP COORDINATOR ! !0 ! ! ! !0 ! ! ! + + + + + + + + + + !Mid CAMP COORDINATOR ! !0 ! ! ! !86.4 ! ! ! + + + + + + + + + + !Dist CAMP COORDINATOR ! !14.1 ! ! ! !42 ! [...] Study 02/07/2021 DOROTEO Age 75 Visit Number [id number] Gender Male Accession Number [id number] Date of 1945 Referring alfie hwang Room Number 1018 Physician Cart Pusher Guerda Mayfield, Interpreting Sangeeta Shaw T Physician ProcedureType of Study: Extremities Arteries: [...] + + + + + + !Prox CAMP COORDINATOR ! !0 ! ! ! !0 ! ! ! + + + + + + + --------+ + + !Mid CAMP COORDINATOR ! !0 ! ! ! !86.4 ! ! ! + + + + + + + + + + !Dist CAMP COORDINATOR ! !14.1 ! ! ! !42 ! [...] + + + !Dist Peroneal ! +-------- +[facility] Hospital[facility]atic function [id number] 12:57:00 Test Item Value Reference Range Interpretation Comments Protein, Total (test 6.0 See_Comment [Autom ated code = 2885-2) message] The system which generated this result transmit jaime reference range : 6.0 - 8.3 gm/dL . The reference range was not u sed to interpret th is result as normal/abnormal . Albumin (test code = 3.4 g/dL 3.5-5 L 92102-0) Total Bilirubin (test 0.5 mg/dL 0.2-1.2 code = 1974-2) Bilirubin, Direct 0.2 mg/dL 0.1-0.5 (test code = 1967-7) Alkaline Phosphatase 129 U/L 40-150 (test code = 6768-6) AST (test code = 10 U/L 34 0-8) ALT (test code = 7 U/L 2-6) MICHELLE (test code = MICHELLE) Rivet Hole Puncher ID - PIAYA L Lab Interpretation Abnormal (test code = 30833-1) [facility]AT[facility] FUNCTION [id number] 12:57:00 Test Item Value Reference Range Interpretation [...] (test code = 7 U/L 6-55 347) Rivet [employer] Puncher OLVIN PÉREZ2021-07-01 12:51:00 Test Item Value Reference Range Interpretation Comments PARTIAL THROMBOPLASTIN TIME 56.0 seconds 22.5-36.0 H (BEAKER) (test code = 760) Basic Metabolic [id number] 06:12:00 Test Item Value Reference Range Interpretation [...] Calcium (test code = 8.4 mg/dL 8.4-10.2 24519-0) EGFR (test code = 54 mL/min/1.73 [place] [address]-2) NOT ACCURATE CREATININE CLEARANCE IN PREDICTING GLOMERULAR FILTRATION RATE . ESTIMATED GFR I S NOT APPLICABLE FOR DIALYSIS PATIENTS. MICHELLE (test code = MICHELLE) Rivet Hole Puncher OLVIN [place] Lab Interpretation Abnormal (test code = 80348-9) [facility] METABOLIC [id number] 06:12:00 Test Item Value Reference Range Interpretation [...] GFR I S NOT APPLICABLE FOR DIALYSIS PATISHIRA TS. Rivet Hole Puncher ID - PIAYA [id number] 05:39:00 Test Item Value Reference Range Interpretation [...] WBC 0-0 (BEAKER) (test code = 413) [id number] 00:37:00 Test Item Value Reference Range Interpretation Comments PARTIAL THROMBOPLASTIN TIME 139.7 seconds 22.5-36.0 H (BEAKER) (test code = 760) [id number] 17:29:00 Test Item Value Reference Range Interpretation Comments PARTIAL THROMBOPLASTIN TIME 39.7 seconds 22.5-36.0 H (BEAKER) (test code = 760) Hemoglobin [id number] 14:06:00 Test Item Value Reference Range Interpretation Comments Hemoglobin A1C (test code = 4548-4) 5.1 % 4.3-6.1 Lab Interpretation (test code = Normal 83240-7) [facility]MO[facility] [id number] 14:06:00 Test Item Value Reference Range Interpretation Comments HEMOGLOBIN A1C (BEAKER) (test code = 5.1 % 4.3-6.1 368) [id number] 12:57:00 Test Item Value Reference Range Interpretation Comments PARTIAL THROMBOPLASTIN TIME 197.1 seconds 22.5-36.0 HH (BEAKER) (test code = 760) Lipid [id number] 09:02:00 Test Item Value Reference Range Interpretation Comments Triglycerides (test 117 mg/dL code = 2571-8) Cholesterol (test code 284 mg/dL = 2093-3) HDL (test code = 53 mg/dL 5-9) LDL Calculated (test 208 mg/dL code = 29529-3) MICHELLE (test code = MICHELLE) Triglyceride Reference Range: Low Risk <150 Borderline 150-199 High Risk 200-499 Very High Risk >=500 Cholesterol Reference Range: Low Risk <200 Borderline 200-239 High Risk >240 HDL Cholesterol Reference Range: Low Risk >=60 High Risk <40 LDL Cholesterol Reference Range: Optimal <100 Near Optimal 100-129 Borderline 130-159 High 160-189 Very High >=190 Rivet Hole Puncher OLVIN [place] [facility] [id number] 09:02:00 Test Item Value Reference Range Interpretation [...] Borderline 130-159 High 160-189 Very High >=190 Rivet Hole Puncher ID - [id number] 05:12:00 Test Item Value Reference Range Interpretation Comments PARTIAL THROMBOPLASTIN TIME 82.1 seconds 22.5-36.0 H (BEAKER) (test code = 760) BASIC METABOLIC [id number] 05:12:00 Test Item Value Reference Range Interpretation [...] S NOT APPLICABLE FOR DIALYSIS PATIEN TS. Rivet Hole Puncher ID - RAFAL [facility] (HEMOGRAM ONLY)2021-02-06 04:47:00 Test Item Value Reference [...] WBC 0-0 (BEAKER) (test code = 413) [id number] 00:11:00 Test Item Value Reference Range Interpretation Comments PARTIAL THROMBOPLASTIN TIME > seconds 22.5-36.0 HH (BEAKER) (test code = 760) PROTHROMBIN TIME/[id number] 17:36:00 Test Item Value Reference Range Interpretation Comments PROTIME (BEAKER) 18.5 seconds 11.9-14.2 H (test code = 759) INR (BEAKER) (test 1.57 See_Comment [Automat ed message] code = 370) The system [employer] generated this result transmitted ref erence range: <=5.90. The reference range was not used to int erpret this result as normal/abnormal . RECOMMENDED COUMADIN/WARFARIN INR THERAPY RANGESSTANDARD DOSE: 2.0 - 3.0 Includes: PROPHYLAXIS forvenous thrombosis, systemic embolization; TREATMENT for venous thrombosis and/or pulmonary embolus.HIGH RISK: Target INR is 2.5-3.5 for patients with mechanical heart valves.[id number] 16:49:00 Test Item Value Reference Range Interpretation Comments PARTIAL THROMBOPLASTIN TIME 58.8 seconds 22.5-36.0 H (BEAKER) (test code = 760) [id number] 16:06:00 Test Item Value Reference Range Interpretation Comments PARTIAL THROMBOPLASTIN TIME 120.3 seconds 22.5-36.0 H (BEAKER) (test code = 760) PROTHROMBIN TIME/[id number] 15:54:00 Test Item Value Reference Range Interpretation Comments PROTIME (BEAKER) 17.4 seconds 11.9-14.2 H (test code = 759) INR (BEAKER) (test 1.45 See_Comment [Automat ed message] code = 370) The system [employer] generated this result transmitted ref erence range: <=5.90. The reference range was not used to int erpret this result as normal/abnormal . RECOMMENDED COUMADIN/WARFARIN INR THERAPY RANGESSTANDARD DOSE: 2.0 - 3.0 Includes: PROPHYLAXIS forvenous thrombosis, systemic embolization; TREATMENT for venous thrombosis and/or pulmonary embolus.HIGH RISK: Target INR is 2.5-3.5 for patients with mechanical heart valves.[id number] 13:49:00 Test Item Value Reference Range Interpretation Comments PARTIAL THROMBOPLASTIN TIME > seconds 22.5-36.0 HH (BEAKER) (test code = 760) [id number] 12:37:00 Test Item Value Reference Range Interpretation Comments PARTIAL THROMBOPLASTIN TIME > seconds 22.5-36.0 HH (BEAKER) (test code = 760) Carotid doppler [id number] 07:50:56Ejection FractionSLEH ECHO HEARTLAB MKCKESSON CPACSRight Impression1. [...] - Carotid Duplex Study Demographics Patient Name PINDEA MCKEON Date of Study 02/04/2021 DOROTEO Hodan RN [id number] Age 75 Visit Number [id number] Gender Male Accession Number [id number] Date of 1945 Referring [facility] Room Number 2C23 Physician Gatito Cart Pusher Geovanni Warner Interpreting Sangeeta Shaw Physician ProcedureType [...] left side. - Additional Raysa surements:ICAPSV/CCAPSV 2.3.ICAEDV/CCAEDV 3.69.[facility] Pulmonary Funct Lab bedside [id number] 07:50:00Darren Roy, NICOLASA, LINKER UP 02/05/2021 8:00 [facility] PFT CHARTING REPORT Infection Control/Hand Hyg iene procedures followed throughout the encounter with patient: YesPatient Identification Method: Patient name verified on armband, and Medical record on armband, Is the order complete?: Yes Account ID#: [id number] Name: Pineda Mckeon Birthdate: 1945 Age: 75 [...] patient released from the lab without adverse outcome.[facility] 12 [id number] 06:31:26Interface, External Ris In - 02/05/2021 6:31 AM CDTVentricular Rate 63 BPMAtrial Rate 63 BPMP-R Inte rval 170 msQRS Duration 94 msQ-T Interval 456 msQTC Calculation(Bazett) 466 msP Cleveland 77 degreesR Cleveland -32 degreesT [place] 52 degreesNormal sinus rhythmLeft axis deviationIncomplete right bundle branch blockSeptal infarct (cited on or before 04-FEB-2021)Abnormal ECGWhen compared with ECG of 04-FEB-2021 13:36,No significant change was foundConfirmed by MD CELSO, ALFIE Wesley ([id number]) on 02/05/2021 6:31:21 [facility] [id number] 05:20:00 Test Item Value Reference Range Interpretation Comments SODIUM (BEAKER) 131 meq/L 136-145 L (test code = 381) POTASSIUM (BEAKER) 3.4 meq/L 3.5-5.1 L (test code = 379) CHLORIDE (BEAKER) 97 meq/L 98-107 L (test code = 382) CO2 (BEAKER) (test 25 meq/L code = 355) BLOOD UREA NITROGEN 12 [...] S NOT APPLICABLE FOR DIALYSIS PATIEN TS. Rivet Hole Puncher ID - PIAYA [id number] 05:02:00 Test Item Value Reference Range Interpretation [...] Not Detected, (test code = Negative, See 80242-5) external report for linked test SARS-COV-2 [facility] SERVANDO PERFORMING LAB (test code = 69038-2) MICHELLE (test code = Negative result for this MICEHLLE) test determines that SARS-CoV-2 RNA was not [...] of the Act. Fact Sheet for Healthcare Providers:https://www.tuul idel.Bevii/sites/default/f neelima/product/documents/F act_Sheet_HC_Providers_L hwo_CVUM-UaQ-4.pdf Fact Sheet for Healthcare Patients:https://www.ITelagen del.com/sites/default/fi les/product/documents/Fa ct_Sheet_Patients_Lyra_S ARS-CoV-2.pdf Performing Laboratory:[facility] [place] [address] [facility] REF [facility])2021-02-04 23:58:00 Test Item Value Reference Range Interpretation Comments SARS-COV2/RT-PCR (test Negative Not Detected, Negative, code = 0849374) See external report for linked test SARS-COV-2 PERFORMING LAB [facility] SERVANDO (test code = 3145350) Negative result for this test determines that [...] 564(g) of the Act.Fact Sheet for Healthcare Providers:https://www.iMER.Bevii/sites/default/files/product/documents/Fact_Shee z_SH_Jowdacoow_Jwzd_VOKJ-YqO-7.pdfFact Sheet for Healthcare Patients:https://www.iMER.Bevii/sites/default/files/product/ documents/Xbrz_Nipji_Tpiqqymm_Potk_NTHK-YzK-1.pdfPerforming Laboratory:[facility].[place], [place] [id number] 23:24:00 Test Item Value Reference Range Interpretation Comments PARTIAL THROMBOPLASTIN TIME 68.5 seconds 22.5-36.0 H (BEAKER) (test code = 760) Antibody [id number] 18:45:00 Test Item Value Reference Range Interpretation Comments ANTIBODY ID (KIMBER) Anti-E (test code = 2253) Antibody Consult SIGNED OUT Anti E caus es RBC (test code = 2479) injury, t ransfuse E negative RBCs.Electronic Signature: Katiuska Hou M.D. [facility]2D Echo W/Doppler(CW/PW/Color)2021-02-04 18:01:22 Ejection FractionSLEH ECHO HEARTLAB MKCKESSON CPACSInterface, External Ris In - 02/04/2021 6:01 PM CDTTransthoracic Echocardiography Report (TTE) Demographics Patient Name PINEDA MCKEON Date ofStudy 02/04/2021 DOROTEO Gender Male Visit Number [id number] Race Number [id number] Number Date of 1945 Referring Physician Tiffanie Conley Age 75 year(s) Cart Pusher Pauline Minor [facility] Analog Device Designer Prashant Russell Interpreting Alfie Pelaez, Physician Procedure Type of Study TTE proce [...] ml LVOTCO: 5.08 l/min LVOT CI: 2.76 l/min/m^2CRobert H. Ballard Rehabilitation HospitalPrepare [id number] 15:33:00 Test Item Value Reference Range Interpretation Comments Unit ABO (test code = O Pos 7015161) UNIT NUMBER (test code = [id number] 934-0) Status (test code = 9588972) READY Blood Bank Product (test code RED BLOOD CELLS = 2263) PRODUCT CODE (test code = H6706P56 933-2) CROSSMATCH (test code = 2264) COMPATIBLE [facility] HospitalType and screen, [id number] 15:33:00 Test Item Value Reference Range Interpretation Comments ABO/RH AUTOMATED (BEAKER) (test O POSITIVE code = 2260) Ab Scrn (test code = 890-4) POSITIVE ECHO 1 [facility] HospitalPROTHROMBIN TIME/[id number] 13:54:00 Test Item Value Reference Range Interpretation Comments PROTIME (BEAKER) 15.9 seconds 11.9-14.2 H (test code = 759) INR (BEAKER) (test 1.29 See_Comment [Automat ed message] code = 370) The system OffiSync generated this result transmitted ref erence range: <=5.90. The reference range was not used to int erpret this result as normal/abnormal . RECOMMENDED COUMADIN/WARFARIN INR THERAPY RANGESSTANDARD DOSE: 2.0 - 3.0 Includes: PROPHYLAXIS forvenous thrombosis, systemic embolization; TREATMENT for venous thrombosis and/or pulmonary embolus.HIGH RISK: Target INR is 2.5-3.5 for patients with mechanical heart valves.BASIC METABOLIC [id number] 13:51:00 Test Item Value Reference Range Interpretation [...] S NOT APPLICABLE FOR DIALYSIS PATIEN TS. Rivet Hole Puncher ID - [id number] 13:50:00 Test Item Value Reference Range Interpretation Comments PARTIAL THROMBOPLASTIN TIME 32.8 seconds 22.5-36.0 (BEAKER) (test code = 760) RAD, CHEST, 1 VIEW, NON [id number] 13:47:00Reason for exam:->Post-opShould this be performed at the bedside?->[facility] 1945 Sex: MFINAL REPORT RAD, CHEST, 1 VIEW, NON DEPT INDICATION: Post-op COMPAR RADHA: February 02, 2018 FINDINGS: Portable frontal view of the chest. IMPRESSION: Support Lines: NoneLungs and pleura: No consolidation or effusion. No pneumothorax.Heart and mediastinum: Stable contours. Stable valvular surgical changes.Additional findings: None. Signed: JR Keane Robert MDReport Verified Date/Time: 02/04/2021 13:47:39 Reading Location: [facility] Radiology Reading Room XR chest 1 view portable / [id number] 13:47:00 Interface, External Ris In - 02/04/2021 1:49 PM CDTFINAL REPORT RAD, CHEST, 1 VIEW, NON DEPT INDICATION: Post-op COMPARISON: February 02, 2018 FINDINGS: Portable frontal view of thechest. IMPRESSION: Support Lines: None Lungs and pleura: No consolidation or effusion. No pneumothorax.Heart and mediastinum: Stable contours. Stable valvular surgical changes.Additional findings: None. Signed: JR Keane Robert MDReport Verified Date/Time: 02/04/2021 13:47:39 Reading Location: [facility] Radiology Reading Room [facility] HOS[facility]ITALHI [facility] CenterMagnesium2021-06-28 13:46:00 Test Item Value Reference Range Interpretation Comments Magnesium (test code = 1.8 mg/dL 1.6-2.6 09086-2) MICHELLE (test code = MICHELLE) Rivet Hole Puncher ID - AAANNAID Lab Interpretation (test Normal code = 50866-0) [facility] HospitalPhosphorus2021-06-28 13:46:00 Test Item Value Reference Range Interpretation Comments Phosphorus (test code = 3.5 mg/dL 2.3-4.7 2777-1) MICHELLE (test code = MICHELLE) Rivet Hole Puncher ID - AAANNAID Lab Interpretation (test Normal code = 99035-7) [facility] HospitalMAGNESIUM2021-06-28 13:46:00 Test Item Value Reference Range Interpretation Comments MAGNESIUM (BEAKER) (test code = 1.8 mg/dL 1.6-2.6 627) Rivet Hole Puncher ID - [id number] 13:46:00 Test Item Value Reference Range Interpretation Comments PHOSPHORUS (BEAKER) (test code = 3.5 mg/dL 2.3-4.7 604) Rivet Hole Puncher ID - AAHAMIDCB with platelet count + automated [id number] 13:29:00 Test Item Value Reference Range Interpretation Comments WBC (test code = 6690-2) 5.7 See_Comment [A utomated message] The system OffiSync generated this result transmitted ref erence range: 3.5 - 10 .5 K/L. The refe rence range was not u sed to interpret this result as normal/abnor mal. RBC (test code = 789-8) 4.16 See_Comment L [Au tomated message] The system DynaPump generated this result transmitted ref erence range: 4.63 - 6 .08 M/L. The refe rence range was not u sed to interpret this result as normal/abnor mal. MCHC (test code = 786-4) 34.7 See_Comment L [A utomated message] The system OffiSync generated this result transmitted ref erence range: [...] code = 166 See_Comment [Aut omated message] 777-3) The system OffiSync generated this result transmitted ref erence range: 150 - 45 0 K/CU MM. The referen ce range was not u sed to interpret this result as normal/abnor mal. MPV (test code = 9.9 fL 9.4-12.4 85474-6) nRBC (test code = 413) 0 See_Comment [Aut omated message] The system OffiSync generated this result transmitted ref erence range: [...] See_Comment [Aut omated message] 670) The system OffiSync generated this result transmitted ref erence range: 1.78 - 5 .38 K/L. The refe rence range was not u sed to interpret this result as normal/abnor mal. # Lymphs (test code = 0.85 See_Comment L [Auto mated message] 414) The system OffiSync generated this result transmitted ref erence range: 1.32 - 3 .57 K/L. The refe rence range was not u sed to interpret this result as normal/abnor mal. # Monos (test code = 0.79 See_Comment [Autom ated message] 415) The system OffiSync generated this result transmitted ref erence range: 0.30 - 0 .82 K/L. The refe rence range was not u sed to interpret this result as normal/abnor mal. # Eos (test code = 416) 0.15 See_Comment [Au tomated message] The system OffiSync generated this result transmitted ref erence range: 0.04 - 0 .54 K/L. The refe rence range was not u sed to interpret this result as normal/abnor mal. # Baso (test code = 417) 0.02 See_Comment [A utomated message] The system OffiSync generated this result transmitted ref erence range: 0.01 - 0 .08 K/L. The refe rence range was not u sed to interpret this result as normal/abnor mal. Immature 1 % 0-1 Granulocytes-Relative (test code = 2801) Lab Interpretation (test Abnormal code = 33174-4) [facility] W/PLT COUNT & AUTO [id number] 13:29:00 Test Item Value Reference Range Interpretation [...] 0-1 PERCENT (BEAKER) (test code = 2801) [id number]-[id number] 00:00:00Ordered by an unspecified provider.[facility] HospitalAFB CULTURE + [id number] 20:50:00 Test Item Value Reference Range Interpretation Comments CULTURE (BEAKER) (test No acid-fast bacilli code = 1095) isolated in 42 days AFB SMEAR (BEAKER) No acid fast bacilli (test code = 994) seen AFB CULTURE + [id number] 20:50:00 Test Item Value Reference Range Interpretation Comments CULTURE (BEAKER) (test No acid-fast bacilli code = 1095) isolated in 42 days AFB SMEAR (BEAKER) No acid fast bacilli (test code = 994) seen FUNGUS CULTURE + [id number] 10:14:00 Test Item Value Reference Range Interpretation Comments CULTURE (BEAKER) (test No fungus isolated in code = 1095) 28 days FUNGUS SMEAR (BEAKER) No fungi seen (test code = 1406) FUNGUS CULTURE + [id number] 10:14:00 Test Item Value Reference Range Interpretation Comments CULTURE (BEAKER) (test No fungus isolated in code = 1095) 28 days FUNGUS SMEAR (BEAKER) No fungi seen (test code = 1406) VANCOMYCIN LEVEL, [id number] 05:33:00 Test Item Value Reference Range Interpretation Comments VANCOMYCIN RANDOM (BEAKER) (test 16.9 ug/mL code = 523) Reference Range: No NormalsBASIC METABOLIC [id number] 05:29:00 Test Item Value Reference Range Interpretation [...] NOT APPLICABLE FOR DIALYSIS PATIEN TS. PROTHROMBIN TIME/[id number] 05:21:00 Test Item Value Reference Range Interpretation [...] NOT APPLICABLE FOR DIALYSIS PATIEN TS. ANAEROBIC [id number] 08:59:00 Test Item Value Reference Range Interpretation Comments CULTURE (BEAKER) (test No anaerobes isolated code = 1095) ANAEROBIC [id number] 08:58:00 Test Item Value Reference Range Interpretation Comments CULTURE (BEAKER) (test No anaerobes isolated code = 1095) VANCOMYCIN LEVEL, [id number] 05:18:00 Test Item Value Reference Range Interpretation Comments VANCOMYCIN RANDOM (BEAKER) (test 19.8 ug/mL code = 523) Reference Range: No NormalsPROTHROMBIN TIME/[id number] 04:55:00 Test Item Value Reference Range Interpretation [...] 10.0-20.0 H code = 522) BASIC METABOLIC [id number] 15:13:00 Test Item Value Reference Range Interpretation [...] NOT APPLICABLE FOR DIALYSIS PATIEN TS. PROTHROMBIN TIME/[id number] 06:16:00 Test Item Value Reference Range Interpretation [...] heart valves.While on warfarin.LACTIC ACID, VENOUS, WHOLE [id number] 06:09:00 Test Item Value Reference Range Interpretation Comments LACTATE BLOOD VENOUS (2) (BEAKER) 0.6 mmol/L 0.5-2.2 (test code = 2872) Effective 12/12/2015: Units/Reference Range ChangeNew: 0.5-2.2 mmol/L Previous: 5-20 mg/dLTISSUE [id number] 11:35:00Surgical Pathology Report Case: [id number] Authorizing Provider: Aris Parker MD Collected: 03/23/2018 1136 Ordering Location: [facility] Received: 03/23/2018 1158 PERIOPERATIVE SERVICES Pathologist: Lanie Jaquez MD Specimen: Groin, Right, Right Groin Tissue SOFT TISSUE, RIGHT GROIN, DEBRIDEMENT: - FIBROADIPOSE TISSUE WITH FAT NECROSIS, ACUTE AND CHRONIC INFLAMMATION, AND FOREIGN BODY GIANT CELL REACTION Signing Pathologist Direct Phone Line: [phone] signed by Lanie Jaquez MD on 03/26/2018 at 11:35 [id number] groin tissueThe specimen is received in a formalin-filled container and labeled with the patient's information and labeled "right groin tissue" and consists of a segment of rodríguez-chapman hemorrhagic soft tissue measuring 3 x 1.6 x 0.5 cm. Check Processor sections are submitted A1.CG/pl Performed.SURGICALLY OBTAINED CULTURE + GRAM [id number] 09:47:00 Test Item Value Reference Range Interpretation Comments GRAM STAIN RESULT (BEAKER) <1+ WBCs (test code = 1123) GRAM STAIN RESULT (BEAKER) No organisms seen (test code = 87961) SURGICALLY OBTAINED CULTURE + GRAM [id number] 09:45:00 Test Item Value Reference Interpretation Comments [...] No organisms seen (BEAKER) (test code = 985337) BASIC METABOLIC [id number] 05:17:00 Test Item Value Reference Range Interpretation [...] NOT APPLICABLE FOR DIALYSIS PATIEN TS. PROTHROMBIN TIME/[id number] 05:06:00 Test Item Value Reference Range Interpretation [...] NOT APPLICABLE FOR DIALYSIS PATIEN TS. PROTHROMBIN TIME/[id number] 06:28:00 Test Item Value Reference Range Interpretation [...] valves.While on warfarin.CBC W/PLT COUNT & AUTO [id number] 06:18:00 Test Item Value Reference Range Interpretation [...] (BEAKER) (test code = 2801) VANCOMYCIN LEVEL, [id number] 17:22:00 Test Item Value Reference Range Interpretation Comments VANCOMYCIN TROUGH (BEAKER) (test 14.6 ug/mL 10.0-20.0 code = 522) SPIN/CONCENTRATION [id number] 10:53:00 Test Item Value Reference Range Interpretation Comments CONCENTRATION CHARGED (BEAKER) (test Done code = 2087) BASIC METABOLIC [id number] 07:34:00 Test Item Value Reference Range Interpretation [...] NOT APPLICABLE FOR DIALYSIS PATIEN TS. PROTHROMBIN TIME/[id number] 07:05:00 Test Item Value Reference Range Interpretation [...] (BEAKER) (test code = 2801) BASIC METABOLIC [id number] 06:54:00 Test Item Value Reference Range Interpretation [...] NOT APPLICABLE FOR DIALYSIS PATIEN TS. PROTHROMBIN TIME/[id number] 05:47:00 Test Item Value Reference Range Interpretation [...] PERCENT (BEAKER) (test code = 2801) TISSUE [id number] 16:28:00Surgical Pathology Report Case: [id number] Authorizing Provider: Christian Hdz MD Collected: 02/02/2018 194 Ordering Location: [facility] [employer] Received: 02/03/2018 0813 Pathologist: Sidney Wright MD Specimen: Plaque ARTERY, RIGHT EMERALD, ENDARTERECTOMY:CALCIFIC ATHEROSCLEROTIC PLAQUE WITH EROSION AND ATTACHED ORGANIZING THROMBUS Signing Pathologist Direct Phone Line: [phone] signed by Sidney Wright MDon 02/09/2018 at 4:28 [id number]; [id number] femoral artery plaqueRight femoral artery plaqueThe specimen is received in a formalin-filled container and labeled with the patient's information and labeled "right femoral artery plaque and consists of two calcified fragments of tissue both measuring 2 cm in length ranging in diameter from 0.6 to 1 cm and separate segment of hemorrhagic calcified tissue measuring 2.5 x 1.5 x 1 cm in aggregate. Check Processor sections are submitted A1 for decalcification. CG/pl [id number] 06:08:00 Test Item Value Reference Range Interpretation Comments PHOSPHORUS (BEAKER) (test code = 2.2 mg/dL 2.3-4.7 L 604) [id number] 06:08:00 Test Item Value Reference Range Interpretation Comments MAGNESIUM (BEAKER) (test code = 2.1 mg/dL 1.6-2.6 627) BASIC METABOLIC [id number] 06:08:00 Test Item Value Reference Range Interpretation [...] (BEAKER) (test code = 413) HEMOGLOBIN AND [id number] 11:55:00 Test Item Value Reference Range Interpretation Comments HEMOGLOBIN (BEAKER) (test code = 8.4 GM/DL 13.7-17.5 L 410) HEMATOCRIT (BEAKER) (test code = 28.9 % 40.1-51.0 L 411) [id number] 04:57:00 Test Item Value Reference Range Interpretation Comments PHOSPHORUS (BEAKER) (test code = 2.5 mg/dL 2.3-4.7 604) [id number] 04:57:00 Test Item Value Reference Range Interpretation Comments MAGNESIUM (BEAKER) (test code = 1.7 mg/dL 1.6-2.6 627) BASIC METABOLIC [id number] 04:57:00 Test Item Value Reference Range Interpretation [...] = 413) CBC W/PLT COUNT & AUTO [id number] 15:56:00 Test Item Value Reference Range Interpretation [...] (BEAKER) (test code = 2801) COMPREHENSIVE METABOLIC [id number] 05:49:00 Test Item Value Reference Range Interpretation [...] S NOT APPLICABLE FOR DIALYSIS PATIEN TS. [id number] 05:48:00 Test Item Value Reference Range Interpretation Comments PHOSPHORUS (BEAKER) (test code = 2.9 mg/dL 2.3-4.7 604) [id number] 05:48:00 Test Item Value Reference Range Interpretation Comments MAGNESIUM (BEAKER) (test code = 1.7 mg/dL 1.6-2.6 627) CBC W/PLT COUNT & AUTO [id number] 04:20:00 Test Item Value Reference Range Interpretation [...] (BEAKER) (test code = 2801) VANCOMYCIN LEVEL, [id number] 23:58:00 Test Item Value Reference Range Interpretation Comments VANCOMYCIN TROUGH (BEAKER) (test code < ug/mL 10.0-20.0 L = 522) PROTHROMBIN TIME/[id number] 23:27:00 Test Item Value Reference Range Interpretation Comments PROTIME (BEAKER) (test code = 15.6 seconds 11.7-14.7 H 759) INR (BEAKER) (test code = 370) 1.2 <=5.9 RECOMMENDED COUMADIN/WARFARIN INR THERAPY RANGESSTANDARD DOSE: 2.0 - 3.0 Includes: PROPHYLAXIS forvenous thrombosis, systemic embolization; TREATMENT for venous thrombosis and/or pulmonary embolus.HIGH RISK: Target INR is 2.5-3.5 for patients with mechanical heart valves.[id number] 23:27:00 Test Item Value Reference Range Interpretation Comments FIBRINOGEN LEVEL (BEAKER) (test 276 mg/dl 225-434 code = 658) [id number] 23:27:00 Test Item Value Reference Range Interpretation Comments PARTIAL THROMBOPLASTIN TIME 29.8 seconds 22.5-36.0 (BEAKER) (test code = 760) CBC W/PLT COUNT & AUTO [id number] 23:22:00 Test Item Value Reference Range Interpretation [...] 0-1 PERCENT (BEAKER) (test code = 2801) [id number] 23:21:00 Test Item Value Reference Range Interpretation Comments PHOSPHORUS (BEAKER) (test code = 3.1 mg/dL 2.3-4.7 604) [id number] 23:21:00 Test Item Value Reference Range Interpretation Comments MAGNESIUM (BEAKER) (test code = 1.7 mg/dL 1.6-2.6 627) BASIC METABOLIC [id number] 23:21:00 Test Item Value Reference Range Interpretation [...] APPLICABLE FOR DIALYSIS PATIEN TS. HEPATIC FUNCTION [id number] 23:21:00 Test Item Value Reference Range Interpretation [...] U/L 6-55 347) LACTIC ACID, ARTERIAL, WHOLE [id number] 23:15:00 Test Item Value Reference Range Interpretation Comments LACTATE BLOOD ARTERIAL (2) 1.7 mmol/L 0.5-2.2 (BEAKER) (test code = 2874) Effective 12/12/2015: Units/Reference Range ChangeNew: 0.5-2.2 mmol/L Previous: 5-20 mg/dLRAD, CHEST, 1 VIEW, NON [id number] 23:12:00Reason for exam:- >s/p cardiac surgeryShould this [...] MDReport Verified Date/Time: 02/02/2018 23:12:37 Reading Location: [address] Consult Reading Room Electronicallysigned by: DENZEL HUITRON MD on 02/02/2018 11:12 PMHEMOGLOBIN AND [id number] 23:06:00 Test Item Value Reference Range Interpretation Comments HEMOGLOBIN (BEAKER) (test code = 11.3 GM/DL 13.7-17.5 L 410) HEMATOCRIT (BEAKER) (test code = 37.7 % 40.1-51.0 L 411) CALCIUM, [id number] 22:57:00 Test Item Value Reference Range Interpretation Comments CALCIUM IONIZED (BEAKER) (test 1.02 mmol/L 1.12-1.27 L code = 698) PH, BLOOD (BEAKER) (test code = 7.38 1810) OXYGEN SATURATION, [id number] 22:56:00 Test Item Value Reference Range Interpretation Comments O2 SATURATION (MEASURED) (BEAKER) 72.2 % (test code = 1455) PROTHROMBIN [id number] 19:20:00 Test Item Value Reference Range Interpretation Comments PROTIME (BEAKER) (test code = 17.6 seconds 11.7-14.7 H 759) INR (BEAKER) (test code = 370) 1.5 <=5.9 RECOMMENDED COUMADIN/WARFARIN INR THERAPY RANGESSTANDARD DOSE: 2.0 - 3.0 Includes: PROPHYLAXIS forvenous thrombosis, systemic embolization; TREATMENT for venous thrombosis and/or pulmonary embolus.HIGH RISK: Target INR is 2.5-3.5 for patients with mechanical heart valves.[id number] 19:20:00 Test Item Value Reference Range Interpretation Comments FIBRINOGEN LEVEL (BEAKER) (test 240 mg/dl 225-434 code = 658) [id number] 19:20:00 Test Item Value Reference Range Interpretation Comments PARTIAL THROMBOPLASTIN TIME 33.3 seconds 22.5-36.0 (BEAKER) (test code = 760) PLATELET [id number] 19:00:00 Test Item Value Reference Range Interpretation Comments PLATELET COUNT (BEAKER) (test 149 K/CU MM 150-450 L code = 756) POTASSIUM-STAT [id number] 18:54:00 Test Item Value Reference Range Interpretation Comments POTASSIUM (BEAKER) (test code = 4.2 meq/L 3.6-5.5 379) HEMOGLOBIN-STAT [id number] 18:54:00 Test Item Value Reference Range Interpretation Comments HEMOGLOBIN (BEAKER) (test code = 9.9 g/dL 13.0-16.8 L 410) HEMATOCRIT-STAT [id number] 18:54:00 Test Item Value Reference Range Interpretation Comments HEMATOCRIT (BEAKER) (test code = 411) 29.0 % 40.0-50.0 L BLOOD GAS, [id number] 18:54:00 Test Item Value Reference Range Interpretation [...] C (test code = 1818) SODIUM NA-STAT [id number] 18:54:00 Test Item Value Reference Range Interpretation Comments SODIUM (BEAKER) (test code = 381) 133 meq/L 135-148 L GLUCOSE-STAT [id number] 18:54:00 Test Item Value Reference Range Interpretation Comments GLUCOSE RANDOM (BEAKER) (test code 134 mg/dL 70-110 H = 652) HGB/HCT (H&H) - STAT [id number] 18:54:00 Test Item Value Reference Range Interpretation Comments HEMOGLOBIN (BEAKER) (test code = 9.9 GM/DL 13.0-16.8 L 410) HEMATOCRIT (BEAKER) (test code = 29.0 % 40.0-50.0 L 411) CALCIUM, [id number] 18:54:00 Test Item Value Reference Range Interpretation Comments CALCIUM IONIZED (BEAKER) (test 1.03 mmol/L 1.12-1.27 L code = 698) PH, BLOOD (BEAKER) (test code = 7.37 1810) CALCIUM, [id number] 18:13:00 Test Item Value Reference Range Interpretation Comments CALCIUM IONIZED (BEAKER) (test 1.02 mmol/L 1.12-1.27 L code = 698) PH, BLOOD (BEAKER) (test code = 7.36 1810) [id number] 17:42:00 Test Item Value Reference Range Interpretation Comments ACTIVATED CLOTTING TIME 279 sec TEST ED AT [place] [address] ([facility]) (test code = DIMITRIS Ag [place] [address]) [address] [id number] 17:42:00 Test Item Value Reference Range Interpretation Comments ACTIVATED CLOTTING TIME 224 sec TEST ED AT [place] [address] ([facility]) (test code = [place] [address]) [address] [id number] 17:42:00 Test Item Value Reference Range Interpretation Comments ACTIVATED CLOTTING TIME 158 sec TEST ED AT [place] [address] ([facility]) (test code = [place] [address]) [address] HGB/HCT (H&H) - STAT [id number] 16:30:00 Test Item Value Reference Range Interpretation Comments HEMOGLOBIN (BEAKER) (test code = 9.9 GM/DL 13.0-16.8 L 410) HEMATOCRIT (BEAKER) (test code = 29.0 % 40.0-50.0 L 411) POTASSIUM-STAT [id number] 16:30:00 Test Item Value Reference Range Interpretation Comments POTASSIUM (BEAKER) (test code = 3.7 meq/L 3.6-5.5 379) SODIUM NA-STAT [id number] 16:30:00 Test Item Value Reference Range Interpretation Comments SODIUM (BEAKER) (test code = 381) 134 meq/L 135-148 L GLUCOSE-STAT [id number] 16:30:00 Test Item Value Reference Range Interpretation Comments GLUCOSE RANDOM (BEAKER) (test code 105 mg/dL 70-110 = 652) [id number] 16:17:00 Test Item Value Reference Range Interpretation Comments ACTIVATED CLOTTING TIME 301 sec TEST ED AT [facility] 67 (BEAKER) (test code = [place] [address]) [address] BLOOD GAS, [id number] 16:16:00 Test Item Value Reference Range Interpretation [...] (test 37.0 C code = 1818) CALCIUM, [id number] 16:11:00 Test Item Value Reference Range Interpretation Comments CALCIUM IONIZED (BEAKER) (test 1.09 mmol/L 1.12-1.27 L code = 698) PH, BLOOD (BEAKER) (test code = 7.42 1810) MR, MRA, EXTREMITY, LOWER, WITHOUT FOLLOW, WITH [id number] 17:43:00 Bilateral extremitiesNeil E Strickman MD [facility] Yoni Hdz MD [facility] – MCALESTERlinical Professor [facility] And [facility] CenterCo Windows Mobile Developer of P[employer] Services at [facility]/Melba of Peripheral Vascular Medicine at [place] [address] [phone] [place], [place] [email or web address] REPORT MRA of the lower extremities, 28 [...] reconstruction was performed by an independent workstation (Playmysong). Please refer to the contrast sheetscanned in [...] CT scan. The proximal abdominal aorta is capitan grande. The celiac axis, SMA are patent with [...] coil embolisation procedure as per EPIC. The capitan grande left external iliac artery and the left [...] centimeters of the left SFA could be capitan grande. However, there is likely a left femoral [...] posterior tibial artery. In the right, the capitan grande right SFA is seen to be occluded. [...] though thereafter, it is occluded. 4. The capitan grande left SFA is likely occluded and a left femoral to distal popliteal bypass graft is identified that is patent with no proximal or distal anastomotic stenosis. Essentially three-vessel runoff is seen in the left lower extremity. 5. In the right, the capitan grande right SFA is o ccluded. It appears [...] MDReport Verified Date/Time: 01/28/2018 17:43:09 Reading Location: [facility] [id number] Cardiology MRI C METABOLIC [id number] 07:36:00 Test Item Value Reference Range Interpretation [...] 0-0 (BEAKER) (test code = 413) PROTHROMBIN [id number] 14:15:00 Test Item Value Reference Range Interpretation [...] valves.Within 24 hours, if on CoumadinBASIC METABOLIC [id number] 06:41:00 Test Item Value Reference Range Interpretation [...] (BEAKER) (test code = 413) BLOOD GAS, [id number] 10:39:00 Test Item Value Reference Range Interpretation [...] code = 1819) 46.0 % SODIUM NA-STAT [id number] 10:39:00 Test Item Value Reference Range Interpretation Comments SODIUM (BEAKER) (test code = 381) 131 meq/L 135-148 L POTASSIUM-STAT [id number] 10:39:00 Test Item Value Reference Range Interpretation Comments POTASSIUM (BEAKER) (test code = 3.1 meq/L 3.6-5.5 L 379) GLUCOSE-STAT [id number] 10:39:00 Test Item Value Reference Range Interpretation Comments GLUCOSE RANDOM (BEAKER) (test code 121 mg/dL 70-110 H = 652) HGB/HCT (H&H) - STAT [id number] 10:39:00 Test Item Value Reference Range Interpretation Comments HEMOGLOBIN (BEAKER) (test code = 8.1 g/dL 13.0-16.8 L 410) HEMATOCRIT (BEAKER) (test code = 24.0 % 40.0-50.0 L 411) [id number] 10:10:00 Test Item Value Reference Range Interpretation Comments ACTIVATED CLOTTING TIME 224 sec TEST ED AT [facility] 6720 (BEAKER) (test code = [place] [address]) [id number] CBC (HEMOGRAM ONLY)2017-12-05 06:51:00 Test Item Value [...] (BEAKER) (test code = 413) BASIC METABOLIC [id number] 06:44:00 Test Item Value Reference Range Interpretation [...] S NOT APPLICABLE FOR DIALYSIS PATIEN TS. [id number] 12:39:00 Test Item Value Reference Range Interpretation Comments ACTIVATED CLOTTING TIME 136 sec TEST ED AT [place] [address] ([facility]) (test code = [place] [address]) [address] [id number] 11:51:00 Test Item Value Reference Range Interpretation Comments ACTIVATED CLOTTING TIME 147 sec TEST ED AT [place] [address] ([facility]) (test code = [place] [address]) [address] [id number] 09:21:00 Test Item Value Reference Range Interpretation Comments ACTIVATED CLOTTING TIME 213 sec TEST ED AT [facility] 6720 (KIMBER) (test code = [place] [address]) [address] [id number] 08:58:00 Test Item Value Reference Range Interpretation Comments ACTIVATED CLOTTING TIME 191 sec TEST ED AT [facility] 6720 (KIMBRE) (test code = [place] [address]) [address] CT, CTA [id number] 11:56:00Addendum BeginsREPORT STATUS:A Addendum: The images were reviewed with Dr. Hdz. There is a missing dictation, specifically, despite the aortic bypass surgery the capitan grande left common iliac artery is still patent with retrograde filling from the left external iliac artery, with aneurysmal dilation identified. Image 466, it measures approximately 4.3 x 4.2 cm in diameter. Some intraluminal thrombus is seen. This is the left common iliac artery. The left internal iliac artery is also patent, with calcification present. Signed: Juwan Ramirez Verified Date/Time: 11/27/2017 11:56:33 Reading Location: [place] [address] Cardiology MRIAddendum EndsAddendum BeginsREPORT STATUS:A ADDENDUM: Study [...] [place] Verified Date/Time: 11/26/2017 18:03:42 Reading Location: [facility] P048 Angio Body Reading RoomAddendum [...] takeoff of the left renal artery with pfzt-es-vdwrgzyz stenosis identified. Arch vessel branching pattern is [...] mm, respectively with m ild tortuosity and lwlf-et-lkgbagck calcific atherosclerosis present. Right iliac limb is [...] dictated, however, the ordering physician is the COMMUNICATIONS ASSOCIATE GRANTS MANAGER of the [facility] and therefore no recommendation would be [...] An addendum will be dictated by the Medical Laboratory Specialist Radiologist regarding the nonvascular findings. Signed: Juwan Raimrez MDReport Verified Date/Time: 11/26/2017 16:25:25 Reading Location: [place] [address], CTA, [id number] 11:56:00Addendum BeginsREPORT STATUS:A Addendum: The images were reviewed with Dr. Reinier staples. There is a missing dictation, specifically, despite the aortic bypass surgery the capitan grande left common iliac artery is still patent [...] MDReport Verified Date/Time: 11/27/2017 11:56:33 Reading Location: [place] [address] Cardiology MRIAddendum EndsAddendum BeginsREPORT STATUS:A ADDENDUM: Study [...] MDReport Verified Date/Time: 11/26/2017 18:03:42 Reading Location: [facility] P048 Angio Body Reading RoomAddendum [...] takeoff of the left renal artery with dvze-dw-umsxv ate stenosis identified. Arch vessel branching pattern [...] 8.2 mm, respectively with mild tortuosity and wder-tn-fvwqaqqd calcific atherosclerosis present. Right iliac limb is [...] dictated, however, the ordering physician is the COMMUNICATIONS ASSOCIATE GRANTS MANAGER of the [facility] and therefore no recommendation would be [...] An addendum will be dictated by the Medical Laboratory Specialist Radiologist regarding the nonvascular findings. Signed: Juwan Ramirez MDReport Verified Date/Time: 11/26/2017 16:25:25 Reading Location: [place] [address] Cardiology MRI B-TYPE NATRIURETIC FACTOR (BNP)2017-11-26 18:03:00 Test Item Value Reference Range Interpretation Comments B-TYPE NATRIURETIC PEPTIDE (BEAKER) 142 pg/mL 0-100 H (test code = 700) COMPREHENSIVE METABOLIC [id number] 17:56:00 Test Item Value Reference Range Interpretation [...] NOT APPLICABLE FOR DIALYSIS PATIEN TS. PROTHROMBIN [id number] 17:33:00 Test Item Value Reference Range Interpretation [...] 0-1 PERCENT (BEAKER) (test code = 2801) [id number] 12:34:00 Test Item Value Reference Range Interpretation Comments POC-CREATININE 1.1 mg/dL 0.6-1.[address] [facility] [address] ([facility]) (test [place] code = 1859) [address] POC-EGFR ([facility]) 65 mL/min/1.73M2 (test code = 1860) [id number] 06:22:001.08[facility] PeypcnzSBYKELLBEU1161-02-10 06:22:00 Test Item Value Reference Range Interpretation Comments PT (test code = PT) 14.2 s 12.0-14.7 [facility]MFJHCPBPBF9867-92-20 16:33:001.09[facility]ann[facility]OLOG[facility] 2016-05-28 16:33:00 Test Item Value Reference Range Interpretation Comments PTT (test code = PTT) 27.7 s 22.9-35.8 [facility] CenterApnhhvyMDDEJTZMQK1327-98-35 16:33:00 Test Item Value Reference Range Interpretation Comments PT (test code = PT) 14.3 s 12.0-14.7 [facility] ImbkuyoSDXWJLPPFW7807-12-33 16:33:78992Siworxgp [facility]annHEMATOLOGY 2016-05-28 16:33:008.4[facility] AiwsujwMURYXEKGSU3696-99-86 16:33:0033.3[facility] ChjvkmnARMJWDRHCX4172-82-98 16:33:0011.6[facility] HdsxpxbLHRGGXQBFA0785-19-11 16:33:00 Test Item Value Reference Range Interpretation Comments MCH (test code = MCH) 29.6 pg 27.0-31.0 [facility] QfwutxsMJYBRSQCLJ8129-73-59 16:33:0015.0[facility]annHEMATOLOGY 2016-05-28 16:33:0088.9[facility] EhfzgjpJDKDJVHHUF3781-56-96 16:33:0035.0[facility] BcvhugrDLARNQQUTL4364-48-49 16:33:003.94[facility] HwnzefnHBHFPCVIXC2631-56-34 16:33:0011.4[facility] XzdhfsyKGHYJXJZNY0687-86-73 16:33:001.3[facility] RIXHESONPB9340-85-49 16:33:008.9[facility] BmfsjbmEMPZWLUIXD2024-45-52 16:33:001.2 [facility] ShgcqwxYEVASTXWWD3092-26-35 16:33:000.1[facility]annHEMATOLOGY 2016-05-28 16:33:000.1[facility] PbwhjjhDGJCHCLPFX3774-91-07 16:33:000.5[facility] BgbqxpeEFWBYVEBVX0965-14-72 16:33:0011.5[facility] GjcmmziFKQVQSZNBP7731-45-53 16:33:0077.6[facility] VyjvszcSCUIEILRSM2253-41-28 16:33:0010.3[facility] CHEM XJLYR2045-18-59 09:17:0089[facility] HermannCHEM TWCHN3707-35-94 09:17:57591 [facility]annCHEM AXLUA1743-01-22 09:17:000.80[facility] HermannCHEM PANEL 2016-05-27 09:17:009[facility] HermannCHEM UVKGR6103-36-59 09:17:25754Deglfogc HermannCHEM XEAAI5486-13-01 09:17:003.9[facility] HermannCHEM VOPGM5675-59-77 09:17:0022[facility]annCHEM XEAKN3416-78-41 09:17:18851Mqssjoqi HermannCHEM ATPNT5345-52-59 09:17:008.0[facility] HermannCHEM ITCCW8061-35-41 09:17:0018.9 [facility]annCHEM XBDWM8559-64-61 09:17:002.3[facility] HermannCHEM PANEL 2016-05-27 09:17:001.7[facility] FodqgjeQSAGRNGDIV7014-81-16 09:17:007.2[facility] MgtqtryMBJOYMFJXO6042-77-36 09:17:007.5[facility] IzvhchlDDANGTRLBN5757-07-05 09:17:0085.1[facility] PesjnjhNAGPYRYVDQ0020-59-44 09:17:009.0[facility] SBLELWTZWJ6247-38-51 09:17:000.2[facility] QsljagoHQUECNVNGI8338-49-72 09:17:000.8 [facility] DmwewzkSSIMZBDZUP1495-74-40 09:17:000.8[facility]annHEMATOLOGY 2016-05-27 09:17:0088.5[facility] NojzfnjYWTACYEWBC3566-81-94 09:17:0031.9[facility] EqzjdaqLMAXHYCMPC2451-88-93 09:17:0011.0[facility] GhyaqumEVLYGARWOG0180-28-53 09:17:003.61[facility] YhfcdfxMZDUBCXCSE9301-54-73 09:17:00 Test Item Value Reference Range Interpretation Comments MCH (test code = MCH) 30.6 pg 27.0-31.0 [facility] WzxocmzEOKXNANMHX9604-82-81 09:17:0010.6[facility]annHEMATOLOGY 2016-05-27 09:17:07895Vwwjaeuh BtdzsnkKTMOQYRCGL8228-40-34 09:17:0014.7[facility] DmredjnUETJMWRGTB8549-70-80 09:17:0034.6[facility] PfmrxzzHLAUXHNSET5282-67-10 09:17:009.3[facility] HermannPARATHYROID SBRZCUQ5232-58-35 09:17:000.99[facility] HermannPARATHYROID VOVKFJT8535-14-15 09:17:001.02[facility] HermannCARDIAC ENZYMES 2016-05-26 05:43:00<0.02[facility] HermannCARDIAC HGIJBOK1434-51-29 05:43:0050 [facility]annCHEM PTRQM4517-65-01 05:43:002.1[facility] HermannCHEM PANEL 2016-05-26 05:43:0088[facility] HermannCHEM EKLTD0779-10-91 05:43:0023[facility] HermannCHEM VPBKI2274-08-32 05:43:26798Kwtlsfxp HermannCHEM XKLZS7110-18-56 05:43:007.8[facility] HermannCHEM YXDOQ3963-82-59 05:43:0016.2[facility] HermannCHEM HBIQU4785-70-61 05:43:76925Dhimybqp HermannCHEM RVVHW4797-18-80 05:43:0078 [facility]annCHEM EGNRN2228-01-37 05:43:009[facility] HermannCHEM PANEL 2016-05-26 05:43:004.2[facility] HermannCHEM XXQJV8899-80-03 05:43:000.81[facility] HermannCHEM PEIIC0498-62-35 05:43:003.3[facility] JgkgjirYWQINRCQRV3497-76-67 05:43:0034.6[facility] HzmnjxvVMCZEMKUCL2603-45-82 05:43:0014.1[facility] HVZOWTNVSF2663-39-46 05:43:003.69[facility] CuasmavOKDQIJQNEC0267-16-33 05:43:00 10.1[facility] PsllsupSJBUKVCRMU0019-68-64 05:43:009.0[facility]annHEMATOLOGY 2016-05-26 05:43:69383Zzzybgex XdbhtqsGLFSDWTCLR0024-76-27 05:43:00 Test Item Value Reference Range Interpretation Comments MCH (test code = MCH) 30.3 pg 27.0-31.0 [facility] TkhenfeJDYJOZGYDZ3827-49-72 05:43:0087.7[facility] HermannHEMATOLOGY 2016-05-26 05:43:0032.4[facility] CzivnrhTWIHCXCWPX3688-47-84 05:43:0011.2[facility] KqzwunnYCTSGQHAPH3360-66-18 05:43:000.2[facility] PfurklwGIWGOWTVOM3376-96-87 05:43:00See Note (05/26/16 12:43 AM)[facility] FhijwkdKZNKNBIVOB0292-18-73 05:43:0015.5[facility] EfxssaaJXZSRKJWLW4944-92-62 05:43:00 Test Item Value Reference Range Interpretation Comments Max Amp (test code = Max Amp) 75.6 mm 50.0-70.0 [facility] GwggruyVPBTIYPSZN4455-38-88 05:43:005.3[facility] HermannHEMATOLOGY 2016-05-26 05:43:00 Test Item Value Reference Range Interpretation Comments K-time (test code = K-time) 0.8 min 1.0-3.0 [facility] McqhqneMAEFSRDJSO2002-47-08 05:43:00 Test Item Value Reference Range Interpretation Comments Angle (test code = Angle) 78.6 degrees 53.0-72.0 [facility] AsdbkaxVYDGEMUMXU0390-23-10 05:43:00 Test Item Value Reference Range Interpretation Comments R-time (test code = R-time) 2.8 min 5.0-10.0 [facility] TzizvveRZAPVOESKU9009-30-59 05:43:0010.1[facility] HermannHEMATOLOGY 2016-05-26 05:43:0013.2[facility] JqgbzmaEDMLUHBEWQ4412-68-75 05:43:007.7[facility] XixemncHAPQDLJZLE7264-72-55 05:43:000.4[facility] HegdybrCBJRHICBWS9882-94-96 05:43:000.1[facility] BkyqvewQZNZBKPBLR0922-92-22 05:43:001.0[facility] MOZUCJQSJR5320-81-73 05:43:001.3[facility] TxcvziwXHXUHUVIFB9642-78-25 05:43:00 76.2[facility] HermannPARATHYROID FMKBHMV6819-95-59 05:43:001.11[facility] PARATHYROID RNGDQOY0038-68-71 05:43:001.08[facility] HermannCHEM QBXBH7524-70-17 21:31:0080[facility] HermannCHEM KOZYG9195-00-20 21:31:0015.3[facility] HermannCHEM SQRJU7462-84-87 21:31:0025[facility] HermannCHEM IFIHN1721-93-11 21:31:007.9 [facility] HermannCHEM DLTVV6735-84-14 21:31:83248Strtefac HermannCHEM PANEL 2016-05-25 21:31:004.3[facility] HermannCHEM PTBJA5947-43-61 21:31:30569Wmyeblpf HermannCHEM RECKE2597-15-01 21:31:000.94[facility] HermannCHEM DFCUK7058-78-15 21:31:80903Xydzsuwz HermannCHEM UPKBF1607-41-04 21:31:008[facility] TGFTYVZMXA7935-43-41 21:31:001.19[facility] TlgxcsaRAVSJVUBMM8371-91-51 21:31:00 Test Item Value Reference Range Interpretation Comments PT (test code = PT) 15.4 s 12.0-14.7 [facility] VheqinfWZGWPFYYEC6743-89-76 21:31:00 Test Item Value Reference Range Interpretation Comments PTT (test code = PTT) 34.1 s 22.9-35.8 [facility] HermannPARATHYROID DPXZVHC1149-07-57 06:49:001.07[facility] PARATHYROID LIQPEIO0572-59-15 06:49:001.04[facility] HermannCARDIAC ENZYMES 2016-05-25 06:47:00<0.02[facility] HermannCARDIAC MGJWUPW1882-28-83 06:47:0057 [facility] HermannCHEM MBEYV0579-12-34 06:47:001.1[facility] HermannCHEM PANEL 2016-05-25 06:47:000.4[facility] HermannCHEM CSNHM5026-96-02 06:47:000.6[facility] HermannCHEM VNTXW5811-99-66 06:47:000.2[facility] HermannCHEM GWCJG5256-20-23 06:47:0013[facility] HermannCHEM EYYTL4488-30-05 06:47:95684Geptajkr HermannCHEM CDBKB3578-81-73 06:47:002.7[facility] HermannCHEM KXKSI9278-98-41 06:47:005.7 [facility] XOSTD4161-80-09 06:47:003.0[facility] HermannCHEM PANEL 2016-05-25 06:47:0014[facility] HermannCHEM MJABE1705-87-13 06:47:003.2[facility] HermannCHEM TOYEZ1895-71-44 06:47:001.7[facility] 2016-05-25 02:09:00Positive 1(05/24/16 9:09 PM)[facility] 2016-05-25 02:09:00 Test Item Value Reference Range Interpretation Comments Max Amplitude Rapid (test code = Max 68 mm 52-71 Amplitude Rapid) [facility] CenterFlmixpvHZUUODPAEH0675-43-87 02:09:0010.4[facility] 2016-05-25 02:09:000.4[facility]ri[facility] CenterSroclheSFTUCZVUTM8411-92-66 02:09:00 Test Item Value Reference Range Interpretation Comments ACT (TEG) Rapid (test code = ACT (TEG) 121 s 86-118 Rapid) [facility] CenterXxxgysyJWPNYXYSXF8477-63-08 02:09:00 Test Item Value Reference Range Interpretation Comments Split Point Rapid (test code = Split 0.7 min Point Rapid) [facility] CenterGvhhlyxFTDQBZEWMV8712-25-43 02:09:00 Test Item Value Reference Range Interpretation Comments R-time Rapid (test code = R-time 0.8 min 0.4-0.7 Rapid) [facility] CenterVhiagdvHXJROWSYRG0632-18-89 02:09:00 Test Item Value Reference Range Interpretation Comments K-time Rapid (test code = K-time 0.8 min 0.6-2.3 Rapid) [facility] CenterZrfjeznVWJLIVRXKO7588-41-52 02:09:00 Test Item Value Reference Range Interpretation Comments Angle Rapid (test code = Angle 80 degrees 64-80 Rapid) [facility] CenterEmhnlhuHXJRAQHYEC3498-19-05 02:09:001.7[facility]annHEMATOLOGY 2016-05-25 02:09:000.1[facility] JtuyyoiALCPYLRJMY2298-06-08 02:09:000.1[facility] BaoygkiQILJAYYPUD5393-33-38 02:09:00 Test Item Value Reference Range Interpretation Comments PTT (test code = PTT) 32.0 s 22.9-35.8 [facility]
--- NOTE | 2021-02-18 16:58 | RAD REPORT ---
EXAM DESCRIPTION: CT - Head Brain Wo Cont - 02/18/2021 4:52 pm CLINICAL HISTORY: MENTAL STATUS CHANGE COMPARISON: Head Brain Wo Cont dated 10/02/2018 TECHNIQUE: Axial 5 mm thick images of the head were obtained without IV contrast. All CT scans are performed using dose optimization technique as appropriate and may include automated exposure control or mA/KV adjustment according to patient size. FINDINGS: No intracranial hemorrhage, mass, edema or shift of mid-line structures. No acute cortical based infarction. No cortical edema or sulcal effacement. Mild to moderate atrophy changes are prese nt with ventricles in proportion. Chronic ischemic changes are present in the cerebral white matter. 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 Arterial and physiologic calcifications are pr esent. No abnormal extra-axial fluid collections. Mastoid air cells and visualized portions of the paranasal sinuses are clear. No acute bony findings. Two zane holes are present in the lateral right skull similar to comparison. IMPRESSION: Negative non-contrast CT head examination for acute finding. No significant change from September 2018.
[2021-02-18 17:08] LABS: Absolute Lymphocytes (CBC) 0.8 K/uL (0.7-4.9); Basophils % 0.5 % (0-1.3); Hematocrit 35.2 % (39.6-49.0); Lymphocytes % 13.4 % (15.3-44.8); MPV 8.3 fL (7.6-11.3); RBC Red Blood Cell Count 4.01 M/uL (4.33-5.43)
--- NOTE | 2021-02-18 17:28 | RAD REPORT ---
EXAM DESCRIPTION: RAD - Chest Single View - 02/18/2021 5:02 pm CLINICAL HISTORY: DYSPNEA COMPARISON: February 09 TECHNIQUE: AP portable chest image was obtained 02/18/2021 5:02 pm . FINDINGS: Lungs are clear. Interstitial pattern matches comparison. Numerous mediastinal and hilar g ranulomatous type calcifications are seen. Lung markings are accentuated slightly due to low lung vol umes. Heart and vasculature are normal. No measurable pleural effusion and no pneumothorax. No acute bony a bnormality seen. No acute aortic findings suspected. IMPRESSION: No acute cardiopulmonary process. No significant change from comparison study.
[2021-02-18 17:49] LABS: Protime INR 1.39
[2021-02-18 19:14] LABS: ALT/SGPT 19 U/L (12-78); AST/SGOT 15 U/L (15-37); Albumin 3.1 g/dL (3.4-5.0); Alkaline Phosphatase 181 U/L (45-117); BUN Blood Urea Nitrogen 9 mg/dL (7-18); Bicarbonate 30 mmol/L (21-32); Bilirubin Direct 0.1 mg/dL (0-0.2); Bilirubin Total 0.3 mg/dL (0.2-1.0); Glucose Level 95 mg/dL (74-106); Magnesium 2.2 mg/dL (1.8-2.4); NT PRO-BNP 330 pg/mL (<450); Potassium 4.4 mmol/L (3.5-5.1); Protein, Total 6.3 g/dL (6.4-8.2); Sodium Level 137 mmol/L (136-145); Troponin (Emerg Dept Use Only) < 0.02 ng/mL (0.0-0.045)
[2021-02-18 19:54] LABS: Urine Blood Negative (Negative); Urine Glucose Negative (Negative); Urine Protein Negative (Negative); Urine Specific Gravity 1.015 (1.005-1.030); Urine pH 8.5 (5.0-7.0)
[2021-02-18 20:20] LABS: Barbiturates POSITIVE (NEGATIVE); Benzodiazepines POSITIVE (NEGATIVE); Cocaine NEGATIVE (NEGATIVE); METHAMPHETAM NEGATIVE (NEGATIVE); Methadone NEGATIVE (NEGATIVE); Opiates POSITIVE (NEGATIVE); Phencyclidine NEGATIVE (NEGATIVE); THC Cannibis NEGATIVE (NEGATIVE)
[2021-02-18 20:23] LABS: Urine Bacteria <20 /HPF (NONE SEEN); Urine RBC NONE SEEN /HPF (NONE SEEN)
--- NOTE | 2021-02-18 21:21 | ER ---
Nurse's Notes [facility] Name: Pineda Mckeon Age: 75 yrs Sex: Male : 1945 Arrival Date: 02/18/2021 Time: 16:11 Bed 2 Private MD: Diagnosis: Altered mental status, unspecified Presentation: 02/18 16:12 Chief complaint: EMS states: Family called EMS because pt was found w/ AMS, reports ph that last seen normal was, " sometime this morning when having coffee", pt A\\T\\O x 1 upon arrival to ED, drowsy, leaning to R side, responds to verbal stimuli, EMS reports stable VS and BGL WNL, hx of aneurysm. Coronavirus screen: Client denies travel out of the [place] in the last 14 days. Ebola Screen: No symptoms or risks identified at this time. Initial Sepsis Screen: Does the patient meet any 2 criteria? Altered Mental Status. No. Patient's initial sepsis screen is negative. Does the patient have a suspected source of infection? No. Patient's initial sepsis screen is negative. Risk Assessment: Do you want to hurt yourself or someone else? Patient reports no desire to harm self or others. Onset of symptoms was February 18, 2021. 16:12 Method Of Arrival: EMS: [facility] ph 16:12 Acuity: NORY 2 ph Historical: - Allergies: 02/19 07:54 No Known Allergies; tw2 - Home Meds: 07:54 Albuterol Inhl [Active]; Amitriptyline Oral [Active]; amlodipine oral [Active]; Aspirin tw2 Oral [Active]; atorvastatin Oral [Active]; Breo Ellipta inhalation [Active]; carvedilol Oral [Active]; Clonidine Oral [Active]; Dicyclomine Oral [Active]; enoxaparin subcutaneous [Active]; gabapentin oral and lidocaine-menthol topical miscellaneous [Active]; Hydrocodone-Acetaminophen Oral [Active]; Prilosec Oral [Active]; Ondansetron Oral [Active]; Primidone Oral [Active]; tamsulosin Oral [Active]; tizanidine Oral [Active]; topiramate Oral [Active]; Vitamin D3 Oral [Active]; Warfarin Oral [Active]; - PMHx: 02/18 16:16 AAA; blood clot in right groin; Bypass Bilateral Legs; clotting disorder; factor 5; ph COPD; CVA; Degenerative disc disease; descending aorta aneurism; Hypertension; Right Arm; TIA; - PSHx: 16:16 brain; ph - Immunization history:: Adult Immunizations. - Social history:: Smoking status: Patient denies any tobacco usage or history of. Screenin:18 Abuse screen: Denies threats or abuse. Denies injuries from another. Nutritional ph screening: No deficits noted. Tuberculosis screening: No symptoms or risk factors identified. Fall Risk None identified. Assessment: 16:20 Reassessment: Spoke to home health nurse Lani on phone who states that pt has ph recently been transferred for AAA. 16:42 General: Appears in no apparent distress. comfortable, slender, well groomed, Behavior ph is cooperative, drowsy, listless. Pain: Unable to use pain scale. Patient is disoriented. Neuro: Level of Consciousness is obeys commands, confused, lethargic, listless, Oriented to person, Cash Processing Specialist are equal bilaterally Moves all extremities. Speech is slurred. Cardiovascular: Capillary refill < 3 seconds in bilateral fingers Patient's skin is warm and dry. Respiratory: Airway is patent Respiratory effort is even, Respiratory pattern is regular, intermittent gurgling noted, Spo2 remains stable. 16:45 GI: No signs and/or symptoms were reported involving the gastrointestinal system. Derm: ph Skin is fragile, is thin, Skin is pink, warm \\T\\ dry. Musculoskeletal: Circulation, motion, and sensation intact. Range of motion: intact in all extremities. 18:00 Reassessment: Patient appears in no apparent distress at this time. Patient and/or ph family updated on plan of care and expected duration. Pain level reassessed. Pt remains asleep w/ stable vitals, awaiting lab results. 20:25 Reassessment: Patient and/or family updated on plan of care and expected duration. Pain ea level reassessed. Patient is alert, oriented x 3, equal unlabored respirations, skin warm/dry/pink. 20:30 Reassessment: Daughter Andra Wheeler [phone]. ea 20:33 Reassessment: Patient and/or family updated on plan of care and expected duration. Pain ak2 level reassessed. 23:11 Reassessment: Patient and/or family updated on plan of care and expected duration. Pain ak2 level reassessed. 02/19 02:29 Reassessment: Patient and/or family updated on plan of care and expected duration. Pain ak2 level reassessed. Vital Signs: 02/18 16:12 BP 139 / 52; Pulse 58; Resp 12; Temp 98.2; Pulse Ox 100% on R/A; ph 17:30 BP 145 / 77; Pulse 60; Resp 18; Pulse Ox 98% ; sv 18:30 BP 164 / 90; Pulse 61; Resp 14; Pulse Ox 97% ; sv 20:25 BP 163 / 79; Pulse 62; Resp 16; Pulse Ox 99% ; ea 23:11 BP 164 / 81; Pulse 64; Resp 16; Pulse Ox 98% ; ak2 02/19 02:29 BP 154 / 76; Pulse 68; Resp 16; Pulse Ox 97% ; ak2 ED Course: 02/18 16:11 Patient arrived in ED. ph 16:12 Delia Causey, CHRYSTAL is Primary Nurse. ph 16:15 Yordan Muñoz PA is PHCP. jr8 16:15 Atif Torres MD is Attending Physician. jr8 16:16 Triage completed. ph 16:17 Arm band placed on Patient placed in an exam room, on a stretcher, on cardiac catheterization technologist, ph on pulse oximetry. 16:19 EKG done, by ED staff, reviewed by Atif Torres MD. mh5 16:20 Patient has correct armband on for positive identification. Placed in gown. Bed in low mh5 position. Call light in reach. Side rails up X2. Warm blanket given. threat monitoring analyst on. Pulse ox on. NIBP on. 16:20 Patient has correct armband on for positive identification. Bed in low position. Call ph light in reach. Side rails up X 1. threat monitoring analyst on. Pulse ox on. NIBP on. Door closed. Noise minimized. Warm blanket given. 16:42 Maintain EMS IV. Dressing intact. Good blood return noted. Site clean \\T\\ dry. Gauge \\T\\ ph site: 20 RAC. IV is intact, with fluids infusing freely, with good blood return, Flushed right antecubital with 5 ml normal saline. 16:52 CT Head Brain wo Cont In Process Unspecified. EDMS 17:02 XRAY Chest (1 view) In Process Unspecified. EDMS 19:01 Primary Nurse role handed off by Delia Causey RN mw2 19:08 PHCP role handed off by Yordan Muñoz PA pm1 19:08 Liam Hernandez NP is PHCP. pm1 20:33 Esvin Harvey is Primary Nurse. ak2 21:20 Hu Cordon PA is Hospitalizing Provider. pm1 02/19 07:35 Adrianne Alonso RN is Primary Nurse. tw2 Administered Medications: 07:09 CANCELLED (hold per Dr. Phoenix): vancoMYCIN 1 grams IVPB once over 2 hrs rn Outcome: 02/18 21:20 Decision to Hospitalize by Provider. pm1 02/19 12:38 Patient left the ED. ss Signatures: Dispatcher [employer] EDMS Sophia David, RN CHRYSTAL Arabella Bryant RN RN Yordan Muñoz PA PA jr8 Delia Causey, CHRYSTAL RN Liam Hernandez NP MAILER pm1 Adrianne Alonso, CHRYSTAL RN [facility] Kim Vera [facility] Marlene Decker RN RN ea [place], MyKena mw2 Esvin Harvey ak2 Atif Torres MD rn
--- NOTE | 2021-02-18 21:21 | EDPHYS ---
Physician Documentation [facility] Name: Pineda Mckeon Age: 75 yrs Sex: Male : 1945 Arrival Date: 02/18/2021 Time: 16:11 Bed 2 Private MD: ED Physician Atif Torres HPI: 02/18 18:09 This 75 yrs old Male presents to ER via EMS with complaints of Altered Mental jr8 Status. 18:09 The patient presents with confusion, decreased mental status, decreased responsiveness. jr8 Onset: The symptoms/episode began/occurred acutely, today. Possible causes: unknown. Associated signs and symptoms: Pertinent positives: confusion. Current symptoms: In the emergency department the patient's symptoms are unchanged from the initial presentation. Patient's baseline: Neuro: alert and fully oriented, Motor: no deficits, Speech: normal. It is unknown whether or not the patient has had similar symptoms in the past. It is unknown whether or not the patient has recently seen a physician. Family called EMS after finding patient altered. Home health nurse stated that patient had been fine this AM and had coffee with family member. When checking on him this afternoon was altered . Historical: - Allergies: 02/19 07:54 No Known Allergies; tw2 - Home Meds: 07:54 Albuterol Inhl [Active]; Amitriptyline Oral [Active]; amlodipine oral [Active]; Aspirin tw2 Oral [Active]; atorvastatin Oral [Active]; Breo Ellipta inhalation [Active]; carvedilol Oral [Active]; Clonidine Oral [Active]; Dicyclomine Oral [Active]; enoxaparin subcutaneous [Active]; gabapentin oral and lidocaine-menthol topical miscellaneous [Active]; Hydrocodone-Acetaminophen Oral [Active]; Prilosec Oral [Active]; Ondansetron Oral [Active]; Primidone Oral [Active]; tamsulosin Oral [Active]; tizanidine Oral [Active]; topiramate Oral [Active]; Vitamin D3 Oral [Active]; Warfarin Oral [Active]; - PMHx: 02/18 16:16 AAA; blood clot in right groin; Bypass Bilateral Legs; clotting disorder; factor 5; ph COPD; CVA; Degenerative disc disease; descending aorta aneurism; Hypertension; Right Arm; TIA; - PSHx: 16:16 brain; ph - Immunization history:: Adult Immunizations. - Social history:: Smoking status: Patient denies any tobacco usage or history of. ROS: 18:09 Unable to obtain ROS due to altered mental status. jr8 Exam: 18:09 Eyes: Pupils equal round and reactive to light, extra-ocular motions intact. Lids and jr8 lashes normal. Conjunctiva and sclera are non-icteric and not injected. Cornea within normal limits. Periorbital areas with no swelling, redness, or edema. ENT: Nares patent. No nasal discharge, no septal abnormalities noted. Tympanic membranes are normal and external auditory canals are clear. Oropharynx with no redness, swelling, or masses, exudates, or evidence of obstruction, uvula midline. Mucous membranes moist. Cardiovascular: Regular rate and rhythm with a normal S1 and S2. No gallops, murmurs, or rubs. Normal PMI, no JVD. No pulse deficits. Respiratory: Lungs have equal breath sounds bilaterally, clear to auscultation and percussion. No rales, rhonchi or wheezes noted. No increased work of breathing, no retractions or nasal flaring. Abdomen/GI: Soft, non-tender, with normal bowel sounds. No distension or tympany. No guarding or rebound. No evidence of tenderness throughout. Skin: Warm, dry with normal turgor. Normal color with no rashes, no lesions, and no evidence of cellulitis. MS/ Extremity: Pulses equal, no cyanosis. Neurovascular intact. Full, normal range of motion. 18:09 Neuro: Orientation: Not oriented to person, place, time, Mentation: able to follow commands, slow to respond, Memory: unable to test, Cranial nerves: unable to test, Cerebellar function: unable to test, Motor: moves all fours, Sensation: no obvious gross deficits, seizure activity, is not displayed by the patient, Abnormal movements: there are no abnormal movements. Vital Signs: 16:12 BP 139 / 52; Pulse 58; Resp 12; Temp 98.2; Pulse Ox 100% on R/A; ph 17:30 BP 145 / 77; Pulse 60; Resp 18; Pulse Ox 98% ; sv 18:30 BP 164 / 90; Pulse 61; Resp 14; Pulse Ox 97% ; sv 20:25 BP 163 / 79; Pulse 62; Resp 16; Pulse Ox 99% ; ea 23:11 BP 164 / 81; Pulse 64; Resp 16; Pulse Ox 98% ; ak2 02/19 02:29 BP 154 / 76; Pulse 68; Resp 16; Pulse Ox 97% ; ak2 MDM: 02/18 16:15 Patient medically screened. 20:22 Counseling: I had a detailed discussion with the patient and/or guardian regarding: the pm1 historical points, exam findings, and any diagnostic results supporting the discharge/admit diagnosis, lab results, radiology results, the need for further work-up and treatment in the hospital. 21:18 Data reviewed: vital signs. Data interpreted: Pulse oximetry: on room air is 99 %. pm1 Interpretation: normal. 21:19 Physician consultation: Hu MICHAEL regarding admission, patient's condition, and pm1 will see patient in ED. 02/19 07:09 ED course: Notified of + blood culture by lab, vancomycin ordered, spoke with Dr. ruddy Shaw, plans to verify with lab prior to initiation of abx, believes is contaminate.. 02/18 16:26 Order name: Basic Metabolic Panel; Complete Time: 19:16 02/18 16:26 Order name: CBC with Diff; Complete Time: 17:22 [facility] 02/18 16:26 Order name: LFT's; Complete Time: 19:16 02/18 16:26 Order name: Magnesium; Complete Time: 19:16 02/18 16:26 Order name: NT PRO-BNP; Complete Time: 19:16 02/18 16:26 Order name: PT-INR; Complete Time: 19:07 [facility] 02/18 16:26 Order name: Troponin (emerg Dept Use Only); Complete Time: 19:16 02/18 16:26 Order name: Blood Culture Adult (2) 02/18 16:26 Order name: Procal; Complete Time: 19:38 [facility] 02/18 16:52 Order name: Glucose, Ancillary Testing; Complete Time: 17:00 EDMS 02/18 18:11 Order name: UDS; Complete Time: 20:22 02/18 18:12 Order name: Urine Microscopic Only 02/18 18:13 Order name: Urine Microscopic Only; Complete Time: 20:24 EDMS 02/18 19:54 Order name: Urine Dipstick-Ancillary; Complete Time: 19:59 [facility] 02/18 16:26 Order name: XRAY Chest (1 view); Complete Time: 17:39 [facility] 02/18 16:26 Order name: EKG; Complete Time: 16:26 [facility] 02/18 16:26 Order name: Cardiac monitoring; Complete Time: 16:27 [facility] 02/18 16:26 Order name: EKG - Nurse/Tech [facility] 02/18 16:26 Order name: IV Saline Lock; Complete Time: 16:42 [facility] 02/18 16:26 Order name: Labs collected and sent; Complete Time: 16:42 [facility] 02/18 16:26 Order name: O2 Per Protocol; Complete Time: 16:27 [facility] 02/18 16:26 Order name: O2 Sat Monitoring; Complete Time: 16:27 [facility] 02/18 16:26 Order name: CT Head Brain wo Cont; Complete Time: 17:00 [facility] 02/18 16:26 Order name: Glucose Level; Complete Time: 16:41 [facility] 02/19 05:19 Order name: CBC with Automated Diff; Complete Time: 07:01 [facility] 02/19 05:30 Order name: Comprehensive Metabolic Panel; Complete Time: 07:01 [facility] 02/19 07:01 Order name: Gram Stain--Aerobic Bottle [facility] 02/19 07:44 Order name: Procalcitonin [facility] 02/19 08:17 Order name: Gram Stain--Aerobic Bottle [facility] 02/18 17:08 Order name: Labs - recollect needed: recollect PT, Chemistry and procal tubes/ eb hemolyzed; Complete Time: 19:10 02/18 18:04 Order name: Labs - recollect needed: recollect chemistry and procal/ hemolyzed; eb Complete Time: 19:10 Administered Medications: 07:09 CANCELLED (hold per Dr. Phoenix): vancoMYCIN 1 grams IVPB once over 2 hrs rn Disposition: 13:16 Co-signature as Attending Physician, Atif Torres MD I agree with the assessment and rn plan of care. Attestation: The patient's history, exam findings, diagnostics, and a summary of any interventions or procedures was reviewed in detail with Liam Hernandez NP. Disposition Summary: 02/18/21 21:20 Hospitalization Ordered Hospitalization Status: Observation pm1 Provider: Hu Cordon pm1 Condition: Stable pm1 Problem: new pm1 Symptoms: have improved pm1 Bed/Room Type: Standard pm1 Location: [facility] ER HOLD(02/19/21 12:38) Room Assignment: ERHOLD-(02/19/21 12:38) Diagnosis - Altered mental status, unspecified pm1 Forms: - Medication Reconciliation Form pm1 - SBAR form pm1 Signatures: Dispatcher [employer] EDMS Atif Torres MD MD rn Smirch, Shelby RN RN Yordan Muñoz PA PA jr8 Delia Causey RN RN Antonia Alcantar RN RN Liam Hernandez, ORNAMENTAL BRICK INSTALLER ORNAMENTAL BRICK INSTALLER pm1 Adrianne Alonso RN RN 2 Mikie, Ruthie mt Cindi Still Corrections: (The following items were deleted from the chart) 02/18 21:19 20:22 Physician consultation: Hu MICHAEL regarding admission, patient's condition, pm1 and will see patient in ED, pm1 02/19 00:27 02/18 21:20 Telemetry/MedSurg (observation) pm1 02/19 00:27 02/18 21:20 pm1 02/19 07:09 07:02 vancoMYCIN 1 grams IVPB once over 2 hrs ordered. ruddy rn 11:57 00:27 [facility] ER HOLD [facility] 11:57 00:27 ERHOLD- [facility] 12:01 11:[address] 12:38 11:57 Telemetry/MedSurg (Inpatient) [facility] 12:38 12:01 [facility]
[2021-02-19] MEDS ORDERED: ONDANSETRON 4 MG/2 ML VIAL IV PRN (03:08)
[2021-02-19] MEDS ORDERED: BENZONATATE 100 MG CAP PO PRN (03:08)
[2021-02-19] MEDS ORDERED: HYDRALAZINE HCL 20 MG/ML VIAL IV PRN (03:08)
[2021-02-19] MEDS ORDERED: ALBUTEROL 2.5 MG/3 ML NEB SOL NEB PRN (03:08)
[2021-02-19 03:15] VITALS: BMI 25.8
[2021-02-19 03:17] VITALS: TEMP 98.3
[2021-02-19] MEDS: IPRATROPIUM BROM 0.5MG/2.5ML NEB SCH ×2 (03:33→09:10)
[2021-02-19] MEDS ORDERED: IPRATROPIUM BROM 0.5MG/2.5ML ONE ×2 (03:56→08:35)
--- NOTE | 2021-02-19 04:25 | P.HP ---
Certification for Inpatient Patient admitted to: Observation With expected LOS: <2 Midnights Patient will require the following post-hospital care: None Practitioner: I am a practitioner with admitting privileges, knowledge of patient current condition, hospital course, and medical plan of care. Services: Services provided to patient in accordance with Admission requirements found in Title 42 Section 412.3 of the Code of Federal Regulations Patient History Date of Service: 02/19/21 Reason for admission: AMS History of Present Illness: Mr. Mckeon is a 75 yo M with multiple medical diagnoses who was brought in today by EMS after family called them for patient's increased confusion, AMS, and lethargy. His home health nurse says he was fine this morning, had a cup of coffee with a family member, but became altered in the evening. UDS positive for opioids, barbiturates, and benzodiazepines. Patient's mentation has improved throughout the night, now AOx4. Has cough productive of yellow sputum, but denies SOB. Allergies No Known Allergies Allergy (Verified 10/24/17 00:11) Home Medications: Albuterol Sulfate [Proair Respiclick] 90 mcg IH Q6H PRN 01/24/19 Amlodipine [Norvasc*] 2.5 mg PO DAILY 01/24/19 Fluticasone/Vilanterol [Breo Ellipta 200-25 Mcg INH] 1 puff IH DAILY 01/24/19 Gabapentin 300 mg PO DAILY 01/24/19 Hydrocodone Bit/Acetaminophen [Hydrocodon-Acetaminophn 10-325] 1 tab PO Q6H PRN 01/24/19 Primidone 250 mg PO DAILY 01/24/19 Tizanidine [Zanaflex*] 1 tab PO TID 01/24/19 Topiramate [Topamax] 100 mg PO BID 01/24/19 Warfarin Sodium 8 mg PO DAILY 01/24/19 carvediloL [Coreg*] 6.25 mg PO BID 01/24/19 fentaNYL [Fentanyl] 100 mcg TOP SEECOM 01/24/19 lisinopriL [Lisinopril] 40 mg PO DAILY 01/24/19 predniSONE [Deltasone] 20 mg PO DAILY #5 tablet 01/25/19 Amitriptyline HCl 75 mg PO BEDTIME 10/03/20 Clonidine HCl [Clonidine HCl ER] 0.1 mg PO BID* 02/19/21 - Past Medical/Surgical History Diabetic: No -: CAD -: PAD -: factor 5 clotting disorder -: COPD -: Recent history of subdural hematoma -: Chronic anti coagulation for arterial disease -: Chronic pain syndrome -: Peripheral vascular disease -: History of AAA repair -: Blood clot in the groin -: Degenerative disc disease -: Cholecystectomy -: CABGx3 -: AAA repair -: Hernia repair -: subdural hematoma surgery -: valve replacement Psychosocial/ Personal History: He currently lives with his daughter, has 5 children, he does not work. - Family History Mother -: Heart disease, Hypertension Father -: Heart disease, Other (see notes) Notes: Alzheimer's - Social History Smoking Status: Unknown if ever smoked Alcohol use: No CD- Drugs: Yes Caffeine use: Yes Place of Residence: Home Review of Systems 10-point ROS is otherwise unremarkable Neurological: Confusion Physical Examination - Vital Signs Temperature: 98.3 F Blood Pressure: 161/89 Pulse: 65 Respirations: 16 Pulse Ox (%): 98 - Physical Exam General: Alert, In no apparent distress HEENT: Atraumatic, PERRLA, Mucous membr. moist/pink, EOMI, Sclerae nonicteric Neck: Supple, 2+ carotid pulse no bruit, No LAD, Without JVD or thyroid abnormality Respiratory: Diminished Cardiovascular: Regular rate/rhythm, Normal S1 S2 Gastrointestinal: Normal bowel sounds, No tenderness Musculoskeletal: No tenderness Integumentary: No rashes Neurological: Normal speech, Normal strength at 5/5 x4 extr, Normal tone, Normal affect Lymphatics: No axilla or inguinal lymphadenopathy - Studies Laboratory Data (last 24 hrs) 02/18/21 18:37: Sodium 137, Potassium 4.4, BUN 9, Creatinine 1.10, Glucose 95, Magnesium 2.2, Total Bilirubin 0.3, AST 15, ALT 19, Alkaline Phosphatase 181 H 02/18/21 17:30: PT 16.0 H, INR 1.39 02/18/21 16:30: WBC 5.90 D, Hgb 11.6 L, Hct 35.2 L, Plt Count 172 D Assessment and Plan - Problems (Diagnosis) (1) Moderate benzodiazepine use disorder Current Visit: No Status: Chronic (2) AAA (abdominal aortic aneurysm) Onset Date: 09/15/17 Current Visit: No Status: Chronic Qualifiers: (3) CAD (coronary artery disease) of artery bypass graft Onset Date: 12/31/17 Current Visit: No Status: Chronic Qualifiers: (4) COPD (chronic obstructive pulmonary disease) Onset Date: 07/14/16 Current Visit: No Status: Chronic Qualifiers: (5) Chronic anticoagulation Onset Date: 07/14/16 Current Visit: No Status: Chronic (6) Chronic pain disorder Onset Date: 07/14/16 Current Visit: No Status: Chronic (7) Chronic renal disease Onset Date: 07/14/16 Current Visit: No Status: Chronic Qualifiers: Chronic kidney disease stage: stage 3 (moderate) (8) Factor V Leiden Onset Date: 12/31/17 Current Visit: No Status: Chronic (9) Hypertension Onset Date: 07/14/16 Current Visit: No Status: Chronic Qualifiers: Hypertension type: essential hypertension Qualified Code(s): I10 - Essential (primary) hypertension (10) Peripheral vascular disease Onset Date: 07/14/16 Current Visit: No Status: Chronic (11) Severe aortic stenosis Onset Date: 12/31/17 Current Visit: No Status: Chronic (12) Persistent cough Current Visit: No Status: Acute (13) Delirium Current Visit: Yes Status: Acute - Plan delirium likely due to polypharmacy, will continue to monitor, consider MRI brain and neurology consult if symptoms not resolved in AM reconcile and continue home medications, will hold chronic pain medications overnight hydralazine PRN for PB spikes breathing treatments, tessalon perles, and O2 as needed for cough and COPD Discharge Plan: Home Plan to discharge in: 24 Hours - Advance Directives Does patient have a Living Will: No Does patient have a Durable POA for Healthcare: No - Code Status/Comfort Care Code Status Assessed: Yes (full code) Critical Care: No Time Spent Managing Pts Care (In Minutes): 70
[2021-02-19 05:12] LABS: Absolute Lymphocytes (CBC) 1.2 K/uL (0.7-4.9); Hematocrit 38.9 % (39.6-49.0); Lymphocytes % 15.5 % (15.3-44.8); MPV 7.7 fL (7.6-11.3); RBC Red Blood Cell Count 4.45 M/uL (4.33-5.43)
[2021-02-19 05:30] LABS: Albumin 3.4 g/dL (3.4-5.0); Bilirubin Total 0.5 mg/dL (0.2-1.0); Potassium 4.2 mmol/L (3.5-5.1); Protein, Total 6.9 g/dL (6.4-8.2)
[2021-02-19] MEDS ORDERED: HYDRALAZINE HCL 20 MG/ML VIAL ONE (05:55)
--- NOTE | 2021-02-19 06:22 | P.DS ---
Admission Date: 02/19/21 Discharge Date: 02/19/21 Primary Care Provider: Dr. De La Cruz Disposition: ROUTINE DISCHARGE Discharge Condition: GOOD Reason for Admission: AMS Consultations: none Procedures: CT Head: COMPARISON: Head Brain Wo Cont dated 10/02/2018 TECHNIQUE: Axial 5 mm thick images of the head were obtained without IV contrast. All CT scans are performed using dose optimization technique as appropriate and may include automated exposure control or mA/KV adjustment according to patient size. FINDINGS: No intracranial hemorrhage, mass, edema or shift of mid-line structures. No acute cortical based infarction. No cortical edema or sulcal effacement. Mild to moderate atrophy changes are present with ventricles in proportion. Chronic ischemic changes are present in the cerebral white matter. 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 Arterial and physiologic calcifications are present. No abnormal extra-axial fluid collections. Mastoid air cells and visualized portions of the paranasal sinuses are clear. No acute bony findings. Two zane holes are present in the lateral right skull similar to comparison. IMPRESSION: Negative non-contrast CT head examination for acute finding. No significant change from September 2018. CXR: COMPARISON: February 09 TECHNIQUE: AP portable chest image was obtained 02/18/2021 5:02 pm . FINDINGS: Lungs are clear. Interstitial pattern matches comparison. Numerous mediastinal and hilar granulomatous type calcifications are seen. Lung markings are accentuated slightly due to low lung volumes. Heart and vasculature are normal. No measurable pleural effusion and no pneumothorax. No acute bony abnormality seen. No acute aortic findings suspected. IMPRESSION: No acute cardiopulmonary process. No significant change from comparison study. Medical problem list: Altered mental status secondary to polypharmacy and likely incidental overdose of his pain/anxiety medication CAD COPD on chronic steroids Chronic pain disorder Chronic renal disease stage III History of abdominal aortic aneurysm Factor V Leiden on chronic anticoagulation therapy Severe aortic stenosis Hypertension Brief History of Present Illness: 75-year-old male with multiple medical problems. Patient was brought in by EMS after family reported increased confusion, lethargy. His home health nurse reported that the patient was doing fine in the morning. Patient had a cup of coffee with family member then became altered later in the evening. Patient was evaluated in the ER. CBC unremarkable. No evidence of infection noted. CT head unremarkable. Chest x-ray unremarkable. Patient was positive for opiates, barbiturates and benzodiazepine. Patient was admitted for observation. Hospital Course: Patient presented with altered mental status this is likely polypharmacy and incidental overdose of his pain/anxiety medication. Initial evaluation shows no evidence of infection. Chest x-ray unremarkable. CT head unremarkable. LabCBC, procalcitonin, and BMP unremarkable. The patient was monitored overnight. His condition has improved. Patient back to baseline. CBC remains normal. Repeat procalcitonin negative. Blood culture was positive but this is likely a contaminant. No evidence of infection at this time. The patient was positive for benzodiazepine, barbiturates and opiates. Patient admits to taking his daughter's anxiety medication. Patient educated on not taking other peoples medication. Education on risk of combining pain and anxiety medications. Recommend to limit use of pain and anxiety medication. Recommend follow-up with his PCP in 1 week to follow-up hospitalization. Patient with chronic pain. Patient takes multiple medications. Medications reviewed. Patient takes fentanyl 100 mcg every 72 hours patch, gabapentin 300 m g daily, and [place] 10/325 mg every 6 hours as needed for pain. Patient takes tizanidine as needed for muscle spasm. Recommend to discontinue medication if this is not needed. Recommend follow-up with pain management to further monitor and address his medications. Recommend to wean off medication under the direction of pain management. Physical therapy worked with patient prior to discharge. Patient ambulating well. Fall precautions in place. Patient with hypertension. At discharge patient will continue with his current medications of Norvasc 2.5 mg daily, carvedilol 6.25 mg 1 pill twice daily, clonidine 0.1 mg twice daily, and lisinopril 40 mg daily. Recommend to maintain blood pressure less than 130/80. Further adjustment can be done by his PCP. Patient with underlying COPD on chronic steroids. At discharge patient will continue with his medication of Breo 1 puff daily, albuterol 2 puffs 3 times a day as needed for shortness of breath and prednisone 40 mg daily. Recommend follow-up with his physician/ophthalmologist as directed to further address and monitor his condition. Patient with factor V Leiden. Patient on chronic anticoagulation therapy. At discharge patient will continue with Coumadin 8 mg at bedtime. Maintain INR between 2 and 3. Recommend for his PCP to further monitor his INR appropriately. Further adjustment can be done by his PCP. Patient with chronic headaches. At discharge patient will continue with Topamax 100 mg 1 pill twice daily. Patient also takes Elavil 75 mg at bedtime. Patient with history of tremors. At discharge patient will continue with primidone 250 mg daily. Patient with CAD, severe aortic stenosis and abdominal aortic aneurysm. Recommend follow-up with cardiology to further monitor these conditions. Patient with chronic renal disease stage III. This appears stable at this time. Recommend no further use of nonsteroidal anti-inflammatories. Future medications made to be renally dosed. Recommend to recheck labBMP in 1 to 2 weeks to monitor his progress. Vital Signs/Physical Exam: Temp Pulse Resp BP Pulse Ox 98.3 F 64 18 154/92 H 97 02/19/21 04:30 02/19/21 06:08 02/19/21 06:08 02/19/21 06:08 02/19/21 06:08 General: Alert, In no apparent distress, Oriented x3, Cooperative HEENT: Atraumatic Neck: Supple Respiratory: Clear to auscultation bilaterally, Normal air movement Cardiovascular: Normal pulses, Regular rate/rhythm Gastrointestinal: Normal bowel sounds, No tenderness, No masses, No rebound, No guarding Musculoskeletal: No erythema, No tenderness, No warmth Integumentary: No tenderness/swelling Neurological: Normal speech, Normal strength at 5/5 x4 extr, Normal tone, Normal affect Laboratory Data at Discharge: WBC 7.80 K/uL (4.3-10.9) D 02/19/21 05:06 Hgb 13.2 g/dL (13.6-17.9) L 02/19/21 05:06 Hct 38.9 % (39.6-49.0) L 02/19/21 05:06 Plt Count 211 K/uL (152-406) D 02/19/21 05:06 PT 16.0 SECONDS (9.5-12.5) H 02/18/21 17:30 INR 1.39 02/18/21 17:30 Sodium 134 mmol/L (136-145) L 02/19/21 05:06 Potassium 4.2 mmol/L (3.5-5.1) 02/19/21 05:06 BUN 10 mg/dL (7-18) 02/19/21 05:06 Creatinine 1.06 mg/dL (0.55-1.3) 02/19/21 05:06 Glucose 104 mg/dL (74-106) 02/19/21 05:06 Magnesium 2.2 mg/dL (1.8-2.4) 02/18/21 18:37 Total Bilirubin 0.5 mg/dL (0.2-1.0) 02/19/21 05:06 AST 17 U/L (15-37) 02/19/21 05:06 ALT 20 U/L (12-78) 02/19/21 05:06 Alkaline Phosphatase 213 U/L (45-117) H 02/19/21 05:06 Home Medications: Albuterol Sulfate [Proair Respiclick] 90 mcg IH Q6H PRN 01/24/19 Amlodipine [Norvasc*] 2.5 mg PO DAILY 01/24/19 Fluticasone/Vilanterol [Breo Ellipta 200-25 Mcg INH] 1 puff IH DAILY 01/24/19 Gabapentin 300 mg PO DAILY 01/24/19 Hydrocodone Bit/Acetaminophen [Hydrocodon-Acetaminophn 10-325] 1 tab PO Q6H PRN 01/24/19 Primidone 250 mg PO DAILY 01/24/19 Topiramate [Topamax] 100 mg PO BID 01/24/19 Warfarin Sodium 8 mg PO DAILY 01/24/19 carvediloL [Coreg*] 6.25 mg PO BID 01/24/19 fentaNYL [Fentanyl] 100 mcg TOP SEECOM 01/24/19 lisinopriL [Lisinopril] 40 mg PO DAILY 01/24/19 predniSONE [Deltasone] 20 mg PO DAILY #5 tablet 01/25/19 Amitriptyline HCl 75 mg PO BEDTIME 10/03/20 Clonidine HCl [Clonidine HCl ER] 0.1 mg PO BID* 02/19/21 Physician Discharge Instructions: Patient presented with altered mental status this is likely polypharmacy and incidental overdose of his pain/anxiety medication. Initial evaluation shows no evidence of infection. Chest x-ray unremarkable. CT head unremarkable. LabCBC, procalcitonin, and BMP unremarkable. The patient was monitored overnight. His condition has improved. Patient back to baseline. CBC remains normal. Repeat procalcitonin negative. Blood culture was positive but this is likely a contaminant. No evidence of infection at this time. The patient was positive for benzodiazepine, barbiturates and opiates. Patient admits to taking his daughter's anxiety medication. Patient educated on not taking other peoples medication. Education on risk of combining pain and anxiety medications. Recommend to limit use of pain and anxiety medication. Recommend follow-up with his PCP in 1 week to follow-up hospitalization. Patient with chronic pain. Patient takes multiple medications. Medications reviewed. Patient takes fentanyl 100 mcg every 72 hours patch, gabapentin 300 mg daily, and [place] 10/325 mg every 6 hours as needed for pain. Patient takes tizanidine as needed for muscle spasm. Recommend to discontinue medication if this is not needed. Recommend follow-up with pain management to further monitor and address his medications. Recommend to wean off medication under the direction of pain management. Physical therapy worked with patient prior to discharge. Patient ambulating well. Fall precautions in place. Patient with hypertension. At discharge patient will continue with his current medications of Norvasc 2.5 mg daily, carvedilol 6.25 mg 1 pill twice daily, clonidine 0.1 mg twice daily, and lisinopril 40 mg daily. Recommend to maintain blood pressure less than 130/80. Further adjustment can be done by his PCP. Patient with underlying COPD on chronic steroids. At discharge patient will continue with his medication of Breo 1 puff daily, albuterol 2 puffs 3 times a day as needed for shortness of breath and prednisone 40 mg daily. Recommend follow-up with his physician/ophthalmologist as directed to further address and monitor his condition. Patient with factor V Leiden. Patient on chronic anticoagulation therapy. At discharge patient will continue with Coumadin 8 mg at bedtime. Maintain INR between 2 and 3. Recommend for his PCP to further monitor his INR appropriately. Further adjustment can be done by his PCP. Patient with chronic headaches. At discharge patient will continue with Topamax 100 mg 1 pill twice daily. Patient also takes Elavil 75 mg at bedtime. Patient with history of tremors. At discharge patient will continue with primidone 250 mg daily. Patient with CAD, severe aortic stenosis and abdominal aortic aneurysm. Recommend follow-up with cardiology to further monitor these conditions. Patient with chronic renal disease stage III. This appears stable at this time. Recommend no further use of nonsteroidal anti-inflammatories. Future medications made to be renally dosed. Recommend to recheck labBMP in 1 to 2 weeks to monitor his progress. Diet: AHA Activity: Ad payal Followup: NONE,NONE [Primary Care Provider] - Time spent managing pt's care (in minutes): 55
[2021-02-19] MEDS ORDERED: HYDROCODONE/APAP 10/325 TAB PO PRN (07:10)
[2021-02-19] MEDS ORDERED: GABAPENTIN 300 MG CAP ONE (08:56)
[2021-02-19] MEDS ORDERED: lisinopriL 20 MG TAB ONE (08:56)
[2021-02-19] MEDS ORDERED: predniSONE 20 MG TAB ONE (08:56)
[2021-02-19] MEDS ORDERED: carvediloL 6.25 MG TAB ONE (08:56)
[2021-02-19] MEDS ORDERED: cloNIDine HCL 0.1 MG TAB ONE (08:56)
[2021-02-19] MEDS ORDERED: HOME MED 1 EA UNK (Fluticasone/Vilanterol [Breo Ellipta 200-25 Mcg Inh] Blst.W.Dev) IH SCH (09:00)
[2021-02-19] MEDS ORDERED: AMLODIPINE 2.5 MG TAB PO SCH (09:00)
[2021-02-19] MEDS ORDERED: carvediloL 6.25 MG TAB PO SCH (09:00)
[2021-02-19] MEDS ORDERED: GABAPENTIN 300 MG CAP PO SCH (09:00)
[2021-02-19] MEDS ORDERED: PRIMIDONE 250 MG TAB PO SCH (09:00)
[2021-02-19] MEDS ORDERED: lisinopriL 20 MG TAB PO SCH (09:00)
[2021-02-19] MEDS ORDERED: TOPIRAMATE 100 MG TAB PO SCH (09:00)
[2021-02-19] MEDS ORDERED: predniSONE 20 MG TAB PO SCH (09:00)
[2021-02-19] MEDS ORDERED: Clonidine Hcl [Clonidine Hcl Er] 0.1 MG Tab.Er.12h PO SCH (09:00)
[2021-02-19 09:47] VITALS: O2SAT 100
[2021-02-19] MEDS ORDERED: HYDROCODONE/APAP 10/325 TAB ONE (09:54)
[2021-02-19 12:28] VITALS: BP 127/77
[2021-02-19] MEDS ORDERED: WARFARIN SODIUM 4 MG TAB PO SCH (17:00)
--- NOTE | 2021-02-19 19:17 | EKG ---
Test Date: 2021-02-18 Test Time: 16:16:09 [employer] Operator: ANGELITO MEASUREMENT RESULTS: Intervals: Rate: 58 LA: 190 QRSD: 100 QT: 428 QTc: 420 [place]: P: 84 LA: 190 QRS: 23 T: 62 INTERPRETIVE STATEMENTS: Sinus bradycardia Otherwise normal ECG Compared to ECG 02/09/2021 13:29:03 Sinus rhythm no longer present Ventricular premature complex(es) no longer present Electronically Signed On 02-19-21 19:13:51 CDT by Conrad Scherer
[2021-02-19] MEDS ORDERED: AMITRIPTYLINE 25 MG TAB PO SCH (21:00)
== END 2021-02-19 12:37 | disposition home or self-care (01) ==
LOC: ER 16:07 → ERHOLD 02-19 00:15
PROVIDERS: ADMIT Family Medicine; ATTEND Family Medicine
DX: R41.82 Altered mental status, unspecified (principal); Z79.899 Other long term (current) drug therapy; I25.10 Atherosclerotic heart disease of native coronary artery without angina pectoris; J44.9 Chronic obstructive pulmonary disease, unspecified; Z79.52 Long term (current) use of systemic steroids; G89.29 Other chronic pain; I12.9 Hypertensive chronic kidney disease with stage 1 through stage 4 chronic kidney disease, or unspecified chronic kidney disease; N18.30 Chronic kidney disease, stage 3 unspecified; D68.51 Activated protein C resistance; Z79.01 Long term (current) use of anticoagulants; I35.0 Nonrheumatic aortic (valve) stenosis; R51.9 Headache, unspecified; R25.1 Tremor, unspecified; I71.4 Abdominal aortic aneurysm, without rupture; I73.9 Peripheral vascular disease, unspecified; R05 Cough
CPT/HCPCS: 36415; 70450; 71045; 80048; 80053; 80076; 80307; 81003; 81015; 82947; 83735; 83880; 84145; 84484; 85025; 85610; 87040; 87077; 87186; 87205; 93005; 94640; 94760; 97161; 99284; G0378; J0360; J7512

== ENCOUNTER 2022-05-07 11:06 | Emergency (ER) | payer OTHER ==
--- OUTSIDE RECORDS SUMMARY | 2022-05-07 11:17 | XMS REPORT | Continuity of Care Document ---
:1945 Author Organization [facility] t Address [address] [place] [address] Care Team Providers Name Role Phone AMIRAH DE LA CRUZ Primary Care Physician Unavailable Amirah De La Cruz Attending Clinician Unavailable KANDY HWANG Attending Clinician Unavailable James Elliott Attending Clinician DENZEL GRIGGS Attending Clinician Unavailable KYLIE PARKER Attending Clinician Unavailable PITER TIM Attending Clinician Unavailable NANDO HDZ Attending Clinician Unavailable Abraham Prather Attending Clinician KANDY HWANG Admitting Clinician Unavailable DENZEL GRIGGS Admitting Clinician Unavailable PITER TIM Admitting Clinician Unavailable NANDO HDZ Admitting Clinician Unavailable Pavan Salguero Admitting Clinician Payers Payer Name Policy Type Policy Number Effective Date Expiration Date Gerry sinha MEDICARE A B [id number] 2004 00:00:00 Problems Condition Condition Condition Status Onset Resolution Last Treating Co mments Source Name Details Category Date Date Treatment Clinician Date Thoracic Thoracic Disease Active [facility]05 [facility] aneurysm aneurysm 00:00: Medica l 00 Center 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 6-28 [facility] of 00:00: Medical thoracic thoracic 00 Center aorta, aorta, [place] type B type B PAD PAD Disease Active 2018-08 Methodi (periphera (periphera 0-30 st l artery l artery 00:00: Hospit a disease) disease) 00 l 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 Plan: Bilateral LE vein mapping ZHANE (acute ZHANE (acute Disease Active C [facility] kidney kidney 8-28 [facility] injury) injury) 00:00: Medical 00 Center Abscess of Abscess of Disease Active C [facility] right right 8-15 [facility] groin groin 00:00: Medical 00 Center S/P TAVR S/P TAVR Disease Active [facility] (transcath (transcath 12-10 [facility] eter eter 00:00: Medical aortic aortic Center valve valve replacemen replacemen t) t) Aneurysm Aneurysm Disease Active [facility] t of artery of artery 12-04 [facility] of lower 00:00: Medica l extremity extremity 00 Cent er SARAH SARAH Diagnosis Active 2015-082016-05-26 Memoria BILLING BILLING 0-15 12:09:00 l [id number] 20:28: Jevon Active 00 05/24/2016 [facility] SDH SDH Diagnosis Active 2015-082016-06-05 Mem oria Active 23:20:00 l 05/24/2016 00:00: [place] baez [address] 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 - [facility] Anxiety Other Problem Common disorder specified Spiri t anxiety - CHI disorders [facility] Heart Heart Problem Common failure failure [facility] Hypertensi Hypertensi Problem C ommon ve heart ve heart Spirit AND and - CHI chronic chronic kidney kidney [facility] disease disease Medical with with heart Center congestive failure heart and stage failure 1 through stage 4 chronic kidney disease, or unspecifie d chronic kidney disease [id number] Watery Problem Common diarrhea [facility] Chronic Chronic Problem Common kidney kidney Spirit disease, disease, - CHI stage III stage III (moderate) (moderate) 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 [facility] Tremor Tremor Problem Common [facility] Memory Memory Problem Common loss loss [facility] Thoracic Thoracic Problem Commo n aortic aortic Spirit aneurysm aneurysm - [facility] without without St rupture rupture [facility] Nicotine Nicotine Problem Commo n dependence dependence Sp idalia - [facility] [id number] Hypercoagu Problem Com mon lable Spirit state [facility] Hemiplegia Hemiplegia Problem C ommon of and Spirit nondominan hemiparesi - CHI t side as s St late following [facility] effect of other Medical cerebrovas cerebrovas Ce nter cular cular disease disease affecting left non-domina nt side Insomnia Insomnia Problem Commo n Spirit - CHI [facility] Degenerati Degenerati Problem C ommon on of on of Spirit lumbar lumbar or - CHI interverte lumbosacra [facility] disc l [facility] interverte Medica bra disc Kila Chronic Chronic Problem Common back pain back pain Spir it - CHI [facility] Cerebrovas Cerebrovas Problem C ommon cular cular Spirit accident accident - [facility] Mixed Depression Problem Commo n anxiety with Spirit and anxiety - CHI depressive disorder [facility] Long-term Anticoagul Problem Co mmon current ated Spirit use of - CHI anticoagul [facility] Aortic Aortic Problem Common valve valve Spirit stenosis stenosis - [facility] Essential Benign Problem Common hypertensi essential Spi rit on HTN - [facility] Vitamin D Vitamin D Problem Com mon deficiency deficiency Sp idalia - CHI [facility] Carotid Occlusion Problem Commo n artery and Spirit occlusion stenosis - [facility] of carotid artery [facility] History of H/O fall Problem Com mon fall Spirit CHI [facility] History of H/O TIA Problem Comm on cerebrovas (transient Sp idalia cular ischemic - CHI accident attack) St without and stroke [facility] Medical [facility] [id number] Gastrointe Problem Com mon stinal Spirit hemorrhage - CHI , St unspecifie [facility] d Medical gastrointe Center stinal hemorrhage type Abdominal Aortic Problem Common aortic aneurysm, Spirit aneurysm abdominal - CHI without St rupture [facility] [id number] Physical Problem Commo n debility Spirit - CHI [facility] [id number] H/O aortic Problem C ommon 9102 valve Spirit replacemen - CHI t with [facility] valve [facility] Anemia of Anemia in Problem Com mon chronic chronic Spirit disorder illness - [facility] [id number] Asymptomat Problem Co mmon ic Spirit hypertensi - CHI ve urgency [facility] [id number] Non-healin Problem Co mmon g surgical Spirit wound of - CHI right groin, [facility] subsequent Medica l encounter Center Polyneurop Polyneurop Problem C ommon athy athy in Spirit diseases - CHI classified [facility] Vitamin Vitamin B Problem Commo n B12 12 Spirit deficiency deficiency - [facility] (non St anemic) [facility] Benign Benign Problem Common prostatic hypertroph Spi rit hypertroph y of - CHI y without prostate St outflow [facility] obstructio Medica l n Kila [id number] Hypocalcem Problem Comm on ia Spirit - CHI [facility] Chronic Stage 3a Problem Common kidney chronic Spirit disease kidney - [facility] stage 3A disease [facility] Moderate Moderate Problem Commo n major major [facility] depression depression - [facility] , single , single St episode episode [facility] Atheroscle Atheroscle Problem C ommon rosis of rosis of Spirit [place] [facility] arteries arteries St of right of right [facility] leg with leg with Medica l ulceration ulceration Ce nter of thigh of thigh Severe Severe Disease Active [facility] St aortic aortic [facility] stenosis stenosis Medica l Center Anemia Anemia Disease Active [facility] HTN HTN Disease Active [facility] St (hypertens (hypertens Karine kes ion) ion) Medical Kila Hyperlipid Hyperlipid Disease Active C [facility] emia emia [facility] COPD COPD Disease Active [facility] St (chronic (chronic [facility]ukes obstructiv obstructiv Me dical e e Center pulmonary pulmonary disease) disease) Seizures Seizures Disease Active [facility] S [facility] Peripheral Peripheral Disease Active [facility] vascular vascular [facility] disease disease Medical Center Blood Blood Disease Active Overview: [facility] clotting clotting Formattin Hasmukh es tendency tendency g of this Med ical note Center might be different from the original. 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 Me dical Center Atrial Atrial Disease Active [facility] fibrillati fibrillati Karine kes on on Medical Center Thoracoabd Thoracoabd Disease Active C [facility] ominal ominal [facility] aneurysm aneurysm Medica l Center Abdominal Abdominal Disease Active [facility] St aortic aortic [facility] aneurysm aneurysm Medica l (AAA) (AAA) Center DVT (deep DVT (deep Disease Active [facility] venous venous Lukes thrombosis thrombosis Me dical ) ) Center Coxitis Coxitis Problem Active 2022-03-17 Me moria (disorder) (disorder) 02:47:41 l Active Jevon Problem 03/17/2022 [facility] Essential Essential Problem Active 2022-03-17 Memoria tremor tremor 02:47:41 l (disorder) (disorder) He rmann Active Problem 03/17/2022 [facility] Lumbar Lumbar Problem Active 2022-03-17 Mem oria radiculopa radiculopa 02:47:41 l thy thy [place] (disorder) (disorder) Active Problem 03/17/2022 [facility] Subdural Subdural Problem Active 2022-03-17 Memoria hematoma hematoma 02:47:41 l (disorder) (disorder) He rmann Active Problem 03/17/2022 [facility] Neuro,[facility] NONTRAUMAT NONTRAUMA Diagnosis Active 2016-06-05 Memoria IC TIC 23:20:00 l SUBDURAL SUBDURAL [place] n HEMORRHAGE HEMORRHAGE , UNSPEC , UNSPEC Active [facility] Allergies, Adverse Reactions, Alerts Allergy Allergy Status Severity Reaction(s) Onset Inactive Treating Comm ents Source Name Type Date Date Clinician NO KNOWN Allergy Active SLE ALLERGIE S Social History Social Habit Start Date Stop Date Quantity Comments Source History of Tobacco Common Spirit - Use [facility] Alcohol intake 2019-06-10 2019-06-10 Ex-drinker Mosque 00:00:00 00:00:00 (finding) [facility] Cigarettes smoked 2019-05-27 2019-05-[address] current (pack per 00:00:00 00:00:00 [facility] l ) - Reported Cigarette 2019-05-27 2019-05-27 Mosque pack-years 00:00:00 00:00:00 [facility] Alcohol Comment 2019-05-27 2019-05-27 quit ~2004 [facility] 00:00:00 00:00:00 [facility] Tobacco Comment 2017-12-09 2017-12-[address] [facility] 00:00:00 00:00:00 [facility] Tobacco use and 2017-11-16 2017-11-[address] [facility] exposure 00:00:00 00:00:00 [facility] Sex [birth year] At [birth year] [facility] 00:00:00 00:00:00 Hospital Smoking Status Start Date Stop Date Source Social History 2020-11-01 21:07:23 2020-11-01 21:07:23 [facility] Medications Ordered Filled Start Stop Current Ordering Indication Dosage Frequency Signature Comments Components Source Medication Medication Date Date Medication? Clinician (SIG) Name Name Zofran 4 MG Zofran 4 MG No BID Zofran 4 9-13 MG 00:00: 00 primidone 2020-08 Yes See Memoria 250 mg oral 1-22 Instructio l tablet 16:58: ns, TAKE Hume 00 ONE (1) TABLET(S) BY MOUTH ONCE A DAY., # 30 ea, 4 Refill(s), Pharmacy: [place] [id number], 65.455, kg, 11/01/20 16:06:00 CDT, Weight amLODIPine 2020- No 10mg QD Take [address] (NORVASC) 7-03 10-01 tablet (10 Hasmukh es 10 MG 00:00: 23:59 mg total) Medica l tablet 00 :00 by mouth Center daily for 90 days. albuterol Yes 1{puff} Inhale [address] HFA 7-02 puff by [facility] (VENTOLIN 14:28: mouth via Med ical HFA) 90 46 inhaler Center mcg/actuati every 6 on inhaler (six) hours as needed for Wheezing. fluticasone Yes 1{puff} QD Inhale [address] -vilanterol 7-02 puff by [facility] (BREO 14:28: mouth via Medical ELLIPTA) 46 inhaler Center 200-25 daily. mcg/dose DsDv tiZANidine Yes 4mg Take [address] (ZANAFLEX) 7-02 by mouth 3 Hasmukh es 4 MG tablet 14:28: (three) Med ical 46 times Center daily as needed. primidone Yes 250mg QD Take [address] (MYSOLINE) 7-02 mg by [facility] 250 MG 14:28: mouth Medical tablet 46 daily. Center topiramate Yes 100mg Q.5D Take [address] (TOPAMAX) 7-02 mg by [facility] 100 MG 14:28: mouth 2 Medical tablet 46 (two) Center times daily. warfarin Yes 9mg QD Take [address] (COUMADIN) 7-02 by mouth [facility] 10 MG 14:28: daily. Medical tablet 46 Center aspirin 81 0 Yes [address] MG chewable 7-02 Orally [facility] tablet 14:28: Once a day Medic al 46 Center omeprazole Yes 1{capsu [address] (PriLOSEC 02-08 le} [facility] OTC) 20 MG 14:28: Medical tablet 46 Center CHOLECALCIF Yes Take by [facility] ROC, 02-08 mouth. [facility]ukes VITAMIN D3, 14:28: Medica l ORAL 46 Center cloNIDine Yes [address] HCL 02-08 at bedtime [facility]ukes (CATAPRES) 14:28: Medical 0.1 MG 46 Center tablet ferrous Yes TAKE ONE [facility] sulfate 325 02-08 (1) [facility]ukes (65 FE) MG 14:28: TABLET(S) Me dical tablet 46 BY MOUTH Center TWICE A DAY WITH MEALS. amitriptyli Yes [address] ne (ELAVIL) 02-08 [facility] 75 MG 14:28: Medical tablet 46 Center atorvastati Yes TAKE ONE [facility] n (LIPITOR) 02-08 (1) [facility] 40 MG 14:28: TABLET(S) Medical tablet 46 BY MOUTH Center NIGHTLY. carvediloL No 6.25mg Q.5D Take [address] (COREG) 02-08 09-30 tablet [facility] 6.25 MG 00:00: 23:59 (6.25 mg Medic al tablet 00 :00 total) by Center mouth 2 (two) times daily for 90 days. dicyclomine Yes TAKE ONE [facility] (BENTYL) 20 6-23 (1) [facility] mg tablet 00:00: TABLET(S) Med ical 00 BY MOUTH Center EVERY SIX HOURS NEEDED. ondansetron Yes TAKE ONE [facility] (ZOFRAN) 4 6-23 (1) [facility] MG tablet 00:00: TABLET(S) Med ical 00 BY MOUTH Center EVERY SIX HOURS NEEDED. gabapentin Yes 300 mg = 1 M emoria 300 MG Oral 3-25 cap, PO, l Capsule 21:18: BID, # 60 Saskia nn 00 cap, 5 Refill(s), Pharmacy: [facility] [place], 65.455, kg, 11/01/20 16:06:00 CDT, Weight primidone Yes See Memoria 250 mg oral 3-25 Instructio l tablet 21:18: ns, TAKE Jevon 00 ONE (1) TABLET(S) BY MOUTH ONCE A DAY., # 30 ea, 5 Refill(s), Pharmacy: [facility], 65.455, kg, 11/01/20 16:06:00 CDT, Weight topiramate 0 Yes = 1 tab, Mem oria 100 mg oral 3-25 PO, BID, # l tablet 21:18: 60 ea, 5 Hume 00 Refill(s), Pharmacy: [facility], 65.455, kg, 11/01/20 16:06:00 CDT, Weight gabapentin Yes 300 mg = 1 M emoria 300 MG Oral 5-07 cap, PO, l Capsule 15:51: BID, # 60 Saskia nn 00 cap, 5 Refill(s), Pharmacy: [facility] gabapentin Yes See Memoria 300 MG Oral 4-03 Instructio l Capsule 14:22: ns, # 90 [place] n 27 ea, Refill(s) 1, TAKE ONE (1) CAPSULE(S) BY MOUTH AT BEDTIME., Pharmacy: [facility] CHOLECALCIF 2018-08 Yes QD Take by Met loco ROC, 1-[address] VITAMIN D3, 15:48: daily. Hosp david ORAL 41 l polyethylen 2018-08 Yes Q24H Take by Met loco e glycol 1-[address] (GLYCOLAX) 15:48: daily as Hos helga 17 41 needed. l gram/dose powder albuterol 2018-08 Yes 1{puff} Inhale 1 M ethodi (PROAIR 1-[address] HFA,PROVENT 15:48: Hospit a [place] 41 l HFA,VENTOLI N HFA) 90 mcg/actuati on inhaler clonIDINE 2018-08 Yes .1mg Take 0.1 Meth jessica (CATAPRES) 1-[address] 0.1 MG 15:48: mouth as Hospita tablet 41 needed. l lisinopril 2018-08 Yes 40mg QD Take 40 mg M ethodi (PRINIVIL) [address] 40 mg 15:48: every Hospita tablet 41 morning. l topiramate 2018-08 Yes 100mg QD Take 100 Me thodi (TOPAMAX) 1-[address] 100 MG 15:48: mouth Hospita tablet 41 every l morning. warfarin 2018-08 Yes 7mg QD Take 7 mg Meth jessica sodium 1-[address] (WARFARIN 15:48: daily. Hospit a ORAL) 40 l tiZANidine 2018-08 Yes 4mg Q.25D Take 4 mg M ethodi (ZANAFLEX) 0-[address] 4 MG tablet 00:00: (four) Hosp david 00 times a l day. amLODIPine 2019- Yes QD every Method i (NORVASC) [address] 2.5 mg 00:00: Hospita tablet 00 l gabapentin 2018-0 Yes QD nightly. Met hodi (NEURONTIN) 8 st 300 mg 00:00: Hospita capsule 00 l amitriptyli 2018-0 Yes QD nightly. Me thodi ne (ELAVIL) 7-04 st 75 MG 00:00: Hospita tablet 00 l GABAPENTIN Yes = 1 cap, Mem oria CAP 300MG 5-28 PO, l 14:33: Bedtime, # Hume 53 30 ea, Refill(s) 5, Pharmacy: [facility] [place] gabapentin Yes 300 mg = 1 M emoria 300 MG Oral 1-08 cap, PO, l Capsule 23:41: Bedtime, # Herm francisco 00 30 cap, 3 Refill(s), Pharmacy: [facility] amitriptyli Yes 75 mg = 1 M emoria ne 75 mg 1-04 tab, PO, l oral tablet 22:41: Bedtime, # Hume 00 30 tab, 0 Refill(s) amLODIPine Yes 5 mg = 1 Mem oria 5 mg oral 1-04 tab, PO, l tablet 22:41: Daily, # Jevon 00 90 tab, 0 Refill(s) primidone Yes = 1 tab, Micah taylor 250 mg oral 1-04 PO, Daily, l tablet 22:35: # 30 tab, [place] n 26 9 Refill(s), Pharmacy: [facility] [place] topiramate Yes 100 mg = 1 M emoria 100 mg oral 1-04 tab, PO, l tablet 22:35: BID, # 60 [place] n 00 tab, 9 Refill(s), Pharmacy: [facility] Pharm[facility] 100 % Yes 1{appli QD Apply [address] Pste 8-21 cation} applicatio [facility] 00:00: n Medical 00 topically Center daily. tamsulosin Yes .4mg QD Take 1 [facility]I S t (FLOMAX) 6-29 capsule [facility] 0.4 mg Cp24 00:00: (0.4 mg Med ical 24 hr 00 total) by Center capsule mouth daily. HYDROcodone Yes [facility] -acetaminop 5-09 [facility]ukes hen (NORCO 00:00: Medical 10-325) 00 Center 10-325 mg per tablet primidone Yes 250mg QD Take 250 Met hodi (MYSOLINE) 3-[address] 250 MG 00:00: mouth Hospita tablet 00 nightly. l HYDROcodone Yes 4 times Met hodi -acetaminop 3-[address] hen (NORCO) 00:00: needed. Hos helga 10-325 mg 00 l per tablet fentaNYL Yes Every 48 Metho di (DURAGESIC) 2-[address] 100 mcg/hr 00:00: Hospita 00 l Warfarin 2015-08 Yes 5 mg = 1 Memor ia Sodium 5 MG 0-21 tab, PO, l Oral Tablet 14:27: Daily, INR Hume [Coumadin] 00 goal 2-3, # 30 tab, 0 Refill(s) tamsulosin 2015-08 Yes 0.8 mg = 2 M emoria 0.4 mg oral 0-21 cap, PO, l capsule 14:27: Daily, 0 [place] n 00 Refill(s) Levetiracet 2015-08 Yes 1,500 mg = Memoria am 500 MG 0-21 3 tab, PO, l Oral Tablet 14:27: V28R-06, # Jevon 00 90 tab, 0 Refill(s) Docusate 2015-08 Yes 100 mg = 1 Mem oria Sodium 100 0-21 cap, PO, l MG Oral 14:27: Q12H, # 20 Herm francisco Capsule 00 cap, 0 Refill(s) phenol 2015-08 No Notes: Memoria 0-21 Chlorasept l 03:35: ic [place] Jevon 00 (Same as: Chlorasept ic, Sore Throat [place]) WASTE: F/P - Black; E - Municipal [...] Duration: 30 day, Stop date: 06/26/16 9:00:00 RN MIDWIFE Remeron 2015-08 No Notes: Memoria 0-19 (Same [...] a 0-18 (Same as: l 17:00: Motrin [place] 00 Children's , Advil Children's ) Take with food. 72 HR 2015-08 No 1 patch, Memoria Fentanyl 0-18 Route: l 0.1 MG/HR 14:00: TOP, Jevon Transdermal 00 Dosing Patch Weight 76.36, kg, Daily, Start date: 05/27/16 9:00:00 CDT, Duration: 30 day, Stop date: 06/25/16 9:00:00 RN MIDWIFE Lisinopril 2015-08 No 40 mg, Memor ia 0-18 Route: PO, l 14:00: Drug form: Hume 00 TAB, Daily, Dosing Weight 76.36, kg, Start date: 05/27/16 9:00:00 CDT, Duration: 30 day, Stop date: 06/25/16 9:00:00 RN MIDWIFE Miralax 2015-08 No Notes: Memoria 0-18 Dissolve l 14:00: in 8 oz of Hume 00 water or juice. (Same as: Miralax) remove 2015-08 No Notes: Memoria patch 0-18 Remove old l 14:00: patch Jevon 00 before applicatio n of new patch. WASTE: F/P - P Waste Black; E - P Waste Black Keppra 2015-08 No Notes: Memoria 0-18 Same as l 12:25: Keppra Mix Jevon 00 with 100 mL NS, LR or D5W MEDICATION WASTE Product Size: 500 mg Product Wasted: ___ mg Keppra 2015-08 No Notes: Memoria 0-18 Same as l 09:00: Keppra Mix Hume 00 with 100 mL NS, LR or D5W MEDICATION WASTE Product Size: 500 mg Product Wasted: ___ mg Hydralazine 2015-08 No Notes: Micah taylor 0-18 (Same as: l 08:23: Apresoline Jevon 00 ) Push over 5 minutes heparin 2015-08 No Notes: Memoria 0-18 porcine l 05:00: heparin [place] 00 Fentanyl 2015-08 No Notes: Memoria 0-18 (Same as: l 04:47: Sublimaze) Jevon 00 Preservati ve free. Lisinopril 2015-08 No Notes: Memor ia 0-18 (Same as: l 01:00: Prinivil, Hume 00 Zestril) Fentanyl 2015-08 No Notes: Memoria 0-18 (Same as: l 00:51: Sublimaze) Hume 00 Preservati ve free. pneumococca 2015-08 No Notes: Micah taylor l 13-valent 0-18 Lightly l vaccine 00:50: roll vial Saskia nn 00 (DO NOT SHAKE) before administra tion. (Same as: Prevnar 13) Albuterol 2015-08 No Notes: Memori a 0.833 MG/ML 0-17 (Same as: l / 21:26: Duoneb) Jevon Ipratropium 00 [place] 0.167 MG/ML Inhalant Solution [DuoNeb] Vitamin D3 2015-08 Yes 400 Memoria 400 intl 0-17 IntlUnit = l units oral 19:52: 1 cap, PO, H ermann capsule 00 Daily, 0 Refill(s) 200 ACTUAT 2015-08 Yes 2 puff, Micah taylor Albuterol 0-17 INHALER, l 0.09 19:52: Q6H, PRN Jevon MG/ACTUAT 00 for Metered wheezing, Dose # 8.5 gm, Inhaler 0 [ProAir Refill(s) HFA] mirtazapine 2015-08 Yes 7.5 mg = 1 Memoria 7.5 mg oral 0-17 tab, PO, l tablet 19:52: Bedtime, # Saskia nn 00 30 tab, 1 Refill(s) Eszopiclone 2015-08 Yes 1 mg = 1 Me moria 1 MG Oral 0-17 tab, PO, l Tablet 19:52: Bedtime, Hume [Lunesta] 00 PRN for insomnia, # 30 tab, 0 Refill(s) Trazodone 2015-08 No 50 mg = 1 Mem oria Hydrochlori 0-17 tab, PO, l de 50 MG 19:52: TID, # 90 Herm francisco Oral Tablet 00 tab, 0 Refill(s) Acetaminoph 2015-08 Yes 1 tab, PO, Memoria en 325 MG / 0-17 TID, PRN l Hydrocodone 19:52: Pain, # 60 Hume Bitartrate 00 tab, 0 10 MG Oral Refill(s) Tablet [Constable 10/325] lisinopril 2015-08 Yes 40 mg = [...] Q48H, l 0.1 MG/HR 19:52: # 15 Hume Transdermal 00 patch, 0 Patch Refill(s) [Duragesic] [...] tab, PO, l Coated 19:52: Daily, # Hume Tablet 00 90 tab, 3 Refill(s) Keppra 2015-08 No Notes: Memoria 0-17 Same as l 17:59: Keppra Mix Jevno 00 with 100 mL NS, LR or D5W MEDICATION WASTE Product Size: 500 mg Product Wasted: ___ mg Hydralazine 2015-08 No Notes: Micah taylor 0-17 (Same as: l 15:14: Apresoline Jevon 00 ) Push over 5 minutes Nicotine 2015-08 No Notes: Memoria 0-17 (Same as: l 14:00: Habitrol) Hume 00 "Remove old patch before applicatio n of new patch" WASTE: F/P - P Waste Black; E - P Waste Black Keppra + 2015-08 No Notes: Memoria sodium 0-17 Same as l chloride 06:57: Keppra Mix Her mackenzie 0.9% INJ 00 with 100 100 mL mL NS, LR or D5W MEDICATION WASTE Product Size: 500 mg Product Wasted: __0_ mg Keppra 2015-08 No 500 mg, Memoria 0-17 Route: l 06:28: IVPB, Hume 00 Q24H, Dosing Weight 76.36, kg, Priority: STAT, Start date: 05/26/16 1:28:00 CDT, Duration: 30 day, Stop date: 06/24/16 1:28:00 RN MIDWIFE sodium 2015-08 No 1,000 mL, Memori a chloride 0-17 Rate: 50 l 0.9% 1000 02:30: ml/hr, [place] n ml INJ 00 Infuse 1,000 mL over: 20 hr, Route: IV, Dosing Weight 76.36 kg, Total Volume: 1,000, Start date: 05/25/16 21:30:00 CDT, Duration: 30 day, Stop date: 06/24/16 21:29:00 RN MIDWIFE Acetaminoph 2015-08 No Notes: Micah taylor en 325 MG / 0-17 (Same as: l Hydrocodone 01:00: Constable Saskia nn Bitartrate 00 325/5) Do 5 MG Oral not exceed Tablet 4gm/day of [Constable acetaminop 5/325] hen. Tylenol 2015-08 No Notes: Do Memor ia 0-17 not exceed l 00:38: 4 gm/day. Hume 00 (Same as: Tylenol) Albuterol 2015-08 No [...] Duration: 30 day, Stop date: 06/24/16 15:56:00 RN MIDWIFE Ancef 2015-08 No 2 gm, Memoria 0-16 Route: l 19:15: IVPB, Hume 00 ONCE, Dosing Weight 76.36, kg, Start date: 05/25/16 14:15:00 CDT, Duration: 1 doses or times, Stop date: 05/25/16 14:15:00 CDT Streptococc 2015-08 No Notes: Micah taylor us 0-16 Lightly l pneumoniae 14:00: roll vial He rmann serotype 1 00 (DO NOT capsular SHAKE) antigen before diphtheria administra [id number] tion. protein (Same as: conjugate Prevnar vaccine / 13) Streptococc us pneumoniae serotype 14 capsular antigen diphtheria [id number] protein conjugate vaccine / Streptococc us pneumoniae serotype 18C capsular antigen d Vitamin K1 2015-08 No Notes: Memor ia + sodium 0-16 (Same as: l chloride 14:00: Aqua-Mephy Her mackenzie 0.9% INJ 50 00 ton, mL Vitamin K) MEDICATION WASTE Product Size: 10 mg Product Wasted: ___ mg Saline 2015-08 No Notes: Memoria Flush 0.9% 0-16 (Same as: l 14:00: BD [place] 00 Posiflush) Levetiracet 2015-08 No Notes: Micah taylor am 0-16 (Same l 14:00: as:Keppra) [place] 00 Docusate 2015-08 No Notes: Memoria 0-16 (Same as: l 14:00: Colace) [place] 00 (Do Not Crush) sennosides, 2015-08 No Notes: Micah taylor SHELTER 0-16 (Same as: l 14:00: Senokot) [place] 00 Flomax 2015-08 No Notes: Memoria 0-16 (Same As: l 11:11: Flomax) Jevon 00 "Do Not Crush" Dexamethaso 2015-08 No Notes: Micah taylor ne 0-16 Concentrat l 10:39: ion: Jevon 00 4mg/ml Mannitol 2015-08 No Notes: Memoria 0-16 (Same as: l 10:16: Osmitrol) [place] 00 Infuse through 5 micron or smaller [...] Oxide 0-16 (Same as: l 04:11: Mag-Ox [place] 00 400) Magnesium oxide 180qc=353u g elemental magnesium Dose=____m g magnesium oxide (___mg elemental magnesium) Magnesium 2015-08 No Notes: Memori a Sulfate 0-16 WASTE: F/P l 04:11: - Sink; E [place] 00 - Municipal Trash Bin Calcium 2015-08 No Notes: Memoria Carbonate 0-16 (Same As: l 500 MG 04:11: Tums) [place] Chewable 00 Calcium Tablet Carbonate 500 mg [...] 0-16 (Same as: l sodium 04:11: K [place] chloride 00 Phosphate. 0.9% INJ ) 1 mMol 250 mL phoshate has 1.47 mEq potassium Infuse over 4 hours sodium 2015-08 No 45 mmol, Memoria phosphate + 0-16 15 mL, l sodium 04:11: Route: [place] chloride 00 IVPB, PRN, 0.9% INJ Dosing 250 mL Weight 76.364, kg, PRN Abnormal Lab Result, Start date: 05/24/16 23:11:00 CDT, Duration: 30 day, Stop date: 06/23/16 22:10:00 RN MIDWIFE, FOR ICU USE ONLY potassium 2015-08 No Notes: Memori a chloride 0-16 (Same as: l 04:11: KCL) Jevon 00 Infuse over 2 hours. iodixanol 2015-08 No 60 mL, Memori a 0-16 Route: l 03:50: IVP, Drug Form: SOLN, Dosing Weight 76.364, kg, ONCALL, STAT, Start date: 05/24/16 22:50:00 CDT, Duration: 1 doses or times, Dose = 2.2ml/kg, Max dose = 100ml -- "To be infused by Radiology Staff ONLY" Regular 2015-08 No 60 units) Micah taylor Insulin, 0-16 WASTE: F/P l Human 100 03:17: - Black; E He rmann UNT/ML 00 - Injectable Municipal Solution Trash Bin Stable for 28 days at room temperatur e Expires in days from ____Date Dextrose 2015-08 No 6.25 gm, Memor ia 50% Syringe 0-16 12.5 mL, l 03:17: Route: [place] 00 IVP, Drug Form: INJ, Dosing Weight 76.364, kg, PRN, PRN Abnormal Lab Result, Start date: 05/24/16 22:17:00 CDT, Duration: 30 day, Stop date: 06/23/16 21:16:00 RN MIDWIFE Saline 2015-08 No Notes: Memoria Flush 0.9% [...] not exceed l Hydrocodone 03:17: 4gm/day of [place] Bitartrate 00 acetaminop 10 MG Oral hen. (Same Tablet as: Constable 325/10) Levetiracet 2015-08 No Notes: Micah taylor [...] Duration: 30 day, Stop date: 06/23/16 22:16:00 RN MIDWIFE Acetaminoph 2015-08 No Notes: Micah taylor en 325 MG / 0-16 (Same as: l Hydrocodone 03:17: Constable Saskia nn Bitartrate 00 325/5) Do 5 MG Oral not exceed Tablet 4gm/day of acetaminop hen. Saline 2015-08 No Notes: Memoria Flush 0.9% 0-16 (Same as: l 01:56: BD Jevon 00 Posiflush) Clonidine Clonidine Yes Amirah 1 tablet Common HCl HCl De La Cruz at bedtime [facility] Lisinopril Lisinopril Yes Amirah 1 tablet [facility] Warfarin Warfar[facility] Yes Amirah 1 tablet ( Common Sodium Sodium De La Cruz 4 mg + 3 Spirit mg) [facility] Primidone Primidone Yes Amirah 1 tablet Common [facility] Ferrous Ferrous Yes Amirah TAKE ONE Com mon Sulfate Sulfate [place] Cruz (1) Spirit TABLET(S) - [facility] TW[facility] DAY WITH Medical MEALS. Center Amitriptyli Amitriptyli Yes Amirah 1 tablet Common ne HCl ne HCl De La Cruz [facility] Topamax Topamax Yes Amirah 1 tablet Com mon De La Cruz [facility] Warfarin Warfarin Yes Amirah 1 tablet C ommon Sodium Sodium [facility] Vitamin D3 Vitamin D3 Yes Amirah 2 tablets Common [facility] Zanaflex Zanaflex Yes Amirah 1 tablet C ommon [place] as needed [facility] Lipitor Lipitor Yes Amirah 1 tablet Com mon [facility] Breo Breo Yes Amirah 1 puff Common Ellipta Ellipta [place] [facility] Aspir-81 Aspir-81 Yes Amirah 1 tablet C ommon [place] [facility] ProAir HFA ProAir HFA Yes Amirah 2 puffs as Common [place] Cruz needed [facility] - [facility] Prilosec Prilosec Yes Amirah 1 capsule Common [place] Spirit [facility] Amlodipine Amlodipine Yes Amirah 1 tablet Common Besylate Besylate [place] [facility] Amlodipine Amlodipine Yes Amirah TAKE ONE Common Besylate Besylate [place] Cruz (1) Spirit TABLET(S) - [facility] TWICE [facility] DAY. [facility] Atorvastati Atorvastati Yes Amirah TAKE ONE Common n Calcium n Calcium De La Cruz (1) Spir it TABLET(S) - [facility] NIGHTLY. [facility] Breo Breo No Breo Ellipta Ellipta Ellipta 200-25 200-25 200-25 MCG/INH MCG/INH MCG/INH PriLOSEC 20 PriLOSEC 20 No 1{capsu QD PriLOSEC MG MG le} 20 MG Ferrous Ferrous No Ferrous Sulfate 325 Sulfate 325 Sulfate (65 Fe) MG (65 Fe) MG 325 (65 Fe) MG Aspir-81 81 Aspir-81 81 No 1{table QD Aspir-81 MG MG t} 81 MG Jantoven 1 Jantoven 1 No Jantoven 1 MG MG MG amLODIPine amLODIPine No 1{table QD amLODIPine Besylate 5 Besylate 5 t} Besylate 5 MG MG MG Lipitor 10 Lipitor 10 No 1{table QD Lipitor 10 MG MG t} MG Topamax 25 Topamax 25 No 1{table QD Topamax 25 MG MG t} MG Atorvastati Atorvastati No Atorvastat n Calcium n Calcium in Calcium 40 MG 40 MG 40 MG Warfarin Warfarin No 2{table QD Warfarin Sodium 4 MG Sodium 4 MG t} Sodium 4 MG cloNIDine cloNIDine No 1{table BID cloNIDine HCl 0.1 MG HCl 0.1 MG t_at_be HCl 0.1 MG dtime} Warfarin Warfarin No 1{table QD Warfarin Sodium 4 MG Sodium 4 MG t} Sodium 4 MG Amitriptyli Amitriptyli No Amitriptyl ne HCl 75 ne HCl 75 ine HCl 75 MG MG MG Coreg 6.25 Coreg 6.25 No 1{table BID Coreg 6.25 MG MG t_with_ MG food} Primidone Primidone No 1{table TID Primidone 250 MG 250 MG t} 250 MG Zanaflex 4 Zanaflex 4 No 1{table TID Zanaflex 4 MG MG t_as_ne MG eded} Lisinopril Lisinopril No 1{table QD Lisinopril 40 MG 40 MG t} 40 MG Vitamin D3 Vitamin D3 No 2{table QD Vitamin D3 400 UNIT 400 UNIT ts} 400 UNIT Albuterol Albuterol No Albuterol Sulfate HFA Sulfate HFA Sulfate 108 (90 108 (90 HFA 108 Base) Base) (90 Base) MCG/ACT MCG/ACT MCG/ACT Immunizations Ordered Immunization Filled Immunization Date Status Commen ts Source Name Name Day COVID-19 Day COVID-19 2021-06-21 Completed Co mmon Spirit - Vaccine (Low Dose Vaccine (Low Dose 15:00:00 [facility] Booster) Booster) [facility] Flu FluAD 2021-06-21 Completed [facility] - 14:59:00 [facility] FluAD FluAD 2020-06-07 Completed [facility] - 15:54:00 [facility] FLUZONE HIGH-DOSE PF 2019-06-17 Completed Meth odist 00:00:00 Hospital Afluria Afluria 2018-06-07 Completed [facility] - 16:29:00 [facility] pneumococcal 2016-05-27 Completed [facility] 13-valent vaccine 01:30:00 Vital Signs Vital Name Observation Time Observation Value Comments Source WEIGHT 2021-02-08 05:00:00 60.51 kg WEIGHT 2021-02-07 04:00:00 59.648 kg HEIGHT 2021-02-04 14:00:00 170.2 cm WEIGHT 2021-02-04 14:00:00 59.421 kg WEIGHT 2021-02-08 05:00:00 60.51 kg WEIGHT 2021-02-07 04:00:00 59.648 kg HEIGHT 2021-02-04 14:00:00 170.2 cm WEIGHT 2021-02-04 14:00:00 59.421 kg Systolic (mm Hg) 2020-11-01 21:06:00 Micah Escoto Diastolic (mm Hg) 2020-11-01 21:06:00 Mem orial Jevon Heart Rate 2020-11-01 21:06:00 [facility] [place] Respitory Rate 2020-11-01 21:06:00 Memori al Jevon Weight 2020-11-01 21:06:00 [facility] [place] Heart Rate 2018-08-13 22:09:00 [facility] [place] Respitory Rate 2018-08-13 22:09:00 Memori al [place] Systolic (mm Hg) 2018-08-13 22:09:00 Micah rial [place] Diastolic (mm Hg) 2018-08-13 22:09:00 Mem orial Jevon BMI Calculated 2018-08-13 22:09:00 Memori al [place] Height 2018-08-13 22:09:00 160.02 cm [facility] Jevon Weight 2018-08-13 22:09:00 [facility] [place] Systolic (mm Hg) 2016-05-30 16:34:00 Micah rial [place] Diastolic (mm Hg) 2016-05-30 16:34:00 Mem orial [place] Temperature Oral (F) 2016-05-30 16:34:00 97.7 F [facility] [place] Heart Rate 2016-05-30 16:34:00 [facility] [place] Respitory Rate 2016-05-30 16:34:00 Memori al [place] Respitory Rate 2016-05-30 13:20:00 Memori al [place] Heart Rate 2016-05-30 13:20:00 [facility] Jevon Systolic (mm Hg) 2016-05-30 13:20:00 Micah rial Jevon Diastolic (mm Hg) 2016-05-30 13:20:00 Mem orial Jevon Temperature Oral (F) 2016-05-30 13:20:00 97.8 F Memorial Jevon Systolic (mm Hg) 2016-05-30 08:32:00 Micah rial Jevon Diastolic (mm Hg) 2016-05-30 08:32:00 Mem orial [place] Temperature Oral (F) 2016-05-30 08:32:00 98.1 F [facility] [place] Respitory Rate 2016-05-30 08:32:00 Memori al Jevon Heart Rate 2016-05-30 08:32:00 [facility] Jevon BMI Calculated 2016-05-25 07:10:00 Memori al [place] Weight 2016-05-25 07:10:00 [facility] [place] Height 2016-05-25 07:10:00 172.72 cm [facility] Weight 2016-05-25 01:40:00 [facility] BMI Calculated 2016-05-25 01:40:00 Julian Matos Height 2016-05-25 01:40:00 170.18 cm [facility] Procedures Procedure Date / Time Performed Performing Clinician Souremi e Abdominal [facility]ev[facility]ing<sup>1</sup> Bypass / graft of vein [facility] Hernia repair [facility] Plan of Care Planned Activity Planned Date Details Comments Source Future Scheduled 2022-04-10 INFLUENZA VACCINE (#1) [facility] 00:00:00 [code = INFLUENZA Medical Ce nter VACCINE (#1)] Future Scheduled 2022-04-09 HEPATITIS B VACCINES [facility] Test 05:48:19 (1 of 3 - 3-dose series) [code = HEPATITIS B VACCINES (1 of 3 - 3-dose series)] Future Scheduled 2022-04-09 COVID-19 VACCINE (#1) [facility] Hospital Test 05:48:19 [code = COVID-19 VACCINE (#1)] Future Scheduled 2022-04-09 Hepatitis C screening [facility] Hospital Test 05:48:19 (procedure) [code = 005020939] Future Scheduled 2022-04-09 SHINGLES VACCINES (1 Met [facility] Hospital Test 05:48:19 of 2) [code = SHINGLES VACCINES (1 of 2)] Future Scheduled 2022-04-09 65[facility]OCOCCAL [facility] Test 05:48:19 VACCINE (2 - PPSV23 or PCV20) [code = 65+ PNEUMOCOCCAL VACCINE (2 - PPSV23 or PCV20)] Future Scheduled 2022-04-09 INFLUENZA VACCINE Method [facility] Hospital Test 05:48:19 [code = INFLUENZA VACCINE] Future Scheduled 2021-08-[address] [facility] Test 00:00:00 (12+) [code = Medical Center DEPRESSION SCREENING (12+)] Future Scheduled 2021-08-10 FALLS RISK SCREENING [facility] Test 00:00:00 [code = FALLS RISK Medical C enter SCREENING] Future Scheduled 2017-05-26 PNEUMOCOCCAL 65+ [facility] Test 00:00:00 (2 - PPSV23 or PCV20) Medica l Center [code = PNEUMOCOCCAL 65+ YRS (2 - PPSV23 or PCV20)] Future Scheduled 2005-05-[address] [facility] Test 00:00:00 WELLNESS (YEAR 2 or Medical Center FIRST YEAR if no IPPE) [code = MEDICARE ANNUAL WELLNESS (YEAR 2 or FIRST YEAR if no IPPE)] Future Scheduled 1993 SHINGLES VACCINES ([address] [facility] Test 00:00:00 of 2) [code = SHINGLES Medic al Center VACCINES (1 of 2)] Future Scheduled 1962 DTAP/TDAP/TD VACCINES [facility] 00:00:00 (1 - Tdap) [code = Medical C enter DTAP/TDAP/TD VACCINES (1 - Tdap)] Future Scheduled 1961 HEPATITIS C [facility]CRE[facility]ING [facility] 00:00:00 [code = HEPATITIS C Medical Center SCREENING] Future Scheduled 1943 COVID-19 VACCINE (#1) [facility] 00:00:00 [code = COVID-[address] VACCINE (#1)] Encounters Start End Encounter Admission Attending Care Care Encounter Source Date/Time Date/Time Type Type Clinicians Facility Department ID 2022-04-22 Outpatient De La Cruz, STLMLC STLC [id number] Common 14:39:00 Amirah [facility] 2021-11-06 Outpatient De La Cruz, STLMLC STLC [id number] Common 10:49:00 Amirah [facility] 2021-09-10 Outpatient De Lac Ruz, STLMLC STLC [id number] Common 15:06:01 Amirah [facility] 2021-09-04 Outpatient De La Cruz, STLMLC STLC [id number] Common 14:35:45 Amirah [facility] 2021-09-04 Outpatient [place] Cruz, STLMLC STLC [id number] Common 14:12:45 Amirah [facility] 2021-09-04 Outpatient De La Cruz, STLC STLC [id number] Common 13:59:08 Amirah [facility] 2021-09-04 Outpatient De [place] Cruz, STLMLC STLMLC [id number] Common 12:00:29 Amirah [id number] [facility] 2021-09-04 Outpatient De La Cruz, STLMLC STLMLC [id number] Common 11:32:51 Amirah [id number] [facility] 2021-09-04 Outpatient [place] Cruz, STLMLC STLMLC [id number] Common 11:22:19 Amirah 52334 [facility] 2021-09-04 Outpatient [place] Cruz, STLMLC STLMLC [id number] Common 11:21:44 Amirah 27822 [facility] 2021-09-04 Outpatient De La Cruz, STLMLC STLMLC [id number] Common 11:16:53 Amirah 56115 [facility] 2021-09-04 Outpatient [place] Cruz, STLMLC STLMLC [id number] Common 11:06:14 Amirah 52390 [facility] 2021-09-04 Outpatient [place] Cruz, STLMLC STLMLC [id number] Common 11:05:13 Amirah 61312 [facility] 2021-05-19 Inpatient ER COSELLI, [facility] [id number] [facility] 02:44:28 KANDY aparicio 2022-05-06 2022-05-06 (TEL) STLMLC STLMLC [id number] Co mmon 00:00:00 00:00:00 [facility] 2022-04-22 2022-04-22 ambulatory STLMLC STLMLC [id number] Common 00:00:00 00:00:00 [facility] 2022-04-22 2022-04-22 ambulatory STLMLC STLMLC [id number] Common 00:00:00 00:00:00 [facility] 2022-03-13 2022-03-15 Outside nullFlavo MNA [id number] Memoria 14:14:20 04:59:59 Medical r Neurology 04 l Records Enma Escoto 2022-03-13 2022-03-14 Outpatient MHMISCHER MISCHER [id number] 09:14:20 23:59:59 04 2021-12-27 2021-12-27 Ambulatory nullFlavo MNA [id number] Memoria 19:45:00 19:45:00 Pre-Reg r Neurology 15 l Enma Escoto 2021-12-27 2021-12-27 Outpatient MHIE MHIE [id number] Memoria 14:45:00 14:45:00 15 markus Escoto 2021-12-27 2021-12-27 [id number] 14:45:00 14:45:00 James 15 [place] 2021-12-23 2021-12-23 ambulatory STLMLC STLMLC [id number] Common 00:00:00 00:00:00 [facility] 2021-12-23 2021-12-23 ambulatory STLMLC STLMLC [id number] Common 00:00:00 00:00:00 [facility] 2021-11-06 2021-11-06 ambulatory STLMLC STLMLC [id number] Common 00:00:00 00:00:00 [facility] 2021-11-01 2021-11-01 Ambulatory nullFlavo MNA [id number] Memoria 15:00:00 15:00:00 Pre-Reg r Neurology 14 l Enma Escoto 2021-11-01 2021-11-01 Outpatient MHIE [facility]IE [id number] 10:00:00 10:00:00 14 markus Escoto 2021-11-01 2021-11-[address] [facility] [id number] 10:00:00 10:00:00 James 14 [place] 2021-08-23 2021-08-23 ambulatory STLMLC STLMLC [id number] Common 00:00:00 00:00:00 [facility] 2021-08-19 2021-08-19 ambulatory STLMLC STLMLC [id number] Common 00:00:00 00:00:00 [facility] 2021-06-21 2021-06-21 ambulatory STLMLC STLMLC [id number] Common 00:00:00 00:00:00 [facility] 2021-06-17 2021-06-17 ambulatory STLMLC STLMLC [id number] Common 00:00:00 00:00:00 [facility] 2021-03-15 2021-03-15 Outpatient STLMLC STLMLC [id number] Common 00:00:00 00:00:00 [facility] 2021-03-06 2021-03-06 Outpatient STLMLC STLMLC [id number] Common 00:00:00 00:00:00 [facility] 2021-02-19 2021-02-19 Outpatient STLMLC STLMLC [id number] Common 00:00:00 00:00:00 [facility] 2021-02-04 2021-02-04 Outpatient [facility] [id number] [address] [place] [address] 00:00:00 23:59:00 Krystyna Medicin garrett 2021-01-08 2021-01-08 Outpatient STLMLC STLMLC [id number] Common 00:00:00 00:00:00 [facility] 2020-12-05 2020-12-05 Outpatient STLMLC STLMLC [id number] Common 00:00:00 00:00:00 [facility] 2020-11-27 2020-11-29 Outside nullFlavo MNA [id number] Memoria 20:11:31 04:59:59 Medical r Neurology 03 l Records Enma Taiann 2020-11-27 2020-11-28 Outpatient MHMISCHER MHMISCHER [id number] 15:11:31 23:59:59 03 2020-11-01 2020-11-02 Outpatient nullFlavo MNA [id number] Memoria 21:00:00 04:59:59 r Neurology 13 l Enma Escoto 2020-11-01 2020-11-01 Outpatient Earl, MHMISCHER MHMISCHER [id number] 16:00:00 23:59:59 James Indigo Salvador 2020-11-01 2020-11-01 Outpatient MHIE MHIE [id number] Memoria 16:00:00 16:00:00 13 l Jevon 2020-10-29 2020-10-29 Outpatient MHIE MHIE [id number] Memoria 15:15:00 15:15:00 12 markus Escoto 2020-10-23 2020-10-23 Outpatient STLMLC STLMLC [id number] Common 00:00:00 00:00:00 [facility] 2020-10-19 2020-10-19 Outpatient MHIE MHIE [id number] Memoria 13:45:00 13:45:00 11 markus Escoto 2020-10-18 2020-10-18 Ambulatory nullFlavo MNA [id number] Memoria 21:30:00 21:30:00 Pre-Reg r Neurology 11 l Enma Taiann 2020-10-18 2020-10-18 Outpatient Earl, MISCHER MHMISCHER [id number] 15:30:00 15:30:00 James Salvador 2020-10-12 2020-10-12 Ambulatory nullFlavo MNA [id number] Memoria 15:00:00 15:00:00 Pre-Reg r Neurology 10 l Enma [place] 2020-10-12 2020-10-12 Outpatient MHIE MHIE [id number] Memoria 09:00:00 09:00:00 10 markus Escoto 2020-10-12 2020-10-12 [id number] 09:00:00 09:00:00 James Salvador 2020-08-24 2020-08-24 Outpatient MHIE MHIE [id number] Memoria 13:45:00 13:45:00 09 markus [place] 2020-07-03 2020-07-03 Outpatient STLMLC STLMLC [id number] Common 00:00:00 00:00:00 [facility] 2020-06-19 2020-06-19 Ambulatory nullFlavo MNA [id number] Memoria 20:00:00 20:00:00 Pre-Reg r Neurology 07 l [place] Jevon 2020-06-19 2020-06-19 Ambulatory nullFlavo MNA [id number] Memoria 20:00:00 20:00:00 Pre-Reg r Neurology 08 l [place] Hume 2020-06-19 2020-06-19 Outpatient MHIE MHIE [id number] Memoria 14:00:00 14:00:00 08 l [place] 2020-06-19 2020-06-19 Outpatient MHIE MHIE [id number] Memoria 14:00:00 14:00:00 07 markus Jevon 2020-06-19 2020-06-19 Outpatient Earl, MHMISCHER MHMISCHER [id number] 14:00:00 14:00:00 James 07 [place] 2020-06-19 2020-06-19 Outpatient Earl, MHMISCHER MHMISCHER [id number] 14:00:00 14:00:00 James 08 [place] 2020-06-07 2020-06-07 Outpatient STLMLC STLMLC [id number] Common 00:00:00 00:00:00 [facility] 2020-05-30 2020-05-30 Outpatient STLMLC STLMLC [id number] Common 00:00:00 00:00:00 [facility] 2020-03-05 2020-03-05 [facility] [id number] Common 13:30:00 13:30:[address] [facility] 2020-01-26 2020-01-26 Out[facility] [id number] Common 11:08:00 11:08:[address] [facility] 2019-12-27 2019-12-27 Outpatient [facility] [id number] Common 14:45:00 14:45:[address] [facility] 2019-12-15 2019-12-16 Outpatient nullFlavo MNA [id number] Memoria 15:45:00 04:59:59 r Neurology 06 l Enma Escoto 2019-12-15 2019-12-15 Outpatient Earl, MHMISCHER MHMISCHER [id number] 10:45:00 23:59:59 James [place] 2019-12-15 2019-12-15 Outpatient MHIE MHIE [id number] Memoria 10:45:00 10:45:00 06 markus Escoto 2019-11-15 2019-11-15 Ambulatory nullFlavo MNA [id number] Memoria 14:15:00 14:15:00 Pre-Reg r Neurology 05 l Enma Escoto 2019-11-15 2019-11-15 Outpatient MHIE MHIE [id number] Memoria 09:15:00 09:15:00 05 l Jevon 2019-11-15 2019-11-15 Outpatient NELLY ElliottMISCHER MISCHER [id number] 09:15:00 09:15:00 James 05 [place] 2019-09-16 2019-09-16 [facility] [id number] Common 14:58:00 14:58:[address] [facility] 2019-09-14 2019-09-14 Out[facility] [id number] Common 14:45:00 14:45:[address] [facility] 2019-08-31 2019-08-31 Ambulatory nullFlavo MNA [id number] Memoria 19:45:00 19:45:00 Pre-Reg r Neurology 04 l Enma [place] 2019-08-31 2019-08-31 Outpatient MHIE MHIE [id number] Memoria 13:45:00 13:45:00 04 l [place] 2019-08-31 2019-08-31 [id number] 13:45:00 13:45:00 James 04 [place] 2019-08-19 2019-08-19 Out[facility] [id number] Common 14:49:00 14:49:[address] [facility] 2019-07-20 2019-07-20 Out[facility] [id number] Common 15:09:00 15:09:[address] [facility] 2019-06-30 2019-06-30 Out[facility] [id number] Common 08:49:00 08:49:[address] [facility] 2019-06-27 2019-06-27 Out[facility] [id number] Common 15:00:00 15:00:[address] [facility] 2019-06-08 2019-06-17 Inpatient [facility] [id number] [place] [address] 00:00:00 00:00:[address] 2019-05-13 2019-05-13 Ambulatory nullFlavo MNA [id number] Memoria 20:00:00 20:00:00 Pre-Reg r Neurology 03 l Enma Escoto 2019-05-13 2019-05-13 Outpatient MHIE MHIE [id number] Memoria 15:00:00 15:00:00 03 markus Jevon 2019-05-13 2019-05-13 [facility] [id number] 15:00:00 15:00:00 James Ariel Salvador 2019-03-15 2019-03-15 [facility] [id number] Common 16:15:00 16:15:[address] [facility] 2019-02-22 2019-02-22 Outpatient [facility] [id number] Common 10:56:00 10:56:[address] [facility] 2019-01-21 2019-01-21 Outpatient [facility] [id number] Common 16:26:00 16:26:[address] [facility] 2018-12-07 2018-12-07 Out[facility] [id number] Common 14:15:00 14:15:00 t Specialty/U Sp [place] Specialty rology - [facility] 2018-12-01 2018-12-01 Out[facility] [id number] Common 14:15:00 14:15:[address] [facility] 2018-11-10 2018-11-10 Out[facility] [id number] Common 15:15:00 15:15:[address] [facility] 2018-08-17 2018-08-19 Phone nullFlavo MNA [id number] Memoria 21:18:00 05:59:59 Message r Neurology 02 l Enma Escoto 2018-08-17 2018-08-18 Outpatient M[facility] M[facility] [id number] 15:18:00 23:59:59 02 2018-08-13 2018-08-14 Outpatient nullFlavo MNA [id number] Memoria 21:45:00 05:59:59 r Neurology 02 l Enma Escoto 2018-08-13 2018-08-13 [id number] 15:45:00 23:59:59 James Александр Salvador 2018-08-13 2018-08-13 Outpatient MHIE MHIE [id number] Memoria 15:45:00 15:45:00 02 markus Jevon 2018-08-12 2018-08-12 [facility] [id number] Common 16:00:00 16:00:[address] [facility] 2018-05-19 2018-05-19 [facility] [id number] Common 08:50:00 08:50:[address] [facility] 2018-05-11 2018-05-11 [facility] [id number] Common 09:14:00 09:14:[address] [facility] 2018-04-15 2018-04-15 Outpatient ALEJANDRO, SLE SLEH [id number] SLEH 00:00:00 00:00:00 KYLIE 2018-04-07 2018-04-07 [facility] 14 [id number] Common 15:15:00 15:15:[address] [facility] 2018-04-05 2018-04-05 [facility] 15 [id number] Common 10:00:00 10:00:[address] [facility] 2018-03-31 2018-03-31 [facility] 15 [id number] Common 09:00:00 09:00:[address] [facility] 2018-03-23 2018-03-23 [facility] 15 [id number] Common 09:00:00 09:00:[address] [facility] 2018-03-04 2018-03-04 [facility] 14 [id number] Common 16:21:00 16:21:[address] [facility] 2018-02-24 2018-02-24 [facility] 14 [id number] Common 16:02:00 16:02:[address] [facility] 2018-02-24 2018-02-24 [facility] 14 [id number] Common 14:30:00 14:30:[address] [facility] 2018-02-15 2018-02-15 [facility] 14 [id number] Common 16:32:00 16:32:[address] [facility] 2018-01-01 2018-01-01 [facility] 14 [id number] Common 10:03:00 10:03:[address] [facility] 2017-12-30 2017-12-30 [facility] 14 [id number] Common 16:56:00 16:56:[address] [facility] 2017-12-30 2017-12-30 [facility] 13 [id number] Common 14:30:00 14:30:[address] [facility] 2017-12-24 2017-12-24 [facility] 14 [id number] Common 09:12:00 09:12:[address] [facility] 2017-12-22 2017-12-22 [facility] 13 [id number] Common 08:18:00 08:18:[address] [facility] 2017-12-10 2017-12-10 [facility] 13 [id number] Common 13:37:00 13:37:[address] [facility] 2017-12-03 2017-12-03 [facility] 13 [id number] Common 15:29:00 15:29:[address] [facility] 2017-12-01 2017-12-01 [facility] 13 [id number] Common 10:54:00 10:54:[address] [facility] 2017-11-13 2017-11-13 [facility] 13 [id number] Common 12:22:00 12:22:[address] [facility] 2017-11-13 2017-11-13 [facility] 13 [id number] Common 09:51:00 09:51:[address] [facility] 2017-11-10 2017-11-10 [facility] 13 [id number] Common 15:34:00 15:34:[address] [facility] 2017-11-04 2017-11-04 [facility] 13 [id number] Common 15:30:00 15:30:[address] [facility] 2016-07-24 2016-07-24 Outpatient [facility] IE [id number] Memoria 13:00:00 13:00:00 01 [facility] 2016-06-12 2016-06-12 Outpatient [facility] [id number] Memoria 13:30:00 13:30:00 00 [facility] 2016-05-25 2016-05-30 Inpatient [facility] [id number] Memoria 01:36:00 16:59:00 fernanda Escoto 67 [facility] 2016-05-24 2016-05-30 Outpatient [facility] [id number] 20:36:00 11:59:00 Abraham Reid 67 Results Test Description Test Time Test Comments Results Result Comments Source APTT 2021-02-08 04:55:00 Test Item Value Reference Range Interpretation Comme nts PARTIAL THROMBOPLASTIN TIME (BEAKER) (test code = 760) 28.5 seconds 22.5-36.0 PROTHROMBIN TIME/[id number] 04:54:00 Test Item Value Reference Range Interpretation Comments PROTIME (BEAKER) 13.8 seconds 11.9-14.2 (test code = 759) INR (BEAKER) (test 1.08 See_Comment [Automat ed message] code = 370) The system SocialTagg generated this result transmitted ref erence range: <=5.90. The reference range was not used to int erpret this result as normal/abnormal . RECOMMENDED COUMADIN/WARFARIN INR THERAPY RANGESSTANDARD DOSE: 2.0 - 3.0 Includes: PROPHYLAXIS for venous thrombosis, systemic embolization; TREATMENT for venous thrombosis and/or pulmonary embolus.HIGH RISK: Target INR is 2.5-3.5 for patients with mechanical heart valves.CBC (HEMOGRAM ONLY)2021-02-08 04:33:00 Test Item Value Reference [...] (BEAKER) (test code = 413) U/S, ABDOMINAL, [id number] 04:13:00Reason for exam:->H/O ABDOMINAL AORTIC ANEURYSMShould this be performed at the bedside?->No [facility] 1945 Sex: MFINAL REPORT INDICATION: H/O ABDOMINAL AORTIC ANEURYSM COMPARISON: None TECHNIQUE: Real-time chapman-scale transabdominal and color and spectral Doppler ultrasound. FINDINGS:Liver: Size: 16.3cm. Echogenicity: Normal. Masses/lesions: None. Surface Nodularity: None. Intrahepatic bile ducts: Normal. Common bile duct: 0.6cm. MPV: 1.3cm. Gallbladder: Surgically absent. Pancreas: Head and unci angela process: Not well-seen secondary to poor acoustic windowing.. Body and tail: Not well-seen. Spleen: Size: 11.0cm. Echogenicity: Multiple calcified granulomas [...] 2.5 x 3.5 cm.The mid abdominal aorta measures3.6 x 4.3 cm.The distal abdominal aorta measures 2.7 x 3.4 cm. The right common iliac artery measures 2.0 x 2.5 cm.The left common iliac artery measures 1.8 x 2.7 cm. Additional findings: None. 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 Signed: Blanka Cleveland Verified Date/Time: 02/08/2021 04:13:46 [id number] 21:17:00 Test Item Value Reference Range Interpretation Comments PARTIAL THROMBOPLASTIN TIME 28.6 seconds 22.5-36.0 (BEAKER) (test code = 760) HEPATIC FUNCTION [id number] 12:57:00 Test Item Value Reference Range Interpretation [...] (test code = 7 U/L 6-55 347) Veterans' Coordinator ID - PIAYA [id number] 12:51:00 Test Item Value Reference Range Interpretation Comments PARTIAL THROMBOPLASTIN TIME 56.0 seconds 22.5-36.0 H (BEAKER) (test code = 760) BASIC METABOLIC [id number] 06:12:00 Test Item Value Reference Range Interpretation [...] S NOT APPLICABLE FOR DIALYSIS PATIEN TS. Veterans' Coordinator ID - PIAYA [id number] 05:39:00 Test Item Value Reference Range Interpretation [...] WBC 0-0 (BEAKER) (test code = 413) [id number] 00:37:00 Test Item Value Reference Range Interpretation Comments PARTIAL THROMBOPLASTIN TIME 139.7 seconds 22.5-36.0 H (BEAKER) (test code = 760) [id number] 17:29:00 Test Item Value Reference Range Interpretation Comments PARTIAL THROMBOPLASTIN TIME 39.7 seconds 22.5-36.0 H (BEAKER) (test code = 760) HEMOGLOBIN [id number] 14:06:00 Test Item Value Reference Range Interpretation Comments HEMOGLOBIN A1C (BEAKER) (test code = 5.1 % 4.3-6.1 368) [id number] 12:57:00 Test Item Value Reference Range Interpretation Comments PARTIAL THROMBOPLASTIN TIME 197.1 seconds 22.5-36.0 HH (BEAKER) (test code = 760) LIPID [id number] 09:02:00 Test Item Value Reference Range Interpretation Comments TRIGLYCERIDES (BEAKER) (test code = 117 mg/dL 540) CHOLESTEROL (BEAKER) (test code = 284 mg/dL 631) HDL CHOLESTEROL (BEAKER) (test code 53 mg/dL = 976) LDL CHOLESTEROL CALCULATED (BEAKER) 208 mg/dL (test code = 633) Triglyceride Reference Range: Low Risk <150 Borderline 150-199 High Risk 200- 499 Very High Risk >=500Cholesterol Reference Range: Low Risk <200 Borderline 200-239 High Risk >240HDL Cholesterol Reference Range: Low Risk >=60 High Risk <40LDL Cholesterol Reference Range: Optimal <100 Near Optimal 100-129 Borderline 130-159 High 160-189 Very High >=190 Veterans' Coordinator OLVIN FRANCOANASTASIA [id number] 05:12:00 Test Item Value Reference Range Interpretation Comments PARTIAL THROMBOPLASTIN TIME 82.1 seconds 22.5-36.0 H (BEAKER) (test code = 760) BASIC METABOLIC [id number] 05:12:00 Test Item Value Reference Range Interpretation [...] S NOT APPLICABLE FOR DIALYSIS PATIEN TS. Veterans' Coordinator ID - RAFAL MCBC (HEMOGRAM ONLY)2021-02-06 04:47:00 [...] WBC 0-0 (BEAKER) (test code = 413) [id number] 00:11:00 Test Item Value Reference Range Interpretation Comments PARTIAL THROMBOPLASTIN TIME > seconds 22.5-36.0 HH (BEAKER) (test code = 760) PROTHROMBIN TIME/[id number] 17:36:00 Test Item Value Reference Range Interpretation Comments PROTIME (BEAKER) 18.5 seconds 11.9-14.2 H (test code = 759) INR (BEAKER) (test 1.57 See_Comment [Automat ed message] code = 370) The system [employer] generated this result transmitted ref erence range: <=5.90. The reference range was not used to int erpret this result as normal/abnormal . RECOMMENDED COUMADIN/WARFARIN INR THERAPY RANGESSTANDARD DOSE: 2.0 - 3.0 Includes: PROPHYLAXIS for venous thrombosis, systemic embolization; TREATMENT for venous thrombosis and/or pulmonary embolus.HIGH RISK: Target INR is 2.5-3.5 for patients with mechanical heart valves.[id number] 16:49:00 Test Item Value Reference Range Interpretation Comments PARTIAL THROMBOPLASTIN TIME 58.8 seconds 22.5-36.0 H (BEAKER) (test code = 760) [id number] 16:06:00 Test Item Value Reference Range Interpretation Comments PARTIAL THROMBOPLASTIN TIME 120.3 seconds 22.5-36.0 H (BEAKER) (test code = 760) PROTHROMBIN TIME/[id number] 15:54:00 Test Item Value Reference Range Interpretation Comments PROTIME (BEAKER) 17.4 seconds 11.9-14.2 H (test code = 759) INR (BEAKER) (test 1.45 See_Comment [Automat ed message] code = 370) The system [employer] generated this result transmitted ref erence range: <=5.90. The reference range was not used to int erpret this result as normal/abnormal . RECOMMENDED COUMADIN/WARFARIN INR THERAPY RANGESSTANDARD DOSE: 2.0 - 3.0 Includes: PROPHYLAXIS for venous thrombosis, systemic embolization; TREATMENT for venous thrombosis and/or pulmonary embolus.HIGH RISK: Target INR is 2.5-3.5 for patients with mechanical heart valves.[id number] 13:49:00 Test Item Value Reference Range Interpretation Comments PARTIAL THROMBOPLASTIN TIME > seconds 22.5-36.0 HH (BEAKER) (test code = 760) [id number] 12:37:00 Test Item Value Reference Range Interpretation Comments PARTIAL THROMBOPLASTIN TIME > seconds 22.5-36.0 HH (BEAKER) (test code = 760) BASIC METABOLIC [id number] 05:20:00 Test Item Value Reference Range Interpretation [...] S NOT APPLICABLE FOR DIALYSIS PATIEN TS. Veterans' Coordinator ID - PIAYA [id number] 05:02:00 Test Item Value Reference Range Interpretation [...] WBC 0-0 (BEAKER) (test code = 413) SARS-COV2/RT-PCR ([facility])2021-02-04 23:58:00 Test Item Value Reference Range Interpretation Comments SARS-COV2/RT-PCR (test Negative Not Detected, Negative, code = 8303168) See external report for linked test SARS-COV-2 PERFORMING LAB [facility] (test code = 3360652) Negative result for this test determines that [...] individuals suspected of COVID-19 by their healthcare provider.This test [...] justifying the authorization of the emergency use ofin vitro diagnostic tests for detection and/or diagnosis of COVID-19 is terminated under Section 564(b)(2) of the Act or the EUA is revoked under Section 564(g) of the Act.Fact Sheet for Healthcare Prov iders:https://www.[employer]/sites/default/files/product/documents/Fact_Sheet_HC _Dijzlfjtx_Ucak_LLMG-AbI-8.pdfFact Sheet for Healthcare Patients:https://www.[employer]/sites/default/files/product/docume nts/Pyvd_Ysflt_Yavoyxhk_Atua_JMLM-HeC-0.pdfPerforming Laboratory:[facility], [place] [id number] 23:24:00 Test Item Value Reference Range Interpretation Comments PARTIAL THROMBOPLASTIN TIME 68.5 seconds 22.5-36.0 H (BEAKER) (test code = 760) PROTHROMBIN TIME/[id number] 13:54:00 Test Item Value Reference Range Interpretation Comments PROTIME (BEAKER) 15.9 seconds 11.9-14.2 H (test code = 759) INR (BEAKER) (test 1.29 See_Comment [Automat ed message] code = 370) The system [employer] generated this result transmitted ref erence range: <=5.90. The reference range was not used to int erpret this result as normal/abnormal . RECOMMENDED COUMADIN/WARFARIN INR THERAPY RANGESSTANDARD DOSE: 2.0 - 3.0 Includes: PROPHYLAXIS for venous thrombosis, systemic embolization; TREATMENT for venous thrombosis and/or pulmonary embolus.HIGH RISK: Target INR is 2.5-3.5 for patients with mechanical heart valves.BASIC METABOLIC [id number] 13:51:00 Test Item Value Reference Range Interpretation [...] S NOT APPLICABLE FOR DIALYSIS PATIEN TS. Veterans' Coordinator ID - [id number] 13:50:00 Test Item Value Reference Range Interpretation Comments PARTIAL THROMBOPLASTIN TIME 32.8 seconds 22.5-36.0 (BEAKER) (test code = 760) RAD, CHEST, 1 VIEW, NON [id number] 13:47:00Reason for exam:->Post-opShould this be performed at the bedside?->Yes [facility] 1945 Sex: MFINAL REPORT RAD, CHEST, 1 VIEW, NON DEPT INDICATION: Post-op COMPARISON: February 02, 2018 FINDINGS: Portable frontal view of the chest. IMPRESSION: Support Lines: None Lungs and pleura: No consolidation or effusion. No pneumothorax.Heart and mediastinum: Stable contours. Stable valvularsurgical changes.Additional findings: None. Signed: JR Diya, Didi Navarro Verified Date/Time: 02/04/2021 13:47:39 Reading Location: [facility] Radiology Reading Room [id number] 13:46:00 Test Item Value Reference Range Interpretation Comments MAGNESIUM (BEAKER) (test code = 1.8 mg/dL 1.6-2.6 627) Veterans' Coordinator ID - [id number] 13:46:00 Test Item Value Reference Range Interpretation Comments PHOSPHORUS (BEAKER) (test code = 3.5 mg/dL 2.3-4.7 604) Veterans' Coordinator ID - AAHAMIDCBC W/PLT COUNT & AUTO [id number] 13:29:00 Test Item Value Reference Range Interpretation [...] (test code = 2801) AFB CULTURE + [id number] 20:50:00 Test Item Value Reference Range Interpretation Comments CULTURE (BEAKER) (test No acid-fast bacilli code = 1095) isolated in 42 days AFB SMEAR (BEAKER) No acid fast bacilli (test code = 994) seen AFB CULTURE + [id number] 20:50:00 Test Item Value Reference Range Interpretation Comments CULTURE (BEAKER) (test No acid-fast bacilli code = 1095) isolated in 42 days AFB SMEAR (BEAKER) No acid fast bacilli (test code = 994) seen FUNGUS CULTURE + [id number] 10:14:00 Test Item Value Reference Range Interpretation Comments CULTURE (BEAKER) (test No fungus isolated in code = 1095) 28 days FUNGUS SMEAR (BEAKER) No fungi seen (test code = 1406) FUNGUS CULTURE + [id number] 10:14:00 Test Item Value Reference Range Interpretation Comments CULTURE (BEAKER) (test No fungus isolated in code = 1095) 28 days FUNGUS SMEAR (BEAKER) No fungi seen (test code = 1406) VANCOMYCIN LEVEL, [id number] 05:33:00 Test Item Value Reference Range Interpretation Comments VANCOMYCIN RANDOM (BEAKER) (test 16.9 ug/mL code = 523) Reference Range: No NormalsBASIC METABOLIC [id number] 05:29:00 Test Item Value Reference Range Interpretation [...] NOT APPLICABLE FOR DIALYSIS PATIEN TS. PROTHROMBIN TIME/[id number] 05:21:00 Test Item Value Reference Range Interpretation Comments PROTIME (BEAKER) (test code = 25.0 seconds 11.7-14.7 H 759) INR (BEAKER) (test code = 370) 2.3 <=5.9 RECOMMENDED COUMADIN/WARFARIN INR THERAPY RANGESSTANDARD DOSE: 2.0 - 3.0 Includes: PROPHYLAXIS for venous thrombosis, systemic embolization; TREATMENT for venous thrombosis and/or pulmonary embolus.HIGH RISK: Target INR is 2.5-3.5 for patients with mechanical heart valves.While on warfarin.BASIC METABOLIC [id number] 16:35:00 Test Item Value Reference Range Interpretation [...] NOT APPLICABLE FOR DIALYSIS PATIEN TS. ANAEROBIC [id number] 08:59:00 Test Item Value Reference Range Interpretation Comments CULTURE (BEAKER) (test No anaerobes isolated code = 1095) ANAEROBIC [id number] 08:58:00 Test Item Value Reference Range Interpretation Comments CULTURE (BEAKER) (test No anaerobes isolated code = 1095) VANCOMYCIN LEVEL, [id number] 05:18:00 Test Item Value Reference Range Interpretation Comments VANCOMYCIN RANDOM (BEAKER) (test 19.8 ug/mL code = 523) Reference Range: No NormalsPROTHROMBIN TIME/[id number] 04:55:00 Test Item Value Reference Range Interpretation Comments PROTIME (BEAKER) (test code = 23.5 seconds 11.7-14.7 H 759) INR (BEAKER) (test code = 370) 2.1 <=5.9 RECOMMENDED COUMADIN/WARFARIN INR THERAPY RANGESSTANDARD DOSE: 2.0 - 3.0 Includes: PROPHYLAXIS for venous thrombosis, systemic embolization; TREATMENT for venous thrombosis and/or pulmonary embolus.HIGH RISK: Target INR is 2.5-3.5 for patients with mechanical heart valves.While on warfarin.VANCOMYCIN LEVEL, [id number] 18:17:00 Test Item Value Reference Range Interpretation Comments VANCOMYCIN TROUGH (BEAKER) (test 25.2 ug/mL 10.0-20.0 H code = 522) BASIC METABOLIC [id number] 15:13:00 Test Item Value Reference Range Interpretation [...] NOT APPLICABLE FOR DIALYSIS PATIEN TS. PROTHROMBIN TIME/[id number] 06:16:00 Test Item Value Reference Range Interpretation [...] heart valves.While on warfarin.LACTIC ACID, VENOUS, WHOLE [id number] 06:09:00 Test Item Value Reference Range Interpretation Comments LACTATE BLOOD VENOUS (2) (BEAKER) 0.6 mmol/L 0.5-2.2 (test code = 2872) Effective 12/12/2015: Units/Reference Range ChangeNew: 0.5-2.2 mmol/L Previous: 5- 20 mg/dLTISSUE [id number] 11:35:00Surgical Pathology Report Case: [id number] Authorizing Provider: Kylie Parker MD Collected: 03/23/2018 1136 Ordering Location: [facility] Received: 03/23/2018 1158 PERIOPERATIVE SERVICESPathologist: Lanie Jaquez MD Specimen: Groin, Right, Right Groin Tissue SOFT TISSUE, RIGHT GROIN, DEBRIDEMENT: - FIBROADIPOSE TISSUE WITH FAT NECROSIS, ACUTE AND CHRONIC INFLAMMATION, AND FOREIGN BODY GIANT CELL REACTION Signing Pathologist Direct Phone Line: [phone] signed by Lanie Jaquez MD on 03/26/2018 at 11:35 [id number] groin tissueThe specimen is received in a formalin-filled container and labeled with the patient's information and labeled "right groin tissue" andconsists of a segment of rodríguez- chapman hemorrhagic soft tissue measuring 3 x 1.6 x 0.5 cm. Representativesections are submitted A1.CG/pl Performed.SURGICALLY OBTAINED CULTURE + GRAM STAIN 2018-03-26 09:47:00 Test Item Value Reference Range Interpretation Comments GRAM STAIN RESULT (BEAKER) <1+ WBCs (test code = 1123) GRAM STAIN RESULT (BEAKER) No organisms seen (test code = 74903) SURGICALLY OBTAINED CULTURE + GRAM [id number] 09:45:00 Test Item Value Reference Interpretation Comments [...] No organisms seen (BEAKER) (test code = 761939) BASIC METABOLIC [id number] 05:17:00 Test Item Value Reference Range Interpretation [...] NOT APPLICABLE FOR DIALYSIS PATIEN TS. PROTHROMBIN TIME/[id number] 05:06:00 Test Item Value Reference Range Interpretation Comments PROTIME (BEAKER) (test code = 21.9 seconds 11.7-14.7 H 759) INR (BEAKER) (test code = 370) 1.9 <=5.9 RECOMMENDED COUMADIN/WARFARIN INR THERAPY RANGESSTANDARD DOSE: 2.0 - 3.0 Includes: PROPHYLAXIS for venous thrombosis, systemic embolization; TREATMENT for venous thrombosis and/or pulmonary embolus.HIGH RISK: Target INR is 2.5-3.5 for patients with mechanical heart valves.While on warfarin.BASIC METABOLIC [id number] 07:04:00 Test Item Value Reference Range Interpretation [...] NOT APPLICABLE FOR DIALYSIS PATIEN TS. PROTHROMBIN TIME/[id number] 06:28:00 Test Item Value Reference Range Interpretation [...] valves.While on warfarin.CBC W/PLT COUNT & AUTO [id number] 06:18:00 Test Item Value Reference Range Interpretation [...] (BEAKER) (test code = 2801) VANCOMYCIN LEVEL, [id number] 17:22:00 Test Item Value Reference Range Interpretation Comments VANCOMYCIN TROUGH (BEAKER) (test 14.6 ug/mL 10.0-20.0 code = 522) SPIN/CONCENTRATION [id number] 10:53:00 Test Item Value Reference Range Interpretation Comments CONCENTRATION CHARGED (BEAKER) (test Done code = 7077) BASIC METABOLIC [id number] 07:34:00 Test Item Value Reference Range Interpretation [...] NOT APPLICABLE FOR DIALYSIS PATIEN TS. PROTHROMBIN [id number] 07:05:00 Test Item Value Reference Range Interpretation [...] mechanical heart valves.CBC W/PLT COUNT & AUTO [id number] 06:55:00 Test Item Value Reference Range Interpretation [...] (BEAKER) (test code = 2801) BASIC METABOLIC [id number] 06:54:00 Test Item Value Reference Range Interpretation [...] NOT APPLICABLE FOR DIALYSIS PATIEN TS. PROTHROMBIN TIME/[id number] 05:47:00 Test Item Value Reference Range Interpretation [...] mechanical heart valves.CBC W/PLT COUNT & AUTO [id number] 05:35:00 Test Item Value Reference Range Interpretation [...] PERCENT (BEAKER) (test code = 2801) TISSUE [id number] 16:28:00Surgical Pathology Report Case: [id number] Authorizing Provider: Nando Hdz MD Collected: 02/02/20181941 Ordering Location: [facility] Received: 02/03/201813 Pathologist: Sidney Wright MD Specimen: Plaque ARTERY, RIGHT EMERALD, ENDARTERECTOMY:CALCIFIC ATHEROSCLEROTIC PLAQUE WITH EROSION AND ATTACHED ORGANIZING THROMBUS Signing Pathologist Direct Phone Line: [phone]; [id number] femoral artery plaqueRight femoral artery plaqueThe specimen is received in a formalin-filled container and labeled with the patient's information and labeled "right femoral artery plaque and consists of two calcified fragments of tissue both measuring 2 cm in length ranging in diameter from 0.6 to 1 cm and separate segment of hemorrhagic calcified tissue measuring 2.5 x 1.5 x 1 cm in aggregate. Blockmason sections are submitted A1 for decalcification. CG/pl [id number] 06:08:00 Test Item Value Reference Range Interpretation Comments PHOSPHORUS (BEAKER) (test code = 2.2 mg/dL 2.3-4.7 L 604) [id number] 06:08:00 Test Item Value Reference Range Interpretation Comments MAGNESIUM (BEAKER) (test code = 2.1 mg/dL 1.6-2.6 627) BASIC METABOLIC [id number] 06:08:00 Test Item Value Reference Range Interpretation [...] (BEAKER) (test code = 413) HEMOGLOBIN AND [id number] 11:55:00 Test Item Value Reference Range Interpretation Comments HEMOGLOBIN (BEAKER) (test code = 8.4 GM/DL 13.7-17.5 L 410) HEMATOCRIT (BEAKER) (test code = 28.9 % 40.1-51.0 L 411) [id number] 04:57:00 Test Item Value Reference Range Interpretation Comments PHOSPHORUS (BEAKER) (test code = 2.5 mg/dL 2.3-4.7 604) [id number] 04:57:00 Test Item Value Reference Range Interpretation Comments MAGNESIUM (BEAKER) (test code = 1.7 mg/dL 1.6-2.6 627) BASIC METABOLIC [id number] 04:57:00 Test Item Value Reference Range Interpretation [...] = 413) CBC W/PLT COUNT & AUTO [id number] 15:56:00 Test Item Value Reference Range Interpretation [...] (BEAKER) (test code = 2801) COMPREHENSIVE METABOLIC [id number] 05:49:00 Test Item Value Reference Range Interpretation [...] S NOT APPLICABLE FOR DIALYSIS PATIEN TS. [id number] 05:48:00 Test Item Value Reference Range Interpretation Comments PHOSPHORUS (BEAKER) (test code = 2.9 mg/dL 2.3-4.7 604) [id number] 05:48:00 Test Item Value Reference Range Interpretation Comments MAGNESIUM (BEAKER) (test code = 1.7 mg/dL 1.6-2.6 627) CBC W/PLT COUNT & AUTO [id number] 04:20:00 Test Item Value Reference Range Interpretation [...] (BEAKER) (test code = 2801) VANCOMYCIN LEVEL, [id number] 23:58:00 Test Item Value Reference Range Interpretation Comments VANCOMYCIN TROUGH (BEAKER) (test code < ug/mL 10.0-20.0 L = 522) PROTHROMBIN [id number] 23:27:00 Test Item Value Reference Range Interpretation Comments PROTIME (BEAKER) (test code = 15.6 seconds 11.7-14.7 H 759) INR (BEAKER) (test code = 370) 1.2 <=5.9 RECOMMENDED COUMADIN/WARFARIN INR THERAPY RANGESSTANDARD DOSE: 2.0 - 3.0 Includes: PROPHYLAXIS for venous thrombosis, systemic embolization; TREATMENT for venous thrombosis and/or pulmonary embolus.HIGH RISK: Target INR is 2.5-3.5 for patients with mechanical heart valves.[id number] 23:27:00 Test Item Value Reference Range Interpretation Comments FIBRINOGEN LEVEL (BEAKER) (test 276 mg/dl 225-434 code = 658) [id number] 23:27:00 Test Item Value Reference Range Interpretation Comments PARTIAL THROMBOPLASTIN TIME 29.8 seconds 22.5-36.0 (BEAKER) (test code = 760) CBC W/PLT COUNT & AUTO [id number] 23:22:00 Test Item Value Reference Range Interpretation [...] 0-1 PERCENT (BEAKER) (test code = 2801) [id number] 23:21:00 Test Item Value Reference Range Interpretation Comments PHOSPHORUS (BEAKER) (test code = 3.1 mg/dL 2.3-4.7 604) [id number] 23:21:00 Test Item Value Reference Range Interpretation Comments MAGNESIUM (BEAKER) (test code = 1.7 mg/dL 1.6-2.6 627) BASIC METABOLIC [id number] 23:21:00 Test Item Value Reference Range Interpretation [...] APPLICABLE FOR DIALYSIS PATIEN TS. HEPATIC FUNCTION [id number] 23:21:00 Test Item Value Reference Range Interpretation [...] U/L 6-55 347) LACTIC ACID, ARTERIAL, WHOLE [id number] 23:15:00 Test Item Value Reference Range Interpretation Comments LACTATE BLOOD ARTERIAL (2) 1.7 mmol/L 0.5-2.2 (BEAKER) (test code = 2874) Effective 12/12/2015: Units/Reference Range ChangeNew: 0.5-2.2 mmol/L Previous: 5- 20 mg/dLRAD, CHEST, 1 VIEW, NON [id number] 23:12:00Reason for exam:->s/p cardiac surgeryShould this be performed at the [...] MDReport Verified Date/Time: 02/02/2018 23:12:37 Reading Location: [address] Consult Reading Room HEMOGLOBIN AND [id number] 23:06:00 Test Item Value Reference Range Interpretation Comments HEMOGLOBIN (BEAKER) (test code = 11.3 GM/DL 13.7-17.5 L 410) HEMATOCRIT (BEAKER) (test code = 37.7 % 40.1-51.0 L 411) CALCIUM, [id number] 22:57:00 Test Item Value Reference Range Interpretation Comments CALCIUM IONIZED (BEAKER) (test 1.02 mmol/L 1.12-1.27 L code = 698) PH, BLOOD (BEAKER) (test code = 7.38 1810) OXYGEN SATURATION, [id number] 22:56:00 Test Item Value Reference Range Interpretation Comments O2 SATURATION (MEASURED) (BEAKER) 72.2 % (test code = 1455) PROTHROMBIN [id number] 19:20:00 Test Item Value Reference Range Interpretation Comments PROTIME (BEAKER) (test code = 17.6 seconds 11.7-14.7 H 759) INR (BEAKER) (test code = 370) 1.5 <=5.9 RECOMMENDED COUMADIN/WARFARIN INR THERAPY RANGESSTANDARD DOSE: 2.0 - 3.0 Includes: PROPHYLAXIS for venous thrombosis, systemic embolization; TREATMENT for venous thrombosis and/or pulmonary embolus.HIGH RISK: Target INR is 2.5-3.5 for patients with mechanical heart valves.[id number] 19:20:00 Test Item Value Reference Range Interpretation Comments FIBRINOGEN LEVEL (BEAKER) (test 240 mg/dl 225-434 code = 658) [id number] 19:20:00 Test Item Value Reference Range Interpretation Comments PARTIAL THROMBOPLASTIN TIME 33.3 seconds 22.5-36.0 (BEAKER) (test code = 760) PLATELET [id number] 19:00:00 Test Item Value Reference Range Interpretation Comments PLATELET COUNT (BEAKER) (test 149 K/CU MM 150-450 L code = 756) POTASSIUM-STAT [id number] 18:54:00 Test Item Value Reference Range Interpretation Comments POTASSIUM (BEAKER) (test code = 4.2 meq/L 3.6-5.5 379) HEMOGLOBIN-STAT [id number] 18:54:00 Test Item Value Reference Range Interpretation Comments HEMOGLOBIN (BEAKER) (test code = 9.9 g/dL 13.0-16.8 L 410) HEMATOCRIT-STAT [id number] 18:54:00 Test Item Value Reference Range Interpretation Comments HEMATOCRIT (BEAKER) (test code = 411) 29.0 % 40.0-50.0 L BLOOD GAS, [id number] 18:54:00 Test Item Value Reference Range Interpretation [...] C (test code = 1818) SODIUM NA-STAT [id number] 18:54:00 Test Item Value Reference Range Interpretation Comments SODIUM (BEAKER) (test code = 381) 133 meq/L 135-148 L GLUCOSE-STAT [id number] 18:54:00 Test Item Value Reference Range Interpretation Comments GLUCOSE RANDOM (BEAKER) (test code 134 mg/dL 70-110 H = 652) HGB/HCT (H&H) - STAT [id number] 18:54:00 Test Item Value Reference Range Interpretation Comments HEMOGLOBIN (BEAKER) (test code = 9.9 GM/DL 13.0-16.8 L 410) HEMATOCRIT (BEAKER) (test code = 29.0 % 40.0-50.0 L 411) CALCIUM, [id number] 18:54:00 Test Item Value Reference Range Interpretation Comments CALCIUM IONIZED (BEAKER) (test 1.03 mmol/L 1.12-1.27 L code = 698) PH, BLOOD (BEAKER) (test code = 7.37 1810) CALCIUM, [id number] 18:13:00 Test Item Value Reference Range Interpretation Comments CALCIUM IONIZED (BEAKER) (test 1.02 mmol/L 1.12-1.27 L code = 698) PH, BLOOD (BEAKER) (test code = 7.36 1810) [id number] 17:42:00 Test Item Value Reference Range Interpretation Comments ACTIVATED CLOTTING TIME 279 sec TEST ED AT [place] [address] [facility] (test code = DIMITRIS gA [place] [address]) [id number] 17:42:00 Test Item Value Reference Range Interpretation Comments ACTIVATED CLOTTING TIME 224 sec TEST ED [facility] [place] [address] [facility] (test code = DIMITRIS Ag [place] [address]) [address] [id number] 17:42:00 Test Item Value Reference Range Interpretation Comments ACTIVATED CLOTTING TIME 158 sec TEST ED AT [place] [address] [facility] (test code = DIMITRIS Ag [place] [address]) [address] HGB/HCT (H&H) - STAT [id number] 16:30:00 Test Item Value Reference Range Interpretation Comments HEMOGLOBIN (BEAKER) (test code = 9.9 GM/DL 13.0-16.8 L 410) HEMATOCRIT (BEAKER) (test code = 29.0 % 40.0-50.0 L 411) POTASSIUM-STAT [id number] 16:30:00 Test Item Value Reference Range Interpretation Comments POTASSIUM (BEAKER) (test code = 3.7 meq/L 3.6-5.5 379) SODIUM NA-STAT [id number] 16:30:00 Test Item Value Reference Range Interpretation Comments SODIUM (BEAKER) (test code = 381) 134 meq/L 135-148 L GLUCOSE-STAT [id number] 16:30:00 Test Item Value Reference Range Interpretation Comments GLUCOSE RANDOM (BEAKER) (test code 105 mg/dL 70-110 = 652) [id number] 16:17:00 Test Item Value Reference Range Interpretation Comments ACTIVATED CLOTTING TIME 301 sec TEST ED AT [facility] 6720 (BEAKER) (test code = DIMITRIS R [place] [address]) [address] BLOOD GAS, [id number] 16:16:00 Test Item Value Reference Range Interpretation [...] (test 37.0 C code = 1818) CALCIUM, [id number] 16:11:00 Test Item Value Reference Range Interpretation Comments CALCIUM IONIZED (BEAKER) (test 1.09 mmol/L 1.12-1.27 L code = 698) PH, BLOOD (BEAKER) (test code = 7.42 1810) MR, MRA, EXTREMITY, LOWER, WITHOUT FOLLOW, WITH [id number] 17:43:00 Bilateral extremitiesNando Hdz MD [facility] FACP FSCMukesh Hdz MD [facility] FACP [facility] MUSCOGEElinical Professor [facility] HospitalCo Appellate Court Clerk of PVD Services at [facility] of Peripheral Vascular Medicine at [place] [id number] [place], [place] [email or web address] LanierFINAL REPORT MRA of the lower extremities, 28 January 2018 INDICATION: This is a72 years old male a diagnosis of peripheral vascular disease presents for assessment. This study is performed in an attempt to avoid invasive procedure, and potentially nephrotoxic contrast agent. TECHNIQUE: LUKE ACHIEVA MRI scanner. Limited axial images were obtained for planning purposes. Thereafter, during a slow bolus infusion of gadolinium, a Mobitrak technique was performed. 3-D reconstruction was performed by an independent workstation (Quickshift). Please refer to the contrast sheet scanned [...] CT scan. The proximal abdominal aorta is siletz tribe. The celiac axis, SMA are patent with [...] coil embolisation procedure as per EPIC. The siletz tribe left external iliac artery and the left common femoral artery is patent with no obstructive lesion identified except for some mild atherosclerosis. In the right, no difference to recent CT scan, the right external iliac artery has diffuse atherosclerosis identified, and is small in calibre; the above would suggest moderate to significant diffuse ofthe right external iliac artery. The right common femoral artery is patent for short distance and thereafter is occluded. In the left, the left profunda system is patent. The proximal few centimeters of the left SFA could be siletz tribe. However, there is likely a left femoral to popliteal bypass graft identified due to the course of the artery. This graft is widely patent with no proximal or distal anastomotic stenosis present. In the left lower extremity, it appears the tibioperoneal trunk is small andvery short. The left anterior tibial artery is well identified and is patent though atherosclerosis is seen, with no critical obstructive lesion identified. The dorsalis pedis artery is seen distally. The left peroneal artery is well seen down to level of the ankle. Significant diffuse disease is seenin the left posterior tibial artery. In the right, the siletz tribe right SFA is seen to be occluded. Per EPIC, patient has prior femoral to popliteal bypass graft x2. No patent graft is identified. The right popliteal artery also appears to be occluded as no enhancement is identified. In the very delayed images, with a single-vessel is identified that may represent the right peroneal artery. Confidence ofthis finding is low. CONCLUSIONS: 1. Dilation is seen in the descending thoracic aorta with maximum diameter measure approximately 5.1 x 5.1 cm, similar to recent CT scan report. 2. The proximal abdominal aorta is unremarkable. Patient is post grafting of the infrarenal abdominal aorta and from the CTscan, the left limb connects to the left [...] though thereafter, it is occluded. 4. The siletz tribe left SFA is likely occluded and a left femoral to distal popliteal bypass graft isidentified that is patent with no proximal or distal anastomotic stenosis. Essentially three-vessel runoff is seen in the left lower extremity. 5. In the right, the siletz tribe right SFA is occluded. It appears patient [...] MDReport Verified Date/Time: 01/28/2018 17:43:09 Reading Location: [facility] P047 Cardiology MRI BASI METABOLIC [id number] 07:36:00 Test Item Value Reference Range Interpretation [...] 0-0 (BEAKER) (test code = 413) PROTHROMBIN [id number] 14:15:00 Test Item Value Reference Range Interpretation [...] valves.Within 24 hours, if on CoumadinBASIC METABOLIC [id number] 06:41:00 Test Item Value Reference Range Interpretation [...] (BEAKER) (test code = 413) BLOOD GAS, [id number] 10:39:00 Test Item Value Reference Range Interpretation [...] code = 1819) 46.0 % SODIUM NA-STAT [id number] 10:39:00 Test Item Value Reference Range Interpretation Comments SODIUM (BEAKER) (test code = 381) 131 meq/L 135-148 L POTASSIUM-STAT [id number] 10:39:00 Test Item Value Reference Range Interpretation Comments POTASSIUM (BEAKER) (test code = 3.1 meq/L 3.6-5.5 L 379) GLUCOSE-STAT [id number] 10:39:00 Test Item Value Reference Range Interpretation Comments GLUCOSE RANDOM (BEAKER) (test code 121 mg/dL 70-110 H = 652) HGB/HCT (H&H) - STAT [id number] 10:39:00 Test Item Value Reference Range Interpretation Comments HEMOGLOBIN (BEAKER) (test code = 8.1 g/dL 13.0-16.8 L 410) HEMATOCRIT (BEAKER) (test code = 24.0 % 40.0-50.0 L 411) [id number] 10:10:00 Test Item Value Reference Range Interpretation Comments ACTIVATED CLOTTING TIME 224 sec TEST ED AT [facility] 6720 (BEAKER) (test code = D[place]ITRIS Ag [place] [address]) [id number] CBC (HEMOGRAM ONLY)2017-12-05 06:51:00 Test Item Value [...] (BEAKER) (test code = 413) BASIC METABOLIC [id number] 06:44:00 Test Item Value Reference Range Interpretation [...] S NOT APPLICABLE FOR DIALYSIS PATIEN TS. [id number] 12:39:00 Test Item Value Reference Range Interpretation Comments ACTIVATED CLOTTING TIME 136 sec TEST ED AT [place] [address] ([facility]) (test code = DIMITRIS Ag [place] [address]) [address] [id number] 11:51:00 Test Item Value Reference Range Interpretation Comments ACTIVATED CLOTTING TIME 147 sec TEST ED AT [place] [address] ([facility]) (test code = JERMAINEISRAEL Ag [place] [address]) [address] [id number] 09:21:00 Test Item Value Reference Range Interpretation Comments ACTIVATED CLOTTING TIME 213 sec TEST ED AT [place] [address] ([facility]) (test code = JERMAINEISRAEL Ag [place] [address]) [address] [id number] 08:58:00 Test Item Value Reference Range Interpretation Comments ACTIVATED CLOTTING TIME 191 sec TEST ED AT [place] [address] ([facility]) (test code = JERMAINEISRAEL Ag [place] [address]) [address] CT, CTA [id number] 11:56:00Addendum BeginsREPORT STATUS:A Addendum: The images were reviewed with Dr. Hdz. There is a missing dictation, specifically, despite the aortic bypass surgery the siletz tribe left common iliac artery is still patent with retrograde filling from the left external iliac artery, withaneurysmal dilation identified. Image 466, it measures approximately 4.3 x 4.2 cm in diameter. Some intraluminal thrombus is seen. This is the left common iliac artery. The left internal iliac artery is also patent, with calcification present. Signed: Juwan Ramirez MDReport Verified Date/Time: 11/27/2017 11:56:33 Reading Location: [place] [id number] Cardiology MRIAddendum EndsAddendum BeginsREPORT STATUS:A ADDENDUM: Study reviewed by radiology. Agree with the nonvascular findings asdescribed below. See guidelines below regarding 5 mm pulmonary nodule. FLEISCHNER SOCIETY GUIDELINES(2017): Recommendations apply to newly detected indeterminate nodules found incidentally in [id number] years of age or older. Risk factors include smoking history; history of lung cancer in first degree relative; exposure to radon, asbestos, or uranium. Low-risk patient:Nodule size:<6 mm: No follow-up needed.6-8 mm: CT at 6-12 months, then consider CT at 18-24 months. >8 mm: Consider CT at 3 months, PET-CT, or biopsy. High-risk patient:Nodule size:<6 mm: Optional CT at 12 months.6-8 mm: CTat 6-12 months, then CT at 18-24 months. >8 mm: Consider CT at 3 months, PET-CT, or biopsy. Signed: Adryan Barrow MDReport Verified Date/Time: 11/26/2017 18:03:42 Reading Location: [facility] P048 Angio Body Reading RoomAddendum EndsFINAL REPORT CT angiography of the thoracoabdominal aorta and pelvic arteries, 26 November 2017 INDICATION: This is a 72 year old male with aortic stenosis presents for preprocedure TAVR assessment. There is a clinical concern of aortic aneurysm. Thisstudy is performed in an attempt to avoid an invasive procedure. TECHNIQUE: Spiral acquisition before and during intravenous contrast administration using a Luke multidetector CT scanner. Images were obtained before and during the dynamic passage of intravenous contrast material. Multi-planar 3-D volume- rendering reconstruction was performed using an independent workstation [...] dose-optimisation programme, which includes automated exposure control, adjustmentof the mA and/or kV according to patient size and/or use of iterative reconstruction technique. Dosemodulation, iterative reconstruction, and/or weight based adjustment of the mA/kV was utilized to red uce the radiation dose to as low as reasonably achievable. FINDINGS: VASCULAR: The central pulmonaryartery is normal in calibre. There is no evidence of central pulmonary artery embolism. The cardiac chambers demonstrate normal atrioventricular and ventriculoarterial concordance, and systemic and pulmonary venous return. The left ventricle is normal in size. Left atrial enlargement is identified. Minimal mitral annular calcification seen in the anterior mitral valve annulus. Coronary artery originsare normal and coronary artery calcification is seen [...] arch and descending thoracic aorta has calcific andnoncalcific atherosclerosis identified. The descending thoracic aorta is [...] common iliac, and left external iliac bypass graft.No proximal anastomotic stenosis is identified. No distal [...] takeoff of the left renal artery with izrf-sz-xdtayvdp stenosis identified. Arch vessel branching pattern is [...] at image 32, measures 8 mm in diameterand the right subclavian artery, image 31, measures 8 mm in diameter. Dimensions that may be helpfulfor TAVR as follows: Mild calcification is seen [...] recommendation are as follows: CT area between 273to 345 mm2 (20 mm valve); 338 to 430 mm2 (23 mm valve); 430 to 546 mm2 (26 mm valve); 540 to 683 mm2(29 mm valve). For reference purpose, per [employer] brochure, recommendation are as follows: CT perimeter between 56.5-62.8 mm (23 mm valve); 62.8-72.3 mm (26 mm valve); 72.3- 81.7 mm (29 mm valve); and 81.7-94.2. mm (34 mm valve). Agatston Score is 4525. By planimetry, aortic valve area is 88sq mm. The sinus of Valsalva height to the takeoff of the coronary artery ostium, RCC (diastole): 14.0 mmThe sinus of Valsalva height and the takeoff of the coronary artery ostium, LCC (diastole): 14.8mm The sinus of Valsalva diameter, RCC (diastole): 32.0 mmThe sinus of Valsalva diameter, LCC (diastole): 32.6 mmThe sinus of Valsalva diameter, NCC (diastole): 34.6 mm The sinotubular junction measures approximately 28.8 x 29.8 mm. The aortic root angulation measures 49.3 degrees. The minimal and perp endicular abdominal aortic diameter measure 24.2 and 25.0 mm, respectively at image 362. There is noevidence of thoracoabdominal aortic aneurysm or stent placement present. The minimum and the perpendicular left common iliac artery measures 11.2 and 12.0 mm of the left iliac limb. The minimum and the perpendicular left external iliac artery measures 5.8 and 6.2 mm, respectively with mild tortuosity and mixture of mild to moderate noncalcific and calcific atherosclerosis present. The minimum and theperpendicular left femoral artery measures 7.6 and 8.2 mm, respectively with mild tortuosity and pwvh-if-epyvqpdj calcific atherosclerosis present. Right iliac limb is patent. However, at least moderate diffuse disease is seen in the right external iliac artery, and the minimum luminal diameter is approximately 3.0 x 3.0 mm, with a mixture of both calcific and noncalcific atherosclerosis present. Seesnapshot for details. 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 NONVASCULAR: The visualised thyroid gland appears unremarkable. The chest wall and mediastinum has no acute abnormality identified. No pericardial effusion is seen. Small lymph nodes are seen as well as calcified lymph nodes, for example in the right hilum and the left hilum indicating prior granulomatous disease. Inthe lung windows, no obvious endobronchial lesion is [...] granuloma is identified in the liver and thespleen. The adrenal glands are not enlarged. The [...] dictated, however, the ordering physician is the [employer] WORKER [employer] OF [employer] of the [facility] and therefore no recommendation would be [...] An addendum will be dictated by the Practical Nursing Teacher Radiologist regarding the nonvascular findings. Signed: Juwan Ramirez MDReport Verified Date/Time: 11/26/2017 16:25:25 Reading Location: [place] [address] Cardiology MRI Electronically signedby: JUWAN RAMIREZ M.D. on 11/27/2017 11:56 AMCT, CTA, [id number] 11:56:00Addendum BeginsREPORT STATUS:A Addendum: The images were reviewed with Dr. Hdz. There is a missing dictation, specifically, despite the aortic bypass surgery the siletz tribe left common iliac artery is still patent with retrograde filling from the left external iliac artery, withaneurysmal dilation identified. Image 466, it measures approximately 4.3 x 4.2 cm in diameter. Some intraluminal thrombus is seen. This is the left common iliac artery. The left internal iliac artery is also patent, with calcification present. Signed: Juwan Ramirez MDReport Verified Date/Time: 11/27/2017 11:56:33 Reading Location: [facility] P047 Cardiology MRIAddendum EndsAddendum BeginsREPORT STATUS:A ADDENDUM: Study reviewed by radiology. Agree with the nonvascular findings asdescribed below. See guidelines below regarding 5 mm pulmonary nodule. FLEISCHNER SOCIETY GUIDELINES(2017): Recommendations apply to newly detected indeterminate nodules found incidentally in [id number] years of age or older. Risk factors include smoking history; history of lung cancer in first degree relative; exposure to radon, asbestos, or uranium. Low-risk patient:Nodule size:<6 mm: No follow-up needed.6-8 mm: CT at 6-12 months, then consider CT at 18-24 months. >8 mm: Consider CT at 3 months, PET-CT, or biopsy. High-risk patient:Nodule size:<6 mm: Optional CT at 12 months.6-8 mm: CTat 6-12 months, then CT at 18-24 months. >8 mm: Consider CT at 3 months, PET-CT, or biopsy. Signed: Adryan Barrow MDReport Verified Date/Time: 11/26/2017 18:03:42 Reading Location: [facility] P048 Angio Body Reading RoomAddendum EndsFINAL REPORT CT angiography of the thoracoabdominal aorta and pelvic arteries, 26 November 2017 INDICATION: This is a 72 year old male with aortic stenosis presents for preprocedure TAVR assessment. There is a clinical concern of aortic aneurysm. Thisstudy is performed in an attempt to avoid an invasive procedure. TECHNIQUE: Spiral acquisition before and during intravenous contrast administration using a Luke multidetector CT scanner. Images were obtained before and during the dynamic passage of intravenous contrast material. Multi-planar 3-D volume- rendering reconstruction was performed using an independent workstation [...] dose-optimisation programme, which includes automated exposure control, adjustmentof the mA and/or kV according to patient size and/or use of iterative reconstruction technique. Dosemodulation, iterative reconstruction, and/or weight based adjustment of the mA/kV was utilized to red uce the radiation dose to as low as reasonably achievable. FINDINGS: VASCULAR: The central pulmonaryartery is normal in calibre. There is no evidence of central pulmonary artery embolism. The cardiac chambers demonstrate normal atrioventricular and ventriculoarterial concordance, and systemic and pulmonary venous return. The left ventricle is normal in size. Left atrial enlargement is identified. Minimal mitral annular calcification seen in the anterior mitral valve annulus. Coronary artery originsare normal and coronary artery calcification is seen [...] arch and descending thoracic aorta has calcific andnoncalcific atherosclerosis identified. The descending thoracic aorta is [...] common iliac, and left external iliac bypass graft.No proximal anastomotic stenosis is identified. No distal [...] takeoff of the left renal artery with mrsd-hv-qrkknnnh stenosis identified. Arch vessel branching pattern is [...] at image 32, measures 8 mm in diameterand the right subclavian artery, image 31, measures 8 mm in diameter. Dimensions that may be helpfulfor TAVR as follows: Mild calcification is seen [...] recommendation are as follows: CT area between 273to 345 mm2 (20 mm valve); 338 to 430 mm2 (23 mm valve); 430 to 546 mm2 (26 mm valve); 540 to 683 mm2(29 mm valve). For reference purpose, per [employer] brochure, recommendation are as follows: CT perimeter between 56.5-62.8 mm (23 mm valve); 62.8-72.3 mm (26 mm valve); 72.3- 81.7 mm (29 mm valve); and 81.7-94.2. mm (34 mm valve). Agatston Score is 4525. By planimetry, aortic valve area is 88sq mm. The sinus of Valsalva height to the takeoff of the coronary artery ostium, RCC (diastole): 14.0 mmThe sinus of Valsalva height and the takeoff of the coronary artery ostium, LCC (diastole): 14.8mm The sinus of Valsalva diameter, RCC (diastole): 32.0 mmThe sinus of Valsalva diameter, LCC (diastole): 32.6 mmThe sinus of Valsalva diameter, NCC (diastole): 34.6 mm The sinotubular junction measures approximately 28.8 x 29.8 mm. The aortic root angulation measures 49.3 degrees. The minimal and perp endicular abdominal aortic diameter measure 24.2 and 25.0 mm, respectively at image 362. There is noevidence of thoracoabdominal aortic aneurysm or stent placement present. The minimum and the perpendicular left common iliac artery measures 11.2 and 12.0 mm of the left iliac limb. The minimum and the perpendicular left external iliac artery measures 5.8 and 6.2 mm, respectively with mild tortuosity and mixture of mild to moderate noncalcific and calcific atherosclerosis present. The minimum and theperpendicular left femoral artery measures 7.6 and 8.2 mm, respectively with mild tortuosity and ysrc-ug-twfwxwoi calcific atherosclerosis present. Right iliac limb is patent. However, at least moderate diffuse disease is seen in the right external iliac artery, and the minimum luminal diameter is approximately 3.0 x 3.0 mm, with a mixture of both calcific and noncalcific atherosclerosis present. Seesnapshot for details. 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 NONVASCULAR: The visualised thyroid gland appears unremarkable. The chest wall and mediastinum has no acute abnormality identified. No pericardial effusion is seen. Small lymph nodes are seen as well as calcified lymph nodes, for example in the right hilum and the left hilum indicating prior granulomatous disease. Inthe lung windows, no obvious endobronchial lesion is [...] granuloma is identified in the liver and thespleen. The adrenal glands are not enlarged. The [...] dictated, however, the ordering physician is the [employer] of the [facility] and therefore no recommendation would be [...] An addendum will be dictated by the Practical Nursing Teacher Radiologist regarding the nonvascular findings. Signed: Juwan Ramirez MDReport Verified Date/Time: 11/26/2017 16:25:25 Reading Location: [place] [id number] Cardiology MRI Electronically signedby: JUWAN RAMIREZ M.D. on 11/27/2017 11:56 AMB-TYPE NATRIURETIC FACTOR (BNP)2017-11-26 18:03:00 Test Item Value Reference Range Interpretation Comments B-TYPE NATRIURETIC PEPTIDE (BEAKER) 142 pg/mL 0-100 H (test code = 700) COMPREHENSIVE METABOLIC [id number] 17:56:00 Test Item Value Reference Range Interpretation [...] NOT APPLICABLE FOR DIALYSIS PATIEN TS. PROTHROMBIN [id number] 17:33:00 Test Item Value Reference Range Interpretation [...] mechanical heart valves.CBC W/PLT COUNT & AUTO [id number] 17:24:00 Test Item Value Reference Range Interpretation [...] ABSOLUTE COUNT 0.98 K/ L 1.32-3.57 L (AKER) (test code = 414) MONOCYTES ABSOLUTE COUNT (BEAKER) 0.69 K/ L 0.30-0.82 (test code = 415) EOSINOPHILS ABSOLUTE COUNT 0.30 K/ L 0.04-0.54 (BEAKER) (test code = 416) BASOPHILS ABSOLUTE COUNT (BEAKER) 0.05 K/ L 0.01-0.08 (test code = 417) IMMATURE GRANULOCYTES-RELATIVE 0 % 0-1 PERCENT (AKER) (test code = 2801) WDSA-[id number] 12:34:00 Test Item Value Reference Range Interpretation Comments POC-CREATININE 1.1 mg/dL 0.6-1.3 TESTED AT [facility] 6720 ([facility]) (test [place] code = 1859) [address] POC-EGFR ([facility]) 65 mL/min/1.73M2 (test code = 1860) [id number] 06:22:00 Test Item Value Reference Range Interpretation Comments INR (test code = INR) 1.08 0.85-1.17 [facility]OUE[facility]55[facility]87 06:22:00 Test Item Value Reference Range Interpretation Comments PT (test code = PT) 14.2 s 12.0-14.7 [facility]GOXTWFCJO9802-47-06 16:33:00 Test Item Value Reference Range Interpretation Comments INR (test code = INR) 1.09 0.85-1.17 [facility]JrbrxopWWHIVSSAGM4854-26-14 16:33:00 Test Item Value Reference Range Interpretation Comments PTT (test code = PTT) 27.7 s 22.9-35.8 [facility] RegionOqjposuYWHLXBVYVR0882-26-89 16:33:00 Test Item Value Reference Range Interpretation Comments PT (test code = PT) 14.3 s 12.0-14.7 [facility]BgixqqtFHHCYHFVRV5397-45-10 16:33:00 Test Item Value Reference Range Interpretation Comments Platelet (test code = Platelet) 287 133-450 [facility] RegionXjtnvhdUDIQOGHKYR3424-67-49 16:33:00 Test Item Value Reference Range Interpretation Comments MPV (test code = MPV) 8.4 7.4-10.4 [facility]LgtxcvzYGCNPDXOBZ2882-26-46 16:33:00 Test Item Value Reference Range Interpretation Comments MCHC (test code = MCHC) 33.3 32.0-36.0 [facility] DallasQsfxyjiJWYZYLUKPU9475-16-56 16:33:00 Test Item Value Reference Range Interpretation Comments Hgb (test code = Hgb) 11.6 14.0-18.0 [facility] DallasTkgszgnBANYZMFQMA2982-82-40 16:33:00 Test Item Value Reference Range Interpretation Comments MCH (test code = MCH) 29.6 pg 27.0-31.0 [facility] DallasXcuzmrtSQOYVIRIGM0928-43-12 16:33:00 Test Item Value Reference Range Interpretation Comments RDW (test code = RDW) 15.0 11.5-14.5 [facility] DallasNteuckyQMBXTTLBBO7918-81-49 16:33:00 Test Item Value Reference Range Interpretation Comments MCV (test code = MCV) 88.9 80.0-94.0 [facility] DallasFjpjxipGNGZOXVLVC5787-45-29 16:33:00 Test Item Value Reference Range Interpretation Comments Hct (test code = Hct) 35.0 42.0-54.0 [facility] DallasVqauhhfIAXLUGCOIQ2516-09-04 16:33:00 Test Item Value Reference Range Interpretation Comments RBC (test code = RBC) 3.94 4.70-6.10 [facility] DallasWebwzroPIUBANSGLC9971-38-83 16:33:00 Test Item Value Reference Range Interpretation Comments WBC (test code = WBC) 11.4 3.7-10.4 [facility] DallasUeysycgQPVNIVRQYI0514-86-73 16:33:00 Test Item Value Reference Range Interpretation Comments Monocytes # (test code 1.3 See_Comment [Aut omated message] The = Monocytes #) system which generated this result tra nsmitted reference range : <=0.8. The reference r dorene was not used to int erpret this result as normal/abnormal . [facility] DallasFkecufyQIHPTZFFMV5432-64-46 16:33:00 Test Item Value Reference Range Interpretation Comments Segs-Bands # (test code = Segs-Bands #) 8.9 1.5-8.1 [facility] DallasRudbbacNZVGHLPCUW3291-52-46 16:33:00 Test Item Value Reference Range Interpretation Comments Lymphocytes # (test code = Lymphocytes 1.2 1.0-5.5 #) [facility] DallasCphwkakAFQEULOKFG8125-04-06 16:33:00 Test Item Value Reference Range Interpretation Comments Basophils # (test code 0.1 See_Comment [Aut omated message] The = Basophils #) system which generated this result tra nsmitted reference range : <=0.2. The reference r dorene was not used to int erpret this result as normal/abnormal . [facility] DallasYkezhqwPKSQTGXRTR2975-18-76 16:33:00 Test Item Value Reference Range Interpretation Comments Eosinophils (test code = 0.1 See_Comment [A utomated message] The Eosinophils) system which ge nerated this result tra nsmitted reference range : <=4.0. The reference r dorene was not used to int erpret this result as normal/abnormal . [facility] DallasErrhvxiZKTHWOLQPX7577-10-84 16:33:00 Test Item Value Reference Range Interpretation Comments Basophils (test code = 0.5 See_Comment [Aut omated message] The Basophils) system which ge nerated this result tra nsmitted reference range : <=1.0. The reference r dorene was not used to int erpret this result as normal/abnormal . [facility] DallasMgkhzxrHSEULVWTZF5663-03-46 16:33:00 Test Item Value Reference Range Interpretation Comments Monocytes (test code = Monocytes) 11.5 2.0-12.0 [facility] DallasVatcjkcIGAMLYBTWH9280-78-41 16:33:00 Test Item Value Reference Range Interpretation Comments Segs (test code = Segs) 77.6 45.0-75.0 [facility] DallasPdyxggiTXNZQMWCIJ0963-74-20 16:33:00 Test Item Value Reference Range Interpretation Comments Lymphocytes (test code = Lymphocytes) 10.3 20.0-40.0 [facility]2016-10-18 09:17:00 Test Item Value Reference Range Interpretation Comments eGFR (test code = eGFR) 89 [facility]2016-10-18 09:17:00 Test Item Value Reference Range Interpretation Comments Glucose Lvl (test code = Glucose Lvl) 104 70-99 [facility]2016-10-18 09:17:00 Test Item Value Reference Range Interpretation Comments Creatinine Lvl (test code = Creatinine 0.80 0.50-1.40 Lvl) [facility]2016-10-18 09:17:00 Test Item Value Reference Range Interpretation Comments BUN (test code = BUN) 9 7-22 [facility]2016-10-18 09:17:00 Test Item Value Reference Range Interpretation Comments Sodium Lvl (test code = Sodium Lvl) 137 135-145 [facility]2016-10-18 09:17:00 Test Item Value Reference Range Interpretation Comments Potassium Lvl (test code = Potassium 3.9 3.5-5.1 Lvl) [facility]2016-10-18 09:17:00 Test Item Value Reference Range Interpretation Comments CO2 (test code = CO2) 22 24-32 [facility]2016-10-18 09:17:00 Test Item Value Reference Range Interpretation Comments Chloride Lvl (test code = Chloride Lvl) 100 95-109 [facility]2016-10-18 09:17:00 Test Item Value Reference Range Interpretation Comments Calcium Lvl (test code = Calcium Lvl) 8.0 8.5-10.5 [facility]2016-10-18 09:17:00 Test Item Value Reference Range Interpretation Comments AGAP (test code = AGAP) 18.9 10.0-20.0 [facility]2016-10-18 09:17:00 Test Item Value Reference Range Interpretation Comments Phosphorus (test code = Phosphorus) 2.3 2.5-4.5 [facility]2016-10-18 09:17:00 Test Item Value Reference Range Interpretation Comments Magnesium Lvl (test code = Magnesium 1.7 1.8-2.4 Lvl) [facility] DallasCvgqxpkXJSFXXUEQR0416-49-00 09:17:00 Test Item Value Reference Range Interpretation Comments Monocytes (test code = Monocytes) 7.2 2.0-12.0 [facility] DallasGejeouuTYEDMEWMYV4272-72-11 09:17:00 Test Item Value Reference Range Interpretation Comments Lymphocytes (test code = Lymphocytes) 7.5 20.0-40.0 [facility] DallasZawugrsPJTBPUFYPO3637-73-26 09:17:00 Test Item Value Reference Range Interpretation Comments Segs (test code = Segs) 85.1 45.0-75.0 [facility] DallasSmiuhscDRUGATAKBE5762-82-40 09:17:00 Test Item Value Reference Range Interpretation Comments Segs-Bands # (test code = Segs-Bands #) 9.0 1.5-8.1 [facility] DallasDuxpskrMFJVHWKYDT9186-38-39 09:17:00 Test Item Value Reference Range Interpretation Comments Basophils (test code = 0.2 See_Comment [Aut omated message] The Basophils) system which ge nerated this result tra nsmitted reference range : <=1.0. The reference r dorene was not used to int erpret this result as normal/abnormal . [facility] DallasVotebumDCIJVFGZKG4723-29-62 09:17:00 Test Item Value Reference Range Interpretation Comments Monocytes # (test code 0.8 See_Comment [Aut omated message] The = Monocytes #) system which generated this result tra nsmitted reference range : <=0.8. The reference r dorene was not used to int erpret this result as normal/abnormal . [facility] DallasActefinTGCRCFUGHY9343-08-50 09:17:00 Test Item Value Reference Range Interpretation Comments Lymphocytes # (test code = Lymphocytes 0.8 1.0-5.5 #) [facility] DallasLjnduveHXSMHUAVOA0252-13-40 09:17:00 Test Item Value Reference Range Interpretation Comments MCV (test code = MCV) 88.5 80.0-94.0 [facility] DallasXikeyjwSERLWLKPGY0922-63-47 09:17:00 Test Item Value Reference Range Interpretation Comments Hct (test code = Hct) 31.9 42.0-54.0 [facility] DallasVvnjajdHJGSMLMJUW1629-50-52 09:17:00 Test Item Value Reference Range Interpretation Comments Hgb (test code = Hgb) 11.0 14.0-18.0 [facility] DallasYbjoxplDSMWQVRLIH2021-39-19 09:17:00 Test Item Value Reference Range Interpretation Comments RBC (test code = RBC) 3.61 4.70-6.10 [facility] DallasScxellbFHABZXOXAL5165-68-61 09:17:00 Test Item Value Reference Range Interpretation Comments MCH (test code = MCH) 30.6 pg 27.0-31.0 [facility] DallasBwitsjeWPNNIKWUPK3214-54-23 09:17:00 Test Item Value Reference Range Interpretation Comments WBC (test code = WBC) 10.6 3.7-10.4 [facility] DallasFrvxvpiUXGEIERWDP3631-30-42 09:17:00 Test Item Value Reference Range Interpretation Comments Platelet (test code = Platelet) 205 133-450 [facility] DallasLddtemvYQUGWIYJLX4889-51-13 09:17:00 Test Item Value Reference Range Interpretation Comments RDW (test code = RDW) 14.7 11.5-14.5 [facility]KwkykknHQRDFQNGBL8025-96-23 09:17:00 Test Item Value Reference Range Interpretation Comments MCHC (test code = MCHC) 34.6 32.0-36.0 [facility] RegionBmmaljdQZWZGKRSYU2357-03-36 09:17:00 Test Item Value Reference Range Interpretation Comments MPV (test code = MPV) 9.3 7.4-10.4 [facility]PARATHYROID OXUGRRE9216-11-53 09:17:00 Test Item Value Reference Range Interpretation Comments Ca Norm WB (test code = Ca Norm WB) 0.99 1.05-1.25 [facility] FNCFWNT0536[facility]93-28 09:17:00 Test Item Value Reference Range Interpretation Comments Ca Ion WB (test code = Ca Ion WB) 1.02 1.05-1.25 [facility]Gr8erMindsAC IDJAHPT2469-46-23 05:43:00 Test Item Value Reference Range Interpretation Comments Troponin-T (test <0.010 ng/mL See_Comment [Automated message] The code = system which ge nerated Troponin-T) this result tra nsmitted reference range : <=0.100. The re ference range was not u sed to interpret this result as normal/abnormal . [facility] SouthSimmery2016-10-17 05:43:00 Test Item Value Reference Range Interpretation Comments Troponin-I (test code no gt See_Comment [Auto mated message] The = Troponin-I) system which g enerated this result transmit jaime reference range : <=0.40. The reference r dorene was not used to interpr et this result as serenity l/abnormal. [facility] DinnerTime2016-10-17 05:43:00 Test Item Value Reference Range Interpretation Comments Total CK (test code = Total CK) 50 12-191 [facility] beneSol ELSPU6020-57-91 05:43:00 Test Item Value Reference Range Interpretation Comments Magnesium Lvl (test code = Magnesium 2.1 1.8-2.4 Lvl) [facility] SouthEnviroMission ERUEP5606-37-13 05:43:00 Test Item Value Reference Range Interpretation Comments eGFR (test code = eGFR) 88 [facility] beneSol ROIKC5082-25-28 05:43:00 Test Item Value Reference Range Interpretation Comments CO2 (test code = CO2) 23 24-32 [facility]2016-10-17 05:43:00 Test Item Value Reference Range Interpretation Comments Chloride Lvl (test code = Chloride Lvl) 100 95-109 [facility]2016-10-17 05:43:00 Test Item Value Reference Range Interpretation Comments Calcium Lvl (test code = Calcium Lvl) 7.8 8.5-10.5 [facility]2016-10-17 05:43:00 Test Item Value Reference Range Interpretation Comments AGAP (test code = AGAP) 16.2 10.0-20.0 [facility]2016-10-17 05:43:00 Test Item Value Reference Range Interpretation Comments Sodium Lvl (test code = Sodium Lvl) 135 135-145 [facility]2016-10-17 05:43:00 Test Item Value Reference Range Interpretation Comments Glucose Lvl (test code = Glucose Lvl) 78 70-99 [facility]2016-10-17 05:43:00 Test Item Value Reference Range Interpretation Comments BUN (test code = BUN) 9 7-22 [facility]2016-10-17 05:43:00 Test Item Value Reference Range Interpretation Comments Potassium Lvl (test code = Potassium 4.2 3.5-5.1 Lvl) [facility]2016-10-17 05:43:00 Test Item Value Reference Range Interpretation Comments Creatinine Lvl (test code = Creatinine 0.81 0.50-1.40 Lvl) [facility]2016-10-17 05:43:00 Test Item Value Reference Range Interpretation Comments Phosphorus (test code = Phosphorus) 3.3 2.5-4.5 [facility] DallasBhdlillERRRHGRDBN7522-94-79 05:43:00 Test Item Value Reference Range Interpretation Comments MCHC (test code = MCHC) 34.6 32.0-36.0 [facility] DallasQgcwdwaZYQIJIQWSY5605-50-59 05:43:00 Test Item Value Reference Range Interpretation Comments RDW (test code = RDW) 14.1 11.5-14.5 [facility] DallasFgkyrakFDFPPCVXYC2399-89-64 05:43:00 Test Item Value Reference Range Interpretation Comments RBC (test code = RBC) 3.69 4.70-6.10 [facility] DallasJegysoyPVIYLSZXZZ0153-30-44 05:43:00 Test Item Value Reference Range Interpretation Comments WBC (test code = WBC) 10.1 3.7-10.4 [facility] DallasFvcccojUNVJSFSKID3811-01-74 05:43:00 Test Item Value Reference Range Interpretation Comments MPV (test code = MPV) 9.0 7.4-10.4 [facility] DallasMeqdvkaDFKOZWKQNC5208-88-48 05:43:00 Test Item Value Reference Range Interpretation Comments Platelet (test code = Platelet) 234 133-450 [facility] DallasQltztlkPOGLYZWQWY8101-43-40 05:43:00 Test Item Value Reference Range Interpretation Comments MCH (test code = MCH) 30.3 pg 27.0-31.0 [facility] DallasTgfshnxVRNEWCMHFH6682-53-59 05:43:00 Test Item Value Reference Range Interpretation Comments MCV (test code = MCV) 87.7 80.0-94.0 [facility] DallasZiqqaynRTAPFTUBDN8062-17-18 05:43:00 Test Item Value Reference Range Interpretation Comments Hct (test code = Hct) 32.4 42.0-54.0 [facility] DallasVlawhqmODRMBOZTFV9258-37-97 05:43:00 Test Item Value Reference Range Interpretation Comments Hgb (test code = Hgb) 11.2 14.0-18.0 [facility] DallasTooldmcFGFTTXEKWZ6435-93-88 05:43:00 Test Item Value Reference Range Interpretation Comments Ly30 (test code = 0.2 See_Comment [Automate d message] The Ly30) system which ge nerated this result transmit jaime reference range : <=7.5. The reference range was not used to interpr et this result as serenity l/abnormal. [facility] DallasVtqscijUKXPDRBMCM3023-99-60 05:43:00 Test Item Value Reference Range Interpretation Comments TEG Data (test code = See Note (05/26/16 TEG Data) 12:43 AM) [facility] DallasGyjszayPOYPWWZBVS5021-69-42 05:43:00 Test Item Value Reference Range Interpretation Comments G-value (test code = G-value) 15.5 4.5-11.0 [facility] DallasVqirvnvBYAZURRFVB8900-42-10 05:43:00 Test Item Value Reference Range Interpretation Comments Max Amp (test code = Max Amp) 75.6 mm 50.0-70.0 [facility] DallasHcgkgewBEMOHNVRMI2785-40-07 05:43:00 Test Item Value Reference Range Interpretation Comments Coag Index (test code 5.3 See_Comment [Auto mated message] The = Coag Index) system which g enerated this result transmit jaime reference range : <=3.0. The reference range was not used to interpr et this result as serenity l/abnormal. [facility] DallasNtarntxVZWFABWVAM2281-68-85 05:43:00 Test Item Value Reference Range Interpretation Comments K-time (test code = K-time) 0.8 min 1.0-3.0 [facility] DallasJmsidxkPOKDBHNMRY4558-22-91 05:43:00 Test Item Value Reference Range Interpretation Comments Angle (test code = Angle) 78.6 degrees 53.0-72.0 [facility] DallasJreouxxDDZCMQKYED6676-56-32 05:43:00 Test Item Value Reference Range Interpretation Comments R-time (test code = R-time) 2.8 min 5.0-10.0 [facility] DallasQhodyitVYFPKSUEME0937-74-48 05:43:00 Test Item Value Reference Range Interpretation Comments TEG Interp (test Thrombelastograph results code = TEG show shortened value of R Interp) and increased values of both Angle Alpha and MA. These findings are suggestive of platelet and enzymatic hypercoagulation which may be seen in early phase of DIC. Monitor for DIC with DIC panel may be indicated. CPT:53230 [facility] DallasYnizsfcOCOKXZPCNV1702-61-71 05:43:00 Test Item Value Reference Range Interpretation Comments Monocytes (test code = Monocytes) 10.1 2.0-12.0 [facility] DallasCriqsumWLYYULLOOW2709-61-32 05:43:00 Test Item Value Reference Range Interpretation Comments Lymphocytes (test code = Lymphocytes) 13.2 20.0-40.0 [facility] DallasHslllrsVUXIDBGXFZ3820-20-82 05:43:00 Test Item Value Reference Range Interpretation Comments Segs-Bands # (test code = Segs-Bands #) 7.7 1.5-8.1 [facility] DallasJaunopvDELSAXZFMQ7417-43-57 05:43:00 Test Item Value Reference Range Interpretation Comments Basophils (test code = 0.4 See_Comment [Aut omated message] The Basophils) system which ge nerated this result tra nsmitted reference range : <=1.0. The reference r dorene was not used to int erpret this result as normal/abnormal . [facility] DallasQaftlxdJIKTAJKYJQ0629-46-97 05:43:00 Test Item Value Reference Range Interpretation Comments Eosinophils (test code = 0.1 See_Comment [A utomated message] The Eosinophils) system which ge nerated this result tra nsmitted reference range : <=4.0. The reference r dorene was not used to int erpret this result as normal/abnormal . [facility] DallasGdaonsjPLXHWUHMNM3849-66-19 05:43:00 Test Item Value Reference Range Interpretation Comments Monocytes # (test code 1.0 See_Comment [Aut omated message] The = Monocytes #) system which generated this result tra nsmitted reference range : <=0.8. The reference r dorene was not used to int erpret this result as normal/abnormal . [facility] DallasGohdmlnIEHUYHVAAN2908-85-45 05:43:00 Test Item Value Reference Range Interpretation Comments Lymphocytes # (test code = Lymphocytes 1.3 1.0-5.5 #) [facility] DallasQrhnlhmOBGNVXWNKH0984-15-39 05:43:00 Test Item Value Reference Range Interpretation Comments Segs (test code = Segs) 76.2 45.0-75.0 [facility]ATH[facility] THNGNCR5496-19-47 05:43:00 Test Item Value Reference Range Interpretation Comments Ca Ion WB (test code = Ca Ion WB) 1.11 1.05-1.25 [facility]2016-10-17 05:43:00 Test Item Value Reference Range Interpretation Comments Ca Norm WB (test code = Ca Norm WB) 1.08 1.05-1.25 [facility]2016-10-16 21:31:00 Test Item Value Reference Range Interpretation Comments eGFR (test code = eGFR) 80 [facility]2016-10-16 21:31:00 Test Item Value Reference Range Interpretation Comments AGAP (test code = AGAP) 15.3 10.0-20.0 [facility]2016-10-16 21:31:00 Test Item Value Reference Range Interpretation Comments CO2 (test code = CO2) 25 24-32 [facility]2016-10-16 21:31:00 Test Item Value Reference Range Interpretation Comments Calcium Lvl (test code = Calcium Lvl) 7.9 8.5-10.[address] [facility] [id number] 21:31:00 Test Item Value Reference Range Interpretation Comments Chloride Lvl (test code = Chloride Lvl) 100 95-[address] [facility] [id number] 21:31:00 Test Item Value Reference Range Interpretation Comments Potassium Lvl (test code = Potassium 4.3 3.5-5.1 Lvl) [facility] [id number] 21:31:00 Test Item Value Reference Range Interpretation Comments Sodium Lvl (test code = Sodium Lvl) 136 135-[address] [facility] [id number] 21:31:00 Test Item Value Reference Range Interpretation Comments Creatinine Lvl (test code = Creatinine 0.94 0.50-1.40 Lvl) [facility] [id number] 21:31:00 Test Item Value Reference Range Interpretation Comments Glucose Lvl (test code = Glucose Lvl) 113 70-99 [facility]2016-10-16 21:31:00 Test Item Value Reference Range Interpretation Comments BUN (test code = BUN) 8 7-22 [id number] 21:31:00 Test Item Value Reference Range Interpretation Comments INR (test code = INR) 1.19 0.85-1.17 [id number] 21:31:00 Test Item Value Reference Range Interpretation Comments PT (test code = PT) 15.4 s 12.0-14.7 [id number] 21:31:00 Test Item Value Reference Range Interpretation Comments PTT (test code = PTT) 34.1 s 22.9-35.8 [facility] [id number] 06:49:00 Test Item Value Reference Range Interpretation Comments Ca Ion WB (test code = Ca Ion WB) 1.07 1.05-1.25 [facility] [id number] 06:49:00 Test Item Value Reference Range Interpretation Comments Ca Norm WB (test code = Ca Norm WB) 1.04 1.05-1.25 [facility] [id number] 06:47:00 Test Item Value Reference Range Interpretation Comments Troponin-T (test <0.010 ng/mL See_Comment [Automated message] The code = system which ge nerated Troponin-T) this result tra nsmitted reference range : <=0.100. The re ference range was not u sed to interpret this result as normal/abnormal . [facility] [id number] 06:47:00 Test Item Value Reference Range Interpretation Comments Troponin-I (test code no gt See_Comment [Auto mated message] The = Troponin-I) system which g enerated this result transmit jaime reference range : <=0.40. The reference r dorene was not used to interpr et this result as serenity l/abnormal. [facility] [employer] [id number] 06:47:00 Test Item Value Reference Range Interpretation Comments Total CK (test code = Total CK) 57 12-191 [facility] [id number] 06:47:00 Test Item Value Reference Range Interpretation Comments A/G Ratio (test code = A/G Ratio) 1.1 0.7-1.6 [facility] [id number] 06:47:00 Test Item Value Reference Range Interpretation Comments Bili Indirect (test 0.4 See_Comment [Automa jaime message] The code = Bili Indirect) system which generated this result tra nsmitted reference range : <=1.0. The reference r dorene was not used to int erpret this result as normal/abnormal . [facility] [id number] 06:47:00 Test Item Value Reference Range Interpretation Comments Bili Total (test code = Bili Total) 0.6 0.2-1.3 [facility]2016-10-16 06:47:00 Test Item Value Reference Range Interpretation Comments Bili Direct (test code 0.2 See_Comment [Aut omated message] The = Bili Direct) system which generated this result tra nsmitted reference range : <=0.3. The reference r dorene was not used to int erpret this result as serenity l/abnormal. [facility] [id number] 06:47:00 Test Item Value Reference Range Interpretation Comments AST (test code = AST) 13 See_Comment [Auto mated message] The system which ge nerated this result transmit jaime reference range : <=37. The reference range was not used to interpr et this result as serenity l/abnormal. [facility] [id number] 06:47:00 Test Item Value Reference Range Interpretation Comments Alk Phos (test code = Alk Phos) 113 39-136 [facility] [id number] 06:47:00 Test Item Value Reference Range Interpretation Comments Globulin (test code = Globulin) 2.7 2.7-4.2 [facility] [id number] 06:47:00 Test Item Value Reference Range Interpretation Comments Total Protein (test code = Total 5.7 6.4-8.4 Protein) [facility] [id number] 06:47:00 Test Item Value Reference Range Interpretation Comments Albumin Lvl (test code = Albumin Lvl) 3.0 3.5-5.0 [facility] [id number] 06:47:00 Test Item Value Reference Range Interpretation Comments ALT (test code = ALT) 14 See_Comment [Auto mated message] The system which ge nerated this result transmit jaime reference range : <=65. The reference range was not used to interpr et this result as serenity l/abnormal. [facility] [id number] 06:47:00 Test Item Value Reference Range Interpretation Comments Phosphorus (test code = Phosphorus) 3.2 2.5-4.5 [facility] [id number] 06:47:00 Test Item Value Reference Range Interpretation Comments Magnesium Lvl (test code = Magnesium 1.7 1.8-2.4 Lvl) [facility] [id number] 02:09:00 Test Item Value Reference Range Interpretation Comments AB Int (test code = AB Int) Anti-E [facility] [id number] 02:09:00 Test Item Value Reference Range Interpretation Comments Path AB (test code Transfusion Medicine = Path AB) Service Note This is a 71 y/o male who was admitted on 05/24/16 for a subdural hematoma. An anti-E is detected in this patient s serum. This antibody is directed against the E antigen of the Rh blood group system. It is typically IgG in nature and forms in response to RBC sensitization via transfusion. Anti-E antibody is considered a clinically significant antibody; it has been associated with hemolytic transfusion reactions. Should RBC transfusion be necessary, E-negative crossmatch-compatible blood will be issued. Little difficulty in obtaining compatible blood is anticipated since 70% of the donor population lacks the E-antigen. The patient s electronic medical record has been reviewed for relevant information. I have reviewed the test results and concur with the resident Dr. Lillian Alcantar's interpretation. CPT: 16767-TZ [facility] [id number] 02:09:00 Test Item Value Reference Range Interpretation Comments ABO/Rh (test code = ABO/Rh) O POS [facility] [id number] 02:09:00 Test Item Value Reference Range Interpretation Comments Antibody Scrn (test Positive 1(05/24/16 code = Antibody Scrn) 9:09 PM) [id number] 02:09:00 Test Item Value Reference Range Interpretation Comments Max Amplitude Rapid (test code = Max 68 mm 52-71 Amplitude Rapid) [facility] [id number] 02:09:00 Test Item Value Reference Range Interpretation Comments G-value Rapid (test code = G-value 10.4 5.0-11.6 Rapid) [facility] [id number] 02:09:00 Test Item Value Reference Range Interpretation Comments Estimated % Lysis Rapid 0.4 See_Comment [Au tomated message] The (test code = Estimated syste m which generated % Lysis Rapid) this result t ransmitted reference range : <=7.5. The reference r dorene was not used to int erpret this result as normal/abnormal . [facility] [id number] 02:09:00 Test Item Value Reference Range Interpretation Comments ACT (TEG) Rapid (test code = ACT (TEG) 121 s 86-118 Rapid) [facility] [id number] 02:09:00 Test Item Value Reference Range Interpretation Comments Split Point Rapid (test code = Split 0.7 min Point Rapid) [facility] [id number] 02:09:00 Test Item Value Reference Range Interpretation Comments R-time Rapid (test code = R-time 0.8 min 0.4-0.7 Rapid) [facility] [id number] 02:09:00 Test Item Value Reference Range Interpretation Comments K-time Rapid (test code = K-time 0.8 min 0.6-2.3 Rapid) [facility] [id number] 02:09:00 Test Item Value Reference Range Interpretation Comments Angle Rapid (test code = Angle 80 degrees 64-80 Rapid) [facility] [id number] 02:09:00 Test Item Value Reference Range Interpretation Comments Eosinophils (test code = 1.7 See_Comment [A utomated message] The Eosinophils) system which ge nerated this result tra nsmitted reference range : <=4.0. The reference r dorene was not used to int erpret this result as normal/abnormal . [facility] [id number] 02:09:00 Test Item Value Reference Range Interpretation Comments Eosinophils # (test code 0.1 See_Comment [A utomated message] The = Eosinophils #) system whic h generated this result tra nsmitted reference range : <=0.5. The reference r dorene was not used to int erpret this result as normal/abnormal . [facility] [id number] 02:09:00 Test Item Value Reference Range Interpretation Comments Basophils # (test code 0.1 See_Comment [Aut omated message] The = Basophils #) system which generated this result tra nsmitted reference range : <=0.2. The reference r dorene was not used to int erpret this result as normal/abnormal . [facility] [id number] 02:09:00 Test Item Value Reference Range Interpretation Comments PTT (test code = PTT) 32.0 s 22.9-35.8 [facility]
[2022-05-07] MEDS ORDERED: ASPIRIN 325 MG TAB ONE (11:25)
[2022-05-07] MEDS ORDERED: HYDRALAZINE HCL 20 MG/ML VIAL ONE (11:25)
[2022-05-07 11:36] LABS: Absolute Lymphocytes (CBC) 0.7 K/uL (0.7-4.9); Hematocrit 44.1 % (39.6-49.0); Lymphocytes % 6.1 % (15.3-44.8); MCV 84.6 fL (80-100); MPV 7.6 fL (7.6-11.3); RBC Red Blood Cell Count 5.22 M/uL (4.33-5.43)
[2022-05-07 11:56] LABS: Potassium 4.2 mmol/L (3.5-5.1); Troponin High Sensitivity 11.9 pg/mL (<58.9)
[2022-05-07] MEDS ORDERED: PROMETHAZINE INJ 25 MG/ML AMP ONE (11:57)
[2022-05-07] MEDS ORDERED: MORPHINE 2 MG/ML SYR ONE (11:58)
[2022-05-07] MEDS ORDERED: METOPROLOL TARTRATE 5 MG/5 ML INJ IV ONE (11:58)
--- NOTE | 2022-05-07 12:49 | RAD REPORT ---
EXAM DESCRIPTION: CT - Angio Aorta For Dissection - 05/07/2022 12:22 pm CLINICAL HISTORY: . Chest and abd pain COMPARISON: 2015 and 2018 TECHNIQUE: Computed tomography angiography of the chest, abdomen pelvis were obtained. 100 cc Isovue 370 was administered intravenously. Coronal and sagittal reconstruction were performed. MIP 3D reconstruction was performed All CT scans are performed using dose optimization technique as appropriate and may include automated exposure control or mA/KV adjustment according to patient size. FINDINGS: A dissection involves the thoracic aorta just distal to the takeoff of the left subclavian artery. The dissection extends to the level of the thoracoabdominal aorta. Aneurysm involves the descending thoracic aorta. It is most marked within the distal descending thora cic aorta with an AP diameter 6.8 centimeters. Aneurysm proximal abdominal aorta 4 centimeters. An aortoiliac graft in place. 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 Iliac stents. 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 Celiac and SMA are patent. COPD. A lung consolidation is not present. A pericardial effusion is not seen. A pleural effusion is not noted. Hepatic and splenic granulomata. Pancreas,adrenals and kidneys demonstrate no significant abnormality. There no evidence diverticulitis. IMPRESSION: Thoracic aortic dissection distal to its a couple left subclavian artery extending to t he thoracoabdominal aorta. 6.8 centimeter aneurysm distal descending thoracic aorta
--- NOTE | 2022-05-07 13:10 | ER ---
Nurse's Notes [facility] Name: Pineda Mckeon Age: 77 yrs Sex: Male : 1945 Arrival Date: 05/07/2022 Time: 11:09 Bed 5 Private MD: Diagnosis: Aortic aneurysm of unspecified site, without rupture Presentation: 05/07 11:12 Chief complaint: Patient states: pain behind his shoulder blades since last night, also mb8 pain with urination last night. Has not urinated today. Coronavirus screen: Vaccine status: Patient reports receiving the 2nd dose of the covid vaccine. Ebola Screen: Patient negative for fever greater than or equal to 101.5 degrees Fahrenheit, and additional compatible Ebola Virus Disease symptoms Patient denies exposure to infectious person. Patient denies travel to an Ebola-affected area in the 21 days before illness onset. 11:12 Method Of Arrival: EMS mb8 11:14 Initial Sepsis Screen: Does the patient meet any 2 criteria? No. Patient's initial mb8 sepsis screen is negative. Does the patient have a suspected source of infection? No. Patient's initial sepsis screen is negative. Risk Assessment: Do you want to hurt yourself or someone else? Patient reports no desire to harm self or others. Onset of symptoms was May 06, 2022. 11:14 Acuity: NORY 3 mb8 Triage Assessment: 11:15 General: Appears uncomfortable, Behavior is calm, cooperative, appropriate for age. mb8 Pain: Complains of pain in back Pain does not radiate. Pain currently is 8 out of 10 on a pain scale. Quality of pain is described as aching. Historical: - PMHx: 11:15 AAA; blood clot in right groin; Bypass Bilateral Legs; clotting disorder; factor 5; mb8 COPD; CVA; Degenerative disc disease; descending aorta aneurism; Hypertension; Right Arm; TIA; - PSHx: 11:15 Brain; mb8 - Social history:: Smoking status: . Screenin:32 Abuse screen: Denies threats or abuse. Denies injuries from another. Nutritional jh6 screening: No deficits noted. Tuberculosis screening: No symptoms or risk factors identified. Fall Risk IV access (20 points). Assessment: 11:32 General: Appears in no apparent distress. Behavior is calm, cooperative, appropriate jh6 for age. Pain: Complains of pain in left subscapular area and right subscapular area Pain does not radiate. Pain currently is 6 out of 10 on a pain scale. Quality of pain is described as sharp, Pain began 1 day ago. Is continuous, Alleviated by nothing. 12:30 Reassessment: No changes from previously documented assessment. jh6 13:00 Reassessment: Patient and/or family updated on plan of care and expected duration. Pain jh6 level reassessed. Patient is alert, oriented x 3, equal unlabored respirations, skin warm/dry/pink. pt reporting minimal relief in pain after pain meds given, nothing making the pain better or worse. no sob and skin w/d. waiting ct results. 14:02 Reassessment: Patient is alert, oriented x 3, equal unlabored respirations, skin jh6 warm/dry/pink. daughter at bedside and family aware of need for transfer to another hospital. pt alert c.o pain to mid upper back. 14:30 Reassessment: Dr Torres advised of decreased B/P and rate of decrease. New order to [facility] reduce Labetalol drip to 1mg/min and continue titration orders as needed for increased B/P. 15:30 Reassessment: Patient and/or family updated on plan of care and expected duration. Pain jh6 level reassessed. Patient is alert, oriented x 3, equal unlabored respirations, skin warm/dry/pink. pt resting nad noted, reporting pain much better and appears like he is able to relax now. 16:30 Reassessment: No changes from previously documented assessment. Patient and/or family 6 updated on plan of care and expected duration. Pain level reassessed. Vital Signs: 11:12 BP 213 / 119; Pulse 77; Resp 20; Temp 98.9; Pulse Ox 99% ; Weight 64.86 kg; Height 5 mb8 ft. 7 in. (170.18 cm); Pain 8/10; 12:11 BP 172 / 95; Pulse 82; Resp 18; Pulse Ox 98% ; Pain 6/10; jh6 12:46 BP 150 / 98; Pulse 80; Resp 18; Pulse Ox 98% ; Pain 5/10; jh6 13:15 BP 178 / 97; Pulse 69; Resp 15; Pulse Ox 97% on R/A; Pain 6/10; jh6 13:35 BP 196 / 105; Pulse 67; Resp 15; Pulse Ox 97% ; Pain 5/10; jh6 13:45 BP 189 / 103; Pulse 66; Resp 17; Pulse Ox 96% ; Pain 6/10; jh6 13:50 BP 191 / 101; Pulse 66; Resp 17; Pulse Ox 97% ; Pain 5/10; jh6 14:05 BP 200 / 104; Pulse 68; Resp 17; Pulse Ox 96% ; Pain 6/10; jh6 14:15 BP 149 / 78; Pulse 66; Resp 14; Pulse Ox 97% ; Pain 5/10; jh6 14:25 BP 123 / 81; Pulse 65; Resp 17; Pulse Ox 97% ; Pain 5/10; jh6 14:35 BP 124 / 79; Pulse 63; Resp 17; Pulse Ox 96% ; Pain 4/10; jh6 14:45 BP 113 / 71; Pulse 62; Resp 17; Pulse Ox 94% ; Pain 4/10; jh6 15:06 BP 100 / 63; Pulse 62; Resp 16; Pulse Ox 97% ; Pain 4/10; jh6 16:00 BP 108 / 70; Pulse 70; Resp 17; Pulse Ox 97% ; Pain 4/10; jh6 16:30 BP 118 / 66; Pulse 64; Resp 17; Pulse Ox 97% ; Pain 4/10; jh6 17:00 BP 127 / 82; Pulse 60; Resp 15; Temp 98.2(O); Pulse Ox 96% on R/A; Pain 4/10; jh6 11:12 Body Mass Index 22.40 (64.86 kg, 170.18 cm) mb8 ED Course: 11:09 Patient arrived in ED. bd 11:10 Gurinder Adams is PHCP. jl9 11:10 Atif Torres MD is Attending Physician. jl9 11:11 Alessandro Ramos, CHRYSTAL is Primary Nurse. mb8 11:15 Triage completed. mb8 11:16 Arm band placed on. mb8 11:22 Initial lab(s) drawn, by me, sent to lab. Inserted saline lock: 20 gauge in right dh3 antecubital area, using aseptic technique. Blood collected. 11:33 Bed in low position. Call light in reach. Side rails up X 1. jh6 12:[address] jh6 12:24 Angio Aorta For Dissection In Process Unspecified. EDMS 12:46 Inserted saline lock: 20 gauge in right antecubital area, using aseptic technique. IV jh6 discontinued, intact, bleeding controlled, IV infiltrated while in ct. second iv started without issue and pt tolerated well. 13:12 initiated transfer to [facility]. bd 13:24 SARS RAPID Sent. kc6 13:25 Inserted saline lock: 22 gauge in left forearm, using aseptic technique. jw7 17:04 pt accepted in transfer to [facility] by dr Ho, admin approval bd given by Felicia Friend, pt going to [address] [place] [address] A bed 7a-10. Administered Medications: 11:31 Drug: Labetalol 10 mg Route: IV; Rate: calculated rate; Site: right antecubital; jh6 11:31 Drug: Aspirin 325 mg Route: PO; jh6 11:56 CANCELLED (Duplicate Order): hydrALAZINE 10 mg IVP once jl9 12:10 Drug: morphine 2 mg Route: IVP; Infused Over: 4 mins; Site: right antecubital; jh6 13:04 Follow up: Response: No change in condition jh6 12:10 Drug: Promethazine 12.5 mg Route: IVP; Site: right antecubital; jh6 13:04 Follow up: Response: No change in condition jh6 13:20 Drug: Labetalol 5 mg Route: IV; Rate: bolus; Site: right antecubital; jh6 13:20 Drug: morphine 4 mg Route: IVP; Infused Over: 4 mins; Site: right antecubital; jh6 13:47 Follow up: Response: No change in condition 6 13:57 Drug: fentaNYL (PF) 50 mcg Route: IVP; Site: left antecubital; jh6 14:12 Drug: Dilaudid (HYDROmorphone) 1 mg Route: IVP; Site: left forearm; jh6 14:25 Drug: Labetalol 2 mg/min Route: IV; Rate: calculated rate; Site: right antecubital; jh6 14:30 Follow up: Rate change 1 mg/min jh6 Medication: 12:12 VIS not applicable for this client. jh6 Outcome: 13:09 ER care complete, transfer ordered by . isabella 17:29 Transferred by helicopter to [facility]. jh6 17:29 Condition: stable 17:29 Instructed on the need for transfer. 17:41 Patient left the ED. jh6 Signatures: Dispatcher [employer] Audrey Raymond, Sandy 3 Sangeeta Novak RN RN jh6 Brandee Grewal7 Gurinder Adams jl9 Stacey Gipson 6 Alessandro Ramos RN RN mb8
--- NOTE | 2022-05-07 13:10 | EDPHYS ---
Physician Documentation [facility] Name: Pineda Mckeon Age: 77 yrs Sex: Male : 1945 Arrival Date: 05/07/2022 Time: 11:09 Bed 5 Private MD: ED Physician Atif Torres HPI: 05/07 12:31 This 77 yrs old Male presents to ER via EMS with complaints of pain between jl9 his shoulder blades that started last night. . 12:31 Onset: The symptoms/episode began/occurred last night. Severity of symptoms: Pain is jl9 currently a 5 / 10. The patient has not experienced similar symptoms in the past. Historical: - PMHx: 11:15 AAA; blood clot in right groin; Bypass Bilateral Legs; clotting disorder; factor 5; mb8 COPD; CVA; Degenerative disc disease; descending aorta aneurism; Hypertension; Right Arm; TIA; - PSHx: 11:15 Brain; mb8 - Social history:: Smoking status: . ROS: 12:31 Constitutional: Negative for fever, chills, and weight loss, Eyes: Negative for injury, jl9 pain, redness, and discharge, ENT: Negative for injury, pain, and discharge, Neck: Negative for injury, pain, and swelling. 12:31 Respiratory: Negative for shortness of breath, cough, wheezing, and pleuritic chest pain, Abdomen/GI: Negative for abdominal pain, nausea, vomiting, diarrhea, and constipation, Back: Negative for injury and pain. 12:31 MS/Extremity: Negative for injury and deformity, Skin: Negative for injury, rash, and discoloration, Neuro: Negative for headache, weakness, numbness, tingling, and seizure, Psych: Negative for depression, anxiety, suicide ideation, homicidal ideation, and hallucinations, Allergy/Immunology: Negative for hives, rash, and allergies, Endocrine: Negative for neck swelling, polydipsia, polyuria, polyphagia, and marked weight changes, Hematologic/Lymphatic: Negative for swollen nodes, abnormal bleeding, and unusual bruising. 12:31 Cardiovascular: Positive for chest pain. 12:31 : Positive for difficulty urinating. Exam: 12:32 Constitutional: This is a well developed, well nourished patient who is awake, alert, jl9 and in no acute distress. Head/Face: Normocephalic, atraumatic. Eyes: Pupils equal round and reactive to light, extra-ocular motions intact. Lids and lashes normal. Conjunctiva and sclera are non-icteric and not injected. Cornea within normal limits. Periorbital areas with no swelling, redness, or edema. ENT: Mucous membranes moist. Neck: Trachea midline, no thyromegaly or masses palpated, and no cervical lymphadenopathy. Supple, full range of motion without nuchal rigidity, or vertebral point tenderness. No Meningismus. Chest/axilla: Normal chest wall appearance and motion. Nontender with no deformity. No lesions are appreciated. Cardiovascular: Regular rate and rhythm with a normal S1 and S2. No gallops, murmurs, or rubs. Normal PMI, no JVD. No pulse deficits. Respiratory: Lungs have equal breath sounds bilaterally, clear to auscultation and percussion. No rales, rhonchi or wheezes noted. No increased work of breathing, no retractions or nasal flaring. Abdomen/GI: Soft, non-tender, with normal bowel sounds. No distension or tympany. No guarding or rebound. No evidence of tenderness throughout. Back: No spinal tenderness. No costovertebral tenderness. Full range of motion. Skin: Warm, dry with normal turgor. Normal color with no rashes, no lesions, and no evidence of cellulitis. MS/ Extremity: Pulses equal, no cyanosis. Neurovascular intact. Full, normal range of motion. Neuro: Awake and alert, GCS 15, oriented to person, place, time, and situation. Cranial nerves II-XII grossly intact. Motor strength 5/5 in all extremities. Sensory grossly intact. Cerebellar exam normal. Normal gait. Psych: Awake, alert, with orientation to person, place and time. Behavior, mood, and affect are within normal limits. Vital Signs: 11:12 BP 213 / 119; Pulse 77; Resp 20; Temp 98.9; Pulse Ox 99% ; Weight 64.86 kg; Height 5 mb8 ft. 7 in. (170.18 cm); Pain 8/10; 12:11 BP 172 / 95; Pulse 82; Resp 18; Pulse Ox 98% ; Pain 6/10; jh6 12:46 BP 150 / 98; Pulse 80; Resp 18; Pulse Ox 98% ; Pain 5/10; jh6 13:15 BP 178 / 97; Pulse 69; Resp 15; Pulse Ox 97% on R/A; Pain 6/10; 6 13:35 BP 196 / 105; Pulse 67; Resp 15; Pulse Ox 97% ; Pain 5/10; jh6 13:45 BP 189 / 103; Pulse 66; Resp 17; Pulse Ox 96% ; Pain 6/10; jh6 13:50 BP 191 / 101; Pulse 66; Resp 17; Pulse Ox 97% ; Pain 5/10; jh6 14:05 BP 200 / 104; Pulse 68; Resp 17; Pulse Ox 96% ; Pain 6/10; jh6 14:15 BP 149 / 78; Pulse 66; Resp 14; Pulse Ox 97% ; Pain 5/10; 6 14:25 BP 123 / 81; Pulse 65; Resp 17; Pulse Ox 97% ; Pain 5/10; jh6 14:35 BP 124 / 79; Pulse 63; Resp 17; Pulse Ox 96% ; Pain 4/10; 6 14:45 BP 113 / 71; Pulse 62; Resp 17; Pulse Ox 94% ; Pain 4/10; 6 15:06 BP 100 / 63; Pulse 62; Resp 16; Pulse Ox 97% ; Pain 4/10; 6 16:00 BP 108 / 70; Pulse 70; Resp 17; Pulse Ox 97% ; Pain 4/10; 6 16:30 BP 118 / 66; Pulse 64; Resp 17; Pulse Ox 97% ; Pain 4/10; 6 17:00 BP 127 / 82; Pulse 60; Resp 15; Temp 98.2(O); Pulse Ox 96% on R/A; Pain 4/10; jh6 11:12 Body Mass Index 22.40 (64.86 kg, 170.18 cm) mb8 MDM: 11:10 Patient medically screened. jl9 11:41 Data reviewed: vital signs, nurses notes. Test interpretation: by ED physician or isabella midlevel provider: ECG. 13:42 ED course: Pt evaluated by me and I just completed doc-to-doc for transfer to [facility] at [facility]. BP improving after pain meds and labetalol. . 15:46 ED course: [facility] for update, still no clear timing of rn when we can transfer patient. . 05/07 11:17 Order name: Basic Metabolic Panel; Complete Time: 12:05 05/07 11:17 Order name: CBC with Diff; Complete Time: 11:38 05/07 11:17 Order name: Troponin HS; Complete Time: 12:05 05/07 11:18 Order name: D-Dimer; Complete Time: 12:05 05/07 13:09 Order name: SARS RAPID; Complete Time: 13:47 05/07 14:06 Order name: Urine Dipstick-Ancillary; Complete Time: 14:07 EDNE 05/07 11:17 Order name: Chest Angio CT 05/07 12:13 Order name: Angio Aorta For Dissection; Complete Time: 13:05 EDNE 05/07 11:17 Order name: EKG; Complete Time: 11:18 05/07 11:17 Order name: Cardiac monitoring; Complete Time: 11:26 05/07 11:17 Order name: EKG - Nurse/Tech; Complete Time: 11:05/07 11:17 Order name: IV Saline Lock; Complete Time: 11:05/07 11:17 Order name: Labs collected and sent; Complete Time: 11:05/07 11:17 Order name: O2 Per Protocol; Complete Time: 11:05/07 11:17 Order name: O2 Sat Monitoring; Complete Time: 11:05/07 11:38 Order name: Urine Dipstick-Ancillary (obtain specimen); Complete Time: 14:04 [facility] Administered Medications: 11:31 Drug: Labetalol 10 mg Route: IV; Rate: calculated rate; Site: right antecubital; [facility] 11:31 Drug: Aspirin 325 mg Route: PO; 6 11:56 CANCELLED (Duplicate Order): hydrALAZINE [address] [facility] 12:10 Drug: morphine 2 mg Route: IVP; Infused Over: 4 mins; Site: right antecubital; [facility] 13:04 Follow up: Response: No change in condition [facility] 12:10 Drug: Promethazine 12.5 mg Route: IVP; Site: right antecubital; 6 13:04 Follow up: Response: No change in condition [facility] 13:20 Drug: Labetalol 5 mg Route: IV; Rate: bolus; Site: right antecubital; [facility] 13:20 Drug: morphine 4 mg Route: IVP; Infused Over: 4 mins; Site: right antecubital; [facility] 13:47 Follow up: Response: No change in condition [facility] 13:57 Drug: fentaNYL (PF) 50 mcg Route: IVP; Site: left antecubital; [facility] 14:12 Drug: Dilaudid (HYDROmorphone) 1 mg Route: IVP; Site: left forearm; [facility] 14:25 Drug: Labetalol 2 mg/min Route: IV; Rate: calculated rate; Site: right antecubital; [facility] 14:30 Follow up: Rate change 1 mg/min [facility] Disposition: 13:42 Co-signature as Attending Physician, Atif Torres MD. rn Disposition Summary: 05/07/22 13:09 Transfer Ordered Transfer Location: [facility] Reason: Higher level of care jl9 Condition: Serious jl9 Problem: new jl9 Symptoms: are unchanged jl9 Accepting Physician: shannan(05/07/22 17:41) jh6 Diagnosis - Aortic aneurysm of unspecified site, without rupture jl9 Forms: - Medication Reconciliation Form jl9 - SBAR form jl9 Critical care time excluding procedures: 14:35 Critical care time: Bedside Care: 35 minutes, Consultation: 5 minutes. Total time: 40 rn minutes Signatures: Dispatcher [employer] EDAtif Fuchs MD MD rn Hastedt, Jennifer, RN RN jh6 Gurinder Adams jl9 Alessandro Ramos RN RN mb8 Corrections: (The following items were deleted from the chart) 11:56 11:55 hydrALAZINE 10 mg IVP once ordered. jl9 jl9 12:12 11:24 Abdomen Pelvis W Con+CT.RAD.BRZ ordered. EDMS EDMS 12:13 11:22 Chest Angio ordered. EDMS EDMS 17:41 13:09 sd jl9 jh6
[2022-05-07] MEDS ORDERED: LABETALOL HCL 100 MG/20 ML ONE (13:14)
[2022-05-07] MEDS ORDERED: MORPHINE 4 MG/ML SYR ONE (13:14)
[2022-05-07 13:44] LABS: SARS-CoV-2 Antigen Rapid Res Negative (Negative)
[2022-05-07] MEDS ORDERED: FENTANYL CITR 100 MCG/2 ML ONE (13:54)
[2022-05-07] MEDS ORDERED: LABETALOL HCL IV SCH ×2 (14:00)
[2022-05-07 14:05] LABS: Urine Blood Trace-lysed (Negative); Urine Glucose Negative (Negative); Urine Protein Negative (Negative); Urine Specific Gravity 1.015 (1.005-1.030)
[2022-05-07] MEDS ORDERED: HYDROMORPHONE HCL 1 MG/ML INJ ONE (14:13)
--- NOTE | 2022-05-08 08:30 | EKG ---
Test Date: 2022-05-07 Test Time: 11:21:02 [place]brander: MANUEL MEASUREMENT RESULTS: Intervals: Rate: 65 SD: 176 QRSD: 96 QT: 394 QTc: 409 [place]: P: 75 SD: 176 QRS: 14 T: 69 INTERPRETIVE STATEMENTS: Normal sinus rhythm with sinus arrhythmia Normal ECG Compared to ECG 02/18/2021 16:16:09 Sinus bradycardia no longer present Electronically Signed On 05-08-22 08:26:51 CDT by Conrad Scherer
[2022-05-09 10:10] VITALS: BP 127/82; TEMP 98.2; O2SAT 96
== END 2022-05-07 17:41 | disposition short-term general hospital (02) ==
LOC: ER 11:06
DX: I71.9 Aortic aneurysm of unspecified site, without rupture (principal); I10 Essential (primary) hypertension; Z20.822 Contact with and (suspected) exposure to COVID-19
CPT/HCPCS: 93005; 85025; 80048; 36415; 85379; 81003; 84484; 71275; 74175; 99285; 87811; Q9967; J0360; J2550; J3010; J2270; J1170